=== PATIENT | female | born 1955 | race Caucasian/White ===

== ENCOUNTER → 2022-12-26 14:34 | Outpatient (CLI) | payer MEDICARE, SELFPAY ==
--- NOTE | 2022-12-26 14:36 | ECG_ITS ---
APPROVED REPORT Exam: Resting ECG HR:48 bpm ECG Measurements Heart Rate 48 AXES VT 175 P 61 QRSd 109 QRS 37 QT 435 T 65 QTc 401 Conclusion SINUS BRADYCARDIA BORDERLINE ECG UNCONFIRMED REPORT Electronically signed by : Vasile Solares MD 12/26/2022 20:20:11
== END ==
PROVIDERS: PCP Family Medicine; Visit Provider Specialist
DX: G47.30 Sleep apnea, unspecified (principal)
CPT/HCPCS: 93005; 94762

== ENCOUNTER → 2023-01-06 14:55 | Outpatient (CLI) | payer MEDICARE, SELFPAY ==
--- NOTE | 2023-01-06 15:00 | CA_ITS ---
FINAL REPORT TECHNIQUE: Color Doppler, duplex Doppler and newell scale sonography of the bilateral neck arterial vasculature was performed. Velocities were measured in the carotid arteries. Stenosis evaluation based on the validated velocity criteria. CLINICAL HISTORY: Left arm weakness, dizziness, possible TIA, HTN FINDINGS: The peak systolic velocity of the right common carotid artery is 95 cm/s. The peak systolic velocity of the right internal carotid artery is 124 cm/s and end diastolic velocity 47 cm/s. The ICA/CCA ratio is 1.3. A mild amount of plaque is present. The right external carotid artery is patent. The right vertebral artery is patent with antegrade flow. The peak systolic velocity of the left common carotid artery is 65 cm/s. The peak systolic velocity of the left internal carotid artery is 73 cm/s and end diastolic velocity 22 cm/s. The ICA/CCA ratio is 1.1. A mild amount of plaque is present. The left external carotid artery is patent.The left vertebral artery is patent with antegrade flow. IMPRESSION: Less than 50% bilateral carotid stenoses. Bilateral patent vertebral arteries with antegrade flow. If indicated, CTA or MRA could further evaluate. Reviewed, Interpreted and Dictated by Matt Bernstein III, MD Transcribed by Roxanna Guardado Authenticated and [facility]
--- NOTE | 2023-01-06 15:41 | MR_ITS ---
PROCEDURE INFORMATION: Exam: MR Head Without Contrast Exam date and time: 01/06/2023 4:02 PM Age: 67 years old Clinical indication: Weakness, extremity; Left; Additional info: Lt arm numbness, tingling TECHNIQUE: Imaging protocol: Magnetic resonance imaging of the head without contrast. COMPARISON: US CA CAROTID DUPLEX BI 01/06/2023 3:13 PM FINDINGS: Brain: No acute infarct. No hemorrhage. Involutional changes of the brain, commensurate with age. No mass effect. Cerebral ventricles: Normal. No ventriculomegaly. Bones/joints: Unremarkable. Paranasal sinuses: Normal as visualized. No acute sinusitis. Mastoid air cells: Normal as visualized. No mastoid effusion. Orbital cavities: Unremarkable. Vasculature: Abnormal flow void is present in the left transverse and sigmoid sinus extending inferiorly to involve the visualized left internal jugular vein in the neck. Soft tissues: Unremarkable. IMPRESSION: 1. No evidence of acute ischemia. 2. There is an abnormal flow void in the left transverse and sigmoid sinus as well as in the left internal jugular vein. This may be related to venous thrombosis. Recommend ultrasound of the neck to assess for jugular venous thrombus and CTV or MRV of the head to assess for dural venous sinus thrombosis.
--- NOTE | 2023-01-06 22:12 | PC.NURSE ---
speaking to AD at this time for critical finding on MRI.
--- NOTE | 2023-01-06 22:21 | PC.NURSE ---
Attempted to call pt at this time with no answer.
--- NOTE | 2023-01-06 22:29 | PC.NURSE ---
I spoke with the pt at this time and informed her that the radiologist reported a critical finding to MD Elisabeth. Elisabeth suggested the pt be evaluated immediately at or another facility with neuro available after hours. Pt verbalized understanding.
== END ==
PROVIDERS: PCP Family Medicine; Visit Provider Specialist
DX: R29.898 Other symptoms and signs involving the musculoskeletal system (principal); R29.810 Facial weakness; R20.2 Paresthesia of skin; R09.89 Other specified symptoms and signs involving the circulatory and respiratory systems
CPT/HCPCS: 70551; 93880

== ENCOUNTER → 2023-01-20 08:29 | Outpatient (CLI) | payer MEDICARE, SELFPAY ==
[2023-01-20 09:03] LABS: Blood Urea Nitrogen 18 mg/dl (7-17); Estimated Glomerular Filt Rate 55 ml/min (>60); GFR (African American) 67 ML/MIN (>60)
--- NOTE | 2023-01-20 13:48 | MR_ITS ---
FINAL REPORT CLINICAL HISTORY: Eval for venous thrombosis FINDINGS: Maximum intensity projection MRV images were reviewed. Superior sagittal sinus is widely patent. The transverse sinuses are patent. There is a dominant right sigmoid sinus. The internal cerebral veins are patent. IMPRESSION: No evidence of dural venous thrombosis. Reviewed, Interpreted and Dictated by Matt Bernstein III, MD Transcribed by Ashly Canas Authenticated and [facility]
== END ==
PROVIDERS: PCP Family Medicine; Visit Provider Specialist
DX: R29.898 Other symptoms and signs involving the musculoskeletal system (principal); R90.89 Other abnormal findings on diagnostic imaging of central nervous system
CPT/HCPCS: 36415; 70546; 82565; 84520; A9576

== ENCOUNTER → 2023-03-28 07:35 | Outpatient (CLI) | payer MEDICARE, SELFPAY ==
--- NOTE | 2023-03-28 07:35 | CT_ITS ---
FINAL REPORT CLINICAL HISTORY: Sinus thrombosis COMPARISON: MRV dated January 20, 2023 FINDINGS: Axial images of the head were obtained without and with contrast. Coronal reformatted images were also obtained. This study was performed with techniques to keep radiation doses as low as reasonably achievable (ALARA). Individualized dose reduction techniques using automated exposure control or adjustment of mA and/or kV according to the patient's size were employed. There is no evidence of intracranial hemorrhage or mass. There is no evidence of acute infarct. There is no evidence of shift of the midline structures. No skull abnormality is seen on the bone window images. No abnormal contrast enhancement is seen. There is no evidence of dural venous sinus thrombosis IMPRESSION: No acute intracranial abnormality identified. No evidence of dural venous sinus thrombosis Reviewed, Interpreted and Dictated by Matt Bernstein III, MD Transcribed by Harvey Acosta Authenticated and [facility]
[2023-03-28 07:58] LABS: Alanine Aminotransferase 21 U/L (12-78); Albumin Level 3.8 g/dl (3.5-5.0); Albumin/Globulin Ratio 1.5 (1.1-1.8); Alkaline Phosphatase 110 U/L (38-126); Anion Gap 7.5 mEq/L (5-15); Aspartate Amino Transferase 36 U/L (14-36); Bilirubin,Total 0.3 mg/dl (0.2-1.3); Blood Urea Nitrogen 32 mg/dl (7-17); Calcium 9.6 mg/dl (8.4-10.2); Carbon Dioxide 34 mmol/L (22.0-30.0); Chloride 101 mmol/L (98-107); Estimated Glomerular Filt Rate 37 ml/min (>60); GFR (African American) 45 ML/MIN (>60); Globulin 2.6 g/dL (1.3-3.2); Glucose 95 mg/dl (74-100); Potassium 3.5 mmoL/L (3.5-5.1); Sodium 139 mmol/L (136-145); Total Protein,Serum 6.4 g/dl (6.3-8.2)
== END ==
PROVIDERS: PCP Family Medicine; Visit Provider Specialist
DX: G08 Intracranial and intraspinal phlebitis and thrombophlebitis (principal); I65.21 Occlusion and stenosis of right carotid artery
CPT/HCPCS: 36415; 70470; 80053; Q9967

== ENCOUNTER → 2023-04-10 09:57 | Outpatient (CLI) | payer MEDICARE, SELFPAY ==
--- NOTE | 2023-04-10 09:57 | MR_ITS ---
FINAL REPORT TECHNIQUE: MR venography was performed both before and after the administration of intravenous contrast. 3D reconstructions were performed. CLINICAL HISTORY: HX Venous thrombosis. COMPARISON: None FINDINGS: Intracranial MR venogram: The major intracranial veins are unremarkable in appearance, without evidence of filling defects or areas of significant narrowing. No evidence of intracranial deep venous thrombosis is seen. IMPRESSION: Unremarkable intracranial MR venogram Reviewed, Interpreted and Dictated by Dilan Marie MD Transcribed by Sarah Musa Authenticated and [facility]
== END ==
PROVIDERS: PCP Family Medicine; Visit Provider Specialist
DX: G08 Intracranial and intraspinal phlebitis and thrombophlebitis (principal)
CPT/HCPCS: 70546; A9576

== ENCOUNTER → 2023-04-18 16:26 | Outpatient (CLI) | payer MEDICARE, SELFPAY ==
[2023-04-18 16:42] LABS: Basophils % 0.4 % (0.1-2.0); Eosinophils # 0.1 K/mm3 (0.0-0.4); Eosinophils % 1.3 % (0.1-12.0); Hematocrit 44.5 % (37.0-47.0); Hemoglobin 14.5 g/dL (12.2-16.2); Lymphocytes # 2.4 K/mm3 (0.7-4.5); Lymphocytes % 27.9 % (10-50); Mean Corpuscular HGB Conc 32.5 g/dL (31.8-35.4); Mean Corpuscular Hemoglobin 27.5 pg (27.0-31.2); Mean Corpuscular Volume 84.5 fl (81-99); Mean Platelet Volume 9.5 fl (7.4-10.4); Monocytes # 0.5 K/mm3 (0.1-1.0); Monocytes % 5.7 % (1.7-9.3); Neutrophils # 5.7 K/mm3 (1.8-7.8); Neutrophils % 64.7 % (37.0-80.0); Platelet Count 254 K/mm3 (142-424); Red Blood Count 5.27 M/mm3 (4.20-5.40); Red Cell Distribution Width 14.1 % (11.5-17.5); White Blood Count 8.7 K/mm3 (4.8-10.8)
[2023-04-18 18:29] LABS: Alanine Aminotransferase 27 U/L (12-78); Albumin Level 4.7 g/dl (3.5-5.0); Albumin/Globulin Ratio 1.7 (1.1-1.8); Alkaline Phosphatase 151 U/L (38-126); Anion Gap 14.3 mEq/L (5-15); Aspartate Amino Transferase 37 U/L (14-36); Bilirubin,Total 0.6 mg/dl (0.2-1.3); Blood Urea Nitrogen 21 mg/dl (7-17); Calcium 10.4 mg/dl (8.4-10.2); Carbon Dioxide 29 mmol/L (22.0-30.0); Chloride 99 mmol/L (98-107); Estimated Glomerular Filt Rate 62 ml/min (>60); GFR (African American) 75 ML/MIN (>60); Globulin 2.8 g/dL (1.3-3.2); Glucose 115 mg/dl (74-100); Potassium 3.3 mmoL/L (3.5-5.1); Sodium 139 mmol/L (136-145); Total Protein,Serum 7.5 g/dl (6.3-8.2)
[2023-04-18 18:55] LABS: Erythrocyte Sedimentation Rate 32 mm/hr (0-30); Thyroid Stimulating Hormone 1.14 uIU/mL (0.465-4.68)
[2023-04-18 19:31] LABS: Folate 9.17 ng/mL; Vitamin B12 759 pg/mL (239-931)
[2023-04-20 10:54] LABS: Rapid Plasma Reagin Ab Titer Non Reactive (NonRea<1:1)
[2023-05-05 08:32] LABS: Antinuclear Antibodies (ANA) NEGATIVE
== END ==
LOC: LAB 16:27
PROVIDERS: PCP Family Medicine; Visit Provider Specialist
DX: G08 Intracranial and intraspinal phlebitis and thrombophlebitis (principal); R41.3 Other amnesia; I10 Essential (primary) hypertension
CPT/HCPCS: 36415; 80053; 82607; 82746; 84443; 85025; 85651; 86038; 86225; 86235; 86593

== ENCOUNTER → 2023-04-20 10:45 | Outpatient (CLI) | payer MEDICARE, SELFPAY ==
--- NOTE | 2023-04-20 10:46 | MR_ITS ---
FINAL REPORT CLINICAL HISTORY: CEREBRAL VENOUS SINUS THROMBOSIS, headaches, dizziness COMPARISON: None FINDINGS: Multiple projection images of the neck venous vasculature were obtained without and with contrast. Internal jugular veins and sigmoid sinuses are patent. Multiple other veins are opacified. There is no evidence of major venous thrombosis. IMPRESSION: No evidence of major venous thrombosis. Reviewed, Interpreted and Dictated by Matt Bernstein III, MD Transcribed by Ginny Duenas Authenticated and [facility]
== END ==
PROVIDERS: PCP Family Medicine; Visit Provider Specialist
DX: G08 Intracranial and intraspinal phlebitis and thrombophlebitis (principal); R41.3 Other amnesia; R90.89 Other abnormal findings on diagnostic imaging of central nervous system
CPT/HCPCS: 70549; A9576

== ENCOUNTER → 2023-06-02 13:00 | Outpatient (CLI) | payer MEDICARE, SELFPAY ==
[2023-06-02 14:09] LABS: Alanine Aminotransferase 24 U/L (12-78); Albumin Level 3.8 g/dl (3.5-5.0); Albumin/Globulin Ratio 1.5 (1.1-1.8); Alkaline Phosphatase 114 U/L (38-126); Anion Gap 12.2 mEq/L (5-15); Aspartate Amino Transferase 33 U/L (14-36); Bilirubin,Total 0.5 mg/dl (0.2-1.3); Blood Urea Nitrogen 19 mg/dl (7-17); Calcium 9.8 mg/dl (8.4-10.2); Carbon Dioxide 29 mmol/L (22.0-30.0); Chloride 100 mmol/L (98-107); Chol/HDL Ratio 2.3 (1-3.5); Cholesterol 131 mg/dl (140-200); Estimated Glomerular Filt Rate 62 ml/min (>60); GFR (African American) 75 ML/MIN (>60); Globulin 2.6 g/dL (1.3-3.2); Glucose 110 mg/dl (74-100); HDL Cholesterol 56 mg/dl (40-60); Potassium 3.2 mmoL/L (3.5-5.1); Sodium 138 mmol/L (136-145); Total Protein,Serum 6.4 g/dl (6.3-8.2); Triglycerides 119 mg/dl (30-150); VLDL Cholesterol 24 mg/dL (0-40)
[2023-06-02 14:20] LABS: Direct LDL Cholesterol 59.12 mg/dL (100-129)
== END ==
PROVIDERS: PCP Family Medicine; Visit Provider Specialist
DX: I10 Essential (primary) hypertension; R94.5 Abnormal results of liver function studies; R42 Dizziness and giddiness
CPT/HCPCS: 36415; 80053; 80061; 93225

== ENCOUNTER → 2023-06-16 10:56 | Outpatient (CLI) | payer MEDICARE, SELFPAY ==
--- NOTE | 2023-06-16 10:57 | CA_ITS ---
APPROVED REPORT EXAM: Comprehensive 2D, Doppler, and color-flow Echocardiogram Otr Owner Operator: KYLEE Ibarra, RVS Ht: 5 ft 6 in Wt: 152lbs BSA: 1.78 HR: 89 bpm BP: 102/58 mmHg Rhythm: Irregualr Indications: diszziness, Hx-cerebral venous thrombosis, Pectus carinatum, Ex-smoker Echo Enhancing Agent Comments: TDS due to patient body habitus. 2D Dimensions IVSd 1.27 cm LVEF (Visual) 53.30 % PWd 1.00 cm LA Volume 71.70 mL LVDd 5.11 cm LA Volume Index 39.40 mL/m2 (M/F) 16-34 LVDs 3.70 cm Aortic Root 2.74 cm Left Atrium 3.04 cm LVOT 1.97 cm (M/F) 1.5-2.5 M-Mode Dimensions RVDd 2.00 cm (0.9-2.6) LA Diam 3.20 cm (1.9-4.0) LVDd 4.94 cm (3.5-5.7) Ao Diam 3.39 cm (2.0-3.7) LVDs 3.63 cm (3.5-5.7) IVSd 1.09 cm (0.6-1.1) PWd 1.03 cm (0.6-1.1) EF (Teich) 51.70% EPSs 0.61 cm FS 26.50% EDV (Teich) 115.00 mL ESV (Teich) 55.50 mL LV Diastology E Decel Time 203.00 (160-240 msec) E/A Ratio 0.67 MED E' 5.60 (< 7 cm/sec) MED A' 7.50 cm/s E'/MED E' Ratio 9.61 (>14) LAT E' 10.60 (<10 cm/sec) LAT A' 6.20 cm/s E/LAT E' Ratio 5.08 (>14) Aortic Valve LVOT Max 109.00 (70-110 cm/s) LVOT VTI 20.47 cm AoV Peak Arnoldo. 161.00 (50-130 cm/s) AO Peak GR. 10.40 mmHg AO Mean GR. 5.20 (<5 mmHg) AO VTI 30.89 (18-25 cm) KATHERINE (VTI) 2.02 (2.5-4.5 cm2) Mitral Valve MV A Velocity 80.00 (40-130 cm/s) E/A Ratio 0.67 MV Decel. Time 203.00 (160-240 ms) MV Mean Gr. 0.60 (<2mmHg) Pulmonary Valve PV Peak Velocity 88.00 (50-150 cm/s) Tricuspid Valve TR P. Velocity 212.00 cm/s RAP Estimate 10.00 mmHg RVSP 28.00 mmHg Left Ventricle The left ventricle is normal size. The left ventricular systolic function is normal. The left ventricular ejection fraction is within the normal range. There is normal left ventricular wall thickness. The septum appears asynchronous. Diastolic function is indeterminate. LVEF is 55%. Right Ventricle The right ventricle is normal size. The right ventricular systolic function is normal. Atria The left atrium is mildly dilated. The right atrium size is normal. Aortic Valve The aortic valve is mildly thickened. There is no aortic valvular stenosis. Trace aortic regurgitation. Mitral Valve The mitral valve is mildly thickened. No evidence of mitral valve stenosis. Trace mitral regurgitation. Tricuspid Valve The tricuspid valve leaflets are thin and pliable. Trace mitral regurgitation. RVSP is normal. Pulmonic Valve The pulmonary valve is normal in structure. Trace pulmonic regurgitation. Great Vessels The aortic root is normal in size. The ascending aorta is normal in size. IVC is normal in size and collapses >50% with inspiration. Pericardium There is no pericardial effusion. Other Information Study Quality: Technically Difficult Conclusion This was a technically difficult study in the setting of poor acoustic windows. Normal biventricular systolic function. Mildly dilated LA. No significant valvular stenosis or regurgitation. Electronically signed by : Mary Umana MD 06/18/2023 20:16:14
== END ==
PROVIDERS: PCP Family Medicine; Visit Provider Specialist
DX: G47.30 Sleep apnea, unspecified (principal); R42 Dizziness and giddiness
CPT/HCPCS: 93306

== ENCOUNTER → 2023-07-10 13:05 | Outpatient (POV) | payer MEDICARE, SELFPAY ==
[2023-07-10 14:07] VITALS: BP 114/43; PULSE 84; RESP 18; O2SAT 98; BMI 25.8
--- NOTE | 2023-07-10 14:22 | EXP.PAIN.OV ---
HPI Data of Consult Patient: new to practice Consult date: 07/10/23 Requesting Physician: Richard Willima CRNA Primary Care Provider: Edwardo Sheehan Family Provider: Edwardo Sheehan MD Consult Narrative Reason for consult: Lumbar back pain. Bilateral hip and leg radicular symptoms History of present illness: Ms. Marcial is a 68 year old female who comes our clinic today for initial evaluation regarding chronic low back pain she describes as constant, dull, sharp, stabbing. She rates her pain 9/10. Patient also complaining of bilateral posterior hip pain she describes as constant, dull, sharp, stabbing. Patient reports difficulty transitioning from sitting to standing. Patient has difficulty with ambulating secondary to posterior hip pain as well as lumbar back pain. Upon examination the patient has extreme point tenderness over the bilateral sacroiliac joints. Patient underwent left hip replacement December 2020. Patient doing very well in regards to the hip. However, the pain described above has become debilitating. Patient have difficulty with ADLs. Patient has difficulty transitioning from sitting to standing. Patient having difficulty ambulating. Patient reports she is unable to lie on her side left or right. Patient has positive bilateral Josue's test. Positive bilateral Gaenslen's test. Positive bilateral sacroiliac joint compression test. Patient has tried and failed conservative treatment such as physical therapy, ocular care technician, acetaminophen, NSAIDs, home exercise program. Patient's Johnie #[id number] has been reviewed and appropriate. Patient is taking alprazolam 0.5 mg 1 p.o. twice daily. Also, hydrocodone 5 mg 1 p.o. daily. These medications come from her PCP. Patient states the medication does decrease the pain to some degree. However, symptoms have intensified over the last few weeks CC: Richard William CRNA [facility] Disclaimer: The information contained in this section may have been updated after the patient was seen, as this information can be updated by other users. Medical History Bilateral bunions Surgical History H/O: hysterectomy History of cholecystectomy History of left hip replacement Family History Other Cancer Coronary artery disease Hypertension Social History (Updated 07/10/23 @ 14:08 by Matilde Lujan RN) Smoking Status: Former smoker alcohol intake: never substance use type: denies use current occupational status: retired Travel in the last 8 weeks: None household members: other housing: condominium marital status: Meds Home Medications and Allergies Home Medications Medication Instructions Recorded Confirmed Type lisinopril 10 1 tab PO DAILY 12/26/22 07/10/23 History mg-hydrochlorothiazide 12.5 mg tablet metoprolol succinate 25 mg 25 mg PO DAILY 12/26/22 07/10/23 History tablet,extended release 24 hr paroxetine HCl 20 mg tablet 20 mg PO DAILY 12/26/22 07/10/23 History alprazolam 0.5 mg tablet 0.5 mg PO BID PRN Anxiety 03/29/23 07/10/23 History atorvastatin 80 mg tablet 80 mg PO DAILY 03/29/23 07/10/23 History apixaban 5 mg tablet (Eliquis) 5 mg PO BID Cerebral venous 04/04/23 07/10/23 Rx thrombosis #60 tabs gabapentin 100 mg capsule 100 mg PO DAILY 05/30/23 07/10/23 History hydrocodone 5 mg-acetaminophen 325 1 tab PO DIRECTED PRN Pain 05/30/23 07/10/23 History mg tablet New Prescriptions to Start Prescriptions: Allergies Allergy/AdvReac Type Severity Reaction Status Date / Time No Known Allergies Allergy Verified 05/30/23 11:46 Objective Vital signs: Pulse Resp BP Pulse Ox O2 Del Method 84 18 114/43 L 98 Room Air 07/10/23 14:07 07/10/23 14:07 07/10/23 14:07 07/10/23 14:07 07/10/23 14:07 Assessment and Plan *Asses
== END ==
PROVIDERS: PCP Family Medicine; Visit Provider Nurse Anesthetist, Certified Registered
DX: M53.3 Sacrococcygeal disorders, not elsewhere classified (principal); M54.50 Low back pain, unspecified
CPT/HCPCS: 99202; G0463

== ENCOUNTER 2023-07-25 09:02 | Day surgery (SDC) | payer MEDICARE, SELFPAY ==
[2023-07-25 09:24] VITALS: BP 149/92; PULSE 107; RESP 18; TEMP 36.2; O2SAT 100; BMI 24.2
[2023-07-25 09:33] VITALS: BP 114/63; PULSE 98; RESP 20; O2SAT 97
[2023-07-25 09:38] VITALS: BP 114/63; PULSE 100; RESP 20; O2SAT 98
[2023-07-25 09:40] VITALS: BP 119/65; PULSE 81; RESP 16; O2SAT 100
--- NOTE | 2023-07-25 09:45 | P.PCN_ITS ---
Procedure Date: 07/25/23 Time: 09:45 Anesthesiologist:: Richard William CRNA Complications:: None Pre-procedure Diagnosis:: Bilateral sacroiliitis. Post-procedure Diagnosis:: Same. Indications for Procedure:: Very pleasant 68-year-old female comes our clinic today for bilateral sacroiliac joint injections. Patient has extreme point tenderness over the low lumbar back as well as bilateral posterior hip pain. She rates her pain 7/10. She has difficulty transitioning from sitting to standing. She reports difficulty ambulating secondary to low back pain. Procedure Details:: Procedure: Bilateral sacroiliac joint injections under fluoroscopy Informed consent was obtained and the risks and benefits of the procedure were explained to the patient.~ The patient was taken to the procedure room and noninvasive monitors were placed including a noninvasive blood pressure cuff and pulse oximeter.~ The patient was placed prone on the procedure table. Both hips were cleansed using Betadine as a cleansing solution. C-arm fluoroscopy was used to view the right sacroiliac joint.~ The skin and subcutaneous tissues were anesthetized using lidocaine 1.5% and a 25-gauge needle.~ After this, a 22-gauge spinal needle was inserted under fluoroscopic guidance into the inferior aspect of the right sacroiliac joint.~ Omnipaque dye was injected and good spread was seen throughout the joint.~ After this, approximately 5 mL of bupivacaine, 0.25% and Depo-Medrol, 40 mg was incrementally injected into the right sacroiliac joint. We then moved to the left sacroiliac joint.~ The skin and subcutaneous tissues were anesthetized using lidocaine 1.5% and a 25-gauge needle.~ After this, a 22- gauge spinal needle was inserted under fluoroscopic guidance into the inferior aspect of the left sacroiliac joint.~ Omnipaque dye was injected and good spread was seen throughout the joint. After this, approximately 5 mL of bupivacaine, 0.25% and Depo-Medrol, 40 mg was incrementally injected into the left sacroiliac joint.~ The patient tolerated the procedure well with no complications. The patient was observed in the Pain Clinic and then was discharged home neurologically intact. Plan and Disposition:: Patient was discharged without incident.
== END 2023-07-25 09:40 | disposition home or self-care (01) ==
PROVIDERS: PCP Family Medicine; Visit Provider Nurse Anesthetist, Certified Registered
DX: M46.1 Sacroiliitis, not elsewhere classified (principal)
CPT/HCPCS: 27096; G0260; J1040

== ENCOUNTER → 2023-08-07 11:24 | Outpatient (POV) | payer MEDICARE, SELFPAY ==
[2023-08-07 11:40] VITALS: BP 131/76; PULSE 88; RESP 18; O2SAT 98; BMI 24.2
--- NOTE | 2023-08-07 11:56 | EXP.PAIN.SOA ---
[facility] Pain Management SOAP Note Subjective:: Patient is a pleasant 68-year-old female who presents today for follow-up of bilateral SI injections on 07/25/2023. We are currently treating the patient for low back pain with bilateral hip pain, sacroiliitis. Today she rates her pain a 2 out of 10. Patient denies any new trauma or injury. Patient states she has had at least 60% improvement following these injections and feels like they are still providing additional relief. Patient does state her pain today is in her right knee and describes it as a aching, throbbing sensation that is worse with increased activity. Patient does state that the pain interferes with her ability perform activities of daily living such as cooking and cleaning. Patient states in the past she has had 1 intra-articular injection however it did not provide any additional relief. Patient states that her orthopedic doctor then submitted for the gel injections however insurance denied this. Patient denies any previous surgery in this joint. Patient is interested in any help we may be able to provide. Patient does also state that she has continued pain in her right leg however she believes this is related to her left leg being a little bit longer. Patient did have a left hip replacement back in December 2020 and since then states she will have increased pain with walking and often feels like she is uneven/unbalanced. Patient has been tried on [place] 5 mg and alprazolam 0.5 mg twice a day from outside providers. Her Johnie has been reviewed and is appropriate. Review of Systems: General: No recent weight changes, no fever, no sleep disturbances Respiratory: No cough, no shortness of air, no recurring pulmonary infections Cardiovascular/peripheral vascular: No chest pain, no palpitations, no edema, no shortness of breath Gastrointestinal: No new onset incontinence, normal bowel movements reported Genitourinary: No new onset incontinence Musculoskeletal: Right knee pain Psychiatric: [Normal mood/affect] Neurological: [Denies weakness in extremities], [denies balance issues] Objective:: Physical Exam: General: Alert and oriented x3, no acute distress, pleasant and cooperative Lungs: Respirations even and unlabored, symmetrical chest expansion Eyes: PERRL Musculoskeletal: Flexion and extension of right knee somewhat guarded secondary to pain, [antalgic gait noted] Neurological: Speech clear, no gross sensory deficit Assessment:: Low back pain with lumbar radiculopathy symptoms, bilateral hip pain, sacroiliitis, right knee pain Plan:: Patient is experiencing worsening pain in her right knee with limited range of motion. I have discussed with the patient that she may benefit from trigger point injections around her knee joint. Risk and benefits were discussed with the patient and she would like to proceed forward with this plan of care. Patient has tried and failed conservative therapy such as oral medications, heat and ice, topicals, physical therapy, at home exercise and stretching for longer than 6 weeks. I have also discussed with the patient that she may benefit from a shoe insert on her right foot to help with ambulation and worsening pain related to her length discrepancy. Patient will be scheduled for a right knee trigger point injections. Patient has been instructed to contact the clinic with any concerns before the next appointment. Dr. Forrester has reviewed this note and agrees with this plan of care. This note was dictated using voice recognition software and make contain errors or omissions. [facility] Disclaimer: The information contained in this section may have been updated after the patient was seen, as this information can be updated by other users. Medical History Bilateral bunions Surgical History H/O: hysterectomy History of cholecystectomy History of left hip replacem
== END ==
PROVIDERS: PCP Family Medicine; Visit Provider Nurse Practitioner Family
DX: M54.16 Radiculopathy, lumbar region (principal); M54.50 Low back pain, unspecified; M25.551 Pain in right hip; M25.552 Pain in left hip; M46.1 Sacroiliitis, not elsewhere classified; M25.561 Pain in right knee
CPT/HCPCS: 99212; G0463

== ENCOUNTER 2023-08-29 09:41 | Day surgery (SDC) | payer MEDICARE, SELFPAY ==
[2023-08-29 10:04] VITALS: BP 129/67; PULSE 79; RESP 16; TEMP 36.4; O2SAT 94; BMI 24.7
[2023-08-29 10:17] VITALS: BP 109/48; PULSE 73; O2SAT 94
[2023-08-29 10:19] VITALS: BP 109/48; PULSE 66; O2SAT 100
[2023-08-29 10:24] VITALS: BP 140/59; PULSE 71; RESP 16; O2SAT 94
--- NOTE | 2023-08-29 10:52 | EXP.PAIN.PRO ---
Procedure Date: 08/29/23 Time: 10:00 Anesthesiologist:: Richard William CRNA Complications:: None Pre-procedure Diagnosis:: Chronic right knee pain. DJD right knee. Myofascial pain right leg. Post-procedure Diagnosis:: Same. Indications for Procedure:: Patient is a pleasant 68-year-old female comes our clinic today with complaint of chronic right leg pain associated with right knee pain. Patient has had right intra-articular knee injections with minimal relief. She describes her right knee pain as constant, dull, aching. Patient complains of distal thigh pain as well as proximal tibial pain. She rates pain 8/10. Procedure Details:: Details of the procedure explained to the patient. Patient taken to procedure room placed in sitting position. The area over the right knee was cleansed using chlorhexidine's cleansing solution. Using a 22-gauge inch and half needle the distal quadriceps tendon was accessed medial and lateral. Each area was injected after negative aspiration with 3 cc of 1% lidocaine and 20 mg of Depo-Medrol. The same procedure was carried out over the proximal tibial tendon in 1 location. 3 cc of 1% lidocaine +20 mg epidural was injected. Patient tolerated procedure without difficulty. No complications. Plan and Disposition:: Patient was discharged without incident. Patient was reevaluated 10 minutes post procedure. She reports 100% improvement in terms of her overall right knee pain.
== END 2023-08-29 10:24 | disposition home or self-care (01) ==
PROVIDERS: PCP Family Medicine; Visit Provider Nurse Anesthetist, Certified Registered
DX: M17.11 Unilateral primary osteoarthritis, right knee (principal); M25.561 Pain in right knee; G89.29 Other chronic pain; M79.18 Myalgia, other site
CPT/HCPCS: 20551; J1040

== ENCOUNTER → 2023-09-20 11:00 | Outpatient (POV) | payer MEDICARE, SELFPAY ==
--- NOTE | 2023-09-20 11:12 | EXP.PAIN.SOA ---
[facility] Pain Management SOAP Note Subjective:: Patient is a pleasant 68-year-old female who presents today for follow-up of right knee trigger point injections on 08/29/2023. We are currently treating the patient for low back pain with bilateral hip pain, sacroiliitis, right knee pain. Today she rates her pain a 1 out of 10. Patient denies any new trauma or injury. Patient states she has had at least 75% improvement following these injections and feels like they are still providing additional relief. She states she has been able to increase her activity with decreased pain symptoms and feels overall more functional following this procedure. She does state that she still has trouble walking up stairs and feels like she has weakness along her left side. At her last visit we did discuss possibly getting a shoe insert for her right side due to feeling like she was an even or unbalanced and believed her left leg was longer than the right. Patient states she has gotten an insert and it did help significantly the first day. She states she did have additional tenderness the following day however she has started to get a little bit more used to this. She does also state that she has been experiencing worsening pain into her buttocks bilaterally. Patient does states she has some soreness to touch and that it frequently goes throughout her buttocks and into her upper legs. Patient does state the pain interferes with her ability to perform activities of daily living such as cooking and cleaning. She is interested if we can do anything for this pain. She did previously have an intra-articular injection however only had minimal relief. Patient was tried for gel injection but insurance denied this procedure. Patient does have a previous history of left hip arthroplasty. Patient has been tried on Fraser 5 mg in the past and is currently prescribed alprazolam 0.5 mg twice a day from outside providers. Her Johnie has been reviewed and is appropriate. Review of Systems: General: No recent weight changes, no fever, no sleep disturbances Respiratory: No cough, no shortness of air, no recurring pulmonary infections Cardiovascular/peripheral vascular: No chest pain, no palpitations, no edema, no shortness of breath Gastrointestinal: No new onset incontinence, normal bowel movements reported Genitourinary: No new onset incontinence Musculoskeletal: Bilateral buttocks pain Psychiatric: [Normal mood/affect] Neurological: [Denies weakness in extremities], [denies balance issues] Objective:: Physical Exam: General: Alert and oriented x3, no acute distress, pleasant and cooperative Lungs: Respirations even and unlabored, symmetrical chest expansion Eyes: PERRL Musculoskeletal: Flexion and extension of lumbar spine somewhat guarded secondary to pain, [antalgic gait noted] point tenderness along bilateral piriformis muscle Neurological: Speech clear, no gross sensory deficit Assessment:: Low back pain with bilateral hip pain, sacroiliitis, right knee pain Plan:: Patient has had significant improvement following her trigger point injections of her right knee and does not require any additional injection therapy in this joint at this time. I have discussed with the patient since she was experiencing point tenderness along her bilateral piriformis muscle that we can do trigger point injections at this location. Risk and benefits were discussed with patient and she would like to proceed forward with this plan of care. I will also order the patient a compounded cream.. Patient will be scheduled for bilateral piriformis muscle injections. Patient has been instructed to contact the clinic with any concerns before the next appointment. Dr. Forrester has reviewed this note and agrees with this plan of care. This note was dictated using voice recognition software and make contain errors or omissions. [facility] Disclaimer: The information contained in this section may have been updated after the patient was seen, as this information can be updated by other users. Medical History Bilateral bunions Surgical History H/O: hysterectomy History of cholecystectomy History of left hip replacement Family History Other Cancer Coronary artery disease Hypertension Social History Smoking Status: Former smoker alcohol intake: never substance use type: denies use current occupational status: retired Travel in the last 8 weeks: None household members: other housing: condominium marital status:
[2023-09-20 11:31] VITALS: BP 143/53; PULSE 84; RESP 18; O2SAT 96; BMI 24.2
== END ==
LOC: SC.PAIN 11:01
PROVIDERS: PCP Family Medicine; Visit Provider Nurse Practitioner Family
DX: M54.50 Low back pain, unspecified (principal); M25.551 Pain in right hip; M25.552 Pain in left hip; M46.1 Sacroiliitis, not elsewhere classified; M25.561 Pain in right knee
CPT/HCPCS: 99212; G0463

== ENCOUNTER → 2023-11-06 10:05 | Outpatient (POV) | payer MEDICARE, SELFPAY ==
[2023-11-06 11:13] VITALS: BP 128/76; PULSE 61; RESP 18; O2SAT 96; BMI 24.2
--- NOTE | 2023-11-06 12:13 | EXP.PAIN.SOA ---
[facility] Pain Management SOAP Note Subjective:: Patient is a pleasant 68-year-old female who presents today for follow-up. We are currently treating the patient for low back pain with bilateral hip pain, sacroiliitis, right knee pain. Today she rates her pain a 3 out of 10. Patient states that she is starting to experience more pain in and around her lower right buttocks. Patient states it is painful to touch. She states that the pain does interfere with her ability perform activities of daily living such as cooking and cleaning or prolonged sitting. Patient describes the pain as an aching, throbbing sensation that does radiate into all of her right buttocks area. Patient denies any problems on the left. Patient does continue to use her compounded cream with improvement however only temporarily. Patient is currently prescribed alprazolam 0.5 mg twice a day from an outside provider. Her Johnie has been reviewed and is appropriate. Review of Systems: General: No recent weight changes, no fever, no sleep disturbances Respiratory: No cough, no shortness of air, no recurring pulmonary infections Cardiovascular/peripheral vascular: No chest pain, no palpitations, no edema, no shortness of breath Gastrointestinal: No new onset incontinence, normal bowel movements reported Genitourinary: No new onset incontinence Musculoskeletal: Right buttocks pain Psychiatric: [Normal mood/affect] Neurological: [Denies weakness in extremities], [denies balance issues] Objective:: Physical Exam: General: Alert and oriented x3, no acute distress, pleasant and cooperative Lungs: Respirations even and unlabored, symmetrical chest expansion Eyes: PERRL Musculoskeletal: Flexion and extension of lumbar [spine] somewhat guarded secondary to pain, [antalgic gait noted] point tenderness along right piriformis muscle Neurological: Speech clear, no gross sensory deficit [facility] and open MRI April 30, 2022 MRI lumbar spine without contrast Findings: Grade 1 retrolisthesis of L1 on 2. There is grade 1 anterior listhesis of L3 on 4 and L4 on 5. There are postsurgical changes noted within the lumbar spine. There is ecstatic appearance and aneurysmal dilatation of the abdominal aorta that is incompletely assessed by the study. 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 L1-2: Small disc bulge with moderate articular facet disease and ligamentum flavum hypertrophy. Mild to moderate canal narrowing and moderate foraminal narrowing. L2-3: Concentric disc bulge with moderate articular facet disease and ligamentum flavum hypertrophy. Moderate to severe canal stenosis with moderate foraminal stenosis. L3-4: Disc osteophyte complex formation with advanced articular facet disease and ligamentum flavum hypertrophy. There is severe canal stenosis with fluid signal interposed between the articular facets which suggest a component of motion. L4-5: There is disc osteophyte complex formation with advanced articular facet disease and ligamentum flavum hypertrophy. Moderate canal stenosis moderate right foraminal narrowing. Mild left foraminal narrowing. Mild to moderate canal narrowing. There is suspected laminectomy defect. L5-S1: Disc osteophyte complex formation. Articular facet disease. Moderate right and mild to moderate left foraminal narrowing. Canal is patent. Suspected laminotomy defect. Assessment:: Low back pain with bilateral hip pain, sacroiliitis, right knee pain, right piriformis inflammation Plan:: Patient is experiencing worsening pain in and around her right buttocks with point tenderness at her right piriformis muscle. I have discussed with the patient that she may benefit from a right piriformis injection. Risk and benefits were discussed with the patient and she would like to proceed forward with this plan of care. I have also talked with the patient regarding her previous lumbar imaging and we will reach back out to [facility] and see if we can get a copy of this. Patient will be scheduled for a right piriformis muscle injection. Patient has been instructed to contact the clinic with any concerns before the next appointment. Dr. Forrester has reviewed this note and agrees with this plan of care. This note was dictated using voice recognition software and make contain errors or omissions. [facility] Disclaimer: The information contained in this section may have been updated after the patient was seen, as this information can be updated by other users. Medical History Bilateral bunions Surgical History H/O: hysterectomy History of cholecystectomy History of left hip replacement Family History Other Cancer Coronary artery disease Hypertension Social History Smoking Status: Former smoker alcohol intake: never substance use type: denies use current occupational status: retired Travel in the last 8 weeks: None household members: other housing: condominium marital status:
== END ==
LOC: SC.PAIN 10:06
PROVIDERS: PCP Family Medicine; Visit Provider Nurse Practitioner Family
DX: M54.50 Low back pain, unspecified (principal); M25.551 Pain in right hip; M25.552 Pain in left hip; M46.1 Sacroiliitis, not elsewhere classified; M25.561 Pain in right knee; M79.18 Myalgia, other site
CPT/HCPCS: 99212; G0463

== ENCOUNTER 2023-11-28 11:23 | Day surgery (SDC) | payer MEDICARE, SELFPAY ==
[2023-11-28 11:44] VITALS: BP 156/70; PULSE 69; RESP 20; TEMP 36.4; O2SAT 96; BMI 25.0
--- NOTE | 2023-11-28 11:57 | P.PCN_ITS ---
Procedure Date: 11/28/23 Time: 11:45 Anesthesiologist:: Richard William CRNA Complications:: None Pre-procedure Diagnosis:: Right piriformis syndrome. Post-procedure Diagnosis:: Same. Indications for Procedure:: Patient is a very pleasant 68-year-old female comes our clinic today with right piriformis syndrome pain. She complains of right buttock pain that intensifies with ambulation and/or sitting. Patient also reports difficulty transitioning from sitting to standing. Patient has also had right sacroiliitis in the past with right SI joint injection which has been very helpful. She rates her pain 7/10. Procedure Details:: Details of the procedure explained to the patient. The patient taken procedure and placed in the prone position on fluoroscopy table. The over the right buttock was cleansed using chlorhexidine as a cleansing solution. Using a 22- gauge 3-1/2 inch needle the right piriformis muscle was accessed with ease using fluoroscopy guidance. Needle position was confirmed using 0.25 mL of contrast dye with a lateral spread. After negative aspiration 3 cc of 1% lidocaine +20 mg of Depo-Medrol was injected. At the same time the needle was inserted into the lower one third of the right SI joint. 3 cc of 1% lidocaine +20 mg of Depo- Medrol was injected. Patient tolerated procedure without difficulty. There are no complications. Plan and Disposition:: Patient was discharged out incident.
[2023-11-28 12:00] VITALS: BP 150/67; PULSE 79; RESP 18; O2SAT 98
[2023-11-28] MEDS: methylPREDNISolone ACETATE 80MG/ML VIAL 80 MG (12:12)
[2023-11-28] MEDS: LIDOCAINE 1% 5ML PF VIAL 5 ML (12:12)
[2023-11-28 12:13] VITALS: BP 112/88; PULSE 88; RESP 18; O2SAT 99
[2023-11-28] MEDS: BUPIVACAINE 0.25% 10ML INJ 25 MG IJ (12:13)
[2023-11-28 12:15] VITALS: BP 112/88; PULSE 88; RESP 18; O2SAT 99
== END 2023-11-28 12:00 | disposition home or self-care (01) ==
PROVIDERS: PCP Family Medicine; Visit Provider Nurse Anesthetist, Certified Registered
DX: G57.01 Lesion of sciatic nerve, right lower limb (principal); M79.18 Myalgia, other site; M46.1 Sacroiliitis, not elsewhere classified
CPT/HCPCS: 20552; 27096; 77002; G0260; J1040

== ENCOUNTER 2023-12-13 11:19 | Outpatient (POV) | payer MEDICARE, SELFPAY ==
--- NOTE | 2023-12-13 11:39 | A.OFFVIS_ITS ---
[facility] Pain Management SOAP Note Subjective:: Patient is a pleasant 68-year-old female who presents today for follow-up of his right piriformis muscle injection on 11/28/2023. Today she rates her pain a 2 out of 10. Patient denies any new trauma or injury. She does state that she has had at least 70% relief following this injection and feels like it is still helping. Patient does state that she still will occasionally have right-sided hip pain and feels like she cannot stand up straight due to the pain within her joint. Patient does states she feels like she has more arthritis and that she may benefit from a replacement at a later date however she is not necessarily interested in that option at this time. Patient is still using her compounded cream with some improvement as well as is prescribed alprazolam from an outside provider. Her Johnie has been reviewed and is appropriate. Review of Systems: General: No recent weight changes, no fever, no sleep disturbances Respiratory: No cough, no shortness of air, no recurring pulmonary infections Cardiovascular/peripheral vascular: No chest pain, no palpitations, no edema, no shortness of breath Gastrointestinal: No new onset incontinence, normal bowel movements reported Genitourinary: No new onset incontinence Musculoskeletal: Right hip pain Psychiatric: [Normal mood/affect] Neurological: [Denies weakness in extremities], [denies balance issues] Objective:: Physical Exam: General: Alert and oriented x3, no acute distress, pleasant and cooperative Lungs: Respirations even and unlabored, symmetrical chest expansion Eyes: PERRL Musculoskeletal: Flexion and extension of right hip somewhat guarded secondary to pain, [antalgic gait noted] Neurological: Speech clear, no gross sensory deficit Assessment:: Bilateral hip pain, sacroiliitis, right knee pain, right piriformis syndrome Plan:: Patient has had significant improvement following her piriformis muscle injection and does not require any additional injection therapy at this time. I have counseled the patient that in future she may benefit from a right hip intra-articular injection. Risk and benefits were discussed with the patient we will follow-up with this at future visits. Patient will return to clinic in 1 month for reevaluation of symptoms and plan of care. Patient has been instructed to contact the clinic with any concerns before the next appointment. Dr. Forrester has reviewed this note and agrees with this plan of care. This note was dictated using voice recognition software and make contain errors or omissions. [facility] Disclaimer: The information contained in this section may have been updated after the patient was seen, as this information can be updated by other users. Medical History Bilateral bunions Surgical History H/O: hysterectomy History of cholecystectomy History of left hip replacement Family History Other Cancer Coronary artery disease Hypertension Social History (Updated 11/28/23 @ 11:45 by Kacie Phillips RN) Smoking Status: Former smoker alcohol intake: never substance use type: denies use current occupational status: retired Travel in the last 8 weeks: None household members: other housing: condominium marital status:
[2023-12-13 14:24] VITALS: BP 135/48; PULSE 66; RESP 20; O2SAT 97; BMI 24.0
== END 2023-12-13 23:59 ==
LOC: SC.PAIN 11:20
PROVIDERS: PCP Family Medicine; Visit Provider Nurse Practitioner Family
DX: M25.551 Pain in right hip (principal); M25.552 Pain in left hip; M46.1 Sacroiliitis, not elsewhere classified; M25.561 Pain in right knee; G57.01 Lesion of sciatic nerve, right lower limb
CPT/HCPCS: 99212; G0463

== ENCOUNTER 2024-01-10 13:47 | Outpatient (POV) | payer MEDICARE, SELFPAY ==
[2024-01-10 13:57] VITALS: BP 148/59; PULSE 68; RESP 16; O2SAT 97; BMI 25.8
--- NOTE | 2024-01-10 14:02 | A.OFFVIS_ITS ---
[facility] Pain Management SOAP Note Subjective:: Patient is a pleasant 48-year-old female who presents today for 1 month follow- up. Today she rates her pain a 3 out of 10 however she states the pain will get worse with increased activity. Patient does state that it is her right buttocks area that is bothering her again. Patient did previously have a right piriformis muscle injection back in the middle of November that did provide 70% relief up until the last week or so. Patient does states she is interested in repeating this injection as her pain is starting to interfere with her ability to perform activities of daily living such as cooking and cleaning. Patient denies any new trauma or injury. Patient does state that she is also starting physical therapy on Monday next week to hopefully help with her overall weakness and instability when she is walking. Patient does states she still feels like she has one leg longer than the other and that often times she cannot use her shoe inserts because the shoes do not have enough room for this. Patient is prescribed compounded cream from our office and states this does continue to provide improvement. She is prescribed alprazolam from an outside provider. Her Johnie has been reviewed and is appropriate. Review of Systems: General: No recent weight changes, no fever, no sleep disturbances Respiratory: No cough, no shortness of air, no recurring pulmonary infections Cardiovascular/peripheral vascular: No chest pain, no palpitations, no edema, no shortness of breath Gastrointestinal: No new onset incontinence, normal bowel movements reported Genitourinary: No new onset incontinence Musculoskeletal: Right buttocks pain Psychiatric: [Normal mood/affect] Neurological: [Denies weakness in extremities], [denies balance issues] Objective:: Physical Exam: General: Alert and oriented x3, no acute distress, pleasant and cooperative Lungs: Respirations even and unlabored, symmetrical chest expansion Eyes: PERRL Musculoskeletal: Flexion and extension of lumbar [spine] somewhat guarded secondary to pain, [antalgic gait noted] point tenderness along right piriformis muscle Neurological: Speech clear, no gross sensory deficit Assessment:: Right piriformis syndrome, bilateral hip pain, sacroiliitis, right lower leg pain Plan:: Patient is starting to experience worsening pain in her right buttocks with limited range of motion of her lumbar spine and point tenderness at the right piriformis muscle. Patient did previously get 70% relief with her last piriformis injection lasting approximately a month and a half. I have discussed the risk and benefits regarding repeating this injection and she would like to proceed forward with this plan of care. We will schedule the patient for a right piriformis injection. Patient has been instructed to contact the clinic with any concerns before the next appointment. Dr. Forrester has reviewed this note and agrees with this plan of care. This note was dictated using voice recognition software and make contain errors or omissions. [facility] Disclaimer: The information contained in this section may have been updated after the patient was seen, as this information can be updated by other users. Medical History Bilateral bunions Surgical History H/O: hysterectomy History of cholecystectomy History of left hip replacement Family History Other Cancer Coronary artery disease Hypertension Social History Smoking Status: Former smoker alcohol intake: never substance use type: denies use current occupational status: other Travel in the last 8 weeks: None household members: other housing: condominium marital status:
== END 2024-01-10 23:59 | disposition home or self-care (01) ==
LOC: SC.PAIN 13:48
PROVIDERS: PCP Family Medicine; Visit Provider Nurse Practitioner Family
DX: G57.01 Lesion of sciatic nerve, right lower limb (principal); M25.551 Pain in right hip; M25.552 Pain in left hip; M46.1 Sacroiliitis, not elsewhere classified; M79.661 Pain in right lower leg
CPT/HCPCS: 99212; G0463

== ENCOUNTER 2024-01-30 09:48 | Day surgery (SDC) | payer MEDICARE, SELFPAY ==
[2024-01-30 10:01] VITALS: BP 146/70; PULSE 87; RESP 18; TEMP 36.2; O2SAT 96; BMI 24.8
[2024-01-30 10:05] VITALS: BP 141/70; PULSE 82; RESP 18; O2SAT 95
[2024-01-30] MEDS: BUPIVACAINE 0.25% 10ML INJ 25 MG IJ (10:05)
[2024-01-30] MEDS: methylPREDNISolone ACETATE 80MG/ML VIAL 80 MG (10:05)
[2024-01-30] MEDS: LIDOCAINE 1% 5ML PF VIAL 5 ML (10:05)
[2024-01-30 10:06] VITALS: BP 141/70; PULSE 82; RESP 18; O2SAT 95
[2024-01-30 10:07] VITALS: BP 145/67; PULSE 75; RESP 16; O2SAT 96
--- NOTE | 2024-01-30 10:09 | EXP.PAIN.PRO ---
Procedure Date: 01/30/24 Time: 10:00 Anesthesiologist:: Richard William CRNA Complications:: None Pre-procedure Diagnosis:: Right piriformis syndrome. Post-procedure Diagnosis:: Same. Indications for Procedure:: Patient is a pleasant 68-year-old female comes our clinic today for right piriformis injection. Patient reports significant right buttock pain when sitting. Also reports difficulty transitioning from sitting to standing. Ambulation increases pain on the right. Patient has extreme point tenderness over the right buttock. Procedure Details:: Details of the procedure explained to the patient. The patient taken procedure room placed in the prone position on the fluoroscopy table. They over the right buttock was cleaned using chlorhexidine as a cleansing solution. After identifying with palpation the exact point of pain a 22-gauge 3 and half inch spinal needle was used to access the right piriformis muscle. After negative aspiration 5 cc of a solution containing 0.25% Marcaine/1% lidocaine/40 mg of Depo-Medrol was injected without difficulty. Patient tolerated procedure without difficulty. There are no complications. Plan and Disposition:: Patient was discharged without incident.
== END 2024-01-30 10:07 | disposition home or self-care (01) ==
PROVIDERS: PCP Family Medicine; Visit Provider Nurse Anesthetist, Certified Registered
DX: G57.01 Lesion of sciatic nerve, right lower limb (principal); M79.18 Myalgia, other site
CPT/HCPCS: 20552; 77002; J1010

== ENCOUNTER 2024-02-16 10:08 | Outpatient (POV) | payer MEDICARE, SELFPAY ==
[2024-02-16 10:23] VITALS: BP 155/69; PULSE 70; RESP 16; O2SAT 97; BMI 25.8
--- NOTE | 2024-02-16 11:15 | A.OFFVIS_ITS ---
[facility] Pain Management SOAP Note Subjective:: This patient is a pleasant 68-year-old female comes our clinic today for follow- up visit after receiving a right piriformis injection. She reports 80% improvement terms of her overall right buttock pain. Her main complaint today is right lateral knee pain that she describes as constant, dull, aching, sharp and stabbing. Upon examination she has extreme point tenderness over the lateral border of the right knee. Patient is requesting to see Dr. Mirza here at [facility]. We will set this up for her. I discussed in detail with the patient regarding her knee pain. I prefer she received a consultation from orthopedic surgery prior to us treating her knee. She agrees. She continues taking NSAIDs and Tylenol for the pain. She is currently enrolled in physical therapy at [facility]. This is mainly for stability with ambulation and standing. However, according to the patient they are working with her right knee as well. Objective:: Patient is awake alert [place] x 3. No acute distress. Flexion-extension cervical lumbar spine normal. Deep tendon reflexes upper lower extremities normal. Motor strength upper and lower extremities normal. There is no gross sensory deficit. Gait is normal. Assessment:: Right piriformis syndrome. DJD right knee. Chronic right knee pain. Plan:: We will set up the referral to Dr. Mirza. [facility] Disclaimer: The information contained in this section may have been updated after the patient was seen, as this information can be updated by other users. Medical History Bilateral bunions Surgical History H/O: hysterectomy History of cholecystectomy History of left hip replacement Family History Other Cancer Coronary artery disease Hypertension Social History Smoking Status: Former smoker alcohol intake: never substance use type: denies use current occupational status: other Travel in the last 8 weeks: None household members: other housing: condominium marital status:
== END 2024-02-16 23:59 | disposition home or self-care (01) ==
LOC: SC.PAIN 10:09
PROVIDERS: PCP Family Medicine; Visit Provider Nurse Anesthetist, Certified Registered
DX: G57.01 Lesion of sciatic nerve, right lower limb (principal); M17.11 Unilateral primary osteoarthritis, right knee; M25.561 Pain in right knee; G89.29 Other chronic pain
CPT/HCPCS: 99212; G0463

== ENCOUNTER 2024-05-30 13:41 | Outpatient (POV) | payer MEDICARE, SELFPAY ==
[2024-05-30 14:15] VITALS: BP 157/96; PULSE 79; RESP 16; O2SAT 96; BMI 25.0
--- NOTE | 2024-05-30 14:26 | A.OFFVIS_ITS ---
[facility] Disclaimer: The information contained in this section may have been updated after the patient was seen, as this information can be updated by other users. Medical History Bilateral bunions Surgical History H/O: hysterectomy History of cholecystectomy History of left hip replacement Family History Other Cancer Coronary artery disease Hypertension Social History Smoking Status: Former smoker alcohol intake: never substance use type: denies use current occupational status: other Travel in the last 8 weeks: None household members: other housing: condominium marital status: PM Subjective & Objective Subjective Subjective:: Patient is a pleasant 69-year-old female who presents today for 3-month follow- up. Today she rates her pain a 2 out of 10 however states as the day goes on it will get up to at least a 6 out of 10. Patient states the pain is all in her low back and bilateral hips. Patient describes it as an aching, throbbing sensation that does interfere with her ability perform activities of daily living such as cooking and cleaning. Patient does also state that she still has pain in and around her buttocks area bilaterally. Patient does state that she did end up getting the gel injections from [facility] and that it does seem like it may have helped a little however this was just done in March and they did explain that it may take some time for really to kick in. Patient does states she would like to see if we can do anything to help the overall low back and hip pain she has been experiencing. Patient has tried and failed conservative therapy including continued at home stretching exercise for longer than 12 weeks. She is prescribed alprazolam from an outside provider and compounded cream from our office. Her Johnie has been reviewed and is appropriate. Review of Systems: General: No recent weight changes, no fever, no sleep disturbances Respiratory: No cough, no shortness of air, no recurring pulmonary infections Cardiovascular/peripheral vascular: No chest pain, no palpitations, no edema, no shortness of breath Gastrointestinal: No new onset incontinence, normal bowel movements reported Genitourinary: No new onset incontinence Musculoskeletal: Low back pain, bilateral hip pain, buttocks pain Psychiatric: [Normal mood/affect] Neurological: [Denies weakness in extremities], [denies balance issues] Pain at rest (0-10 scale): 6 Objective Objective:: Physical Exam: General: Alert and oriented x3, no acute distress, pleasant and cooperative Lungs: Respirations even and unlabored, symmetrical chest expansion Eyes: PERRL Musculoskeletal: Flexion and extension of lumbar [spine] somewhat guarded secondary to pain, [antalgic gait noted] point tenderness along bilateral SIs with positive bilateral Josue's, Gin's, Gaenslen's, compression and distraction exam Neurological: Speech clear, no gross sensory deficit Has patient had previous pain injection?: No Conservative treatment options previously tried: Home exercise plan Length of treatment: Longer than 12 weeks Meds Home Medications and Allergies Home Medications ?Medication ?Instructions ?Recorded ?Confirmed ?Type lisinopril 10 1 tab PO DAILY 12/26/22 05/30/24 History mg-hydrochlorothiazide 12.5 mg tablet paroxetine HCl 20 mg tablet 20 mg PO DAILY 12/26/22 05/30/24 History alprazolam 0.5 mg tablet 0.5 mg PO BID PRN Anxiety 03/29/23 05/30/24 History cholecalciferol (vitamin D3) 125 125 mcg PO DAILY 07/11/23 05/30/24 History mcg (5,000 unit) capsule New Prescriptions to Start Prescriptions: Allergies Allergy/AdvReac Type Severity Reaction Status Date / Time No Known Allergies Allergy Verified 01/30/24 10:02 Assessment and Plan *Assessment and plan (1) Bilateral sacroiliitis: Status: Acute Category: Medical Code(s): M46.1 - Sacroiliitis, not elsewhere classified Plan Patient is experiencing significant pain throughout her low back and bilateral hips. Patient did have extreme point tenderness along her left SI and point tenderness along the right with positive bilateral Josue's, Gin's, Gaenslen's, compression and distraction exam. I did discuss with the patient that she may benefit from repeat SI injections. Patient did have these injections in the past and states that they did provide upwards of 80% relief and really has lasted up until the last few weeks. Patient did have these injections back in July 2023. Patient has tried and failed conservative therapy including continued at home stretching exercise for longer than 12 weeks. We will submit for bilateral SI injections under fluoroscopy. Patient has been instructed to contact the clinic with any concerns before the next appointment. Dr. Forrester has reviewed this note and agrees with this plan of care. This note was dictated using voice recognition software and make contain errors or omissions. All injections are used with Lidocaine or Bupivacaine and Depo Medrol.
== END 2024-05-30 23:59 | disposition home or self-care (01) ==
LOC: SC.PAIN 13:42
PROVIDERS: PCP Family Medicine; Visit Provider Nurse Practitioner Family
DX: M46.1 Sacroiliitis, not elsewhere classified (principal); Z87.891 Personal history of nicotine dependence; Z73.89 Other problems related to life management difficulty
CPT/HCPCS: 99212; G0463

== ENCOUNTER 2024-06-18 09:00 | Day surgery (SDC) | payer MEDICARE, SELFPAY ==
[2024-06-18 09:06] VITALS: BP 152/62; PULSE 70; RESP 18; TEMP 36.6; O2SAT 98; BMI 25.4
[2024-06-18] MEDS: LIDOCAINE 1% 5ML PF VIAL 5 ML (09:24)
[2024-06-18] MEDS: methylPREDNISolone ACETATE 80MG/ML VIAL 80 MG (09:24)
[2024-06-18] MEDS: BUPIVACAINE 0.25% 10ML INJ 25 MG IJ (09:24)
[2024-06-18 09:25] VITALS: BP 167/52; PULSE 79; RESP 18; O2SAT 98
[2024-06-18 09:28] VITALS: BP 147/75; BP 167/52; PULSE 69; PULSE 79; RESP 18; O2SAT 98
--- NOTE | 2024-06-18 09:32 | P.PCN_ITS ---
Procedure Date: 06/18/24 Time: 09:15 Anesthesiologist:: Richard William CRNA Complications:: None Pre-procedure Diagnosis:: Degenerative disc lumbar spine multilevels. Lumbar radiculopathy. Bilateral sacroiliitis Post-procedure Diagnosis:: Same. Indications for Procedure:: Patient is a very pleasant 69-year-old female comes our clinic today for repeat bilateral sacroiliac joint injection of cortisone and local anesthetic. Patient reports significant improvement terms of her overall low lumbar back symptoms and posterior hip pain bilaterally after previous injections in the sacroiliac joints. She reports having difficulty transitioning from sitting to standing. Difficulty sitting for any length of time. Ambulation increases the pain to some degree. She rates her pain 7/10. Procedure Details:: Procedure: Bilateral sacroiliac joint injections under fluoroscopy Informed consent was obtained and the risks and benefits of the procedure were explained to the patient.~ The patient was taken to the procedure room and noninvasive monitors were placed including a noninvasive blood pressure cuff and pulse oximeter.~ The patient was placed prone on the procedure table. Both hips were cleansed using Betadine as a cleansing solution. C-arm fluoroscopy was used to view the right sacroiliac joint.~ The skin and subcutaneous tissues were anesthetized using lidocaine 1.5% and a 25-gauge needle.~ After this, a 22-gauge spinal needle was inserted under fluoroscopic guidance into the inferior aspect of the right sacroiliac joint.~ Omnipaque dye was injected and good spread was seen throughout the joint.~ After this, approximately 5 mL of bupivacaine, 0.25% and Depo-Medrol, 40 mg was incrementally injected into the right sacroiliac joint. We then moved to the left sacroiliac joint.~ The skin and subcutaneous tissues were anesthetized using lidocaine 1.5% and a 25-gauge needle.~ After this, a 22- gauge spinal needle was inserted under fluoroscopic guidance into the inferior aspect of the left sacroiliac joint.~ Omnipaque dye was injected and good spread was seen throughout the joint. After this, approximately 5 mL of bupivacaine, 0.25% and Depo-Medrol, 40 mg was incrementally injected into the left sacroiliac joint.~ The patient tolerated the procedure well with no complications. The patient was observed in the Pain Clinic and then was discharged home neurologically intact. Plan and Disposition:: Patient was discharged without incident.
== END 2024-06-18 09:28 | disposition home or self-care (01) ==
PROVIDERS: PCP Family Medicine; Visit Provider Nurse Anesthetist, Certified Registered
DX: M46.1 Sacroiliitis, not elsewhere classified (principal); M51.16 Intervertebral disc disorders with radiculopathy, lumbar region
CPT/HCPCS: 27096; G0260; J1010

== ENCOUNTER 2024-07-10 11:25 | Outpatient (POV) | payer MEDICARE, SELFPAY ==
--- NOTE | 2024-07-10 12:10 | EXP.PAIN.SOA ---
[facility] Disclaimer: The information contained in this section may have been updated after the patient was seen, as this information can be updated by other users. Medical History Bilateral bunions Surgical History H/O: hysterectomy History of cholecystectomy History of left hip replacement Family History Other Cancer Coronary artery disease Hypertension Social History Smoking Status: Former smoker alcohol intake: never substance use type: denies use current occupational status: other Travel in the last 8 weeks: None household members: other housing: condominium marital status: PM Subjective & Objective Subjective Subjective:: Patient is a pleasant 69-year-old female who presents today for follow-up of bilateral SI injections on 06/18/2024. She rates her pain in that area a 2 out of 10. She states she has at least had 80% following those injections and feels like it still helping. She does however states she has been having more aching sensations all along her right hip on the lateral side and is very tender to touch. She rates this pain a 6 out of 10. Patient denies any new injury or trauma. She does state the pain is interfering with her ability to perform activities of daily living such as cooking and cleaning. Patient is prescribed compounded cream from our office. Her Johnie has been reviewed and is appropriate. Review of Systems: General: No recent weight changes, no fever, no sleep disturbances Respiratory: No cough, no shortness of air, no recurring pulmonary infections Cardiovascular/peripheral vascular: No chest pain, no palpitations, no edema, no shortness of breath Gastrointestinal: No new onset incontinence, normal bowel movements reported Genitourinary: No new onset incontinence Musculoskeletal: Right hip pain Psychiatric: [Normal mood/affect] Neurological: [Denies weakness in extremities], [denies balance issues] Pain at rest (0-10 scale): 6 Objective Objective:: Physical Exam: General: Alert and oriented x3, no acute distress, pleasant and cooperative Lungs: Respirations even and unlabored, symmetrical chest expansion Eyes: PERRL Musculoskeletal: Flexion and extension of right hip somewhat guarded secondary to pain, [antalgic gait noted] point tenderness along right greater trochanteric bursa Neurological: Speech clear, no gross sensory deficit Has patient had previous pain injection?: Yes Percent improvement in pain since last injection: 80% Conservative treatment options previously tried: Home exercise plan Length of treatment: Longer than 12 weeks Meds Home Medications and Allergies Home Medications ?Medication ?Instructions ?Recorded ?Confirmed ?Type lisinopril 10 1 tab PO DAILY 12/26/22 06/18/24 History mg-hydrochlorothiazide 12.5 mg tablet paroxetine HCl 20 mg tablet 20 mg PO DAILY 12/26/22 06/18/24 History alprazolam 0.5 mg tablet 0.5 mg PO BID PRN Anxiety 03/29/23 06/18/24 History cholecalciferol (vitamin D3) 125 125 mcg PO DAILY 07/11/23 06/18/24 History mcg (5,000 unit) capsule New Prescriptions to Start Prescriptions: Allergies Allergy/AdvReac Type Severity Reaction Status Date / Time No Known Allergies Allergy Verified 06/18/24 09:08 Assessment and Plan *Assessment and plan (1) Greater trochanteric bursitis of right hip: Status: Acute Category: Medical Code(s): M70.61 - Trochanteric bursitis, right hip Plan Patient is experiencing worsening pain in and around her right hip with point tenderness at her right greater trochanteric bursa. I did discuss with patient that she may benefit from bursa injection. Risk and benefits were discussed with the patient and she would like to proceed forward with this plan of care. Patient has tried and failed conservative therapy including continued at home stretching exercise for longer than 12 weeks. Patient will be scheduled for right greater trochanteric bursa injection under fluoroscopy. Patient has been instructed to contact the clinic with any concerns before the next appointment. Dr. Forrester has reviewed this note and agrees with this plan of care. This note was dictated using voice recognition software and make contain errors or omissions. All injections are used with Lidocaine or Bupivacaine and Depo Medrol.
[2024-07-10 14:02] VITALS: BP 171/77; PULSE 78; RESP 16; O2SAT 98; BMI 25.0
== END 2024-07-10 23:59 | disposition home or self-care (01) ==
LOC: SC.PAIN 11:26
PROVIDERS: PCP Family Medicine; Visit Provider Nurse Practitioner Family
DX: M70.61 Trochanteric bursitis, right hip (principal); Z87.891 Personal history of nicotine dependence; Z73.89 Other problems related to life management difficulty
CPT/HCPCS: 99212; G0463

== ENCOUNTER 2024-07-23 13:48 | Day surgery (SDC) | payer MEDICARE, SELFPAY ==
[2024-07-23 14:00] VITALS: BP 133/64; PULSE 81; RESP 16; TEMP 36.5; O2SAT 94; BMI 25.0
[2024-07-23] MEDS: methylPREDNISolone ACETATE 80MG/ML VIAL 80 MG (14:11)
[2024-07-23] MEDS: LIDOCAINE 1% 5ML PF VIAL 5 ML (14:12)
[2024-07-23] MEDS: BUPIVACAINE 0.25% 10ML INJ 25 MG IJ (14:12)
--- NOTE | 2024-07-23 14:18 | P.PCN_ITS ---
Procedure Date: 07/23/24 Time: 14:15 Anesthesiologist:: Richard William CRNA Complications:: None Pre-procedure Diagnosis:: Right trochanteric bursitis Post-procedure Diagnosis:: Same Indications for Procedure:: Patient is a pleasant 69-year-old female who comes our clinic today for a right trochanteric bursa injection of cortisone and local anesthetic. Patient describes right lateral hip pain as constant, sharp, stabbing. She has difficulty lying on the right side. She reports pain with ambulation. She rates her pain 7/10. Procedure Details:: Procedure: Right trochanteric bursa injection under fluoroscopy We then moved to the right trochanteric bursa.~ C-arm fluoroscopy was used to view the left greater trochanter.~ The skin and subcutaneous tissues overlying the right greater trochanter were anesthetized using lidocaine, 1.5% and a 25- gauge needle.~ After this, a 22-gauge spinal needle was inserted and advanced until it contacted the right greater trochanter.~ Dye was injected and good spread was seen throughout the right trochanteric bursa. After this, approximately 5 mL of bupivacaine, 0.25% and Depo-Medrol, 40 mg was incrementally injected into the right right trochanteric bursa.~ The patient tolerated the procedure well with no complications. Plan and Disposition:: Patient was discharged without incident.
[2024-07-23 14:29] VITALS: BP 128/69; PULSE 65; RESP 16; O2SAT 96
== END 2024-07-23 14:29 | disposition home or self-care (01) ==
PROVIDERS: PCP Family Medicine; Visit Provider Nurse Anesthetist, Certified Registered
DX: M70.61 Trochanteric bursitis, right hip (principal)
CPT/HCPCS: 20610; 77002; J1010

== ENCOUNTER 2024-08-07 14:21 | Outpatient (POV) | payer MEDICARE, SELFPAY ==
[2024-08-07 14:39] VITALS: BP 137/60; PULSE 69; RESP 18; O2SAT 98; BMI 25.0
--- NOTE | 2024-08-07 14:51 | EXP.PAIN.SOA ---
[facility] Disclaimer: The information contained in this section may have been updated after the patient was seen, as this information can be updated by other users. Medical History Bilateral bunions Surgical History H/O: hysterectomy History of cholecystectomy History of left hip replacement Family History Other Cancer Coronary artery disease Hypertension Social History Smoking Status: Former smoker alcohol intake: never substance use type: denies use current occupational status: retired Travel in the last 8 weeks: None household members: [facility] marital status: PM Subjective & Objective Subjective Subjective:: Patient is a pleasant 69-year-old female who presents today for follow-up of right bursa injection on 07/23/2024. Today she rates her pain a 0 out of 10. She denies any other changes. She states that this injection has provided 100% relief and that she is still doing wonderful. Her Johnie has been reviewed and is appropriate. Review of Systems: General: No recent weight changes, no fever, no sleep disturbances Respiratory: No cough, no shortness of air, no recurring pulmonary infections Cardiovascular/peripheral vascular: No chest pain, no palpitations, no edema, no shortness of breath Gastrointestinal: No new onset incontinence, normal bowel movements reported Genitourinary: No new onset incontinence Musculoskeletal: Low back pain Psychiatric: [Normal mood/affect] Neurological: [Denies weakness in extremities], [denies balance issues] Pain at rest (0-10 scale): 0 Objective Objective:: Physical Exam: General: Alert and oriented x3, no acute distress, pleasant and cooperative Lungs: Respirations even and unlabored, symmetrical chest expansion Eyes: PERRL Musculoskeletal: Flexion and extension of lumbar [spine] within normal limits Neurological: Speech clear, no gross sensory deficit Has patient had previous pain injection?: Yes Percent improvement in pain since last injection: 100% Conservative treatment options previously tried: Home exercise plan Length of treatment: Longer than 12 weeks Meds Home Medications and Allergies Home Medications ?Medication ?Instructions ?Recorded ?Confirmed ?Type lisinopril 10 1 tab PO DAILY 12/26/22 08/07/24 History mg-hydrochlorothiazide 12.5 mg tablet paroxetine HCl 20 mg tablet 20 mg PO DAILY 12/26/22 08/07/24 History alprazolam 0.5 mg tablet 0.5 mg PO BID PRN Anxiety 03/29/23 08/07/24 History cholecalciferol (vitamin D3) 125 125 mcg PO DAILY 07/11/23 08/07/24 History mcg (5,000 unit) capsule New Prescriptions to Start Prescriptions: Allergies Allergy/AdvReac Type Severity Reaction Status Date / Time No Known Allergies Allergy Verified 06/18/24 09:08 Assessment and Plan *Assessment and plan (1) Greater trochanteric bursitis of right hip: Status: Acute Category: Medical Code(s): M70.61 - Trochanteric bursitis, right hip Plan Patient has had significant improvement and does not require any additional injection therapy at this time. Patient will return to clinic in 1 month for reevaluation of symptoms and plan of care. Patient has been instructed to contact the clinic with any concerns before the next appointment. Dr. Forrester has reviewed this note and agrees with this plan of care. This note was dictated using voice recognition software and make contain errors or omissions. All injections are used with Lidocaine or Bupivacaine and Depo Medrol.
== END 2024-08-07 23:59 | disposition home or self-care (01) ==
LOC: SC.PAIN 14:22
PROVIDERS: PCP Family Medicine; Visit Provider Nurse Practitioner Family
DX: M70.61 Trochanteric bursitis, right hip (principal); Z96.642 Presence of left artificial hip joint; Z87.891 Personal history of nicotine dependence
CPT/HCPCS: 99212; G0463

== ENCOUNTER 2024-10-07 14:40 | Outpatient (POV) | payer MEDICARE, SELFPAY ==
--- NOTE | 2024-10-07 15:41 | A.OFFVIS_ITS ---
[facility] Disclaimer: The information contained in this section may have been updated after the patient was seen, as this information can be updated by other users. Medical History Bilateral bunions Surgical History H/O: hysterectomy History of cholecystectomy History of left hip replacement Family History Other Cancer Coronary artery disease Hypertension Social History Smoking Status: Former smoker alcohol intake: never substance use type: denies use current occupational status: retired Travel in the last 8 weeks: None household members: other housing: condominium marital status: PM Subjective & Objective Subjective Subjective:: Patient is a pleasant 69-year-old female who presents today for 2-month follow- up. Today she rates her pain a 2 out of 10. She states overall her low back and hips have been doing okay. She does state that she has been having more issues with her left shoulder and is unsure whether or not if she has done anything specific or is more arthritis. Patient denies any new injuries or falls. She states that the pain is not constant but comes and goes based off activity. Patient states she notices it more with lifting an object in her left hand. She states at that time it will just give out at the shoulder joint and denies any altered licensed life and health agent or feeling like what ever she is lifting is going to fall. Patient denies any prior surgery in this joint. Her Johnie has been reviewed and is appropriate. Review of Systems: General: No recent weight changes, no fever, no sleep disturbances Respiratory: No cough, no shortness of air, no recurring pulmonary infections Cardiovascular/peripheral vascular: No chest pain, no palpitations, no edema, no shortness of breath Gastrointestinal: No new onset incontinence, normal bowel movements reported Genitourinary: No new onset incontinence Musculoskeletal: Left shoulder pain Psychiatric: [Normal mood/affect] Neurological: [Denies weakness in extremities], [denies balance issues] Pain at rest (0-10 scale): 2 Objective Objective:: Physical Exam: General: Alert and oriented x3, no acute distress, pleasant and cooperative Lungs: Respirations even and unlabored, symmetrical chest expansion Eyes: PERRL Musculoskeletal: Flexion and extension of left shoulder somewhat guarded secondary to pain Neurological: Speech clear, no gross sensory deficit Has patient had previous pain injection?: No Conservative treatment options previously tried: Home exercise plan Length of treatment: Longer than 12 weeks Meds Home Medications and Allergies Home Medications ?Medication ?Instructions ?Recorded ?Confirmed ?Type lisinopril 10 1 tab PO DAILY 12/26/22 08/07/24 History mg-hydrochlorothiazide 12.5 mg tablet paroxetine HCl 20 mg tablet 20 mg PO DAILY 12/26/22 08/07/24 History alprazolam 0.5 mg tablet 0.5 mg PO BID PRN Anxiety 03/29/23 08/07/24 History cholecalciferol (vitamin D3) 125 125 mcg PO DAILY 07/11/23 08/07/24 History mcg (5,000 unit) capsule New Prescriptions to Start Prescriptions: Allergies Allergy/AdvReac Type Severity Reaction Status Date / Time No Known Allergies Allergy Verified 06/18/24 09:08 Assessment and Plan *Assessment and plan (1) Left shoulder pain: Status: Acute Category: Medical Code(s): M25.512 - Pain in left shoulder Plan I did review over with the patient that I will order an x-ray of her left shoulder with the plan to order advanced imaging in future. Patient was c ounseled that we can see about injections if the pain does not get any better or becomes more consistent. Patient agrees with this plan of care. Patient will return to clinic in 2 weeks following her x-ray imaging. Patient has been instructed to contact the clinic with any concerns before the next appointment. Dr. Forrester has reviewed this note and agrees with this plan of care. This note was dictated using voice recognition software and make contain errors or omissions. All injections are used with Lidocaine, Bupivacaine and Depo Medrol. Occasionally urine drug screen is needed to verify patient's compliance with our office pain contract. This is ordered based off specific treatments related to chronic pain with the potential to abuse certain medications.
--- NOTE | 2024-10-07 15:48 | XR_ITS ---
FINAL REPORT CLINICAL HISTORY: LEFT SHOULDER PAIN COMPARISON: None FINDINGS: LEFT SHOULDER 3 views of the left shoulder were obtained. There is no acute fracture or dislocation. Visualized joint spaces are normally aligned. There is prominent ectasia and unfolding of the thoracic aorta. IMPRESSION: No acute bony abnormality. Prominent ectasia and unfolding of the thoracic aorta. Consider two-view chest for further evaluation. Reviewed, Interpreted and Dictated by Pollo Burkett MD Transcribed by Ginny Duenas Authenticated and [facility]
[2024-10-07 15:56] VITALS: BP 195/78; PULSE 82; RESP 18; O2SAT 97; BMI 24.2
== END 2024-10-07 23:59 | disposition home or self-care (01) ==
PROVIDERS: PCP Family Medicine; Visit Provider Nurse Practitioner Family
DX: M25.512 Pain in left shoulder (principal); Z87.891 Personal history of nicotine dependence; Z96.642 Presence of left artificial hip joint
CPT/HCPCS: 73030; 99212; G0463

== ENCOUNTER 2024-10-10 11:45 | Outpatient (CLI) | payer MEDICARE, SELFPAY ==
--- NOTE | 2024-10-10 11:53 | XR_ITS ---
FINAL REPORT TECHNIQUE: Chest PA & Lateral CLINICAL HISTORY: DILATED THORACICV AORTA COMPARISON: None FINDINGS: 2 views of the chest were performed. The heart size is mildly enlarged. Prominent aortic arch is probably due to a combination of ectasia and tortuosity. There is no acute cardiopulmonary process. There are no pleural effusions. There is no pneumothorax. The bony thorax appears intact. IMPRESSION: No acute cardiopulmonary process. Prominent aortic arch, likely due to combination of ectasia and tortuosity. Reviewed, Interpreted and Dictated by Pollo Burkett MD Transcribed by Ginny Duenas Authenticated and [facility]
== END 2024-10-10 23:59 | disposition home or self-care (01) ==
LOC: RAD 11:50
PROVIDERS: PCP Family Medicine; Visit Provider Nurse Practitioner Family
DX: I77.810 Thoracic aortic ectasia (principal)
CPT/HCPCS: 71046

== ENCOUNTER 2024-11-29 09:29 | Outpatient (CLI) | payer MEDICARE, SELFPAY ==
--- NOTE | 2024-11-29 09:30 | CT_ITS ---
FINAL REPORT TECHNIQUE: The patient was injected with IV contrast. Axial images were obtained through the chest in a PE protocol. 3-D reconstruction images were also performed. Individualized dose reduction techniques using automated exposure control or adjustment of the MA and/or KV according to patient's size were employed. CLINICAL HISTORY: abnl cxr COMPARISON: None FINDINGS: There is diffuse aneurysmal dilatation of the thoracic aorta. The ascending aorta measures up to 4.8 cm in diameter. The proximal descending thoracic aorta immediately distal to the origin of the left subclavian artery measures up to 3.6 cm in diameter. The mid descending thoracic aorta measures up to 5.8 cm in diameter and at the level of the diaphragmatic hiatus 4.9 cm in diameter. Mural thrombus is seen throughout the descending thoracic aorta which is partially calcified. There is no axillary adenopathy. There is no hilar or mediastinal adenopathy. The heart size is normal. There is no pericardial or pleural effusion. Limited images of the upper abdomen are unremarkable. No suspicious infiltrate or nodule is identified. Mild scarring is noted at the left lung base. IMPRESSION: Diffuse aneurysmal dilatation of the thoracic aorta with ascending measuring up to 4.2 cm and proximal descending measuring up to 6.3 cm. Reviewed, Interpreted and Dictated by Pollo Burkett MD Transcribed by Ginny Duenas Authenticated and [facility]
--- NOTE | 2024-11-29 09:30 | CA_ITS ---
APPROVED REPORT EXAM: Comprehensive 2D, Doppler, and color-flow Echocardiogram Parish Worker: Merary King RT(R) Ht: 5 ft 6 in Wt: 154lbs BSA: 1.79 BP: 152/56 mmHg Indications: atypical angina, ex smoker, pectus carinatum 2D Dimensions LVEF ([place]'s) 62.90 % F: 54 - 74 LV Volume 94.80 mL F: 46 - 106 LV Volume Index 53.0 mL/m2 F: 29 - 61 EF AP4 67.30 % EF AP2 56.8 % EF BP 62.9 % GL Strain -15.7 % M-Mode Dimensions RVDd 2.68 cm (0.9-2.6) LA Diam 3.54 cm (1.9-4.0) LVDd 4.71 cm (3.5-5.7) LVDs 3.40 cm (3.5-5.7) IVSd 1.02 cm (0.6-1.1) PWd 0.76 cm (0.6-1.1) EF (Teich) 53.90% FS 27.80% EDV (Teich) 102.90 mL ESV (Teich) 47.40 mL LV Diastology E Decel Time 163 (160-240 msec) E/A Ratio 1.18 Mitral Valve MV A Velocity 66.0 (40-130 cm/s) E/A Ratio 1.18 Tricuspid Valve TR P. Velocity 249.00 cm/s RAP Estimate 10.00 mmHg RVSP 34.80 mmHg Left Ventricle The left ventricle is normal size. The left ventricular systolic function is normal. The left ventricular ejection fraction is within the normal range. There is increased LV wall thickness. There is normal LV segmental wall motion. The left ventricular diastolic function is normal. LVEF is 55%. Right Ventricle The right ventricle is borderline dilated. The right ventricular systolic function is normal. Atria The left atrium is mildly dilated. The right atrium is mildly dilated. There is no Doppler evidence of interatrial shunt. Aortic Valve The aortic valve is mildly thickened. There is no aortic valvular stenosis. Trace aortic regurgitation is present. Mitral Valve The mitral valve is normal in structure. No evidence of mitral valve stenosis. Mild mitral regurgitation. Tricuspid Valve Tricuspid valve is grossly normal in structure and function. Mild tricuspid regurgitation. RVSP is 30-35 mmHg. Pulmonic Valve The pulmonary valve is normal in structure. Trace pulmonic regurgitation. Great Vessels The aortic root is normal in size. IVC is normal in size and collapses >50% with inspiration. Pericardium There is no pericardial effusion. Other Information Study Quality: Fair Conclusion Normal biventricular systolic function. Mild biatrial dilation. Mild MR, mild TR. Electronically signed by : Mary Umana MD 12/01/2024 17:27:11
[2024-11-29 10:07] LABS: Blood Urea Nitrogen 24 mg/dl (7-17); Estimated Glomerular Filt Rate 49 ml/min (>60); GFR (African American) 59 ML/MIN (>60)
[2024-11-29] MEDS: IOPAMIDOL-370 (76%);100ML BOTTLE 100 ML IV (10:35)
[2024-11-29] MEDS: 0.9 % SODIUM CHLORIDE 50 ML VIAL IV (10:35)
[2024-11-29] MEDS: SODIUM CHLORIDE 0.9% 10ML SYR (RAD ONLY) 10 ML IV (10:35)
== END 2024-11-29 23:59 | disposition home or self-care (01) ==
LOC: RAD 09:30
PROVIDERS: PCP Family Medicine; Visit Provider Internal Medicine
DX: I20.89 Other forms of angina pectoris (principal); R93.89 Abnormal findings on diagnostic imaging of other specified body structures
CPT/HCPCS: 36415; 71275; 82565; 84520; 93306; Q9967

== ENCOUNTER 2024-12-09 08:50 | Outpatient (POV) | payer MEDICARE, SELFPAY ==
--- NOTE | 2024-12-09 08:55 | A.OFFVIS_ITS ---
[facility] Disclaimer: The information contained in this section may have been updated after the patient was seen, as this information can be updated by other users. Medical History Aortic mural thrombus Descending aortic aneurysm Thoracic aortic aneurysm Bilateral bunions Surgical History H/O: hysterectomy History of cholecystectomy History of left hip replacement Family History Other Cancer Coronary artery disease Hypertension Social History Smoking Status: Former smoker alcohol intake: never substance use type: denies use current occupational status: other Travel in the last 8 weeks: None household members: other housing: condominium marital status: PM Subjective & Objective Subjective Subjective:: Patient is a pleasant 69-year-old female who presents today for worsening left shoulder pain. Today she rates her pain a 6 out of 10. She states the pain is constant and interfering with her ability to perform activities of daily living such as cooking and cleaning. Patient describes it as an aching sensation that is worse when she goes to tried to lift items or position her shoulder certain ways. Patient does state from our last visit where we did the initial imaging and that there was possible enlargement in her heart that she did end up doing additional imaging and has been put on blood thinner for a blood clot in her aorta. Patient states that she is supposed be following up very shortly with a cardiac surgeon possible. She is seeing Dr. West's office for this issue. Patient has continued to try oral medication, heat and ice and topicals with minimal changes. Her Johnie has been reviewed and is appropriate. Review of Systems: General: No recent weight changes, no fever, no sleep disturbances Respiratory: No cough, no shortness of air, no recurring pulmonary infections Cardiovascular/peripheral vascular: No chest pain, no palpitations, no edema, no shortness of breath Gastrointestinal: No new onset incontinence, normal bowel movements reported Genitourinary: No new onset incontinence Musculoskeletal: Left shoulder pain Psychiatric: [Normal mood/affect] Neurological: [Denies weakness in extremities], [denies balance issues] Pain at rest (0-10 scale): 6 Objective Objective:: Physical Exam: General: Alert and oriented x3, no acute distress, pleasant and cooperative Lungs: Respirations even and unlabored, symmetrical chest expansion Eyes: PERRL Musculoskeletal: Flexion and extension of left shoulder somewhat guarded secondary to pain, [antalgic gait noted] Neurological: Speech clear, no gross sensory deficit Has patient had previous pain injection?: No Conservative treatment options previously tried: Home exercise plan Length of treatment: Longer than 12 weeks Meds Home Medications and Allergies Home Medications ?Medication ?Instructions ?Recorded ?Confirmed ?Type paroxetine HCl 20 mg tablet 20 mg PO DAILY 12/26/22 12/09/24 History alprazolam 0.5 mg tablet 0.5 mg PO BID PRN Anxiety 03/29/23 12/09/24 History cholecalciferol (vitamin D3) 125 125 mcg PO DAILY 07/11/23 12/09/24 History mcg (5,000 unit) capsule apixaban 5 mg tablet (Eliquis) 5 mg PO BID #60 tabs 12/02/24 12/09/24 Rx atorvastatin 20 mg tablet (Lipitor) 20 mg PO DAILY #90 tabs 12/02/24 12/09/24 Rx lisinopril 20 1 tab PO DAILY #90 tabs 12/02/24 12/09/24 Rx mg-hydrochlorothiazide 25 mg tablet New Prescriptions to Start Prescriptions: Allergies Allergy/AdvReac Type Severity Reaction Status Date / Time No Known Allergies Allergy Verified 12/02/24 13:20 Assessment and Plan *Assessment and plan (1) Left shoulder pain: Status: Acute Category: Medical Code(s): M25.512 - Pain in left shoulder Plan I did discuss with patient that I do believe she would benefit from a intra- articular shoulder injection. Patient did have limited range of motion and pain with manipulation. Risk and benefits of this injection were explained to the patient and she would like to proceed forward with this plan of care. Patient has tried and failed conservative therapy including oral medications, heat and ice, topicals, at home stretching exercise for longer than 12 weeks. Patient has had this pain for longer than 3 months. Patient will be scheduled for a left shoulder intra-articular injection. This will be done without fluoroscopic or ultrasound guidance. I did children's counselor the patient due to the blood clot and Eliquis although this is not an injection that we have to stop blood thinners I will reach out to his office and confirm that he has no contraindications to this injection with the blood clot diagnosis. Patient was counseled that if we have any issues we will call her and let her know. Patient has been instructed to contact the clinic with any concerns before the next appointment. Dr. oFrrester has reviewed this note and agrees with this plan of care. This note was dictated using voice recognition software and make contain errors or omissions. All injections are used with Lidocaine, Bupivacaine and Depo Medrol. Occasionally urine drug screen is needed to verify patient's compliance with our office pain contract. This is ordered based off specific treatments related to chronic pain with the potential to abuse certain medications.
[2024-12-09 09:13] VITALS: BP 135/68; PULSE 78; RESP 14; O2SAT 100; BMI 24.8
== END 2024-12-09 23:59 | disposition home or self-care (01) ==
LOC: SC.PAIN 08:51
PROVIDERS: PCP Family Medicine; Visit Provider Nurse Practitioner Family
DX: M25.512 Pain in left shoulder (principal); Z96.642 Presence of left artificial hip joint; Z87.891 Personal history of nicotine dependence; Z73.89 Other problems related to life management difficulty; Z79.01 Long term (current) use of anticoagulants
CPT/HCPCS: 99212; G0463

== ENCOUNTER 2025-02-17 10:04 | Outpatient (POV) | payer MEDICARE, SELFPAY ==
--- OUTSIDE RECORDS SUMMARY | 2025-02-17 10:07 | XMS_ITS | Data Portability ---
Author Organization [place] [facility] [place] Address [address] [place] [address] Assessment Encounter Date Assessment Date Assessment LastModified by Organization Details LastModified Time 10/19/2023 10/19/2023 This patient had bilateral piriformis muscle injections done today. She is doing physical therapy. We will follow-up with her in 2 weeks to assess efficacy of these injections and reassess her symptomology. [facility] Not available 10/19/2023 16:48:59 Plan of Treatment Reminders Order Date Submit Date Provider Last Modified By Organization Details Last Modified Time Details Appointments None record ed. Lab None record ed. Referral None record ed. Procedures None record ed. Surgeries None record ed. Imaging None record ed. Medication Orders None record ed. Patient TargetsNo targets recorded. Patient InstructionsNo instructions recorded. Reason for Referral None Reported. Problems Name Problem SNOMED Code Status Onset Date Resolution Date Notes Provider Name and Address Organization Details Recorded Time Sciatica 79709507 Active 024 Luis Antonio Forrester MD [address] [facility] [place],[address], [address], [place] [facility] 16:49:43 Piriformis syndrome 979740346 Active 024 Luis Antonio Forrester MD [address], [address], [place] [facility] 16:49:44 Problem Notes None recorded. Procedures Surgical History Date Name Laterality Status Provider Name and Address Organization Details Recorded Time 10/19/2023 Piriformis completed Luis Antonio Forrester MD [address] [facility] [place],[address], [address], [place] [facility] 10/19/2023 16:48:23 Imaging Results None recorded. Procedure Notes None recorded. Medical Equipment None Reported. Medications Name Sig Start Date Stop Date Status Note LastModified by Organization Details LastModified Time amoxicillin 500 mg capsule TAKE 4 CAPSULES BY MOUTH 1 HOUR PRIOR TO PROCEDURE active Not Available Not Available No t Available atorvastati n 40 mg tablet TAKE 1 TABLET BY MOUTH EVERY DAY FOR CHOLESTER OL 10/19 completed Not Available Not Available Not Available atorvastati n 80 mg tablet TAKE 1 TABLET BY MOUTH EVERY DAY TO IMPROVE CHOLESTER OL active Not Available Not Available No t Available hydrocodone 5 mg-acetamin ophen 325 mg tablet TAKE 1 TO 2 TABLETS BY MOUTH 4 TIMES A DAY NEEDED FOR PAIN active Not Available Not Available No t Available tramadol 50 mg tablet TAKE 2 TABLETS BY MOUTH THREE TIMES A DAY NEEDED FOR PAIN active Not Available Not Available No t Available alprazolam 0.5 mg tablet TAKE 1 TABLET BY MOUTH TWICE A DAY NEEDED active Not Available Not Available No t Available estradiol 1 mg tablet TAKE 1 TABLET BY MOUTH EVERY DAY FOR HOT FLASHES active Not Available Not Available No t Available paroxetine 20 mg tablet TAKE 1 TABLET BY MOUTH EVERY DAY active Not Available Not Available No t Available gabapentin 100 mg capsule TAKE 2 CAPSULES BY MOUTH 3 TIMES A DAY TO IMPROVE HOT FLASHES active Not Available Not Available No t Available estradiol 0.5 mg tablet TAKE 1 TABLET BY MOUTH EVERY DAY active Not Available Not Available No t Available metoprolol succinate ER 25 mg tablet,exte nded release 24 hr TAKE 1 TABLET BY MOUTH EVERY DAY TO IMPROVE BLOOD PRESSURE active Not Available Not Available No t Available lisinopril 10 mg-hydrochl orothiazide 12.5 mg tablet TAKE 1 TABLET BY MOUTH EVERY MORNING FOR BLOOD PRESSURE active Not Available Not Available No t Available amoxicillin 875 mg-potassiu m clavulanate 125 mg tablet TAKE 1 TABLET BY MOUTH TWICE DAILY WITH FOOD X 10 DAYS TO TREAT INFECTION 10/19 completed Not Available Not Available Not Available Eliquis 5 mg tablet TAKE 1 TABLET BY MOUTH TWICE A DAY active Not Available Not Available No t Available Vitals None Recorded Social History Question Answer Notes LastModified by Organizat ion Details LastModified Time Tobacco Smoking Status Former Smoker Latisha Moseley null, [place] [facility] 10/19/2023 15:11:09 Do You Have An Advance Directive? 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 No [email or web address] Information not available 10/19/2023 How Much Tobacco Do You Smoke? 1 PPD [email or web address] Information not available 10/19/2023 Sex: Unknown Functional Status Question Answer Note LastModified by Organizat ion Details LastModified Time Do you use any illicit or recreational drugs? Yes [email or web address] occasionally [email or web address] Information not available 10/19/2023 What is your level of alcohol consumption? None [email or web address] Information not available 10/19/2023 Are you currently employed? No [email or web address] Information not available 10/19/2023 Mental Status None recorded. Family History Nothing Reported. Medical History Condition Response Coronary Artery Disease N Gout N Hernia N Head Trauma/Injury N Depression N COPD N Anxiety Disorder Y Arthritis Y Acid Reflux (GERD) N Cancer N Stroke N Back Injury Y High Cholesterol N Liver Disease N Headaches N Fibromyalgia N Kidney Disease N Thyroid Problems N Anemia N Ulcers N Heart Attack ([place]) N Diabetes N Bleeding Disorder N Tuberculosis N AIDS/HIV N Asthma N Substance Abuse N Hepatitis N Heart Disease N Hypertension N Osteoporosis N Gynecological HistoryNo gynecological history recorded. Obstetrics History GPAL:G 0 P 0 0 0 0 Past Encounters Encounter ID Performer Location Encounter Start Date Encounter Closed Date Diagnosis/Indication Diagnosis SNOMED-CT Code Diagnosis ICD10 Code Diagnosis Note [id number] Luis Antonio Forrester MD [address] CRAIG [address] [place] [id number] 10/19/2023 14:38:46 10/19/2023 16:01:36 Sciatica 31522035 M54.30 Piriformis syndrome 1291 [address]6746 G57.03 Health Concerns Section Related Observation LastModified by Organization Detai ls LastModified Time None Recorded Concern Status LastModified by Organization Details LastModified Time None Recorded Advance Directives Directive N: Payers Encounter Date Sequence Insurance Name Policy Number Policy Green Covered Member ID Green Member ID Guarantor Name 10/19/2023 1 [employer] (MEDICARE REPLACEMENT/A DVANTAGE - PPO) Joi Marcial [id number] Joi Marcial Notes Date Note Type Note Provider Name and Address Organization Details Recorded Time 10/19/2023 text/html Low back painReported bypatient.Location: radiating down the bilateral lower extremities to the knees Context:started without cause Quality:frequent Severity:current pain level: 2/10; average pain level: 5/10; worst pain level: 7/10 Alleviating Factors:injections Aggravating Factors:standing; walking Timing:constant Associated Symptoms:no weakness; no numbness; no tingling; no pain radiating down lower extremities; no swelling; no popping/clicking; no bowel incontinence; no urinary retention; no urinary incontinence; no perineal paresthesia/anesthe vamsi Prior Imaging:MRI Previous physical therapy:6weeks of PT completed; response to therapy: pain/symptoms significantly improved Patient presents for an injection of INSERT TEXT HERE. Luis Antonio Forrester MD [address], [address], [place] [facility] 10/19/2023 16:50:28 OBGyn Episode No OBEpisode recorded.
--- NOTE | 2025-02-17 10:57 | EXP.PAIN.SOA ---
[facility] Disclaimer: The information contained in this section may have been updated after the patient was seen, as this information can be updated by other users. Medical History Aortic mural thrombus Descending aortic aneurysm Thoracic aortic aneurysm Bilateral bunions Surgical History H/O: hysterectomy History of cholecystectomy History of left hip replacement Family History Other Cancer Coronary artery disease Hypertension Social History Smoking Status: Former smoker alcohol intake: never substance use type: denies use current occupational status: other Travel in the last 8 weeks?: None household members: other housing: condominium marital status: PM Subjective & Objective Subjective Subjective:: Patient is a pleasant 69-year-old female who presents today for follow-up. Today she denies greater pain a 6 out of 10. She states she has been having a lot more pain in her low back with the left side worse than the right side. Patient does state it is worse with prolonged positioning such as sitting and frequently has to change positions. Patient does state the pain is interfering with her ability perform activities of daily living such as cooking cleaning. Patient is wanting to get back in for another injection as her last one in this area had significantly helped up until the last little bit. Patient has continued conservative treatment including at home stretching exercise for longer than 12 weeks. Patient is scheduled for a cardiac procedure coming up however states that she still does not have an official date and that previously she had been told that she could still get injections. Patient is on blood thinners. Her Johnie has been reviewed and is appropriate. Review of Systems: General: No recent weight changes, no fever, no sleep disturbances Respiratory: No cough, no shortness of air, no recurring pulmonary infections Cardiovascular/peripheral vascular: No chest pain, no palpitations, no edema, no shortness of breath Gastrointestinal: No new onset incontinence, normal bowel movements reported Genitourinary: No new onset incontinence Musculoskeletal: Low back pain, bilateral hip pain Psychiatric: [Normal mood/affect] Neurological: [Denies weakness in extremities], [denies balance issues] Pain at rest (0-10 scale): 6 Objective Objective:: Physical Exam: General: Alert and oriented x3, no acute distress, pleasant and cooperative Lungs: Respirations even and unlabored, symmetrical chest expansion Eyes: PERRL Musculoskeletal: Flexion and extension of lumbar [spine] somewhat guarded secondary to pain, [antalgic gait noted] point tenderness along bilateral SIs with positive bilateral Josue's, Gin's, Gaenslen's, compression and distraction exam Neurological: Speech clear, no gross sensory deficit Has patient had previous pain injection?: No Conservative treatment options previously tried: Home exercise plan Length of treatment: Longer than 12 weeks Meds Home Medications and Allergies Home Medications ?Medication ?Instructions ?Recorded ?Confirmed ?Type paroxetine HCl 20 mg tablet 20 mg PO DAILY 12/26/22 12/09/24 History alprazolam 0.5 mg tablet 0.5 mg PO BID PRN Anxiety 03/29/23 12/09/24 History cholecalciferol (vitamin D3) 125 125 mcg PO DAILY 07/11/23 12/09/24 History mcg (5,000 unit) capsule apixaban 5 mg tablet (Eliquis) 5 mg PO BID #60 tabs 12/02/24 12/09/24 Rx atorvastatin 20 mg tablet (Lipitor) 20 mg PO DAILY #90 tabs 12/02/24 12/09/24 Rx lisinopril 20 1 tab PO DAILY #90 tabs 12/02/24 12/09/24 Rx mg-hydrochlorothiazide 25 mg tablet enoxaparin 60 mg/0.6 mL 60 mg (0.6 mL) SQ BID 12/12/24 Rx subcutaneous syringe (Lovenox) perioperative anticoagulation 2 days #2.4 mL bisoprolol fumarate 10 mg tablet 10 mg PO DAILY #90 tabs 01/03/25 Rx lisinopril 20 mg tablet 20 mg PO DAILY #90 tabs 01/03/25 Rx New Prescriptions to Start Prescriptions: Allergies Allergy/AdvReac Type Severity Reaction Status Date / Time No Known Allergies Allergy Verified 12/02/24 13:20 Assessment and Plan *Assessment and plan (1) Sacroiliac joint dysfunction: Problem Comment: Active follow-up with pain management Status: Chronic Category: Medical Code(s): M53.3 - Sacrococcygeal disorders, not elsewhere classified Plan Patient is experiencing worsening pain along the low back and bilateral hips. They did have limited range of motion of the lumbar spine along with point tenderness along bilateral SI joints and a positive bilateral Josue's, Gin's, Gaenslen's, compression and distraction exam. I did discuss with the patient that I do believe they would benefit from bilateral SI injections. Risk and benefits were discussed with the patient and they would like to proceed forward with this option. Patient has tried and failed conservative therapy. Patient has been actively doing conservative treatment including oral medication, heat and ice, topicals, at home exercising and stretching for longer than 12 weeks. Patient is having to adjust their activity based off the increased pain resulting in activity modification. I do believe the patient would benefit from SI injection. Patient's last SI injections were in June and did provide more than 80% relief and have lasted longer than 6 months. Patient did have improved function. This will be a therapeutic injection and there is the possibility that she still may be a future candidate of SI fusion however currently we will have to wait and see how her cardiology appointments go. I did discuss with the patient that we will have to reach out to this provider and confirm that they have no contraindications for this injection prior to her surgery coming up. Patient knowledges understanding agrees with this plan of care. Patient will be scheduled for bilateral SI injections under fluoroscopy. This will be less than 1.5 mL of solution to be injected. Patient has been instructed to contact the clinic with any concerns before the next appointment. Dr. Forrester has reviewed this note and agrees with this plan of care. This note was dictated using voice recognition software and make contain errors or omissions. All injections are used with Lidocaine or Bupivacaine and dexamethasone unless diagnostic in which no steroids were injected.
[2025-02-17 11:30] VITALS: BP 169/85; PULSE 53; RESP 14; O2SAT 100; BMI 25.0
== END 2025-02-17 23:59 | disposition home or self-care (01) ==
LOC: SC.PAIN 10:05
PROVIDERS: PCP Family Medicine; Visit Provider Nurse Practitioner Family
DX: M53.3 Sacrococcygeal disorders, not elsewhere classified (principal); Z79.01 Long term (current) use of anticoagulants
CPT/HCPCS: 99212; G0463

== ENCOUNTER 2025-03-04 14:33 | Day surgery (SDC) | payer MEDICARE, SELFPAY ==
[2025-03-04 14:42] VITALS: BP 122/59; PULSE 47; RESP 16; TEMP 36.6; O2SAT 98; BMI 25.7
--- NOTE | 2025-03-04 14:56 | P.PCN_ITS ---
Procedure Date: 03/04/25 Time: 15:05 Anesthesiologist:: Richard William CRNA Complications:: None Pre-procedure Diagnosis:: Bilateral sacroiliitis Post-procedure Diagnosis:: Same Indications for Procedure:: Patient is a very pleasant 69-year-old female that comes our clinic today for bilateral sacroiliac joint injection of cortisone local anesthetic. Patient describes low lumbar back pain off the midline bilaterally. Bilateral posterior hip pain. Difficulty transitioning from sitting to standing. Difficulty with ambulation due to the bilateral posterior hip pain. She rates her pain 6/10. Procedure Details:: Procedure: Bilateral sacroiliac joint injections under fluoroscopy Informed consent was obtained and the risks and benefits of the procedure were explained to the patient.~ The patient was taken to the procedure room and no ninvasive monitors were placed including a noninvasive blood pressure cuff and pulse oximeter.~ The patient was placed prone on the procedure table. Both hips were cleansed using Betadine as a cleansing solution. C-arm fluoroscopy was used to view the right sacroiliac joint.~ The skin and subcutaneous tissues were anesthetized using lidocaine 1.5% and a 25-gauge needle.~ After this, a 22-gauge spinal needle was inserted under fluoroscopic guidance into the inferior aspect of the right sacroiliac joint.~ Omnipaque dye was injected and good spread was seen throughout the joint.~ After this, approximately 5 mL of bupivacaine, 0.25% and Depo-Medrol, 40 mg was incrementally injected into the right sacroiliac joint. We then moved to the left sacroiliac joint.~ The skin and subcutaneous tissues w ere anesthetized using lidocaine 1.5% and a 25-gauge needle.~ After this, a 22- gauge spinal needle was inserted under fluoroscopic guidance into the inferior aspect of the left sacroiliac joint.~ Omnipaque dye was injected and good spread was seen throughout the joint. After this, approximately 5 mL of bupivacaine, 0.25% and Depo-Medrol, 40 mg was incrementally injected into the left sacroiliac joint.~ The patient tolerated the procedure well with no complications. The patient was observed in the Pain Clinic and then was discharged home neurologically intact. Plan and Disposition:: Patient was discharged without incident.
[2025-03-04 15:10] VITALS: BP 144/72; PULSE 55; RESP 18; O2SAT 98
[2025-03-04 15:23] VITALS: BP 122/59; PULSE 47; RESP 18; O2SAT 98
[2025-03-04 15:24] VITALS: BP 122/59; PULSE 47; RESP 18; O2SAT 98
== END 2025-03-04 15:10 | disposition home or self-care (01) ==
PROVIDERS: PCP Family Medicine; Visit Provider Nurse Anesthetist, Certified Registered
DX: M46.1 Sacroiliitis, not elsewhere classified (principal); I71.9 Aortic aneurysm of unspecified site, without rupture; I71.20 Thoracic aortic aneurysm, without rupture, unspecified; Z87.891 Personal history of nicotine dependence; Z79.02 Long term (current) use of antithrombotics/antiplatelets; Z79.82 Long term (current) use of aspirin; Z79.899 Other long term (current) drug therapy
CPT/HCPCS: 64450; 77002

== ENCOUNTER 2025-03-31 14:00 | Outpatient (POV) | payer MEDICARE, SELFPAY ==
--- OUTSIDE RECORDS SUMMARY | 2025-01-30 08:40 | XMS_ITS | Encounter Summary ---
Author Organization [facility] Address [address] [place] [address] Care Team Providers Care Power Wood Sawyer Name Role Phone Edwardo Sheehan MD Primary Care Provider [phone] Jose R Umana MD Unavailable [phone] Kevin Mancera MD Unavailable [phone] Reason for Visit * Consultation (Urgent) - Closed Specialty Diagnoses / Procedures Referred By Contact Referred To Contact Vascular Surgery / Comprehensive V[facility] Diagnoses 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) Kevin Mancera MD [address] [place] [address] Phone: tel: fax: [facility] [address] [place] [address] Phone: tel: fax: Referral ID Status Reason Start Date Expiration Date V isits Requested Visits Authorized [id number] Closed Specialty Services Required 01/02/2025 07/04/2026 1 1 Encounter Details Date Type Department Care Team (Late st Contact Info) Description 01/30/2025 8:40 AM EDT Consult [facility] Cardiothoracic [address], [address] [place] [address] Cheng Hammond MD [address] [place] [address] 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) (Primary Dx); Hypertension, unspecified type; Cerebral venous sinus thrombosis Social History Tobacco Use Types Packs/Day Years Used Date Smoking Tobacco: Former Cigarettes Tobacco Cessation:Counseling Given: Not Answered Comments:Quit smoking 2017 smoked 1ppd for 40 years Alcohol Use Standard Drinks/Week Comments Not Currently 0 (1 standard drink = 0.6 oz pur e alcohol) Comments No Sex and Gender Information Value Date Recorded Sex Assigned at Not on file Legal Sex Female 7:38 PM EDT Gender Identity Not on file Sexual Orientation Not on file documented as of this encounter Last Filed Vital Signs Vital Sign Reading Time Taken Comments Blood Pressure 144/73 01/30/2025 8:59 AM EDT Pulse 48 01/30/2025 8:42 AM EDT Temperature - - Respiratory Rate - - Oxygen Saturation 98% 01/30/2025 8:42 AM EDT Inhaled Oxygen Concentration - - Weight 71.9 kg (158 lb 8.2 oz) 01/30/2025 8:42 A M EDT Height 167.6 cm (5' 6 ) 01/30/2025 8:42 AM EDT Body Mass Index 25.58 01/30/2025 8:42 AM EDT documented in this encounter Miscellaneous Notes * Progress Notes - Renetta Dobbins, CYLINDER DIE MACHINE OPERATOR - 01/30/2025 8:40 AM EDT Reason for visit / Chief Complaint: 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 female with hypertension, and cerebral venous sinus thrombosis, referred to us in consultation by Dr. Kevin Mancera in regards to findings of ascending and descending aortic aneurisms discovered on CT scans ordered by her refrigeration engineer. She has been seen by cardiothoracic surgery at [facility] for this issue but they do not have the equipment or training to perform a TAMBE graft which is what he felt was indicated. Upon evaluation at [facility] she was given a multi-phase operative plan that would involve a minimum of 21days inpatient which would present a hardship in light of it being a [address] making family support and logistics a challenge. She therefore presents to for CT surgery consultation to obtain our recommendations and plan as we are geographically closer to where she lives. Imaging shows a descending thoracic aorta measuring 6.2 associated with significant intra luminal layered thrombus and extending to the level of the renal arteries. There is diffuse aortic fusiform aneurism measuring up to 6.2 cm at the level of the distal arch. She reports struggling to maintain good BP control with significant fluctuations throughout the day, in clinic her BP was 145/70 and shewas significantly bradycardic. History She suffers from joint pain associated with her osteoarthritis and receives regular steroidinjections which she has been holding pending a surgical plan so her pain is increased. She has no known family history of aneurism or connective tissue disorders however she does have a brother who suddenly about 6 months ago for unknown reasons. Medical History Her chronic comorbid conditions that impact our treatment planning include: Cardiac Surgery: The comorbid conditions that impact and complicate our treatment planning include:HTN, HLD, cerebral venous sinus thrombosis, osteoarthitis NYHA Classification: Class I: No symptoms with ordinary activity. 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 ([facility]/HCC) 12/26/2024 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 Medical History: Past Medical History: Diagnosis Date Aneurysm ([facility]/HCC) Hyperlipidemia Hypertension Surgical History: Surgical History[1] Social History: Tobacco: Tobacco Use: Medium Risk (01/30/2025) Patient History Smoking Tobacco Use: Former Smokeless Tobacco Use: Unknown Passive Exposure: Not on file Alcohol: Alcohol Use: Not on file Illicit drug use: Social History Substance and Sexual Activity Drug Use Yes Types: Marijuana Family History: family history includes Cancer in her brother; Diabetes type II in her brother and sister; Heart disease in her father; Hypertension in her mother; Sudden in her brother. Allergies: Allergies[2] Medications: Prior to Admission medications Medication Sig Start Date End Date Taking? Authorizing Provider ALPRAZolam (Xanax) 0.5 MG tablet Take 0.5 mg by mouth 2 (two) times a day. Yes Provider, MD Kalia apixaban (Eliquis) 5 MG tablet Take 1 tablet (5 mg total) by mouth 2 (two) times a day. 01/09/23 01/30/25 Yes Kathryn Dominguez MD atorvastatin (Lipitor) 40 MG tablet Take 1 tablet (40 mg total) by mouth every night. Patient taking differently: Take 0.5 tablets by mouth nightly. 01/09/23 01/30/25 Yes Lulu Dominguez MD lisinopril-hydroCHLOROthiazide 20-25 MG tablet Take 1 tablet by mouth daily. 12/30/24 Yes Kalia Aburto MD PARoxetine (Paxil) 20 MG tablet Take 20 mg by mouth 1 (one) time each day. Yes Kalia Aburto MD VITAMIN D, ERGOCALCIFEROL, PO Take by mouth. Yes Kalia Aburto MD lisinopril-hydroCHLOROthiazide 10-12.5 MG tablet Take 1 tablet by mouth 1 (one) time each day. 01/30/25 Yes Kalia Aburto MD bisoprolol (Zebeta) 10 MG tablet Take 1 tablet by mouth 1 time each day. Kalia Aburto MD lisinopril 20 MG tablet Take 1 tablet by mouth 1 time each day. Kalia Aburto MD Multiple Vitamins-Minerals (CENTRUM SILVER 50+WOMEN PO) Take by mouth. Kalia Aburto MD metoprolol succinate XL (Toprol-XL) 25 MG 24 hr tablet Take 25 mg by mouth 1 (one) time each day. Do not crush or chew. 01/30/25 Kalia Aburto MD traMADol (Ultram) 50 MG tablet Take 1-2 tablets by mouth every 6 hours as needed 01/30/25 Kalia Aburto MD Physical exam: Visit Vitals BP (!) 144/73 Pulse (!) 48 Ht 1.676 m (5' 6 ) Wt 71.9 kg (158 lb 8.2 oz) SpO2 98% BMI 25.58 kg/m?? Review of Systems Constitutional: Negative. Cardiovascular: Negative. Respiratory: Negative. Endocrine: Negative. Skin: Negative. Musculoskeletal: Positive for arthritis and joint pain. Gastrointestinal: Intermittently experiences burning mid-abdominal pain Neurological: Negative. All other systems reviewed and are negative. Physical Exam Vitals reviewed. Constitutional: Appearance: Normal appearance. HENT: Head: Normocephalic and atraumatic. Right Ear: External ear normal. Left Ear: External ear normal. Nose: Nose normal. Mouth/Throat: Pharynx: Oropharynx is clear. Eyes: Pupils: Pupils are equal, round, and reactive to light. Cardiovascular: Rate and Rhythm: Bradycardia present. Pulses: Normal pulses. Heart sounds: Normal heart sounds. Pulmonary: Effort: Pulmonary effort is normal. Breath sounds: Normal breath sounds. Abdominal: Palpations: Abdomen is soft. Genitourinary: Comments: Deferred Musculoskeletal: General: Normal range of motion. Cervical back: Normal range of motion and neck supple. Skin: General: Skin is warm and dry. Capillary Refill: Capillary refill takes less than 2 seconds. Neurological: General: No focal deficit present. Mental Status: She is alert and oriented to person, place, and time. Mental status is at baseline. Psychiatric: Mood and Affect: Mood normal. Behavior: Behavior normal. Thought Content: Thought content normal. Judgment: Judgment normal. Imaging: CT Angiogram chest from 12/26/2024 ([facility]) 1.Diffuse aortic fusiform aneurysm measuring up to 6.2 cm maximum diameter at the level of the distal arch. Associated mural thrombus without dissection nor evidence of rupture. 2.There is 70-80% stenosis involving the proximal right ICA. 3.High-grade short segment stenosis if not total occlusion involving the left common femoral artery. 4.There is a 5 mm right lower lobe pulmonary nodule. See below recommendations. CT angio Chest from 01/14/2025 ([facility]) - Thoracoabdominal aneurysmal atherosclerotic aortic disease with maximal dimension of 6.2x6.0cm in the proximal DESCENDING THORACIC AORTA associated with significant intra luminal layered thrombus and extending to the level of the renal arteries. - AORTIC ROOT: 4.0 cm measured [id number] mid ASCENDING THORACIC AORTA: 4.4 cm distal ASCENDING THORACIC AORTA: 4.5 cm mid AORTIC ARCH: 4.5 cm - Calcified atherosclerotic changes of the coronary arteries, precluding precise assessment with CT. Impression: Joi Marcial is a 69 y.o. female with hypertension, and cerebral venous sinus thrombosis, referred to us in consultation by Dr. Kevin Mancera in regards to findings of ascending and descending aortic aneurisms discovered on CT scans ordered by her refrigeration engineer. We discussed her prior evaluation and surgical plan at the [facility] and Dr Hammond explained that our surgical plan would likely be similar in that it would involve vascular and CT surgery and would require planning and coordination to achieve a full repair of both aneurisms. However, he also discussed some of the significant risks associated with such a surgery in light of her risk factors including elevated riskof stroke in light of her degree of calcifications in the aorta. Risk of occlusion of lower extremity blood supply with extensive stenting resulting in paraplegia was also explained. He described possible medical management and what that would look like and also that there might be a middle of theroad approach to fix some of the problem while avoiding some of the elevated risks of a full surgical repair of both aneurisms. Ultimately we decided that we will discuss this patient with our vascular surgery colleagues and come up with a recommendation within the next 1-2 weeks. Plan: - Plan to follow back up with patient following evaluation of imaging by vascular surgery and coordination of recommendations - Patient is cleared to continue her steroid shots for arthritis pain control in the meantime -------- Have discussed the nature procedure on this patient opened we with the family. She has a large aorta extending to the renal arteries there is a laminated thrombus which is likely walked retrieval collaterals to the spinal cord (which could be a good thing). However aorta is significantly calcified. I have discussed this case with 1 of our vascular surgery colleagues with whom I shared imaging thepatient's permission. We will share this with the group and come up with a plan of the surgical approach and a transcatheter approach. I have actually shared her with fact that if to high risk, this option may be simple medical manner. I have personally reviewed all imaging available and placed his note. M E S [1] Past Surgical History: Procedure Laterality Date BACK SURGERY CHOLECYSTECTOMY FOOT SURGERY HYSTERECTOMY TOTAL HIP ARTHROPLASTY Left [2] No Known Allergies Cosigned by Cheng Hammond MD at 02/02/2025 11:10 AM EDT Associated attestation - Cheng Hammond MD - 02/02/2025 11:10 AM EDT The patient was seen by Advanced Practice Provider (LAVON) and myself-- care was reviewed with me. documented in this encounter Plan of Treatment Upcoming Encounters Date Type Department Care Team (Late st Contact Info) Description 05/14/2025 12:30 PM EDT Office Visit [facility] Cardiothor[facility] [address], [address] [place] [address] Jose C Nicholson MD [address] [place] [address] 05/21/2025 9:00 AM EDT Appointment [facility] Vascular Lab [address] [place] [address] 05/21/2025 10:20 AM EDT Office Visit [facility] [address] [place] [address] Cedrick Franz MD [address] [facility] [address] [place] [address] documented as of this encounter Visit Diagnoses Diagnosis 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)- Primary Hypertension, unspecified type Cerebral venous sinus thrombosis documented in this encounter Additional Health Concerns Assessment Noted Time A fall risk assessment has been complete d for the patient 01/30/2025 8:43 AM EDT A Body Mass Index follow-up plan has been documented for the patient 01/30/2025 10:39 AM EDT documented as of this encounter Care Teams Power Wood Sawyer Relationship Specialty Start Date End Date Edwardo Sheehan MD [address] [place] [address] PCP - General 12/19/22 Jose R Umana MD [address] [facility] [address] [place] [address] Referring Physician Cardiology 01/23/25 Kevin Mancera MD [address] [facility] [address] [place] [address] Referring Physician 01/31/25 documented as of this encounter
--- OUTSIDE RECORDS SUMMARY | 2025-02-24 13:00 | XMS_ITS | Encounter Summary ---
Author Organization Healthcare Address [address] [place] [address] Care Team Providers Care Anode Crew Supervisor Name Role Phone Edwardo Sheehan MD Primary Care Provider [phone] Jose R Umana MD Unavailable [phone] Kevin Mancera MD Unavailable [phone] Reason for Visit * Reason Comments Aneurysm of descending thoracic aorta wi thout rupture Encounter Details Date Type Department Care Team (Latest Contact Info) Description 02/24/2025 1:00 PM EDT Office Visit [facility] [address] [facility] 5[address] [place] [address] Jeanne Franz MD [address] [facility] [address] [place] [address] 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) (Primary Dx); Hypertension, unspecified type; Asymptomatic stenosis of right carotid artery Social History Tobacco Use Types Packs/Day Years Used Date Smoking Tobacco: Former Cigarettes Passive Smoke Exposure: Past Tobacco Cessation:Counseling Given: Not Answered Comments:Quit smoking 2018 smoked 1ppd for 40 years Alcohol Use Standard Drinks/Week Comments Not Currently 0 (1 standard drink = 0.6 oz pur e alcohol) AUDIT-C Answer Date Recorded Q1: How often do you have a drink containing alcohol? Never 02/24/2025 Q2: How many drinks containi ng alcohol do you have on a typical day when you are drinking? Patient does not drink Q3: How often do you have si x or more drinks on one occasion? Never 02/24/2025 Comments No Sex and Gender Information Value Date Recorded Sex Assigned at Not on file Legal Sex Female 7:38 PM EDT Gender Identity Not on file Sexual Orientation Not on file documented as of this encounter Last Filed Vital Signs Vital Sign Reading Time Taken Comments Blood Pressure 154/84 02/24/2025 1:01 PM EDT nurse notified Pulse 57 02/24/2025 12:51 PM EDT Temperature 36.4 C (97.5 F) 02/24/2025 12:51 PM EDT Respiratory Rate - - Oxygen Saturation 98% 02/24/2025 12: 51 PM EDT Inhaled Oxygen Concentration - - Weight 74.8 kg (164 lb 14.5 oz) 02/24/2025 12:51 PM EDT Height 167.6 cm (5' 6 ) 02/24/2025 12:5 1 PM EDT Body Mass Index 26.62 02/24/2025 12:51 PM EDT documented in this encounter Functional Status * AUDIT-C Score Answer Date of Assessment Author 0 02/24/2025 12:52 PM EDT John Willams * Question Answer Date of Assessment Author Q1: How often do you have a drink containing alcohol? Never 02/24/2025 12:52 PM EDT Rosy Willams Q2: How many drinks containing alcohol do you have on a typical day when you are drinking? Patient does not drink 02/24/2025 12:52 PM EDT Rosy Willams Q3: How often do you have six or more drinks on one occasion? Never 02/24/2025 12:52 PM EDT Rosy Willams documented as of this encounter Miscellaneous Notes * Addendum Note - Jeanne Franz MD - 02/24/2025 1:00 PM EDTAddended by: JEANNE FRANZ on: 02/27/2025 09:26 AM Modules accepted: Orders, Level of Service * H&P - Tim Coleman MD - 02/24/2025 1:00 PM EDT Images from the original note were not included. Chief Complaint: Extent I TAAA Referring Physician: Dr. Mancera HPI 69 year old woman presents in consultation for Extent I TAAA which was incidentally discovered on CT obtained for shoulder pain. Evaluated at [facility] with plans for staged repair including elephant trunk followed by endovascular repair. She presents today for second opinion and as is closer to home with a shorter drive. CTA shows maximal diameter of 6.2 cm in descending thoracic aorta. 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 Denies back/chest/abdominal pain or symptoms of TIA/stroke. She does report BLE neuropathy and hip OA. PMH significant for HTN, HLD, OA requiring steroid injections, cerebral venous sinus thrombosis, former smoker quit in 2018. No known Fhx of aortic aneurysm. She takes Eliquis & statin. Vascular Surgery History: (Date - Procedure - Hospital - Doctor) N/A I personally and independently reviewed and interpreted the CT Images from today's visit which showed: extent I TAAA measuring up to 6.2 cm in descending thoracic aorta I reviewed the following co-morbidities which are stable and controlled: Problem List[1] The following portions of the chart were reviewed this encounter and updated as appropriate: Subjective Additional Required PreOP H&P Elements: Past Medical History[2] Surgical History[3] Family History[4] Social History[5] Employer: No address on file. Travel History Relevant International Travel History: Travel Screening Question Response Have you been in contact with someone who was sick? No / Unsure Do you have any of the following new or worsening symptoms? None of these Have you traveled internationally or domestically in the last month? No Travel History Travel since 01/24/25 No documented travel since 01/24/25 Relevant Domestic Travel History: N/A Immunizations Reviewed VACCINE / DOSE DATE DATE DATE DATE DATE Flu 06/19/2014 06/23/2015 07/20/2016 05/28/2020 07/22/2022 Tetanus Pneumovax 09/19/2019 07/03/2023 Shingles 09/19/2019 Allergies Patient has no known allergies. Medications Current Medications[6] Review of Systems All other systems reviewed and are negative. Objective Physical Exam Constitutional: well developed, well nourished, and in no acute distress Abdomen: Soft, non-tender, normal bowel sounds; no bruits, organomegaly or masses. Skin: Axis, warm, well perfused Assessment/Plan In Summary: Joi Marcial is a 69 y.o. year old female who we saw today in clinic for extent 1 TAAA measuring up to 6.2 cm in descending thoracic aorta. CTA also shows 70-80% right ICA stenosis and left GLYCERIN SUPERVISOR stenosis. I discussed the test interpretations and management with associated orders of the following medicalconditions of: Problem List Items Addressed This Visit 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) - Primary Hypertension Asymptomatic stenosis of right carotid artery Relevant Orders Case Request Operating Room: right TCAR; shockwave (Completed) Case discussed at multi-D complex aortic conference. Plan is for a staged approach. Dr. Nicholson and I discussed the right 80% ICA lesion, and this will need to be addressed prior to ascending aorta, arch, and common carotid debranching procedure. So the plan is: Right TCAR Coronary angiogram Open ascending aortic repair with innominate and LCCA debranching Zone 2 TEVAR TBE Endovascular repair of TAAA with PMEG or TAMBE This plan was discussed at length with Mrs. Marcial. We discussed TCAR on 03/13 and the risks, benefits and alternatives. She is currently on elliquis per Dr. Hernandez in [place]. We will start her on plavix now, and she will continue her elliquis. On 03/12, she will not take the elliquis and not take the lisinopril,, and will start to take ASA 81mg instead. She will continue to take all her other meds. 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) BMI 26.0-26.9,adult Asymptomatic stenosis of right carotid artery [2] Past Medical History: Diagnosis Date Aneurysm (CMS/HCC) 2024 Hyperlipidemia Hypertension 1990 Obesity [3] Past Surgical History: Procedure Laterality Date BACK SURGERY CHOLECYSTECTOMY 1971 FOOT SURGERY HYSTERECTOMY TOTAL HIP ARTHROPLASTY Left [4] Family History Problem Relation Name Age of Onset Hypertension Mother Heart disease Father Diabetes type II Sister Cancer Brother Diabetes type II Brother Sudden Brother [5] Social History Tobacco Use Smoking status: Former Types: Cigarettes Passive exposure: Past Tobacco comments: Quit smoking 2017 smoked 1ppd for 40 years Vaping Use Vaping status: Never Used Substance Use Topics Alcohol use: Not Currently Drug use: Yes Types: Marijuana [6] Current Outpatient Medications Medication Sig Dispense Refill ALPRAZolam (Xanax) 0.5 MG tablet Take 0.5 mg by mouth 2 (two) times a day. apixaban (Eliquis) 5 MG tablet Take 1 tablet (5 mg total) by mouth 2 (two) times a day. 60 tablet 2 atorvastatin (Lipitor) 40 MG tablet Take 1 tablet (40 mg total) by mouth every night. (Patient not taking: Reported on 02/26/2025) 30 tablet 11 bisoprolol (Zebeta) 10 MG tablet Take 1 tablet by mouth 1 time each day. cholecalciferol (D-5000) 5,000 Units tablet Take 1 tablet by mouth 1 time each day. lisinopril 20 MG tablet Take 1 tablet by mouth 1 time each day. lisinopril-hydroCHLOROthiazide 20-25 MG tablet Take 1 tablet by mouth daily. Multiple Vitamins-Minerals (CENTRUM SILVER 50+WOMEN PO) Take by mouth. PARoxetine (Paxil) 20 MG tablet Take 20 mg by mouth 1 (one) time each day. VITAMIN D, ERGOCALCIFEROL, PO Take by mouth. (Patient not taking: Reported on 02/26/2025) atorvastatin (Lipitor) 20 MG tablet Take 1 tablet by mouth daily. No current facility-administered medications for this visit. documented in this encounter Plan of Treatment Upcoming Encounters Date Type Department Care Team (Late st Contact Info) Description 05/14/2025 12:30 PM EDT Office Visit [facility] [address] [facility] [address] [place] [address] Jose C Nicholson MD [facility] [address] [facility] [address] [place] [phone] 05/21/2025 9:00 AM EDT Appointment [facility] Vascular Lab [address] Floor [address] [place] [id number] 05/21/2025 10:20 AM EDT Office Visit [facility] [address] [place] [address] Jeanne Franz MD [address] [facility] [address] [place] [address] documented as of this encounter Visit Diagnoses Diagnosis 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)- Primary Hypertension, unspecified type Asymptomatic stenosis of right carotid artery documented in this encounter Additional Health Concerns Assessment Noted Time A fall risk assessment has been complete d for the patient 02/24/2025 12:59 PM EDT A Body Mass Index follow-up plan has been documented for the patient 02/25/2025 9:56 AM EDT documented as of this encounter Care Teams Anode Crew Supervisor Relationship Specialty Start Date End Date Edwardo Sheehan MD [address] [place] [address] PCP - General 12/19/22 Jose R Umana MD [address] [facility] [address] [place] [address] Referring Physician Cardiology 01/23/25 Kevin Mancera MD [address] [place] [address] [address] [place] [address] Referring Physician 01/31/25 documented as of this encounter
--- OUTSIDE RECORDS SUMMARY | 2025-02-26 08:30 | XMS_ITS | Encounter Summary ---
Author Organization Healthcare Address [address] 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); Asymptomatic stenosis of right carotid artery Social History Tobacco Use Types Packs/Day Years Used Date Smoking Tobacco: Former Cigarettes Passive Smoke Exposure: Past Comments:Quit smoking 2018 s moked 1ppd for 40 years Alcohol Use Standard [...] Sign Reading Time Taken Comments Blood Pressure 157/80 02/26/2025 9:05 AM EDT Pulse 54 02/26/2025 8:53 AM EDT Temperature - - Respiratory Rate - - Oxygen Saturation 97% 02/26/2025 8:53 AM EDT Inhaled Oxygen Concentration - - Weight 73.2 kg (161 lb 7.8 oz) 02/26/2025 8:53 A M EDT Height 167.6 cm (5' 6 ) 02/26/2025 8:53 AM EDT Body Mass Index 26.06 02/26/2025 8:53 AM EDT documented in this encounter Miscellaneous Notes * Progress Notes - Russ Ferro MD - 02/26/2025 8:30 AM EDT Reason for visit / Chief Complaint: 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 female with hypertension, and cerebral venous sinus thrombosis, presents for ascending and descending aortic aneurisms discovered on CT scans ordered by her heat reader. 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 She was evaluated at [facility] with plans for staged repair including elephant trunk followed by endovascular repair however she wanted to be closer to home for a potential procedure. CTA shows maximal diameter of 6.2 cm in descending thoracic aorta. She was seen by vascular surgery yesterday who is planning for a staged procedure with CT surgery. No chest pain or shortness of breath. No syncope. Her blood pressure usually runs high at home especially in the morning before he medications. She has not had a heart cath. Medical History Her chronic comorbid conditions that impact our treatment planning include: Cardiac Surgery: The comorbid conditions that impact and complicate our treatment planning include:HTN, HLD, cerebral venous sinus thrombosis, osteoarthitis NYHA Classification: Class I: No symptoms with ordinary activity. 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) 12/26/2024 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 Medical History: Past Medical History: Diagnosis Date Aneurysm (CMS/HCC) 2024 Hyperlipidemia Hypertension 1989 Obesity Surgical History: Surgical History[1] Social History: Tobacco: Tobacco Use: Medium Risk (02/24/2025) Patient History Smoking Tobacco Use: Former Smokeless Tobacco Use: Unknown Passive Exposure: Past Alcohol: Alcohol Use: Not At Risk (02/24/2025) AUDIT-C Frequency of Alcohol Consumption: Never Average Number of Drinks: Patient does not drink Frequency of Binge Drinking: Never Illicit drug use: Social History Substance and [...] mouth 2 (two) times a day. Yes Kalia Aburto MD apixaban (Eliquis) 5 MG tablet Take 1 [...] needed 01/30/25 Kalia Aburto MD Physical exam: There were no vitals taken for this visit. General: alert and oriented, appropriate HEENT: normocephalic, atraumatic, normal external ears and nose Eyes: no scleral icterus, normal conjunctiva Neck: supple, no trachea deviation Lungs: symmetric chest rise, non-labored breathing Heart: Regular rate, well perfused Abdomen: soft NT/ND, Extremities: no peripheral edema Skin: no rash, no cyanosis and warm to touch Psychiatric: oriented to person/place/time and normal mood/affect Imaging: CT Angiogram chest from 12/26/2024 ([facility]) 1.Diffuse aortic fusiform aneurysm measuring up to [...] below recommendations. CT angio Chest from 01/14/2025 ([facility]) - Thoracoabdominal aneurysmal atherosclerotic aortic disease with maximal dimension of 6.2x6.0cm in the proximal DESCENDING THORACIC AORTA associated with significant intra luminal layered thrombus and extending to the level of the renal arteries. - AORTIC ROOT: 4.0 cm measured [id number] mid ASCENDING THORACIC AORTA: 4.4 cm distal ASCENDING THORACIC AORTA: 4.5 cm mid AORTIC ARCH: 4.5 cm - Calcified atherosclerotic changes of the coronary arteries, precluding precise assessment with CT. ECHO 11/2024: EF 55%, trace AI Impression: Joi Marcial is a 69 y.o. female with hypertension, and cerebral venous sinus thrombosis, presents for ascending and descending aortic aneurisms discovered on CT scans ordered by her heat reader. 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 She was evaluated at [facility] with plans for staged repair including elephant trunk followed by endovascular repair however she wanted to be closer to home for a potential procedure. CTA shows maximal diameter of 6.2 cm in descending thoracic aorta. She was seen by vascular surgery yesterday who is planning for a staged procedure with CT surgery. Imaging reviewed. Patient needs a staged debranching procedure and likely ascending aorta replacement with her 4.5 to 4.6cm ascending size. Plan: Patient needs her right carotid stenosis addresses by vascular surgery and a left heart cath prior to surgery PFTs Return to clinic after imaging [1] Past Surgical History: Procedure Laterality Date BACK SURGERY CHOLECYSTECTOMY 1971 FOOT SURGERY HYSTERECTOMY TOTAL HIP ARTHROPLASTY Left [2] No Known Allergies Cosigned by Jose C Nicholson MD at 02/28/2025 8:49 AM EDT Associated attestation - Jose C Nicholson MD - 02/28/2025 8:49 AM EDT I saw and evaluated the patient with the resident/fellow. I discussed the case with the resident/fellow and agree with the findings and plan as documented. documented in this encounter Plan of Treatment Upcoming Encounters Date Type Department Care Team (Late st Contact Info) Description 05/14/2025 12:30 PM EDT Office Visit [facility] Cardi[facility] [address], [address] [place] [address] Jose C Nicholson MD [address] [place] [address] 05/21/2025 9:00 AM EDT Appointment [facility] [address] [place] [address] 05/21/2025 10:20 AM EDT Office Visit [facility] [address] [place] [address] [address] [place] [address] Cedrick Franz MD [address] [place] [address] documented as of this encounter Results * (ABNORMAL) Pulmonary function testing (03/10/2025 3:29 PM EDT) AKA1BRAI 3.25 2.20 - 3.89 L VYAIRE PFT WJI5KQL 3.11 2.20 - 3.89 L VYAIRE PFT FVC PRED 3.02 VYAIRE PFT FVC LLN 2.20 VYAIRE PFT FVCPREZSCORE 0.17 VYAIRE PFT FVCPRE%PRED 103 % % VYAIRE PFT FVCPOSTZSCORE 0.44 VYAIRE PFT FVCPOST%PRED 108 % % VYAIRE PFT FVCCHNG 143.00 VYAIRE PFT FVC%CHG 5 % % VYAIRE PFT FVC PREDAUT US_Quanjer GLI (2011) VYAIRE PFT FVC Z-SCORE 0.17 0.44 VYAIRE PFT QRH21NOBF 2.79 1.69 - 2.94 L VYAIRE PFT FEV1 PRE 2.59 1.69 - 2.94 L VYAIRE PFT FEV1 PRED 2.33 VYAIRE PFT FEV1 LLN 1.69 VYAIRE PFT TRS7YFBUTOTTL 0.68 VYAIRE PFT FEV1_Pre%Pred 111 % % VYAIRE PFT FQH3VEFOAWFHEQ 1.25 VYAIRE PFT EZA7UKTX%PRED 120 % % VYAIRE PFT LDG3VNPU 208.50 VYAIRE PFT FEV1%CHG 8 % % VYAIRE PFT FEV1 PREDAUTH US_Quanjer GLI (2011) VYAIRE PFT FEV1 Z-SCORE 0.68 1.25 VYAIRE PFT BIK7SNL1OMCZ 85.93 64.40 - 89.25 % VYAIRE PFT FEV1/FVC PRE 83.18 64.40 - 89.25 % VYAIRE PFT WDT7UMDJEOX 78 VYAIRE PFT QIB9HESOBT 64 VYAIRE PFT EZZ8FEUISWWAZLVW 0.75 VYAIRE PFT BWS4RFOYAG%PRED 107 % % VYAIRE PFT ZNH0ZZRLEWLQTBQSH 1.15 VYAIRE PFT BJC4WBJVMRL%PRED 111 % % VYAIRE PFT DXJ5IQUQOVI 2,754 VYAIRE PFT PZC3MJW%CHG 3 % % VYAIRE PFT HYR3EGLNTPCE [facility] (2011) VYAIRE PFT QDD0QLFWEVANT 1 1 VYAIRE PFT BJT81-15%_POST 3.47(A) 0.88 - 3.41 L/s VYAIRE PFT BII43-23% PRE 2.78 0.88 - 3.41 L/s VYAIRE PFT DHC68-72%_Pred 1.92 VYAIRE PFT DOH7775%LLN 0.88 VYAIRE PFT UMR4504%PREZSCORE 1.01 VYAIRE PFT PAL3618%PRE%PRED 145 % % VYAIRE PFT FMZ1816%POSTZSCORE 1.71 VYAIRE PFT TKH8374%POST%PRED 181 % % VYAIRE PFT UFZ0938%CHNG 698.47 VYAIRE PFT HYZ3921%%CHG 25 % % VYAIRE PFT SSY7267%PREDAUTB[facility] (2011) VYAIRE PFT UEB0MSFW 4.89 4.14 - 7.78 L/s VYAIRE PFT PEF PRE 5.94 4.14 - 7.78 L/s VYAIRE PFT PEF PRED 5.96 VYAIRE PFT PEF LLN 4.14 VYAIRE PFT PEFPREZSCORE -0.02 VYAIRE PFT PEFPRE%PRED 100 % % VYAIRE PFT PEFPOSTZSCORE -0.96 VYAIRE PFT PEFPOST%PRED 82 % % VYAIRE PFT PEFCHNG -1,042.00 VYAIRE PFT PEF%CHG -18 % % VYAIRE PFT PEF PREDAUT NHANES III (1998) VYAIRE PFT LDUASRHOTOVSYWVL7AFT 15.76 14.94 - 25.97 ml/(min* mmHg) VYAIRE PFT DLCOSINGLEBREATH PRED 19.88 VYAIRE PFT DLCOSINGLEBREATH LLN 14.94 VYAIRE PFT DLCOSINGLEBREATH Z-SCORE -1.35 VYAIRE PFT DLCOSINGLEBREATH % PRED 79.3 % VYAIRE PFT DLCOSINGLEBREATH PREDAUT Stanojevic TLCO GLI (2019) VYAIRE PFT DLCOSINGLEBREATH Z-SCORE -1.35 03/11/2025 9:01 AM EDT VYAIRE PFT QOOJWDIKSRNKKMVHQ6AP E 15.76 14.94 - 25.97 ml/(min* mmHg) VYAIRE PFT DLCOCSINGLEBREATH PRED 19.88 VYAIRE PFT DLCOCSINGLEBREATH LLN 14.94 VYAIRE PFT DLCOCSINGLEBREATH Z-SCORE -1.35 VYAIRE PFT DLCOCSINGLEBREATH % PRED 79.3 % VYAIRE PFT DLCOCSINGLEBREATH PREDNEW [facility] Stanojevic TLCO GLI (2019) VYAIRE PFT IAMJTW4WRD 3.47 3.09 - 5.15 ml/(min* mmHg*L) VYAIRE PFT DLCOVAPRED 4.05 VYAIRE PFT DLCOVALLN 3.09 VYAIRE PFT DLCOVAZSCORE -0.97 VYAIRE PFT DLCOVA%PRED 85.6 % VYAIRE PFT DLCOVAPREDAUTH Stanojevic TLCO GLI (2019) VYAIRE PFT DLCOVAZSCORE -0.97 03/11/2025 9:01 AM EDT VYAIRE PFT NJBFIHSHR6FKH 3.47 3.09 - 5.15 ml/(min* mmHg*L) VYAIRE PFT DLCOC SB/VA PRED 4.05 VYAIRE PFT DLCOC SB/VA LLN 3.09 VYAIRE PFT DLCOC SB/VA Z-SCORE -0.97 VYAIRE PFT DLCOC SB/VA % PRED 85.6 % VYAIRE PFT DLCOC SB/VA PREDAUT Stanojevic TLCO GLI (2019) VYAIRE PFT DLCOC SB/VA Z-SCORE -0.97 03/11 9:01 AM EDT VYAIRE PFT CKIXGUCLVTACKP7VJE 4.54 3.89 - 5.95 L VYAIRE PFT VASINGLEBREATH PRED 4.87 VYAIRE PFT VASINGLEBREATH LLN 3.89 VYAIRE PFT VASINGLEBREATH Z-SCORE -0.52 VYAIRE PFT VASINGLEBREATH % PRED 93.4 % VYAIRE PFT VASINGLEBREATH PREDNEW [facility]EX[facility] Stanojevic TLCO GLI (2019) VYAIRE PFT VASINGLEBREATH Z-SCORE -0.52 03/11/2025 9:01 AM EDT VYAIRE PFT KJPPAHMHTCTDRQB7EFU 3.19 2.20 - 3.89 L VYAIRE PFT IVCSINGLEBREATH PRED 3.02 VYAIRE PFT IVCSINGLEBREATH LLN 2.20 VYAIRE PFT IVCSINGLEBREATH Z-SCORE 0.33 VYAIRE PFT IVCSINGLEBREATH % PRED 105.7 % VYAIRE PFT IVCSINGLEBREATH PREDNEW [facility] US_Quanjer GLI (2011) VYAIRE PFT MESHA% VCMAX PRE 99.91 % VYAIRE PFT TLC SB PRE 4.71 4.21 - 6.57 L VYAIRE PFT TLCSINGLEBREATH PRED 5.32 VYAIRE PFT TLCSINGLEBREATH LLN 4.21 VYAIRE PFT TLCSINGLEBREATH Z-SCORE -0.88 VYAIRE PFT TLCSINGLEBREATH % PRED 88.5 % VYAIRE PFT TLCSINGLEBREATH PREDAUTSt. Elizabeth Hospital Lung volumes GLI (2019)__ VYAIRE PFT HB PRE 13.40 g(Hb)/dL VYAIRE PFT POO2VGS 4.18(A) 4.21 - 6.57 L VYAIRE PFT TLCPRED 5.32 VYAIRE PFT TLCLLN 4.21 VYAIRE PFT TLCULN 6.57 VYAIRE PFT TLCZSCORE -1.70 VYAIRE PFT TLC%PRED 78.5 % VYAIRE PFT TLCPREDAUTSt. Elizabeth Hospital Lung volumes GLI (2019)__ VYAIRE PFT VC0PRE 3.20 2.20 - 3.89 L VYAIRE PFT VCPRED 3.02 VYAIRE PFT VCLLN 2.20 VYAIRE PFT VCULN 3.89 VYAIRE PFT VCZSCORE 0.34 VYAIRE PFT VC%PRED 105.8 % VYAIRE PFT VCPREDAUT US_Quanjer GLI (2011) VYAIRE PFT IC0PRE 1.74 1.55 - 3.12 L VYAIRE PFT ICPRED 2.33 VYAIRE PFT ICLLN 1.55 VYAIRE PFT ICULN 3.12 VYAIRE PFT IC Z-SCORE -1.25 VYAIRE PFT IC%PRED 74.4 % [facility]AIRE PFT ICPREDC[facility] Lung volumes GLI (2019)__ VYAIRE PFT BDPIUVXL6EKW 2.44 2.15 - 4.11 L VYAIRE PFT FRCPLETH PRED 3.02 VYAIRE PFT FRCPLETH LLN 2.15 VYAIRE PFT FRCPLETH ULN 4.11 VYAIRE PFT FRCPLETH Z-SCORE -1.04 VYAIRE PFT FRCPLETH % PRED 80.9 % VYAIRE PFT FRCPLETH PREDChelsea Marine Hospital Lung volumes GLI (2019)__ VYAIRE PFT TIN9UFQ 1.46 0.21 - 1.68 L VYAIRE PFT ERVPRED 0.78 VYAIRE PFT ERVLLN 0.21 VYAIRE PFT ERVULN 1.68 VYAIRE PFT ERV Z-SCORE 1.29 VYAIRE PFT ERV%PRED 187.2 % VYAIRE PFT ERVPUniversity of [facility] Lung volumes GLI (2019)__ VYAIRE PFT RV0PRE 0.98(A) 1.26 - 3.22 L VYAIRE PFT RVPRED 2.11 VYAIRE PFT RVLLN 1.26 VYAIRE PFT RVULN 3.22 VYAIRE PFT RVZSCORE -2.33 VYAIRE PFT RV%PRED 46.5 % VYAIRE PFT RVPREDChelsea Marine Hospital Lung volumes GLI (2019)__ VYAIRE PFT RV%YJT6EPF 23.49(A) 27.11 - 52.76 % VYAIRE PFT RV%TLCPRED 40 VYAIRE PFT RV%TLCLLN 27 VYAIRE PFT RV%TLCULN 53 VYAIRE PFT RV%TLCZSCORE -2.15 VYAIRE PFT RV%TLC%PRED 59.4 % VYAIRE PFT RV%TLCPREDAUTSt. Elizabeth Hospital Lung volumes GLI (2019)__ VYAIRE PFT Anatomical Region Laterality Modality PFT 03/10/2025 1:56 PM EDT Narrative 03/12/2025 1:28 PM EDT Pulmonary Function Testing Report Joi Marcial underwent pulmonary function testing today at the [facility]. The patient underwent spirometry, lung volumes by body plethysmography, and diffusion capacity testing. All tests were appropriately administered via ATS/ERS criteria. All tests are acceptable and interpretable unless noted otherwise. Spirometry: Not acceptable or repeatable, however best results are normal spirometry. Interpret with caution. Lung Volumes: Not acceptable or repeatable. Diffusion Capacity: Not acceptable or repeatable, however best results are normal. Trend: There are no prior studies for comparison. 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) Asymptomatic stenosis of right carotid artery documented in this encounter Additional Health Concerns Assessment Noted Time A fall risk assessment has been complete d for the patient 02/26/2025 9:04 AM EDT A Body Mass Index follow-up plan has been documented for the patient 02/28/2025 8:49 AM EDT documented as of this encounter Care Teams Steel Rule Inspector Relationship Specialty Start Date End Date Edwardo Sheehan MD [address] [place] [address] PCP - General 12/19/22 Jose R Umana MD [address] [facility] [address], [place] [id number] Referring Physician Cardiology 01/23/25 Kevin Mancera MD [address] [facility] [address] [place] [address] Referring Physician 01/31/25 documented as of this encounter
--- OUTSIDE RECORDS SUMMARY | 2025-03-04 08:00 | XMS_ITS | Encounter Summary ---
Author Organization Healthcare Address [address] [place] [address] Care Team Providers Care Psychology Associate Name Role Phone Edwardo Sheehan MD Primary Care Provider [phone] Jose R Umana MD Unavailable [phone] Kevin Mancera MD Unavailable [phone] Encounter Details Date Type Department Care Team (Late st Contact Info) Description 03/04/2025 8:00 AM EDT Pre-Admission Testing [facility] [address] [place] [address] Social History Tobacco Use Types Packs/Day Years [...] on file documented as of this encounter Miscellaneous Notes * PAT Evaluation Note - Marisela Mae, MOTION PICTURES CARTOONIST - 03/04/2025 8:00 AM EDT Images from the original note were not included. HPI Joi Marcial is a 69 y.o. female who presents with Extent I TAAA which was incidentally discovered on CT obtained for shoulder pain. Now scheduled for Right TCAR with Dr Franz on 03/13/25. CTA shows maximal diameter of 6.2 cm in descending thoracic aorta. 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 Plan is for a staged approach. Drs. Nicholson and Maria M discussed the right 80% ICA lesion, this will need to be addressed prior to ascending aorta, arch, and common carotid debranching procedure. So the plan is: Right TCAR Coronary angiogram Open ascending aortic repair with innominate and LCCA debranching Zone 2 TEVAR TBE Endovascular repair of TAAA with PMEG or TAMBE Past Medical History[1] Family History[2] Social History[3] SURGICAL HISTORY: Surgical History[4] Allergies[5] MEDICATIONS: Current Medications[6] ROS Anesthesia: Date of last anesthetic: Most recent G.A 2020. history of previous anesthesia. Does not have a history of anesthetic complications and obstructivesleep apnea. Cardiovascular: hyperlipidemia. Does not have angina, CAD, CHF, dysrhythmias, pacemaker or past IA. hypertension: Exercise tolerance is 1 flight of stairs. Cardio additional comments: Denies any active current cardiac complaints. CTA shows maximal diameter of 6.2 cm in descending thoracic aorta. Ascending and descending aortic aneurysm discovered on CT scans Dr Jose R SMITH. Respiratory: Does not have home oxygen. no asthma: no COPD: Has not had an upper respiratory infection in last 30 days. Has not had pneumonia in the last 30 days or COVID in the last 30 days. HEENT: HEENT additional comments: Partial lower. . Neurological: no seizures: Did not have a cerebrovascular accident. Neuro additional comments: Cerebral venous sinus thrombosis. Musculoskeletal: arthritis. Does not have cervical spine limited mobility. Gastrointestinal: Does not have GERD.Does not have cirrhosis. Genitourinary: Does not have renal disease. Hematological/Lymphatic: History of no DVT. History of no pulmonary embolism. Not in a hypercoagulable state. no history of chemotherapy no history of radiation Does not have MRSA or tuberculosis. Hem/Lymph ROS additional comments: Eliquis, Plavix & ASA. Endocrine/Metabolic: does not have diabetes mellitus. Does not have thyroid disorder. PFT 03/10/25: ECHO 11/2024: EF 55%, trace AI [facility] 03/12/25: No significant epicardial CAD. Lab Results Component Value Date WBC 6.97 01/09/2023 HGB 14.0 01/09/2023 HCT 42.7 01/09/2023 MCV 87 01/09/2023 PLT 263 01/09/2023 Lab Results Component Value Date GLUCOSE 99 01/09/2023 BUN 20 01/09/2023 CREATININE 0.87 01/09/2023 BCR 23 01/09/2023 NA 139 01/09/2023 K 3.9 01/09/2023 CL 101 01/09/2023 CO2 28 01/09/2023 ALBUMIN 3.8 01/07/2023 ALKPHOS 76 01/07/2023 BILITOT <0.2 (L) 01/07/2023 Lab Results Component Value Date HGBA1C 5.2 01/07/2023 Lab Results Component Value Date INR 1.0 01/07/2023 Visit Vitals OB Status Postmenopausal Smoking Status Former 02/26/2025 9:05 AM Vitals Systolic 157 Diastolic 80 Visit Report Report Physical Exam Anesthesia Plan ASA 3 Anesthesia technique(s) discussed with the patient/family: general Comment: LAVON phone screen. Marisela Mae APRN [1] Past Medical History: Diagnosis Date Aneurysm (CMS/HCC) 2024 Hyperlipidemia Hypertension 1989 Obesity [2] Family History Problem Relation Name Age of Onset Hypertension Mother Heart disease Father Diabetes type II Sister Cancer Brother Diabetes type II Brother Sudden Brother [3] Social History Tobacco Use Smoking status: Former Types: Cigarettes Passive exposure: Past Tobacco comments: Quit smoking 2018 smoked 1ppd for 40 years Vaping Use Vaping status: Never Used Substance Use Topics Alcohol use: Not Currently Drug use: Yes Types: Marijuana [4] Past Surgical History: Procedure Laterality Date BACK SURGERY CHOLECYSTECTOMY 1972 FOOT SURGERY HYSTERECTOMY TOTAL HIP ARTHROPLASTY Left [5] No Known Allergies [6] Current Outpatient Medications: ALPRAZolam, Take 0.5 mg by mouth 2 (two) times a day. apixaban, Take 1 tablet (5 mg total) by mouth 2 (two) times a day. aspirin, Take 1 tablet by mouth daily. atorvastatin, Take 1 tablet by mouth daily. atorvastatin, Take 1 tablet (40 mg total) by mouth every night. (Patient not taking: Reported on 02/26/2025) bisoprolol, Take 1 tablet by mouth 1 time each day. D-5000, Take 1 tablet by mouth 1 time each day. clopidogrel, Take 1 tablet by mouth daily. lisinopril, Take 1 tablet by mouth 1 time each day. lisinopril-hydroCHLOROthiazide, Take 1 tablet by mouth daily. Multiple Vitamins-Minerals (CENTRUM SILVER 50+WOMEN PO), Take by mouth. PARoxetine, Take 20 mg by mouth 1 (one) time each day. VITAMIN D, ERGOCALCIFEROL, PO, Take by mouth. (Patient not taking: Reported on 02/26/2025) * Preprocedure Instructions - Marisela Mae APRN - 03/04/2025 8:00 AM EDT Home Medication Instructions Current Medications Medication Instructions ALPRAZolam (Xanax) 0.5 MG tablet Take morning of surgery apixaban (Eliquis) 5 MG tablet Hold on 03/12/[address] Franz aspirin 81 MG EC tablet Take morning of surgery atorvastatin (Lipitor) 20 MG tablet Take night before surgery bisoprolol (Zebeta) 10 MG tablet Take night before surgery cholecalciferol (D-5000) 5,000 Units tablet Hold day of surgery clopidogrel (Plavix) 75 MG tablet Continue medication per Dr Franz lisinopril 20 MG tablet Hold on 03/12/[address] Franz lisinopril-hydroCHLOROthiazide 20-25 MG tablet Hold on 03/12/[address] Franz Multiple Vitamins-Minerals (CENTRUM SILVER 50+WOMEN PO) Hold day of surgery PARoxetine (Paxil) 20 MG tablet Take morning of surgery General Preoperative Instructions You will be called the business day before surgery with your arrival time No food after midnight the night before surgery. You can drink clear liquids up to 2 hours prior to arrival unless instructed by your surgeon otherwise. Please do not try to get all your hydration in 2 hours prior to arrival. Start the day before surgery drinking more than you usually would. After midnight, you can have clear liquids only (water,apple juice, Gatorade) up to 2 hours prior to arrival. No coffee or tea. No alcohol or smoking prior to surgery Arrive on time to avoid delays Parking/Registration procedure explained You MUST have a responsible adult available for transport to and from hospital Visitation policy for the day of surgery reviewed Bring insurance card, photo ID, along with power of deputy county attorney, guardianship or advanced directives if applicable Do not bring money, jewelry or other valuables Hibiclens bathing instructions reviewed if applicable Notify surgeon of fever, illness, any changes or if you decide not to have surgery Diabetes Instructions (If applicable) Take diabetes medication as instructed You may have up to 4 ounces of apple juice 2 hours prior to arrival for surgery for low glucose documented in this encounter Plan of Treatment Upcoming Encounters Date Type Department Care Team (Late st Contact Info) Description 05/14/2025 12:30 PM EDT Office Visit [facility] Cardiothoracic [address] [place] [address], [address] [place] [address] Jose C Nicholson MD [address] [place] [phone] 05/21/2025 9:00 AM EDT Appointment [facility] Vascular Lab [address] [place] [address] [address] [place] [address] 05/21/2025 10:20 AM EDT Office Visit [facility] Comprehensive Vascular Clinic [address] [place] [address] [address] [place] [address] Cedrick Franz MD [address] [place] [address] [address] [place] [address] documented as of this encounter Visit Diagnoses Not on filedocumented in this encounter Additional Health Concerns Assessment Noted Time A fall risk assessment has been complete d for the patient 02/26/2025 9:04 AM EDT A Body Mass Index follow-up plan has been documented for the patient 02/28/2025 8:49 AM EDT documented as of this encounter Care Teams Psychology Associate Relationship Specialty Start Date End Date Edwardo Sheehan MD [address] [place] [address] PCP - General 12/19/22 Jose R Umana MD [address] [facility] [address] [place] [address] Referring Physician Cardiology 01/23/25 Kevin Mancera MD [address] [facility] [address] [place] [address] Referring Physician 01/31/25 documented as of this encounter
--- OUTSIDE RECORDS SUMMARY | 2025-03-10 13:35 | XMS_ITS | Encounter Summary ---
Author Organization [facility] Address [address] 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] Asymptomatic stenosis of right carotid artery [I65.21] Procedures IN LEFT HEART CATH INJECT VETRICULOGRAPHY, IMAGE SUPERVISE/INTERP Left heart catheterization Dion Moeller MD [address] [place] [address] Phone: tel: fax: Cardiac Narrow Gauge [facility]eman [address] [place] [address] Phone: tel: Referral ID Status Reason Start Date Expiration Date Visits Re quested Visits Authorized [id number] 1 1 Encounter Details Date Type Department Care Team (Latest Contact Info) Description 03/10/2025 1:35 PM EDT - 03/10/2025 11:59 PM EDT Hospital Encounter [facility] Pulmonary Function Testing [address] [place] [address] 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 aspirin 81 MG EC tablet Take 1 tablet by mouth daily. 30 tablet 02/27/2025 6 atorvastatin (Lipitor) 20 MG tablet Take 1 tablet by mouth daily. 02/25/2025 bisoprolol (Zebeta) 10 MG tablet Take 1 tablet by mouth nightly. cholecalciferol (D-5000) 5,000 Units tablet Take 1 tablet by mouth 1 time each day. clopidogrel (Plavix) 75 MG tablet Take 1 tablet by mouth daily. 30 tablet 02/27/2025 6 hydroCHLOROthiaz calista (HYDRODiuril) 25 MG tablet Take 2 tablets by mouth daily. lisinopril 20 MG tablet Take 1 tablet by mouth nightly. Multiple Vitamins-Mineral s (CENTRUM SILVER 50+WOMEN PO) Take by mouth. naloxone (Narcan) 4 mg/0.1 mL nasal spray 1. Give 1 spray in nostril for no/slow breathing or cannot wake after opioid use 2. Call 911 3. Repeat in other nostril if symptoms continue 1 each 03/14/2025 PARoxetine (Paxil) 20 MG tablet Take 1 tablet by mouth daily. oxyCODONE (Roxicodone) 5 MG immediate release tablet Take 1 tablet by mouth every 6 hours as needed for moderate pain or severe pain for up to 3 days. 12 tablet 03/14/2025 5 apixaban (Eliquis) 5 MG tablet Take 1 tablet (5 mg total) by mouth 2 (two) times a day. 60 tablet 2 01/09/2023 5 apixaban (Eliquis) 5 MG tablet Take 1 tablet by mouth 2 times a day. 5 atorvastatin (Lipitor) 40 MG tablet Take 1 tablet (40 mg total) by mouth every night. 30 tablet 11 01/09/2023 5 lisinopril-hydro CHLOROthiazide 20-25 MG tablet Take 1 tablet by mouth daily. 12/30/2024 5 VITAMIN D, ERGOCALCIFEROL, PO Take by mouth. documented as of this encounter Plan of Treatment Upcoming Encounters Date Type Department Care Team (Late st Contact Info) Description 05/14/2025 12:30 PM EDT Office Visit [facility] Cardiothoracic [address] [place] [address], [facility] [address] [place] [address] Jose C Nicholson MD 0 [facility] [address] [place] [address] 05/21/2025 9:00 AM EDT Appointment [facility] Vascular Lab [address] [place] [address] [address] [place] [address] 05/21/2025 10:20 AM EDT Office Visit [facility] [address] [place] [address] [address] [place] [address] Cedrick Franz MD [address] [facility] [address] [place] [address] documented as of this encounter Procedures Procedure Name Priority Date/Time Associated Diagnosis Comments HC DIFFUSING CAPACITY - CARBON MONOXIDE DIFFUSING CAPACITY Routine 03/10/2025 3:29 PM EDT 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) Asymptomatic stenosis of right carotid artery documented in this encounter Results * (ABNORMAL) Pulmonary function testing (03/10/2025 3:29 PM EDT) [facility] Signature IGR8XLTE 3.25 2.20 - 3.89 L VYAIRE PFT JNS9YRI 3.11 2.20 - 3.89 L VYAIRE PFT FVC PRED 3.02 VYAIRE PFT FVC LLN 2.20 VYAIRE PFT FVCPREZSCORE 0.17 VYAIRE PFT FVCPRE%PRED 103 % % VYAIRE PFT FVCPOSTZSCORE 0.44 VYAIRE PFT FVCPOST%PRED 108 % % VYAIRE PFT FVCCHNG 143.00 VYAIRE PFT FVC%CHG 5 % % VYAIRE PFT FVC PREDAUTMiddletown Emergency Department[facility] (2011) VYAIRE PFT FVC Z-SCORE 0.17 0.44 VYAIRE PFT HWP36YUEB 2.79 1.69 - 2.94 L VYAIRE PFT FEV1 PRE 2.59 1.69 - 2.94 L VYAIRE PFT FEV1 PRED 2.33 VYAIRE PFT FEV1 LLN 1.69 VYAIRE PFT XVG1AUBPOALYH 0.68 VYAIRE PFT FEV1_Pre%Pred 111 % % VYAIRE PFT MKJ3COHGLITPNP 1.25 VYAIRE PFT KKO9HPZD%PRED 120 % % VYAIRE PFT GPB6POWB 208.50 VYAIRE PFT FEV1%CHG 8 % % VYAIRE PFT FEV[facility] PREDA[facility]rl[facility] (2011) VYAIRE PFT FEV1 Z-SCORE 0.68 1.25 VYAIRE PFT FIC0OPI3HLHR 85.93 64.40 - 89.25 % VYAIRE PFT FEV1/FVC PRE 83.18 64.40 - 89.25 % VYAIRE PFT BYX0FJPBFNM 78 VYAIRE PFT DSE5BJYXXC 64 VYAIRE PFT IJE4DMOMZZPFYREI 0.75 VYAIRE PFT WHX3PNPYST%PRED 107 % % VYAIRE PFT ATF0IOMWZOEIXEYYX 1.15 VYAIRE PFT TUS6DNEVFLO%PRED 111 % % VYAIRE PFT FMY1RIRPZEE 2,754 VYAIRE PFT IDD9OJS%CHG 3 % % VYAIRE PFT QMO5WNSQNOLS [facility] (2011) VYAIRE PFT NIE2VXWBHYUSK 1 1 VYAIRE PFT KXD97-44%_POST 3.47(A) 0.88 - 3.41 L/s VYAIRE PFT ECP64-00% PRE 2.78 0.88 - 3.41 L/s VYAIRE PFT GIM21-51%_Pred 1.92 VYAIRE PFT NIH9413%LLN 0.88 VYAIRE PFT HWB6566%PREZSCORE 1.01 VYAIRE PFT NCI4831%PRE%PRED 145 % % VYAIRE PFT DLN2169%POSTZSCORE 1.71 VYAIRE PFT TFL3643%POST%PRED 181 % % VYAIRE PFT AIG5874%CHNG 698.47 VYAIRE PFT CVB3105%%CHG 25 % % VYAIRE PFT XWC3673%PREDAUTHonorHealth [facility] GLI (2011) VYAIRE PFT JWA8FGYM 4.89 4.14 - 7.78 L/s VYAIRE PFT PEF PRE 5.94 4.14 - 7.78 L/s VYAIRE PFT PEF PRED 5.96 VYAIRE PFT PEF LLN 4.14 VYAIRE PFT PEFPREZSCORE -0.02 VYAIRE PFT PEFPRE%PRED 100 % % VYAIRE PFT PEFPOSTZSCORE -0.96 VYAIRE PFT PEFPOST%PRED 82 % % VYAIRE PFT PEFCHNG -1,042.00 VYAIRE PFT PEF%CHG -18 % % VYAIRE PFT PEF PREDAUT [facility] (1998) VYAIRE PFT JJAZOGSQFXCGQXLN5UHL 15.76 14.94 - 25.97 ml/(min* mmHg) VYAIRE PFT DLCOSINGLEBREATH PRED 19.88 VYAIRE PFT DLCOSINGLEBREATH LLN 14.94 VYAIRE PFT DLCOSINGLEBREATH Z-SCORE -1.35 VYAIRE PFT DLCOSINGLEBREATH % PRED 79.3 % VYAIRE PFT DLCOSINGLEBREATH PREDAUTH [facility] GLI (2019) VYAIRE PFT DLCOSINGLEBREATH Z-SCORE -1.35 03/11/2025 9:01 AM EDT VYAIRE PFT XMPFEVPABYUGRAUHU0QD E 15.76 14.94 - 25.97 ml/(min* mmHg) VYAIRE PFT DLCOCSINGLEBREATH PRED 19.88 VYAIRE PFT DLCOCSINGLEBREATH LLN 14.94 VYAIRE PFT DLCOCSINGLEBREATH Z-SCORE -1.35 VYAIRE PFT DLCOCSINGLEBREATH % PRED 79.3 % VYAIRE PFT DLCOCSINGLEBREATH PREDAUT [facility] GLI (2019) VYAIRE PFT KGQKZY3KSN 3.47 3.09 - 5.15 ml/(min* mmHg*L) VYAIRE PFT DLCOVAPRED 4.05 VYAIRE PFT DLCOVALLN 3.09 VYAIRE PFT DLCOVAZSCORE -0.97 VYAIRE PFT DLCOVA%PRED 85.6 % VYAIRE PFT DLCOVAPREDAUTH [facility] GLI (2019) VYAIRE PFT DLCOVAZSCORE -0.97 03/11/2025 9:01 AM EDT VYAIRE PFT KLXCSBWUE0TFY 3.47 3.09 - 5.15 ml/(min* mmHg*L) VYAIRE PFT DLCOC SB/VA PRED 4.05 VYAIRE PFT DLCOC SB/VA LLN 3.09 VYAIRE PFT DLCOC SB/VA Z-SCORE -0.97 VYAIRE PFT DLCOC SB/VA % PRED 85.6 % VYAIRE PFT DLCOC SB/VA PREDAUT [facility] GLI (2019) VYAIRE PFT DLCOC SB/VA Z-SCORE -0.97 03/11 9:01 AM EDT VYAIRE PFT ZXBGNCVKLQDWJB5GSR 4.54 3.89 - 5.95 L VYAIRE PFT VASINGLEBREATH PRED 4.87 VYAIRE PFT VASINGLEBREATH LLN 3.89 VYAIRE PFT VASINGLEBREATH Z-SCORE -0.52 VYAIRE PFT VASINGLEBREATH % PRED 93.4 % VYAIRE PFT VASINGLEBREATH PREDAUT [facility] GLI (2019) VYAIRE PFT VASINGLEBREATH Z-SCORE -0.52 03/11/2025 9:01 AM EDT VYAIRE PFT BKZEZOEGXUIJCDB7YCI 3.19 2.20 - 3.89 L VYAIRE PFT IVCSINGLEBREATH PRED 3.02 VYAIRE PFT IVCSINGLEBREATH LLN 2.20 VYAIRE PFT IVCSINGLEBREATH Z-SCORE 0.33 VYAIRE PFT IVCSINGLEBREATH % PRED 105.7 % VYAIRE PFT IVCSINGLEBREATH PREDTOHATCHI HEALTH CARE CENTER US_[facility] GLI (2011) VYAIRE PFT MESHA% VCMAX PRE 99.91 % VYAIRE PFT TLC SB PRE 4.71 4.21 - 6.57 L VYAIRE PFT TLCSINGLEBREATH PRED 5.32 VYAIRE PFT TLCSINGLEBREATH LLN 4.21 VYAIRE PFT TLCSINGLEBREATH Z-SCORE -0.88 VYAIRE PFT TLCSINGLEBREATH % PRED 88.5 % VYAIRE PFT TLCSINGLEBREATH PREDAUTPrem[facility] Lung volumes GLI (2019)__ VYAIRE PFT HB PRE 13.40 g(Hb)/dL VYAIRE PFT ZJC1ZNS 4.18(A) 4.21 - 6.57 L VYAIRE PFT TLCPRED 5.32 VYAIRE PFT TLCLLN 4.21 VYAIRE PFT TLCULN 6.57 VYAIRE PFT TLCZSCORE -1.70 VYAIRE PFT TLC%PRED 78.5 % VYAIRE PFT TLCPREDAUTPremier [facility] Lung volumes GLI (2019)__ VYAIRE PFT [...] VYAIRE PFT IC%PRED 74.4 % VYAIRE PFT ICPREDAUTPremier [facility] Lung volumes GLI (2019)__ VYAIRE PFT NZAYHYDV9XSS 2.44 2.15 - 4.11 L VYAIRE PFT FRCPLETH PRED 3.02 VYAIRE PFT FRCPLETH LLN 2.15 VYAIRE PFT FRCPLETH ULN 4.11 VYAIRE PFT FRCPLETH Z-SCORE -1.04 VYAIRE PFT FRCPLETH % PRED 80.9 % VYAIRE PFT FRCPLET PREDAUTPrem[facility] Lung volumes GLI (2019)__ VYAIRE PFT QDB9GGH 1.46 0.21 - 1.68 L VYAIRE PFT ERVPRED 0.78 VYAIRE PFT ERVLLN 0.21 VYAIRE PFT ERVULN 1.68 VYAIRE PFT ERV Z-SCORE 1.29 VYAIRE PFT ERV%PRED 187.2 % VYAIRE PFT ERVPUSA [facility] Lung volumes GLI (2019)__ VYAIRE PFT RV0PRE 0.98(A) 1.26 - 3.22 L VYAIRE PFT RVPRED 2.11 VYAIRE PFT RVLLN 1.26 VYAIRE PFT RVULN 3.22 VYAIRE PFT RVZSCORE -2.33 VYAIRE PFT RV%PRED 46.5 % VYAIRE PFT RVPREDAUT [facility] Lung volumes GLI (2019)__ VYAIRE PFT RV%NSJ1VOJ 23.49(A) 27.11 - 52.76 % VYAIRE PFT RV%TLCPRED 40 VYAIRE PFT RV%TLCLLN 27 VYAIRE PFT RV%TLCULN 53 VYAIRE PFT RV%TLCZSCORE -2.15 VYAIRE PFT RV%TLC%PRED 59.4 % VYAIRE PFT RV%TLCPREDAUTH [facility] Lung volumes GLI (2019)__ VYAIRE PFT Anatomical Region Laterality Modality PFT 03/10/2025 1:56 PM EDT Narrative 03/12/2025 1:28 PM EDT Pulmonary Function Testing Report Joi Marcila underwent pulmonary function testing today at the [facility]. The patient underwent spirometry, lung volumes [...] are no prior studies for comparison. 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) Asymptomatic stenosis of right carotid artery documented in this encounter Additional Health Concerns Assessment Noted Time A fall risk assessment has been complete d for the patient 02/26/2025 9:04 AM EDT A Body Mass Index follow-up plan has been documented for the patient 02/28/2025 8:49 AM EDT documented as of this encounter Care Teams News Copy Editor Relationship Specialty Start Date End Date Edwardo Sheehan MD [address] [place] [address] PCP - General 12/19/22 Jose R Umana MD [address] [facility] [address] [place] [address] Referring Physician Cardiology 01/23/25 Kevin Mancera MD [address] [place] [address] [address] [place] [address] Referring Physician 01/31/25 documented as of this encounter
--- OUTSIDE RECORDS SUMMARY | 2025-03-12 10:26 | XMS_ITS | Encounter Summary ---
Author Organization [facility] Address [address] 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) Asymptomatic stenosis of right carotid artery 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) Procedures VAS US Carotid Duplex Bilateral Sarah lAas APRN [address] [place] [address] Phone: tel: fax: Referral ID Status Reason Start Date Expiration Date Visits Requested Visits Authorized [id number] Pending Review Perform Procedure 03/14/2025 09/13/2026 1 1 * Consultation (Routine) - Authorized Specialty Diagnoses / Procedures Referred By Contac t Referred To Contact Vascular Surgery / [facility] Diagnoses 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) Asymptomatic stenosis of right carotid artery 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) Sarah Alas APRN [address] [place] [address] Phone: tel: fax: Cedrick Franz MD [address] [address] Phone: tel: fax: Referral ID Status Reason Start Date Expiration Date Visits Requested Visits Authorized [id number] Authorized Specialty Services Required 03/14/2025 09/13/2026 1 1 Reason for Visit * Auth/Cert (Routine) Specialty Diagnoses / Procedures Referred By Selma t Referred To Contact Diagnoses 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) Asymptomatic stenosis of right carotid artery 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] Asymptomatic stenosis of right carotid artery [I65.21] Procedures CT LEFT HEART CATH INJECT VETRICULOGRAPHY, IMAGE SUPERVISE/INTERP Left heart catheterization Dion Moeller MD [address] [place] [id number] Phone: tel: fax: [facility] [address] [place] [phone] Phone: tel: Referral ID Status Reason Start Date Expiration Date Visits Re quested Visits Authorized [id number] 1 1 Encounter Details Date Type Department Care Team (Latest Contact Info) Description 03/12/2025 10:26 AM EDT - 03/14/2025 12:15 PM EDT Hospital Encounter [facility] Inpatient [address] [place] [address] Dion Moeller MD [address] [place] [address] Cedrick Franz MD [address] [address] 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) (Primary Dx); 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 Patient declined 03/14/2025 Within the last year, have y ou been humiliated or emotionally abused in other ways by your partner or ex-partner? Patient declined 03/14/2025 Within the last year, have y ou been kicked, hit, slapped, or otherwise physically hurt by your partner or ex-partner? Patient declined 03/14/2025 Within the last year, have y ou been raped or forced to have any kind of sexual activity by your partner or ex-partner? Patient declined 03/14/2025 Social Connection and Isolation Panel Answer Date Recorded In a typical week, how many times do you talk on the phone with family, friends, or neighbors? Patient declined 03/14/2025 How often do you get togethe r with friends or relatives? Patient declined 03/14/2025 How often do you attend spiritism or buddhist serv ices? Patient declined 03/14/2025 Do you belong to any clubs o r organizations such as spiritism groups, unions, fraternal or athletic groups, or school groups? Patient declined 03/14/2025 How often do you attend meet ings of the clubs or organizations you belong to? Patient declined 03/14/2025 Are you , , di vorced, , never , or living with a partner? Patient declined 03/14/2025 AUDIT-C Answer Date Recorded Q1: How often do you have a drink containing alc ohol? Patient declined 03/14/2025 Q2: How many drinks containi ng alcohol do you have on a typical day when you are drinking? Patient declined 03/14/2025 Q3: How often do you have si x or more drinks on one occasion? Patient declined 03/14/2025 [facility] Occupational Stress Questionnaire Answer Date Recorded Do you feel stress - tense, restless, nervous, or anxious, or unable to sleep at night because your mind is troubled all the time - these days? Patient declined 03/14/2025 Exercise Vital Sign Answer Date Recorde d On average, how many days pe r week do you engage in moderate to strenuous exercise (like a brisk walk)? Patient declined Minutes of Exercise per Session Not on file 03/14/2025 Hunger Vital Sign Answer Date Recorded Within the past 12 months, y ou worried that your food would run out before you got the money to buy more. Patient declined Within the past 12 months, t he food you bought just didn't last and you didn't have money to get more. Patient declined PRAPARE - Transportation Answer Date Re corded In the past 12 months, has l ack of transportation kept you from medical appointments or from getting medications? Patient declined 03/14/2025 In the past 12 months, has l ack of transportation kept you from meetings, work, or from getting things needed for daily living? Patient declined 03/14/2025 Housing Stability Vital Sign Answer Juancho e Recorded In the last 12 months, was t here a time when you were not able to pay the mortgage or rent on time? Patient declined 03/14/20 Number of Times Moved in the Last Year Not on fi le 03/14/2025 Homeless in the Last Year Not on file 2024 Utilities Answer Date Recorded In the past 12 months has th e electric, gas, oil, or water company threatened to shut off services in your home? Patient declined 03/14/2025 Comments No Sex and Gender Information Value Date Recorded Sex Assigned at Not on file Legal Sex Female 7:38 PM EDT Gender Identity Not on file Sexual Orientation Not on file documented as of this encounter Last Filed Vital Signs Vital Sign Reading Time Taken Comments Blood Pressure 103/19 03/14/2025 9:00 AM EDT Pulse 62 03/14/2025 10:00 AM EDT Temperature 36.8 C (98.3 F) 03/14/2025 8:00 AM EDT Respiratory Rate 18 03/14/2025 10:00 AM EDT Oxygen Saturation 86% 03/14/2025 10:00 AM EDT Inhaled Oxygen Concentration - - Weight 71.7 kg (158 lb) 03/13/2025 6:14 AM EDT Height 167.6 cm (5' 6 ) 03/12/2025 10:45 AM EDT Body Mass Index 25.5 03/12/2025 10:45 AM EDT documented in this encounter Functional Status * AUDIT-C Score Answer Date of Assessment Author -1 03/14/2025 11:22 AM EDT Martina Lundberg * Question Answer Date of Assessment Author Q1: How often do you have a drink containing alcohol? Patient declined 03/14/2025 11:22 AM EDT Nadira Lundberg Q2: How many drinks containing alcohol do you have on a typical day when you are drinking? Patient declined 03/14/2025 11:22 AM EDT Martina Lundberg Q3: How often do you have six or more drinks on one occasion? Patient declined 03/14/2025 11:22 AM EDT Martina Lundberg * Over the past 2 weeks, how often have you been bothered by any of the following problems? Question Answer Date of Assessment Author Little interest or pleasure in doing things Not at all 03/19/2025 12:18 PM EDT Carmelita Burr Feeling down, depressed, or hopeless Not at all 03/19/2025 12:18 PM EDT Carmelita Burr Patient Health Questionnaire -2 Score 0 03/19/2025 12:18 PM EDT Carmelita Burr * Calculated C-SSRS Risk Score (Lifetime/Recent) Answer Date of Assessment Author No Risk Indicated 03/13/2025 7:45 PM EDT Jemal Laughlin RN * Question Answer Date of Assessment Author 1. Wish to be (Past 1 Month) No 03/13/2025 7:45 PM EDT Jemal Fields RN 2. Non-Specific Active Suici arnaldo Thoughts (Past 1 Month) No 03/13/2025 7:45 PM EDT Ayden Fields RN 6. Suicidal Behavior (Lifetime) No 7:45 PM EDT Jemal Fields RN documented as of this encounter Medications at Time of Discharge ALPRAZolam (Xanax) 0.5 MG tablet Take 1 tablet by mouth 2 times a day. aspirin 81 MG EC tablet Take 1 tablet by mouth daily. 30 tablet 11 02/27/2025 atorvastatin (Lipitor) 20 MG tablet Take 1 tablet by mouth daily. 02/25/2025 bisoprolol (Zebeta) 10 MG tablet Take 1 tablet by mouth nightly. cholecalciferol (D-5000) 5,000 Units tablet Take 1 tablet by mouth 1 time each day. clopidogrel (Plavix) 75 MG tablet Take 1 tablet by mouth daily. 30 tablet 02/27/2025 hydroCHLOROthiaz calista (HYDRODiuril) 25 MG tablet Take [...] to 3 days. 12 tablet 03/14/2025 5 documented as of this encounter Miscellaneous Notes * Hospital Course - Sarah Alas TARIK Galaviz - 03/14/2025 12:15 PM EDT Joi Marcial is a 69 y.o. female who presented to [facility] on 03/13/2025 for planned staged repair of descending thoracic abdominal aortic aneurysm. 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 Patient previously evaluated at [facility] with plans for staged repair including elephant trunk followed by endovascular repair. She presented to vascular clinic for 2nd opinion as it is closer to home with the shoulder DrKirk. CTA demonstrated maximal diameter of 6.2 cm in descending thoracic aorta. 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 Patient denied back, chest, abdominal pain or symptoms of TIA/stroke. She did report bilateral lower extremity neuropathy and hip OA. Case was discussed by Dr. Franz with multi-D complex aortic conference at which time a plan for a staged approach was agreed upon. Surgical plan included: right TCAR, coronary angiogram, open ascending aortic repair with innominate and LC CAD branching, zone 2 TEVAR TBE, and endovascular repair of TAAA with PMEG or TAMBE. After a comprehensive discussion along with risks and benefits, patient verbalized understanding and wished to proceed. Patient presented as planned and proceeded to the OR for the following: Procedure(s) (TCAR) 03/13/2025 (Dr. Raul Franz): Right transcarotid artery revascularization Ultrasound guided left common femoral venous access Intravascular ultrasound of common carotid and internal carotid artery The procedure was tolerated well with no intraoperative complications. The patient was successfullyextubated post-operatively without re-intubation. Hospital course was uncomplicated. On day of discharge (POD #1.), patient was evaluated by the Vascular Surgery team. Vital signs and laboratory values were stable and appropriate. Patient was voiding independently, ambulating, tolerating regulardiet, and reporting adequate pain control. She denied symptoms of TIA/stroke. Discharge instructions were given to patient regarding medications, activity/ lifting restrictions, wound care, diet, driving restrictions and when to seek emergent care. Follow up appointments for vascular clinic and appropriate imaging was scheduled . Vascular Surgery History 6.2 cm descending aortic aneurysm, without rupture Right carotid stenosis Past Medical History Hypertension Hyperlipidemia Osteoarthritis requiring steroid injections Cerebral venous sinus thrombosis Former tobacco dependence (cessation in 2018) * Progress Notes - Martina Lundberg - 03/14/2025 11:23 AM EDT Case Management Discharge Note Joi Marcial 69 y.o. female [facility]: [id number] Admission: 03/12/2025 10:26 AM Primary Problem: 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) Primary Gas Transfer Operator: Primary Caregiver: Self Assistance Available at Discharge: Availability of Care Givers (#Hours): No assistance needed Housing Circumstances-Z Codes: Housing Circumstances (select all that apply): None Applicable Discharge Facility/Level of Care Needs: Discharge Facility/Level of Care Needs: 1-Home or Self Care Patient/Family Anticipated Services at Transition: Patient/Family Anticipated Services at Transition: none DME/Equipment Needed after Discharge: Equipment Currently Used at Home: none Equipment Needed After Discharge: none Readmission Within the Last 30 Days: Readmission Within the Last 30 Days: no previous admission in last 30 days Medicare Documentation: Less than 24 hr admission Follow-up: Cedrick Franz MD [id number] [facility] [address] Discharge Transportation: Transportation Anticipated: family or friend will provide Transportation Home at Discharge: Family/Friend will Provide Follow Up Transport: Transportation Needed to Follow up Appoinments: Family/Friend will Provide Additional Comments: Patient discharging home aMrtina Lundberg SOFTWARE PROGRAM MANAGER * Discharge Summary - Bishop Sarahdeven Galaviz APRN - 03/14/2025 11:05 AM EDT Images from the original note were not included. Vascular Surgery Discharge Summary Hospitalization Admit Date/Time: 03/12/2025 10:26 AM Admitting Attending: Cedrick Franz Discharge Date: 03/14/2025 Discharge Attending Physician: Elena Vela PCP name and Address: Edwardo Sheehan MD [address] [place], [place] [id number] Referring provider name and address: No referring provider defined for this encounter. Chief Concern, Brief History of Present Illness, and Hospital Course Joi Marcial is a 69 y.o. female who presented to [facility] on 03/13/2025 for planned staged repair of descending thoracic abdominal aortic aneurysm. 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 Patient previously evaluated at [facility] with plans for staged repair including elephant trunk followed by endovascular repair. She presented to vascular clinic for 2nd opinion as it is closer to home with the shoulder . CTA demonstrated maximal diameter of 6.2 cm in descending thoracic aorta. 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 Patient denied back, chest, abdominal pain or symptoms of TIA/stroke. She did report bilateral lower extremity neuropathy and hip OA. Case was discussed by Dr. Franz with multi-D complex aortic conference at which time a plan for a staged approach was agreed upon. Surgical plan included: right TCAR, coronary angiogram, open ascending aortic repair with innominate and LC CAD branching, zone 2 TEVAR TBE, and endovascular repair of TAAA with PMEG or TAMBE. After a comprehensive discussion along with risks and benefits, patient verbalized understanding and wished to proceed. Patient presented as planned and proceeded to the OR for the following: Procedure(s) (TCAR) 03/13/2025 (Dr. Raul Franz): Right transcarotid artery revascularization Ultrasound guided left common femoral venous access Intravascular ultrasound of common carotid and internal carotid artery The procedure was tolerated well with no intraoperative complications. The patient was successfullyextubated post-operatively without re-intubation. Hospital course was uncomplicated. On day of discharge (POD #1.), patient was evaluated by the Vascular Surgery team. Vital signs and laboratory values were stable and appropriate. Patient was voiding independently, ambulating, tolerating regulardiet, and reporting adequate pain control. She denied symptoms of TIA/stroke. Discharge instructions were given to patient regarding medications, activity/ lifting restrictions, wound care, diet, driving restrictions and when to seek emergent care. Follow up appointments for vascular clinic and appropriate imaging was scheduled . Vascular Surgery History 6.2 cm descending aortic aneurysm, without rupture Right carotid stenosis Past Medical History Hypertension Hyperlipidemia Osteoarthritis requiring steroid injections Cerebral venous sinus thrombosis Former tobacco dependence (cessation in 2018) Surgeries and Procedures Procedures performed in this encounter Procedures Cardiac catheterization right TCAR; shockwave (Right) Medication List .. ALPRAZolam 0.5 MG tablet Commonly known as: Xanax Take 1 tablet by mouth 2 times a day. aspirin 81 MG EC tablet Take 1 tablet by mouth daily. atorvastatin 20 MG tablet Commonly known as: Lipitor Take 1 tablet by mouth daily. bisoprolol 10 MG tablet Commonly known as: Zebeta Take 1 tablet by mouth nightly. CENTRUM SILVER 50+WOMEN PO Take by mouth. clopidogrel 75 MG tablet Commonly known as: Plavix Take 1 tablet by mouth daily. D-5000 125 MCG (5000 UT) tablet Generic drug: cholecalciferol Take 1 tablet by mouth 1 time each day. hydroCHLOROthiazide 25 MG tablet Commonly known as: HYDRODiuril Take 2 tablets by mouth daily. lisinopril 20 MG tablet Take 1 tablet by mouth nightly. naloxone 4 mg/0.1 mL nasal spray Commonly known as: Narcan 1. Give 1 spray in nostril for no/slow breathing or cannot wake after opioid use 2. Call 911 3. Repeat in other nostril if symptoms continue oxyCODONE 5 MG immediate release tablet Commonly known as: Roxicodone Take 1 tablet by mouth every 6 hours as needed for moderate pain or severe pain for up to 3 days. PARoxetine 20 MG tablet Commonly known as: Paxil Take 1 tablet by mouth daily. Where to Get Your Medications These medications were sent to [facility] - [place], [place] - 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 Call 911 if you notice a significantly painful headache, loss of vision, or visual disturbances. -Lifting: No heavy lifting, pushing, pulling, or straining. Do not lift anything heavier than a gallon of milk (<10 lbs for at least 2 weeks). -Wound care: Wash with soap and water daily, pat to dry. [place]/sutures will be removed at postoperative follow up in Vascular Clinic. DO NOT allow any other physician or office remove your nicolas/sutures. DO NOT apply any lotions, creams, ointments, or oils to incision site. Notify Vascular Surgery nurse navigator of any cloudy, green, yellow, red, brown, odorous drainage from incisional site. Notify Vascular Surgery nurse navigator of any redness, warmth, pain, or bleeding around incision. If incision begins to bleed uncontrollably, apply pressure and call 911. -Hygiene: PLEASE SHOWER DAILY TO PREVENT SURGICAL INFECTION. No tub baths, hot tubs, saunas, pools, lakes, streams, ponds. Do not submerge incisions/ wounds in water. -No strenuous activity -Driving: Please do not drive while taking muscle relaxants or narcotics. If you experience any of the following signs/symptoms call 911: Balance (trouble walking, stumbling, falling, feel dizzy, or spinning sensation). Eyes (vision loss, blurry vision, double vision). Face (weakness/numbness on one side of the face or facial drooping). Arm (weakness or numbness in arm or leg, especially if only on one side of the body). Speech (slurred speech, trouble getting words out or speaking gibberish). You will receive a letter with your follow up appointment date/time in approximately 2 weeks if youdid not receive it at discharge. Please notify Vascular Surgery with any questions or concerns at [phone]. It is important that you get your scheduled imaging completed prior to your follow up ap pointment with your surgeon. We try our best to have your imaging and follow up appointment on the same day, it may not always be possible. Please bring your list of medications with you. Please bring your parking ticket in for validation. Outpatient Follow-Up Future Appointments Date Time Provider Department Center 03/19/2025 12:00 PM Jose C Nicholson MD [facility] 05/21/2025 9:[address] [facility] [address] [facility] 05/21/2025 10:20 AM Cedrick Franz MD [facility] Pertinent Physical Exam At Time of Discharge Physical Exam Vitals reviewed. Constitutional: General: She is not in acute distress. Appearance: She is well-groomed. She is not ill-appearing. HENT: Head: Normocephalic. Right Ear: Hearing normal. Left Ear: Hearing normal. Nose: Nose normal. Mouth/Throat: Lips: [place]. Mouth: Mucous membranes are moist. Eyes: Pupils: Pupils are equal. Cardiovascular: Rate and Rhythm: Regular rhythm. Bradycardia present. Pulses: Radial pulses are 2+ on the right side. Dorsalis pedis pulses are 2+ on the right side and 2+ on the left side. Pulmonary: Effort: Pulmonary effort is normal. Breath sounds: Normal air entry. Abdominal: Palpations: Abdomen is soft. Skin: Comments: Right supraclavicular transverse incision: open to air, without hematoma, dehiscence, or drainage; dermabond; moderate ecchymosis. Left femoral access: open to air, without hematoma or drainage. Neurological: General: No focal deficit present. Mental Status: She is alert and oriented to person, place, and time. GCS: GCS eye subscore is 4. GCS verbal subscore is 5. GCS motor subscore is 6. Sensory: Sensation is intact. Motor: Motor function is intact. Coordination: Coordination is intact. Gait: Gait is intact. Psychiatric: Behavior: Behavior is cooperative. Discharge Disposition/Condition Disposition: Home Condition: Stable (s/sx potential problems absent or manageable) I spent >30 minutes of patient care and instruction time in preparation for this discharge. Electronically Signed by: Sarah Alas APRN - 03/14/2025 - 11:18 AM Cosigned by Alfonso Vela MD at 03/21/2025 8:30 AM EDT Associated attestation - Alfonso Vela MD - 03/21/2025 8:30 AM EDT I attest to being involved in more than half the total time in patient care. * Significant Event - Silviano Hull MD - 03/14/2025 4:27 AM EDT Images from the original note were not included. [facility] Department of Surgery Division of Vascular Surgery Post Operative Check: Subjective: Procedure: R TCAR Patient currently reports she is feeling well, is hungry and would like to advance diet. SBP 80-100, mentating appropriately and asymptomatic. No current questions or concerns otherwise. Objective: Vitals: Vitals: 03/14/25 0400 Pulse: 67 Resp: 17 Temp: 36.7 ??C (98.1 ??F) SpO2: 95% Physical Exam: GEN: No apparent distress. Resting comfortably in bed. NEURO: Awake, alert and oriented x3. No focal deficits. HENT: NCAT. Trachea appears midline. CV: Appears well-perfused. Normal rate. Palpable PT, DP BL LE. RESP: Symmetric chest rise. Non-labored breathing. ABD: NT, ND MSK: Moves all extremities. No obvious deformities. SKIN: Warm and dry. Without pallor. R neck, L groin incision c/d/I. Incisions: c/d/i Labs: WBC 8.64 Hgb 9.9 (L) PLT 153 (L) HCT 30.0 (L) INR ?? PTT ?? antiXa ?? Na 136 Cl 104 BUN 16 Gluc 129 (H) K 4.1 CO2 22 Creat 0.83 Ca 8.7 (L) iCa ?? Mg 1.8 (L) Phos 2.7 pH ?? pCO2 ?? pO2 ?? SPO2 ?? FIO2 ?? HCO3 ?? BE ?? Lactate ?? AST ?? AlkPhos ?? T Prot ?? ALT ?? Bili ?? Alb ?? D.Bili ?? Assessment and Plan: Joi Marcial is a 69 y.o. female who is recovering from above procedure(s) appropriately in the current post op period. Will continue to monitor. Diet: Regular Anticoagulation/DVT ppx: SubQ heparin Pain management: [facility] Level of care: Continue Current Level of Care I have answered and addressed all issues and concerns from the patient and nursing staff. I have notified senior resident/attending salesperson books with any issues or concerns. Silviano Hull MD General Surgery PGY-1 Pager: [phone] * Care Plan - Jemal Fields RN - 03/13/2025 10:05 PM EDT Problem: Adult Inpatient Plan of Care Goal: Absence of Hospital-Acquired Illness or Injury Outcome: Ongoing, Progressing Goal: Optimal Comfort and Wellbeing Outcome: Ongoing, Progressing Goal: Readiness for Transition of Care Outcome: Ongoing, Progressing Problem: Infection Goal: Absence of Infection Signs and Symptoms Outcome: Ongoing, Progressing Problem: Fall Injury Risk Goal: Absence of Fall and Fall-Related Injury Outcome: Ongoing, Progressing Problem: Pain Acute Goal: Optimal Pain Control and Function Outcome: Ongoing, Progressing * Care Plan - Elena Patrick RN - 03/13/2025 6:45 PM EDT Problem: Adult Inpatient Plan of Care Goal: Plan of Care Review Outcome: Ongoing, Progressing Flowsheets (Taken 03/13/20251838) Progress: improving Plan of Care Reviewed With: patient Goal: Patient-Specific Goal (Individualized) Outcome: Ongoing, Progressing Flowsheets (Taken 03/13/2025 1700) Patient/Family-Specific Goals (Include Timeframe): Pt will remain free from injury during this shift Individualized Care Needs: Safety Anxieties, Fears or Concerns: None stated Goal: Absence of Hospital-Acquired Illness or Injury Outcome: Ongoing, Progressing Intervention: Identify and Manage Fall Risk Flowsheets (Taken 03/13/20251838) Safety Promotion/Fall Prevention: activity supervised assistive device/personal items within reach clutter-free environment maintained fall prevention program maintained lighting adjusted mobility aid in reach nonskid shoes/slippers when out of bed room organization consistent safety round/check completed toileting scheduled Intervention: Prevent Skin Injury Flowsheets Taken 03/13/20251838 Skin Protection: pulse oximeter probe site changed transparent dressing maintained Taken 03/13/2025 1800 Body Position: weight shifting Intervention: Prevent and Manage VTE (Venous Thromboembolism) Risk Flowsheets (Taken 03/13/2025 1700) VTE Prevention/Management: bilateral lower extremity SCDs (sequential compression devices) on Intervention: Prevent Infection Flowsheets (Taken 03/13/20251838) Infection Prevention: environmental surveillance performed equipment surfaces disinfected hand hygiene promoted personal protective equipment utilized rest/sleep promoted single patient room provided Goal: Optimal Comfort and Wellbeing Outcome: Ongoing, Progressing Intervention: Monitor Pain and Promote Comfort Flowsheets (Taken 03/13/2025 1130 by Lynette Green) Pain Management Interventions: position adjusted Intervention: Provide Person-Centered Care Flowsheets (Taken 03/13/20251838) Trust Relationship/Rapport: care explained choices provided emotional support provided empathic listening provided questions answered questions encouraged reassurance provided thoughts/feelings acknowledged Goal: Readiness for Transition of Care Outcome: Ongoing, Progressing Intervention: Mutually Develop Transition Plan Flowsheets (Taken 03/13/20251838) Patient/Family Anticipated Services at Transition: none Patient/Family Anticipates Transition to: home Problem: Infection Goal: Absence of Infection Signs and Symptoms Outcome: Ongoing, Progressing Intervention: Prevent or Manage Infection Flowsheets Taken 03/13/20251838 Infection Management: aseptic technique maintained Taken 03/13/2025 1700 Isolation Precautions: precautions maintained protective Problem: Fall Injury Risk Goal: Absence of Fall and Fall-Related Injury Outcome: Ongoing, Progressing Intervention: Identify and Manage Contributors Flowsheets (Taken 03/13/20251838) Self-Care Promotion: independence encouraged Intervention: Promote Injury-Free Environment Flowsheets (Taken 03/13/20251838) Safety Promotion/Fall Prevention: activity supervised assistive device/personal items within reach clutter-free environment maintained fall prevention program maintained lighting adjusted mobility aid in reach nonskid shoes/slippers when out of bed room organization consistent safety round/check completed toileting scheduled Problem: Pain Acute Goal: Optimal Pain Control and Function Outcome: Ongoing, Progressing Intervention: Optimize Psychosocial Wellbeing Flowsheets (Taken 03/13/20251838) Supportive Measures: active listening utilized decision-making supported goal-setting facilitated mindfulness techniques promoted self-reflection promoted Diversional Activities: movies smartphone television Intervention: Develop Pain Management Plan Flowsheets (Taken 03/13/2025 1130 by Lynette Green) Pain Management Interventions: position adjusted Intervention: Prevent or Manage Pain Flowsheets (Taken 03/13/20251838) Bowel Elimination Promotion: adequate fluid intake promoted ambulation promoted Sleep/Rest Enhancement: awakenings minimized consistent schedule promoted family presence promoted natural light exposure provided noise level reduced regular sleep/rest pattern promoted * Perioperative Nursing Note - Lynette Green - 03/13/2025 4:30 PM EDT Patient transported on monitor by RN to ICU. * Progress Notes - Martina Lundberg - 03/13/2025 1:20 PM EDT Case Management Adult Progress Note Joi Marcial 69 y.o. female CSN: [id number] Admission: 03/12/2025 10:26 AM Primary Problem: 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) SW unable to complete initial assessment due to patient in OR, SW will continue to follow. Martina Lundberg SOFTWARE PROGRAM MANAGER * Anesthesia PACU Signout - Abel Acevedo MD - 03/13/2025 10:38 AM EDT Patient: Joi Marcial Anesthesia Type: general Vitals Value Taken Time BP 121/53 03/13/25 10:30 Temp 36.5 ??C (97.7 ??F) 03/13/25 09:42 Pulse 59 03/13/25 10:37 Resp 17 03/13/25 10:37 SpO2 99 % 03/13/25 10:37 Vitals shown include unfiled device data. Anesthesia PACU Signout Patient location during evaluation: PACU Patient participation: complete - patient participated Level of consciousness: baseline and awake Pain management: adequate (pain score 0-3) Airway patency: natural airway Hydration status: acceptable PONV: none Cardiovascular status: acceptable and hemodynamically stable Respiratory status: acceptable, spontaneous ventilation, unassisted, nonlabored ventilation and room air Discharge Disposition: admit to inpatient unit Cosigned by Pita Ruffin MD at 03/13/2025 2:18 PM EDT Associated attestation - Pita Ruffin MD - 03/13/2025 2:18 PM EDT Agree with above assessment and evaluation from resident/ACCOUNTS PAYABLE OR RECEIVABLE CLERK. * Op Note - Cedrick Franz MD - 03/13/2025 8:28 AM EDT Operative Note Date: 03/13/25 Location: [facility] Name: Joi Marcial, : 1955, Diagnoses: Pre-op Diagnosis Asymptomatic stenosis of right carotid artery Post-op Diagnosis Asymptomatic stenosis of right carotid artery Procedure(s): Right transcarotid artery revascularization Ultrasound guided left common femoral venous access Intravascular ultrasound of common carotid and internal carotid artery Attending Surgeon(s): * Cedrick Franz - Primary Furnace Stock Inspector(s): * Phyllis Jules MD - Resident - Assisting Anesthesia: General ASA: III Blood Administration: Blood Product Administration History None Estimated Blood Loss: Minimal Drains: Urethral Catheter Non-latex;Single lumen;Temperature probe 16 Fr. (Active) Implants Type Name Action Serial No. STENT TRANSCAROTID ENROUTE TAPERED 8-6X40 - [id number] Implanted Specimen: none Findings: successful shockwave balloon angioplasty and stent placement across carotid artery lesionwith excellent final angiogram. Minor oozing at neck incision, hemostatic with surgiflo. Patient moving all extremities prior to leaving OR. High surgical risk criteria: high lesion, retropharyngeal Calcium percentage: 45% Aortic arch type: II Contrast volume (mL): 30ml Fluoroscopy (min): 5.1 min Dose area (Gy/cm2): 43.25 Procedural time (min): 47 min Flow reversal time (min): 9 min Balloon: Shockwave 4x12, Salas 6x20 Stent: ENROUTE 8-6x40, lot# [id number] Indication: Joi Marcial is a 69 y.o. female who presents today for right Transcarotid Artery Revascularization (TCAR) for right carotid stenosis. Patient had CTA imaging that revealed 70-80 percent stenosis. Natural history of carotid stenosis was discussed with patient. Options of medical management, endovascular, and open procedures were discussed, and patient decided to undergo TCAR after weighing the complications rates, durability, and post procedural recovery issues. Specific risks of the procedure discussed with the patient included but were not limited to 1-4% ischemic or hemorrhagic stroke risk,5-10% nerve injury, hematoma, and post operative hemodynamic instability. Risks inherent in undergoi ng a major vascular operation discussed included but were not limited to: myocardial infarction, acute kidney injury, prolonged ventilation, prolonged ICU length of stray, tracheostomy, pneumonia, and the risk of . patient understood these issues and agreed to under the procedure. Procedure: The patient was brought to the operating room placed in supine position. General anesthesia was obtained via endotracheal intubation. After adequate anesthesia, the patient was prepped and draped in the standard sterile fashion. Before incision, a surgical time out confirming patient, location, laterality, and operation was performed. Transverse incision was made with a 15 blade, above the right collarbone between the heads of the sternocleidomastoid muscle. Bovie electric cautery was used to divide subcutaneous tissue and the platysma muscle. Dissection was further carried out between the heads of the sternocleidomastoid muscle. Internal jugular vein was mobilized laterally and the common carotid artery was controlled using a Dee vessel loop. Patient was then systemically heparinized to an ACT greater than 250. 6- 0 Prolene U-stitch was placed in the anterior surface of the common carotid artery. Using ultrasound guidance micropuncture needle was used to access the left common femoral vein and using Seldinger technique this was upsized to the 8- Sudanese venous sheath. Micropuncture needle was used to access the center of the U-stitch followed by advancement of a micro wire. The micro needle was then exchanged for a 4 Sudanese catheter and angiogram was performed to reveal the anatomy of the common carotid internal carotid external carotid artery. The stiff sheath introducer wire was then advanced just proximal to the carotid bifurcation and the 4 Sudanese sheath was exchanged for the 8 Sudanese arterial sheath. The sheath was sutured in place and the dilator and wire were withdrawn. Two-view angiogram was performed to confirm correct placement of the sheath and that there was no dissection present. After confirming ACT greater than 250, systolic blood pressureover 140, and heart rate over 70, flow reversal was established the with the EnRoute [employer] system. The common carotid artery was clamped by cinching down the Dee tied vessel loops. Flow reversal was confirmed. The ICA lesion was crossed with an 014 wire. Balloon shockwave lithotripsy of the ICA wasperformed with a 4x12 monorail Shockwave balloon. Balloon angioplasty of the ICA was repeated with 6 x20 monorail Salas balloon. The balloon was exchanged for the EnRoute stent delivery system and a 8-[address] route stent was placed. After 2 minutes, intravascular ultrasound was performed of common carotid artery and internal carotid artery confirming appropriate stent placement without complication. Intravascular ultrasound catheter was advanced over the 0.14 wire to evaluate the stent which had no residual stenosis seen. Next, a two view completion angiogram revealed widely patent stent with no filling defects. The carotid was unclamped after the wire had been removed under fluoroscopic imaging. The neuro protection system ran for 1 more minute and was disengaged. The arterial sheath was removed and the prior placed U-stitch was tied and secured to good hemostasis. Protamine was administered and the venous sheath was removed. The neck incision was copiously irrigated and soft tissue bleeding was controlled with Bovie electric cautery and closed in layers of 3-0 Vicryl followed by 4-0 Monocryl and Dermabond. Dressing was applied to the neck and manual pressure was held in the groin for 15 minutes. Patient was awakened, alert and oriented, and moving all 4 extremities. Patient was transferred to the recovery room in stable condition. This case as part of the SVS VQI TCAR surveillance project-National clinical trial, NCT: [id number] There were NO signs of surgical site infection (SSI) present at the time of surgery (PATOS). Complications: None; patient tolerated the procedure well. Submitted by: Phyllis Jules MD - 03/13/2025 * H&P - Silviano Hull MD - 03/13/2025 12:05 AM EDT Images from the original note were not included. [facility] Department of Surgery Division of Vascular Surgery History & Physical Note Subjective History of Present Illness: Joi Marcial is a 69 y.o. female with PMHx significant for HLD, HTN, OA, cerebral venous sinous thrombosis, former smoker (quit 2017) R carotid stenosis, and 6.2 cm descending aortic aneurysm who presented to the [facility] on 03/12/2025 for planned coronary angiography (per cardiology) prior to undergoing scheduled elective R TCAR w/ Dr. Franz tomorrow. Subsequently plan for staged repair of her descending TAA. She will subsequently undergo open ascending aortic repair with innominate and LCCA debranching, zone TEVAR TBE, and endovascular repair of her TAAA w/ PMEG or TAMBE pending successful procedure tomorrow. Her eliquis has been held since 03/12. Currently on plavis/asa 81. Reports no changes to health since clinic visit earlier this month. Review of Systems: Relevant review of systems was obtained as able and is negative unless stated above in HPI. History Obtained From: Patient Past Medical History: Past Medical History[1] Allergies And Reactions: Allergies[2] Past Surgical History: Surgical History[3] Family Medical History: Family History[4] Reviewed and Non-contributory Social History: Social History Socioeconomic History Marital status: Spouse name: Not on file Number of children: Not on file Years of education: Not on file Highest education level: Not on file Occupational History Not on file Tobacco Use Smoking status: Former Types: Cigarettes Passive exposure: Past Smokeless tobacco: Not on file Tobacco comments: Quit smoking 2018 smoked 1ppd for 40 years Vaping Use Vaping status: Never Used Substance and Sexual Activity Alcohol use: Not Currently Drug use: Yes Types: Marijuana Sexual activity: Defer Other Topics Concern Not on file Social History Narrative Not on file Social Drivers of Health Financial Resource Strain: Not on file Food Insecurity: Not on file Transportation Needs: Not on file Physical Activity: Not on file Stress: Not on file Social Connections: Not on file Intimate Partner Violence: Not on file Housing Stability: Not on file Immunizations: Immunization History Administered Date(s) Administered Influenza Vaccine, Quadrivalent, Adjuvanted 07/25/2021 Influenza, High-dose, Split Virus, Trivalent, Injectable, preservative free 07/26/2019, 08/07/2024 Influenza, high-dose, quadrivalent 05/28/2020, 07/22/2022 Influenza, seasonal, injectable, preservative free 06/19/2014, 06/23/2015, 07/20/2016 Lemuel COVID-19 Vaccine (Blue Cap) 18+ 12/19/2020 Moderna COVID-19 Vaccine (Marine Firer) 12+ years 10/08/2021 Pneumococcal Conjugate PCV 13 09/19/2019 Pneumococcal Polysaccharide PPV23 07/03/2023 Zoster, Recombinant 09/19/2019 I have updated and confirmed the past medical, surgical, family and social history. Home Medications: Prior to Admission medications Medication Sig Start Date End Date Taking? Authorizing Provider ALPRAZolam (Xanax) 0.5 MG tablet Take 1 tablet by mouth 2 times a day. Yes Provider, Historical, aspirin 81 MG EC tablet Take 1 tablet by mouth daily. 02/27/25 02/27/26 Yes Cedrick Franz MD atorvastatin (Lipitor) 20 MG tablet Take 1 tablet by mouth daily. 02/25/25 Yes Kalia Aburto MD bisoprolol (Zebeta) 10 MG tablet Take 1 tablet by mouth nightly. Yes Kalia Aburto MD cholecalciferol (D-5000) 5,000 Units tablet Take 1 tablet by mouth 1 time each day. Yes Kalia Aburto MD clopidogrel (Plavix) 75 MG tablet Take 1 tablet by mouth daily. 02/27/25 02/27/26 Yes Cedrick Franz MD lisinopril 20 MG tablet Take 1 tablet by mouth nightly. Yes Kalia Aburto MD lisinopril-hydroCHLOROthiazide 20-25 MG tablet Take 1 tablet by mouth daily. 12/30/24 Yes Kalia Aburto MD Multiple Vitamins-Minerals (CENTRUM SILVER 50+WOMEN PO) Take by mouth. Yes Kalia Aburto MD PARoxetine (Paxil) 20 MG tablet Take 1 tablet by mouth daily. Yes Kalia Aburto MD apixaban (Eliquis) 5 MG tablet Take 1 tablet (5 mg total) by mouth 2 (two) times a day. 01/09/23 03/04/25 Kathryn Dominguez MD atorvastatin (Lipitor) 40 MG tablet Take 1 tablet (40 mg total) by mouth every night. Patient not taking: Reported on 02/26/2025 01/09/23 02/26/25 Kathryn Dominguez MD VITAMIN D, ERGOCALCIFEROL, PO Take by mouth. Patient not taking: No sig reported Kalia Aburto MD Anti-Thrombotic Medications: Is this patient taking warfarin, new oral anti-coagulant, or anti-platelet medication? Yes If Yes, What Medication: Clopidogrel (Plavix) Current Hospital Medications: Current Medications[5] Objective Objective: Visit Vitals BP (!) 169/88 Pulse 71 Temp 36.5 ??C (97.7 ??F) Ht 1.676 m (5' 6 ) Wt 71.8 kg (158 lb 4.6 oz) SpO2 96% BMI 25.55 kg/m?? @ Physical Exam: Physical Exam Vitals and nursing note reviewed. Constitutional: Appearance: Normal appearance. HENT: Head: Normocephalic and atraumatic. Right Ear: External ear normal. Left Ear: External ear normal. Eyes: Extraocular Movements: Extraocular movements intact. Conjunctiva/sclera: Conjunctivae normal. Cardiovascular: Rate and Rhythm: Normal rate. Pulmonary: Effort: Pulmonary effort is normal. No respiratory distress. Abdominal: General: Abdomen is flat. Palpations: Abdomen is soft. Tenderness: There is no abdominal tenderness. Musculoskeletal: General: Normal range of motion. Skin: General: Skin is warm and dry. Neurological: General: No focal deficit present. Mental Status: She is alert. Laboratory: CBC WBC 6.87 Hb 11.7 Plt 208 Hct 36.8 ANC ?? INR ??, PTT ??, Anti-Xa ?? MCV 89 BMP Na 138 Cl 101 BUN 22 Glu 80 K 4.0 Co2 25 Cr 0.89 Ca 9.5 iCa ?? Mg ??, Phos ?? Lactate ?? LFT AST ?? AlkPhos ?? T Prot ?? ALK ?? Bili ?? Alb ?? D.Bili ?? Imaging: Radiographic Interpretation: I have reviewed the imaging above and agree with the radiologist interpretation. Assessment/Plan Assessment & Plan: Joi Marcial is a 69 y.o. female with PMHx significant for HLD, HTN, OA, cerebral venous sinous thrombosis, former smoker (quit 2017) R carotid stenosis, and 6.2 cm descending aortic aneurysm present for R TCAR as part of a planned staged repair of her aforementioned thoracic aortic aneurysm. - to OR 03/13 for R TCAR w/ Dr. 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 Franz, Attending Physician Silviano Hull MD General Surgery PGY-1 Pager: [phone] [1] Past Medical History: Diagnosis Date Aneurysm (CMS/HCC) 2024 Hyperlipidemia Hypertension 1989 Obesity [2] No Known Allergies [3] Past Surgical History: Procedure Laterality Date BACK SURGERY CHOLECYSTECTOMY 1971 FOOT SURGERY HYSTERECTOMY TOTAL HIP ARTHROPLASTY Left [4] Family History Problem Relation Name Age of Onset Hypertension Mother Heart disease Father Diabetes type II Sister Cancer Brother Diabetes type II Brother Sudden Brother Anesthesia problems Neg Hx Malig Hyperthermia Neg Hx [5] Current Facility-Administered Medications Medication Dose Route Frequency Provider Last Rate Last Admin acetaminophen (Tylenol) tablet 650 mg 650 mg Oral q6h PRN Cira Quiñones MD 650 mg at 03/12/252118 ALPRAZolam (Xanax) tablet 0.5 mg 0.5 mg Oral Nightly PRN Cira Quiñones MD 0.5 mg at aspirin chewable tablet 81 mg 81 mg Oral Daily Silviano Hull MD bisoprolol (Zebeta) tablet 10 mg 10 mg Oral Daily Cira Quiñones MD 10 mg at 03/12/252235 clopidogrel (Plavix) tablet 75 mg 75 mg Oral Daily Silviano Hull MD lisinopril tablet 20 mg 20 mg Oral Daily Cira Quiñones MD 20 mg at 03/12/252118 PARoxetine (Paxil) tablet 20 mg 20 mg Oral Nightly Cira Quiñones MD 20 mg at 03/12/252118 sodium chloride 0.9 % flush 10 mL 10 mL Intravenous q12h Afshan Lazar MD And sodium chloride 0.9 % flush 10 mL 10 mL Intravenous PRN Afshan Lazar MD Cosigned by Cedrick Franz MD at 03/13/2025 4:55 PM EDT * Care Plan - Cate Valderrama RN - 03/12/2025 7:12 PM EDT Problem: Adult Inpatient Plan of Care Goal: Plan of Care Review Outcome: Ongoing, Progressing Problem: Adult Inpatient Plan of Care Goal: Plan of Care Review 03/12/20251911 by Cate Valderrama RN Outcome: Ongoing, Progressing Flowsheets (Taken 03/12/20251911) Progress: improving Outcome Evaluation: for aneurysm repair in AM Plan of Care Reviewed With: patient 03/12/20251911 by Cate Valderrama RN Outcome: Ongoing, Progressing * Care Plan - Jannette Richardson - 03/12/2025 4:11 PM EDT Problem: Adult Inpatient Plan of Care Goal: Plan of Care Review Outcome: Ongoing, Progressing Flowsheets (Taken 03/12/2025 1611) Progress: no change Plan of Care Reviewed With: patient family Goal: Patient-Specific Goal (Individualized) Outcome: Ongoing, Progressing Goal: Absence of Hospital-Acquired Illness or Injury Outcome: Ongoing, Progressing Goal: Optimal Comfort and Wellbeing Outcome: Ongoing, Progressing Goal: Readiness for Transition of Care Outcome: Ongoing, Progressing * Nursing Note - Paresh Khan RN - 03/12/2025 2:05 PM EDT Report called to Irene HUNG Site and situation reviewed with transport. Vitals WDL for pt at time of transport to 2TU. Pt transported with family and belongings. * Pre-Sedation Procedural Documentation - Cortes Segura DO - 03/12/2025 11:56 AM EDT Images from the original note were not included. 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 Planned Procedure: CORS Relevant past medical history: carotid stenosis, cerebral venous sinus thrombosis and ascending anddescending aortic aneurysm with max diameter 6.2 cm in descending. Previous problems with sedation or surgery: No Previous family history or problems with sedation or surgery: No Relevant review of systems: NA Relevant Labs: Lab Results Component Value Date CREATININE 0.89 03/12/2025 EGFR 54 03/12/2025 INR 1.0 01/07/2023 Planned Sedation/Anesthesia: Moderate Airway assessment: normal Mallampati Score: II (hard and soft palate, upper portion of tonsils anduvula visible) ASA: ASA 2 - Patient with mild systemic disease with no functional limitations Directed physical examination: Vitals: 03/12/25 1045 BP: (!) 143/51 Pulse: 70 Resp: 13 Temp: 36.6 ??C (97.8 ??F) SpO2: 98% GENERAL: Awake, alert, NAD HEENT: NCAT NECK: No appreciable JVD CARDIAC: Regular rate, regular rhythm, normal S1/S2, no m/r/g, 2+ radial pulses bilaterally PULM: CTAB without increased work of breathing ABD: Soft, NT, ND EXT: Warm and well perfused, no LE edema SKIN: No rashes or lesions NEURO: A&Ox4, moving all extremities spontaneously Benefits, risks and alternatives of procedure and planned sedation have been discussed with the patient and/or their account executive sales representative. All questions answered and they agree to proceed. Cortes Segura DO, MS Fellow, Department of Cardiovascular Medicine Cosigned by Dion Moeller MD at 03/13/2025 8:18 AM EDT Associated attestation - Dion Moeller MD - 03/13/2025 8:18 AM EDT Agree with above * H&P - Cortes Segura DO - 03/12/2025 11:54 AM EDT Images from the original note were not included. CARDIOLOGY HISTORY & PHYSICAL SUBJECTIVE History Of Present Illness Joi Marcial is a 69 y.o. female with a past medical history as listed below who presents today for planned coronary angiography for indication: pre-op prior to aorta repair. 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 Patient was last seen in clinic on 02/26/2025. Since that time there have been no significant interval events. They deny any recent chest pain, shortness of breath, orthopnea, leg swelling, progressive fatigue, syncope. No contrast allergy. Home anticoagulation/antiplatelet: ASA 81, plavix 75, eliquis 5 Review of Systems 14 point ROS reviewed and is otherwise negative except that which is mentioned in the HPI. Past Medical History Past Medical History[1] Surgical History Surgical History[2] Family History Family History[3] Social History Social History Socioeconomic History Marital status: Spouse name: Not on file Number of children: Not on file Years of education: Not on file Highest education level: Not on file Occupational History Not on file Tobacco Use Smoking status: Former Types: Cigarettes Passive exposure: Past Smokeless tobacco: Not on file Tobacco comments: Quit smoking 2018 smoked 1ppd for 40 years Vaping Use Vaping status: Never Used Substance and Sexual Activity Alcohol use: Not Currently Drug use: Yes Types: Marijuana Sexual activity: Defer Other Topics Concern Not on file Social History Narrative Not on file Social Drivers of Health Financial Resource Strain: Not on file Food Insecurity: Not on file Transportation Needs: Not on file Physical Activity: Not on file Stress: Not on file Social Connections: Not on file Intimate Partner Violence: Not on file Housing Stability: Not on file Allergies Patient has no known allergies. Home Medications Current Outpatient Medications Medication Instructions ALPRAZolam (XANAX) 0.5 mg, 2 times daily apixaban (ELIQUIS) 5 mg, Oral, 2 times daily aspirin 81 mg, Oral, Daily atorvastatin (LIPITOR) 40 mg, Oral, Nightly atorvastatin (LIPITOR) 20 mg, Daily bisoprolol (ZEBETA) 10 mg, Nightly clopidogrel (PLAVIX) 75 mg, Oral, Daily D-5000 5,000 Units, ZZ Daily RT lisinopril-hydroCHLOROthiazide 20-25 MG tablet 1 tablet, Daily lisinopril 20 mg, Nightly Multiple Vitamins-Minerals (CENTRUM SILVER 50+WOMEN PO) Take by mouth. PARoxetine (PAXIL) 20 mg, Daily VITAMIN D, ERGOCALCIFEROL, PO Take by mouth. OBJECTIVE Physical Exam Blood pressure (!) 143/51, pulse 70, temperature 36.6 ??C (97.8 ??F), temperature source Oral, resp. rate 13, height 1.676 m (5' 6 ), weight 71.8 kg (158 lb 4.6 oz), SpO2 98%. GENERAL: Awake, alert, NAD HEENT: NCAT NECK: No appreciable JVD CARDIAC: Regular rate, regular rhythm, normal S1/S2, no m/r/g, 2+ radial pulses bilaterally PULM: CTAB without increased work of breathing ABD: Soft, NT, ND EXT: Warm and well perfused, no LE edema SKIN: No rashes or lesions NEURO: A&Ox4, moving all extremities spontaneously PSYCH: Normal mood and affect ASSESSMENT/PLAN Joi Marcial is a 69 y.o. female who presents today for planned coronary angiography for indication:pre-op prior to aorta repair. -- Proceed with planned procedure. Consent obtained at bedside. Pre-sedation documentation completed. -- Access plan: right radial with fem backup -- Relevant labs: CBC BMP -- Anticoagulation/antiplatelet plan: ASA 81, plavix 75 (patient took both this AM), holding eliquis since Monday Cortes Segura DO, MS Fellow, Department of Cardiovascular Medicine [1] Past Medical History: Diagnosis Date Aneurysm (CMS/HCC) 2024 Hyperlipidemia Hypertension 1989 Obesity [2] Past Surgical History: Procedure Laterality Date BACK SURGERY CHOLECYSTECTOMY 1971 FOOT SURGERY HYSTERECTOMY TOTAL HIP ARTHROPLASTY Left [3] Family History Problem Relation Name Age of Onset Hypertension Mother Heart disease Father Diabetes type II Sister Cancer Brother Diabetes type II Brother Sudden Brother Anesthesia problems Neg Hx Malig Hyperthermia Neg Hx Cosigned by Dion Moeller MD at 03/13/2025 8:19 AM EDT Associated attestation - Dion Moeller MD - 03/13/2025 8:19 AM EDT I saw and evaluated the patient with the resident/fellow. I discussed the case with the resident/fellow and agree with the findings and plan as documented. documented in this encounter Plan of Treatment Upcoming Encounters Date Type Department Care Team (Late st Contact Info) Description 05/14/2025 12:30 PM EDT Office Visit [facility] Cardiothoracic [address], [address] [place] [id number] Jose C Nicholson MD [address] [place] [address] 05/21/2025 9:00 AM EDT Appointment [facility] Vascular Lab [address] [place] [address] 05/21/2025 10:20 AM EDT Office Visit [facility] [address] [facility] [address] Floor [address] [place] [address] Cedrick Franz MD [address] [place] [address] Scheduled Orders Name Type Priority Associated Diagnoses Orde r Schedule VAS US Carotid Duplex Bilateral Vascular Ultrasound Routine 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) Asymptomatic stenosis of right carotid artery 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) Expected: 04/13/2025 (Approximate), Expires: 09/15/2026 Scheduled Referrals Name Type Priority Associated Diagnoses Order Schedule Discharge Ambulatory referral to Vascular Surgery Outpatient Referral Routine 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) Asymptomatic stenosis of right carotid artery 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) Expected: 04/13/2025 (Approximate), Expires: 09/15/2026 documented as of this encounter Procedures Procedure Name Priority Date/Time Associated Diagnosis Comments CBC W/O DIFFERENTIAL Pending Discharge 03/14/2025 12:24 AM EDT PHOSPHORUS, PLASMA Pending Discharge 03/14/2025 12:24 AM EDT MAGNESIUM, PLASMA Pending Discharge 03/14/2025 12:24 AM EDT BASIC METABOLIC PANEL, PLASMA Pending Discharge 03/14/2025 12:24 AM EDT HEMOGLOBIN AND HEMATOCRIT, BLOOD Routine 03/13/2025 10:41 PM EDT SHAILA AURIS SURVEILLANCE BY PCR Pending Discharge 03/13/2025 6:09 PM EDT MULTI DRUG RESISTANCE TEST Pending Discharge 03/13/2025 6:09 PM EDT FL LESS THAN 1 HOUR (NON-REPORTABLE) Routine 03/13/2025 2:53 PM EDT OXYGEN THERAPY Routine 03/13/2025 9:51 AM EDT OXYGEN THERAPY Routine 03/13/2025 9:51 AM EDT POCT ACT UNSOLICITED RESULTS Routine 03/13/2025 8:39 AM EDT TYPE AND SCREEN Pending Discharge 03/13/2025 8:18 AM EDT BLOOD GAS PANEL, ARTERIAL Pending Discharge 03/13/2025 8:[address] TCAT IV STENT CRV CRTD ART EMBOLIC PROTECJ 03/13/2025 7:15 AM EDT Asymptomatic stenosis of right carotid artery CBC W/O DIFFERENTIAL Routine 03/13/2025 12:19 AM EDT BASIC METABOLIC PANEL, PLASMA Routine 03/13/2025 12:19 AM EDT CORONARY ANGIOGRAPHY Routine 03/12/2025 1:34 PM EDT 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) Asymptomatic stenosis of right carotid artery LEFT HEART CATHETERIZATION Routine 03/12/2025 1:34 PM EDT 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) Asymptomatic stenosis of right carotid artery POCT CREATININE ISTAT UNSOLICITED RESULTS Routine 03/12/2025 11:04 AM EDT CBC W/O DIFFERENTIAL STAT 03/12/2025 10:55 AM EDT BASIC METABOLIC PANEL, PLASMA STAT 03/12/2025 10:55 AM EDT documented in this encounter Results * Phosphorus (03/14/2025 12:24 AM EDT) Phosphorus, Plasma 2.7 2.5 - 4.5 mg/dL 03/14/2025 1:04 AM EDT [facility] Blood Venous blood specimen / Unknown Venipuncture / Unknown 03/14/2025 12:24 AM EDT 03/14/2025 12:38 AM EDT us Cedrick Franz MD LAB BLOOD ORDERABLES Final Res ult Performing Organization Address [facility]/ZIP Co de Phone Number [facility] [address] [place] [address] * (ABNORMAL) Magnesium (03/14/2025 12:24 AM EDT) Magnesium, Plasma 1.8(L) 1.9 - 2.4 mg/dL 03/14/2025 1:04 AM EDT [facility] Blood Venous blood specimen / Unknown Venipuncture / Unknown 03/14/2025 12:24 AM EDT 03/14/2025 12:38 AM EDT Cedrick Franz MD LAB BLOOD ORDERABLES Final Res ult [facility] [address] [place] [address] * (ABNORMAL) Basic metabolic panel (03/14/2025 12:24 AM EDT) Glucose, Plasma 129(H) 74 - 99 mg/dL 03/14/2025 1:04 AM EDT [facility] BUN, Plasma 16 8 - 23 mg/dL 03/14/2025 1:04 AM EDT [facility] Creatinine, Plasma 0.83 0.60 - 1.10 mg/dL 03/14/2025 1:04 AM EDT [facility] BUN/Creatinine Ratio 19 03/14/2025 1:04 AM EDT [facility] Sodium, Plasma 136 136 - 145 mmol/L 03/14/2025 1:04 AM EDT [facility] Potassium, Plasma 4.1 3.6 - 4.9 mmol/L 03/14/2025 1:04 AM EDT [facility] Chloride, Plasma 104 97 - 107 mmol/L 03/14/2025 1:04 AM EDT [facility] CO2, Plasma 22 22 - 29 mmol/L 03/14/2025 1:04 AM EDT [facility] Anion Gap 10 6 - 16 mmol/L 03/14/2025 1:04 AM EDT [facility] Total Calcium, Plasma 8.7(L) 8.9 - 10.2 mg/dL 03/14/2025 1:04 AM EDT [facility] eGFRcr 75.9 mL/min/1.7 3m*2 03/14/2025 1:04 AM EDT [facility] Comment:Reported eGFRcr in m L/min/1.73m2 is based the CKD-EPI 2020 equation that does not use a race coefficient. Blood Venous blood specimen / Unknown Venipuncture / Unknown 03/14/2025 12:24 AM EDT 03/14/2025 12:38 AM EDT us Cedrick Franz MD LAB BLOOD ORDERABLES Final Res ult [facility] [address] [place] [address] * (ABNORMAL) CBC (03/14/2025 12:24 AM EDT) WBC Count 8.64 3.70 - 10.30 10*3/uL LAB HEMATOLOGY METHOD 03/14/2025 1:05 AM EDT [facility] RBC Count 3.43(L) 3.90 - 5.20 10*6/uL LAB HEMATOLOGY METHOD 03/14/2025 1:05 AM EDT [facility] HGB 9.9(L) 11.2 - 15.7 g/dL LAB HEMATOLOGY METHOD 03/14/2025 1:05 AM EDT [facility] HCT 30.0(L) 34.0 - 45.0 % LAB HEMATOLOGY METHOD 03/14/2025 1:05 AM EDT [facility] Platelet Count 153(L) 155 - 369 10*3/uL LAB HEMATOLOGY METHOD 03/14/2025 1:05 AM EDT [facility] MCV 88 79 - 98 fL LAB HEMATOLOGY METHOD 03/14/2025 1:05 AM EDT [facility] MCH 28.9 26.0 - 32.0 pg LAB HEMATOLOGY METHOD 03/14/2025 1:05 AM EDT [facility] MCHC 33.0 30.7 - 35.5 g/dL LAB HEMATOLOGY METHOD 03/14/2025 1:05 AM EDT [facility] RDW 14.5 11.5 - 14.5 % LAB HEMATOLOGY METHOD 03/14/2025 1:05 AM EDT [facility] MPV 12.3 8.8 - 12.5 fL LAB HEMATOLOGY METHOD 03/14/2025 1:05 AM EDT [facility] nRBC 0.0 <=0.0 per 100 WBCs LAB HEMATOLOGY METHOD 03/14/2025 1:05 AM EDT [facility] Blood Venous blood specimen / Unknown Venipuncture / Unknown 03/14/2025 12:24 AM EDT 03/14/2025 12:41 AM EDT us Cedrick Franz MD LAB BLOOD ORDERABLES Final Res ult [facility] [address] [place] [address] * (ABNORMAL) Hemoglobin and hematocrit, blood (03/13/2025 10:41 PM EDT) HGB 9.8(L) 11.2 - 15.7 g/dL LAB HEMATOLOGY METHOD 03/13/2025 10:57 PM EDT [facility] HCT 29.8(L) 34.0 - 45.0 % LAB HEMATOLOGY METHOD 03/13/2025 10:57 PM EDT [facility] Blood Arterial blood specimen / Unknown Venipuncture / Unknown 03/13/2025 10:41 PM EDT 03/13/2025 10:50 PM EDT Result [facility] Cedrick Franz MD LAB BLOOD ORDERABLES Final Res ult Performing Organization Address [facility] [place] [address] * Shaila auris Surveillance by PCR (03/13/2025 6:09 PM EDT) Shaila auris PCR Result Not Detected Not Detected 03/14/2025 1:29 PM EDT [facility] Swab (Axilla and Groin) Non-blood Collection / Unknown 03/13/2025 6:09 PM EDT 03/13/2025 6:17 PM EDT Narrative [facility] - 03/14/2025 1:29 PM EDT This PCR assay was developed and its performance characteristics determined by [facility] as appropriate for clinical purposes. This assay has not been cleared or approved by the FDA, but is performed in a CLIA regulated laboratory that is qualified to perform high-complexity testing. Cedrick Franz MD LAB MICROBIOLOGY - GENERAL ORD ERABLES Final Result Performing Organization Address [facility] [place] [address] * Multi Drug Resistance Test (03/13/2025 6:09 PM EDT) Culture No growth at day 1 03/14/2025 8:22 PM EDT [facility] Swab (Nares and Frances Rectal) Non-blood Collection / Unknown 03/13/2025 6:09 PM EDT 03/13/2025 6:17 PM EDT Narrative [facility] - 03/14/2025 8:22 PM EDT This test was developed and its performance characteristics determined by the [facility]. Although the media is FDA-approved, it is not FDA-approved for all specimen types submitted. The FDA has determined that such clearance or approval is not necessary. This test is used for surveillance purposes. It should not be regarded as investigational or for research. The [facility] is certified under the Clinical Laboratory Improvement Amendments of 1988 (CLIA-88) as qualified to perform high complexity clinical laboratory testing. us Cedrick Franz MD LAB MICROBIOLOGY - GENERAL ORD ERABLES Final Result Performing Organization Address City/[facility]/ZIP Co de Phone Number [facility] [address] [place] [address] * FL Less than 1 Hour Intraoperative (03/13/2025 2:53 PM EDT) Narrative [facility] - 03/13/2025 2:54 PM EDT Images were obtained for surgical purposes. See Cedrick Franz's surgical note in the patient's chart for the findings. us Cedrick Franz MD IMG FLUOROSCOPY PROCEDURES Fin al Result Performing Organization Address [facility] de Phone Number IMAGING * POCT ACT (03/13/2025 8:39 AM EDT) ACT+ (HIGH RANGE) 266 68 - 600 Seconds 03/13/2025 12:23 PM EDT [facility] Interactive Video Technician ID Arturo Chandra 03/13/2025 12:23 PM EDT [facility] ACT Device ID [id number] 03/13/2025 12:23 PM EDT [facility] Comment 03/13/2025 12:23 PM EDT [facility] Comment: ACT performed by staff at point of care. Results are reported immediately to the physician or primary caregiver. The activated clotting time is performed on patients with diverse clinical characteristics and treatment histories. Therefore, expected values are variable and results must be interpreted in the context of each individual patient. Blood Venous blood specimen / Unknown 03/13/2025 8:39 AM EDT 03/13/2025 12:23 PM EDT us Cedrick Franz MD LAB POINT OF CARE TE ST DOCKED DEVICE UNSOLICITED RESULTS Final Result Performing Organization Address [facility] Co de Phone Number [facility] [address] [facility] [address] [place] [address] * (ABNORMAL) Blood gas panel, arterial (03/13/2025 8:18 AM EDT) pH, Arterial 7.45(H) 7.31 - 7.42 LAB HEMATOLOGY METHOD 03/13/2025 8:46 AM EDT [facility] pCO2, Arterial 35 35 - 48 mmHg LAB HEMATOLOGY METHOD 03/13/2025 8:46 AM EDT [facility] pO2, Arterial 272 >70 mmHg LAB HEMATOLOGY METHOD 03/13/2025 8:46 AM EDT [facility] SO2, Measured, Arterial 98 94 - 98 % LAB HEMATOLOGY METHOD 03/13/2025 8:46 AM EDT [facility] Base Excess, Arterial 0.1 -2.0 - 3.0 mmol/L LAB HEMATOLOGY METHOD 03/13/2025 8:46 AM EDT [facility] Bicarbonate, Calculated, Arterial 24 22 - 26 mmol/L LAB HEMATOLOGY METHOD 03/13/2025 8:46 AM EDT [facility] Hematocrit, Whole Blood 33.2(L) 34.0 - 45.0 % LAB HEMATOLOGY METHOD 03/13/2025 8:46 AM EDT [facility] Sodium, Whole Blood 140 136 - 145 mmol/L LAB HEMATOLOGY METHOD 03/13/2025 8:46 AM EDT [facility] Potassium, Whole Blood 3.2(L) 3.6 - 4.9 mmol/L LAB HEMATOLOGY METHOD 03/13/2025 8:46 AM EDT [facility] Chloride, Whole Blood 108(H) 97 - 107 mmol/L LAB HEMATOLOGY METHOD 03/13/2025 8:46 AM EDT [facility] Glucose, Whole Blood 103(H) 74 - 99 mg/dL LAB HEMATOLOGY METHOD 03/13/2025 8:46 AM EDT [facility] Ionized Calcium, Whole Blood 4.4(L) 4.6 - 5.1 mg/dL LAB HEMATOLOGY METHOD 03/13/2025 8:46 AM EDT [facility] Lactate, Arterial, Whole Blood 0.8 0.5 - 1.6 mmol/L LAB HEMATOLOGY METHOD 03/13/2025 8:46 AM EDT [facility] Blood Arterial blood specimen / Unknown Arterial Puncture / Unknown 03/13/2025 8:18 AM EDT 03/13/2025 8:43 AM EDT Lenin Farmer CRNA LAB BLOOD ORDERABLES Barbara l Result Performing Organization Address City/[facility]/ZIP Co de Phone Number [facility] [address] [place] [address] * Type and screen (03/13/2025 8:18 AM EDT) ABO/Rh A Positive 03/13/2025 8:11 AM EDT BLOOD BANK Antibody Screen Negative 03/13/2025 8:11 AM EDT BLOOD BANK Specimen Expiration 03/16/2025 23:59 03/13/2025 8:11 AM EDT BLOOD BANK Blood Venous blood specimen / Unknown Venipuncture / Unknown 03/13/2025 8:18 AM EDT 03/13/2025 8:28 AM EDT Lenin Farmer CRNA LAB BLOOD BANK TEST ORDER AMBROSE Final Result Performing Organization Address [facility] de Phone Number BLOOD BANK [address] * (ABNORMAL) Basic metabolic panel (03/13/2025 12:19 AM EDT) Glucose, Plasma 115(H) 74 - 99 mg/dL 03/13/2025 12:58 AM EDT [facility] BUN, Plasma 20 8 - 23 mg/dL 03/13/2025 12:58 AM EDT [facility] Creatinine, Plasma 0.91 0.60 - 1.10 mg/dL 03/13/2025 12:58 AM EDT [facility] BUN/Creatinine Ratio 22 03/13/2025 12:58 AM EDT [facility] Sodium, Plasma 138 136 - 145 mmol/L 03/13/2025 12:58 AM EDT [facility] Potassium, Plasma 3.7 3.6 - 4.9 mmol/L 03/13/2025 12:58 AM EDT [facility] Chloride, Plasma 102 97 - 107 mmol/L 03/13/2025 12:58 AM EDT [facility] CO2, Plasma 23 22 - 29 mmol/L 03/13/2025 12:58 AM EDT [facility] Anion Gap 13 6 - 16 mmol/L 03/13/2025 12:58 AM EDT [facility] Total Calcium, Plasma 9.3 8.9 - 10.2 mg/dL 03/13/2025 12:58 AM EDT [facility] eGFRcr 68.0 mL/min/1.7 3m*2 03/13/2025 12:58 AM EDT [facility] Comment:Reported eGFRcr in m L/min/1.73m2 is based the CKD-EPI 2020 equation that does not use a race coefficient. Blood Venous blood specimen / Unknown Venipuncture / Unknown 03/13/2025 12:19 AM EDT 03/13/2025 12:26 AM EDT Dion Moeller MD LAB BLOOD ORDERABLES Final Result [facility] [address] [place] [address] * (ABNORMAL) CBC (03/13/2025 12:19 AM EDT) WBC Count 11.75(H) 3.70 - 10.30 10*3/uL LAB HEMATOLOGY METHOD 03/13/2025 12:48 AM EDT [facility] RBC Count 4.48 3.90 - 5.20 10*6/uL LAB HEMATOLOGY METHOD 03/13/2025 12:48 AM EDT [facility] HGB 12.7 11.2 - 15.7 g/dL LAB HEMATOLOGY METHOD 03/13/2025 12:48 AM EDT [facility] HCT 39.2 34.0 - 45.0 % LAB HEMATOLOGY METHOD 03/13/2025 12:48 AM EDT [facility] Platelet Count 223 155 - 369 10*3/uL LAB HEMATOLOGY METHOD 03/13/2025 12:48 AM EDT [facility] MCV 88 79 - 98 fL LAB HEMATOLOGY METHOD 03/13/2025 12:48 AM EDT [facility] MCH 28.3 26.0 - 32.0 pg LAB HEMATOLOGY METHOD 03/13/2025 12:48 AM EDT [facility] MCHC 32.4 30.7 - 35.5 g/dL LAB HEMATOLOGY METHOD 03/13/2025 12:48 AM EDT [facility] RDW 14.1 11.5 - 14.5 % LAB HEMATOLOGY METHOD 03/13/2025 12:48 AM EDT [facility] MPV 11.9 8.8 - 12.5 fL LAB HEMATOLOGY METHOD 03/13/2025 12:48 AM EDT [facility] nRBC 0.0 <=0.0 per 100 WBCs LAB HEMATOLOGY METHOD 03/13/2025 12:48 AM EDT [facility] Blood Venous blood specimen / Unknown Venipuncture / Unknown 03/13/2025 12:19 AM EDT 03/13/2025 12:29 AM EDT Dion Moeller MD LAB BLOOD ORDERABLES Final Result Performing Organization Address City/State/[facility] Co de Phone Number [facility] [address] [place] [address] * LEFT HEART CATHETERIZATION, CORONARY ANGIOGRAPHY (03/12/2025 1:34 PM EDT) Anatomical Region Laterality Modality Other Narrative 03/20/2025 8:12 AM EDT Conclusion: 1. Coronary angiogram performed for pre-thoracic and abdominal aortic aneurysm. 2. No obstructive epicardial CAD noted. Recommendations: 1. Findings communicated to CTS. I was physically present at the bedside for the entire case. I agree with the findings and plan as outlined above. Dion Moeller MD Procedure Details After informed consent was obtained, the patient was brought to the cardiac catheterization laboratory. A time out was done to confirm the correct patient, site and procedure. The patient's right wrist was prepped and draped in sterile fashion. The skin overlying the patient's right radial region was anesthetized with 1% lidocaine. Using modified Seldinger technique, a 21-gauge micropuncture needle was used to puncture the right radial artery and 0.021 guidewire was advanced into the radial artery without difficulty. A 6F short sheath was advanced over a guidewire and flushed. At that time a cocktail of heparin and nitroglycerin was given through the radial sheath. 5F Valentin was advanced into the ascending aorta using a 0.035'' J-tipped and guidewire and 6F JR4 catheter was advanced into the ascending aorta over a Glidewire. Selective right and left coronary arteriography was then carried out in a variety of projections using small amounts of isosmolar contrast material, which was injected by hand. The diagnostic catheter was then withdrawn. A TR band was placed, and the radial artery introducer was removed. The TR band was inflated with 14 mL of air. The patient was transferred back to the warehouse general laborer holding area in good condition. Coronary Findings Diagnostic Dominance: Right Left Main: The LMCA is a large caliber vessel that arises from the L coronary cusp, and bifurcates into the LAD and L circumflex arteries. There is no angiographic evidence of CAD. Left Anterior Descending: The vessel was selectively engaged. The vessel is angiographically normal. The LAD is a large caliber vessel arising from the LMCA, and gives off a large diagonal branch, 2 smaller diagonal branches and septal perforators before coursing to and terminating at the apex of the heart. There is no angiographic evidence of obstructive CAD present. Left Circumflex: The L circumflex artery is a large caliber vessel that arises from the LMCA, and gives off OM branches before coursing to and terminating within the posterior AV groove. There is no angiographic evidence for obstructive CAD. Right Coronary Artery: The vessel was selectively engaged. The vessel is angiographically normal. The RCA is a large caliber vessel arising from the R coronary cusp, giving off marginal branches, and courses to and through the posterior AV groove before giving off a PDA and a PL system (R-dominant system). There is no angiographic evidence of obstructive CAD. Intervention No interventions have been documented. Hemodynamic Data Pressures Phase: Resting Aortic AO: 99/50 (48) mmHg us Jose C Nicholson MD CV CARDIAC CATH PROCEDURES Barbara wynn Result * POCT creatinine (03/12/2025 11:04 AM EDT) Creatinine, Point of Care 1.1 0.6 - 1.1 mg/dL 03/12/2025 11:08 AM [facility] POCT eGFR 54 mL/min/1. 73m*2 03/12/2025 11:08 AM EDT [facility] Interactive Video Technician ID Paresh Khan 03/12/2025 11:08 AM EDT [facility] Device ID [id number] 03/12/2025 11:08 AM EDT [facility] Comment 03/12/2025 11:08 AM EDT [facility] Comment:Testing performed on i-STAT at the point of care. Reported eGFRcr in mL/min/1.73m2 is based the CKD-EPI 2020 equation that does not use a race coefficient. Blood Venous blood specimen / Unknown 03/12/2025 11:04 AM EDT 03/12/2025 11:08 AM EDT us Dion Moeller MD LAB POINT OF CARE T EST DOCKED DEVICE UNSOLICITED RESULTS Final Result [facility] [address] [facility] [address] [place] [address] * Basic metabolic panel (03/12/2025 10:55 AM EDT) Glucose, Plasma 80 74 - 99 mg/dL 03/12/2025 11:40 AM EDT [facility] BUN, Plasma 22 8 - 23 mg/dL 03/12/2025 11:40 AM EDT [facility] Creatinine, Plasma 0.89 0.60 - 1.10 mg/dL 03/12/2025 11:40 AM EDT [facility] BUN/Creatinine Ratio 03/12/2025 11:40 AM EDT [facility] Sodium, Plasma 138 136 - 145 mmol/L 03/12/2025 11:40 AM EDT [facility] Potassium, Plasma 4.0 3.6 - 4.9 mmol/L 03/12/2025 11:40 AM EDT [facility] Chloride, Plasma 101 97 - 107 mmol/L 03/12/2025 11:40 AM EDT [facility] CO2, Plasma 25 22 - 29 mmol/L 03/12/2025 11:40 AM EDT [facility] Anion Gap 12 6 - 16 mmol/L 03/12/2025 11:40 AM EDT [facility] Total Calcium, Plasma 9.5 8.9 - 10.2 mg/dL 03/12/2025 11:40 AM EDT [facility] eGFRcr 69.8 mL/min/1.7 3m*2 03/12/2025 11:40 AM EDT [facility] Comment:Reported eGFRcr in m L/min/1.73m2 is based the CKD-EPI 2020 equation that does not use a race coefficient. Blood Venous blood specimen / Unknown Venipuncture / Unknown 03/12/2025 10:55 AM EDT 03/12/2025 11:09 AM EDT us Dion Moeller MD LAB BLOOD ORDERABLES Final Result [facility] [address] [place] [address] * Hemogram (CBC) (03/12/2025 10:55 AM EDT) WBC Count 6.87 3.70 - 10.30 10*3/uL LAB HEMATOLOGY METHOD 03/12/2025 11:24 AM EDT [facility] RBC Count 4.16 3.90 - 5.20 10*6/uL LAB HEMATOLOGY METHOD 03/12/2025 11:24 AM EDT [facility] HGB 11.7 11.2 - 15.7 g/dL LAB HEMATOLOGY METHOD 03/12/2025 11:24 AM EDT [facility] HCT 36.8 34.0 - 45.0 % LAB HEMATOLOGY METHOD 03/12/2025 11:24 AM EDT [facility] Platelet Count 208 155 - 369 10*3/uL LAB HEMATOLOGY METHOD 03/12/2025 11:24 AM EDT [facility] MCV 89 79 - 98 fL LAB HEMATOLOGY METHOD 03/12/2025 11:24 AM EDT [facility] MCH 28.1 26.0 - 32.0 pg LAB HEMATOLOGY METHOD 03/12/2025 11:24 AM EDT [facility] MCHC 31.8 30.7 - 35.5 g/dL LAB HEMATOLOGY METHOD 03/12/2025 11:24 AM EDT [facility] RDW 14.3 11.5 - 14.5 % LAB HEMATOLOGY METHOD 03/12/2025 11:24 AM EDT [facility] MPV 12.1 8.8 - 12.5 fL LAB HEMATOLOGY METHOD 03/12/2025 11:24 AM EDT [facility] nRBC 0.0 <=0.0 per 100 WBCs LAB HEMATOLOGY METHOD 03/12/2025 11:24 AM EDT [facility] Blood Venous blood specimen / Unknown Venipuncture / Unknown 03/12/2025 10:55 AM EDT 03/12/2025 11:13 AM EDT us Dion Moeller MD LAB BLOOD ORDERABLES Final Result [facility] [address] [place] [address] documented in this encounter Visit Diagnoses Diagnosis 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) Asymptomatic stenosis of right carotid artery 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) Asymptomatic stenosis of right carotid artery documented in this encounter Admitting Diagnoses Diagnosis 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) Asymptomatic stenosis of right carotid artery 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) documented in this encounter Administered Medications Inactive Administered Medications - up to 3 most recent administrations Medication Order MAR Action Action Date Dose Rate Site acetaminophen (Tylenol) tablet 650 mg 650 mg, Oral, Every 6 hours PRN, Starting on Mon03/12/25 at 2101, Until Mon03/14/25 at 1440, Routine, mild pain, moderate pain, headaches, fever Given 03/12/2025 9:19 PM EDT 650 mg acetaminophen (Tylenol) tablet 650 mg 650 mg, Oral, Every 8 hours, First dose on Marian 03/13/25 at 1045, Until Discontinued, Routine, Recovery(Phase II-Outpatient)/On Unit(Inpatient) Given 03/14/2025 11:34 AM EDT 650 mg Given 03/13/2025 6:08 PM EDT 650 mg Given 03/13/2025 10:34 AM EDT 650 mg ALPRAZolam (Xanax) tablet 0.5 mg 0.5 mg, Oral, Nightly PRN, Starting on Mon03/12/25 at 2100, Until Mon03/14/25 at 1440, Routine, anxiety Given 03/13/2025 9:15 PM EDT 0.5 mg Given 03/12/2025 9:19 PM EDT 0.5 mg aspirin chewable tablet 81 mg 81 mg, Oral, Daily, First dose on Mon03/14/25 at 0900, Until Discontinued, Routine, Recovery(Phase II-Outpatient)/On Unit(Inpatient) Given 03/14/2025 9:22 AM EDT 81 mg bisoprolol (Zebeta) tablet 10 mg 10 mg, Oral, Daily, First dose on Mon03/12/25 at 2200, Until Discontinued, Routine Given 03/13/2025 11:57 AM EDT 10 mg Given 03/12/2025 10:36 PM EDT 10 mg clopidogrel (Plavix) tablet 75 mg 75 mg, Oral, Daily, First dose on Mon03/14/25 at 0900, Until Discontinued, Routine, Recovery(Phase II-Outpatient)/On Unit(Inpatient) Given 03/14/2025 9:22 AM EDT 75 mg heparin (porcine) injection 5,000 Units 5,000 Units, Subcutaneous, Every 8 hours scheduled, First dose on Marian 03/13/25 at 1400, Until Discontinued, Routine, Recovery(Phase II-Outpatient)/On Unit(Inpatient) Given 03/14/2025 6:46 AM EDT 5,000 Units Left Lower Abdomen Given 03/13/2025 9:15 PM EDT 5,000 Units R ight Upper Abdomen Given 03/13/2025 1:07 PM EDT 5,000 Units R ight Lower Abdomen lactated Ringer's bolus 500 mL 500 mL, Intravenous, Once, 1 dose, On Marian 03/13/25 at 2300, Administer over 2 Hours, Routine New Bag 03/13/2025 10:14 PM EDT 500 mL 250 mL/h r lisinopril tablet 20 mg 20 mg, Oral, Daily, First dose on Mon03/12/25 at 2200, Until Discontinued, Routine Given 03/13/2025 11:24 AM EDT 20 mg Given 03/12/2025 9:19 PM EDT 20 mg magnesium sulfate IVPB 2 g 2 g, Intravenous, Once, 1 dose, On Mon03/14/25 at 0715, Routine Rate/Dose Verify 03/14/2025 11:00 AM EDT 25 mL/hr Rate/Dose Verify 03/14/2025 8:00 AM EDT 25 mL/h r Rate/Dose Verify 03/14/2025 7:00 AM EDT 25 mL/h r mupirocin (Bactroban) 2 % ointment 1 Application Each Nostril, 2 times daily, 10 doses, First dose on Mon03/13/25 at 2100, Last dose on Mon03/18/25 at 0900, Routine Given 03/14/2025 9:22 AM EDT 1 Application Given 03/13/2025 9:15 PM EDT 1 Application ondansetron (Zofran) 4 MG/5ML solution 4 mg 4 mg, Oral, Every 6 hours PRN, Starting on Mon03/13/25 at 0950, Until Mon03/14/25 at 1440, Routine, Recovery(Phase II-Outpatient)/On Unit(Inpatient), nausea, vomiting ondansetron (Zofran) injection 4 mg 4 mg, Intravenous, Every 6 hours PRN, Starting on Mon03/13/25 at 0950, Until Mon03/14/25 at 1440, Routine, Recovery(Phase II-Outpatient)/On Unit(Inpatient), vomiting, nausea ondansetron ODT (Zofran-ODT) disintegrating tablet 4 mg 4 mg, Oral, Every 6 hours PRN, Starting on Mon03/13/25 at 0950, Until Mon03/14/25 at 1440, Routine, Recovery(Phase II-Outpatient)/On Unit(Inpatient), nausea, vomiting oxyCODONE (Roxicodone) immediate release tablet 5 mg 5 mg, Oral, Once as needed, 2 doses, Starting on Mon03/13/25 at 0947, Until Mon03/13/25 at 1709, Routine, Recovery (Phase I only), pain score of 3-5 out of 10 Given 03/13/2025 10:34 AM EDT 5 mg PARoxetine (Paxil) tablet 20 mg 20 mg, Oral, Nightly, First dose on Mon03/12/25 at 2115, Until Discontinued, Routine Given 03/13/2025 9:15 PM EDT 20 mg Given 03/12/2025 9:19 PM EDT 20 mg potassium chloride CR (Klor-Con) ER tablet 30 mEq 30 mEq, Oral, Once, 1 dose, On Mon03/13/25 at 0700, Routine, Recovery(Phase II-Outpatient)/On Unit(Inpatient) Given 03/13/2025 6:21 AM EDT 30 mEq Povidone-Iodine 5 % swab solution 1 Application Nasal, Once, 1 dose, On Mon03/13/25 at 0700, Routine Given 03/13/2025 7:15 AM EDT 1 Application sodium chloride 0.9 % flush 10 mL 10 mL, Intravenous, Every 12 hours, First dose on Mon03/12/25 at 1130, Until Discontinued, Routine, On Unit - Preprocedure Given 03/13/2025 11:06 PM EDT 10 mL sodium chloride 0.9 % flush 10 mL 10 mL, Intravenous, As needed, Starting on Mon03/12/25 at 1036, Until Mon03/14/25 at 1440, Routine, On Unit - Preprocedure, line care sodium chloride 0.9 % flush 10 mL 10 mL, Intravenous, Every 12 hours, First dose on Mon03/13/25 at 0700, Until Discontinued, Routine, Holding - Preprocedure Given 03/13/2025 7:15 AM EDT 10 mL documented in this encounter Active and Recently Administered Medications Times are shown in EDT. Scheduled Medication Order 03/12/2025 03/13/2025 03/14/2025 acetaminophen (Tylenol) tablet 650 mg 650 mg, Oral, Every 8 hours, First dose on Mon03/13/25 at 1045, Until Discontinued, Routine, Recovery(Phase II-Outpatient)/On Unit(Inpatient) 1034 (Given - Provider: Lynette Green)1808 (Given - Provider: Elena Patrick RN) 0232 (Not Given - Provider: Jemal Fields RN - Reason: Patient/family refused)1134 (Given - Provider: Alicja Garsia) aspirin chewable tablet 81 mg 81 mg, Oral, Daily, First dose on Mon03/14/25 at 0900, Until Discontinued, Routine, Recovery(Phase II-Outpatient)/On Unit(Inpatient) 09 (Given - Provider: Lon Marshall, ABHILASH) bisoprolol (Zebeta) tablet 10 mg (CANCELED) 10 mg, Oral, Daily, First dose on Mon03/12/25 at 2200, Until Discontinued, Routine 2235 (Given - Provider: Cate Valderrama, ABHILASH) 0546 (MAR Hold - Provider: Automatic Transfer Provider - Reason: Patient in procedure)0900 (Dose Auto Held - Provider: Automatic Transfer Provider)1114 (MAR Unhold - Provider: Lynette Green)1157 (Given - Provider: Robina Neal RN) clopidogrel (Plavix) tablet 75 mg 75 mg, Oral, Daily, First dose on Mon03/14/25 at 0900, Until Discontinued, Routine, Recovery(Phase II-Outpatient)/On Unit(Inpatient) 921 (Given - Provider: Lon Marshall RN) heparin (porcine) injection 5,000 Units 5,000 Units, Subcutaneous, Every 8 hours scheduled, First dose on Marian 03/13/25 at 1400, Until Discontinued, Routine, Recovery(Phase II-Outpatient)/On Unit(Inpatient) 1307 (Given - Provider: Lynette Green)2115 (Given - Provider: Jemal Fields, ABHILASH) 0646 (Given - Provider: Jemal Fields, ABHILASH)1400 (Canceled Entry - Provider: Automatic Discharge Provider - Comment: Automatically canceled at discontinue of medication order) lactated Ringer's bolus 500 mL (COMPLETED) 500 mL, Intravenous, Once, 1 dose, On Marian 03/13/25 at 2300, Administer over 2 Hours, Routine 221 (New Bag - Provider: Jemal Fields, ABHILASH) lisinopril tablet 20 mg (CANCELED) 20 mg, Oral, Daily, First dose on Mon03/12/25 at 2200, Until Discontinued, Routine 2118 (Given - Provider: Cate Valderrama, ABHILASH) 0546 (MAR Hold - Provider: Automatic Transfer Provider - Reason: Patient in procedure)0900 (Dose Auto Held - Provider: Automatic Transfer Provider)1114 (NOV Unhold - Provider: Lynette Green)1124 (Given - Provider: Lynette Green) magnesium sulfate IVPB 2 g (COMPLETED) 2 g, Intravenous, Once, 1 dose, On Mon03/14/25 at 0715, Routine 0646 (New Bag - Provider: Jemal Fields, ABHILASH)0700 (Rate/Dose Verify - Provider: Alicja Garsia)0800 (Rate/Dose Verify - Provider: Alicja Garsia)1100 (Rate/Dose Verify - Provider: Alicja Garsia)1151 (Stopped - Provider: Alicja Garsia) mupirocin (Bactroban) 2 % ointment 1 Application Each Nostril, 2 times daily, 10 doses, First dose on Mon03/13/25 at 2100, Last dose on Mon03/18/25 at 0900, Routine 2114 (Given - Provider: Jemal Fields, ABHILASH) 0922 (Given - Provider: Lon Marshall RN) PARoxetine (Paxil) tablet 20 mg 20 mg, Oral, Nightly, First dose on Mon03/12/25 at 211, Until Discontinued, Routine 2118 (Given - Provider: Cate Valderrama, ABHILASH) 0546 (NOV Hold - Provider: Automatic Transfer Provider - Reason: Patient in procedure)170 (NOV Unhold - Provider: Automatic Transfer Provider)2114 (Given - Provider: Jemal Fields, ABHILASH) potassium chloride CR (Klor-Con) ER tablet 30 mEq (COMPLETED) 30 mEq, Oral, Once, 1 dose, On Mon03/13/25 at 0700, Routine, Recovery(Phase II-Outpatient)/On Unit(Inpatient) 0621 (Given - Provider: Krystal Mead, ABHILASH) Povidone-Iodine 5 % swab solution 1 Application (COMPLETED) Nasal, Once, 1 dose, On Mon03/13/25 at 0700, Routine 0715 (Given - Provider: Krystal Mead, ABHILASH) sodium chloride 0.9 % flush 10 mL(Linked Group 1) 10 mL, Intravenous, Every 12 hours, First dose on Mon03/12/25 at 1130, Until Discontinued, Routine, On Unit - Preprocedure 1130 (Canceled Entry - Provider: Automatic Discharge Provider - Comment: Automatically canceled at discontinue of medication order) 0546 (NOV Hold - Provider: Automatic Transfer Provider - Reason: Patient in procedure)0800 (Dose Auto Held - Provider: Automatic Transfer Provider)1130 (Dose Auto Held - Provider: Automatic Transfer Provider)170 (MAR Unhold - Provider: Automatic Transfer Provider)2306 (Given - Provider: Jemal Fields, RN) 1202 (Canceled Entry - Provider: Lon Marshall RN) sodium chloride 0.9 % flush 10 mL (CANCELED)(Linked Group 2) 10 mL, Intravenous, Every 12 hours, First dose on Marian 03/13/25 at 0700, Until Discontinued, Routine, Holding - Preprocedure 0715 (Given - Provider: Krystal Mead, ABHILASH) PRN Medication Order 03/12/2025 03/13/2025 03/14/2025 acetaminophen (Tylenol) tablet 650 mg 650 mg, Oral, Every 6 hours PRN, Starting on Mon03/12/25 at 2101, Until Mon03/14/25 at 1440, Routine, mild pain, moderate pain, headaches, fever 2118 (Given - Provider: Cate Valderrama RN) 0546 (NOV Hold - Provider: Automatic Transfer Provider - Reason: Patient in procedure)1708 ([facility] Unhold - Provider: Automatic Transfer Provider) ALPRAZolam (Xanax) tablet 0.5 mg 0.5 mg, Oral, Nightly PRN, Starting on Mon03/12/25 at 2100, Until Mon03/14/25 at 1440, Routine, anxiety 2118 (Given - Provider: Cate Valderrama, ABHILASH) 0546 (NOV Hold - Provider: Automatic Transfer Provider - Reason: Patient in procedure)1708 (NOV Unhold - Provider: Automatic Transfer Provider)2114 (Given - Provider: Jemal Fields, ABHILASH) ceFAZolin (Ancef) 1 g in sodium chloride 0.9 % 1,000 mL OR irrigation (COMPLETED) Continuous PRN, Starting on Marian 03/13/25 at 0812, Until Marian 03/13/25 at 0939, Routine 0812 (New Bag - Provider: Cedrick Franz MD - Comment: placed on surgical feild) fentaNYL (Sublimaze) injection (CANCELED) As needed, Starting on Mon03/12/25 at 1237, Until Mon03/12/25 at 1338, Routine, Intraprocedure 1237 (Given - Provider: Quyen Ortiz RN)1242 (Given - Provider: Quyen Ortiz RN)1300 (Given - Provider: Quyen Ortiz RN)1320 (Given - Provider: Quyen Ortiz RN) heparin (porcine) 10,000 Units in sodium chloride 0.9 % 1,010 mL OR irrigation (COMPLETED) Continuous PRN, Starting on Marian 03/13/25 at 0810, Until Mon03/13/25 at 0939, Routine 0810 (New Bag - Provider: Cedrick Franz MD - Comment: placed on surgical feild) heparin (porcine) injection (CANCELED) As needed, Starting on Mon03/12/25 at 1241, Until Mon03/12/25 at 1338, Routine, Intraprocedure 1241 (Given - Provider: Cortes Segura DO - Comment: via sheath) hydrALAZINE (Apresoline) injection 10 mg 10 mg, Intravenous, Every 30 min PRN, Starting on Mon03/13/25 at 0950, Until Mon03/14/25 at 1440, Routine, Recovery(Phase II-Outpatient)/On Unit(Inpatient), high blood pressure, for SBP > 140 and HR < 60 iodixanol (VISIPaque) 320 MG/ML injection (CANCELED) As needed, Starting on Mon03/12/25 at 1331, Until Mon03/12/25 at 1338, Routine, Intraprocedure 1331 (Given - Provider: Afshan Lazar MD) iodixanol (VISIPaque) 320 MG/ML injection (CANCELED) As needed, Starting on Marian 03/13/25 at 0811, Until Marian 03/13/25 at 0944, Routine, Intraprocedure 0811 (Given - Provider: Cedrick Franz MD - Comment: placed on surgical feild) labetalol (Normodyne,Trandate) injection 5 mg 5 mg, Intravenous, Every 30 min PRN, Starting on Marian 03/13/25 at 0947, Until Mon03/14/25 at 1440, Routine, Recovery(Phase II-Outpatient)/On Unit(Inpatient), high blood pressure, for SBP > 140 and HR > 60 lidocaine (Xylocaine) 2 % injection (CANCELED) As needed, Starting on Mon03/12/25 at 1240, Until Mon03/12/25 at 1338, Routine, Intraprocedure 1239 (Given - Provider: Cortes Segura, DO - Comment: right radial) midazolam (Versed) injection (CANCELED) As needed, Starting on Mon03/12/25 at 1237, Until Mon03/12/25 at 1338, Routine, Intraprocedure 1237 (Given - Provider: Quyen Ortiz RN)1242 (Given - Provider: Quyen Ortiz RN)1300 (Given - Provider: Quyen Ortiz RN)1320 (Given - Provider: Quyen Ortiz RN) nitroglycerin (Tridil) in D5W IV solution 100 mcg/mL (CANCELED) As needed, Starting on Mon03/12/25 at 1241, Until Mon03/12/25 at 1338, Routine, Intraprocedure 1241 (Given - Provider: Cortes Segura, DO - Comment: via sheath) ondansetron (Zofran) 4 MG/5ML solution 4 mg(Linked Group 3) 4 mg, Oral, Every 6 hours PRN, Starting on Marian 03/13/25 at 0950, Until Mon03/14/25 at 1440, Routine, Recovery(Phase II-Outpatient)/On Unit(Inpatient), nausea, vomiting ondansetron (Zofran) injection 4 mg(Linked Group 3) 4 mg, Intravenous, Every 6 hours PRN, Starting on Marian 03/13/25 at 0950, Until Mon03/14/25 at 1440, Routine, Recovery(Phase II-Outpatient)/On Unit(Inpatient), vomiting, nausea ondansetron ODT (Zofran-ODT) disintegrating tablet 4 mg(Linked Group 3) 4 mg, Oral, Every 6 hours PRN, Starting on Marian 03/13/25 at 0950, Until Mon03/14/25 at 1440, Routine, Recovery(Phase II-Outpatient)/On Unit(Inpatient), nausea, vomiting oxyCODONE (Roxicodone) immediate release tablet 5 mg (CANCELED)(Linked Group 4) 5 mg, Oral, Once as needed, 2 doses, Starting on Marian 03/13/25 at 0947, Until Mon03/13/25 at 1709, Routine, Recovery (Phase I only), pain score of 3-5 out of 10 1034 (Given - Provider: Lynette Green) oxyCODONE (Roxicodone) immediate release tablet 5 mg 5 mg, Oral, Every 6 hours PRN, Starting on Mon03/13/25 at 0950, Until Mon03/14/25 at 1440, Routine, Recovery(Phase II-Outpatient)/On Unit(Inpatient), moderate pain, severe pain sodium chloride 0.9 % flush 10 mL(Linked Group 1) 10 mL, Intravenous, As needed, Starting on Mon03/12/25 at 1036, Until Mon03/14/25 at 1440, Routine, On Unit - Preprocedure, line care 0546 (MAR Hold - Provider: Automatic Transfer Provider - Reason: Patient in procedure)1709 (MAR Unhold - Provider: Automatic Transfer Provider) Linked Groups Order Group 1: Insert peripheral IV (CANCELED) Once, On Mon03/12/25 at 1037, For 1 occurrence, On Unit - Preprocedure And Saline lock IV (CANCELED) Once, On Mon03/12/25 at 1037, For 1 occurrence, On Unit - Preprocedure And sodium chloride 0.9 % flush 10 mLJump to med 10 mL, Intravenous, Every 12 hours, First dose on Mon03/12/25 at 1130, Until Discontinued, Routine, On Unit - Preprocedure And sodium chloride 0.9 % flush 10 mLJump to med 10 mL, Intravenous, As needed, Starting on Mon03/12/25 at 1036, Until Mon03/14/25 at 1440, Routine, On Unit - Preprocedure, line care Group 2: Insert peripheral IV (CANCELED) Once, On Mon03/13/25 at 0610, For 1 occurrence, Holding - Preprocedure And Saline lock IV (CANCELED) Once, On Mon03/13/25 at 0610, For 1 occurrence, Holding - Preprocedure And sodium chloride 0.9 % flush 10 mL (CANCELED)Jump to med 10 mL, Intravenous, Every 12 hours, First dose on Mon03/13/25 at 0700, Until Discontinued, Routine, Holding - Preprocedure And sodium chloride 0.9 % flush 10 mL (CANCELED) 10 mL, Intravenous, As needed, Starting on Mon03/13/25 at 0609, Until Mon03/13/25 at 1709, Routine, Holding - Preprocedure, line care Group 3: ondansetron ODT (Zofran-ODT) disintegrating tablet 4 mgJump to med 4 mg, Oral, Every 6 hours PRN, Starting on Mon03/13/25 at 0950, Until Mon03/14/25 at 1440, Routine, Recovery(Phase II-Outpatient)/On Unit(Inpatient), nausea, vomiting Or ondansetron (Zofran) injection 4 mgJump to med 4 mg, Intravenous, Every 6 hours PRN, Starting on Mon03/13/25 at 0950, Until Mon03/14/25 at 1440, Routine, Recovery(Phase II-Outpatient)/On Unit(Inpatient), vomiting, nausea Or ondansetron (Zofran) 4 MG/5ML solution 4 mgJump to med 4 mg, Oral, Every 6 hours PRN, Starting on Mon03/13/25 at 0950, Until Mon03/14/25 at 1440, Routine, Recovery(Phase II-Outpatient)/On Unit(Inpatient), nausea, vomiting Group 4: oxyCODONE (Roxicodone) immediate release tablet 5 mg (CANCELED)Jump to med 5 mg, Oral, Once as needed, 2 doses, Starting on Mon03/13/25 at 0947, Until Mon03/13/25 at 1709, Routine, Recovery (Phase I only), pain score of 3-5 out of 10 Or oxyCODONE (Roxicodone) immediate release tablet 10 mg (CANCELED) 10 mg, Oral, Once as needed, 2 doses, Starting on Mon03/13/25 at 0947, Until Mon03/13/25 at 1709, Routine, Recovery (Phase I only), pain score of 6-8 out of 10 documented in this encounter Additional Health Concerns Assessment Noted Time A fall risk assessment has been complete d for the patient 02/26/2025 9:04 AM EDT A Body Mass Index follow-up plan has been documented for the patient 03/14/2025 11:50 AM EDT documented as of this encounter Care Teams Steward/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
--- OUTSIDE RECORDS SUMMARY | 2025-03-12 10:35 | XMS_ITS | Encounter Summary ---
Author Organization [facility] Address [address] 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] Asymptomatic stenosis of right carotid artery [I65.21] Procedures [place] LEFT HEART CATH INJECT VETRICULOGRAPHY, IMAGE SUPERVISE/INTERP Left heart catheterization Dion Moeller MD [address] [place] [address] Phone: tel: fax: Cardiac It Support Manager [address] [place] [address] Phone: tel: Referral ID Status Reason Start Date Expiration Date Visits Re quested Visits Authorized [id number] 1 1 Encounter Details Date Type Department Care Team (Late st Contact Info) Description 03/12/2025 10:35 AM EDT - 03/12/2025 11:35 AM EDT Surgery Cardiac It Support Manager [address] [place] [address] Dion Moeller MD [address] [place] [address] Left heart catheterization [47185 (CPT )] Surgery Details Date/Time Status Location OR Service Patient Class Case Class Case Type Trauma Case? 03/12/2025 10:35 AM Posted [facility] 04 Cardiovascular Surgery Admit E-Electi ve Panel 1 Procedure LRB Anes Op Region Wound Class Comments Left heart catheterization N/A Coronary angiography N/A Surgeon Surgeon Role Service Panel Afshan Lazar MD Fellow Cardiovascular 1 Cortes Segura DO Fellow Cardiovascular 1 Nelda Villegas Fellow Cardiovascular 1 Dion Moeller MD Primary Cardiovascular 1 documented in this encounter Social History Tobacco Use Types Packs/Day Years [...] Sign Reading Time Taken Comments Blood Pressure 143/51 03/12/2025 10:45 AM EDT Pulse 70 03/12/2025 10:45 AM EDT Temperature 36.6 C (97.8 F) 03/12/2025 10:45 AM EDT Respiratory Rate 13 03/12/2025 10:45 AM EDT Oxygen Saturation 98% 03/12/2025 10:45 AM EDT Inhaled Oxygen Concentration - - Weight 71.8 kg (158 lb 4.6 oz) 03/12/2025 10:45 AM EDT Height 167.6 cm (5' 6 ) 03/12/2025 10:45 AM EDT Body Mass Index 25.5 03/12/2025 10:45 AM EDT documented in this encounter Medications at Time of Discharge [...] by mouth daily. 30 tablet 11 02/27/2025 6 hydroCHLOROthiaz calista (HYDRODiuril) 25 MG [...] Miscellaneous Notes * Hospital Course - Sarah Alas, LOG POND WORKER - 03/14/2025 12:15 PM EDT Joi Marcial is a 69 y.o. female who presented to [facility] on 03/13/2025 for planned staged repair of descending thoracic abdominal aortic aneurysm. 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 Patient previously evaluated at [facility] with plans for staged repair including elephant trunk followed by endovascular repair. She presented to vascular clinic for 2nd opinion as it is closer to home with the shoulder DrKirk. CTA demonstrated maximal diameter of 6.2 cm in descending thoracic aorta. Additionally she had 70-80% stenosis of proximal right ICA and left CNC MILL PROGRAMMER high-grade stenosis. Patient denied back, chest, abdominal [...] Discharge Note Joi Marcial 69 y.o. female CSN: [id number] Admission: 03/12/2025 10:26 AM Primary Problem: 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) Primary Cyberathlete: Primary Caregiver: Self Assistance Available at Discharge: [...] admission Follow-up: Cedrick Franz MD [address] [address] Discharge Transportation: Transportation Anticipated: family or friend will provide Transportation Home at Discharge: Family/Friend will Provide Follow Up Transport: Transportation Needed to Follow up Appoinments: Family/Friend will Provide Additional Comments: Patient discharging home Martina Lundberg SALES AND MERCHANDISING ASSOCIATE * Discharge Summary - Saarh Alas APRN - 03/14/2025 11:05 AM EDT Images from the original note were not included. Vascular Surgery Discharge Summary Hospitalization Admit Date/Time: 03/12/2025 10:26 AM Admitting Attending: Cedrick Franz Discharge Date: 03/14/2025 Discharge Attending Physician: Elena Vela PCP name and Address: Edwardo Sheehan MD [facility] [address] [id number] Referring provider name and address: No referring provider defined for this encounter. Chief Concern, Brief History of Present Illness, and Hospital Course Joi Marcial is a 69 y.o. female who presented to [facility] on 03/13/2025 for planned staged repair of descending thoracic abdominal aortic aneurysm. 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 Patient previously evaluated at [facility] with plans for staged repair including elephant trunk followed by endovascular repair. She presented to vascular clinic for 2nd opinion as it is closer to home with the shoulder DrKirk. CTA demonstrated maximal diameter of 6.2 cm in descending thoracic aorta. Additionally she had 70-80% stenosis of proximal right ICA and left CNC MILL PROGRAMMER high-grade stenosis. Patient denied back, chest, abdominal [...] Your Medications These medications were sent to [facility] - [place], [place] - [address] [facility] [id number] naloxone 4 mg/0.1 mL nasal spray oxyCODONE [...] soap and water daily, pat to dry. Jose/sutures will be removed at postoperative follow up in Vascular Clinic. DO NOT allow any other physician or office remove your jose/sutures. DO NOT apply any lotions, creams, ointments, [...] Surgery with any questions or concerns at [phone]. It is important that you get your [...] 03/19/2025 12:00 PM Jose C Nicholson MD [facility] 05/21/2025 9:00 AM [facility] VASCULAR [facility] 1 [facility] 05/21/2025 10:20 AM Cedrick Franz MD [facility] Pertinent Physical Exam At Time of Discharge Physical Exam Vitals reviewed. Constitutional: General: She is not in acute distress. Appearance: She is well-groomed. She is not ill-appearing. HENT: Head: Normocephalic. Right Ear: Hearing normal. Left Ear: Hearing normal. Nose: Nose normal. Mouth/Throat: Lips: Orrin. Mouth: Mucous membranes are moist. Eyes: Pupils: [...] from the original note were not included. [facility] Department of Surgery Division of Vascular [...] Regular Anticoagulation/DVT ppx: SubQ heparin Pain management: [facility] Level of care: Continue Current Level of Care I have answered and addressed all issues and concerns from the patient and nursing staff. I have notified senior resident/attending drilling contractor with any issues or concerns. Silviano Hull MD General Surgery PGY-1 Pager: [phone] * Care Plan - Jemal Fields RN [...] Care Review Outcome: Ongoing, Progressing Flowsheets (Taken 03/13/2025 183) Progress: improving Plan of Care Reviewed With: [...] Progress Note Joi Marcial 69 y.o. female [facility]: [id number] Admission: 03/12/2025 10:26 AM Primary Problem: 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) SW unable to complete initial assessment due to patient in OR, SW will continue to follow. Martina Lundberg SALES AND MERCHANDISING ASSOCIATE * Anesthesia PACU Signout - Abel Acevedo [...] Agree with above assessment and evaluation from resident/COCOA POWDER MIXER OPERATOR. * Op Note - Cedrick Franz MD - 03/13/2025 8:28 AM EDT Operative Note Date: 03/13/25 Location: [place] OR Name: Joi Marcial, : 1955, Diagnoses: Pre-op Diagnosis Asymptomatic stenosis of right carotid artery Post-op Diagnosis Asymptomatic stenosis of right carotid artery Procedure(s): Right transcarotid artery revascularization Ultrasound guided left common femoral venous access Intravascular ultrasound of common carotid and internal carotid artery Attending Surgeon(s): * Cedrick Franz - Primary Real Estate Coordinator(s): * Phyllis Jules MD - Resident - Assisting Anesthesia: General ASA: III Blood Administration: Blood Product Administration History None Estimated Blood Loss: Minimal Drains: Urethral Catheter Non-latex;Single lumen;Temperature probe 16 Fr. (Active) Implants Type Name Action Serial No. STENT TRANSCAROTID ENROUTE TAPERED 8-6X40 - [id number] Implanted Specimen: none Findings: successful shockwave balloon [...] 4x12, Salas 6x20 Stent: ENROUTE 8-6x40, lot# [id number] Indication: Joi Marcial is a 69 y.o. [...] made with a 15 blade, above the rightcollarbone between the heads of the sternocleidomastoid muscle. Bovie electric cautery was used to divide subcutaneous tissue and the platysma muscle. Dissection was further carried out between the heads of the sternocleidomastoid muscle. Internal jugular vein was mobilized laterally and the commoncarotid artery was controlled using a Dee vessel loop. Patient was then systemically heparinized to an ACT greater than 250. 6- 0 Prolene U-stitch was placed in the anterior surface of the common carotid artery. Using ultrasound guidance micropuncture needle was used to access the left common femoral vein and using Seldinger technique this was upsized to the 8- Kuwaiti venous sheath. Micropuncture needle was used to access the center of the U-stitch followed by advancement of a micro wire. The micro needle was then exchanged for a 4 Kuwaiti catheter and angiogram was performed to reveal the anatomy of the common carotid internal carotid external carotid artery. The stiff sheath introducer wire was then advanced just proximal to the carotid bifurcation and the 4 Kuwaiti sheath was exchanged for the 8 Kuwaiti arterial sheath. The sheath was sutured in place and the dilator and wire were withdrawn. Two-view angiogram was performed to confirm correct placement of the sheath and that there was no dissection present. After confirming ACT greater than 250, systolic blood pressureover 140, and heart rate over 70, flow reversal was established the with the EnRoute SLEEP LAB TECHNICIAN system. The common carotid artery was clamped [...] VQI TCAR surveillance project-National clinical trial, NCT: [id number] There were NO signs of surgical site infection (SSI) present at the time of surgery (PATOS). Complications: None; patient tolerated the procedure well. Submitted by: Phyllis Jules MD - 03/13/2025 * H&P - Silviano Hull MD - 03/13/2025 12:05 AM EDT Images from the original note were not included. [facility] Department of Surgery Division of Vascular Surgery History & Physical Note Subjective History of Present Illness: Joi Marcial is a 69 y.o. female with PMHx significant for HLD, HTN, OA, cerebral venous sinous thrombosis, former smoker (quit 2017) R carotid stenosis, and 6.2 cm descending aortic aneurysm who presented to the [facility] on 03/12/2025 for planned coronary angiography [...] (Blue Cap) 18+ 12/19/2020 Moderna COVID-19 Vaccine (Economics Professor) 12+ years 10/08/2021 Pneumococcal Conjugate PCV 13 09/19/2019 Pneumococcal Polysaccharide PPV23 07/03/2023 Zoster, Recombinant 09/19/2019 I have updated and confirmed the past medical, surgical, family and social history. Home Medications: Prior to Admission medications Medication Sig Start Date End Date Taking? Authorizing Provider ALPRAZolam (Xanax) 0.5 MG tablet Take 1 tablet by mouth 2 times a day. Yes Kalia Aburto MD aspirin 81 MG EC tablet Take 1 [...] Take 1 tablet by mouth nightly. Yes aKlia Aburto MD lisinopril-hydroCHLOROthiazide 20-25 MG tablet Take [...] Silviano Hull MD General Surgery PGY-1 Pager: [phone] [1] Past Medical History: Diagnosis Date Aneurysm [...] Plan of Care Review 03/12/20251911 by Cate Valderrama, RN Outcome: Ongoing, Progressing Flowsheets (Taken 03/12/20251911) Progress: improving Outcome Evaluation: for aneurysm repair in AM Plan of Care Reviewed With: patient 03/12/20251911 by Cate Valderrama, RN Outcome: Ongoing, Progressing * Care Plan [...] been discussed with the patient and/or their sales representative door to door. All questions answered and they agree to [...] Description 05/14/2025 12:30 PM EDT Office Visit [facility] Cardiothoracic [address], [address] [place] [id number] Jose C Nicholson MD [address] [place] [phone] 05/21/2025 9:00 AM EDT Appointment [facility] Vascular Lab [address] [place] [address] 05/21/2025 10:20 AM EDT Office Visit [facility] Comprehensive Vascular Clinic [address] [facility] 5th Floor [address] [place] [phone] Cedrick Franz MD [address] [place] [address] Scheduled Orders Name Type Priority [...] ARTERIAL Pending Discharge 03/13/2025 8:18 AM EDT CBC W/O DIFFERENTIAL Routine 03/13/2025 12:19 AM [...] - 4.5 mg/dL 03/14/2025 1:04 AM EDT [facility] Blood Venous blood specimen / Unknown Venipuncture / Unknown 03/14/2025 12:24 AM EDT 03/14/2025 12:38 AM EDT us Cedrick Franz MD LAB BLOOD ORDERABLES Final Res ult Performing Organization Address [facility] Co de Phone Number [facility] [address] [place] [address] * (ABNORMAL) Magnesium (03/14/2025 12:24 AM EDT) Magnesium, Plasma 1.8(L) 1.9 - 2.4 mg/dL 03/14/2025 1:04 AM EDT [facility] Blood Venous blood specimen / Unknown Venipuncture / Unknown 03/14/2025 12:24 AM EDT 03/14/2025 12:38 AM EDT Cedrick Franz MD LAB BLOOD ORDERABLES Final Res ult Performing Organization Address [facility]/ZIP Co de Phone Number [facility] [address] [place] [address] * (ABNORMAL) Basic metabolic panel (03/14/2025 12:24 AM EDT) Glucose, Plasma 129(H) 74 - 99 mg/dL 03/14/2025 1:04 AM EDT [facility] BUN, Plasma 16 8 - 23 mg/dL 03/14/2025 1:04 AM EDT [facility] Creatinine, Plasma 0.83 0.60 - 1.10 mg/dL 03/14/2025 1:04 AM EDT [facility] BUN/Creatinine Ratio 19 03/14/2025 1:04 AM EDT [facility] Sodium, Plasma 136 136 - 145 mmol/L 03/14/2025 1:04 AM EDT [facility] Potassium, Plasma 4.1 3.6 - 4.9 mmol/L 03/14/2025 1:04 AM EDT [facility] Chloride, Plasma 104 97 - 107 mmol/L 03/14/2025 1:04 AM EDT [facility] CO2, Plasma 22 22 - 29 mmol/L 03/14/2025 1:04 AM EDT [facility] Anion Gap 10 6 - 16 mmol/L 03/14/2025 1:04 AM EDT [facility] Total Calcium, Plasma 8.7(L) 8.9 - 10.2 mg/dL 03/14/2025 1:04 AM EDT [facility] eGFRcr 75.9 mL/min/1.7 3m*2 03/14/2025 1:04 AM EDT [facility] Comment:Reported eGFRcr in m L/min/1.73m2 is based the CKD-EPI 2020 equation that does not use a race coefficient. Blood Venous blood specimen / Unknown Venipuncture / Unknown 03/14/2025 12:24 AM EDT 03/14/2025 12:38 AM EDT us Cedrick Franz MD LAB BLOOD ORDERABLES Final Res ult [facility] [address] [place] [address] * (ABNORMAL) CBC (03/14/2025 12:24 AM EDT) WBC Count 8.64 3.70 - 10.30 10*3/uL LAB HEMATOLOGY METHOD 03/14/2025 1:05 AM EDT [facility] RBC Count 3.43(L) 3.90 - 5.20 10*6/uL LAB HEMATOLOGY METHOD 03/14/2025 1:05 AM EDT [facility] HGB 9.9(L) 11.2 - 15.7 g/dL LAB HEMATOLOGY METHOD 03/14/2025 1:05 AM EDT [facility] HCT 30.0(L) 34.0 - 45.0 % LAB HEMATOLOGY METHOD 03/14/2025 1:05 AM EDT [facility] Platelet Count 153(L) 155 - 369 10*3/uL LAB HEMATOLOGY METHOD 03/14/2025 1:05 AM EDT [facility] MCV 88 79 - 98 fL LAB HEMATOLOGY METHOD 03/14/2025 1:05 AM EDT [facility] MCH 28.9 26.0 - 32.0 pg LAB HEMATOLOGY METHOD 03/14/2025 1:05 AM EDT [facility] MCHC 33.0 30.7 - 35.5 g/dL LAB HEMATOLOGY METHOD 03/14/2025 1:05 AM EDT [facility] RDW 14.5 11.5 - 14.5 % LAB HEMATOLOGY METHOD 03/14/2025 1:05 AM EDT [facility] MPV 12.3 8.8 - 12.5 fL LAB HEMATOLOGY METHOD 03/14/2025 1:05 AM EDT [facility] nRBC 0.0 <=0.0 per 100 WBCs LAB HEMATOLOGY METHOD 03/14/2025 1:05 AM EDT [facility] Blood Venous blood specimen / Unknown Venipuncture / Unknown 03/14/2025 12:24 AM EDT 03/14/2025 12:41 AM EDT us Cedrick Franz MD LAB BLOOD ORDERABLES Final Res ult [facility] [address] [place] [address] * (ABNORMAL) Hemoglobin and hematocrit, blood (03/13/2025 10:41 PM EDT) HGB 9.8(L) 11.2 - 15.7 g/dL LAB HEMATOLOGY METHOD 03/13/2025 10:57 PM EDT [facility] HCT 29.8(L) 34.0 - 45.0 % LAB HEMATOLOGY METHOD 03/13/2025 10:57 PM EDT [facility] Blood Arterial blood specimen / Unknown Venipuncture / Unknown 03/13/2025 10:41 PM EDT 03/13/2025 10:50 PM EDT Cedrick Franz MD LAB BLOOD ORDERABLES Final Res ult Performing Organization Address [facility] [place] [address] * Shaila auris Surveillance by PCR (03/13/2025 6:09 PM EDT) Shaila auris PCR Result Not Detected Not Detected 03/14/2025 1:29 PM EDT [facility] Swab (Axilla and Groin) Non-blood Collection / Unknown 03/13/2025 6:09 PM EDT 03/13/2025 6:17 PM EDT Narrative [facility] - 03/14/2025 1:29 PM EDT This PCR assay was developed and its performance characteristics determined by [facility] as appropriate for clinical purposes. This assay has not been cleared or approved by the FDA, but is performed in a CLIA regulated laboratory that is qualified to perform high-complexity testing. Cedrick Franz MD LAB MICROBIOLOGY - GENERAL ORD ERABLES Final Result Performing Organization Address [facility] [place] [address] * Multi Drug Resistance Test (03/13/2025 6:09 PM EDT) Culture No growth at day 1 03/14/2025 8:22 PM EDT [facility] Swab (Nares and Frances Rectal) Non-blood Collection / Unknown 03/13/2025 6:09 PM EDT 03/13/2025 6:17 PM EDT Narrative [facility] - 03/14/2025 8:22 PM EDT This test was developed and its performance characteristics determined by the [facility] Clinical Microbiology Laboratory. Although the media is FDA-approved, it is not FDA-approved for all specimen types submitted. The FDA has determined that such clearance or approval is not necessary. This test is used for surveillance purposes. It should not be regarded as investigational or for research. The [facility] Clinical Microbiology Laboratory is certified under the Clinical Laboratory Improvement Amendments of 1988 (CLIA-88) as qualified to perform high complexity clinical laboratory testing. us Cedrick Franz MD LAB MICROBIOLOGY - GENERAL ORD ERABLES Final Result Performing Organization Address City/[facility]/ZIP Co de Phone Number [facility] [address] [place] [address] * FL Less than 1 Hour Intraoperative (03/13/2025 2:53 PM EDT) Narrative IMAG[facility] - 03/13/2025 2:54 PM EDT Images were obtained for surgical purposes. See Cedrick Franz's surgical note in the patient's chart for the findings. Result [facility] Cedrick Franz MD IMG FLUOROSCOPY PROCEDURES Fin al Result Performing Organization Address [facility] Co de Phone Number IMAGING * POCT ACT (03/13/2025 8:39 AM EDT) ACT+ (HIGH RANGE) 266 68 - 600 Seconds 03/13/2025 12:23 PM EDT [facility] Underwriting Support Specialist ID Arturo Chandra 03/13/2025 12:23 PM EDT [facility] ACT Device ID [id number] 03/13/2025 12:23 PM EDT [facility] Comment 03/13/2025 12:23 PM EDT [facility] Comment: ACT performed by staff at point [...] 8:39 AM EDT 03/13/2025 12:23 PM EDT Result [facility] Cedrick Franz MD LAB POINT OF CARE TE ST DOCKED DEVICE UNSOLICITED RESULTS Final Result Performing Organization Address [facility] Co de Phone Number [facility] [address] [place], [place] [id number] [place] [address] LAB [address] [place] [address] * (ABNORMAL) Blood gas panel, arterial (03/13/2025 8:18 AM EDT) pH, Arterial 7.45(H) 7.31 - 7.42 LAB HEMATOLOGY METHOD 03/13/2025 8:46 AM EDT [facility] pCO2, Arterial 35 35 - 48 mmHg LAB HEMATOLOGY METHOD 03/13/2025 8:46 AM EDT [facility] pO2, Arterial 272 >70 mmHg LAB HEMATOLOGY METHOD 03/13/2025 8:46 AM EDT [facility] SO2, Measured, Arterial 98 94 - 98 % LAB HEMATOLOGY METHOD 03/13/2025 8:46 AM EDT [facility] Base Excess, Arterial 0.1 -2.0 - 3.0 mmol/L LAB HEMATOLOGY METHOD 03/13/2025 8:46 AM EDT [facility] Bicarbonate, Calculated, Arterial 24 22 - 26 mmol/L LAB HEMATOLOGY METHOD 03/13/2025 8:46 AM EDT [facility] Hematocrit, Whole Blood 33.2(L) 34.0 - 45.0 % LAB HEMATOLOGY METHOD 03/13/2025 8:46 AM EDT [facility] Sodium, Whole Blood 140 136 - 145 mmol/L LAB HEMATOLOGY METHOD 03/13/2025 8:46 AM EDT [facility] Potassium, Whole Blood 3.2(L) 3.6 - 4.9 mmol/L LAB HEMATOLOGY METHOD 03/13/2025 8:46 AM EDT [facility] Chloride, Whole Blood 108(H) 97 - 107 mmol/L LAB HEMATOLOGY METHOD 03/13/2025 8:46 AM EDT [facility] Glucose, Whole Blood 103(H) 74 - 99 mg/dL LAB HEMATOLOGY METHOD 03/13/2025 8:46 AM EDT [facility] Ionized Calcium, Whole Blood 4.4(L) 4.6 - 5.1 mg/dL LAB HEMATOLOGY METHOD 03/13/2025 8:46 AM EDT [facility] Lactate, Arterial, Whole Blood 0.8 0.5 - 1.6 mmol/L LAB HEMATOLOGY METHOD 03/13/2025 8:46 AM EDT [facility] Blood Arterial blood specimen / Unknown Arterial Puncture / Unknown 03/13/2025 8:18 AM EDT 03/13/2025 8:43 AM EDT Lenin Farmer CRNA LAB BLOOD ORDERABLES Barbara l Result [facility] [address] [place] [address] * Type and screen (03/13/2025 8:18 AM [...] ORDER AMBROSE Final Result Performing Organization Address [facility] Co de Phone Number BLOOD BANK [address] [place] [address], * (ABNORMAL) Basic metabolic panel (03/13/2025 12:19 AM EDT) Glucose, Plasma 115(H) 74 - 99 mg/dL 03/13/2025 12:58 AM EDT [facility] BUN, Plasma 20 8 - 23 mg/dL 03/13/2025 12:58 AM EDT [facility] Creatinine, Plasma 0.91 0.60 - 1.10 mg/dL 03/13/2025 12:58 AM EDT [facility] BUN/Creatinine Ratio 22 03/13/2025 12:58 AM EDT [facility] Sodium, Plasma 138 136 - 145 mmol/L 03/13/2025 12:58 AM EDT [facility] Potassium, Plasma 3.7 3.6 - 4.9 mmol/L 03/13/2025 12:58 AM EDT [facility] Chloride, Plasma 102 97 - 107 mmol/L 03/13/2025 12:58 AM EDT [facility] CO2, Plasma 23 22 - 29 mmol/L 03/13/2025 12:58 AM EDT [facility] Anion Gap 13 6 - 16 mmol/L 03/13/2025 12:58 AM EDT [facility] Total Calcium, Plasma 9.3 8.9 - 10.2 mg/dL 03/13/2025 12:58 AM EDT [facility] LAB eGFRcr 68.0 mL/min/1.7 3m*2 03/13/2025 12:58 AM EDT [facility] Comment:Reported eGFRcr in m L/min/1.73m2 is based the CKD-EPI 2020 equation that does not use a race coefficient. Blood Venous blood specimen / Unknown Venipuncture / Unknown 03/13/2025 12:19 AM EDT 03/13/2025 12:26 AM EDT Dion Moeller MD LAB BLOOD ORDERABLES Final Result [facility] [address] [place] [address] * (ABNORMAL) CBC (03/13/2025 12:19 AM EDT) WBC Count 11.75(H) 3.70 - 10.30 10*3/uL LAB HEMATOLOGY METHOD 03/13/2025 12:48 AM EDT [facility] RBC Count 4.48 3.90 - 5.20 10*6/uL LAB HEMATOLOGY METHOD 03/13/2025 12:48 AM EDT [facility] HGB 12.7 11.2 - 15.7 g/dL LAB HEMATOLOGY METHOD 03/13/2025 12:48 AM EDT [facility] HCT 39.2 34.0 - 45.0 % LAB HEMATOLOGY METHOD 03/13/2025 12:48 AM EDT [facility] Platelet Count 223 155 - 369 10*3/uL LAB HEMATOLOGY METHOD 03/13/2025 12:48 AM EDT [facility] MCV 88 79 - 98 fL LAB HEMATOLOGY METHOD 03/13/2025 12:48 AM EDT [facility] MCH 28.3 26.0 - 32.0 pg LAB HEMATOLOGY METHOD 03/13/2025 12:48 AM EDT [facility] MCHC 32.4 30.7 - 35.5 g/dL LAB HEMATOLOGY METHOD 03/13/2025 12:48 AM EDT [facility] RDW 14.1 11.5 - 14.5 % LAB HEMATOLOGY METHOD 03/13/2025 12:48 AM EDT [facility] MPV 11.9 8.8 - 12.5 fL LAB HEMATOLOGY METHOD 03/13/2025 12:48 AM EDT [facility] nRBC 0.0 <=0.0 per 100 WBCs LAB HEMATOLOGY METHOD 03/13/2025 12:48 AM EDT [facility] Blood Venous blood specimen / Unknown Venipuncture / Unknown 03/13/2025 12:19 AM EDT 03/13/2025 12:29 AM EDT Dion Moeller MD LAB BLOOD ORDERABLES Final Result Performing Organization Address City/State/[facility] Co de Phone Number [facility] [address] [place] [address] * LEFT HEART CATHETERIZATION, CORONARY ANGIOGRAPHY (03/12/2025 [...] The patient was transferred back to the paint laboratory technician holding area in good condition. Coronary Findings [...] AO: 99/50 (48) mmHg us Jose C Nihcolson MD CV CARDIAC CATH PROCEDURES Barbara wynn Result * POCT creatinine (03/12/2025 11:04 AM EDT) [facility] Creatinine, Point of Care 1.1 0.6 - 1.1 mg/dL 03/12/2025 11:08 AM EDT [facility] POCT eGFR 54 mL/min/1. 73m*2 03/12/2025 11:08 AM EDT [facility] Underwriting Support Specialist ID Paresh Khan 03/12/2025 11:08 AM EDT [facility] Device ID [id number] 03/12/2025 11:08 AM EDT [facility] Comment 03/12/2025 11:08 AM EDT [facility] Comment:Testing performed on i-STAT at the point of care. Reported eGFRcr in mL/min/1.73m2 is based the CKD-EPI 2020 equation that does not use a race coefficient. Blood Venous blood specimen / Unknown 03/12/2025 11:04 AM EDT 03/12/2025 11:08 AM EDT us Dion Moeller MD LAB POINT OF CARE T EST DOCKED DEVICE UNSOLICITED RESULTS Final Result [facility] [address] [facility] [address] [place] [address] * Basic metabolic panel (03/12/2025 10:55 AM EDT) Glucose, Plasma 80 74 - 99 mg/dL 03/12/2025 11:40 AM EDT [facility] BUN, Plasma 22 8 - 23 mg/dL 03/12/2025 11:40 AM EDT [facility] Creatinine, Plasma 0.89 0.60 - 1.10 mg/dL 03/12/2025 11:40 AM EDT [facility] BUN/Creatinine Ratio 03/12/2025 11:40 AM EDT [facility] Sodium, Plasma 138 136 - 145 mmol/L 03/12/2025 11:40 AM EDT [facility] Potassium, Plasma 4.0 3.6 - 4.9 mmol/L 03/12/2025 11:40 AM EDT [facility] Chloride, Plasma 101 97 - 107 mmol/L 03/12/2025 11:40 AM EDT [facility] CO2, Plasma 25 22 - 29 mmol/L 03/12/2025 11:40 AM EDT [facility] Anion Gap 12 6 - 16 mmol/L 03/12/2025 11:40 AM EDT [facility] Total Calcium, Plasma 9.5 8.9 - 10.2 mg/dL 03/12/2025 11:40 AM EDT [facility] eGFRcr 69.8 mL/min/1.7 3m*2 03/12/2025 11:40 AM EDT [facility] Comment:Reported eGFRcr in m L/min/1.73m2 is based the CKD-EPI 2020 equation that does not use a race coefficient. Blood Venous blood specimen / Unknown Venipuncture / Unknown 03/12/2025 10:55 AM EDT 03/12/2025 11:09 AM EDT us Dion Moeller MD LAB BLOOD ORDERABLES Final Result [facility] [address] [place] [address] * Hemogram (CBC) (03/12/2025 10:55 AM EDT) WBC Count 6.87 3.70 - 10.30 10*3/uL LAB HEMATOLOGY METHOD 03/12/2025 11:24 AM EDT [facility] RBC Count 4.16 3.90 - 5.20 10*6/uL LAB HEMATOLOGY METHOD 03/12/2025 11:24 AM EDT [facility] HGB 11.7 11.2 - 15.7 g/dL LAB HEMATOLOGY METHOD 03/12/2025 11:24 AM EDT [facility] HCT 36.8 34.0 - 45.0 % LAB HEMATOLOGY METHOD 03/12/2025 11:24 AM EDT [facility] Platelet Count 208 155 - 369 10*3/uL LAB HEMATOLOGY METHOD 03/12/2025 11:24 AM EDT [facility] MCV 89 79 - 98 fL LAB HEMATOLOGY METHOD 03/12/2025 11:24 AM EDT [facility] MCH 28.1 26.0 - 32.0 pg LAB HEMATOLOGY METHOD 03/12/2025 11:24 AM EDT [facility] MCHC 31.8 30.7 - 35.5 g/dL LAB HEMATOLOGY METHOD 03/12/2025 11:24 AM EDT [facility] RDW 14.3 11.5 - 14.5 % LAB HEMATOLOGY METHOD 03/12/2025 11:24 AM EDT [facility] MPV 12.1 8.8 - 12.5 fL LAB HEMATOLOGY METHOD 03/12/2025 11:24 AM EDT [facility] nRBC 0.0 <=0.0 per 100 WBCs LAB HEMATOLOGY METHOD 03/12/2025 11:24 AM EDT [facility] Blood Venous blood specimen / Unknown Venipuncture / Unknown 03/12/2025 10:55 AM EDT 03/12/2025 11:13 AM EDT us Dion Moeller MD LAB BLOOD ORDERABLES Final Result [facility] [address] [place] [address] documented in this encounter Visit Diagnoses Diagnosis [...] Given 03/14/2025 9:22 AM EDT 81 mg clopidogrel (Plavix) tablet 75 mg 75 mg, Oral, Daily, First dose on Mon03/14/25 at 0900, Until Discontinued, Routine, Recovery(Phase II-Outpatient)/On Unit(Inpatient) Given 03/14/2025 9:22 AM EDT 75 mg fentaNYL (Sublimaze) injection As needed, Starting on Mon03/12/25 at 1237, Until Mon03/12/25 at 1338, Routine, Intraprocedure Given 03/12/2025 1:20 PM EDT 25 mcg Given 03/12/2025 1:00 PM EDT 25 mcg Given 03/12/2025 12:42 PM EDT 25 mcg heparin (porcine) injection 5,000 Units 5,000 Units, Subcutaneous, Every 8 hours scheduled, First dose on Mon03/13/25 at 1400, Until Discontinued, Routine, Recovery(Phase II-Outpatient)/On Unit(Inpatient) Given 03/14/2025 6:46 AM EDT 5,000 Units Left Lower Abdomen Given 03/13/2025 9:15 PM EDT 5,000 Units R ight Upper Abdomen Given 03/13/2025 1:07 PM EDT 5,000 Units R ight Lower Abdomen heparin (porcine) injection As needed, Starting on Mon03/12/25 at 1241, Until Mon03/12/25 at 1338, Routine, Intraprocedure Given 03/12/2025 12:41 PM EDT 4,000 Units iodixanol (VISIPaque) 320 MG/ML injection As needed, Starting on Mon03/12/25 at 1331, Until Mon03/12/25 at 1338, Routine, Intraprocedure Given 03/12/2025 1:31 PM EDT 60 mL lidocaine (Xylocaine) 2 % injection As needed, Starting on Mon03/12/25 at 1240, Until Mon03/12/25 at 1338, Routine, Intraprocedure Given 03/12/2025 12:39 PM EDT 3 mL midazolam (Versed) injection As needed, Starting on Mon03/12/25 at 1237, Until Mon03/12/25 at 1338, Routine, Intraprocedure Given 03/12/2025 1:20 PM EDT 1 mg Given 03/12/2025 1:00 PM EDT 1 mg Given 03/12/2025 12:42 PM EDT 1 mg mupirocin (Bactroban) 2 % ointment 1 Application Each Nostril, 2 times daily, 10 doses, First dose on Mon03/13/25 at 2100, Last dose on Mon03/18/25 at 0900, Routine Given 03/14/2025 9:22 AM EDT 1 Application Given 03/13/2025 9:15 PM EDT 1 Application nitroglycerin (Tridil) in D5W IV solution 100 mcg/mL As needed, Starting on Mon03/12/25 at 1241, Until Mon03/12/25 at 1338, Routine, Intraprocedure Given 03/12/2025 12:41 PM EDT 200 mcg ondansetron (Zofran) 4 MG/5ML solution 4 mg [...] 1440, Routine, Recovery(Phase II-Outpatient)/On Unit(Inpatient), nausea, vomiting PARoxetine (Paxil) tablet 20 mg 20 mg, Oral, Nightly, First dose on Mon03/12/25 at 2115, Until Discontinued, Routine Given 03/13/2025 9:15 PM EDT 20 mg Given 03/12/2025 9:19 PM EDT 20 mg sodium chloride 0.9 % flush 10 mL 10 mL, Intravenous, Every 12 hours, First dose on Mon03/12/25 at 1130, Until Discontinued, Routine, On Unit - Preprocedure Given 03/13/2025 11: 06 PM EDT 10 mL sodium chloride 0.9 % flush 10 mL 10 mL, Intravenous, As needed, Starting on Mon03/12/25 at 1036, Until Mon03/14/25 at 1440, Routine, On Unit - Preprocedure, line care documented in this encounter Active and Recently [...] 0900, Until Discontinued, Routine, Recovery(Phase II-Outpatient)/On Unit(Inpatient) 0922 (Given - Provider: Lon Marshall RN) bisoprolol (Zebeta) tablet 10 mg (CANCELED) 10 mg, Oral, Daily, First dose on Mon03/12/25 at 2200, Until Discontinued, Routine 2236 (Given - Provider: Cate Valderrama RN) 0546 (MAR Hold - Provider: Automatic Transfer Provider - Reason: Patient in procedure)0900 (Dose Auto Held - Provider: Automatic Transfer Provider)1114 (MAR Unhold - Provider: Lynette Green)1157 (Given - Provider: Robina Neal, ABHILASH) clopidogrel (Plavix) tablet 75 mg 75 mg, Oral, Daily, First dose on Mon03/14/25 at 0900, Until Discontinued, Routine, Recovery(Phase II-Outpatient)/On Unit(Inpatient) 0922 (Given - Provider: Lon Marshall, ABHILASH) heparin (porcine) injection 5,000 Units 5,000 Units, Subcutaneous, Every 8 hours scheduled, First dose on Mon03/13/25 at 1400, Until Discontinued, Routine, Recovery(Phase II-Outpatient)/On Unit(Inpatient) 1307 (Given - Provider: Lynette Green)2115 (Given - Provider: Jemal Fields, ABHILASH) 0646 (Given - Provider: Jemal Fields, ABHILASH)1400 (Canceled Entry - Provider: Automatic Discharge Provider - Comment: Automatically canceled at discontinue of medication order) lactated Ringer's bolus 500 mL (COMPLETED) 500 mL, Intravenous, Once, 1 dose, On Mon03/13/25 at 2300, Administer over 2 Hours, Routine 221 (New Bag - Provider: Jemal Fields, ABHILASH) lisinopril tablet 20 mg (CANCELED) 20 mg, Oral, Daily, First dose on Mon03/12/25 at 2200, Until Discontinued, Routine 2118 (Given - Provider: Cate Valderrama, ABIHLASH) 0546 (NOV Hold - Provider: Automatic Transfer Provider - Reason: Patient in procedure)0900 (Dose Auto Held - Provider: Automatic Transfer Provider)1114 ([facility] Unhold - Provider: Lynette Green)1124 (Given - Provider: Lynette Green) magnesium sulfate IVPB 2 g (COMPLETED) 2 g, Intravenous, Once, 1 dose, On Mon03/14/25 at 0715, Routine 0646 (New Bag - Provider: Jemal Fields RN)0700 (Rate/Dose Verify - Provider: Alicja Garsia)0800 (Rate/Dose Verify - Provider: Alicja Garsia)1100 (Rate/Dose Verify - Provider: Alicja Garsia)1151 (Stopped - Provider: Alicja Garsia) mupirocin (Bactroban) 2 % ointment 1 Application Each Nostril, 2 times daily, 10 doses, First dose on Mon03/13/25 at 2100, Last dose on Mon03/18/25 at 0900, Routine 2114 (Given - Provider: Jemal Fields, RN) 0922 (Given - Provider: Lon Marshall, ABHILASH) PARoxetine (Paxil) tablet 20 mg 20 mg, Oral, Nightly, First dose on Mon03/12/25 at 211, Until Discontinued, Routine 2118 (Given - Provider: Cate Valderrama, RN) 0546 (NOV Hold - Provider: Automatic [...] Auto Held - Provider: Automatic Transfer Provider)170 (NOV Unhold - Provider: Automatic Transfer Provider)2306 (Given - Provider: Jemal Fields, ABHILASH) 1202 (Canceled Entry - Provider: Lon Marshall [...] Transfer Provider - Reason: Patient in procedure)1708 ([facility] Unhold - Provider: Automatic Transfer Provider) ALPRAZolam (Xanax) tablet 0.5 mg 0.5 mg, Oral, Nightly PRN, Starting on Mon03/12/25 at 2100, Until Mon03/14/25 at 1440, Routine, anxiety 2118 (Given - Provider: Cate Valderrama RN) 0546 (NOV Hold - Provider: Automatic Transfer Provider - Reason: Patient in procedure)1708 ([facility] Unhold - Provider: Automatic Transfer Provider)2114 (Given - Provider: Jemal Fields RN) ceFAZolin (Ancef) 1 g in sodium chloride [...] Provider: Quyen Ortiz RN)1242 (Given - Provider: uQyen Ortiz RN)1300 (Given - Provider: Quyen Ortiz RN)1320 (Given - Provider: Quyen Ortiz RN) heparin (porcine) 10,000 Units in sodium chloride 0.9 % 1,010 mL OR irrigation (COMPLETED) Continuous PRN, Starting on Marian 03/13/25 at 0810, Until Marian 03/13/25 at 0939, Routine 0810 (New Bag - Provider: Cedrick Franz MD - Comment: placed on surgical feild) heparin (porcine) injection (CANCELED) As needed, Starting on Mon03/12/25 at 1241, Until Mon03/12/25 at 1338, Routine, Intraprocedure 1241 (Given - Provider: Cortes Segura, DO - Comment: via sheath) hydrALAZINE (Apresoline) injection 10 mg 10 mg, Intravenous, Every 30 min PRN, Starting on Marian 03/13/25 at 0950, [...] On Unit - Preprocedure, line care 0546 (NOV Hold - Provider: Automatic Transfer Provider - Reason: Patient in procedure)1709 ([facility] Unhold - Provider: Automatic Transfer Provider) Linked [...] 2: Insert peripheral IV (CANCELED) Once, On Marian 03/13/25 at 0610, For 1 occurrence, Holding - [...] Starting on Marian 03/13/25 at 0947, Until Marian 03/13/25 at 1709, Routine, Recovery (Phase I only), pain score of 3-5 out of 10 Or oxyCODONE (Roxicodone) immediate release tablet 10 mg (CANCELED) 10 mg, Oral, Once as needed, 2 doses, Starting on Marian 03/13/25 at 0947, Until Marian 03/13/25 at 1709, Routine, Recovery (Phase I only), pain score of 6-8 out of 10 documented in this encounter Additional Health Concerns Assessment Noted Time A fall risk assessment has been complete d for the patient 02/26/2025 9:04 AM EDT A Body Mass Index follow-up plan has been documented for the patient 03/14/2025 11:50 AM EDT documented as of this encounter Care Teams Wireless Development Manager Relationship Specialty Start Date End Date Edwardo Sheehan MD [address] [place] [address] PCP - General 12/19/22 Jose R Umana MD [address] [facility] [address] [place], [place] [id number] Referring Physician Cardiology 01/23/25 Kevin Mancera MD [address] [facility] [address] [place] [address] Referring Physician 01/31/25 documented as of this encounter
--- OUTSIDE RECORDS SUMMARY | 2025-03-13 07:28 | XMS_ITS | Encounter Summary ---
Author Organization [facility] Address [address] 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] Asymptomatic stenosis of right carotid artery [I65.21] Procedures AK LEFT HEART CATH INJECT VETRICULOGRAPHY, IMAGE SUPERVISE/INTERP Left heart catheterization Dion Moeller MD [address] [place] [address] Phone: tel: fax: Card[facility] [employer] [address] [place] [address] Phone: tel: Referral ID Status Reason Start Date Expiration Date Visits Re quested Visits Authorized [id number] 1 1 Encounter Details Date Type Department Care Team (Late st Contact Info) Description 03/13/2025 7:28 AM EDT Anesthesia Event [facility] OPERATING ROOM [address] [place] [address] Jaime De Paz DO [address] [place] [address] Lenin Farmer CRNA [address] [place] [address] Anesthesia Record Procedure Summary Procedure Name Responsible Anesthesiologist Anesthesia Start Time Anesthesia Stop Time right TCAR; shockwave (Right) Jaime De Paz DO 03/13/25 0728 03/13/25 0946 Events Date Time Event Comment 03/13/2025 0722 0728 An Start The patient was reevaluated immediately before sedation and remains eligible for anesthesia plan. 0730 In Room 0730 An Start Data 0743 An Induction The patient was reevaluated immediately before moderate or deep sedation use and before anesthesia induction. 0745 An Intubation 0815 Anesthesia Ready 0828 Proc Start 0847 Isauro ACT 266 0900 Isauro Carotid clamped 0909 Isauro Clamp off 0927 Proc Fin 0932 An Extubation 0939 an stop data 0939 Out of Room 0946 Handoff to Receiving I compl eted my handoff to the receiving clinician during which we: 1. Identified the patient 2. Identified the responsible provider 3. Reviewed the pertinent medical history 4. Discussed the surgical course 5. Reviewed intra-op anesthesia management and issues during anesthesia 6. Set expectations for post-procedure period 7. Allowed opportunity for questions and acknowledgement of understanding. 0946 An Stop Meds Name Total fentaNYL (Sublimaze) injection 50 mcg/mL 100 mcg midazolam (Versed) injection 1 mg/mL 2 m g propofol (Diprivan) injection 10 mg/mL 2 00 mg ondansetron (Zofran) injection 4 mg dexamethasone (Decadron) injection 4 mg/ mL 8 mg rocuronium (ZeMuron) injection 10 mg/mL 50 mg sugammadex (Bridion) injection 100 mg/mL 200 mg ePHEDrine injection prefilled syringe 5 mg/mL 10 mg norepinephrine in 0.9% NaCl infusion 32 mcg/mL 0.51 mg heparin injection 1,000 units/mL 8,633.3 3 Units protamine injection 40 mg lidocaine PF (Xylocaine-MPF) 2% 100 mg ceFAZolin (Ancef) vial 1 g 2 g vasopressin (Vasostrict) injection 20 Un its/mL 1.5 Units glycopyrrolate (Robinul) injection 0.2 m g/mL 0.5 mg lactated Ringer's infusion 400 mL sodium chloride 0.9 % infusion 1,100 mL * Agents Name O2 * Blood No blood administrations on file. Lines, Drains, and Airways Type Details Placement Removal Wound 03/13/25; 0828; N; Y es; Surgical; Neck; Right 03/13/25 0828 by Jeri Brown RN Wound 03/13/25; 0921; N; Y es; Surgical; Catheter Ent; Groin; Left 03/13/25 0921 by Paresh Lopez RN Peripheral IV Placement Date: 02/17 02/09; Placement Time: 1045; Catheter Size: 20 G; Orientation: Anterior, Left, Proximal; Location: Forearm; Site Prep: Alcohol; Inserted by: Paresh Khan; Insertion Attempts: 1; Patient Tolerance: Tolerated well; Removal Date: 03/14/25; Removal Time: 0918; Removal Reason: Leaking 03/12/25 1045 by Paresh Khan RN 03/14/25 0918 by Lon Marshall RN Peripheral IV Placement Date: 02/17 03/12; Placement Time: (placed in OR); Catheter Size: 16 G; Orientation: Left, Posterior; Location: Hand; Removal Date: 03/14/25; Removal Time: 1200; Removal Reason: Discharge 03/13/25 0000 by Lynette Green T 03/14/25 1200 by Lon Marshall RN ETT Placement Date: 02/17 03/12; Placement Time: 0745 (created via procedure documentation); Mask Ventilation: 1; Technique: Direct laryngoscopy; Type: ETT - single; Single Lumen Tube Size: 7 mm; Cuffed: Yes; Laryngoscope: Charly; Blade Size: 4; Location: Oral; Grade View: Grade I; Insertion Attempts: 1; Placement Verification: Auscultation, Capnometry; Placed by: MARITZA; Removal Date: 03/13/25; Removal Time: 0939 03/13/25 0745 by Lenin Farmer CRNA 03/13/25 0939 by Lenin Farmer CRNA Urethral Catheter Placement Date: 02/17 03/12; Placement Time: 0750; Inserted by: Jeri Brown RN; Type: Non-latex, Single lumen, Temperature probe; Size: 16 Fr.; Balloon Size: 10 mL; Urine Returned: Yes; Removal Date: 03/13/25; Removal Time: 211; Removal Reason: Per order 03/13/25 0750 by Jeri Brown RN 03/13/252109 by Jemal Fields RN Arterial Line Placement Date: 02/17 03/12; Placement Time: 08 (created via procedure documentation); Size: 20 G; Orientation: Right; Location: Radial; Inserted by: Anesthesiologist; Securement: Taped; Patient Tolerance: Tolerated well; Removal Date: 03/14/25; Removal Time: 113; Removal Reason: Discharge 03/13/25 0800 by Lenin Farmer CRNA 03/14/25 1130 by Lon Marshall RN documented in this encounter Social History Tobacco Use Types Packs/Day Years Used Date Smoking Tobacco: Former Cigarettes Passive Smoke Exposure: Past Comments:Quit smoking 2017 s moked 1ppd for 40 years Alcohol Use Standard Drinks/Week Comments Not Currently 0 (1 standard drink = 0.6 oz pur e alcohol) Humiliation, Afraid, Rape, and Kick questionnair e [...] declined 03/14/2025 How often do you attend zoroastrianism or presybeterian serv ices? Patient declined 03/14/2025 Do you belong to any clubs o r organizations such as zoroastrianism groups, unions, fraternal or athletic groups, or [...] drinks on one occasion? Patient declined 03/14/2025 [facility] - Occupational Stress Questionnaire Answer [...] or rent on time? Patient declined 03/14/20 25 Number of Times Moved in the Last [...] as of this encounter Miscellaneous Notes * Anesthesia Postprocedure Evaluation - Lenin Farmer CRNA - 03/13/2025 9:46 AM EDT Patient: Joi Marcial Anesthesia Type: general Vitals Value Taken Time BP 95/40 03/13/25 09:42 Temp 36.5 03/13/25 09:46 Pulse 64 03/13/25 09:45 Resp 17 03/13/25 09:45 SpO2 72 % 03/13/25 09:45 Vitals shown include unfiled device data. Anesthesia Post Evaluation Patient location during evaluation: PACU Patient participation: complete - patient participated Level of consciousness: awake Pain management: adequate (pain score 0-3) Airway patency: natural airway Cardiovascular status: acceptable and hemodynamically stable Respiratory status: acceptable and blow-by oxygen Hydration status: acceptable Nausea/Vomiting: No No notable events documented. * Anesthesia Procedure Notes - Lenin Farmer CRNA - 03/13/2025 8:29 AM EDT Associated Order(s): Airway Airway Date/Time: 03/13/2025 7:45 AM Reason: elective Airway not difficult General Information and Staff Patient location during procedure: OR Anesthesiologist: Jaime De Paz DO PLASTIC SURGERY ASSISTANT: Lenin Farmer CRNA Performed: MARITZA Patient Condition Indications for airway management: anesthesia Final Airway Details Final airway type: endotracheal airway Successful airway: ETT Cuffed: yes Successful intubation technique: direct laryngoscopy Adjuncts used in placement: intubating stylet Endotracheal tube insertion site: oral Blade: Charly Blade size: #4 ETT size (mm): 7.0 Cormack-Lehane Classification: grade I - full view of glottis Placement verified by: chest auscultation and capnometry Cuff volume (mL): 7 Measured from: lips ETT to lips (cm): 21 * Anesthesia Procedure Notes - Lenin Farmer CRNA - 03/13/2025 8:17 AM EDT Associated Order(s): Arterial Line Arterial Line: Date/Time: 03/13/2025 8:00 AM An arterial line was placed. Procedure performed using surface landmarks in the OR for the following indication(s): blood sampling needed. A 20 gauge (size), 1 and 3/4 inch (length), Angiocath (type) catheter was placed into the Right radial artery and secured by tape. Seldinger technique used Staffing Performed: Anesthesiologist Anesthesiologist: Jaime De Paz DO PLASTIC SURGERY ASSISTANT: Lenin Farmer CRNA * Anesthesia Preprocedure Evaluation - Jaime De Paz DO - 03/13/2025 7:19 AM EDT Images from the original note were not included. No anesthesia staff entered. Patient: Joi Marcial is a 69 y.o. female with body mass index is 25.55 kg/m??. 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 MEDICATIONS Outpatient Current Outpatient Medications Medication Instructions ALPRAZolam (XANAX) [...] VITAMIN D, ERGOCALCIFEROL, PO Take by mouth. Scheduled Current Scheduled Medications[3] PRNs Current PRN Medications[4] SURGICAL HX: Surgical History[5] SOCIAL HX: Social History[6] OBJECTIVE DATA LABS Lab Results Component Value Date WBC 11.75 (H) 03/13/2025 HGB 12.7 03/13/2025 HCT 39.2 03/13/2025 MCV 88 03/13/2025 PLT 223 03/13/2025 Lab Results Component Value Date CALCIUM 9.3 03/13/2025 BUN 20 03/13/2025 CREATININE 0.91 03/13/2025 BCR 22 03/13/2025 NA 138 03/13/2025 K 3.7 03/13/2025 CL 102 03/13/2025 CO2 23 03/13/2025 Type and Screen No results found for: ABO No results found for: HGBA1C Lab Results Component Value Date GLUCOSE 115 (H) 03/13/2025 ABG No results found for: PHART , OBU2GNI , PO2ART , SO2ART , BEART , GOZ9LKL , HCTART , SODIUMART , POTASSIUMART , POCTCL , POCGLU , IONCALART , LACTATE No results found for: PH , PCO2 , PO2 , B3HIALAN , BASEEXC , HCTSYR , KSYR , CLSYR , GLUSYR , CAION , LACTATE ECHO No echocardiogram results found for the past 12 months PFTs FEV1 PRE (L) Date/Time Value 03/10/2025 1529 2.59 FEV1 PRED (no units) Date/Time Value 03/10/2025 1529 2.33 ZOY2NFL (L) Date/Time Value 03/10/2025 1529 3.11 FVC PRED (no units) Date/Time Value 03/10/2025 1529 3.02 BP Readings from Last 5 Encounters: 03/13/25 116/66 02/26/25 (!) 157/80 02/24/25 (!) 154/84 01/30/25 (!) 144/73 01/09/23 (!) 170/79 Physical Exam Airway Mallampati: I Mouth opening: normal TM distance: >3 FB Neck ROM: full Cardiovascular Rhythm: regular Rate: bradycardia Dental (+) partials Pulmonary Breath sounds clear to auscultation Neurological unable to assess Skin Musculoskeletal Extremities Anesthesia Plan ASA 3 Plan was reviewed with: PLASTIC SURGERY ASSISTANT Anesthesia technique(s) discussed with the patient/family: general Anesthesia plan agreed upon was: general Anesthetic plan and risks discussed with patient. Use of blood products discussed with patient who consented to blood products. ROS Anesthesia: Date of last anesthetic: Hx of anesthesia w/o complications history of previous anesthesia. Cardiovascular: Patient's ECG reviewed. hypertension: is well controlled. Exercise tolerance is walks less than 50ft. Cardio additional comments: Limited mobility d/t OA. Thoracic aneurysm 6.2cm, right carotid narrowing. Respiratory: Negative respiratory ROS. Respiratory ROS additional comments: Quit smoking 2018 HEENT: chipped teeth and missing teeth. Neurological: a cerebrovascular accident with no residual symptoms. Neuro additional comments: Sinus venous thrombosis 2022 Gastrointestinal: Negative GI ROS. [1] No Known Allergies [2] Past Medical History: Diagnosis Date Aneurysm ([facility]) 2024 Hyperlipidemia Hypertension 1989 Obesity [3] [Transfer Hold] aspirin, 81 mg, Oral, Daily [Transfer Hold] bisoprolol, 10 mg, Oral, Daily ceFAZolin, 2 g, Intravenous, Once [Transfer Hold] clopidogrel, 75 mg, Oral, Daily [Transfer Hold] lisinopril, 20 mg, Oral, Daily [Transfer Hold] PARoxetine, 20 mg, Oral, Nightly Insert peripheral IV, , , Once AND Saline lock IV, , , Once AND sodium chloride, 10 mL, Intravenous, q12h AND sodium chloride, 10 mL, Intravenous, PRN Insert peripheral IV, , , Once AND Saline lock IV, , , Once AND [Transfer Hold] sodium chloride, 10 mL, Intravenous, q12h AND [Transfer Hold] sodium chloride, 10 mL, Intravenous, PRN [4] PRN medications: [Transfer Hold] acetaminophen, [Transfer Hold] ALPRAZolam, Insert peripheral IV AND Saline lock IV AND [Transfer Hold] sodium chloride AND [Transfer Hold] sodium chloride, Insert peripheral IV AND Saline lock IV AND sodium chloride AND sodium chloride [5] Past Surgical History: Procedure Laterality Date BACK SURGERY CHOLECYSTECTOMY 1972 FOOT SURGERY HYSTERECTOMY TOTAL HIP ARTHROPLASTY Left [6] Social History Tobacco Use Smoking status: Former Types: Cigarettes Passive exposure: Past Tobacco comments: Quit smoking 2018 smoked 1ppd for 40 years Vaping Use Vaping status: Never Used Substance Use Topics Alcohol use: Not Currently Drug use: Yes Types: Marijuana documented in this encounter Plan of Treatment Upcoming Encounters Date Type Department Care Team (Late st Contact Info) Description 05/14/2025 12:30 PM EDT Office Visit [facility] Cardiothoracic [address], [address] [place] [address] Jose C Nicholson MD [address] [facility] [address] [place] [address] 05/21/2025 9:00 AM EDT Appointment [facility] Vascular Lab [address] [place] [address] 05/21/2025 10:20 AM EDT Office Visit [facility] Comprehensive V[facility] Clinic [address] [place] [address] Cedrick Franz MD [address] [facility] [address] [place] [address] documented as of this encounter Procedures Procedure Name Priority Date/Time Associated Diagnosis Comments ANESTHESIA ARTERIAL LINE PLACEMENT Routine 03/13/2025 8:00 AM EDT PB ANESTHESIA PLACEHOLDER Routine 03/13/2025 7:45 AM EDT AK AN ELECTIVE ENDOTRACHEAL AIRWAY Routine 03/13/2025 7:45 AM EDT documented in this encounter Results * PB ANESTHESIA NON-TIMED PROCEDURE PLACEHOLDER (03/13/2025 8:00 AM EDT) Lenin Ge CRNA - 03/13/2025 8:00 AM EDT Lenin Farmer CRNA 03/13/2025 8:19 AM Arterial Line: Date/Time: 03/13/2025 8:00 AM An arterial line was placed. Procedure performed using surface landmarks in the OR for the following indication(s): blood sampling needed. A 20 gauge (size), 1 and 3/4 inch (length), Angiocath (type) catheter was placed into the Right radial artery and secured by tape. Seldinger technique used Staffing Performed: Anesthesiologist Anesthesiologist: Jaime De Paz DO PLASTIC SURGERY ASSISTANT: Lenin Farmer CRNA us Jaime De Paz DO ANESTHESIA ORDERABLES Final Re sult * AK AN ELECTIVE ENDOTRACHEAL AIRWAY, PB ANESTHESIA PLACEHOLDER (03/13/2025 7:45 AM EDT) Lenin Ge CRNA - 03/13/2025 7:45 AM EDT Lenin Farmer CRNA 03/13/2025 8:30 AM Airway Date/Time: 03/13/2025 7:45 AM Reason: elective Airway not difficult General Information and Staff Patient location during procedure: OR Anesthesiologist: Jaime De Paz DO PLASTIC SURGERY ASSISTANT: Lenin Farmer CRNA Performed: MARITZA Patient Condition Indications for airway management: anesthesia Final Airway Details Final airway type: endotracheal airway Successful airway: ETT Cuffed: yes Successful intubation technique: direct laryngoscopy Adjuncts used in placement: intubating stylet Endotracheal tube insertion site: oral Blade: Charly Blade size: #4 ETT size (mm): 7.0 Cormack-Lehane Classification: grade I - full view of glottis Placement verified by: chest auscultation and capnometry Cuff volume (mL): 7 Measured from: lips ETT to lips (cm): 21 us Jaime E Baldev DO ANESTHESIA ORDERABLES Final Re sult documented in this encounter Visit Diagnoses Not on filedocumented in this encounter Administered Medications Inactive Administered Medications - up to 3 most recent administrations Medication Order MAR Action Action Date Dose Rate Site ceFAZolin (Ancef) injection Intravenous, As needed, Starting on Marian 03/13/25 at 0800, Until Marian 03/13/25 at 0946, Routine, Anesthesia Intraprocedure Given 03/13/2025 8:00 AM EDT 2 g dexamethasone (Decadron) injection Intravenous, As needed, Starting on Marian 03/13/25 at 0800, Until Marian 03/13/25 at 0946, Routine, Anesthesia Intraprocedure Given 03/13/2025 8:00 AM EDT 8 mg ePHEDrine Sulfate (Akovaz) injection Intravenous, As needed, Starting on Marian 03/13/25 at 0748, Until Marian 03/13/25 at 0946, Routine, Anesthesia Intraprocedure Given 03/13/2025 7:48 AM EDT 10 mg fentaNYL (Sublimaze) injection Intravenous, As needed, Starting on Marian 03/13/25 at 0743, Until Marian 03/13/25 at 0946, Routine, Anesthesia Intraprocedure Given 03/13/2025 8:29 AM EDT 50 mcg Given 03/13/2025 7:43 AM EDT 50 mcg glycopyrrolate (Robinul) injection Intravenous, As needed, Starting on Marian 03/13/25 at 0842, Until Marian 03/13/25 at 0946, Routine, Anesthesia Intraprocedure Given 03/13/2025 8:42 AM EDT 0.3 mg Given 03/13/2025 7:45 AM EDT 0.2 mg heparin (porcine) injection Intravenous, Continuous PRN, Starting on Marian 03/13/25 at 0832, Until Marian 03/13/25 at 0946, Routine, Anesthesia Intraprocedure New Bag 03/13/2025 8:32 AM EDT 7,000 Units/hr 7 mL/hr lactated Ringer's infusion Intravenous, Continuous PRN, Starting on Marian 03/13/25 at 0728, Until Marian 03/13/25 at 0946, Routine New Bag 03/13/2025 7:28 AM EDT lidocaine PF (Xylocaine) 2 % injection Intravenous, As needed, Starting on Marian 03/13/25 at 0743, Until Marian 03/13/25 at 0946, Routine, Anesthesia Intraprocedure Given 03/13/2025 7:43 AM EDT 100 mg midazolam (Versed) injection Intravenous, As needed, Starting on Marian 03/13/25 at 0728, Until Marian 03/13/25 at 0946, Routine, Anesthesia Intraprocedure Given 03/13/2025 7:28 AM EDT 2 mg norepinephrine infusion 8 mg in 250 mL NS (0.032 mg/mL) (compounding pharmacy premix) Intravenous, Continuous PRN, Starting on Marian 03/13/25 at 0835, Until Marian 03/13/25 at 0946, STAT, Anesthesia Intraprocedure New Bag 03/13/2025 8:35 AM EDT 0.1 mcg/kg/min 13.444 mL/hr ondansetron (Zofran) injection Intravenous, As needed, Starting on Marian 03/13/25 at 0800, Until Marian 03/13/25 at 0946, Routine, Anesthesia Intraprocedure Given 03/13/2025 8:00 AM EDT 4 mg propofol (Diprivan) injection Intravenous, As needed, Starting on Marian 03/13/25 at 0743, Until Marian 03/13/25 at 0946, Routine, Anesthesia Intraprocedure Given 03/13/2025 8:31 AM EDT 50 mg Given 03/13/2025 7:43 AM EDT 150 mg protamine injection Intravenous, As needed, Starting on Marian 03/13/25 at 0913, Until Marian 03/13/25 at 0946, Routine, Anesthesia Intraprocedure Given 03/13/2025 9:13 AM EDT 40 mg rocuronium (ZeMuron) injection Intravenous, As needed, Starting on Marian 03/13/25 at 0743, Until Marian 03/13/25 at 0946, Routine, Anesthesia Intraprocedure Given 03/13/2025 7:43 AM EDT 50 mg sodium chloride 0.9 % infusion Intravenous, Continuous PRN, Starting on Marian 03/13/25 at 0750, Until Marian 03/13/25 at 0946, Routine New Bag 03/13/2025 7:50 AM EDT sugammadex (Bridion) 100 MG/ML injection Intravenous, As needed, Starting on Marian 03/13/25 at 0922, Until Marian 03/13/25 at 0946, Routine, Anesthesia Intraprocedure Given 03/13/2025 9:22 AM EDT 200 mg vasopressin (Vasostrict) injection Subcutaneous, As needed, Starting on Marian 03/13/25 at 0750, Until Marian 03/13/25 at 0946, Routine, Anesthesia Intraprocedure Given 03/13/2025 8:40 AM EDT 0.5 Units Given 03/13/2025 7:50 AM EDT 1 Units documented in this encounter Additional Health Concerns Assessment Noted Time A fall risk assessment has been complete d for the patient 02/26/2025 9:04 AM EDT A Body Mass Index follow-up plan has been documented for the patient 03/14/2025 11:50 AM EDT documented as of this encounter Care Teams Environmental Journalist Relationship Specialty Start Date End Date Edwardo Sheehan MD [address] [place] [address] PCP - General 12/19/22 Jose R Umana MD [facility] [address] [place] [address] Referring Physician Cardiology 01/23/25 Kevin Mancera MD [address] [place] [address] [address] [place] [address] Referring Physician 01/31/25 documented as of this encounter
--- OUTSIDE RECORDS SUMMARY | 2025-03-13 07:30 | XMS_ITS | Encounter Summary ---
Author Organization [facility] Address [address] 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] Asymptomatic stenosis of right carotid artery [I65.21] Procedures IA LEFT HEART CATH INJECT VETRICULOGRAPHY, IMAGE SUPERVISE/INTERP Left heart catheterization Dion Moeller MD [address] [place] [address] Phone: tel: fax: Cardiac Associate Sales [address] [place] [address] Phone: tel: Referral ID Status Reason Start Date Expiration Date Visits Re quested Visits Authorized [id number] 1 1 Encounter Details Date Type Department Care Team (Late st Contact Info) Description 03/13/2025 7:30 AM EDT - 03/13/2025 10:45 AM EDT Surgery PAV A OPERATING ROOM [address] [place] [address] Cedrick Franz MD [address] [place] [address] right TCAR; shockwave [91869 (CPT )] Surgery Details Date/Time Status Location OR Service Patient Class Case Class Case Type Trauma Case? 03/13/2025 7:30 AM Posted [facility] Extended Recovery E-Electi ve Panel 1 Procedure LRB Anes Op Region Wound Class Comments right TCAR; shockwave Right General Class I/ Clean Surgeon Surgeon Role Service Panel Cedrick Franz MD Primary Vascular Surgery 1 Phyllis Jules MD Resident - Assisting 1 documented in this encounter Social History [...] declined 03/14/2025 How often do you attend shinto or jainism serv ices? Patient declined 03/14/2025 Do you belong to any clubs o r organizations such as shinto groups, unions, fraternal or athletic groups, or [...] drinks on one occasion? Patient declined [facility]/14[facility] Questionnaire Answer Date Recorded [...] Sign Reading Time Taken Comments Blood Pressure 114/69 03/13/2025 10:45 AM EDT Pulse 62 03/13/2025 10:45 AM EDT Temperature 36.8 C (98.2 F) 03/13/2025 10:30 AM EDT Respiratory Rate 10 03/13/2025 10:45 AM EDT Oxygen Saturation 93% 03/13/2025 10:45 AM EDT Inhaled Oxygen Concentration - - Weight 71.7 kg (158 lb) 03/13/2025 6:14 AM EDT Height 167.6 cm (5' 6 ) 03/12/2025 10:45 AM EDT Body Mass Index 25.5 03/12/2025 10:45 AM EDT documented in this encounter Functional Status * Calculated C-SSRS Risk Score (Lifetime/Recent) Answer Date of Assessment Author No Risk Indicated 03/12/2025 7:11 PM EDT Sebastien Valderrama RN * Question Answer Date of Assessment Author 1. Wish to be (Past 1 Month) No 025 7:11 PM EDT Cate Valderrama, RN 2. Non-Specific Active Suici arnaldo Thoughts (Past 1 Month) No 03/12/2025 7:11 PM EDT Cate Valderrama, RN 6. Suicidal Behavior (Lifetime) No 5 7:11 PM EDT Cate Valderrama, RN documented as of this encounter Medications [...] by mouth daily. 30 tablet 11 02/27/2025 06/12/202 6 hydroCHLOROthiaz calista (HYDRODiuril) 25 MG tablet [...] encounter Miscellaneous Notes * Hospital Course - Rohit Alasdeven Galaviz, SPORTS CLERK - 03/14/2025 12:15 PM EDT Joi Marcial is a 69 y.o. female who presented to [facility] on 03/13/2025 for planned staged repair of descending thoracic abdominal aortic aneurysm. 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 Patient previously evaluated at [facility] with plans for staged repair including elephant trunk followed by endovascular repair. She presented to vascular clinic for 2nd opinion as it is closer to home with the shoulder DrKirk. CTA demonstrated maximal diameter of 6.2 cm in descending thoracic aorta. Additionally she had 70-80% stenosis of proximal right ICA and left FIELD PROJECT MANAGER high-grade stenosis. Patient denied back, chest, abdominal [...] Note Joi Marcial 69 y.o. female CSN: [id number] Admission: 03/12/2025 10:26 AM Primary Problem: 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) Primary Scrap Preparer: Primary Caregiver: Self Assistance Available at Discharge: [...] admission Follow-up: Cedrick Franz MD [address] [id number] Discharge Transportation: Transportation Anticipated: family or friend will provide Transportation Home at Discharge: Family/Friend will Provide Follow Up Transport: Transportation Needed to Follow up Appoinments: Family/Friend will Provide Additional Comments: Patient discharging home Martina Lundberg SENIOR RESERVOIR ENGINEER * Discharge Summary - Sarah Alas APRN - 03/14/2025 11:05 AM EDT Images from the original note were not included. Vascular Surgery Discharge Summary Hospitalization Admit Date/Time: 03/12/2025 10:26 AM Admitting Attending: Cedrick Franz Discharge Date: 03/14/2025 Discharge Attending Physician: Elena Vela PCP name and Address: Edwardo Sheehan MD [address] [place] [address] Referring provider name and address: No referring provider defined for this encounter. Chief Concern, Brief History of Present Illness, and Hospital Course Joi Marcial is a 69 y.o. female who presented to [facility] on 03/13/2025 for planned staged repair of descending thoracic abdominal aortic aneurysm. 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 Patient previously evaluated at [facility] with plans for staged repair including elephant trunk followed by endovascular repair. She presented to vascular clinic for 2nd opinion as it is closer to home with the shoulder DrKirk. CTA demonstrated maximal diameter of 6.2 cm in descending thoracic aorta. Additionally she had 70-80% stenosis of proximal right ICA and left FIELD PROJECT MANAGER high-grade stenosis. Patient denied back, chest, abdominal [...] Your Medications These medications were sent to [facility] - [place], [place] - [address] [facility] [id number] naloxone 4 mg/0.1 mL nasal spray oxyCODONE [...] Surgery with any questions or concerns at [phone]. It is important that you get your [...] 03/19/2025 12:00 PM Jose C Nicholson MD [facility] 05/21/2025 9:00 AM [facility] 05/21/2025 10:20 AM Cedrick [facility] MD [facility] Pertinent Physical Exam At Time of Discharge Physical Exam Vitals reviewed. Constitutional: General: She is not in acute distress. Appearance: She is well-groomed. She is not ill-appearing. HENT: Head: Normocephalic. Right Ear: Hearing normal. Left Ear: Hearing normal. Nose: Nose normal. Mouth/Throat: Lips: [place]. Mouth: Mucous membranes are moist. Eyes: Pupils: [...] from the original note were not included. [facility] Department of Surgery Division of Vascular [...] Regular Anticoagulation/DVT ppx: SubQ heparin Pain management: [facility] Level of care: Continue Current Level of Care I have answered and addressed all issues and concerns from the patient and nursing staff. I have notified senior resident/attending collections associate with any issues or concerns. Silviano Hull MD General Surgery PGY-1 Pager: [phone] * Care Plan - Jemal Fields RN [...] Review Outcome: Ongoing, Progressing Flowsheets (Taken 03/13/2025 1839) Progress: improving Plan of Care Reviewed With: [...] encouraged Intervention: Promote Injury-Free Environment Flowsheets (Taken 03/13/2025 183) Safety Promotion/Fall Prevention: activity supervised assistive device/personal items within reach clutter-free environment maintained fall prevention program maintained lighting adjusted mobility aid in reach nonskid shoes/slippers when out of bed room organization consistent safety round/check completed toileting scheduled Problem: Pain Acute Goal: Optimal Pain Control and Function Outcome: Ongoing, Progressing Intervention: Optimize Psychosocial Wellbeing Flowsheets (Taken 03/13/2025 183) Supportive Measures: active listening utilized decision-making supported [...] Note Joi Marcial 69 y.o. female CSN: [id number] Admission: 03/12/2025 10:26 AM Primary Problem: 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) SW unable to complete initial assessment due to patient in OR, SW will continue to follow. Martina Lundberg SENIOR RESERVOIR ENGINEER * Anesthesia PACU Signout - Abel Acevedo [...] Agree with above assessment and evaluation from resident/VICE PRESIDENT OF COMPLIANCE. * Op Note - Cedrick Franz MD - 03/13/2025 8:28 AM EDT Operative Note Date: 03/13/25 Location: [place] [place] Name: Joi Marcial, : 1955, Diagnoses: Pre-op Diagnosis Asymptomatic stenosis of right carotid artery Post-op Diagnosis Asymptomatic stenosis of right carotid artery Procedure(s): Right transcarotid artery revascularization Ultrasound guided left common femoral venous access Intravascular ultrasound of common carotid and internal carotid artery Attending Surgeon(s): * Cedrick Franz - Primary Medical Concierge(s): * Phyllis Jules MD - Resident - Assisting Anesthesia: General ASA: III Blood Administration: Blood Product Administration History None Estimated Blood Loss: Minimal Drains: Urethral Catheter Non-latex;Single lumen;Temperature probe 16 Fr. (Active) Implants Type Name Action Serial No. STENT TRANSCAROTID ENROUTE TAPERED 8-6X40 - [id number] Implanted Specimen: none Findings: successful shockwave balloon [...] 4x12, Salas 6x20 Stent: ENROUTE 8-6x40, lot# [id number] Indication: Joi Marcial is a 69 y.o. [...] technique this was upsized to the 8- Trinidadian venous sheath. Micropuncture needle was used to access the center of the U-stitch followed by advancement of a micro wire. The micro needle was then exchanged for a 4 Trinidadian catheter and angiogram was performed to reveal the anatomy of the common carotid internal carotid external carotid artery. The stiff sheath introducer wire was then advanced just proximal to the carotid bifurcation and the 4 Trinidadian sheath was exchanged for the 8 Trinidadian arterial sheath. The sheath was sutured in place and the dilator and wire were withdrawn. Two-view angiogram was performed to confirm correct placement of the sheath and that there was no dissection present. After confirming ACT greater than 250, systolic blood pressureover 140, and heart rate over 70, flow reversal was established the with the EnRoute CREDENTIALING MANAGER system. The common carotid artery was clamped [...] VQI TCAR surveillance project-National clinical trial, NCT: [id number] There were NO signs of surgical site infection (SSI) present at the time of surgery (PATOS). Complications: None; patient tolerated the procedure well. Submitted by: Phyllis Jules MD - 03/13/2025 * H&P - Silviano Hull MD - 03/13/2025 12:05 AM EDT Images from the original note were not included. [facility] Department of Surgery Division of Vascular Surgery History & Physical Note Subjective History of Present Illness: Joi Marcial is a 69 y.o. female with PMHx significant for HLD, HTN, OA, cerebral venous sinous thrombosis, former smoker (quit 2017) R carotid stenosis, and 6.2 cm descending aortic aneurysm who presented to the [facility] on 03/12/2025 for planned coronary angiography (per [...] (Blue Cap) 18+ 12/19/2020 Moderna COVID-19 Vaccine (Buckle Frame Shaper) 12+ years 10/08/2021 Pneumococcal Conjugate PCV 13 [...] Silviano Hull MD General Surgery PGY-1 Pager: [phone] [1] Past Medical History: Diagnosis Date Aneurysm [...] been discussed with the patient and/or their quality control representative. All questions answered and they agree [...] Description 05/14/2025 12:30 PM EDT Office Visit [facility] Cardiothoracic [address], [address] [place] [address] Jose C Nicholson MD [address] [place] [address] 05/21/2025 9:00 AM EDT Appointment [facility] Vascular Lab [address] [place] [id number] 05/21/2025 10:20 AM EDT Office Visit [facility] Comprehensive [facility] Clinic [address] [facility] [address]th Floor [address] [place] [address] Cedrick Franz MD [address] [place] [address] Scheduled Orders Name Type Priority [...] ARTERIAL Pending Discharge 03/13/2025 8:18 AM EDT IA TCAT IV STENT CRV CRTD ART EMBOLIC [...] - 4.5 mg/dL 03/14/2025 1:04 AM EDT [facility] Blood Venous blood specimen / Unknown Venipuncture / Unknown 03/14/2025 12:24 AM EDT 03/14/2025 12:38 AM EDT us Cedrick Franz MD LAB BLOOD ORDERABLES Final Res ult Performing Organization Address [facility] Co de Phone Number [facility] [address] [place] [address] * (ABNORMAL) Magnesium (03/14/2025 12:24 AM EDT) Magnesium, Plasma 1.8(L) 1.9 - 2.4 mg/dL 03/14/2025 1:04 AM EDT [facility] Blood Venous blood specimen / Unknown Venipuncture / Unknown 03/14/2025 12:24 AM EDT 03/14/2025 12:38 AM EDT us Cedrick Franz MD LAB BLOOD ORDERABLES Final Res ult Performing Organization Address [facility] Phone Number [facility] [address] [place] [address] * (ABNORMAL) Basic metabolic panel (03/14/2025 12:24 AM EDT) Glucose, Plasma 129(H) 74 - 99 mg/dL 03/14/2025 1:04 AM EDT [facility] BUN, Plasma 16 8 - 23 mg/dL 03/14/2025 1:04 AM EDT [facility] Creatinine, Plasma 0.83 0.60 - 1.10 mg/dL 03/14/2025 1:04 AM EDT [facility] BUN/Creatinine Ratio 19 03/14/2025 1:04 AM EDT [facility] Sodium, Plasma 136 136 - 145 mmol/L 03/14/2025 1:04 AM EDT [facility] Potassium, Plasma 4.1 3.6 - 4.9 mmol/L 03/14/2025 1:04 AM EDT [facility] Chloride, Plasma 104 97 - 107 mmol/L 03/14/2025 1:04 AM EDT [facility] CO2, Plasma 22 22 - 29 mmol/L 03/14/2025 1:04 AM EDT [facility] Anion Gap 10 6 - 16 mmol/L 03/14/2025 1:04 AM EDT [facility] Total Calcium, Plasma 8.7(L) 8.9 - 10.2 mg/dL 03/14/2025 1:04 AM EDT [facility] eGFRcr 75.9 mL/min/1.7 3m*2 03/14/2025 1:04 AM EDT [facility] Comment:Reported eGFRcr in m L/min/1.73m2 is based the CKD-EPI 2020 equation that does not use a race coefficient. Blood Venous blood specimen / Unknown Venipuncture / Unknown 03/14/2025 12:24 AM EDT 03/14/2025 12:38 AM EDT us Cedrick Franz MD LAB BLOOD ORDERABLES Final Res ult [facility] [address] [place] [address] * (ABNORMAL) CBC (03/14/2025 12:24 AM EDT) WBC Count 8.64 3.70 - 10.30 10*3/uL LAB HEMATOLOGY METHOD 03/14/2025 1:05 AM EDT [facility] RBC Count 3.43(L) 3.90 - 5.20 10*6/uL LAB HEMATOLOGY METHOD 03/14/2025 1:05 AM EDT [facility] HGB 9.9(L) 11.2 - 15.7 g/dL LAB HEMATOLOGY METHOD 03/14/2025 1:05 AM EDT [facility] HCT 30.0(L) 34.0 - 45.0 % LAB HEMATOLOGY METHOD 03/14/2025 1:05 AM EDT [facility] Platelet Count 153(L) 155 - 369 10*3/uL LAB HEMATOLOGY METHOD 03/14/2025 1:05 AM EDT [facility] MCV 88 79 - 98 fL LAB HEMATOLOGY METHOD 03/14/2025 1:05 AM EDT [facility] MCH 28.9 26.0 - 32.0 pg LAB HEMATOLOGY METHOD 03/14/2025 1:05 AM EDT [facility] MCHC 33.0 30.7 - 35.5 g/dL LAB HEMATOLOGY METHOD 03/14/2025 1:05 AM EDT [facility] RDW 14.5 11.5 - 14.5 % LAB HEMATOLOGY METHOD 03/14/2025 1:05 AM EDT [facility] MPV 12.3 8.8 - 12.5 fL LAB HEMATOLOGY METHOD 03/14/2025 1:05 AM EDT [facility] nRBC 0.0 <=0.0 per 100 WBCs LAB HEMATOLOGY METHOD 03/14/2025 1:05 AM EDT [facility] Blood Venous blood specimen / Unknown Venipuncture / Unknown 03/14/2025 12:24 AM EDT 03/14/2025 12:41 AM EDT Cedrick Franz MD LAB BLOOD ORDERABLES Final Res ult Performing Organization Address City/[facility]/ZIP Co de Phone Number [facility] [address] [place] [address] * (ABNORMAL) Hemoglobin and hematocrit, blood (03/13/2025 10:41 PM EDT) Pathologist [facility] HGB 9.8(L) 11.2 - 15.7 g/dL LAB HEMATOLOGY METHOD 03/13/2025 10:57 PM EDT [facility] HCT 29.8(L) 34.0 - 45.0 % LAB HEMATOLOGY METHOD 03/13/2025 10:57 PM EDT [facility] Blood Arterial blood specimen / Unknown Venipuncture / Unknown 03/13/2025 10:41 PM EDT 03/13/2025 10:50 PM EDT us Cedrick Franz MD LAB BLOOD ORDERABLES Final Res ult Performing Organization Address City/[facility]/ZIP Co de Phone Number [facility] [address] [place] [address] * Shaila auris Surveillance by PCR (03/13/2025 6:09 PM EDT) Pathologist [facility] Shaila auris PCR Result Not Detected Not Detected 03/14/2025 1:29 PM EDT [facility] Swab (Axilla and Groin) Non-blood Collection / Unknown 03/13/2025 6:09 PM EDT 03/13/2025 6:17 PM EDT Narrative [facility] - 03/14/2025 1:29 PM EDT This PCR assay was developed and its performance characteristics determined by [facility] as appropriate for clinical purposes. This assay has not been cleared or approved by the FDA, but is performed in a CLIA regulated laboratory that is qualified to perform high-complexity testing. Cedrick Franz MD LAB MICROBIOLOGY - GENERAL ORD ERABLES Final Result Performing Organization Address [facility] Co de Phone Number [facility] [address] [place] [address] * Multi Drug Resistance Test (03/13/2025 6:09 PM EDT) Pathologist [facility] Culture No growth at day 1 03/14/2025 8:22 PM EDT [facility] Swab (Nares and Frances Rectal) Non-blood Collection / Unknown 03/13/2025 6:09 PM EDT 03/13/2025 6:17 PM EDT Narrative [facility] - 03/14/2025 8:22 PM EDT This test was developed and its performance characteristics determined by the [facility] Clinical Microbiology Laboratory. Although the media is FDA-approved, it is not FDA-approved for all specimen types submitted. The FDA has determined that such clearance or approval is not necessary. This test is used for surveillance purposes. It should not be regarded as investigational or for research. The [facility] Clinical Microbiology Laboratory is certified under the Clinical Laboratory Improvement Amendments of 1988 (CLIA-88) as qualified to perform high complexity clinical laboratory testing. Cedrick Franz MD LAB MICROBIOLOGY - GENERAL ORD ERABLES Final Result Performing Organization Address [facility] Co de Phone Number [facility] [address] [place] [address] * FL Less than 1 Hour Intraoperative (03/13/2025 2:53 PM EDT) Narrative IMAGING - 03/13/2025 2:54 PM EDT Images were obtained for surgical purposes. See Cedrick Franz's surgical note in the patient's chart for the findings. Cedrick Franz MD IMG FLUOROSCOPY PROCEDURES Fin al Result Performing Organization Address City/[facility]/ZIP Co de Phone Number IMAGING * POCT ACT (03/13/2025 8:39 AM EDT) ACT+ (HIGH RANGE) 266 68 - 600 Seconds 03/13/2025 12:23 PM EDT [facility] Prop Drawer ID Arturo Chandra 03/13/2025 12:23 PM EDT [facility] ACT Device ID [id number] 03/13/2025 12:23 PM EDT [facility] Comment 03/13/2025 12:23 PM EDT [facility] Comment: ACT performed by staff at [...] 8:39 AM EDT 03/13/2025 12:23 PM EDT Cedrick Franz MD LAB POINT OF CARE TE ST DOCKED DEVICE UNSOLICITED RESULTS Final Result Performing Organization Address City/[facility] Co de Phone Number [facility] [address] [facility] [address] [place] [address] * (ABNORMAL) Blood gas panel, arterial (03/13/2025 8:18 AM EDT) pH, Arterial 7.45(H) 7.31 - 7.42 LAB HEMATOLOGY METHOD 03/13/2025 8:46 AM EDT [facility] pCO2, Arterial 35 35 - 48 mmHg LAB HEMATOLOGY METHOD 03/13/2025 8:46 AM EDT [facility] pO2, Arterial 272 >70 mmHg LAB HEMATOLOGY METHOD 03/13/2025 8:46 AM EDT [facility] SO2, Measured, Arterial 98 94 - 98 % LAB HEMATOLOGY METHOD 03/13/2025 8:46 AM EDT [facility] Base Excess, Arterial 0.1 -2.0 - 3.0 mmol/L LAB HEMATOLOGY METHOD 03/13/2025 8:46 AM EDT [facility] Bicarbonate, Calculated, Arterial 24 22 - 26 mmol/L LAB HEMATOLOGY METHOD 03/13/2025 8:46 AM EDT [facility] Hematocrit, Whole Blood 33.2(L) 34.0 - 45.0 % LAB HEMATOLOGY METHOD 03/13/2025 8:46 AM EDT [facility] Sodium, Whole Blood 140 136 - 145 mmol/L LAB HEMATOLOGY METHOD 03/13/2025 8:46 AM EDT [facility] Potassium, Whole Blood 3.2(L) 3.6 - 4.9 mmol/L LAB HEMATOLOGY METHOD 03/13/2025 8:46 AM EDT [facility] Chloride, Whole Blood 108(H) 97 - 107 mmol/L LAB HEMATOLOGY METHOD 03/13/2025 8:46 AM EDT [facility] Glucose, Whole Blood 103(H) 74 - 99 mg/dL LAB HEMATOLOGY METHOD 03/13/2025 8:46 AM EDT [facility] Ionized Calcium, Whole Blood 4.4(L) 4.6 - 5.1 mg/dL LAB HEMATOLOGY METHOD 03/13/2025 8:46 AM EDT [facility] Lactate, Arterial, Whole Blood 0.8 0.5 - 1.6 mmol/L LAB HEMATOLOGY METHOD 03/13/2025 8:46 AM EDT [facility] Blood Arterial blood specimen / Unknown Arterial Puncture / Unknown 03/13/2025 8:18 AM EDT 03/13/2025 8:43 AM EDT us Lenin Farmer VICE PRESIDENT OF COMPLIANCE LAB BLOOD ORDERABLES Barbara l Result [facility] [address] [place] [address] * Type and screen (03/13/2025 8:18 AM EDT) ABO/Rh A Positive 03/13/2025 8:11 AM EDT BLOOD BANK Antibody Screen Negative 03/13/2025 8:11 AM EDT BLOOD BANK Specimen Expiration 03/16/2025 23:59 03/13/2025 8:11 AM EDT BLOOD BANK Blood Venous blood specimen / Unknown Venipuncture / Unknown 03/13/2025 8:18 AM EDT 03/13/2025 8:28 AM EDT us Lenin Farmer VICE PRESIDENT OF COMPLIANCE LAB BLOOD BANK TEST ORDER AMBROSE Final Result BLOOD BANK [address] [place] [address], * (ABNORMAL) Basic metabolic panel (03/13/2025 12:19 AM EDT) Glucose, Plasma 115(H) 74 - 99 mg/dL 03/13/2025 12:58 AM EDT [facility] BUN, Plasma 20 8 - 23 mg/dL 03/13/2025 12:58 AM EDT [facility] Creatinine, Plasma 0.91 0.60 - 1.10 mg/dL 03/13/2025 12:58 AM EDT [facility] BUN/Creatinine Ratio 22 03/13/2025 12:58 AM EDT [facility] Sodium, Plasma 138 136 - 145 mmol/L 03/13/2025 12:58 AM EDT [facility] Potassium, Plasma 3.7 3.6 - 4.9 mmol/L 03/13/2025 12:58 AM EDT [facility] Chloride, Plasma 102 97 - 107 mmol/L 03/13/2025 12:58 AM EDT [facility] CO2, Plasma 23 22 - 29 mmol/L 03/13/2025 12:58 AM EDT [facility] Anion Gap 13 6 - 16 mmol/L 03/13/2025 12:58 AM EDT [facility] Total Calcium, Plasma 9.3 8.9 - 10.2 mg/dL 03/13/2025 12:58 AM EDT [facility] eGFRcr 68.0 mL/min/1.7 3m*2 03/13/2025 12:58 AM EDT [facility] Comment:Reported eGFRcr in m L/min/1.73m2 is based the CKD-EPI 2020 equation that does not use a race coefficient. Blood Venous blood specimen / Unknown Venipuncture / Unknown 03/13/2025 12:19 AM EDT 03/13/2025 12:26 AM EDT us Dion Moeller MD LAB BLOOD ORDERABLES Final Result [facility] [address] [place] [address] * (ABNORMAL) CBC (03/13/2025 12:19 AM EDT) WBC Count 11.75(H) 3.70 - 10.30 10*3/uL LAB HEMATOLOGY METHOD 03/13/2025 12:48 AM EDT [facility] RBC Count 4.48 3.90 - 5.20 10*6/uL LAB HEMATOLOGY METHOD 03/13/2025 12:48 AM EDT [facility] HGB 12.7 11.2 - 15.7 g/dL LAB HEMATOLOGY METHOD 03/13/2025 12:48 AM EDT [facility] HCT 39.2 34.0 - 45.0 % LAB HEMATOLOGY METHOD 03/13/2025 12:48 AM EDT [facility] Platelet Count 223 155 - 369 10*3/uL LAB HEMATOLOGY METHOD 03/13/2025 12:48 AM EDT [facility] MCV 88 79 - 98 fL LAB HEMATOLOGY METHOD 03/13/2025 12:48 AM EDT [facility] MCH 28.3 26.0 - 32.0 pg LAB HEMATOLOGY METHOD 03/13/2025 12:48 AM EDT [facility] MCHC 32.4 30.7 - 35.5 g/dL LAB HEMATOLOGY METHOD 03/13/2025 12:48 AM EDT [facility] RDW 14.1 11.5 - 14.5 % LAB HEMATOLOGY METHOD 03/13/2025 12:48 AM EDT [facility] MPV 11.9 8.8 - 12.5 fL LAB HEMATOLOGY METHOD 03/13/2025 12:48 AM EDT [facility] nRBC 0.0 <=0.0 per 100 WBCs LAB HEMATOLOGY METHOD 03/13/2025 12:48 AM EDT [facility] Blood Venous blood specimen / Unknown Venipuncture / Unknown 03/13/2025 12:19 AM EDT 03/13/2025 12:29 AM EDT us Dion Moeller MD LAB BLOOD ORDERABLES Final Result [facility] [address] [place] [address] * LEFT HEART CATHETERIZATION, CORONARY ANGIOGRAPHY (03/12/2025 [...] The patient was transferred back to the director of cath lab holding area in good condition. Coronary Findings [...] Phase: Resting Aortic AO: 99/50 (48) mmHg Jose C Nicholson MD CV CARDIAC CATH PROCEDURES Barbara wynn Result * POCT creatinine (03/12/2025 11:04 AM EDT) [facility] Creatinine, Point of Care 1.1 0.6 - 1.1 mg/dL 03/12/2025 11:08 AM EDT [facility] POCT eGFR 54 mL/min/1. 73m*2 03/12/2025 11:08 AM EDT [facility] Prop Drawer ID Paresh Khan 03/12/2025 11:08 AM EDT [facility] Device ID [id number] 03/12/2025 11:08 AM EDT [facility]ALTH[facility] Comment 03/12/2025 11:08 AM EDT [facility] Comment:Testing performed on i-STAT at the point of care. Reported eGFRcr in mL/min/1.73m2 is based the CKD-EPI 2020 equation that does not use a race coefficient. Blood Venous blood specimen / Unknown 03/12/2025 11:04 AM EDT 03/12/2025 11:08 AM EDT us Dion Moeller MD LAB POINT OF CARE T EST DOCKED DEVICE UNSOLICITED RESULTS Final Result [facility] [address] LAB [address] [place] [address] * Basic metabolic panel (03/12/2025 10:55 AM EDT) Glucose, Plasma 80 74 - 99 mg/dL 03/12/2025 11:40 AM EDT [facility] BUN, Plasma 22 8 - 23 mg/dL 03/12/2025 11:40 AM EDT [facility] Creatinine, Plasma 0.89 0.60 - 1.10 mg/dL 03/12/2025 11:40 AM EDT [facility] BUN/Creatinine Ratio 03/12/2025 11:40 AM EDT [facility] Sodium, Plasma 138 136 - 145 mmol/L 03/12/2025 11:40 AM EDT [facility] Potassium, Plasma 4.0 3.6 - 4.9 mmol/L 03/12/2025 11:40 AM EDT [facility] Chloride, Plasma 101 97 - 107 mmol/L 03/12/2025 11:40 AM EDT [facility] CO2, Plasma 25 22 - 29 mmol/L 03/12/2025 11:40 AM EDT [facility] Anion Gap 12 6 - 16 mmol/L 03/12/2025 11:40 AM EDT [facility] Total Calcium, Plasma 9.5 8.9 - 10.2 mg/dL 03/12/2025 11:40 AM EDT [facility] eGFRcr 69.8 mL/min/1.7 3m*2 03/12/2025 11:40 AM EDT [facility] Comment:Reported eGFRcr in m L/min/1.73m2 is based the CKD-EPI 2020 equation that does not use a race coefficient. Blood Venous blood specimen / Unknown Venipuncture / Unknown 03/12/2025 10:55 AM EDT 03/12/2025 11:09 AM EDT us Dion Moeller MD LAB BLOOD ORDERABLES Final Result [facility] [address] [place] [address] * Hemogram (CBC) (03/12/2025 10:55 AM EDT) WBC Count 6.87 3.70 - 10.30 10*3/uL LAB HEMATOLOGY METHOD 03/12/2025 11:24 AM EDT [facility] RBC Count 4.16 3.90 - 5.20 10*6/uL LAB HEMATOLOGY METHOD 03/12/2025 11:24 AM EDT [facility] HGB 11.7 11.2 - 15.7 g/dL LAB HEMATOLOGY METHOD 03/12/2025 11:24 AM EDT [facility] HCT 36.8 34.0 - 45.0 % LAB HEMATOLOGY METHOD 03/12/2025 11:24 AM EDT [facility] Platelet Count 208 155 - 369 10*3/uL LAB HEMATOLOGY METHOD 03/12/2025 11:24 AM EDT [facility] MCV 89 79 - 98 fL LAB HEMATOLOGY METHOD 03/12/2025 11:24 AM EDT [facility] MCH 28.1 26.0 - 32.0 pg LAB HEMATOLOGY METHOD 03/12/2025 11:24 AM EDT [facility] MCHC 31.8 30.7 - 35.5 g/dL LAB HEMATOLOGY METHOD 03/12/2025 11:24 AM EDT [facility] RDW 14.3 11.5 - 14.5 % LAB HEMATOLOGY METHOD 03/12/2025 11:24 AM EDT [facility] MPV 12.1 8.8 - 12.5 fL LAB HEMATOLOGY METHOD 03/12/2025 11:24 AM EDT [facility] nRBC 0.0 <=0.0 per 100 WBCs LAB HEMATOLOGY METHOD 03/12/2025 11:24 AM EDT [facility] Blood Venous blood specimen / Unknown Venipuncture / Unknown 03/12/2025 10:55 AM EDT 03/12/2025 11:13 AM EDT us Dion Moeller MD LAB BLOOD ORDERABLES Final Result [facility] [address] [place] [address] documented in this encounter Visit Diagnoses Diagnosis 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) Asymptomatic stenosis of right carotid artery 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) Asymptomatic stenosis of right carotid artery Asymptomatic stenosis of right carotid artery documented [...] Given 03/14/2025 9:22 AM EDT 81 mg ceFAZolin (Ancef) 1 g in sodium chloride 0.9 % 1,000 mL OR irrigation Continuous PRN, Starting on Marian 03/13/25 at 0812, Until Mon03/13/25 at 0939, Routine New Bag 03/13/2025 8:12 AM EDT clopidogrel (Plavix) tablet 75 mg 75 mg, Oral, Daily, First dose on Mon03/14/25 at 0900, Until Discontinued, Routine, Recovery(Phase II-Outpatient)/On Unit(Inpatient) Given 03/14/2025 9:22 AM EDT 75 mg heparin (porcine) 10,000 Units in sodium chloride 0.9 % 1,010 mL OR irrigation Continuous PRN, Starting on Mon03/13/25 at 0810, Until Mon03/13/25 at 0939, Routine New Bag 03/13/2025 8:10 AM EDT heparin (porcine) injection 5,000 Units 5,000 Units, Subcutaneous, Every 8 hours scheduled, First dose on Marian 03/13/25 at 1400, Until Discontinued, Routine, Recovery(Phase II-Outpatient)/On Unit(Inpatient) Given 03/14/2025 6:46 AM EDT 5,000 Units Left Lower Abdomen Given 03/13/2025 9:15 PM EDT 5,000 Units R ight Upper Abdomen Given 03/13/2025 1:07 PM EDT 5,000 Units R ight Lower Abdomen iodixanol (VISIPaque) 320 MG/ML injection As needed, Starting on Mon03/13/25 at 0811, Until Marian 03/13/25 at 0944, Routine, Intraprocedure Given 03/13/2025 8:11 AM EDT 30 mL mupirocin (Bactroban) 2 % ointment 1 Application [...] RN) 0232 (Not Given - Provider: Jemal Fields, ABHILASH - Reason: Patient/family refused)1134 (Given - Provider: Alicja Garsia) aspirin chewable tablet 81 mg 81 mg, Oral, Daily, First dose on Mon03/14/25 at 0900, Until Discontinued, Routine, Recovery(Phase II-Outpatient)/On Unit(Inpatient) 0922 (Given - Provider: Lon Marshall RN) bisoprolol (Zebeta) tablet 10 mg (CANCELED) 10 mg, Oral, Daily, First dose on Mon03/12/25 at 2200, Until Discontinued, Routine 2236 (Given - Provider: Cate Valderrama, ABHILASH) 0546 [...] 0922 (Given - Provider: Lon Marshall RN) heparin [...] at 2300, Administer over 2 Hours, Routine 2214 (New Bag - Provider: Jemal Fields, ABHILASH) [...] Oral, Nightly, First dose on Mon03/12/25 at 2114, Until Discontinued, Routine 2118 (Given - Provider: [...] - Preprocedure 0715 (Given - Provider: Krystal Mead RN) PRN Medication Order 03/12/2025 03/13/2025 03/14/2025 acetaminophen (Tylenol) tablet 650 mg 650 mg, Oral, Every 6 hours PRN, Starting on Mon03/12/25 at 2101, Until Mon03/14/25 at 1440, Routine, mild pain, moderate pain, headaches, fever 2118 (Given - Provider: Cate Valderrama, ABHILASH) 0546 ([facility] Hold - Provider: Automatic Transfer Provider - Reason: Patient in procedure)1708 ([facility] Unhold - Provider: Automatic Transfer Provider) ALPRAZolam (Xanax) tablet 0.5 mg 0.5 mg, Oral, Nightly PRN, Starting on Mon03/12/25 at 2100, Until Mon03/14/25 at 1440, Routine, anxiety 2118 (Given - Provider: Cate Valderrama RN) 0546 ([facility] Hold - Provider: Automatic Transfer Provider - Reason: Patient in procedure)1708 ([facility] Unhold - Provider: Automatic Transfer Provider)2114 (Given [...] And Saline lock IV (CANCELED) Once, On Marian 03/13/25 at 0610, For 1 occurrence, Holding - Preprocedure And sodium chloride 0.9 % flush 10 mL (CANCELED)Jump to med 10 mL, Intravenous, Every 12 hours, First dose on Mon03/13/25 at 0700, Until Discontinued, Routine, Holding - Preprocedure And sodium chloride 0.9 % flush 10 mL (CANCELED) 10 mL, Intravenous, As needed, Starting on Marian 03/13/25 at 0609, Until Mon03/13/25 at 1709, Routine, [...] documented as of this encounter Care Teams Slate Handler Relationship Specialty Start Date End Date Edwardo Sheehan MD [address] [place] [address] PCP - General 12/19/22 Jose R Umana MD [address] [facility] [address] [place] [address] Referring Physician Cardiology 01/23/25 Kevin Mancera MD [address] [facility] [address] [place], [place] [id number] Referring Physician 01/31/25 documented as of this encounter
--- OUTSIDE RECORDS SUMMARY | 2025-03-19 12:00 | XMS_ITS | Encounter Summary ---
Author Organization Healthcare Address [address] 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 Patient declined 03/14/2025 Do you belong to any clubs o r organizations such as faith groups, unions, fraternal or athletic groups, or [...] drinks on one occasion? Patient declined 03/14/2025 [facility] - Occupational Stress Questionnaire Answer Date Recorded [...] Sign Reading Time Taken Comments Blood Pressure 118/67 03/19/2025 12:19 PM EDT Pulse 47 03/19/2025 12:19 PM EDT Temperature - - Respiratory Rate - - Oxygen Saturation 100% 03/19/2025 12: 19 PM EDT Inhaled Oxygen Concentration - - Weight 69.8 kg (153 lb 14.1 oz) 025 12:05 PM EDT Height 167.6 cm (5' 6 ) 03/19/2025 12:0 5 PM EDT Body Mass Index 24.84 03/19/2025 12:05 PM EDT documented in this encounter Functional Status * Over the past 2 weeks, how [...] 0 03/19/2025 12:18 PM EDT Carmelita Burr documented as of this encounter Miscellaneous Notes * Progress Notes - Hesham Guardado PA - 03/19/2025 12:00 PM EDT Reason for visit Joi Marcial is a 69 y.o. female from [facility] who returns to discuss surgery to repair Asc. Ao. aneurysm History of present illness: Ms. Marcial returns today after undergoing PFT's and L Heart catheterization in preporation for a staged repair of her thoracic aneurysm. We have planned for arch replacement, deep hypothermic circulatory arrest, de-branching and repair of Asc. Ao. Aneurysm. Her descending thoracic aneurysm will be addressed by Dr. Franz of vascular surgery. She recently underwent R trans carotid artery revascularization on 03/13/[address] Franz. Her only complaint is that of a macular rash on her entire trunk that she states started today. The only new medications that she has been taking since her procedure is oxycodone. Medical History Past Medical History Pertinent Negatives[1] Surgical History Surgical History[2] Social History: Tobacco: Tobacco Use: Medium Risk (03/19/2025) Patient History Smoking Tobacco Use: Former Smokeless Tobacco Use: Unknown Passive Exposure: Past Alcohol: Alcohol Use: Patient Declined (03/14/2025) AUDIT-C Frequency of Alcohol Consumption: Patient declined Average Number of Drinks: Patient declined Frequency of Binge Drinking: Patient declined Illicit drug use: Social History Substance and Sexual Activity Drug Use Yes Types: Marijuana Family History: family history includes Cancer in her brother; Diabetes type II in her brother and sister; Heart disease in her father; Hypertension in her mother; Sudden in her brother. Allergies: Allergies[3] Medications: Prior to Admission medications Medication Sig [...] daily. 02/27/25 02/27/26 Yes Cedrick Franz MD hydroCHLOROthiazide (HYDRODiuril) 25 MG tablet Take 2 tablets by mouth daily. Yes Kalia Aburto MD lisinopril 20 MG tablet Take 1 tablet by mouth nightly. Patient taking differently: Take 2 tablets by mouth nightly. Yes Kalia Aburto MD Multiple Vitamins-Minerals (CENTRUM SILVER 50+WOMEN PO) Take by mouth. Yes Kalia Aburto MD naloxone (Narcan) 4 mg/0.1 mL nasal spray 1. Give 1 spray in nostril for no/slow breathing or cannot wake after opioid use 2. Call 911 3. Repeat in other nostril if symptoms continue 03/14/25 Yes Sarah Alas APRN oxyCODONE (Roxicodone) 5 MG immediate release tablet Take 1 tablet by mouth every 6 hours as neededfor moderate pain or severe pain for up to 3 days. 03/14/25 03/19/25 Yes Sarah Alas APRN PARoxetine (Paxil) 20 MG tablet Take 1 tablet by mouth daily. Yes Kalia Aburto MD atorvastatin (Lipitor) 40 MG tablet Take 1 tablet (40 mg total) by mouth every night. 01/09/23 03/13/25 Yes Kathryn Dominguez MD atorvastatin (Lipitor) 40 MG tablet Take 1 tablet by mouth nightly. Patient not taking: Reported on 03/19/2025 03/19/25 03/19/25 Jose C Nicholson MD apixaban (Eliquis) 5 MG tablet Take 1 tablet (5 mg total) by mouth 2 (two) times a day. Patient not taking: Reported on 03/13/2025 01/09/23 03/13/25 Kathryn Dominguez MD apixaban (Eliquis) 5 MG tablet Take 1 tablet by mouth 2 times a day. 03/14/25 Kalia Aburto MD lisinopril-hydroCHLOROthiazide 20-25 MG tablet Take 1 tablet by mouth daily. 12/30/24 03/13/25 ProviderKalia MD VITAMIN D, ERGOCALCIFEROL, PO Take by mouth. Patient not taking: No sig reported 03/13/25 ProviderKalia MD Review of systems: ROS 14 point ROS obtained, all negative unless stated in the HPI Imaging: Coronary Findings Diagnostic Dominance: Right Left Main The LMCA is a large caliber vessel that arises from the L coronary cusp, and bifurcates into the LAD and L circumflex arteries. There is no angiographic evidence of CAD. Left Anterior Descending The vessel was selectively engaged. The vessel is angiographically normal. The LAD is a large caliber vessel arising from the LMCA, and gives off a large diagonal branch, 2 smaller diagonal branches and septal perforators before coursing to and terminating at the apex of the heart. There is no angiographic evidence of obstructive CAD present. Left Circumflex The L circumflex artery is a large caliber vessel that arises from the LMCA, and gives off OM branches before coursing to and terminating within the posterior AV groove. There is no angiographic evidence for obstructive CAD. Right Coronary Artery The vessel was selectively engaged. The vessel is angiographically normal. The RCA is a large caliber vessel arising from the R coronary cusp, giving off marginal branches, and courses to and throughthe posterior AV groove before giving off a PDA and a PL system (R-dominant system). There is no angiographic evidence of obstructive CAD. Physical exam: Physical Exam Vitals and nursing note reviewed. Constitutional: Appearance: Normal appearance. HENT: Head: Normocephalic and atraumatic. Nose: Nose normal. Mouth/Throat: Mouth: Mucous membranes are moist. Eyes: Pupils: Pupils are equal, round, and reactive to light. Cardiovascular: Rate and Rhythm: Bradycardia present. Heart sounds: Normal heart sounds. No murmur heard. Pulmonary: Effort: Pulmonary effort is normal. Breath sounds: Normal breath sounds. Abdominal: Palpations: Abdomen is soft. Musculoskeletal: General: Normal range of motion. Cervical back: Normal range of motion. Skin: Capillary Refill: Capillary refill takes less than 2 seconds. Findings: Rash present. Neurological: General: No focal deficit present. Mental Status: She is alert and oriented to person, place, and time. Mental status is at baseline. Psychiatric: Mood and Affect: Mood normal. Behavior: Behavior normal. Thought Content: Thought content normal. Impression/Plan: Ms. Marcial returns today after undergoing PFT's and L Heart catheterization in preporation for a staged repair of her thoracic aneurysm. We have planned for arch replacement, deep hypothermic circulatory arrest, de-branching and repair of Asc. Ao. Aneurysm. Her descending thoracic aneurysm will be addressed by Dr. Franz of vascular surgery. She recently underwent R trans carotid artery revascularization on 03/13/[address] Franz. Her only complaint is that of a macular rash on her entire trunk that she states started today. The only new medications that she has been taking since her procedure is oxycodone. We have instructed her to stop the oxycodone and take benadryl 50 mg PRN for the rash. We will have her return in 7-8 weeks and schedule surgery which will include de- branching, Arch replacement, deep hypothermic circulatory arrest and repair of the Asc. Ao. . [1] Past Medical History: Diagnosis Date Aneurysm (CMS/HCC) 2024 Hyperlipidemia Hypertension 1989 Obesity [2] Past Surgical History: Procedure Laterality Date BACK SURGERY CHOLECYSTECTOMY 1971 FOOT SURGERY HYSTERECTOMY TOTAL HIP ARTHROPLASTY Left [3] No Known Allergies Cosigned by Jose C Nicholson MD at 03/19/2025 4:05 PM EDT Associated attestation - Jose C Nicholson MD - 03/19/2025 4:05 PM EDT Seen and examined and records reviewed and discussed with Guardado, I agree with his note and plan. The patient had carotid stenting by Dr. CARLIN last week. She is recovering well. We will allow around a month with dual antiplatelet therapy and then we will see her in the April to schedule for surgery that will likely include ascending aortic replacement the branching of the innominate artery and the left carotid and possibly hemiarch or arch replacement with circulatory arrest depending on the intraoperative findings. documented in this encounter Plan of Treatment Upcoming Encounters Date Type Department Care Team (Late st Contact Info) Description 05/14/2025 12:30 PM EDT Office Visit [facility] [address], [address] [place] [address] Jose C Nicholson MD [address] [place] [address] 05/21/2025 9:00 AM EDT Appointment [facility] [address] [facility] 5th Floor [address] [place] [address] 05/21/2025 10:20 AM EDT Office Visit [facility] [address] [place] [address] Cedrick Franz MD [address] [facility] [address] [place] [address] documented as of this encounter Visit Diagnoses Diagnosis 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 documented in this encounter Additional Health Concerns Assessment Noted Time A fall risk assessment has been complete d for the patient 03/19/2025 12:18 PM EDT A Body Mass Index follow-up plan has been documented for the patient 03/19/2025 1:22 PM EDT documented as of this encounter Care Teams Ruby On Rails Web Developer Relationship Specialty Start Date End Date Edwardo Sheehan MD [address] [place] [address] PCP - General 12/19/22 Jose R Umana MD [address] [facility] [address] [place] [address] Referring Physician Cardiology 01/23/25 Kevin Mancera MD [address] [facility] [address] [place] [address] Referring Physician 01/31/25 documented as of this encounter
--- OUTSIDE RECORDS SUMMARY | 2025-03-31 14:07 | XMS_ITS | Encounter Summary ---
Author Organization Healthcare Address [address] [place] [address] Care Team Providers Care Tunnel Miner Name Role Phone Edwardo Sheehan MD Primary Care Provider [phone] Jose R Umana MD Unavailable [phone] Kevin Mancera MD Unavailable [phone] Encounter Details Date Type Department Care Team (Latest Contact Info) Description 02/26/2025 Travel Social History Tobacco Use Types Packs/Day Years [...] on file documented as of this encounter Plan of Treatment Upcoming Encounters Date Type Department Care Team (Late st Contact Info) Description 05/14/2025 12:30 PM EDT Office Visit [facility] [address] [facility] [address] [place] [address] Jose C Nicholson MD [address] [place] [address] 05/21/2025 9:[address] [facility] [address] [facility] 5th Floor [address] [place] [address] 05/21/2025 10:20 AM EDT Office Visit [facility] [address] [facility] 5th Floor [address] [place] [address] Cedrick Franz MD [address] [place] [id number] documented as of this encounter Visit Diagnoses Not on filedocumented in this encounter Additional Health Concerns Assessment Noted Time A fall risk assessment has been complete d for the patient 02/26/2025 9:04 AM EDT A Body Mass Index follow-up plan has been documented for the patient 02/28/2025 8:49 AM EDT documented as of this encounter Care Teams Tunnel Miner Relationship Specialty Start Date End Date Edwardo Sheehan MD [address] [place] [address] PCP - General 12/19/22 Jose R Umana MD [address] [facility] [address] [place] [address] Referring Physician Cardiology 01/23/25 Kevin Mancera MD [address] [facility] [address] [place] [address] Referring Physician 01/31/25 documented as of this encounter
--- OUTSIDE RECORDS SUMMARY | 2025-03-31 14:07 | XMS_ITS | Encounter Summary ---
Author Organization Healthcare Address [address] [place] [address] Care Team Providers Care Child Care Center Assistant Director Name Role Phone Edwardo Sheehan MD Primary Care Provider [phone] Jose R Umana MD Unavailable [phone] Kevin Mancera MD Unavailable [phone] Encounter Details Date Type Department Care Team (Late st Contact Info) Description 02/24/2025 Telephone [facility] [address] [facility] 5th Floor Wing [address], [address] [place] [address] Cedrick Franz MD [address] [facility] [address] [place] [address] Social History Tobacco Use Types Packs/Day Years [...] on file documented as of this encounter Functional Status * AUDIT-C Score [...] as of this encounter Miscellaneous Notes * Telephone Encounter - Archana Burciaga - 02/24/2025 2:36 PM EDT Per request from Dr. Franz, scheduled appt with Dr. Nicholson on Monday, 02/26 at 0830. Left msg for pt with appt info. documented in this encounter Plan of Treatment Upcoming Encounters Date Type Department Care Team (Late st Contact Info) Description 05/14/2025 12:30 PM EDT Office Visit [facility] Cardiothoracic [address] [place] [address], [address] [place] [address] Jose C Nicholson MD [address] [facility] [address] [place] [address] 05/21/2025 9:00 AM EDT Appointment [facility] Vascular Lab [address] [facility] 5th Floor Wing [address], [address] [place] [address] 05/21/2025 10:20 AM EDT Office Visit [facility] [address] [place] [address] [address] [place] [address] Cedrick Franz MD [address] [facility] [address] [place] [address] documented as of this encounter Visit Diagnoses Not on filedocumented in this encounter Additional Health Concerns Assessment Noted Time A fall risk assessment has been complete d for the patient 02/24/2025 12:59 PM EDT A Body Mass Index follow-up plan has been documented for the patient 02/25/2025 9:56 AM EDT documented as of this encounter Care Teams Child Care Center Assistant Director Relationship Specialty Start Date End Date Edwardo Sheehan MD [address] [place] [address] PCP - General 12/19/22 Jose R Umana MD [address] [facility] [address] [place], [place] [address] Referring Physician Cardiology 01/23/25 Kevin Mancera MD [address] [place] [address] [place], [place] [address] Referring Physician 01/31/25 documented as of this encounter
--- OUTSIDE RECORDS SUMMARY | 2025-03-31 14:07 | XMS_ITS | Encounter Summary ---
Author Organization Healthcare Address [address] [place] [address] Care Team Providers Care Head Charrer Name Role Phone Edwardo Sheehan MD Primary Care Provider [phone] Jose R Umana MD Unavailable [phone] Encounter Details Date Type Department Care Team (Late st Contact Info) Description 01/30/2025 Telephone [facility] [address] [facility] 5th Floor Wing [address], [address] [place] [address] Cedrick Franz MD [address] [facility] [address] [place] [address] Social History Tobacco Use Types Packs/Day Years Used Date Smoking Tobacco: Former Cigarettes Comments:Quit smoking 2018 s moked 1ppd for [...] Description 05/14/2025 12:30 PM EDT Office Visit [facility] Cardiothoracic [address], [address] [place] [address] Jose C Nicholson MD [address] [facility] [address] [place] [address] 05/21/2025 9:00 AM EDT Appointment [facility] Vascular Lab [address] [facility] 5th Floor Wing [address], [address] [place] [address] 05/21/2025 10:20 AM EDT Office Visit [facility] [address] [facility] 5th Floor Wing [address], [address] [place] [address] Cedrick Franz MD [address] [place] [address] documented as of this encounter Visit Diagnoses Not on filedocumented in this encounter Additional Health Concerns Assessment Noted Time A fall risk assessment has been complete d for the patient 01/30/2025 8:43 AM EDT A Body Mass Index follow-up plan has been documented for the patient 01/30/2025 10:39 AM EDT documented as of this encounter Care Teams Head Charrer Relationship Specialty Start Date End Date Edwardo Sheehan MD [address] [place] [address] PCP - General 12/19/22 Jose R Umana MD 1210 [facility] [address] [place] [address] Referring Physician Cardiology 01/23/25 documented as of this encounter
--- OUTSIDE RECORDS SUMMARY | 2025-03-31 14:07 | XMS_ITS | Encounter Summary ---
Author Organization Healthcare Address [address] [place] [address] Care Team Providers Care Cooker Process Cheese Name Role Phone Edwardo Sheehan MD Primary Care Provider [phone] Jose R Umana MD Unavailable [phone] Kevin Mancera MD Unavailable [phone] Encounter Details Date Type Department Care Team (Latest Contact Info) Description 02/24/2025 Travel Social History Tobacco Use Types Packs/Day [...] Rosy Willams documented as of this encounter Plan of Treatment Upcoming Encounters Date Type Department Care Team (Late st Contact Info) Description 05/14/2025 12:30 PM EDT Office Visit [facility] Cardiothoracic [address], [address] [place] [address] Jose C Nicholson MD [address] [place] [address] 05/21/2025 9:00 AM EDT Appointment [facility] Vascular Lab [address] [facility] 5th Floor Wing [address], [address] [place] [address] 05/21/2025 10:20 AM EDT Office Visit [facility] [address], [address] [place] [address] Cedrick Franz MD [address] [facility] [address] [place] [address] documented as of this encounter Visit Diagnoses Not on filedocumented in this encounter Additional Health Concerns Assessment Noted Time A fall risk assessment has been complete d for the patient 02/24/2025 12:59 PM EDT A Body Mass Index follow-up plan has been documented for the patient 02/25/2025 9:56 AM EDT documented as of this encounter Care Teams Cooker Process Cheese Relationship Specialty Start Date End Date Edwardo Sheehan MD [address] [place] [address] PCP - General 12/19/22 Jose R Umana MD [address] [facility] [address] [place], [place] [address] Referring Physician Cardiology 01/23/25 Kevin Mancera MD [address] [facility] [address] [place] [address] Referring Physician 01/31/25 documented as of this encounter
--- OUTSIDE RECORDS SUMMARY | 2025-03-31 14:08 | XMS_ITS | Encounter Summary ---
Author Organization Healthcare Address [address] [place] [address] Care Team Providers Care Junior Engineer Name Role Phone Edwardo Sheehan MD Primary Care Provider Jose R Umana MD Unavailable [phone] Kevin Mancera MD Unavailable [phone] Encounter Details Date Type Department Care Team (Latest Contact Info) Description 02/28/2025 Travel Social History Tobacco Use Types Packs/Day [...] Description 05/14/2025 12:30 PM EDT Office Visit [facility] Cardi[facility] [address], [facility] [address] [place] [address] Jose C Nicholson MD [address] [place] [address] 05/21/2025 9:00 AM EDT Appointment [facility] Vascular Lab [address] [facility] 5th Floor Wing [address], [address] [place] [address] 05/21/2025 10:20 AM EDT Office Visit [facility] Comprehensive Vascular Clinic [address] [facility] 5th Floor Wing [address], [address] [place] [address] Cedrick Franz MD [address] [place] [address] documented as of this encounter Visit Diagnoses Not on filedocumented in this encounter Additional Health Concerns Assessment Noted Time A fall risk assessment has been complete d for the patient 02/26/2025 9:04 AM EDT A Body Mass Index follow-up plan has been documented for the patient 02/28/2025 8:49 AM EDT documented as of this encounter Care Teams Junior Engineer Relationship Specialty Start Date End Date Edwardo Sheehan MD [address] [place] [address] PCP - General 12/19/22 Jose R Umana MD 1210 [facility] [address] [place] [address] Referring Physician Cardiology 01/23/25 Kevin Mancera MD [address] [facility] [address] [place] [address] Referring Physician 01/31/25 documented as of this encounter
--- OUTSIDE RECORDS SUMMARY | 2025-03-31 14:08 | XMS_ITS | Encounter Summary ---
Author Organization Healthcare Address [address] [place] [id number] Care Team Providers Care Systems Administrator Name Role Phone Edwardo Sheehan MD Primary Care Provider [phone] Jose R Umana MD Unavailable [phone] Kevin Mancera MD Unavailable [phone] Encounter Details Date Type Department Care Team (Latest Contact Info) Description 03/12/2025 Travel Social History Tobacco Use Types Packs/Day [...] as of this encounter Functional Status * Calculated C-SSRS Risk Score (Lifetime/Recent) Answer Date of Assessment Author No Risk Indicated 03/12/2025 7:11 PM EDT Sebastien Valderrama, RN * Question Answer Date of Assessment Author 1. Wish to be (Past 1 Month) No 025 7:11 PM EDT Cate Valderrama, RN 2. Non-Specific Active Suici arnaldo Thoughts (Past 1 Month) No 03/12/2025 7:11 PM EDT Cate Valderrama, RN 6. Suicidal Behavior (Lifetime) No 7:11 PM EDT Cate Valderrama, RN documented as of this encounter Plan of Treatment Upcoming Encounters Date Type Department Care Team (Late st Contact Info) Description 05/14/2025 12:30 PM EDT Office Visit [facility] Cardiothoracic [address], [address] [place] [address] Jose C Nicholson MD [address] [facility] [address] [place] [address] 05/21/2025 9:[address] [facility] Vascular Lab [address] [facility] 5th Floor [address], [address] [place] [address] 05/21/2025 10:20 AM EDT Office Visit [facility] Comprehensive [facility]ascular Clinic [address] [place] [address] Cedrick Franz MD [address] [facility] [address] [place] [address] documented as of this encounter Visit Diagnoses Not on filedocumented in this encounter Additional Health Concerns Assessment Noted Time A fall risk assessment has been complete d for the patient 02/26/2025 9:04 AM EDT A Body Mass Index follow-up plan has been documented for the patient 03/14/2025 11:50 AM EDT documented as of this encounter Care Teams Systems Administrator Relationship Specialty Start Date End Date Edwardo Sheehan MD [address] [place] [address] PCP - General 12/19/22 Jose R Umana MD 1210 [facility] [address] [place] [address] Referring Physician Cardiology 01/23/25 Kevin Mancera MD [address] [facility] [address] [place] [address] Referring Physician 01/31/25 documented as of this encounter
--- OUTSIDE RECORDS SUMMARY | 2025-03-31 14:08 | XMS_ITS | Encounter Summary ---
Author Organization Healthcare Address [address] [place] [address] Care Team Providers Care Ethylbenzene Oxidizer Name Role Phone Edwardo Sheehan MD Primary Care Provider [phone] Jose R Umana MD Unavailable [phone] Kevin Mancera MD Unavailable [phone] Encounter Details Date Type Department Care Team (Latest Contact Info) Description 03/11/2025 Travel Social History Tobacco Use Types Packs/Day [...] Description 05/14/2025 12:30 PM EDT Office Visit [facility] Cardi[facility] [address], [facility] [address] [place] [address] Jose C Nicholson MD [address] [place] [address] 05/21/2025 9:00 AM EDT Appointment [facility] Vascular Lab [address] [facility] 5th Floor [address], [address] [place] [address] 05/21/2025 10:20 AM EDT Office Visit [facility] Comprehensive [facility]ascular Clinic [address] [facility] 5th Floor [address], [address] [place] [address] Cedrick Franz MD [address] [place] [address] documented as of this encounter Visit Diagnoses Not on filedocumented in this encounter Additional Health Concerns Assessment Noted Time A fall risk assessment has been complete d for the patient 02/26/2025 9:04 AM EDT A Body Mass Index follow-up plan has been documented for the patient 02/28/2025 8:49 AM EDT documented as of this encounter Care Teams Ethylbenzene Oxidizer Relationship Specialty Start Date End Date Edwardo Sheehan MD [address] [place] [address] PCP - General 12/19/22 Jose R Umana MD 1210 [facility] [address] [place] [address] Referring Physician Cardiology 01/23/25 Kevin Mancera MD [address] [facility] [address] [place] [address] Referring Physician 01/31/25 documented as of this encounter
--- OUTSIDE RECORDS SUMMARY | 2025-03-31 14:08 | XMS_ITS | Encounter Summary ---
Author Organization Healthcare Address [address] [place] [address] Care Team Providers Care Rail Grinder Name Role Phone Edwardo Sheehan MD Primary Care Provider [phone] Jose R Umana MD Unavailable [phone] Kevin Mancera MD Unavailable [phone] Encounter Details Date Type Department Care Team (Latest Contact Info) Description 03/04/2025 Travel Social History Tobacco Use Types Packs/Day [...] Description 05/14/2025 12:30 PM EDT Office Visit [facility] Cardi[facility] [address], [facility] [address] [place] [address] Jose C Nicholson MD [address] [place] [address] 05/21/2025 9:00 AM EDT Appointment [facility] Vascular Lab [address] [facility] 5th Floor [address], [address] [place] [address] 05/21/2025 10:20 AM EDT Office Visit [facility] Comprehensive [facility]ascular Clinic [address] [facility] 5th Floor [address], [address] [place] [address] Cedrick Franz MD [address] [place] [address] documented as of this encounter Visit Diagnoses Not on filedocumented in this encounter Additional Health Concerns Assessment Noted Time A fall risk assessment has been complete d for the patient 02/26/2025 9:04 AM EDT A Body Mass Index follow-up plan has been documented for the patient 02/28/2025 8:49 AM EDT documented as of this encounter Care Teams Rail Grinder Relationship Specialty Start Date End Date Edwardo Sheehan MD [address] [place] [address] PCP - General 12/19/22 Jose R Umana MD [address] [facility] [address] [place] [address] Referring Physician Cardiology 01/23/25 Kevin Mancera MD [address] [facility] [address] [place] [address] Referring Physician 01/31/25 documented as of this encounter
--- OUTSIDE RECORDS SUMMARY | 2025-03-31 14:08 | XMS_ITS | Encounter Summary ---
Author Organization Healthcare Address [address] [place] [address] Care Team Providers Care Benzene Washer Operator Name Role Phone Edwardo Sheehan MD Primary Care Provider [phone] Jose R Umana MD Unavailable [phone] Kevin Mancera MD Unavailable [phone] Encounter Details Date Type Department Care Team (Latest Contact Info) Description 03/13/2025 Travel Social History Tobacco Use Types Packs/Day [...] declined 03/14/2025 How often do you attend christianity or confucianism serv ices? Patient declined 03/14/2025 Do you belong to any clubs o r organizations such as christianity groups, unions, fraternal or athletic groups, or [...] drinks on one occasion? Patient declined 03/14/2025 [facility] - Occupational Stress Questionnaire Answer Date [...] Recorded In the past 12 months has e electric, gas, oil, or water company [...] Risk Indicated 03/13/2025 7:45 PM EDT Jemal Laughlin, ABHILASH * Question Answer Date of Assessment Author 1. Wish to be (Past 1 Month) No 03/13/2025 7:45 PM EDT Jemal Fields, ABHILASH 2. Non-Specific Active Suici arnaldo Thoughts (Past 1 Month) No 03/13/2025 7:45 PM EDT John Fields RN 6. Suicidal Behavior (Lifetime) No 7:45 PM EDT Jemal Fields RN documented as of this encounter Plan of Treatment Upcoming Encounters Date Type Department Care Team (Late st Contact Info) Description 05/14/2025 12:30 PM EDT Office Visit [facility] Cardiothoracic [address], [address] [place] [address] Jose C Nicholson MD [address] [facility] [address] [place] [address] 05/21/2025 9:00 AM EDT Appointment [facility] Vascular Lab [address] [facility] 5th Floor [address] [place] [address] 05/21/2025 10:20 AM EDT Office Visit [facility] Comprehensive Vascular Clinic [address] [facility] 5th Floor [address] [place] [address] Cedrick Franz MD [address] [facility] [address] [place] [address] documented as of this encounter Visit Diagnoses Not on filedocumented in this encounter Additional Health Concerns Assessment Noted Time A fall risk assessment has been complete d for the patient 02/26/2025 9:04 AM EDT A Body Mass Index follow-up plan has been documented for the patient 03/14/2025 11:50 AM EDT documented as of this encounter Care Teams Benzene Washer Operator Relationship Specialty Start Date End Date Edwardo Sheehan MD [address] [place] [address] PCP - General 12/19/22 Jose R Umana MD 1210 [facility] [address] [place] [address] Referring Physician Cardiology 01/23/25 Kevin Mancera MD [address]20 [facility] [address] [place] [address] Referring Physician 01/31/25 documented as of this encounter
--- OUTSIDE RECORDS SUMMARY | 2025-03-31 14:08 | XMS_ITS | Clinical Summary ---
Author Organization [facility] Address [address] [place] [address] Care Team Providers Care Saw Tailer Name Role Phone Edwardo Sheehan MD Primary Care Provider [phone] Jose R Umana MD Unavailable [phone] Kevin Mancera MD Unavailable [phone] Allergies No known active allergies Medications PARoxetine (Paxil) 20 MG tablet Take 1 tablet by mouth daily. Active ALPRAZolam (Xanax) 0.5 MG tablet Take 1 tablet by mouth 2 times a day. Active Multiple Vitamins-Deuel als (CENTRUM SILVER 50+WOMEN PO) Take by mouth. Active lisinopril 20 MG tablet Take 1 tablet by mouth nightly. Active bisoprolol (Zebeta) 10 MG tablet Take 1 tablet by mouth nightly. Active cholecalcifero l (D-5000) 5,000 Units tablet Take 1 tablet by mouth 1 time each day. Active atorvastatin (Lipitor) 20 MG tablet Take 1 tablet by mouth daily. 5 Active aspirin 81 MG EC tablet Take 1 tablet by mouth daily. 30 tablet 11 5 02/28/20 26 Active clopidogrel (Plavix) 75 MG tablet Take 1 tablet by mouth daily. 30 tablet 11 5 02/28/20 26 Active hydroCHLOROthi azide (HYDRODiuril) 25 MG tablet Take 2 tablets by mouth daily. Active naloxone (Narcan) 4 mg/0.1 mL nasal spray 1. Give 1 spray in nostril for no/slow breathing or cannot wake after opioid use 2. Call 911 3. Repeat in other nostril if symptoms continue 1 each 5 Active atorvastatin (Lipitor) 40 MG tablet Take 1 tablet by mouth nightly. 30 tablet 11 5 Active atorvastatin (Lipitor) 40 MG tablet Take 1 tablet (40 mg total) by mouth every night. 30 tablet 11 3 03/13/20 25 Discontinue d(Entered in Error) apixaban (Eliquis) 5 MG tablet Take 1 tablet (5 mg total) by mouth 2 (two) times a day. 60 tablet 2 3 03/13/20 25 Discontinue d(Entered in Error) lisinopril-hyd roCHLOROthiazi de 20-25 MG tablet Take 1 tablet by mouth daily. 5 03/13/20 Discontinue d(Entered in Error) VITAMIN D, ERGOCALCIFEROL , PO Take by mouth. 03/13/20 Discontinue d(Entered in Error) apixaban (Eliquis) 5 MG tablet Take 1 tablet by mouth 2 times a day. 03/14/20 Discontinue d(Stop Taking at Discharge) oxyCODONE (Roxicodone) 5 MG immediate release tablet Take 1 tablet by mouth every 6 hours as needed for moderate pain or severe pain for up to 3 days. 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) (Primary Dx); 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); Cerebral venous sinus thrombosis 03/19/2025 Travel 03/13/2025 7:30 AM EDT - 03/13/2025 10:45 AM EDT Surgery [facility] RO[facility] [address] [place] [address] Cedrick Franz MD right TCAR; shockwave [71871 (CPT )] 03/13/2025 7:28 AM EDT Anesthesia Event [facility] [address] [place] [address] Jaime De Paz DO Hardiman, Steven J, CRNA 03/13/2025 Travel 03/12/2025 10:35 AM EDT - 03/12/2025 11:35 AM EDT Surgery Cardiac Assistant Buyer [address] [place] [address] Dion Moeller MD Left heart catheterization [79132 (CPT )] 03/12/2025 10:26 AM EDT - 03/14/2025 12:15 PM EDT Hospital Encounter [facility] Inpatient [address] [place] [address] Dion Moeller MD Tyagi, Samuel C, MD 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) (Primary Dx); 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); Asymptomatic stenosis of right carotid artery Discharge Disposition: Home or Self Care 03/12/2025 Travel 03/11/2025 Travel 03/10/2025 1:35 PM EDT - 03/10/2025 11:59 PM EDT Hospital Encounter [facility] Pulmonary Function Testing [address] [place] [address] 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); Asymptomatic stenosis of right carotid artery Discharge Disposition: Home or Self Care 03/10/2025 Travel 03/04/2025 8:00 AM EDT Pre-Admission Testing [facility] Pre-op Clinic [address] [place] [address] 03/04/2025 Travel 03/03/2025 Travel 02/28/2025 Travel 02/27/2025 Telephone [facility] [address] [place] [address] Cedrick Franz MD HCN Clinical Concern/Question 02/27/2025 Telephone [facility] Vascular Clinic [address] [place] [address] Ca Saravia RN 02/27/2025 Orders Only [facility] Vascular [address] [place] [address] Cedrick Franz MD 02/26/2025 8:30 AM EDT Office Visit [facility] Cardiothoracic [address] [place] [address], [address] [place] [address] Jose C Nicholson MD 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) (Primary Dx); Asymptomatic stenosis of right carotid artery 02/26/2025 Travel 02/24/2025 1:00 PM EDT Office Visit [facility] Vascular [address] [place] [address] Cedrick Franz MD 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) (Primary Dx); Hypertension, unspecified type; Asymptomatic stenosis of right carotid artery 02/24/2025 Telephone [facility] Vascular [address], [address] [place] [address] Cedrick Franz MD 02/24/2025 Travel 01/30/2025 8:40 AM EDT Consult [facility] Cardiothoracic [address] [place] [address], [address] [place] [address] Cheng Hammond MD 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) (Primary Dx); Hypertension, unspecified type; Cerebral venous sinus thrombosis 01/30/2025 Telephone [facility] Vascular [address] [place] [address] Cedrick Franz MD 01/30/2025 Travel 01/27/2025 Travel 01/14/2025 Orders Only External Location [address] [place] [phone] Provider, External 01/14/2025 Orders Only External Location [address] [place] [address] Provider, External 01/02/2025 Community Orders Community Practice [address] [place] [address] Kevin Mancera MD 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) (Primary Dx) from Last 3 Months Immunizations Immunization Administration Dates Next Due Influenza Vaccine, Quadrivalent, Adjuvanted 03/2021 Influenza, High-dose, Split Virus, Trivalent, Injectable, preservative free 08/07/2024,07/26/2019 Influenza, high-dose, quadrivalent 07/22/2022, Influenza, seasonal, injecta ble, preservative free 07/20/2016,06/23/2015,06/19/2014 Pneumococcal Conjugate PCV 13 09/19/2019 Pneumococcal Polysaccharide PPV23 07/03/2023 Zoster, Recombinant 09/19/2019 Family History Medical History Relation Name Comments Cancer Brother Diabetes type II Brother Sudden Brother Heart disease Father Hypertension Mother Diabetes type II Sister Anesthesia problems Neg Hx Malig Hyperthermia Neg Hx Relation Name Status Comments Brother Father Mother Sister Social History Tobacco Use Types Packs/Day Years [...] declined 03/14/2025 How often do you attend roman catholic or evangelical serv ices? Patient declined 03/14/2025 Do you belong to any clubs o r organizations such as roman catholic groups, unions, fraternal or athletic groups, or [...] drinks on one occasion? Patient declined 03/14/2025 [facility] - Occupational Stress [...] the past 12 months has th e [employer], gas, oil, or water company threatened to shut off services in your home? Patient declined 03/14/2025 Comments No Sex and Gender Information Value Date Recorded Sex Assigned at Not on file Legal Sex Female 7:38 PM EDT Gender Identity Not on file Sexual Orientation Not on file Last Filed Vital Signs Vital Sign Reading Time Taken Comments Blood Pressure 118/67 03/19/2025 12:19 PM EDT Pulse 47 03/19/2025 12:19 PM EDT Temperature 36.8 C (98.3 F) 03/14/2025 8:00 AM EDT Respiratory Rate 18 03/14/2025 10:0 0 AM EDT Oxygen Saturation 100% 03/19/2025 12: 19 PM EDT Inhaled Oxygen Concentration - - Weight 69.8 kg (153 lb 14.1 oz) 025 12:05 PM EDT Height 167.6 cm (5' 6 ) 03/19/2025 12:0 5 PM EDT Body Mass Index 24.84 03/19/2025 12:05 PM EDT Plan of Treatment Upcoming Encounters Date Type Department Care Team (Late st Contact Info) Description 05/14/2025 12:30 PM EDT Office Visit [facility] Cardiothoracic [address], [address] [place] [address] Jose C Nicholson MD [address] [place] [address] 05/21/2025 9:00 AM EDT Appointment [facility] Vascular Lab [address] 5th Floor [address] [place] [address] 05/21/2025 10:20 AM EDT Office Visit [place] [facility] [address] 5th Floor [address] [place] [address] Cedrick Franz MD [address] [facility] [address] [place] [address] Health Maintenance Due Date Last Done Comments [facility]-Bone Density Scan 1954 [facility]-Hepatitis C Screening 1954 [facility]-Medicare Annual Wellness (AWV) 1955 [facility]-Infant/Child/Adol SDOH Screenings 1954 [facility]-DTaP,Tdap,and Td Vaccines (1 - Tdap) 1973 CT Colonography 1999 Colonoscopy 1999 FIT 1999 FOBT 1999 Sigmoidoscopy 1999 [facility]-Breast Cancer Screening 2004 [facility]-Zoster Vaccines (2 of 2) 11/14/2019 09/19/2019 [id number] Vaccine (3 - season) 2024 10/08/2021, 12/19/2020 [facility]-Influenza Vaccine (#1) 05/19/202508/07, 07/22/2022, 07/25/2021, Additional history exists [facility]- SDOH Screenings 09/13/2025 [facility]-Adult SDOH Screenings 09/13/2025 03/14/2025 [facility]-Depression Screening 03/19/2026 03/19/2025 FIT-DNA 10/17/2026 10/17/2023 [facility]-Colorectal Cancer Screening 10/17/2026 [facility]-RSV Vaccine: 60+ Years or (1 - 1-dose 75+ series) 2029 [facility]-Pneumococcal Vaccine: 50+ Years Completed 07/03/2023, 09/19/2019 HPV Vaccines Aged Out No longer eligi ble based on patient's age to complete this topic [facility]-HIB Vaccines Aged Out No longer e ligible based on patient's age to complete this topic [facility]-Hepatitis A Vaccines Aged Out No longer eligible based on patient's age to complete this topic [facility]-IPV Vaccines Aged Out No longer e ligible based on patient's age to complete this topic [facility]-Rotavirus Vaccines Aged Out No lo nger eligible based on patient's age to complete this topic Medical Devices Implanted Type Area General Production Manager Device Identifier Shelf Expiration Date Model / Serial / Lot Stent Transcarotid Enroute Tapered [id number] - [id number] Implanted:Qty: 1 on 03/13/2025 by Cedrick Franz MD at [facility] Right: [id number] 10/18/2027 [id number] / / [id number] Procedures Procedure Name Priority Date/Time Associated Diagnosis Comments PHOSPHORUS, PLASMA Pending Discharge 03/14/2025 12:24 AM EDT MAGNESIUM, PLASMA Pending Discharge 03/14/2025 12:24 AM EDT BASIC METABOLIC PANEL, PLASMA Pending Discharge 03/14/2025 12:24 AM EDT CBC W/O DIFFERENTIAL Pending Discharge 03/14/2025 12:24 AM EDT HEMOGLOBIN [...] UNSOLICITED RESULTS Routine 03/13/2025 8:39 AM EDT BLOOD GAS PANEL, ARTERIAL Pending Discharge 03/13/2025 8:18 AM EDT TYPE AND SCREEN Pending Discharge 03/13/2025 8:18 AM EDT ANESTHESIA ARTERIAL LINE PLACEMENT Routine 03/13/2025 8:00 AM EDT PB ANESTHESIA PLACEHOLDER Routine 03/13/2025 7:45 AM EDT UT AN ELECTIVE ENDOTRACHEAL AIRWAY Routine 03/13/2025 7:45 AM EDT UT TCAT IV STENT CRV CRTD ART EMBOLIC PROTECJ 03/13/2025 7:15 AM EDT Asymptomatic stenosis of right carotid artery BASIC METABOLIC PANEL, PLASMA Routine 03/13/2025 12:19 AM EDT CBC W/O DIFFERENTIAL Routine 03/13/2025 12:19 AM EDT CORONARY ANGIOGRAPHY Routine 03/12/2025 1:34 PM EDT 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) Asymptomatic stenosis of right carotid artery LEFT HEART CATHETERIZATION Routine 03/12/2025 1:34 PM EDT 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) Asymptomatic stenosis of right carotid artery POCT CREATININE ISTAT UNSOLICITED RESULTS Routine 03/12/2025 11:04 AM EDT BASIC METABOLIC PANEL, PLASMA STAT 03/12/2025 10:55 AM EDT CBC W/O DIFFERENTIAL STAT 03/12/2025 10:55 AM EDT HC DIFFUSING CAPACITY - CARBON MONOXIDE DIFFUSING CAPACITY Routine 03/10/2025 3:29 PM EDT 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 WBC Count 8.64 3.70 - 10.30 10*3/uL LAB HEMATOLOGY METHOD 03/14/2025 1:05 AM EDT [facility] RBC Count 3.43(L) 3.90 - 5.20 10*6/uL LAB HEMATOLOGY METHOD 03/14/2025 1:05 AM EDT [facility] HGB 9.9(L) 11.2 - 15.7 g/dL LAB HEMATOLOGY METHOD 03/14/2025 1:05 AM EDT [facility] HCT 30.0(L) 34.0 - 45.0 % LAB HEMATOLOGY METHOD 03/14/2025 1:05 AM EDT [facility] Platelet Count 153(L) 155 - 369 10*3/uL LAB HEMATOLOGY METHOD 03/14/2025 1:05 AM EDT [facility] MCV 88 79 - 98 fL LAB HEMATOLOGY METHOD 03/14/2025 1:05 AM EDT [facility] MCH 28.9 26.0 - 32.0 pg LAB HEMATOLOGY METHOD 03/14/2025 1:05 AM EDT [facility] MCHC 33.0 30.7 - 35.5 g/dL LAB HEMATOLOGY METHOD 03/14/2025 1:05 AM EDT [facility] RDW 14.5 11.5 - 14.5 % LAB HEMATOLOGY METHOD 03/14/2025 1:05 AM EDT [facility] MPV 12.3 8.8 - 12.5 fL LAB HEMATOLOGY METHOD 03/14/2025 1:05 AM EDT [facility] nRBC 0.0 <=0.0 per 100 WBCs LAB HEMATOLOGY METHOD 03/14/2025 1:05 AM EDT [facility] Blood Venous blood specimen / Unknown Venipuncture / Unknown 03/14/2025 12:24 AM EDT 03/14/2025 12:41 AM EDT us Cedrick Franz MD LAB BLOOD ORDERABLES Final Res ult [facility] [address] [place] [address] * Phosphorus (03/14/2025 12:24 AM EDT) Phosphorus, Plasma 2.7 2.5 - 4.5 mg/dL 03/14/2025 1:04 AM EDT [facility] Blood Venous blood specimen / Unknown Venipuncture / Unknown 03/14/2025 12:24 AM EDT 03/14/2025 12:38 AM EDT us Cedrick Franz MD LAB BLOOD ORDERABLES Final Res ult Performing Organization Address [facility]/ZIP Co de Phone Number [facility] [address] [place] [address] * (ABNORMAL) Magnesium (03/14/2025 12:24 AM EDT) Magnesium, Plasma 1.8(L) 1.9 - 2.4 mg/dL 03/14/2025 1:04 AM EDT [facility] Blood Venous blood specimen / Unknown Venipuncture / Unknown 03/14/2025 12:24 AM EDT 03/14/2025 12:38 AM EDT us Cedrick Franz MD LAB BLOOD ORDERABLES Final Res ult Performing Organization Address City/[facility]/ZIP Co de Phone Number [facility] [address] [place] [address] * (ABNORMAL) Basic metabolic panel (03/14/2025 12:24 AM EDT) Only the most recent of3 resultswithin the time period is included. Glucose, Plasma 129(H) 74 - 99 mg/dL 03/14/2025 1:04 AM EDT [facility] BUN, Plasma 16 8 - 23 mg/dL 03/14/2025 1:04 AM EDT [facility] Creatinine, Plasma 0.83 0.60 - 1.10 mg/dL 03/14/2025 1:04 AM EDT [facility] BUN/Creatinine Ratio 19 03/14/2025 1:04 AM EDT [facility] Sodium, Plasma 136 136 - 145 mmol/L 03/14/2025 1:04 AM EDT [facility] Potassium, Plasma 4.1 3.6 - 4.9 mmol/L 03/14/2025 1:04 AM EDT [facility] Chloride, Plasma 104 97 - 107 mmol/L 03/14/2025 1:04 AM EDT [facility] CO2, Plasma 22 22 - 29 mmol/L 03/14/2025 1:04 AM EDT [facility] Anion Gap 10 6 - 16 mmol/L 03/14/2025 1:04 AM EDT [facility] Total Calcium, Plasma 8.7(L) 8.9 - 10.2 mg/dL 03/14/2025 1:04 AM EDT [facility] eGFRcr 75.9 mL/min/1.7 3m*2 03/14/2025 1:04 AM EDT [facility] Comment:Reported eGFRcr in m L/min/1.73m2 is based the CKD-EPI 2020 equation that does not use a race coefficient. Blood Venous blood specimen / Unknown Venipuncture / Unknown 03/14/2025 12:24 AM EDT 03/14/2025 12:38 AM EDT us Cedrick Franz MD LAB BLOOD ORDERABLES Final Res ult [facility] [address] [place] [address] * (ABNORMAL) Hemoglobin and hematocrit, blood (03/13/2025 10:41 PM EDT) [facility] Signature HGB 9.8(L) 11.2 - 15.7 g/dL LAB HEMATOLOGY METHOD 03/13/2025 10:57 PM EDT [facility] HCT 29.8(L) 34.0 - 45.0 % LAB HEMATOLOGY METHOD 03/13/2025 10:57 PM EDT [facility] Blood Arterial blood specimen / Unknown Venipuncture / Unknown 03/13/2025 10:41 PM EDT 03/13/2025 10:50 PM EDT Cedrick Franz MD LAB BLOOD ORDERABLES Final Res ult Performing Organization Address City/[facility]/ZIP [place] [address] * Shaila auris Surveillance by PCR (03/13/2025 6:09 PM EDT) Shaila auris PCR Result Not Detected Not Detected 03/14/2025 1:[address] [facility] Swab (Axilla and Groin) Non-blood Collection / Unknown 03/13/2025 6:09 PM EDT 03/13/2025 6:[address] [facility] - 03/14/2025 1:29 PM EDT This PCR assay was developed and its performance characteristics determined by [facility] as appropriate for clinical purposes. This assay has not been cleared or approved by the FDA, but is performed in a CLIA regulated laboratory that is qualified to perform high-complexity testing. Cedrick Franz MD LAB MICROBIOLOGY - GENERAL ORD ERABLES Final Result Performing Organization Address [facility] [place] [address] * Multi Drug Resistance Test (03/13/2025 6:09 PM EDT) Culture No growth at day 1 03/14/2025 8:[address] [facility] Swab (Nares and Frances Rectal) Non-blood Collection / Unknown 03/13/2025 6:09 PM EDT 03/13/2025 6:17 PM EDT Narrative [facility] - 03/14/2025 8:22 PM EDT This test was developed and its performance characteristics determined by the [facility]. Although the media is FDA-approved, it is not FDA-approved for all specimen types submitted. The FDA has determined that such clearance or approval is not necessary. This test is used for surveillance purposes. It should not be regarded as investigational or for research. The [facility] is certified under the Clinical Laboratory Improvement Amendments of 1988 (CLIA-88) as qualified to perform high complexity clinical laboratory testing. Cedrick Franz MD LAB MICROBIOLOGY - GENERAL ORD ERABLES Final Result [facility] [address] [place] [address] * FL Less than 1 Hour Intraoperative (03/13/2025 2:53 PM EDT) Narrative IM[facility] - 03/13/2025 2:54 PM EDT Images were obtained for surgical purposes. See Cedrick Franz's surgical note in the patient's chart for the findings. Cedrick Franz MD IMG FLUOROSCOPY PROCEDURES Fin al Result Performing Organization Address [facility] Co de Phone Number IMAGING * POCT ACT (03/13/2025 8:39 AM EDT) ACT+ (HIGH RANGE) 266 68 - 600 Seconds 03/13/2025 12:23 PM EDT [facility] [employer] ID Arturo Chandra 03/13/2025 12:23 PM EDT [facility] ACT Device ID [id number] 03/13/2025 12:23 PM EDT [facility]ALTH[facility]ARE LAB Comment 03/13/2025 12:23 PM EDT [facility] Comment: ACT performed by [...] UNSOLICITED RESULTS Final Result Performing Organization Address [facility] Co de Phone Number HEALTHCARE LAB [address] LAB [address] [place] [address] * Type and screen (03/13/2025 8:18 AM EDT) ABO/Rh A Positive 03/13/2025 8:11 AM EDT BLOOD BANK Antibody Screen Negative 03/13/2025 8:11 AM EDT BLOOD BANK Specimen Expiration 03/16/2025 23:59 03/13/2025 8:11 AM EDT BLOOD BANK Blood Venous blood specimen / Unknown Venipuncture / Unknown 03/13/2025 8:18 AM EDT 03/13/2025 8:28 AM EDT us Lenin Farmer TEA AND SPICE SUPERVISOR LAB BLOOD BANK TEST ORDER AMBROSE Final Result BLOOD BANK [address] [place] [address], * (ABNORMAL) Blood gas panel, arterial (03/13/2025 8:18 AM EDT) pH, Arterial 7.45(H) 7.31 - 7.42 LAB HEMATOLOGY METHOD 03/13/2025 8:46 AM EDT [facility] pCO2, Arterial 35 35 - 48 mmHg LAB HEMATOLOGY METHOD 03/13/2025 8:46 AM EDT [facility] pO2, Arterial 272 >70 mmHg LAB HEMATOLOGY METHOD 03/13/2025 8:46 AM EDT [facility] SO2, Measured, Arterial 98 94 - 98 % LAB HEMATOLOGY METHOD 03/13/2025 8:46 AM EDT [facility] Base Excess, Arterial 0.1 -2.0 - 3.0 mmol/L LAB HEMATOLOGY METHOD 03/13/2025 8:46 AM EDT [facility] Bicarbonate, Calculated, Arterial 24 22 - 26 mmol/L LAB HEMATOLOGY METHOD 03/13/2025 8:46 AM EDT [facility] Hematocrit, Whole Blood 33.2(L) 34.0 - 45.0 % LAB HEMATOLOGY METHOD 03/13/2025 8:46 AM EDT [facility] Sodium, Whole Blood 140 136 - 145 mmol/L LAB HEMATOLOGY METHOD 03/13/2025 8:46 AM EDT [facility] Potassium, Whole Blood 3.2(L) 3.6 - 4.9 mmol/L LAB HEMATOLOGY METHOD 03/13/2025 8:46 AM EDT [facility] Chloride, Whole Blood 108(H) 97 - 107 mmol/L LAB HEMATOLOGY METHOD 03/13/2025 8:46 AM EDT [facility] Glucose, Whole Blood 103(H) 74 - 99 mg/dL LAB HEMATOLOGY METHOD 03/13/2025 8:46 AM EDT [facility] Ionized Calcium, Whole Blood 4.4(L) 4.6 - 5.1 mg/dL LAB HEMATOLOGY METHOD 03/13/2025 8:46 AM EDT [facility] Lactate, Arterial, Whole Blood 0.8 0.5 - 1.6 mmol/L LAB HEMATOLOGY METHOD 03/13/2025 8:46 AM EDT [facility] Blood Arterial blood specimen / Unknown Arterial Puncture / Unknown 03/13/2025 8:18 AM EDT 03/13/2025 8:43 AM EDT us Lenin Farmer CRNA LAB BLOOD ORDERABLES Barbara tianna Result [facility] [address] [place] [address] * PB ANESTHESIA NON-TIMED PROCEDURE PLACEHOLDER (03/13/2025 8:00 AM EDT) Narrative Lenin Farmer CRNA - 03/13/2025 8:00 AM EDT Lenin [...] Performed: Anesthesiologist Anesthesiologist: Jaime De Paz DO TEA AND SPICE SUPERVISOR: Lenin Farmer CRNA us Jaime De Paz DO ANESTHESIA ORDERABLES Final Re sult * UT AN ELECTIVE ENDOTRACHEAL AIRWAY, PB ANESTHESIA PLACEHOLDER (03/13/2025 7:45 AM EDT) Narrative Lenin Farmer CRNA - 03/13/2025 7:45 AM EDT Lenin Farmer CRNA 03/13/2025 8:30 AM Airway Date/Time: 03/13/2025 7:45 AM Reason: elective Airway not difficult General Information and Staff Patient location during procedure: [place] Anesthesiologist: Jaime De Paz DO TEA AND SPICE SUPERVISOR: Lenin Farmer CRNA Performed: TEA AND SPICE SUPERVISOR Patient Condition Indications for airway management: anesthesia [...] ETT to lips (cm): 21 us Jaime De Paz DO ANESTHESIA ORDERABLES Final Re sult * LEFT HEART CATHETERIZATION, CORONARY ANGIOGRAPHY (03/12/2025 [...] The patient was transferred back to the parking lot laborer holding area in good condition. Coronary [...] * POCT creatinine (03/12/2025 11:04 AM EDT) [facility] Creatinine, Point of Care 1.1 0.6 - 1.1 mg/dL 03/12/2025 11:08 AM EDT [facility] POCT eGFR 54 mL/min/1. 73m*2 03/12/2025 11:08 AM EDT [facility] [employer] ID Paresh Khan 03/12/2025 11:08 AM EDT [facility] Device ID [id number] 03/12/2025 11:08 AM EDT [facility] Comment 03/12/2025 11:08 AM EDT [facility] Comment:Testing performed on i-STAT at the point of care. Reported eGFRcr in mL/min/1.73m2 is based the CKD-EPI 2020 equation that does not use a race coefficient. Blood Venous blood specimen / Unknown 03/12/2025 11:04 AM EDT 03/12/2025 11:08 AM EDT us Dion Moeller MD LAB POINT OF CARE T EST DOCKED DEVICE UNSOLICITED RESULTS Final Result [facility] [address] LAB [address] [place] [address] * (ABNORMAL) Pulmonary function testing (03/10/2025 3:29 PM EDT) [id number] 3.25 2.20 - 3.89 L VYAIRE PFT [id number] 3.11 2.20 - 3.89 L VYAIRE PFT FVC PRED 3.02 VYAIRE PFT FVC LLN 2.20 VYAIRE PFT FVCPREZSCORE 0.17 VYAIRE PFT FVCPRE%PRED 103 % % VYAIRE PFT FVCPOSTZSCORE 0.44 VYAIRE PFT FVCPOST%PRED 108 % % VYAIRE PFT FVCCHNG 143.00 VYAIRE PFT FVC%CHG 5 % % VYAIRE PFT FVC PREDAUTH US_Quanjer GLI (2011) VYAIRE PFT FVC Z-SCORE 0.17 0.44 VYAIRE PFT UUY17QHPK 2.79 1.69 - 2.94 L VYAIRE PFT FEV1 PRE 2.59 1.69 - 2.94 L VYAIRE PFT FEV1 PRED 2.33 VYAIRE PFT FEV1 LLN 1.69 VYAIRE PFT [id number] 0.68 VYAIRE PFT FEV1_Pre%Pred 111 % % VYAIRE PFT [id number] 1.25 VYAIRE PFT TGL3FCWM%PRED 120 % % VYAIRE PFT ZIW8QZME 208.50 VYAIRE PFT FEV1%CHG 8 % % VYAIRE PFT FEV1 PREDAUTJell[facility] (2011) VYAIRE PFT FEV1 Z-SCORE 0.68 1.25 VYAIRE PFT IJZ7OVH7HBFH 85.93 64.40 - 89.25 % VYAIRE PFT FEV1/FVC PRE 83.18 64.40 - 89.25 % VYAIRE PFT TMR5KYFKJMU 78 VYAIRE PFT INH6HFNGLE 64 VYAIRE PFT WPW3ZBOYHNPVKMHC 0.75 VYAIRE PFT QIA4ZCKUGJ%PRED 107 % % VYAIRE PFT DMT6KKYOOYFGLIRYX 1.15 VYAIRE PFT IEZ5BIUTCRG%PRED 111 % % VYAIRE PFT ZJN5CVCRPXX 2,754 VYAIRE PFT SAH1FNI%CHG 3 % % VYAIRE PFT WPH6OWWTXTAP [facility] (2011) VYAIRE PFT XJO0KRTQPQVGF 1 1 VYAIRE PFT FRB00-05%_POST 3.47(A) 0.88 - 3.41 L/s VYAIRE PFT MNF84-46% PRE 2.78 0.88 - 3.41 L/s VYAIRE PFT NCW12-30%_Pred 1.92 VYAIRE PFT LSS7558%LLN 0.88 VYAIRE PFT BXY1959%PREZSCORE 1.01 VYAIRE PFT RGZ8465%PRE%PRED 145 % % VYAIRE PFT VXZ2284%POSTZSCORE 1.71 VYAIRE PFT IFH4681%POST%PRED 181 % % VYAIRE PFT JSE1327%CHNG 698.47 VYAIRE PFT EFG6298%%CHG 25 % % VYAIRE PFT TPZ2033%PREDAUTJellico Medical Center (2011) VYAIRE PFT XFA8RPMQ 4.89 4.14 - 7.78 L/s VYAIRE PFT PEF PRE 5.94 4.14 - 7.78 L/s VYAIRE PFT PEF PRED 5.96 VYAIRE PFT PEF LLN 4.14 VYAIRE PFT PEFPREZSCORE -0.02 VYAIRE PFT PEFPRE%PRED 100 % % VYAIRE PFT PEFPOSTZSCORE -0.96 VYAIRE PFT PEFPOST%PRED 82 % % VYAIRE PFT PEFCHNG -1,042.00 VYAIRE PFT PEF%CHG -18 % % VYAIRE PFT PEF [facility]ED[facility] NHAN[facility] III (1998) VYAIRE PFT VZKFKLZFYYFRRUXT4WLS 15.76 14.94 - 25.97 ml/(min* mmHg) VYAIRE PFT DLCOSINGLEBREATH PRED 19.88 VYAIRE PFT DLCOSINGLEBREATH LLN 14.94 VYAIRE PFT DLCOSINGLEBREATH Z-SCORE -1.35 VYAIRE PFT DLCOSINGLEBREATH % PRED 79.3 % VYAIRE PFT DLCOSINGLEBREATH PREDWakeMed North Hospitalojevic TLCO GLI (2019) VYAIRE PFT DLCOSINGLEBREATH Z-SCORE -1.35 03/11/2025 9:01 AM EDT VYAIRE PFT UOPYCBBPJRIRBJAPX6FQ E 15.76 14.94 - 25.97 ml/(min* mmHg) VYAIRE PFT DLCOCSINGLEBREATH PRED 19.88 VYAIRE PFT DLCOCSINGLEBREATH LLN 14.94 VYAIRE PFT DLCOCSINGLEBREATH Z-SCORE -1.35 VYAIRE PFT DLCOCSINGLEBREATH % PRED 79.3 % VYAIRE PFT DLCOCSINGLEBREATH PREDCone Health Women's Hospitalvic TLCO GLI (2019) VYAIRE PFT PRVOWE3USH 3.47 3.09 - 5.15 ml/(min* mmHg*L) VYAIRE PFT DLCOVAPRED 4.05 VYAIRE PFT DLCOVALLN 3.09 VYAIRE PFT DLCOVAZSCORE -0.97 VYAIRE PFT DLCOVA%PRED 85.6 % VYAIRE PFT DLCOVAPREDMOUNTAIN [facility] Stanojevic TLCO GLI (2019) VYAIRE PFT DLCOVAZSCORE -0.97 03/11/2025 9:01 AM EDT VYAIRE PFT XEZAYJVJD6HFA 3.47 3.09 - 5.15 ml/(min* mmHg*L) VYAIRE PFT DLCOC SB/VA PRED 4.05 VYAIRE PFT DLCOC SB/VA LLN 3.09 VYAIRE PFT DLCOC SB/VA Z-SCORE -0.97 VYAIRE PFT DLCOC SB/VA % PRED 85.6 % VYAIRE PFT DLCOC SB/VA PRED[facility] Stanojevic TLCO GLI (2019) VYAIRE PFT DLCOC SB/VA Z-SCORE -0.97 03/11 9:01 AM EDT VYAIRE PFT GFCSBBXPCGIDMC9PCL 4.54 3.89 - 5.95 L VYAIRE PFT VASINGLEBREATH PRED 4.87 VYAIRE PFT VASINGLEBREATH LLN 3.89 VYAIRE PFT VASINGLEBREATH Z-SCORE -0.52 VYAIRE PFT VASINGLEBREATH % PRED 93.4 % VYAIRE PFT VASINGLEBREATH PREDMOUNT[facility] Stanojevic TLCO GLI (2019) VYAIRE PFT VASINGLEBREATH Z-SCORE -0.52 03/11/2025 9:01 AM EDT VYAIRE PFT VVZYITAKQEAWOCO6VGD 3.19 2.20 - 3.89 L VYAIRE PFT IVCSINGLEBREATH PRED 3.02 VYAIRE PFT IVCSINGLEBREATH LLN 2.20 VYAIRE PFT IVCSINGLEBREATH Z-SCORE 0.33 VYAIRE PFT IVCSINGLEBREATH % PRED 105.7 % VYAIRE PFT IVCSINGLEBREATH PREDAUT US_Quanjer GLI (2011) VYAIRE PFT MESHA% VCMAX PRE 99.91 % VYAIRE PFT TLC SB PRE 4.71 4.21 - 6.57 L VYAIRE PFT TLCSINGLEBREATH PRED 5.32 VYAIRE PFT TLCSINGLEBREATH LLN 4.21 VYAIRE PFT TLCSINGLEBREATH Z-SCORE -0.88 VYAIRE PFT TLCSINGLEBREATH % PRED 88.5 % VYAIRE PFT TLCSINGLEBREATH PREDUMass [facility] Lung volumes GLI (2019)__ VYAIRE PFT HB PRE 13.40 g(Hb)/dL VYAIRE PFT CRF0VZK 4.18(A) 4.21 - 6.57 L VYAIRE PFT TLCPRED 5.32 VYAIRE PFT TLCLLN 4.21 VYAIRE PFT TLCULN 6.57 VYAIRE PFT TLCZSCORE -1.70 VYAIRE PFT TLC%PRED 78.5 % VYAIRE PFT TLCPREDAUTOhio[facility] Lung volumes GLI (2019)__ VYAIRE PFT [...] VYAIRE PFT IC%PRED 74.4 % VYAIRE PFT ICPREDAUTOhiohealth [facility]ert [facility] Lung volumes GLI (2019)__ VYAIRE PFT DNBQSNKH8IDR 2.44 2.15 - 4.11 L VYAIRE PFT FRCPLETH PRED 3.02 VYAIRE PFT FRCPLETH LLN 2.15 VYAIRE PFT FRCPLETH ULN 4.11 VYAIRE PFT FRCPLETH Z-SCORE -1.04 VYAIRE PFT FRCPLETH % PRED 80.9 % VYAIRE PFT FRCPLETH PREDUMass Memorial Medical Center Lung volumes GLI (2019)__ VYAIRE PFT NXT8DCH 1.46 0.21 - 1.68 L VYAIRE PFT ERVPRED 0.78 VYAIRE PFT ERVLLN 0.21 VYAIRE PFT ERVULN 1.68 VYAIRE PFT ERV Z-SCORE 1.29 VYAIRE PFT ERV%PRED 187.2 % VYAIRE PFT ERVPREDAUTH [facility] Lung volumes GLI (2019)__ VYAIRE PFT RV0PRE 0.98(A) 1.26 - 3.22 L VYAIRE PFT RVPRED 2.11 VYAIRE PFT RVLLN 1.26 VYAIRE PFT RVULN 3.22 VYAIRE PFT RVZSCORE -2.33 VYAIRE PFT RV%PRED 46.5 % VYAIRE PFT RVPREDAUTH [facility] Lung volumes GLI (2019)__ VYAIRE PFT RV%BQJ9XAG 23.49(A) 27.11 - 52.76 % VYAIRE PFT RV%TLCPRED 40 VYAIRE PFT RV%TLCLLN 27 VYAIRE PFT RV%TLCULN 53 VYAIRE PFT RV%TLCZSCORE -2.15 VYAIRE PFT RV%TLC%PRED 59.4 % VYAIRE PFT RV%TLCPREDAUTH [facility] Lung volumes GLI (2019)__ VYAIRE PFT Anatomical Region Laterality Modality PFT 03/10/2025 1:56 PM EDT Narrative 03/12/2025 1:28 PM EDT Pulmonary Function Testing Report Joi Marcial underwent pulmonary function testing today at the [facility]. The patient underwent spirometry, lung volumes by [...] C Nicholson MD PFT ORDERABLES Final Result * CT THORACIC OUTSIDE IMAGES (01/14/2025 1:51 PM EDT) Anatomical Region Laterality Modality Computed Tomogra phy 01/14/2025 1:51 PM EDT us External Provider IMG CT PROCEDURES Final Result * CT ABDOMEN OUTSIDE IMAGES (01/14/2025 1:51 PM EDT) Anatomical Region Laterality Modality Computed Tomogra phy 01/14/2025 1:51 PM EDT us External Provider IMG CT PROCEDURES Final Result from Last 3 Months Insurance [facility] MEDIC[facility] Advance Directives * Full Code (Latest Code Status on File) Date Activated Date Inactivated Comments 03/13/2025 9:51 AM 03/14/2025 2:45 PM Question Answer Comments I have reviewed the capacity from the link above and, if needed, have updated to appropriate status: Yes * Full Code Date Activated Date Inactivated Comments 03/12/2025 1:46 PM 03/13/2025 9:51 AM Question Answer Comments I have reviewed the capacity from the link above and, if needed, have updated to appropriate status: Yes * DNR/DNI Date Activated Date Inactivated Comments 01/07/2023 6:24 AM 01/09/2023 9:26 PM Question Answer Comments DNR determined on/before admission date? Yes Patient has decision-making capacity? Yes * Full Code Date Activated Date Inactivated Comments 01/07/2023 5:19 AM 01/07/2023 6:24 AM Question Answer Comments Patient has decision-making capacity? Yes Care Teams Saw Tailer Relationship Specialty Start Date End Date Edwardo Sheehan MD [address] [place] [address] PCP - General 12/19/22 Jose R Umana MD [facility] [address] [address] Referring Physician Cardiology 01/23/25 Kevin Mancera MD [address] [place] [address] [place] [address] Referring Physician 01/31/25
--- OUTSIDE RECORDS SUMMARY | 2025-03-31 14:08 | XMS_ITS | Encounter Summary ---
Author Organization Healthcare Address [address] [place] [address] Care Team Providers Care Poacher Wringer Operator Name Role Phone Edwardo Sheehan MD Primary Care Provider [phone] Jose R Umana MD Unavailable [phone] Kevin Mancera MD Unavailable [phone] Reason for Visit * Reason Onset Date Comments HCN Clinical Concern/Question 02/27/2025 Encounter Details Date Type Department Care Team (Late st Contact Info) Description 02/27/2025 Telephone [facility] [address] [facility] 5th Floor [address] [place] [address] Cedrick Franz MD [address] [facility] [address] [place] [address] HCN Clinical Concern/Question Social History Tobacco Use Types Packs/Day Years [...] declined 03/14/2025 How often do you attend druze or orthodoxy serv ices? Patient declined 03/14/2025 Do you belong to any clubs o r organizations such as druze groups, unions, fraternal or athletic groups, or [...] drinks on one occasion? Patient declined 03/14/2025 [facility] - Occupational Stress Questionnaire Answer Date [...] Fields RN documented as of this encounter Miscellaneous Notes * Telephone Encounter - Ca Saravia RN - 02/28/2025 11:13 AM EDT [employer] is the only insurance currently on file. Surgery Authorization team sent reminder. * Telephone Encounter - Svitlana Cm - 02/28/2025 11:02 AM EDT Clinical Concern/Question Reason for Call: Patient is asking for authorization to go through [employer]. Best contact number: [phone] (home) Optimal time of day to reach caller: ANYTIME Additional comments/information from caller: None Note: Please do not reply to this message. Follow-up communication and further actions as a result of this message need to be communicated with the patient directly, if the patient is not active onMyChart. If the patient is active on MyChart, they will receive notification of the communication/outcome via MyChart. documented in this encounter Plan of Treatment Upcoming Encounters Date Type Department Care Team (Late st Contact Info) Description 05/14/2025 12:30 PM EDT Office Visit [facility] Cardiothoracic [address] [place] [id number] Jose C Nicholson MD [address] [place] [address] 05/21/2025 9:00 AM EDT Appointment [facility] Vascular Lab [address] [facility] 5th Floor [address], [address] [place] [address] 05/21/2025 10:20 AM EDT Office Visit [facility] Comprehensive Vascular Clinic [address] [place] [address] Cedrick Franz MD [address] [facility] [address] [place] [address] documented as of this encounter Visit Diagnoses Not on filedocumented in this encounter Additional Health Concerns Assessment Noted Time A fall risk assessment has been complete d for the patient 02/26/2025 9:04 AM EDT A Body Mass Index follow-up plan has been documented for the patient 02/28/2025 8:49 AM EDT documented as of this encounter Care Teams Poacher Wringer Operator Relationship Specialty Start Date End Date Edwardo Sheehan MD [address] [place] [address] PCP - General 12/19/22 Jose R Umana MD [address] [facility] [address] [place], [place] [id number] Referring Physician Cardiology 01/23/25 Kevin Mancera MD [address] [facility] [address] [place] [address] Referring Physician 01/31/25 documented as of this encounter
--- OUTSIDE RECORDS SUMMARY | 2025-03-31 14:08 | XMS_ITS | Encounter Summary ---
Author Organization Healthcare Address [address] [place] [address] Care Team Providers Care Firer Portable Boiler Name Role Phone Edwardo Sheehan MD Primary Care Provider [phone] Jose R Umana MD Unavailable [phone] Kevin Mancera MD Unavailable [phone] Encounter Details Date Type Department Care Team (Latest Contact Info) Description 03/10/2025 Travel Social History Tobacco Use Types Packs/Day [...] Description 05/14/2025 12:30 PM EDT [facility] Cardi[facility]acic [address], [facility] [address] [place] [address] Jose C Nicholson MD [address] [place] [address] 05/21/2025 9:00 AM EDT Appointment [facility] Vascular Lab [address] [facility] 5th Floor [address], [address] [place] [address] 05/21/2025 10:20 AM EDT Office Visit [facility] Comprehensive Vascular Clinic [address] [facility] 5th Floor [address], [address] [place] [address] Cedrick Franz MD [address] [place] [address] documented as of this encounter Visit Diagnoses Not on filedocumented in this encounter Additional Health Concerns Assessment Noted Time A fall risk assessment has been complete d for the patient 02/26/2025 9:04 AM EDT A Body Mass Index follow-up plan has been documented for the patient 02/28/2025 8:49 AM EDT documented as of this encounter Care Teams Firer Portable Boiler Relationship Specialty Start Date End Date Edwardo Sheehan MD [address] [place] [address] PCP - General 12/19/22 Jose R Umana MD [address] [facility] [address] [place] [address] Referring Physician Cardiology 01/23/25 Kevin Mancera MD [address] [facility] [address] [place] [address] Referring Physician 01/31/25 documented as of this encounter
--- OUTSIDE RECORDS SUMMARY | 2025-03-31 14:08 | XMS_ITS | Encounter Summary ---
Author Organization Healthcare Address [address] [place] [address] Care Team Providers Care Apn Name Role Phone Edwardo Sheehan MD Primary Care Provider [phone] Jose R Umana MD Unavailable [phone] Kevin Mancera MD Unavailable [phone] Encounter Details Date Type Department Care Team (Late st Contact Info) Description 02/27/2025 Telephone [facility] [address] [facility] 5th Floor Wing [address], [address] [place] [address] Ca Saravia RN PROGRESSIVE-ACUTE UNIT 9-T1 AND T2 Social History Tobacco Use Types Packs/Day Years [...] Telephone Encounter - Ca Saravia RN - 02/27/2025 9:52 AM EDT Left VM and notified of ASA and plavix sent by Dr. Franz to [facility] in [place]. Clinic number included for call back. documented in this encounter Plan of Treatment Upcoming Encounters Date Type Department Care Team (Late st Contact Info) Description 05/14/2025 12:30 PM EDT Office Visit [facility] Cardiothoracic [address] [place] [address] Jose C Nicholson MD [address] [place] [address] 05/21/2025 9:00 AM EDT Appointment [facility] Vascular Lab [address] [place] [address] 5th Floor [address] [place] [address] 05/21/2025 10:20 AM EDT Office Visit [facility] Comprehensive Vascular Clinic [address] [place] [address] Floor [address] [place] [address] Cedrick Franz MD [facility] [address] [facility] [address] [place] [address] documented as of this encounter Visit Diagnoses Not on filedocumented in this encounter Additional Health Concerns Assessment Noted Time A fall risk assessment has been complete d for the patient 02/26/2025 9:04 AM EDT A Body Mass Index follow-up plan has been documented for the patient 02/28/2025 8:49 AM EDT documented as of this encounter Care Teams Apn Relationship Specialty Start Date End Date Edwardo Sheehan MD [address] [place] [address] PCP - General 12/19/22 Jose R Umana MD [address] [facility] [address] [place] [address] Referring Physician Cardiology 01/23/25 Kevin Mancera MD [address] [facility] [address] [place] [address] Referring Physician 01/31/25 documented as of this encounter
--- OUTSIDE RECORDS SUMMARY | 2025-03-31 14:08 | XMS_ITS | Encounter Summary ---
Author Organization Healthcare Address [address] [place] [address] Care Team Providers Care Counsel Name Role Phone Edwardo Sheehan MD Primary Care Provider [phone] Jose R Umana MD Unavailable [phone] Kevin Mancera MD Unavailable [phone] Encounter Details Date Type Department Care Team (Latest Contact Info) Description 03/03/2025 Travel Social History Tobacco Use Types Packs/Day [...] Description 05/14/2025 12:30 PM EDT [facility] [address], [facility] [address] [place] [address] Jose C Nicholson MD [address] [place] [address] 05/21/2025 9:00 AM EDT Appointment [facility] Vascular Lab [address] [facility] 5th Floor [address] [place] [address] 05/21/2025 10:20 AM EDT Office Visit [facility] Comprehensive Vascular Clinic [address] [facility] 5th Floor [address] [place] [address] Cedrick Franz MD [address] [place] [address] documented as of this encounter Visit Diagnoses Not on filedocumented in this encounter Additional Health Concerns Assessment Noted Time A fall risk assessment has been complete d for the patient 02/26/2025 9:04 AM EDT A Body Mass Index follow-up plan has been documented for the patient 02/28/2025 8:49 AM EDT documented as of this encounter Care Teams Counsel Relationship Specialty Start Date End Date Edwardo Sheehan MD [address] [place] [address] PCP - General 12/19/22 Jose R Umana MD [address] [facility] [address] [place] [address] Referring Physician Cardiology 01/23/25 Kevin Mancera MD [address] [facility] [address] [place] [address] Referring Physician 01/31/25 documented as of this encounter
--- OUTSIDE RECORDS SUMMARY | 2025-03-31 14:08 | XMS_ITS | Encounter Summary ---
Author Organization Healthcare Address [address] [place] [address] Care Team Providers Care Program Coordinator Executive Education Name Role Phone Edwardo Sheehna MD Primary Care Provider [phone] Jose R Umana MD Unavailable Kevin Mancera MD Unavailable [phone] Encounter Details Date Type Department Care Team (Late st Contact Info) Description 02/27/2025 Orders Only [facility] Comprehensive Vascular Clinic [address] [facility] 5th Floor [address] [place] [address] Cedrick Franz MD [address] [facility] [address] [place] [address] Social History Tobacco Use Types [...] Office Visit [facility] Cardiothoracic [address] [place] [address] Jose C Nicholson MD [address] [place] [address] 05/21/2025 9:00 AM EDT Appointment [facility] Vascular Lab [address] [facility] 5th Floor [address] [place] [address] 05/21/2025 10:20 AM EDT Office Visit [facility] Comprehensive Vascular Clinic [address] [facility] 5th Floor [address] [place] [address] Cedrick Franz MD [address] [facility] [address] [place] [address] documented as of this encounter Visit Diagnoses Not on filedocumented in this encounter Additional Health Concerns Assessment Noted Time A fall risk assessment has been complete d for the patient 02/26/2025 9:04 AM EDT A Body Mass Index follow-up plan has been documented for the patient 02/28/2025 8:49 AM EDT documented as of this encounter Care Teams Program Coordinator Executive Education Relationship Specialty Start Date End Date Edwardo Sheehan MD [address] [place] [address] PCP - General 12/19/22 Jose R Umana MD [address] [facility] [address] [place], [place] [address] Referring Physician Cardiology 01/23/25 Kevin Mancera MD [address] [facility] [address] [place] [address] Referring Physician 01/31/25 documented as of this encounter
--- OUTSIDE RECORDS SUMMARY | 2025-03-31 14:09 | XMS_ITS | Patient Health Record ---
Author Organization [facility] Physician Kathy jackson Billing Info Address [address] [place] [address] Support Name Relationship Address Phone Joi Marcial Guarantor Unknown [phone] Reason For Referral No Information Medications Medication SIG (Take, Route, Frequency, Duration) Notes Start Date End Date Status Chantix Continuing Month Duc 1 MG 1 tablet Orally Twice a day for 30 day(s) 09/07/2011 Active Chantix Starting Month Duc 0.5 MG X 11 & 1 MG X 42 as directed Orally As directed for 30 days 09/07/2011 Active Calcium + D 600-200 MG-UNIT 1 tablet with food Orally Once a day for 30 day(s) Active Lisinopril-Hydrochlorothia zide 10-12.5 MG 1 tablet Orally Once a day for 30 day(s) Active Premarin 0.625 MG 1 tablet Orally Once a day for 30 day(s) Active Immunizations Vaccine Route Administration Date Status Comme nts zFLU 3V (AFLURIA), 5 YRS+, NO PRES - ALL PAYORS IM Intramuscular 06/19/2014 Administered zFLU 3V (FLUVIRIN), 4 YRS+, NO PRES - ALL PAYORS IM Intramuscular 06/23/2015 Administered Problems Problem Type SNOMED Code ICD Code Onset Dates Problem Status W/U Status Risk Notes Problem Counseling about tobacco use ([id number]) Tobacco abuse counseling (V65.42) Active confirmed Plan Of Treatment No Information Medical (General) History Medical History History ICD Code Hypertension Surgical History Surgery Date(Month/Year) GRACE Cholecystectomy Back sx (discectomy - lumbar) Hospitalization History Reason Date(Month/Year) Childbirth Back surgery
--- OUTSIDE RECORDS SUMMARY | 2025-03-31 14:09 | XMS_ITS | Encounter Summary ---
Author Organization Healthcare Address [address] [place] [address] Care Team Providers Care Toys And Games Hand Finisher Name Role Phone Edwardo Sheehan MD Primary Care Provider [phone] Jose R Umana MD Unavailable [phone] Kevin Mancera MD Unavailable [phone] Encounter Details Date Type Department Care Team (Late st Contact Info) Description 11/29/2024 Orders Only External Location [address] [place] [address] Provider, External Social History Tobacco Use Types Packs/Day Years Used Date Smoking Tobacco: Unknown Comments No Sex and Gender Information Value Date Recorded Sex Assigned at Not on file Legal Sex Female 7:38 PM EDT Gender Identity Not on file Sexual Orientation Not on file documented as of this encounter Plan of Treatment Upcoming Encounters Date Type Department Care Team (Late st Contact Info) Description 05/14/2025 12:30 PM EDT Office Visit [facility] Cardiothoracic [address] [facility], [facility] [address] [place] [address] Jose C Nicholson MD [address] [facility] [address] [place] [address] 05/21/2025 9:00 AM EDT Appointment [facility] Vascular Lab [address] [place] [address] 05/21/2025 10:20 AM EDT Office Visit [facility] Comprehensive Vascular Clinic [address] 5th Floor [address] [place] [address] Cedrick Franz MD [address] [place] [address] documented as of this encounter Procedures Procedure Name Priority Date/Time Associated Diagnosis Comments CT OUTSIDE IMAGES 11/29/2024 10:19 AM EDT documented in this encounter Results * CT OUTSIDE IMAGES (11/29/2024 10:19 AM EDT) Anatomical Region Laterality Modality Computed Tomogra phy 11/29/2024 10:1 9 AM EDT us External Provider IMG CT PROCEDURES Final Result documented in this encounter Visit Diagnoses Not on filedocumented in this encounter Care Teams Toys And Games Hand Finisher Relationship Specialty Start Date End Date Edwardo Sheehan MD [address] [place] [address] PCP - General 12/19/22 Jose R Umana MD [address] [facility] [address] [place], [place] [address] Referring Physician Cardiology 01/23/25 Kevin Mancera MD [address] [place] [address] Referring Physician 01/31/25 documented as of this encounter
--- OUTSIDE RECORDS SUMMARY | 2025-03-31 14:09 | XMS_ITS | Data Portability ---
Author Organization [place] [facility] Address [address] [place] [address] Assessment Encounter Date Assessment Date Assessment LastModified [...] and Address Organization Details Recorded Time Sciatica 99080997 Active 024 Luis Antonio Forrester MD [address], [address], [place] [facility] 4 16:49:43 Piriformis syndrome [id number] Active 024 Luis Antonio Forrester MD [address], [address], [place] [facility] 4 16:49:44 Problem Notes None recorded. Procedures Surgical History Date Name Laterality Status Provider Name and Address Organization Details Recorded Time 10/19/2023 Piriformis completed Luis Antonio Forrester MD [address], [address], [place] [facility] 10/19/2023 [...] Time Tobacco Smoking Status Former Smoker Latisha frazier, [place] - [facility] 10/19/2023 15:11:09 Do You Have An Advance Directive? No [email or web address] Information not available 10/19/2023 Do You Have A Medical Power Of Audiovisual Equipment Operator? No Information not available 10/19/2023 How Much Tobacco Do You Smoke? 1 PPD [email or web address] Information not available 10/19/2023 Sex: Unknown Functional Status Question Answer Note LastModified by Organizat ion Details LastModified Time Do you use any illicit or recreational drugs? Yes maijuana occasionally [email or web address] Information not available 10/19/2023 What is your level of alcohol consumption? None [email or web address] Information not available 10/19/2023 Are you currently employed? No [email or web address] Information not available 10/19/2023 Mental Status None recorded. Family History Nothing Reported. Medical History Condition Response Coronary Artery Disease N Gout N Hernia N Head Trauma/Injury N Thyroid Problems N Depression N COPD N Anemia N Heart Attack (NM) N Ulcers N Diabetes N Anxiety Disorder Y Bleeding Disorder N Arthritis Y Tuberculosis N AIDS/HIV N Acid Reflux (GERD) N Cancer N Stroke N Asthma N Substance Abuse N Back Injury Y High Cholesterol N Hepatitis N Liver Disease N Heart Disease N Headaches N Fibromyalgia N Hypertension N Osteoporosis N Kidney Disease N Gynecological HistoryNo gynecological history recorded. Obstetrics History GPAL:G 0 P 0 0 0 0 Past Encounters Encounter ID Performer Location Encounter Start Date Encounter Closed Date Diagnosis/Indication Diagnosis SNOMED-CT Code Diagnosis ICD10 Code Diagnosis Note [id number] Luis Antonio Forrester MD [address]RAIG [address] [place] [address] 10/19/2023 14:38:46 10/19/2023 16:01:36 Sciatica 15490689 M54.30 Piriformis syndrome 1291 07489 G57.03 Health Concerns Section Related Observation LastModified by Organization Detai ls LastModified Time None Recorded Concern Status LastModified by Organization Details LastModified Time None Recorded Advance Directives Directive N: Payers Insurance Date Sequence Insurance Name Policy Number Policy Green Covered Member ID Green Member ID Guarantor Name 03/25/2025 1 [employer] (MEDICARE REPLACEMENT/A DVANTAGE - PPO) Joi Marcial [id number] Joi Marcial Notes Date Note Type Note [...] injection of INSERT TEXT HERE. Luis Antonio Forrestre MD [address], [address], [place] - [facility] 10/19/2023 16:50:28 OBGyn Episode No OBEpisode recorded.
--- OUTSIDE RECORDS SUMMARY | 2025-03-31 14:09 | XMS_ITS | Encounter Summary ---
Author Organization Healthcare Address [address] [place] [address] Care Team Providers Care Llama Farmer Name Role Phone Edwardo Sheehan MD Primary Care Provider [phone] Jose R Umana MD Unavailable [phone] Kevin Mancera MD Unavailable [phone] Encounter Details Date Type Department Care Team (Late Contact Info) Description 11/29/2024 Orders Only External Location [address] [place] [address] Jose R Umana MD [address] [place] [address] Social History Tobacco Use Types Packs/Day Years [...] 05/14/2025 12:30 PM EDT Office Visit [facility] Cardiothoracic [address], [address] [place] [address] Jose C Nicholson MD [address] [facility] [address] [place] [address] 05/21/2025 9:[address] [facility] V[facility] Lab [address] [facility] 5th Floor [address] [place] [address] 05/21/2025 10:20 AM EDT Office Visit [facility] [address] 5th Floor [address] [place] [address] Cedrick Franz MD [address] [place] [address] documented as of this encounter Procedures Procedure Name Priority Date/Time Associated Diagnosis Comments US OUTSIDE IMAGES 11/29/2024 10:32 AM EDT documented in this encounter Results * US OUTSIDE IMAGES (11/29/2024 10:32 AM EDT) Anatomical Region Laterality Modality Ultrasound 11/29/2024 10:3 2 AM EDT us Jose R Umana MD IMG US PROCEDURES Final Result documented in this encounter Visit Diagnoses Not on filedocumented in this encounter Care Teams Llama Farmer Relationship Specialty Start Date End Date Edwardo Sheehan MD [address] [place] [address] PCP - General 12/19/22 Jose R Umana MD [address] [facility] [address] [place] [address] Referring Physician Cardiology 01/23/25 Kevin Mancera MD [address] [place] [address] [address] [place] [address] Referring Physician 01/31/25 documented as of this encounter
--- OUTSIDE RECORDS SUMMARY | 2025-03-31 14:09 | XMS_ITS | Encounter Summary ---
Author Organization Healthcare Address [address] [place] [address] Care Team Providers Care Mobile Electronics Installer Name Role Phone Edwardo Sheehan MD Primary Care Provider [phone] Jose R Umana MD Unavailable [phone] Kevin Mancera MD Unavailable [phone] Encounter Details Date Type Department Care Team (Late st Contact Info) Description 12/26/2024 Orders Only External Location [address] [place] [address] Provider, External Social History Tobacco Use Types [...] EDT Office Visit [facility] [address] [facility], [facility] [address] [place] [address] Jose C Nicholson MD [address] [facility] [address] [place] [address] 05/21/2025 9:00 AM EDT Appointment [facility] [address] [place] [address] 05/21/2025 10:20 AM EDT Office Visit [facility] [address] 5th Floor [address] [place] [address] Cedrick Franz MD [address] [place] [address] documented as of this encounter Procedures Procedure Name Priority Date/Time Associated Diagnosis Comments CT NEURO OUTSIDE IMAGES 12/26/2024 1:44 PM EDT documented in this encounter Results * CT NEURO OUTSIDE IMAGES (12/26/2024 1:44 PM EDT) Anatomical Region Laterality Modality Computed Tomogra phy 12/26/2024 1:44 PM EDT us External Provider IMG CT PROCEDURES Final Result documented in this encounter Visit Diagnoses Not on filedocumented in this encounter Care Teams Mobile Electronics Installer Relationship Specialty Start Date End Date Edwardo Sheeahn MD [address] [place] [address] PCP - General 12/19/22 Jose R Umana MD 1210 [facility] [address] [place] [address] Referring Physician Cardiology 01/23/25 Kevin Mancera MD [address] [place], [place] [address] Referring Physician 01/31/25 documented as of this encounter
--- OUTSIDE RECORDS SUMMARY | 2025-03-31 14:09 | XMS_ITS | Encounter Summary ---
Author Organization Healthcare Address [address] [place] [address] Care Team Providers Care Personal Care Home Administrator Name Role Phone Edwardo Sheehan MD Primary Care Provider [phone] Jose R Umana MD Unavailable [phone] Kevin Mancera MD Unavailable [phone] Encounter Details Date Type Department Care Team (Late st Contact Info) Description 12/26/2024 Orders Only External Location [address] [place] [address] Provider, External Social History Tobacco Use Types [...] Description 05/14/2025 12:30 PM EDT Office Visit [facility] Cardioth[facility]acic [address] [facility], [facility] [address] [place] [address] Jose C Nicholson MD [address] [facility] [address] [place] [address] 05/21/2025 9:00 AM EDT Appointment [facility] Lab [address] [place] [address] 05/21/2025 10:20 AM EDT Office Visit [facility] [address] 5th Floor [address] [place] [address] Cedrick Franz MD [address] [place] [address] documented as of this encounter [...] on filedocumented in this encounter Care Teams Personal Care Home Administrator Relationship Specialty Start Date End Date Edwardo Sheehan MD [address] [place] [address] PCP - General 12/19/22 Jose R Umana MD 1210 [facility] [address] [place] [address] Referring Physician Cardiology 01/23/25 Kevin Mancera MD [address] [place], [place] [address] Referring Physician 01/31/25 documented as of this encounter
--- OUTSIDE RECORDS SUMMARY | 2025-03-31 14:09 | XMS_ITS | Encounter Summary ---
Author Organization Healthcare Address [address] [place] [address] Care Team Providers Care Leather Production Worker Name Role Phone Edwardo Sheehan MD Primary Care Provider [phone] Jose R Umana MD Unavailable [phone] Kevin Mancera MD Unavailable [phone] Encounter Details Date Type Department Care Team (Late st Contact Info) Description 12/26/2024 Orders Only External Location [address] [place] [address] Provider, External Social History Tobacco Use Types [...] Description 05/14/2025 12:30 PM EDT Office Visit [facility] Cardiothoracic 740 [facility], [facility] [address] [place] [address] Jose C Nicholson MD [address] [facility] [address] [place] [address] 05/21/2025 9:00 AM EDT Appointment [facility] Vascular Lab [address] [place] [address] 05/21/2025 10:20 AM EDT Office Visit [facility] [address] 5th Floor [address] [place] [address] Cedrick Franz MD [address] [place] [address] documented as of this encounter [...] on filedocumented in this encounter Care Teams Leather Production Worker Relationship Specialty Start Date End Date Edwardo Sheehan MD [address] [place] [address] PCP - General 12/19/22 Jose R Umana MD 1210 [facility] [address] [place] [address] Referring Physician Cardiology 01/23/25 Kevin Mancera MD [address] [place], [place] [address] Referring Physician 01/31/25 documented as of this encounter
--- OUTSIDE RECORDS SUMMARY | 2025-03-31 14:09 | XMS_ITS | Encounter Summary ---
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) Kevin Mancera MD [address] [place] [address] Phone: tel: fax: [facility] [address] [facility] 5th Floor [address] [place] [address] Phone: tel: fax: Referral ID Status Reason Start Date Expiration Date V isits Requested Visits Authorized [id number] Closed Specialty Services Required 01/02/2025 07/04/2026 1 1 Encounter Details Date Type Department Care Team (Late st Contact Info) Description 01/02/2025 Community Orders Community Practice [address] [place] [address] Kevin Mancera MD [address] [place] [address] 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) (Primary Dx) Social History Tobacco Use Types Packs/Day Years [...] Visit [facility] Cardiothoracic [address] [place] [address] Jose C Nicholson MD [address] [facility] [address] [place] [address] 05/21/2025 9:00 AM EDT Appointment [facility] Vascular Lab 0 [facility] 5th Floor [address], [address] [place] [address] 05/21/2025 10:20 AM EDT Office Visit [facility] [address] [place] [address] Cedrick Franz MD [address] [facility] [address] [place] [address] Scheduled Referrals Name Type Priority Associated Diagnoses Order Schedule Ambulatory referral to Vascular Surgery Outpatient Referral Routine 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) Expected: 01/02/2025, Expires: 07/04/2026 documented as of this encounter Visit Diagnoses Diagnosis 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
--- OUTSIDE RECORDS SUMMARY | 2025-03-31 14:09 | XMS_ITS | Encounter Summary ---
Author Organization Healthcare Address [address] [place] [address] Care Team Providers Care Developmental Writing Instructor Name Role Phone Edwardo Sheehan MD Primary Care Provider [phone] Jose R Umana MD Unavailable [phone] Encounter Details Date Type Department Care Team (Latest Contact Info) Description 01/30/2025 Travel Social History Tobacco Use Types Packs/Day [...] Office Visit [facility] Cardiothoracic [address] [facility], [facility] [address] [place] [address] Jose C Nicholson MD [address] [facility] [address] [place] [address] 05/21/2025 9:00 AM EDT Appointment [facility]ascular Lab [address] [place] [address] 05/21/2025 10:20 AM EDT Office Visit [facility] [address] [place] [address] Cedrick Franz MD [address] [place] [address] documented as of this encounter Visit Diagnoses Not on filedocumented in this encounter Additional Health Concerns Assessment Noted Time A fall risk assessment has been complete d for the patient 01/30/2025 8:43 AM EDT A Body Mass Index follow-up plan has been documented for the patient 01/30/2025 10:39 AM EDT documented as of this encounter Care Teams Developmental Writing Instructor Relationship Specialty Start Date End Date Edwardo Sheehan MD [address] [place] [address] PCP - General 12/19/22 Jose R Umana MD 1210 [facility] [address] [place] [address] Referring Physician Cardiology 01/23/25 documented as of this encounter
--- OUTSIDE RECORDS SUMMARY | 2025-03-31 14:09 | XMS_ITS | Encounter Summary ---
Author Organization Healthcare Address [address] [place] [address] Care Team Providers Care Cloth Stock Sorter Name Role Phone Edwardo Sheehan MD Primary Care Provider [phone] Jose R Umana MD Unavailable [phone] Kevin Mancera MD Unavailable [phone] Encounter Details Date Type Department Care Team (Latest Contact Info) Description 03/19/2025 Travel Social History Tobacco Use Types Packs/Day [...] declined 03/14/2025 How often do you attend samaritan or jew serv ices? Patient declined 03/14/2025 Do you belong to any clubs o r organizations such as samaritan groups, unions, fraternal or athletic groups, or [...] drinks on one occasion? Patient declined 03/14/2025 [facility] - Occupational Stress Questionnaire Answer Date Recorded [...] as of this encounter Functional Status * Over the [...] Carmelita Burr documented as of this encounter Plan of Treatment Upcoming Encounters Date Type Department Care Team (Late st Contact Info) Description 05/14/2025 12:30 PM EDT Office Visit [facility] Cardiothoracic [address] [facility], [address] [place] [address] Jose C Nicholson MD [address] [facility] [address] [place] [address] 05/21/2025 9:00 AM EDT Appointment [facility] [address] [facility] 5th Floor [address] [place] [address] 05/21/2025 10:20 AM EDT Office Visit [facility] [address] [place] [address] 5th Floor [address] [place] [address] Cedrick Franz MD [address] [facility] [address] [place] [address] documented as of this encounter Visit Diagnoses Not on filedocumented in this encounter Additional Health Concerns Assessment Noted Time A fall risk assessment has been complete d for the patient 03/19/2025 12:18 PM EDT A Body Mass Index follow-up plan has been documented for the patient 03/19/2025 1:22 PM EDT documented as of this encounter Care Teams Cloth Stock Sorter Relationship Specialty Start Date End Date Edwardo Sheehan MD [address] [place] [address] PCP - General 12/19/22 Jose R Umana MD [address] [place] [address] [address] [place] [address] Referring Physician Cardiology 01/23/25 Kevin Mancera MD [address] [place] [address] [address] [place] [address] Referring Physician 01/31/25 documented as of this encounter
--- NOTE | 2025-03-31 14:23 | EXP.PAIN.SOA ---
[facility] Disclaimer: The information contained in this section may have been updated after the patient was seen, as this information can be updated by other users. Medical History Aortic mural thrombus Descending aortic aneurysm Thoracic aortic aneurysm Bilateral bunions Surgical History H/O: hysterectomy History of cholecystectomy History of left hip replacement Family History Other Cancer Coronary artery disease Hypertension Social History Smoking Status: Former smoker alcohol intake: never substance use type: denies use current occupational status: other Travel in the last 8 weeks?: None household members: other housing: condominium marital status: PM Subjective & Objective Subjective Subjective:: Patient is a pleasant 70-year-old female who presents today for bilateral SI injection follow-up 03/04/2025. Today she rates her pain a 2 out of 10. Patient states that she has had 90% improvement following these injections and feels like the pain is much better and feels more functional overall. Patient has also had a heart cath with stent placement in February and is doing well overall. Patient states that she does have a little right knee pain today however no other changes. Her Johnie has been reviewed and is appropriate. Review of Systems: General: No recent weight changes, no fever, no sleep disturbances Respiratory: No cough, no shortness of air, no recurring pulmonary infections Cardiovascular/peripheral vascular: No chest pain, no palpitations, no edema, no shortness of breath Gastrointestinal: No new onset incontinence, normal bowel movements reported Genitourinary: No new onset incontinence Musculoskeletal: Right knee pain Psychiatric: [Normal mood/affect] Neurological: [Denies weakness in extremities], [denies balance issues] Pain at rest (0-10 scale): 2 Objective Objective:: Physical Exam: General: Alert and oriented x3, no acute distress, pleasant and cooperative Lungs: Respirations even and unlabored, symmetrical chest expansion Eyes: PERRL Musculoskeletal: Flexion and extension of lumbar [spine] within normal limits Neurological: Speech clear, no gross sensory deficit Has patient had previous pain injection?: Yes Percent improvement in pain since last injection: 90% Conservative treatment options previously tried: Home exercise plan Length of treatment: Longer than 12 weeks Meds Home Medications and Allergies Home Medications ?Medication ?Instructions ?Recorded ?Confirmed ?Type paroxetine HCl 20 mg tablet 20 mg PO DAILY 12/26/22 03/04/25 History alprazolam 0.5 mg tablet 0.5 mg PO BID PRN Anxiety 03/29/23 03/04/25 History cholecalciferol (vitamin D3) 125 125 mcg PO DAILY 07/11/23 03/04/25 History mcg (5,000 unit) capsule apixaban 5 mg tablet (Eliquis) 5 mg PO BID #60 tabs 12/02/24 03/04/25 Rx atorvastatin 20 mg tablet (Lipitor) 20 mg PO DAILY #90 tabs 12/02/24 03/04/25 Rx bisoprolol fumarate 10 mg tablet 10 mg PO DAILY #90 tabs 01/03/25 03/04/25 Rx aspirin 81 mg tablet,delayed 81 mg PO DAILY 03/04/25 03/04/25 History release clopidogrel 75 mg tablet 75 mg PO DAILY 03/04/25 03/04/25 History hydrochlorothiazide 50 mg tablet 50 mg PO DAILY #30 tabs 03/04/25 03/04/25 Rx lisinopril 40 mg tablet 40 mg PO DAILY #30 tabs 03/04/25 03/04/25 Rx New Prescriptions to Start Prescriptions: Allergies Allergy/AdvReac Type Severity Reaction Status Date / Time No Known Allergies Allergy Verified 03/04/25 13:43 Assessment and Plan *Assessment and plan (1) Bilateral sacroiliitis: Status: Acute Category: Medical Code(s): M46.1 - Sacroiliitis, not elsewhere classified (2) Lumbar back pain: Status: Acute Category: Medical Code(s): M54.50 - Low back pain, unspecified Plan Patient has had significant improvement following her SI injections and does not require any additional injection therapy at this time. Patient return to clinic in 6 weeks. Patient has been instructed to contact the clinic with any concerns before the next appointment. Dr. Forrester has reviewed this note and agrees with this plan of care. This note was dictated using voice recognition software and make contain errors or omissions. All injections are used with Lidocaine, Bupivacaine and dexamethasone. Occasionally urine drug screen is needed to verify patient's compliance with our office pain contract. This is ordered based off specific treatments related to chronic pain with the potential to abuse certain medications.
[2025-03-31 14:43] VITALS: BP 139/66; PULSE 53; RESP 14; O2SAT 100; BMI 25.0
== END 2025-03-31 23:59 | disposition home or self-care (01) ==
LOC: SC.PAIN 14:00
PROVIDERS: PCP Family Medicine; Visit Provider Nurse Practitioner Family
DX: M46.1 Sacroiliitis, not elsewhere classified (principal)
CPT/HCPCS: 99212; G0463

== ENCOUNTER 2025-06-12 10:52 | Outpatient (CLI) | payer MEDICARE, SELFPAY ==
--- OUTSIDE RECORDS SUMMARY | 2025-05-14 12:30 | XMS_ITS | Encounter Summary ---
Author Organization Healthcare Address [address] 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 Patient declined 03/14/2025 Do you belong to any clubs o r organizations such as episcopalian groups, unions, fraternal or athletic groups, or [...] drinks on one occasion? Patient declined [facility] - Occupational Stress Questionnaire Answer Date Recorded [...] Sign Reading Time Taken Comments Blood Pressure 130/79 05/14/2025 12:46 PM EDT Pulse 49 05/14/2025 1:00 PM EDT Temperature - - Respiratory Rate - - Oxygen Saturation 98% 05/14/2025 12:46 PM EDT Inhaled Oxygen Concentration - - Weight 70.8 kg (156 lb 1.4 oz) 05/14/2025 12:46 PM EDT Height 167.6 cm (5' 6 ) 05/14/2025 12:46 PM EDT Body Mass Index 25.19 05/14/2025 12:46 PM EDT documented in this encounter Miscellaneous Notes * Progress Notes - Russ Buchanan MD - 05/14/2025 12:30 PM EDT CARDIAC SURGERY CLINIC Reason for visit / Chief Complaint: Preop for Thoracoabdominal Aneurysm History of present illness: Joi Marcial is a 70 y.o. female with hypertension, and cerebral venous sinus thrombosis, presents for ascending and descending aortic aneurisms discovered on CT scans ordered by her wine steward. 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 She was evaluated at [facility] with plans for staged repair including elephant trunk followed by endovascular repair however she wanted to be closer to home for a potential procedure. CTA shows maximal diameter of 6.2 cm in descending thoracic aorta. Now status post ALEKSANDR stent with Dr. Franz on 03/13/25. Currently on DAPT. Returns to clinic for surgical scheduling. This was previously explained to herto require ascending aortic replacement, debranching of the innominate and left carotid artery, hemiarch or arch replacement, and circulatory arrest. To be followed by Vascular Surgery intervention for the descending. She is ready to proceed. Her chronic comorbid conditions that impact our treatment planning include: Coagulation Defect Peripheral Vascular Disease (inclusive of atherosclerotic disease of the lower extremities) Reduced Mobility NYHA Classification: Class II: Mild symptoms with ordinary activity. 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 Yes Provider, Historical amLODIPine (Norvasc) 2.5 MG tablet Take 1 tablet by mouth daily. 05/05/25 Yes Provider, Historical aspirin 81 MG EC tablet Take 1 tablet by mouth daily. 02/27/25 02/27/26 Yes Cedrick Franz MD atorvastatin (Lipitor) 20 MG tablet Take 1 tablet by mouth daily. 02/25/25 Yes Provider, Historical bisoprolol (Zebeta) 10 MG tablet Take 1 tablet by mouth nightly. Yes Provider, Historical cholecalciferol (D-5000) 5,000 Units tablet Take 1 tablet by mouth 1 time each day. Yes Provider, Historical clopidogrel (Plavix) 75 MG tablet Take 1 tablet by mouth daily. 02/27/25 02/27/26 Yes Cedrick Franz MD hydroCHLOROthiazide (HYDRODiuril) 25 MG tablet Take 2 tablets by mouth daily. Yes Provider, Historical lisinopril 20 MG tablet Take 1 tablet by mouth nightly. Patient taking differently: Take 2 tablets by mouth nightly. Yes Provider, Historical Multiple Vitamins-Minerals (CENTRUM SILVER 50+WOMEN PO) Take by mouth. Yes Provider, Historical PARoxetine (Paxil) 20 MG tablet Take 1 tablet by mouth daily. Yes Provider, Historical atorvastatin (Lipitor) 40 MG tablet Take 1 tablet by mouth nightly. Patient not taking: Reported on 05/14/2025 03/19/25 03/19/25 Jose C Nicholson MD mupirocin (Bactroban) 2 % ointment Apply 1 Application topically 2 times a day. Apply to each nostril twice daily for 5 days before surgery. 05/14/25 Russ Buchanan MD naloxone (Narcan) 4 mg/0.1 mL nasal spray 1. Give 1 spray in nostril for no/slow breathing or cannot wake after opioid use 2. Call 911 3. Repeat in other nostril if symptoms continue Patient not takin. Give 1 spray in nostril for no/slow breathing or cannot wake after opioid use 2. Call 911 3. Repeat in other nostril if symptoms continue Reported on 05/14/2025 03/14/25 Sarah Alas APRN Physical exam: Visit Vitals BP 130/79 Pulse (!) 49 SpO2 98% Constitutional: well developed, well nourished, and in no acute distress Eye: equal, round, and reactive Ears, Nose, Throat: normal atraumatic, no neck masses Respiratory: Normal expansion. Clear to auscultation. No rales, rhonchi, or wheezing. Cardiac: Heart sounds are normal. Regular rate and rhythm without murmur, gallop or rub. Abdomen: Soft, non-tender, normal bowel sounds; no bruits, organomegaly or masses. Musculoskeletal: normal strength, tone, and muscle mass, no deformities Psychiatric: oriented to time, place and person, mood and affect are within normal limits Neurologic: normal sensation and reflexes and motor intact Skin: [place], warm, well perfused Labs in last 18 hours: CBC WBC 8.48 Hb 12.6 Plt 271 Hct 39.4 ANC 5.26 INR 1.0, PTT 35, Anti-Xa ?? BMP Na 140 Cl 101 BUN 23 Glu 105 (H) K 3.7 Co2 25 Cr 0.98 Ca 10.2 iCa ?? Mg ??, Phos ?? Lactate ?? LFT AST 32 AlkPhos 132 T Prot 7.6 ALK 18 Bili 0.5 Alb ?? D.Bili ?? Results from last 7 days Lab Units 05/14/25 1418 HEMOGLOBIN A1C % 5.4 Imaging: CT Angiogram chest [place] 12/26/2024 ([place] [...] below recommendations. CT angio Chest from 01/14/2025 ([facility]) - Thoracoabdominal aneurysmal atherosclerotic aortic disease with maximal dimension of 6.2x6.0cm in the proximal DESCENDING THORACIC AORTA associated with significant intra luminal layered thrombus and extending to the level of the renal arteries. - AORTIC ROOT: 4.0 cm measured [id number] mid ASCENDING THORACIC AORTA: 4.4 cm distal ASCENDING THORACIC AORTA: 4.5 cm mid AORTIC ARCH: 4.5 cm - Calcified atherosclerotic changes of the coronary arteries, precluding precise assessment with CT. ECHO 11/2024: EF 55%, trace AI LHC 03/12/25: No obstructive epicardial CAD noted Impression: Joi Marcial is a 70 y.o. female with a thoracoabdominal aneurysm returning to clinic for scheduling of the Cardiac Surgery portion of a staged intervention. She is now 2 months out from her carotid stenting and remains on DAPT. Takes a daily beta jenny. NYHA Class II. Plan: - Schedule for Ascending Aortic Replacement with Hemiarch, Arch Debranching, Circulatory Arrest on 05/27/25 - Informed consent obtained and uploaded to Epic - Labs and CXR today - Hold Plavix 1 week prior to surgery [1] Past Medical History: Diagnosis Date Aneurysm (CMS/HCC) 2024 Hyperlipidemia Hypertension 1989 Obesity [2] Past Surgical History: Procedure Laterality Date BACK SURGERY CHOLECYSTECTOMY 1971 FOOT SURGERY HYSTERECTOMY TOTAL HIP ARTHROPLASTY Left [3] No Known Allergies Cosigned by Jose C Nicholson MD at 05/16/2025 5:08 PM EDT Associated attestation - Jose C Nicholson MD - 05/16/2025 5:08 PM EDT I saw and evaluated the patient with the resident/fellow. I discussed the case with the resident/fellow and agree with the findings and plan as documented. The plan that was put in place after long discussion with our vascular surgery colleagues is to proceed with phase 1 which is a sternotomy and ascending aortic and hemiarch replacement with debranching of the innominate and left carotid arteries. The patient understands the high-risk nature of the procedure and wishes to proceed, face to we will be done by our vascular surgery colleagues which will entail endovascular repair of the deep branched arch and descending aorta. The benefits and risks of the procedure including bleeding, infection, poor wound healing, OK, stroke, injury to any organs in the body, heart block requiring pacemaker, arrhythmia, and were explained to the patient and her family. The potential need for blood transfusion with its risks was discussed with the patient. * Progress Notes - Jose C Nicholson MD - 05/14/2025 12:30 PM EDT To do Ms. Leiva on May 27 documented in this encounter Plan of Treatment Upcoming Encounters Date Type Department Care Team (Late st Contact Info) Description 06/25/2025 9:45 AM EDT Office Visit [facility] Cardiothoracic [address], [address] [place] [address] Jose C Nicholson MD [address] [place] [address] 08/07/2025 12:20 PM EST Appointment [facility] [address] [place] [address] 08/07/2025 1:40 PM EST Office Visit [facility] Comprehensive Vascular Clinic [address] [place] [address] Cedrick Franz MD [address] [place] [address] Scheduled Orders Name Type Priority Associated Diagnoses Orde r Schedule Methicillin Resistant Staphylococcus aureus (MRSA) by PCR Microbiology Routine 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 CRITICAL RESULT: No. COMMUNICATION: Per this written report. By electronically signing this report, I, the attending physician, attest that I have personally reviewed the images/data for the above examination(s) and agree with the final edited report. Drafted by Silviano Hull MD on 05/14/2025 2:33 PM Final report signed by Cheng Rod MD on 05/14/2025 2:50 PM Narrative 05/14/2025 2:50 PM EDT CLINICAL INDICATION: Preop cardiac surgery TECHNIQUE: XR CHEST 2 VIEWS COMPARISON: CTA chest OSH 01/14/2025 FINDINGS: Prominent upper mediastinal silhouette, consistent with known aneurysmal dilatation of the aortic arch and descending aorta as seen on comparison CTA chest. Cardiac silhouette is within normal limits. No focal consolidation. No effusion or pneumothorax. Procedure Note Cheng Rod MD - 05/14/2025 CLINICAL INDICATION: Preop cardiac surgery TECHNIQUE: XR CHEST 2 VIEWS COMPARISON: CTA chest OSH 01/14/2025 FINDINGS: Prominent upper mediastinal silhouette, consistent with known aneurysmaldilatation of the aortic arch and descending aorta as seen on comparisonCTA chest. Cardiac silhouette is within normal limits. No focalconsolidation. No effusion or pneumothorax. IMPRESSION: No acute findings. CRITICAL RESULT: No. COMMUNICATION: Per this written report. By electronically signing this report, I, the attending physician, attestthat I have personally reviewed the images/data for the aboveexamination(s) and agree with the final edited report. Drafted by Silviano Hull MD on 05/14/2025 2:33 PM Final report signed by Cheng Rod MD on 05/14/2025 2:50 PM Jose C Nicholson MD IMG XR PROCEDURES Final Result * Type and screen (05/14/2025 2:18 PM EDT) ABO/Rh A Positive 05/14/2025 2:07 PM EDT BLOOD BANK Antibody Screen Negative 05/14/2025 2:07 PM EDT BLOOD BANK Specimen Expiration 05/17/2025 23:59 05/14/2025 2:07 PM EDT BLOOD BANK Blood Venous blood specimen / Unknown Venipuncture / Unknown 05/14/2025 2:18 PM EDT 05/14/2025 2:21 PM EDT Jose C Nicholson MD LAB BLOOD BANK TEST ORDERABLES Final Result Performing Organization Address [facility] Co de Phone Number BLOOD BANK [address] [place] [address], * APTT (05/14/2025 2:18 PM EDT) aPTT 35 25 - 35 sec LAB COAGULATION METHOD 05/14/2025 4:07 PM EDT [facility] Blood Venous blood specimen / Unknown Venipuncture / Unknown 05/14/2025 2:18 PM EDT 05/14/2025 2:21 PM EDT Jose C Nicholson MD LAB BLOOD ORDERABLES Final Resu lt Performing Organization Address [facility] Co de Phone Number [facility] [address] [place] [address] * Protime-INR (05/14/2025 2:18 PM EDT) Prothrombin Time 13.1 12.0 - 14.3 sec LAB COAGULATION METHOD 05/14/2025 4:07 PM EDT [facility] INR 1.0 0.9 - 1.1 LAB COAGULATION METHOD 05/14/2025 4:07 PM EDT [facility] Blood Venous blood specimen / Unknown Venipuncture / Unknown 05/14/2025 2:18 PM EDT 05/14/2025 2:21 PM EDT Narrative [facility] - 05/14/2025 4:07 PM EDT OPTIMAL INR RANGES FOR PATIENT ON ORAL ANTICOAGULANT THERAPY Prevention of venous thromboembolism INR 2.0 to 3.0 In patients with heart disease: Atrial fibrillation INR 2.0 to 3.0 Valvular heart disease INR 2.0 to 3.0 Tissue heart valves INR 2.0 to 3.0 Mechanical prosthetic valves INR 2.5 to 3.5 Prevention of recurrent OK INR 2.5 to 3.5 Jose C Nicholson MD LAB BLOOD ORDERABLES Final Resu lt [facility] [address] [place] [address] * Hemoglobin A1c (05/14/2025 2:18 PM EDT) Hemoglobin A1c 5.4 <5.7 % 05/14/2025 4:46 PM EDT [facility] Blood Venous blood specimen / Unknown Venipuncture / Unknown 05/14/2025 2:18 PM EDT 05/14/2025 2:21 PM EDT Narrative [facility] - 05/14/2025 4:46 PM EDT HA1C Interpretive Data: Diagnosis of Diabetes: Diabetic > or = 6.5% Pre-diabetic 5.7 to 6.4% Non-diabetic < or = 5.6% Glycemic Targets for Type I and Type II Diabetics: Non- Adults <7.0% Adults <6.0% Children and Adolescents <7.5% Source: [place] [employer]. Standards of medical care in diabetes,2017. Diabetes Care.2017:40 (suppl 1):S1-S135. us Jose C Nicholson MD LAB BLOOD ORDERABLES Final Resu lt [facility] [address] [place] [address] * (ABNORMAL) Comprehensive metabolic panel (05/14/2025 2:18 PM EDT) Glucose, Plasma 105(H) 74 - 99 mg/dL 05/14/2025 4:38 PM EDT [facility] BUN, Plasma 23 8 - 23 mg/dL 05/14/2025 4:38 PM EDT [facility] Creatinine, Plasma 0.98 0.60 - 1.10 mg/dL 05/14/2025 4:38 PM EDT [facility] BUN/Creatinine Ratio 23 05/14/2025 4:38 PM EDT [facility] Sodium, Plasma 140 136 - 145 mmol/L 05/14/2025 4:38 PM EDT [facility] Potassium, Plasma 3.7 3.6 - 4.9 mmol/L 05/14/2025 4:38 PM EDT [facility] Chloride, Plasma 101 97 - 107 mmol/L 05/14/2025 4:38 PM EDT [facility] CO2, Plasma 25 22 - 29 mmol/L 05/14/2025 4:38 PM EDT [facility] Anion Gap 14 6 - 16 mmol/L 05/14/2025 4:38 PM EDT [facility] Total Calcium, Plasma 10.2 8.9 - 10.2 mg/dL 05/14/2025 4:38 PM EDT [facility] Total Protein 7.6 6.3 - 7.9 g/dL 05/14/2025 4:38 PM EDT [facility] Albumin, Plasma 4.7 3.5 - 5.2 g/dL 05/14/2025 4:38 PM EDT [facility] AST, Plasma 32 10 - 35 U/L 05/14/2025 4:38 PM EDT [facility] ALT, Plasma 18 10 - 35 U/L 05/14/2025 4:38 PM EDT [facility] Alkaline Phosphatase, Plasma 132 46 - 142 U/L 05/14/2025 4:38 PM EDT [facility] Total Bilirubin, Plasma 0.5 0.2 - 1.1 mg/dL 05/14/2025 4:38 PM EDT [facility] eGFRcr 61.8 mL/min/1.7 3m*2 05/14/2025 4:38 PM EDT [facility] Comment:Reported eGFRcr in m L/min/1.73m2 is based the CKD-EPI 2020 equation that does not use a race coefficient. Blood Venous blood specimen / Unknown Venipuncture / Unknown 05/14/2025 2:18 PM EDT 05/14/2025 2:21 PM EDT us Jose C Nicholson MD LAB BLOOD ORDERABLES Final Resu lt [facility] [address] [place] [address] * CBC and Differential (05/14/2025 2:18 PM EDT) WBC Count 8.48 3.70 - 10.30 10*3/uL LAB HEMATOLOGY METHOD 05/14/2025 3:48 PM EDT [facility] RBC Count 4.42 3.90 - 5.20 10*6/uL LAB HEMATOLOGY METHOD 05/14/2025 3:48 PM EDT [facility] HGB 12.6 11.2 - 15.7 g/dL LAB HEMATOLOGY METHOD 05/14/2025 3:48 PM EDT [facility] HCT 39.4 34.0 - 45.0 % LAB HEMATOLOGY METHOD 05/14/2025 3:48 PM EDT [facility] Platelet Count 271 155 - 369 10*3/uL LAB HEMATOLOGY METHOD 05/14/2025 3:48 PM EDT [facility] MCV 89 79 - 98 fL LAB HEMATOLOGY METHOD 05/14/2025 3:48 PM EDT [facility] MCH 28.5 26.0 - 32.0 pg LAB HEMATOLOGY METHOD 05/14/2025 3:48 PM EDT [facility] MCHC 32.0 30.7 - 35.5 g/dL LAB HEMATOLOGY METHOD 05/14/2025 3:48 PM EDT [facility] RDW 14.3 11.5 - 14.5 % LAB HEMATOLOGY METHOD 05/14/2025 3:48 PM EDT [facility] MPV 11.4 8.8 - 12.5 fL LAB HEMATOLOGY METHOD 05/14/2025 3:48 PM EDT [facility] nRBC 0.0 <=0.0 per 100 WBCs LAB HEMATOLOGY METHOD 05/14/2025 3:48 PM EDT [facility] Differential Type Automated LAB HEMATOLOGY METHOD 05/14/2025 3:48 PM EDT [facility] Neutrophils % 62 % LAB HEMATOLOGY METHOD 05/14/2025 3:48 PM EDT [facility] Lymphocytes % 28 % LAB HEMATOLOGY METHOD 05/14/2025 3:48 PM EDT [facility] Monocytes % 7 % LAB HEMATOLOGY METHOD 05/14/2025 3:48 PM EDT [facility] Eosinophils % 2 % LAB HEMATOLOGY METHOD 05/14/2025 3:48 PM EDT [facility] Basophils % 1 % LAB HEMATOLOGY METHOD 05/14/2025 3:48 PM EDT [facility] Immature Granulocytes % 0 % LAB HEMATOLOGY METHOD 05/14/2025 3:48 PM EDT [facility] Neutrophils Absolute 5.26 1.60 - 6.10 10*3/uL LAB HEMATOLOGY METHOD 05/14/2025 3:48 PM EDT [facility] Lymphocytes Absolute 2.37 1.20 - 3.90 10*3/uL LAB HEMATOLOGY METHOD 05/14/2025 3:48 PM EDT [facility] Monocytes Absolute 0.58 0.30 - 0.90 10*3/uL LAB HEMATOLOGY METHOD 05/14/2025 3:48 PM EDT [facility] Eosinophils Absolute 0.20 0.00 - 0.50 10*3/uL LAB HEMATOLOGY METHOD 05/14/2025 3:48 PM EDT [facility] Basophils Absolute 0.04 0.00 - 0.10 10*3/uL LAB HEMATOLOGY METHOD 05/14/2025 3:48 PM EDT [facility] Immature Granulocytes Absolute 0.03 0.00 - 0.06 10*3/uL LAB HEMATOLOGY METHOD 05/14/2025 3:48 PM EDT [facility] Blood Venous blood specimen / Unknown Venipuncture / Unknown 05/14/2025 2:18 PM EDT 05/14/2025 2:21 PM EDT Narrative [facility] - 05/14/2025 3:48 PM EDT Therapeutic decision making should be based on absolute values, rather than percentages. us Jose C Nicholson MD LAB BLOOD ORDERABLES Final Resu lt [facility] [address] [place] [address] * ECG Adult (05/14/2025 1:47 PM EDT) EKG DIAGNOSIS CLASS Borderline Normal MUSE ECG Ventricular Rate 58 BPM MUSE ECG Atrial Rate 58 BPM MUSE ECG UT Interval 168 ms MUSE ECG QRSD Interval 82 ms MUSE ECG QT Interval 444 ms MUSE ECG QTC Interval 435 ms MUSE ECG P [place] 67 degrees MUSE ECG R [place] 79 degrees MUSE ECG T Wave [place] 91 degrees MUSE ECG Diagnosis Sinus bradycardia with frequent premature ventricular complexes MUSE ECG Diagnosis Otherwise normal ECG MUSE ECG Diagnosis MUSE ECG Diagnosis Confirmed by Gwen Simpson ([id number]) on 05/15/2025 6:37:37 AM MUSE ECG 05/14/2025 1:47 PM EDT 05/15/2025 6:37 AM EDT us Jose C Nicholson MD ECG ORDERABLES Final Result MUSE ECG documented in this encounter Visit Diagnoses Diagnosis 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) documented in this encounter Additional Health Concerns Assessment Noted Time A fall risk assessment has been complete d for the patient 05/14/2025 12:57 PM EDT A Body Mass Index follow-up plan has been documented for the patient 05/16/2025 5:11 PM EDT documented as of this encounter Care Teams Primary Counselor Relationship Specialty Start Date End Date Edwardo Sheehan MD [address] [place] [address] PCP - General 12/19/22 Jose R Umana MD [address] [facility] [address] [place] [address] Referring Physician Cardiology 01/23/25 Kevin Mancera MD [address] [facility] [address] [place] [address] Referring Physician 01/31/25 documented as of this encounter
--- OUTSIDE RECORDS SUMMARY | 2025-05-14 14:22 | XMS_ITS | Encounter Summary ---
Author Organization Healthcare Address [address] 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 Patient declined 03/14/2025 Do you belong to any clubs o r organizations such as sabianism groups, unions, fraternal or athletic groups, or [...] drinks on one occasion? Patient declined 03/14/2025 [facility] - [...] the past 12 months has th e [employer], gas, oil, or water company threatened to [...] tablet by mouth 2 times a day. apixaban (Eliquis) 5 MG tablet Take 1 tablet by mouth 2 times a day. 60 tablet 2 06/07/2025 6 atorvastatin (Lipitor) 20 MG tablet Take 1 tablet by mouth daily. 02/25/2025 cholecalciferol (D-5000) 5,000 Units tablet Take 1 tablet by mouth 1 time each day. clopidogrel (Plavix) 75 MG tablet Take 1 tablet by mouth daily. 30 tablet 11 02/27/2025 6 docusate sodium 100 MG capsule Take 100 mg by mouth 2 times a day. 60 capsule 06/07/2025 5 HYDROcodone-acetam inophen ([place]) 5-325 MG tablet Take 1 tablet by mouth every 4 hours as needed for moderate pain. 30 tablet 06/07/2025 5 metoprolol tartrate (Lopressor) 25 MG tablet Take 1 tablet by mouth 2 times a day. 60 tablet 2 06/07/2025 6 Multiple Vitamins-Minerals (CENTRUM SILVER 50+WOMEN PO) Take by mouth. naloxone (Narcan) 4 mg/0.1 mL nasal spray 1. Give 1 spray in nostril for no/slow breathing or cannot wake after opioid use 2. Call 911 3. Repeat in other nostril if symptoms continue 1 each 03/14/2025 PARoxetine (Paxil) 20 MG tablet Take 1 tablet by mouth daily. senna (Senokot) 8.6 MG tablet Take 1 tablet by mouth nightly. 30 tablet 06/07/2025 5 amLODIPine (Norvasc) 2.5 MG tablet Take 1 tablet by mouth daily. 05/05/2025 5 aspirin 81 MG EC tablet Take 1 tablet by mouth daily. 30 tablet 11 02/27/2025 5 atorvastatin (Lipitor) 40 MG tablet Take 1 tablet by mouth daily. 30 tablet 11 03/19/2025 5 bisoprolol (Zebeta) 10 MG tablet Take 1 tablet by mouth nightly. 5 hydroCHLOROthiazid e (HYDRODiuril) 50 MG tablet Take 1 tablet by mouth daily. 5 lisinopril 40 MG tablet Take 1 tablet by mouth nightly. 5 mupirocin (Bactroban) 2 % ointmentIndication s:Methicillin-Resi stant S. Aureus Nasal Colonization Apply 1 Application topically 2 times a day. Apply to each nostril twice daily for 5 days before surgery. 15 g 05/14/2025 5 documented as of this encounter Plan of Treatment Upcoming Encounters Date Type Department Care Team (Late st Contact Info) Description 06/25/2025 9:45 AM EDT [facility] [address], [address] [place] [address] Jose C Nicholson MD [address] [place] [address] 08/07/2025 12:20 PM EST Appointment [facility] [address] [place] [address] 08/07/2025 1:40 PM EST Office Visit [facility] [address] 5th Floor [address] [place] [address] Cedrick Franz MD [address] [place] [address] documented as of this encounter Procedures Procedure Name Priority Date/Time Associated Diagnosis Comments XR CHEST 2 VIEWS Routine 05/14/2025 2:32 PM EDT Aneurysm of aortic arch without [...] signing this report, I, the attending physician, attatulthat I have personally reviewed the images/data for the aboveexamination(s) and agree with the final edited report. Drafted by Silviano Hull MD on 05/14/2025 2:33 PM Final report signed by Chegn Rod MD on 05/14/2025 2:50 PM us Jose C Nicholson MD IMG XR PROCEDURES Final Result documented in this encounter [...] documented as of this encounter Care Teams Creping Machine Operator Relationship Specialty Start Date End Date Edwardo Sheehan MD [address] [place] [address] PCP - General 12/19/22 Jose R Umana MD [address] [facility] [address] [place] [address] Referring Physician Cardiology 01/23/25 Kevin Mancera MD [address] [place] [address] [address] [place] [id number] Referring Physician 01/31/25 documented as of this encounter
--- OUTSIDE RECORDS SUMMARY | 2025-05-21 08:51 | XMS_ITS | Encounter Summary ---
Author Organization [facility] Address [address] 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) Procedures VAS US Carotid Duplex Bilateral Sarah Alas APRN [address] [address] Phone: tel: fax: Referral ID Status Reason Start Date Expiration Date V isits Requested Visits Authorized [id number] Closed Perform Procedure 03/14/2025 09/13/2026 1 1 Reason for Visit * Imaging (Routine) - Closed Specialty Diagnoses / Procedures Referred By Selma petty Referred To Contact Cardiology Diagnoses 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) Asymptomatic stenosis of right carotid artery 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) Procedures VAS US Carotid Duplex Bilateral Sarah Alas APRN [address] [facility] [address] [place] [address] Phone: tel: fax: Referral ID Status Reason Start Date Expiration Date V isits Requested Visits Authorized [id number] Closed Perform Procedure 03/14/2025 09/13/2026 1 1 Encounter Details Date Type Department Care Team (Latest Contact Info) Description 05/21/2025 8:51 AM EDT - 05/21/2025 11:59 PM EDT Hospital Encounter [facility] [address] [facility] 5th Floor [address], [address] [place] [address] 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 Patient declined 03/14/2025 Do you belong to any clubs o r organizations such as cheondoism groups, unions, fraternal or athletic groups, or [...] drinks on one occasion? Patient declined 03/14/2025 [facility] Occupat ional Health - Occupational Stress [...] 12 months has th e electric, gas, [place], or water [employer] threatened to shut off services in your [...] day. 60 capsule 06/07/2025 5 HYDROcodone-acetam inophen ([place]) 5-325 MG tablet Take 1 tablet by [...] 1 tablet by mouth daily. 30 tablet 03/19/2025 5 bisoprolol (Zebeta) 10 MG tablet [...] 5 days before surgery. 15 g 05/14/2025 documented as of this encounter Plan of Treatment Upcoming Encounters Date Type Department Care Team (Late st Contact Info) Description 06/25/2025 9:45 AM EDT Office Visit [facility] Cardiothoracic [address], [address] [place] [address] Jose C Nicholson MD [address] [facility] [address] [place] [address] 08/07/2025 12:20 PM EST Appointment [facility] [address] [place] [address] 08/07/2025 1:40 PM EST Office Visit [facility] [address] 5th Floor [address] [place] [address] Cedrick Franz MD [address] [facility] [address] [place] [address] documented as of this encounter Procedures Procedure Name Priority Date/Time Associated Diagnosis Comments VAS US CAROTID DUPLEX BILATERAL Routine 05/21/2025 9:10 AM EDT 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 No significant carotid plaque is demonstrated. Flow is present in the CCA, ICA, and ECA. ICA velocities do not demonstrate evidence of a hemodynamically significant stenosis (less than 50%). Left: Mild, irregular, homogenous plaque is demonstrated in the bifurcation and proximal ICA. Flow is present in the CCA, ICA, and ECA. ICA velocities do not demonstrate evidence of a hemodynamically significant stenosis (less than 50%). Vertebral artery flow is antegrade, bilaterally. Subclavian artery flow is multiphasic, bilaterally. COMMUNICATION: Per this written report. Preliminary report signed by Rachel Jennings RVT on 05/21/2025 9:26 AM By electronically signing this report, I, the attending physician, attest that I have personally reviewed the images/data for the above examination(s) and I agree with the final edited report. Drafted by Rachel Jennings RVT on 05/21/2025 9:23 AM Final report signed by Analisa Reilly MD on 05/25/2025 3:11 PM Narrative 05/25/2025 3:11 PM EDT CLINICAL INDICATION: Surveillance for carotid artery stenosis S/P Right TCAR TECHNIQUE: Non-invasive, real time duplex exam of the extracranial carotid circulation with Doppler ultrasonic waveform and spectral analysis was performed. COMPARISON: None. FINDINGS: Right: CCA -proximal to stent: 44 cm/s ECA: 43 cm/s ICA -stented: proximal end stent: 40 cm/s proximal stent: 41 cm/s mid stent: 46 cm/s distal stent: 61 cm/s distal end stent: 42 cm/s Distal ICA -distal to stent: 65 cm/s Vertebral A: 47 cm/s Subclavian A: 69 cm/s Left: CCA: 54 cm/s ECA: 34 cm/s ICA: 59/14 cm/s ICA/CCA ratio: 1.0 Vertebral A: 58 cm/s Subclavian A: 160 cm/s Procedure Note Repella, Analisa L, MD - 05/25/2025 CLINICAL INDICATION: Surveillance for carotid artery stenosis S/P Right TCAR TECHNIQUE: Non-invasive, real time duplex exam of the extracranial carotidcirculation with Doppler ultrasonic waveform and spectral analysis wasperformed. COMPARISON: None. FINDINGS: Right: CCA -proximal to stent: 44 cm/s ECA: 43 cm/s ICA -stented: proximal end stent: 40 cm/s proximal stent: 41 cm/s mid stent: 46 cm/s distal stent: 61 cm/s distal end stent: 42 cm/s Distal ICA -distal to stent: 65 cm/s Vertebral A: 47 cm/s Subclavian A: 69 cm/s Left: CCA: 54 cm/s ECA: 34 cm/s ICA: 59/14 cm/s ICA/CCA ratio: 1.0 Vertebral A: 58 cm/s Subclavian A: 160 cm/s IMPRESSION: Right: S/P TCAR. No significant carotid plaque is demonstrated. Flow ispresent in the CCA, ICA, and ECA. ICA velocities do not demonstrateevidence of a hemodynamically significant stenosis (less than 50%). Left: Mild, irregular, homogenous plaque is demonstrated in thebifurcation and proximal ICA. Flow is present in the CCA, ICA, and ECA.ICA velocities do not demonstrate evidence of a hemodynamicallysignificant stenosis (less than 50%). Vertebral artery flow is antegrade, bilaterally. Subclavian artery flow is multiphasic, bilaterally. COMMUNICATION: Per this written report. Preliminary report signed by Rachel Jennings RVT on 05/21/2025 9:26 AM By electronically signing this report, I, the attending physician, attestthat I have personally reviewed the images/data for the aboveexamination(s) and I agree with the final edited report. 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) documented in this encounter Additional Health Concerns Assessment Noted Time A fall risk assessment has been complete d for the patient 05/21/2025 9:30 AM EDT A Body Mass Index follow-up plan has been documented for the patient 05/21/2025 10:10 AM EDT documented as of this encounter Care Teams Riveter Portable Machine Relationship Specialty Start Date End Date Edwardo Sheehan MD [address] [place] [address] PCP - General 12/19/22 Jose R Umana MD [address] [facility] [address] [place] [address] Referring Physician Cardiology 01/23/25 Kevin Mancera MD [address] [place] [address] [place], [place] [id number] Referring Physician 01/31/25 documented as of this encounter
--- OUTSIDE RECORDS SUMMARY | 2025-05-21 10:20 | XMS_ITS | Encounter Summary ---
Author Organization Healthcare Address [address] 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 Patient declined 03/14/2025 Do you belong to any clubs o r organizations such as orthodox groups, unions, fraternal or athletic groups, or [...] drinks on one occasion? Patient declined 03/14/2025 [facility]at ional Health - [...] Sign Reading Time Taken Comments Blood Pressure 114/68 05/21/2025 9:25 AM EDT Pulse 70 05/21/2025 9:25 AM EDT Temperature 36.6 C (97.9 F) 05/21/2025 9:25 AM EDT Respiratory Rate - - Oxygen Saturation - - Inhaled Oxygen Concentration - - Weight 71.5 kg (157 lb 10.1 oz) 05/21/2025 9:25 AM EDT Height 167.6 cm (5' 6 ) 05/21/2025 9:25 AM EDT Body Mass Index 25.44 05/21/2025 9:25 AM EDT documented in this encounter Miscellaneous Notes * Progress Notes - Cedrick Franz MD - 05/21/2025 10:20 AM EDT Dear Edwardo Sheehan MD, HPI 69 year old woman presents with f/u for Right TCAR for ACAS, asymptomatic and doing well. On ASA, stopping plavix today. 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 Evaluated at [facility] with plans for staged repair including elephant trunk followed by endovascular repair. She presents today for second opinion and as is closer to home with a shorter drive. CTA shows maximal diameter of 6.2 cm in descending thoracic aorta. Additionally she has 70-80% stenosis of proximal right ICA and left POST FORM REMOVER high grade stenosis. Denies back/chest/abdominal pain or symptoms of TIA/stroke. She does report BLE neuropathy and hip OA. PMH significant for HTN, HLD, OA requiring steroid injections, cerebral venous sinus thrombosis, former smoker quit in 2018. No kno wn Fhx of aortic aneurysm. She takes Eliquis & statin. Vascular Surgery History: (Date - Procedure - Hospital - Doctor) 03/13/2025 - RIGHT TCAR, shockwave - Maria M Garcia personally and independently reviewed and interpreted the Vascular Lab Images from today's visit which showed: Right: CCA -proximal to stent: 44 cm/s [...] of a hemodynamicallysignificant stenosis (less than 50%). 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 year old female who we saw today in clinic. 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 Plan is for a staged approach. Dr. Nicholson and I discussed the right 80% ICA lesion, and this will need to be addressed prior to ascending aorta, arch, and common carotid debranching procedure. So the plan is: Right TCAR - done Coronary angiogram - done Open ascending aortic repair with innominate and LCCA debranching - May 27 Zone 2 TEVAR TBE Endovascular repair of TAAA with 4v PMEG tube to zone 9 This plan was discussed at length with Mrs. Marcial. OR planned for May 27 - Open ascending aortic repair with innominate and LCCA debranching. A comprehensive discussion of nonoperative, best medical therapy, endovascular, open surgical and hybrid surgical options was had with the patient. We discussed the risk of periprocedural complications related to major vascular surgery such as stroke, [place], prolonged ventilation, tracheostomy, pulmonary embolism, and even a small risk of . We also discuss specific complications related to the s urgery. Patient understood the risks and agreed to undergo an operation. We will see her in OR on May 27 documented in this encounter Plan of Treatment Upcoming Encounters Date Type Department Care Team (Late st Contact Info) Description 06/25/2025 9:45 AM EDT Office Visit [facility] Cardiothoracic [address], [address] [place] [address] Jose C Nicholson MD [address] [facility] [address] [place] [address] 08/07/2025 12:20 PM EST Appointment [facility] Radiology [address] [place] [address] 08/07/2025 1:40 PM EST Office Visit [facility] [address] 5th Floor [address] [place] [address] Cedrick Franz MD [address] [facility] [address] [place] [address] documented as of this encounter Visit Diagnoses Diagnosis Asymptomatic stenosis of right carotid artery- Primary 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) documented in this encounter Additional Health Concerns Assessment Noted Time A fall risk assessment has been complete d for the patient 05/21/2025 9:30 AM EDT A Body Mass Index follow-up plan has been documented for the patient 05/21/2025 10:10 AM EDT documented as of this encounter Care Teams Real Estate Site Analyst Relationship Specialty Start Date End Date Edwardo Sheehan MD [address] [place] [address] PCP - General 12/19/22 Jose R Umana MD [address] [facility] [address] [place] [address] Referring Physician Cardiology 01/23/25 Kevin Mancera MD [address] [facility] [address] [place] [address] Referring Physician 01/31/25 documented as of this encounter
--- OUTSIDE RECORDS SUMMARY | 2025-05-27 05:34 | XMS_ITS | Encounter Summary ---
Author Organization [facility] Address [address] 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) Procedures CT Angio Chest Meghan Morris APRN, DNP [address] [address] Phone: tel: fax: Referral ID Status Reason Start Date Expiration Date V isits Requested Visits Authorized [id number] Pending Review 06/05/2025 12/05/2026 1 1 * Consultation (Routine) - Authorized Specialty Diagnoses / Procedures Referred By Contac t Referred To Contact Vascular Surgery / [facility] Diagnoses 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) Meghan Morris APRN, DNP [id number] [place] [address] Phone: tel: fax: Cedrick Franz MD [address] [facility] [address] [place] [address] Phone: tel: fax: Referral ID Status Reason Start Date Expiration Date Visits Requested Visits Authorized [id number] Authorized Specialty Services Required 06/05/2025 12/05/2026 1 1 Scheduling Instructions Please schedule with Dr Franz 6 weeks with CTA C/A/P * Imaging (Routine) - Pending Review Specialty Diagnoses / Procedures Referred By Selma petty Referred To Contact Radiology Diagnoses 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) Procedures CT Angio Abdomen Pelvis Cedrick Franz MD [address] [facility] [address] [place] [address] Phone: tel: fax: Referral ID Status Reason Start Date Expiration Date V isits Requested Visits Authorized [id number] Pending Review 06/05/2025 12/05/2026 1 1 Reason for Visit * Auth/Cert (Routine) Specialty Diagnoses / Procedures Referred By Selma petty Referred To Contact Diagnoses 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] Procedures IA -AORT GRF W/CARD BYP F/AORTIC DISSECTION Ascending Aortic Replacement, Hemiarch, Circulatory Arrest, Aortic Arch Debranching Jose C Nicholson MD [address] [facility] [address] [place] [address] Phone: tel: fax: [facility] [address] [place] [address] Phone: tel: Referral ID Status Reason Start Date Expiration Date Visits Re quested Visits Authorized [id number] 1 1 Encounter Details Date Type Department Care Team (Latest Contact Info) Description 05/27/2025 5:34 AM EDT - 06/07/2025 12:10 PM EDT Hospital Encounter [facility] [address] [place] [address] Jose C Nicholson MD [address] [place] [address] 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) (Primary Dx); 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); Chronic obstructive pulmonary disease, unspecified COPD type (CMS/HCC); H/O aortic arch replacement; H/O ascending aortic replacement; Hyperlipidemia, unspecified hyperlipidemia type; Poorly-controlled hypertension; H/O transcarotid artery revascularization (TCAR); Cardiac volume overload; Agitation requiring sedation protocol; Peripheral vascular disease (CMS/HCC); BMI 25.0-25.9,adult; Cerebral venous sinus thrombosis; Delirium due to multiple etiologies; History of right common carotid artery stent placement; Left upper extremity swelling; Atrial fibrillation, unspecified type (CMS/HCC); Hypokalemia; Asymptomatic stenosis of right carotid artery; Pleural effusion; Leukocytosis, unspecified type Discharge Disposition: Home or Self Care Social [...] been afraid of your partner or ex-partner? No 05/30/2025 Within the last year, have y ou been humiliated or emotionally abused in other ways by your partner or ex-partner? No Within the last year, have y ou been kicked, hit, slapped, or otherwise physically hurt by your partner or ex-partner? No 05/30/2025 Within the last year, have y ou been raped or forced to have any kind of sexual activity by your partner or ex-partner? No 05/30/2025 Social Connection and Isolation Panel Answer Date Recorded In a typical week, how many times do you talk on the phone with family, friends, or neighbors? Patient unable to answer 05/30/2025 How often do you get togethe r with friends or relatives? Patient unable to answer 05/30/2025 How often do you attend chur or mandaeism services? Patient unable to answer 05/30/2025 Do you belong to any clubs o r organizations such as christianity groups, unions, fraternal or athletic groups, or school groups? Patient unable to answer 05/30/2025 How often do you attend meet ings of the clubs or organizations you belong to? Patient unable to answer 05/30/2025 Are you , , di vorced, , never , or living with a partner? Patient unable to answer 05/30/2025 AUDIT-C Answer Date Recorded Q1: How often do you have a drink containing alcohol? Patient unable to answer 05/30/2025 Q2: How many drinks containi ng alcohol do you have on a typical day when you are drinking? Patient unable to answer Q3: How often do you have si x or more drinks on one occasion? Patient unable to answer 05/30/2025 Overall Financial Resource Strain (CARDIA) Answe r Date Recorded How hard is it for you to pa y for the very basics like food, housing, medical care, and heating? Patient unable to answer 05/30/2025 [facility]ational Stress Questionnaire Answer Date Recorded Do you feel stress - tense, restless, nervous, or anxious, or unable to sleep at night because your mind is troubled all the time - these days? Patient unable to answer 05/30/2025 Exercise Vital Sign Answer Date Recorde d On average, how many days pe r week do you engage in moderate to strenuous exercise (like a brisk walk)? Patient unable to answer 05/30/2025 On average, how many minutes do you engage in exercise at this level? Patient unable to answer 05/30/2025 Hunger Vital Sign Answer Date Recorded Within the past 12 months, y ou worried that your food would run out before you got the money to buy more. Never true 05/30/20 25 Within the past 12 months, t he food you bought just didn't last and you didn't have money to get more. Never true 05/30/2025 PRAPARE - Transportation Answer Date Re corded In the past 12 months, has l ack of transportation kept you from medical appointments or from getting medications? No 05/19 In the past 12 months, has l ack of transportation kept you from meetings, work, or from getting things needed for daily living? No 05/30/2025 Housing Stability Vital Sign Answer Juancho e Recorded In the last 12 months, was t here a time when you were not able to pay the mortgage or rent on time? No 05/30/2025 Number of Times Moved in the Last Year Not on fi le 05/30/2025 At any time in the past 12 m [facility], were you homeless or living in a prison (including now)? No 05/30/2025 [facility] Utilities Answer Date Recorded In the past 12 months has th e electric, gas, oil, or water company threatened to shut off services in your home? No 05/30/2025 Comments No Sex and Gender Information Value Date Recorded Sex Assigned at Not on file Legal Sex Female 7:38 PM EDT Gender Identity Not on file Sexual Orientation Not on file documented as of this encounter Last Filed Vital Signs Vital Sign Reading Time Taken Comments Blood Pressure 103/79 06/07/2025 9:00 AM EDT Pulse 85 06/07/2025 10:00 AM EDT Temperature 36.7 C (98.1 F) 06/07/2025 8:00 AM EDT Respiratory Rate 20 06/07/2025 10:00 AM EDT Oxygen Saturation 96% 06/07/2025 10:00 AM EDT Inhaled Oxygen Concentration - - Weight 69 kg (152 lb 1.9 oz) 06/07/2025 6:00 AM EDT Height 167.6 cm (5' 5.98 ) 05/29/2025 7:39 AM ED T Body Mass Index 24.56 05/29/2025 7:39 AM EDT documented in this encounter Functional Status * AUDIT-C Score Answer Date of Assessment Author -1 05/30/2025 2:43 PM EDT Beth Abbott * Question Answer Date of Assessment Author Q1: How often do you have a drink containing alcohol? Patient unable to answer 05/30/2025 2:43 PM EDT Merary Abbott Q2: How many drinks containing alcohol do you have on a typical day when you are drinking? Patient unable to answer 05/30/2025 2:43 PM EDT Merary Abbott Q3: How often do you have six or more drinks on one occasion? Patient unable to answer 05/30/2025 2:43 PM EDT Merary Abbott * Calculated C-SSRS Risk Score (Lifetime/Recent) Answer Date of Assessment Author No Risk Indicated 06/07/2025 8:00 AM EDT Ca Coker RN * Question Answer Date of Assessment Author 1. Wish to be (Past 1 Month) No 06/07/2025 8:00 AM EDT Ca Burr RN 2. Non-Specific Active Suici arnaldo Thoughts (Past 1 Month) No 06/07/2025 8:00 AM EDT Anamaria Burr RN 6. Suicidal Behavior (Lifetime) No 8:00 AM EDT Ca Burr RN documented as of this encounter Medications [...] times a day. 60 capsule 06/07/2025 5 HYDROcodone-acet aminophen ([place]) 5-325 MG tablet Take 1 tablet by mouth every 4 hours as needed for moderate pain. 30 tablet 06/07/2025 5 metoprolol tartrate (Lopressor) 25 MG tablet Take 1 tablet by mouth 2 times a day. 60 tablet 2 06/07/2025 6 Multiple Vitamins-Mineral s (CENTRUM SILVER 50+WOMEN PO) [...] tablet by mouth nightly. 30 tablet 06/07/2025 documented as of this encounter Miscellaneous Notes * Care Plan - Ca Burr RN - 06/07/2025 11:45 AM EDT Problem: Adult Inpatient Plan of Care Goal: Plan of Care Review Outcome: Met Flowsheets Taken 06/07/2025 1143 by Ca Burr RN Progress: improving Taken 06/04/2025 1622 by Ricki Giles RN Plan of Care Reviewed With: patient Taken 06/01/2025 0237 by Elena Patrick RN Outcome Evaluation: Pt agreeable with care plan. Goal: Patient-Specific Goal (Individualized) Outcome: Met Flowsheets (Taken 06/07/2025 08) Patient/Family-Specific Goals (Include Timeframe): Patient will use the call light to mobilize withnurses during this shift. Individualized Care Needs: Safety during hospitalization Anxieties, Fears or Concerns: Would like to be discharged home Goal: Absence of Hospital-Acquired Illness or Injury Outcome: Met Intervention: Identify and Manage Fall Risk Flowsheets (Taken 06/07/2025 0800) Safety Promotion/Fall Prevention: clutter-free environment maintained Intervention: Prevent Skin Injury Flowsheets Taken 06/07/2025 1143 Body Position: neutral body alignment neutral head position Taken 06/07/2025 0925 Skin Protection: incontinence pads utilized Intervention: Prevent and Manage VTE (Venous Thromboembolism) Risk Flowsheets (Taken 06/07/2025 08) VTE Prevention/Management: medication SCDs (sequential compression devices) off Intervention: Prevent Infection Flowsheets (Taken 06/07/2025 1143) Infection Prevention: hand hygiene promoted Goal: Optimal Comfort and Wellbeing Outcome: Met Intervention: Monitor Pain and Promote Comfort Flowsheets (Taken 06/07/2025 1143) Pain Management Interventions: medication (see MAR) Intervention: Provide Person-Centered Care Flowsheets (Taken 06/07/2025 1143) Trust Relationship/Rapport: care explained Problem: Infection Goal: Absence of Infection Signs and Symptoms Outcome: Met Intervention: Prevent or Manage Infection Flowsheets Taken 06/07/2025 1143 by Ca Burr RN Infection Management: aseptic technique maintained Isolation Precautions: precautions maintained Taken 06/04/2025 162 by Ricki Giles RN Fever Reduction/Comfort Measures: lightweight clothing Problem: Skin Injury Risk Increased Goal: Skin Health and Integrity Outcome: Met Intervention: Optimize Skin Protection Flowsheets Taken 06/07/2025 0935 by Ca Burr RN Activity Management: up in chair Taken 06/07/2025 0925 by Ca Burr RN Skin Protection: incontinence pads utilized Taken 06/07/2025 0800 by Ca Burr RN Head of Bed (HOB) Positioning: HOB at 90 degrees Taken 06/02/2025 004 by Simón Cash RN Pressure Reduction Devices: positioning supports utilized Taken 06/01/2025 0237 by Elena Patrick RN Pressure Reduction Techniques: frequent weight shift encouraged heels elevated off bed Intervention: Promote and Optimize Oral Intake Flowsheets (Taken 06/07/2025 1143) Oral Nutrition Promotion: rest periods promoted Nutrition Interventions: meal set-up provided Problem: Cardiovascular Surgery Goal: Effective Bowel Elimination Outcome: Met Intervention: Enhance Bowel Motility and Elimination Flowsheets Taken 06/04/2025 162 by Ricki Giles RN Bowel Elimination Management: hygiene measures promoted toileting offered Taken 06/02/2025 004 by Simón Cash RN Bowel Motility Enhancement: ambulation promoted Goal: Effective Cardiac Function Outcome: Met Goal: Optimal Cerebral Tissue Perfusion Outcome: Met Intervention: Protect and Optimize Cerebral Perfusion Flowsheets Taken 06/07/2025 1143 by aC Burr RN Sensory Stimulation Regulation: care clustered Taken 06/07/2025 0800 by Ca Burr RN Head of Bed (HOB) Positioning: HOB at 90 degrees Taken 06/04/2025 162 by Ricki Giles RN Fever Reduction/Comfort Measures: lightweight clothing Cerebral Perfusion Promotion: blood pressure monitored Taken 06/01/2025 0237 by Elena Patrick, RN Glycemic Management: blood glucose monitored Goal: Fluid and Electrolyte Balance Outcome: Met Intervention: Monitor and Manage Fluid and Electrolyte Balance Flowsheets (Taken 06/02/2025 0043 by Simón Cash, RN) Fluid/Electrolyte Management: electrolyte supplement initiated Goal: Acceptable Pain Control Outcome: Met Goal: Effective Urinary Elimination Outcome: Met Problem: Fall Injury Risk Goal: Absence of Fall and Fall-Related Injury Outcome: Met Intervention: Identify and Manage Contributors Flowsheets (Taken 06/04/2025 1622 by Ricki Giles, RN) Medication Review/Management: medications reviewed Self-Care Promotion: independence encouraged Intervention: Promote Injury-Free Environment Flowsheets (Taken 06/07/2025 0800) Safety Promotion/Fall Prevention: clutter-free environment maintained Problem: Wound Goal: Improved Oral Intake Outcome: Met Intervention: Promote and Optimize Oral Intake Flowsheets (Taken 06/07/2025 1143) Oral Nutrition Promotion: rest periods promoted Nutrition Interventions: meal set-up provided Problem: Self-Care Deficit Goal: Improved Ability to Complete Activities of Daily Living Outcome: Met Intervention: Promote Activity and Functional [place] Flowsheets Taken 06/07/2025 0935 by Ca Burr RN Activity Assistance Provided: assistance, stand-by Taken 06/04/2025 1622 by Ricik Giles RN Adaptive Equipment Use: use encouraged Self-Care Promotion: independence encouraged * Assessment & Plan Note - Hesham Strong MD - 06/07/2025 11:40 AM EDT Associated Problem(s): 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) -will need procedure with vascular surgery * Assessment & Plan Note - Hesham Strong MD - 06/07/2025 11:40 AM EDT Associated Problem(s): Poorly-controlled hypertension - PRN IV Labetalol meds as needed * Assessment & Plan Note - Hesham Strong MD - 06/07/2025 11:40 AM EDT Associated Problem(s): Hyperlipidemia - statin * Assessment & Plan Note - Hesham Strong MD - 06/07/2025 11:40 AM EDT Associated Problem(s): COPD (chronic obstructive pulmonary disease) ([facility]) -resume home meds as appropriate -Increased pulm toilet -Duoneb PRN * Assessment & Plan Note - Hesham Strong MD - 06/07/2025 11:40 AM EDT Associated Problem(s): H/O aortic arch replacement -05/27: Ascending aortic and arch aneurysm repair with ascending aortic replacement using a 28 Hemashield graft and aortic arch replacement using a 32 Hemashield tube graft with deep circulatory arrestusing bilateral antegrade cerebral perfusion and de-branching of the innominate artery and the leftcarotid artery with valve sparing * Assessment & Plan Note - Hesham Strong MD - 06/07/2025 11:40 AM EDT Associated Problem(s): H/O ascending aortic replacement -05/27: Ascending aortic and arch aneurysm repair with ascending aortic replacement using a 28 Hemashield graft and aortic arch replacement using a 32 Hemashield tube graft with deep circulatory arrestusing bilateral antegrade cerebral perfusion and de-branching of the innominate artery and the leftcarotid artery with valve sparing * Assessment & Plan Note - Hesham Strong MD - 06/07/2025 11:40 AM EDT Associated Problem(s): H/O transcarotid artery revascularization (TCAR) -02/2025 * Assessment & Plan Note - Hesham Strong MD - 06/07/2025 11:40 AM EDT Associated Problem(s): Hypokalemia -Monitor per protocol and replaced as indicated * Assessment & Plan Note - Hesham Strong MD - 06/07/2025 11:40 AM EDT Associated Problem(s): Leukocytosis Monitor post op likely reactive -infectious work up sent 06/06 * Assessment & Plan Note - Hesham Strong MD - 06/07/2025 11:40 AM EDT Associated Problem(s): Cerebral venous sinus thrombosis -Resume Eliquis -AC per primary * Assessment & Plan Note - Hesham Strong MD - 06/07/2025 11:40 AM EDT Associated Problem(s): S/P ascending aortic aneurysm repair -Monitor per protocol. * Assessment & Plan Note - Hesham Strong MD - 06/07/2025 11:40 AM EDT Associated Problem(s): Acute blood loss anemia -Monitor per protocol. * Assessment & Plan Note - Hesham Strong MD - 06/07/2025 11:40 AM EDT Associated Problem(s): Thrombocytosis -Monitor per protocol. * Assessment & Plan Note - Hesham Strong MD - 06/07/2025 11:40 AM EDT Associated Problem(s): Hypocalcemia -Monitor per protocol. * Assessment & Plan Note - Hesham Strong MD - 06/07/2025 11:40 AM EDT Associated Problem(s): Hypophosphatemia -Monitor per protocol. * Assessment & Plan Note - Hesham Strong MD - 06/07/2025 11:40 AM EDT Associated Problem(s): Acute postoperative pain -Monitor per protocol. * Assessment & Plan Note - Hesham Strong MD - 06/07/2025 11:40 AM EDT Associated Problem(s): Mood disorder (CMS/HCC) -Monitor per protocol. * Assessment & Plan Note - Hesham Strong MD - 06/07/2025 11:40 AM EDT Associated Problem(s): Depression -Monitor per protocol. * Assessment & Plan Note - Hesham Strong MD - 06/07/2025 11:40 AM EDT Associated Problem(s): Anxiety -Monitor per protocol. * Progress Notes - Hesham Strong MD - 06/07/2025 11:39 AM EDT Procedures 06/07/25 Joi Marcial HPI Joi Marcial is a 70 y.o. 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 If applicable, patient is s/p Procedure(s) and Anesthesia Type: * Ascending Aortic Replacement, Hemiarch, Circulatory Arrest, Aortic Arch Debranching - General. Patient is 11 Days Post-Op with Cardiothoracic Surgery. Past 24 hours: PM: NAEO, ?transfer back to [facility] in AM? K+/Phos Replacement. AM: On RA. HDS. Tolerating PO. Ambulating and having BMS. Plan to dc home. Edited by: Hesham Strong MD at 06/07/2025 1139 Lines/Drains/Tubes: Patient Lines/Drains/Airways Status Active Active LDAs None GCS: Kip Coma Scale Score: 15 Review of Systems 14 point ROS reviewed and otherwise negative or unobtainable except as noted above or in HPI. Vital signs: Vitals: 06/07/25 1000 BP: Pulse: 85 Resp: 20 Temp: SpO2: 96% Intake/Output Summary (Last 24 hours) at 06/07/2025 1139 Last data filed at 06/07/2025 0900 Gross per 24 hour Intake 200 ml Output 250 ml Net -50 ml Physical Exam: Sedation was held for the purposes of examination. Physical Exam Constitutional: General: She is not in acute distress. Appearance: She is normal weight. She is not toxic-appearing or diaphoretic. HENT: Head: Normocephalic and atraumatic. Nose: Nose normal. Eyes: General: No scleral icterus. Right eye: No discharge. Left eye: No discharge. Extraocular Movements: Extraocular movements intact. Conjunctiva/sclera: Conjunctivae normal. Cardiovascular: Rate and Rhythm: Normal rate and regular rhythm. Heart sounds: No murmur heard. No friction rub. No gallop. Pulmonary: Effort: Pulmonary effort is normal. Breath sounds: No stridor. No wheezing, rhonchi or rales. Musculoskeletal: Comments: Surgical site appears CDI. No erythema or drainage. Neurological: General: No focal deficit present. Mental Status: She is alert. Mental status is at baseline. Psychiatric: Mood and Affect: Mood normal. Behavior: Behavior normal. Thought Content: Thought content normal. Results Review I have reviewed the latest lab and imaging results. Assessment and Plan: This patient is critically ill. 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) Present on Admission: Yes -will need procedure with vascular surgery Poorly-controlled hypertension Present on Admission: Yes - PRN IV Labetalol meds as needed Hyperlipidemia Present on Admission: Yes - statin COPD (chronic obstructive pulmonary disease) (CMS/HCC) Present on Admission: Yes -resume home meds as appropriate -Increased pulm toilet -Duoneb PRN H/O aortic arch replacement Present on Admission: Not Applicable -05/27: Ascending aortic and arch aneurysm repair with ascending aortic replacement using a 28 Hemashield graft and aortic arch replacement using a 32 Hemashield tube graft with deep circulatory arrestusing bilateral antegrade cerebral perfusion and de-branching of the innominate artery and the leftcarotid artery with valve sparing H/O ascending aortic replacement Present on Admission: Not Applicable -05/27: Ascending aortic and arch aneurysm repair with ascending aortic replacement using a 28 Hemashield graft and aortic arch replacement using a 32 Hemashield tube graft with deep circulatory arrestusing bilateral antegrade cerebral perfusion and de-branching of the innominate artery and the leftcarotid artery with valve sparing H/O transcarotid artery revascularization (TCAR) Present on Admission: Not Applicable -02/2025 Hypokalemia Present on Admission: No -Monitor per protocol and replaced as indicated Leukocytosis Present on Admission: No Monitor post op likely reactive -infectious work up sent 06/06 Cerebral venous sinus thrombosis Present on Admission: Yes -Resume Eliquis -AC per primary S/P ascending aortic aneurysm repair Present on Admission: Not Applicable -Monitor per protocol. Acute blood loss anemia Present on Admission: No -Monitor per protocol. Thrombocytosis Present on Admission: No -Monitor per protocol. Hypocalcemia Present on Admission: No -Monitor per protocol. Hypophosphatemia Present on Admission: No -Monitor per protocol. Acute postoperative pain Present on Admission: No -Monitor per protocol. Mood disorder (CMS/HCC) Present on Admission: Yes -Monitor per protocol. Depression Present on Admission: Yes -Monitor per protocol. Anxiety Present on Admission: Yes -Monitor per protocol. Non-Hospital Problems Peripheral vascular disease (CMS/HCC) (Chronic) Asymptomatic stenosis of right carotid artery Hesham Strong MD Cosigned by Lina Jon MD at 06/07/2025 12:35 PM EDT Associated attestation - Lina Jon MD - 06/07/2025 12:35 PM EDT I saw and evaluated the patient. I discussed the case with the resident/fellow and agree with the findings and plan as documented. * Discharge Summary - Georgie Green APRN - 06/07/2025 10:46 AM EDT Hospitalization Admit Date/Time: 05/27/2025 5:34 AM Admitting Attending: Jose C Nicholson Discharge Date: 06/07/2025 Discharge Attending Physician: Jose C Nicholson MD PCP name and Address: Edwardo Sheehan MD [address] [place] [address] Referring provider name and address: No referring provider defined for this encounter. Chief Concern, Brief History of Present Illness, and Hospital Course Ms. Joi Marcial is a 70 year old female with PMH significant for hypertension, hyperlipidemia, COPD, cerebral venous sinus thrombosis, ascending and descending aortic aneurysms. Additionally she has 70-80% stenosis of proximal right ICA and left GLASS INSERTER high grade stenosis. She was evaluated at [facility] with plans for staged repair including elephant trunk followed by endovascular repair however she wanted to be closer to home for a potential procedure. CTA shows maximal diameter of 6.2 cm in descending thoracic aorta. Now status post ALEKSANDR stent with Dr. Franz on 03/13/25. Ms. Marcial didn't have any significant intraoperative complications. Patient was extubated without difficulty and oxygen was weaned as tolerated. Patient was able to tolerate advancement of diet. She is voiding without difficulty and having regular bowel movements. Pain is adequately controlled withoral pain medications. Surgical incision is clean, dry, and intact without obvious signs of infection. Patient was seen and evalaluted during morning rounds and deemed appropriate for discharge at this time. All discharge instructions and medications were reviewed with the patient and family. Questions answered, follow up as below. Patient discharged in stable condition with the assistance of Family. Surgeries and Procedures Procedures performed in this encounter Procedures Critical Care Critical Care Critical Care Critical Care Critical Care Critical Care Critical Care Critical Care Critical Care Ascending Aortic Replacement, Hemiarch, Circulatory Arrest, Aortic Arch Debranching (N/A) Medication List .. ALPRAZolam 0.5 MG tablet Commonly known as: Xanax Take 1 tablet by mouth 2 times a day. apixaban 5 MG tablet Commonly known as: Eliquis Take 1 tablet by mouth 2 times a day. atorvastatin 20 MG tablet Commonly known as: Lipitor Take 1 tablet by mouth daily. CENTRUM SILVER 50+WOMEN PO Take by mouth. clopidogrel 75 MG tablet Commonly known as: Plavix Take 1 tablet by mouth daily. D-5000 125 MCG (5000 UT) tablet Generic drug: cholecalciferol Take 1 tablet by mouth 1 time each day. DSS 100 MG capsule Take 100 mg by mouth 2 times a day. HYDROcodone-acetaminophen 5-325 MG tablet Commonly known as: [place] Take 1 tablet by mouth every 4 hours as needed for moderate pain. metoprolol tartrate 25 MG tablet Commonly known as: Lopressor Take 1 tablet by mouth 2 times a day. naloxone 4 mg/0.1 mL nasal spray Commonly known as: Narcan 1. Give 1 spray in nostril for no/slow breathing or cannot wake after opioid use 2. Call 911 3. Repeat in other nostril if symptoms continue PARoxetine 20 MG tablet Commonly known as: Paxil Take 1 tablet by mouth daily. senna 8.6 MG tablet Commonly known as: Senokot Take 1 tablet by mouth nightly. Where to Get Your Medications These medications were sent to [facility] - [place], [place] - 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 - Will need procedure with vascular surgery at a later date - statin, BB - Routine post cardiac surgery care: sternal precautions x 6 weeks, PT, bowel regimen to prevent constipation and aggressive pulmonary toilet. - 06/04: resumed home plavix Volume Overload Pleural effusions (resolved) - Admit wt: 71.2 kg - daily weights/I&Os - diuresis prn - CXR prn - current weight 69kg Acute Blood Loss Anemia - Intraoperatively, pt received 2000 mL of crystalloid, 870 mL of cell saver and the following blood products: 5 PRBC, 3 Platelets, 4 FFP, 2 Cryo, DDAVP, and factor 7 x 3. Pt then received one unit pRBCs on 05/28. - Monitor and transfuse for Hgb < 7 Thrombocytosis - platelets 381 - continue to monitor Leukocytosis - WBC 11.61, afebrile - Continue to monitor Hypocalcemia - monitor and replete prn Hypokalemia - monitor and replete prn Hypophosphatemia - monitor and replete prn Postoperative Atrial Fibrillation - Controlled rate, converted to NSR with BB - No AF since 05/30; no plan for AC unless it recurs - Continue metoprolol Acute postoperative Pain - MMPM Hyperlipidemia (POA) - Continue atorvastatin Hypertension (POA) - Holding home meds: amlodipine, bisoprolol, hydrochlorothiazide, and lisinopril - metoprolol 25 mg BID COPD (POA) - Nebs, pulm toiletry Mood Disorder (POA) Depression (POA) Anxiety (POA) - continue paroxetine and xanax - prn vistaril Agitation Requiring Sedation (resolved) Delirium (resolved) Left Upper Extremity Swelling (resolved) Thrombocytopenia (resolved) Hyponatremia (resolved) Hypermagnesemia (resolved) Hyperkalemia (resolved) Hypernatremia (resolved) Postoperative hyperglycemia (resolved) Plan: Discharge to home today. Cardiothoracic Surgery Post Discharge Instructions See AVS Outpatient Follow-Up Future Appointments Date Time Provider Department Center 06/25/2025 9:45 AM [facility] 08/07/2025 12:[address] [facility] 08/07/2025 1:40 PM Cedrick Franz MD [facility] Test Results Pending At Discharge None Pertinent Physical Exam At Time of Discharge GENERAL: Well nourished, well developed. No acute distress. EYES: No scleral icterus or conjunctivitis HENT: Atraumatic, normocephalic, nares patent, mucus membranes moist NECK: Supple, trachea midline RESP/CHEST: Clear to auscultation bilaterally with smmetric expansion; non labored. Sternum stable,sternotomy as noted below. CARD: RRR. S1S2. No murmur, rub, or gallop. No JVD. No lower extremity edema. Pedal pulses palpable+2. Extremities: No cyanosis or clubbing. GI: Soft, nontender, nondistended. BS present and normoactive x 4 quadrants SKIN: No rash. Midsternal incision CDI, edges well approximated. NEURO: AAOx4. Motor intact and no focal deficits PSYCH: Mood and affect congruent and appropriate to situation. Discharge Disposition/Condition Disposition: Home Condition: Stable (s/sx potential problems absent or manageable) I spent >30 minutes of patient care and instruction time in preparation for this discharge. Cosigned by Jose C Nicholson MD at 06/08/2025 9:31 AM EDT Associated attestation - Jose C Nicholson MD - 06/08/2025 9:31 AM EDT Signature only. * Progress Notes - Doyle Maciel PA - 06/07/2025 8:55 AM EDT Images from the original note were not included. CARDIOTHORACIC SURGERY PROGRESS NOTE SUBJECTIVE Acute Events/Last 24 Hrs: pain improved, no dizziness or lightheadedness, she feels improved. OBJECTIVE All laboratory data, images, tracings, and vital sign data for past 24 hours are personally reviewed unless otherwise noted. Physical Exam VITALS (last 24h) 06/07/2025 1:00 AM 06/07/2025 2:00 AM 06/07/2025 3:00 AM 06/07/2025 4:00 AM 06/07/2025 6:00 AM 06/07/2025 7:00 AM 06/07/2025 8:00 AM Vitals Systolic 98 92 93 91 127 128 111 Diastolic 43 52 46 61 62 90 87 Heart Rate 91 89 77 81 86 93 87 Temp 36.9 C Resp 19 17 19 18 12 Weight (kg) 69 kg BMI 24.56 kg/m2 BSA (m2) 1.79 m2 O2 Delivery Method: Nasal cannula GENERAL: No acute distress, resting comfortably EYES: extraoccular eye movement grossly intact, pupils equal and reactive, anicteric NECK: no JVD, no thyromegaly RESP/CHEST: Symmetric expansion; non labored. CTA bilaterally. CARD: regular rate, regular rhythm EXTREMITIES: no significant lower extremity edema GI: Soft, Nontender, nondistended. NEURO: AAOx4. No focal deficits PSYCH: Mood and affect congruent and appropriate to situation. INCISIONS: Sternum - Well approximated Intake/Output Intake/Output Summary (Last 24 hours) at 06/07/2025 0856 Last data filed at 06/06/2025 1400 Gross per 24 hour Intake -- Output 250 ml Net -250 ml Results Labs in last 18 hours CBC WBC 11.61 (H) Hb 9.7 (L) Plt 381 (H) Hct 30.4 (L) ANC ?? INR ??, PTT ??, Anti-Xa ?? BMP Na 137 Cl 108 (H) BUN 23 Glu 85 K 3.5 (L) Co2 18 (L) Cr 0.57 (L) Ca 8.5 (L) iCa ?? Mg 2.0, Phos 2.3 (L) Lactate ?? LFT AST ?? AlkPhos ?? T Prot ?? ALK ?? Bili ?? Alb ?? D.Bili ?? Imaging No echocardiogram results found for the past 14 days No valid procedures specified. No CXR imaging results found for the past day. 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) Active Problems: Cerebral venous sinus thrombosis 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) Poorly-controlled hypertension Hyperlipidemia COPD (chronic obstructive pulmonary disease) (CMS/HCC) 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 H/O transcarotid artery revascularization (TCAR) Hypokalemia Cardiac volume overload Leukocytosis Delirium due to multiple etiologies Left upper extremity swelling A-fib (CMS/HCC) Electrolyte abnormality Pleural effusion 70 yrs female who underwent ascending aortic repair with debranching of the innominate and left carotid artery with reconstruction with Dr. Nicholson. (11 Days Post-Op) Imaging reveals cerebral sinus thrombosis, she is asymptomatic. She has a history of this; could have been due to held anticoagulant in the setting of her hypercoagulable baseline state, however, anticoagulation after her operation in the short interim was contraindicated, as discussed preoperatively with the patient as well. We will have CCM call radiology to comment on if the thrombosis is acute or chronic. -Check UA given leukocytosis -continue eliquis -stop ASA -d/c labetalol -continue metoprolol -ok for diet -dc home Cardiothoracic Surgery 06/07/25 8:56 AM * Progress Notes - Car Tucker MD - 06/06/2025 3:03 PM EDT Images from the original note were not included. CARDIOTHORACIC SURGERY PROGRESS NOTE SUBJECTIVE Acute Events/Last 24 Hrs: pain improved, no dizziness or lightheadedness, she feels improved. OBJECTIVE All laboratory data, images, tracings, and vital sign data for past 24 hours are personally reviewed unless otherwise noted. Physical Exam VITALS (last 24h) 06/06/2025 8:00 AM 06/06/2025 9:00 AM 06/06/2025 10:00 AM 06/06/2025 11:00 AM 06/06/2025 12:00 PM 06/06/2025 1:00 PM 06/06/2025 2:00 PM Vitals Systolic 131 130 127 107 100 111 109 Diastolic 71 57 55 61 68 58 48 Heart Rate 103 104 93 81 88 83 86 Temp 36.7 C 36.8 C Resp 24 20 17 20 27 20 19 O2 Delivery Method: Nasal cannula GENERAL: No acute distress, resting comfortably EYES: extraoccular eye movement grossly intact, pupils equal and reactive, anicteric NECK: no JVD, no thyromegaly RESP/CHEST: Symmetric expansion; non labored. CTA bilaterally. CARD: regular rate, regular rhythm EXTREMITIES: no significant lower extremity edema GI: Soft, Nontender, nondistended. NEURO: AAOx4. No focal deficits PSYCH: Mood and affect congruent and appropriate to situation. INCISIONS: Sternum - Well approximated Intake/Output Intake/Output Summary (Last 24 hours) at 06/06/2025 1505 Last data filed at 06/06/2025 1400 Gross per 24 hour Intake -- Output 250 ml Net -250 ml Results Labs in last 18 hours CBC WBC 18.13 (H) Hb 10.0 (L) Plt 441 (H) Hct 31.3 (L) ANC 15.33 (H) INR ??, PTT ??, Anti-Xa ?? BMP Na 138 Cl 106 BUN 33 (H) Glu 114 (H) K 4.7 Co2 18 (L) Cr 0.75 Ca 8.8 (L) iCa 4.7 Mg 2.7 (H), Phos 3.7 Lactate ?? LFT AST ?? AlkPhos ?? T Prot ?? ALK ?? Bili ?? Alb ?? D.Bili ?? Imaging No echocardiogram results found for the past 14 days No valid procedures specified. CT Angio Chest Result Date: 06/06/2025 * Markedly aneurysmal dilation of the distal aortic arch and descending thoracic aorta. Aneurysmal dilation of the abdominal aorta, incompletely visualized. Postsurgical changes related to repair of the aortic root and descending thoracic aorta. * Small amount of nodular consolidation in the right lower lobe which could reflect aspiration or pneumonia. Small right pleural effusion. * The left brachiocephalic vein is not well characterized. There is enhancement of the distal left internal jugular vein; however, there is nonenhancement of the more proximal segments. Please refer to separately interpreted neck CTA report for detailed findings related to the neck. * Small fluid collection in the anterior soft tissues of the neck extending to the sternotomy site which may reflect postsurgical changes/seroma. A postsurgical abscess could be considered in the appropriate clinical setting. CRITICAL RESULT: No. COMMUNICATION: Per this written report. Drafted by Jemal Lei MD on 06/06/2025 3:15 AM Final report signed by Jemal Lei MD on 06/06/2025 3:[address] Angio Head Result Date: 06/06/2025 * Progressive severe focal narrowing of the V3 segment of the right vertebral artery which may reflect a small chronic dissection or prominent atherosclerotic plaque. * Otherwise, no evidence of hemodynamically significant stenosis or abnormality involving the major intra- and extra-cranial arteries. * Occlusive thrombus in the left transverse sinus through internal jugular vein. Nonopacificationof the left brachiocephalic vein or draining veins. * Please refer to separately interpreted chest CT report for detailed findings related to the thorax. CRITICAL RESULT: Yes. COMMUNICATION: Per thiswritten report. An urgent [employer] secured message was sent to the responding clinician, JAXON DE LA ROSA, by Jemal Lei MD on 06/06/2025 3:02 AM. Receipt of understanding via secured messaging was provided by the responding clinician, JAXON DE LA ROSA, by Jemal Lei MD on 06/06/2025 3:04 AM. Donovan Lei MD on 06/06/2025 2:49 AM Final report signed by Jemal Lei MD on 06/06/2025 3:[address] Angio Neck Result Date: 06/06/2025 * Progressive severe focal narrowing of the V3 segment of the right vertebral artery which may reflect a small chronic dissection or prominent atherosclerotic plaque. * Otherwise, no evidence of hemodynamically significant stenosis or abnormality involving the major intra- and extra-cranial arteries. * Occlusive thrombus in the left transverse sinus through internal jugular vein. Nonopacificationof the left brachiocephalic vein or draining veins. * Please refer to separately interpreted chest CT report for detailed findings related to the thorax. CRITICAL RESULT: Yes. COMMUNICATION: Per thiswritten report. An urgent [employer] secured message was sent to the responding clinician, JAXON DE LA ROSA, by Jemal Lei MD on 06/06/2025 3:02 AM. Receipt of understanding via secured messaging was provided by the responding clinician, JAXON DE LA ROSA, by Jemal Lei MD on 06/06/2025 3:04 AM. 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) Active Problems: Cerebral venous sinus thrombosis 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) Poorly-controlled hypertension Hyperlipidemia COPD (chronic obstructive pulmonary disease) (CMS/HCC) 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 H/O transcarotid artery revascularization (TCAR) Hypokalemia Cardiac volume overload Leukocytosis Delirium due to multiple etiologies Left upper extremity swelling A-fib (CMS/HCC) Electrolyte abnormality Pleural effusion 70 yrs female who underwent ascending aortic repair with debranching of the innominate and left carotid artery with reconstruction with Dr. Nicholson. (10 Days Post-Op) Imaging reveals cerebral sinus thrombosis, she is asymptomatic. She has a history of this; could have been due to held anticoagulant in the setting of her hypercoagulable baseline state, however, anticoagulation after her operation in the short interim was contraindicated, as discussed preoperatively with the patient as well. We will have CCM call radiology to comment on if the thrombosis is acute or chronic. -Check UA given leukocytosis -continue eliquis -stop ASA -d/c labetalol -continue metoprolol -ok for diet Cardiothoracic Surgery 06/06/25 3:05 PM Cosigned by Jose C Nicholson MD at 06/06/2025 3:38 PM EDT Associated attestation - Jose C Nicholson MD - 06/06/2025 3:38 PM EDT I saw and evaluated the patient with the resident/fellow. I discussed the case with the resident/fellow and agree with the findings and plan as documented. * Care Plan - Precious Cruz RN - 06/06/2025 2:25 PM EDT Problem: Adult Inpatient Plan of Care Goal: Plan of Care Review Outcome: Ongoing, Progressing Flowsheets (Taken 06/04/2025 1622 by Ricki Giles RN) Progress: improving Plan of Care Reviewed With: patient Goal: Patient-Specific Goal (Individualized) Outcome: Ongoing, Progressing Goal: Absence of Hospital-Acquired Illness or Injury Outcome: Ongoing, Progressing Goal: Optimal Comfort and Wellbeing Outcome: Ongoing, Progressing Problem: Infection Goal: Absence of Infection Signs and Symptoms Outcome: Ongoing, Progressing Problem: Skin Injury Risk Increased Goal: Skin Health and Integrity Outcome: Ongoing, Progressing Problem: Cardiovascular Surgery Goal: Effective Bowel Elimination Outcome: Ongoing, Progressing Goal: Effective Cardiac Function Outcome: Ongoing, Progressing Goal: Optimal Cerebral Tissue Perfusion Outcome: Ongoing, Progressing Goal: Fluid and Electrolyte Balance Outcome: Ongoing, Progressing Goal: Acceptable Pain Control Outcome: Ongoing, Progressing Goal: Effective Urinary Elimination Outcome: Ongoing, Progressing Problem: Fall Injury Risk Goal: Absence of Fall and Fall-Related Injury Outcome: Ongoing, Progressing Problem: Self-Care Deficit Goal: Improved Ability to Complete Activities of Daily Living Outcome: Ongoing, Progressing Problem: Wound Goal: Improved Oral Intake Outcome: Ongoing, Progressing * Assessment & Plan Note - Roberto Rodriguez MD - 06/06/2025 2:15 PM EDTAssociated Problem(s): 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 Nicholson * Assessment & Plan Note - Roberto Rodriguez MD - 06/06/2025 2:15 PM EDTAssociated Problem(s): 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) -will need procedure with vascular surgery * Assessment & Plan Note - Roberto Rodriguez MD - 06/06/2025 2:15 PM EDTAssociated Problem(s): Poorly-controlled hypertension - PRN IV Labetalol meds as needed * Assessment & Plan Note - Roberto Rodriguez MD - 06/06/2025 2:15 PM EDTAssociated Problem(s): Hyperlipidemia - statin * Assessment & Plan Note - Roberto Rodriguez MD - 06/06/2025 2:15 PM EDTAssociated Problem(s): COPD (chronic obstructive pulmonary disease) ([facility]) -resume home meds as appropriate -Increased pulm toilet -Duoneb PRN * Assessment & Plan Note - Roberto Rodriguez MD - 06/06/2025 2:15 PM EDTAssociated Problem(s): H/O aortic arch replacement -05/27: Ascending aortic and arch aneurysm repair with ascending aortic replacement using a 28 Hemashield graft and aortic arch replacement using a 32 Hemashield tube graft with deep circulatory arrestusing bilateral antegrade cerebral perfusion and de-branching of the innominate artery and the leftcarotid artery with valve sparing * Assessment & Plan Note - Roberto Rodriguez MD - 06/06/2025 2:15 PM EDTAssociated Problem(s): H/O ascending aortic replacement -05/27: Ascending aortic and arch aneurysm repair with ascending aortic replacement using a 28 Hemashield graft and aortic arch replacement using a 32 Hemashield tube graft with deep circulatory arrestusing bilateral antegrade cerebral perfusion and de-branching of the innominate artery and the leftcarotid artery with valve sparing * Assessment & Plan Note - Roberto Rodriguez MD - 06/06/2025 2:15 PM EDTAssociated Problem(s): H/O transcarotid artery revascularization (TCAR) -02/2025 * Assessment & Plan Note - Roberto Rodriguez MD - 06/06/2025 2:15 PM EDTAssociated Problem(s): Hypokalemia -Monitor per protocol and replaced as indicated * Assessment & Plan Note - Roberto Rodriguez MD - 06/06/2025 2:15 PM EDTAssociated Problem(s): Cardiac volume overload (Resolved 06/07/2025) Diurese as indicated * Assessment & Plan Note - Roberto Rodriguez MD - 06/06/2025 2:15 PM EDTAssociated Problem(s): Leukocytosis Monitor post op likely reactive -infectious work up sent 06/06 * Assessment & Plan Note - Roberto Rodriguez MD - 06/06/2025 2:15 PM EDTAssociated Problem(s): Delirium due to multiple etiologies (Resolved 06/07/2025) -Seroquel wean to off, changed to nightly and stop in 3 days Now improved, pt alert and oriented * Assessment & Plan Note - Roberto Rodriguez MD - 06/06/2025 2:15 PM EDTAssociated Problem(s): A-fib (CMS/HCC) (Resolved 06/07/2025) -Monitor per protocol. * Assessment & Plan Note - Roberto Rodriguez MD - 06/06/2025 2:15 PM EDTAssociated Problem(s): Electrolyte abnormality (Deleted) -ICU electrolyte replacement protocol * Assessment & Plan Note - Roberto Rodriguez MD - 06/06/2025 2:15 PM EDTAssociated Problem(s): Cerebral venous sinus thrombosis -Resume Eliquis -AC per primary * Assessment & Plan Note - Roberto Rodriguez MD - 06/06/2025 2:15 PM EDTAssociated Problem(s): Pleural effusion (Resolved 06/07/2025) -Daily CXR -diuresis/drain as necessary * Progress Notes - Roberto Rodriguez MD - 06/06/2025 2:12 PM EDT Procedures 06/06/25 Joi Marcial HPI Joi Marcial is a 70 y.o. 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 If applicable, patient is s/p Procedure(s) and Anesthesia Type: * Ascending Aortic Replacement, Hemiarch, Circulatory Arrest, Aortic Arch Debranching - General. Patient is 10 Days Post-Op with Cardiothoracic Surgery. Past 24 hours: PM:Transferred to ICU from floor for new back pain, nausea/diaphoresis/ felt like I needed to havea bowel movement after walking on unit. Hypotensive in Left arm, Hypertensive in Right, Stat CTA Head/Neck/Chest (Aneurysm, small R Pleural effusion, anterior neck soft tissue seroma vs. Abscess, Occlusive thrombus L transverse sinus > jugular vein AC plan ? Resume Eliquis. PRN Labetalol for HTN/Impulse control. K+/Mg replacement. Infectious Work up sent. AM:Eliquis started, dc lovenox. U/a ordered. CBC w diff. Diet advanced. CVST appears to be chronic given her prior imaging. Edited by: Roberto Rodriguez MD at 06/06/2025 1415 Lines/Drains/Tubes: Patient Lines/Drains/Airways Status Active Active LDAs Name Placement date Placement time Site Days Peripheral IV 06/05/25 Right Antecubital 06/05/25 2100 Antecubital less than 1 Peripheral IV 06/06/25 Anterior;Right Forearm 06/06/25 1200 Forearm less than 1 GCS: Kip Coma Scale Score: 15 Review of Systems 14 point ROS reviewed and otherwise negative or unobtainable except as noted above or in HPI. Vital signs: Vitals: 06/06/25 1300 BP: 111/58 Pulse: 83 Resp: 20 Temp: SpO2: 99% No intake or output data in the 24 hours ending 06/06/25 1415 Physical Exam: Sedation was held for the purposes of examination. Physical Exam Constitutional: General: She is not in acute distress. Appearance: She is normal weight. She is not toxic-appearing or diaphoretic. HENT: Head: Normocephalic and atraumatic. Nose: Nose normal. Eyes: General: No scleral icterus. Right eye: No discharge. Left eye: No discharge. Extraocular Movements: Extraocular movements intact. Conjunctiva/sclera: Conjunctivae normal. Cardiovascular: Rate and Rhythm: Normal rate and regular rhythm. Heart sounds: No murmur heard. No friction rub. No gallop. Pulmonary: Effort: Pulmonary effort is normal. Breath sounds: No stridor. No wheezing, rhonchi or rales. Musculoskeletal: Comments: Surgical site appears CDI. No erythema or drainage. Neurological: General: No focal deficit present. Mental Status: She is alert. Mental status is at baseline. Psychiatric: Mood and Affect: Mood normal. Behavior: Behavior normal. Thought Content: Thought content normal. Results Review I have reviewed the latest lab and imaging results. Assessment and Plan: This patient is critically ill. 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) Present on Admission: Yes -will need procedure with vascular surgery Poorly-controlled hypertension Present on Admission: Yes - PRN IV Labetalol meds as needed Hyperlipidemia Present on Admission: Yes - statin COPD (chronic obstructive pulmonary disease) (CMS/HCC) Present on Admission: Yes -resume home meds as appropriate -Increased pulm toilet -Duoneb PRN H/O aortic arch replacement Present on Admission: Not Applicable -05/27: Ascending aortic and arch aneurysm repair with ascending aortic replacement using a 28 Hemashield graft and aortic arch replacement using a 32 Hemashield tube graft with deep circulatory arrestusing bilateral antegrade cerebral perfusion and de-branching of the innominate artery and the leftcarotid artery with valve sparing H/O ascending aortic replacement Present on Admission: Not Applicable -05/27: Ascending aortic and arch aneurysm repair with ascending aortic replacement using a 28 Hemashield graft and aortic arch replacement using a 32 Hemashield tube graft with deep circulatory arrestusing bilateral antegrade cerebral perfusion and de-branching of the innominate artery and the leftcarotid artery with valve sparing H/O transcarotid artery revascularization (TCAR) Present on Admission: Not Applicable -02/2025 Hypokalemia Present on Admission: No -Monitor per protocol and replaced as indicated Cardiac volume overload Present on Admission: No Diurese as indicated Leukocytosis Present on Admission: No Monitor post op likely reactive -infectious work up sent 06/06 Delirium due to multiple etiologies Present on Admission: No -Seroquel wean to off, changed to nightly and stop in 3 days Now improved, pt alert and oriented A-fib (CMS/HCC) Present on Admission: No -Monitor per protocol. Electrolyte abnormality Present on Admission: Unknown -ICU electrolyte replacement protocol Cerebral venous sinus thrombosis Present on Admission: Yes -Resume Eliquis -AC per primary Pleural effusion Present on Admission: Unknown -Daily CXR -diuresis/drain as necessary Non-Hospital Problems Peripheral vascular disease (CMS/HCC) (Chronic) Asymptomatic stenosis of right carotid artery Roberto Rodriguez MD Cosigned by Lina Jon MD at 06/06/2025 2:22 PM EDT Associated attestation - Lina Jon MD - 06/06/2025 2:22 PM EDT I saw and evaluated the patient. I discussed the case with the resident/fellow and agree with the findings and plan as documented. * Assessment & Plan Note - Jaxon De La RosaTARIK DNP - 06/06/2025 5:14 AM EDT Associated Problem(s): Cerebral venous sinus thrombosis -Resume Eliquis -AC per primary * Assessment & Plan Note - Jaxon De La Rosa APRN, DNP - 06/06/2025 5:14 AM EDT Associated Problem(s): Leukocytosis Monitor post op likely reactive -infectious work up sent 06/06 * Assessment & Plan Note - Jaxon De La Rosa APRN, DNP - 06/06/2025 5:14 AM EDT Associated Problem(s): Pleural effusion (Resolved 06/07/2025) -Daily CXR -diuresis/drain as necessary * Assessment & Plan Note - Jaxon De La Rosa APRN, DNP - 06/05/2025 11:14 PM EDT Associated Problem(s): 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) -will need procedure with vascular surgery * Assessment & Plan Note - Jaxon De La Rosa APRN, DNP - 06/05/2025 11:14 PM EDT Associated Problem(s): Poorly-controlled hypertension - PRN IV Labetalol meds as needed * Assessment & Plan Note - Jaxon De La Rosa APRN, DNP - 06/05/2025 11:14 PM EDT Associated Problem(s): Hyperlipidemia - statin * Assessment & Plan Note - Jaxon De La Rosa APRN, DNP - 06/05/2025 11:14 PM EDT Associated Problem(s): COPD (chronic obstructive pulmonary disease) ([facility]) -resume home meds as appropriate -Increased pulm toilet -Duoneb PRN * Assessment & Plan Note - Jaxon De La Rosa APRN, DNP - 06/05/2025 11:14 PM EDT Associated Problem(s): H/O aortic arch replacement -05/27: Ascending aortic and arch aneurysm repair with ascending aortic replacement using a 28 Hemashield graft and aortic arch replacement using a 32 Hemashield tube graft with deep circulatory arrestusing bilateral antegrade cerebral perfusion and de-branching of the innominate artery and the leftcarotid artery with valve sparing * Assessment & Plan Note - Jaxon De La Rosa APRN, DNP - 06/05/2025 11:14 PM EDT Associated Problem(s): H/O ascending aortic replacement -05/27: Ascending aortic and arch aneurysm repair with ascending aortic replacement using a 28 Hemashield graft and aortic arch replacement using a 32 Hemashield tube graft with deep circulatory arrestusing bilateral antegrade cerebral perfusion and de-branching of the innominate artery and the leftcarotid artery with valve sparing * Assessment & Plan Note - Jaxon De La Rosa APRN, DNP - 06/05/2025 11:14 PM EDT Associated Problem(s): H/O transcarotid artery revascularization (TCAR) -02/2025 * Assessment & Plan Note - Jaxon De La Rosa APRN, DNP - 06/05/2025 11:14 PM EDT Associated Problem(s): Hypokalemia -Monitor per protocol and replaced as indicated * Assessment & Plan Note - Jaxon De La Rosa APRN, DNP - 06/05/2025 11:14 PM EDT Associated Problem(s): Cardiac volume overload (Resolved 06/07/2025) Diurese as indicated * Assessment & Plan Note - Jaxon De La Rosa APRN, DNP - 06/05/2025 11:14 PM EDT Associated Problem(s): Delirium due to multiple etiologies (Resolved 06/07/2025) -Seroquel wean to off, changed to nightly and stop in 3 days Now improved, pt alert and oriented * Assessment & Plan Note - Jaxon De La Rosa APRN, DNP - 06/05/2025 11:14 PM EDT Associated Problem(s): A-fib (CMS/HCC) (Resolved 06/07/2025) -Monitor per protocol. * Assessment & Plan Note - Jaxon De La Rosa APRN, DNP - 06/05/2025 11:14 PM EDT Associated Problem(s): Electrolyte abnormality (Deleted) -ICU electrolyte replacement protocol * Progress Notes - Jaxon De La Rosa APRN, DNP - 06/05/2025 11:06 PM EDT Associated Order(s): Critical Care Post-Procedure Diagnose(s): Pleural effusion; BMI 25.0-25.9,adult; Cerebral venous sinus thrombosis; H/O aortic arch replacement; H/O ascending aortic replacement; Asymptomatic stenosis of right carotid artery; Leukocytosis, unspecified type; Atrial fibrillation, unspecified type (CMS/HCC); Chronic obstructive pulmonary disease, unspecified COPD type (CMS/HCC); Cardiac volume overload; 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); 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) Critical Care Performed by: Jaxon De La Rosa APRN, DNP Authorized by: Jaxon De La Rosa APRN, DNP Critical care provider statement: Critical care time (minutes): 75 Critical care was time spent personally by me on the following activities: Discussions with consultants, discussions with primary provider, evaluation of patient's response to treatment, examination of patient, obtaining history from patient or surrogate, ordering and performing treatments and interventions, ordering and review of laboratory studies, ordering and review of radiographic studies, review of old charts and development of treatment plan with patient or surrogate I assumed subsequent critical care for this patient from a provider in my division, on the same day: no Comments: The patient is critically ill with: Post op aneurysm repair, Hermiarch, leukocytosis, electrolyte abnormality, thrombus, infectious work up . They require complex decision making. The patient was seen on rounds with critical care physician, Dr. Rios and they are in agreement with the plan of care. Pharmacy, respiratory and nursing services were present on rounds. 06/06/25 Joi Marcial HPI Joi Marcial is a 70 y.o. 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 If applicable, patient is s/p Procedure(s) and Anesthesia Type: * Ascending Aortic Replacement, Hemiarch, Circulatory Arrest, Aortic Arch Debranching - General. Patient is 10 Days Post-Op with Cardiothoracic Surgery. Past 24 hours: PM:Transferred to ICU from floor for new back pain, nausea/diaphoresis/ felt like I needed to havea bowel movement after walking on unit. Hypotensive in Left arm, Hypertensive in Right, Stat CTA Head/Neck/Chest (Aneurysm, small R Pleural effusion, anterior neck soft tissue seroma vs. Abscess, Occlusive thrombus L transverse sinus > jugular vein AC plan ? Resume Eliquis. PRN Labetalol for HTN/Impulse control. K+/Mg replacement. Infectious Work up sent. AM: Edited by: Jaxon De La Rosa, [employer] PP CONSULTANT, DNP at 06/06/2025 0506 Lines/Drains/Tubes: Patient Lines/Drains/Airways Status Active Active LDAs Name Placement date Placement time Site Days Peripheral IV 06/03/25 Left Antecubital 06/03/25 1700 Antecubital 2 Peripheral IV 06/05/25 Right Antecubital 06/05/25 2100 Antecubital less than 1 GCS: Kip Coma Scale Score: 15 Review of Systems 14 point ROS reviewed and otherwise negative or unobtainable except as noted above or in HPI. Vital signs: Vitals: 06/06/25 0400 BP: 88/61 Pulse: 95 Resp: 25 Temp: 36.6 ??C (97.9 ??F) SpO2: 93% Intake/Output Summary (Last 24 hours) at 06/06/2025 0507 Last data filed at 06/05/2025 1400 Gross per 24 hour Intake 720 ml Output 70 ml Net 650 ml Physical Exam: Sedation was held for the purposes of examination. Physical Exam Results Review I have reviewed the latest lab and imaging results. Assessment and Plan: This patient is critically ill. 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 Nicholson Aneurysm of descending thoracic aorta without rupture ([facility]/HCC) Present on Admission: Yes -will need procedure with vascular surgery Poorly-controlled hypertension Present on Admission: Yes - PRN IV Labetalol meds as needed Hyperlipidemia Present on Admission: Yes - statin COPD (chronic obstructive pulmonary disease) ([facility]) Present on Admission: Yes -resume home meds as appropriate -Increased pulm toilet -Duoneb PRN H/O aortic arch replacement Present on Admission: Not Applicable -05/27: Ascending aortic and arch aneurysm repair with ascending aortic replacement using a 28 Hemashield graft and aortic arch replacement using a 32 Hemashield tube graft with deep circulatory arrestusing bilateral antegrade cerebral perfusion and de-branching of the innominate artery and the leftcarotid artery with valve sparing H/O ascending aortic replacement Present on Admission: Not Applicable -05/27: Ascending aortic and arch aneurysm repair with ascending aortic replacement using a 28 Hemashield graft and aortic arch replacement using a 32 Hemashield tube graft with deep circulatory arrestusing bilateral antegrade cerebral perfusion and de-branching of the innominate artery and the leftcarotid artery with valve sparing H/O transcarotid artery revascularization (TCAR) Present on Admission: Not Applicable -02/2025 Hypokalemia Present on Admission: No -Monitor per protocol and replaced as indicated Cardiac volume overload Present on Admission: No Diurese as indicated Leukocytosis Present on Admission: No Monitor post op likely reactive -infectious work up sent 06/06 Delirium due to multiple etiologies Present on Admission: No -Seroquel wean to off, changed to nightly and stop in 3 days Now improved, pt alert and oriented A-fib ([facility]) Present on Admission: No -Monitor per protocol. Electrolyte abnormality Present on Admission: Unknown -ICU electrolyte replacement protocol Cerebral venous sinus thrombosis Present on Admission: Yes -Resume Eliquis -AC per primary Pleural effusion Present on Admission: Unknown -Daily CXR -diuresis/drain as necessary Non-Hospital Problems Peripheral vascular disease ([facility]) (Chronic) Asymptomatic stenosis of right carotid artery Jaxon De La Rosa APRN, ANAYA * Progress Notes - Marisela Haq RN - 06/05/2025 11:28 AM EDT Case Management Adult Progress Note Joi Marcial 70 y.o. 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 Patient is not medically ready for discharge at this time PT and OT to meet with patient and plan on possible discharge tomorrow. ABHILASH DANIEL will continue to follow. Marisela Haq RN * Progress Notes - Lon Lainez - 06/05/2025 10:26 AM EDT Physical Therapy Treatment Patient Name: Joi Marcial Today's Date: 06/05/2025 PT Discharge Recommendations: Home with assistance Equipment Recommended: Patient owns appropriate equipment Subjective Patient agreeable to session this date, states that she has felt a little more warm/dizzy over the last day or so. Participants in Care Family/Caregiver Present: No Cushion Spring Assembler: Not Applicable Presentation Oxygen Therapy: None (Room air) Lines and Tubes: Telemetry Peripheral IV 06/03/25 Left Antecubital (Active) Pre-Session: Lines intact, Sitting in chair Pre-Session Comments: RN agreeable to session. Post-Session: Sitting in chair, Lines intact, RN notified, Call light in reach Post-Session Comments: Patient positioned for comfort following session with all needs met/within reach. RN present in room at close of session. Precautions Medical Precautions: Sternal Objective Pain Patient reported 5/10 headache this date. RN notified, had already requested medication for patientfrom MD. Patient positioned for comfort following session. Delirium Screening RASS: Alert and calm Confusion Assessment Method-ICU (CAM-ICU/PCAM-ICU) Feature 3: Altered Level of Consciousness: Negative Therapeutic Activity (42 minutes) Patient participated in the following PT interventions targeting functional strength and endurance in order to promote increased independence with functional mobility. Additional time required for line management, room set-up for safe mobility and positioning at end of session to achieve optimal comfort. Patient's vital signs monitored for signs of intolerance to activity throughout session. Significant amount of time spent monitoring vitals with positional changes with RN additionally present due to patient subjective report of dizziness and feeling flushed. Please see measures below. Bed Mobility Bed Mobility Interventions: Bed mobility tasks not completed this date as patient was received and left OOBTC. Transfers Transfer Exam: Sit to stand Level of [place]: Contact guard (With increased time.) Physical/Nonphysical Assist: Verbal Cues, Maximal cues, Set-up required Assistive Device: Rollator Transfer Exam: Stand to Sit Level of [place]: Contact guard Physical/Nonphysical Assist: Verbal Cues, Minimal cues, Set-up required Assistive Device: Rollator PT provided cues for hand placement with transitions to/from standing with use of assistive device for safety and efficiency with transfers as well as to ensure maintenance of sternal precautions. Patient required increased time and use of momentum in order to facilitate transition to standing. Ambulation Device: Rollator Apparatus: None Assistance: Contact guard assist, Minimal verbal cues Distance : 15 feet + 10 feet Ambulation Comments: Patient demonstrated decreased neil this date and was limited in progression of mobility further secondary to increased fatigue, subjective report of dizziness, and feeling flush. BP assessed at several points during mobility, please see below for additional data. Patient reporting subjective dizziness with mobility. Patient's BP was monitored for orthostatic hypotension. The following BP readings were obtained throughout treatment: Patient Position BP Reading MAP Last reading prior to session 105/80 89 Standing in bathroom 116/63 75 Sitting in chair 106/48 63 Standing 90/51 61 Sitting in chair 71/50 59 Sitting in chair with LEs elevated 92/68 76 Balance Postural Appearance Posture: Stooped posture, Rounded shoulders Static Sitting Balance Static Sitting-Balance Support: Feet supported, No upper extremity support Static Sitting-Level of Assistance: Supervision Dynamic Sitting Balance Dynamic Sitting-Balance Support: Feet supported, No upper extremity support Dynamic Sitting-Balance: Lateral weight shifts, Anterior/Posterior weight shifts, Reaching for objects, Reaching across midline Level of Assistance: Standby assisst Static Standing Balance Static Standing-Balance Support: Right upper extremity support, Left upper extremity support (Rollator) Static Standing-Level of Assistance: Standby assist Dynamic Standing Balance Dynamic Standing-Balance Support: Right upper extremity support, Left upper extremity support (Rollator) Dynamic Standing Level of Assistance: Standby assist Assessment While patient is continuing to require less assistance with transfers, she was unable to progress ambulation distance this date secondary to BP changes as detailed above. Patient with subjective report of dizziness and feeling flushed and BP was monitored with several different positions. RN notified and present in room at close of session to continue administering care. Patient would continue tobenefit from skilled physical therapy services while admitted inpatient to optimize mobility. Anticipate patient will continue to make good progress toward mobility goals during remainder of inpatient admission. Anticipate that patient will be able to return home with assist once medically appropriate. PT Recommendations Discharge Destination: Home with assistance Discharge Equipment: Patient owns appropriate equipment Plan Continue with PT plan of care. Will plan to practice stairs at next session. PT Goals PT GOAL DETAILS Goal Established Date Time Frame Goal Status PT Goal 1: Pt will perform supine <> sit SBA x1 and maintain precautions 06/01/25 2 weeks PT Goal 2: Pt will perform sit to stand and bed to chair transfers SBA x1 with LRAD 06/01/25 2 weeks PT Goal 3: Pt will ambulate 600' SBA x1 with LRAD, no losses of balance, or rest breaks 06/01/25 2 weeks PT Goal 4: Pt will navigate 5 stairs with SBA x1 and no losses of balance 06/01/25 2 weeks Written by Lon Lainez on 06/05/25 at 11:34 AM. * Progress Notes - Ronit Gonzalez - 06/05/2025 10:23 AM EDT OCCUPATIONAL THERAPY TREATMENT PATIENT DATA Patient Name Joi Marcial Session Date 06/05/2025 OT Discharge Recommendations Home with assistance Equipment Recommendations Patient owns appropriate equipment Discharge Transportation Recommendations Car MOBILITY GUIDELINES Mobility Protocol: Bed Rest With Exceptions Exceptions: Bathroom Privileges (With Assistance) Up in Chair Ambulate With Assistance How Often to Sit up in Chair: Three Times Daily How Often to Ambulate: Three Times Daily Extremity Precautions: No Extremity Precautions Other mobility precautions: Other precautions Other mobility precautions: Sternal precautions PRECAUTIONS Medical Precautions Yes Medical Precautions: Sternal HOME LIVING/SET-UP Lives With Alone Home Type House Home Equipment Rolling walker, Rollator, Cane Home Layout Stairs to enter with rails, One level 5 Bathroom Layout (Walk-in bath tub) Additional Comments Pt reports owning equipment due to hip replacement in 2022. Pt's daughter can assist as needed upon discharge. PRIOR LEVEL OF FUNCTION Receives help from No assist required prior to admission Level of Mobility Ambulatory- community Mobility [place] Independent gait without device History of Falls No ADL Performance Independent PRESENTATION Oxygen None (Room air) Lines and Tubes Peripheral IV 06/03/25 Left Antecubital (Active) Pre-Session Lines intact, Sitting in chair RN agreeable to session. Post-Session Sitting in chair, Lines intact, RN notified, Call light in reach Patient positioned for comfort following session with all needs met/within reach. RN present in room at close of session. Bracing (if applicable) SUBJECTIVE PARTICIPANTS IN CARE Patient/Caregiver Comments Pt agreeable to therapy. Visitors Present No Cushion Spring Assembler (if applicable) OBJECTIVE PAIN Pain Score (0-10): 5 Location: headache Intervention: ambulation/increased activity, position adjusted, and pillow support provided Response: comfortable at end of session, RN notified, and RN aware excedrin ordered by doctor. DELIRIUM SCREENING RASS: Alert and calm Confusion Assessment Method-ICU (CAM-ICU/PCAM-ICU) Feature 3: Altered Level of Consciousness: Negative COGNITION SCREENING Overall Cognitive Status Within Functional Limits Arousal/Alertness Appropriate responses to stimuli Mood/Behavior Alert Orientation Oriented X4 Command Following Single Step Commands: Consistently Multi-Step Commands: Consistently Method of Communication Verbal Additional Observations INTERVENTIONS SELF-CARE Treatment Minutes (if applicable) 41 Interventions OT provided adl retraining with OT providing information for sternal precautions withpt demonstrating an understanding. Pt has arthritis and requires use of hands by side to push from chair while using legs to push up to stand. She demonstrated ability to veronika socks with sba and ubd with min assist for hospital gown. Pt able to perform sit to stand with cga and cues and ambulated to bathroom with cga using rollator walker. Pt toileted with sba and sba for grooming while standing at sink side. Pt reported feeling dizzy after toileting and bp taken while standing 116/63 (75) withpt reporting symptoms worsening. She went back to chair and sat down with bp dropping to 100/48 (63) with RN notified. Her bp taken several over times with lowest at 71/50 (59) while sitting. Pt did not get to practice stairs as anticipated due to symptoms and drops in BP. Level of [place] Adaptive Equipment Utilized Comments Feeding Grooming SBA Standing sinkside Bathing Upper Body Dressing Minimum assistance Chair level Lower Body Dressing Pants Level of Assistance: SBA Toileting SBA Toilet IADLs Health Management Community Re-Entry BALANCE Postural Appearance Posture: Stooped posture, Rounded shoulders INTERVENTIONS Level of [place] Balance Support Comments Static Sit Supervision Feet supported, No upper extremity support Dynamic Sit Standby assisst Feet supported, No upper extremity support Dynamic Sitting-Balance: Lateral weight shifts, Anterior/Posterior weight shifts, Reaching for objects, Reaching across midline Static Stand Standby assist Right upper extremity support, Left upper extremity support (Rollator) Dynamic Stand Standby assist Right upper extremity support, Left upper extremity support (Rollator) FUNCTIONAL MOBILITY Comments Functional mobility and transfers performed to facilitate participation in ADL routines within home environment and community as part of patient's prior baseline level of participation. Therapist provided verbal/tactile/environmental cues for postural control, hand placement, device management, pacing and weight shifting to promote safety. Level of [place] Physical/Non-physical Assist Adaptive Equipment Utilized Rolling/ Turning Scooting/ Bridging Supine to Sit Sit to Supine Sit to Stand Contact guard (With increased time.) Verbal Cues, Maximal cues Rollator Stand to sit Contact guard Verbal Cues, Minimal cues Rollator Bed to Chair Toilet Transfer Contact guard Ambulation Verbal Cues, Minimal cues Rollator Shower Transfer Additional Transfers ASSESSMENT OT provided adl retraining with focus on improving self care performance in order to return to prior level of function. Pt response to treatment with increased independence in lower body dressing andtoileting tasks with sba to setup assist. Pt limited in session today due to drops in bp and symptoms of flushing/dizziness/nausea. RN aware. Continue to recommend home with assist at discharge. OT RECOMMENDATIONS Discharge Destination Home with assistance Discharge Equipment Patient owns appropriate equipment PLAN OT to continue to address adl performance, functional mobility, activity tolerance, balance, and safety. OT GOALS OT GOAL DETAILS Goal Established Date Time Frame Goal Status OT Goal 1: Pt will complete total body dressing skills with modified independence and appropriate adaptive device. 06/01/25 2 weeks OT Goal 2: Pt will complete toileting skills with modified independence and appropriate adaptive device. 06/01/25 2 weeks OT Goal 3: Pt will complete functional transfers with modified independence and appropriate adaptive device to increase independence with toilet transfers. 06/01/25 2 weeks OT Goal 4: Pt will independently adhere to sternal precautions during all ADL tasks and functional transfers. 06/01/25 2 weeks Written by Ronit Gonzalez on 06/05/25 at 12:27 PM. * Progress Notes - Doyle Fabian PA - 06/05/2025 7:50 AM EDT CVT Progress Note Chief Complaint: ascending aortic replacement 24 Hour Events/HPI: No acute events or issues overnight. Patient remained hemodynamically stable, afebrile, and rested comfortably overnight. Denies Chest pain or dyspnea Eating and ambulating +BM C/o mild headache over left eye Objective: All laboratory data, images, tracings, and vital sign data for past 24 hours are personally reviewed unless otherwise noted. @PATIENTWT@ , Weight: 71.2 kg (157 lb) , Ht Readings from Last 1 Encounters: 05/29/25 1.676 m ( ) , Body mass index is 24.56 kg/m??. VITALS (last 24h) Temp: [36.7 ??C (98 ??F)-36.8 ??C (98.2 ??F)] 36.8 ??C (98.2 ??F) Heart Rate: [77-107] 101 Resp: [10-33] 28 BP: (84-136)/(48-87) 105/80 Visit Vitals BP 105/80 Pulse 101 Temp 36.8 ??C (98.2 ??F) (Oral) Resp (!) 28 Ht 1.676 m (5' ) Wt 69 kg (152 lb 1.9 oz) SpO2 96% BMI 24.56 kg/m?? OB Status Postmenopausal Smoking Status Former BSA 1.79 m?? I & O Summary Intake/Output Summary (Last 24 hours) at 06/05/2025 0957 Last data filed at 06/05/2025 0900 Gross per 24 hour Intake 580 ml Output 232 ml Net 348 ml Labs in last 18 hours BMP Na 139 Cl 105 BUN 32 (H) Glu 97 K 4.2 Co2 22 Cr 0.61 Ca 9.7 iCa ?? Mg 2.1 MEDICATIONS Current Scheduled Medications[1] Current Continuous Medications[2] Current PRN Medications[3] No echocardiogram results found for the past 14 days Physical Exam: GENERAL: WD, WN, NAD. RESP/CHEST: Symmetric expansion; non labored. CTA bilaterally CARD: Regular rate and rhythm, normal S1 and S2, no murmur, rub, or gallop, Pedal pulses palpable, no JVD. No edema. Sternum stable. Extremities: No cyanosis or clubbing GI: Soft, Nontender, nondistended. BS present and normoactive x 4 quadrants SKIN: No rash. Sternal incision with edges approx with nicolas, CDI. DSG over CT sites CDI. NEURO: AAO. Motor intact and no focal deficits PSYCH: Mood and affect congruent and appropriate to situation Assessment and Plan: 70 y.o. 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 PMH includes HTN, HLD, COPD, cerebral venous sinus thrombosis, ascending and descending aortic aneurysms discovered on CT scans ordered by her stove installer. Additionally she has 70-80% stenosis of proximal right ICA and left GLASS INSERTER high grade stenosis. She was evaluated at [facility] with plans for staged repair including elephant trunk followed by endovascular repair however she wanted to be closer to home for a potential procedure. CTA shows maximal diameter of 6.2 cm in descending thoracic aorta. Now status post ALEKSANDR stent with Dr. Franz on 03/13/25. 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 05/27/25 Dr Nicholson - Routine post cardiac surgery care: Sternal precautions x 6 weeks, PT, bowel regimen to prevent constipation and aggressive pulmonary toilet. - ASA, BB, Statin Aneurysm of Descending Thoracic Aorta Without Rupture - Will need procedure with vascular surgery at a later date Post Operative Atrial Fibrillation - Controlled rate, converted to NSR with BB - No AF since 05/30; no plan for AC unless it recurs - Continue metoprolol tartrate 37.5mg po BID Post Operative Volume Overload - Expected after surgery - Admit wt: 71.2 kg - Has been receiving Lasix 20mg po daily (home med hydrochlorothiazide 50mg po daily---holding) - Current wt 69 kg - I&O, daily weights, 2g Na diet, prn cxr & diuresis Acute Blood Loss Anemia - Expected after surgery - H&H on admit 11.8/33.3 - Intraoperatively, pt received 2000 mL of crystalloid, 870 mL of cell saver and the following blood products: 5 PRBC, 3 Platelets, 4 FFP, 2 Cryo, DDAVP, and factor 7 x 3. Pt then received one unit pRBCs on 05/28. - Monitor and transfuse as indicated Post Operative Electrolyte Disturbance - Fluid restrction - Monitor and replace as indicated Dyslipidemia - Continue atorvastatin 20mg po daily Post Operative Pain - MMPM HTN - Home meds include amlodipine 2.5mg po daily (holding); bisoprolol 10mg po nightly (changed to metoprolol tartrate 37.5mg po BID); hydrochlorothiazide 50mg po daily (holding) and currently receivingLasix 20mg po daily; & lisinopril 40mg po daily (holding) COPD - Nebs, pulm toiletry Leukocytosis - Reactive post surgery - Afebrile - Continue to monitor Mood Disorder - Home meds include paroxetine 20mg po daily, continue - Home meds include Xanax Agitation Requiring Sedation - Seroquel 75 BID- change to HS 06/01 - Pt on Xanax at home 0.5mg po BID, currently receiving 3.25mg po BID - Resolved Delirium - Seroquel changed to nightly & DC in 3 days (06/06) - Resolved Left Upper Extremity Swelling - Duplex neg Plan: - PT/OT, mobilize - MT's Dc'd earlier this morning - Probable DC home in am - Excedrin for caffeine withdraw [facility] Cardiothoracic Surgery [phone] Addendum: [id number] her nurse reported recurrent afib. She's already fully beta blocked. Ordered amiodarone per protocol [1] ALPRAZolam, 0.25 mg, Oral, BID aspirin, 81 mg, Oral, Daily atorvastatin, 20 mg, Oral, Nightly clopidogrel, 75 mg, Oral, Daily docusate sodium, 100 mg, Oral, BID enoxaparin, 40 mg, Subcutaneous, Daily furosemide, 20 mg, Oral, Daily ipratropium-albuterol, 3 mL, Nebulization, q4h while awake Nick, 1 packet, Oral, BID metoprolol tartrate, 37.5 mg, Oral, BID PARoxetine, 20 mg, Oral, Daily polyethylene glycol, 17 g, Oral, Daily QUEtiapine, 12.5 mg, Oral, Nightly senna, 17.2 mg, Oral, Nightly [2] [3] PRN medications: [id number], bisacodyl, HYDROcodone- acetaminophen OR HYDROcodone-acetaminophen, HYDROmorphone OR [DISCONTINUED] HYDROmorphone, hydrOXYzine pamoate, ipratropium-albuterol, ondansetron, sodium phosphate * Care Plan - Ricki Giles RN - 06/04/2025 4:27 PM EDT Problem: Adult Inpatient Plan of Care Goal: Plan of Care Review Outcome: Ongoing, Progressing Flowsheets Taken 06/04/20251621 by Ricki Giles RN Progress: improving Plan of Care Reviewed With: patient Taken 06/01/2025 023 by Elena Patrick RN Outcome Evaluation: Pt agreeable with care plan. Goal: Patient-Specific Goal (Individualized) Outcome: Ongoing, Progressing Flowsheets (Taken 06/02/20251999 by Ansley Hernandez RN) Patient/Family-Specific Goals (Include Timeframe): Patient will ambulate/perform ROM to their ability throughout shift Individualized Care Needs: Maximizing mobility Anxieties, Fears or Concerns: Mobility Goal: Absence of Hospital-Acquired Illness or Injury Outcome: Ongoing, Progressing Intervention: Identify and Manage Fall Risk Flowsheets (Taken 06/04/20251621) Safety Promotion/Fall Prevention: activity supervised clutter-free environment maintained nonskid shoes/slippers when out of bed safety round/check completed Intervention: Prevent Skin Injury Flowsheets Taken 06/04/2025 1622 Skin Protection: pulse oximeter probe site changed Taken 06/04/2025 1600 Body Position: weight shifting Intervention: Prevent and Manage VTE (Venous Thromboembolism) Risk Flowsheets (Taken 06/04/2025 1600) VTE Prevention/Management: medication Intervention: Prevent Infection Flowsheets (Taken 06/01/2025 0237 by Elena Patrick RN) Infection Prevention: cohorting utilized environmental surveillance performed equipment surfaces disinfected hand hygiene promoted personal protective equipment utilized rest/sleep promoted single patient room provided Goal: Optimal Comfort and Wellbeing Outcome: Ongoing, Progressing Intervention: Monitor Pain and Promote Comfort Flowsheets (Taken 06/04/2025 1622) Pain Management Interventions: medication (see MAR) Intervention: Provide Person-Centered Care Flowsheets (Taken 06/04/2025 1622) Trust Relationship/Rapport: care explained choices provided emotional support provided empathic listening provided questions answered questions encouraged reassurance provided thoughts/feelings acknowledged Problem: Infection Goal: Absence of Infection Signs and Symptoms Outcome: Ongoing, Progressing Problem: Skin Injury Risk Increased Goal: Skin Health and Integrity Outcome: Ongoing, Progressing Intervention: Optimize Skin Protection Flowsheets Taken 06/04/2025 162 Skin Protection: pulse oximeter probe site changed Head of Bed (HOB) Positioning: HOB elevated Taken 06/04/2025 1600 Activity Management: activity encouraged education provided Intervention: Promote and Optimize Oral Intake Flowsheets (Taken 06/04/2025 162) Oral Nutrition Promotion: physical activity promoted Nutrition Interventions: diet adjusted diet advanced food preferences provided supplemental drinks provided Problem: Cardiovascular Surgery Goal: Effective Bowel Elimination Outcome: Ongoing, Progressing Intervention: Enhance Bowel Motility and Elimination Flowsheets (Taken 06/04/2025 1622) Bowel Elimination Management: hygiene measures promoted toileting offered Goal: Effective Cardiac Function Outcome: Ongoing, Progressing Goal: Optimal Cerebral Tissue Perfusion Outcome: Ongoing, Progressing Intervention: Protect and Optimize Cerebral Perfusion Flowsheets (Taken 06/04/2025 1622) Fever Reduction/Comfort Measures: lightweight clothing Sensory Stimulation Regulation: care clustered lighting decreased Cerebral Perfusion Promotion: blood pressure monitored Head of Bed (HOB) Positioning: HOB elevated Goal: Fluid and Electrolyte Balance Outcome: Ongoing, Progressing Goal: Acceptable Pain Control Outcome: Ongoing, Progressing Intervention: Prevent or Manage Pain Flowsheets (Taken 06/04/2025 1622) Pain Management Interventions: medication (see MAR) Diversional Activities: smartphone Goal: Effective Urinary Elimination Outcome: Ongoing, Progressing Problem: Fall Injury Risk Goal: Absence of Fall and Fall-Related Injury Outcome: Ongoing, Progressing Intervention: Identify and Manage Contributors Flowsheets (Taken 06/04/2025 1622) Medication Review/Management: medications reviewed Self-Care Promotion: independence encouraged Intervention: Promote Injury-Free Environment Flowsheets (Taken 06/04/2025 162) Safety Promotion/Fall Prevention: activity supervised clutter-free environment maintained nonskid shoes/slippers when out of bed safety round/check completed Problem: Self-Care Deficit Goal: Improved Ability to Complete Activities of Daily Living Outcome: Ongoing, Progressing Intervention: Promote Activity and Functional [place] Flowsheets (Taken 06/04/2025 1622) Activity Assistance Provided: assistance, stand-by Adaptive Equipment Use: use encouraged Self-Care Promotion: independence encouraged * Consults - Shira Titus RD - 06/04/2025 4:20 PM EDT Adult Nutrition Evaluation Note Joi Marcial 70 y.o. female CSN: [id number] Room/Bed 237/237A Nutrition evaluation type: follow up Reason for evaluation: Hospital course: 70 yo female S/P Ascending Aortic Replacement, Hemiarch, Circulatory Arrest, Aortic Arch Debranching on 05/27. She is currently intubated, on Propofol and NE. 05/30: Off Propofol and NE. 06/04: Extubated. Cleared for regular diet with thin liquids, no straws per MBS on 06/03. TF and DHT discontinued. Past medical/ surgical history: has a past medical history of Aneurysm (CMS/HCC) (2024), Hyperlipidemia, Hypertension (1989), and Obesity. Social history: Additional comments: 05/28: Discussed on CCM team rounds. Team is hoping to extubate today. 05/30: TF at 35 mL/hr. Vitals and Basic Assessment: BP: 110/82 Temp: 36.8 ??C (98.2 ??F) Invasive Ventilator Initiated (ETT/Trach Only): Yes Oxygen Therapy: None (Room air) O2 Delivery Method: Nasal cannula [employer] Coma Scale Score: 15 John Scale Score: 21 Wilfredo/Cubbin Pressure Risk Score: 45 Most Recent BM Date: 06/02/25 GI Symptoms: None Edema: Generalized Allergies: NKA Medications: Current Scheduled Medications[1] Current Continuous Medications[2] Current PRN Medications[3] Meds were reviewed: Yes Labs: Labs in last 18 hours CBC WBC 13.42 (H) Hb 10.6 (L) Plt 353 Hct 33.2 (L) ANC ?? INR ??, PTT ??, Anti-Xa ?? BMP Na 142 Cl 106 BUN 33 (H) Glu 113 (H) K 4.2 Co2 26 Cr 0.59 (L) Ca 9.7 iCa ?? Mg 2.2, Phos 3.0 Lactate ?? LFT AST ?? AlkPhos ?? T Prot ?? ALK ?? Bili ?? Alb ?? D.Bili ?? HgA1C 5.4 (05/14) Anthropometrics: Height: 167.6 cm (5' 5.98 ) Weight: 68.7 kg (151 lb 7.3 oz) BMI (Calculated): 24.46 Weight Evaluation: Overweight (BMI 25-29.9) [place] Body Weight (kg): 59.1 Percent [place] Body Weight: 120 Estimated Needs: Kcal/ Kg: (-) Kcal Provided: (-) Kcal Needs Based On: (-) Gm Protein/ Kg : (-) Protein Provided: (-) Protein Needs Based On: (-) Metabolic Cart Study Results: Current Nutrition Intake: Diet Supplements: None Diet Order: Adult Diet Diet Texture: Regular Adult Sodium Restriction: 2,000 mg Na Adult Fluid Restriction / 24 hr: 2000 ml fluid Percent Meals Eaten (%): establishing Enteral Nutrition Formula/Solution: (-) Tube Feeding Route: (-) Current Tube Feed Rate (Continuous or Intermittent): (-) Goal Tube Feed Rate (Continuous or Intermittent): (-) Average Infusion: (-) Diet Experience and Nutrition History: Diet Education Provided: Will monitor Pertinent home medications: [facility] needs: Nutrition Focused Physical Exam: Physical exam performed on (date): 05/28 [place] (muscles): None Clavicle (muscle): None Shoulder (muscle): None Orbital (fat): None Triceps (fat): None Assessment of Malnutrition: Malnutrition Identified: No Nutrition Problem: Inadequate oral intake related to mech vent as evidenced by NPO. Status of Nutrition Diagnosis: Resolved Nutrition Interventions and Recommendations: - 2 gm Na diet. - Fluid restriction per team, currently 2000 mL daily. - Adding Nick BID for ONS to assist with surgical wound healing. - Document meal intake and monitor. Nutrition Monitoring and Goals: - TF to provide >80% goal volume (discontinue) - intake >60% meals - wound healing - monitor elytes (ongoing) Acuity Level: [address] [1] ALPRAZolam, 0.25 mg, Oral, BID aspirin, 81 mg, Oral, Daily atorvastatin, 20 mg, Oral, Nightly clopidogrel, 75 mg, Oral, Daily docusate sodium, 100 mg, Oral, BID enoxaparin, 40 mg, Subcutaneous, Daily furosemide, 20 mg, Oral, Daily ipratropium-albuterol, 3 mL, Nebulization, q4h while awake metoprolol tartrate, 37.5 mg, Oral, BID PARoxetine, 20 mg, Oral, Daily polyethylene glycol, 17 g, Oral, Daily QUEtiapine, 12.5 mg, Oral, Nightly senna, 17.2 mg, Oral, Nightly [2] [3] PRN medications: bisacodyl, HYDROcodone-acetaminophen OR HYDROcodone- acetaminophen, HYDROmorphone OR [DISCONTINUED] HYDROmorphone, hydrOXYzine pamoate, ipratropium-albuterol, ondansetron,sodium phosphate * Progress Notes - Delfina Vallejo - 06/04/2025 2:44 PM EDT Speech Language Pathology TREATMENT NOTE Patient Name: Joi Marcial Age: 70 y.o. Today's Date: 06/04/2025 HISTOLOGY TECHNICIAN Treatment Area(s): Swallow Treatment Time Dysphagia: 10 minutes Treatment Time Speech/Language/Cognition: 0 minutes Subjective Ms. Marcial was awake/alert and sitting upright in recliner. RN ok'd session. Family/caregiver present: n/a Objective Current diet: Dietary Orders (From admission, onward) Start Ordered 06/04/25 1129 Adult diet Diet texture: Easy to Chew 7; Sodium restriction: 2,000 mg Na; Dietary fluid restriction / 24h: 2000 ml Fluid Diet effective now Comments: PO Diet recs: IDDSI level 7 regular food consistencies and IDDSI level 0 thin liquids viasingle cup sips. No straws. Alternate bites and sips. Oral meds as pt prefers. Oral care after meals. References: IDDSI Diet Texture Guide Question Answer Comment Diet texture Easy to Chew 7 Sodium restriction: 2,000 mg Na Dietary fluid restriction / 24h: 2000 ml Fluid 06/04/25 1129 Alternate means of nutrition present: n/a Respiratory Status: room air Vitals: 06/04/25 1300 BP: 112/61 Pulse: 85 Resp: 23 Temp: SpO2: 90% Lab Results Component Value Date WBC 13.42 (H) 06/04/2025 Lab Results Component Value Date PLT 353 06/04/2025 PLT 260 06/03/2025 PLT 183 06/02/2025 PO trials of IDDSI level 7 regular food consistencies and IDDSI level 0 thin liquids via cup sip Education re: alternating bite/sips strategy and avoidance of straws during liquid intake Assessment Pt reported that she has not been using strategy to alternate bites/sips during PO intake as recommended following MBS study on 06/03/25. HISTOLOGY TECHNICIAN grad clinician re- educated pt re: rationale for use prior to PO intake during session. Pt self fed soda and margret crackers using alternating bites and sips strategy. She required no further cues to use strategy during the session. No overt s/s of aspirationnoted during PO intake. Pt reported no swallowing concerns since the MBS study yesterday. Pt demonstrated timely mastication this date without wearing partial denture. Pt reported partial plate causing difficulty with mastication and wearing it only at night vs during mealtimes. Recommend upgrade to IDDSI level 7 regular food consistencies rather than IDDSI level 7 easy to chew food consistencies. Patient Education was provided via verbal instruction to patient re: swallow safety. Will continue to provide education in subsequent sessions as warranted. Plan / Recommendations Recommend upgrade to IDDSI level 7 regular food consistencies. Continue IDDSI level 0 thin liquids via cup sip. No straws. Alternate bites and sips. Oral care after meals. Diet Recommendations: regular and thin liquids, no straws, alternate bites and sips Cosigned by Deniz Rocha at 06/04/2025 3:58 PM EDT Associated attestation - Deniz Rocha - 06/04/2025 3:58 PM EDT I attest to the accuracy of this document with edits made. Deniz Rocha MA, CCC-HISTOLOGY TECHNICIAN, B[employer]-S Speech Language Pathologist * Progress Notes - Jenna Brown APRN - 06/04/2025 1:14 PM EDT CVT Progress Note 24 Hour Events/HPI: Patient up in chair visiting with friend. No complaints. Keep Cts again today per Dr. Nicholson. Reports BM two days in a row now. Review of Systems: A complete ROS was obtained. All were negative except as noted in HPI. Objective: All laboratory data, images, tracings, and vital sign data for past 24 hours are personally reviewed unless otherwise noted. @PATIENTWT@ , Weight: 71.2 kg (157 lb) , Ht Readings from Last 1 Encounters: 05/29/25 1.676 m (5' 5.98 ) , Body mass index is 24.46 kg/m??. VITALS (last 24h) Temp: [36.7 ??C (98 ??F)-37.2 ??C (99 ??F)] 36.8 ??C (98.2 ??F) Heart Rate: [77-106] 85 Resp: [17-33] 33 BP: (84-151)/(53-114) 120/64 Visit Vitals BP 120/64 Pulse 85 Temp 36.8 ??C (98.2 ??F) (Oral) Resp (!) 33 Ht 1.676 m (5' 5.98 ) Wt 68.7 kg (151 lb 7.3 oz) SpO2 95% BMI 24.46 kg/m?? OB Status Postmenopausal Smoking Status Former BSA 1.79 m?? I & O Summary Intake/Output Summary (Last 24 hours) at 06/04/2025 1314 Last data filed at 06/04/2025 1200 Gross per 24 hour Intake 1320 ml Output 943 ml Net 377 ml Labs in last 18 hours BMP Na 142 Cl 106 BUN 33 (H) Glu 113 (H) K 4.2 Co2 26 Cr 0.59 (L) Ca 9.7 iCa ?? Mg 2.2 MEDICATIONS Current Scheduled Medications[1] Current Continuous Medications[2] Current PRN Medications[3] No echocardiogram results found for the past 14 days Physical Exam: GENERAL: WD, WN, NAD. EYES: No scleral icterus or conjunctivitis HENT: Atraumatic, normocephalic, nares patent, mucus membranes moist. NG intact right nares. NECK: Supple, trachea midline RESP/CHEST: Symmetric expansion; non labored. CTA bilaterally CARD: Regular rate and rhythm, normal S1 and S2, no murmur, rub, or gallop, Pedal pulses palpable, no JVD. No edema. Sternum stable. Extremities: No cyanosis or clubbing GI: Soft, Nontender, nondistended. BS present and normoactive x 4 quadrants SKIN: No rash. Sternal incision with edges approx with nicolas, CDI. DSG over CT sites CDI. NEURO: AAO. Motor intact and no focal deficits PSYCH: Mood and affect congruent and appropriate to situation Assessment and Plan: 70 y.o. 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 PMH includes HTN, HLD, COPD, cerebral venous sinus thrombosis, ascending and descending aortic aneurysms discovered on CT scans ordered by her stove installer. Additionally she has 70-80% stenosis of proximal right ICA and left GLASS INSERTER high grade stenosis. She was evaluated at [facility] with plans for staged repair including elephant trunk followed by endovascular repair however she wanted to be closer to home for a potential procedure. CTA shows maximal diameter of 6.2 cm in descending thoracic aorta. Now status post ALEKSANDR stent with Dr. Franz on 03/13/25. 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 05/27/25 Dr Nicholson - Routine post cardiac surgery care: Sternal precautions x 6 weeks, PT, bowel regimen to prevent constipation and aggressive pulmonary toilet. - ASA, BB, Statin Aneurysm of Descending Thoracic Aorta Without Rupture - Will need procedure with vascular surgery at a later date Post Operative Atrial Fibrillation - Controlled rate, converted to NSR with BB - No AF since 05/30; no plan for AC unless it recurs - Continue metoprolol tartrate 37.5mg po BID Post Operative Volume Overload - Expected after surgery - Admit wt: 71.2 kg - Has been receiving Lasix 20mg po daily (home med hydrochlorothiazide 50mg po daily---holding) - Current wt 68.7 kg - I&O, daily weights, 2g Na diet, prn cxr & diuresis Acute Blood Loss Anemia - Expected after surgery - H&H on admit 11.833.3 - Intraoperatively, pt received 2000 mL of crystalloid, 870 mL of cell saver and the following blood products: 5 PRBC, 3 Platelets, 4 FFP, 2 Cryo, DDAVP, and factor 7 x 3. Pt then received one unit pRBCs on 05/28. - Current H&H 10.33.2 - Monitor and transfuse as indicated Post Operative Electrolyte Disturbance - Fluid restrction - Monitor and replace as indicated Dyslipidemia - Lipid panel pending - Continue atorvastatin 20mg po daily Post Operative Pain - MMPM HTN - Home meds include amlodipine 2.5mg po daily (holding); bisoprolol 10mg po nightly (changed to metoprolol tartrate 37.5mg po BID); hydrochlorothiazide 50mg po daily (holding) and currently receivingLasix 20mg po daily; & lisinopril 40mg po daily (holding) COPD - Nebs, pulm toiletry Leukocytosis - Reactive post surgery - Afebrile - Continue to monitor Mood Disorder - Home meds include paroxetine 20mg po daily, continue - Home meds include Xanax Agitation Requiring Sedation - Seroquel 75 BID- change to HS 06/01 - Pt on Xanax at home 0.5mg po BID, currently receiving 3.25mg po BID - Resolved Delirium - Seroquel changed to nightly & DC in 3 days (06/06) - Resolved Left Upper Extremity Swelling - Duplex neg Plan: - PT/OT, mobilize - Keep CTs Cardiothoracic Surgery [phone] [1] ALPRAZolam, 0.25 mg, Oral, BID aspirin, 81 mg, Oral, Daily atorvastatin, 20 mg, Oral, Nightly clopidogrel, 75 mg, Oral, Daily docusate sodium, 100 mg, Oral, BID enoxaparin, 40 mg, Subcutaneous, Daily furosemide, 20 mg, Oral, Daily metoprolol tartrate, 37.5 mg, Oral, BID PARoxetine, 20 mg, Oral, Daily polyethylene glycol, 17 g, Oral, Daily QUEtiapine, 12.5 mg, Oral, Nightly senna, 17.2 mg, Oral, Nightly [2] [3] PRN medications: bisacodyl, HYDROcodone-acetaminophen OR HYDROcodone- acetaminophen, HYDROmorphone OR [DISCONTINUED] HYDROmorphone, hydrOXYzine pamoate, ipratropium-albuterol, ondansetron,sodium phosphate * Care Plan - Hari Chapin RN - 06/04/2025 5:00 AM EDT Problem: Skin Injury Risk Increased Goal: Skin Health and Integrity Outcome: Ongoing, Progressing Problem: Cardiovascular Surgery Goal: Effective Bowel Elimination Outcome: Ongoing, Progressing Goal: Effective Cardiac Function Outcome: Ongoing, Progressing Goal: Acceptable Pain Control Outcome: Ongoing, Progressing Goal: Effective Urinary Elimination Outcome: Ongoing, Progressing * Progress Notes - Jenna Brown APRN - 06/03/2025 6:35 PM EDT CVT Progress Note 24 Hour Events/HPI: Patient is excited that she passed her MBS study today. No complaints except that she is ready to get the Cts outp; however, she understands they will be removed when output decreases. Patient reports BM today. Review of Systems: A complete ROS was obtained. All were negative except as noted in HPI. Objective: All laboratory data, images, tracings, and vital sign data for past 24 hours are personally reviewed unless otherwise noted. @PATIENTWT@ , Weight: 71.2 kg (157 lb) , Ht Readings from Last 1 Encounters: 05/29/25 1.676 m (5' 5.98 ) , Body mass index is 24.64 kg/m??. VITALS (last 24h) Temp: [36.7 ??C (98 ??F)-36.8 ??C (98.2 ??F)] 36.7 ??C (98 ??F) Heart Rate: [77-98] 92 Resp: [16-35] 30 BP: (84-137)/(45-97) 137/79 FiO2 (%): [28 %] 28 % Visit Vitals BP 137/79 (BP Location: Left arm, Patient Position: Lying) Pulse 92 Temp 36.7 ??C (98 ??F) (Oral) Resp (!) 30 Ht 1.676 m (5' 5.98 ) Wt 69.2 kg (152 lb 8.9 oz) SpO2 97% BMI 24.64 kg/m?? OB Status Postmenopausal Smoking Status Former BSA 1.79 m?? I & O Summary Intake/Output Summary (Last 24 hours) at 06/03/2025 1836 Last data filed at 06/03/2025 1800 Gross per 24 hour Intake 1365 ml Output 1302 ml Net 63 ml Labs in last 18 hours BMP Na 143 Cl 106 BUN 33 (H) Glu 119 (H) K 4.0 Co2 25 Cr 0.60 Ca 9.4 iCa ?? Mg 2.5 (H) MEDICATIONS Current Scheduled Medications[1] Current Continuous Medications[2] Current PRN Medications[3] No echocardiogram results found for the past 14 days Physical Exam: GENERAL: WD, WN, NAD. EYES: No scleral icterus or conjunctivitis HENT: Atraumatic, normocephalic, nares patent, mucus membranes moist. NG intact right nares. NECK: Supple, trachea midline RESP/CHEST: Symmetric expansion; non labored. CTA bilaterally CARD: Regular rate and rhythm, normal S1 and S2, no murmur, rub, or gallop, Pedal pulses palpable, no JVD. No edema. Sternum stable. Extremities: No cyanosis or clubbing GI: Soft, Nontender, nondistended. BS present and normoactive x 4 quadrants SKIN: No rash. Sternal incision with edges approx with nicolas, CDI. DSG over CT sites CDI. NEURO: AAO. 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 05/27/25 Dr Nicholson - Routine post cardiac surgery care: sternal precautions x 6 weeks, PT, bowel regimen to prevent constipation and aggressive pulmonary toilet. - ASA, BB, Statin Aneurysm of descending thoracic aorta without rupture - will need procedure with vascular surgery at a later date Post operative A-fib Controlled rate, converted to NSR with BB Post operative volume overload - expected after surgery - admit wt: 71.2 kg - current wt 69.2 Acute blood loss anemia - expected after surgery - monitor and transfuse as indicated Post operative electrolyte disturbance - Fluid restrction - monitor and replace as indicated Post operative pain - MMPM HTN - restart home meds as tolerated HLP - Atorvastatin 80 mg COPD - resume home meds as tolerated Leukocytosis - reactive post surgery - afebrile - continue to monitor Delirium - Seroquel wean to off, changed to nightly and stop in 3 days Now improved, pt alert and oriented Agitation requiring sedation - Seroquel 75 BID- change to HS 06/01 - Pt on Xanax at home - Resolved Left upper extremity swelling - duplex neg Plan: - PT/OT, mobilize - Keep Cts - Change meds to oral Cardiothoracic Surgery [id number] [1] acetaminophen, 500 mg, Oral, q6h DANIEL ALPRAZolam, 0.25 mg, Oral, BID [START ON 06/04/2025] aspirin, 81 mg, Oral, Daily atorvastatin, 20 mg, Oral, Nightly [START ON 06/04/2025] clopidogrel, 75 mg, Oral, Daily docusate sodium, 100 mg, Oral, BID enoxaparin, 40 mg, Subcutaneous, Daily [START ON 06/04/2025] furosemide, 20 mg, Oral, Daily guanFACINE, 1 mg, Nasogastric, Nightly metoprolol tartrate, 37.5 mg, Oral, BID [START ON 06/04/2025] PARoxetine, 20 mg, Oral, Daily [START ON 06/04/2025] polyethylene glycol, 17 g, Oral, Daily QUEtiapine, 25 mg, Oral, Nightly Followed by [START ON 06/04/2025] QUEtiapine, 12.5 mg, Oral, Nightly senna, 17.2 mg, Oral, Nightly [2] [3] PRN medications: bisacodyl, HYDROcodone-acetaminophen OR HYDROcodone- acetaminophen, HYDROmorphone OR [DISCONTINUED] HYDROmorphone, hydrOXYzine pamoate, ipratropium-albuterol, ondansetron,sodium phosphate * Progress Notes - Delfina Vallejo - 06/03/2025 12:15 PM EDT INITIAL MODIFIED BARIUM SWALLOW STUDY Patient Name: Joi Marcial Age: 70 y.o. Today's Date: 06/03/2025 Recommendations: IDDSI level 7 regular food consistencies and IDDSI level 0 thin liquids via singlecup sips. No straws. Alternate bites and sips. Oral meds as pt prefers. Oral care after meals. HISTOLOGY TECHNICIAN to follow. History Medical History: Joi Marcial is a 70 year old woman with a PMH of HTN, HLD, hx TUD, right carotid stenosis s/p TCAR, cerebral venous thrombosis, and OA who underwent AAA repair with Dr. Nicholson 05/27. Current diet: NPO diet NPO except: Sips with meds Tube Feeding Tube feeding formula: Impact Peptide 1.5; Route of feeding: Nasoduodenal; Tube feedingschedule: Continuous; Tube feeding continous initial Rate (ml/hr): 35; Advance by (ml): 10; Advanceevery (hr): 6; Tube feeding continuous goal rat... Subjective Ms. Marcial was received awake/alert and upright in wheelchair for study. She was agreeable to the study and cooperative t/o the study. Objective Respiratory Status: 2L via nasal cannula Vitals: 06/03/25 0820 BP: 124/84 Pulse: 95 Resp: 21 Temp: SpO2: 98% Location of procedure: [facility] Projections: lateral view only Oral phase -Lip closure: no labial escape -Tongue Control During Bolus Hold: Cohesive bolus between tongue to palatal seal -Bolus Preparation/Mastication: Disorganized chewing/mashing with solid pieces of bolus unchewed -Bolus Transport/Lingual Motion: Brisk tongue motion -Oral Residue/Amount: Less than half the bolus remaining -Oral Residue Location: Tongue and Palate -Swallow initiation: Bolus head in pyriform sinuses Pharyngeal phase: -Soft palate elevation: No bolus between soft palate/pharyngeal wall -Laryngeal elevation: Partial -Anterior hyoid excursion: Complete -Epiglottic inversion: Partial with smaller volumes; complete with larger or more viscous volumes -Vestibule closure: Incomplete -Stripping wave: Present -Pharyngeal contraction: Not assessed in lateral view -BOT retraction: Incomplete - Pharyngeal residue amount: Collection - Pharyngeal residue location: BOT and Valleculae -UES: reduced extent of distension; slowed transit of contrast via UES PENETRATION/ASPIRATION: Consistency & Method of Administration 1 2 3 4 5 6 7 8 Comments IDDSI level 0 thin liquids via spoon [x] [] [] [] [] [] [] [] IDDSI level 0 thin liquids straw [x] [] [x] [] [] [] [] [] 3 - during IDDSI level 0 thin liquids via cup [x] [x] [] [] [] [] [] [] IDDSI level 4 pureed food consistencies [x] [] [] [] [] [] [] [] IDDSI level 7 regular food consistencies [x] [] [] [] [] [] [] [] Description of Penetration/Aspiration Scale: 1. Material does not enter airway. 2. Material enters airway, remains above the vocal folds, and is ejected from the airway. 3. Material enters airway, remains above the vocal folds, and is not ejected from the airway. 4. Material enters airway, contacts the vocal folds, and is ejected from the airway. 5. Material enters airway, contacts the vocal folds, and is not ejected from the airway. 6. Material enters airway, passes below the vocal folds, and is ejected from trachea. 7. Material enters airway, passes below the vocal folds, and is not ejected from the trachea despite effort. 8. Material enters airway, passes below the vocal folds, and no effort is made to eject. (Fatou Mcnulty et al. A penetration-aspiration scale. Dysphagia. 1996;11(2):93-8.) *The Dysphagia Outcome Severity Scale (LETY; [place], et al, 1999). The LETY is a 7-point scale developed to systematically rate the functional severity of dysphagia based on objective assessment. Assessment Patient presents with oropharyngeal dysphagia, per the LETY*. Oral phase is c/b disorganized mastication and post swallow residual 2/2 reduced lingual strength. Pharyngeal phase is c/b impaired airway protection and pharyngeal inefficiency. No aspiration was observed during this study. Penetration of thin liquids via straw observed during the swallow 2/2 mistiming of bolus flow through the pharynx, reduced laryngeal elevation and LVC. Transient penetration of thin liquids via cup sip noted which is a normal variant. Reduced base of tongue contact with the pharyngeal wall and reduced bolus propulsion (2/2 reduced lingual strength) resulting in post swallow residual on BOT and in valleculae. B ased on pt performance, pt presents with low risk for dysphagia related pulmonary compromise with strategies recommended. Pt presents with low risk for nutritional compromise. HISTOLOGY TECHNICIAN to follow. Dysphagia Outcome and Severity Scale (LETY) O'Betito ALEMAN, Charles Hernandez. et al. (1999) Level 5 - Mild dysphagia: Distance supervision, may need one diet consistency restricted Prognosis: Good for improved function with skilled speech language pathology services focusing on stated goals Patient Education: Pt education was provided verbally re: JESUS study results and recommendations. Results and recommendations of this evaluation were communicated to: RN/Team Plan / Recommendations Diet recommendations: IDDSI level 7 regular food consistencies and IDDSI level 0 thin liquids via single cup sips. No straws. Alternate bites and sips. Oral meds as pt prefers. Oral care after meals.HISTOLOGY TECHNICIAN to follow. Functional Oral Intake Scale (FOIS): 5 -Total oral diet with multiple consistencies, but required special preparation or compensation The Functional Oral Intake Scale (FOIS; Elvi et al., 2005) is a 7-point ordinal scale developed to clinically document change in the functional oral intake of food and liquid in patients with oropharyngeal dysphagia. Therapy Frequency: 1x week for 1 week F/u Imagin-5 days Goals -Participate in repeat instrumental study. -Participate in exercise based dysphagia therapy to improve swallowing physiology. -Demonstrate no clinical signs of aspiration or respiratory distress with intake of recommended PO diet. -Participate in an oral infection care program. Electronically Signed by: Delfina Vallejo - 06/03/2025 - 12:15 PM Cosigned by Deniz Rocha at 06/03/2025 4:36 PM EDT Associated attestation - Deniz Rocha - 06/03/2025 4:36 PM EDT I attest to the accuracy of this document with edits made. Deniz Rocha MA, CCC-HISTOLOGY TECHNICIAN, [employer]-S Speech Language Pathologist * Progress Notes - Sarah Schroeder - 06/03/2025 10:21 AM EDT Physical Therapy Treatment Patient Name: Joi Marcial Today's Date: 06/03/2025 PT Discharge Recommendations: Home with assistance Equipment Recommended: Patient owns appropriate equipment Total Treatment Time: 24 minutes Subjective Pt agreeable to PT session Participants in Care Family/Caregiver Present: No Presentation Oxygen Therapy: Supplemental oxygen O2 Delivery Method: Nasal cannula O2 Flow Rate (L/min): 2 L/min Lines and Tubes: Telemetry Chest Tube 3 Right Pleural 32 Fr (Active) Y Chest Tube 1 and 2 Anterior Mediastinal 32 Fr. Anterior Mediastinal 32 Fr. (Active) Feeding Tube Gastric 10 Fr. Right nare (Active) Peripheral IV 05/27/25 Right Antecubital (Active) Peripheral IV 06/01/25 Anterior;Right Forearm (Active) Pre-Session: Lines intact, Sitting in chair Post-Session: Sitting in chair, RN notified, Lines intact, Call light in reach Post-Session Comments: RN ok without chair alarm Precautions Medical Precautions: Sternal Objective Pain Pt reported pain at incisional site but did not rate. Pt positioned for comfort at end of session. Delirium Screening RASS: Alert and calm Confusion Assessment Method-ICU (CAM-ICU/PCAM-ICU) Feature 3: Altered Level of Consciousness: Negative Transfers Transfer Exam: Sit to stand Level of [place]: Minimum assist (75% patient's effort) Physical/Nonphysical Assist: Verbal Cues, Moderate cues Assistive Device: Rollator Transfer Exam: Stand to Sit Level of [place]: Contact guard Physical/Nonphysical Assist: Verbal Cues, Minimal cues Assistive Device: Rollator Transfer Exam: Bed to Chair/Chair to Bed Level of [place]: Minimum assist (75% patient's effort) Physical/Nonphysical Assist: Verbal Cues, Moderate cues Assistive Device: Rollator Ambulation Device: Rollator Assistance: Contact guard assist, Minimal verbal cues Distance : 320' Ambulation Comments: Pt demonstrated decreased neil, step length, and increased distance from AD. Verbal cues provided for upright posture, to stay closer to AD for improve stability, and pacing. Pt required no rest breaks. Therapeutic Activity (24 minutes) Pt participated in therapeutic activities including functional transfers and ambulation to improve strength, balance, endurance and independence with functional mobility. Verbal and tactile cues provided by therapist for hand placement and improved body mechanics to improve safety and efficiency with sit to stand transfers. Pt completed ambulation with cues for upright posture, to maintain proximity to AD, and for pacing. Pt required no rest breaks and maintained vital signs WNL during activity. Pt educated on walking HEP consisting of ambulating to bathroom as needed, eating meals in bedsidechair, and ambulating in hallways 3x/day while inpatient to maintain strength and endurance. Pt verbalized understanding. Assessment Pt demonstrated improved functional mobility and activity tolerance noted by decreased assist with ambulation and increased ambulation distance. Pt maintained vital signs WNL during session. Pt continues to be limited by impaired strength, balance, and endurance. Pt would benefit from continued skil led PT intervention to progress functional mobility. PT Recommendations Discharge Destination: Home with assistance Discharge Equipment: Patient owns appropriate equipment Plan Progress PT POC PT Goals PT GOAL DETAILS Goal Established Date Time Frame Goal Status PT Goal 1: Pt will perform supine <> sit SBA x1 and maintain precautions 06/01/25 2 weeks PT Goal 2: Pt will perform sit to stand and bed to chair transfers SBA x1 with LRAD 06/01/25 2 weeks PT Goal 3: Pt will ambulate 600' SBA x1 with LRAD, no losses of balance, or rest breaks 06/01/25 2 weeks PT Goal 4: Pt will navigate 5 stairs with SBA x1 and no losses of balance 06/01/25 2 weeks Written by Sarah Schroeder on 06/03/25 at 1:07 PM. * Progress Notes - Rachel Alston - 06/03/2025 10:20 AM EDT Occupational Therapy Treatment Patient Name: Joi Marcial Today's Date: 06/03/2025 Total Treatment Time: 23 minutes OT Discharge Recommendations: Home with assistance Equipment Recommended: Patient owns appropriate equipment Subjective I feel pretty good. Participants in Care Family/Caregiver Present: No Presentation Oxygen Therapy: Supplemental oxygen O2 Delivery Method: Nasal cannula O2 Flow Rate (L/min): 2 L/min Lines and Tubes: Telemetry Chest Tube 3 Right Pleural 32 Fr (Active) Y Chest Tube 1 and 2 Anterior Mediastinal 32 Fr. Anterior Mediastinal 32 Fr. (Active) Feeding Tube Gastric 10 Fr. Right nare (Active) Peripheral IV 05/27/25 Right Antecubital (Active) Peripheral IV 06/01/25 Anterior;Right Forearm (Active) Pre-Session: Lines intact, Sitting in chair Post-Session: Sitting in chair, RN notified, Lines intact, Call light in reach Post-Session Comments: RN ok without chair alarm Precautions Medical Precautions: Sternal Objective Pain Pt reporting sternal pain: unrated Pillow support provided at end of session and RN aware. Delirium Screening RASS: Alert and calm Confusion Assessment Method-ICU (CAM-ICU/PCAM-ICU) Feature 1: Acute Onset or Fluctuating Course: Positive Feature 2: Inattention: Negative Feature 3: Altered Level of Consciousness: Negative Feature 4: Disorganized Thinking: Positive Overall CAM-ICU/PCAM-ICU: Negative Cognition Cognition Overall Cognitive Status: Within Functional Limits Arousal/Alertness: Appropriate responses to stimuli Mood/Behavior: Alert Orientation Level: Oriented X4 Single Step Commands: Consistently Multi-Step Commands: Consistently Method of Communication: Verbal Safety Judgment: Decreased awareness of need for assistance Awareness of Errors: Assistance required to identify errors made Deficit Awareness: Fully aware of deficits Attention Span: Appears intact Self-Care Interventions Self Care/Home Management (ADLs) Time Entry: 23 Community Re-entry: Pt educated on sternal precautions prior to mobility and importance of carryover. Pt verbalized understanding but demonstrated fair carryover. Pt. participated in functional endurance tasks in preparation for high level ADL routines. Pt. completed sit to stand from recliner withCGA. Pt. completed 320ft navigation task at hallway level to simulate ADL's in home environment with CGA and rollator. Pt. tolerated task well with no safety concerns noted and no rest break required. Cues also provided throughout session to promote upright posture, activity pacing, and pursed lip breathing with improved carryover noted with session progression. OT monitored vital signs closely throughout session to assess for patient???s tolerance to treatment, which were stable throughout. Additional time spent educating patient/family on ADLs with sternal precautions and potential needs for AE/DME at discharge. Pt educated on role of OT, discharge recommendations, and expectations for mobility while inpatient. Pt verbalized understanding but would benefit from continued education to improve carryover. Assessment Pt participated in OT session with a focus on ADL retraining and functional endurance. Pt toleratedsession with fair energy for task. Pt is most limited by endurance and pain but is making good progress towards goals. Pt would benefit from continued skilled OT services to address AE/DME training, activity tolerance, and overall muscle power needed for increased independence with ADLs and functional mobility. OT Recommendations Discharge Destination: Home with assistance Discharge Equipment: Patient owns appropriate equipment Plan Continue OT POC. Goals OT GOAL DETAILS Goal Established Date Time Frame Goal Status OT Goal 1: Pt will complete total body dressing skills with modified independence and appropriate adaptive device. 06/01/25 2 weeks OT Goal 2: Pt will complete toileting skills with modified independence and appropriate adaptive device. 06/01/25 2 weeks OT Goal 3: Pt will complete functional transfers with modified independence and appropriate adaptive device to increase independence with toilet transfers. 06/01/25 2 weeks OT Goal 4: Pt will independently adhere to sternal precautions during all ADL tasks and functional transfers. 06/01/25 2 weeks Written by Rachel Alston on 06/03/25 at 12:33 PM. * Care Plan - Ansley Hernandez RN - 06/03/2025 3:12 AM EDT Problem: Adult Inpatient Plan of Care Goal: Plan of Care Review Outcome: Ongoing, Progressing Flowsheets (Taken 06/03/2025 0311) Progress: improving Plan of Care Reviewed With: patient Goal: Patient-Specific Goal (Individualized) Outcome: Ongoing, Progressing Flowsheets (Taken 06/02/20251999) Patient/Family-Specific Goals (Include Timeframe): Patient will ambulate/perform ROM to their ability throughout shift Individualized Care Needs: Maximizing mobility Anxieties, Fears or Concerns: Mobility Goal: Absence of Hospital-Acquired Illness or Injury Outcome: Ongoing, Progressing Intervention: Identify and Manage Fall Risk Flowsheets (Taken 06/02/20251999) Safety Promotion/Fall Prevention: activity supervised lighting adjusted room organization consistent safety round/check completed Intervention: Prevent Skin Injury Flowsheets Taken 06/03/2025 0200 Body Position: turned left Taken 06/02/20251999 Skin Protection: incontinence pads utilized Intervention: Prevent and Manage VTE (Venous Thromboembolism) Risk Flowsheets (Taken 06/03/2025 0200) VTE Prevention/Management: medication Intervention: Prevent Infection Flowsheets (Taken 06/01/2025 0237 by Elena Patrick, RN) Infection Prevention: cohorting utilized environmental surveillance performed equipment surfaces disinfected hand hygiene promoted personal protective equipment utilized rest/sleep promoted single patient room provided Goal: Optimal Comfort and Wellbeing Outcome: Ongoing, Progressing Intervention: Monitor Pain and Promote Comfort Flowsheets (Taken 06/03/2025 0253) Pain Management Interventions: medication (see MAR) Intervention: Provide Person-Centered Care Flowsheets (Taken 06/01/2025 0237 by Elena Patrick, RN) Trust Relationship/Rapport: care explained choices provided * Care Plan - Heavenly Magana RN - 06/02/2025 2:39 PM EDT Problem: Adult Inpatient Plan of Care Goal: Plan of Care Review Outcome: Ongoing, Progressing Flowsheets Taken 06/02/2025 0043 by Simón Cash, RN Progress: improving Plan of Care Reviewed With: patient Taken 06/01/2025236 by Elena Patrick RN Outcome Evaluation: Pt agreeable with care plan. Goal: Patient-Specific Goal (Individualized) Outcome: Ongoing, Progressing Goal: Absence of Hospital-Acquired Illness or Injury Outcome: Ongoing, Progressing Intervention: Identify and Manage Fall Risk Flowsheets (Taken 06/02/2025 08) Safety Promotion/Fall Prevention: activity supervised fall prevention program maintained Intervention: Prevent Skin Injury Flowsheets Taken 06/02/2025 1000 by Heavenly Magana RN Body Position: turned right Taken 06/02/202542 by Simón Cash, RN Skin Protection: incontinence pads utilized Intervention: Prevent and Manage VTE (Venous Thromboembolism) Risk Flowsheets (Taken 06/02/2025799) VTE Prevention/Management: medication Intervention: Prevent Infection Flowsheets (Taken 06/01/2025236 by Elena Patrick, RN) Infection Prevention: cohorting utilized environmental surveillance performed equipment surfaces disinfected hand hygiene promoted personal protective equipment utilized rest/sleep promoted single patient room provided Goal: Optimal Comfort and Wellbeing Outcome: Ongoing, Progressing Intervention: Monitor Pain and Promote Comfort Flowsheets (Taken 06/02/2025 0825) Pain Management Interventions: medication (see MAR) Intervention: Provide Person-Centered Care Flowsheets (Taken 06/01/2025236 by Elena Patrick, RN) Trust Relationship/Rapport: care explained choices provided Problem: Infection Goal: Absence of Infection Signs and Symptoms Outcome: Ongoing, Progressing Intervention: Prevent or Manage Infection Flowsheets Taken 06/02/2025799 by Heavenly Magana RN Isolation Precautions: precautions maintained Taken 06/02/202542 by Simón Cash, RN Infection Management: aseptic technique maintained Fever Reduction/Comfort Measures: lightweight bedding Problem: Skin Injury Risk Increased Goal: Skin Health and Integrity Outcome: Ongoing, Progressing Intervention: Optimize Skin Protection Flowsheets Taken 06/02/2025799 by Heavenly Magana RN Activity Management: back to bed Head of Bed (HOB) Positioning: HOB at 20-30 degrees Taken 06/02/202542 by Simón Cash RN Pressure Reduction Devices: positioning supports utilized Skin Protection: incontinence pads utilized Taken 06/01/2025236 by Elena Patrick RN Pressure Reduction Techniques: frequent weight shift encouraged heels elevated off bed Intervention: Promote and Optimize Oral Intake Flowsheets Taken 06/01/2025236 by Elena Patrick RN Nutrition Interventions: diet adjusted Taken 05/30/2025 1200 by Kayla Ramirez RN Oral Nutrition Promotion: nutrition counseling provided Problem: Cardiovascular Surgery Goal: Effective Bowel Elimination Outcome: Ongoing, Progressing Intervention: Enhance Bowel Motility and Elimination Flowsheets (Taken 06/02/202542 by Simón Cash, RN) Bowel Elimination Management: toileting offered sitting position facilitated Bowel Motility Enhancement: ambulation promoted Goal: Effective Cardiac Function Outcome: Ongoing, Progressing Intervention: Optimize Cardiac Output and Blood Flow Flowsheets Taken 06/02/202542 by Simón Cash, RN Dysrhythmia Management: pacing wires maintained Taken 06/01/2025236 by Elena Patrick RN Stabilization Measures: airway opened Goal: Optimal Cerebral Tissue Perfusion Outcome: Ongoing, Progressing Intervention: Protect and Optimize Cerebral Perfusion Flowsheets Taken 06/02/2025 0800 by Heavenly Magana RN Head of Bed (HOB) Positioning: HOB at 20-30 degrees Taken 06/02/202542 by Simón Cash RN Fever Reduction/Comfort Measures: lightweight bedding Sensory Stimulation Regulation: care clustered Cerebral Perfusion Promotion: blood pressure monitored Taken 06/01/2025236 by Elena Patrick RN Glycemic Management: blood glucose monitored Goal: Fluid and Electrolyte Balance Outcome: Ongoing, Progressing Intervention: Monitor and Manage Fluid and Electrolyte Balance Flowsheets (Taken 06/02/202542 by Simón Cash RN) Fluid/Electrolyte Management: electrolyte supplement initiated Goal: Acceptable Pain Control Outcome: Ongoing, Progressing Intervention: Prevent or Manage Pain Flowsheets Taken 06/02/2025 1437 by Heavenly Magana RN Complementary Therapy: aromatherapy utilized Taken 06/02/2025 0825 by Heavenly Magana, bariatric nurse Interventions: medication (see MAR) Taken 06/02/202542 by Simón Cash RN Diversional Activities: television Goal: Effective Urinary Elimination Outcome: Ongoing, Progressing Intervention: Monitor and Manage Urinary Retention Flowsheets (Taken 06/02/2025 1437) Urinary Elimination Promotion: other (see comments) Problem: Fall Injury Risk Goal: Absence of Fall and Fall-Related Injury Outcome: Ongoing, Progressing Intervention: Identify and Manage Contributors Flowsheets Taken 06/02/2025 0043 by Simón Cash, RN Self-Care Promotion: independence encouraged Taken 06/01/2025 0237 by Elena Patrick RN Medication Review/Management: medications reviewed Intervention: Promote Injury-Free Environment Flowsheets (Taken 06/02/2025 0800) Safety Promotion/Fall Prevention: activity supervised fall prevention program maintained Problem: Self-Care Deficit Goal: Improved Ability to Complete Activities of Daily Living Outcome: Ongoing, Progressing Intervention: Promote Activity and Functional [place] Flowsheets Taken 06/02/2025 1437 by Heavenly Magana RN Adaptive Equipment Use: use encouraged Taken 06/02/2025 0600 by Simón Cash RN Activity Assistance Provided: assistance, 1 person Taken 06/02/2025 0043 by Simón Cash RN Self-Care Promotion: independence encouraged * Clinician Note - Doyle Fabian PA - 06/02/2025 11:21 AM EDT 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 05/27/25 Dr Nicholson - Routine post cardiac surgery care: sternal precautions x 6 weeks, PT, bowel regimen to prevent constipation and aggressive pulmonary toilet. - ASA, BB, Statin Aneurysm of descending thoracic aorta without rupture - will need procedure with vascular surgery at a later date Post operative A-fib Controlled rate, converted to NSR with BB Post operative volume overload - expected after surgery - admit wt: 71.2 kg - Acute blood loss anemia - expected after surgery - monitor and transfuse as indicated Post operative electrolyte disturbance - Fluid restrction - monitor and replace as indicated Post operative pain - MMPM HTN - restart home meds as tolerated HLP - Atorvastatin 80 mg COPD - resume home meds as tolerated Leukocytosis - reactive post surgery - afebrile - continue to monitor Delirium -Seroquel wean to off, changed to nightly and stop in 3 days Now improved, pt alert and oriented Agitation requiring sedation - Seroquel 75 BID- change to HS 06/01 Pt on Xanax at home Left upper extremity swelling -duplex neg * Progress Notes - Jannette Painting - 06/02/2025 9:02 AM EDT Case Management Adult Progress Note Joi Marcial 70 y.o. 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 No Housing Circumstances: Not Applicable Housing Circumstances Action Taken: Other N/A Additional Comments SW reviewed chart for case updates. Pt is s/p valve-sparing ascending aortic and arch aneurysm repair with debranching of innominate and left carotid on 05/27/25. Plan to downgrade to tele, dc pacing wires, and continue chest tubes this date. Pt to also have MBS this date. Per MD, pt is not medicallyready for DC this date. See medical notes for more detail. No further SW concerns identified at this time. SW will monitor pt's progress and will follow up with DC planning and needs as appropriate. [place] Steve * Assessment & Plan Note - Nidia Vance APRN - 06/02/2025 8:07 AM EDT Associated Problem(s): Cardiac volume overload (Resolved 06/07/2025) Diurese as indicated * Assessment & Plan Note - Nidia Vance APRN - 06/02/2025 8:07 AM EDT Associated Problem(s): Leukocytosis Monitor post op likely reactive * Assessment & Plan Note - Nidia Vance APRN - 06/02/2025 8:07 AM EDT Associated Problem(s): Agitation requiring sedation protocol (Resolved 06/02/2025) Precedex re-started 05/31, tolerating well. - Seroquel 75 BID- change to HS 06/01 Pt on Xanax at home * Assessment & Plan Note - Nidia Vance APRN - 06/02/2025 8:07 AM EDT Associated Problem(s): Delirium due to multiple etiologies (Resolved 06/07/2025) -Seroquel wean to off, changed to nightly and stop in 3 days Now improved, pt alert and oriented * Assessment & Plan Note - Nidia Vance APRN - 06/02/2025 8:07 AM EDT Associated Problem(s): Left upper extremity swelling (Resolved 06/07/2025) -duplex neg * Assessment & Plan Note - Nidia Vance APRN - 06/02/2025 8:07 AM EDT Associated Problem(s): A-fib (CMS/HCC) (Resolved 06/07/2025) -Monitor per protocol. 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 Nicholson * Assessment & Plan Note - Nidia Vance APRN - 06/02/2025 8:07 AM EDT Associated Problem(s): 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) -will need procedure with vascular surgery * Assessment & Plan Note - Nidia Vance APRN - 06/02/2025 8:07 AM EDT Associated Problem(s): Poorly-controlled hypertension -on cleviprex and nitroglycerin post op since weaned - PRN IV meds as needed * Assessment & Plan Note - Nidia Vance APRN - 06/02/2025 8:07 AM EDT Associated Problem(s): BMI 25.0-25.9,adult (Deleted) Body mass index is 25.1 kg/m??. -complicates aspects of care * Assessment & Plan Note - Nidia Vance APRN - 06/02/2025 8:07 AM EDT Associated Problem(s): Hyperlipidemia - statin * Assessment & Plan Note - Nidia Vance APRN - 06/02/2025 8:07 AM EDT Associated Problem(s): COPD (chronic obstructive pulmonary disease) ([facility]) -on mechanically assisted ventilation, expected s/p AAA repair, and root replace - evaluate for extubation- now extubated * Assessment & Plan Note - Nidia Vance APRN - 06/02/2025 8:07 AM EDT Associated Problem(s): H/O aortic arch replacement -05/27: Ascending aortic and arch aneurysm repair with ascending aortic replacement using a 28 Hemashield graft and aortic arch replacement using a 32 Hemashield tube graft with deep circulatory arrestusing bilateral antegrade cerebral perfusion and de-branching of the innominate artery and the leftcarotid artery with valve sparing * Assessment & Plan Note - Nidia Vance APRN - 06/02/2025 8:07 AM EDT Associated Problem(s): H/O ascending aortic replacement -05/27: Ascending aortic and arch aneurysm repair with ascending aortic replacement using a 28 Hemashield graft and aortic arch replacement using a 32 Hemashield tube graft with deep circulatory arrestusing bilateral antegrade cerebral perfusion and de-branching of the innominate artery and the leftcarotid artery with valve sparing * Assessment & Plan Note - Nidia Vance APRN - 06/02/2025 8:07 AM EDT Associated Problem(s): H/O transcarotid artery revascularization (TCAR) -02/2025 * Assessment & Plan Note - Nidia Vance APRN - 06/02/2025 8:07 AM EDT Associated Problem(s): Hypokalemia -Monitor per protocol and replaced as indicated * Progress Notes - Marques Pal MD - 06/02/2025 8:07 AM EDT Images from the original note were not included. CARDIOTHORACIC SURGERY PROGRESS NOTE SUBJECTIVE Acute Events/Last 24 Hrs: Ambulated x3. Remains sinus in 80s. Normotensive. Had 1.7L UOP and 210 from tubes. OBJECTIVE All laboratory data, images, tracings, and vital sign data for past 24 hours are personally reviewed unless otherwise noted. Physical Exam VITALS (last 24h) 06/01/2025 8:23 PM 06/01/2025 10:00 PM 06/02/2025 12:00 AM 06/02/2025 3:00 AM 06/02/2025 4:00 AM 06/02/2025 5:00 AM 06/02/2025 6:00 AM Vitals Systolic 106 131 141 133 120 Diastolic 49 102 63 68 69 Heart Rate 95 85 83 79 83 Temp 36.8 C 36.8 C Resp 22 18 26 28 25 Weight (kg) 70.5 kg BMI 25.1 kg/m2 BSA (m2) 1.81 m2 06/01/2025 8:23 PM 06/01/2025 10:00 PM 06/02/2025 12:00 AM 06/02/2025 3:00 AM 06/02/2025 4:00 AM 06/02/2025 5:00 AM 06/02/2025 6:00 AM Vitals Systolic 106 131 141 133 120 Diastolic 49 102 63 68 69 Heart Rate 95 85 83 79 83 Temp 36.8 C 36.8 C Resp 22 18 26 28 25 Weight (kg) 70.5 kg BMI 25.1 kg/m2 BSA (m2) 1.81 m2 06/01/2025 8:23 PM 06/01/2025 10:00 PM 06/02/2025 12:00 AM 06/02/2025 3:00 AM 06/02/2025 4:00 AM 06/02/2025 5:00 AM 06/02/2025 6:00 AM Vitals Systolic 106 131 141 133 120 Diastolic 49 102 63 68 69 Heart Rate 95 85 83 79 83 Temp 36.8 C 36.8 C Resp 22 18 26 28 25 Weight (kg) 70.5 kg BMI 25.1 kg/m2 BSA (m2) 1.81 m2 O2 Delivery Method: Nasal cannula GENERAL: No acute distress, resting comfortably EYES: extraoccular eye movement grossly intact, pupils equal and reactive, anicteric NECK: no JVD, no thyromegaly RESP/CHEST: Symmetric expansion; non labored. CTA bilaterally. CARD: RRR, warm, 2+PP EXTREMITIES: No lower extremity edema present. GI: Soft, Nontender, nondistended. NEURO: AAOx4. No focal deficits PSYCH: Mood and affect congruent and appropriate to situation. INCISIONS: Sternum - Wound Vac in place Intake/Output Intake/Output Summary (Last 24 hours) at 06/02/2025 0807 Last data filed at 06/02/2025 0600 Gross per 24 hour Intake 565 ml Output 1960 ml Net -1395 ml Results Labs in last 18 hours CBC WBC 8.82 Hb 10.7 (L) Plt 183 Hct 33.0 (L) ANC ?? INR ??, PTT ??, Anti-Xa ?? BMP Na 144 Cl 110 (H) BUN 25 (H) Glu 116 (H) K 4.8 Co2 25 Cr 0.57 (L) Ca 9.1 iCa ?? Mg 2.4, Phos 2.2 (L) Lactate ?? LFT AST ?? AlkPhos ?? T Prot ?? ALK ?? Bili ?? Alb ?? D.Bili ?? Imaging No echocardiogram results found for the past 14 days No valid procedures specified. XR Chest 1 View Result Date: 06/02/2025 Stable mediastinal silhouette with improved aeration within the lung bases bilaterally. No pneumothorax CRITICAL RESULT: No. COMMUNICATION: Per this written report. Drafted by Les Steele MD on 06/02/2025 4:40 AM Final report signed by Les Steele MD on 06/02/2025 4:40 AM VAS US Venous Duplex Upper Extremity Unilateral Left Result Date: 06/01/2025 Left: Normal study; no evidence of acute DVT is identified. COMMUNICATION: Per this written report.Preliminary report signed by Sapphire Sahni on 06/01/2025 4:29 PM XR Abdomen 1 View Result Date: 06/01/2025 Nonobstructive bowel gas pattern. No pneumoperitoneum. CRITICAL RESULT: No. COMMUNICATION: Per thiswritten report. 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 ([facility]/HCC) Active Problems: Cerebral venous sinus thrombosis Aneurysm of descending thoracic aorta without rupture ([facility]/HCC) Poorly-controlled hypertension BMI 25.0-25.9,adult Hyperlipidemia COPD (chronic obstructive pulmonary disease) ([facility]) 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 H/O transcarotid artery revascularization (TCAR) Hypokalemia Cardiac volume overload Leukocytosis Agitation requiring sedation protocol Delirium due to multiple etiologies Left upper extremity swelling A-fib ([facility]) 70 yrs female who underwent valve-sparing ascending aortic and arch aneurysm repair with debranching of innominate and left carotid on 05/27/[address] Nicholson. (6 Days Post-Op) - wean guanfacine to at bedtime only - Aspirin, statin, cont metop 37.5mg bid - 20mg PO Lasix - Continue chest tubes - remove pacing wires - HISTOLOGY TECHNICIAN on consult: cont TF, MBS today - restart home plavix for carotid TCAR in 02/2025 - cont DVT ppx - remove prevena, cerda, and CVC - Mobilize, PT/OT - ok for tele Cardiothoracic Surgery 06/02/25 8:07 AM Cosigned by Jose C Nicholson MD at 06/02/2025 5:04 PM EDT Associated attestation - Jose C Nicholson MD - 06/02/2025 5:04 PM EDT I saw and evaluated the patient with the resident/fellow. I discussed the case with the resident/fellow and agree with the findings and plan as documented. * Progress Notes - Nidia Vance APRN - 06/02/2025 8:05 AM EDT 06/02/25 Joi Marcial HPI Joi Marcial is a 70 y.o. 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 If applicable, patient is s/p Procedure(s) and Anesthesia Type: * Ascending Aortic Replacement, Hemiarch, Circulatory Arrest, Aortic Arch Debranching - General. Patient is 6 Days Post-Op with Cardiothoracic Surgery. Past 24 hours: PM: NAEON. AM: Wires out, Plavix start. Needs MBS Edited by: Nidia Vance APRN at 06/02/2025 0806 Lines/Drains/Tubes: Patient Lines/Drains/Airways Status Active Active LDAs Name Placement date Placement time Site Days Peripheral IV 05/27/25 Right Antecubital 05/27/25 0655 Antecubital 6 Peripheral IV 06/01/25 Anterior;Right Forearm 06/01/25 0504 Forearm 1 Chest Tube 3 Right Pleural 32 Fr 05/27/25 1702 Pleural 5 Urethral Catheter Non-latex;Temperature probe 16 Fr. 05/27/25 0725 -- 6 Y Chest Tube 1 and 2 Anterior Mediastinal 32 Fr. Anterior Mediastinal 32 Fr. 05/27/25 1700 -- 5 Feeding Tube Gastric 10 Fr. Right nare 05/29/25 1215 Right nare 3 Negative Pressure Wound Therapy Sternum 05/27/25 1749 Sternum 5 GCS: [employer] Coma Scale Score: 15 Review of Systems 14 point ROS reviewed and otherwise negative or unobtainable except as noted above or in HPI. Vital signs: Vitals: 06/02/25 0600 BP: 120/69 Pulse: 83 Resp: 25 Temp: SpO2: 98% Intake/Output Summary (Last 24 hours) at 06/02/2025 0806 Last data filed at 06/02/2025 0600 Gross per 24 hour Intake 565 ml Output 1960 ml Net -1395 ml Physical Exam Constitutional: Comments: Oob in chair HENT: Head: Normocephalic. Nose: Nose normal. Mouth/Throat: Mouth: Mucous membranes are dry. Eyes: Pupils: Pupils are equal, round, and reactive to light. Cardiovascular: Rate and Rhythm: Normal rate and regular rhythm. Pulmonary: Effort: Pulmonary effort is normal. Breath sounds: Normal breath sounds. Abdominal: General: Bowel sounds are normal. Palpations: Abdomen is soft. Musculoskeletal: Cervical back: Neck supple. Right lower leg: No edema. Left lower leg: No edema. Skin: General: Skin is dry. Capillary Refill: Capillary refill takes less than 2 seconds. Neurological: Mental Status: She is oriented to person, place, and time. Comments: Oriented/ appropriate however some slowness in back and forth conversation Psychiatric: Behavior: Behavior normal. Results Review I have reviewed the latest lab and imaging results. Assessment and Plan: This patient is critically ill. 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) Present on Admission: Yes -will need procedure with vascular surgery Poorly-controlled hypertension Present on Admission: Yes -on cleviprex and nitroglycerin post op since weaned - PRN IV meds as needed BMI 25.0-25.9,adult Present on Admission: Not Applicable Body mass index is 25.1 kg/m??. -complicates aspects of care Hyperlipidemia Present on Admission: Yes - statin COPD (chronic obstructive pulmonary disease) (CMS/HCC) Present on Admission: Yes -on mechanically assisted ventilation, expected s/p AAA repair, and root replace - evaluate for extubation- now extubated H/O aortic arch replacement Present on Admission: Not Applicable -05/27: Ascending aortic and arch aneurysm repair with ascending aortic replacement using a 28 Hemashield graft and aortic arch replacement using a 32 Hemashield tube graft with deep circulatory arrestusing bilateral antegrade cerebral perfusion and de-branching of the innominate artery and the leftcarotid artery with valve sparing H/O ascending aortic replacement Present on Admission: Not Applicable -05/27: Ascending aortic and arch aneurysm repair with ascending aortic replacement using a 28 Hemashield graft and aortic arch replacement using a 32 Hemashield tube graft with deep circulatory arrestusing bilateral antegrade cerebral perfusion and de-branching of the innominate artery and the leftcarotid artery with valve sparing H/O transcarotid artery revascularization (TCAR) Present on Admission: Not Applicable -02/2025 Hypokalemia Present on Admission: No -Monitor per protocol and replaced as indicated Cardiac volume overload Present on Admission: No Diurese as indicated Leukocytosis Present on Admission: No Monitor post op likely reactive Agitation requiring sedation protocol Present on Admission: No Precedex re-started 05/31, tolerating well. - Seroquel 75 BID- change to HS 06/01 Pt on Xanax at home Delirium due to multiple etiologies Present on Admission: No -Seroquel wean to off, changed to nightly and stop in 3 days Now improved, pt alert and oriented Left upper extremity swelling Present on Admission: Yes -duplex neg A-fib (CMS/HCC) Present on Admission: Unknown -Monitor per protocol. Non-Hospital Problems Peripheral vascular disease (CMS/HCC) (Chronic) Asymptomatic stenosis of right carotid artery Nidia Vance APRN * Care Plan - Simón Cash RN - 06/02/2025 12:49 AM EDT Problem: Adult Inpatient Plan of Care Goal: Plan of Care Review Outcome: Ongoing, Progressing Flowsheets (Taken 06/02/202542) Progress: improving Plan of Care Reviewed With: patient Goal: Patient-Specific Goal (Individualized) Outcome: Ongoing, Progressing Flowsheets (Taken 06/02/202542) Patient/Family-Specific Goals (Include Timeframe): patient will have a formed BM during shift Individualized Care Needs: asssist to bedside toilet Anxieties, Fears or Concerns: needs to have BM Goal: Absence of Hospital-Acquired Illness or Injury Outcome: Ongoing, Progressing Intervention: Identify and Manage Fall Risk Flowsheets (Taken 06/02/202542) Safety Promotion/Fall Prevention: activity supervised nonskid shoes/slippers when out of bed clutter-free environment maintained Goal: Optimal Comfort and Wellbeing Outcome: Ongoing, Progressing Intervention: Monitor Pain and Promote Comfort Flowsheets (Taken 06/02/202542) Pain Management Interventions: care clustered pain management plan reviewed with patient/caregiver Problem: Infection Goal: Absence of Infection Signs and Symptoms Outcome: Ongoing, Progressing Intervention: Prevent or Manage Infection Flowsheets (Taken 06/02/202542) Infection Management: aseptic technique maintained Fever Reduction/Comfort Measures: lightweight bedding Isolation Precautions: precautions maintained Problem: Skin Injury Risk Increased Goal: Skin Health and Integrity Outcome: Ongoing, Progressing Intervention: Optimize Skin Protection Flowsheets (Taken 06/02/202542) Activity Management: activity adjusted per tolerance standing at bedside up in chair Pressure Reduction Devices: positioning supports utilized Skin Protection: incontinence pads utilized Head of Bed (HOB) Positioning: HOB at 20-30 degrees Problem: Cardiovascular Surgery Goal: Effective Bowel Elimination Outcome: Ongoing, Progressing Intervention: Enhance Bowel Motility and Elimination Flowsheets (Taken 06/02/202542) Bowel Elimination Management: toileting offered sitting position facilitated Bowel Motility Enhancement: ambulation promoted Goal: Effective Cardiac Function Outcome: Ongoing, Progressing Intervention: Optimize Cardiac Output and Blood Flow Flowsheets (Taken 06/02/202542) Dysrhythmia Management: pacing wires maintained Goal: Optimal Cerebral Tissue Perfusion Outcome: Ongoing, Progressing Intervention: Protect and Optimize Cerebral Perfusion Flowsheets (Taken 06/02/202542) Fever Reduction/Comfort Measures: lightweight bedding Sensory Stimulation Regulation: care clustered Cerebral Perfusion Promotion: blood pressure monitored Head of Bed (HOB) Positioning: HOB at 20-30 degrees Goal: Fluid and Electrolyte Balance Outcome: Ongoing, Progressing Intervention: Monitor and Manage Fluid and Electrolyte Balance Flowsheets (Taken 06/02/202542) Fluid/Electrolyte Management: electrolyte supplement initiated Goal: Acceptable Pain Control Outcome: Ongoing, Progressing Intervention: Prevent or Manage Pain Flowsheets (Taken 06/02/202542) Pain Management Interventions: care clustered pain management plan reviewed with patient/caregiver Diversional Activities: television Goal: Effective Urinary Elimination Outcome: Ongoing, Progressing Intervention: Monitor and Manage Urinary Retention Flowsheets (Taken 06/02/202542) Urinary Elimination Promotion: catheter patency maintained Problem: Fall Injury Risk Goal: Absence of Fall and Fall-Related Injury Outcome: Ongoing, Progressing Intervention: Promote Injury-Free Environment Flowsheets (Taken 06/02/202542) Safety Promotion/Fall Prevention: activity supervised nonskid shoes/slippers when out of bed clutter-free environment maintained Problem: Self-Care Deficit Goal: Improved Ability to Complete Activities of Daily Living Outcome: Ongoing, Progressing Intervention: Promote Activity and Functional [place] Flowsheets (Taken 06/02/202542) Activity Assistance Provided: assistance, stand-by Self-Care Promotion: independence encouraged * Care Plan - Loly Barnes RN - 06/01/2025 5:40 PM EDT Problem: Adult Inpatient Plan of Care Goal: Plan of Care Review Outcome: Ongoing, Progressing Flowsheets (Taken 06/01/2025 0237 by Elena Patrick RN) Progress: improving Outcome Evaluation: Pt agreeable with care plan. 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 Nicholson * Assessment & Plan Note - Yvrose Campbell APRN - 06/01/2025 4:44 PM EDT Associated Problem(s): 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) -will need procedure with vascular surgery * Assessment & Plan Note - Yvrose Campbell APRN - 06/01/2025 4:44 PM EDT Associated Problem(s): Poorly-controlled hypertension -on cleviprex and nitroglycerin post op since weaned - PRN IV meds as needed * Assessment & Plan Note - Yvrose Campbell APRN - 06/01/2025 4:44 PM EDT Associated Problem(s): BMI 25.0-25.9,adult (Deleted) Body mass index is 25.74 kg/m??. -complicates aspects of care * Assessment & Plan Note - Yvrose Campbell APRN - 06/01/2025 4:44 PM EDT Associated Problem(s): Hyperlipidemia - statin * Assessment & Plan Note - Yvrose Campbell APRN - 06/01/2025 4:44 PM EDT Associated Problem(s): COPD (chronic obstructive pulmonary disease) ([facility]) -on mechanically assisted ventilation, expected s/p AAA repair, and root replace - evaluate for extubation- now extubated * Assessment & Plan Note - Yvrose Campbell APRN - 06/01/2025 4:44 PM EDT Associated Problem(s): H/O aortic arch replacement -05/27: Ascending aortic and arch aneurysm repair with ascending aortic replacement using a 28 Hemashield graft and aortic arch replacement using a 32 Hemashield tube graft with deep circulatory arrestusing bilateral antegrade cerebral perfusion and de-branching of the innominate artery and the leftcarotid artery with valve sparing * Assessment & Plan Note - Yvrose Campbell APRN - 06/01/2025 4:44 PM EDT Associated Problem(s): H/O ascending aortic replacement -05/27: Ascending aortic and arch aneurysm repair with ascending aortic replacement using a 28 Hemashield graft and aortic arch replacement using a 32 Hemashield tube graft with deep circulatory arrestusing bilateral antegrade cerebral perfusion and de-branching of the innominate artery and the leftcarotid artery with valve sparing * Assessment & Plan Note - Yvrose Campbell APRN - 06/01/2025 4:44 PM EDT Associated Problem(s): H/O transcarotid artery revascularization (TCAR) -02/2025 * Assessment & Plan Note - Yvrose Campbell APRN - 06/01/2025 4:44 PM EDT Associated Problem(s): Hypokalemia -Monitor per protocol and replaced as indicated * Assessment & Plan Note - Yvrose Campbell APRN - 06/01/2025 4:44 PM EDT Associated Problem(s): Cardiac volume overload (Resolved 06/07/2025) Diurese as indicated * Assessment & Plan Note - Yvrose Campbell APRN - 06/01/2025 4:44 PM EDT Associated Problem(s): Leukocytosis Monitor post op likely reactive * Assessment & Plan Note - Yvrose Campbell APRN - 06/01/2025 4:44 PM EDT Associated Problem(s): Agitation requiring sedation protocol (Resolved 06/02/2025) Precedex re-started 05/31, tolerating well. - Seroquel 75 BID- change to HS 06/01 Pt on Xanax at home * Assessment & Plan Note - Yvrose Campbell APRN - 06/01/2025 4:44 PM EDT Associated Problem(s): Delirium due to multiple etiologies (Resolved 06/07/2025) -Seroquel 75 BID -IV Haldol for PRN agitation. Now improved, pt alert and oriented * Assessment & Plan Note - Yvrose Campbell APRN - 06/01/2025 4:44 PM EDT Associated Problem(s): Left upper extremity swelling (Resolved 06/07/2025) -duplex neg * Assessment & Plan Note - Yvrose Campbell APRN - 06/01/2025 4:44 PM EDT Associated Problem(s): A-fib (CMS/HCC) (Resolved 06/07/2025) -Monitor per protocol. * Progress Notes - Yvrose Campbell APRN - 06/01/2025 4:35 PM EDTAssociated Order(s): Critical Care Post-Procedure Diagnose(s): Hypokalemia; H/O aortic arch replacement; H/O ascending aortic replacement; Cardiac volume overload; 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) Critical Care Performed by: Yvrose Campbell APRN Authorized by: Yvrose Campbell APRN Critical care provider statement: Critical care time (minutes): 40 Critical care was time spent personally by me on the following activities: Ordering and review of radiographic studies, ordering and review of laboratory studies, examination of patient, evaluation of patient's response to treatment and discussions with primary provider Comments: The patient is critically ill with: pt is s/p ascending and arch replacement , feeding difficulty ,constipation requiring close monitoring and evaluation of overall volume status . They require complex decision making. The patient was seen on rounds with critical care physician, Dr. Roberts and they are in agreement with the plan of care. Pharmacy, respiratory and nursing services were present on rounds. 06/01/25 Joi Marcial HPI Joi Marcial is a 70 y.o. 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 If applicable, patient is s/p Procedure(s) and Anesthesia Type: * Ascending Aortic Replacement, Hemiarch, Circulatory Arrest, Aortic Arch Debranching - General. Patient is 5 Days Post-Op with Cardiothoracic Surgery. Past 24 hours: PM: LR bolus for low UOP, improvement. Obtain second PIV, d/c MAC. AM: Continue diureses with 20 PO lasix.No BM since 05/27, declined suppository overnight. Milk of Magtoday. Continue ambulating. D/c morning Seroquel and dec HS dose to 50. Start DVT prophylaxis. Increased metoprolol. RFP 1600. Edited by: Yvrose Campbell, [employer] PP CONSULTANT at 06/01/2025 1642 Lines/Drains/Tubes: Patient Lines/Drains/Airways Status Active Active LDAs Name Placement date Placement time Site Days Peripheral IV 05/27/25 Right Antecubital 05/27/25 0655 Antecubital 5 Peripheral IV 06/01/25 Anterior;Right Forearm 06/01/25 0504 Forearm less than 1 Chest Tube 3 Right Pleural 32 Fr 05/27/25 1702 Pleural 4 Urethral Catheter Non-latex;Temperature probe 16 Fr. 05/27/25 0725 -- 5 Y Chest Tube 1 and 2 Anterior Mediastinal 32 Fr. Anterior Mediastinal 32 Fr. 05/27/25 1700 -- 4 Feeding Tube Gastric 10 Fr. Right nare 05/29/25 1215 Right nare 3 Negative Pressure Wound Therapy Sternum 05/27/25 1749 Sternum 4 GCS: Kip Coma Scale Score: 15 Review of Systems Constitutional: Negative. HENT: Negative. Eyes: Negative. Respiratory: Negative for shortness of breath. Cardiovascular: Negative. Gastrointestinal: Negative for nausea. Endocrine: Negative. Genitourinary: Negative. Musculoskeletal: Negative. Skin: Negative. Neurological: Negative. Psychiatric/Behavioral: Negative. Vital signs: Vitals: 06/01/25 1633 BP: Pulse: 87 Resp: 18 Temp: SpO2: 99% Intake/Output Summary (Last 24 hours) at 06/01/2025 1643 Last data filed at 06/01/2025 1000 Gross per 24 hour Intake 1289.58 ml Output 1035 ml Net 254.58 ml Physical Exam Constitutional: Comments: Oob in chair HENT: Head: Normocephalic. Nose: Nose normal. Mouth/Throat: Mouth: Mucous membranes are dry. Eyes: Pupils: Pupils are equal, round, and reactive to light. Cardiovascular: Rate and Rhythm: Normal rate and regular rhythm. Pulmonary: Effort: Pulmonary effort is normal. Breath sounds: Normal breath sounds. Abdominal: General: Bowel sounds are normal. Palpations: Abdomen is soft. Musculoskeletal: Cervical back: Neck supple. Right lower leg: No edema. Left lower leg: No edema. Skin: General: Skin is dry. Capillary Refill: Capillary refill takes less than 2 seconds. Neurological: Mental Status: She is oriented to person, place, and time. Comments: Oriented/ appropriate however some slowness in back and forth conversation Psychiatric: Behavior: Behavior normal. Results Review I have reviewed the latest lab and imaging results. Assessment and Plan: This patient is critically ill. 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) Present on Admission: Yes -will need procedure with vascular surgery Poorly-controlled hypertension Present on Admission: Yes -on cleviprex and nitroglycerin post op since weaned - PRN IV meds as needed BMI 25.0-25.9,adult Present on Admission: Not Applicable Body mass index is 25.74 kg/m??. -complicates aspects of care Hyperlipidemia Present on Admission: Yes - statin COPD (chronic obstructive pulmonary disease) (CMS/HCC) Present on Admission: Yes -on mechanically assisted ventilation, expected s/p AAA repair, and root replace - evaluate for extubation- now extubated H/O aortic arch replacement Present on Admission: Not Applicable -05/27: Ascending aortic and arch aneurysm repair with ascending aortic replacement using a 28 Hemashield graft and aortic arch replacement using a 32 Hemashield tube graft with deep circulatory arrestusing bilateral antegrade cerebral perfusion and de-branching of the innominate artery and the leftcarotid artery with valve sparing H/O ascending aortic replacement Present on Admission: Not Applicable -05/27: Ascending aortic and arch aneurysm repair with ascending aortic replacement using a 28 Hemashield graft and aortic arch replacement using a 32 Hemashield tube graft with deep circulatory arrestusing bilateral antegrade cerebral perfusion and de-branching of the innominate artery and the leftcarotid artery with valve sparing H/O transcarotid artery revascularization (TCAR) Present on Admission: Not Applicable -02/2025 Hypokalemia Present on Admission: No -Monitor per protocol and replaced as indicated Cardiac volume overload Present on Admission: No Diurese as indicated Leukocytosis Present on Admission: No Monitor post op likely reactive Agitation requiring sedation protocol Present on Admission: No Precedex re-started 05/31, tolerating well. - Seroquel 75 BID- change to HS 06/01 Pt on Xanax at home Delirium due to multiple etiologies Present on Admission: No -Seroquel 75 BID -IV Haldol for PRN agitation. Now improved, pt alert and oriented Left upper extremity swelling Present on Admission: Yes -duplex neg A-fib (CMS/HCC) Present on Admission: Unknown -Monitor per protocol. Non-Hospital Problems Peripheral vascular disease (CMS/HCC) (Chronic) Asymptomatic stenosis of right carotid artery Yvrose Campbell APRN * Progress Notes - Sarah Schroeder - 06/01/2025 10:37 AM EDT Physical Therapy Evaluation Patient Name: Joi Marcial Today's Date: 06/01/2025 PT Discharge Recommendations: Home with assistance, Pending progress Equipment Recommended: Patient owns appropriate equipment Total Treatment Time: 38 minutes History Joi Marcial is 70 y.o. 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 Problem List Active Hospital Problems Diagnosis Date Noted A-fib ([facility]) 05/31/2025 Left upper extremity swelling 05/30/2025 Delirium due to multiple etiologies 05/29/2025 H/O aortic arch replacement 05/28/2025 H/O ascending aortic replacement 05/28/2025 H/O transcarotid artery revascularization (TCAR) 05/28/2025 Hypokalemia 05/28/2025 Cardiac volume overload 05/28/2025 Leukocytosis 05/28/2025 Agitation requiring sedation protocol 05/28/2025 Hyperlipidemia 05/27/2025 COPD (chronic obstructive pulmonary disease) ([facility]) 05/27/2025 BMI 25.0-25.9,adult 02/26/2025 Poorly-controlled hypertension 01/30/2025 Aneurysm of descending thoracic aorta without rupture ([facility]) 01/30/2025 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 [place] 12/26/2024 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 Past Surgical History Patient has a past surgical history that includes Cholecystectomy (1971); Hysterectomy; Back surgery; Foot surgery; Total hip arthroplasty (Left); and Ascending aortic aneurysm repair (05/27/2025). Precautions Medical Precautions: Sternal Subjective Pt agreeable to PT session. Participants in Care Family/Caregiver Present: No Presentation Oxygen Therapy: Supplemental oxygen O2 Delivery Method: Nasal cannula O2 Flow Rate (L/min): 2 L/min Lines and Tubes: Telemetry Pacer Wires (Active) Chest Tube 3 Right Pleural 32 Fr (Active) Urethral Catheter Non-latex;Temperature probe 16 Fr. (Active) Y Chest Tube 1 and 2 Anterior Mediastinal 32 Fr. Anterior Mediastinal 32 Fr. (Active) Feeding Tube Gastric 10 Fr. Right nare (Active) Negative Pressure Wound Therapy Sternum (Active) Peripheral IV 05/27/25 Right Antecubital (Active) Peripheral IV 06/01/25 Anterior;Right Forearm (Active) Pre-Session: Supine, Head of bed elevated, Lines intact Post-Session: Sitting in chair, RN notified, Lines intact, Call light in reach Post-Session Comments: RN ok without chair alarm Home Living/Set-up Lives With: Alone Home Type: House Home Adaptive Equipment: Rolling walker, Rollator, Cane Home Layout: Stairs to enter with rails, One level Number of Stairs: 5 Bathroom: Tub/Shower: (Walk-in bath tub) Home Living Comments: Pt reports owning equipment due to hip replacement in 2022. Pt's daughter canassist as needed upon discharge. Prior Level of Function Receives Help From: No assist required prior to admission Level of Mobility: Ambulatory- community Mobility [place]: Independent gait without device History of Falls: No ADL Performance: Independent Patient/Family Goals To feel better and go home Objective Pain Pt reported pain at incisional site but did not rate. Pt positioned for comfort at end of session. Delirium Screening RASS: Alert and calm Confusion Assessment Method-ICU (CAM-ICU/PCAM-ICU) Feature 1: Acute Onset or Fluctuating Course: Positive Feature 2: Inattention: Negative Feature 3: Altered Level of Consciousness: Negative Feature 4: Disorganized Thinking: Positive Overall CAM-ICU/PCAM-ICU: Negative Cognition Overall Cognitive Status: Impaired Arousal/Alertness: Delayed responses to stimuli Mood/Behavior: Alert, Distractible Orientation Level: Oriented X4 Single Step Commands: Consistently Multi-Step Commands: Consistently Method of Communication: Verbal Right Upper Extremity Examination RUE Assessment: Within Functional Limits Manual Muscle Testing - RUE: (N/T secondary to sternal precautions) Sensation Light Touch: Right Upper Extremity: Intact Left Upper Extremity Examination LUE ROM Assessment LUE Assessment: Within Functional Limits Manual Muscle Testing - LUE Manual Muscle Testing - LUE: (not formally assessed 2/2 sternal precautions) Sensation Light Touch: Left Upper Extremity: Intact Right Lower Extremity Examination RLE ROM Assessment RLE Assessment: Within Functional Limits Manual Muscle Testing - RLE Manual Muscle Testing - RLE: Within functional limits Sensation Light Touch: Right Lower Extremity: Intact Left Lower Extremity Examination LLE Assessment: Within Functional Limits Manual Muscle Testing: Within functional limits Sensation Light Touch: Left Lower Extremity: Intact Bed Mobility Bed Mobility Exam: Supine to Sit Level of [place]: Moderate assist (50% patient's effort) Physical/Nonphysical Assist: Verbal Cues, Maximal cues, Additional assist utilized for safety, HOB elevated Transfers Transfer Exam: Sit to stand Level of [place]: Contact guard Physical/Nonphysical Assist: Verbal Cues, Moderate cues Assistive Device: Rollator Transfer Exam: Stand to Sit Level of [place]: Minimum assist (75% patient's effort) Physical/Nonphysical Assist: Moderate cues, Verbal Cues Assistive Device: Rollator Transfer Exam: Bed to Chair/Chair to Bed Level of [place]: Minimum assist (75% patient's effort) Physical/Nonphysical Assist: Verbal Cues, Moderate cues Assistive Device: Rollator Balance Postural Appearance Posture: Stooped posture, Rounded shoulders Static Sitting Balance Static Sitting-Balance Support: Feet supported Static Sitting-Level of Assistance: Contact guard Dynamic Sitting Balance Dynamic Sitting-Balance Support: Feet supported Level of Assistance: Contact guard Static Standing Balance Static Standing-Balance Support: Right upper extremity support, Left upper extremity support Static Standing-Level of Assistance: Contact guard Dynamic Standing Balance Dynamic Standing-Balance Support: Right upper extremity support, Left upper extremity support Dynamic Standing Level of Assistance: Minimum assistance Therapeutic Activity (10 minutes) Pt participated in therapeutic activities including bed mobility, edge of bed sitting, and functional transfers, to improve strength, balance, endurance and independence with functional mobility. Verbal and tactile cues provided by therapist for log roll technique to maintain sternal precautions and improve safety and efficiency with bed mobility. Increased time required at edge of bed to allow pt to acclimate to upright. Pt completed sit to stand transfers with cues for hand placement and AD management. Pt maintained vital signs WNL during mobility tasks. Gait Training (13 minutes) Device: Rollator Assistance: Minimum assistance, Moderate verbal cues, Moderate tactile cues, Additional assist for line management, Additional assist utilized for safety Distance: 250' Gait Analysis: Mild forward flexed posture, variable foot placement, increased distance from rollator, difficulty staying in middle of walker Gait Training Interventions: Verbal/tactile cues provided to maintain proximity to rollator, to stay in middle of walker especially during turns, for upright posture, and pacing. Standardized Assessments Standardized Assessments Standardized Assessments: [facility] 6-Clicks Mobility Assessment [facility] 6-Clicks Mobility Assessment Difficulty patient has turning over in bed (including adjusting bedclothes, sheets, and blankets)?:None Difficulty patient has sitting down on and standing up from a chair with arms (wheelchair, bedside commode, etc.)?: A little Difficulty patient has moving from lying on back to sitting on the side of the bed?: A lot How much help does the patient need moving to and from a bed to a chair (including a wheelchair)?: A little How much help does the patient need to walk in hospital room?: A little How much help does the patient need climbing 3-5 steps with a railing?: A lot [facility] 6-Clicks Mobility Assessment Total : 17 No data recorded Assessment In addition to PT initial assessment, pt participated in gait training and therapeutic activities. Pt tolerated PT interventions with no adverse effects and maintained vital signs WNL. Pt presents with impairments listed below and would benefit from continued skilled PT intervention to progress functional mobility and return to prior level of function. Pt discharge recs are home with assist pending further functional progress. Impairments: Decreased endurance, ventilation, and/or gas exchange, Impaired gait dynamics/performance, Impaired functional mobility/transfers, Impaired balance, Impaired motor cordination/control, Pain, Decreased strength Activity Limitations: Inability to ambulate independently, Inability to transfer independently, Inability to ambulate community distances, Inability to complete ADLs independently Participation Restrictions: Self-care, Home management, Community leisure Activity Tolerance: Tolerates 30 min activity with multiple rests Evaluation/Treatment Tolerance: Patient limited by fatigue, Patient limited by pain Diagnosis: impaired functional mobility and activity tolerance Rehab Potential: Good, to achieve stated therapy goals Eval Complexity History Profile: 1 - 2 personal factors and/or comorbidities Clinical Presentation: Evolving clinical presentation with changing characteristics Clinical Decision Making: Moderate complexity PT Recommendations Discharge Destination: Home with assistance, Pending progress Discharge Equipment: Patient owns appropriate equipment Plan Planned PT Interventions Balance training, Bed mobility training, Gait training, Transfer training, Strengthening, Functional Mobility, Caregiver training PT Frequency 2 - 5 times per week PT Duration 2 weeks Goals PT GOAL DETAILS Time Frame PT Goal 1: Pt will perform supine <> sit SBA x1 and maintain precautions 2 weeks PT Goal 2: Pt will perform sit to stand and bed to chair transfers SBA x1 with LRAD 2 weeks PT Goal 3: Pt will ambulate 600' SBA x1 with LRAD, no losses of balance, or rest breaks 2 weeks PT Goal 4: Pt will navigate 5 stairs with SBA x1 and no losses of balance 2 weeks Written by Sarah Schroeder on 06/01/25 at 1:45 PM. * Progress Notes - Rachel Alston - 06/01/2025 10:36 AM EDT Occupational Therapy Evaluation Patient Name: Joi Marcial Today's Date: 06/01/2025 Total Treatment Time: 38 minutes OT Discharge Recommendations: Home with assistance, Pending progress Equipment Recommended: Patient owns appropriate equipment History Joi Marcial is 70 y.o. 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 Problem List Active Hospital Problems Diagnosis Date Noted A-fib ([facility]) 05/31/2025 Left upper extremity swelling 05/30/2025 Delirium due to multiple etiologies 05/29/2025 H/O aortic arch replacement 05/28/2025 H/O ascending aortic replacement 05/28/2025 H/O transcarotid artery revascularization (TCAR) 05/28/2025 Hypokalemia 05/28/2025 Cardiac volume overload 05/28/2025 Leukocytosis 05/28/2025 Agitation requiring sedation protocol 05/28/2025 Hyperlipidemia 05/27/2025 COPD (chronic obstructive pulmonary disease) ([facility]) 05/27/2025 BMI 25.0-25.9,adult 02/26/2025 Poorly-controlled hypertension 01/30/2025 Aneurysm of descending thoracic aorta without rupture ([facility]) 01/30/2025 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 Past Surgical History Patient has a past surgical history that includes Cholecystectomy (1971); Hysterectomy; Back surgery; Foot surgery; Total hip arthroplasty (Left); and Ascending aortic aneurysm repair (05/27/2025). Precautions Medical Precautions: Sternal Subjective I feel okay. Participants in Care Family/Caregiver Present: No Presentation Oxygen Therapy: Supplemental oxygen O2 Delivery Method: Nasal cannula O2 Flow Rate (L/min): 2 L/min Lines and Tubes: Telemetry Pacer Wires (Active) Chest Tube 3 Right Pleural 32 Fr (Active) Urethral Catheter Non-latex;Temperature probe 16 Fr. (Active) Y Chest Tube 1 and 2 Anterior Mediastinal 32 Fr. Anterior Mediastinal 32 Fr. (Active) Feeding Tube Gastric 10 Fr. Right nare (Active) Negative Pressure Wound Therapy Sternum (Active) Peripheral IV 05/27/25 Right Antecubital (Active) Peripheral IV 06/01/25 Anterior;Right Forearm (Active) Pre-Session: Supine, Head of bed elevated, Lines intact Post-Session: Sitting in chair, RN notified, Lines intact, Call light in reach Post-Session Comments: RN ok without chair alarm Home Living/Set-up Lives With: Alone Home Type: House Home Adaptive Equipment: Rolling walker, Rollator, Cane Home Layout: Stairs to enter with rails, One level Number of Stairs: 5 Bathroom: Tub/Shower: (Walk-in bath tub) Home Living Comments: Pt reports owning equipment due to hip replacement in 2022. Pt's daughter canassist as needed upon discharge. Prior Level of Function Receives Help From: No assist required prior to admission Level of Mobility: Ambulatory- community Mobility [place]: Independent gait without device History of Falls: No ADL Performance: Independent Patient/Family Goals Statement To get better and go home. Objective Pain Pt reporting sternal pain: unrated Pillow support provided at end of session and RN aware. Delirium Screening RASS: Alert and calm Confusion Assessment Method-ICU (CAM-ICU/PCAM-ICU) Feature 1: Acute Onset or Fluctuating Course: Positive Feature 2: Inattention: Negative Feature 3: Altered Level of Consciousness: Negative Feature 4: Disorganized Thinking: Positive Overall CAM-ICU/PCAM-ICU: Negative Cognition Overall Cognitive Status: Impaired Arousal/Alertness: Delayed responses to stimuli Mood/Behavior: Alert, Distractible Orientation Level: Oriented X4 Single Step Commands: Consistently Multi-Step Commands: Consistently Method of Communication: Verbal Cognition Interventions: Mildly delayed processing, difficulty correcting errors with DME. Right Upper Extremity Examination RUE ROM Assessment RUE Assessment: Within Functional Limits Manual Muscle Testing - RUE: (N/T secondary to sternal precautions) Sensation Light Touch: Right Upper Extremity: Intact Left Upper Extremity Examination LUE ROM Assessment LUE Assessment: Within Functional Limits Manual Muscle Testing - LUE: (not formally assessed 2/2 sternal precautions) Sensation Light Touch: Left Upper Extremity: Intact Right Lower Extremity Examination RLE ROM Assessment RLE Assessment: Within Functional Limits Manual Muscle Testing - RLE: Within functional limits Sensation Light Touch: Right Lower Extremity: Intact Left Lower Extremity Examination LLE ROM Assessment LLE Assessment: Within Functional Limits Manual Muscle Testing: Within functional limits Sensation Light Touch: Left Lower Extremity: Intact Bed Mobility Bed Mobility Exam: Supine to Sit Level of [place]: Moderate assist (50% patient's effort) Physical/Nonphysical Assist: Verbal Cues, Maximal cues, Additional assist utilized for safety, HOB elevated Transfers Transfer Exam: Sit to stand Level of [place]: Contact guard Physical/Nonphysical Assist: Verbal Cues, Moderate cues Assistive Device: Rollator Transfer Exam: Stand to Sit Level of [place]: Minimum assist (75% patient's effort) Physical/Nonphysical Assist: Moderate cues, Verbal Cues Assistive Device: Rollator Transfer Exam: Bed to Chair/Chair to Bed Level of [place]: Minimum assist (75% patient's effort) Physical/Nonphysical Assist: Verbal Cues, Moderate cues Assistive Device: Rollator Balance Postural Appearance Posture: Stooped posture, Rounded shoulders Static Sitting Balance Static Sitting-Balance Support: Feet supported Static Sitting-Level of Assistance: Contact guard Dynamic Sitting Balance Dynamic Sitting-Balance Support: Feet supported Level of Assistance: Contact guard Static Standing Balance Static Standing-Balance Support: Right upper extremity support, Left upper extremity support Static Standing-Level of Assistance: Contact guard Dynamic Standing Balance Dynamic Standing-Balance Support: Right upper extremity support, Left upper extremity support Dynamic Standing Level of Assistance: Minimum assistance Self-Care Interventions Self Care/Home Management (ADLs) Time Entry: 23 Self-Care Interventions: Pt educated on sternal precautions prior to mobility and importance of carryover. Pt verbalized understanding but demonstrated fair(- ) carryover. Pt. participated in functional endurance tasks in preparation for high level ADL routines. Pt required max cues and mod A to sequence log roll and transition to edge of bed. Pt. completed 250ft navigation task at hallway level to simulate ADL's in home environment with CGA-min A and rollator. Pt. with poor insight into balancedeficits noted, requiring consistent cues to utilize rollator correctly. Pt with a tendency to walkoutside base of support of walker and push too far forward when mobilizing. Pt also required several short standing rest breaks to walk this date, due to fatigue. Cues also provided throughout session to promote upright posture, activity pacing, and pursed lip breathing with improved carryover noted with session progression. OT monitored vital signs closely throughout session to assess for patient???s tolerance to treatment, which were stable throughout. Additional time spent educating patient/family on ADLs with sternal precautions and potential needs for AE/DME at discharge. Pt educated on role of OT, discharge recommendations, and expectations for mobility while inpatient. Pt verbalized understanding but would benefit from continued education to improve carryover. Standardized Assessments [facility] 6-Click Daily Activities Help from Other: Don/Doff Regular Lower Body Clothings: A lot Help From Other: Bathing: A lot Help From Other: Toileting: A lot Help From Other: Don/Doff Upper Body Clothings: Little Help From Other: Grooming: Little Help From Other: Eating Meals: None [facility] 6 Click - Daily Activities Score: 16 Assessment In addition to OT evaluation, pt participated in OT session with a focus on ADL retraining and functional endurance. Pt tolerated session with fair energy for task. Pt is most limited by endurance and pain. Pt would benefit from continued skilled OT services to address AE/DME training, activity tolerance, and overall muscle power needed for increased independence with ADLs and functional mobility. OT Findings: Impaired ADL performance, Impaired IADL performance, Decreased endurance/ventilation/gas exchange, Impaired functional mobility, Impaired balance Evaluation/Treatment Tolerance: Patient limited by fatigue (Mild confusion) Rehab Potential: Good, to achieve stated therapy goals Eval Complexity Occupational Profile: Expanded review of medical/therapy records and additional review of physical,cognitive, or psychosocial history Performance Deficits: Activities of daily living (ADLs), Instrumental activities of daily living (IADLs), Body functions, Body structures, Process skills, Physical Clinical Decision Making: Moderate Overall Eval complexity: Moderate OT Recommendations Discharge Destination: Home with assistance, Pending progress Discharge Equipment: Patient owns appropriate equipment Plan Planned OT Interventions IADL retraining, ADL retraining, Balance training, Bed mobility Training, Transfer training, Functional mobility, Caregiver education OT Frequency 2 - 5 times per week OT Duration 2 weeks Goals OT GOAL DETAILS Time Frame OT Goal 1: Pt will complete total body dressing skills with modified independence and appropriate adaptive device. 2 weeks OT Goal 2: Pt will complete toileting skills with modified independence and appropriate adaptive device. 2 weeks OT Goal 3: Pt will complete functional transfers with modified independence and appropriate adaptive device to increase independence with toilet transfers. 2 weeks OT Goal 4: Pt will independently adhere to sternal precautions during all ADL tasks and functional transfers. 2 weeks Written by Rachel Alston on 06/01/25 at 1:48 PM. * Progress Notes - Marques Pal MD - 06/01/2025 10:04 AM EDT Images from the original note were not included. CARDIOTHORACIC SURGERY PROGRESS NOTE SUBJECTIVE Acute Events/Last 24 Hrs: OOBTC, sinus in 80s, maps 70s, failed bedside swallow, had 2.2L UOP and 570 from tubes. Plt up to 122. OBJECTIVE All laboratory data, images, tracings, and vital sign data for past 24 hours are personally reviewed unless otherwise noted. Physical Exam VITALS (last 24h) 06/01/2025 3:52 AM 06/01/2025 4:00 AM 06/01/2025 5:00 AM 06/01/2025 6:00 AM 06/01/2025 7:00 AM 06/01/2025 8:39 AM 06/01/2025 8:42 AM Vitals Systolic 116 114 102 108 113 Diastolic 58 55 54 54 55 Heart Rate 77 75 81 92 89 91 96 Temp 37.4 C 37.4 C 37.6 C 37.6 C Resp 19 23 27 27 23 Weight (kg) 72.3 kg BMI 25.74 kg/m2 BSA (m2) 1.83 m2 O2 Delivery Method: Nasal cannula GENERAL: No acute distress, resting comfortably EYES: extraoccular eye movement grossly intact, pupils equal and reactive, anicteric NECK: no JVD, no thyromegaly RESP/CHEST: Symmetric expansion; non labored. CTA bilaterally. CARD: RRR, warm, 2+PP EXTREMITIES: No lower extremity edema present. GI: Soft, Nontender, nondistended. NEURO: AAOx4. No focal deficits PSYCH: Mood and affect congruent and appropriate to situation. INCISIONS: Sternum - Wound Vac in place Intake/Output Intake/Output Summary (Last 24 hours) at 06/01/2025 1004 Last data filed at 06/01/2025 0600 Gross per 24 hour Intake 1491.66 ml Output 1775 ml Net -283.34 ml Results Labs in last 18 hours CBC WBC 9.07 Hb 9.7 (L) Plt 122 (L) Hct 29.6 (L) ANC ?? INR ??, PTT ??, Anti-Xa ?? BMP Na 145 Cl 110 (H) BUN 23 Glu 122 (H) K 3.7 Co2 25 Cr 0.53 (L) Ca 8.5 (L) iCa ?? Mg 3.9 (H), Phos 2.1 (L) Lactate ?? LFT AST ?? AlkPhos ?? T Prot ?? ALK ?? Bili ?? Alb ?? D.Bili ?? Imaging No echocardiogram results found for the past 14 days No valid procedures specified. XR Abdomen 1 View Result Date: 06/01/2025 Nonobstructive bowel gas pattern. No pneumoperitoneum. CRITICAL RESULT: No. COMMUNICATION: Per thiswritten report. 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 Nicholson. (5 Days Post-Op) - Aspirin, statin, increase metop to 37.5 bid - 40mg PO Lasix - Continue chest tubes and pacing wires - HISTOLOGY TECHNICIAN on consult: cont TF, MBS tomorrow, ok for swabs - start DVT ppx - hold home plavix for carotid TCAR in 02/2025 - Incisional wound vac until POD 5 - Mobilize, PT/OT - Continue ICU care Cardiothoracic Surgery 09/14/25 10:04 AM Cosigned by Jose C Nicholson MD at 06/02/2025 5:04 PM EDT Associated attestation - Jose C Nicholson MD - 06/02/2025 5:04 PM EDT I saw and evaluated the patient with the resident/fellow. I discussed the case with the resident/fellow and agree with the findings and plan as documented. * Care Plan - Elena Patrick RN - 06/01/2025 2:40 AM EDT Problem: Adult Inpatient Plan of Care Goal: Plan of Care Review 06/01/2025236 by Elena Patrick RN Outcome: Ongoing, Progressing Flowsheets (Taken 06/01/2025236) Progress: improving Outcome Evaluation: Pt agreeable with care plan. Plan of Care Reviewed With: patient 06/01/2025236 by Elena Patrick RN Reactivated Goal: Patient-Specific Goal (Individualized) 06/01/2025236 by Elena Patrick RN Outcome: Ongoing, Progressing Flowsheets (Taken 05/31/20251999) Patient/Family-Specific Goals (Include Timeframe): Pt will maintain a MAP >65 throughout this shift. Individualized Care Needs: Hemodynamic stability Anxieties, Fears or Concerns: None stated 06/01/2025236 by Elena Patrick RN Reactivated Goal: Absence of Hospital-Acquired Illness or Injury Outcome: Ongoing, Progressing Intervention: Identify and Manage Fall Risk Flowsheets (Taken 05/31/20251999) Safety Promotion/Fall Prevention: activity supervised assistive device/personal items within reach clutter-free environment maintained fall prevention program maintained lighting adjusted mobility aid in reach nonskid shoes/slippers when out of bed room organization consistent safety round/check completed toileting scheduled Intervention: Prevent Skin Injury Flowsheets Taken 06/01/2025 0237 Skin Protection: incontinence pads utilized transparent dressing maintained Taken 06/01/2025 0200 Body Position: right turned Intervention: Prevent and Manage VTE (Venous Thromboembolism) Risk Flowsheets (Taken 06/01/2025 0000) VTE Prevention/Management: bilateral lower extremity SCDs (sequential compression devices) on Intervention: Prevent Infection Flowsheets (Taken 06/01/2025 0237) Infection Prevention: cohorting utilized environmental surveillance performed equipment surfaces disinfected hand hygiene promoted personal protective equipment utilized rest/sleep promoted single patient room provided Goal: Optimal Comfort and Wellbeing Outcome: Ongoing, Progressing Intervention: Monitor Pain and Promote Comfort Flowsheets (Taken 06/01/2025 0203) Pain Management Interventions: medication (see MAR) Intervention: Provide Person-Centered Care Flowsheets (Taken 06/01/2025236) Trust Relationship/Rapport: care explained choices provided Problem: Infection Goal: Absence of Infection Signs and Symptoms Outcome: Ongoing, Progressing Intervention: Prevent or Manage Infection Flowsheets Taken 06/01/2025236 Infection Management: aseptic technique maintained Fever Reduction/Comfort Measures: lightweight bedding lightweight clothing Taken 05/31/20251999 Isolation Precautions: precautions maintained protective Problem: Skin Injury Risk Increased Goal: Skin Health and Integrity Outcome: Ongoing, Progressing Intervention: Optimize Skin Protection Flowsheets Taken 06/01/2025236 Pressure Reduction Techniques: frequent weight shift encouraged heels elevated off bed Pressure Reduction Devices: positioning supports utilized specialty bed utilized Skin Protection: incontinence pads utilized transparent dressing maintained Taken 06/01/2025 0200 Activity Management: dorsiflexion/plantar flexion performed Head of Bed (HOB) Positioning: HOB elevated Intervention: Promote and Optimize Oral Intake Flowsheets (Taken 06/01/2025236) Nutrition Interventions: diet adjusted Problem: Cardiovascular Surgery Goal: Effective Bowel Elimination Outcome: Ongoing, Progressing Intervention: Enhance Bowel Motility and Elimination Flowsheets (Taken 06/01/2025236) Bowel Elimination Management: hygiene measures promoted toileting offered Bowel Motility Enhancement: other (see comments) Note: Bowel regimen administered Goal: Effective Cardiac Function Outcome: Ongoing, Progressing Intervention: Optimize Cardiac Output and Blood Flow Flowsheets (Taken 06/01/2025236) Stabilization Measures: airway opened Dysrhythmia Management: pacing wires maintained Goal: Optimal Cerebral Tissue Perfusion Outcome: Ongoing, Progressing Intervention: Protect and Optimize Cerebral Perfusion Flowsheets Taken 06/01/2025236 Glycemic Management: blood glucose monitored Fever Reduction/Comfort Measures: lightweight bedding lightweight clothing Sensory Stimulation Regulation: care clustered lighting decreased Cerebral Perfusion Promotion: blood pressure monitored Taken 06/01/2025199 Head of Bed (HOB) Positioning: HOB elevated Goal: Fluid and Electrolyte Balance Outcome: Ongoing, Progressing Intervention: Monitor and Manage Fluid and Electrolyte Balance Flowsheets (Taken 06/01/2025236) Fluid/Electrolyte Management: electrolyte supplement initiated Goal: Acceptable Pain Control Outcome: Ongoing, Progressing Intervention: Prevent or Manage Pain Flowsheets Taken 06/01/2025236 Diversional Activities: television Taken 06/01/2025202 Pain Management Interventions: medication (see MAR) Goal: Effective Urinary Elimination Outcome: Ongoing, Progressing Intervention: Monitor and Manage Urinary Retention Flowsheets (Taken 06/01/2025236) Urinary Elimination Promotion: catheter patency maintained Problem: Fall Injury Risk Goal: Absence of Fall and Fall-Related Injury Outcome: Ongoing, Progressing Intervention: Identify and Manage Contributors Flowsheets (Taken 06/01/2025236) Medication Review/Management: medications reviewed Self-Care Promotion: independence encouraged Intervention: Promote Injury-Free Environment Flowsheets (Taken 05/31/20251999) Safety Promotion/Fall Prevention: activity supervised assistive device/personal items within reach clutter-free environment maintained fall prevention program maintained lighting adjusted mobility aid in reach nonskid shoes/slippers when out of bed room organization consistent safety round/check completed toileting scheduled * Assessment & Plan Note - Yvrose Campbell APRN - 05/31/2025 4:35 PM EDT Associated Problem(s): 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 -complicates aspects of care * Assessment & Plan Note - Yvrose Campbell APRN - 05/31/2025 4:35 PM EDT Associated Problem(s): Hyperlipidemia - statin * Assessment & Plan Note - Yvrose Campbell APRN - 05/31/2025 4:35 PM EDT Associated Problem(s): COPD (chronic obstructive pulmonary disease) ([facility]) -on mechanically assisted ventilation, expected s/p AAA repair, and root replace - evaluate for extubation- now extubated * Assessment & Plan Note - Yvrose Campbell APRN - 05/31/2025 4:35 PM EDT Associated Problem(s): H/O aortic arch replacement -05/27: Ascending aortic and arch aneurysm repair with ascending aortic replacement using a 28 Hemashield graft and aortic arch replacement using a 32 Hemashield tube graft with deep circulatory arrestusing bilateral antegrade cerebral perfusion and de-branching of the innominate artery and the leftcarotid artery with valve sparing * Assessment & Plan Note - Yvrose Campbell APRN - 05/31/2025 4:35 PM EDT Associated Problem(s): H/O ascending aortic replacement -05/27: Ascending aortic and arch aneurysm repair with ascending aortic replacement using a 28 Hemashield graft and aortic arch replacement using a 32 Hemashield tube graft with deep circulatory arrestusing bilateral antegrade cerebral perfusion and de-branching of the innominate artery and the leftcarotid artery with valve sparing * Assessment & Plan Note - Yvrose Campbell APRN - 05/31/2025 4:35 PM EDT Associated Problem(s): H/O transcarotid artery revascularization (TCAR) -02/2025 * Assessment & Plan Note - Yvrose Campbell APRN - 05/31/2025 4:35 PM EDT Associated Problem(s): Hypokalemia -Monitor per protocol and replaced as indicated * Assessment & Plan Note - Yvrose Campbell APRN - 05/31/2025 4:35 PM EDT Associated Problem(s): Cardiac volume overload (Resolved 06/07/2025) Diurese as indicated * Assessment & Plan Note - Yvrose Campbell APRN - 05/31/2025 4:35 PM EDT Associated Problem(s): Leukocytosis Monitor post op likely reactive * Assessment & Plan Note - Yvrose Campbell APRN - 05/31/2025 4:35 PM EDT Associated Problem(s): Agitation requiring sedation protocol (Resolved 06/02/2025) Precedex re-started 05/31, tolerating well. - Seroquel 75 BID Pt on Xanax at home * Assessment & Plan Note - Yvrose Campbell APRN - 05/31/2025 4:35 PM EDT Associated Problem(s): Delirium due to multiple etiologies (Resolved 06/07/2025) -Seroquel 75 BID -IV Haldol for PRN agitation. Now improved, pt alert and oriented * Assessment & Plan Note - Yvrose Campbell APRN - 05/31/2025 4:35 PM EDT Associated Problem(s): Left upper extremity swelling (Resolved 06/07/2025) -duplex pending * Assessment & Plan Note - Yvrose Campbell APRN - 05/31/2025 4:35 PM EDT Associated Problem(s): A-fib (CMS/HCC) (Resolved 06/07/2025) -Monitor per protocol. 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) Critical Care Performed by: Yvrose Campbell APRN Authorized by: Yvrose Campbell APRN Critical care provider statement: Critical care time (minutes): 45 Critical care was time spent personally by me on the following activities: Ordering and review of laboratory studies, ordering and review of radiographic studies, ordering and performing treatments and interventions, examination of patient and evaluation of patient's response to treatment Comments: The patient is critically ill with: s/p ascending aorta/arch replacement, issues with tachycardia/afib and need for evaluation, close observation of volume status, feeding difficulties. They require complex decision making. The patient was seen on rounds with critical care physician, Dr. Roberts and they are in agreement with the plan of care. Pharmacy, respiratory and nursing services were present on rounds. 05/31/25 Joi Marcial is a 70 y.o. 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 If applicable, patient is s/p Procedure(s) and Anesthesia Type: * Ascending Aortic Replacement, Hemiarch, Circulatory Arrest, Aortic Arch Debranching - General. Patient is 4 Days Post-Op with Cardiothoracic Surgery. Past 24 hours: PM: NAEO. D/c precedex gtt in AM. Start metoprolol 12.5. AM: Increase metop to 25 BID. If stays in afib, will start amio. Continue 20 of Lasix. Add Miralax for no BM. Give suppository. Speech plans MBS Edited by: Yvrose Campbell APRN at 05/31/2025 5450 Lines/Drains/Tubes: Patient Lines/Drains/Airways Status Active Active LDAs Name Placement date Placement time Site Days CVC Single Lumen 05/27/25 Right Internal jugular 05/27/25 0740 Internal jugular 4 CVC Double Lumen 05/27/25 Right Internal jugular 05/27/25 0740 Internal jugular 4 Peripheral IV 05/27/25 Right Antecubital 05/27/25 0655 Antecubital 4 Chest Tube 3 Right Pleural 32 Fr 05/27/25 1702 Pleural 3 Urethral Catheter Non-latex;Temperature probe 16 Fr. 05/27/25 0725 -- 4 Y Chest Tube 1 and 2 Anterior Mediastinal 32 Fr. Anterior Mediastinal 32 Fr. 05/27/25 1700 -- 3 Feeding Tube Gastric 10 Fr. Right nare 05/29/25 1215 Right nare 2 Negative Pressure Wound Therapy Sternum 05/27/25 1749 Sternum 3 GCS: Kip Coma Scale Score: 15 Review of Systems Constitutional: Positive for fatigue. HENT: Negative. Eyes: Negative. Respiratory: Negative for shortness of breath. Cardiovascular: Negative for chest pain. Gastrointestinal: Negative. Negative for nausea. Endocrine: Negative. Genitourinary: Negative. Musculoskeletal: Negative. Allergic/Immunologic: Negative. Neurological: Negative. Hematological: Negative. Psychiatric/Behavioral: Negative. Vital signs: Vitals: 05/31/25 1622 BP: Pulse: 70 Resp: 21 Temp: 38 ??C (100.4 ??F) SpO2: 97% Intake/Output Summary (Last 24 hours) at 05/31/2025 1634 Last data filed at 05/31/2025 1600 Gross per 24 hour Intake 1602.04 ml Output 3290 ml Net -1687.96 ml Physical Exam Constitutional: Appearance: Normal appearance. HENT: Head: Normocephalic. Nose: Nose normal. Mouth/Throat: Mouth: Mucous membranes are dry. Eyes: Pupils: Pupils are equal, round, and reactive to light. Cardiovascular: Rate and Rhythm: Normal rate. Pulmonary: Effort: Pulmonary effort is normal. Breath sounds: Normal breath sounds. Abdominal: General: Bowel sounds are normal. Palpations: Abdomen is soft. Musculoskeletal: Cervical back: Neck supple. Right lower leg: No edema. Left lower leg: No edema. Skin: General: Skin is dry. Capillary Refill: Capillary refill takes less than 2 seconds. Neurological: Mental Status: She is oriented to person, place, and time. Psychiatric: Behavior: Behavior normal. Results Review I have reviewed the latest lab and imaging results. Assessment and Plan: This patient is critically ill. 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) Present on Admission: Yes -will need procedure with vascular surgery Poorly-controlled hypertension Present on Admission: Yes -on cleviprex and nitroglycerin post op since weaned - PRN IV meds as needed BMI 25.0-25.9,adult Present on Admission: Not Applicable Body mass index is 25.77 kg/m??. -complicates aspects of care Hyperlipidemia Present on Admission: Yes - statin COPD (chronic obstructive pulmonary disease) ([facility]) Present on Admission: Yes -on mechanically assisted ventilation, expected s/p AAA repair, and root replace - evaluate for extubation- now extubated H/O aortic arch replacement Present on Admission: Not Applicable -05/27: Ascending aortic and arch aneurysm repair with ascending aortic replacement using a 28 Hemashield graft and aortic arch replacement using a 32 Hemashield tube graft with deep circulatory arrestusing bilateral antegrade cerebral perfusion and de-branching of the innominate artery and the leftcarotid artery with valve sparing H/O ascending aortic replacement Present on Admission: Not Applicable -05/27: Ascending aortic and arch aneurysm repair with ascending aortic replacement using a 28 Hemashield graft and aortic arch replacement using a 32 Hemashield tube graft with deep circulatory arrestusing bilateral antegrade cerebral perfusion and de-branching of the innominate artery and the leftcarotid artery with valve sparing H/O transcarotid artery revascularization (TCAR) Present on Admission: Not Applicable -02/2025 Hypokalemia Present on Admission: No -Monitor per protocol and replaced as indicated Cardiac volume overload Present on Admission: No Diurese as indicated Leukocytosis Present on Admission: No Monitor post op likely reactive Agitation requiring sedation protocol Present on Admission: No Precedex re-started 05/31, tolerating well. - Seroquel 75 BID Pt on Xanax at home Delirium due to multiple etiologies Present on Admission: No -Seroquel 75 BID -IV Haldol for PRN agitation. Now improved, pt alert and oriented Left upper extremity swelling Present on Admission: Yes -duplex pending A-fib ([facility]) Present on Admission: Unknown -Monitor per protocol. Non-Hospital Problems Peripheral vascular disease ([facility]) (Chronic) Asymptomatic stenosis of right carotid artery Yvrose Campbell APRN * Care Plan - Pauline Cm RN - 05/31/2025 4:03 PM EDT Problem: Adult Inpatient Plan of Care Goal: Absence of Hospital-Acquired Illness or Injury Outcome: Ongoing, Progressing Goal: Optimal Comfort and Wellbeing Outcome: Ongoing, Progressing Problem: Infection Goal: Absence of Infection Signs and Symptoms Outcome: Ongoing, Progressing Problem: Skin Injury Risk Increased Goal: Skin Health and Integrity Outcome: Ongoing, Progressing Problem: Cardiovascular Surgery Goal: Effective Bowel Elimination Outcome: Ongoing, Progressing Goal: Effective Cardiac Function Outcome: Ongoing, Progressing Goal: Optimal Cerebral Tissue Perfusion Outcome: Ongoing, Progressing Goal: Fluid and Electrolyte Balance Outcome: Ongoing, Progressing Goal: Acceptable Pain Control Outcome: Ongoing, Progressing Goal: Effective Urinary Elimination Outcome: Ongoing, Progressing * Progress Notes - Jacqueline Thomason - 05/31/2025 11:07 AM EDT Speech Language Pathology Clinical Swallow Initial Evaluation Patient Name: Joi Marcial Age: 70 y.o. Today's Date: 05/31/2025 Recommendations: NPO w/ DHT for nutrition/hydration/medications, ok for ice chips after oral care Q4 to facilitate oral health. Meds via alternate route. Recommend MBS to further assess swallow function. History/Background Information Joi Marcial is a 70 year old woman with a PMH of HTN, HLD, hx TUD, right carotid stenosis s/p TCAR,cerebral venous thrombosis, and OA who underwent AAA repair with Dr. Nicholson 05/27. Problem List[1] Past Medical History[2] Surgical History[3] Current diet: NPO diet NPO except: Sips with meds Tube Feeding Tube feeding formula: Impact Peptide 1.5; Route of feeding: Nasoduodenal; Tube feedingschedule: Continuous; Tube feeding continous initial Rate (ml/hr): 35; Advance by (ml): 10; Advanceevery (hr): 6; Tube feeding continuous goal rat... Subjective Joi Marcial was alert and cooperative. Identified by name and date of . RN provided verbal consent for evaluation. Objective Predisposing risk factors: COPD Clinical signs of possible chronic dysphagia: None identified Precipitating risk factors: Recent extubation Current diet: NPO diet NPO except: Sips with meds Tube Feeding Tube feeding formula: Impact Peptide 1.5; Route of feeding: Nasoduodenal; Tube feedingschedule: Continuous; Tube feeding continous initial Rate (ml/hr): 35; Advance by (ml): 10; Advanceevery (hr): 6; Tube feeding continuous goal rat... Respiratory Status: Nasal canula WBC: 9.01 Vitals: 05/31/25 1000 BP: 118/62 Pulse: 108 Resp: (!) 29 Temp: (!) 38.1 ??C (100.6 ??F) SpO2: 95% Relevant Imaging: XR Chest findings/impressions: Interval removal of the [place] catheter. The rest of the support hardware are unchanged in position. The cardiomediastinal contours unchanged. No pneumothorax. Smallbilateral pleural effusions similar to prior. Similar bilateral perihilar and bibasal lung opacities. Direction Following: Follows 1 step directions and Independently Oral Mechanism Report: Dentition: intact Oral hygiene: WFL Focused Cranial Nerve Exam: Trigeminal Nerve (V): mandible strength/ROM impaired Facial Nerve (VII): buccinator strength seemingly impaired Vagus (X): volitional cough impaired Spinal Accessory (XI): Not assessed Hypoglossal Nerve (XII): seemingly reduced strength Laryngeal Function Exam: Secretion Management: adequate Vocal Quality: reduced intensity Cough: - Volitional weak - Reflexive unable to elicit Oral Care Completed: yes Oral Feeding Trials: Positionin-90 degrees Feeding assistance: HISTOLOGY TECHNICIAN presented PO trials to patient Consistencies Administered: ice chips, thin liquid via teaspoon, thin liquid via cup, thin liquid via straw, and puree via teaspoon Oral Stage: Adequate anterior oral containment. Labial seal around cup/tsp/straw appears functional. Mastication appears functional, though prolonged. Mild- moderate diffuse oral stasis with puree. Pharyngeal Stage: Overt s/sxs of dysphagia related airway compromise. Pt was noted to cough with thin liquids and had increasingly wet vocal and respiratory quality with PO trials. 90 mL water test (Gage & Ely, 2014): not tested this date Assessment Summary: Patient presents with significant risk factors of oropharyngeal dysphagia. She would benefit from further evaluation via MBS to determine current swallow function and determine safest, leastrestrictive diet. HISTOLOGY TECHNICIAN recommending pt continue NPO diet with meds via alternate route until MBS canbe completed. Prognosis: Good for improved function with skilled speech pathology services focusing on stated goals. Patient Education: HISTOLOGY TECHNICIAN discussed evaluation results and recommendations with patient who expressed understanding. Results and recommendations of this evaluation were communicated to: RN/Team Plan / Recommendations Therapy Frequency: Pending instrumental evaluation results Follow-up date: 2-3 days F/u Imaging: MBS Short Term Goals: Patient will participate in MBSS. Correction Goals: Patient will return to least restrictive diet without any overt s/sxs of aspiration. 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) BMI 25.0-25.9,adult Asymptomatic stenosis of right carotid artery Hyperlipidemia COPD (chronic obstructive pulmonary disease) (CMS/HCC) Peripheral vascular disease ([facility]) 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 H/O transcarotid artery revascularization (TCAR) Hypokalemia Cardiac volume overload Leukocytosis Agitation requiring sedation protocol Delirium due to multiple etiologies Left upper extremity swelling [2] Past Medical History: Diagnosis Date Aneurysm (CMS/HCC) 2024 Hyperlipidemia Hypertension 1989 Obesity [3] Past Surgical History: Procedure Laterality Date ASCENDING AORTIC ANEURYSM REPAIR 05/27/2025 Ascending aortic and arch aneurysm repair with ascending aortic replacement using a 28 Hemashield graft and aortic arch replacement using a 32 Hemashield tube graft with deep circulatory arrest usingbilateral antegrade cerebral perfusion and de-branching of the innominate artery and the left carotid artery. (Dr. Jose C Nicholson) BACK SURGERY CHOLECYSTECTOMY 1971 FOOT SURGERY HYSTERECTOMY TOTAL HIP ARTHROPLASTY Left * Clinician Note - Archana Hester - 05/31/2025 11:00 AM EDT Occupational Therapy Attempt Patient Name: Joi Marcial Today's Date: 05/31/2025 Patient was attempted to be seen by occupational therapy 05/31/2025 for OT Evaluation however patient not appropriate due to medical status (05/31 pending VAS US LUE r/o DVT; SPB<140, resting in 150s.). Occupational therapy team will follow-up as schedule permits. Written by Archana Hester on 05/31/25 at 11:00 AM. * Clinician Note - Celina Jung - 05/31/2025 10:45 AM EDT Physical Therapy Attempt Patient Name: Joi Marcial Today's Date: 05/31/2025 Patient was attempted to be seen by physical therapy 05/31/2025 for PT Evaluation however patient not appropriate due to medical status (05/31 pending VAS US LUE r/o DVT; SPB<140, resting in 150s). Physical therapy team will follow-up when medically appropriate. Written by Celina Jung on 05/31/25 at 1:05 PM. * Progress Notes - Marques Pal MD - 05/31/2025 10:31 AM EDT Images from the original note were not included. CARDIOTHORACIC SURGERY PROGRESS NOTE SUBJECTIVE Acute Events/Last 24 Hrs: more alert and interactive, following commands. In/out of atrial fibrillation. Stable hemodynamics. CT with 560 out. OBJECTIVE All laboratory data, images, tracings, and vital sign data for past 24 hours are personally reviewed unless otherwise noted. Physical Exam VITALS (last 24h) 05/31/2025 5:00 AM 05/31/2025 6:00 AM 05/31/2025 6:32 AM 05/31/2025 7:00 AM 05/31/2025 8:00 AM 05/31/2025 9:00 AM 05/31/2025 9:13 AM Vitals Systolic 144 138 157 139 156 155 Diastolic 80 80 87 83 73 73 Heart Rate 105 106 111 93 113 116 116 Temp 37.9 C 38.0 C 38.1 C 38.2 C 38.2 C 38.2 C Resp 31 35 21 27 27 26 Weight (kg) 72.4 kg BMI 25.77 kg/m2 BSA (m2) 1.84 m2 PAP: (32)/(16) 32/16 CO: [5 L/min] 5 L/min CI: [2.8 L/min/m2] 2.8 L/min/m2 O2 Delivery Method: Nasal cannula Vent Mode: PS/CPAP Invasive Vent Status (ETT, Trach Only): Discontinued S VT: 400 mL Insp Time (sec): 1.1 sec Vent Mode: PS/CPAP FiO2 (%): 28 % S RR: 14 S VT: 400 mL MAP (cm H2O): 7.2 GENERAL: No acute distress, resting comfortably EYES: extraoccular eye movement grossly intact, pupils equal and reactive, anicteric NECK: no JVD, no thyromegaly RESP/CHEST: Symmetric expansion; non labored. CTA bilaterally. CARD: rhythm irregular atrial fibrillation EXTREMITIES: No lower extremity edema present. GI: Soft, Nontender, nondistended. NEURO: AAOx4. No focal deficits PSYCH: Mood and affect congruent and appropriate to situation. INCISIONS: Sternum - Wound Vac in place Intake/Output Intake/Output Summary (Last 24 hours) at 05/31/2025 1031 Last data filed at 05/31/2025 0900 Gross per 24 hour Intake 1503.35 ml Output 2960 ml Net -1456.65 ml Results Labs in last 18 hours CBC WBC 9.01 Hb 8.9 (L) Plt 76 (L) Hct 27.1 (L) ANC ?? INR ??, PTT ??, Anti-Xa ?? BMP Na 147 (H) Cl 112 (H) BUN 22 Glu 129 (H) K 3.6 Co2 27 Cr 0.59 (L) Ca 8.6 (L) iCa ?? Mg 2.0, Phos 2.4 (L) Lactate ?? LFT AST ?? AlkPhos ?? T Prot ?? ALK ?? Bili ?? Alb ?? D.Bili ?? Imaging No echocardiogram results found for the past 14 days No valid procedures specified. No CXR imaging results found for the past day. 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) Active Problems: Cerebral venous sinus thrombosis 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) Poorly-controlled hypertension BMI 25.0-25.9,adult Hyperlipidemia COPD (chronic obstructive pulmonary disease) ([facility]) 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 H/O transcarotid artery revascularization (TCAR) Hypokalemia Cardiac volume overload Leukocytosis Agitation requiring sedation protocol Delirium due to multiple etiologies Left upper extremity swelling 70 yrs female who underwent valve-sparing ascending aortic and arch aneurysm repair with debranching of innominate and left carotid on 05/27/[address] Nicholson. (4 Days Post-Op) - Aspirin, statin - start metop 25mg bid today - consider adding amio IV this afternoon if still in afib - 40mg PO Lasix - Continue chest tubes and pacing wires - Incisional wound vac until POD 5 - HISTOLOGY TECHNICIAN for swallow - hold home plavix - Mobilize, PT/OT - Continue ICU care Cardiothoracic Surgery 05/31/25 10:31 AM Cosigned by Jose C Nicholosn MD at 05/31/2025 11:52 AM EDT Associated attestation - Jose C Nicholson MD - 05/31/2025 11:52 AM EDT I saw and evaluated the patient with the resident/fellow. I discussed the case with the resident/fellow and agree with the findings and plan as documented. * Teleconsult - Salbador Casillas MD - 05/31/2025 12:49 AM EDT 05/31/25 Joi Marcial Asked by RN to review and reorder restraints. Chart reviewed and patient visualized. Patient has continued need for restraints. Order renewed. Changed to Mitts Salbador Casillas MD * Consults - Shira Titus RD - 05/30/2025 3:39 PM EDT Adult Nutrition Evaluation Note Joi Marcial 70 y.o. female CSN: [id number] Room/Bed 237/237A Nutrition evaluation type: follow up Reason for evaluation: Hospital course: 70 yo female S/P Ascending Aortic Replacement, Hemiarch, Circulatory Arrest, Aortic Arch Debranching on 05/27. She is currently intubated, on Propofol and NE. 05/30: Off Propofol and NE. Past medical/ surgical history: has a past medical history of Aneurysm (CMS/HCC) (2024), Hyperlipidemia, Hypertension (1989), and Obesity. Social history: Additional comments: 05/28: Discussed on [facility] team rounds. Team is hoping to extubate today. 05/30: TF at 35 mL/hr. Vitals and Basic Assessment: BP: 108/52 Temp: 37.7 ??C (99.9 ??F) Invasive Ventilator Initiated (ETT/Trach Only): Yes Oxygen Therapy: Supplemental oxygen O2 Delivery Method: Nasal cannula Kip Coma Scale Score: 10 John Scale Score: 21 Wilfredo/Cubbin Pressure Risk Score: 32 Edema: Left upper extremity, Right lower extremity, Left lower extremity No BM documented; abd documented soft ND with active bowel sounds Allergies: NKA Medications: Current Scheduled Medications[1] Current Continuous Medications[2] Current PRN Medications[3] Meds were reviewed: Yes Labs: Labs in last 18 hours CBC WBC 9.27 Hb 9.3 (L) Plt 73 (L) Hct 27.8 (L) ANC ?? INR ??, PTT ??, Anti-Xa ?? BMP Na 147 (H) Cl 113 (H) BUN 26 (H) Glu 122 (H) K 4.2 Co2 26 Cr 0.69 Ca 9.3 iCa 4.9 Mg 2.1, Phos 2.4 (L) Lactate 0.9 LFT AST ?? AlkPhos ?? T Prot ?? ALK ?? Bili ?? Alb ?? D.Bili ?? HgA1C 5.4 (05/14) Anthropometrics: Height: 167.6 cm (5' 5.98 ) Weight: 76.1 kg (167 lb 12.3 oz) BMI (Calculated): 27.09 Weight Evaluation: Overweight (BMI 25-29.9) [place] Body Weight (kg): 59.1 Percent [place] Body Weight: 120 Estimated Needs: Kcal/ K-20 Kcal Provided: 7131-9341 Kcal Needs Based On: Admit weight (71.2 kg) Gm Protein/ Kg : 1.2-1.5 Protein Provided: 85-107 Protein Needs Based On: Admit weight (71.2 kg) Metabolic Cart Study Results: Current Nutrition Intake: Diet Order: NPO Enteral Nutrition Formula/Solution: Peptamen 1.5 Tube Feeding Route: [place] Current Tube Feed Rate (Continuous or Intermittent): 35 Goal Tube Feed Rate (Continuous or Intermittent): 35 Average Infusion: 330 mL x 24 hrs Diet Experience and Nutrition History: Diet Education Provided: Will monitor Pertinent home medications: [facility] needs: Nutrition Focused Physical Exam: Physical exam performed on (date): 05/28 Temples (muscles): None Clavicle (muscle): None Shoulder (muscle): None Orbital (fat): None Triceps (fat): None Assessment of Malnutrition: Malnutrition Identified: No Nutrition Problem: Inadequate oral intake related to mech vent as evidenced by NPO. Status of Nutrition Diagnosis: Ongoing Nutrition Interventions and Recommendations: - Changed TF formula to Impact Peptide 1.5 with goal of 45 mL/hr (Provides x 22 hrs (990 mL): 1485 kcal, 93 gm prot, 762 mL H2O). - FW per MD team. - Closely monitor electrolytes and replace prn. - Bowel regimen per team. Nutrition Monitoring and Goals: - establish source of nutrition (met) - TF to provide >80% goal volume - monitor elytes (ongoing) Acuity Level: 4 Shira Titus, SARA [1] ALPRAZolam, 0.25 mg, Oral, BID aspirin, 81 mg, Oral, Daily atorvastatin, 20 mg, Oral, Nightly docusate sodium, 100 mg, Oral, BID furosemide, 20 mg, Oral, Daily ipratropium-albuterol, 3 mL, Nebulization, q4h multivitamin , 1 tablet, Oral, Daily mupirocin, 1 Application, Each Nostril, BID pantoprazole, 40 mg, Intravenous, Daily PARoxetine, 20 mg, Oral, Daily potassium & sodium phosphates, 1 packet, Oral, q8h QUEtiapine, 75 mg, Nasogastric, BID senna, 17.2 mg, Oral, Nightly [2] dexmedetomidine, 0.4-1.4 mcg/kg/hr (Dosing Weight), Last Rate: Stopped (05/30/25 1507) [3] PRN medications: acetaminophen, hydrALAZINE OR hydrALAZINE, HYDROmorphone OR HYDROmorphone, hydrOXYzine pamoate, labetalol OR labetalol, ondansetron, oxyCODONE OR oxyCODONE, polyethylene glycol * Progress Notes - Merary Abbott - 05/30/2025 2:29 PM EDT Case Management Adult Initial Progress Note Joi Marcial 70 y.o. 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 No Insurance: Primary Visit Coverage Payer Plan Sponsor Code Group Number Group Name [employer] MEDICARE HU[employer] MEDICARE [id number] Primary Visit Coverage Subscriber Subscriber ID Subscriber Name Subscriber SSN Subscriber Address [id number] JOI MARCIAL [id number] [address] [place] [address] Patient information: Primary Caregiver: Self Support System: Immediate family Daily Living Activities: Functional Status: Independent Living Arrangements: Alone [address] [place] [address] Current DME: Equipment Currently Used at Home: none Income Information: Income Source: Unknown Housing Circumstances-Z Codes: Patient Referred to: n/a. Anticipated Discharge Date: TBD. Patient's Discharge Goal: TBD. Assistance Available at Discharge: Daughter. Discharge Transport: Daughter. Follow Up Transport: Daughter. Home Health / Home Infusion / Outpatient Dialysis Services: None. Living Will/Advance Directive/Power of Floor Representative /Guardian: Have you reviewed your Advance Directive and is it valid for this stay?: Not applicable Advance Directive: Not applicable Information Provided on Healthcare Directives: No Pre-existing DNR/DNI Order: No Patient Requests Assistance: No Additional Comments: SW met with care team. Patient hospitalized for aneurysm of aortic arch without rupture. RN confirmed daughter will be visiting in the evening. SW conducted initial assessment with daughter Germania Jimenez by phone. PCP listed as Dr. Edwardo Sheehan. Daughter confirmed that she is the primary contact. Confirmed insurance is [employer]. Address is [address] [place] [address] [place], [address]. Prior to health event, patient had no DME/02/HH/HD and lives alone. Assessed SDOH and no concerns were reported by daughter pertaining to housing, food/utilities, transportation, or IPV. [place] * Query Clarification Note - Nidia Vance APRN - 05/30/2025 2:29 PM EDT Please review the following and provide your response below. Current documentation includes a diagnosis of hypotension on 05/28 in the Intensive Care PN. Please clarify which of the following best represents the etiology of the above symptoms and treatment rendered: []Hemorrhagic shock []Shock, other type-please specify [x]Hypotension without shock -Indicate type/etiology, if known _post op vasoplegia []Other (please specify) Indicate POA status: []Yes []No This documentation will become part of the patient's medical record. 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 Nicholson * Assessment & Plan Note - Nidia Vance APRN - 05/30/2025 12:20 PM EDT Associated Problem(s): 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) -will need procedure with vascular surgery * Assessment & Plan Note - Nidia Vance APRN - 05/30/2025 12:20 PM EDT Associated Problem(s): Poorly-controlled hypertension -on cleviprex and nitroglycerin - Hydral stopped - PRN IV meds as needed * Assessment & Plan Note - Nidia Vance APRN - 05/30/2025 12:20 PM EDT Associated Problem(s): BMI 25.0-25.9,adult (Deleted) Body mass index is 27.09 kg/m??. -complicates aspects of care * Assessment & Plan Note - Nidia Vance APRN - 05/30/2025 12:20 PM EDT Associated Problem(s): Hyperlipidemia - statin * Assessment & Plan Note - Nidia Vance APRN - 05/30/2025 12:20 PM EDT Associated Problem(s): COPD (chronic obstructive pulmonary disease) (CMS/HCC) -on mechanically assisted ventilation, expected s/p AAA repair, and root replace - evaluate for extubation - PS when mental status allows * Assessment & Plan Note - Nidia Vance APRN - 05/30/2025 12:20 PM EDT Associated Problem(s): H/O aortic arch replacement -05/27: Ascending aortic and arch aneurysm repair with ascending aortic replacement using a 28 Hemashield graft and aortic arch replacement using a 32 Hemashield tube graft with deep circulatory arrestusing bilateral antegrade cerebral perfusion and de-branching of the innominate artery and the leftcarotid artery with valve sparing * Assessment & Plan Note - Nidia Vance APRN - 05/30/2025 12:20 PM EDT Associated Problem(s): H/O ascending aortic replacement -05/27: Ascending aortic and arch aneurysm repair with ascending aortic replacement using a 28 Hemashield graft and aortic arch replacement using a 32 Hemashield tube graft with deep circulatory arrestusing bilateral antegrade cerebral perfusion and de-branching of the innominate artery and the leftcarotid artery with valve sparing * Assessment & Plan Note - Nidia Vance APRN - 05/30/2025 12:20 PM EDT Associated Problem(s): H/O transcarotid artery revascularization (TCAR) -02/2025 * Assessment & Plan Note - Nidia Vance APRN - 05/30/2025 12:20 PM EDT Associated Problem(s): Hypokalemia -Monitor per protocol and replaced as indicated * Assessment & Plan Note - Nidia Vance APRN - 05/30/2025 12:20 PM EDT Associated Problem(s): Cardiac volume overload (Resolved 06/07/2025) Diurese as indicated * Assessment & Plan Note - Nidia Vance APRN - 05/30/2025 12:20 PM EDT Associated Problem(s): Leukocytosis Monitor post op likely reactive * Assessment & Plan Note - Nidia Vance APRN - 05/30/2025 12:20 PM EDT Associated Problem(s): Agitation requiring sedation protocol (Resolved 06/02/2025) Precedex re-started 05/31, tolerating well. - Seroquel 75 BID Pt on Xanax at home * Assessment & Plan Note - Nidia Vance APRN - 05/30/2025 12:20 PM EDT Associated Problem(s): Delirium due to multiple etiologies (Resolved 06/07/2025) -Seroquel 75 BID -IV Haldol for PRN agitation. * Care Plan - Kayla Ramirez RN - 05/30/2025 12:10 PM EDT Problem: Adult Inpatient Plan of Care Goal: Plan of Care Review Outcome: Ongoing, Progressing Flowsheets (Taken 05/30/2025 1210) Progress: improving Outcome Evaluation: working toward extubation Plan of Care Reviewed With: patient Goal: Patient-Specific Goal (Individualized) Outcome: Ongoing, Progressing Goal: Absence of Hospital-Acquired Illness or Injury Outcome: Ongoing, Progressing Goal: Optimal Comfort and Wellbeing Outcome: Ongoing, Progressing Problem: Infection Goal: Absence of Infection Signs and Symptoms Outcome: Ongoing, Progressing Problem: Mechanical Ventilation Invasive Goal: Effective Communication Outcome: Ongoing, Progressing Goal: Optimal Device Function Outcome: Ongoing, Progressing Goal: Mechanical Ventilation Liberation Outcome: Ongoing, Progressing Goal: Optimal Nutrition Delivery Outcome: Ongoing, Progressing Goal: Absence of Device-Related Skin and Tissue Injury Outcome: Ongoing, Progressing Goal: Absence of Ventilator-Induced Lung Injury Outcome: Ongoing, Progressing Problem: Skin Injury Risk Increased Goal: Skin Health and Integrity Outcome: Ongoing, Progressing Problem: Restraint, Nonviolent Goal: Absence of Harm or Injury Outcome: Ongoing, Progressing Problem: Cardiovascular Surgery Goal: Effective Bowel Elimination Outcome: Ongoing, Progressing Goal: Effective Cardiac Function Outcome: Ongoing, Progressing Goal: Optimal Cerebral Tissue Perfusion Outcome: Ongoing, Progressing Goal: Fluid and Electrolyte Balance Outcome: Ongoing, Progressing Goal: Acceptable Pain Control Outcome: Ongoing, Progressing Goal: Effective Urinary Elimination Outcome: Ongoing, Progressing * Progress Notes - Nidia Vance APRN - 05/30/2025 12:09 PM EDTAssociated Order(s): Critical Care Post-Procedure Diagnose(s): BMI 25.0-25.9,adult; Delirium due to multiple etiologies; Cardiac volume overload; Aneurysm of descending thoracic aorta without rupture ([facility]) Critical Care Performed by: Nidia Vance APRN Authorized by: Nidia Vance APRN Critical care provider statement: Critical care time (minutes): 45 Critical care time was exclusive of: Separately billable procedures and treating other patients Critical care was time spent personally by me on the following activities: Development of treatmentplan with patient or surrogate, ordering and performing treatments and interventions, ordering and review of laboratory studies, ordering and review of radiographic studies, ventilator management, obtaining history from patient or surrogate, examination of patient, evaluation of patient's response to treatment, discussions with consultants, discussions with primary provider and review of old charts I assumed subsequent critical care for this patient from a provider in my division, on the same day: yes Comments: The patient is critically ill with: acute resp failure on mechanical vent, encephalopathy, labile BP, hyperactive delirium. They require complex decision making. The patient was seen on rounds with critical care physician, Dr. Roberts and they are in agreement with the plan of care. Pharmacy, respiratory and nursing services were present on rounds. 05/30/25 Joi Marcial is a 70 y.o. 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 If applicable, patient is s/p Procedure(s) and Anesthesia Type: * Ascending Aortic Replacement, Hemiarch, Circulatory Arrest, Aortic Arch Debranching - General. Patient is 3 Days Post-Op with Cardiothoracic Surgery. Past 24 hours: PM: NAEO. Wean sedation & PS trial in AM. Escalated bowel regimen. AM: Inconsistently follows commands. Precedex started for agitation. Increased seroquel to 75. Guanfacine could be used to transition to oral meds. BP continues to be labile. A-line removed this morning. DHT placed yesterday, getting tube feeds. 20 of PO lasix this PM if tolerates. Remove PAC. Edited by: Nidia Vance APRN at 05/30/2025 1016 Lines/Drains/Tubes: Patient Lines/Drains/Airways Status Active Active LDAs Name Placement date Placement time Site Days CVC Single Lumen 05/27/25 Right Internal jugular 05/27/25 0740 Internal jugular 3 CVC Double Lumen 05/27/25 Right Internal jugular 05/27/25 0740 Internal jugular 3 Peripheral IV 05/27/25 Right Antecubital 05/27/25 0655 Antecubital 3 Chest Tube 3 Right Pleural 32 Fr 05/27/25 1702 Pleural 2 Urethral Catheter Non-latex;Temperature probe 16 Fr. 05/27/25 0725 -- 3 Y Chest Tube 1 and 2 Anterior Mediastinal 32 Fr. Anterior Mediastinal 32 Fr. 05/27/25 1700 -- 2 ETT ETT - single 8 mm 05/27/25 0725 Oral 3 Feeding Tube Gastric 10 Fr. Right nare 05/29/25 1215 Right nare less than 1 Negative Pressure Wound Therapy Sternum 05/27/25 1749 Sternum 2 GCS: [employer] Coma Scale Score: 10 Review of Systems 14 point ROS reviewed and otherwise negative or unobtainable except as noted above or in HPI. Vital signs: Vitals: 05/30/25 1100 BP: 125/60 Pulse: 88 Resp: 20 Temp: 37.9 ??C (100.2 ??F) SpO2: 98% Intake/Output Summary (Last 24 hours) at 05/30/2025 1209 Last data filed at 05/30/2025 1100 Gross per 24 hour Intake 1168.8 ml Output 1640 ml Net -471.2 ml Physical Exam Vitals and nursing note reviewed. HENT: Head: Normocephalic. Nose: Nose normal. Mouth/Throat: Mouth: Mucous membranes are dry. Eyes: Pupils: Pupils are equal, round, and reactive to light. Comments: R pupil SR Cardiovascular: Rate and Rhythm: Normal rate and regular rhythm. Pulmonary: Effort: Pulmonary effort is normal. Breath sounds: Normal breath sounds. Comments: OETT Abdominal: General: Bowel sounds are normal. Palpations: Abdomen is soft. Comments: Hypo X4 Musculoskeletal: General: Swelling (left UE) present. Cervical back: Neck supple. Right lower leg: Edema (trace) present. Left lower leg: Edema (trace) present. Skin: General: Skin is warm and dry. Capillary Refill: Capillary refill takes less than 2 seconds. Findings: Bruising present. Comments: Midline sternotomy/prevena Chest tubes CDI Wires CDI Neurological: General: No focal deficit present. GCS: GCS eye subscore is 4. GCS verbal subscore is 1. GCS motor subscore is 5. Motor: Weakness present. Comments: Sedated Precedex Psychiatric: Attention and Perception: Attention normal. Mood and Affect: Mood is anxious. Behavior: Behavior is agitated and hyperactive. Judgment: Judgment is impulsive and inappropriate. Results Review I have reviewed the latest lab and imaging results. Assessment and Plan: This patient is critically ill. 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) Present on Admission: Yes -will need procedure with vascular surgery Poorly-controlled hypertension Present on Admission: Yes -on cleviprex and nitroglycerin - Hydral stopped - PRN IV meds as needed BMI 25.0-25.9,adult Present on Admission: Not Applicable Body mass index is 27.09 kg/m??. -complicates aspects of care Hyperlipidemia Present on Admission: Yes - statin COPD (chronic obstructive pulmonary disease) (CMS/HCC) Present on Admission: Yes -on mechanically assisted ventilation, expected s/p AAA repair, and root replace - evaluate for extubation - PS when mental status allows H/O aortic arch replacement Present on Admission: Not Applicable -05/27: Ascending aortic and arch aneurysm repair with ascending aortic replacement using a 28 Hemashield graft and aortic arch replacement using a 32 Hemashield tube graft with deep circulatory arrestusing bilateral antegrade cerebral perfusion and de-branching of the innominate artery and the leftcarotid artery with valve sparing H/O ascending aortic replacement Present on Admission: Not Applicable -05/27: Ascending aortic and arch aneurysm repair with ascending aortic replacement using a 28 Hemashield graft and aortic arch replacement using a 32 Hemashield tube graft with deep circulatory arrestusing bilateral antegrade cerebral perfusion and de-branching of the innominate artery and the leftcarotid artery with valve sparing H/O transcarotid artery revascularization (TCAR) Present on Admission: Not Applicable -02/2025 Hypokalemia Present on Admission: No -Monitor per protocol and replaced as indicated Cardiac volume overload Present on Admission: No Diurese as indicated Leukocytosis Present on Admission: No Monitor post op likely reactive Agitation requiring sedation protocol Present on Admission: No Precedex re-started 05/31, tolerating well. - Seroquel 75 BID Pt on Xanax at home Delirium due to multiple etiologies Present on Admission: No -Seroquel 75 BID -IV Haldol for PRN agitation. Non-Hospital Problems Peripheral vascular disease (CMS/HCC) (Chronic) Asymptomatic stenosis of right carotid artery Nidia Vance APRN Cosigned by Jose C Nicholson MD at 05/31/2025 12:03 PM EDT Associated attestation - Jose C Nicholson MD - 05/31/2025 12:03 PM EDT Seen and examined and records reviewed and discussed with the ICU team on multidisciplinary rounds and discussion I agree with Miss Vance note and plan. * Delfina Rowell RN - 05/30/2025 9:43 AM EDT Images from the original note were not included. [address]39 Recovery From Heart Surgery: The First Few Weeks During the first few weeks after heart surgery, you?ll be regaining your energy and strength. Your health care provider will let you know what you can and can?t do as you get better. Take things slowly. And rest when you get tired. Walking Walking is one of the easiest and best ways to help yourself get better. When you walk, your legs pump blood to your heart. This improves blood flow throughout your body. Choose a safe place with a level surface. A local park or a mall are good choices. Start by walking for 5 minutes. Walk a littlelonger each day. And walk with a friend if you can. Driving Your body needs to heal before you drive. Your reflexes will be slow for a while. And some of your medicines can make you drowsy. Let others drive until your surgeon says you can drive again. Wear your seat belt when you are in a car. Lifting For the first 6 weeks, don?t lift, push, or pull more than 10 pounds ( 4.5 kg). Your health care provider may give you specific limits on how much you can lift. Follow their instructions. Showering You may feel weak the first few times you shower at home. Ask someone to stand nearby in case you need help. Don't use very hot water. It can affect your blood flow and make you dizzy. Working Your health care provider can advise you about the best plan for returning to work. You may be ableto return part-time to a desk job 6 weeks after your surgery. If you have a more active job, check with your surgeon. Sexual activity Sex is generally safe for most people within 2 to 4 weeks after uncomplicated CABG (coronary arterybypass graft) surgery. Talk with your surgeon about when it's safe for you to resume sexual activity. Your feelings It is common to feel a little depressed or frustrated while healing after major surgery. You might feel cheerful and energetic one day. And you may feel cranky and tired the next. You may find it hard to think clearly or to sleep. Or you may not be hungry. These things will get better soon. Try notto withdraw from your family and friends. Keep talking to, listening to, and supporting each other. What to watch for Watch for any signs of infection at your incision site. These include: ? Fever ? Chills ? Redness ? Drainage ? Foul-smelling odor ? Pain that gets worse Call your health care provider if any of these occur. Your provider will show you how to take your pulse. Call your provider right away if you develop a fast, slow, or irregular heartbeat. You may have low blood pressure if you become dizzy but feel better when you sit down. Have someone take your blood pressure or call your provider. If you don't feel better with sitting down, call 911 as noted below. Call 911 Call 911 if any of these occur: ? New or unusual chest pain or a return of the heart symptoms you had before surgery ? New or unusual shortness of breath ? Feeling dizzy or lightheaded, or passing out ? Pulse (heartbeat) is fast (more than 120 beats per minute) or slow (fewer than 50 beats per minute). Or your pulse is irregular, has extra beats, or skips beats. ? Heavy bleeding from the incision site, or bleeding that doesn't stop Last Reviewed Date: 2024 00:00:00 ?? 5431-9614 [employer]. All rights reserved. This information is not intended as a substitute for professional medical care. Always follow your healthcare professional's instructions. * [facility] - Delfina He RN - 05/30/2025 9:43 AM EDT Images from the original note were not included. [id number] After Heart Valve Surgery For the first 6 to 8 weeks after surgery, you?ll gain a little more energy and strength each day. Your healthcare provider will discuss what you can and can?t do as you recover. Some days will be easier than others. Remember to take things slowly and rest when you get tired. Walking ? Walking pumps blood to your heart. This improves blood flow all over your whole body. ? Start with a short walk (maybe 5 minutes). Walk for a little longer each day. ? Choose a safe place with a level surface. This might be a local park or mall. ? Wear shoes with good support. This will help prevent injury to knees and ankles. ? Walk with someone. It?s more fun and helps you stay with it. Showering ? Don't use very hot water, especially on the cuts (incisions). It can affect your circulation and make you dizzy. ? Ask someone to stand nearby in case you need help. Driving ? Let others drive you around for the first 4 to 6 weeks after your surgery, or as directed by yourhealthcare provider. ? Motion can make pain worse and injure your breastbone. ? Some of your medicines may make you drowsy. Easing into activity ? After a few weeks, you can start doing light work around your home, such as making simple meals and washing dishes. ? Most healthcare providers advise against lifting anything that weighs more than 5 pounds Your provider may give you a different weight limit. Don't do activities that require raising your arms above the height of your shoulders. For instance, don't reach up to get items from higher shelves. ? Don't do mowing or vacuuming. These motions can strain your breastbone. ? Your provider can advise you about the best plan for returning to work. It will depend on the type of work you do, such as a desk job, or a more active job. ? Discuss with your provider when you can resume having sex. This will depend on the type of surgery you had. For instance, if your breastbone was cut, your provider may advise waiting 2 to 4 weeks. Or waiting until you can easily climb 2 flights of stairs or walk a 1/2 mile. Medicines your healthcare provider may prescribe ? Blood-thinner (anticoagulant). This medicine prevents bleeding or blood clots that could lead to a stroke. ? Antibiotic. This helps prevent infection that could scar and destroy your new heart valve. You'llbe told when to take this medicine. That might be before dental work, surgery, or other medical procedures. When to call your healthcare provider Call your healthcare provider right away if you have any of these: ? Fever of 100.4??F (38??C) or higher, or as advised by your provider ? Chills Call 911 Call 911 if any of these occur: ? New or abnormal chest pain or belly (abdominal) pain ? Feeling dizzy or faintness ? New or abnormal shortness of breath ? Cough up red blood or have red blood in your stool ? Irregular, slow, or fast heart rate ? Sudden numbness in arms, legs, or face ? Sudden severe headache Last Reviewed Date: 2023 00:00:00 ?? [id number] [employer]. All rights reserved. This information is not intended as a substitute for professional medical care. Always follow your healthcare professional's instructions. * Bren Han - Delfina He RN - 05/30/2025 9:43 AM EDT Images from the original note were not included. 1548 After Sternotomy: General Safety You need to protect your chest until it heals. Follow these rules 6-8 weeks after surgery, unless your doctor tells you otherwise. Basic safety steps: 1. When you move, keep your arms as close to your body as you can. 2. Do not push or pull with your arms. 3. Do not lift over 5-10 pounds. For example, a gallon of milk weighs about 10 pounds. 4. You can move your arms through your full range of motion. How to get out of bed Step 1: Lay flat with your arms crossed. Step 2: Roll to either side. Step 3: Kick your legs off the bed. Dig your elbow into the bed and use your stomach to start to sit. Step 4: Keep your arms across your chest as you move to sit. Step 5: Rest your arms on the bed next to your hips. OR rest your arms on your thighs. Step 6: Stand up. Do not use your hands! Do not do these moves when you get out of bed. Do not pull on a bed rail to sit up or lay down. Do not push up on the bed to stand with arms away from body. Do not pull on the bed rails to scoot. Do not do these when someone helps you get out of bed. Do not pull up with your arms to get out of bed. Do not pull up with the arms to get up or stand. How to open a door Correct Your arm should stay close to your body. Incorrect Do not move your arm away from your body to pull. How to walk with a cane Correct Keep your elbow close to your body. Incorrect Do not move your elbow away from your body. How to carry a bag Correct Keep your elbow close to your body. Incorrect Do not move your elbow away from your body. Correct Keep your elbow close to your body. Incorrect Do not move your elbow away from your body. How to use a wheelchair Correct Keep your elbows close to your body to propel the wheelchair. Incorrect Do not propel the wheelchair with your elbows away from your body. How to get in and out of a chair Correct Keep your elbows close to your body. Place your hands next to your thighs to push to stand. Incorrect Do not push up with your elbows away from your body. How to move from a chair to a walker Correct Option 1: Keep walker close. Place your hands on the seat next to your thighs. Keep your arms closeto your body as you push up. Option 2: Place your hands on your thighs. Keep your arms close to your body as you push up. Incorrect Do not pull up with one hand on the walker and push up with the other hand on the chair. Do not pull up or push up with your arms away from your body. How to get up from the toilet Correct Step 1: Place your hands on the seat close to your thighs. Step 2: Keep your arms close to your body as you push up. Step 3: Keep arms close to your body as you stand. Correct - with bedside commode Step 1: Place your hands on the seat close to your thighs. Step 2: Keep your arms close to your body as you push up. Step 3: Keep arms close to your body as you stand. Incorrect Do not push up with your arms away from your body. Do not push or pull with your arms away from your body. * Discharge Instr - Other Orders - Delfina He RN - 05/30/2025 9:31 AM EDT Please arrive 30 minutes early for your appointment with Dr. Nicholson Prior to your appointment, go to the radiology department on the 1st floor of the [facility] near [facility] [place] for a chest x-ray. Then go to the lab on the 2nd floor for blood work. Then come to our office on the 3rd floor. Please bring an UPDATED list of medications you are currently taking and parking ticket in for validation. * Discharge Instr - Diet - Delfina He RN - 05/30/2025 9:31 AM EDT Your food may taste funny, or you may not have much of an appetite. This is normal after surgery and should go away. Follow a heart healthy diet. (Information included) * Discharge Instr - Activity - Delfina He RN - 05/30/2025 9:31 AM EDT Take a shower every day. Use a clean washcloth on your incisions every day. Wash your incisions before you wash anywhere else on your body. Do NOT use Neosporin, Peroxide, Betadine, or other ointments on your incisions. Do NOT lift, push, or pick pulling machine tender 5 pounds for six weeks. Do NOT drive until your physician gives you approval. Move around as you are able. No activity that tires you out. You can ride in the front seat of the car. You can raise both arms at the same time. * Discharge Instr - AVS First Page - Delfina He RN - 05/30/2025 9:30 AM EDT Temperature 101.5 or greater. Incisions coming open or draining pus. Pain not relieved by medications. Increased shortness of breath. Increased swelling. For questions or concerns, please contact??? Delfina He CT Surgery Nurse Navigator at [phone] Monday through Monday 7am- 3:30pm [facility] [phone] after 3:30 pm, weekends and holidays - ask for the CT surgeon art conservator. * Care Plan - Sharyn Ragland - 05/30/2025 9:27 AM EDT Problem: Mechanical Ventilation Invasive Goal: Effective Communication Outcome: Ongoing, Progressing Problem: Mechanical Ventilation Invasive Goal: Optimal Device Function Outcome: Ongoing, Progressing * Clinician Note - Ronit Gonzalez - 05/30/2025 8:34 AM EDT Occupational Therapy Attempt Patient Name: Joi Marcial Today's Date: 05/30/2025 Patient was attempted to be seen by occupational therapy 05/30/2025 for OT Evaluation however patient not appropriate due to medical status. Occupational therapy team will follow-up when medically appropriate. Written by Ronit Gonzalez on 05/30/25 at 8:34 AM. * Clinician Note - Sarah Schroeder - 05/30/2025 7:18 AM EDT Physical Therapy Attempt Patient Name: Joi Marcial Today's Date: 05/30/2025 Patient was attempted to be seen by physical therapy 05/30/2025 for PT Evaluation however Patient intubated and sedated.. Physical therapy team will follow-up when medically appropriate. Written by Sarah Schroeder on 05/30/25 at 11:56 AM. 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 Nicholson * Assessment & Plan Note - Gabby Duenas APRN, CNS, ANAYA - 05/29/2025 11:26 PM EDTAssociated Problem(s): 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) -will need procedure with vascular surgery * Assessment & Plan Note - Gabby Duenas APRN, CNS, DNP - 05/29/2025 11:26 PM EDTAssociated Problem(s): Poorly-controlled hypertension -on cleviprex and nitroglycerin - Hydral stopped - PRN IV meds as needed - On and off Levophed * Assessment & Plan Note - Gabby Duenas APRN, CNS, DNP - 05/29/2025 11:26 PM EDTAssociated Problem(s): BMI 25.0-25.9,adult (Deleted) Body mass index is 27.09 kg/m??. -complicates aspects of care * Assessment & Plan Note - Gabby Duenas APRN, CNS, DNP - 05/29/2025 11:26 PM EDTAssociated Problem(s): Hyperlipidemia - statin * Assessment & Plan Note - Gabby Duenas APRN, CNS, DNP - 05/29/2025 11:26 PM EDTAssociated Problem(s): COPD (chronic obstructive pulmonary disease) ([facility]) -on mechanically assisted ventilation, expected s/p AAA repair, and root replace - evaluate for extubation - PS when mental status allows * Assessment & Plan Note - Gabby Duenas APRN, CNS, DNP - 05/29/2025 11:26 PM EDTAssociated Problem(s): H/O aortic arch replacement -05/27: Ascending aortic and arch aneurysm repair with ascending aortic replacement using a 28 Hemashield graft and aortic arch replacement using a 32 Hemashield tube graft with deep circulatory arrestusing bilateral antegrade cerebral perfusion and de-branching of the innominate artery and the leftcarotid artery with valve sparing * Assessment & Plan Note - Gabby Duenas APRN, CNS, DNP - 05/29/2025 11:26 PM EDTAssociated Problem(s): H/O ascending aortic replacement -05/27: Ascending aortic and arch aneurysm repair with ascending aortic replacement using a 28 Hemashield graft and aortic arch replacement using a 32 Hemashield tube graft with deep circulatory arrestusing bilateral antegrade cerebral perfusion and de-branching of the innominate artery and the leftcarotid artery with valve sparing * Assessment & Plan Note - Gabby Duenas APRN, CNS, DNP - 05/29/2025 11:26 PM EDTAssociated Problem(s): H/O transcarotid artery revascularization (TCAR) -02/2025 * Assessment & Plan Note - Gabby Duenas APRN, CNS, DNP - 05/29/2025 11:26 PM EDTAssociated Problem(s): Hypokalemia -Monitor per protocol and replaced as indicated * Assessment & Plan Note - Gabby Duenas APRN, CNS, DNP - 05/29/2025 11:26 PM EDTAssociated Problem(s): Cardiac volume overload (Resolved 06/07/2025) Diurese as indicated * Assessment & Plan Note - Gabby Duenas APRN, CNS, DNP - 05/29/2025 11:26 PM EDTAssociated Problem(s): Leukocytosis Monitor post op likely reactive * Assessment & Plan Note - Gabby Duenas APRN, CNS, DNP - 05/29/2025 11:26 PM EDTAssociated Problem(s): Agitation requiring sedation protocol (Resolved 06/02/2025) On propofol post op while on mechanical vent, attempted transition to precedex 05/28 pt increasinglyagitated trying to sit up in bed Will onboard enteral agents as able Pt on Xanax at home * Assessment & Plan Note - Gabby Duenas APRN, CNS, DNP - 05/29/2025 11:26 PM EDTAssociated Problem(s): Delirium due to multiple etiologies (Resolved 06/07/2025) -Seroquel 25 BID * Progress Notes - Gabby Duenas APRN, CNS, DNP - 05/29/2025 11:24 PM EDT Associated Order(s): Critical Care Post-Procedure Diagnose(s): H/O aortic arch replacement; H/O ascending aortic replacement; Agitation requiring sedation protocol; Delirium due to multiple etiologies; Poorly-controlled hypertension; 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 ([facility]) Critical Care Performed by: Gabby Duenas APRN, CNS, DNP Authorized by: Gabby Duenas APRN, ANA MARIA, ANAYA Critical care provider statement: Critical care time (minutes): 66 Critical care was time spent personally by me on the following activities: Development of treatmentplan with patient or surrogate, discussions with consultants, discussions with primary provider, evaluation of patient's response to treatment, examination of patient, ordering and performing treatments and interventions, ordering and review of laboratory studies, ordering and review of radiographic studies, review of old charts and ventilator management Comments: The patient is critically ill with: s/p aortic arch replacement, ascending aortic replacement, COPD, HTN. They require complex decision making. The patient was seen on rounds with critical care physician, Dr. Jaime De Paz DO and they are in agreement with the plan of care. Pharmacy, respiratory and nursing services were present on rounds. 05/29/25 Joi Marcial is a 70 y.o. 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 If applicable, patient is s/p Procedure(s) and Anesthesia Type: * Ascending Aortic Replacement, Hemiarch, Circulatory Arrest, Aortic Arch Debranching - General. Patient is 2 Days Post-Op with Cardiothoracic Surgery. Past 24 hours: PM: Wean sedation & PS trial in AM. Escalated bowel regimen. AM: Holding Plov this AM with plts, 20 IV Lasix and 1400 Lytes, wean vent and PS trial when appropriate, DHT place and TF started, Seroquel 25 BID, labile BP--given 250 mg 5% albumin. On and Off Levophed, dilaudid gtt stopped, PRN Dilaudid IV Edited by: Ludwig Chavis MD at 05/29/2025 2140 Lines/Drains/Tubes: Patient Lines/Drains/Airways Status Active Active LDAs Name Placement date Placement time Site Days CVC Single Lumen 05/27/25 Right Internal jugular 05/27/25 0740 Internal jugular 2 CVC Double Lumen 05/27/25 Right Internal jugular 05/27/25 0740 Internal jugular 2 Peripheral IV 05/27/25 Right Antecubital 05/27/25 0655 Antecubital 2 Chest Tube 3 Right Pleural 32 Fr 05/27/25 1702 Pleural 2 Urethral Catheter Non-latex;Temperature probe 16 Fr. 05/27/25 0725 -- 2 Y Chest Tube 1 and 2 Anterior Mediastinal 32 Fr. Anterior Mediastinal 32 Fr. 05/27/25 1700 -- 2 ETT ETT - single 8 mm 05/27/25 0725 Oral 2 Arterial Line 05/27/25 Right Radial 05/27/25 0729 Radial 2 Pulmonary Artery Catheter 05/27/25 Internal jugular Right 05/27/25 0740 Internal jugular 2 Feeding Tube Gastric 10 Fr. Right nare 05/29/25 1215 Right nare less than 1 Negative Pressure Wound Therapy Sternum 05/27/25 1749 Sternum 2 GCS: [employer] Coma Scale Score: 9 Review of Systems All other systems reviewed and are negative. 14 point ROS reviewed and otherwise negative or unobtainable except as noted above or in HPI. Vital signs: Vitals: 05/29/25 2200 BP: Pulse: 81 Resp: 12 Temp: 37.9 ??C (100.2 ??F) SpO2: 96% Intake/Output Summary (Last 24 hours) at 05/29/2025 2324 Last data filed at 05/29/2025 2200 Gross per 24 hour Intake 1401.41 ml Output 2860 ml Net -1458.59 ml Physical Exam: Sedation was held for the purposes of examination. Physical Exam Vitals and nursing note reviewed. HENT: Head: Normocephalic. Nose: Nose normal. Mouth/Throat: Mouth: Mucous membranes are dry. Eyes: Pupils: Pupils are equal, round, and reactive to light. Comments: R pupil SR Cardiovascular: Rate and Rhythm: Normal rate and regular rhythm. Pulmonary: Effort: Pulmonary effort is normal. Breath sounds: Normal breath sounds. Comments: OETT Abdominal: General: Bowel sounds are normal. Palpations: Abdomen is soft. Musculoskeletal: Cervical back: Neck supple. Right lower leg: Edema (trace) present. Left lower leg: Edema (trace) present. Skin: General: Skin is warm and dry. Capillary Refill: Capillary refill takes less than 2 seconds. Findings: Bruising present. Comments: Midline sternotomy/prevena Chest tubes CDI Wires CDI Neurological: General: No focal deficit present. GCS: GCS eye subscore is 3. GCS verbal subscore is 1. GCS motor subscore is 5. Motor: Weakness present. Comments: Sedated propofol Psychiatric: Behavior: Behavior is uncooperative. Judgment: Judgment is impulsive and inappropriate. Labs in last 18 hours: CBC WBC ?? Hb ?? Plt ?? Hct ?? ANC ?? INR ??, PTT ??, Anti-Xa ?? BMP Na 146 (H) Cl 109 (H) BUN 26 (H) Glu 105 (H) K 3.5 (L) Co2 27 Cr 0.73 Ca 8.7 (L) iCa ?? Mg 2.2, Phos 2.3 (L) Lactate ?? LFT AST ?? AlkPhos ?? T Prot ?? ALK ?? Bili ?? Alb ?? D.Bili ?? Imaging as available: === 05/27/25 === XR ABDOMEN 1 VIEW - Narrative - CLINICAL INDICATION: Post DHT placement TECHNIQUE: Supine radiograph of the abdomen. COMPARISON: Abdominal radiograph dated 05/27/2025. Chest x-ray 05/29/2025. CT 01/14/2025 FINDINGS: Limited [id number] abdominal radiograph for the purpose of locating tube position. The tip of the feeding tube is within the proximal duodenum. - Impression - The tip of the feeding tube is within the proximal duodenum CRITICAL RESULT: No. COMMUNICATION: Per this written report. By electronically signing this report, I, the attending physician, attest that I have personally reviewed the images/data for the above examination(s) and agree with the final edited report. Drafted by Doyle Sawant III, MD on 05/29/2025 1:45 PM Final report signed by Jerry Bearden MD on 05/29/2025 4:09 PM Reviewed and agree with above. Assessment and Plan: This patient is critically ill. 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 -complicates aspects of care Hyperlipidemia Present on Admission: Yes - statin COPD (chronic obstructive pulmonary disease) (CMS/HCC) Present on Admission: Yes -on mechanically assisted ventilation, expected s/p AAA repair, and root replace - evaluate for extubation - PS when mental status allows H/O aortic arch replacement Present on Admission: Not Applicable -05/27: Ascending aortic and arch aneurysm repair with ascending aortic replacement using a 28 Hemashield graft and aortic arch replacement using a 32 Hemashield tube graft with deep circulatory arrestusing bilateral antegrade cerebral perfusion and de-branching of the innominate artery and the leftcarotid artery with valve sparing H/O ascending aortic replacement Present on Admission: Not Applicable -05/27: Ascending aortic and arch aneurysm repair with ascending aortic replacement using a 28 Hemashield graft and aortic arch replacement using a 32 Hemashield tube graft with deep circulatory arrestusing bilateral antegrade cerebral perfusion and de-branching of the innominate artery and the leftcarotid artery with valve sparing H/O transcarotid artery revascularization (TCAR) Present on Admission: Not Applicable -02/2025 Hypokalemia Present on Admission: No -Monitor per protocol and replaced as indicated Cardiac volume overload Present on Admission: No Diurese as indicated Leukocytosis Present on Admission: No Monitor post op likely reactive Agitation requiring sedation protocol Present on Admission: No On propofol post op while on mechanical vent, attempted transition to precedex 05/28 pt increasinglyagitated trying to sit up in bed Will onboard enteral agents as able Pt on Xanax at home Delirium due to multiple etiologies Present on Admission: No -Seroquel 25 BID Non-Hospital Problems Peripheral vascular disease (CMS/HCC) (Chronic) Asymptomatic stenosis of right carotid artery Gabby Duenas APRN, ANA MARIA, DNP * Care Plan - Nicole Vargas - 05/29/2025 8:49 PM EDT Problem: Mechanical Ventilation Invasive Goal: Optimal Device Function Outcome: Ongoing, Progressing Intervention: Optimize Device Care and Function Flowsheets (Taken 05/29/20252048) Airway/Ventilation Management: airway patency maintained oxygen therapy provided pulmonary hygiene promoted humidification applied positive pressure ventilation provided Airway Safety Measures: mask valve resuscitator at bedside manual resuscitator/mask at bedside oxygen flowmeter at bedside suction at bedside high-efficiency antimicrobial filters maintained * Care Plan - Roxie Chacon I RN - 05/29/2025 6:29 PM EDT Problem: Adult Inpatient Plan of Care Goal: Plan of Care Review Outcome: Ongoing, Progressing Goal: Patient-Specific Goal (Individualized) Outcome: Ongoing, Progressing Goal: Absence of Hospital-Acquired Illness or Injury Outcome: Ongoing, Progressing Intervention: Prevent Infection Flowsheets (Taken 05/29/20251825) Infection Prevention: environmental surveillance performed Goal: Optimal Comfort and Wellbeing Outcome: Ongoing, Progressing Intervention: Provide Person-Centered Care Flowsheets (Taken 05/29/20251825) Trust Relationship/Rapport: care explained choices provided Problem: Infection Goal: Absence of Infection Signs and Symptoms Outcome: Ongoing, Progressing Intervention: Prevent or Manage Infection Flowsheets (Taken 05/29/20251825) Infection Management: aseptic technique maintained Fever Reduction/Comfort Measures: lightweight bedding lightweight clothing Problem: Mechanical Ventilation Invasive Goal: Effective Communication Outcome: Ongoing, Progressing Intervention: Ensure Effective Communication Flowsheets (Taken 05/29/20251825) Trust Relationship/Rapport: care explained choices provided Diversional Activities: television Communication Enhancement Strategies: family involved in communication plan Goal: Optimal Device Function Outcome: Ongoing, Progressing Intervention: Optimize Device Care and Function Flowsheets (Taken 05/29/20251825) Airway/Ventilation Management: airway patency maintained Airway Safety Measures: mask valve resuscitator at bedside oxygen flowmeter at bedside Goal: Mechanical Ventilation Liberation Outcome: Ongoing, Progressing Intervention: Promote Extubation and Mechanical Ventilation Liberation Flowsheets (Taken 05/29/20251825) Environmental Support: calm environment promoted Sleep/Rest Enhancement: awakenings minimized Medication Review/Management: medications reviewed Goal: Optimal Nutrition Delivery Outcome: Ongoing, Progressing Intervention: Optimize Nutrition Delivery Flowsheets (Taken 05/29/20251825) Nutrition Support Management: tube feeding initiated Goal: Absence of Device-Related Skin and Tissue Injury Outcome: Ongoing, Progressing Intervention: Maintain Skin and Tissue Health Flowsheets (Taken 05/29/20251825) Device Skin Pressure Protection: absorbent pad utilized/changed Goal: Absence of Ventilator-Induced Lung Injury Outcome: Ongoing, Progressing Intervention: Facilitate Lung-Protection Measures Flowsheets (Taken 05/29/20251825) Lung Protection Measures: fluid excess minimized Problem: Skin Injury Risk Increased Goal: Skin Health and Integrity Outcome: Ongoing, Progressing Intervention: Promote and Optimize Oral Intake Flowsheets (Taken 05/29/20251825) Nutrition Interventions: diet advanced Problem: Restraint, Nonviolent Goal: Absence of Harm or Injury Outcome: Ongoing, Progressing Intervention: Implement Least Restrictive Safety Strategies Flowsheets (Taken 05/29/20251825) Rotational Moulding Operator Protection: tubing secured Diversional Activities: television Intervention: Protect Dignity, Rights and Personal Wellbeing Flowsheets (Taken 05/29/20251825) Trust Relationship/Rapport: care explained choices provided Problem: Cardiovascular Surgery Goal: Effective Bowel Elimination Outcome: Ongoing, Progressing Intervention: Enhance Bowel Motility and Elimination Flowsheets (Taken 05/28/20251824) Bowel Elimination Management: hygiene measures promoted Goal: Effective Cardiac Function Outcome: Ongoing, Progressing Intervention: Optimize Cardiac Output and Blood Flow Flowsheets Taken 05/29/20251825 Stabilization Measures: fluid resuscitation initiated Taken 05/28/20251824 Dysrhythmia Management: pacing wires maintained Goal: Optimal Cerebral Tissue Perfusion Outcome: Ongoing, Progressing Intervention: Protect and Optimize Cerebral Perfusion Flowsheets Taken 05/29/20251825 Fever Reduction/Comfort Measures: lightweight bedding lightweight clothing Taken 05/28/20251824 Cerebral Perfusion Promotion: blood pressure monitored Goal: Fluid and Electrolyte Balance Outcome: Ongoing, Progressing Intervention: Monitor and Manage Fluid and Electrolyte Balance Flowsheets (Taken 05/28/20251824) Fluid/Electrolyte Management: fluids provided Goal: Acceptable Pain Control Outcome: Ongoing, Progressing Intervention: Prevent or Manage Pain Flowsheets (Taken 05/29/20251825) Diversional Activities: television Goal: Effective Urinary Elimination Outcome: Ongoing, Progressing Intervention: Monitor and Manage Urinary Retention Flowsheets (Taken 05/29/20251825) Urinary Elimination Promotion: catheter patency maintained * Progress Notes - Merary Abbott - 05/29/2025 3:21 PM EDT Case Management Adult Progress Note Joi Marcial 70 y.o. 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 Will continue to follow and try again. 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 -complicates aspects of care * Assessment & Plan Note - Nidia Vance APRN - 05/29/2025 2:53 PM EDT Associated Problem(s): Hyperlipidemia - statin * Assessment & Plan Note - Nidia Vance APRN - 05/29/2025 2:53 PM EDT Associated Problem(s): COPD (chronic obstructive pulmonary disease) ([facility]) -on mechanically assisted ventilation, expected s/p AAA repair, and root replace - evaluate for extubation - PS when mental status allows * Assessment & Plan Note - Nidia Vance APRN - 05/29/2025 2:53 PM EDT Associated Problem(s): H/O aortic arch replacement -05/27: Ascending aortic and arch aneurysm repair with ascending aortic replacement using a 28 Hemashield graft and aortic arch replacement using a 32 Hemashield tube graft with deep circulatory arrestusing bilateral antegrade cerebral perfusion and de-branching of the innominate artery and the leftcarotid artery with valve sparing * Assessment & Plan Note - Nidia Vance APRN - 05/29/2025 2:53 PM EDT Associated Problem(s): H/O ascending aortic replacement -05/27: Ascending aortic and arch aneurysm repair with ascending aortic replacement using a 28 Hemashield graft and aortic arch replacement using a 32 Hemashield tube graft with deep circulatory arrestusing bilateral antegrade cerebral perfusion and de-branching of the innominate artery and the leftcarotid artery with valve sparing * Assessment & Plan Note - Nidia Vance APRN - 05/29/2025 2:53 PM EDT Associated Problem(s): H/O transcarotid artery revascularization (TCAR) -02/2025 * Assessment & Plan Note - Nidia Vance APRN - 05/29/2025 2:53 PM EDT Associated Problem(s): Hypokalemia -Monitor per protocol and replaced as indicated * Assessment & Plan Note - Nidia Vance APRN - 05/29/2025 2:53 PM EDT Associated Problem(s): Cardiac volume overload (Resolved 06/07/2025) Diurese as indicated * Assessment & Plan Note - Nidia Vance APRN - 05/29/2025 2:53 PM EDT Associated Problem(s): Leukocytosis Monitor post op likely reactive * Assessment & Plan Note - Nidia Vance APRN - 05/29/2025 2:53 PM EDT Associated Problem(s): Agitation requiring sedation protocol (Resolved 06/02/2025) On propofol post op while on mechanical vent, attempted transition to precedex 05/28 pt increasinglyagitated trying to sit up in bed Will onboard enteral agents as able Pt on Xanax at home * Assessment & Plan Note - Nidia Vance APRN - 05/29/2025 2:53 PM EDT Associated Problem(s): Delirium due to multiple etiologies (Resolved 06/07/2025) -Seroquel 25 BID * Progress Notes - Nidia Vance APRN - 05/29/2025 2:33 PM EDTAssociated Order(s): Critical Care Post-Procedure Diagnose(s): BMI 25.0-25.9,adult; Cerebral venous sinus thrombosis; H/O ascending aortic replacement; Agitation requiring sedation protocol; Delirium due to multiple etiologies; Chronic obstructive pulmonary disease, unspecified COPD type ([facility]/HCC); History of right common carotid artery stent placement; Cardiac volume overload; Aneurysm of descending thoracic aorta without rupture([facility]/HCC) Critical Care Performed by: Nidia Vance APRN Authorized by: Nidia Vance APRN Critical care provider statement: Critical care time (minutes): 65 Critical care time was exclusive of: Separately billable procedures and treating other patients Critical care was time spent personally by me on the following activities: Development of treatmentplan with patient or surrogate, ordering and performing treatments and interventions, ordering and review of laboratory studies, ordering and review of radiographic studies, ventilator management, obtaining history from patient or surrogate, examination of patient, evaluation of patient's response to treatment, discussions with consultants, discussions with primary provider and review of old charts I assumed subsequent critical care for this patient from a provider in my division, on the same day: yes Comments: The patient is critically ill with: acute resp failure on mechanical vent, on levophed, encephalopathy. They require complex decision making. The patient was seen on rounds with critical care physician, Dr. Roberts and they are in agreement with the plan of care. Pharmacy, respiratory and nursing services were present on rounds. 05/29/25 Joi Marcial is a 70 y.o. 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 If applicable, patient is s/p Procedure(s) and Anesthesia Type: * Ascending Aortic Replacement, Hemiarch, Circulatory Arrest, Aortic Arch Debranching - General. Patient is 2 Days Post-Op with Cardiothoracic Surgery. Past 24 hours: PM: Remains on propofol and dilaudid. Remains intubated, wean vent as tolerated. Low dose levophed. AM: Holding Plov this AM with plts, 20 IV Lasix and 1400 Lytes, wean vent and PS trial when appropriate, DHT place and TF started, Seroquel 25 BID, labile BP--given 250 mg 5% albumin. Edited by: Nidia Vance APRN at 05/29/2025 1433 Lines/Drains/Tubes: Patient Lines/Drains/Airways Status Active Active LDAs Name Placement date Placement time Site Days CVC Single Lumen 05/27/25 Right Internal jugular 05/27/25 0740 Internal jugular 2 CVC Double Lumen 05/27/25 Right Internal jugular 05/27/25 0740 Internal jugular 2 Peripheral IV 05/27/25 Right Antecubital 05/27/25 0655 Antecubital 2 Chest Tube 3 Right Pleural 32 Fr 05/27/25 1702 Pleural 1 Urethral Catheter Non-latex;Temperature probe 16 Fr. 05/27/25 0725 -- 2 Y Chest Tube 1 and 2 Anterior Mediastinal 32 Fr. Anterior Mediastinal 32 Fr. 05/27/25 1700 -- 1 ETT ETT - single 8 mm 05/27/25 0725 Oral 2 Arterial Line 05/27/25 Right Radial 05/27/25 0729 Radial 2 Pulmonary Artery Catheter 05/27/25 Internal jugular Right 05/27/25 0740 Internal jugular 2 Feeding Tube Gastric 10 Fr. Right nare 05/29/25 1215 Right nare less than 1 Negative Pressure Wound Therapy Sternum 05/27/25 1749 Sternum 1 GCS: [employer] Coma Scale Score: 9 Review of Systems 14 point ROS reviewed and otherwise negative or unobtainable except as noted above or in HPI. Vital signs: Vitals: 05/29/25 1420 BP: Pulse: 78 Resp: 15 Temp: 37.9 ??C (100.2 ??F) SpO2: 98% Intake/Output Summary (Last 24 hours) at 05/29/2025 1433 Last data filed at 05/29/2025 1200 Gross per 24 hour Intake 1441.54 ml Output 3331 ml Net -1889.46 ml Physical Exam Vitals and nursing note reviewed. HENT: Head: Normocephalic. Nose: Nose normal. Mouth/Throat: Mouth: Mucous membranes are dry. Eyes: Pupils: Pupils are equal, round, and reactive to light. Comments: R pupil SR Cardiovascular: Rate and Rhythm: Normal rate and regular rhythm. Pulmonary: Effort: Pulmonary effort is normal. Breath sounds: Normal breath sounds. Comments: OETT Abdominal: General: Bowel sounds are normal. Palpations: Abdomen is soft. Musculoskeletal: Cervical back: Neck supple. Right lower leg: Edema (trace) present. Left lower leg: Edema (trace) present. Skin: General: Skin is warm and dry. Capillary Refill: Capillary refill takes less than 2 seconds. Findings: Bruising present. Comments: Midline sternotomy/prevena Chest tubes CDI Wires CDI Neurological: General: No focal deficit present. GCS: GCS eye subscore is 3. GCS verbal subscore is 1. GCS motor subscore is 5. Motor: Weakness present. Comments: Sedated propofol Psychiatric: Behavior: Behavior is uncooperative. Judgment: Judgment is impulsive and inappropriate. Results Review I have reviewed the latest lab and imaging results. Assessment and Plan: This patient is critically ill. 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 -complicates aspects of care Hyperlipidemia Present on Admission: Yes - statin COPD (chronic obstructive pulmonary disease) (CMS/HCC) Present on Admission: Yes -on mechanically assisted ventilation, expected s/p AAA repair, and root replace - evaluate for extubation - PS when mental status allows H/O aortic arch replacement Present on Admission: Not Applicable -05/27: Ascending aortic and arch aneurysm repair with ascending aortic replacement using a 28 Hemashield graft and aortic arch replacement using a 32 Hemashield tube graft with deep circulatory arrestusing bilateral antegrade cerebral perfusion and de-branching of the innominate artery and the leftcarotid artery with valve sparing H/O ascending aortic replacement Present on Admission: Not Applicable -05/27: Ascending aortic and arch aneurysm repair with ascending aortic replacement using a 28 Hemashield graft and aortic arch replacement using a 32 Hemashield tube graft with deep circulatory arrestusing bilateral antegrade cerebral perfusion and de-branching of the innominate artery and the leftcarotid artery with valve sparing H/O transcarotid artery revascularization (TCAR) Present on Admission: Not Applicable -02/2025 Hypokalemia Present on Admission: No -Monitor per protocol and replaced as indicated Cardiac volume overload Present on Admission: No Diurese as indicated Leukocytosis Present on Admission: No Monitor post op likely reactive Agitation requiring sedation protocol Present on Admission: No On propofol post op while on mechanical vent, attempted transition to precedex 05/28 pt increasinglyagitated trying to sit up in bed Will onboard enteral agents as able Pt on Xanax at home Delirium due to multiple etiologies Present on Admission: No -Seroquel 25 BID Non-Hospital Problems Peripheral vascular disease (CMS/HCC) (Chronic) Asymptomatic stenosis of right carotid artery Nidia Vance APRN Cosigned by Jose C Nicholson MD at 05/31/2025 12:03 PM EDT Associated attestation - Jose C Nicholson MD - 05/31/2025 12:03 PM EDT Seen and examined and records reviewed and discussed with the ICU team on multidisciplinary rounds and discussion I agree with Miss Vance note and plan. * Clinician Note - Ronit Gonzalez - 05/29/2025 11:20 AM EDT Occupational Therapy Attempt Patient Name: Joi Marcial Today's Date: 05/29/2025 Patient was attempted to be seen by occupational therapy 05/29/2025 for OT Evaluation however patient not appropriate due to medical status. Occupational therapy team will follow-up when medically appropriate. Written by Ronit Gonzalez on 05/29/25 at 11:20 AM. * Care Plan - Arturo Boswell - 05/29/2025 7:42 AM EDT Problem: Mechanical Ventilation Invasive Goal: Optimal Device Function Outcome: Ongoing, Progressing * Clinician Note - Sarah Schroeder - 05/29/2025 7:19 AM EDT Physical Therapy Attempt Patient Name: Joi Marcial Today's Date: 05/29/2025 Patient was attempted to be seen by physical therapy 05/29/2025 for PT Evaluation however patient not appropriate due to medical status. Physical therapy team will follow-up when medically appropriate. Written by Sarah Schroeder on 05/29/25 at 7:19 AM. 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); H/O transcarotid artery revascularization (TCAR) Critical Care Performed by: Gabby Duenas APRN, CNS, DNP Authorized by: Gabby Duenas APRN, CNS, DNP Critical care provider statement: Critical care time (minutes): 66 Critical care was time spent personally by me on the following activities: Development of treatmentplan with patient or surrogate, discussions with consultants, discussions with primary provider, evaluation of patient's response to treatment, examination of patient, ordering and performing treatments and interventions, ordering and review of laboratory studies, ordering and review of radiographic studies, ventilator management and review of old charts Comments: The patient is critically ill with: s/p aortic arch replacement, ascending aortic replacement, COPD, HTN. They require complex decision making. The patient was seen on rounds with critical care physician, Dr. Jaime De Paz DO and they are in agreement with the plan of care. Pharmacy, respiratory and nursing services were present on rounds. 05/29/25 Joi Marcial HPI Joi Marcial is a 70 y.o. 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 If applicable, patient is s/p Procedure(s) and Anesthesia Type: * Ascending Aortic Replacement, Hemiarch, Circulatory Arrest, Aortic Arch Debranching - General. Patient is 2 Days Post-Op with Cardiothoracic Surgery. Past 24 hours: PM: Remains on propofol and dilaudid. Remains intubated, wean vent as tolerated. AM: Fem line removed this AM. Wean vent to extubate, vistaril given and later 0.25 of xanax Q 8 in efforts to wean. Off NTG/Cleviprex. 1 Dose of 40 IV lasix. Start Statin, DVT prophylaxis and ASA. Later post diuretic and approx 700 out pt and transition to precedex increasingly hypotensive, x2 given, paced at rate of 90, Levo started. Fio2 increased to 100% during this time. Since weaned to 70%. 1 unit RBC followup H and H 1800. Stop hydral. Edited by: Gabby Duenas, SAP PP CONSULTANT, WEED COOKING OPERATOR, DNP at 05/29/2025 0045 Lines/Drains/Tubes: Patient Lines/Drains/Airways Status Active Active LDAs Name Placement date Placement time Site Days CVC Single Lumen 05/27/25 Right Internal jugular 05/27/25 0740 Internal jugular 1 CVC Double Lumen 05/27/25 Right Internal jugular 05/27/25 0740 Internal jugular 1 Peripheral IV 05/27/25 Right Antecubital 05/27/25 0655 Antecubital 1 Chest Tube 3 Right Pleural 32 Fr 05/27/25 1702 Pleural 1 Urethral Catheter Non-latex;Temperature probe 16 Fr. 05/27/25 0725 -- 1 Y Chest Tube 1 and 2 Anterior Mediastinal 32 Fr. Anterior Mediastinal 32 Fr. 05/27/25 1700 -- 1 NG/OG [place] [facility] mouth 05/27/25 0900 Center mouth 1 ETT ETT - single 8 mm 05/27/25 0725 Oral 1 Arterial Line 05/27/25 Right Radial 05/27/25 0729 Radial 1 Pulmonary Artery Catheter 05/27/25 Internal jugular Right 05/27/25 0740 Internal jugular 1 Negative Pressure Wound Therapy Sternum 05/27/25 1749 Sternum 1 GCS: [employer] Coma Scale Score: 8 Review of Systems All other systems reviewed and are negative. 14 point ROS reviewed and otherwise negative or unobtainable except as noted above or in HPI. Vital signs: Vitals: 05/29/25 0000 BP: Pulse: 70 Resp: 9 Temp: 37.6 ??C (99.7 ??F) SpO2: 100% Intake/Output Summary (Last 24 hours) at 05/29/2025 0045 Last data filed at 05/28/2025 2200 Gross per 24 hour Intake 2240.7 ml Output 3506 ml Net -1265.3 ml Physical Exam: Sedation was held for the purposes of examination. Physical Exam Vitals and nursing note reviewed. HENT: Head: Normocephalic. Nose: Nose normal. Mouth/Throat: Mouth: Mucous membranes are dry. Eyes: Pupils: Pupils are equal, round, and reactive to light. Comments: R pupil SR Cardiovascular: Rate and Rhythm: Normal rate and regular rhythm. Pulmonary: Effort: Pulmonary effort is normal. Breath sounds: Normal breath sounds. Abdominal: General: Bowel sounds are normal. Palpations: Abdomen is soft. Musculoskeletal: Cervical back: Neck supple. Right lower leg: No edema. Left lower leg: No edema. Skin: General: Skin is warm and dry. Capillary Refill: Capillary refill takes less than 2 seconds. Neurological: Comments: On sedation initially 3T, later in shift awoke, agitated NICHOLAS not purposeful however afterseveral attempt did nod head approp to nursing questioning Psychiatric: Behavior: Behavior is uncooperative. Judgment: Judgment is impulsive and inappropriate. Labs in last 18 hours: CBC WBC 9.98 Hb 10.0 (L) Plt 108 (L) Hct 29.1 (L) ANC ?? INR ??, PTT ??, Anti-Xa ?? BMP Na 147 (H) Cl 107 BUN 26 (H) Glu 132 (H) K 3.7 Co2 24 Cr 0.88 Ca 10.2 iCa 4.7 Mg 2.8 (H), Phos 4.7 (H) Lactate 1.3 LFT AST ?? AlkPhos ?? T Prot ?? ALK ?? Bili ?? Alb ?? D.Bili ?? Imaging as available: === 05/27/25 === XR CHEST 1 VIEW - Narrative - CLINICAL INDICATION: Post-Op Cardiac Surgery TECHNIQUE: XR CHEST 1 VIEW COMPARISON: 05/27/2025. FINDINGS: Hardware stable. Aeration is not significantly changed. No overt pneumothorax. Trace pleural effusions. - Impression - No significant interval change. CRITICAL RESULT: No. COMMUNICATION: Per this written report. Drafted by Les Steele MD on 05/28/2025 6:28 AM Final report signed by Les Steele MD on 05/28/2025 6:29 AM Reviewed and agree with above. Assessment and Plan: This patient is critically ill. 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) Present on Admission: Yes -will need procedure with vascular surgery Poorly-controlled hypertension Present on Admission: Yes -on cleveprex and nitroglycerin - started hydral 10 TID BMI 25.0-25.9,adult Present on Admission: Not Applicable -complicates aspects of care Hyperlipidemia Present on Admission: Yes - start statin COPD (chronic obstructive pulmonary disease) (CMS/HCC) Present on Admission: Yes -on mechanically assisted ventilation, expected s/p AAA repair, and root replace - evaluate for extubation H/O aortic arch replacement Present on Admission: Not Applicable -05/27: Ascending aortic and arch aneurysm repair with ascending aortic replacement using a 28 Hemashield graft and aortic arch replacement using a 32 Hemashield tube graft with deep circulatory arrestusing bilateral antegrade cerebral perfusion and de-branching of the innominate artery and the leftcarotid artery with valve sparing H/O ascending aortic replacement Present on Admission: Not Applicable -05/27: Ascending aortic and arch aneurysm repair with ascending aortic replacement using a 28 Hemashield graft and aortic arch replacement using a 32 Hemashield tube graft with deep circulatory arrestusing bilateral antegrade cerebral perfusion and de-branching of the innominate artery and the leftcarotid artery with valve sparing H/O transcarotid artery revascularization (TCAR) Present on Admission: Not Applicable -02/2025 Hypokalemia Present on Admission: Unknown -Monitor per protocol and replaced as indicated Cardiac volume overload Present on Admission: Unknown Diurese as indicated Leukocytosis Present on Admission: Unknown Monitor post op likely reactive Agitation requiring sedation protocol Present on Admission: Unknown On propofol post op while on mechanical vent, attempted transition to precedex 05/28 pt increasinglyagitated trying to sit up in bed Will onboard enteral agents as able Pt on Xanax at home Non-Hospital Problems Peripheral vascular disease (CMS/HCC) (Chronic) Asymptomatic stenosis of right carotid artery Gabby Duenas APRN, CNS, DNP * Care Plan - Nikolas Ramachandran - 05/28/2025 10:37 PM EDT Problem: Mechanical Ventilation Invasive Goal: Effective Communication Outcome: Ongoing, Progressing Goal: Optimal Device Function Outcome: Ongoing, Progressing Goal: Mechanical Ventilation Liberation Outcome: Ongoing, Progressing Goal: Absence of Device-Related Skin and Tissue Injury Outcome: Ongoing, Progressing Goal: Absence of Ventilator-Induced Lung Injury Outcome: Ongoing, Progressing * Assessment & Plan Note - Gabby Duenas APRN, CNS, DNP - 05/28/2025 9:27 PM EDTAssociated Problem(s): 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) -will need procedure with vascular surgery * Assessment & Plan Note - Gabby Duenas APRN, CNS, DNP - 05/28/2025 9:27 PM EDTAssociated Problem(s): Poorly-controlled hypertension -on cleveprex and nitroglycerin - started hydral 10 TID * Assessment & Plan Note - Gabby Duenas APRN, CNS, DNP - 05/28/2025 9:27 PM EDTAssociated Problem(s): BMI 25.0-25.9,adult (Deleted) -complicates aspects of care * Assessment & Plan Note - Gabby Duenas APRN, CNS, DNP - 05/28/2025 9:27 PM EDTAssociated Problem(s): Hyperlipidemia - start statin * Assessment & Plan Note - Gabby Duenas APRN, CNS, DNP - 05/28/2025 9:27 PM EDTAssociated Problem(s): COPD (chronic obstructive pulmonary disease) ([facility]) -on mechanically assisted ventilation, expected s/p AAA repair, and root replace - evaluate for extubation * Assessment & Plan Note - Gabby Duenas APRN, CNS, DNP - 05/28/2025 9:27 PM EDTAssociated Problem(s): H/O aortic arch replacement -05/27: Ascending aortic and arch aneurysm repair with ascending aortic replacement using a 28 Hemashield graft and aortic arch replacement using a 32 Hemashield tube graft with deep circulatory arrestusing bilateral antegrade cerebral perfusion and de-branching of the innominate artery and the leftcarotid artery with valve sparing * Assessment & Plan Note - Gabby Duenas APRN, CNS, DNP - 05/28/2025 9:27 PM EDTAssociated Problem(s): H/O ascending aortic replacement -05/27: Ascending aortic and arch aneurysm repair with ascending aortic replacement using a 28 Hemashield graft and aortic arch replacement using a 32 Hemashield tube graft with deep circulatory arrestusing bilateral antegrade cerebral perfusion and de-branching of the innominate artery and the leftcarotid artery with valve sparing * Assessment & Plan Note - Gbaby Duenas APRN, CNS, DNP - 05/28/2025 9:27 PM EDTAssociated Problem(s): H/O transcarotid artery revascularization (TCAR) -02/2025 * Assessment & Plan Note - Gabby Duenas APRN, CNS, DNP - 05/28/2025 9:27 PM EDTAssociated Problem(s): Hypokalemia -Monitor per protocol and replaced as indicated * Assessment & Plan Note - Gabby Duenas APRN, CNS, DNP - 05/28/2025 9:27 PM EDTAssociated Problem(s): Cardiac volume overload (Resolved 06/07/2025) Diurese as indicated * Assessment & Plan Note - Gabby Duenas APRN, CNS, DNP - 05/28/2025 9:27 PM EDTAssociated Problem(s): Leukocytosis Monitor post op likely reactive * Assessment & Plan Note - Gabby Duenas APRN, CNS, DNP - 05/28/2025 9:27 PM EDTAssociated Problem(s): Agitation requiring sedation protocol (Resolved 06/02/2025) On propofol post op while on mechanical vent, attempted transition to precedex 05/28 pt increasinglyagitated trying to sit up in bed Will onboard enteral agents as able Pt on Xanax at home * Teleconsult - Arturo Waite MD - 05/28/2025 8:14 PM EDT 05/28/25 Joi Aggie Asked by RN to review and reorder restraints. Chart reviewed and patient visualized. Patient has continued need for restraints. Order renewed. Arturo Waite MD * Care Plan - Roxie Chacon RN - 05/28/2025 6:29 PM EDT Problem: Adult Inpatient Plan of Care Goal: Plan of Care Review Outcome: Ongoing, Progressing Goal: Patient-Specific Goal (Individualized) Outcome: Ongoing, Progressing Goal: Absence of Hospital-Acquired Illness or Injury Outcome: Ongoing, Progressing Intervention: Identify and Manage Fall Risk Flowsheets (Taken 05/28/20251824) Safety Promotion/Fall Prevention: activity supervised Intervention: Prevent Infection Flowsheets (Taken 05/28/20251824) Infection Prevention: environmental surveillance performed hand hygiene promoted Goal: Optimal Comfort and Wellbeing Outcome: Ongoing, Progressing Intervention: Provide Person-Centered Care Flowsheets (Taken 05/28/20251824) Trust Relationship/Rapport: care explained choices provided Problem: Infection Goal: Absence of Infection Signs and Symptoms Outcome: Ongoing, Progressing Intervention: Prevent or Manage Infection Flowsheets (Taken 05/28/20251824) Infection Management: aseptic technique maintained Fever Reduction/Comfort Measures: lightweight bedding lightweight clothing Problem: Mechanical Ventilation Invasive Goal: Effective Communication Outcome: Ongoing, Progressing Intervention: Ensure Effective Communication Flowsheets (Taken 05/28/20251824) Trust Relationship/Rapport: care explained choices provided Diversional Activities: television Family/Support System Care: caregiver stress acknowledged involvement promoted Communication Enhancement Strategies: family involved in communication plan Goal: Optimal Device Function Outcome: Ongoing, Progressing Intervention: Optimize Device Care and Function Flowsheets (Taken 05/28/20251824) Airway/Ventilation Management: airway patency maintained Airway Safety Measures: mask valve resuscitator at bedside oxygen flowmeter at bedside suction at bedside Goal: Mechanical Ventilation Liberation Outcome: Ongoing, Progressing Intervention: Promote Extubation and Mechanical Ventilation Liberation Flowsheets (Taken 05/28/20251824) Environmental Support: calm environment promoted Sleep/Rest Enhancement: natural light exposure provided Medication Review/Management: medications reviewed Goal: Optimal Nutrition Delivery Outcome: Ongoing, Progressing Intervention: Optimize Nutrition Delivery Flowsheets (Taken 05/28/20251824) Nutrition Support Management: other (see comments) Note: Discussed during rounds. At this time, will not initiate diet. Goal: Absence of Device-Related Skin and Tissue Injury Outcome: Ongoing, Progressing Intervention: Maintain Skin and Tissue Health Flowsheets (Taken 05/28/20251824) Device Skin Pressure Protection: absorbent pad utilized/changed pressure points protected Goal: Absence of Ventilator-Induced Lung Injury Outcome: Ongoing, Progressing Intervention: Facilitate Lung-Protection Measures Flowsheets (Taken 05/28/20251824) Lung Protection Measures: fluid excess minimized Problem: Skin Injury Risk Increased Goal: Skin Health and Integrity Outcome: Ongoing, Progressing Intervention: Optimize Skin Protection Flowsheets (Taken 05/28/20251824) Pressure Reduction Techniques: pressure points protected weight shift assistance provided Pressure Reduction Devices: foam padding utilized Intervention: Promote and Optimize Oral Intake Flowsheets (Taken 05/28/20251824) Oral Nutrition Promotion: other (see comments) Nutrition Interventions: other (see comments) Note: Pt NPO at this moment, only 24 hours post op. Problem: Restraint, Nonviolent Goal: Absence of Harm or Injury Outcome: Ongoing, Progressing Intervention: Implement Least Restrictive Safety Strategies Flowsheets (Taken 05/28/20251824) Diversional Activities: television Intervention: Protect Dignity, Rights and Personal Wellbeing Flowsheets (Taken 05/28/20251824) Trust Relationship/Rapport: care explained choices provided Problem: Cardiovascular Surgery Goal: Effective Bowel Elimination Outcome: Ongoing, Progressing Intervention: Enhance Bowel Motility and Elimination Flowsheets (Taken 05/28/20251824) Bowel Elimination Management: hygiene measures promoted Bowel Motility Enhancement: other (see comments) Note: Docusate sodium given. Goal: Effective Cardiac Function Outcome: Ongoing, Progressing Intervention: Optimize Cardiac Output and Blood Flow Flowsheets (Taken 05/28/20251824) Stabilization Measures: blood products administered Dysrhythmia Management: pacing wires maintained Goal: Optimal Cerebral Tissue Perfusion Outcome: Ongoing, Progressing Intervention: Protect and Optimize Cerebral Perfusion Flowsheets (Taken 05/28/20251824) Glycemic Management: blood glucose monitored Fever Reduction/Comfort Measures: lightweight bedding lightweight clothing Cerebral Perfusion Promotion: blood pressure monitored Goal: Fluid and Electrolyte Balance Outcome: Ongoing, Progressing Intervention: Monitor and Manage Fluid and Electrolyte Balance Flowsheets (Taken 05/28/20251824) Fluid/Electrolyte Management: fluids provided Note: 500 ml albumin total this shift. Goal: Acceptable Pain Control Outcome: Ongoing, Progressing Intervention: Prevent or Manage Pain Flowsheets (Taken 05/28/20251824) Diversional Activities: television Goal: Effective Urinary Elimination Outcome: Ongoing, Progressing Intervention: Monitor and Manage Urinary Retention Flowsheets (Taken 05/28/20251824) Urinary Elimination Promotion: catheter patency maintained * Consults - Shira Titus RD - 05/28/2025 3:13 PM EDTAssociated Order(s): IP CONSULT TO NUTRITION SERVICES Adult Nutrition Evaluation Note Joi Marcial 70 y.o. female CSN: [id number] Room/Bed 237/237A Nutrition evaluation type: assessment Reason for evaluation: provider consult Hospital course: 70 yo female S/P Ascending Aortic Replacement, Hemiarch, Circulatory Arrest, Aortic Arch Debranching on 05/27. She is currently intubated, on Propofol and NE. Past medical/ surgical history: has a past medical history of Aneurysm (CMS/HCC) (2024), Hyperlipidemia, Hypertension (1989), and Obesity. Social history: Additional comments: 05/28: Discussed on [facility] team rounds. Team is hoping to extubate today. Vitals and Basic Assessment: BP: (!) 113/47 Temp: 37.5 ??C (99.5 ??F) Invasive Ventilator Initiated (ETT/Trach Only): Yes Oxygen Therapy: Supplemental oxygen O2 Delivery Method: Mechanical ventilator Kip Coma Scale Score: 10 John Scale Score: 21 Wilfredo/Cubbin Pressure Risk Score: 25 Allergies: NKA Medications: Current Scheduled Medications[1] Current Continuous Medications[2] Current PRN Medications[3] Propofol 12.8 mL/hr (338 kcal) Meds were reviewed: Yes Labs: Labs in last 18 hours CBC WBC 9.98 Hb 8.7 (L) Plt 108 (L) Hct 25.6 (L) ANC ?? INR ??, PTT ??, Anti-Xa ?? BMP Na 147 (H) Cl 107 BUN 26 (H) Glu 132 (H) K 3.7 Co2 24 Cr 0.88 Ca 10.2 iCa 4.5 (L) Mg 2.8 (H), Phos 4.7 (H) Lactate 3.3 (H) - currently trending up, monitor LFT AST ?? AlkPhos ?? T Prot ?? ALK ?? Bili ?? Alb ?? D.Bili ?? HgA1C 5.4 (05/14) Anthropometrics: Weight: 77 kg (169 lb 12.1 oz) BMI (Calculated): 27.41 Weight Evaluation: Overweight (BMI 25-29.9) [place] Body Weight (kg): 59.1 Percent [place] Body Weight: 120 Estimated Needs: Kcal/ K-20 Kcal Provided: 0061-0863 Kcal Needs Based On: Admit weight (71.2 kg) Gm Protein/ Kg : 1-1.2 Protein Provided: 71-85 Protein Needs Based On: Admit weight (71.2 kg) Metabolic Cart Study Results: Current Nutrition Intake: Diet Order: NPO Diet Experience and Nutrition History: Diet Education Provided: Will monitor Pertinent home medications: [facility] needs: Nutrition Focused Physical Exam: Physical exam performed on (date): 05/28 Temples (muscles): None Clavicle (muscle): None Shoulder (muscle): None Orbital (fat): None Triceps (fat): None Assessment of Malnutrition: Malnutrition Identified: No Nutrition Problem: Inadequate oral intake related to mech vent as evidenced by NPO. Status of Nutrition Diagnosis: New Nutrition Interventions and Recommendations: - TF recommendation if remains intubated: Impact Peptide 1.5 with goal of 35 mL/hr as appropriate (Provides x 22 hrs (770 mL): 1155 kcal (1493 kcal with Propofol), 72 gm prot, 593 mL H2O). - FW per MD team. - MVI daily. Nutrition Monitoring and Goals: - establish source of nutrition - monitor elytes, lactate; TF while on Propofol Acuity Level: [address] [1] aspirin, 81 mg, Oral, Daily atorvastatin, 20 mg, Oral, Nightly calcium gluconate, , , docusate sodium, 100 mg, Oral, BID enoxaparin, 40 mg, Subcutaneous, Daily mupirocin, 1 Application, Each Nostril, BID pantoprazole, 40 mg, Intravenous, Daily PARoxetine, 20 mg, Oral, Daily potassium chloride, 20 mEq, Oral, Once propofol, , , senna, 17.2 mg, Oral, Nightly [2] dexmedetomidine, 0.4-1.4 mcg/kg/hr (Dosing Weight), Last Rate: Stopped (05/28/25 1138) HYDROmorphone, 0.25-2 mg/hr, Last Rate: 0.25 mg/hr (05/28/25 1400) nitroglycerin, 0-2 mcg/kg/min (Dosing Weight), Last Rate: Stopped (05/28/25 1244) norepinephrine, 0-0.4 mcg/kg/min (Dosing Weight), Last Rate: Stopped (05/28/25 1515) propofol, 10-50 mcg/kg/min (Dosing Weight), Last Rate: 30 mcg/kg/min (05/28/25 1400) [3] PRN medications: acetaminophen, albumin human, calcium gluconate, HYDROmorphone OR HYDROmorphone, hydrOXYzine pamoate, ondansetron, oxyCODONE OR oxyCODONE, polyethylene glycol, propofol * Assessment & Plan Note - Yvrose Campbell APRN - 05/28/2025 1:02 PM EDT Associated Problem(s): COPD (chronic obstructive pulmonary disease) ([facility]) -on mechanically assisted ventilation, expected s/p AAA repair, and root replace - evaluate for extubation * Assessment & Plan Note - Yvrose Campbell APRN - 05/28/2025 1:02 PM EDT Associated Problem(s): Cardiac volume overload (Resolved 06/07/2025) Diurese as indicated * Assessment & Plan Note - Yvrose Campbell APRN - 05/28/2025 1:02 PM EDT Associated Problem(s): Hypokalemia -Monitor per protocol and replaced as indicated * Assessment & Plan Note - Yvrose Campbell APRN - 05/28/2025 1:02 PM EDT Associated Problem(s): Leukocytosis Monitor post op likely reactive * Assessment & Plan Note - Yvrose Campbell APRN - 05/28/2025 1:02 PM EDT Associated Problem(s): Agitation requiring sedation protocol (Resolved 06/02/2025) On propofol post op while on mechanical vent, attempted transition to precedex 05/28 pt increasinglyagitated trying to sit up in bed Will onboard enteral agents as able Pt on Xanax at home * Assessment & Plan Note - Yvrose Campbell APRN - 05/28/2025 1:02 PM EDT Associated Problem(s): 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 Nicholson * Assessment & Plan Note - Yvrose Campbell APRN - 05/28/2025 1:02 PM EDT Associated Problem(s): 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) -will need procedure with vascular surgery * Assessment & Plan Note - Yvrose Campbell APRN - 05/28/2025 1:02 PM EDT Associated Problem(s): Poorly-controlled hypertension -on cleveprex and nitroglycerin - started hydral 10 TID * Assessment & Plan Note - Yvrose Campbell APRN - 05/28/2025 1:02 PM EDT Associated Problem(s): BMI 25.0-25.9,adult (Deleted) -complicates aspects of care * Assessment & Plan Note - Yvrose Campbell APRN - 05/28/2025 1:02 PM EDT Associated Problem(s): Hyperlipidemia - start statin * Assessment & Plan Note - Yvrose Campbell APRN - 05/28/2025 1:02 PM EDT Associated Problem(s): H/O aortic arch replacement -05/27: Ascending aortic and arch aneurysm repair with ascending aortic replacement using a 28 Hemashield graft and aortic arch replacement using a 32 Hemashield tube graft with deep circulatory arrestusing bilateral antegrade cerebral perfusion and de-branching of the innominate artery and the leftcarotid artery with valve sparing * Assessment & Plan Note - Yvrose Campbell APRN - 05/28/2025 1:02 PM EDT Associated Problem(s): H/O ascending aortic replacement -05/27: Ascending aortic and arch aneurysm repair with ascending aortic replacement using a 28 Hemashield graft and aortic arch replacement using a 32 Hemashield tube graft with deep circulatory arrestusing bilateral antegrade cerebral perfusion and de-branching of the innominate artery and the leftcarotid artery with valve sparing * Assessment & Plan Note - Yvrose Campbell APRN - 05/28/2025 1:02 PM EDT Associated Problem(s): H/O transcarotid artery revascularization (TCAR) -02/2025 * Progress Notes - Yvrose Campbell APRN - 05/28/2025 12:40 PM EDTAssociated Order(s): Critical Care Post-Procedure Diagnose(s): H/O aortic arch replacement; H/O ascending aortic replacement; Agitation requiring sedation protocol; Poorly-controlled hypertension; Cardiac volume overload; 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); H/O transcarotid artery revascularization (TCAR) Critical Care Performed by: Yvrose Campbell APRN Authorized by: Yvrose Campbell APRN Critical care provider statement: Critical care time (minutes): 110 Critical care was time spent personally by me on the following activities: Ventilator management, ordering and review of radiographic studies, ordering and review of laboratory studies, evaluation ofpatient's response to treatment, obtaining history from patient or surrogate and ordering and performing treatments and interventions Comments: The patient is critically ill with: Ascending aortic and arch aneurysm repair with ascending aorticreplacement per Dr Nicholson 05/27, ongoing mechanical ventilatory support, close monitoring of hemodynamics and volume status. They require complex decision making. The patient was seen on rounds with critical care physician, Dr. Roberts and they are in agreement with the plan of care. Pharmacy, respiratory and nursing services were present on rounds. 05/28/25 Joi Marcial is a 70 y.o. 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 If applicable, patient is s/p Procedure(s) and Anesthesia Type: * Ascending Aortic Replacement, Hemiarch, Circulatory Arrest, Aortic Arch Debranching - General. Patient is 1 Day Post-Op with Cardiothoracic Surgery. Past 24 hours: PM: 250 albumin, started 10 hydral PO TID, leaving intubated overnight for difficulty oxygenating, currently on 80%. On cleveprex @ 16, nitroglycerin @ 0.28 AM: Fem line removed this A. Wean vent to extubate, vistaril given and later 0.25 of xanax in efforts to wean. Off NTG/Cleviprex. 1 Dose of 40 IV lasix. Start Statin, DVT prophylaxis and ASA. Later post diuretic and approx 700 out pt and transition to precedex increasingly hypotensive, albumin 250 x2 given, paced at rate of 90, Levo started. Fio2 increased to 100% during this time. Since weaned to 70% and off Levo. Followup RFP. Edited by: Yvrose Campbell APRN at 05/28/2025 1257 Lines/Drains/Tubes: Patient Lines/Drains/Airways Status Active Active LDAs Name Placement date Placement time Site Days CVC Single Lumen 05/27/25 Right Internal jugular 05/27/25 0740 Internal jugular 1 CVC Double Lumen 05/27/25 Right Internal jugular 05/27/25 0740 Internal jugular 1 Peripheral IV 05/27/25 Right Antecubital 05/27/25 0655 Antecubital 1 Chest Tube 3 Right Pleural 32 Fr 05/27/25 1702 Pleural less than 1 Urethral Catheter Non-latex;Temperature probe 16 Fr. 05/27/25 0725 -- 1 Y Chest Tube 1 and 2 Anterior Mediastinal 32 Fr. Anterior Mediastinal 32 Fr. 05/27/25 1700 -- less than 1 NG/OG [place] [facility] mouth 05/27/25 0900 Center mouth 1 ETT ETT - single 8 mm 05/27/25 0725 Oral 1 Arterial Line 05/27/25 Right Radial 05/27/25 0729 Radial 1 Pulmonary Artery Catheter 05/27/25 Internal jugular Right 05/27/25 0740 Internal jugular 1 Negative Pressure Wound Therapy Sternum 05/27/25 1749 Sternum less than 1 GCS: [employer] Coma Scale Score: 10 Review of Systems Unobtainable secondary pt condition, intubated and on sedation Vital signs: Vitals: 05/28/25 1100 BP: Pulse: 79 Resp: 13 Temp: 37.5 ??C (99.5 ??F) SpO2: 100% Intake/Output Summary (Last 24 hours) at 05/28/2025 1300 Last data filed at 05/28/2025 1231 Gross per 24 hour Intake 7615.82 ml Output 5923 ml Net 1692.82 ml Physical Exam Constitutional: Comments: Ill appearing on vent, initially on NTG and propofol HENT: Head: Normocephalic. Nose: Nose normal. Mouth/Throat: Mouth: Mucous membranes are dry. Eyes: Pupils: Pupils are equal, round, and reactive to light. Comments: R pupil SR Cardiovascular: Rate and Rhythm: Normal rate and regular rhythm. Pulmonary: Effort: Pulmonary effort is normal. Breath sounds: Normal breath sounds. Abdominal: General: Bowel sounds are normal. Palpations: Abdomen is soft. Musculoskeletal: Cervical back: Neck supple. Right lower leg: No edema. Left lower leg: No edema. Skin: General: Skin is warm and dry. Capillary Refill: Capillary refill takes less than 2 seconds. Neurological: Comments: On sedation initially 3T, later in shift awoke, agitated NICHOLAS not purposeful however afterseveral attempt did nod head approp to nursing questioning Psychiatric: Comments: Behavior is not normal Results Review I have reviewed the latest lab and imaging results. Assessment and Plan: This patient is critically ill. 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) Present on Admission: Yes -will need procedure with vascular surgery Poorly-controlled hypertension Present on Admission: Yes -on cleveprex and nitroglycerin - started hydral 10 TID BMI 25.0-25.9,adult Present on Admission: Not Applicable -complicates aspects of care Hyperlipidemia Present on Admission: Yes - start statin COPD (chronic obstructive pulmonary disease) (CMS/HCC) Present on Admission: Yes -on mechanically assisted ventilation, expected s/p AAA repair, and root replace - evaluate for extubation H/O aortic arch replacement Present on Admission: Not Applicable -05/27: Ascending aortic and arch aneurysm repair with ascending aortic replacement using a 28 Hemashield graft and aortic arch replacement using a 32 Hemashield tube graft with deep circulatory arrestusing bilateral antegrade cerebral perfusion and de-branching of the innominate artery and the leftcarotid artery with valve sparing H/O ascending aortic replacement Present on Admission: Not Applicable -05/27: Ascending aortic and arch aneurysm repair with ascending aortic replacement using a 28 Hemashield graft and aortic arch replacement using a 32 Hemashield tube graft with deep circulatory arrestusing bilateral antegrade cerebral perfusion and de-branching of the innominate artery and the leftcarotid artery with valve sparing H/O transcarotid artery revascularization (TCAR) Present on Admission: Not Applicable -02/2025 Hypokalemia Present on Admission: Unknown -Monitor per protocol and replaced as indicated Cardiac volume overload Present on Admission: Unknown Diurese as indicated Leukocytosis Present on Admission: Unknown Monitor post op likely reactive Agitation requiring sedation protocol Present on Admission: Unknown On propofol post op while on mechanical vent, attempted transition to precedex 05/28 pt increasinglyagitated trying to sit up in bed Will onboard enteral agents as able Pt on Xanax at home Non-Hospital Problems Peripheral vascular disease (CMS/HCC) (Chronic) Asymptomatic stenosis of right carotid artery Yvrose Campbell APRN * Progress Notes - Jannette Painting - 05/28/2025 11:07 AM EDT Case Management Adult Progress Note Joi Marcial 70 y.o. 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 No Housing Circumstances: Not Applicable Housing Circumstances Action Taken: Other N/A Additional Comments SW attempted to speak with the pt at bedside for initial assessment but was unable to do so due to pt receiving direct medical care. SW/CM will return as schedule permits. Addendum 12:22pm: SW again attempted to speak with the pt at bedside for initial assessment but wasunable to do so due to pt receiving direct medical care (pt intubated). Per note from JASMIN Maciel this date, plan to wean sedation to extubate. No family present at bedside. SW/CM will return as schedule permits. [place] Steve * Care Plan - eLnin Fitch - 05/28/2025 8:25 AM EDT Problem: Mechanical Ventilation Invasive Goal: Optimal Device Function Outcome: Ongoing, Progressing * Progress Notes - Doyle Maciel PA - 05/28/2025 7:18 AM EDT Images from the original note were not included. CVT Progress Note 24 Hour Events/HPI: no interval events since the OR Review of Systems: ROS Objective: All laboratory data, images, tracings, and vital sign data for past 24 hours are personally reviewed unless otherwise noted. @PATIENTWT@ , Weight: 71.2 kg (157 lb) , Ht Readings from Last 1 Encounters: 05/21/25 1.676 m (5' 6 ) , Body mass index is 27.4 kg/m??. VITALS (last 24h) 05/28/2025 3:11 AM 05/28/2025 3:15 AM 05/28/2025 4:00 AM 05/28/2025 4:10 AM 05/28/2025 5:00 AM 05/28/2025 6:00 AM 05/28/2025 6:39 AM Vitals Systolic 111 97 Diastolic 49 47 Heart Rate 67 67 69 68 Temp 36.6 C 36.5 C 36.6 C 36.8 C Resp 14 14 Weight (kg) 77 kg BMI 27.4 kg/m2 BSA (m2) 1.89 m2 PAP: (26-35)/(14-19) CO: [3 L/min-4.5 L/min] 3.9 L/min CI: [1.7 L/min/m2-2.5 L/min/m2] 2.2 L/min/m2 Invasive Ventilator Initiated (ETT/Trach Only): Yes O2 Delivery Method: Mechanical ventilator Vent Mode: PRVC Invasive Vent Status (ETT, Trach Only): In use S VT: 400 mL Insp Time (sec): 1.1 sec Vent Mode: PRVC FiO2 (%): 80 % S RR: 14 S VT: 400 mL MAP (cm H2O): 7 I & O Summary Intake/Output Summary (Last 24 hours) at 05/28/2025 0719 Last data filed at 05/28/2025 0639 Gross per 24 hour Intake 7579.41 ml Output 5103 ml Net 2476.41 ml LABS LABS (PAST 18Labs in last 18 hours CBC WBC 13.88 (H) Hb 10.1 (L) Plt 172 Hct 29.0 (L) ANC ?? INR 0.7 (L), PTT 28, Anti-Xa ?? BMP Na 144 Cl 105 BUN 21 Glu 168 (H) K 3.8 Co2 24 Cr 0.72 Ca 8.5 (L) iCa 4.6 Mg 3.1 (H), Phos 4.1 Lactate 1.5 LFT AST ?? AlkPhos ?? T Prot ?? ALK ?? Bili ?? Alb ?? D.Bili ?? HOURS) === 05/27/25 === XR CHEST 1 VIEW - Narrative - CLINICAL INDICATION: Post-Op Cardiac Surgery TECHNIQUE: XR CHEST 1 VIEW COMPARISON: 05/27/2025. FINDINGS: Hardware stable. Aeration is not significantly changed. No overt pneumothorax. Trace pleural effusions. - Impression - No significant interval change. CRITICAL RESULT: No. COMMUNICATION: Per this written report. Drafted by Les Steele MD on 05/28/2025 6:28 AM Final report signed by Les Steele MD on 05/28/2025 6:29 AM MEDICATIONS Current Scheduled Medications[1] Current Continuous Medications[2] Current PRN Medications[3] Physical Exam: GENERAL: WD, WN, NAD. EYES: No scleral icterus or conjunctivitis HENT: Atraumatic, normocephalic, nares patent, mucus membranes moist NECK: Supple, no JVD, no evidence of bruit bilaterally RESP/CHEST: Symmetric expansion; non labored. Bronchial left. Sternum Stable CARD: RRR, S1/S2 distinct. No murmur, rubs, or gallop. cap refill < 2 secs Extremities: No edema. No cyanosis or clubbing. Pedal pulses palpable +2. GI: No organomegaly or masses. Soft, Nontender, nondistended. BS present and normoactive x 4 quadrants SKIN: No rash, sores, lesions or subcutaneous nodules. 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) Active Problems: Cerebral venous sinus thrombosis 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) Poorly-controlled hypertension BMI 25.0-25.9,adult Hyperlipidemia COPD (chronic obstructive pulmonary disease) (CMS/HCC) 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 H/O transcarotid artery revascularization (TCAR) Plan: Wean sedation to extubate Off gtts Remains in NSR Leave MCT in place Diurese today [1] ceFAZolin, 2 g, Intravenous, q8h docusate sodium, 100 mg, Oral, BID hydrALAZINE, 10 mg, Oral, TID mupirocin, 1 Application, Each Nostril, BID pantoprazole, 40 mg, Intravenous, Daily senna, 17.2 mg, Oral, Nightly sugammadex, 1 mg/kg, Intravenous, Once [2] clevidipine, 1-32 mg/hr, Last Rate: Stopped (05/28/25 0500) HYDROmorphone, 0.25-2 mg/hr, Last Rate: Stopped (05/28/25 0624) nitroglycerin, 0-2 mcg/kg/min, Last Rate: Stopped (05/28/25 0634) propofol, 10-50 mcg/kg/min, Last Rate: 25 mcg/kg/min (05/28/25 0639) sodium chloride 0.45 % with potassium chloride 20 mEq, magnesium sulfate 3 g 1,000 mL infusion, 50 mL/hr, Last Rate: 50 mL/hr (05/28/25 0100) [3] PRN medications: acetaminophen, albumin human, HYDROmorphone OR HYDROmorphone, ondansetron,oxyCODONE OR oxyCODONE, polyethylene glycol * Clinician Note - Sarah Schroeder - 05/28/2025 7:12 AM EDT Physical Therapy Attempt Patient Name: Joi Marcial Today's Date: 05/28/2025 Patient was attempted to be seen by physical therapy 05/28/2025 for PT Evaluation however patient not appropriate due to medical status. Physical therapy team will follow-up when medically appropriate. Written by Sarah Schroeder on 05/28/25 at 7:12 AM. * Clinician Note - Rachel Alston - 05/28/2025 7:08 AM EDT Occupational Therapy Attempt Patient Name: Joi Marcial Today's Date: 05/28/2025 Patient was attempted to be seen by occupational therapy 05/28/2025 for OT Evaluation however patient not appropriate due to medical status. Occupational therapy team will follow-up when medically appropriate. Written by Rachel Alston on 05/28/25 at 7:08 AM. * Care Plan - Juhi Copeland RN - 05/28/2025 6:41 AM EDT Problem: Adult Inpatient Plan of Care Goal: Plan of Care Review Outcome: Ongoing, Progressing Flowsheets (Taken 05/28/2025635) Progress: improving Plan of Care Reviewed With: (pt intubated/sedation; no family at bedside) other (see comments) Goal: Patient-Specific Goal (Individualized) Outcome: Ongoing, Progressing Flowsheets (Taken 05/27/20251999) Patient/Family-Specific Goals (Include Timeframe): Pt will maintain MAP between 70-80 per goal throughout the shift. Individualized Care Needs: hemodynamic stability Anxieties, Fears or Concerns: none Goal: Absence of Hospital-Acquired Illness or Injury Outcome: Ongoing, Progressing Intervention: Prevent Skin Injury Flowsheets (Taken 05/28/2025635) Body Position: turned Skin Protection: transparent dressing maintained Intervention: Prevent and Manage VTE (Venous Thromboembolism) Risk Flowsheets (Taken 05/28/2025 0400) VTE Prevention/Management: bilateral SCDs (sequential compression devices) on Problem: Infection Goal: Absence of Infection Signs and Symptoms Outcome: Ongoing, Progressing Intervention: Prevent or Manage Infection Flowsheets (Taken 05/28/2025635) Infection Management: aseptic technique maintained Problem: Mechanical Ventilation Invasive Goal: Effective Communication Outcome: Ongoing, Progressing Intervention: Ensure Effective Communication Flowsheets (Taken 05/28/2025635) Trust Relationship/Rapport: care explained Communication Enhancement Strategies: verbal and visual cues paired Goal: Optimal Device Function Outcome: Ongoing, Progressing Intervention: Optimize Device Care and Function Flowsheets Taken 05/28/2025635 Airway/Ventilation Management: airway patency maintained Taken 05/28/2025599 Oral Care: suction toothette Goal: Mechanical Ventilation Liberation Outcome: Ongoing, Progressing Intervention: Promote Extubation and Mechanical Ventilation Liberation Flowsheets (Taken 05/28/2025635) Environmental Support: distractions minimized Medication Review/Management: medications reviewed Goal: Optimal Nutrition Delivery Outcome: Ongoing, Progressing Intervention: Optimize Nutrition Delivery Flowsheets (Taken 05/28/2025635) Nutrition Support Management: weight trending reviewed Goal: Absence of Device-Related Skin and Tissue Injury Outcome: Ongoing, Progressing Intervention: Maintain Skin and Tissue Health Flowsheets (Taken 05/28/2025 0636) Device Skin Pressure Protection: absorbent pad utilized/changed [id number] areas padded Goal: Absence of Ventilator-Induced Lung Injury Outcome: Ongoing, Progressing Intervention: Prevent Ventilator-Associated Pneumonia Flowsheets Taken 05/28/2025 06 Head of Bed (HOB) Positioning: HOB elevated Taken 05/28/2025 0600 Oral Care: suction toothette Problem: Skin Injury Risk Increased Goal: Skin Health and Integrity Outcome: Ongoing, Progressing Intervention: Optimize Skin Protection Flowsheets (Taken 05/28/2025 0636) Skin Protection: transparent dressing maintained Head of Bed (HOB) Positioning: HOB elevated Problem: Restraint, Nonviolent Goal: Absence of Harm or Injury Outcome: Ongoing, Progressing Intervention: Implement Least Restrictive Safety Strategies Flowsheets (Taken 05/28/2025 06) Rotational Moulding Operator Protection: tubing secured Intervention: Protect Dignity, Rights and Personal Wellbeing Flowsheets (Taken 05/28/2025 06) Trust Relationship/Rapport: care explained Intervention: Protect Skin and Joint Integrity Flowsheets Taken 05/28/2025 0636 Body Position: turned Skin Protection: transparent dressing maintained Taken 05/28/2025 0400 Range of Motion: ROM (range of motion) performed * Assessment & Plan Note - Rosalba Andre APRN - 05/28/2025 1:42 AM EDT Associated Problem(s): 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 Nicholson * Assessment & Plan Note - Rosalba Andre APRN - 05/28/2025 1:42 AM EDT Associated Problem(s): 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) -will need procedure with vascular surgery * Assessment & Plan Note - Rosalba Andre APRN - 05/28/2025 1:42 AM EDT Associated Problem(s): Poorly-controlled hypertension -on cleveprex and nitroglycerin - started hydral 10 TID * Assessment & Plan Note - Rosalba Andre APRN - 05/28/2025 1:42 AM EDT Associated Problem(s): BMI 25.0-25.9,adult (Deleted) -complicates aspects of care * Assessment & Plan Note - Rosalba Andre APRN - 05/28/2025 1:42 AM EDT Associated Problem(s): Hyperlipidemia - start statin when appropriate * Assessment & Plan Note - Rosalba Andre APRN - 05/28/2025 1:42 AM EDT Associated Problem(s): COPD (chronic obstructive pulmonary disease) ([facility]) -on mechanically assisted ventilation, expected s/p AAA repair, and root replace * Assessment & Plan Note - Rosalba Andre APRN - 05/28/2025 1:42 AM EDT Associated Problem(s): H/O aortic arch replacement -05/27: Ascending aortic and arch aneurysm repair with ascending aortic replacement using a 28 Hemashield graft and aortic arch replacement using a 32 Hemashield tube graft with deep circulatory arrestusing bilateral antegrade cerebral perfusion and de-branching of the innominate artery and the leftcarotid artery with valve sparing * Assessment & Plan Note - Rosalba Andre APRN - 05/28/2025 1:42 AM EDT Associated Problem(s): H/O ascending aortic replacement -05/27: Ascending aortic and arch aneurysm repair with ascending aortic replacement using a 28 Hemashield graft and aortic arch replacement using a 32 Hemashield tube graft with deep circulatory arrestusing bilateral antegrade cerebral perfusion and de-branching of the innominate artery and the leftcarotid artery with valve sparing * Assessment & Plan Note - Rosalba Andre APRN - 05/28/2025 1:42 AM EDT Associated Problem(s): H/O transcarotid artery revascularization (TCAR) -02/2025 * H&P - Rosalba Andre APRN - 05/27/2025 11:43 PM EDTAssociated Order(s): Critical Care Post-Procedure Diagnose(s): H/O aortic arch replacement; H/O ascending aortic replacement; Poorly-controlled hypertension; Chronic obstructive pulmonary disease, unspecified COPD type (CMS/HCC); Hyperlipidemia, unspecified hyperlipidemia type; Aneurysm of descending thoracic aorta without rupture ([facility]/HCC) Critical Care Performed by: Rosalba Andre APRN Authorized by: Rosalba Andre APRN Critical care provider statement: Critical care time (minutes): 73 Critical care time was exclusive of: Separately billable procedures and treating other patients Critical care was time spent personally by me on the following activities: Development of treatmentplan with patient or surrogate, discussions with consultants, evaluation of patient's response to treatment, examination of patient, discussions with primary provider, review of old charts and ventilator management Comments: The patient is critically ill with: s/p aortic arch replacement, ascending aortic replacement, COPD, HTN. They require complex decision making. The patient was seen on rounds with critical care physician, Dr. Jaime De Paz DO and they are in agreement with the plan of care. Pharmacy, respiratory and nursing services were present on rounds. 05/28/25 Joi Marcial Consulted for critical care management by Cardiothoracic Surgery. HPI Joi Marcial is a 70 y.o. 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 Joi Marcial is a 70 year old woman with a PMH of HTN, HLD, hx TUD, right carotid stenosis s/p TCAR,cerebral venous thrombosis, and OA who underwent AAA repair with Dr. Nicholson 05/27. The patient arrived to the CVICU after Ascending aortic and arch aneurysm repair with ascending aortic replacement using a 28 Hemashield graft and aortic arch replacement using a 32 Hemashield tube graft with deep circulatory arrest using bilateral antegrade cerebral perfusion and de-branching of the innominate artery and the left carotid artery with valve sparing intubated and sedated on propofol. Airway was easy, grade I view. The pt received 1000 mcg Fentanyl and 10 mg Versed. Intraoperatively, they received 2000 mL of crystalloid, 870 mL of cell saver and the following blood products: 5 PRBC, 3 Platelets, 4 FFP, 2 Cryo, DDAVP, and factor 7 x3. Patient required cleveprex in the OR for HTN, very labile. Significant intra-op included: difficulty achieving adequate hemostasis, for which the patient received DDAVP and factor 7 and labile blood pressure, requiring yon and nitroglycerin pushes through out the case. Total time on pump was 279 minutes and circulatory arrest for 53 mintues.They have V wires and currently have the pacer set to a backup rhythm of 40. Intrinsic rate in the OR was NSR. Postoperative AJ showed normal BiV with mild AI, EF 45-50%. Last dose of paralytic was given at 1648. Upon arrival, the patient was on propofol, nitroglycerin, and clevidipine. [facility] services were consulted for management of this patient in the acute postoperative period. Patient arrived to ICU sedated on propofol. PM: 250 albumin, started 10 hydral PO TID, leaving intubated overnight for difficulty oxygenating, currently on 80%. On cleveprex @ 16, nitroglycerin @ 0.28 Airway view (if available) was: grade I - full view of glottis Lines/Drains/Tubes: . Active . Name Placement date Placement time Site Days CVC Single Lumen 05/27/25 Right Internal jugular 05/27/25 0740 Internal jugular less than 1 CVC Double Lumen 05/27/25 Right Internal jugular 05/27/25 0740 Internal jugular less than 1 Peripheral IV 05/27/25 Right Antecubital 05/27/25 0655 Antecubital less than 1 Chest Tube 3 Right Pleural 32 Fr 05/27/25 1702 Pleural less than 1 Urethral Catheter Non-latex;Temperature probe 16 Fr. 05/27/25 0725 -- less than 1 Y Chest Tube 1 and 2 Anterior Mediastinal 32 Fr. Anterior Mediastinal 32 Fr. 05/27/25 1700 -- less than 1 Arterial Line 05/27/25 Right Radial 05/27/25 0729 Radial less than 1 Pulmonary Artery Catheter 05/27/25 Internal jugular Right 05/27/25 0740 Internal jugular less than 1 Last antibiotic: Patient recently received an antibiotic (last 12 hours) Date/Time Action Medication Dose 05/27/252033 Given ceFAZolin (Ancef) injection 2 g 2 g 05/27/25 161 Given ceFAZolin (Ancef) injection 2 g 2 g Per the patient questionnaire: Patient answers are not available for this visit. Medical/Surgical/Social/Family History I have reviewed and updated the patient history. Home Medications: Home Medications[1] Allergies Patient has no known allergies. GCS: Kip Coma Scale Score: 3 Review of Systems 14 point ROS reviewed and otherwise negative or unobtainable except as noted above or in HPI. Vital signs: Vitals: 05/28/25 0120 BP: 105/62 Pulse: Resp: Temp: SpO2: Intake/Output Summary (Last 24 hours) at 05/28/2025 0132 Last data filed at 05/28/2025 0000 Gross per 24 hour Intake 6118.5 ml Output 3353 ml Net 2765.5 ml Physical Exam: Sedation was held for the purposes of examination. Physical Exam Constitutional: Interventions: She is sedated, intubated and restrained. HENT: Head: Normocephalic. Eyes: Extraocular Movements: Extraocular movements intact. Conjunctiva/sclera: Conjunctivae normal. Pupils: Pupils are equal, round, and reactive to light. Cardiovascular: Rate and Rhythm: Normal rate and regular rhythm. Pulses: Normal pulses. Heart sounds: Normal heart sounds. Pulmonary: Effort: Pulmonary effort is normal. She is intubated. Breath sounds: Normal breath sounds. Chest: Comments: Midsternal incision with wound vac, chest tubes in place Abdominal: General: Bowel sounds are normal. Palpations: Abdomen is soft. Genitourinary: Comments: Cerda catheter Musculoskeletal: General: Normal range of motion. Cervical back: Normal range of motion. Skin: General: Skin is warm and dry. Capillary Refill: Capillary refill takes less than 2 seconds. Neurological: Comments: Unable to assess, intubated and sedated Psychiatric: Comments: Unable to assess, intubated and sedated Results Review I have reviewed the latest lab and imaging results. Assessment and Plan: This patient is critically ill. 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) Present on Admission: Yes -will need procedure with vascular surgery Poorly-controlled hypertension Present on Admission: Yes -on cleveprex and nitroglycerin - started hydral 10 TID BMI 25.0-25.9,adult Present on Admission: Not Applicable -complicates aspects of care Hyperlipidemia Present on Admission: Yes - start statin when appropriate COPD (chronic obstructive pulmonary disease) (CMS/HCC) Present on Admission: Yes -on mechanically assisted ventilation, expected s/p AAA repair, and root replace H/O aortic arch replacement Present on Admission: Not Applicable -05/27: Ascending aortic and arch aneurysm repair with ascending aortic replacement using a 28 Hemashield graft and aortic arch replacement using a 32 Hemashield tube graft with deep circulatory arrestusing bilateral antegrade cerebral perfusion and de-branching of the innominate artery and the leftcarotid artery with valve sparing H/O ascending aortic replacement Present on Admission: Not Applicable -05/27: Ascending aortic and arch aneurysm repair with ascending aortic replacement using a 28 Hemashield graft and aortic arch replacement using a 32 Hemashield tube graft with deep circulatory arrestusing bilateral antegrade cerebral perfusion and de-branching of the innominate artery and the leftcarotid artery with valve sparing H/O transcarotid artery revascularization (TCAR) Present on Admission: Not Applicable -02/2025 Non-Hospital Problems Peripheral vascular disease (CMS/HCC) (Chronic) Asymptomatic stenosis of right carotid artery Rosalba Andre APRN [1] Medications Prior to Admission Medication Sig Dispense Refill ALPRAZolam (Xanax) 0.5 MG tablet Take 1 tablet by mouth 2 times a day. amLODIPine (Norvasc) 2.5 MG tablet Take 1 tablet by mouth daily. aspirin 81 MG EC tablet Take 1 tablet by mouth daily. 30 tablet 11 atorvastatin (Lipitor) 20 MG tablet Take 2 tablets by mouth daily. atorvastatin (Lipitor) 40 MG tablet Take 1 tablet by mouth daily. 30 tablet 11 bisoprolol (Zebeta) 10 MG tablet Take 1 tablet by mouth nightly. cholecalciferol (D-5000) 5,000 Units tablet Take 1 tablet by mouth 1 time each day. clopidogrel (Plavix) 75 MG tablet Take 1 tablet by mouth daily. 30 tablet 11 hydroCHLOROthiazide (HYDRODiuril) 50 MG tablet Take 1 tablet by mouth daily. lisinopril 20 MG tablet Take 1 tablet by mouth nightly. (Patient taking differently: Take 2 tabletsby mouth nightly.) Multiple Vitamins-Minerals (CENTRUM SILVER 50+WOMEN PO) Take by mouth. PARoxetine (Paxil) 20 MG tablet Take 1 tablet by mouth daily. mupirocin (Bactroban) 2 % ointment Apply 1 Application topically 2 times a day. Apply to each nostril twice daily for 5 days before surgery. 15 g 0 naloxone (Narcan) 4 mg/0.1 mL nasal spray 1. Give 1 spray in nostril for no/slow breathing or cannot wake after opioid use 2. Call 911 3. Repeat in other nostril if symptoms continue 1 each 0 * Care Plan - Rosaline Martinez - 05/27/2025 10:41 PM EDT Problem: Mechanical Ventilation Invasive Goal: Optimal Device Function Outcome: Ongoing, Progressing * Progress Notes - Lauren Méndez, PharmD - 05/27/2025 5:26 PM EDT [facility]acy was consulted for administration of Factor Seven. Joi Marcial is a 70 y.o. female Past Medical History: 2024: Aneurysm (CMS/HCC) No date: Hyperlipidemia 1989: Hypertension No date: Obesity Wt: Wt Readings from Last 1 Encounters: 05/27/25 71.2 kg (157 lb) pH: 7.41 Temp: 35.5 Products given: pRBC Based on patient weight, max dose is 90mcg/kg => (90mcg/kg)( kg) = mcg (or mg) Doses Given: 2 mg (30 mcg/kg) @ 1626 2 mg (30 mcg/kg) @1641 2 mg (30 mcg/kg) @1656 Lot No: [id number] Exp: 01/15/2027 Lauren Méndez, PharmD PGY2 Critical Care Volunteer Coordinator Available by secure chat * Op Note - Jose C Nicholson MD - 05/27/2025 8:26 AM EDT OPERATIVE NOTE: Date: 05/27/2025 Location: [facility] Name: Joi Marcial, : 1955, Pre-operative Diagnosis: Problem List[1] Post-operative Diagnosis: Problem List[2] Operation: Ascending aortic and arch aneurysm repair with ascending aortic replacement using a 28 Hemashield graft and aortic arch replacement using a 32 Hemashield tube graft with deep circulatory arrest usingbilateral antegrade cerebral perfusion and de-branching of the innominate artery and the left carotid artery. Surgeon: * Jose C Nicholson - Primary resident is Dr. Feliciano Tucker Anesthesia: General ASA Class: IV Indication: Ascending aortic aneurysm, aortic arch aneurysm, descending aortic aneurysm. Brief History: 70 y.o. 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 PMH hypertension, and cerebral venous sinus thrombosis, presents for ascending and descending aortic aneurysms discovered on CT scans ordered by her stove installer. Additionally she has 70-80% stenosis of proximal right ICA and left GLASS INSERTER high grade stenosis. She was discussed in the aortic multidisciplinary conference and decision was made to stage her treatment we started by the vascular surgeon performing a stenting of her right carotid artery, and shepresenting today for her 2nd stage that we discussed with her and her family in the clinic that we will include ascending aortic replacement aortic arch replacement with deep branching of the left carotid and the innominate artery. The benefits and risks of the procedure including bleeding, infection, poor wound healing, MD, stroke, injury to any organs in the body, heart block requiring pacemaker, arrhythmia, and were explained to the patient and her family. The potential need for blood transfusion with its risks was discussed with the patient. Findings: Significant coagulopathy from the beginning of the surgery. The aortic root was not aneurysmal with the ST junction measuring around 28 mm in diameter. The aortic valve was competent. The ascending aorta was aneurysmal the aortic arch was aneurysmal and a tapered down to around 35 mm at the takeoff of the left subclavian artery and there was extensive patchy calcification of the entire aortic arch. We used a 28 mm graft to replace the ascending aorta that was resected all the way down to the ST junction, we resected the aortic arch keeping a small patch anteriorly of it that included AJ ostiumof the left subclavian so that it can be used at the time of the endovascular repair of the thoracoabdominal portion of the aneurysm as per the plan placed in the multidisciplinary aortic conference. We created AY graft made from a 12 mm Hemashield graft and we anastomosed a side branch to it made from 7 mm Hemashield graft and that Y-graft was used to deep branch the innominate artery and left carotid and then placed the proximal end of the Y-graft to the ascending aortic graft. Procedure Details: The patient was taken to the operating room placed on operative table supine position, General anesthesia with endotracheal intubation and the appropriate monitoring lines were done by the anesthesiologist. The patient was prepped and draped in the usual surgical fashion. A median sternotomy was performed and a pericardial well was developed. We control the innominate artery and left carotid artery and the patient received heparin. An 8 mm Hemashield graft was anastomosed to the side of the innominate artery and was used as 1 of our arterial cannulation site. The ascending aorta was cannulated in the right atrium was cannulated and the patient was placed oncardiopulmonary bypass using a why arterial line going to the ascending aorta into the 8 mm graft sewn to the side of the innominate artery, then the ascending aorta was crossclamped and the heart was arrested with cold [place] cardioplegia given both antegrade and retrograde fashion. The ascending aorta was transected and resected all the way down to the level of the ST junction that was measured at 28 mm and a 28 mm Hemashield graft was brought to the field and anastomosed to the ST junction using running 4-0 Prolene reinforced with a felt on the side of the aorta. At that time the patient has reached around 20 ?? C nasopharyngeal only. The innominate artery was clamped proximal to the anastomosis with the 8 mm graft and then a TA staple was applied at the takeoff of the innominate artery and the innominate artery was transected distally to the staple line then the distal limb of the Y-graft that is 12 mm in diameter was anastomosed to the cut end of the innominate artery using running 5 0 Prolene. Then the left carotid artery was stapled at its takeoff and then it was transected distal to the staple line and the 7 mm limb of the Y-graft was anastomosed to the cut end of the left carotid artery using running 5 0 Prolene then flow was allowed through the Y- graft back into the left carotid artery and at that point we started our deep hypothermic circulatory arrest using bilateral antegrade cerebral perfusion. The aortic crossclamp was removed after clamping the branch of the arterial line going to the aortic cannula. Then the remainder of the ascending aorta was resected and the aortic arch was resected including the part of it that has the ostium of the innominate artery in the left carotid. Then further resection of the aortic arch lesser curvature was extended to go beyond the takeoff of the left subclavian keeping the superior portion of the very distal part of the left arch that has the ostium of the left subclavian. Then we decided to use a size 32 mm Hemashield graft in order to reconstruct the arch, a Hemashieldgraft to the side branch was brought to the field and then fashioned accordingly and the graft was anastomosed to the proximal descending aorta and distal part of the aortic arch using running 3-0 Prolene reinforced with a felt on the side of the aorta making sure not to impinge on the ostium of the left subclavian artery. Then the side branch of the Hemashield graft was connected to 1 of the arterial line and full cardiopulmonary bypass was resumed after clamping the 32 mm arch graft proximally. Then the appropriate length of the 32 mm arch graft to the 28 mm ascending aortic graft was determined and the both graft were fashioned accordingly and then the tube graft were anastomosed using running 4-0 Prolene. Then the appropriate length of the proximal part of the Y-graft going to the innominate artery in the left carotid artery was measured to the ascending aortic 28 mm graft and a hole was made in the 28 mm graft at the selected location using an eye cautery in the proximal part of the Y graft was fashioned accordingly and then the Y-graft was anastomosed to the top of the ascendingaortic graft using running 4-0 Prolene. Heparin was reversed with protamine and the cannulas were removed. Two atrial wires, 2 ventricular wires, 2 mediastinal drains, and 1 right pleural drain were placed. Hemostasis was obtained which required significant amount of time with transfusion with platelets, FFP, cryoprecipitate and eventually the use of activated factor 7, once hemostasis was satisfactory the closure was as per routine total bypass time was 279 minutes and total cross-clamp time was 215 minutes at included 53 minutes ofdeep hypothermic circulatory arrest with bilateral antegrade cerebral perfusion. Drains: mediastinal x 2, right pleural drain. Specimens: Ascending aorta and aortic arch Implants: Hemashield graft sizes 28 mm for the ascending aorta, 32 mm for the aortic arch, 12th mm and 7 mm to create a Y graft to the branch the innominate artery in the left carotid artery. Complications: None; patient tolerated the procedure well. Disposition: ICU - intubated and hemodynamically stable. 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) BMI 25.0-25.9,adult Asymptomatic stenosis of right carotid artery Hyperlipidemia COPD (chronic obstructive pulmonary disease) (CMS/HCC) Peripheral vascular disease (CMS/HCC) [2] Patient Active Problem List Diagnosis Cerebral venous sinus thrombosis 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) Poorly-controlled hypertension 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 year old female with below findings. Problem List Items Addressed This Visit Aneurysm [...] to major vascular surgery such as stroke, MD, prolonged ventilation, tracheostomy, pulmonary embolism, and even a small risk of . We also discuss specific complications related to the surgery. Patient understood the risks and agreed to undergo an operation. Kiah Nava DO Vascular Surgery Fellow * H&P - Marques Pal MD - 05/27/2025 6:32 AM EDT History of present illness: Joi Marcial is a 70 y.o. 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 PMH hypertension, and cerebral venous sinus thrombosis, presents for ascending and descending aortic aneurysms discovered on CT scans ordered by hercardiologist. Additionally she has 70-80% stenosis of proximal right ICA and left GLASS INSERTER high grade stenosis. She was evaluated at [facility] with plans for staged repair including elephant trunk followed by endovascular repair however she wanted to be closer to home for a potential procedure. CTA shows maximal diameter of 6.2 cm in descending thoracic aorta. Now status post ALEKSANDR stent with Dr. Franz on 03/13/25. Currently on DAPT. Her chronic comorbid conditions that impact our [...] (CMS/HCC) 12/26/2024 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 Asymptomatic stenosis of right carotid artery 02/24/2025 Medical History: Past Medical History Pertinent Negatives[1] Surgical History: Surgical History[2] Social History: Tobacco: Tobacco Use: Medium Risk (05/21/2025) Patient History Smoking Tobacco Use: Former Smokeless [...] MD atorvastatin (Lipitor) 20 MG tablet Take 2 tablets by mouth daily. 02/25/25 Yes Provider, Historical atorvastatin (Lipitor) 40 MG tablet Take 1 tablet by mouth daily. 03/19/25 05/21/25 Yes Jose C Nicholson MD bisoprolol (Zebeta) 10 MG tablet Take 1 tablet by mouth nightly. Yes Provider, Historical cholecalciferol (D-5000) 5,000 Units tablet Take 1 tablet by mouth 1 time each day. Yes Provider, Historical clopidogrel (Plavix) 75 MG tablet Take 1 tablet by mouth daily. 02/27/25 02/27/26 Yes Cedrick Franz MD hydroCHLOROthiazide (HYDRODiuril) 50 MG tablet Take 1 tablet by mouth daily. Yes Provider, Historical lisinopril 20 MG tablet Take 1 tablet by mouth nightly. Patient taking differently: Take 2 tablets by mouth nightly. Yes Provider, Historical Multiple Vitamins-Minerals (CENTRUM SILVER 50+WOMEN PO) Take by mouth. Yes Provider, Historical PARoxetine (Paxil) 20 MG tablet Take 1 tablet by mouth daily. Yes Provider, Historical mupirocin (Bactroban) 2 % ointment Apply 1 Application topically 2 times a day. Apply to each nostril twice daily for 5 days before surgery. 05/14/25 Russ uBchanan MD naloxone (Narcan) 4 mg/0.1 mL nasal spray 1. Give 1 spray in nostril for no/slow breathing or cannot wake after opioid use 2. Call 911 3. Repeat in other nostril if symptoms continue 03/14/25 Sarah Alas, SAP PP CONSULTANT Physical exam: Visit Vitals BP (!) 88/44 (BP Location: Left arm) Pulse (!) 44 Temp 36.4 ??C (97.5 ??F) (Oral) SpO2 98% Constitutional: well developed, well nourished, and in no acute distress Respiratory: Normal expansion. Clear to auscultation. No [...] sensation and reflexes and motor intact Skin: [place], warm, well perfused Labs in last 18 hours: CBC WBC ?? Hb ?? Plt ?? Hct ?? ANC ?? INR ??, PTT ??, Anti-Xa ?? BMP Na ?? Cl ?? BUN ?? Glu ?? K ?? Co2 ?? Cr ?? Ca ?? iCa ?? Mg ??, Phos ?? Lactate ?? LFT AST ?? AlkPhos ?? T Prot ?? ALK ?? Bili ?? Alb ?? D.Bili ?? Impression: Joi Marcial is a 70 y.o. 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 Plan: -consent in media tab -prefers bioprosthetic valve in event needs replaced -last dose of plavix on 05/20 -last dose bisoprolol 05/27 -ok to proceed [1] Past Medical History: Diagnosis Date Aneurysm (CMS/HCC) 2024 Hyperlipidemia Hypertension 1989 Obesity [2] Past Surgical History: Procedure Laterality Date BACK SURGERY CHOLECYSTECTOMY 1971 FOOT SURGERY HYSTERECTOMY TOTAL HIP ARTHROPLASTY Left [3] No Known Allergies Cosigned by Jose C Nicholson MD at 05/27/2025 5:48 PM EDT Associated attestation - Jose C Nicholson MD - 05/27/2025 5:48 PM EDT I saw and evaluated the patient with the resident/fellow. I discussed the case with the resident/fellow and agree with the findings and plan as documented. * Preprocedure Instructions - Marisela Mae APRN - 05/21/2025 10:51 AM EDT Home Medication Instructions Current Medications Medication Instructions ALPRAZolam (Xanax) 0.5 MG tablet Take morning of surgery amLODIPine (Norvasc) 2.5 MG tablet Take night before surgery aspirin 81 MG EC tablet Take morning of surgery atorvastatin (Lipitor) 40 MG tablet Take morning of surgery bisoprolol (Zebeta) 10 MG tablet Take night before surgery cholecalciferol (D-5000) 5,000 Units tablet Hold day of surgery clopidogrel (Plavix) 75 MG tablet Hold 7 days before surgery per surgeon hydroCHLOROthiazide (HYDRODiuril) 50 MG tablet Hold day of surgery lisinopril 20 MG tablet Hold day of surgery Multiple Vitamins-Minerals (CENTRUM SILVER 50+WOMEN PO) Hold [...] card, photo ID, along with power of managing attorney, guardianship or advanced directives if applicable [...] to arrival for surgery for low glucose * PAT Phone Note - Marisela Mae APRN - 05/21/2025 7:52 AM EDT HPI Joi Marcial is a 70 y.o. 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 PAT F/U APT. Please see comprehensive PAT evaluation from: 03/04/25. The patient denies any changes to their health history since their previous surgery. Denies any recent URIs or changes to cardiac Hx. Medications reviewed. Questions addressed. Most recent G.A: 03/13/25 Successful airway: ETT Cuffed: yes Successful intubation technique: direct laryngoscopy Adjuncts used in placement: intubating stylet Endotracheal tube insertion site: oral Blade: Charly Blade size: #4 ETT size (mm): 7.0 Cormack-Lehane Classification: grade I - full view of glottis Placement verified by: chest auscultation and capnometry Cuff volume (mL): 7 Measured from: lips ETT to lips (cm): 21 CTA shows maximal diameter of 6.2 cm in descending thoracic aorta. Additionally she has 70-80% stenosis of proximal right ICA and left GLASS INSERTER high grade stenosis. Plan is for a staged approach. Drs. Nicholson and Maria M discussed the right 80% ICA lesion, this will need to be addressed prior to ascending aorta, arch, and common carotid debranching procedure. So the plan is: Right TCAR done on 03/13/25 Coronary angiogram Open ascending aortic repair with innominate and LCCA debranching Zone 2 TEVAR TBE Endovascular repair of TAAA with PMEG or TAMBE Past Medical History[1] Family History[2] Social History[3] SURGICAL HISTORY: Surgical History[4] Allergies[5] MEDICATIONS: Current Medications[6] Marisela Mae APRN [1] Past Medical History: Diagnosis Date Aneurysm ([facility]/HCC) 2024 Hyperlipidemia Hypertension 1989 Obesity [2] Family History Problem Relation Name Age of Onset Hypertension Mother Heart disease Father Diabetes type II Sister Cancer Brother Diabetes type II Brother Sudden Brother Anesthesia problems Neg Hx Malig Hyperthermia Neg Hx [3] Social History Tobacco Use Smoking status: Former Types: Cigarettes Passive exposure: Past Tobacco comments: Quit smoking 2018 smoked 1ppd for 40 years Vaping Use Vaping status: Never Used Substance Use Topics Alcohol use: Defer Drug use: Yes Types: Marijuana [4] Past Surgical History: Procedure Laterality Date BACK SURGERY CHOLECYSTECTOMY 1972 FOOT SURGERY HYSTERECTOMY TOTAL HIP ARTHROPLASTY Left [5] No Known Allergies [6] No current facility-administered medications for this encounter. Current Outpatient Medications: ALPRAZolam, Take 1 tablet by mouth 2 times a day. amLODIPine, Take 1 tablet by mouth daily. aspirin, Take 1 tablet by mouth daily. atorvastatin, Take 1 tablet by mouth daily. atorvastatin, Take 1 tablet by mouth nightly. (Patient not taking: Reported on 05/14/2025) bisoprolol, Take 1 tablet by mouth nightly. D-5000, Take 1 tablet by mouth 1 time each day. clopidogrel, Take 1 tablet by mouth daily. hydroCHLOROthiazide, Take 2 tablets by mouth daily. lisinopril, Take 1 tablet by mouth nightly. (Patient taking differently: Take 2 tablets by mouth nightly.) Multiple Vitamins-Minerals (CENTRUM SILVER 50+WOMEN PO), Take by mouth. mupirocin, Apply 1 Application topically 2 times a day. Apply to each nostril twice daily for 5 days before surgery. naloxone, 1. Give 1 spray in nostril for no/slow breathing or cannot wake after opioid use 2. Call 911 3. Repeat in other nostril if symptoms continue (Patient not takin. Give 1 spray in nostril for no/slow breathing or cannot wake after opioid use 2. Call 911 3. Repeat in other nostril if symptoms continue Reported on 05/14/2025) PARoxetine, Take 1 tablet by mouth daily. documented in this encounter Plan of Treatment Upcoming Encounters Date Type Department Care Team (Late st Contact Info) Description 06/25/2025 9:45 AM EDT Office Visit [facility] Cardi[facility] [address], [address] [place] [address] Jose C Nicholson MD [address] [place] [address] 08/07/2025 12:20 PM EST Appointment [facility] [address] [place] [address] 08/07/2025 1:40 PM EST Office Visit [facility] [address] [facility] 5th Floor [address] [place] [address] Cedrick Franz MD [address] [place] [address] Scheduled Orders Name Type Priority Associated Diagnoses Orde r Schedule CT Angio Abdomen Pelvis Imaging Routine 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) Expected: 07/05/2025 (Approximate), Expires: 12/07/2026 CT Angio Chest Imaging Routine 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 Author Consistently take Medications as Prescribed General On track( 025 11:40 AM EDT) Yes Ca Burr RN documented as of this encounter Procedures Procedure Name Priority Date/Time Associated Diagnosis Comments CBC W/O DIFFERENTIAL Routine 06/07/2025 4:10 AM EDT MAGNESIUM, PLASMA Routine 06/07/2025 4:10 AM EDT RENAL FUNCTION PANEL, PLASMA Routine 06/07/2025 4:10 AM EDT CBC WITH AUTO DIFFERENTIAL Routine 06/06/2025 10:45 AM EDT OXYGEN THERAPY Routine 06/06/2025 9:00 AM EDT PEP THERAPY Routine 06/06/2025 7:47 AM EDT CBC W/O DIFFERENTIAL Pending Discharge 06/06/2025 6:31 AM EDT LACTATE, VENOUS Pending Discharge 06/06/2025 5:45 AM EDT PROCALCITONIN, PLASMA Pending Discharge 06/06/2025 5:45 AM EDT BLOOD CULTURE (AEROBIC/ANAEROBIC SET) Pending Discharge 06/06/2025 5:45 AM EDT MAGNESIUM, PLASMA Pending Discharge 06/06/2025 5:01 AM EDT RENAL FUNCTION PANEL, PLASMA Pending Discharge 06/06/2025 5:01 AM EDT PEP THERAPY Routine 06/06/2025 1:[address] ANGIO CHEST STAT 06/06/2025 12:[address] ANGIO NECK STAT 06/06/2025 12:[address] ANGIO HEAD STAT 06/06/2025 12:59 AM EDT [place] CRITICAL CARE, E/M 30-74 MINUTES Routine 06/05/2025 11:06 PM EDT 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) Chronic obstructive pulmonary disease, unspecified COPD type (CMS/HCC) 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 Cardiac volume overload BMI 25.0-25.9,adult Cerebral venous sinus thrombosis Atrial fibrillation, unspecified type (CMS/HCC) Asymptomatic stenosis of right carotid artery Pleural effusion Leukocytosis, unspecified type BLOOD GAS PANEL WITH OXIMETRY, MIXED VENOUS Routine 06/05/2025 10:05 PM EDT CBC W/O DIFFERENTIAL Routine 06/05/2025 10:05 PM EDT MAGNESIUM, PLASMA Routine 06/05/2025 10:05 PM EDT RENAL FUNCTION PANEL, PLASMA Routine 06/05/2025 10:05 PM EDT ECG ADULT STAT 06/05/2025 9:14 PM EDT OXYGEN THERAPY Routine 06/05/2025 9:00 PM EDT PEP THERAPY Routine 06/05/2025 7:47 PM EDT PEP THERAPY Routine 06/05/2025 1:47 PM EDT OXYGEN THERAPY Routine 06/05/2025 9:00 AM EDT PEP THERAPY Routine 06/05/2025 7:47 AM EDT CBC W/O DIFFERENTIAL Routine 06/05/2025 4:18 AM EDT MAGNESIUM, PLASMA Routine 06/05/2025 4:18 AM EDT RENAL FUNCTION PANEL, PLASMA Routine 06/05/2025 4:18 AM EDT XR CHEST 1 VIEW Routine 06/05/2025 2:47 AM EDT PEP THERAPY Routine 06/05/2025 1:47 AM EDT OXYGEN THERAPY Routine 06/04/2025 9:00 PM EDT PEP THERAPY Routine 06/04/2025 7:47 PM EDT PEP THERAPY Routine 06/04/2025 1:47 PM EDT PEP THERAPY Routine 06/04/2025 1:47 PM EDT PEP THERAPY Routine 06/04/2025 1:47 PM EDT PEP THERAPY Routine 06/04/2025 1:47 PM EDT PEP THERAPY Routine 06/04/2025 1:47 PM EDT OXYGEN THERAPY Routine 06/04/2025 9:00 AM EDT POCT GLUCOSE METER UNSOLICITED RESULTS Routine 06/04/2025 5:53 AM EDT XR CHEST 1 VIEW Routine 06/04/2025 3:22 AM EDT CBC W/O DIFFERENTIAL Routine 06/04/2025 1:39 AM EDT MAGNESIUM, PLASMA Routine 06/04/2025 1:39 AM EDT RENAL FUNCTION PANEL, PLASMA Routine 06/04/2025 1:39 AM EDT LIPID PROFILE, PLASMA Add-On 06/04/2025 1:39 AM EDT POCT GLUCOSE METER UNSOLICITED RESULTS Routine 06/04/2025 1:36 AM EDT OXYGEN THERAPY Routine 06/03/2025 9:00 PM EDT MAGNESIUM, PLASMA Routine 06/03/2025 5:44 PM EDT BASIC METABOLIC PANEL, PLASMA Routine 06/03/2025 5:44 PM EDT POCT GLUCOSE METER UNSOLICITED RESULTS Routine 06/03/2025 12:24 PM EDT FL MODIFIED BARIUM SWALLOW Routine 06/03/2025 11:25 AM EDT OXYGEN THERAPY Routine 06/03/2025 9:00 AM EDT POCT GLUCOSE METER UNSOLICITED RESULTS Routine 06/03/2025 5:25 AM EDT XR CHEST 1 VIEW Routine 06/03/2025 3:01 AM EDT CBC W/O DIFFERENTIAL Routine 06/03/2025 12:13 AM EDT MAGNESIUM, PLASMA Routine 06/03/2025 12:13 AM EDT RENAL FUNCTION PANEL, PLASMA Routine 06/03/2025 12:13 AM EDT PEP THERAPY Routine 06/03/2025 12:00 AM EDT OXYGEN THERAPY Routine 06/02/2025 9:00 PM EDT PEP THERAPY Routine 06/02/2025 8:00 PM EDT PEP THERAPY Routine 06/02/2025 4:00 PM EDT OXYGEN THERAPY Routine 06/02/2025 1:57 PM EDT OXYGEN THERAPY Routine 06/02/2025 1:57 PM EDT PEP THERAPY Routine 06/02/2025 12:00 PM EDT PEP THERAPY Routine 06/02/2025 9:00 AM EDT PEP THERAPY Routine 06/02/2025 7:17 AM EDT PEP THERAPY Routine 06/02/2025 7:17 AM EDT PEP THERAPY Routine 06/02/2025 7:17 AM EDT PEP THERAPY Routine 06/02/2025 7:17 AM EDT PEP THERAPY Routine 06/02/2025 7:17 AM EDT XR CHEST 1 VIEW Routine 06/02/2025 2:57 AM EDT CBC W/O DIFFERENTIAL Routine 06/02/2025 2:57 AM EDT MAGNESIUM, PLASMA Routine 06/02/2025 2:57 AM EDT RENAL FUNCTION PANEL, PLASMA Routine 06/02/2025 2:57 AM EDT EXTRA TUBE LAVENDER TOP Routine 06/01/2025 5:22 PM EDT EXTRA TUBES Routine 06/01/2025 5:22 PM EDT MAGNESIUM, PLASMA Add-On 06/01/2025 5:18 PM EDT RENAL FUNCTION PANEL, PLASMA Routine 06/01/2025 5:18 PM EDT POCT GLUCOSE METER UNSOLICITED RESULTS Routine 06/01/2025 5:13 PM EDT IA CRITICAL CARE, E/M 30-74 MINUTES Routine 06/01/2025 4:35 PM EDT 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 Cardiac volume overload Hypokalemia VAS US VENOUS DUPLEX UPPER EXTREMITY UNILATERAL Routine 06/01/2025 4:11 PM EDT POCT GLUCOSE METER UNSOLICITED RESULTS Routine 06/01/2025 11:47 AM EDT XR ABDOMEN 1 VIEW Routine 06/01/2025 8:45 AM EDT OXYGEN THERAPY Routine 06/01/2025 8:00 AM EDT POCT GLUCOSE METER UNSOLICITED RESULTS Routine 06/01/2025 6:26 AM EDT XR CHEST 1 VIEW Routine 06/01/2025 6:01 AM EDT PEP THERAPY Routine 06/01/2025 6:00 AM EDT CBC W/O DIFFERENTIAL Routine 06/01/2025 12:25 AM EDT MAGNESIUM, PLASMA Routine 06/01/2025 12:25 AM EDT RENAL FUNCTION PANEL, PLASMA Routine 06/01/2025 12:25 AM EDT PEP THERAPY Routine 05/31/2025 10:00 PM EDT OXYGEN THERAPY Routine 05/31/2025 6:00 PM EDT PEP THERAPY Routine 05/31/2025 6:00 PM EDT IA CRITICAL CARE, E/M 30-74 MINUTES Routine 05/31/2025 4:29 PM EDT 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 Left upper extremity swelling Atrial fibrillation, unspecified type (CMS/HCC) PEP THERAPY Routine 05/31/2025 2:00 PM EDT POCT GLUCOSE METER UNSOLICITED RESULTS Routine 05/31/2025 12:03 PM EDT PEP THERAPY Routine 05/31/2025 10:00 AM EDT OXYGEN THERAPY Routine 05/31/2025 8:00 AM EDT POCT GLUCOSE METER UNSOLICITED RESULTS Routine 05/31/2025 6:07 AM EDT PEP THERAPY Routine 05/31/2025 6:00 AM EDT XR CHEST 1 VIEW Routine 05/31/2025 2:35 AM EDT CBC W/O DIFFERENTIAL Routine 05/31/2025 12:14 AM EDT MAGNESIUM, PLASMA Routine 05/31/2025 12:14 AM EDT RENAL FUNCTION PANEL, PLASMA Routine 05/31/2025 12:14 AM EDT POCT GLUCOSE METER UNSOLICITED RESULTS Routine 05/31/2025 12:13 AM EDT PEP THERAPY Routine 05/30/2025 10:00 PM EDT OXYGEN THERAPY Routine 05/30/2025 6:00 PM EDT PEP THERAPY Routine 05/30/2025 6:00 PM EDT POCT GLUCOSE METER UNSOLICITED RESULTS Routine 05/30/2025 5:56 PM EDT MAGNESIUM, PLASMA Routine 05/30/2025 4:12 PM EDT BLOOD GAS PANEL, VENOUS Routine 05/30/2025 4:12 PM EDT RENAL FUNCTION PANEL, PLASMA Routine 05/30/2025 4:12 PM EDT OXYGEN THERAPY Routine 05/30/2025 2:48 PM EDT OXYGEN THERAPY Routine 05/30/2025 2:48 PM EDT EXTUBATION Routine 05/30/2025 2:48 PM EDT BLOOD GAS PANEL, VENOUS Routine 05/30/2025 2:35 PM EDT PEP THERAPY Routine 05/30/2025 2:00 PM EDT POCT GLUCOSE METER UNSOLICITED RESULTS Routine 05/30/2025 12:20 PM EDT IA CRITICAL CARE, ADDL 30 MIN Routine 05/30/2025 12:09 PM EDT 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) Cardiac volume overload BMI 25.0-25.9,adult Delirium due to multiple etiologies PEP THERAPY Routine 05/30/2025 10:00 AM EDT POCT GLUCOSE METER UNSOLICITED RESULTS Routine 05/30/2025 6:44 AM EDT PEP THERAPY Routine 05/30/2025 6:00 AM EDT BLOOD GAS PANEL, ARTERIAL Routine 05/30/2025 4:23 AM EDT BLOOD GAS PANEL, MIXED VENOUS Routine 05/30/2025 4:22 AM EDT XR CHEST 1 VIEW Routine 05/30/2025 2:18 AM EDT CBC W/O DIFFERENTIAL Routine 05/30/2025 12:58 AM EDT MAGNESIUM, PLASMA Routine 05/30/2025 12:58 AM EDT BLOOD GAS PANEL, ARTERIAL Routine 05/30/2025 12:58 AM EDT RENAL FUNCTION PANEL, PLASMA Routine 05/30/2025 12:58 AM EDT IA CRITICAL CARE, E/M 30-74 MINUTES Routine 05/29/2025 11:24 PM EDT 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 Poorly-controlled hypertension Agitation requiring sedation protocol Delirium due to multiple etiologies PEP THERAPY Routine 05/29/2025 10:00 PM EDT PEP THERAPY Routine 05/29/2025 6:00 PM EDT POCT GLUCOSE METER UNSOLICITED RESULTS Routine 05/29/2025 5:16 PM EDT IA CRITICAL CARE, ADDL 30 MIN Routine 05/29/2025 2:33 PM EDT 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) Chronic obstructive pulmonary disease, unspecified COPD type (CMS/HCC) H/O ascending aortic replacement Cardiac volume overload Agitation requiring sedation protocol BMI 25.0-25.9,adult Cerebral venous sinus thrombosis Delirium due to multiple etiologies History of right common carotid artery stent placement IA CRITICAL CARE, ADDL 30 MIN Routine 05/29/2025 2:33 PM EDT 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) Chronic obstructive pulmonary disease, unspecified COPD type (CMS/HCC) H/O ascending aortic replacement Cardiac volume overload Agitation requiring sedation protocol BMI 25.0-25.9,adult Cerebral venous sinus thrombosis Delirium due to multiple etiologies History of right common carotid artery stent placement PEP THERAPY Routine 05/29/2025 2:00 PM EDT MAGNESIUM, PLASMA Routine 05/29/2025 1:16 PM EDT RENAL FUNCTION PANEL, PLASMA Routine 05/29/2025 1:16 PM EDT XR ABDOMEN 1 VIEW STAT 05/29/2025 1:14 PM EDT POCT GLUCOSE METER UNSOLICITED RESULTS Routine 05/29/2025 11:29 AM EDT PEP THERAPY Routine 05/29/2025 10:00 AM EDT END TIDAL CO2 MONITORING Routine 05/29/2025 8:00 AM EDT VENTILATOR - ADULT Routine 05/29/2025 8:00 AM EDT SBT - SPONTANEOUS BREATHING TRIAL Routine 05/29/2025 6:00 AM EDT XR CHEST 1 VIEW Routine 05/29/2025 2:05 AM EDT BLOOD GAS PANEL WITH OXIMETRY, MIXED VENOUS Routine 05/29/2025 1:23 AM EDT CBC W/O DIFFERENTIAL Routine 05/29/2025 1:23 AM EDT TRIGLYCERIDES, PLASMA Timed 05/29/2025 1:23 AM EDT MAGNESIUM, PLASMA Routine 05/29/2025 1:23 AM EDT BLOOD GAS PANEL, ARTERIAL Routine 05/29/2025 1:23 AM EDT BASIC METABOLIC PANEL, PLASMA Routine 05/29/2025 1:23 AM EDT IA CRITICAL CARE, E/M 30-74 MINUTES Routine 05/29/2025 12:40 AM EDT 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 Poorly-controlled hypertension H/O transcarotid artery revascularization (TCAR) Agitation requiring sedation protocol Peripheral vascular disease (CMS/HCC) PEP THERAPY Routine 05/28/2025 10:00 PM EDT END TIDAL CO2 MONITORING Routine 05/28/2025 8:00 PM EDT VENTILATOR - ADULT Routine 05/28/2025 8:00 PM EDT PEP THERAPY Routine 05/28/2025 6:00 PM EDT HEMOGLOBIN AND HEMATOCRIT, BLOOD Routine 05/28/2025 5:07 PM EDT BLOOD GAS PANEL, ARTERIAL Routine 05/28/2025 5:06 PM EDT TRANSFUSE RED BLOOD CELLS Routine 05/28/2025 2:06 PM EDT PEP THERAPY Routine 05/28/2025 2:00 PM EDT PREPARE RBC Routine 05/28/2025 1:38 PM EDT IA CRITICAL CARE, ADDL 30 MIN Routine 05/28/2025 12:40 PM EDT 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 Poorly-controlled hypertension H/O transcarotid artery revascularization (TCAR) Cardiac volume overload Agitation requiring sedation protocol IA CRITICAL CARE, E/M 30-74 MINUTES Routine 05/28/2025 12:40 PM EDT 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 Poorly-controlled hypertension H/O transcarotid artery revascularization (TCAR) Cardiac volume overload Agitation requiring sedation protocol CBC W/O DIFFERENTIAL Routine 05/28/2025 12:22 PM EDT MAGNESIUM, PLASMA Add-On 05/28/2025 12:22 PM EDT RENAL FUNCTION PANEL, PLASMA Routine 05/28/2025 12:22 PM EDT POCT ARTERIAL BLOOD GAS GEM UNSOLICITED RESULTS Routine 05/28/2025 12:07 PM EDT PEP THERAPY Routine 05/28/2025 10:00 AM EDT END TIDAL CO2 MONITORING Routine 05/28/2025 8:00 AM EDT VENTILATOR - ADULT Routine 05/28/2025 8:00 AM EDT BLOOD GAS PANEL, ARTERIAL Routine 05/28/2025 7:54 AM EDT HEMOGLOBIN Timed 05/28/2025 6:01 AM EDT HEMATOCRIT, BLOOD Timed 05/28/2025 6:01 AM EDT POTASSIUM, PLASMA Timed 05/28/2025 6:01 AM EDT SBT - SPONTANEOUS BREATHING TRIAL Routine 05/28/2025 6:00 AM EDT PEP THERAPY Routine 05/28/2025 6:00 AM EDT BLOOD GAS PANEL, ARTERIAL Timed 05/28/2025 5:58 AM EDT PHOSPHORUS, PLASMA Routine 05/28/2025 5:13 AM EDT MAGNESIUM, PLASMA Routine 05/28/2025 5:13 AM EDT ECG ADULT Routine 05/28/2025 4:24 AM EDT BLOOD GAS PANEL, ARTERIAL Routine 05/28/2025 4:08 AM EDT BLOOD GAS PANEL WITH OXIMETRY, MIXED VENOUS Routine 05/28/2025 4:06 AM EDT XR CHEST 1 VIEW Routine 05/28/2025 3:27 AM EDT POCT GLUCOSE METER UNSOLICITED RESULTS Routine 05/28/2025 2:16 AM EDT CBC W/O DIFFERENTIAL Timed 05/28/2025 2:09 AM EDT BLOOD GAS PANEL, ARTERIAL Timed 05/28/2025 2:09 AM EDT BASIC METABOLIC PANEL, PLASMA Timed 05/28/2025 2:09 AM EDT BLOOD GAS PANEL, ARTERIAL Timed 05/28/2025 12:14 AM EDT IA CRITICAL CARE, E/M 30-74 MINUTES Routine 05/27/2025 11:43 PM EDT 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) Chronic obstructive pulmonary disease, unspecified COPD type (CMS/HCC) 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 Hyperlipidemia, unspecified hyperlipidemia type Poorly-controlled hypertension POCT GLUCOSE METER UNSOLICITED RESULTS Routine 05/27/2025 10:21 PM EDT BLOOD GAS PANEL, ARTERIAL Timed 05/27/2025 10:17 PM EDT HEMOGLOBIN Timed 05/27/2025 10:16 PM EDT HEMATOCRIT, BLOOD Timed 05/27/2025 10:16 PM EDT POTASSIUM, PLASMA Timed 05/27/2025 10:16 PM EDT PEP THERAPY Routine 05/27/2025 10:00 PM EDT XR ABDOMEN 1 VIEW STAT 05/27/2025 9:34 PM EDT POCT GLUCOSE METER UNSOLICITED RESULTS Routine 05/27/2025 9:23 PM EDT END TIDAL CO2 MONITORING Routine 05/27/2025 8:00 PM EDT VENTILATOR - ADULT Routine 05/27/2025 8:00 PM EDT BLOOD GAS PANEL WITH OXIMETRY, MIXED VENOUS Routine 05/27/2025 7:55 PM EDT XR CHEST 1 VIEW STAT 05/27/2025 7:06 PM EDT XR ABDOMEN 1 VIEW Routine 05/27/2025 7:06 PM EDT END TIDAL CO2 MONITORING Routine 05/27/2025 6:50 PM EDT END TIDAL CO2 MONITORING Routine 05/27/2025 6:50 PM EDT END TIDAL CO2 MONITORING Routine 05/27/2025 6:50 PM EDT SBT - SPONTANEOUS BREATHING TRIAL Routine 05/27/2025 6:50 PM EDT VENTILATOR - ADULT Routine 05/27/2025 6:50 PM EDT VENTILATOR - ADULT Routine 05/27/2025 6:50 PM EDT VENTILATOR - ADULT Routine 05/27/2025 6:50 PM EDT BLOOD GAS PANEL, ARTERIAL STAT 05/27/2025 6:49 PM EDT PEP THERAPY Routine 05/27/2025 6:48 PM EDT PEP THERAPY Routine 05/27/2025 6:48 PM EDT PEP THERAPY Routine 05/27/2025 6:48 PM EDT PEP THERAPY Routine 05/27/2025 6:48 PM EDT PEP THERAPY Routine 05/27/2025 6:48 PM EDT ZARIA AURIS SURVEILLANCE BY PCR Routine 05/27/2025 6:48 PM EDT MULTI DRUG RESISTANCE TEST Routine 05/27/2025 6:48 PM EDT APTT STAT 05/27/2025 6:48 PM EDT PROTHROMBIN TIME(PT) / INR STAT 05/27/2025 6:48 PM EDT CBC W/O DIFFERENTIAL STAT 05/27/2025 6:48 PM EDT PHOSPHORUS, PLASMA STAT 05/27/2025 6:48 PM EDT MAGNESIUM, PLASMA STAT 05/27/2025 6:48 PM EDT BASIC METABOLIC PANEL, PLASMA STAT 05/27/2025 6:48 PM EDT ECG ADULT STAT 05/27/2025 6:38 PM EDT XR CHEST 1 VIEW Routine 05/27/2025 6:07 PM EDT POCT ARTERIAL BLOOD GAS GEM UNSOLICITED RESULTS Routine 05/27/2025 5:42 PM EDT TRANSFUSE FRESH FROZEN PLASMA Routine 05/27/2025 5:13 PM EDT TRANSFUSE RED BLOOD CELLS Routine 05/27/2025 4:50 PM EDT POCT ARTERIAL BLOOD GAS GEM UNSOLICITED RESULTS Routine 05/27/2025 4:48 PM EDT POCT ARTERIAL BLOOD GAS GEM UNSOLICITED RESULTS Routine 05/27/2025 4:29 PM EDT QPLUS Routine 05/27/2025 4:27 PM EDT TRANSFUSE FRESH FROZEN PLASMA Routine 05/27/2025 4:07 PM EDT TRANSFUSE PLATELETS Routine 05/27/2025 4:07 PM EDT PREPARE PLATELETS STAT 05/27/2025 3:58 PM EDT POCT ARTERIAL BLOOD GAS GEM UNSOLICITED RESULTS Routine 05/27/2025 3:43 PM EDT POCT ACT UNSOLICITED RESULTS Routine 05/27/2025 3:40 PM EDT TRANSFUSE FRESH FROZEN PLASMA Routine 05/27/2025 3:36 PM EDT TRANSFUSE FRESH FROZEN PLASMA Routine 05/27/2025 3:36 PM EDT TRANSFUSE CRYOPRECIPITATE Routine 05/27/2025 3:34 PM EDT TRANSFUSE CRYOPRECIPITATE Routine 05/27/2025 3:34 PM EDT TRANSFUSE PLATELETS Routine 05/27/2025 3:34 PM EDT TRANSFUSE PLATELETS Routine 05/27/2025 3:34 PM EDT TRANSFUSE RED BLOOD CELLS Routine 05/27/2025 3:22 PM EDT POCT ARTERIAL BLOOD GAS GEM UNSOLICITED RESULTS Routine 05/27/2025 3:02 PM EDT TEG GLOBAL HEMOSTASIS WITH HEPARINASE STAT 05/27/2025 2:52 PM EDT 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) CBC W/O DIFFERENTIAL STAT 05/27/2025 2:52 PM EDT 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) QPLUS Routine 05/27/2025 2:46 PM EDT PREPARE PLATELETS STAT 05/27/2025 2:46 PM EDT PREPARE CRYOPRECIPITATE STAT 05/27/2025 2:46 PM EDT POCT ARTERIAL BLOOD GAS GEM UNSOLICITED RESULTS Routine 05/27/2025 2:36 PM EDT PREPARE FRESH FROZEN PLASMA STAT 05/27/2025 2:15 PM EDT PREPARE RBC STAT 05/27/2025 2:15 PM EDT TRANSFUSE RED BLOOD CELLS Routine 05/27/2025 2:12 PM EDT POCT ARTERIAL BLOOD GAS GEM UNSOLICITED RESULTS Routine 05/27/2025 2:09 PM EDT SURGICAL PATHOLOGY EXAM Routine 05/27/2025 1:16 PM EDT 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) POCT ARTERIAL BLOOD GAS GEM UNSOLICITED RESULTS Routine 05/27/2025 12:38 PM EDT POCT ARTERIAL BLOOD GAS GEM UNSOLICITED RESULTS Routine 05/27/2025 12:17 PM EDT POCT ARTERIAL BLOOD GAS GEM UNSOLICITED RESULTS Routine 05/27/2025 11:42 AM EDT TRANSFUSE RED BLOOD CELLS Routine 05/27/2025 11:18 AM EDT POCT ARTERIAL BLOOD GAS GEM UNSOLICITED RESULTS Routine 05/27/2025 11:15 AM EDT POCT ACT UNSOLICITED RESULTS Routine 05/27/2025 10:00 AM EDT TRANSFUSE RED BLOOD CELLS Routine 05/27/2025 9:25 AM EDT POCT ARTERIAL BLOOD GAS GEM UNSOLICITED RESULTS Routine 05/27/2025 9:24 AM EDT POCT ACT UNSOLICITED RESULTS Routine 05/27/2025 9:21 AM EDT POCT ARTERIAL BLOOD GAS GEM UNSOLICITED RESULTS Routine 05/27/2025 7:18 AM EDT QPLUS Routine 05/27/2025 7:17 AM EDT TEG GLOBAL HEMOSTASIS WITH LYSIS STAT 05/27/2025 7:16 AM EDT 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) FIBRINOGEN,QUANTITAT SIRIA (CLOTTABLE) STAT 05/27/2025 7:16 AM EDT 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) CBC WITH AUTO DIFFERENTIAL STAT 05/27/2025 7:16 AM EDT 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) POCT ACT UNSOLICITED RESULTS Routine 05/27/2025 7:14 AM EDT PREPARE FRESH FROZEN PLASMA STAT 05/27/2025 7:08 AM EDT PREPARE RBC STAT 05/27/2025 7:08 AM EDT IA -AORT GRF W/CARD BYP F/AORTIC DISSECTION 05/27/2025 6:44 AM EDT 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) TYPE AND SCREEN Routine 05/27/2025 6:28 AM EDT documented in this encounter Results * (ABNORMAL) Renal Function Panel, Plasma (06/07/2025 4:10 AM EDT) Glucose, Plasma 85 74 - 99 mg/dL 06/07/2025 5:03 AM EDT [facility] BUN, Plasma 23 8 - 23 mg/dL 06/07/2025 5:03 AM EDT [facility] Creatinine, Plasma 0.57(L) 0.60 - 1.10 mg/dL 06/07/2025 5:03 AM EDT [facility] BUN/Creatinine Ratio 40 06/07/2025 5:03 AM EDT [facility] Sodium, Plasma 137 136 - 145 mmol/L 06/07/2025 5:03 AM EDT [facility] Potassium, Plasma 3.5(L) 3.6 - 4.9 mmol/L 06/07/2025 5:03 AM EDT [facility] Chloride, Plasma 108(H) 97 - 107 mmol/L 06/07/2025 5:03 AM EDT [facility] CO2, Plasma 18(L) 22 - 29 mmol/L 06/07/2025 5:03 AM EDT [facility] Anion Gap 11 6 - 16 mmol/L 06/07/2025 5:03 AM EDT [facility] Total Calcium, Plasma 8.5(L) 8.9 - 10.2 mg/dL 06/07/2025 5:03 AM EDT [facility] Phosphorus, Plasma 2.3(L) 2.5 - 4.5 mg/dL 06/07/2025 5:03 AM EDT [facility] Albumin, Plasma 3.0(L) 3.5 - 5.2 g/dL 06/07/2025 5:03 AM EDT [facility] eGFRcr 97.3 mL/min/1.7 3m*2 06/07/2025 5:03 AM EDT [facility] Comment:Reported eGFRcr in m L/min/1.73m2 is based the CKD-EPI 2020 equation that does not use a race coefficient. Blood Venous blood specimen / Unknown Venipuncture / Unknown 06/07/2025 4:10 AM EDT 06/07/2025 4:22 AM EDT us Jaxon De La Rosa SAP PP CONSULTANT, DNP LAB BLOOD ORDERABLES Fi nal Result [facility] [address] [place] [address] * Magnesium, Plasma (06/07/2025 4:10 AM EDT) Pathologist [facility] Magnesium, Plasma 2.0 1.9 - 2.4 mg/dL 06/07/2025 5:03 AM EDT [facility] Blood Venous blood specimen / Unknown Venipuncture / Unknown 06/07/2025 4:10 AM EDT 06/07/2025 4:22 AM EDT us Jaxon De La Rosa SAP PP CONSULTANT, DNP LAB BLOOD ORDERABLES Fi nal Result [facility] [address] [place] [address] * (ABNORMAL) CBC W/O Differential (06/07/2025 4:10 AM EDT) [facility] WBC Count 11.61(H) 3.70 - 10.30 10*3/uL LAB HEMATOLOGY METHOD 06/07/2025 4:29 AM EDT [facility] RBC Count 3.38(L) 3.90 - 5.20 10*6/uL LAB HEMATOLOGY METHOD 06/07/2025 4:29 AM EDT [facility] HGB 9.7(L) 11.2 - 15.7 g/dL LAB HEMATOLOGY METHOD 06/07/2025 4:29 AM EDT [facility] HCT 30.4(L) 34.0 - 45.0 % LAB HEMATOLOGY METHOD 06/07/2025 4:29 AM EDT [facility] Platelet Count 381(H) 155 - 369 10*3/uL LAB HEMATOLOGY METHOD 06/07/2025 4:29 AM EDT [facility] MCV 90 79 - 98 fL LAB HEMATOLOGY METHOD 06/07/2025 4:29 AM EDT [facility] MCH 28.7 26.0 - 32.0 pg LAB HEMATOLOGY METHOD 06/07/2025 4:29 AM EDT [facility] MCHC 31.9 30.7 - 35.5 g/dL LAB HEMATOLOGY METHOD 06/07/2025 4:29 AM EDT [facility] RDW 14.9(H) 11.5 - 14.5 % LAB HEMATOLOGY METHOD 06/07/2025 4:29 AM EDT [facility] MPV 10.3 8.8 - 12.5 fL LAB HEMATOLOGY METHOD 06/07/2025 4:29 AM EDT [facility] nRBC 0.0 <=0.0 per 100 WBCs LAB HEMATOLOGY METHOD 06/07/2025 4:29 AM EDT [facility] Blood Venous blood specimen / Unknown Venipuncture / Unknown 06/07/2025 4:10 AM EDT 06/07/2025 4:23 AM EDT us Jaxon De La Rosa SAP PP CONSULTANT, DNP LAB BLOOD ORDERABLES Fi nal Result [facility] [address] [place] [address] * (ABNORMAL) CBC and differential (06/06/2025 10:45 AM EDT) WBC Count 18.13(H) 3.70 - 10.30 10*3/uL LAB HEMATOLOGY METHOD 06/06/2025 11:28 AM EDT [facility] RBC Count 3.50(L) 3.90 - 5.20 10*6/uL LAB HEMATOLOGY METHOD 06/06/2025 11:28 AM EDT [facility] HGB 10.0(L) 11.2 - 15.7 g/dL LAB HEMATOLOGY METHOD 06/06/2025 11:28 AM EDT [facility] HCT 31.3(L) 34.0 - 45.0 % LAB HEMATOLOGY METHOD 06/06/2025 11:28 AM EDT [facility] Platelet Count 441(H) 155 - 369 10*3/uL LAB HEMATOLOGY METHOD 06/06/2025 11:28 AM EDT [facility] MCV 89 79 - 98 fL LAB HEMATOLOGY METHOD 06/06/2025 11:28 AM EDT [facility] MCH 28.6 26.0 - 32.0 pg LAB HEMATOLOGY METHOD 06/06/2025 11:28 AM EDT [facility] MCHC 31.9 30.7 - 35.5 g/dL LAB HEMATOLOGY METHOD 06/06/2025 11:28 AM EDT [facility] RDW 15.6(H) 11.5 - 14.5 % LAB HEMATOLOGY METHOD 06/06/2025 11:28 AM EDT [facility] MPV 11.0 8.8 - 12.5 fL LAB HEMATOLOGY METHOD 06/06/2025 11:28 AM EDT [facility] nRBC 0.0 <=0.0 per 100 WBCs LAB HEMATOLOGY METHOD 06/06/2025 11:28 AM EDT [facility] Differential Type Automated LAB HEMATOLOGY METHOD 06/06/2025 11:28 AM EDT [facility] Neutrophils % 84 % LAB HEMATOLOGY METHOD 06/06/2025 11:28 AM EDT [facility] Lymphocytes % 9 % LAB HEMATOLOGY METHOD 06/06/2025 11:28 AM EDT [facility] Monocytes % 4 % LAB HEMATOLOGY METHOD 06/06/2025 11:28 AM EDT [facility] Eosinophils % 2 % LAB HEMATOLOGY METHOD 06/06/2025 11:28 AM EDT [facility] Basophils % 0 % LAB HEMATOLOGY METHOD 06/06/2025 11:28 AM EDT [facility] Immature Granulocytes % 1 % LAB HEMATOLOGY METHOD 06/06/2025 11:28 AM EDT [facility] Neutrophils Absolute 15.33(H) 1.60 - 6.10 10*3/uL LAB HEMATOLOGY METHOD 06/06/2025 11:28 AM EDT [facility] Lymphocytes Absolute 1.65 1.20 - 3.90 10*3/uL LAB HEMATOLOGY METHOD 06/06/2025 11:28 AM EDT [facility] Monocytes Absolute 0.67 0.30 - 0.90 10*3/uL LAB HEMATOLOGY METHOD 06/06/2025 11:28 AM EDT [facility] Eosinophils Absolute 0.27 0.00 - 0.50 10*3/uL LAB HEMATOLOGY METHOD 06/06/2025 11:28 AM EDT [facility] Basophils Absolute 0.05 0.00 - 0.10 10*3/uL LAB HEMATOLOGY METHOD 06/06/2025 11:28 AM EDT [facility] Immature Granulocytes Absolute 0.16(H) 0.00 - 0.06 10*3/uL LAB HEMATOLOGY METHOD 06/06/2025 11:28 AM EDT [facility] Blood Venous blood specimen / Unknown Venipuncture / Unknown 06/06/2025 10:45 AM EDT 06/06/2025 11:09 AM EDT Narrative [facility] - 06/06/2025 11:28 AM EDT Therapeutic decision making should be based on absolute values, rather than percentages. us Jose C Nicholson MD LAB BLOOD ORDERABLES Final Resu lt [facility] [address] [place] [address] * (ABNORMAL) CBC W/O Differential (06/06/2025 6:31 AM EDT) [facility] Signature WBC Count 23.77(H) 3.70 - 10.30 10*3/uL LAB HEMATOLOGY METHOD 06/06/2025 6:59 AM EDT [facility] RBC Count 3.64(L) 3.90 - 5.20 10*6/uL LAB HEMATOLOGY METHOD 06/06/2025 6:59 AM EDT [facility] HGB 10.5(L) 11.2 - 15.7 g/dL LAB HEMATOLOGY METHOD 06/06/2025 6:59 AM EDT [facility] HCT 32.9(L) 34.0 - 45.0 % LAB HEMATOLOGY METHOD 06/06/2025 6:59 AM EDT [facility] Platelet Count 371(H) 155 - 369 10*3/uL LAB HEMATOLOGY METHOD 06/06/2025 6:59 AM EDT [facility] MCV 90 79 - 98 fL LAB HEMATOLOGY METHOD 06/06/2025 6:59 AM EDT [facility] MCH 28.8 26.0 - 32.0 pg LAB HEMATOLOGY METHOD 06/06/2025 6:59 AM EDT [facility] MCHC 31.9 30.7 - 35.5 g/dL LAB HEMATOLOGY METHOD 06/06/2025 6:59 AM EDT [facility] RDW 15.1(H) 11.5 - 14.5 % LAB HEMATOLOGY METHOD 06/06/2025 6:59 AM EDT [facility] MPV 10.6 8.8 - 12.5 fL LAB HEMATOLOGY METHOD 06/06/2025 6:59 AM EDT [facility] nRBC 0.0 <=0.0 per 100 WBCs LAB HEMATOLOGY METHOD 06/06/2025 6:59 AM EDT [facility] Blood Venous blood specimen / Unknown Venipuncture / Unknown 06/06/2025 6:31 AM EDT 06/06/2025 6:49 AM EDT Jaxon De La Rosa APRN, DNP LAB BLOOD ORDERABLES Fi nal Result Performing Organization Address [facility] Co de Phone Number [facility] [address] [place] [address] * (ABNORMAL) Procalcitonin (06/06/2025 5:45 AM EDT) [facility] Signature Procalcitonin, Plasma 0.12(H) <0.09 ng/mL 06/06/2025 6:50 AM EDT [facility] Blood Venous blood specimen / Unknown Venipuncture / Unknown 06/06/2025 5:45 AM EDT 06/06/2025 6:16 AM EDT Narrative [facility] - 06/06/2025 6:50 AM EDT Procalcitonin concentrations in healthy individuals are <0.09 ng/mL. Published data support the following interpretive risk assessment: An elevated procalcitonin result does not always indicate sepsis. Various non-infectious conditions are known to increase procalcitonin. Results should be considered in the context of clinical symptoms and other laboratory tests. Procalcitonin >2.0 ng/mL: Concentrations >2.0 ng/mL on the first day of ICU admission are associated with a higher risk of progression to severe sepsis and/or septic shock. The change in PCT over time may help predict 28 day mortality risk. Please consult [email or web address] for more information. Test performed at [facility]. us Jaxon De La Rosa APRN, DNP LAB BLOOD ORDERABLES Fi nal Result Performing Organization Address City/[facility]/ZIP Co de Phone Number [facility] [address] [place] [address] * LACTIC ACID, VENOUS (06/06/2025 5:45 AM EDT) [facility] Lactate, Venous, Whole Blood 1.4 0.5 - 2.2 mmol/L LAB HEMATOLOGY METHOD 06/06/2025 6:02 AM EDT [facility] Blood Venous blood specimen / Unknown Venipuncture / Unknown 06/06/2025 5:45 AM EDT 06/06/2025 6:00 AM EDT Jaxon De La Rosa APRN, DNP LAB BLOOD ORDERABLES Fi nal Result Performing Organization Address City/[facility]/ZIP Co de Phone Number [facility] [address] [place] [address] * Blood Culture (Aerobic/Anaerobet Set) (06/06/2025 5:45 AM EDT) [facility] Culture No growth at day 5 SRINIVAS 06/11/2025 8:02 AM EDT [facility] Blood Structure of antecubital vein / Unknown Venipuncture / Unknown 06/06/2025 5:45 AM EDT 06/06/2025 7:46 AM EDT Jaxon De La Rosa APRN, DNP LAB MICROBIOLOGY - GENE RAL ORDERABLES Final Result Performing Organization Address [facility] [place] [address] * (ABNORMAL) Renal Function Panel, Plasma (06/06/2025 5:01 AM EDT) [facility] Glucose, Plasma 114(H) 74 - 99 mg/dL 06/06/2025 5:53 AM EDT [facility] BUN, Plasma 33(H) 8 - 23 mg/dL 06/06/2025 5:53 AM EDT [facility] Creatinine, Plasma 0.75 0.60 - 1.10 mg/dL 06/06/2025 5:53 AM EDT [facility] BUN/Creatinine Ratio 44 06/06/2025 5:53 AM EDT [facility] Sodium, Plasma 138 136 - 145 mmol/L 06/06/2025 5:53 AM EDT [facility] Potassium, Plasma 4.7 3.6 - 4.9 mmol/L 06/06/2025 5:53 AM EDT [facility] Chloride, Plasma 106 97 - 107 mmol/L 06/06/2025 5:53 AM EDT [facility] CO2, Plasma 18(L) 22 - 29 mmol/L 06/06/2025 5:53 AM EDT [facility] Anion Gap 14 6 - 16 mmol/L 06/06/2025 5:53 AM EDT [facility] Total Calcium, Plasma 8.8(L) 8.9 - 10.2 mg/dL 06/06/2025 5:53 AM EDT [facility] Phosphorus, Plasma 3.7 2.5 - 4.5 mg/dL 06/06/2025 5:53 AM EDT [facility] Albumin, Plasma 3.1(L) 3.5 - 5.2 g/dL 06/06/2025 5:53 AM EDT [facility] eGFRcr 85.2 mL/min/1.7 3m*2 06/06/2025 5:53 AM EDT [facility] Comment:Reported eGFRcr in m L/min/1.73m2 is based the CKD-EPI 2020 equation that does not use a race coefficient. Blood Venous blood specimen / Unknown Venipuncture / Unknown 06/06/2025 5:01 AM EDT 06/06/2025 5:23 AM EDT Jaxon De La Rosa APRN, DNP LAB BLOOD ORDERABLES Fi nal Result [facility] [address] [place] [address] * (ABNORMAL) Magnesium, Plasma (06/06/2025 5:01 AM EDT) Magnesium, Plasma 2.7(H) 1.9 - 2.4 mg/dL 06/06/2025 5:53 AM EDT [facility] Blood Venous blood specimen / Unknown Venipuncture / Unknown 06/06/2025 5:01 AM EDT 06/06/2025 5:23 AM EDT us Jaxon De La Rosa SAP PP CONSULTANT, DNP LAB BLOOD ORDERABLES Fi nal Result [facility] [place] [place] [address] [place] [address] * CT Angio Neck (06/06/2025 12:59 AM EDT) Anatomical Region Laterality Modality Carotid Artery Computed Tomogra phy Impressions 06/06/2025 3:07 AM EDT * Progressive severe focal narrowing of the V3 segment of the right vertebral artery which may reflect a small chronic dissection or prominent atherosclerotic plaque. * Otherwise, no evidence of hemodynamically significant stenosis or abnormality involving the major intra- and extra-cranial arteries. * Occlusive thrombus in the left transverse sinus through internal jugular vein. Nonopacification of the left brachiocephalic vein or draining veins. * Please refer to separately interpreted chest CT report for detailed findings related to the thorax. CRITICAL RESULT: Yes. COMMUNICATION: Per this written report. An urgent [employer] secured message was sent to the responding clinician, JAXON DE LA ROSA, by Jemal Lei MD on 06/06/2025 3:02 AM. Receipt of understanding via secured messaging was provided by the responding clinician, JAXON DE LA ROSA, by Jemal Lei MD on 06/06/2025 3:04 AM. Drafted by Jemal Lei MD on 06/06/2025 2:49 AM Final report signed by Jemal Lei MD on 06/06/2025 3:07 AM Narrative 06/06/2025 3:07 AM EDT CLINICAL INDICATION: Headache, sudden, severe TECHNIQUE: Head CTA: Axial images were obtained through the head during contrast bolus injection and multiplanar MIP images were created. Neck CTA: Axial images were obtained through the neck during bolus contrast injection and multiplanar reformatted and MIP images were created. 100 mL of Omnipaque 350 were administered intravenously. Total DLP (Dose-Length Product): 792.33 mGy.cm (accession [id number]), 792.33 mGy.cm (accession [id number]). Please note: The reported value represents the total of one or more individual components during the CT acquisition on this date and at this time, and as such, the same value may appear in more than one CT report depending on the interpreting/reporting physicians. COMPARISON: MRA head 01/09/2023; CTV head 01/07/2023 FINDINGS: Neck CTA: Diagnostic Quality: Adequate Aorta and Great Vessel Origins: There is a common origin of the brachiocephalic and left common carotid arteries. The origin of the brachiocephalic and left common carotid arteries is outside the field of view. Otherwise, there is no significant stenosis of the origins of the great arteries of the neck. Right Cervical Carotid System: The right common carotid artery and its origin are patent. There is no significant atherosclerotic plaque at the carotid bifurcation. Stents spanning the common and internal carotid arteries. There is a less than 25% stenosis at the bifurcation by NASCET criteria. The right internal carotid artery demonstrates a tortuous course in the cervical region. There is no evidence of dissection or pseudoaneurysm of the right common and internal carotid arteries. Left Cervical Carotid System: The left common carotid artery and its origin are patent. There is no significant atherosclerotic plaque at the carotid bifurcation. There is a a less than 25% stenosis at the bifurcation by NASCET criteria. The left internal carotid artery demonstrates a retropharyngeal course. There is no evidence of dissection or pseudoaneurysm of the left common and internal carotid arteries. Vertebral arteries: The origins appear patent. Severe focal narrowing of the V3 segment of the right vertebral artery. Other Findings: There is reversal of the typical cervical lordosis which may be secondary to position or muscle spasm. Mild multilevel degenerative changes of the cervical spine without evidence of high-grade osseous spinal canal or neuroforaminal narrowing. Please refer to separately interpreted chest CT report for detailed findings related to the thorax. Nonopacification of the left brachiocephalic vein or draining veins. Head CTA: Diagnostic Quality: Adequate Vertebrobasilar System: The intradural vertebral arteries are normal in appearance without significant stenosis. The basilar artery and its major branches are within normal limits. There is no aneurysm. Carotid Arteries: Right ICA: No significant atherosclerotic plaque or stenosis. Left ICA: No significant atherosclerotic plaque or stenosis. Other Findings: There is no aneurysm of either internal carotid artery. [place] and Major Peripheral Branches: There is an anterior communicating artery. There is a right posterior communicating artery. A left posterior communicating arteries are not definitively visualized. There is no significant stenosis or occlusion. There is no aneurysm. Other Findings: Nonopacification of the mid and distal left transverse sinus through visualized internal jugular vein. Right septal deviation. The paranasal sinuses, mastoid air cells, and middle ear canals are well-aerated. The orbits and globes are unremarkable. Procedure Note Jemal Lei MD - 06/06/2025 CLINICAL INDICATION: Headache, sudden, severe TECHNIQUE: Head CTA: Axial images were obtained through the head during contrastbolus injection and multiplanar MIP images were created. Neck CTA: Axial images were obtained through the neck during boluscontrast injection and multiplanar reformatted and MIP images werecreated. 100 mL of Omnipaque 350 were administered intravenously. Total DLP (Dose-Length Product): 792.33 mGy.cm (accession [id number]),792.33 mGy.cm (accession [id number]). Please note: The reported valuerepresents the total of one or more individual components during the CTacquisition on this date and at this time, and as such, the same value mayappear in more than one CT report depending on the interpreting/reportingphysicians. COMPARISON: MRA head 01/09/2023; CTV head 01/07/2023 FINDINGS: Neck CTA: Diagnostic Quality: Adequate Aorta and Great Vessel Origins: There is a common origin of thebrachiocephalic and left common carotid arteries. The origin of thebrachiocephalic and left common carotid arteries is outside the field ofview. Otherwise, there is no significant stenosis of the origins of thegreat arteries of the neck. Right Cervical Carotid System: The right common carotid artery and itsorigin are patent. There is no significant atherosclerotic plaque at thecarotid bifurcation. Stents spanning the common and internal carotidarteries. There is a less than 25% stenosis at the bifurcation by NASCETcriteria. The right internal carotid artery demonstrates a tortuous coursein the cervical region. There is no evidence of dissection orpseudoaneurysm of the right common and internal carotid arteries. Left Cervical Carotid System: The left common carotid artery and itsorigin are patent. There is no significant atherosclerotic plaque at thecarotid bifurcation. There is a a less than 25% stenosis at thebifurcation by NASCET criteria. The left internal carotid arterydemonstrates a retropharyngeal course. There is no evidence of dissectionor pseudoaneurysm of the left common and internal carotid arteries. Vertebral arteries: The origins appear patent. Severe focal narrowing ofthe V3 segment of the right vertebral artery. Other Findings: There is reversal of the typical cervical lordosis whichmay be secondary to position or muscle spasm. Mild multilevel degenerativechanges of the cervical spine without evidence of high-grade osseousspinal canal or neuroforaminal narrowing. Please refer to separately interpreted chest CT report for detailedfindings related to the thorax. Nonopacification of the left brachiocephalic vein or draining veins. Head CTA: Diagnostic Quality: Adequate Vertebrobasilar System: The intradural vertebral arteries are normal inappearance without significant stenosis. The basilar artery and its majorbranches are within normal limits. There is no aneurysm. Carotid Arteries: Right ICA: No significant atherosclerotic plaque or stenosis. Left ICA: No significant atherosclerotic plaque or stenosis. Other Findings: There is no aneurysm of either internal carotid artery. [place] and Major Peripheral Branches: There is an anteriorcommunicating artery. There is a right posterior communicating artery. Aleft posterior communicating arteries are not definitively visualized. There is no significant stenosis or occlusion. There is no aneurysm. Other Findings: Nonopacification of the mid and distal left transversesinus through visualized internal jugular vein. Right septal deviation. The paranasal sinuses, mastoid air cells, andmiddle ear canals are well-aerated. The orbits and globes areunremarkable. IMPRESSION: *Progressive severe focal narrowing of the V3 segment of the rightvertebral artery which may reflect a small chronic dissection or prominentatherosclerotic plaque. *Otherwise, no evidence of hemodynamically significant stenosis orabnormality involving the major intra- and extra-cranial arteries. *Occlusive thrombus in the left transverse sinus through internal jugularvein. Nonopacification of the left brachiocephalic vein or drainingveins. *Please refer to separately interpreted chest CT report for detailedfindings related to the thorax. CRITICAL RESULT: Yes. COMMUNICATION: Per this written report. An urgent [employer] secured message was sent to the responding clinician,JAXON DE LA ROSA, by Jemal Lei MD on 06/06/2025 3:02 AM. Receipt of understanding via secured messaging was provided by theresponding clinician, JAXON DE LA ROSA, by Jemal Lei MD on 53:04 AM. Drafted by Jemal Lei MD on 06/06/2025 2:49 AM Final report signed by Jemal Lei MD on 06/06/2025 3:07 AM Jaxon De La Rosa SAP PP CONSULTANT, DNP IMG CT PROCEDURES Final Result * CT Angio Head (06/06/2025 12:59 AM EDT) Anatomical Region Laterality Modality [place] Computed Tomogr aphy Impressions 06/06/2025 3:07 AM EDT * Progressive severe focal narrowing of the V3 segment of the right vertebral artery which may reflect a small chronic dissection or prominent atherosclerotic plaque. * Otherwise, no evidence of hemodynamically significant stenosis or abnormality involving the major intra- and extra-cranial arteries. * Occlusive thrombus in the left transverse sinus through internal jugular vein. Nonopacification of the left brachiocephalic vein or draining veins. * Please refer to separately interpreted chest CT report for detailed findings related to the thorax. CRITICAL RESULT: Yes. COMMUNICATION: Per this written report. An urgent [employer] secured message was sent to the responding clinician, JAXON DE LA ROSA, by Jemal Lei MD on 06/06/2025 3:02 AM. Receipt of understanding via secured messaging was provided by the responding clinician, JAXON DE LA ROSA, by Jemal Lei MD on 06/06/2025 3:04 AM. Drafted by Jemal Lei MD on 06/06/2025 2:49 AM Final report signed by Jemal Lei MD on 06/06/2025 3:07 AM Narrative 06/06/2025 3:07 AM EDT CLINICAL INDICATION: Headache, sudden, severe TECHNIQUE: Head CTA: Axial images were obtained through the head during contrast bolus injection and multiplanar MIP images were created. Neck CTA: Axial images were obtained through the neck during bolus contrast injection and multiplanar reformatted and MIP images were created. 100 mL of Omnipaque 350 were administered intravenously. Total DLP (Dose-Length Product): 792.33 mGy.cm (accession [id number]), 792.33 mGy.cm (accession [id number]). Please note: The reported value represents the total of one or more individual components during the CT acquisition on this date and at this time, and as such, the same value may appear in more than one CT report depending on the interpreting/reporting physicians. COMPARISON: MRA head 01/09/2023; CTV head 01/07/2023 FINDINGS: Neck CTA: Diagnostic Quality: Adequate Aorta and Great Vessel Origins: There is a common origin of the brachiocephalic and left common carotid arteries. The origin of the brachiocephalic and left common carotid arteries is outside the field of view. Otherwise, there is no significant stenosis of the origins of the great arteries of the neck. Right Cervical Carotid System: The right common carotid artery and its origin are patent. There is no significant atherosclerotic plaque at the carotid bifurcation. Stents spanning the common and internal carotid arteries. There is a less than 25% stenosis at the bifurcation by NASCET criteria. The right internal carotid artery demonstrates a tortuous course in the cervical region. There is no evidence of dissection or pseudoaneurysm of the right common and internal carotid arteries. Left Cervical Carotid System: The left common carotid artery and its origin are patent. There is no significant atherosclerotic plaque at the carotid bifurcation. There is a a less than 25% stenosis at the bifurcation by NASCET criteria. The left internal carotid artery demonstrates a retropharyngeal course. There is no evidence of dissection or pseudoaneurysm of the left common and internal carotid arteries. Vertebral arteries: The origins appear patent. Severe focal narrowing of the V3 segment of the right vertebral artery. Other Findings: There is reversal of the typical cervical lordosis which may be secondary to position or muscle spasm. Mild multilevel degenerative changes of the cervical spine without evidence of high-grade osseous spinal canal or neuroforaminal narrowing. Please refer to separately interpreted chest CT report for detailed findings related to the thorax. Nonopacification of the left brachiocephalic vein or draining veins. Head CTA: Diagnostic Quality: Adequate Vertebrobasilar System: The intradural vertebral arteries are normal in appearance without significant stenosis. The basilar artery and its major branches are within normal limits. There is no aneurysm. Carotid Arteries: Right ICA: No significant atherosclerotic plaque or stenosis. Left ICA: No significant atherosclerotic plaque or stenosis. Other Findings: There is no aneurysm of either internal carotid artery. [place] and Major Peripheral Branches: There is an anterior communicating artery. There is a right posterior communicating artery. A left posterior communicating arteries are not definitively visualized. There is no significant stenosis or occlusion. There is no aneurysm. Other Findings: Nonopacification of the mid and distal left transverse sinus through visualized internal jugular vein. Right septal deviation. The paranasal sinuses, mastoid air cells, and middle ear canals are well-aerated. The orbits and globes are unremarkable. Procedure Note Jemal Lei MD - 06/06/2025 CLINICAL INDICATION: Headache, sudden, severe TECHNIQUE: Head CTA: Axial images were obtained through the head during contrastbolus injection and multiplanar MIP images were created. Neck CTA: Axial images were obtained through the neck during boluscontrast injection and multiplanar reformatted and MIP images werecreated. 100 mL of Omnipaque 350 were administered intravenously. Total DLP (Dose-Length Product): 792.33 mGy.cm (accession [id number]),792.33 mGy.cm (accession [id number]). Please note: The reported valuerepresents the total of one or more individual components during the CTacquisition on this date and at this time, and as such, the same value mayappear in more than one CT report depending on the interpreting/reportingphysicians. COMPARISON: MRA head 01/09/2023; CTV head 01/07/2023 FINDINGS: Neck CTA: Diagnostic Quality: Adequate Aorta and Great Vessel Origins: There is a common origin of thebrachiocephalic and left common carotid arteries. The origin of thebrachiocephalic and left common carotid arteries is outside the field ofview. Otherwise, there is no significant stenosis of the origins of thegreat arteries of the neck. Right Cervical Carotid System: The right common carotid artery and itsorigin are patent. There is no significant atherosclerotic plaque at thecarotid bifurcation. Stents spanning the common and internal carotidarteries. There is a less than 25% stenosis at the bifurcation by NASCETcriteria. The right internal carotid artery demonstrates a tortuous coursein the cervical region. There is no evidence of dissection orpseudoaneurysm of the right common and internal carotid arteries. Left Cervical Carotid System: The left common carotid artery and itsorigin are patent. There is no significant atherosclerotic plaque at thecarotid bifurcation. There is a a less than 25% stenosis at thebifurcation by NASCET criteria. The left internal carotid arterydemonstrates a retropharyngeal course. There is no evidence of dissectionor pseudoaneurysm of the left common and internal carotid arteries. Vertebral arteries: The origins appear patent. Severe focal narrowing ofthe V3 segment of the right vertebral artery. Other Findings: There is reversal of the typical cervical lordosis whichmay be secondary to position or muscle spasm. Mild multilevel degenerativechanges of the cervical spine without evidence of high-grade osseousspinal canal or neuroforaminal narrowing. Please refer to separately interpreted chest CT report for detailedfindings related to the thorax. Nonopacification of the left brachiocephalic vein or draining veins. Head CTA: Diagnostic Quality: Adequate Vertebrobasilar System: The intradural vertebral arteries are normal inappearance without significant stenosis. The basilar artery and its majorbranches are within normal limits. There is no aneurysm. Carotid Arteries: Right ICA: No significant atherosclerotic plaque or stenosis. Left ICA: No significant atherosclerotic plaque or stenosis. Other Findings: There is no aneurysm of either internal carotid artery. [place] and Major Peripheral Branches: There is an anteriorcommunicating artery. There is a right posterior communicating artery. Aleft posterior communicating arteries are not definitively visualized. There is no significant stenosis or occlusion. There is no aneurysm. Other Findings: Nonopacification of the mid and distal left transversesinus through visualized internal jugular vein. Right septal deviation. The paranasal sinuses, mastoid air cells, andmiddle ear canals are well-aerated. The orbits and globes areunremarkable. IMPRESSION: *Progressive severe focal narrowing of the V3 segment of the rightvertebral artery which may reflect a small chronic dissection or prominentatherosclerotic plaque. *Otherwise, no evidence of hemodynamically significant stenosis orabnormality involving the major intra- and extra-cranial arteries. *Occlusive thrombus in the left transverse sinus through internal jugularvein. Nonopacification of the left brachiocephalic vein or drainingveins. *Please refer to separately interpreted chest CT report for detailedfindings related to the thorax. CRITICAL RESULT: Yes. COMMUNICATION: Per this written report. An urgent Epic secured message was sent to the responding clinician,JAXNO DE LA ROSA, by Jemal Lei MD on 06/06/2025 3:02 AM. Receipt of understanding via secured messaging was provided by theresponding clinician, JAXON DE LA ROSA, by Jemal Lei MD on 53:04 AM. 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 Aneurysmal dilation of the abdominal aorta, incompletely visualized. Postsurgical changes related to repair of the aortic root and descending thoracic aorta. * Small amount of nodular consolidation in the right lower lobe which could reflect aspiration or pneumonia. Small right pleural effusion. * The left brachiocephalic vein is not well characterized. There is enhancement of the distal left internal jugular vein; however, there is nonenhancement of the more proximal segments. Please refer to separately interpreted neck CTA report for detailed findings related to the neck. * Small fluid collection in the anterior soft tissues of the neck extending to the sternotomy site which may reflect postsurgical changes/seroma. A postsurgical abscess could be considered in the appropriate clinical setting. CRITICAL RESULT: No. COMMUNICATION: Per this written report. Drafted by Jemal Lei MD on 06/06/2025 3:15 AM Final report signed by Jemal Lei MD on 06/06/2025 3:29 AM Narrative 06/06/2025 3:29 AM EDT CLINICAL INDICATION: Aortic aneurysm suspected TECHNIQUE: Imaging of the chest was performed, from thoracic inlet through upper abdomen, using spiral technique, following administration of IV contrast, Omnipaque 350, 100 mL according to the CTA thoracic aorta protocol. Reformatted images in the coronal, sagittal, and oblique planes were generated from the axial data set to facilitate diagnostic accuracy. In addition, 3D images were created and reviewed. Total DLP (Dose-Length Product): 792.33 mGy.cm. Please note: The reported value represents the total of one or more individual components during the CT acquisition on this date and at this time, and as such, the same value may appear in more than one CT report depending on the interpreting/reporting physicians. COMPARISON: None. FINDINGS: Chest: Aorta/Vessels: No acute traumatic aortic injury. 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 Circumferential hypodensity in the thoracic aorta with region of displaced calcifications along the lateral margin of the descending thoracic aorta which could reflect chronic dissection with overlying mural thrombus. Enhancement within the distal internal jugular vein. The left brachiocephalic vein is not well visualized. Aneurysmal dilation of the superior abdominal aorta measuring at least up to 4.4 cm. Pleural/Pericardial Space: No pneumothorax. Trace right pleural effusion. No pericardial effusion. Lymph Nodes: No lymphadenopathy within the chest. Lungs: The central airways are patent. Mild apical subpleural emphysema. Small amount of nodular consolidation in the right lower lobe. Mediastinum: The visualized thyroid is unremarkable. The heart is within normal limits for size. While this study is not optimized for the assessment of coronary artery atherosclerotic plaque and may underestimated the plaque burden, there are moderate atherosclerotic calcifications of the coronary arteries. Small volume pneumomediastinum. Chest Wall: 1.6 x 2.1 x 2.1 cm fluid collection in the supraclavicular space, anterior to the inferior aspect of the thyroid, and extending to the sternotomy margin. Multiple surgical clips in the superior mediastinum. Bones: No acute fracture within the chest. There are degenerative changes of the visualized spine. No evidence for suspicious lytic or blastic lesions. Status post median sternotomy, the visualized wires are unchanged. Upper Abdomen: Unremarkable. Procedure Note Jemal Lei MD - 06/06/2025 CLINICAL INDICATION: Aortic aneurysm suspected TECHNIQUE: Imaging of the chest was performed, from thoracic inlet through upperabdomen, using spiral technique, following administration of IV contrast,Omnipaque 350, 100 mL according to the CTA thoracic aorta protocol.Reformatted images in the coronal, sagittal, and oblique planes weregenerated from the axial data set to facilitate diagnostic accuracy. Inaddition, 3D images were created and reviewed. Total DLP (Dose-Length Product): 792.33 mGy.cm. Please note: The reportedvalue represents the total of one or more individual components during theCT acquisition on this date and at this time, and as such, the same valuemay appear in more than one CT report depending on theinterpreting/reporting physicians. COMPARISON: None. FINDINGS: Chest: Aorta/Vessels: No acute traumatic aortic injury. Status post aortic rootreplacement extending to the anterior arch. Marked aneurysmal dilation ofthe distal arch and descending thoracic aorta measuring up to 6.4 x 6.1cm. Circumferential hypodensity in the thoracic aorta with region ofdisplaced calcifications along the lateral margin of the descendingthoracic aorta which could reflect chronic dissection with overlying muralthrombus. Enhancement within the distal internal jugular vein. The leftbrachiocephalic vein is not well visualized. Aneurysmal dilation of the superior abdominal aorta measuring at least upto 4.4 cm. Pleural/Pericardial Space: No pneumothorax. Trace right pleural effusion.No pericardial effusion. Lymph Nodes: No lymphadenopathy within the chest. Lungs: The central airways are patent. Mild apical subpleural emphysema.Small amount of nodular consolidation in the right lower lobe. Mediastinum: The visualized thyroid is unremarkable. The heart is withinnormal limits for size. While this study is not optimized for theassessment of coronary artery atherosclerotic plaque and mayunderestimated the plaque burden, there are moderate atheroscleroticcalcifications of the coronary arteries. Small volume pneumomediastinum. Chest Wall: 1.6 x 2.1 x 2.1 cm fluid collection in the supraclavicularspace, anterior to the inferior aspect of the thyroid, and extending tothe sternotomy margin. Multiple surgical clips in the superiormediastinum. Bones: No acute fracture within the chest. There are degenerative changesof the visualized spine. No evidence for suspicious lytic or blasticlesions. Status post median sternotomy, the visualized wires areunchanged. Upper Abdomen: Unremarkable. IMPRESSION: *Markedly aneurysmal dilation of the distal aortic arch and descendingthoracic aorta. Aneurysmal dilation of the abdominal aorta, incompletelyvisualized. Postsurgical changes related to repair of the aortic root anddescending thoracic aorta. *Small amount of nodular consolidation in the right lower lobe whichcould reflect aspiration or pneumonia. Small right pleural effusion. *The left brachiocephalic vein is not well characterized. There isenhancement of the distal left internal jugular vein; however, there isnonenhancement of the more proximal segments. Please refer to separatelyinterpreted neck CTA report for detailed findings related to the neck. *Small fluid collection in the anterior soft tissues of the neckextending to the sternotomy site which may reflect postsurgicalchanges/seroma. A postsurgical abscess could be considered in theappropriate clinical setting. CRITICAL RESULT: No. COMMUNICATION: Per this written report. Drafted by Jemal Lei MD on 06/06/2025 3:15 AM Final report signed by Jemal Lei MD on 06/06/2025 3:29 AM Jaxon De La Rosa APRN, DNP IMG CT PROCEDURES Final Result * IA CRITICAL CARE, E/M 30-74 MINUTES (06/05/2025 11:06 PM EDT) Narrative Jaxon De La Rosa APRN, DNP - 06/05/2025 11:06 PM EDT Jaxon De La Rosa APRN, DNP 06/06/2025 5:14 AM Critical Care Performed by: Jaxon De La Rosa APRN, DNP Authorized by: Jaxon De La Rosa APRN, DNP Critical care provider statement: Critical care time (minutes): 75 Critical care was time spent personally by me on the following activities: Discussions with consultants, discussions with primary provider, evaluation of patient's response to treatment, examination of patient, obtaining history from patient or surrogate, ordering and performing treatments and interventions, ordering and review of laboratory studies, ordering and review of radiographic studies, review of old charts and development of treatment plan with patient or surrogate I assumed subsequent critical care for this patient from a provider in my division, on the same day: no Comments: The patient is critically ill with: Post op aneurysm repair, Hermiarch, leukocytosis, electrolyte abnormality, thrombus, infectious work up . They require complex decision making. The patient was seen on rounds with critical care physician, Dr. Rios and they are in agreement with the plan of care. Pharmacy, respiratory and nursing services were present on rounds. us Jaxon De La Rosa APRN, DNP IN CLINIC/BEDSIDE ORDER AMBROSE Final Result * (ABNORMAL) Blood gas panel with oximetry, mixed venous (06/05/2025 10:05 PM EDT) pH, Mixed Venous 7.37 7.32 - 7.43 LAB HEMATOLOGY METHOD 06/05/2025 10:29 PM EDT [facility] pCO2, Mixed Venous 36(L) 37 - 52 mmHg LAB HEMATOLOGY METHOD 06/05/2025 10:29 PM EDT [facility] pO2, Mixed Venous 67(H) 25 - 40 mmHg LAB HEMATOLOGY METHOD 06/05/2025 10:29 PM EDT [facility] SO2, Measured, Mixed Venous 91(H) 65 - 80 % LAB HEMATOLOGY METHOD 06/05/2025 10:29 PM EDT [facility] Bicarbonate, Calculated, Mixed Venous 21(L) 22 - 26 mmol/L LAB HEMATOLOGY METHOD 06/05/2025 10:29 PM EDT [facility] Base Excess, Mixed Venous -3.7(L) -2.0 - 3.0 mmol/L LAB HEMATOLOGY METHOD 06/05/2025 10:29 PM EDT [facility] Hematocrit, Whole Blood 34.9 34.0 - 45.0 % LAB HEMATOLOGY METHOD 06/05/2025 10:29 PM EDT [facility] Sodium, Whole Blood 138 136 - 145 mmol/L LAB HEMATOLOGY METHOD 06/05/2025 10:29 PM EDT [facility] Potassium, Whole Blood 3.8 3.6 - 4.9 mmol/L LAB HEMATOLOGY METHOD 06/05/2025 10:29 PM EDT [facility] Chloride, Whole Blood 107 97 - 107 mmol/L LAB HEMATOLOGY METHOD 06/05/2025 10:29 PM EDT [facility] Ionized Calcium, Whole Blood 4.7 4.6 - 5.1 mg/dL LAB HEMATOLOGY METHOD 06/05/2025 10:29 PM EDT [facility] Glucose, Whole Blood 130(H) 74 - 99 mg/dL LAB HEMATOLOGY METHOD 06/05/2025 10:29 PM EDT [facility] Oxyhemoglobin, Mixed Venous, Whole Blood 89.9(H) 40.0 - 70.0 % LAB HEMATOLOGY METHOD 06/05/2025 10:29 PM EDT [facility] Hemoglobin Reduced, Mixed Venous, Whole Blood 8.7 % LAB HEMATOLOGY METHOD 06/05/2025 10:29 PM EDT [facility] Total Hemoglobin, Mixed Venous, Whole Blood 11.4 11.2 - 15.7 g/dL LAB HEMATOLOGY METHOD 06/05/2025 10:29 PM EDT [facility] Blood Mixed venous blood specimen / Unknown Venipuncture / Unknown 06/05/2025 10:05 PM EDT 06/05/2025 10:26 PM EDT us Georgie Green APRN LAB BLOOD ORDERABLES Final Res ult [facility] [address] [place] [address] * (ABNORMAL) Renal Function Panel, Plasma (06/05/2025 10:05 PM EDT) Glucose, Plasma 132(H) 74 - 99 mg/dL 06/05/2025 10:42 PM EDT [facility] BUN, Plasma 37(H) 8 - 23 mg/dL 06/05/2025 10:42 PM EDT [facility] Creatinine, Plasma 0.86 0.60 - 1.10 mg/dL 06/05/2025 10:42 PM EDT [facility] BUN/Creatinine Ratio 43 06/05/2025 10:42 PM EDT [facility] Sodium, Plasma 139 136 - 145 mmol/L 06/05/2025 10:42 PM EDT [facility] Potassium, Plasma 3.7 3.6 - 4.9 mmol/L 06/05/2025 10:42 PM EDT [facility] Chloride, Plasma 106 97 - 107 mmol/L 06/05/2025 10:42 PM EDT [facility] CO2, Plasma 18(L) 22 - 29 mmol/L 06/05/2025 10:42 PM EDT [facility] Anion Gap 15 6 - 16 mmol/L 06/05/2025 10:42 PM EDT [facility] Total Calcium, Plasma 8.8(L) 8.9 - 10.2 mg/dL 06/05/2025 10:42 PM EDT [facility] Phosphorus, Plasma 3.9 2.5 - 4.5 mg/dL 06/05/2025 10:42 PM EDT [facility] Albumin, Plasma 3.2(L) 3.5 - 5.2 g/dL 06/05/2025 10:42 PM EDT [facility] eGFRcr 72.3 mL/min/1.7 3m*2 06/05/2025 10:42 PM EDT [facility] Comment:Reported eGFRcr in m L/min/1.73m2 is based the CKD-EPI 2020 equation that does not use a race coefficient. Blood Venous blood specimen / Unknown Venipuncture / Unknown 06/05/2025 10:05 PM EDT 06/05/2025 10:11 PM EDT Doyle CASTELLANOS LAB BLOOD ORDERABLES Final Result Performing Organization Address [facility] Co de Phone Number [facility] [address] [place] [address] * Magnesium, Plasma (06/05/2025 10:05 PM EDT) Magnesium, Plasma 1.9 1.9 - 2.4 mg/dL 06/05/2025 10:42 PM EDT [facility] Blood Venous blood specimen / Unknown Venipuncture / Unknown 06/05/2025 10:05 PM EDT 06/05/2025 10:11 PM EDT Doyle CASTELLANOS LAB BLOOD ORDERABLES Final Result Performing Organization Address City/[facility]/ZIP Co de Phone Number [facility] [address] [place] [address] * (ABNORMAL) CBC W/O Differential (06/05/2025 10:05 PM EDT) WBC Count 22.84(H) 3.70 - 10.30 10*3/uL LAB HEMATOLOGY METHOD 06/05/2025 10:18 PM EDT [facility] RBC Count 4.00 3.90 - 5.20 10*6/uL LAB HEMATOLOGY METHOD 06/05/2025 10:18 PM EDT [facility] HGB 11.6 11.2 - 15.7 g/dL LAB HEMATOLOGY METHOD 06/05/2025 10:18 PM EDT [facility] HCT 35.6 34.0 - 45.0 % LAB HEMATOLOGY METHOD 06/05/2025 10:18 PM EDT [facility] Platelet Count 511(H) 155 - 369 10*3/uL LAB HEMATOLOGY METHOD 06/05/2025 10:18 PM EDT [facility] MCV 89 79 - 98 fL LAB HEMATOLOGY METHOD 06/05/2025 10:18 PM EDT [facility] MCH 29.0 26.0 - 32.0 pg LAB HEMATOLOGY METHOD 06/05/2025 10:18 PM EDT [facility] MCHC 32.6 30.7 - 35.5 g/dL LAB HEMATOLOGY METHOD 06/05/2025 10:18 PM EDT [facility] RDW 14.9(H) 11.5 - 14.5 % LAB HEMATOLOGY METHOD 06/05/2025 10:18 PM EDT [facility] MPV 10.4 8.8 - 12.5 fL LAB HEMATOLOGY METHOD 06/05/2025 10:18 PM EDT [facility] nRBC 0.0 <=0.0 per 100 WBCs LAB HEMATOLOGY METHOD 06/05/2025 10:18 PM EDT [facility] Blood Venous blood specimen / Unknown Venipuncture / Unknown 06/05/2025 10:05 PM EDT 06/05/2025 10:11 PM EDT Doyle CASTELLANOS LAB BLOOD ORDERABLES Final Result [facility] [address] [place] [address] * ECG Adult (06/05/2025 9:14 PM EDT) EKG DIAGNOSIS CLASS Borderline Abnormal MUSE ECG Ventricular Rate 107 BPM MUSE ECG Atrial Rate 107 BPM MUSE ECG IA Interval 142 ms MUSE ECG QRSD Interval 74 ms MUSE ECG QT Interval 352 ms MUSE ECG QTC Interval 469 ms MUSE ECG P Arrey 66 degrees MUSE ECG R Arrey 20 degrees MUSE ECG T Wave Arrey 50 degrees MUSE ECG Diagnosis Poor data quality, interpretation may be adversely affected MUSE ECG Diagnosis Sinus tachycardia with occasional premature ventricular complexes MUSE ECG Diagnosis Possible Left atrial enlargement MUSE ECG Diagnosis Borderline ECG MUSE ECG Diagnosis MUSE ECG Diagnosis Confirmed by Roberto Espinal ([id number]) on 06/06/2025 1:02:31 PM MUSE ECG 06/05/2025 9:14 PM EDT 06/06/2025 1:02 PM EDT Georgie Green APRN ECG ORDERABLES Final Result MUSE ECG * (ABNORMAL) Renal Function Panel, Plasma (06/05/2025 4:18 AM EDT) Glucose, Plasma 97 74 - 99 mg/dL 06/05/2025 4:54 AM EDT [facility] BUN, Plasma 32(H) 8 - 23 mg/dL 06/05/2025 4:54 AM EDT [facility] Creatinine, Plasma 0.61 0.60 - 1.10 mg/dL 06/05/2025 4:54 AM EDT [facility] BUN/Creatinine Ratio 52 06/05/2025 4:54 AM EDT [facility] Sodium, Plasma 139 136 - 145 mmol/L 06/05/2025 4:54 AM EDT [facility] Potassium, Plasma 4.2 3.6 - 4.9 mmol/L 06/05/2025 4:54 AM EDT [facility] Chloride, Plasma 105 97 - 107 mmol/L 06/05/2025 4:54 AM EDT [facility] CO2, Plasma 22 22 - 29 mmol/L 06/05/2025 4:54 AM EDT [facility] Anion Gap 12 6 - 16 mmol/L 06/05/2025 4:54 AM EDT [facility] Total Calcium, Plasma 9.7 8.9 - 10.2 mg/dL 06/05/2025 4:54 AM EDT [facility] Phosphorus, Plasma 3.3 2.5 - 4.5 mg/dL 06/05/2025 4:54 AM EDT [facility] Albumin, Plasma 3.5 3.5 - 5.2 g/dL 06/05/2025 4:54 AM EDT [facility] eGFRcr 95.7 mL/min/1.7 3m*2 06/05/2025 4:54 AM EDT [facility] Comment:Reported eGFRcr in m L/min/1.73m2 is based the CKD-EPI 2020 equation that does not use a race coefficient. Blood Venous blood specimen / Unknown Venipuncture / Unknown 06/05/2025 4:18 AM EDT 06/05/2025 4:25 AM EDT Doyle CASTELLANOS LAB BLOOD ORDERABLES Final Result Performing Organization Address City/[facility]/ZIP Co de Phone Number [facility] [address] [place] [address] * Magnesium, Plasma (06/05/2025 4:18 AM EDT) Pathologist [facility] Magnesium, Plasma 2.1 1.9 - 2.4 mg/dL 06/05/2025 4:54 AM EDT [facility] Blood Venous blood specimen / Unknown Venipuncture / Unknown 06/05/2025 4:18 AM EDT 06/05/2025 4:25 AM EDT Doyle CASTELLANOS LAB BLOOD ORDERABLES Final Result Performing Organization Address City/[facility]/ZIP Co de Phone Number [facility] [address] [place] [address] * (ABNORMAL) CBC W/O Differential (06/05/2025 4:18 AM EDT) WBC Count 13.37(H) 3.70 - 10.30 10*3/uL LAB HEMATOLOGY METHOD 06/05/2025 4:46 AM EDT [facility] RBC Count 3.98 3.90 - 5.20 10*6/uL LAB HEMATOLOGY METHOD 06/05/2025 4:46 AM EDT [facility] HGB 11.4 11.2 - 15.7 g/dL LAB HEMATOLOGY METHOD 06/05/2025 4:46 AM EDT [facility] HCT 35.6 34.0 - 45.0 % LAB HEMATOLOGY METHOD 06/05/2025 4:46 AM EDT [facility] Platelet Count 385(H) 155 - 369 10*3/uL LAB HEMATOLOGY METHOD 06/05/2025 4:46 AM EDT [facility] MCV 89 79 - 98 fL LAB HEMATOLOGY METHOD 06/05/2025 4:46 AM EDT [facility] MCH 28.6 26.0 - 32.0 pg LAB HEMATOLOGY METHOD 06/05/2025 4:46 AM EDT [facility] MCHC 32.0 30.7 - 35.5 g/dL LAB HEMATOLOGY METHOD 06/05/2025 4:46 AM EDT [facility] RDW 15.3(H) 11.5 - 14.5 % LAB HEMATOLOGY METHOD 06/05/2025 4:46 AM EDT [facility] MPV 10.3 8.8 - 12.5 fL LAB HEMATOLOGY METHOD 06/05/2025 4:46 AM EDT [facility] nRBC 0.0 <=0.0 per 100 WBCs LAB HEMATOLOGY METHOD 06/05/2025 4:46 AM EDT [facility] Blood Venous blood specimen / Unknown Venipuncture / Unknown 06/05/2025 4:18 AM EDT 06/05/2025 4:36 AM EDT Doyle CASTELLANOS LAB BLOOD ORDERABLES Final Result Performing Organization Address City/State/[facility] Co de Phone Number [facility] [address] [place] [address] * XR Chest 1 View (06/05/2025 2:47 AM EDT) Anatomical Region Laterality Modality Chest Digital Radiogra phy Impressions 06/05/2025 12:22 PM EDT Stable exam. CRITICAL RESULT: No. COMMUNICATION: Per this written report. By electronically signing this report, I, the attending physician, attest that I have personally reviewed the images/data for the above examination(s) and agree with the final edited report. Drafted by Silviano Hull MD on 06/05/2025 10:17 AM Final report signed by Rene Poole MD on 06/05/2025 12:22 PM Narrative 06/05/2025 12:22 PM EDT CLINICAL INDICATION: post op TECHNIQUE: XR CHEST 1 VIEW COMPARISON: Chest x-ray 06/04/2025, 06/03/2025 FINDINGS: Stable support hardware. Stable cardiomediastinal silhouette with intact sternotomy wires. Persistent trace right apical pneumothorax. Similar appearance of left perihilar and basilar opacities, likely representing atelectasis. No pleural effusion. No left-sided pneumothorax. Procedure Note Rene Poole MD - 06/05/2025 CLINICAL INDICATION: post op TECHNIQUE: XR CHEST 1 VIEW COMPARISON: Chest x-ray 06/04/2025, 06/03/2025 FINDINGS: Stable support hardware. Stable cardiomediastinal silhouette with intactsternotomy wires. Persistent trace right apical pneumothorax. Similarappearance of left perihilar and basilar opacities, likely representingatelectasis. No pleural effusion. No left-sided pneumothorax. IMPRESSION: Stable exam. CRITICAL RESULT: No. COMMUNICATION: Per this written report. By electronically signing this report, I, the attending physician, attestthat I have personally reviewed the images/data for the aboveexamination(s) and agree with the final edited report. Drafted by Silviano Hull MD on 06/05/2025 10:17 AM Final report signed by Rene Poole MD on 06/05/2025 12:22 PM us Doyle CASTELLANOS IMG XR PROCEDURES Final Res ult * (ABNORMAL) POCT glucose meter (06/04/2025 5:53 AM EDT) Pathologist [facility] POCT Glucose 108(H) 74 - 99 mg/dL 06/04/2025 5:55 AM EDT [facility] Comment:Accuracy of a glucos e result obtained from a capillary whole blood specimen relies upon adequate, non-compromised capillary blood flow. If the capillary glucose result is not consistent with the patient's clinical signs and symptoms, glucose testing should be repeated with either an arterial or venous sample on the glucometer or sent to the main labortory for testing. Comment 06/04/2025 5:55 AM EDT [facility] Review Specialist ID Hari Chapin 06/04/2025 5:55 AM EDT [facility] Device ID [id number] 06/04/2025 5:55 AM EDT [facility] Specimen Type POC Capillary 06/04/2025 5:55 AM EDT [facility] Blood Capillary blood specimen / Unknown 06/04/2025 5:53 AM EDT 06/04/2025 5:55 AM EDT us Jose C Nicholson MD LAB POINT OF CARE TE ST DOCKED DEVICE UNSOLICITED RESULTS Final Result [facility] [address] [place] [address] * XR Chest 1 View (06/04/2025 3:22 AM EDT) Anatomical Region Laterality Modality Chest Digital Radiogra phy Impressions 06/04/2025 5:42 AM EDT Trace right apical pneumothorax. Stable aeration of the left lung. CRITICAL RESULT: No. COMMUNICATION: Per this written report. Drafted by Les Steele MD on 06/04/2025 5:41 AM Final report signed by Les Steele MD on 06/04/2025 5:42 AM Narrative 06/04/2025 5:42 AM EDT CLINICAL INDICATION: post op TECHNIQUE: XR CHEST 1 VIEW COMPARISON: 06/03/2025. FINDINGS: Hardware stable. Mediastinal drains. Trace right apical pneumothorax. Stable aeration involving the left lung. Procedure Note Les Steele MD - 06/04/2025 CLINICAL INDICATION: post op TECHNIQUE: XR CHEST 1 VIEW COMPARISON: 06/03/2025. FINDINGS: Hardware stable. Mediastinal drains. Trace right apical pneumothorax.Stable aeration involving the left lung. IMPRESSION: Trace right apical pneumothorax. Stable aeration of the left lung. CRITICAL RESULT: No. COMMUNICATION: Per this written report. Drafted by Les Steele MD on 06/04/2025 5:41 AM Final report signed by Les Steele MD on 06/04/2025 5:42 AM us Doyle CASTELLANOS IMG XR PROCEDURES Final Res ult * (ABNORMAL) Lipid panel (06/04/2025 1:39 AM EDT) Cholesterol, Plasma 131 <200 mg/dL 06/04/2025 2:18 PM EDT [facility] Comment: Cholesterol Reference Range (age >17 years): Desirable <200 mg/dL Borderline 200 to 239 mg/dL Undesirable >239 mg/dL HDL 36(L) >=50 mg/dL 06/04/2025 2:18 PM EDT [facility] Comment: HDL Cholesterol Reference Ranges (age >17 years): Female, acceptable > or = 50 mg/dL Male, acceptable > or = 40 mg/dL Triglycerides, Plasma 126 <150 mg/dL 06/04/2025 2:18 PM EDT [facility] Comment: Triglyceride Reference Range (age >17 years): Desirable: <150 mg/dL Borderline high: 150 to 199 mg/dL High: 200 to 499 mg/dL Very high: >499 mg/dL Increased risk of pancreatitis: >1000 mg/dL Cholesterol/HDL Ratio 4 06/04/2025 2:18 PM EDT [facility] LDL, Calculated 72 <100 mg/dL 2:18 PM EDT [facility] Comment: LDL Cholesterol Reference Range (age >17 years): Optimal: <100 mg/dL Near or above optimal: 100 - 129 mg/dL Borderline high: 130 - 159 mg/dL High: 160 - 189 mg/dL Very high: >189 mg/dL LDL Cholesterol Reference Range (age <18 years): Desirable: <110 mg/dL Borderline: 110 - 129 mg/dL Undesirable: >130 mg/dL LDL Cholesterol is calculated using the Julian/NIH equation. Fasting greater than or equal to 12 hours? Unknown 06/04/2025 2:18 PM EDT [facility] Blood Venous blood specimen / Unknown Venipuncture / Unknown 06/04/2025 1:39 AM EDT 06/04/2025 1:52 AM EDT us Jenna Brown APRN LAB BLOOD ORDERABLES Final R esult [facility] [address] [place] [address] * (ABNORMAL) Renal Function Panel, Plasma (06/04/2025 1:39 AM EDT) Glucose, Plasma 113(H) 74 - 99 mg/dL 06/04/2025 2:23 AM EDT [facility] BUN, Plasma 33(H) 8 - 23 mg/dL 06/04/2025 2:23 AM EDT [facility] Creatinine, Plasma 0.59(L) 0.60 - 1.10 mg/dL 06/04/2025 2:23 AM EDT [facility] BUN/Creatinine Ratio 56 06/04/2025 2:23 AM EDT [facility] Sodium, Plasma 142 136 - 145 mmol/L 06/04/2025 2:23 AM EDT [facility] Potassium, Plasma 4.2 3.6 - 4.9 mmol/L 06/04/2025 2:23 AM EDT [facility] Chloride, Plasma 106 97 - 107 mmol/L 06/04/2025 2:23 AM EDT [facility] CO2, Plasma 26 22 - 29 mmol/L 06/04/2025 2:23 AM EDT [facility] Anion Gap 10 6 - 16 mmol/L 06/04/2025 2:23 AM EDT [facility] Total Calcium, Plasma 9.7 8.9 - 10.2 mg/dL 06/04/2025 2:23 AM EDT [facility] Phosphorus, Plasma 3.0 2.5 - 4.5 mg/dL 06/04/2025 2:23 AM EDT [facility] Albumin, Plasma 3.4(L) 3.5 - 5.2 g/dL 06/04/2025 2:23 AM EDT [facility] eGFRcr 96.5 mL/min/1.7 3m*2 06/04/2025 2:23 AM EDT [facility] Comment:Reported eGFRcr in m L/min/1.73m2 is based the CKD-EPI 2020 equation that does not use a race coefficient. Blood Venous blood specimen / Unknown Venipuncture / Unknown 06/04/2025 1:39 AM EDT 06/04/2025 1:52 AM EDT Doyle CASTELLANOS LAB BLOOD ORDERABLES Final Result Performing Organization Address City/[facility]/ZIP Co de Phone Number [facility] [address] [place] [address] * Magnesium, Plasma (06/04/2025 1:39 AM EDT) Magnesium, Plasma 2.2 1.9 - 2.4 mg/dL 06/04/2025 2:23 AM EDT [facility] Blood Venous blood specimen / Unknown Venipuncture / Unknown 06/04/2025 1:39 AM EDT 06/04/2025 1:52 AM EDT Doyle CASTELLANOS LAB BLOOD ORDERABLES Final Result Performing Organization Address [facility] Co de Phone Number [facility] [address] [place] [address] * (ABNORMAL) CBC W/O Differential (06/04/2025 1:39 AM EDT) WBC Count 13.42(H) 3.70 - 10.30 10*3/uL LAB HEMATOLOGY METHOD 06/04/2025 2:01 AM EDT [facility] RBC Count 3.78(L) 3.90 - 5.20 10*6/uL LAB HEMATOLOGY METHOD 06/04/2025 2:01 AM EDT [facility] HGB 10.6(L) 11.2 - 15.7 g/dL LAB HEMATOLOGY METHOD 06/04/2025 2:01 AM EDT [facility] HCT 33.2(L) 34.0 - 45.0 % LAB HEMATOLOGY METHOD 06/04/2025 2:01 AM EDT [facility] Platelet Count 353 155 - 369 10*3/uL LAB HEMATOLOGY METHOD 06/04/2025 2:01 AM EDT [facility] MCV 88 79 - 98 fL LAB HEMATOLOGY METHOD 06/04/2025 2:01 AM EDT [facility] MCH 28.0 26.0 - 32.0 pg LAB HEMATOLOGY METHOD 06/04/2025 2:01 AM EDT [facility] MCHC 31.9 30.7 - 35.5 g/dL LAB HEMATOLOGY METHOD 06/04/2025 2:01 AM EDT [facility] RDW 15.3(H) 11.5 - 14.5 % LAB HEMATOLOGY METHOD 06/04/2025 2:01 AM EDT [facility] MPV 10.4 8.8 - 12.5 fL LAB HEMATOLOGY METHOD 06/04/2025 2:01 AM EDT [facility] nRBC 0.0 <=0.0 per 100 WBCs LAB HEMATOLOGY METHOD 06/04/2025 2:01 AM EDT [facility] Blood Venous blood specimen / Unknown Venipuncture / Unknown 06/04/2025 1:39 AM EDT 06/04/2025 1:52 AM EDT us Doyle CASTELLANOS LAB BLOOD ORDERABLES Final Result [facility] [address] [place] [address] * (ABNORMAL) POCT glucose meter (06/04/2025 1:36 AM EDT) POCT Glucose 104(H) 74 - 99 mg/dL 06/04/2025 1:38 AM EDT [facility] Comment:Accuracy of a glucos e result obtained from a capillary whole blood specimen relies upon adequate, non-compromised capillary blood flow. If the capillary glucose result is not consistent with the patient's clinical signs and symptoms, glucose testing should be repeated with either an arterial or venous sample on the glucometer or sent to the main labortory for testing. Comment 06/04/2025 1:38 AM EDT [facility] Review Specialist ID Hari Chapin 06/04/2025 1:38 AM EDT [facility] Device ID [id number] 06/04/2025 1:38 AM EDT [facility] Specimen Type POC Capillary 06/04/2025 1:38 AM EDT [facility] Blood Capillary blood specimen / Unknown 06/04/2025 1:36 AM EDT 06/04/2025 1:38 AM EDT us Jose C Nicholson MD LAB POINT OF CARE TE ST DOCKED DEVICE UNSOLICITED RESULTS Final Result [facility] [address] [place] [address] * (ABNORMAL) Magnesium (06/03/2025 5:44 PM EDT) Magnesium, Plasma 2.5(H) 1.9 - 2.4 mg/dL 06/03/2025 6:44 PM EDT [facility] Blood Venous blood specimen / Unknown Venipuncture / Unknown 06/03/2025 5:44 PM EDT 06/03/2025 6:10 PM EDT us Jose C Nicholson MD LAB BLOOD ORDERABLES Final Resu lt [facility] [address] [place] [address] * (ABNORMAL) Basic metabolic panel (06/03/2025 5:44 PM EDT) Glucose, Plasma 119(H) 74 - 99 mg/dL 06/03/2025 6:44 PM EDT [facility] BUN, Plasma 33(H) 8 - 23 mg/dL 06/03/2025 6:44 PM EDT [facility] Creatinine, Plasma 0.60 0.60 - 1.10 mg/dL 06/03/2025 6:44 PM EDT [facility] BUN/Creatinine Ratio 55 06/03/2025 6:44 PM EDT [facility] Sodium, Plasma 143 136 - 145 mmol/L 06/03/2025 6:44 PM EDT [facility] Potassium, Plasma 4.0 3.6 - 4.9 mmol/L 06/03/2025 6:44 PM EDT [facility] Chloride, Plasma 106 97 - 107 mmol/L 06/03/2025 6:44 PM EDT [facility] CO2, Plasma 25 22 - 29 mmol/L 06/03/2025 6:44 PM EDT [facility] Anion Gap 12 6 - 16 mmol/L 06/03/2025 6:44 PM EDT [facility] Total Calcium, Plasma 9.4 8.9 - 10.2 mg/dL 06/03/2025 6:44 PM EDT [facility] eGFRcr 96.1 mL/min/1.7 3m*2 06/03/2025 6:44 PM EDT [facility] Comment:Reported eGFRcr in m L/min/1.73m2 is based the CKD-EPI 2020 equation that does not use a race coefficient. Blood Venous blood specimen / Unknown Venipuncture / Unknown 06/03/2025 5:44 PM EDT 06/03/2025 6:10 PM EDT us Jose C Nicholson MD LAB BLOOD ORDERABLES Final Resu lt Performing Organization Address [facility] Co de Phone Number [facility] [address] [place] [address] * (ABNORMAL) POCT glucose meter (06/03/2025 12:24 PM EDT) POCT Glucose 125(H) 74 - 99 mg/dL 06/03/2025 12:26 PM EDT [facility] Comment:Accuracy of a glucos e result obtained from a capillary whole blood specimen relies upon adequate, non-compromised capillary blood flow. If the capillary glucose result is not consistent with the patient's clinical signs and symptoms, glucose testing should be repeated with either an arterial or venous sample on the glucometer or sent to the main labortory for testing. Comment 06/03/2025 12:26 PM EDT [facility] Review Specialist ID Russ Hernandez 06/03/20 25 12:26 PM EDT [facility] Device ID [id number] 06/03/2025 12:26 PM EDT [facility] Specimen Type POC Capillary 06/03/2025 12:26 PM EDT [facility] Blood Capillary blood specimen / Unknown 06/03/2025 12:24 PM EDT 06/03/2025 12:26 PM EDT us Jose C Nicholson MD LAB POINT OF CARE TE ST DOCKED DEVICE UNSOLICITED RESULTS Final Result Performing Organization Address City/[facility] Co de Phone Number [facility] [address] [place] [id number] * [place] Modified Barium Swallow (06/03/2025 11:25 AM EDT) Anatomical Region Laterality Modality Esophagus, stomach and duodenum Digital Radiography Impressions 06/03/2025 4:31 PM EDT No aspiration of any tested consistency. Laryngeal penetration of thin barium consistency. Please see separate note by Speech therapy team for dietary recommendations. CRITICAL RESULT: No. COMMUNICATION: Per this written report. By electronically signing this report, I, the attending physician, attest that I have personally reviewed the images/data for the above examination(s) and agree with the final edited report. Drafted by ROSANNA Gonzalez RT (R) on 06/03/2025 2:05 PM Final report signed by Jerry Bearden MD on 06/03/2025 4:31 PM Narrative 06/03/2025 4:31 PM EDT CLINICAL INDICATION: Dysphagia TECHNIQUE: Modified barium swallow was performed utilizing video fluoroscopy in conjunction with the Speech Pathology team. The patient ingested barium media of varying consistencies. Fluoroscopy Time: 2.9 minutes. COMPARISON: None. FINDINGS: Swallowing: Thin consistency (IDDSI 0): There is no aspiration. There is high transient laryngeal penetration by the cup. There is laryngeal penetration by the straw. There is no laryngeal penetration by the teaspoon. Pudding consistency (IDDSI 4): There is no aspiration or laryngeal penetration. There is minimal vallecular residue. Regular cracker consistency (IDDSI 7): There is no aspiration or laryngeal penetration. There is significant vallecular residue. Other: Enteric tube is present. Anterior cervical osteophytes. Procedure Note Jerry Bearden MD - 06/03/2025 CLINICAL INDICATION: Dysphagia TECHNIQUE: Modified barium swallow was performed utilizing video fluoroscopy inconjunction with the Speech Pathology team. The patient ingested bariummedia of varying consistencies. Fluoroscopy Time: 2.9 minutes. COMPARISON: None. FINDINGS: Swallowing: Thin consistency (IDDSI 0): There is no aspiration. There is hightransient laryngeal penetration by the cup. There is laryngeal penetrationby the straw. There is no laryngeal penetration by the teaspoon. Pudding consistency (IDDSI 4): There is no aspiration or laryngealpenetration. There is minimal vallecular residue. Regular cracker consistency (IDDSI 7): There is no aspiration or laryngealpenetration. There is significant vallecular residue. Other: Enteric tube is present. Anterior cervical osteophytes. IMPRESSION: No aspiration of any tested consistency. Laryngeal penetration of thin barium consistency. Please see separate note by Speech therapy team for dietaryrecommendations. CRITICAL RESULT: No. COMMUNICATION: Per this written report. By electronically signing this report, I, the attending physician, bay I have personally reviewed the images/data for the aboveexamination(s) and agree with the final edited report. Drafted by ROSANNA Gonzalez RT (R) on 06/03/2025 2:05 PM Final report signed by Jerry Bearden MD on 06/03/2025 4:31 PM Yvrose Campbell APRN IMG FLUOROSCOPY PROCEDURES Final Result * (ABNORMAL) POCT glucose meter (06/03/2025 5:25 AM EDT) POCT Glucose 119(H) 74 - 99 mg/dL 06/03/2025 5:27 AM EDT [facility] Comment:Accuracy of a glucos e result obtained from a capillary whole blood specimen relies upon adequate, non-compromised capillary blood flow. If the capillary glucose result is not consistent with the patient's clinical signs and symptoms, glucose testing should be repeated with either an arterial or venous sample on the glucometer or sent to the main labortory for testing. Comment 06/03/2025 5:27 AM EDT [facility] Review Specialist ID Ansley Hernandez 025 5:27 AM EDT [facility] Device ID [id number] 06/03/2025 5:27 AM EDT [facility] Specimen Type POC Capillary 06/03/2025 5:27 AM EDT [facility] Blood Capillary blood specimen / Unknown 06/03/2025 5:25 AM EDT 06/03/2025 5:27 AM EDT us Jose C Nicholson MD LAB POINT OF CARE TE ST DOCKED DEVICE UNSOLICITED RESULTS Final Result [facility] [address] [place] [address] * XR Chest 1 View (06/03/2025 3:01 AM EDT) Anatomical Region Laterality Modality Chest Digital Radiogra phy Impressions 06/03/2025 9:58 AM EDT Stable exam. CRITICAL RESULT: No. COMMUNICATION: Per this written report. By electronically signing this report, I, the attending physician, attest that I have personally reviewed the images/data for the above examination(s) and agree with the final edited report. Drafted by Silviano Hull MD on 06/03/2025 8:42 AM Final report signed by Rene Poole MD on 06/03/2025 9:58 AM Narrative 06/03/2025 9:58 AM EDT CLINICAL INDICATION: post op TECHNIQUE: XR CHEST 1 VIEW COMPARISON: Chest x-ray 06/02/2025, 06/01/2025 FINDINGS: Stable support hardware. Stable cardiomediastinal silhouette with intact sternotomy wires. Grossly unchanged appearance of bilateral perihilar opacities. Persistent small bilateral pleural effusions. No new focal consolidation. No pneumothorax. Procedure Note Rene Poole MD - 06/03/2025 CLINICAL INDICATION: post op TECHNIQUE: XR CHEST 1 VIEW COMPARISON: Chest x-ray 06/02/2025, 06/01/2025 FINDINGS: Stable support hardware. Stable cardiomediastinal silhouette with intactsternotomy wires. Grossly unchanged appearance of bilateral perihilaropacities. Persistent small bilateral pleural effusions. No new focalconsolidation. No pneumothorax. IMPRESSION: Stable exam. CRITICAL RESULT: No. COMMUNICATION: Per this written report. By electronically signing this report, I, the attending physician, attestthat I have personally reviewed the images/data for the aboveexamination(s) and agree with the final edited report. Drafted by Silviano Hull MD on 06/03/2025 8:42 AM Final report signed by Rene Poole MD on 06/03/2025 9:58 AM us Doyle CASTELLANOS IMG XR PROCEDURES Final Res ult * (ABNORMAL) Renal Function Panel, Plasma (06/03/2025 12:13 AM EDT) Glucose, Plasma 106(H) 74 - 99 mg/dL 06/03/2025 1:04 AM EDT [facility] BUN, Plasma 31(H) 8 - 23 mg/dL 06/03/2025 1:04 AM EDT [facility] Creatinine, Plasma 0.57(L) 0.60 - 1.10 mg/dL 06/03/2025 1:04 AM EDT [facility] BUN/Creatinine Ratio 54 06/03/2025 1:04 AM EDT [facility] Sodium, Plasma 143 136 - 145 mmol/L 06/03/2025 1:04 AM EDT [facility] Potassium, Plasma 4.3 3.6 - 4.9 mmol/L 06/03/2025 1:04 AM EDT [facility] Chloride, Plasma 107 97 - 107 mmol/L 06/03/2025 1:04 AM EDT [facility] CO2, Plasma 26 22 - 29 mmol/L 06/03/2025 1:04 AM EDT [facility] Anion Gap 10 6 - 16 mmol/L 06/03/2025 1:04 AM EDT [facility] Total Calcium, Plasma 9.8 8.9 - 10.2 mg/dL 06/03/2025 1:04 AM EDT [facility] Phosphorus, Plasma 3.4 2.5 - 4.5 mg/dL 06/03/2025 1:04 AM EDT [facility] Albumin, Plasma 3.4(L) 3.5 - 5.2 g/dL 06/03/2025 1:04 AM EDT [facility] eGFRcr 97.3 mL/min/1.7 3m*2 06/03/2025 1:04 AM EDT [facility] Comment:Reported eGFRcr in m L/min/1.73m2 is based the CKD-EPI 2020 equation that does not use a race coefficient. Blood Venous blood specimen / Unknown Venipuncture / Unknown 06/03/2025 12:13 AM EDT 06/03/2025 12:30 AM EDT Doyle CASTELLANOS LAB BLOOD ORDERABLES Final Result [facility] [address] [place] [address] * Magnesium, Plasma (06/03/2025 12:13 AM EDT) Magnesium, Plasma 2.2 1.9 - 2.4 mg/dL 06/03/2025 1:04 AM EDT [facility] Blood Venous blood specimen / Unknown Venipuncture / Unknown 06/03/2025 12:13 AM EDT 06/03/2025 12:30 AM EDT Doyle CASTELLANOS LAB BLOOD ORDERABLES Final Result Performing Organization Address [facility] Co de Phone Number [facility] [address] [place] [address] * (ABNORMAL) CBC W/O Differential (06/03/2025 12:13 AM EDT) WBC Count 10.86(H) 3.70 - 10.30 10*3/uL LAB HEMATOLOGY METHOD 06/03/2025 12:44 AM EDT [facility] RBC Count 3.87(L) 3.90 - 5.20 10*6/uL LAB HEMATOLOGY METHOD 06/03/2025 12:44 AM EDT [facility] HGB 11.0(L) 11.2 - 15.7 g/dL LAB HEMATOLOGY METHOD 06/03/2025 12:44 AM EDT [facility] HCT 34.5 34.0 - 45.0 % LAB HEMATOLOGY METHOD 06/03/2025 12:44 AM EDT [facility] Platelet Count 260 155 - 369 10*3/uL LAB HEMATOLOGY METHOD 06/03/2025 12:44 AM EDT [facility] MCV 89 79 - 98 fL LAB HEMATOLOGY METHOD 06/03/2025 12:44 AM EDT [facility] MCH 28.4 26.0 - 32.0 pg LAB HEMATOLOGY METHOD 06/03/2025 12:44 AM EDT [facility] MCHC 31.9 30.7 - 35.5 g/dL LAB HEMATOLOGY METHOD 06/03/2025 12:44 AM EDT [facility] RDW 15.5(H) 11.5 - 14.5 % LAB HEMATOLOGY METHOD 06/03/2025 12:44 AM EDT [facility] MPV 10.9 8.8 - 12.5 fL LAB HEMATOLOGY METHOD 06/03/2025 12:44 AM EDT [facility] nRBC 0.0 <=0.0 per 100 WBCs LAB HEMATOLOGY METHOD 06/03/2025 12:44 AM EDT [facility] Blood Venous blood specimen / Unknown Venipuncture / Unknown 06/03/2025 12:13 AM EDT 06/03/2025 12:34 AM EDT Doyle CASTELLANOS LAB BLOOD ORDERABLES Final Result [facility] [address] [place] [address] * (ABNORMAL) CBC W/O Differential (06/02/2025 2:57 AM EDT) WBC Count 8.82 3.70 - 10.30 10*3/uL LAB HEMATOLOGY METHOD 06/02/2025 3:29 AM EDT [facility] RBC Count 3.68(L) 3.90 - 5.20 10*6/uL LAB HEMATOLOGY METHOD 06/02/2025 3:29 AM EDT [facility] HGB 10.7(L) 11.2 - 15.7 g/dL LAB HEMATOLOGY METHOD 06/02/2025 3:29 AM EDT [facility] HCT 33.0(L) 34.0 - 45.0 % LAB HEMATOLOGY METHOD 06/02/2025 3:29 AM EDT [facility] Platelet Count 183 155 - 369 10*3/uL LAB HEMATOLOGY METHOD 06/02/2025 3:29 AM EDT [facility] MCV 90 79 - 98 fL LAB HEMATOLOGY METHOD 06/02/2025 3:29 AM EDT [facility] MCH 29.1 26.0 - 32.0 pg LAB HEMATOLOGY METHOD 06/02/2025 3:29 AM EDT [facility] MCHC 32.4 30.7 - 35.5 g/dL LAB HEMATOLOGY METHOD 06/02/2025 3:29 AM EDT [facility] RDW 15.6(H) 11.5 - 14.5 % LAB HEMATOLOGY METHOD 06/02/2025 3:29 AM EDT [facility] MPV 11.1 8.8 - 12.5 fL LAB HEMATOLOGY METHOD 06/02/2025 3:29 AM EDT [facility] nRBC 0.0 <=0.0 per 100 WBCs LAB HEMATOLOGY METHOD 06/02/2025 3:29 AM EDT [facility] Blood Venous blood specimen / Unknown Venipuncture / Unknown 06/02/2025 2:57 AM EDT 06/02/2025 3:18 AM EDT us Nidia Vance APRN LAB BLOOD ORDERABLES Final Result Performing Organization Address [facility] Co de Phone Number [facility] [address] [place] [address] * Magnesium, Plasma (06/02/2025 2:57 AM EDT) Magnesium, Plasma 2.4 1.9 - 2.4 mg/dL 06/02/2025 3:56 AM EDT [facility] Blood Venous blood specimen / Unknown Venipuncture / Unknown 06/02/2025 2:57 AM EDT 06/02/2025 3:17 AM EDT us Nidia Vance APRN LAB BLOOD ORDERABLES Final Result [facility] [address] [place] [address] * (ABNORMAL) Renal Function Panel, Plasma (06/02/2025 2:57 AM EDT) Glucose, Plasma 116(H) 74 - 99 mg/dL 06/02/2025 3:56 AM EDT [facility] BUN, Plasma 25(H) 8 - 23 mg/dL 06/02/2025 3:56 AM EDT [facility] Creatinine, Plasma 0.57(L) 0.60 - 1.10 mg/dL 06/02/2025 3:56 AM EDT [facility] BUN/Creatinine Ratio 44 06/02/2025 3:56 AM EDT [facility] Sodium, Plasma 144 136 - 145 mmol/L 06/02/2025 3:56 AM EDT [facility] Potassium, Plasma 4.8 3.6 - 4.9 mmol/L 06/02/2025 3:56 AM EDT [facility] Chloride, Plasma 110(H) 97 - 107 mmol/L 06/02/2025 3:56 AM EDT [facility] CO2, Plasma 25 22 - 29 mmol/L 06/02/2025 3:56 AM EDT [facility] Anion Gap 9 6 - 16 mmol/L 06/02/2025 3:56 AM EDT [facility] Total Calcium, Plasma 9.1 8.9 - 10.2 mg/dL 06/02/2025 3:56 AM EDT [facility] Phosphorus, Plasma 2.2(L) 2.5 - 4.5 mg/dL 06/02/2025 3:56 AM EDT [facility] Albumin, Plasma 3.2(L) 3.5 - 5.2 g/dL 06/02/2025 3:56 AM EDT [facility] eGFRcr 97.3 mL/min/1.7 3m*2 06/02/2025 3:56 AM EDT [facility] Comment:Reported eGFRcr in m L/min/1.73m2 is based the CKD-EPI 2020 equation that does not use a race coefficient. Blood Venous blood specimen / Unknown Venipuncture / Unknown 06/02/2025 2:57 AM EDT 06/02/2025 3:17 AM EDT us Nidia Vance APRN LAB BLOOD ORDERABLES Final Result [facility] [address] [place] [address] * XR Chest 1 View (06/02/2025 2:57 AM EDT) Anatomical Region Laterality Modality Chest Digital Radiogra phy Impressions 06/02/2025 4:40 AM EDT Stable mediastinal silhouette with improved aeration within the lung bases bilaterally. No pneumothorax CRITICAL RESULT: No. COMMUNICATION: Per this written report. Drafted by Les Steele MD on 06/02/2025 4:40 AM Final report signed by Les Steele MD on 06/02/2025 4:40 AM Narrative 06/02/2025 4:40 AM EDT CLINICAL INDICATION: post op TECHNIQUE: XR CHEST 1 VIEW COMPARISON: 06/01/2025. FINDINGS: Hardware stable. Improved vascular congestion and perihilar opacities. Improved pleural effusions. No pneumothorax Procedure Note Les Steele MD - 06/02/2025 CLINICAL INDICATION: post op TECHNIQUE: XR CHEST 1 VIEW COMPARISON: 06/01/2025. FINDINGS: Hardware stable. Improved vascular congestion and perihilar opacities.Improved pleural effusions. No pneumothorax IMPRESSION: Stable mediastinal silhouette with improved aeration within the lung basesbilaterally. No pneumothorax CRITICAL RESULT: No. COMMUNICATION: Per this written report. Drafted by Les Steele MD on 06/02/2025 4:40 AM Final report signed by Les Steele MD on 06/02/2025 4:40 AM Yvrose Campbell APRN IMG XR PROCEDURES Final Re sult * Lavender Top (06/01/2025 5:22 PM EDT) Pathologist [facility] Extra Hold for add-ons 06/01/2025 8:01 PM EDT [facility] Comment:Auto resulted. Blood Venous blood specimen / Unknown 06/01/2025 5:22 PM EDT 06/01/2025 5:22 PM EDT Jose C Nicholson MD LAB BLOOD ORDERABLES Final Resu lt [facility] [address] [place] [address] * Magnesium (06/01/2025 5:18 PM EDT) Magnesium, Plasma 2.1 1.9 - 2.4 mg/dL 06/01/2025 6:50 PM EDT [facility] Blood Venous blood specimen / Unknown Venipuncture / Unknown 06/01/2025 5:18 PM EDT 06/01/2025 5:21 PM EDT us Jose C Nicholson MD LAB BLOOD ORDERABLES Final Resu lt [facility] [address] [place] [address] * (ABNORMAL) Renal Function Panel, Plasma (06/01/2025 5:18 PM EDT) Pathologist [facility] Glucose, Plasma 110(H) 74 - 99 mg/dL 06/01/2025 5:50 PM EDT [facility] BUN, Plasma 23 8 - 23 mg/dL 06/01/2025 5:50 PM EDT [facility] Creatinine, Plasma 0.44(L) 0.60 - 1.10 mg/dL 06/01/2025 5:50 PM EDT [facility] BUN/Creatinine Ratio 52 06/01/2025 5:50 PM EDT [facility] Sodium, Plasma 147(H) 136 - 145 mmol/L 06/01/2025 5:50 PM EDT [facility] Potassium, Plasma 3.5(L) 3.6 - 4.9 mmol/L 06/01/2025 5:50 PM EDT [facility] Chloride, Plasma 115(H) 97 - 107 mmol/L 06/01/2025 5:50 PM EDT [facility] CO2, Plasma 22 22 - 29 mmol/L 06/01/2025 5:50 PM EDT [facility] Anion Gap 10 6 - 16 mmol/L 06/01/2025 5:50 PM EDT [facility] Total Calcium, Plasma 7.3(L) 8.9 - 10.2 mg/dL 06/01/2025 5:50 PM EDT [facility] Phosphorus, Plasma 1.9(L) 2.5 - 4.5 mg/dL 06/01/2025 5:50 PM EDT [facility] Albumin, Plasma 2.7(L) 3.5 - 5.2 g/dL 06/01/2025 5:50 PM EDT [facility] eGFRcr 103.6 mL/min/1.7 3m*2 06/01/2025 5:50 PM EDT [facility] Comment:Reported eGFRcr in m L/min/1.73m2 is based the CKD-EPI 2020 equation that does not use a race coefficient. Blood Venous blood specimen / Unknown Venipuncture / Unknown 06/01/2025 5:18 PM EDT 06/01/2025 5:21 PM EDT us Yvrose Campbell APRN LAB BLOOD ORDERABLES Final Result [facility] [address] [place] [address] * (ABNORMAL) POCT glucose meter (06/01/2025 5:13 PM EDT) POCT Glucose 111(H) 74 - 99 mg/dL 06/01/2025 5:51 PM EDT [facility] Comment:Accuracy of a glucos e result obtained from a capillary whole blood specimen relies upon adequate, non-compromised capillary blood flow. If the capillary glucose result is not consistent with the patient's clinical signs and symptoms, glucose testing should be repeated with either an arterial or venous sample on the glucometer or sent to the main labortory for testing. Comment 06/01/2025 5:51 PM EDT [facility] Review Specialist ID Loly Barnes 06/01/2025 5:51 PM EDT [facility] Device ID [id number] 06/01/2025 5:51 PM EDT [facility] Specimen Type POC Capillary 06/01/2025 5:51 PM EDT [facility] Blood Capillary blood specimen / Unknown 06/01/2025 5:13 PM EDT 06/01/2025 5:51 PM EDT us Jose C Nicholson MD LAB POINT OF CARE TE ST DOCKED DEVICE UNSOLICITED RESULTS Final Result [facility] [address] [place] [id number] * [place] CRITICAL CARE, E/M 30-74 MINUTES (06/01/2025 4:35 PM EDT) Narrative Yvrose Campbell APRN - 06/01/2025 4:35 PM EDT Yvrose Campbell APRN 06/01/2025 4:44 PM Critical Care Performed by: Yvrose Campbell APRN Authorized by: Yvrose Campbell APRN Critical care provider statement: Critical care time (minutes): 40 Critical care was time spent personally by me on the following activities: Ordering and review of radiographic studies, ordering and review of laboratory studies, examination of patient, evaluation of patient's response to treatment and discussions with primary provider Comments: The patient is critically ill with: pt is s/p ascending and arch replacement , feeding difficulty , constipation requiring close monitoring and evaluation of overall volume status . They require complex decision making. The patient was seen on rounds with critical care physician, Dr. Roberts and they are in agreement with the plan of care. Pharmacy, respiratory and nursing services were present on rounds. us Yvrose Campbell APRN IN CLINIC/BEDSIDE ORDERABL ES Final Result * VAS US Venous Duplex Upper Extremity Unilateral Left (06/01/2025 4:11 PM EDT) Anatomical Region Laterality Modality Upper Extremities, Vascular Left Ultr asound Impressions 06/02/2025 5:48 PM EDT Left: Normal study; no evidence of acute DVT is identified. COMMUNICATION: Per this written report. Preliminary report signed by Sapphire Sahni on 06/01/2025 4:29 PM By electronically signing this report, I, the attending physician, attest that I have personally reviewed the images/data for the above examination(s) and I agree with the final edited report. Drafted by Sapphire Sahni on 06/01/2025 4:21 PM Final report signed by Renzo Smith MD, FACS, FSVS, RPVI on 06/02/2025 5:48 PM Narrative 06/02/2025 5:48 PM EDT CLINICAL INDICATION: acute limb swelling TECHNIQUE: Non-invasive, real time duplex exam of the upper extremity venous circulation with Doppler ultrasonic waveform and spectral analysis was performed. COMPARISON: None. FINDINGS: Right: Venous duplex demonstrates compressible and augmentable subclavian vein; imaged for comparison purposes. Left: Venous duplex demonstrates compressible IJV, subclavian, axillary, brachial, basilic and cephalic veins. The venous spectral analysis demonstrates a spontaneous, phasic and augmentable flow signal. Procedure Note Renzo Smith MD - 06/02/2025 CLINICAL INDICATION: acute limb swelling TECHNIQUE: Non-invasive, real time duplex exam of the upper extremity venouscirculation with Doppler ultrasonic waveform and spectral analysis wasperformed. COMPARISON: None. FINDINGS: Right: Venous duplex demonstrates compressible and augmentable subclavianvein; imaged for comparison purposes. Left: Venous duplex demonstrates compressible IJV, subclavian, axillary,brachial, basilic and cephalic veins. The venous spectral analysisdemonstrates a spontaneous, phasic and augmentable flow signal. IMPRESSION: Left: Normal study; no evidence of acute DVT is identified. COMMUNICATION: Per this written report. Preliminary report signed by Sapphire Sahni on 06/01/2025 4:29 PM By electronically signing this report, I, the attending physician, attestthat I have personally reviewed the images/data for the aboveexamination(s) and I agree with the final edited report. Drafted by Sapphire Sahni on 06/01/2025 4:21 PM Final report signed by Renzo Smith MD, FACS, FSVS, RPVI on06/02/2025 5:48 PM Nidia Vance SAP PP CONSULTANT CV VASCULAR PROCEDURES Barbara wynn Result * (ABNORMAL) POCT glucose meter (06/01/2025 11:47 AM EDT) POCT Glucose 106(H) 74 - 99 mg/dL 06/01/2025 12:44 PM EDT [facility] Comment:Accuracy of a glucos e result obtained from a capillary whole blood specimen relies upon adequate, non-compromised capillary blood flow. If the capillary glucose result is not consistent with the patient's clinical signs and symptoms, glucose testing should be repeated with either an arterial or venous sample on the glucometer or sent to the main labortory for testing. Comment 06/01/2025 12:44 PM EDT [facility] Review Specialist ID Loly Barnes 06/01/2025 12:44 PM EDT [facility] Device ID [id number] 06/01/2025 12:44 PM EDT [facility] Specimen Type POC Capillary 06/01/2025 12:44 PM EDT [facility] Blood Capillary blood specimen / Unknown 06/01/2025 11:47 AM EDT 06/01/2025 12:44 PM EDT us Jose C Nicholson MD LAB POINT OF CARE TE ST DOCKED DEVICE UNSOLICITED RESULTS Final Result Performing Organization Address City/State/[facility] Co de Phone Number [facility] [address] [phone] * XR Abdomen 1 View (06/01/2025 8:45 AM EDT) Anatomical Region Laterality Modality Body Digital Radiogra phy Impressions 06/01/2025 8:59 AM EDT Nonobstructive bowel gas pattern. No pneumoperitoneum. CRITICAL RESULT: No. COMMUNICATION: Per this written report. Drafted by Maryann Reyez MD on 06/01/2025 8:58 AM Final report signed by Maryann Reyez MD on 06/01/2025 8:59 AM Narrative 06/01/2025 8:59 AM EDT CLINICAL INDICATION: constipation TECHNIQUE: Supine radiograph of the abdomen. COMPARISON: 05/29/2025 FINDINGS: Stable postsurgical changes in support hardware. The tip of the feeding tube projects over the descending duodenum. Moderate colonic stool burden. Nonobstructive bowel gas pattern. No pneumoperitoneum. Procedure Note Marynan Reyez MD - 06/01/2025 CLINICAL INDICATION: constipation TECHNIQUE: Supine radiograph of the abdomen. COMPARISON: 05/29/2025 FINDINGS: Stable postsurgical changes in support hardware. The tip of the feedingtube projects over the descending duodenum. Moderate colonic stool burden.Nonobstructive bowel gas pattern. No pneumoperitoneum. IMPRESSION: Nonobstructive bowel gas pattern. No pneumoperitoneum. CRITICAL RESULT: No. COMMUNICATION: Per this written report. Drafted by Maryann Reyez MD on 06/01/2025 8:58 AM Final report signed by Maryann Reyez MD on 06/01/2025 8:59 AM Yvrose Jason Campbell APRN IMG XR PROCEDURES Final Re sult * POCT glucose meter (06/01/2025 6:26 AM EDT) POCT Glucose 92 74 - 99 mg/dL 06/01/2025 8:12 AM EDT [facility] Comment:Accuracy of a glucos e result obtained from a capillary whole blood specimen relies upon adequate, non-compromised capillary blood flow. If the capillary glucose result is not consistent with the patient's clinical signs and symptoms, glucose testing should be repeated with either an arterial or venous sample on the glucometer or sent to the main labortory for testing. Comment 06/01/2025 8:12 AM EDT [facility] Review Specialist ID Birgit Patrick 06/01/2025 8:12 AM EDT [facility] Device ID [id number] 06/01/2025 8:12 AM EDT [facility] Specimen Type POC Capillary 06/01/2025 8:12 AM EDT [facility] Blood Capillary blood specimen / Unknown 06/01/2025 6:26 AM EDT 06/01/2025 8:12 AM EDT us Jose C Nicholson MD LAB POINT OF CARE TE ST DOCKED DEVICE UNSOLICITED RESULTS Final Result [facility] [address] [place] [address] * XR Chest 1 View (06/01/2025 6:01 AM EDT) Anatomical Region Laterality Modality Chest Digital Radiogra phy Impressions 06/01/2025 10:24 AM EDT No significant interval change. CRITICAL RESULT: No. COMMUNICATION: Per this written report. Drafted by Merle Hall MD on 06/01/2025 10:23 AM Final report signed by Merle Hall MD on 06/01/2025 10:24 AM Narrative 06/01/2025 10:24 AM EDT CLINICAL INDICATION: respiratory failure TECHNIQUE: Single AP view of chest. COMPARISON: One day prior FINDINGS: Interval removal of the right central venous catheters. Stable position of the mediastinal drains and feeding tube. The cardiomediastinal contours unchanged. No pneumothorax. Small bilateral pleural effusions similar to prior. Similar bilateral perihilar and bibasal lung opacities. Procedure Note Merle Hall MD - 06/01/2025 CLINICAL INDICATION: respiratory failure TECHNIQUE: Single AP view of chest. COMPARISON: One day prior FINDINGS: Interval removal of the right central venous catheters. Stable position ofthe mediastinal drains and feeding tube. The cardiomediastinal contoursunchanged. No pneumothorax. Small bilateral pleural effusions similar toprior. Similar bilateral perihilar and bibasal lung opacities. IMPRESSION: No significant interval change. CRITICAL RESULT: No. COMMUNICATION: Per this written report. Drafted by Merle Hall MD on 06/01/2025 10:23 AM Final report signed by Merle Hall MD on 06/01/2025 10:24 AM Nidia Vance SAP PP CONSULTANT IMG XR PROCEDURES Final Res ult * (ABNORMAL) CBC W/O Differential (06/01/2025 12:25 AM EDT) WBC Count 9.07 3.70 - 10.30 10*3/uL LAB HEMATOLOGY METHOD 06/01/2025 12:45 AM EDT [facility] RBC Count 3.34(L) 3.90 - 5.20 10*6/uL LAB HEMATOLOGY METHOD 06/01/2025 12:45 AM EDT [facility] HGB 9.7(L) 11.2 - 15.7 g/dL LAB HEMATOLOGY METHOD 06/01/2025 12:45 AM EDT [facility] HCT 29.6(L) 34.0 - 45.0 % LAB HEMATOLOGY METHOD 06/01/2025 12:45 AM EDT [facility] Platelet Count 122(L) 155 - 369 10*3/uL LAB HEMATOLOGY METHOD 06/01/2025 12:45 AM EDT [facility] MCV 89 79 - 98 fL LAB HEMATOLOGY METHOD 06/01/2025 12:45 AM EDT [facility] MCH 29.0 26.0 - 32.0 pg LAB HEMATOLOGY METHOD 06/01/2025 12:45 AM EDT [facility] MCHC 32.8 30.7 - 35.5 g/dL LAB HEMATOLOGY METHOD 06/01/2025 12:45 AM EDT [facility] RDW 15.8(H) 11.5 - 14.5 % LAB HEMATOLOGY METHOD 06/01/2025 12:45 AM EDT [facility] MPV 11.5 8.8 - 12.5 fL LAB HEMATOLOGY METHOD 06/01/2025 12:45 AM EDT [facility] nRBC 0.0 <=0.0 per 100 WBCs LAB HEMATOLOGY METHOD 06/01/2025 12:45 AM EDT [facility] Blood Blood sample taken from central line / Unknown Venipuncture / Unknown 06/01/2025 12:25 AM EDT 06/01/2025 12:32 AM EDT us Nidia Vance APRN LAB BLOOD ORDERABLES Final Result [facility] [address] [place] [address] * (ABNORMAL) Magnesium, Plasma (06/01/2025 12:25 AM EDT) Magnesium, Plasma 3.9(H) 1.9 - 2.4 mg/dL 06/01/2025 1:00 AM EDT [facility] Blood Blood sample taken from central line / Unknown Venipuncture / Unknown 06/01/2025 12:25 AM EDT 06/01/2025 12:33 AM EDT us Nidia Vance APRN LAB BLOOD ORDERABLES Final Result [facility] [address] [place] [address] * (ABNORMAL) Renal Function Panel, Plasma (06/01/2025 12:25 AM EDT) Glucose, Plasma 122(H) 74 - 99 mg/dL 06/01/2025 1:00 AM EDT [facility] BUN, Plasma 23 8 - 23 mg/dL 06/01/2025 1:00 AM EDT [facility] Creatinine, Plasma 0.53(L) 0.60 - 1.10 mg/dL 06/01/2025 1:00 AM EDT [facility] BUN/Creatinine Ratio 43 06/01/2025 1:00 AM EDT [facility] Sodium, Plasma 145 136 - 145 mmol/L 06/01/2025 1:00 AM EDT [facility] Potassium, Plasma 3.7 3.6 - 4.9 mmol/L 06/01/2025 1:00 AM EDT [facility] Chloride, Plasma 110(H) 97 - 107 mmol/L 06/01/2025 1:00 AM EDT [facility] CO2, Plasma 25 22 - 29 mmol/L 06/01/2025 1:00 AM EDT [facility] Anion Gap 10 6 - 16 mmol/L 06/01/2025 1:00 AM EDT [facility] Total Calcium, Plasma 8.5(L) 8.9 - 10.2 mg/dL 06/01/2025 1:00 AM EDT [facility] Phosphorus, Plasma 2.1(L) 2.5 - 4.5 mg/dL 06/01/2025 1:00 AM EDT [facility] Albumin, Plasma 2.9(L) 3.5 - 5.2 g/dL 06/01/2025 1:00 AM EDT [facility] eGFRcr 99.0 mL/min/1.7 3m*2 06/01/2025 1:00 AM EDT [facility] Comment:Reported eGFRcr in m L/min/1.73m2 is based the CKD-EPI 2020 equation that does not use a race coefficient. Blood Blood sample taken from central line / Unknown Venipuncture / Unknown 06/01/2025 12:25 AM EDT 06/01/2025 12:33 AM EDT Nidia Vance APRN LAB BLOOD ORDERABLES Final Result [facility] [address] [place] [address] * [place] CRITICAL CARE, E/M 30-74 MINUTES (05/31/2025 4:29 PM EDT) Narrative Yvrose Campbell APRN - 05/31/2025 4:29 PM EDT Yvrose Campbell APRN 05/31/2025 4:35 PM Critical Care Performed by: Yvrose Campbell APRN Authorized by: Yvrose Campbell APRN Critical care provider statement: Critical care time (minutes): 45 Critical care was time spent personally by me on the following activities: Ordering and review of laboratory studies, ordering and review of radiographic studies, ordering and performing treatments and interventions, examination of patient and evaluation of patient's response to treatment Comments: The patient is critically ill with: s/p ascending aorta/arch replacement, issues with tachycardia/afib and need for evaluation, close observation of volume status, feeding difficulties. They require complex decision making. The patient was seen on rounds with critical care physician, Dr. Roberts and they are in agreement with the plan of care. Pharmacy, respiratory and nursing services were present on rounds. Yvrose Campbell APRN IN CLINIC/BEDSIDE ORDERABL ES Final Result * (ABNORMAL) POCT glucose meter (05/31/2025 12:03 PM EDT) POCT Glucose 149(H) 74 - 99 mg/dL 05/31/2025 12:05 PM EDT [facility] Comment:Accuracy of a glucos e result obtained from a capillary whole blood specimen relies upon adequate, non-compromised capillary blood flow. If the capillary glucose result is not consistent with the patient's clinical signs and symptoms, glucose testing should be repeated with either an arterial or venous sample on the glucometer or sent to the main labortory for testing. Comment 05/31/2025 12:05 PM EDT [facility] Review Specialist ID Pauline Cm [id number] 12:05 PM EDT [facility] Device ID [id number] 05/31/2025 12:05 PM EDT [facility] Specimen Type POC Capillary 05/31/2025 12:05 PM EDT [facility] Blood Capillary blood specimen / Unknown 05/31/2025 12:03 PM EDT 05/31/2025 12:05 PM EDT Jose C Nicholson MD LAB POINT OF CARE TE ST DOCKED DEVICE UNSOLICITED RESULTS Final Result [facility] [address] [place] [address] * (ABNORMAL) POCT glucose meter (05/31/2025 6:07 AM EDT) [facility] POCT Glucose 119(H) 74 - 99 mg/dL 05/31/2025 6:08 AM EDT [facility] Comment:Accuracy of a glucos e result obtained from a capillary whole blood specimen relies upon adequate, non-compromised capillary blood flow. If the capillary glucose result is not consistent with the patient's clinical signs and symptoms, glucose testing should be repeated with either an arterial or venous sample on the glucometer or sent to the main labortory for testing. Comment 05/31/2025 6:08 AM EDT [facility] Review Specialist ID Hari Chapin 05/31/2025 6:08 AM EDT [facility] Device ID [id number] 05/31/2025 6:08 AM EDT [facility] Specimen Type POC Venous 05/31/2025 6:08 AM EDT [facility] Blood Venous blood specimen / Unknown 05/31/2025 6:07 AM EDT 05/31/2025 6:08 AM EDT Jose C Nicholson MD LAB POINT OF CARE TE ST DOCKED DEVICE UNSOLICITED RESULTS Final Result [facility] [address] [place] [address] * XR Chest 1 View (05/31/2025 2:35 AM EDT) Anatomical Region Laterality Modality Chest Digital Radiogra phy Impressions 05/31/2025 10:48 AM EDT No significant interval change. CRITICAL RESULT: No. COMMUNICATION: Per this written report. Drafted by Merle Hall MD on 05/31/2025 10:47 AM Final report signed by Merle Hall MD on 05/31/2025 10:48 AM Narrative 05/31/2025 10:48 AM EDT CLINICAL INDICATION: respiratory failure TECHNIQUE: Single AP view of chest. COMPARISON: One day prior FINDINGS: Interval removal of the [place] catheter. The rest of the support hardware are unchanged in position. The cardiomediastinal contours unchanged. No pneumothorax. Small bilateral pleural effusions similar to prior. Similar bilateral perihilar and bibasal lung opacities. Procedure Note Merle Hall MD - 05/31/2025 CLINICAL INDICATION: respiratory failure TECHNIQUE: Single AP view of chest. COMPARISON: One day prior FINDINGS: Interval removal of the [place] catheter. The rest of the supporthardware are unchanged in position. The cardiomediastinal contoursunchanged. No pneumothorax. Small bilateral pleural effusions similar toprior. Similar bilateral perihilar and bibasal lung opacities. IMPRESSION: No significant interval change. CRITICAL RESULT: No. COMMUNICATION: Per this written report. Drafted by Merle Hall MD on 05/31/2025 10:47 AM Final report signed by Merle Hall MD on 05/31/2025 10:48 AM Nidia Vance SAP PP CONSULTANT IMG XR PROCEDURES Final Res ult * (ABNORMAL) CBC W/O Differential (05/31/2025 12:14 AM EDT) WBC Count 9.01 3.70 - 10.30 10*3/uL LAB HEMATOLOGY METHOD 05/31/2025 12:35 AM EDT [facility] RBC Count 3.06(L) 3.90 - 5.20 10*6/uL LAB HEMATOLOGY METHOD 05/31/2025 12:35 AM EDT [facility] HGB 8.9(L) 11.2 - 15.7 g/dL LAB HEMATOLOGY METHOD 05/31/2025 12:35 AM EDT [facility] HCT 27.1(L) 34.0 - 45.0 % LAB HEMATOLOGY METHOD 05/31/2025 12:35 AM EDT [facility] Platelet Count 76(L) 155 - 369 10*3/uL LAB HEMATOLOGY METHOD 05/31/2025 12:35 AM EDT [facility] MCV 89 79 - 98 fL LAB HEMATOLOGY METHOD 05/31/2025 12:35 AM EDT [facility] MCH 29.1 26.0 - 32.0 pg LAB HEMATOLOGY METHOD 05/31/2025 12:35 AM EDT [facility] MCHC 32.8 30.7 - 35.5 g/dL LAB HEMATOLOGY METHOD 05/31/2025 12:35 AM EDT [facility] RDW 15.9(H) 11.5 - 14.5 % LAB HEMATOLOGY METHOD 05/31/2025 12:35 AM EDT [facility] MPV 11.9 8.8 - 12.5 fL LAB HEMATOLOGY METHOD 05/31/2025 12:35 AM EDT [facility] nRBC 0.0 <=0.0 per 100 WBCs LAB HEMATOLOGY METHOD 05/31/2025 12:35 AM EDT [facility] Blood Venous blood specimen / Unknown Venipuncture / Unknown 05/31/2025 12:14 AM EDT 05/31/2025 12:27 AM EDT us Nidia Vance APRN LAB BLOOD ORDERABLES Final Result Performing Organization Address City/[facility]/ZIP Co de Phone Number [facility] [address] [place] [address] * Magnesium, Plasma (05/31/2025 12:14 AM EDT) Magnesium, Plasma 2.0 1.9 - 2.4 mg/dL 05/31/2025 12:55 AM EDT [facility] Blood Venous blood specimen / Unknown Venipuncture / Unknown 05/31/2025 12:14 AM EDT 05/31/2025 12:25 AM EDT us Nidia Vance APRN LAB BLOOD ORDERABLES Final Result Performing Organization Address City/[facility]/ZIP Co de Phone Number [facility] [address] [place] [address] * (ABNORMAL) Renal Function Panel, Plasma (05/31/2025 12:14 AM EDT) Glucose, Plasma 129(H) 74 - 99 mg/dL 05/31/2025 12:55 AM EDT [facility] BUN, Plasma 22 8 - 23 mg/dL 05/31/2025 12:55 AM EDT [facility] Creatinine, Plasma 0.59(L) 0.60 - 1.10 mg/dL 05/31/2025 12:55 AM EDT [facility] BUN/Creatinine Ratio 37 05/31/2025 12:55 AM EDT [facility] Sodium, Plasma 147(H) 136 - 145 mmol/L 05/31/2025 12:55 AM EDT [facility] Potassium, Plasma 3.6 3.6 - 4.9 mmol/L 05/31/2025 12:55 AM EDT [facility] Chloride, Plasma 112(H) 97 - 107 mmol/L 05/31/2025 12:55 AM EDT [facility] CO2, Plasma 27 22 - 29 mmol/L 05/31/2025 12:55 AM EDT [facility] Anion Gap 8 6 - 16 mmol/L 05/31/2025 12:55 AM EDT [facility] Total Calcium, Plasma 8.6(L) 8.9 - 10.2 mg/dL 05/31/2025 12:55 AM EDT [facility] Phosphorus, Plasma 2.4(L) 2.5 - 4.5 mg/dL 05/31/2025 12:55 AM EDT [facility] Albumin, Plasma 3.2(L) 3.5 - 5.2 g/dL 05/31/2025 12:55 AM EDT [facility] eGFRcr 96.5 mL/min/1.7 3m*2 05/31/2025 12:55 AM EDT [facility] Comment:Reported eGFRcr in m L/min/1.73m2 is based the CKD-EPI 2020 equation that does not use a race coefficient. Blood Venous blood specimen / Unknown Venipuncture / Unknown 05/31/2025 12:14 AM EDT 05/31/2025 12:25 AM EDT us Nidia Vance APRN LAB BLOOD ORDERABLES Final Result [facility] [address] [place] [address] * (ABNORMAL) POCT glucose meter (05/31/2025 12:13 AM EDT) POCT Glucose 118(H) 74 - 99 mg/dL 05/31/2025 12:14 AM EDT [facility] Comment:Accuracy of a glucos e result obtained from a capillary whole blood specimen relies upon adequate, non-compromised capillary blood flow. If the capillary glucose result is not consistent with the patient's clinical signs and symptoms, glucose testing should be repeated with either an arterial or venous sample on the glucometer or sent to the main labortory for testing. Comment 05/31/2025 12:14 AM EDT [facility] Review Specialist ID Hari Chapin 05/31/2025 12:14 AM EDT [facility] Device ID [id number] 05/31/2025 12:14 AM EDT [facility] Specimen Type POC Venous 05/31/2025 12:14 AM EDT [facility] Blood Venous blood specimen / Unknown 05/31/2025 12:13 AM EDT 05/31/2025 12:14 AM EDT us Jose C Nicholson MD LAB POINT OF CARE TE ST DOCKED DEVICE UNSOLICITED RESULTS Final Result [facility] [address] [place] [address] * (ABNORMAL) POCT glucose meter (05/30/2025 5:56 PM EDT) POCT Glucose 134(H) 74 - 99 mg/dL 05/30/2025 5:58 PM EDT [facility] Comment:Accuracy of a glucos e result obtained from a capillary whole blood specimen relies upon adequate, non-compromised capillary blood flow. If the capillary glucose result is not consistent with the patient's clinical signs and symptoms, glucose testing should be repeated with either an arterial or venous sample on the glucometer or sent to the main labortory for testing. Comment 05/30/2025 5:58 PM EDT [facility] Review Specialist ID Kayla Ramirez 025 5:58 PM EDT [facility] Device ID [id number] 05/30/2025 5:58 PM EDT [facility] Specimen Type POC Capillary 05/30/2025 5:58 PM EDT [facility] Blood Capillary blood specimen / Unknown 05/30/2025 5:56 PM EDT 05/30/2025 5:58 PM EDT us Jose C Nicholson MD LAB POINT OF CARE TE ST DOCKED DEVICE UNSOLICITED RESULTS Final Result [facility] [address] [place] [id number] * (ABNORMAL) Blood gas panel, venous (05/30/2025 4:12 PM EDT) pH, Venous 7.42 7.32 - 7.43 LAB HEMATOLOGY METHOD 05/30/2025 4:24 PM EDT [facility] pCO2, Venous 46 37 - 52 mmHg LAB HEMATOLOGY METHOD 05/30/2025 4:24 PM EDT [facility] pO2, Venous 34 25 - 40 mmHg LAB HEMATOLOGY METHOD 05/30/2025 4:24 PM EDT [facility] SO2, Measured, Venous 67 65 - 80 % LAB HEMATOLOGY METHOD 05/30/2025 4:24 PM EDT [facility] Base Excess, Venous 4.8(H) -2.0 - 3.0 mmol/L LAB HEMATOLOGY METHOD 05/30/2025 4:24 PM EDT [facility] Bicarbonate, Calculated, Venous 30(H) 22 - 26 mmol/L LAB HEMATOLOGY METHOD 05/30/2025 4:24 PM EDT [facility] Hematocrit, Whole Blood 29.2(L) 34.0 - 45.0 % LAB HEMATOLOGY METHOD 05/30/2025 4:24 PM EDT [facility] Sodium, Whole Blood 147(H) 136 - 145 mmol/L LAB HEMATOLOGY METHOD 05/30/2025 4:24 PM EDT [facility] Potassium, Whole Blood 3.4(L) 3.6 - 4.9 mmol/L LAB HEMATOLOGY METHOD 05/30/2025 4:24 PM EDT [facility] Chloride, Whole Blood 108(H) 97 - 107 mmol/L LAB HEMATOLOGY METHOD 05/30/2025 4:24 PM EDT [facility] Glucose, Whole Blood 135(H) 74 - 99 mg/dL LAB HEMATOLOGY METHOD 05/30/2025 4:24 PM EDT [facility] Lactate, Venous, Whole Blood 1.4 0.5 - 2.2 mmol/L LAB HEMATOLOGY METHOD 05/30/2025 4:24 PM EDT [facility] Ionized Calcium, Whole Blood 5.0 4.6 - 5.1 mg/dL LAB HEMATOLOGY METHOD 05/30/2025 4:24 PM EDT [facility] Blood Venous blood specimen / Unknown Venipuncture / Unknown 05/30/2025 4:12 PM EDT 05/30/2025 4:22 PM EDT us Jose C Nicholson MD LAB BLOOD ORDERABLES Final Resu lt [facility] [address] [place] [address] * Magnesium, Plasma (05/30/2025 4:12 PM EDT) Magnesium, Plasma 2.0 1.9 - 2.4 mg/dL 05/30/2025 5:11 PM EDT [facility] Blood Venous blood specimen / Unknown Venipuncture / Unknown 05/30/2025 4:12 PM EDT 05/30/2025 4:39 PM EDT us Nidia Vance APRN LAB BLOOD ORDERABLES Final Result [facility] [address] [place] [address] * (ABNORMAL) Renal Function Panel, Plasma (05/30/2025 4:12 PM EDT) Glucose, Plasma 131(H) 74 - 99 mg/dL 05/30/2025 5:11 PM EDT [facility] BUN, Plasma 20 8 - 23 mg/dL 05/30/2025 5:11 PM EDT [facility] Creatinine, Plasma 0.60 0.60 - 1.10 mg/dL 05/30/2025 5:11 PM EDT [facility] BUN/Creatinine Ratio 33 05/30/2025 5:11 PM EDT [facility] Sodium, Plasma 146(H) 136 - 145 mmol/L 05/30/2025 5:11 PM EDT [facility] Potassium, Plasma 3.5(L) 3.6 - 4.9 mmol/L 05/30/2025 5:11 PM EDT [facility] Chloride, Plasma 108(H) 97 - 107 mmol/L 05/30/2025 5:11 PM EDT [facility] CO2, Plasma 25 22 - 29 mmol/L 05/30/2025 5:11 PM EDT [facility] Anion Gap 13 6 - 16 mmol/L 05/30/2025 5:11 PM EDT [facility] Total Calcium, Plasma 8.8(L) 8.9 - 10.2 mg/dL 05/30/2025 5:11 PM EDT [facility] Phosphorus, Plasma 2.1(L) 2.5 - 4.5 mg/dL 05/30/2025 5:11 PM EDT [facility] Albumin, Plasma 3.4(L) 3.5 - 5.2 g/dL 05/30/2025 5:11 PM EDT [facility] eGFRcr 96.1 mL/min/1.7 3m*2 05/30/2025 5:11 PM EDT [facility] Comment:Reported eGFRcr in m L/min/1.73m2 is based the CKD-EPI 2020 equation that does not use a race coefficient. Blood Venous blood specimen / Unknown Venipuncture / Unknown 05/30/2025 4:12 PM EDT 05/30/2025 4:39 PM EDT us Nidia Vance APRN LAB BLOOD ORDERABLES Final Result [facility] [address] [place] [address] * (ABNORMAL) Blood gas panel, venous (05/30/2025 2:35 PM EDT) pH, Venous 7.42 7.32 - 7.43 LAB HEMATOLOGY METHOD 05/30/2025 2:42 PM EDT [facility] pCO2, Venous 46 37 - 52 mmHg LAB HEMATOLOGY METHOD 05/30/2025 2:42 PM EDT [facility] pO2, Venous 38 25 - 40 mmHg LAB HEMATOLOGY METHOD 05/30/2025 2:42 PM EDT [facility] SO2, Measured, Venous 73 65 - 80 % LAB HEMATOLOGY METHOD 05/30/2025 2:42 PM EDT [facility] Base Excess, Venous 4.3(H) -2.0 - 3.0 mmol/L LAB HEMATOLOGY METHOD 05/30/2025 2:42 PM EDT [facility] Bicarbonate, Calculated, Venous 29(H) 22 - 26 mmol/L LAB HEMATOLOGY METHOD 05/30/2025 2:42 PM EDT [facility] Hematocrit, Whole Blood 27.6(L) 34.0 - 45.0 % LAB HEMATOLOGY METHOD 05/30/2025 2:42 PM EDT [facility] Sodium, Whole Blood 147(H) 136 - 145 mmol/L LAB HEMATOLOGY METHOD 05/30/2025 2:42 PM EDT [facility] Potassium, Whole Blood 3.7 3.6 - 4.9 mmol/L LAB HEMATOLOGY METHOD 05/30/2025 2:42 PM EDT [facility] Chloride, Whole Blood 109(H) 97 - 107 mmol/L LAB HEMATOLOGY METHOD 05/30/2025 2:42 PM EDT [facility] Glucose, Whole Blood 162(H) 74 - 99 mg/dL LAB HEMATOLOGY METHOD 05/30/2025 2:42 PM EDT [facility] Lactate, Venous, Whole Blood 1.0 0.5 - 2.2 mmol/L LAB HEMATOLOGY METHOD 05/30/2025 2:42 PM EDT [facility] Ionized Calcium, Whole Blood 4.9 4.6 - 5.1 mg/dL LAB HEMATOLOGY METHOD 05/30/2025 2:42 PM EDT [facility] Blood Venous blood specimen / Unknown Venipuncture / Unknown 05/30/2025 2:35 PM EDT 05/30/2025 2:40 PM EDT us Jose C Nicholson MD LAB BLOOD ORDERABLES Final Resu lt [facility] [address] [place] [address] * (ABNORMAL) POCT glucose meter (05/30/2025 12:20 PM EDT) [facility] POCT Glucose 166(H) 74 - 99 mg/dL 05/30/2025 12:22 PM EDT [facility] Comment:Accuracy of a glucos e result obtained from a capillary whole blood specimen relies upon adequate, non-compromised capillary blood flow. If the capillary glucose result is not consistent with the patient's clinical signs and symptoms, glucose testing should be repeated with either an arterial or venous sample on the glucometer or sent to the main labortory for testing. Comment 05/30/2025 12:22 PM EDT [facility] Review Specialist ID Kayla Ramirez 025 12:22 PM EDT [facility] Device ID [id number] 05/30/2025 12:22 PM EDT [facility] Specimen Type POC Capillary 05/30/2025 12:22 PM EDT [facility] Blood Capillary blood specimen / Unknown 05/30/2025 12:20 PM EDT 05/30/2025 12:22 PM EDT us Jose C Nicholson MD LAB POINT OF CARE TE ST DOCKED DEVICE UNSOLICITED RESULTS Final Result [facility] [address] [place] [address] * [place] CRITICAL CARE, ADDL 30 MIN (05/30/2025 12:09 PM EDT) Narrative Nidia Vance APRN - 05/30/2025 12:09 PM EDT Jose C Nicholson MD 05/31/2025 12:03 PM Critical Care Performed by: Nidia Vance APRN Authorized by: Nidia Vance APRN Critical care provider statement: Critical care time (minutes): 45 Critical care time was exclusive of: Separately billable procedures and treating other patients Critical care was time spent personally by me on the following activities: Development of treatment plan with patient or surrogate, ordering and performing treatments and interventions, ordering and review of laboratory studies, ordering and review of radiographic studies, ventilator management, obtaining history from patient or surrogate, examination of patient, evaluation of patient's response to treatment, discussions with consultants, discussions with primary provider and review of old charts I assumed subsequent critical care for this patient from a provider in my division, on the same day: yes Comments: The patient is critically ill with: acute resp failure on mechanical vent, encephalopathy, labile BP, hyperactive delirium. They require complex decision making. The patient was seen on rounds with critical care physician, Dr. Roberts and they are in agreement with the plan of care. Pharmacy, respiratory and nursing services were present on rounds. us Nidia Vance APRN IN CLINIC/BEDSIDE ORDERABLE S Final Result * (ABNORMAL) POCT glucose meter (05/30/2025 6:44 AM EDT) [facility] POCT Glucose 121(H) 74 - 99 mg/dL 05/30/2025 6:46 AM EDT [facility] Comment:Accuracy of a glucos e result obtained from a capillary whole blood specimen relies upon adequate, non-compromised capillary blood flow. If the capillary glucose result is not consistent with the patient's clinical signs and symptoms, glucose testing should be repeated with either an arterial or venous sample on the glucometer or sent to the main labortory for testing. Comment 05/30/2025 6:46 AM EDT [facility] Review Specialist ID Angelita Tyson 6:46 AM EDT [facility] Device ID [id number] 05/30/2025 6:46 AM EDT [facility] Specimen Type POC Capillary 05/30/2025 6:46 AM EDT [facility] Blood Capillary blood specimen / Unknown 05/30/2025 6:44 AM EDT 05/30/2025 6:46 AM EDT us Jose C Nicholson MD LAB POINT OF CARE TE ST DOCKED DEVICE UNSOLICITED RESULTS Final Result [facility] [address] [place] [address] * (ABNORMAL) Blood gas, arterial (05/30/2025 4:23 AM EDT) pH, Arterial 7.43(H) 7.31 - 7.42 LAB HEMATOLOGY METHOD 05/30/2025 4:36 AM EDT [facility] pCO2, Arterial 43 35 - 48 mmHg LAB HEMATOLOGY METHOD 05/30/2025 4:36 AM EDT [facility] pO2, Arterial 78 >70 mmHg LAB HEMATOLOGY METHOD 05/30/2025 4:36 AM EDT [facility] SO2, Measured, Arterial 96 94 - 98 % LAB HEMATOLOGY METHOD 05/30/2025 4:36 AM EDT [facility] Base Excess, Arterial 3.7(H) -2.0 - 3.0 mmol/L LAB HEMATOLOGY METHOD 05/30/2025 4:36 AM EDT [facility] Bicarbonate, Calculated, Arterial 28(H) 22 - 26 mmol/L LAB HEMATOLOGY METHOD 05/30/2025 4:36 AM EDT [facility] Hematocrit, Whole Blood 29.0(L) 34.0 - 45.0 % LAB HEMATOLOGY METHOD 05/30/2025 4:36 AM EDT [facility] Sodium, Whole Blood 147(H) 136 - 145 mmol/L LAB HEMATOLOGY METHOD 05/30/2025 4:36 AM EDT [facility] Potassium, Whole Blood 3.8 3.6 - 4.9 mmol/L LAB HEMATOLOGY METHOD 05/30/2025 4:36 AM EDT [facility] Chloride, Whole Blood 110(H) 97 - 107 mmol/L LAB HEMATOLOGY METHOD 05/30/2025 4:36 AM EDT [facility] Glucose, Whole Blood 127(H) 74 - 99 mg/dL LAB HEMATOLOGY METHOD 05/30/2025 4:36 AM EDT [facility] Ionized Calcium, Whole Blood 5.1 4.6 - 5.1 mg/dL LAB HEMATOLOGY METHOD 05/30/2025 4:36 AM EDT [facility] Lactate, Arterial, Whole Blood 0.9 0.5 - 1.6 mmol/L LAB HEMATOLOGY METHOD 05/30/2025 4:36 AM EDT [facility] Blood Arterial blood specimen / Unknown Arterial Puncture / Unknown 05/30/2025 4:23 AM EDT 05/30/2025 4:34 AM EDT us Jose C Nicholson MD LAB BLOOD ORDERABLES Final Resu lt [facility] [address] [place] [address] * (ABNORMAL) Blood gas panel, mixed venous (05/30/2025 4:22 AM EDT) pH, Mixed Venous 7.41 7.32 - 7.43 LAB HEMATOLOGY METHOD 05/30/2025 4:36 AM EDT [facility] pCO2, Mixed Venous 46 37 - 52 mmHg LAB HEMATOLOGY METHOD 05/30/2025 4:36 AM EDT [facility] pO2, Mixed Venous 37 25 - 40 mmHg LAB HEMATOLOGY METHOD 05/30/2025 4:36 AM EDT [facility] SO2, Measured, Mixed Venous 73 65 - 80 % LAB HEMATOLOGY METHOD 05/30/2025 4:36 AM EDT [facility] Base Excess, Mixed Venous 3.7(H) -2.0 - 3.0 mmol/L LAB HEMATOLOGY METHOD 05/30/2025 4:36 AM EDT [facility] Bicarbonate, Calculated, Mixed Venous 29(H) 22 - 26 mmol/L LAB HEMATOLOGY METHOD 05/30/2025 4:36 AM EDT [facility] Hematocrit, Whole Blood 28.6(L) 34.0 - 45.0 % LAB HEMATOLOGY METHOD 05/30/2025 4:36 AM EDT [facility] Sodium, Whole Blood 147(H) 136 - 145 mmol/L LAB HEMATOLOGY METHOD 05/30/2025 4:36 AM EDT [facility] Potassium, Whole Blood 3.7 3.6 - 4.9 mmol/L LAB HEMATOLOGY METHOD 05/30/2025 4:36 AM EDT [facility] Chloride, Whole Blood 111(H) 97 - 107 mmol/L LAB HEMATOLOGY METHOD 05/30/2025 4:36 AM EDT [facility] Ionized Calcium, Whole Blood 5.0 4.6 - 5.1 mg/dL LAB HEMATOLOGY METHOD 05/30/2025 4:36 AM EDT [facility] Glucose, Whole Blood 125(H) 74 - 99 mg/dL LAB HEMATOLOGY METHOD 05/30/2025 4:36 AM EDT [facility] Blood Mixed venous blood specimen / Unknown Venipuncture / Unknown 05/30/2025 4:22 AM EDT 05/30/2025 4:34 AM EDT us Nidia Vance APRN LAB BLOOD ORDERABLES Final Result [facility] [address] [place] [address] * XR Chest 1 View (05/30/2025 2:18 AM EDT) Anatomical Region Laterality Modality Chest Digital Radiogra phy Impressions 05/30/2025 4:17 AM EDT No significant interval change. CRITICAL RESULT: No. COMMUNICATION: Per this written report. Drafted by Les Steele MD on 05/30/2025 4:17 AM Final report signed by Les Steele MD on 05/30/2025 4:17 AM Narrative 05/30/2025 4:17 AM EDT CLINICAL INDICATION: respiratory failure TECHNIQUE: XR CHEST 1 VIEW COMPARISON: 05/29/2025. FINDINGS: Hardware stable. Mild improved vascular congestion and pulmonary edema. Trace pleural effusions. No pneumothorax. Procedure Note Les Steele MD - 05/30/2025 CLINICAL INDICATION: respiratory failure TECHNIQUE: XR CHEST 1 VIEW COMPARISON: 05/29/2025. FINDINGS: Hardware stable. Mild improved vascular congestion and pulmonary edema.Trace pleural effusions. No pneumothorax. IMPRESSION: No significant interval change. CRITICAL RESULT: No. COMMUNICATION: Per this written report. Drafted by Les Steele MD on 05/30/2025 4:17 AM Final report signed by Les Steele MD on 05/30/2025 4:17 AM us Nidia Vance APRN IMG XR PROCEDURES Final Res ult * (ABNORMAL) Blood gas panel, arterial (05/30/2025 12:58 AM EDT) pH, Arterial 7.41 7.31 - 7.42 LAB HEMATOLOGY METHOD 05/30/2025 1:19 AM EDT [facility] pCO2, Arterial 45 35 - 48 mmHg LAB HEMATOLOGY METHOD 05/30/2025 1:19 AM EDT [facility] pO2, Arterial 111 >70 mmHg LAB HEMATOLOGY METHOD 05/30/2025 1:19 AM EDT [facility] SO2, Measured, Arterial 98 94 - 98 % LAB HEMATOLOGY METHOD 05/30/2025 1:19 AM EDT [facility] Base Excess, Arterial 3.4(H) -2.0 - 3.0 mmol/L LAB HEMATOLOGY METHOD 05/30/2025 1:19 AM EDT [facility] Bicarbonate, Calculated, Arterial 29(H) 22 - 26 mmol/L LAB HEMATOLOGY METHOD 05/30/2025 1:19 AM EDT [facility] Hematocrit, Whole Blood 28.8(L) 34.0 - 45.0 % LAB HEMATOLOGY METHOD 05/30/2025 1:19 AM EDT [facility] Sodium, Whole Blood 147(H) 136 - 145 mmol/L LAB HEMATOLOGY METHOD 05/30/2025 1:19 AM EDT [facility] Potassium, Whole Blood 4.0 3.6 - 4.9 mmol/L LAB HEMATOLOGY METHOD 05/30/2025 1:19 AM EDT [facility] Chloride, Whole Blood 112(H) 97 - 107 mmol/L LAB HEMATOLOGY METHOD 05/30/2025 1:19 AM EDT [facility] Glucose, Whole Blood 118(H) 74 - 99 mg/dL LAB HEMATOLOGY METHOD 05/30/2025 1:19 AM EDT [facility] Ionized Calcium, Whole Blood 5.1 4.6 - 5.1 mg/dL LAB HEMATOLOGY METHOD 05/30/2025 1:19 AM EDT [facility] Lactate, Arterial, Whole Blood 0.7 0.5 - 1.6 mmol/L LAB HEMATOLOGY METHOD 05/30/2025 1:19 AM EDT [facility] Blood Arterial blood specimen / Unknown Arterial Puncture / Unknown 05/30/2025 12:58 AM EDT 05/30/2025 1:10 AM EDT us Nidia Vickers [place] [employer] PP CONSULTANT LAB BLOOD ORDERABLES Final Result [facility] [address] [place] [address] * (ABNORMAL) CBC W/O Differential (05/30/2025 12:58 AM EDT) WBC Count 9.27 3.70 - 10.30 10*3/uL LAB HEMATOLOGY METHOD 05/30/2025 1:23 AM EDT [facility] RBC Count 3.19(L) 3.90 - 5.20 10*6/uL LAB HEMATOLOGY METHOD 05/30/2025 1:23 AM EDT [facility] HGB 9.3(L) 11.2 - 15.7 g/dL LAB HEMATOLOGY METHOD 05/30/2025 1:23 AM EDT [facility] HCT 27.8(L) 34.0 - 45.0 % LAB HEMATOLOGY METHOD 05/30/2025 1:23 AM EDT [facility] Platelet Count 73(L) 155 - 369 10*3/uL LAB HEMATOLOGY METHOD 05/30/2025 1:23 AM EDT [facility] MCV 87 79 - 98 fL LAB HEMATOLOGY METHOD 05/30/2025 1:23 AM EDT [facility] MCH 29.2 26.0 - 32.0 pg LAB HEMATOLOGY METHOD 05/30/2025 1:23 AM EDT [facility] MCHC 33.5 30.7 - 35.5 g/dL LAB HEMATOLOGY METHOD 05/30/2025 1:23 AM EDT [facility] RDW 16.4(H) 11.5 - 14.5 % LAB HEMATOLOGY METHOD 05/30/2025 1:23 AM EDT [facility] MPV 11.8 8.8 - 12.5 fL LAB HEMATOLOGY METHOD 05/30/2025 1:23 AM EDT [facility] nRBC 0.0 <=0.0 per 100 WBCs LAB HEMATOLOGY METHOD 05/30/2025 1:23 AM EDT [facility] Blood Arterial blood specimen / Unknown Arterial Puncture / Unknown 05/30/2025 12:58 AM EDT 05/30/2025 1:12 AM EDT us Nidia Vickers Rajiv [employer] PP CONSULTANT LAB BLOOD ORDERABLES Final Result Performing Organization Address City/[facility]/ZIP Co de Phone Number [facility] [address] [place] [address] * Magnesium, Plasma (05/30/2025 12:58 AM EDT) Magnesium, Plasma 2.1 1.9 - 2.4 mg/dL 05/30/2025 1:40 AM EDT [facility] Blood Arterial blood specimen / Unknown Arterial Puncture / Unknown 05/30/2025 12:58 AM EDT 05/30/2025 1:11 AM EDT us Nidia Rancho Vance SAP PP CONSULTANT LAB BLOOD ORDERABLES Final Result Performing Organization Address [facility] Co de Phone Number [facility] [address] [place] [address] * (ABNORMAL) Renal Function Panel, Plasma (05/30/2025 12:58 AM EDT) Glucose, Plasma 122(H) 74 - 99 mg/dL 05/30/2025 1:40 AM EDT [facility] BUN, Plasma 26(H) 8 - 23 mg/dL 05/30/2025 1:40 AM EDT [facility] Creatinine, Plasma 0.69 0.60 - 1.10 mg/dL 05/30/2025 1:40 AM EDT [facility] BUN/Creatinine Ratio 38 05/30/2025 1:40 AM EDT [facility] Sodium, Plasma 147(H) 136 - 145 mmol/L 05/30/2025 1:40 AM EDT [facility] Potassium, Plasma 4.2 3.6 - 4.9 mmol/L 05/30/2025 1:40 AM EDT [facility] Chloride, Plasma 113(H) 97 - 107 mmol/L 05/30/2025 1:40 AM EDT [facility] CO2, Plasma 26 22 - 29 mmol/L 05/30/2025 1:40 AM EDT [facility] Anion Gap 8 6 - 16 mmol/L 05/30/2025 1:40 AM EDT [facility] Total Calcium, Plasma 9.3 8.9 - 10.2 mg/dL 05/30/2025 1:40 AM EDT [facility] Phosphorus, Plasma 2.4(L) 2.5 - 4.5 mg/dL 05/30/2025 1:40 AM EDT [facility] Albumin, Plasma 3.4(L) 3.5 - 5.2 g/dL 05/30/2025 1:40 AM EDT [facility] eGFRcr 92.9 mL/min/1.7 3m*2 05/30/2025 1:40 AM EDT [facility] Comment:Reported eGFRcr in m L/min/1.73m2 is based the CKD-EPI 2020 equation that does not use a race coefficient. Blood Arterial blood specimen / Unknown Arterial Puncture / Unknown 05/30/2025 12:58 AM EDT 05/30/2025 1:11 AM EDT us Nidia Vance SAP PP CONSULTANT LAB BLOOD ORDERABLES Final Result Performing Organization Address City/State/[facility] Co de Phone Number [facility] [address] [place] [address] * [place] CRITICAL CARE, E/M 30-74 MINUTES (05/29/2025 11:24 PM EDT) Narrative Gabby Duenas APRN, CNS, DNP - 05/29/2025 11:24 PM EDT Gabby Duenas APRN, CNS, DNP 05/29/2025 11:26 PM Critical Care Performed by: Gabby Duenas APRN, CNS, DNP Authorized by: Gabby Duenas APRN, CNS, DNP Critical care provider statement: Critical care time (minutes): 66 Critical care was time spent personally by me on the following activities: Development of treatment plan with patient or surrogate, discussions with consultants, discussions with primary provider, evaluation of patient's response to treatment, examination of patient, ordering and performing treatments and interventions, ordering and review of laboratory studies, ordering and review of radiographic studies, review of old charts and ventilator management Comments: The patient is critically ill with: s/p aortic arch replacement, ascending aortic replacement, COPD, HTN. They require complex decision making. The patient was seen on rounds with critical care physician, Dr. Jaime De Paz DO and they are in agreement with the plan of care. Pharmacy, respiratory and nursing services were present on rounds. Gabby Duenas APRN, WEED COOKING OPERATOR, DNP IN CLINIC/BEDSIDE ORDERABLES Final Result * (ABNORMAL) POCT glucose meter (05/29/2025 5:16 PM EDT) [facility] POCT Glucose 107(H) 74 - 99 mg/dL 05/29/2025 5:17 PM EDT [facility] Comment:Accuracy of a glucos e result obtained from a capillary whole blood specimen relies upon adequate, non-compromised capillary blood flow. If the capillary glucose result is not consistent with the patient's clinical signs and symptoms, glucose testing should be repeated with either an arterial or venous sample on the glucometer or sent to the main labortory for testing. Comment 05/29/2025 5:17 PM EDT [facility] Review Specialist ID Roxie Chacon 05/29/2025 5:17 PM EDT [facility] Device ID [id number] 05/29/2025 5:17 PM EDT [facility] Specimen Type POC Arterial 05/29/2025 5:17 PM EDT [facility] Blood Arterial blood specimen / Unknown 05/29/2025 5:16 PM EDT 05/29/2025 5:17 PM EDT us Jose C Nichloson MD LAB POINT OF CARE TE ST DOCKED DEVICE UNSOLICITED RESULTS Final Result [facility] [address] [place] [id number] * IA CRITICAL CARE, ADDL 30 MIN, [place] CRITICAL CARE, ADDL 30 MIN (05/29/2025 2:33 PM EDT) Narrative Nidia Vance APRN - 05/29/2025 2:33 PM EDT Jose C Nicholson MD 05/31/2025 12:03 PM Critical Care Performed by: Nidia Vance APRN Authorized by: Nidia Vance APRN Critical care provider statement: Critical care time (minutes): 65 Critical care time was exclusive of: Separately billable procedures and treating other patients Critical care was time spent personally by me on the following activities: Development of treatment plan with patient or surrogate, ordering and performing treatments and interventions, ordering and review of laboratory studies, ordering and review of radiographic studies, ventilator management, obtaining history from patient or surrogate, examination of patient, evaluation of patient's response to treatment, discussions with consultants, discussions with primary provider and review of old charts I assumed subsequent critical care for this patient from a provider in my division, on the same day: yes Comments: The patient is critically ill with: acute resp failure on mechanical vent, on levophed, encephalopathy. They require complex decision making. The patient was seen on rounds with critical care physician, Dr. Roberts and they are in agreement with the plan of care. Pharmacy, respiratory and nursing services were present on rounds. Nidia Vance APRN IN CLINIC/BEDSIDE ORDERABLE S Final Result * Magnesium, Plasma (05/29/2025 1:16 PM EDT) Magnesium, Plasma 2.2 1.9 - 2.4 mg/dL 05/29/2025 2:09 PM EDT [facility] Blood Arterial blood specimen / Unknown Arterial Puncture / Unknown 05/29/2025 1:16 PM EDT 05/29/2025 1:35 PM EDT us Nidia Vance APRN LAB BLOOD ORDERABLES Final Result [facility] [address] [place] [address] * (ABNORMAL) Renal Function Panel, Plasma (05/29/2025 1:16 PM EDT) Glucose, Plasma 105(H) 74 - 99 mg/dL 05/29/2025 2:09 PM EDT [facility] BUN, Plasma 26(H) 8 - 23 mg/dL 05/29/2025 2:09 PM EDT [facility] Creatinine, Plasma 0.73 0.60 - 1.10 mg/dL 05/29/2025 2:09 PM EDT [facility] BUN/Creatinine Ratio 36 05/29/2025 2:09 PM EDT [facility] Sodium, Plasma 146(H) 136 - 145 mmol/L 05/29/2025 2:09 PM EDT [facility] Potassium, Plasma 3.5(L) 3.6 - 4.9 mmol/L 05/29/2025 2:09 PM EDT [facility] Chloride, Plasma 109(H) 97 - 107 mmol/L 05/29/2025 2:09 PM EDT [facility] CO2, Plasma 27 22 - 29 mmol/L 05/29/2025 2:09 PM EDT [facility] Anion Gap 10 6 - 16 mmol/L 05/29/2025 2:09 PM EDT [facility] Total Calcium, Plasma 8.7(L) 8.9 - 10.2 mg/dL 05/29/2025 2:09 PM EDT [facility] Phosphorus, Plasma 2.3(L) 2.5 - 4.5 mg/dL 05/29/2025 2:09 PM EDT [facility] Albumin, Plasma 3.2(L) 3.5 - 5.2 g/dL 05/29/2025 2:09 PM EDT [facility] eGFRcr 88.0 mL/min/1.7 3m*2 05/29/2025 2:09 PM EDT [facility] Comment:Reported eGFRcr in m L/min/1.73m2 is based the CKD-EPI 2020 equation that does not use a race coefficient. Blood Arterial blood specimen / Unknown Arterial Puncture / Unknown 05/29/2025 1:16 PM EDT 05/29/2025 1:35 PM EDT us Nidia Vance SAP PP CONSULTANT LAB BLOOD ORDERABLES Final Result [facility] [address] [place] [address] * XR Abdomen 1 View (05/29/2025 1:14 PM EDT) Anatomical Region Laterality Modality Body Digital Radiogra phy Impressions 05/29/2025 4:09 PM EDT The tip of the feeding tube is within the proximal duodenum CRITICAL RESULT: No. COMMUNICATION: Per this written report. By electronically signing this report, I, the attending physician, attest that I have personally reviewed the images/data for the above examination(s) and agree with the final edited report. Drafted by Doyle Sawant III, MD on 05/29/2025 1:45 PM Final report signed by Jerry Bearden MD on 05/29/2025 4:09 PM Narrative 05/29/2025 4:09 PM EDT CLINICAL INDICATION: Post DHT placement TECHNIQUE: Supine radiograph of the abdomen. COMPARISON: Abdominal radiograph dated 05/27/2025. Chest x-ray 05/29/2025. CT 01/14/2025 FINDINGS: Limited [id number]-vf-rhlo abdominal radiograph for the purpose of locating tube position. The tip of the feeding tube is within the proximal duodenum. Procedure Note Jerry Bearden MD - 05/29/2025 CLINICAL INDICATION: Post DHT placement TECHNIQUE: Supine radiograph of the abdomen. COMPARISON: Abdominal radiograph dated 05/27/2025. Chest x-ray 05/29/2025. CT 01/14/2025 FINDINGS: Limited [id number]-[id number] abdominal radiograph for the purpose of locatingtube position. The tip of the feeding tube is within the proximal duodenum. IMPRESSION: The tip of the feeding tube is within the proximal duodenum CRITICAL RESULT: No. COMMUNICATION: Per this written report. By electronically signing this report, I, the attending physician, attestthat I have personally reviewed the images/data for the aboveexamination(s) and agree with the final edited report. Drafted by Doyle Sawant III, MD on 05/29/2025 1:45 PM Final report signed by Jerry Bearden MD on 05/29/2025 4:09 PM us Jose C Nicholson MD IMG XR PROCEDURES Final Result * (ABNORMAL) POCT glucose meter (05/29/2025 11:29 AM EDT) POCT Glucose 113(H) 74 - 99 mg/dL 05/29/2025 11:30 AM EDT [facility] Comment:Accuracy of a glucos e result obtained from a capillary whole blood specimen relies upon adequate, non-compromised capillary blood flow. If the capillary glucose result is not consistent with the patient's clinical signs and symptoms, glucose testing should be repeated with either an arterial or venous sample on the glucometer or sent to the main labortory for testing. Comment 05/29/2025 11:30 AM EDT [facility] Review Specialist ID Roxie Chacon 05/29/2025 11:30 AM EDT [facility] Device ID [id number] 05/29/2025 11:30 AM EDT [facility] Specimen Type POC Arterial 05/29/2025 11:30 AM EDT [facility] Blood Arterial blood specimen / Unknown 05/29/2025 11:29 AM EDT 05/29/2025 11:30 AM EDT us Jose C Nicholson MD LAB POINT OF CARE TE ST DOCKED DEVICE UNSOLICITED RESULTS Final Result Performing Organization Address City/State/[facility] Co de Phone Number [facility] [address] [place] [address] * XR Chest 1 View (05/29/2025 2:05 AM EDT) Anatomical Region Laterality Modality Chest Digital Radiogra phy Impressions 05/29/2025 5:20 AM EDT No significant interval change. CRITICAL RESULT: No. COMMUNICATION: Per this written report. Drafted by Les Steele MD on 05/29/2025 5:18 AM Final report signed by Les Steele MD on 05/29/2025 5:20 AM Narrative 05/29/2025 5:20 AM EDT CLINICAL INDICATION: Post-Op Cardiac Surgery TECHNIQUE: XR CHEST 1 VIEW COMPARISON: 05/28/2025. FINDINGS: Hardware stable. Improved aeration with persistent left-sided pleural effusion and enlarged mediastinal silhouette . Procedure Note Les Steele MD - 05/29/2025 CLINICAL INDICATION: Post-Op Cardiac Surgery TECHNIQUE: XR CHEST 1 VIEW COMPARISON: 05/28/2025. FINDINGS: Hardware stable. Improved aeration with persistent left-sided pleuraleffusion and enlarged mediastinal silhouette . IMPRESSION: No significant interval change. CRITICAL RESULT: No. COMMUNICATION: Per this written report. Drafted by Les Steele MD on 05/29/2025 5:18 AM Final report signed by Les Steele MD on 05/29/2025 5:20 AM Jose C Nicholson MD IMG XR PROCEDURES Final Result * (ABNORMAL) Blood gas panel with oximetry, mixed venous (05/29/2025 1:23 AM EDT) pH, Mixed Venous 7.42 7.32 - 7.43 LAB HEMATOLOGY METHOD 05/29/2025 1:33 AM EDT [facility] pCO2, Mixed Venous 45 37 - 52 mmHg LAB HEMATOLOGY METHOD 05/29/2025 1:33 AM EDT [facility] pO2, Mixed Venous 51(H) 25 - 40 mmHg LAB HEMATOLOGY METHOD 05/29/2025 1:33 AM EDT [facility] SO2, Measured, Mixed Venous 87(H) 65 - 80 % LAB HEMATOLOGY METHOD 05/29/2025 1:33 AM EDT [facility] Bicarbonate, Calculated, Mixed Venous 29(H) 22 - 26 mmol/L LAB HEMATOLOGY METHOD 05/29/2025 1:33 AM EDT [facility] Base Excess, Mixed Venous 4.2(H) -2.0 - 3.0 mmol/L LAB HEMATOLOGY METHOD 05/29/2025 1:33 AM EDT [facility] Hematocrit, Whole Blood 29.0(L) 34.0 - 45.0 % LAB HEMATOLOGY METHOD 05/29/2025 1:33 AM EDT [facility] Sodium, Whole Blood 147(H) 136 - 145 mmol/L LAB HEMATOLOGY METHOD 05/29/2025 1:33 AM EDT [facility] Potassium, Whole Blood 3.2(L) 3.6 - 4.9 mmol/L LAB HEMATOLOGY METHOD 05/29/2025 1:33 AM EDT [facility] Chloride, Whole Blood 109(H) 97 - 107 mmol/L LAB HEMATOLOGY METHOD 05/29/2025 1:33 AM EDT [facility] Ionized Calcium, Whole Blood 4.6 4.6 - 5.1 mg/dL LAB HEMATOLOGY METHOD 05/29/2025 1:33 AM EDT [facility] Glucose, Whole Blood 110(H) 74 - 99 mg/dL LAB HEMATOLOGY METHOD 05/29/2025 1:33 AM EDT [facility] Oxyhemoglobin, Mixed Venous, Whole Blood 85.4(H) 40.0 - 70.0 % LAB HEMATOLOGY METHOD 05/29/2025 1:33 AM EDT [facility] Hemoglobin Reduced, Mixed Venous, Whole Blood 12.8 % LAB HEMATOLOGY METHOD 05/29/2025 1:33 AM EDT [facility] Total Hemoglobin, Mixed Venous, Whole Blood 9.5(L) 11.2 - 15.7 g/dL LAB HEMATOLOGY METHOD 05/29/2025 1:33 AM EDT [facility] Blood Mixed venous blood specimen / Unknown Venipuncture / Unknown 05/29/2025 1:23 AM EDT 05/29/2025 1:31 AM EDT us Jose C Nicholson MD LAB BLOOD ORDERABLES Final Resu lt [facility] [address] [place] [address] * (ABNORMAL) Blood gas, arterial (05/29/2025 1:23 AM EDT) pH, Arterial 7.47(H) 7.31 - 7.42 LAB HEMATOLOGY METHOD 05/29/2025 1:33 AM EDT [facility] pCO2, Arterial 40 35 - 48 mmHg LAB HEMATOLOGY METHOD 05/29/2025 1:33 AM EDT [facility] pO2, Arterial 176 >70 mmHg LAB HEMATOLOGY METHOD 05/29/2025 1:33 AM EDT [facility] SO2, Measured, Arterial 100(H) 94 - 98 % LAB HEMATOLOGY METHOD 05/29/2025 1:33 AM EDT [facility] Base Excess, Arterial 5.1(H) -2.0 - 3.0 mmol/L LAB HEMATOLOGY METHOD 05/29/2025 1:33 AM EDT [facility] Bicarbonate, Calculated, Arterial 29(H) 22 - 26 mmol/L LAB HEMATOLOGY METHOD 05/29/2025 1:33 AM EDT [facility] Hematocrit, Whole Blood 30.1(L) 34.0 - 45.0 % LAB HEMATOLOGY METHOD 05/29/2025 1:33 AM EDT [facility] Sodium, Whole Blood 146(H) 136 - 145 mmol/L LAB HEMATOLOGY METHOD 05/29/2025 1:33 AM EDT [facility] Potassium, Whole Blood 3.4(L) 3.6 - 4.9 mmol/L LAB HEMATOLOGY METHOD 05/29/2025 1:33 AM EDT [facility] Chloride, Whole Blood 108(H) 97 - 107 mmol/L LAB HEMATOLOGY METHOD 05/29/2025 1:33 AM EDT [facility] Glucose, Whole Blood 115(H) 74 - 99 mg/dL LAB HEMATOLOGY METHOD 05/29/2025 1:33 AM EDT [facility] Ionized Calcium, Whole Blood 4.7 4.6 - 5.1 mg/dL LAB HEMATOLOGY METHOD 05/29/2025 1:33 AM EDT [facility] Lactate, Arterial, Whole Blood 0.8 0.5 - 1.6 mmol/L LAB HEMATOLOGY METHOD 05/29/2025 1:33 AM EDT [facility] Blood Arterial blood specimen / Unknown Arterial Puncture / Unknown 05/29/2025 1:23 AM EDT 05/29/2025 1:32 AM EDT Yvrose Campbell [facility] BLOOD ORDERABLES Final Result Performing Organization Address City/State/[facility] Co de Phone Number [facility] [address] [place] [address] * Triglycerides (05/29/2025 1:23 AM EDT) Triglycerides, Plasma 109 <150 mg/dL 05/29/2025 2:22 AM EDT [facility] Comment: Triglyceride Reference Range (age >17 years): Desirable: <150 mg/dL Borderline high: 150 to 199 mg/dL High: 200 to 499 mg/dL Very high: >499 mg/dL Increased risk of pancreatitis: >1000 mg/dL Fasting greater than or equal to 12 hours? Yes 05/29/2025 2:22 AM EDT [facility] Blood Venous blood specimen / Unknown Venipuncture / Unknown 05/29/2025 1:23 AM EDT 05/29/2025 1:29 AM EDT Yvroes Campbell APRN LAB BLOOD ORDERABLES Final Result [facility] [address] [place] [address] * (ABNORMAL) CBC (05/29/2025 1:23 AM EDT) WBC Count 11.40(H) 3.70 - 10.30 10*3/uL LAB HEMATOLOGY METHOD 05/29/2025 1:53 AM EDT [facility] RBC Count 3.54(L) 3.90 - 5.20 10*6/uL LAB HEMATOLOGY METHOD 05/29/2025 1:53 AM EDT [facility] HGB 10.1(L) 11.2 - 15.7 g/dL LAB HEMATOLOGY METHOD 05/29/2025 1:53 AM EDT [facility] HCT 29.6(L) 34.0 - 45.0 % LAB HEMATOLOGY METHOD 05/29/2025 1:53 AM EDT [facility] Platelet Count 87(L) 155 - 369 10*3/uL LAB HEMATOLOGY METHOD 05/29/2025 1:53 AM EDT [facility] MCV 84 79 - 98 fL LAB HEMATOLOGY METHOD 05/29/2025 1:53 AM EDT [facility] MCH 28.5 26.0 - 32.0 pg LAB HEMATOLOGY METHOD 05/29/2025 1:53 AM EDT [facility] MCHC 34.1 30.7 - 35.5 g/dL LAB HEMATOLOGY METHOD 05/29/2025 1:53 AM EDT [facility] RDW 15.9(H) 11.5 - 14.5 % LAB HEMATOLOGY METHOD 05/29/2025 1:53 AM EDT [facility] MPV 12.1 8.8 - 12.5 fL LAB HEMATOLOGY METHOD 05/29/2025 1:53 AM EDT [facility] nRBC 0.2(H) <=0.0 per 100 WBCs LAB HEMATOLOGY METHOD 05/29/2025 1:53 AM EDT [facility] Blood Venous blood specimen / Unknown Venipuncture / Unknown 05/29/2025 1:23 AM EDT 05/29/2025 1:29 AM EDT us Rosalba Sebastien Andre SAP PP CONSULTANT LAB BLOOD ORDERABLES Barbara tianna Result [facility] [address] [place] [address] * (ABNORMAL) Basic metabolic panel (05/29/2025 1:23 AM EDT) Glucose, Plasma 116(H) 74 - 99 mg/dL 05/29/2025 2:22 AM EDT [facility] BUN, Plasma 27(H) 8 - 23 mg/dL 05/29/2025 2:22 AM EDT [facility] Creatinine, Plasma 0.80 0.60 - 1.10 mg/dL 05/29/2025 2:22 AM EDT [facility] BUN/Creatinine Ratio 34 05/29/2025 2:22 AM EDT [facility] Sodium, Plasma 147(H) 136 - 145 mmol/L 05/29/2025 2:22 AM EDT [facility] Potassium, Plasma 3.7 3.6 - 4.9 mmol/L 05/29/2025 2:22 AM EDT [facility] Chloride, Plasma 110(H) 97 - 107 mmol/L 05/29/2025 2:22 AM EDT [facility] CO2, Plasma 26 22 - 29 mmol/L 05/29/2025 2:22 AM EDT [facility] Anion Gap 11 6 - 16 mmol/L 05/29/2025 2:22 AM EDT [facility] Total Calcium, Plasma 8.8(L) 8.9 - 10.2 mg/dL 05/29/2025 2:22 AM EDT [facility] eGFRcr 78.9 mL/min/1.7 3m*2 05/29/2025 2:22 AM EDT [facility] Comment:Reported eGFRcr in m L/min/1.73m2 is based the CKD-EPI 2020 equation that does not use a race coefficient. Blood Venous blood specimen / Unknown Venipuncture / Unknown 05/29/2025 1:23 AM EDT 05/29/2025 1:29 AM EDT Rosalba Sebastien Andre SAP PP CONSULTANT LAB BLOOD ORDERABLES Barbara l Result Performing Organization Address [facility] Co de Phone Number [facility] [address] [place] [address] * (ABNORMAL) Magnesium (05/29/2025 1:23 AM EDT) Magnesium, Plasma 2.6(H) 1.9 - 2.4 mg/dL 05/29/2025 2:[address] [facility] Blood Venous blood specimen / Unknown Venipuncture / Unknown 05/29/2025 1:23 AM EDT 05/29/2025 1:29 AM EDT Yvrose Campbell SAP PP CONSULTANT LAB BLOOD ORDERABLES Final Result Performing Organization Address [facility] Co de Phone Number [facility] [address] [place] [address] * [place] CRITICAL CARE, E/M 30-74 MINUTES (05/29/2025 12:40 AM EDT) Narrative Gabby Duenas APRN, CNS, DNP - 05/29/2025 12:40 AM EDT Gabby Duenas APRN, CNS, DNP 05/29/2025 12:46 AM Critical Care Performed by: Gabby Duenas APRN, CNS, DNP Authorized by: Gabby Duenas APRN, CNS, DNP Critical care provider statement: Critical care time (minutes): 66 Critical care was time spent personally by me on the following activities: Development of treatment plan with patient or surrogate, discussions with consultants, discussions with primary provider, evaluation of patient's response to treatment, examination of patient, ordering and performing treatments and interventions, ordering and review of laboratory studies, ordering and review of radiographic studies, ventilator management and review of old charts Comments: The patient is critically ill with: s/p aortic arch replacement, ascending aortic replacement, COPD, HTN. They require complex decision making. The patient was seen on rounds with critical care physician, Dr. Jaime De Paz DO and they are in agreement with the plan of care. Pharmacy, respiratory and nursing services were present on rounds. Gabby Duenas SAP PP CONSULTANT, WEED COOKING OPERATOR, DNP IN CLINIC/BEDSIDE ORDERABLES Final Result * (ABNORMAL) Hemoglobin and Hematocrit, Blood (05/28/2025 5:07 PM EDT) HGB 10.0(L) 11.2 - 15.7 g/dL LAB HEMATOLOGY METHOD 05/28/2025 5:33 PM EDT [facility] HCT 29.1(L) 34.0 - 45.0 % LAB HEMATOLOGY METHOD 05/28/2025 5:33 PM EDT [facility] Blood Arterial blood specimen / Unknown Arterial Puncture / Unknown 05/28/2025 5:07 PM EDT 05/28/2025 5:23 PM EDT Yvrose Campbell APRN LAB BLOOD ORDERABLES Final Result [facility] [address] [place] [address] * (ABNORMAL) Blood gas panel, arterial (05/28/2025 5:06 PM EDT) pH, Arterial 7.41 7.31 - 7.42 LAB HEMATOLOGY METHOD 05/28/2025 5:21 PM EDT [facility] pCO2, Arterial 47 35 - 48 mmHg LAB HEMATOLOGY METHOD 05/28/2025 5:21 PM EDT [facility] pO2, Arterial 119 >70 mmHg LAB HEMATOLOGY METHOD 05/28/2025 5:21 PM EDT [facility] SO2, Measured, Arterial 98 94 - 98 % LAB HEMATOLOGY METHOD 05/28/2025 5:21 PM EDT [facility] Base Excess, Arterial 4.6(H) -2.0 - 3.0 mmol/L LAB HEMATOLOGY METHOD 05/28/2025 5:21 PM EDT [facility] Bicarbonate, Calculated, Arterial 30(H) 22 - 26 mmol/L LAB HEMATOLOGY METHOD 05/28/2025 5:21 PM EDT [facility] Hematocrit, Whole Blood 31.5(L) 34.0 - 45.0 % LAB HEMATOLOGY METHOD 05/28/2025 5:21 PM EDT [facility] Sodium, Whole Blood 148(H) 136 - 145 mmol/L LAB HEMATOLOGY METHOD 05/28/2025 5:21 PM EDT [facility] Potassium, Whole Blood 4.0 3.6 - 4.9 mmol/L LAB HEMATOLOGY METHOD 05/28/2025 5:21 PM EDT [facility] Chloride, Whole Blood 107 97 - 107 mmol/L LAB HEMATOLOGY METHOD 05/28/2025 5:21 PM EDT [facility] Glucose, Whole Blood 124(H) 74 - 99 mg/dL LAB HEMATOLOGY METHOD 05/28/2025 5:21 PM EDT [facility] Ionized Calcium, Whole Blood 4.7 4.6 - 5.1 mg/dL LAB HEMATOLOGY METHOD 05/28/2025 5:21 PM EDT [facility] Lactate, Arterial, Whole Blood 1.3 0.5 - 1.6 mmol/L LAB HEMATOLOGY METHOD 05/28/2025 5:21 PM EDT [facility] Blood Arterial blood specimen / Unknown Arterial Puncture / Unknown 05/28/2025 5:06 PM EDT 05/28/2025 5:18 PM EDT us Jose C Nicholson MD LAB BLOOD ORDERABLES Final Resu lt [facility] [address] [place] [address] * Transfuse RBC (05/28/2025 4:32 PM EDT) us Yvrose Campbell APRN BLOOD TRANSFUSION ORDERABL ES Final Result * Transfuse RBC: 1 Units (05/28/2025 4:32 PM EDT) us Yvrose Campbell SAP PP CONSULTANT BLOOD TRANSFUSION ORDERABL ES Final Result * Prepare Leukocyte Reduced RBC: 1 Units (05/28/2025 1:38 PM EDT) [facility] Signature Product Code [id number] BLOO D BANK Dispense Status Transfused BLOOD BANK Blood Expiration Date [id number] BLOOD BANK Unit Number [id number] CH B LOOD BANK Product Blood Type 6200 BLOOD BANK Blood Type A+ BLOOD BANK Crossmatch Compatible BLOOD BANK Other Yvrose Campbell APRN BLOOD BANK PRODUCT ORDERAB LES Final Result BLOOD BANK [address] [place] [address], * [place] CRITICAL CARE, E/M 30-74 MINUTES, [place] CRITICAL CARE, ADDL 30 MIN (05/28/2025 12:40 PM EDT) Narrative Yvrose Campbell APRN - 05/28/2025 12:40 PM EDT Yvrose Campbell APRN 05/28/2025 1:02 PM Critical Care Performed by: Yvrose Campbell APRN Authorized by: Yvrose Campbell APRN Critical care provider statement: Critical care time (minutes): 110 Critical care was time spent personally by me on the following activities: Ventilator management, ordering and review of radiographic studies, ordering and review of laboratory studies, evaluation of patient's response to treatment, obtaining history from patient or surrogate and ordering and performing treatments and interventions Comments: The patient is critically ill with: 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 They require complex decision making. The patient was seen on rounds with critical care physician, Dr. Roberts and they are in agreement with the plan of care. Pharmacy, respiratory and nursing services were present on rounds. Yvrose Campbell APRN IN CLINIC/BEDSIDE ORDERABL ES Final Result * (ABNORMAL) Magnesium (05/28/2025 12:22 PM EDT) Magnesium, Plasma 2.8(H) 1.9 - 2.4 mg/dL 05/28/2025 1:53 PM EDT [facility] Blood Arterial blood specimen / Unknown Arterial Puncture / Unknown 05/28/2025 12:22 PM EDT 05/28/2025 12:39 PM EDT us Jose C Nicholson MD LAB BLOOD ORDERABLES Final Resu lt [facility] [address] [place] [address] * (ABNORMAL) CBC W/O Differential (05/28/2025 12:22 PM EDT) WBC Count 9.98 3.70 - 10.30 10*3/uL LAB HEMATOLOGY METHOD 05/28/2025 1:10 PM EDT [facility] RBC Count 3.01(L) 3.90 - 5.20 10*6/uL LAB HEMATOLOGY METHOD 05/28/2025 1:10 PM EDT [facility] HGB 8.7(L) 11.2 - 15.7 g/dL LAB HEMATOLOGY METHOD 05/28/2025 1:10 PM EDT [facility] HCT 25.6(L) 34.0 - 45.0 % LAB HEMATOLOGY METHOD 05/28/2025 1:10 PM EDT [facility] Platelet Count 108(L) 155 - 369 10*3/uL LAB HEMATOLOGY METHOD 05/28/2025 1:10 PM EDT [facility] MCV 85 79 - 98 fL LAB HEMATOLOGY METHOD 05/28/2025 1:10 PM EDT [facility] MCH 28.9 26.0 - 32.0 pg LAB HEMATOLOGY METHOD 05/28/2025 1:10 PM EDT [facility] MCHC 34.0 30.7 - 35.5 g/dL LAB HEMATOLOGY METHOD 05/28/2025 1:10 PM EDT [facility] RDW 16.1(H) 11.5 - 14.5 % LAB HEMATOLOGY METHOD 05/28/2025 1:10 PM EDT [facility] MPV 12.1 8.8 - 12.5 fL LAB HEMATOLOGY METHOD 05/28/2025 1:10 PM EDT [facility] nRBC 0.0 <=0.0 per 100 WBCs LAB HEMATOLOGY METHOD 05/28/2025 1:10 PM EDT [facility] Blood Arterial blood specimen / Unknown Arterial Puncture / Unknown 05/28/2025 12:22 PM EDT 05/28/2025 12:50 PM EDT us Jose C Nicholson MD LAB BLOOD ORDERABLES Final Resu lt [facility] [address] [place] [address] * (ABNORMAL) Renal Function Panel, Plasma (05/28/2025 12:22 PM EDT) Glucose, Plasma 132(H) 74 - 99 mg/dL 05/28/2025 1:17 PM EDT [facility] BUN, Plasma 26(H) 8 - 23 mg/dL 05/28/2025 1:17 PM EDT [facility] Creatinine, Plasma 0.88 0.60 - 1.10 mg/dL 05/28/2025 1:17 PM EDT [facility] BUN/Creatinine Ratio 30 05/28/2025 1:17 PM EDT [facility] Sodium, Plasma 147(H) 136 - 145 mmol/L 05/28/2025 1:17 PM EDT [facility] Potassium, Plasma 3.7 3.6 - 4.9 mmol/L 05/28/2025 1:17 PM EDT [facility] Chloride, Plasma 107 97 - 107 mmol/L 05/28/2025 1:17 PM EDT [facility] CO2, Plasma 24 22 - 29 mmol/L 05/28/2025 1:17 PM EDT [facility] Anion Gap 16 6 - 16 mmol/L 05/28/2025 1:17 PM EDT [facility] Total Calcium, Plasma 10.2 8.9 - 10.2 mg/dL 05/28/2025 1:17 PM EDT [facility] Phosphorus, Plasma 4.7(H) 2.5 - 4.5 mg/dL 05/28/2025 1:17 PM EDT [facility] Albumin, Plasma 3.5 3.5 - 5.2 g/dL 05/28/2025 1:17 PM EDT [facility] eGFRcr 70.4 mL/min/1.7 3m*2 05/28/2025 1:17 PM EDT [facility] Comment:Reported eGFRcr in m L/min/1.73m2 is based the CKD-EPI 2020 equation that does not use a race coefficient. Blood Arterial blood specimen / Unknown Arterial Puncture / Unknown 05/28/2025 12:22 PM EDT 05/28/2025 12:39 PM EDT Yvrose Campbell [facility] BLOOD ORDERABLES Final Result [facility] [address] [place] [address] * (ABNORMAL) POCT arterial blood gas gem (05/28/2025 12:07 PM EDT) pH, Arterial 7.38 7.31 - 7.42 05/28/2025 12:09 PM EDT [facility] pCO2, Arterial 43 35 - 48 mm Hg 05/28/2025 12:09 PM EDT [facility] pO2, Arterial 89 >70 mm Hg 05/28/2025 12:09 PM EDT [facility] SO2, Arterial 98 94 - 98 % 05/28/2025 12:09 PM EDT [facility] FIO2 50.0 % 05/28/2025 12:09 PM EDT [facility] Base Excess, Arterial 0.2 -2 - 3 mmol/L 05/28/2025 12:09 PM EDT [facility] HCO3, Arterial 25.4 22 - 26 mmol/L 05/28/2025 12:09 PM EDT [facility] Total Hemoglobin, Arterial, Whole Blood 8.3(L) 11.2 - 15.7 g/dL 05/28/2025 12:09 PM EDT [facility] Hematocrit, Arterial 25.0(L) 34.0 - 45.0 % 05/28/2025 12:09 PM EDT [facility] Sodium, Arterial 145 136 - 145 mmol/L 05/28/2025 12:09 PM EDT [facility] Potassium, Arterial 3.9 3.6 - 4.9 mmol/L 05/28/2025 12:09 PM EDT [facility] Chloride, Whole Blood 107 97 - 107 mmol/L 05/28/2025 12:09 PM EDT [facility] Glucose, Arterial 136(H) 74 - 99 mg/dL 05/28/2025 12:09 PM EDT [facility] Ionized Calcium, Arterial 4.6 4.6 - 5.1 mg/dL 05/28/2025 12:09 PM EDT [facility] Lactate, Arterial 3.3(H) 0.5 - 1.6 mmol/L 05/28/2025 12:09 PM EDT [facility] Body Temperature 37.0 Celsius 05/28/2025 12:09 PM EDT [facility] pH, Temp Corrected, Arterial 7.38 7.31 - 7.42 05/28/2025 12:09 PM EDT [facility] pCO2, Temp Corrected, Arterial 43 35 - 48 mm Hg 05/28/2025 12:09 PM EDT [facility] pO2, Temp Corrected, Arterial 89 >70 mm Hg 05/28/2025 12:09 PM EDT [facility] Review Specialist ID Kelly Zamora 05/28/2025 12:09 PM EDT [facility] Blood, Arterial Whole blood specimen / Unknown 05/28/2025 12:07 PM EDT 05/28/2025 12:09 PM EDT us Jose C Nicholson MD LAB POINT OF CARE TE ST DOCKED DEVICE UNSOLICITED RESULTS Final Result [facility] [address] [place] [address] * (ABNORMAL) Blood gas panel, arterial (05/28/2025 7:54 AM EDT) pH, Arterial 7.38 7.31 - 7.42 LAB HEMATOLOGY METHOD 05/28/2025 8:13 AM EDT [facility] pCO2, Arterial 48 35 - 48 mmHg LAB HEMATOLOGY METHOD 05/28/2025 8:13 AM EDT [facility] pO2, Arterial 126 >70 mmHg LAB HEMATOLOGY METHOD 05/28/2025 8:13 AM EDT [facility] SO2, Measured, Arterial 98 94 - 98 % LAB HEMATOLOGY METHOD 05/28/2025 8:13 AM EDT [facility] Base Excess, Arterial 2.6 -2.0 - 3.0 mmol/L LAB HEMATOLOGY METHOD 05/28/2025 8:13 AM EDT [facility] Bicarbonate, Calculated, Arterial 28(H) 22 - 26 mmol/L LAB HEMATOLOGY METHOD 05/28/2025 8:13 AM EDT [facility] Hematocrit, Whole Blood 30.4(L) 34.0 - 45.0 % LAB HEMATOLOGY METHOD 05/28/2025 8:13 AM EDT [facility] Sodium, Whole Blood 145 136 - 145 mmol/L LAB HEMATOLOGY METHOD 05/28/2025 8:13 AM EDT [facility] Potassium, Whole Blood 3.7 3.6 - 4.9 mmol/L LAB HEMATOLOGY METHOD 05/28/2025 8:13 AM EDT [facility] Chloride, Whole Blood 107 97 - 107 mmol/L LAB HEMATOLOGY METHOD 05/28/2025 8:13 AM EDT [facility] Glucose, Whole Blood 136(H) 74 - 99 mg/dL LAB HEMATOLOGY METHOD 05/28/2025 8:13 AM EDT [facility] Ionized Calcium, Whole Blood 4.5(L) 4.6 - 5.1 mg/dL LAB HEMATOLOGY METHOD 05/28/2025 8:13 AM EDT [facility] Lactate, Arterial, Whole Blood 1.7(H) 0.5 - 1.6 mmol/L LAB HEMATOLOGY METHOD 05/28/2025 8:13 AM EDT [facility] Blood Arterial blood specimen / Unknown Arterial Puncture / Unknown 05/28/2025 7:54 AM EDT 05/28/2025 8:12 AM EDT Yvrose Campbell [facility] LAB BLOOD ORDERABLES Final Result [facility] [address] [place] [address] * Potassium, Plasma (05/28/2025 6:01 AM EDT) Potassium, Plasma 3.8 3.6 - 4.9 mmol/L 05/28/2025 6:34 AM EDT [facility] Comment:Hemolyzed, result ma y be falsely increased. Blood Arterial blood specimen / Unknown Arterial Puncture / Unknown 05/28/2025 6:01 AM EDT 05/28/2025 6:10 AM EDT us Jose C Nicholson MD LAB BLOOD ORDERABLES Final Resu lt Performing Organization Address [facility] Co de Phone Number [facility] [address] [place] [address] * (ABNORMAL) Hematocrit (05/28/2025 6:01 AM EDT) HCT 29.0(L) 34.0 - 45.0 % LAB HEMATOLOGY METHOD 05/28/2025 6:20 AM EDT [facility] Blood Arterial blood specimen / Unknown Arterial Puncture / Unknown 05/28/2025 6:01 AM EDT 05/28/2025 6:11 AM EDT us Jose C Nicholson MD LAB BLOOD ORDERABLES Final Resu lt Performing Organization Address [facility] Co de Phone Number [facility] [address] [place] [address] * (ABNORMAL) Hemoglobin (05/28/2025 6:01 AM EDT) HGB 10.1(L) 11.2 - 15.7 g/dL LAB HEMATOLOGY METHOD 05/28/2025 6:20 AM EDT [facility] Blood Arterial blood specimen / Unknown Arterial Puncture / Unknown 05/28/2025 6:01 AM EDT 05/28/2025 6:11 AM EDT us Jose C Nicholson MD LAB BLOOD ORDERABLES Final Resu lt Performing Organization Address [facility] Co de Phone Number [facility] [address] [place] [address] * (ABNORMAL) Blood gas, arterial (05/28/2025 5:58 AM EDT) pH, Arterial 7.38 7.31 - 7.42 LAB HEMATOLOGY METHOD 05/28/2025 6:08 AM EDT [facility] pCO2, Arterial 49(H) 35 - 48 mmHg LAB HEMATOLOGY METHOD 05/28/2025 6:08 AM EDT [facility] pO2, Arterial 160 >70 mmHg LAB HEMATOLOGY METHOD 05/28/2025 6:08 AM EDT [facility] SO2, Measured, Arterial 98 94 - 98 % LAB HEMATOLOGY METHOD 05/28/2025 6:08 AM EDT [facility] Base Excess, Arterial 2.7 -2.0 - 3.0 mmol/L LAB HEMATOLOGY METHOD 05/28/2025 6:08 AM EDT [facility] Bicarbonate, Calculated, Arterial 29(H) 22 - 26 mmol/L LAB HEMATOLOGY METHOD 05/28/2025 6:08 AM EDT [facility] Hematocrit, Whole Blood 30.8(L) 34.0 - 45.0 % LAB HEMATOLOGY METHOD 05/28/2025 6:08 AM EDT [facility] Sodium, Whole Blood 146(H) 136 - 145 mmol/L LAB HEMATOLOGY METHOD 05/28/2025 6:08 AM EDT [facility] Potassium, Whole Blood 3.6 3.6 - 4.9 mmol/L LAB HEMATOLOGY METHOD 05/28/2025 6:08 AM EDT [facility] Chloride, Whole Blood 106 97 - 107 mmol/L LAB HEMATOLOGY METHOD 05/28/2025 6:08 AM EDT [facility] Glucose, Whole Blood 141(H) 74 - 99 mg/dL LAB HEMATOLOGY METHOD 05/28/2025 6:08 AM EDT [facility] Ionized Calcium, Whole Blood 4.6 4.6 - 5.1 mg/dL LAB HEMATOLOGY METHOD 05/28/2025 6:08 AM EDT [facility] Lactate, Arterial, Whole Blood 1.5 0.5 - 1.6 mmol/L LAB HEMATOLOGY METHOD 05/28/2025 6:08 AM EDT [facility] Blood Arterial blood specimen / Unknown Arterial Puncture / Unknown 05/28/2025 5:58 AM EDT 05/28/2025 6:06 AM EDT us Rosalba Andre SAP PP CONSULTANT LAB BLOOD ORDERABLES Barbara l Result [facility] [address] [place] [address] * Phosphorus (05/28/2025 5:13 AM EDT) Phosphorus, Plasma 4.1 2.5 - 4.5 mg/dL 05/28/2025 5:54 AM EDT [facility] Blood Arterial blood specimen / Unknown Arterial Puncture / Unknown 05/28/2025 5:13 AM EDT 05/28/2025 5:25 AM EDT Rosalba A Thai SAP PP CONSULTANT LAB BLOOD ORDERABLES Barbara l Result Performing Organization Address City/[facility]/ZIP Co de Phone Number [facility] [place] [address] [place] [address] * (ABNORMAL) Magnesium, Plasma (05/28/2025 5:13 AM EDT) Pathologist [facility] Magnesium, Plasma 3.1(H) 1.9 - 2.4 mg/dL 05/28/2025 5:54 AM EDT [facility] Blood Arterial blood specimen / Unknown Arterial Puncture / Unknown 05/28/2025 5:13 AM EDT 05/28/2025 5:25 AM EDT Rosalba Sebastien Thai SAP PP CONSULTANT LAB BLOOD ORDERABLES Barbara l Result Performing Organization Address [facility] [place] [address] * ECG Adult - POD 1 (05/28/2025 4:24 AM EDT) EKG DIAGNOSIS CLASS Normal MUSE ECG Ventricular Rate 67 BPM MUSE ECG Atrial Rate 67 BPM MUSE ECG IA Interval 180 ms MUSE ECG QRSD Interval 82 ms MUSE ECG QT Interval 458 ms MUSE ECG QTC Interval 483 ms MUSE ECG P Arrey 61 degrees MUSE ECG R Arrey 37 degrees MUSE ECG T Wave Arrey 10 degrees MUSE ECG Diagnosis Normal sinus rhythm MUSE ECG Diagnosis MUSE ECG Diagnosis MUSE ECG Diagnosis Confirmed by Tracy Vanegsa ([id number]) on 05/28/2025 11:13:46 PM MUSE ECG 05/28/2025 4:24 AM EDT 05/28/2025 11:13 PM EDT us Jose C Nicholson MD ECG ORDERABLES Final Result [facility] * (ABNORMAL) Blood gas, arterial (05/28/2025 4:08 AM EDT) pH, Arterial 7.38 7.31 - 7.42 LAB HEMATOLOGY METHOD 05/28/2025 4:25 AM EDT [facility] pCO2, Arterial 49(H) 35 - 48 mmHg LAB HEMATOLOGY METHOD 05/28/2025 4:25 AM EDT [facility] pO2, Arterial 185 >70 mmHg LAB HEMATOLOGY METHOD 05/28/2025 4:25 AM EDT [facility] SO2, Measured, Arterial 100(H) 94 - 98 % LAB HEMATOLOGY METHOD 05/28/2025 4:25 AM EDT [facility] Base Excess, Arterial 3.1(H) -2.0 - 3.0 mmol/L LAB HEMATOLOGY METHOD 05/28/2025 4:25 AM EDT [facility] Bicarbonate, Calculated, Arterial 29(H) 22 - 26 mmol/L LAB HEMATOLOGY METHOD 05/28/2025 4:25 AM EDT [facility] Hematocrit, Whole Blood 30.7(L) 34.0 - 45.0 % LAB HEMATOLOGY METHOD 05/28/2025 4:25 AM EDT [facility] Sodium, Whole Blood 146(H) 136 - 145 mmol/L LAB HEMATOLOGY METHOD 05/28/2025 4:25 AM EDT [facility] Potassium, Whole Blood 3.2(L) 3.6 - 4.9 mmol/L LAB HEMATOLOGY METHOD 05/28/2025 4:25 AM EDT [facility] Chloride, Whole Blood 106 97 - 107 mmol/L LAB HEMATOLOGY METHOD 05/28/2025 4:25 AM EDT [facility] Glucose, Whole Blood 147(H) 74 - 99 mg/dL LAB HEMATOLOGY METHOD 05/28/2025 4:25 AM EDT [facility] Ionized Calcium, Whole Blood 4.6 4.6 - 5.1 mg/dL LAB HEMATOLOGY METHOD 05/28/2025 4:25 AM EDT [facility] Lactate, Arterial, Whole Blood 1.1 0.5 - 1.6 mmol/L LAB HEMATOLOGY METHOD 05/28/2025 4:25 AM EDT [facility] Blood Arterial blood specimen / Unknown Arterial Puncture / Unknown 05/28/2025 4:08 AM EDT 05/28/2025 4:24 AM EDT us Rosalba Sebastien Andre SAP PP CONSULTANT LAB BLOOD ORDERABLES Barbara l Result [facility] [address] [place] [address] * (ABNORMAL) Blood gas panel with oximetry, mixed venous (05/28/2025 4:06 AM EDT) pH, Mixed Venous 7.36 7.32 - 7.43 LAB HEMATOLOGY METHOD 05/28/2025 4:25 AM EDT [facility] pCO2, Mixed Venous 49 37 - 52 mmHg LAB HEMATOLOGY METHOD 05/28/2025 4:25 AM EDT [facility] pO2, Mixed Venous 41(H) 25 - 40 mmHg LAB HEMATOLOGY METHOD 05/28/2025 4:25 AM EDT [facility] SO2, Measured, Mixed Venous 75 65 - 80 % LAB HEMATOLOGY METHOD 05/28/2025 4:25 AM EDT [facility] Bicarbonate, Calculated, Mixed Venous 27(H) 22 - 26 mmol/L LAB HEMATOLOGY METHOD 05/28/2025 4:25 AM EDT [facility] Base Excess, Mixed Venous 1.3 -2.0 - 3.0 mmol/L LAB HEMATOLOGY METHOD 05/28/2025 4:25 AM EDT [facility] Hematocrit, Whole Blood 28.1(L) 34.0 - 45.0 % LAB HEMATOLOGY METHOD 05/28/2025 4:25 AM EDT [facility] Sodium, Whole Blood 146(H) 136 - 145 mmol/L LAB HEMATOLOGY METHOD 05/28/2025 4:25 AM EDT [facility] Potassium, Whole Blood 2.9(L) 3.6 - 4.9 mmol/L LAB HEMATOLOGY METHOD 05/28/2025 4:25 AM EDT [facility] Chloride, Whole Blood 109(H) 97 - 107 mmol/L LAB HEMATOLOGY METHOD 05/28/2025 4:25 AM EDT [facility] Ionized Calcium, Whole Blood 4.3(L) 4.6 - 5.1 mg/dL LAB HEMATOLOGY METHOD 05/28/2025 4:25 AM EDT [facility] Glucose, Whole Blood 135(H) 74 - 99 mg/dL LAB HEMATOLOGY METHOD 05/28/2025 4:25 AM EDT [facility] Oxyhemoglobin, Mixed Venous, Whole Blood 73.0(H) 40.0 - 70.0 % LAB HEMATOLOGY METHOD 05/28/2025 4:25 AM EDT [facility] Hemoglobin Reduced, Mixed Venous, Whole Blood 24.4 % LAB HEMATOLOGY METHOD 05/28/2025 4:25 AM EDT [facility] Total Hemoglobin, Mixed Venous, Whole Blood 9.2(L) 11.2 - 15.7 g/dL LAB HEMATOLOGY METHOD 05/28/2025 4:25 AM EDT [facility] Blood Mixed venous blood specimen / Unknown Venipuncture / Unknown 05/28/2025 4:06 AM EDT 05/28/2025 4:23 AM EDT us Jose C Nicholson MD LAB BLOOD ORDERABLES Final Resu lt [facility] [address] [place] [address] * XR Chest 1 View (05/28/2025 3:27 AM EDT) Anatomical Region Laterality Modality Chest Digital Radiogra phy Impressions 05/28/2025 6:29 AM EDT No significant interval change. CRITICAL RESULT: No. COMMUNICATION: Per this written report. Drafted by Les Steele MD on 05/28/2025 6:28 AM Final report signed by Les Steele MD on 05/28/2025 6:29 AM Narrative 05/28/2025 6:29 AM EDT CLINICAL INDICATION: Post-Op Cardiac Surgery TECHNIQUE: XR CHEST 1 VIEW COMPARISON: 05/27/2025. FINDINGS: Hardware stable. Aeration is not significantly changed. No overt pneumothorax. Trace pleural effusions. Procedure Note Les Steele MD - 05/28/2025 CLINICAL INDICATION: Post-Op Cardiac Surgery TECHNIQUE: XR CHEST 1 VIEW COMPARISON: 05/27/2025. FINDINGS: Hardware stable. Aeration is not significantly changed. No overtpneumothorax. Trace pleural effusions. IMPRESSION: No significant interval change. CRITICAL RESULT: No. COMMUNICATION: Per this written report. Drafted by Les Steele MD on 05/28/2025 6:28 AM Final report signed by Les Steele MD on 05/28/2025 6:29 AM Jose C Nicholson MD IMG XR PROCEDURES Final Result * (ABNORMAL) POCT glucose meter (05/28/2025 2:16 AM EDT) Pathologist [facility] POCT Glucose 171(H) 74 - 99 mg/dL 05/28/2025 2:17 AM EDT [facility] Comment:Accuracy of a glucos e result obtained from a capillary whole blood specimen relies upon adequate, non-compromised capillary blood flow. If the capillary glucose result is not consistent with the patient's clinical signs and symptoms, glucose testing should be repeated with either an arterial or venous sample on the glucometer or sent to the main labortory for testing. Comment 05/28/2025 2:17 AM EDT [facility] Review Specialist ID Juhi Copeland 05/28/2025 2:17 AM EDT [facility] Device ID [id number] 05/28/2025 2:17 AM EDT [facility] Specimen Type POC Arterial 05/28/2025 2:17 AM EDT [facility] Blood Arterial blood specimen / Unknown 05/28/2025 2:16 AM EDT 05/28/2025 2:17 AM EDT Jose C Nicholson MD LAB POINT OF CARE TE ST DOCKED DEVICE UNSOLICITED RESULTS Final Result [facility] [address] [place] [address] * (ABNORMAL) Blood gas, arterial (05/28/2025 2:09 AM EDT) pH, Arterial 7.38 7.31 - 7.42 LAB HEMATOLOGY METHOD 05/28/2025 2:24 AM EDT [facility] pCO2, Arterial 48 35 - 48 mmHg LAB HEMATOLOGY METHOD 05/28/2025 2:24 AM EDT [facility] pO2, Arterial 120 >70 mmHg LAB HEMATOLOGY METHOD 05/28/2025 2:24 AM EDT [facility] SO2, Measured, Arterial 99(H) 94 - 98 % LAB HEMATOLOGY METHOD 05/28/2025 2:24 AM EDT [facility] Base Excess, Arterial 2.2 -2.0 - 3.0 mmol/L LAB HEMATOLOGY METHOD 05/28/2025 2:24 AM EDT [facility] Bicarbonate, Calculated, Arterial 28(H) 22 - 26 mmol/L LAB HEMATOLOGY METHOD 05/28/2025 2:24 AM EDT [facility] Hematocrit, Whole Blood 32.5(L) 34.0 - 45.0 % LAB HEMATOLOGY METHOD 05/28/2025 2:24 AM EDT [facility] Sodium, Whole Blood 145 136 - 145 mmol/L LAB HEMATOLOGY METHOD 05/28/2025 2:24 AM EDT [facility] Potassium, Whole Blood 3.4(L) 3.6 - 4.9 mmol/L LAB HEMATOLOGY METHOD 05/28/2025 2:24 AM EDT [facility] Chloride, Whole Blood 106 97 - 107 mmol/L LAB HEMATOLOGY METHOD 05/28/2025 2:24 AM EDT [facility] Glucose, Whole Blood 167(H) 74 - 99 mg/dL LAB HEMATOLOGY METHOD 05/28/2025 2:24 AM EDT [facility] Ionized Calcium, Whole Blood 4.6 4.6 - 5.1 mg/dL LAB HEMATOLOGY METHOD 05/28/2025 2:24 AM EDT [facility] Lactate, Arterial, Whole Blood 1.8(H) 0.5 - 1.6 mmol/L LAB HEMATOLOGY METHOD 05/28/2025 2:24 AM EDT [facility] Blood Arterial blood specimen / Unknown Arterial Puncture / Unknown 05/28/2025 2:09 AM EDT 05/28/2025 2:22 AM EDT us Rosalba Andre APRN LAB BLOOD ORDERABLES Barbara tianna Result [facility] [address] [place] [address] * (ABNORMAL) Basic metabolic panel (05/28/2025 2:09 AM EDT) Glucose, Plasma 168(H) 74 - 99 mg/dL 05/28/2025 2:53 AM EDT [facility] BUN, Plasma 21 8 - 23 mg/dL 05/28/2025 2:53 AM EDT [facility] Creatinine, Plasma 0.72 0.60 - 1.10 mg/dL 05/28/2025 2:53 AM EDT [facility] BUN/Creatinine Ratio 29 05/28/2025 2:53 AM EDT [facility] Sodium, Plasma 144 136 - 145 mmol/L 05/28/2025 2:53 AM EDT [facility] Potassium, Plasma 3.6 3.6 - 4.9 mmol/L 05/28/2025 2:53 AM EDT [facility] Comment:Hemolyzed, result ma y be falsely increased. Chloride, Plasma 105 97 - 107 mmol/L 05/28/2025 2:53 AM EDT [facility] CO2, Plasma 24 22 - 29 mmol/L 05/28/2025 2:53 AM EDT [facility] Anion Gap 15 6 - 16 mmol/L 05/28/2025 2:53 AM EDT [facility] Total Calcium, Plasma 8.5(L) 8.9 - 10.2 mg/dL 05/28/2025 2:53 AM EDT [facility] eGFRcr 89.5 mL/min/1.7 3m*2 05/28/2025 2:53 AM EDT [facility] Comment:Reported eGFRcr in m L/min/1.73m2 is based the CKD-EPI 2020 equation that does not use a race coefficient. Blood Arterial blood specimen / Unknown Arterial Puncture / Unknown 05/28/2025 2:09 AM EDT 05/28/2025 2:22 AM EDT us Jose C Nicholson MD LAB BLOOD ORDERABLES Final Resu lt [facility] [address] [place] [address] * (ABNORMAL) CBC (05/28/2025 2:09 AM EDT) WBC Count 13.88(H) 3.70 - 10.30 10*3/uL LAB HEMATOLOGY METHOD 05/28/2025 2:34 AM EDT [facility] RBC Count 3.57(L) 3.90 - 5.20 10*6/uL LAB HEMATOLOGY METHOD 05/28/2025 2:34 AM EDT [facility] HGB 10.6(L) 11.2 - 15.7 g/dL LAB HEMATOLOGY METHOD 05/28/2025 2:34 AM EDT [facility] HCT 29.7(L) 34.0 - 45.0 % LAB HEMATOLOGY METHOD 05/28/2025 2:34 AM EDT [facility] Platelet Count 172 155 - 369 10*3/uL LAB HEMATOLOGY METHOD 05/28/2025 2:34 AM EDT [facility] MCV 83 79 - 98 fL LAB HEMATOLOGY METHOD 05/28/2025 2:34 AM EDT [facility] MCH 29.7 26.0 - 32.0 pg LAB HEMATOLOGY METHOD 05/28/2025 2:34 AM EDT [facility] MCHC 35.7(H) 30.7 - 35.5 g/dL LAB HEMATOLOGY METHOD 05/28/2025 2:34 AM EDT [facility] RDW 15.6(H) 11.5 - 14.5 % LAB HEMATOLOGY METHOD 05/28/2025 2:34 AM EDT [facility] MPV 10.8 8.8 - 12.5 fL LAB HEMATOLOGY METHOD 05/28/2025 2:34 AM EDT [facility] nRBC 0.0 <=0.0 per 100 WBCs LAB HEMATOLOGY METHOD 05/28/2025 2:34 AM EDT [facility] Blood Arterial blood specimen / Unknown Arterial Puncture / Unknown 05/28/2025 2:09 AM EDT 05/28/2025 2:23 AM EDT us Jose C Nicholson MD LAB BLOOD ORDERABLES Final Resu lt [facility] [address] [place] [address] * (ABNORMAL) Blood gas, arterial (05/28/2025 12:14 AM EDT) pH, Arterial 7.39 7.31 - 7.42 LAB HEMATOLOGY METHOD 05/28/2025 12:38 AM EDT [facility] pCO2, Arterial 45 35 - 48 mmHg LAB HEMATOLOGY METHOD 05/28/2025 12:38 AM EDT [facility] pO2, Arterial 72 >70 mmHg LAB HEMATOLOGY METHOD 05/28/2025 12:38 AM EDT [facility] SO2, Measured, Arterial 95 94 - 98 % LAB HEMATOLOGY METHOD 05/28/2025 12:38 AM EDT [facility] Base Excess, Arterial 1.8 -2.0 - 3.0 mmol/L LAB HEMATOLOGY METHOD 05/28/2025 12:38 AM EDT [facility] Bicarbonate, Calculated, Arterial 27(H) 22 - 26 mmol/L LAB HEMATOLOGY METHOD 05/28/2025 12:38 AM EDT [facility] Hematocrit, Whole Blood 32.7(L) 34.0 - 45.0 % LAB HEMATOLOGY METHOD 05/28/2025 12:38 AM EDT [facility] Sodium, Whole Blood 144 136 - 145 mmol/L LAB HEMATOLOGY METHOD 05/28/2025 12:38 AM EDT [facility] Potassium, Whole Blood 3.8 3.6 - 4.9 mmol/L LAB HEMATOLOGY METHOD 05/28/2025 12:38 AM EDT [facility] Chloride, Whole Blood 105 97 - 107 mmol/L LAB HEMATOLOGY METHOD 05/28/2025 12:38 AM EDT [facility] Glucose, Whole Blood 192(H) 74 - 99 mg/dL LAB HEMATOLOGY METHOD 05/28/2025 12:38 AM EDT [facility] Ionized Calcium, Whole Blood 4.7 4.6 - 5.1 mg/dL LAB HEMATOLOGY METHOD 05/28/2025 12:38 AM EDT [facility] Lactate, Arterial, Whole Blood 2.3(H) 0.5 - 1.6 mmol/L LAB HEMATOLOGY METHOD 05/28/2025 12:38 AM EDT [facility] Blood Arterial blood specimen / Unknown Arterial Puncture / Unknown 05/28/2025 12:14 AM EDT 05/28/2025 12:35 AM EDT us Rosalba Andre APRN LAB BLOOD ORDERABLES Barbara l Result [facility] [address] [place] [address] * [place] CRITICAL CARE, E/M 30-74 MINUTES (05/27/2025 11:43 PM EDT) Narrative Rosalba Andre APRN - 05/27/2025 11:43 PM EDT Rosalba Andre APRN 05/28/2025 1:42 AM Critical Care Performed by: Rosalba Andre APRN Authorized by: Rosalba Andre APRN Critical care provider statement: Critical care time (minutes): 73 Critical care time was exclusive of: Separately billable procedures and treating other patients Critical care was time spent personally by me on the following activities: Development of treatment plan with patient or surrogate, discussions with consultants, evaluation of patient's response to treatment, examination of patient, discussions with primary provider, review of old charts and ventilator management Comments: The patient is critically ill with: s/p aortic arch replacement, ascending aortic replacement, COPD, HTN. They require complex decision making. The patient was seen on rounds with critical care physician, Dr. Jaime De Paz DO and they are in agreement with the plan of care. Pharmacy, respiratory and nursing services were present on rounds. us Rosalba Andre APRN IN CLINIC/BEDSIDE ORDERAB LES Final Result * (ABNORMAL) POCT glucose meter (05/27/2025 10:21 PM EDT) POCT Glucose 184(H) 74 - 99 mg/dL 05/27/2025 10:22 PM EDT [facility] Comment:Accuracy of a glucos e result obtained from a capillary whole blood specimen relies upon adequate, non-compromised capillary blood flow. If the capillary glucose result is not consistent with the patient's clinical signs and symptoms, glucose testing should be repeated with either an arterial or venous sample on the glucometer or sent to the main labortory for testing. Comment 05/27/2025 10:22 PM EDT [facility] Review Specialist ID Juhi Copeland 05/27/2025 10:22 PM EDT [facility] Device ID [id number] 05/27/2025 10:22 PM EDT [facility] Specimen Type POC Arterial 05/27/2025 10:22 PM EDT [facility] Blood Arterial blood specimen / Unknown 05/27/2025 10:21 PM EDT 05/27/2025 10:22 PM EDT us Jose C Nicholson MD LAB POINT OF CARE TE ST DOCKED DEVICE UNSOLICITED RESULTS Final Result [facility] [address] [place] [address] * (ABNORMAL) Blood gas, arterial (05/27/2025 10:17 PM EDT) pH, Arterial 7.40 7.31 - 7.42 LAB HEMATOLOGY METHOD 05/27/2025 10:27 PM EDT [facility] pCO2, Arterial 46 35 - 48 mmHg LAB HEMATOLOGY METHOD 05/27/2025 10:27 PM EDT [facility] pO2, Arterial 88 >70 mmHg LAB HEMATOLOGY METHOD 05/27/2025 10:27 PM EDT [facility] SO2, Measured, Arterial 98 94 - 98 % LAB HEMATOLOGY METHOD 05/27/2025 10:27 PM EDT [facility] Base Excess, Arterial 3.1(H) -2.0 - 3.0 mmol/L LAB HEMATOLOGY METHOD 05/27/2025 10:27 PM EDT [facility] Bicarbonate, Calculated, Arterial 29(H) 22 - 26 mmol/L LAB HEMATOLOGY METHOD 05/27/2025 10:27 PM EDT [facility] Hematocrit, Whole Blood 35.1 34.0 - 45.0 % LAB HEMATOLOGY METHOD 05/27/2025 10:27 PM EDT [facility] Sodium, Whole Blood 145 136 - 145 mmol/L LAB HEMATOLOGY METHOD 05/27/2025 10:27 PM EDT [facility] Potassium, Whole Blood 3.0(L) 3.6 - 4.9 mmol/L LAB HEMATOLOGY METHOD 05/27/2025 10:27 PM EDT [facility] Chloride, Whole Blood 103 97 - 107 mmol/L LAB HEMATOLOGY METHOD 05/27/2025 10:27 PM EDT [facility] Glucose, Whole Blood 188(H) 74 - 99 mg/dL LAB HEMATOLOGY METHOD 05/27/2025 10:27 PM EDT [facility] Ionized Calcium, Whole Blood 4.6 4.6 - 5.1 mg/dL LAB HEMATOLOGY METHOD 05/27/2025 10:27 PM EDT [facility] Lactate, Arterial, Whole Blood 2.5(H) 0.5 - 1.6 mmol/L LAB HEMATOLOGY METHOD 05/27/2025 10:27 PM EDT [facility] Blood Arterial blood specimen / Unknown Arterial Puncture / Unknown 05/27/2025 10:17 PM EDT 05/27/2025 10:25 PM EDT us Rosalba Andre APRN LAB BLOOD ORDERABLES Barbara l Result [facility] [address] [place] [address] * (ABNORMAL) Potassium, Plasma (05/27/2025 10:16 PM EDT) Potassium, Plasma 3.3(L) 3.6 - 4.9 mmol/L 05/27/2025 10:47 PM EDT [facility] Comment:Hemolyzed, result ma y be falsely increased. Blood Arterial blood specimen / Unknown Arterial Puncture / Unknown 05/27/2025 10:16 PM EDT 05/27/2025 10:25 PM EDT us Jose C Nicholson MD LAB BLOOD ORDERABLES Final Resu lt [facility] [address] [place] [address] * (ABNORMAL) Hematocrit (05/27/2025 10:16 PM EDT) HCT 33.3(L) 34.0 - 45.0 % LAB HEMATOLOGY METHOD 05/27/2025 10:32 PM EDT [facility] Blood Arterial blood specimen / Unknown Arterial Puncture / Unknown 05/27/2025 10:16 PM EDT 05/27/2025 10:25 PM EDT us Jose C Nicholson MD LAB BLOOD ORDERABLES Final Resu lt Performing Organization Address [facility] Co de Phone Number [facility] [address] [place] [address] * Hemoglobin (05/27/2025 10:16 PM EDT) HGB 11.8 11.2 - 15.7 g/dL LAB HEMATOLOGY METHOD 05/27/2025 10:32 PM EDT [facility] Blood Arterial blood specimen / Unknown Arterial Puncture / Unknown 05/27/2025 10:16 PM EDT 05/27/2025 10:25 PM EDT us Jose C Nicholson MD LAB BLOOD ORDERABLES Final Resu lt Performing Organization Address [facility] [place] [address] * XR Abdomen 1 View (05/27/2025 9:34 PM EDT) Anatomical Region Laterality Modality Body Digital Radiogra phy Impressions 05/27/2025 9:36 PM EDT The tip of the gastric tube is within the proximal stomach CRITICAL RESULT: No. COMMUNICATION: Per this written report. Drafted by Pa Du MD on 05/27/2025 9:36 PM Final report signed by Pa Du MD on 05/27/2025 9:36 PM Narrative 05/27/2025 9:36 PM EDT CLINICAL INDICATION: OG TECHNIQUE: Supine radiograph of the abdomen. COMPARISON: None. FINDINGS: Limited [id number] abdominal radiograph for the purpose of locating tube position. The tip of the nasogastric tube is within the proximal stomach. Procedure Note Pa Du MD - 05/27/2025 CLINICAL INDICATION: OG TECHNIQUE: Supine radiograph of the abdomen. COMPARISON: None. FINDINGS: Limited [id number] abdominal radiograph for the purpose of locatingtube position. The tip of the nasogastric tube is within the proximal stomach. IMPRESSION: The tip of the gastric tube is within the proximal stomach CRITICAL RESULT: No. COMMUNICATION: Per this written report. Drafted by Pa Du MD on 05/27/2025 9:36 PM Final report signed by Pa Du MD on 05/27/2025 9:36 PM us Rosalba Andre SAP PP CONSULTANT IMG XR PROCEDURES Final R esult * (ABNORMAL) POCT glucose meter (05/27/2025 9:23 PM EDT) Pathologist [facility] POCT Glucose 165(H) 74 - 99 mg/dL 05/27/2025 9:26 PM EDT [facility] Comment:Accuracy of a glucos e result obtained from a capillary whole blood specimen relies upon adequate, non-compromised capillary blood flow. If the capillary glucose result is not consistent with the patient's clinical signs and symptoms, glucose testing should be repeated with either an arterial or venous sample on the glucometer or sent to the main labortory for testing. Comment 05/27/2025 9:26 PM EDT [facility] Review Specialist ID Juhi Copeland 05/27/2025 9:26 PM EDT [facility] Device ID [id number] 05/27/2025 9:26 PM EDT [facility] Specimen Type POC Arterial 05/27/2025 9:26 PM EDT [facility] Blood Arterial blood specimen / Unknown 05/27/2025 9:23 PM EDT 05/27/2025 9:26 PM EDT Jose C Nicholson MD LAB POINT OF CARE TE ST DOCKED DEVICE UNSOLICITED RESULTS Final Result [facility] [address] [place] [id number] * (ABNORMAL) Blood gas panel with oximetry, mixed venous (05/27/2025 7:55 PM EDT) Pathologist [facility] pH, Mixed Venous 7.37 7.32 - 7.43 LAB HEMATOLOGY METHOD 05/27/2025 8:05 PM EDT [facility] pCO2, Mixed Venous 51 37 - 52 mmHg LAB HEMATOLOGY METHOD 05/27/2025 8:05 PM EDT [facility] pO2, Mixed Venous 39 25 - 40 mmHg LAB HEMATOLOGY METHOD 05/27/2025 8:05 PM EDT [facility] SO2, Measured, Mixed Venous 73 65 - 80 % LAB HEMATOLOGY METHOD 05/27/2025 8:05 PM EDT [facility] Bicarbonate, Calculated, Mixed Venous 30(H) 22 - 26 mmol/L LAB HEMATOLOGY METHOD 05/27/2025 8:05 PM EDT [facility] Base Excess, Mixed Venous 3.8(H) -2.0 - 3.0 mmol/L LAB HEMATOLOGY METHOD 05/27/2025 8:05 PM EDT [facility] Hematocrit, Whole Blood 31.4(L) 34.0 - 45.0 % LAB HEMATOLOGY METHOD 05/27/2025 8:05 PM EDT [facility] Sodium, Whole Blood 146(H) 136 - 145 mmol/L LAB HEMATOLOGY METHOD 05/27/2025 8:05 PM EDT [facility] Potassium, Whole Blood 3.0(L) 3.6 - 4.9 mmol/L LAB HEMATOLOGY METHOD 05/27/2025 8:05 PM EDT [facility] Chloride, Whole Blood 104 97 - 107 mmol/L LAB HEMATOLOGY METHOD 05/27/2025 8:05 PM EDT [facility] Ionized Calcium, Whole Blood 4.7 4.6 - 5.1 mg/dL LAB HEMATOLOGY METHOD 05/27/2025 8:05 PM EDT [facility] Glucose, Whole Blood 135(H) 74 - 99 mg/dL LAB HEMATOLOGY METHOD 05/27/2025 8:05 PM EDT [facility] Oxyhemoglobin, Mixed Venous, Whole Blood 69.5 40.0 - 70.0 % LAB HEMATOLOGY METHOD 05/27/2025 8:05 PM EDT [facility] Hemoglobin Reduced, Mixed Venous, Whole Blood 25.3 % LAB HEMATOLOGY METHOD 05/27/2025 8:05 PM EDT [facility] Total Hemoglobin, Mixed Venous, Whole Blood 10.2(L) 11.2 - 15.7 g/dL LAB HEMATOLOGY METHOD 05/27/2025 8:05 PM EDT [facility] Blood Mixed venous blood specimen / Unknown Venipuncture / Unknown 05/27/2025 7:55 PM EDT 05/27/2025 8:04 PM EDT us Jose C Nicholson MD LAB BLOOD ORDERABLES Final Resu lt [facility] [address] [place] [address] * XR Abdomen 1 View (Adult Inpatients per policy) (05/27/2025 7:06 PM EDT) Anatomical Region Laterality Modality Body Digital Radiogra phy Impressions 05/27/2025 7:24 PM EDT The gastric tube tip overlies distal esophagus. Other lines and catheters as above. Persistent left greater than right effusions opacities and left effusion CRITICAL RESULT: No COMMUNICATION: Per this written report. Drafted by Pa Du MD on 05/27/2025 7:22 PM Final report signed by Pa Du MD on 05/27/2025 7:24 PM Narrative 05/27/2025 7:24 PM EDT CLINICAL INDICATION: Post-Op Cardiac Surgery TECHNIQUE: XR CHEST 1 VIEW, XR ABDOMEN 1 VIEW COMPARISON: Same day radiograph at 5:50 PM FINDINGS: The cardiomediastinal silhouette remains enlarged. Stable lines and catheters. Unchanged left effusion and left greater than right opacities. The gastric tube tip overlies distal esophagus with the sidehole overlying the mid mediastinum. Procedure Note Pa Du MD - 05/27/2025 CLINICAL INDICATION: Post-Op Cardiac Surgery TECHNIQUE: XR CHEST 1 VIEW, XR ABDOMEN 1 VIEW COMPARISON: Same day radiograph at 5:50 PM FINDINGS: The cardiomediastinal silhouette remains enlarged. Stable lines andcatheters. Unchanged left effusion and left greater than right opacities.The gastric tube tip overlies distal esophagus with the sidehole overlyingthe mid mediastinum. IMPRESSION: The gastric tube tip overlies distal esophagus. Other lines and cathetersas above. Persistent left greater than right effusions opacities and left effusion CRITICAL RESULT: No COMMUNICATION: Per this written report. Drafted by Pa Du MD on 05/27/2025 7:22 PM Final report signed by Pa Du MD on 05/27/2025 7:24 PM Jose C Nicholson MD IMG XR PROCEDURES Final Result * XR Chest 1 View (05/27/2025 7:06 PM EDT) Anatomical Region Laterality Modality Chest Digital Radiogra phy Impressions 05/27/2025 7:24 PM EDT The gastric tube tip overlies distal esophagus. Other lines and catheters as above. Persistent left greater than right effusions opacities and left effusion CRITICAL RESULT: No COMMUNICATION: Per this written report. Drafted by Pa Du MD on 05/27/2025 7:22 PM Final report signed by Pa Du MD on 05/27/2025 7:24 PM Narrative 05/27/2025 7:24 PM EDT CLINICAL INDICATION: Post-Op Cardiac Surgery TECHNIQUE: XR CHEST 1 VIEW, XR ABDOMEN 1 VIEW COMPARISON: Same day radiograph at 5:50 PM FINDINGS: The cardiomediastinal silhouette remains enlarged. Stable lines and catheters. Unchanged left effusion and left greater than right opacities. The gastric tube tip overlies distal esophagus with the sidehole overlying the mid mediastinum. Procedure Note Pa Du MD - 05/27/2025 CLINICAL INDICATION: Post-Op Cardiac Surgery TECHNIQUE: XR CHEST 1 VIEW, XR ABDOMEN 1 VIEW COMPARISON: Same day radiograph at 5:50 PM FINDINGS: The cardiomediastinal silhouette remains enlarged. Stable lines andcatheters. Unchanged left effusion and left greater than right opacities.The gastric tube tip overlies distal esophagus with the sidehole overlyingthe mid mediastinum. IMPRESSION: The gastric tube tip overlies distal esophagus. Other lines and cathetersas above. Persistent left greater than right effusions opacities and left effusion CRITICAL RESULT: No COMMUNICATION: Per this written report. Drafted by Pa Du MD on 05/27/2025 7:22 PM Final report signed by Pa Du MD on 05/27/2025 7:24 PM Jose C Nicholson MD IMG XR PROCEDURES Final Result * (ABNORMAL) Blood gas, arterial (05/27/2025 6:49 PM EDT) pH, Arterial 7.38 7.31 - 7.42 LAB HEMATOLOGY METHOD 05/27/2025 6:54 PM EDT [facility] pCO2, Arterial 47 35 - 48 mmHg LAB HEMATOLOGY METHOD 05/27/2025 6:54 PM EDT [facility] pO2, Arterial 163 >70 mmHg LAB HEMATOLOGY METHOD 05/27/2025 6:54 PM EDT [facility] SO2, Measured, Arterial 99(H) 94 - 98 % LAB HEMATOLOGY METHOD 05/27/2025 6:54 PM EDT [facility] Base Excess, Arterial 1.8 -2.0 - 3.0 mmol/L LAB HEMATOLOGY METHOD 05/27/2025 6:54 PM EDT [facility] Bicarbonate, Calculated, Arterial 28(H) 22 - 26 mmol/L LAB HEMATOLOGY METHOD 05/27/2025 6:54 PM EDT [facility] Hematocrit, Whole Blood 34.3 34.0 - 45.0 % LAB HEMATOLOGY METHOD 05/27/2025 6:54 PM EDT [facility] Sodium, Whole Blood 145 136 - 145 mmol/L LAB HEMATOLOGY METHOD 05/27/2025 6:54 PM EDT [facility] Potassium, Whole Blood 3.3(L) 3.6 - 4.9 mmol/L LAB HEMATOLOGY METHOD 05/27/2025 6:54 PM EDT [facility] Chloride, Whole Blood 103 97 - 107 mmol/L LAB HEMATOLOGY METHOD 05/27/2025 6:54 PM EDT [facility] Glucose, Whole Blood 126(H) 74 - 99 mg/dL LAB HEMATOLOGY METHOD 05/27/2025 6:54 PM EDT [facility] Ionized Calcium, Whole Blood 4.8 4.6 - 5.1 mg/dL LAB HEMATOLOGY METHOD 05/27/2025 6:54 PM EDT [facility] Lactate, Arterial, Whole Blood 3.5(H) 0.5 - 1.6 mmol/L LAB HEMATOLOGY METHOD 05/27/2025 6:54 PM EDT [facility] Blood Arterial blood specimen / Unknown Arterial Puncture / Unknown 05/27/2025 6:49 PM EDT 05/27/2025 6:53 PM EDT Jose C Nicholson MD LAB BLOOD ORDERABLES Final Resu lt Performing Organization Address [facility] [place] [address] * Zaria auris Surveillance by PCR (05/27/2025 6:48 PM EDT) Zaria auris PCR Result Not Detected Not Detected 05/28/2025 3:[address] [facility] Swab (Axilla and Groin) Non-blood Collection / Unknown 05/27/2025 6:48 PM EDT 05/27/2025 7:07 PM EDT Narrative [facility] - 05/28/2025 3:04 PM EDT This PCR assay was developed and its performance characteristics determined by [facility] as appropriate for clinical purposes. This assay has not been cleared or approved by the FDA, but is performed in a CLIA regulated laboratory that is qualified to perform high-complexity testing. Jose C Nicholson MD LAB MICROBIOLOGY - GENERAL ORDE RABLES Final Result Performing Organization Address [facility] [place] [address] * Multi Drug Resistance Test (05/27/2025 6:48 PM EDT) Pathologist [facility] Culture No growth at day 1 05/28/2025 9:[address] [facility] Swab (Nares and Frances Rectal) Non-blood Collection / Unknown 05/27/2025 6:48 PM EDT 05/27/2025 7:07 PM EDT Narrative [facility] - 05/28/2025 9:07 PM EDT This test was developed and its performance characteristics determined by the [facility]. Although the media is FDA-approved, it is not FDA-approved for all specimen types submitted. The FDA has determined that such clearance or approval is not necessary. This test is used for surveillance purposes. It should not be regarded as investigational or for research. The [facility] is certified under the Clinical Laboratory Improvement Amendments of 1988 (CLIA-88) as qualified to perform high complexity clinical laboratory testing. Jose C Nicholson MD LAB MICROBIOLOGY - GENERAL ORDE RABLES Final Result Performing Organization Address [facility]/ZIP Co de Phone Number [facility] [place] [address] [place] [address] * APTT (05/27/2025 6:48 PM EDT) aPTT 28 25 - 35 sec LAB COAGULATION METHOD 05/27/2025 7:42 PM EDT [facility] Blood Venous blood specimen / Unknown Venipuncture / Unknown 05/27/2025 6:48 PM EDT 05/27/2025 6:54 PM EDT Jose C Nicholson MD LAB BLOOD ORDERABLES Final Resu lt Performing Organization Address [facility] Co de Phone Number [facility] [address] [place] [address] * (ABNORMAL) Protime-INR (05/27/2025 6:48 PM EDT) Prothrombin Time 10.6(L) 12.0 - 14.3 sec LAB COAGULATION METHOD 05/27/2025 7:47 PM EDT [facility] INR 0.7(L) 0.9 - 1.1 LAB COAGULATION METHOD 05/27/2025 7:47 PM EDT [facility] Blood Venous blood specimen / Unknown Venipuncture / Unknown 05/27/2025 6:48 PM EDT 05/27/2025 6:54 PM EDT Narrative [facility] - 05/27/2025 7:47 PM EDT OPTIMAL INR RANGES FOR PATIENT ON ORAL ANTICOAGULANT THERAPY Prevention of venous thromboembolism INR 2.0 to 3.0 In patients with heart disease: Atrial fibrillation INR 2.0 to 3.0 Valvular heart disease INR 2.0 to 3.0 Tissue heart valves INR 2.0 to 3.0 Mechanical prosthetic valves INR 2.5 to 3.5 Prevention of recurrent MD INR 2.5 to 3.5 Jose C Nicholson MD LAB BLOOD ORDERABLES Final Resu lt Performing Organization Address [facility]/ZIP Co de Phone Number [facility] [address] [place] [address] * (ABNORMAL) Phosphorus (05/27/2025 6:48 PM EDT) Phosphorus, Plasma 2.1(L) 2.5 - 4.5 mg/dL 05/27/2025 7:26 PM EDT [facility] Blood Venous blood specimen / Unknown Venipuncture / Unknown 05/27/2025 6:48 PM EDT 05/27/2025 6:54 PM EDT Jose C Nicholson MD LAB BLOOD ORDERABLES Final Resu lt Performing Organization Address [facility]/ZIP Co de Phone Number [facility] [address] [place] [address] * (ABNORMAL) Magnesium (05/27/2025 6:48 PM EDT) Magnesium, Plasma 3.7(H) 1.9 - 2.4 mg/dL 05/27/2025 7:26 PM EDT [facility] Blood Venous blood specimen / Unknown Venipuncture / Unknown 05/27/2025 6:48 PM EDT 05/27/2025 6:54 PM EDT Jose C Nicholson MD LAB BLOOD ORDERABLES Final Resu lt [facility] [address] [place] [address] * (ABNORMAL) Basic metabolic panel (05/27/2025 6:48 PM EDT) Glucose, Plasma 127(H) 74 - 99 mg/dL 05/27/2025 7:26 PM EDT [facility] BUN, Plasma 19 8 - 23 mg/dL 05/27/2025 7:26 PM EDT [facility] Creatinine, Plasma 0.75 0.60 - 1.10 mg/dL 05/27/2025 7:26 PM EDT [facility] BUN/Creatinine Ratio 25 05/27/2025 7:26 PM EDT [facility] Sodium, Plasma 144 136 - 145 mmol/L 05/27/2025 7:26 PM EDT [facility] Potassium, Plasma 3.5(L) 3.6 - 4.9 mmol/L 05/27/2025 7:26 PM EDT [facility] Comment:Hemolyzed, result ma y be falsely increased. Chloride, Plasma 104 97 - 107 mmol/L 05/27/2025 7:26 PM EDT [facility] CO2, Plasma 24 22 - 29 mmol/L 05/27/2025 7:26 PM EDT [facility] Anion Gap 16 6 - 16 mmol/L 05/27/2025 7:26 PM EDT [facility] Total Calcium, Plasma 9.5 8.9 - 10.2 mg/dL 05/27/2025 7:26 PM EDT [facility] eGFRcr 85.2 mL/min/1.7 3m*2 05/27/2025 7:26 PM EDT [facility] Comment:Reported eGFRcr in m L/min/1.73m2 is based the CKD-EPI 2020 equation that does not use a race coefficient. Blood Venous blood specimen / Unknown Venipuncture / Unknown 05/27/2025 6:48 PM EDT 05/27/2025 6:54 PM EDT us Jose C Nicholson MD LAB BLOOD ORDERABLES Final Resu lt [facility] [address] [place] [address] * (ABNORMAL) CBC (05/27/2025 6:48 PM EDT) WBC Count 12.29(H) 3.70 - 10.30 10*3/uL LAB HEMATOLOGY METHOD 05/27/2025 7:01 PM EDT [facility] RBC Count 3.91 3.90 - 5.20 10*6/uL LAB HEMATOLOGY METHOD 05/27/2025 7:01 PM EDT [facility] HGB 11.5 11.2 - 15.7 g/dL LAB HEMATOLOGY METHOD 05/27/2025 7:01 PM EDT [facility] HCT 32.9(L) 34.0 - 45.0 % LAB HEMATOLOGY METHOD 05/27/2025 7:01 PM EDT [facility] Platelet Count 186 155 - 369 10*3/uL LAB HEMATOLOGY METHOD 05/27/2025 7:01 PM EDT [facility] MCV 84 79 - 98 fL LAB HEMATOLOGY METHOD 05/27/2025 7:01 PM EDT [facility] MCH 29.4 26.0 - 32.0 pg LAB HEMATOLOGY METHOD 05/27/2025 7:01 PM EDT [facility] MCHC 35.0 30.7 - 35.5 g/dL LAB HEMATOLOGY METHOD 05/27/2025 7:01 PM EDT [facility] RDW 14.7(H) 11.5 - 14.5 % LAB HEMATOLOGY METHOD 05/27/2025 7:01 PM EDT [facility] MPV 10.5 8.8 - 12.5 fL LAB HEMATOLOGY METHOD 05/27/2025 7:01 PM EDT [facility] nRBC 0.0 <=0.0 per 100 WBCs LAB HEMATOLOGY METHOD 05/27/2025 7:01 PM EDT [facility] Blood Venous blood specimen / Unknown Venipuncture / Unknown 05/27/2025 6:48 PM EDT 05/27/2025 6:54 PM EDT us Jose C Nicholson MD LAB BLOOD ORDERABLES Final Resu lt [facility] [address] [place] [address] * ECG Adult - Upon Admissoin to CVICU (05/27/2025 6:38 PM EDT) EKG DIAGNOSIS CLASS Normal MUSE ECG Ventricular Rate 71 BPM MUSE ECG Atrial Rate 71 BPM MUSE ECG IA Interval 178 ms MUSE ECG QRSD Interval 86 ms MUSE ECG QT Interval 426 ms MUSE ECG QTC Interval 462 ms MUSE ECG P Arrey 41 degrees MUSE ECG R Arrey 29 degrees MUSE ECG T Wave Arrey 21 degrees MUSE ECG Diagnosis Normal sinus rhythm MUSE ECG Diagnosis MUSE ECG Diagnosis MUSE ECG Diagnosis Confirmed by Tracy Vanegas ([id number]) on 05/28/2025 1:36:38 PM MUSE ECG 05/27/2025 6:38 PM EDT 05/28/2025 1:36 PM EDT us Jose C Nicholson MD ECG ORDERABLES Final Result [facility]USE ECG * XR Chest 1 View (05/27/2025 6:07 PM EDT) Anatomical Region Laterality Modality Chest Digital Radiogra phy Impressions 05/27/2025 6:09 PM EDT No suspicious retained metallic instrument CRITICAL RESULT: No. COMMUNICATION: These findings were discussed via phone with operating room nurse on 05/27/2025 6:09 PM by Pa Du MD with acknowledgment of the results. Drafted by Pa Du MD on 05/27/2025 6:07 PM Final report signed by Pa Du MD on 05/27/2025 6:09 PM Narrative 05/27/2025 6:09 PM EDT CLINICAL INDICATION: missing instrument in surgery TECHNIQUE: XR CHEST 1 VIEW COMPARISON: 05/14/2025 FINDINGS: Right IJ [place] catheter tip overlies right pulmonary artery, bilateral chest tubes, mediastinal drain, median sternotomy wires and multiple clips. The mediastinal silhouette is markedly enlarged. Left pleural effusion. Increased vascular congestion. Left basilar opacity. No other suspicious retained metallic foreign body in particular the metallic instrument is identified. Procedure Note Pa Du MD - 05/27/2025 CLINICAL INDICATION: missing instrument in surgery TECHNIQUE: XR CHEST 1 VIEW COMPARISON: 05/14/2025 FINDINGS: Right IJ [place] catheter tip overlies right pulmonary artery, bilateralchest tubes, mediastinal drain, median sternotomy wires and multipleclips. The mediastinal silhouette is markedly enlarged. Left pleuraleffusion. Increased vascular congestion. Left basilar opacity. No othersuspicious retained metallic foreign body in particular the metallicinstrument is identified. IMPRESSION: No suspicious retained metallic instrument CRITICAL RESULT: No. COMMUNICATION: These findings were discussed via phone with operating room nurse on05/27/2025 6:09 PM by Pa Du MD with acknowledgment of the results. Drafted by Pa Du MD on 05/27/2025 6:07 PM Final report signed by Pa uD MD on 05/27/2025 6:09 PM Jose C Nicholson MD IMG XR PROCEDURES Final Result * (ABNORMAL) POCT arterial blood gas gem (05/27/2025 5:42 PM EDT) pH, Arterial 7.38 7.31 - 7.42 05/30/2025 10:56 AM EDT [facility] pCO2, Arterial 41 35 - 48 mm Hg 05/30/2025 10:56 AM EDT [facility] pO2, Arterial 113 >70 mm Hg 05/30/2025 10:56 AM EDT [facility] SO2, Arterial 98 94 - 98 % 05/30/2025 10:56 AM EDT [facility] Base Excess, Arterial -0.8 -2 - 3 mmol/L 05/30/2025 10:56 AM EDT [facility] HCO3, Arterial 24.3 22 - 26 mmol/L 05/30/2025 10:56 AM EDT [facility] Total Hemoglobin, Arterial, Whole Blood 9.0(L) 11.2 - 15.7 g/dL 05/30/2025 10:56 AM EDT [facility] Hematocrit, Arterial 27.0(L) 34.0 - 45.0 % 05/30/2025 10:56 AM EDT [facility] Sodium, Arterial 142 136 - 145 mmol/L 05/30/2025 10:56 AM EDT [facility] Potassium, Arterial 3.7 3.6 - 4.9 mmol/L 05/30/2025 10:56 AM EDT [facility] Chloride, Whole Blood 107 97 - 107 mmol/L 05/30/2025 10:56 AM EDT [facility] Glucose, Arterial 144(H) 74 - 99 mg/dL 05/30/2025 10:56 AM EDT [facility] Ionized Calcium, Arterial 4.3(L) 4.6 - 5.1 mg/dL 05/30/2025 10:56 AM [facility]T [facility] Lactate, Arterial 4.0(H) 0.5 - 1.6 mmol/L 05/30/2025 10:56 AM [facility]T [facility] Body Temperature 37.0 Celsius 05/30/2025 10:56 AM EDT [facility] pH, Temp Corrected, Arterial 7.38 7.31 - 7.42 05/30/2025 10:56 AM [facility]T [facility] pCO2, Temp Corrected, Arterial 41 35 - 48 mm Hg 05/30/2025 10:56 AM EDT [facility] pO2, Temp Corrected, Arterial 113 >70 mm Hg 05/30/2025 10:56 AM EDT [facility] Review Specialist ID [place] Chris 05/30/2025 10:56 AM [facility]T [facility] Blood, Arterial Whole blood specimen / Unknown 05/27/2025 5:42 PM EDT 05/30/2025 10:56 AM EDT us Jose C Nicholson MD LAB POINT OF CARE TE ST DOCKED DEVICE UNSOLICITED RESULTS Final Result Performing Organization Address City/State/[facility] Co de Phone Number [facility] [address] [place] [address] * Transfuse fresh frozen plasma (05/27/2025 5:18 PM EDT) Miguel Ángel Malave MD BLOOD TRANSFUSION ORDERABLE S Final Result * Transfuse RBC (05/27/2025 4:51 PM EDT) Miguel Ángel Malave MD BLOOD TRANSFUSION ORDERABLE S Final Result * (ABNORMAL) POCT arterial blood gas gem (05/27/2025 4:48 PM EDT) pH, Arterial 7.37 7.31 - 7.42 05/30/2025 11:46 AM [facility]T [facility] pCO2, Arterial 39 35 - 48 mm Hg 05/30/2025 11:46 AM EDT [facility] pO2, Arterial 246 >70 mm Hg 05/30/2025 11:46 AM [facility]T [facility] SO2, Arterial 99(H) 94 - 98 % 05/30/2025 11:46 AM T [facility] Base Excess, Arterial -2.5(L) -2 - 3 mmol/L 05/30/2025 11:46 AM T [facility] HCO3, Arterial 22.5 22 - 26 mmol/L 05/30/2025 11:46 AM T [facility] Total Hemoglobin, Arterial, Whole Blood <6.0(LL) 11.2 - 15.7 g/dL 05/30/2025 11:46 AM [facility] Sodium, Arterial 141 136 - 145 mmol/L 05/30/2025 11:46 AM [facility] Potassium, Arterial 4.3 3.6 - 4.9 mmol/L 05/30/2025 11:46 AM T [facility] Chloride, Whole Blood 103 97 - 107 mmol/L 05/30/2025 11:46 AM [facility] Glucose, Arterial 193(H) 74 - 99 mg/dL 05/30/2025 11:46 AM [facility] Ionized Calcium, Arterial 4.5(L) 4.6 - 5.1 mg/dL 05/30/2025 11:46 AM [facility] Lactate, Arterial 5.0(H) 0.5 - 1.6 mmol/L 05/30/2025 11:46 AM [facility] Body Temperature 37.0 Celsius 05/30/2025 11:46 AM [facility] pH, Temp Corrected, Arterial 7.37 7.31 - 7.42 05/30/2025 11:46 AM [facility] pCO2, Temp Corrected, Arterial 39 35 - 48 mm Hg 05/30/2025 11:46 AM [facility] pO2, Temp Corrected, Arterial 246 >70 mm Hg 05/30/2025 11:46 AM [facility] Review Specialist ID Belg[place] Chris 05/30/2025 11:46 AM [facility] Blood, Arterial Whole blood specimen / Unknown 05/27/2025 4:48 PM EDT 05/30/2025 11:46 AM EDT Jose C Nicholson MD LAB POINT OF CARE TE ST DOCKED DEVICE UNSOLICITED RESULTS Final Result [facility] [address] [id number] * (ABNORMAL) POCT arterial blood gas gem (05/27/2025 4:29 PM EDT) pH, Arterial 7.40 7.31 - 7.42 06/09/2025 10:06 AM EDT [facility] pCO2, Arterial 35 35 - 48 mm Hg 06/09/2025 10:06 AM EDT [facility] pO2, Arterial 285 >70 mm Hg 06/09/2025 10:06 AM EDT [facility] SO2, Arterial 99(H) 94 - 98 % 06/09/2025 10:06 AM EDT [facility] Base Excess, Arterial -2.5(L) -2 - 3 mmol/L 06/09/2025 10:06 AM EDT [facility] HCO3, Arterial 21.7(L) 22 - 26 mmol/L 06/09/2025 10:06 AM EDT [facility] Total Hemoglobin, Arterial, Whole Blood <6.0(LL) 11.2 - 15.7 g/dL 06/09/2025 10:06 AM EDT [facility] Sodium, Arterial 140 136 - 145 mmol/L 06/09/2025 10:06 AM EDT [facility] Potassium, Arterial 4.1 3.6 - 4.9 mmol/L 06/09/2025 10:06 AM EDT [facility] Chloride, Whole Blood 104 97 - 107 mmol/L 06/09/2025 10:06 AM EDT [facility] Glucose, Arterial 190(H) 74 - 99 mg/dL 06/09/2025 10:06 AM EDT [facility] Ionized Calcium, Arterial 4.1(L) 4.6 - 5.1 mg/dL 06/09/2025 10:06 AM EDT [facility] Lactate, Arterial 4.0(H) 0.5 - 1.6 mmol/L 06/09/2025 10:06 AM EDT [facility] Body Temperature 37.0 Celsius 06/09/2025 10:06 AM EDT [facility] pH, Temp Corrected, Arterial 7.40 7.31 - 7.42 06/09/2025 10:06 AM EDT [facility] pCO2, Temp Corrected, Arterial 35 35 - 48 mm Hg 06/09/2025 10:06 AM EDT [facility] pO2, Temp Corrected, Arterial 285 >70 mm Hg 06/09/2025 10:06 AM EDT [facility] Review Specialist ID Miguel Ángel Rowe 06/09/2025 10:06 AM EDT [facility] Blood, Arterial Whole blood specimen / Unknown 05/27/2025 4:29 PM EDT 06/09/2025 10:06 AM EDT us Jose C Nicholson MD LAB POINT OF CARE TE ST DOCKED DEVICE UNSOLICITED RESULTS Final Result [facility] [address] [place] [address] * QPLUS (05/27/2025 4:27 PM EDT) Clot Time 150 104 - 166 Seconds 05/27/2025 4:41 PM EDT [facility] Clot Time Ratio 1.0 0.8 - 1.2 4:41 PM EDT [facility] Comment:The Clot Time Ratio (CTR) is a calculated parameter. CTR values of 0.8 1.2 are demonstrated to be typical of n ormal patient samples. Samples with CTR values > 1.4 are indicative of prolongation of the intrinsic pathway clotting time, likely due to the influence of unfractionated heparin. POCT Clot Stiffness 20.5 13.0 - 33.2 hectoPascals 05/27/2025 4:41 PM EDT [facility] Platelet Contribution to Clot Stiffnes 18.0 11.9 - 29.8 hectoPascals 05/27/2025 4:41 PM EDT [facility] Fibrinogen Contribution to Clot Stiffness 2.5 1.0 - 3.7 hectoPascals 05/27/2025 4:41 PM EDT [facility] Heparinase Clot Time 147 103 - 153 Seconds 05/27/2025 4:41 PM EDT [facility] Review Specialist ID [place] Chris 05/27/2025 4:41 PM EDT [facility] Device ID [id number] 05/27/2025 4:41 PM EDT [facility] Whole Blood 05/27/2025 4:27 PM EDT 05/27/2025 4:41 PM EDT Jose C Nicholson MD LAB POINT OF CARE TE ST DOCKED DEVICE UNSOLICITED RESULTS Final Result Performing Organization Address [facility] Co de Phone Number [facility] [address] [place] [address] * Transfuse fresh frozen plasma (05/27/2025 4:08 PM EDT) Miguel Ángel Malave MD BLOOD TRANSFUSION ORDERABLE S Final Result * Transfuse platelets (05/27/2025 4:07 PM EDT) Miguel Ángel Malave MD BLOOD TRANSFUSION ORDERABLE S Final Result * Prepare Leukocyte Reduced Platelets: 1 Units (05/27/2025 3:58 PM EDT) Product Code [id number] CH BLOO D BANK Dispense Status Transfused BLOOD BANK Blood Expiration Date [id number] BLOOD BANK Unit Number [id number] CH B LOOD BANK Product Blood Type 6200 BLOOD BANK Blood Type A+ BLOOD BANK Blood Venous blood specimen / Unknown Jose C Nicholson MD BLOOD BANK PRODUCT ORDERABLES F inal Result Performing Organization Address [facility] de Phone Number BLOOD BANK [address] * (ABNORMAL) POCT arterial blood gas gem (05/27/2025 3:43 PM EDT) pH, Arterial 7.38 7.31 - 7.42 05/30/2025 10:55 AM EDT [facility] pCO2, Arterial 33(L) 35 - 48 mm Hg 05/30/2025 10:55 AM EDT [facility] pO2, Arterial 138 >70 mm Hg 05/30/2025 10:55 AM EDT [facility] SO2, Arterial 98 94 - 98 % 05/30/2025 10:55 AM EDT [facility] Base Excess, Arterial -5.0(L) -2 - 3 mmol/L 05/30/2025 10:55 AM [facility] HCO3, Arterial 19.5(L) 22 - 26 mmol/L 05/30/2025 10:55 AM [facility] Total Hemoglobin, Arterial, Whole Blood 8.5(L) 11.2 - 15.7 g/dL 05/30/2025 10:55 AM [facility] Hematocrit, Arterial 26.0(L) 34.0 - 45.0 % 05/30/2025 10:55 AM [facility] Sodium, Arterial 136 136 - 145 mmol/L 05/30/2025 10:55 AM [facility] Potassium, Arterial 5.0(H) 3.6 - 4.9 mmol/L 05/30/2025 10:55 AM [facility] Chloride, Whole Blood 106 97 - 107 mmol/L 05/30/2025 10:55 AM [facility] Glucose, Arterial 213(H) 74 - 99 mg/dL 05/30/2025 10:55 AM [facility] Ionized Calcium, Arterial 5.7(H) 4.6 - 5.1 mg/dL 05/30/2025 10:55 AM [facility] Lactate, Arterial 4.7(H) 0.5 - 1.6 mmol/L 05/30/2025 10:55 AM [facility] Body Temperature 37.0 Celsius 05/30/2025 10:55 AM [facility] pH, Temp Corrected, Arterial 7.38 7.31 - 7.42 05/30/2025 10:55 AM [facility] pCO2, Temp Corrected, Arterial 33(L) 35 - 48 mm Hg 05/30/2025 10:55 AM [facility] pO2, Temp Corrected, Arterial 138 >70 mm Hg 05/30/2025 10:55 AM [facility] Review Specialist KERWIN Belg[place] Chris 05/30/2025 10:55 AM [facility] Blood, Arterial Whole blood specimen / Unknown 05/27/2025 3:43 PM EDT 05/30/2025 10:55 AM T us Jose C Nicholson MD LAB POINT OF CARE TE ST DOCKED DEVICE UNSOLICITED RESULTS Final Result Performing Organization Address [facility] Co de Phone Number [facility] [address] [place] [address] * POCT ACT (05/27/2025 3:40 PM EDT) ACT+ (HIGH RANGE) 140 68 - 600 Seconds 06/14/2025 3:51 AM EDT [facility] Review Specialist ID Giacomo, Gene 06/14/2025 3:51 AM EDT [facility] ACT Device ID [id number] 06/14/2025 3:51 AM EDT [facility] Comment 06/14/2025 3:51 AM EDT [facility] Comment: ACT performed by staff at point of care. Results are reported immediately to the physician or primary caregiver. The activated clotting time is performed on patients with diverse clinical characteristics and treatment histories. Therefore, expected values are variable and results must be interpreted in the context of each individual patient. Blood Venous blood specimen / Unknown 05/27/2025 3:40 PM EDT 06/14/2025 3:51 AM EDT us Jose C Nicholson MD LAB POINT OF CARE TE ST DOCKED DEVICE UNSOLICITED RESULTS Final Result Performing Organization Address [facility] de Phone Number [facility] [address] LAB [address] [place] [address] * Transfuse fresh frozen plasma (05/27/2025 3:36 PM EDT) us Miguel Ángel Malave MD BLOOD TRANSFUSION ORDERABLE S Final Result * Transfuse fresh frozen plasma (05/27/2025 3:36 PM EDT) Result Moises Malave MD BLOOD TRANSFUSION ORDERABLE S Final Result * Transfuse cryoprecipitate (05/27/2025 3:36 PM EDT) Result Moises Malave MD BLOOD TRANSFUSION ORDERABLE S Final Result * Transfuse cryoprecipitate (05/27/2025 3:36 PM EDT) Result Moises Malave MD BLOOD TRANSFUSION ORDERABLE S Final Result * Transfuse platelets (05/27/2025 3:34 PM EDT) us Miguel Ángel Malave MD BLOOD TRANSFUSION ORDERABLE S Final Result * Transfuse platelets (05/27/2025 3:34 PM EDT) us Miguel Ángel Malave MD BLOOD TRANSFUSION ORDERABLE S Final Result * Transfuse RBC (05/27/2025 3:23 PM EDT) Miguel Ángel Malave MD BLOOD TRANSFUSION ORDERABLE S Final Result * (ABNORMAL) POCT arterial blood gas gem (05/27/2025 3:02 PM EDT) [facility] pH, Arterial 7.40 7.31 - 7.42 05/30/2025 10:55 AM EDT [facility] pCO2, Arterial 37 35 - 48 mm Hg 05/30/2025 10:55 AM EDT [facility] pO2, Arterial 296 >70 mm Hg 05/30/2025 10:55 AM EDT [facility] SO2, Arterial 98 94 - 98 % 05/30/2025 10:55 AM EDT [facility] Base Excess, Arterial -1.7 -2 - 3 mmol/L 05/30/2025 10:55 AM EDT [facility] HCO3, Arterial 22.9 22 - 26 mmol/L 05/30/2025 10:55 AM EDT [facility] Total Hemoglobin, Arterial, Whole Blood 8.4(L) 11.2 - 15.7 g/dL 05/30/2025 10:55 AM EDT [facility] Hematocrit, Arterial 25.0(L) 34.0 - 45.0 % 05/30/2025 10:55 AM EDT [facility] Sodium, Arterial 136 136 - 145 mmol/L 05/30/2025 10:55 AM EDT [facility] Potassium, Arterial 5.1(H) 3.6 - 4.9 mmol/L 05/30/2025 10:55 AM EDT [facility] Chloride, Whole Blood 102 97 - 107 mmol/L 05/30/2025 10:55 AM EDT [facility] Glucose, Arterial 210(H) 74 - 99 mg/dL 05/30/2025 10:55 AM EDT [facility] Ionized Calcium, Arterial 5.3(H) 4.6 - 5.1 mg/dL 05/30/2025 10:55 AM EDT [facility] Lactate, Arterial 3.8(H) 0.5 - 1.6 mmol/L 05/30/2025 10:55 AM EDT [facility] Body Temperature 37.0 Celsius 05/30/2025 10:55 AM EDT [facility] pH, Temp Corrected, Arterial 7.40 7.31 - 7.42 05/30/2025 10:55 AM EDT [facility] pCO2, Temp Corrected, Arterial 37 35 - 48 mm Hg 05/30/2025 10:55 AM EDT [facility] pO2, Temp Corrected, Arterial 296 >70 mm Hg 05/30/2025 10:55 AM EDT [facility] Review Specialist ID Krzysztof Gooden 05/30/2025 10:55 AM EDT [facility] Blood, Arterial Whole blood specimen / Unknown 05/27/2025 3:02 PM EDT 05/30/2025 10:55 AM EDT us Jose C Nicholson MD LAB POINT OF CARE TE ST DOCKED DEVICE UNSOLICITED RESULTS Final Result [facility] [address] [place] [address] * (ABNORMAL) TEG Global Hemostasis with Heparinase (05/27/2025 2:52 PM EDT) R >17.0(H) 4.6 - 9.1 min 05/27/2025 4:38 PM EDT [facility] R, Heparinase 11.1(H) 4.3 - 8.3 min 05/27/2025 4:38 PM EDT [facility] K 05/27/2025 4:38 PM EDT [facility] Comment:Interfering substanc es present. Parameter cannot be measured. Angle <39.0(L) 63.0 - 78.0 degrees 05/27/2025 4:38 PM EDT [facility] MA <40.0(L) 52.0 - 69.0 mm 05/27/2025 4:38 PM EDT [facility] MA, Rapid 05/27/2025 4:38 PM EDT [facility] Comment:Interfering substanc es present. Parameter cannot be measured. MA, Fibrinogen 05/27/2025 4:38 PM EDT [facility] Comment:Interfering substanc es present. Parameter cannot be measured. FLEV 05/27/2025 4:38 PM EDT [facility] Comment:Interfering substanc es present. Parameter cannot be measured. 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] us Jose C Nicholson MD LAB BLOOD ORDERABLES Final Resu lt [facility] [address] [place] [address] * (ABNORMAL) CBC W/O Differential (05/27/2025 2:52 PM EDT) WBC Count 9.22 3.70 - 10.30 10*3/uL LAB HEMATOLOGY METHOD 05/27/2025 4:40 PM EDT [facility] RBC Count 2.67(L) 3.90 - 5.20 10*6/uL LAB HEMATOLOGY METHOD 05/27/2025 4:40 PM EDT [facility] HGB 8.0(L) 11.2 - 15.7 g/dL LAB HEMATOLOGY METHOD 05/27/2025 4:40 PM EDT [facility] HCT 23.5(L) 34.0 - 45.0 % LAB HEMATOLOGY METHOD 05/27/2025 4:40 PM EDT [facility] Platelet Count 85(L) 155 - 369 10*3/uL LAB HEMATOLOGY METHOD 05/27/2025 4:40 PM EDT [facility] MCV 88 79 - 98 fL LAB HEMATOLOGY METHOD 05/27/2025 4:40 PM EDT [facility] MCH 30.0 26.0 - 32.0 pg LAB HEMATOLOGY METHOD 05/27/2025 4:40 PM EDT [facility] MCHC 34.0 30.7 - 35.5 g/dL LAB HEMATOLOGY METHOD 05/27/2025 4:40 PM EDT [facility] RDW 14.4 11.5 - 14.5 % LAB HEMATOLOGY METHOD 05/27/2025 4:40 PM EDT [facility] MPV 11.8 8.8 - 12.5 fL LAB HEMATOLOGY METHOD 05/27/2025 4:40 PM EDT [facility] nRBC 0.3(H) <=0.0 per 100 WBCs LAB HEMATOLOGY METHOD 05/27/2025 4:40 PM EDT [facility] 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] us Jose C Nicholson MD LAB BLOOD ORDERABLES Final Resu lt [facility] [address] [place] [address] * (ABNORMAL) QPLUS (05/27/2025 2:46 PM EDT) Clot Time 05/27/2025 3:03 PM EDT [facility] Clot Time Ratio 3:03 PM EDT [facility] POCT Clot Stiffness 10.5(L) 13.0 - 33.2 hectoPascals 05/27/2025 3:03 PM EDT [facility] Platelet Contribution to Clot Stiffnes 9.1(L) 11.9 - 29.8 hectoPascals 05/27/2025 3:03 PM EDT [facility] Fibrinogen Contribution to Clot Stiffness 1.4 1.0 - 3.7 hectoPascals 05/27/2025 3:03 PM EDT [facility] Heparinase Clot Time 162(H) 103 - 153 Seconds 05/27/2025 3:03 PM EDT [facility] Review Specialist ID Gurpreet Arzola 05/27/2025 3:03 PM EDT [facility] Device ID [id number] 05/27/2025 3:03 PM EDT [facility] Whole Blood 05/27/2025 2:46 PM EDT 05/27/2025 3:03 PM EDT Narrative [facility] - 05/27/2025 3:[address]: No Clot Detected Jose C Nicholson MD LAB POINT OF CARE TE ST DOCKED DEVICE UNSOLICITED RESULTS Final Result Performing Organization Address [facility] Co de Phone Number [facility] [address] [place] [address] * Prepare Cryoprecipitate: 2 Pools (05/27/2025 2:46 PM EDT) Product Code [id number] CH BLOO D BANK Dispense Status Transfused CH BLOOD BANK Blood Expiration Date [id number] BLOOD BANK Unit Number [id number] CH B LOOD BANK Product Blood Type 6200 BLOOD BANK Blood Type A+ CH BLOOD BANK Product Code [id number] CH BLOO D BANK Dispense Status Transfused CH BLOOD BANK Blood Expiration Date [id number] BLOOD BANK Unit Number [id number] CH B LOOD BANK Product Blood Type 6200 BLOOD BANK Blood Type A+ CH BLOOD BANK Blood Venous blood specimen / Unknown Jose C Nicholson MD BLOOD BANK PRODUCT ORDERABLES E dited Result - Final Performing Organization Address City/[facility]/ZIP Co de Phone Number BLOOD BANK [address] [place] [address] * Prepare Leukocyte Reduced Platelets: 2 Units (05/27/2025 2:46 PM EDT) Product Code [id number] CH BLOO D BANK Dispense Status Transfused CH BLOOD BANK Blood Expiration Date [id number] BLOOD BANK Unit Number [id number] CH B LOOD BANK Product Blood Type 6200 BLOOD BANK Blood Type A+ CH BLOOD BANK Product Code [id number] CH BLOO D BANK Dispense Status Transfused CH BLOOD BANK Blood Expiration Date [id number] BLOOD BANK Unit Number [id number] CH B LOOD BANK Product Blood Type 6200 CH BLOOD BANK Blood Type A+ BLOOD BANK Blood Venous blood specimen / Unknown us Jose C Nicholson MD BLOOD BANK PRODUCT ORDERABLES E dited Result - Final BLOOD BANK [address] [place] [address], * (ABNORMAL) POCT arterial blood gas gem (05/27/2025 2:36 PM EDT) pH, Arterial 7.41 7.31 - 7.42 05/30/2025 10:54 AM EDT [facility] pCO2, Arterial 31(L) 35 - 48 mm Hg 05/30/2025 10:54 AM EDT [facility] pO2, Arterial 233 >70 mm Hg 05/30/2025 10:54 AM EDT [facility] SO2, Arterial 98 94 - 98 % 05/30/2025 10:54 AM EDT [facility] Base Excess, Arterial -4.4(L) -2 - 3 mmol/L 05/30/2025 10:54 AM EDT [facility] HCO3, Arterial 19.6(L) 22 - 26 mmol/L 05/30/2025 10:54 AM EDT [facility] Total Hemoglobin, Arterial, Whole Blood 8.2(L) 11.2 - 15.7 g/dL 05/30/2025 10:54 AM EDT [facility] Hematocrit, Arterial 25.0(L) 34.0 - 45.0 % 05/30/2025 10:54 AM EDT [facility] Sodium, Arterial 133(L) 136 - 145 mmol/L 05/30/2025 10:54 AM EDT [facility] Potassium, Arterial 5.0(H) 3.6 - 4.9 mmol/L 05/30/2025 10:54 AM EDT [facility] Chloride, Whole Blood 100 97 - 107 mmol/L 05/30/2025 10:54 AM EDT [facility] Glucose, Arterial 229(H) 74 - 99 mg/dL 05/30/2025 10:54 AM EDT [facility] Ionized Calcium, Arterial 3.9(L) 4.6 - 5.1 mg/dL 05/30/2025 10:54 AM EDT [facility] Lactate, Arterial 3.8(H) 0.5 - 1.6 mmol/L 05/30/2025 10:54 AM EDT [facility] Body Temperature 37.0 Celsius 05/30/2025 10:54 AM EDT [facility] pH, Temp Corrected, Arterial 7.41 7.31 - 7.42 05/30/2025 10:54 AM EDT [facility] pCO2, Temp Corrected, Arterial 31(L) 35 - 48 mm Hg 05/30/2025 10:54 AM EDT [facility] pO2, Temp Corrected, Arterial 233 >70 mm Hg 05/30/2025 10:54 AM EDT [facility] Review Specialist ID Krzysztof Gooden 05/30/2025 10:54 AM EDT [facility] Blood, Arterial Whole blood specimen / Unknown 05/27/2025 2:36 PM EDT 05/30/2025 10:54 AM EDT Jose C Nicholson MD LAB POINT OF CARE TE ST DOCKED DEVICE UNSOLICITED RESULTS Final Result Performing Organization Address City/[facility] de Phone Number [facility] [address] [place] [address] * Prepare Fresh Frozen Plasma: 2 Units (05/27/2025 2:15 PM EDT) Product Code [id number] CH BLOO D BANK Dispense Status Transfused BLOOD BANK Blood Expiration Date [id number] BLOOD BANK Unit Number [id number] CH B LOOD BANK Product Blood Type 6200 BLOOD BANK Blood Type A+ CH BLOOD BANK Product Code [id number] CH BLOO D BANK Dispense Status Transfused CH BLOOD BANK Blood Expiration Date [id number] BLOOD BANK Unit Number [id number] CH B LOOD BANK Product Blood Type 6200 BLOOD BANK Blood Type A+ CH BLOOD BANK Blood Venous blood specimen / Unknown Jose C Nicholson MD BLOOD BANK PRODUCT ORDERABLES F inal Result Performing Organization Address City/[facility] Co de Phone Number BLOOD BANK [address] [place] [address], * Prepare Leukocyte Reduced RBC: 4 Units (05/27/2025 2:15 PM EDT) Product Code [id number] BLOO D BANK Dispense Status Returned BLOOD BANK Blood Expiration Date [id number] BLOOD BANK Unit Number [id number] CH B LOOD BANK Product Blood Type 6200 BLOOD BANK Blood Type A+ CH BLOOD BANK Crossmatch Compatible BLOOD BANK Product Code [id number] BLOO D BANK Dispense Status Returned BLOOD BANK Blood Expiration Date [id number] BLOOD BANK Unit Number [id number] CH B LOOD BANK Product Blood Type 6200 BLOOD BANK Blood Type A+ CH BLOOD BANK Crossmatch Compatible BLOOD BANK Product Code [id number] BLOO D BANK Dispense Status Transfused BLOOD BANK Blood Expiration Date [id number] BLOOD BANK Unit Number [id number] CH B LOOD BANK Product Blood Type 6200 BLOOD BANK Blood Type A+ CH BLOOD BANK Crossmatch Compatible BLOOD BANK Product Code [id number] BLOO D BANK Dispense Status Returned BLOOD BANK Blood Expiration Date [id number] BLOOD BANK Unit Number [id number] CH B LOOD BANK Product Blood Type 6200 BLOOD BANK Blood Type A+ CH BLOOD BANK Crossmatch Compatible BLOOD BANK Other Jose C Nicholson MD BLOOD BANK PRODUCT ORDERABLES E dited Result - Final BLOOD BANK [address] * Transfuse RBC (05/27/2025 2:13 PM EDT) Miguel Ángel Malave MD BLOOD TRANSFUSION ORDERABLE S Final Result * (ABNORMAL) POCT arterial blood gas gem (05/27/2025 2:09 PM EDT) pH, Arterial 7.49(H) 7.31 - 7.42 05/30/2025 10:54 AM EDT [facility] pCO2, Arterial 29(L) 35 - 48 mm Hg 05/30/2025 10:54 AM [facility] pO2, Arterial 336 >70 mm Hg 05/30/2025 10:54 AM [facility] SO2, Arterial 98 94 - 98 % 05/30/2025 10:54 AM [facility] Base Excess, Arterial -1.0 -2 - 3 mmol/L 05/30/2025 10:54 AM [facility] HCO3, Arterial 22.1 22 - 26 mmol/L 05/30/2025 10:54 AM [facility] Total Hemoglobin, Arterial, Whole Blood 7.1(L) 11.2 - 15.7 g/dL 05/30/2025 10:54 AM [facility] Hematocrit, Arterial 21.0(L) 34.0 - 45.0 % 05/30/2025 10:54 AM [facility] Sodium, Arterial 134(L) 136 - 145 mmol/L 05/30/2025 10:54 AM [facility] Potassium, Arterial 5.0(H) 3.6 - 4.9 mmol/L 05/30/2025 10:54 AM [facility] Chloride, Whole Blood 101 97 - 107 mmol/L 05/30/2025 10:54 AM [facility] Glucose, Arterial 185(H) 74 - 99 mg/dL 05/30/2025 10:54 AM [facility] Ionized Calcium, Arterial 3.7(L) 4.6 - 5.1 mg/dL 05/30/2025 10:54 AM [facility] Lactate, Arterial 3.7(H) 0.5 - 1.6 mmol/L 05/30/2025 10:54 AM [facility] Body Temperature 37.0 Celsius 05/30/2025 10:54 AM [facility] pH, Temp Corrected, Arterial 7.49(H) 7.31 - 7.42 05/30/2025 10:54 AM [facility] pCO2, Temp Corrected, Arterial 29(L) 35 - 48 mm Hg 05/30/2025 10:54 AM [facility] pO2, Temp Corrected, Arterial 336 >70 mm Hg 05/30/2025 10:54 AM [facility] Review Specialist Liliana Woodard 05/30/2025 10:54 AM EDT [facility] Blood, Arterial Whole blood specimen / Unknown 05/27/2025 2:09 PM EDT 05/30/2025 10:54 AM EDT us Jose C Nicholson MD LAB POINT OF CARE TE ST DOCKED DEVICE UNSOLICITED RESULTS Final Result [facility] [address] [place] [address] * Surgical Pathology Exam (05/27/2025 1:16 PM EDT) Case Report Surgical Pathology Case: [id number] Authorizing Provider: Jose C Nicholson MD Collected: 05/27/2025 1316 Ordering Location: [facility] A OPERATING ROOM Received: 05/28/2025 0741 Pathologist: Christin Armijo MD Specimen: Other (specify site), ascending aortic aneurysm 05/29/2025 4:47 PM EDT [facility] Final Diagnosis A. ASCENDING AORTIC ANEURYSM, REPLACEMENT: - MEDIAL DEGENERATION AND DYSTROPHIC CALCIFICATIONS. 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 ASCENDING AORTIC ANEURYSM Received in formalin labeled ascending aortic aneurysm , is an aggregate of pink-sotomayor vascular tissue, grossly consistent with aorta, measuring 6.7 x 5.5 x 3.4 cm. Software Lead sections are submitted in cassette A1. 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] us Jose C Nicholson MD LAB PATHOLOGY ORDERABLES Final Result [facility] [address] [id number] * (ABNORMAL) POCT arterial blood gas gem (05/27/2025 12:38 PM EDT) pH, Arterial 7.41 7.31 - 7.42 05/27/2025 12:39 PM EDT [facility] pCO2, Arterial 32(L) 35 - 48 mm Hg 05/27/2025 12:39 PM EDT [facility] pO2, Arterial 302 >70 mm Hg 05/27/2025 12:39 PM EDT [facility] SO2, Arterial 98 94 - 98 % 05/27/2025 12:39 PM EDT [facility] Base Excess, Arterial -3.8(L) -2 - 3 mmol/L 05/27/2025 12:39 PM EDT [facility] HCO3, Arterial 20.3(L) 22 - 26 mmol/L 05/27/2025 12:39 PM EDT [facility] Total Hemoglobin, Arterial, Whole Blood 8.9(L) 11.2 - 15.7 g/dL 05/27/2025 12:39 PM EDT [facility] Hematocrit, Arterial 27.0(L) 34.0 - 45.0 % 05/27/2025 12:39 PM EDT [facility] Sodium, Arterial 134(L) 136 - 145 mmol/L 05/27/2025 12:39 PM EDT [facility] Potassium, Arterial 4.4 3.6 - 4.9 mmol/L 05/27/2025 12:39 PM EDT [facility] Chloride, Whole Blood 100 97 - 107 mmol/L 05/27/2025 12:39 PM EDT [facility] Glucose, Arterial 136(H) 74 - 99 mg/dL 05/27/2025 12:39 PM EDT [facility] Ionized Calcium, Arterial 4.2(L) 4.6 - 5.1 mg/dL 05/27/2025 12:39 PM EDT [facility] Lactate, Arterial 1.7(H) 0.5 - 1.6 mmol/L 05/27/2025 12:39 PM EDT [facility] Body Temperature 37.0 Celsius 05/27/2025 12:39 PM EDT [facility] pH, Temp Corrected, Arterial 7.41 7.31 - 7.42 05/27/2025 12:39 PM EDT [facility] pCO2, Temp Corrected, Arterial 32(L) 35 - 48 mm Hg 05/27/2025 12:39 PM EDT [facility] pO2, Temp Corrected, Arterial 302 >70 mm Hg 05/27/2025 12:39 PM EDT [facility] Review Specialist ID Charly Bowens 05/27/2025 12:39 PM EDT [facility] Blood, Arterial Whole blood specimen / Unknown 05/27/2025 12:38 PM EDT 05/27/2025 12:39 PM EDT us Jose C Nicholson MD LAB POINT OF CARE TE ST DOCKED DEVICE UNSOLICITED RESULTS Final Result [facility] [address] [place] [address] * (ABNORMAL) POCT arterial blood gas gem (05/27/2025 12:17 PM EDT) pH, Arterial 7.44(H) 7.31 - 7.42 05/27/2025 12:18 PM EDT [facility] pCO2, Arterial 31(L) 35 - 48 mm Hg 05/27/2025 12:18 PM EDT [facility] pO2, Arterial 329 >70 mm Hg 05/27/2025 12:18 PM EDT [facility] SO2, Arterial 99(H) 94 - 98 % 05/27/2025 12:18 PM EDT [facility] Base Excess, Arterial -2.5(L) -2 - 3 mmol/L 05/27/2025 12:18 PM EDT [facility] HCO3, Arterial 21.1(L) 22 - 26 mmol/L 05/27/2025 12:18 PM EDT [facility] Total Hemoglobin, Arterial, Whole Blood 9.1(L) 11.2 - 15.7 g/dL 05/27/2025 12:18 PM EDT [facility] Hematocrit, Arterial 27.0(L) 34.0 - 45.0 % 05/27/2025 12:18 PM EDT [facility] Sodium, Arterial 133(L) 136 - 145 mmol/L 05/27/2025 12:18 PM EDT [facility] Potassium, Arterial 4.4 3.6 - 4.9 mmol/L 05/27/2025 12:18 PM EDT [facility] Chloride, Whole Blood 101 97 - 107 mmol/L 05/27/2025 12:18 PM EDT [facility] Glucose, Arterial 137(H) 74 - 99 mg/dL 05/27/2025 12:18 PM EDT [facility] Ionized Calcium, Arterial 4.2(L) 4.6 - 5.1 mg/dL 05/27/2025 12:18 PM EDT [facility] Lactate, Arterial 1.8(H) 0.5 - 1.6 mmol/L 05/27/2025 12:18 PM EDT [facility] Body Temperature 37.0 Celsius 05/27/2025 12:18 PM EDT [facility] pH, Temp Corrected, Arterial 7.44(H) 7.31 - 7.42 05/27/2025 12:18 PM EDT [facility] pCO2, Temp Corrected, Arterial 31(L) 35 - 48 mm Hg 05/27/2025 12:18 PM EDT [facility] pO2, Temp Corrected, Arterial 329 >70 mm Hg 05/27/2025 12:18 PM EDT [facility] Review Specialist ID Liliana Felix 05/27/2025 12:18 PM EDT [facility] Blood, Arterial Whole blood specimen / Unknown 05/27/2025 12:17 PM EDT 05/27/2025 12:18 PM EDT us Jose C Nicholson MD LAB POINT OF CARE TE ST DOCKED DEVICE UNSOLICITED RESULTS Final Result [facility] [address] [place] [address] * (ABNORMAL) POCT arterial blood gas gem (05/27/2025 11:42 AM EDT) pH, Arterial 7.42 7.31 - 7.42 05/27/2025 11:44 AM EDT [facility] pCO2, Arterial 34(L) 35 - 48 mm Hg 05/27/2025 11:44 AM [facility] pO2, Arterial 346 >70 mm Hg 05/27/2025 11:44 AM [facility] SO2, Arterial 98 94 - 98 % 05/27/2025 11:44 AM [facility] Base Excess, Arterial -2.0 -2 - 3 mmol/L 05/27/2025 11:44 AM [facility] HCO3, Arterial 22.1 22 - 26 mmol/L 05/27/2025 11:44 AM [facility] Total Hemoglobin, Arterial, Whole Blood 8.7(L) 11.2 - 15.7 g/dL 05/27/2025 11:44 AM [facility] Hematocrit, Arterial 26.0(L) 34.0 - 45.0 % 05/27/2025 11:44 AM [facility] Sodium, Arterial 133(L) 136 - 145 mmol/L 05/27/2025 11:44 AM [facility] Potassium, Arterial 4.3 3.6 - 4.9 mmol/L 05/27/2025 11:44 AM [facility] Chloride, Whole Blood 100 97 - 107 mmol/L 05/27/2025 11:44 AM [facility] Glucose, Arterial 143(H) 74 - 99 mg/dL 05/27/2025 11:44 AM [facility] Ionized Calcium, Arterial 4.3(L) 4.6 - 5.1 mg/dL 05/27/2025 11:44 AM [facility] Lactate, Arterial 1.7(H) 0.5 - 1.6 mmol/L 05/27/2025 11:44 AM [facility] Body Temperature 37.0 Celsius 05/27/2025 11:44 AM [facility] pH, Temp Corrected, Arterial 7.42 7.31 - 7.42 05/27/2025 11:44 AM [facility] pCO2, Temp Corrected, Arterial 34(L) 35 - 48 mm Hg 05/27/2025 11:44 AM [facility] pO2, Temp Corrected, Arterial 346 >70 mm Hg 05/27/2025 11:44 AM [facility] Review Specialist ID Liliana Felix 05/27/2025 11:44 AM [facility] Blood, Arterial Whole blood specimen / Unknown 05/27/2025 11:42 AM EDT 05/27/2025 11:44 AM EDT Jose C Nicholson MD LAB POINT OF CARE TE ST DOCKED DEVICE UNSOLICITED RESULTS Final Result [facility] [address] [place] [address] * Transfuse RBC (05/27/2025 11:18 AM EDT) Miguel Ángel Malave MD BLOOD TRANSFUSION ORDERABLE S Final Result * (ABNORMAL) POCT arterial blood gas gem (05/27/2025 11:15 AM EDT) pH, Arterial 7.54(H) 7.31 - 7.42 05/27/2025 11:27 AM EDT [facility] pCO2, Arterial 26(L) 35 - 48 mm Hg 05/27/2025 11:27 AM EDT [facility] pO2, Arterial 379 >70 mm Hg 05/27/2025 11:27 AM EDT [facility] SO2, Arterial 97 94 - 98 % 05/27/2025 11:27 AM EDT [facility] Base Excess, Arterial -0.2 -2 - 3 mmol/L 05/27/2025 11:27 AM EDT [facility] HCO3, Arterial 22.2 22 - 26 mmol/L 05/27/2025 11:27 AM EDT [facility] Total Hemoglobin, Arterial, Whole Blood 6.7(L) 11.2 - 15.7 g/dL 05/27/2025 11:27 AM EDT [facility] Hematocrit, Arterial 20.0(L) 34.0 - 45.0 % 05/27/2025 11:27 AM EDT [facility] Sodium, Arterial 132(L) 136 - 145 mmol/L 05/27/2025 11:27 AM EDT [facility] Potassium, Arterial 5.0(H) 3.6 - 4.9 mmol/L 05/27/2025 11:27 AM EDT [facility] Chloride, Whole Blood 101 97 - 107 mmol/L 05/27/2025 11:27 AM EDT [facility] Glucose, Arterial 126(H) 74 - 99 mg/dL 05/27/2025 11:27 AM EDT [facility] Ionized Calcium, Arterial 4.0(L) 4.6 - 5.1 mg/dL 05/27/2025 11:27 AM EDT [facility] Lactate, Arterial 1.1 0.5 - 1.6 mmol/L 05/27/2025 11:27 AM EDT [facility] Body Temperature 37.0 Celsius 05/27/2025 11:27 AM EDT [facility] pH, Temp Corrected, Arterial 7.54(H) 7.31 - 7.42 05/27/2025 11:27 AM EDT [facility] pCO2, Temp Corrected, Arterial 26(L) 35 - 48 mm Hg 05/27/2025 11:27 AM EDT [facility] pO2, Temp Corrected, Arterial 379 >70 mm Hg 05/27/2025 11:27 AM EDT [facility] Review Specialist ID IsidroLiliana coel 05/27/2025 11:27 AM EDT [facility] Blood, Arterial Whole blood specimen / Unknown 05/27/2025 11:15 AM EDT 05/27/2025 11:27 AM EDT Jose C Nicholson MD LAB POINT OF CARE TE ST DOCKED DEVICE UNSOLICITED RESULTS Final Result [facility] [address] [place] [address] * POCT ACT (05/27/2025 10:00 AM EDT) ACT+ (HIGH RANGE) 523 68 - 600 Seconds 06/14/2025 3:51 AM EDT [facility] Review Specialist ID IsidroLiliana cole 06/14/2025 3:51 AM EDT [facility] ACT Device ID [id number] 06/14/2025 3:51 AM EDT [facility] Comment 06/14/2025 3:51 AM EDT [facility] Comment: ACT performed by staff at point of care. Results are reported immediately to the physician or primary caregiver. The activated clotting time is performed on patients with diverse clinical characteristics and treatment histories. Therefore, expected values are variable and results must be interpreted in the context of each individual patient. Blood Venous blood specimen / Unknown 05/27/2025 10:00 AM EDT 06/14/2025 3:51 AM EDT us Jose C Nicholson MD LAB POINT OF CARE TE ST DOCKED DEVICE UNSOLICITED RESULTS Final Result [facility] [address] LAB [address] [place] [address] * Transfuse RBC (05/27/2025 9:25 AM EDT) us Miguel Ángel Malave MD BLOOD TRANSFUSION ORDERABLE S Final Result * (ABNORMAL) POCT arterial blood gas gem (05/27/2025 9:24 AM EDT) pH, Arterial 7.44(H) 7.31 - 7.42 05/27/2025 9:25 AM EDT [facility] pCO2, Arterial 36 35 - 48 mm Hg 05/27/2025 9:25 AM EDT [facility] pO2, Arterial 229 >70 mm Hg 05/27/2025 9:25 AM EDT [facility] SO2, Arterial 98 94 - 98 % 05/27/2025 9:25 AM EDT [facility] Base Excess, Arterial 0.5 -2 - 3 mmol/L 05/27/2025 9:25 AM EDT [facility] HCO3, Arterial 24.5 22 - 26 mmol/L 05/27/2025 9:25 AM EDT [facility] Total Hemoglobin, Arterial, Whole Blood 10.2(L) 11.2 - 15.7 g/dL 05/27/2025 9:25 AM EDT [facility] Hematocrit, Arterial 31.0(L) 34.0 - 45.0 % 05/27/2025 9:25 AM EDT [facility] Sodium, Arterial 136 136 - 145 mmol/L 05/27/2025 9:25 AM EDT [facility] Potassium, Arterial 3.2(L) 3.6 - 4.9 mmol/L 05/27/2025 9:25 AM EDT [facility] Chloride, Whole Blood 104 97 - 107 mmol/L 05/27/2025 9:25 AM EDT [facility] Glucose, Arterial 114(H) 74 - 99 mg/dL 05/27/2025 9:25 AM EDT [facility] Ionized Calcium, Arterial 5.1 4.6 - 5.1 mg/dL 05/27/2025 9:25 AM EDT [facility] Lactate, Arterial 0.5 0.5 - 1.6 mmol/L 05/27/2025 9:25 AM EDT [facility] Body Temperature 37.0 Celsius 05/27/2025 9:25 AM EDT [facility] pH, Temp Corrected, Arterial 7.44(H) 7.31 - 7.42 05/27/2025 9:25 AM EDT [facility] pCO2, Temp Corrected, Arterial 36 35 - 48 mm Hg 05/27/2025 9:25 AM EDT [facility] pO2, Temp Corrected, Arterial 229 >70 mm Hg 05/27/2025 9:25 AM EDT [facility] Review Specialist ID Isidro Liliana 05/27/2025 9:25 AM EDT [facility] Blood, Arterial Whole blood specimen / Unknown 05/27/2025 9:24 AM EDT 05/27/2025 9:25 AM EDT us Jose C Nicholson MD LAB POINT OF CARE TE ST DOCKED DEVICE UNSOLICITED RESULTS Final Result [facility] [address] [place] [address] * (ABNORMAL) POCT ACT (05/27/2025 9:21 AM EDT) ACT+ (HIGH RANGE) >600(H) 68 - 600 Seconds 06/14/2025 3:51 AM EDT [facility] Review Specialist ID Liliana Felix 06/14/2025 3:51 AM EDT [facility] ACT Device ID [id number] 06/14/2025 3:51 AM EDT [facility] Comment 06/14/2025 3:51 AM EDT [facility] Comment: ACT performed by staff at point of care. Results are reported immediately to the physician or primary caregiver. The activated clotting time is performed on patients with diverse clinical characteristics and treatment histories. Therefore, expected values are variable and results must be interpreted in the context of each individual patient. Blood Venous blood specimen / Unknown 05/27/2025 9:21 AM EDT 06/14/2025 3:51 AM EDT us Jose C Nicholson MD LAB POINT OF CARE TE ST DOCKED DEVICE UNSOLICITED RESULTS Final Result [facility] [address] LAB [address] [place] [address] * (ABNORMAL) POCT arterial blood gas gem (05/27/2025 7:18 AM EDT) pH, Arterial 7.41 7.31 - 7.42 05/27/2025 7:19 AM EDT [facility] pCO2, Arterial 43 35 - 48 mm Hg 05/27/2025 7:19 AM EDT [facility] pO2, Arterial 62(L) >70 mm Hg 05/27/2025 7:19 AM EDT [facility] SO2, Arterial 91(L) 94 - 98 % 05/27/2025 7:19 AM EDT [facility] Base Excess, Arterial 2.3 -2 - 3 mmol/L 05/27/2025 7:19 AM EDT [facility] HCO3, Arterial 27.3(H) 22 - 26 mmol/L 05/27/2025 7:19 AM EDT [facility] Total Hemoglobin, Arterial, Whole Blood 11.1(L) 11.2 - 15.7 g/dL 05/27/2025 7:19 AM EDT [facility] Hematocrit, Arterial 33.0(L) 34.0 - 45.0 % 05/27/2025 7:19 AM EDT [facility] Sodium, Arterial 136 136 - 145 mmol/L 05/27/2025 7:19 AM EDT [facility] Potassium, Arterial 3.7 3.6 - 4.9 mmol/L 05/27/2025 7:19 AM EDT [facility] Chloride, Whole Blood 101 97 - 107 mmol/L 05/27/2025 7:19 AM EDT [facility] Glucose, Arterial 96 74 - 99 mg/dL 05/27/2025 7:19 AM EDT [facility] Ionized Calcium, Arterial 5.3(H) 4.6 - 5.1 mg/dL 05/27/2025 7:19 AM EDT [facility] Lactate, Arterial 0.9 0.5 - 1.6 mmol/L 05/27/2025 7:19 AM EDT [facility] Body Temperature 37.0 Celsius 05/27/2025 7:19 AM EDT [facility] pH, Temp Corrected, Arterial 7.41 7.31 - 7.42 05/27/2025 7:19 AM EDT [facility] pCO2, Temp Corrected, Arterial 43 35 - 48 mm Hg 05/27/2025 7:19 AM EDT [facility] pO2, Temp Corrected, Arterial 62(L) >70 mm Hg 05/27/2025 7:19 AM EDT [facility] Review Specialist ID Jessica aden, Miguel Ángel 05/27/2025 7:19 AM EDT [facility] Blood, Arterial Whole blood specimen / Unknown 05/27/2025 7:18 AM EDT 05/27/2025 7:19 AM EDT us Jose C Nicholson MD LAB POINT OF CARE TE ST DOCKED DEVICE UNSOLICITED RESULTS Final Result [facility] [address] [place] [address] * QPLUS (05/27/2025 7:17 AM EDT) Clot Time 129 104 - 166 Seconds 05/27/2025 7:31 AM EDT [facility] Clot Time Ratio 1.0 0.8 - 1.2 7:31 AM EDT [facility] Comment:The Clot Time Ratio (CTR) is a calculated parameter. CTR values of 0.8 1.2 are demonstrated to be typical of n ormal patient samples. Samples with CTR values > 1.4 are indicative of prolongation of the intrinsic pathway clotting time, likely due to the influence of unfractionated heparin. POCT Clot Stiffness 25.2 13.0 - 33.2 hectoPascals 05/27/2025 7:31 AM EDT [facility] Platelet Contribution to Clot Stiffnes 22.6 11.9 - 29.8 hectoPascals 05/27/2025 7:31 AM EDT [facility] Fibrinogen Contribution to Clot Stiffness 2.6 1.0 - 3.7 hectoPascals 05/27/2025 7:31 AM EDT [facility] Heparinase Clot Time 130 103 - 153 Seconds 05/27/2025 7:31 AM EDT [facility] Review Specialist ID Gurpreet Arzola 05/27/2025 7:31 AM EDT [facility] Device ID [id number] 05/27/2025 7:31 AM EDT [facility] Whole Blood 05/27/2025 7:17 AM EDT 05/27/2025 7:31 AM EDT us Jose C Nicholson MD LAB POINT OF CARE TE ST DOCKED DEVICE UNSOLICITED RESULTS Final Result Performing Organization Address [facility] Co de Phone Number [facility] [address] [place] [address] * TEG Global Hemostasis with Lysis (05/27/2025 7:16 AM EDT) R, Lysis 5.0 4.6 - 9.1 min 05/27/2025 8:20 AM EDT [facility] MA, Rapid, Lysis 64.6 52.0 - 70.0 mm 05/27/2025 8:20 AM EDT [facility] MA, Fibrinogen, Lysis 19.6 15.0 - 32.0 mm 05/27/2025 8:20 AM EDT [facility] LY30 0.3 0.0 - 2.6 % 05/27/2025 8:20 AM EDT [facility] Blood Arterial blood specimen / Unknown 05/27/2025 7:16 AM EDT 05/27/2025 7:23 AM EDT Comment: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] us Jose C Nicholson MD LAB BLOOD ORDERABLES Final Resu lt Performing Organization Address City/[facility]/ZIP Co de Phone Number [facility] [address] [place] [address] * Fibrinogen, Quantitative (Clottable) (05/27/2025 7:16 AM EDT) Pathologist [facility] Fibrinogen, Quantitative (Clottable) 352 208 - 459 mg/dL LAB COAGULATION METHOD 05/27/2025 7:51 AM EDT [facility] Blood Arterial blood specimen / Unknown 05/27/2025 7:16 AM EDT 05/27/2025 7:24 AM EDT Comment: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] us Jose C Nicholson MD LAB BLOOD ORDERABLES Final Resu lt [facility] [address] [place] [address] * (ABNORMAL) CBC and Differential (05/27/2025 7:16 AM EDT) Pathologist [facility] WBC Count 7.47 3.70 - 10.30 10*3/uL LAB HEMATOLOGY METHOD 05/27/2025 7:37 AM EDT [facility] RBC Count 3.90 3.90 - 5.20 10*6/uL LAB HEMATOLOGY METHOD 05/27/2025 7:37 AM EDT [facility] HGB 11.3 11.2 - 15.7 g/dL LAB HEMATOLOGY METHOD 05/27/2025 7:37 AM EDT [facility] HCT 34.2 34.0 - 45.0 % LAB HEMATOLOGY METHOD 05/27/2025 7:37 AM EDT [facility] Platelet Count 209 155 - 369 10*3/uL LAB HEMATOLOGY METHOD 05/27/2025 7:37 AM EDT [facility] MCV 88 79 - 98 fL LAB HEMATOLOGY METHOD 05/27/2025 7:37 AM EDT [facility] MCH 29.0 26.0 - 32.0 pg LAB HEMATOLOGY METHOD 05/27/2025 7:37 AM EDT [facility] MCHC 33.0 30.7 - 35.5 g/dL LAB HEMATOLOGY METHOD 05/27/2025 7:37 AM EDT [facility] RDW 14.6(H) 11.5 - 14.5 % LAB HEMATOLOGY METHOD 05/27/2025 7:37 AM EDT [facility] MPV 11.2 8.8 - 12.5 fL LAB HEMATOLOGY METHOD 05/27/2025 7:37 AM EDT [facility] nRBC 0.0 <=0.0 per 100 WBCs LAB HEMATOLOGY METHOD 05/27/2025 7:37 AM EDT [facility] Differential Type Automated LAB HEMATOLOGY METHOD 05/27/2025 7:37 AM EDT [facility] Neutrophils % 65 % LAB HEMATOLOGY METHOD 05/27/2025 7:37 AM EDT [facility] Lymphocytes % 23 % LAB HEMATOLOGY METHOD 05/27/2025 7:37 AM EDT [facility] Monocytes % 8 % LAB HEMATOLOGY METHOD 05/27/2025 7:37 AM EDT [facility] Eosinophils % 3 % LAB HEMATOLOGY METHOD 05/27/2025 7:37 AM EDT [facility] Basophils % 1 % LAB HEMATOLOGY METHOD 05/27/2025 7:37 AM EDT [facility] Immature Granulocytes % 0 % LAB HEMATOLOGY METHOD 05/27/2025 7:37 AM EDT [facility] Neutrophils Absolute 4.82 1.60 - 6.10 10*3/uL LAB HEMATOLOGY METHOD 05/27/2025 7:37 AM EDT [facility] Lymphocytes Absolute 1.74 1.20 - 3.90 10*3/uL LAB HEMATOLOGY METHOD 05/27/2025 7:37 AM EDT [facility] Monocytes Absolute 0.61 0.30 - 0.90 10*3/uL LAB HEMATOLOGY METHOD 05/27/2025 7:37 AM EDT [facility] Eosinophils Absolute 0.23 0.00 - 0.50 10*3/uL LAB HEMATOLOGY METHOD 05/27/2025 7:37 AM EDT [facility] Basophils Absolute 0.04 0.00 - 0.10 10*3/uL LAB HEMATOLOGY METHOD 05/27/2025 7:37 AM EDT [facility] Immature Granulocytes Absolute 0.03 0.00 - 0.06 10*3/uL LAB HEMATOLOGY METHOD 05/27/2025 7:37 AM EDT [facility] Blood Arterial blood specimen / Unknown 05/27/2025 7:16 AM EDT 05/27/2025 7:26 AM EDT Comment: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 us Jose C Nicholson MD LAB BLOOD ORDERABLES Final Resu lt Performing Organization Address City/[facility]/ZIP Co de Phone Number [facility] [address] [place] [address] * POCT ACT (05/27/2025 7:14 AM EDT) ACT+ (HIGH RANGE) 120 68 - 600 Seconds 06/14/2025 3:51 AM EDT [facility] Review Specialist ID Joaquin Guardado 06/14/2025 3:51 AM EDT [facility] ACT Device ID [id number] 06/14/2025 3:51 AM EDT [facility] Comment 06/14/2025 3:[address] [facility] [place] Comment: ACT performed by staff at point of care. Results are reported immediately to the physician or primary caregiver. The activated clotting time is performed on patients with diverse clinical characteristics and treatment histories. Therefore, expected values are variable and results must be interpreted in the context of each individual patient. Blood Venous blood specimen / Unknown 05/27/2025 7:14 AM EDT 06/14/2025 3:51 AM EDT us Jose C Nicholson MD LAB POINT OF CARE TE ST DOCKED DEVICE UNSOLICITED RESULTS Final Result Performing Organization Address City/[facility]/ZIP Co de Phone Number [facility] [address] LAB [address] [place] [address] * Prepare Fresh Frozen Plasma: 2 Units (05/27/2025 7:08 AM EDT) Product Code [id number] CH BLOO D BANK Dispense Status Transfused BLOOD BANK Blood Expiration Date [id number] BLOOD BANK Unit Number [id number] CH B LOOD BANK Product Blood Type 6200 CH BLOOD BANK Blood Type A+ CH BLOOD BANK Product Code [id number] CH BLOO D BANK Dispense Status Transfused CH BLOOD BANK Blood Expiration Date [id number] BLOOD BANK Unit Number [id number] [facility] B LOOD BANK Product Blood Type 6200 CH BLOOD BANK Blood Type A+ CH BLOOD BANK Blood Venous blood specimen / Unknown us Jose C Nicholson MD BLOOD BANK PRODUCT ORDERABLES E dited Result - Final BLOOD BANK [address] [place] [address], * Prepare Leukocyte Reduced RBC: 4 Units (05/27/2025 7:08 AM EDT) Product Code [id number] [facility] BLOO D BANK Dispense Status Transfused CH BLOOD BANK Blood Expiration Date [id number] BLOOD BANK Unit Number [id number] [facility] B LOOD BANK Product Blood Type 6200 CH BLOOD BANK Blood Type A+ CH BLOOD BANK Crossmatch Compatible CH BLOOD BANK Product Code [id number] [facility] BLOO D BANK Dispense Status Transfused CH BLOOD BANK Blood Expiration Date [id number] BLOOD BANK Unit Number [id number] [facility] B LOOD BANK Product Blood Type 6200 CH BLOOD BANK Blood Type A+ CH BLOOD BANK Crossmatch Compatible CH BLOOD BANK Product Code [id number] BLOO D BANK Dispense Status Transfused CH BLOOD BANK Blood Expiration Date [id number] BLOOD BANK Unit Number [id number] [facility] B LOOD BANK Product Blood Type 6200 CH BLOOD BANK Blood Type A+ CH BLOOD BANK Crossmatch Compatible CH BLOOD BANK Product Code [id number] BLOO D BANK Dispense Status Transfused CH BLOOD BANK Blood Expiration Date [id number] BLOOD BANK Unit Number [id number] CH B LOOD BANK Product Blood Type 6200 CH BLOOD BANK Blood Type A+ CH BLOOD BANK Crossmatch Compatible CH BLOOD BANK Other us Jose C Nicholson MD BLOOD BANK PRODUCT ORDERABLES F inal Result Performing Organization Address [facility] Co de Phone Number BLOOD BANK [address] * Type and Screen (05/27/2025 6:28 AM EDT) ABO/Rh A Positive 05/27/2025 6:07 AM EDT BLOOD BANK Antibody Screen Negative 05/27/2025 6:07 AM EDT BLOOD BANK Specimen Expiration 05/30/2025 23:59 05/27/2025 6:07 AM EDT BLOOD BANK Blood Venous blood specimen / Unknown Venipuncture / Unknown 05/27/2025 6:28 AM EDT 05/27/2025 6:46 AM EDT us Jose C Nicholson MD LAB BLOOD BANK TEST ORDERABLES Final Result Performing Organization Address [facility] de Phone Number BLOOD BANK [address] documented in this encounter Visit Diagnoses Diagnosis 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) Chronic obstructive pulmonary disease, unspecified COPD type (CMS/HCC) 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 Hyperlipidemia, unspecified hyperlipidemia type Poorly-controlled hypertension H/O transcarotid artery revascularization (TCAR) Cardiac volume overload Agitation requiring sedation protocol Peripheral vascular disease (CMS/HCC) Unspecified peripheral vascular disease BMI 25.0-25.9,adult Cerebral venous sinus thrombosis Delirium due to multiple etiologies History of right common carotid artery stent placement Left upper extremity swelling Atrial fibrillation, unspecified type (CMS/HCC) Hypokalemia Hypopotassemia Asymptomatic stenosis of right carotid artery Pleural effusion Unspecified pleural effusion Leukocytosis, unspecified type Poorly-controlled hypertension Hyperlipidemia Other and unspecified hyperlipidemia 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) COPD (chronic obstructive pulmonary disease) Chronic airway obstruction, not elsewhere classified Cerebral venous sinus thrombosis 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 History of right common carotid artery stent placement H/O transcarotid artery revascularization (TCAR) Hypokalemia Hypopotassemia Cardiac volume overload Leukocytosis Leukocytosis, unspecified Agitation requiring sedation protocol Delirium due to multiple etiologies Left upper extremity swelling A-fib Atrial fibrillation Pleural effusion Unspecified pleural effusion Ascending aortic aneurysm (CMS/HCC) Thoracic aneurysm without mention of rupture S/P ascending aortic aneurysm repair Acute blood loss anemia Acute posthemorrhagic anemia Thrombocytosis Essential thrombocythemia Hypocalcemia Hypophosphatemia Disorders of phosphorus metabolism Acute postoperative pain Other acute postoperative pain Mood disorder (CMS/HCC) Unspecified episodic mood disorder Depression Depressive disorder, not elsewhere classified Anxiety Anxiety state, unspecified Thrombocytopenia (CMS/HCC) Unspecified thrombocytopenia Hyponatremia Hyposmolality and/or hyponatremia Hypermagnesemia Disorders of magnesium metabolism Hyperkalemia Hyperpotassemia Hypernatremia Hyperosmolality and/or hypernatremia Transient hyperglycemia post procedure Other abnormal glucose documented in this encounter Admitting Diagnoses Diagnosis 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) documented in this encounter Administered Medications Inactive Administered Medications - up to 3 most recent administrations Medication Order MAR Action Action Date Dose Rate Site acetaminophen (Tylenol) tablet 500 mg 500 mg, Nasogastric, Every 6 hours scheduled, First dose (after last modification) on Mon06/03/25 at 1200, Until Discontinued, Routine, Recovery(Phase II-Outpatient)/On Unit(Inpatient) Given 06/03/2025 12:14 PM EDT 500 mg acetaminophen (Tylenol) tablet 500 mg 500 mg, Oral, Every 6 hours scheduled, First dose (after last modification) on Mon06/03/25 at 1800, Until Discontinued, Routine, Recovery(Phase II-Outpatient)/On Unit(Inpatient) Given 06/04/2025 6:39 AM EDT 500 mg Given 06/03/2025 5:50 PM EDT 500 mg acetaminophen (Tylenol) tablet 650 mg 650 mg, Nasogastric, Every 6 hours scheduled, First dose (after last modification) on Mon06/02/25 at 1245, Until Discontinued, Routine, Recovery(Phase II-Outpatient)/On Unit(Inpatient) Given 06/03/2025 5:18 AM EDT 650 mg Given 06/03/2025 12:05 AM EDT 650 mg Given 06/02/2025 5:49 PM EDT 650 mg albumin human 5 % infusion 12.5 g 12.5 g, Intravenous, Once, 1 dose, On [place] 05/29/25 at 1515, Routine New Bag 05/29/2025 2:31 PM EDT 12.5 g albumin human 5 % infusion 250 mL 250 mL, Intravenous, Every 30 min PRN, Starting on Mon05/27/25 at 1847, Until Mon05/28/25 at 1846, Routine, Recovery(Phase II-Outpatient)/On Unit(Inpatient), fluid resuscitation New Bag 05/28/2025 11:57 AM EDT 250 mL New Bag 05/28/2025 11:33 AM EDT 250 mL New Bag 05/27/2025 9:59 PM EDT 250 mL ALPRAZolam (Xanax) tablet 0.25 mg 0.25 mg, Oral, Once, 1 dose, On Mon05/28/25 at 1115, Routine Given 05/28/2025 10:41 AM EDT 0.25 mg ALPRAZolam (Xanax) tablet 0.25 mg 0.25 mg, Oral, Every 8 hours, First dose (after last reorder) on Mon05/28/25 at 1815, Until Discontinued, Routine Given 05/29/2025 9:58 AM EDT 0.25 mg Given 05/29/2025 1:17 AM EDT 0.25 mg Given 05/28/2025 5:40 PM EDT 0.25 mg ALPRAZolam (Xanax) tablet 0.25 mg 0.25 mg, Oral, 2 times daily, First dose (after last modification) on Mon05/29/25 at 2100, Until Discontinued, Routine Given 06/01/2025 8:39 AM EDT 0.25 mg Given 05/31/2025 8:27 PM EDT 0.25 mg Given 05/31/2025 9:20 AM EDT 0.25 mg ALPRAZolam (Xanax) tablet 0.25 mg 0.25 mg, Nasogastric, 2 times daily, First dose (after last modification) on Mon06/01/25 at 2100, Until Discontinued, Routine Given 06/02/2025 8:23 PM EDT 0.25 mg Given 06/02/2025 8:25 AM EDT 0.25 mg Given 06/01/2025 8:07 PM EDT 0.25 mg ALPRAZolam (Xanax) tablet 0.25 mg 0.25 mg, Oral, 2 times daily, First dose (after last modification) on Mon06/03/25 at 2100, Until Discontinued, Routine Given 06/07/2025 8:12 AM EDT 0.25 mg Given 06/06/2025 8:22 PM EDT 0.25 mg Given 06/04/2025 8:09 PM EDT 0.25 mg apixaban (Eliquis) tablet 5 mg 5 mg, Oral, 2 times daily, First dose on Mon06/06/25 at 1100, Until Discontinued, Routine Given 06/07/2025 8:12 AM EDT 5 mg Given 06/06/2025 8:22 PM EDT 5 mg Given 06/06/2025 11:53 AM EDT 5 mg aspirin chewable tablet 81 mg 81 mg, Oral, Daily, First dose on Mon05/28/25 at 1115, Until Discontinued, Routine Given 06/01/2025 8:23 AM EDT 81 mg Given 05/31/2025 9:20 AM EDT 81 mg Given 05/30/2025 8:16 AM EDT 81 mg aspirin chewable tablet 81 mg 81 mg, Nasogastric, Daily, First dose (after last modification) on Mon06/02/25 at 0900, Until Discontinued, Routine Given 06/03/2025 8:20 AM EDT 81 mg Given 06/02/2025 8:22 AM EDT 81 mg aspirin chewable tablet 81 mg 81 mg, Oral, Daily, First dose (after last modification) on Mon06/04/25 at 0900, Until Discontinued, Routine Given 06/05/2025 8:38 AM EDT 81 mg Given 06/04/2025 9:20 AM EDT 81 mg [id number] (Excedrin Migraine) 250-250-65 MG per tablet 1 tablet 1 tablet, Oral, Every 6 hours PRN, Starting on Mon06/05/25 at 0946, Until Mon06/06/25 at 1012, Routine, headaches Given 06/05/2025 11:46 AM EDT 1 table t atorvastatin (Lipitor) tablet 20 mg 20 mg, Oral, Nightly, First dose on Mon05/28/25 at 2100, Until Discontinued, Routine Given 05/31/2025 8:27 PM EDT 20 mg Given 05/30/2025 8:22 PM EDT 20 mg Given 05/29/2025 9:23 PM EDT 20 mg atorvastatin (Lipitor) tablet 20 mg 20 mg, Nasogastric, Nightly, First dose (after last modification) on Mon06/01/25 at 2100, Until Discontinued, Routine Given 06/02/2025 8:23 PM EDT 20 mg Given 06/01/2025 8:07 PM EDT 20 mg atorvastatin (Lipitor) tablet 20 mg 20 mg, Oral, Nightly, First dose (after last modification) on Mon06/03/25 at 2100, Until Discontinued, Routine Given 06/06/2025 8:24 PM EDT 20 mg Given 06/04/2025 8:09 PM EDT 20 mg Given 06/03/2025 8:24 PM EDT 20 mg barium sulfate (Varibar Pudding) 40 % oral paste 10 mL 10 mL, Oral, Once in imaging, 1 dose, Starting on Mon06/03/25 at 1054, Until Mon06/03/25 at 1126, Routine, Imaging Protocol Orders Given 06/03/2025 11:26 AM EDT 10 mL barium sulfate (Varibar THIN Liquid) 40 % suspension 140 mL 140 mL, Oral, Once in imaging, 1 dose, Starting on Mon06/03/25 at 1054, Until Mon06/03/25 at 1126, Routine, Imaging Protocol Orders Given 06/03/2025 11:26 AM EDT 140 mL bisacodyl (Dulcolax) suppository 10 mg 10 mg, Rectal, Daily PRN, Starting on Mon06/01/25 at 1115, Until Mon06/03/25 at 0920, Routine, constipation Given 06/01/2025 1:48 PM EDT 10 mg bisacodyl (Dulcolax) suppository 10 mg 10 mg, Rectal, Daily PRN, Starting on Mon06/03/25 at 0918, Until 06/07/25 at 1412, Routine, constipation, first line agent if no bowel movement for 48h calcium chloride 10 % injection - Pyxis Override Pull 1 dose, Starting on Mon05/28/25 at 1204, Until Mon05/28/25 at 1204 calcium chloride 10 % injection 1 g 1 g, Intravenous, Once, 1 dose, On Mon05/28/25 at 1345, Routine Given 05/28/2025 12:04 PM EDT 1 g calcium chloride 10 % injection 1 g 1 g, Intravenous, Once, 1 dose, On Marian 05/29/25 at 1515, Routine Given 05/29/2025 2:46 PM EDT 1 g calcium gluconate 1 g in sodium chloride 0.9% 100 mL IVPB (vial adapter required) 1 g, Intravenous, Once, 1 dose, On Mon05/28/25 at 1000, at 240 mL/hr, Administer over 30 Minutes, Routine New Bag 05/28/2025 9:11 AM EDT 1 g 240 mL/hr ceFAZolin (Ancef) injection 2 g 2 g, Intravenous, Every 8 hours, 3 doses, First dose on Mon05/27/25 at 1945, Last dose on Mon05/28/25 at 1145, Routine, Recovery(Phase II-Outpatient)/On Unit(Inpatient) Given 05/28/2025 11:15 AM EDT 2 g Given 05/28/2025 4:26 AM EDT 2 g Given 05/27/2025 8:34 PM EDT 2 g clevidipine (Cleviprex) 0.5 MG/ML infusion 1-32 mg/hr (2-64 mL/hr), Intravenous, Titrated, Starting on Mon05/27/25 at 2000, Until Mon05/28/25 at 1019, STATIndications:Hypertension Restarted 05/28/2025 4:42 AM EDT 2 mg/hr 4 mL/hr Rate/Dose Change 05/28/2025 3:11 AM EDT 2 mg/hr 4 mL/hr Rate/Dose Change 05/28/2025 3:04 AM EDT 4 mg/hr 8 mL/hr clopidogrel (Plavix) tablet 75 mg 75 mg, Oral, Daily, First dose on Mon06/02/25 at 0900, Until Discontinued, Routine Given 06/03/2025 8:20 AM EDT 75 mg Given 06/02/2025 8:22 AM EDT 75 mg clopidogrel (Plavix) tablet 75 mg 75 mg, Oral, Daily, First dose (after last modification) on Mon06/04/25 at 0900, Until Discontinued, Routine Given 06/07/2025 8:12 AM EDT 75 mg Given 06/06/2025 8:06 AM EDT 75 mg Given 06/05/2025 8:38 AM EDT 75 mg coagulation factor VIIa (recomb) (NovoSeven RT) injection 2,000 mcg 2,000 mcg (rounded from 2,136 mcg = 30 mcg/kg 71.2 kg), Intravenous, Once, 1 dose, On Mon05/27/25 at 1815, Routine Given 05/27/2025 4:56 PM EDT 2,000 mcg 60 mL/hr coagulation factor VIIa (recomb) (NovoSeven RT) injection 2,000 mcg 2,000 mcg (rounded from 2,136 mcg = 30 mcg/kg 71.2 kg), Intravenous, Once, 1 dose, On Mon05/27/25 at 1815, Routine Given 05/27/2025 4:41 PM EDT 2,000 mcg 60 mL/hr coagulation factor VIIa (recomb) (NovoSeven RT) injection 2,000 mcg 2,000 mcg (rounded from 2,136 mcg = 30 mcg/kg 71.2 kg), Intravenous, Once, 1 dose, On Mon05/27/25 at 1815, Routine Given 05/27/2025 4:26 PM EDT 2,000 mcg 60 mL/hr dexmedetomidine in NS (Precedex) 4 mcg/mL infusion 0.4-1.4 mcg/kg/hr 71 kg Dosing weight (7.1-24.85 mL/hr), 4 mcg/mL, Intravenous, Titrated, Starting on Mon05/28/25 at 1115, Until Marian 05/29/25 at 0737, Routine Rate Change - Dual Sign 05/28/2025 11:11 AM EDT 1 mcg/kg/hr 17.75 mL/hr New Bag 05/28/2025 11:01 AM EDT 0.8 mcg/kg/hr 14.2 mL/h r Rate/Dose Verify 05/28/2025 11:00 AM EDT 0.6 mcg/kg/hr 10. 65 mL/hr dexmedetomidine in NS (Precedex) 4 mcg/mL infusion 0.4-1.4 mcg/kg/hr 71 kg Dosing weight (7.1-24.85 mL/hr), 4 mcg/mL, Intravenous, Titrated, Starting on Mon05/30/25 at 0800, Until 05/31/25 at 0600, Routine Rate/Dose Verify 05/31/2025 5:00 AM EDT 0.4 mcg/kg/hr 7.1 mL/hr Rate/Dose Verify 05/31/2025 4:00 AM EDT 0.4 mcg/kg/hr 7.1 mL/hr Rate/Dose Verify 05/31/2025 3:00 AM EDT 0.4 mcg/kg/hr 7.1 mL/hr docusate sodium (Colace) 50 MG/5ML oral liquid 100 mg 100 mg, Oral, 2 times daily, First dose on Mon05/27/25 at 2315, Until Discontinued, Routine Given 06/01/2025 8:22 AM EDT 100 mg Given 05/31/2025 8:27 PM EDT 100 mg Given 05/31/2025 9:20 AM EDT 100 mg docusate sodium (Colace) 50 MG/5ML oral liquid 100 mg 100 mg, Nasogastric, 2 times daily, First dose (after last modification) on Mon06/01/25 at 2100, Until Discontinued, Routine Given 06/03/2025 8:20 AM EDT 100 mg Given 06/02/2025 8:23 PM EDT 100 mg Given 06/02/2025 8:22 AM EDT 100 mg docusate sodium (Colace) capsule 100 mg 100 mg, Oral, 2 times daily, First dose on Mon06/03/25 at 2100, Until Discontinued, Routine Given 06/07/2025 8:12 AM EDT 100 mg Given 06/06/2025 8:22 PM EDT 100 mg Given 06/06/2025 8:06 AM EDT 100 mg electrolyte (Isolyte-S or Plasmalyte-A) IV solution 250 mL 250 mL, Intravenous, Once, 1 dose, On Mon05/29/25 at 0100, Routine Given 05/29/2025 12:28 AM EDT 250 mL enoxaparin (Lovenox) syringe 40 mg 40 mg, Subcutaneous, Daily, First dose on Mon05/28/25 at 1115, Until Discontinued, Routine Given 05/28/2025 10:41 AM EDT 40 mg Left Upper Abdomen enoxaparin (Lovenox) syringe 40 mg 40 mg, Subcutaneous, Daily, First dose on Mon06/01/25 at 1145, Until Discontinued, Routine Given 06/06/2025 8:06 AM EDT 40 mg Left Lower Abdomen Given 06/05/2025 8:38 AM EDT 40 mg Le ft Lower Abdomen Given 06/04/2025 9:19 AM EDT 40 mg Le ft Lower Abdomen furosemide (Lasix) injection 20 mg 20 mg, Intravenous, Once, 1 dose, On Marian 05/29/25 at 0830, Routine Given 05/29/2025 8:13 AM EDT 20 mg furosemide (Lasix) injection 40 mg 40 mg, Intravenous, Once, 1 dose, On Mon05/28/25 at 0900, Routine Given 05/28/2025 8:46 AM EDT 40 mg furosemide (Lasix) tablet 20 mg 20 mg, Oral, Daily, 2 doses, First dose (after last modification) on Mon05/30/25 at 1445, Last dose on Mon05/31/25 at 0900, Routine Given 05/31/2025 9:24 AM EDT 20 mg Given 05/30/2025 2:06 PM EDT 20 mg furosemide (Lasix) tablet 20 mg 20 mg, Nasogastric, Daily, First dose on 06/01/25 at 0900, Until Discontinued, Routine Given 06/03/2025 8:20 AM EDT 20 mg Given 06/02/2025 8:25 AM EDT 20 mg Given 06/01/2025 9:53 AM EDT 20 mg furosemide (Lasix) tablet 20 mg 20 mg, Oral, Daily, First dose (after last modification) on Mon06/04/25 at 0900, Until Discontinued, Routine Given 06/07/2025 8:24 AM EDT 20 mg Given 06/06/2025 8:06 AM EDT 20 mg Given 06/05/2025 8:38 AM EDT 20 mg guanFACINE (Tenex) tablet 1 mg 1 mg, Oral, 2 times daily, First dose on Mon05/30/25 at 1745, Until Discontinued, Routine Given 06/01/2025 8:22 AM EDT 1 mg Given 05/31/2025 8:27 PM EDT 1 mg Given 05/31/2025 9:20 AM EDT 1 mg guanFACINE (Tenex) tablet 1 mg 1 mg, Nasogastric, 2 times daily, First dose (after last modification) on 06/01/25 at 2100, Until Discontinued, Routine Given 06/01/2025 8:07 PM EDT 1 mg guanFACINE (Tenex) tablet 1 mg 1 mg, Nasogastric, Nightly, 2 doses, First dose (after last modification) on Mon06/02/25 at 2100, Last dose on Mon06/03/25 at 2100, Routine Given 06/03/2025 8 :24 PM EDT 1 mg Given 06/02/2025 8:23 PM EDT 1 mg haloperidol lactate (Haldol) injection 2 mg 2 mg, Intravenous, Every 10 min PRN, 3 doses, Starting on Mon05/30/25 at 0618, Until Mon05/30/25 at 0715, Routine, agitation Given by Other 05/30/2025 7:15 AM EDT 2 mg Given 05/30/2025 6:36 AM EDT 2 mg Given 05/30/2025 6:25 AM EDT 2 mg hydrALAZINE (Apresoline) injection 10 mg 10 mg, Intravenous, Every 6 hours PRN, Starting on Mon05/30/25 at 0554, Until Mon06/01/25 at 1115, Routine, SBP >140 Given 05/30/2025 6:47 AM EDT 10 mg hydrALAZINE (Apresoline) tablet 10 mg 10 mg, Oral, 3 times daily, First dose on Mon05/27/25 at 2245, Until Discontinued, Routine Given 05/28/2025 8:57 AM EDT 10 mg Given 05/27/2025 10:55 PM EDT 10 mg HYDROcodone-acetaminophen ([place]) 5-325 MG per tablet 10 mg of hydrocodone 10 mg of hydrocodone, Oral, Every 6 hours PRN, Starting on Mon06/02/25 at 1144, Until 06/07/25 at 1412, Routine, severe pain Given 06/05/2025 1:24 PM EDT 10 mg of hydrocodone Given 06/05/2025 5:37 AM EDT 10 mg of hydrocodone Given 06/04/2025 2:22 PM EDT 10 mg of hydrocodone HYDROcodone-acetaminophen ([place]) 5-325 MG per tablet 5 mg of hydrocodone 5 mg of hydrocodone, Oral, Every 6 hours PRN, Starting on Mon06/02/25 at 1144, Until Mon06/07/25 at 1412, Routine, moderate pain Given 06/07/2025 10:36 AM EDT 5 mg of hydrocodone Given 06/06/2025 8:28 PM EDT 5 mg of hydrocodone Given 06/06/2025 12:39 PM EDT 5 mg of hydrocodone HYDROmorphone (Dilaudid) bolus from bag 0.25 mg, Intravenous, Every 10 min PRN, Starting on Mon05/27/25 at 2251, Until Marian 05/29/25 at 1438, Administer over 2 Minutes, Routine, moderate pain, CPOT (3-4) Bolus from Bag 05/29/2025 1:40 PM EDT 0.25 mg Bolus from Bag 05/28/2025 6:18 PM EDT 0.25 mg Bolus from Bag 05/28/2025 11:43 AM EDT 0.25 mg HYDROmorphone (Dilaudid) bolus from bag 0.5 mg, Intravenous, Every 10 min PRN, Starting on Mon05/27/25 at 2251, Until [facility] 05/29/25 at 1438, Administer over 2 Minutes, Routine, CPOT (5-8) Bolus from Bag 05/29/2025 12:02 PM EDT 0.5 mg Bolus from Bag 05/29/2025 11:52 AM EDT 0.5 mg Bolus from Bag 05/29/2025 8:44 AM EDT 0.5 mg HYDROmorphone (Dilaudid) injection 0.25 mg 0.25 mg, Intravenous, Every 2 hour PRN, Starting on Mon05/27/25 at 1906, Until Mon05/27/25 at 2251, Routine, mild - moderate pain Given 05/27/2025 9:56 PM EDT 0.25 mg Given 05/27/2025 8:40 PM EDT 0.25 mg HYDROmorphone (Dilaudid) injection 0.5 mg 0.5 mg, Intravenous, Every 2 hour PRN, Starting on [facility] 05/29/25 at 1438, Until [place] 06/01/25 at 1116, Routine, severe pain Given 06/01/2025 5:42 AM EDT 0.5 mg Given 06/01/2025 2:03 AM EDT 0.5 mg Given 05/30/2025 11:07 PM EDT 0.5 mg HYDROmorphone (Dilaudid) injection 0.5 mg 0.5 mg, Intravenous, Every 4 hours PRN, Starting on Mon06/01/25 at 1115, Until Mon06/02/25 at 1145, Routine, severe pain Given 06/02/2025 8:25 AM EDT 0.5 mg Given 06/02/2025 4:28 AM EDT 0.5 mg Given 06/01/2025 8:07 PM EDT 0.5 mg hydromorphone 20 mg in NS 100 mL infusion (200 mcg/mL) 0.25-2 mg/hr (1.25-10 mL/hr), 0.2 mg/mL, Intravenous, Titrated, Starting on Mon05/27/25 at 2345, Until Mon05/29/25 at 1438, Routine Rate/Dose Verify 05/29/2025 2:00 PM EDT 0.25 mg/hr 1.25 mL/hr Rate/Dose Verify 05/29/2025 1:00 PM EDT 0.25 mg/hr 1.25 mL /hr Rate/Dose Verify 05/29/2025 12:00 PM EDT 0.25 mg/hr 1.25 m L/hr hydrOXYzine pamoate (Vistaril) capsule 25 mg 25 mg, Oral, Every 6 hours PRN, Starting on Mon05/28/25 at 0833, Until 06/07/25 at 1412, Routine, anxiety Given 05/30/2025 11:09 PM EDT 25 mg Given 05/29/2025 3:14 PM EDT 25 mg Given 05/29/2025 8:15 AM EDT 25 mg iohexol (OMNIPaque) 350 MG/ML injection 100 mL 100 mL, Intravenous, Once in imaging, 1 dose, Starting on Mon06/05/25 at 2342, Until Mon06/06/25 at 0042, Routine, Imaging Protocol Orders Given 06/06/2025 12:42 AM EDT 100 mL ipratropium-albuterol (Duo-Neb) 0.5-2.5 mg/3 mL nebulizer solution 3 mL 3 mL, Nebulization, Every 4 hours, First dose (after last modification) on Mon05/29/25 at 2000, Until Discontinued, Routine Given 06/03/2025 8:26 AM EDT 3 mL Given 06/03/2025 4:46 AM EDT 3 mL Given 06/03/2025 12:26 AM EDT 3 mL ipratropium-albuterol (Duo-Neb) 0.5-2.5 mg/3 mL nebulizer solution 3 mL 3 mL, Nebulization, Every 4 hours PRN, Starting on Mon06/03/25 at 0930, Until 06/07/25 at 1412, Routine, wheezing, shortness of breath ipratropium-albuterol (Duo-Neb) 0.5-2.5 mg/3 mL nebulizer solution 3 mL 3 mL, Nebulization, Every 4 hours while awake, 22 doses, First dose (after last modification) on Mon06/04/25 at 2000, Last dose on Mon06/09/25 at 0000, Routine Given 06/07/2025 9:00 AM EDT 3 mL Given 06/06/2025 8:20 PM EDT 3 mL Given 06/05/2025 3:56 PM EDT 3 mL Nick powder 1 packet 1 packet, Oral, 2 times daily, First dose on Mon06/04/25 at 2100, Until Discontinued, Routine Given 06/07/2025 8:12 AM EDT 1 packet Given 06/06/2025 8:07 AM EDT 1 packet Given 06/05/2025 9:40 AM EDT 1 packet labetalol (Normodyne,Trandate) injection 10 mg 10 mg, Intravenous, Every 4 hours PRN, Starting on Mon05/30/25 at 0555, Until Mon06/02/25 at 1145, Routine, SBP >140 Given 05/31/2025 6:32 AM EDT 10 mg Given 05/30/2025 6:09 AM EDT 10 mg labetalol (Normodyne,Trandate) injection 10 mg 10 mg, Intravenous, Every 4 hours PRN, Starting on Mon06/05/25 at 2228, Until 06/07/25 at 1412, Routine, high blood pressure, SBP>140 Given 06/05/2025 11:58 PM EDT 10 mg labetalol (Normodyne,Trandate) injection 20 mg 20 mg, Intravenous, Every 4 hours PRN, Starting on Marian 06/05/25 at 2229, Until 06/07/25 at 1412, Routine, high blood pressure, sbp >160 lactated Ringer's bolus 250 mL 250 mL, Intravenous, Once, 1 dose, On 06/01/25 at 0030, Administer over 2 Hours, Routine Rate/Dose Verify 06/01/2025 2:00 AM EDT 125 mL/hr Rate/Dose Verify 06/01/2025 1:00 AM EDT 125 mL/ hr New Bag 06/01/2025 12:27 AM EDT 250 mL 125 mL/hr magnesium hydroxide (Milk of Magnesia) 400 MG/5ML suspension 10 mL 10 mL, Oral, Once, 1 dose, On Mon06/01/25 at 1030, Routine Given 06/01/2025 9:53 AM EDT 10 mL magnesium hydroxide (Milk of Magnesia) 400 MG/5ML suspension 30 mL 30 mL, Oral, Once, 1 dose, On Mon05/30/25 at 0015, Routine Given 05/29/2025 11:48 PM EDT 30 mL magnesium sulfate IVPB 2 g 2 g, Intravenous, Once, 1 dose, On Mon05/31/25 at 0900, Routine New Bag 05/31/2025 9:19 AM EDT 2 g 25 mL/hr magnesium sulfate IVPB 2 g 2 g, Intravenous, Once, 1 dose, On Mon06/03/25 at 1045, Routine New Bag 06/03/2025 12:14 PM EDT 2 g 25 mL/hr magnesium sulfate IVPB 2 g 2 g, Intravenous, Once, 1 dose, On Mon06/06/25 at 0000, Routine New Bag 06/05/2025 11:14 PM EDT 2 g 25 mL/hr magnesium sulfate IVPB 4 g 4 g, Intravenous, Once, 1 dose, On Mon05/31/25 at 2030, Routine Rate/Dose Verify 06/01/2025 12:00 AM EDT 25 mL/hr Rate/Dose Verify 05/31/2025 11:00 PM EDT 25 mL/ hr Rate/Dose Verify 05/31/2025 10:00 PM EDT 25 mL/ hr metoprolol tartrate (Lopressor) split tablet 12.5 mg 12.5 mg, Nasogastric, 2 times daily, First dose on 05/31/25 at 0900, Until Discontinued, Routine Given 05/31/2025 9:20 AM EDT 12.5 mg metoprolol tartrate (Lopressor) split tablet 12.5 mg 12.5 mg, Oral, Once, 1 dose, On 05/31/25 at 1115, Routine Given 05/31/2025 12:04 PM EDT 12.5 mg metoprolol tartrate (Lopressor) split tablet 37.5 mg 37.5 mg, Nasogastric, 2 times daily, First dose (after last modification) on [place] 06/01/25 at 2100, Until Discontinued, Routine Given 06/03/2025 8:20 AM EDT 37.5 mg Given 06/02/2025 8:23 PM EDT 37.5 mg Given 06/02/2025 8:22 AM EDT 37.5 mg metoprolol tartrate (Lopressor) split tablet 37.5 mg 37.5 mg, Oral, 2 times daily, First dose (after last modification) on 06/03/25 at 2100, Until Discontinued, Routine Given 06/05/2025 8:38 AM EDT 37.5 mg Given 06/04/2025 8:09 PM EDT 37.5 mg Given 06/04/2025 9:20 AM EDT 37.5 mg metoprolol tartrate (Lopressor) tablet 25 mg 25 mg, Nasogastric, 2 times daily, First dose (after last modification) on 05/31/25 at 2100, Until Discontinued, Routine Given 06/01/2025 8:39 AM EDT 25 mg Given 05/31/2025 8:27 PM EDT 25 mg metoprolol tartrate (Lopressor) tablet 25 mg 25 mg, Oral, 2 times daily, First dose (after last modification) on Marian 06/05/25 at 2100, Until Discontinued, Routine Given 06/07/2025 8:12 AM EDT 25 mg Given 06/06/2025 8:24 PM EDT 25 mg Given 06/06/2025 8:06 AM EDT 25 mg midazolam (Versed) 1 MG/ML injection - Pyxis Override Pull 1 dose, Starting on Mon05/28/25 at 1149, Until Mon05/28/25 at 1150 Given 05/28/2025 11:50 AM EDT 1 mg multivitamin tablet 1 tablet 1 tablet, Oral, Daily, First dose on Mon05/29/25 at 1530, Until Discontinued, Routine Given 06/01/2025 8:22 AM EDT 1 tablet Given 05/31/2025 9:20 AM EDT 1 tablet Given 05/30/2025 8:16 AM EDT 1 tablet multivitamin tablet 1 tablet 1 tablet, Nasogastric, Daily, First dose (after last modification) on Mon06/02/25 at 0900, Until Discontinued, Routine Given 06/03/2025 8:19 AM EDT 1 tablet Given 06/02/2025 8:22 AM EDT 1 tablet mupirocin (Bactroban) 2 % ointment 1 Application Each Nostril, 2 times daily, 8 doses, First dose on Mon05/27/25 at 2100, Last dose on Mon05/31/25 at 0900, Routine Given 05/31/2025 9:20 AM EDT 1 Ap plication Given 05/30/2025 8:22 PM EDT 1 Application Given 05/30/2025 8:17 AM EDT 1 Application nitroglycerin (Tridil) 50 mg in 250 mL D5W (200 mcg/mL) infusion 0-2 mcg/kg/min 71.2 kg (0-42.72 mL/hr), 200 mcg/mL, Intravenous, Titrated, Starting on Mon05/27/25 at 2000, Until Mon05/28/25 at 1020, STAT Rate/Dose Verify 05/28/2025 10:00 AM EDT 0.2 mcg/kg/min 4.27 mL/hr New Bag 05/28/2025 9:55 AM EDT 0.2 mcg/kg/min 4.27 mL/h r Rate/Dose Verify 05/28/2025 8:00 AM EDT 0.2 mcg/kg/min 4.2 7 mL/hr nitroglycerin (Tridil) 50 mg in 250 mL D5W (200 mcg/mL) infusion 0-2 mcg/kg/min 71 kg Dosing weight (0-42.6 mL/hr), 200 mcg/mL, Intravenous, Titrated, Starting on Mon05/28/25 at 1115, Until Mon05/29/25 at 0737, STAT Rate/Dose Verify 05/29/2025 6:00 AM EDT 0.2 mcg/min 0.06 mL/hr Restarted 05/29/2025 5:00 AM EDT 0.2 mcg/min 0.06 mL/hr Rate/Dose Change 05/28/2025 12:40 PM EDT 0.5 mcg/kg/min 10 .65 mL/hr norepinephrine 8 mg/250 mL (0.032 mg/mL) infusion 0-0.4 mcg/kg/min 71 kg Dosing weight (0-53.25 mL/hr), 0.032 mg/mL, Intravenous, Titrated, Starting on Mon05/28/25 at 1345, Until Mon05/29/25 at 1320, STAT Rate/Dose Change 05/29/2025 1:05 PM EDT 0.04 mcg/kg/min 5.33 mL/hr Rate/Dose Verify 05/29/2025 1:00 PM EDT 0.05 mcg/kg/min 6. 66 mL/hr Rate/Dose Change 05/29/2025 12:58 PM EDT 0.05 mcg/kg/min 6 .66 mL/hr norepinephrine 8 mg/250 mL (0.032 mg/mL) infusion 0-0.4 mcg/kg/min 71 kg Dosing weight (0-53.25 mL/hr), 0.032 mg/mL, Intravenous, Titrated, Starting on Mon05/29/25 at 1515, Until Mon05/30/25 at 0556, STAT Rate/Dose Change 05/30/2025 3:28 AM EDT 0.01 mcg/kg/min 1.33 mL/hr Rate/Dose Change 05/30/2025 3:10 AM EDT 0.02 mcg/kg/min 2. 66 mL/hr Rate/Dose Verify 05/30/2025 3:00 AM EDT 0.01 mcg/kg/min 1. 33 mL/hr ondansetron (Zofran) injection 4 mg 4 mg, Intravenous, Once, 1 dose, On Mon06/05/25 at 2200, Routine Given 06/05/2025 10:36 PM EDT 4 mg oxyCODONE (Roxicodone) immediate release tablet 10 mg 10 mg, Oral, Every 6 hours PRN, Starting on Mon05/27/25 at 1906, Until Mon06/02/25 at 1145, Routine, severe pain Given 05/30/2025 11:11 AM EDT 10 mg Given 05/29/2025 3:48 PM EDT 10 mg Given 05/29/2025 8:14 AM EDT 10 mg oxyCODONE (Roxicodone) immediate release tablet 5 mg 5 mg, Oral, Every 6 hours PRN, Starting on Mon05/27/25 at 1906, Until Mon06/02/25 at 1145, Routine, moderate pain Given 05/31/2025 5:43 PM EDT 5 mg Given 05/28/2025 9:54 AM EDT 5 mg pantoprazole (Protonix) injection 40 mg 40 mg, Intravenous, Daily, First dose on Mon05/27/25 at 1945, Until Discontinued, Routine, Recovery(Phase II-Outpatient)/On Unit(Inpatient) Given 05/31/2025 9:20 AM EDT 40 mg Given 05/30/2025 8:16 AM EDT 40 mg Given 05/29/2025 8:13 AM EDT 40 mg PARoxetine (Paxil) tablet 20 mg 20 mg, Oral, Daily, First dose on Mon05/28/25 at 1100, Until Discontinued, Routine Given 06/01/2025 8:23 AM EDT 20 mg Given 05/31/2025 9:20 AM EDT 20 mg Given 05/30/2025 8:16 AM EDT 20 mg PARoxetine (Paxil) tablet 20 mg 20 mg, Nasogastric, Daily, First dose (after last modification) on Mon06/02/25 at 0900, Until Discontinued, Routine Given 06/03/2025 8:20 AM EDT 20 mg Given 06/02/2025 8:22 AM EDT 20 mg PARoxetine (Paxil) tablet 20 mg 20 mg, Oral, Daily, First dose (after last modification) on Mon06/04/25 at 0900, Until Discontinued, Routine Given 06/07/2025 8:12 AM EDT 20 mg Given 06/06/2025 8:06 AM EDT 20 mg Given 06/05/2025 8:38 AM EDT 20 mg phosphorus (K Phos Neutral) tablet 1 tablet 1 tablet, Oral, Every 8 hours, 3 doses, First dose on Mon06/07/25 at 0615, Last dose on Mon06/07/25 at 2215, Routine Given 06/07/2025 5:37 AM EDT 1 table t polyethylene glycol (Miralax) packet 17 g 17 g, Oral, Daily, First dose (after last modification) on Mon05/31/25 at 1115, Until Discontinued, Routine, Recovery(Phase II-Outpatient)/On Unit(Inpatient) Given 06/01/2025 8:22 AM EDT 17 g Given 05/31/2025 12:04 PM EDT 17 g polyethylene glycol (Miralax) packet 17 g 17 g, Nasogastric, Daily, First dose (after last modification) on Mon06/02/25 at 0900, Until Discontinued, Routine, Recovery(Phase II-Outpatient)/On Unit(Inpatient) Given 06/03/2025 8:19 AM EDT 17 g Given 06/02/2025 8:25 AM EDT 17 g polyethylene glycol (Miralax) packet 17 g 17 g, Oral, Daily, First dose (after last modification) on Mon06/04/25 at 0900, Until Discontinued, Routine, Recovery(Phase II-Outpatient)/On Unit(Inpatient) Given 06/07/2025 8:12 AM EDT 17 g Given 06/04/2025 9:19 AM EDT 17 g potassium & sodium phosphates (Phos-NaK) 280-160-250 MG packet 1 packet 1 packet, Oral, Every 8 hours, 3 doses, First dose on Mon05/30/25 at 1145, Last dose on Mon05/31/25 at 0345, Routine Given 05/31/2025 2:57 AM EDT 1 packe t Given 05/30/2025 8:22 PM EDT 1 packet Given 05/30/2025 11:11 AM EDT 1 packet potassium & sodium phosphates (Phos-NaK) 280-160-250 MG packet 2 packet 2 packet, Oral, Every 8 hours, 3 doses, First dose on Mon06/01/25 at 1930, Last dose on Mon06/02/25 at 1130, Routine Given 06/02/2025 11:49 AM EDT 2 pack ets Given 06/02/2025 2:57 AM EDT 2 packets Given 06/01/2025 6:43 PM EDT 2 packets potassium chloride (Klor-Con) packet 20 mEq 20 mEq, Oral, Once, 1 dose, On Mon05/28/25 at 0615, Routine Given 05/28/2025 5:26 AM EDT 20 mEq potassium chloride (Klor-Con) packet 20 mEq 20 mEq, Oral, Once, 1 dose, On Mon05/28/25 at 0930, Routine Given 05/28/2025 8:46 AM EDT 20 mEq potassium chloride (Klor-Con) packet 20 mEq 20 mEq, Oral, Once, 1 dose, On Mon05/28/25 at 1545, Routine Given 05/28/2025 3:24 PM EDT 20 mEq potassium chloride (Klor-Con) packet 20 mEq 20 mEq, Oral, Once, 1 dose, On Marian 05/29/25 at 1700, Routine Given 05/29/2025 4:12 PM EDT 20 mEq potassium chloride (Klor-Con) packet 20 mEq 20 mEq, Oral, Once, 1 dose, On 05/30/25 at 1945, Routine Given 05/30/2025 8:22 PM EDT 20 mEq potassium chloride (Klor-Con) packet 20 mEq 20 mEq, Oral, Once, 1 dose, On 05/31/25 at 0430, Routine Given 05/31/2025 4:41 AM EDT 20 mEq potassium chloride (Klor-Con) packet 20 mEq 20 mEq, Oral, Once, 1 dose, On 06/01/25 at 2045, Routine Given 06/01/2025 8:07 PM EDT 20 mEq potassium chloride (Klor-Con) packet 20 mEq 20 mEq, Oral, Once, 1 dose, On 06/02/25 at 0730, Routine Given 06/02/2025 8:22 AM EDT 20 mEq potassium chloride (Klor-Con) packet 40 mEq 40 mEq, Oral, Once, 1 dose, On Mon05/28/25 at 0500, Routine Given 05/28/2025 4:26 AM EDT 40 mEq potassium chloride (Klor-Con) packet 40 mEq 40 mEq, Oral, Once, 1 dose, On Mon05/28/25 at 1430, Routine Given 05/28/2025 1:56 PM EDT 40 mEq potassium chloride (Klor-Con) packet 40 mEq 40 mEq, Oral, Once, 1 dose, On Marian 05/29/25 at 0430, Routine Given 05/29/2025 4:08 AM EDT 40 mEq potassium chloride (Klor-Con) packet 40 mEq 40 mEq, Oral, Once, 1 dose, On Marian 05/29/25 at 1545, Routine Given 05/29/2025 3:14 PM EDT 40 mEq potassium chloride (Klor-Con) packet 40 mEq 40 mEq, Oral, Once, 1 dose, On Marian 05/29/25 at 1545, Routine Given 05/29/2025 3:14 PM EDT 40 mEq potassium chloride (Klor-Con) packet 40 mEq 40 mEq, Oral, Once, 1 dose, On Mon05/30/25 at 1830, Routine Given 05/30/2025 5:51 PM EDT 40 mEq potassium chloride (Klor-Con) packet 40 mEq 40 mEq, Oral, Once, 1 dose, On 05/31/25 at 0315, Routine Given 05/31/2025 2:57 AM EDT 40 mEq potassium chloride (Klor-Con) packet 40 mEq 40 mEq, Oral, Once, 1 dose, On [place] 06/01/25 at 0745, Routine Given 06/01/2025 8:22 AM EDT 40 mEq potassium chloride (Klor-Con) packet 40 mEq 40 mEq, Oral, Once, 1 dose, On [place] 06/01/25 at 1930, Routine Given 06/01/2025 6:43 PM EDT 40 mEq potassium chloride (Klor-Con) packet 40 mEq 40 mEq, Oral, Once, 1 dose, On 06/02/25 at 0615, Routine Given 06/02/2025 5:34 AM EDT 40 mEq potassium chloride CR (Klor-Con) ER tablet 20 mEq 20 mEq, Oral, Once, 1 dose, On 06/07/25 at 0730, Routine Given 06/07/2025 8:12 AM EDT 20 mEq potassium chloride CR (Klor-Con) ER tablet 40 mEq 40 mEq, Oral, Once, 1 dose, On 06/07/25 at 0615, Routine Given 06/07/2025 5:37 AM EDT 40 mEq potassium chloride IVPB 10 mEq 10 mEq, Intravenous, Every 1 hour, 4 doses, First dose on Mon06/06/25 at 0000, Last dose on Mon06/06/25 at 0300, RoutineIndications:Hypokalemia New Bag 06/06/2025 3:50 AM EDT 10 mEq 100 mL/hr Bag 06/06/2025 2:33 AM EDT 10 mEq 100 mL/hr 06/06/2025 1:14 AM EDT 10 mEq 100 mL/hr potassium chloride IVPB 20 mEq 20 mEq, Intravenous, Every 1 hour, 2 doses, First dose on Mon05/27/25 at 2145, Last dose on Mon05/27/25 at 2245, RoutineIndications:Hypokalemia New Bag 05/27/2025 11:11 PM EDT 20 mEq 50 mL/hr 05/27/2025 10:04 PM EDT 20 mEq 50 mL/hr Povidone-Iodine 5 % swab solution 1 Application Nasal, Once, 1 dose, On Mon05/27/25 at 0700, Routine Given 05/27/2025 6:27 AM EDT 1 Application propofol (Diprivan) infusion 10 mg/mL - Pyxis Override Pull 1 dose, Starting on Mon05/28/25 at 1135, Until Mon05/28/25 at 2344 Rate/Dose Verify 05/28/2025 12:07 PM EDT 10 mcg/kg/min Rate/Dose Verify 05/28/2025 11:38 AM EDT 20 mcg/kg/min propofol (Diprivan) infusion 10 mg/mL 10-50 mcg/kg/min 71.2 kg (4.272-21.36 mL/hr, rounded to 4.27-21.36 mL/hr), Intravenous, Titrated, Starting on Mon05/27/25 at 2000, Until Mon05/28/25 at 1017, Routine Rate/Dose Verify 05/28/2025 10:00 AM EDT 30 mcg/kg/min 12.82 mL/hr Rate/Dose Verify 05/28/2025 9:00 AM EDT 30 mcg/kg/min 12.8 2 mL/hr Rate Change - Dual Sign 05/28/2025 8:38 AM EDT 30 mcg/kg/m in 12.82 mL/hr propofol (Diprivan) infusion 10 mg/mL 10-50 mcg/kg/min 71 kg Dosing weight (4.26-21.3 mL/hr), Intravenous, Titrated, Starting on Mon05/28/25 at 1345, Until Mon05/30/25 at 1017, Routine Rate Change - Dual Sign 05/30/2025 6:00 AM EDT 10 mcg/kg/min 4.26 mL/hr Rate Change - Dual Sign 05/30/2025 5:48 AM EDT 20 mcg/kg/m in 8.52 mL/hr Rate Change - Dual Sign 05/30/2025 5:38 AM EDT 25 mcg/kg/m in 10.65 mL/hr QUEtiapine (SEROquel) tablet 12.5 mg 12.5 mg, Oral, Nightly, 2 doses, First dose (after last modification) on Mon06/04/25 at 2100, Last dose on Mon06/05/25 at 2100, Routine Given 06/04/2025 8:09 PM EDT 12.5 mg QUEtiapine (SEROquel) tablet 25 mg 25 mg, Oral, 2 times daily, First dose on Mon05/29/25 at 1030, Until Discontinued, Routine Given 05/29/2025 9:58 AM EDT 25 mg QUEtiapine (SEROquel) tablet 25 mg 25 mg, Nasogastric, Nightly, First dose (after last modification) on Mon06/02/25 at 2100, Until Discontinued, Routine Given 06/02/2025 8:23 PM EDT 25 mg QUEtiapine (SEROquel) tablet 25 mg 25 mg, Oral, Nightly, 1 dose, First dose (after last modification) on Mon06/03/25 at 2100, Routine Given 06/03/2025 8:26 PM EDT 25 mg QUEtiapine (SEROquel) tablet 50 mg 50 mg, Nasogastric, 2 times daily, First dose (after last modification) on Mon05/29/25 at 2100, Until Discontinued, Routine Given 05/29/2025 9:23 PM EDT 50 mg QUEtiapine (SEROquel) tablet 50 mg 50 mg, Nasogastric, Nightly, First dose (after last modification) on Mon06/01/25 at 2100, Until Discontinued, Routine Given 06/01/2025 8:07 PM EDT 50 mg QUEtiapine (SEROquel) tablet 75 mg 75 mg, Nasogastric, 2 times daily, First dose (after last modification) on Mon05/30/25 at 0900, Until Discontinued, Routine Given 06/01/2025 8:23 AM EDT 75 mg Given 05/31/2025 8:27 PM EDT 75 mg Given 05/31/2025 9:20 AM EDT 75 mg senna (Senokot) tablet 17.2 mg 17.2 mg, Oral, Nightly, First dose on Mon05/27/25 at 2100, Until Discontinued, Routine, Recovery(Phase II-Outpatient)/On Unit(Inpatient) Given 05/31/2025 8:27 PM EDT 17.2 mg Given 05/30/2025 8:22 PM EDT 17.2 mg Given 05/29/2025 9:23 PM EDT 17.2 mg senna (Senokot) tablet 17.2 mg 17.2 mg, Nasogastric, Nightly, First dose (after last modification) on Mon06/01/25 at 2100, Until Discontinued, Routine, Recovery(Phase II-Outpatient)/On Unit(Inpatient) Given 06/02/2025 8:23 PM EDT 17.2 mg Given 06/01/2025 8:07 PM EDT 17.2 mg senna (Senokot) tablet 17.2 mg 17.2 mg, Oral, Nightly, First dose (after last modification) on Mon06/03/25 at 2100, Until Discontinued, Routine, Recovery(Phase II-Outpatient)/On Unit(Inpatient) Given 06/06/2025 8:22 PM EDT 17.2 mg Given 06/03/2025 8:26 PM EDT 17.2 mg sodium chloride 0.45 % with potassium chloride 20 mEq, magnesium sulfate 3 g 1,000 mL infusion 50 mL/hr, Intravenous, Continuous, Starting on Mon05/27/25 at 1945, Until Mon05/28/25 at 0820, Routine Rate/Dose Verify 05/28/2025 8:00 AM EDT 50 mL/hr 50 mL/hr Rate/Dose Verify 05/28/2025 7:00 AM EDT 50 mL/hr 50 mL/h r Rate/Dose Verify 05/28/2025 6:00 AM EDT 50 mL/hr 50 mL/h r sodium chloride 0.9 % bolus 500 mL 500 mL, Intravenous, Once, 1 dose, On [place] 06/05/25 at 2200, Administer over 2 Hours, Routine New Bag 06/05/2025 9:30 PM EDT 500 mL 250 mL/hr sodium chloride 0.9 % flush 10 mL 10 mL, Intravenous, Every 12 hours, First dose on [facility] 05/27/25 at 0700, Until Discontinued, Routine, Holding - Preprocedure Given 05/27/2025 6:27 AM EDT 10 mL sodium phosphate (Fleet) enema 133 mL 133 mL (1 enema), Rectal, Once as needed, 1 dose, Starting on [facility] 06/03/25 at 0919, Until 06/07/25 at 1412, Routine, second line agent for constipation if no bowel movement in 72h Sodium Phosphate-NaCl IVPB 15 mmol 15 mmol, Intravenous, Once, 1 dose, On [facility] 05/27/25 at 2315, Routine Given 05/28/2025 12:12 AM EDT 15 mmol 25 mL/hr Sodium Phosphate-NaCl IVPB 15 mmol 15 mmol, Intravenous, Once, 1 dose, On [facility] 05/29/25 at 1545, Routine Rate/Dose Verify 05/29/2025 7:00 PM EDT 25 mL/hr Rate/Dose Verify 05/29/2025 6:00 PM EDT 25 mL/h r Rate/Dose Verify 05/29/2025 5:00 PM EDT 25 mL/h r Sodium Phosphate-NaCl IVPB 15 mmol 15 mmol, Intravenous, Once, 1 dose, On Mon05/30/25 at 1830, Routine Given 05/30/2025 6:24 PM EDT 15 mmol 25 mL/hr Sodium Phosphate-NaCl IVPB 15 mmol 15 mmol, Intravenous, Once, 1 dose, On Mon06/01/25 at 0200, Routine Rate/Dose Verify 06/01/2025 5:00 AM EDT 25 mL/hr Rate/Dose Verify 06/01/2025 4:00 AM EDT 25 mL/h r Rate/Dose Verify 06/01/2025 3:00 AM EDT 25 mL/h r documented in this encounter Active and Recently Administered Medications Times are shown in EDT. Scheduled Medication Order 06/05/2025 06/06/2025 06/07/2025 ALPRAZolam (Xanax) tablet 0.25 mg 0.25 mg, Oral, 2 times daily, First dose (after last modification) on Mon06/03/25 at 2100, Until Discontinued, Routine 0940 (Return to [facility] - Provider: Selin Daily RN)2250 (Not Given - Provider: Lenin Portillo - Reason: Hold for condition: must add comment - Comment: patient transferred to CVICU held per TRISTAN Bhatt) 08 (Not Given - Provider: Ginny Damon RN - Reason: Patient/family refused)2021 (Given - Provider: Lenin Portillo) 08 (Given - Provider: Ca Burr, ABHILAHS) apixaban (Eliquis) tablet 5 mg 5 mg, Oral, 2 times daily, First dose on Mon06/06/25 at 1100, Until Discontinued, Routine 1153 (Given - Provider: Ginny Damon RN)2021 (Given - Provider: Lenin Portillo) 08 (Given - Provider: Ca Burr RN) aspirin chewable tablet 81 mg (CANCELED) 81 mg, Oral, Daily, First dose (after last modification) on Mon06/04/25 at 0900, Until Discontinued, Routine 0838 (Given - Provider: Selin Daily RN) atorvastatin (Lipitor) tablet 20 mg 20 mg, Oral, Nightly, First dose (after last modification) on Mon06/03/25 at 2100, Until Discontinued, Routine 2250 (Not Given - Provider: Lenin Portillo - Reason: Hold for condition: must add comment - Comment: patient transferred to CVICU held per TRISTAN Bhatt) 2023 (Given - Provider: Lenin Portillo) clopidogrel (Plavix) tablet 75 mg 75 mg, Oral, Daily, First dose (after last modification) on Mon06/04/25 at 0900, Until Discontinued, Routine 0838 (Given - Provider: Selin Daily RN) 0806 (Given - Provider: Ginny Damon RN) 0812 (Given - Provider: Ca Burr RN) docusate sodium (Colace) capsule 100 mg 100 mg, Oral, 2 times daily, First dose on Mon06/03/25 at 2100, Until Discontinued, Routine 0940 (Not Given - Provider: eSlin Daily RN - Reason: Patient/family refused)225 (Not Given - Provider: Lenin Portillo - Reason: Hold for condition: must add comment - Comment: patient transferred to CVICU held per TRISTAN Bhatt) 08 (Given - Provider: Ginny Damon, RN)2021 (Given - Provider: Lenin Portillo) 08 (Given - Provider: Ca Burr, ABHILASH) enoxaparin (Lovenox) syringe 40 mg (CANCELED) 40 mg, Subcutaneous, Daily, First dose on Mon06/01/25 at 1145, Until Discontinued, Routine 0838 (Given - Provider: Selin Daily, RN) 08 (Given - Provider: Ginny Damon, RN) furosemide (Lasix) tablet 20 mg 20 mg, Oral, Daily, First dose (after last modification) on Mon06/04/25 at 0900, Until Discontinued, Routine 0838 (Given - Provider: Selin Daily, RN) 08 (Given - Provider: Ginny Damon, ABHILASH) 0824 (Given - Provider: Ca Burr, ABHILASH - Comment: barcode broken) iohexol (OMNIPaque) 350 MG/ML injection 100 mL (COMPLETED) 100 mL, Intravenous, Once in imaging, 1 dose, Starting on [place] 06/05/25 at 2342, Until Mon06/06/25 at 0042, Routine, Imaging Protocol Orders 0042 (Given - Provider: Marilia Atkinson) ipratropium-albuterol (Duo-Neb) 0.5-2.5 mg/3 mL nebulizer solution 3 mL 3 mL, Nebulization, Every 4 hours while awake, 22 doses, First dose (after last modification) on Mon06/04/25 at 2000, Last dose on Mon06/09/25 at 0000, Routine 0037 (Not Given - Provider: Sharonda Griffin - Reason: Hold for condition: must add comment - Comment: pt sleeping)0838 (Given - Provider: Precious Downs)1136 (Given - Provider: Precious Downs)1556 (Given - Provider: Precious Downs)2058 (Not Given - Provider: Sharonda Griffin - Reason: Patient/family refused) 0041 (Not Given - Provider: Sharonda Griffin - Reason: Patient/family refused)0917 (Not Given - Provider: Lazarus Oleary - Reason: Patient/family refused)1136 (Canceled Entry - Provider: Lazarus Oleary)1627 (Canceled Entry - Provider: Lazarus Oleary)2019 (Given - Provider: Sharonda Griffin) 004 (Not Given - Provider: Sharonda Griffin - Reason: Hold for condition: must add comment - Comment: sleeping)0900 (Given - Provider: Bee Jennings)1200 (Canceled Entry - Provider: Automatic Discharge Provider - Comment: Automatically canceled at discontinue of medication order) Nick powder 1 packet 1 packet, Oral, 2 times daily, First dose on Mon06/04/25 at 2100, Until Discontinued, Routine 0940 (Given - Provider: Selin Daily, ABHILASH)225 (Not Given - Provider: Lenin Portillo - Reason: Hold for condition: must add comment - Comment: patient transferred to CVICU held per TRISTAN Bhatt) 08 (Given - Provider: Ginny Damon, ABHILASH)2035 (Not Given - Provider: Lenin Portillo - Reason: Patient/family refused) 08 (Given - Provider: Ca Burr, ABHILASH) magnesium sulfate IVPB 2 g (COMPLETED) 2 g, Intravenous, Once, 1 dose, On Mon06/06/25 at 0000, Routine 2314 (New Bag - Provider: Lenin Portillo) metoprolol tartrate (Lopressor) split tablet 37.5 mg (CANCELED) 37.5 mg, Oral, 2 times daily, First dose (after last modification) on Mon06/03/25 at 2100, Until Discontinued, Routine 0838 (Given - Provider: Selin Daily RN) metoprolol tartrate (Lopressor) tablet 25 mg 25 mg, Oral, 2 times daily, First dose (after last modification) on Mon06/05/25 at 2100, Until Discontinued, Routine 2251 (Not Given - Provider: Lenin Portillo - Reason: Hold for condition: must add comment - Comment: patient transferred to CVICU held per SACK SEWER MACHINE Miller) 08 (Given - Provider: Ginny Damon, ABHILASH)2023 (Given - Provider: Lenin Portillo) 08 (Given - Provider: Ca Burr, ABHILASH) ondansetron (Zofran) injection 4 mg (COMPLETED)(Linked Group 1) 4 mg, Intravenous, Once, 1 dose, On [place] 06/05/25 at 2200, Routine 2236 (Given - Provider: Lenin Portillo) PARoxetine (Paxil) tablet 20 mg 20 mg, Oral, Daily, First dose (after last modification) on Mon06/04/25 at 0900, Until Discontinued, Routine 0838 (Given - Provider: Selin Daily RN) 0806 (Given - Provider: Ginny Damon, ABHILASH) 0812 (Given - Provider: Ca Burr, ABHILASH) phosphorus (K Phos Neutral) tablet 1 tablet 1 tablet, Oral, Every 8 hours, 3 doses, First dose on 06/07/25 at 0615, Last dose on 06/07/25 at 2215, Routine 0537 (Given - Provid er: Ruby Pan) polyethylene glycol (Miralax) packet 17 g 17 g, Oral, Daily, First dose (after last modification) on Mon06/04/25 at 0900, Until Discontinued, Routine, Recovery(Phase II-Outpatient)/On Unit(Inpatient) 0940 (Not Given - Provider: Selin Daily RN - Reason: Patient/family refused) 0807 (Not Given - Provider: Ginny Damon RN - Reason: Patient/family refused) 0812 (Given - Provider: Ca Burr RN) potassium chloride CR (Klor-Con) ER tablet 20 mEq (COMPLETED)(Linked Group 2) 20 mEq, Oral, Once, 1 dose, On 06/07/25 at 0730, Routine 0812 (Given - Provid er: Ca Burr RN) potassium chloride CR (Klor-Con) ER tablet 40 mEq (COMPLETED)(Linked Group 2) 40 mEq, Oral, Once, 1 dose, On 06/07/25 at 0615, Routine 0537 (Given - Provid er: Ruby Pan) potassium chloride IVPB 10 mEq (COMPLETED) 10 mEq, Intravenous, Every 1 hour, 4 doses, First dose on Mon06/06/25 at 0000, Last dose on Mon06/06/25 at 0300, Routine 2314 (New Bag - Provider: Lenin Portillo) 0114 (New Bag - Provider: Lenin Portillo)0233 (New Bag - Provider: Lenin Portillo)0350 (New Bag - Provider: Lenin Portillo) senna (Senokot) tablet 17.2 mg 17.2 mg, Oral, Nightly, First dose (after last modification) on Mon06/03/25 at 2100, Until Discontinued, Routine, Recovery(Phase II-Outpatient)/On Unit(Inpatient) 2251 (Not Given - Provider: Lenin Portillo - Reason: Hold for condition: must add comment - Comment: patient transferred to CVICU held per TRISTAN Bhatt) 2021 (Given - Provider: Lenin Portillo) sodium chloride 0.9 % bolus 500 mL (COMPLETED) 500 mL, Intravenous, Once, 1 dose, On [place] 06/05/25 at 2200, Administer over 2 Hours, Routine 2130 (New Bag - Provider: Yanet Hilliard, ABHILASH) PRN Medication Order 06/05/2025 06/06/2025 06/07/2025 aspirin-acetaminophen- caffeine (Excedrin Migraine) 250-250-65 MG per tablet 1 tablet (CANCELED) 1 tablet, Oral, Every 6 hours PRN, Starting on Mon06/05/25 at 0946, Until Mon06/06/25 at 1012, Routine, headaches 1146 (Given - Provider: Selin Daily, ABHILASH) bisacodyl (Dulcolax) suppository 10 mg 10 mg, Rectal, Daily PRN, Starting on Mon06/03/25 at 0918, Until 06/07/25 at 1412, Routine, constipation, first line agent if no bowel movement for 48h HYDROcodone-acetaminop hen ([place]) 5-325 MG per tablet 10 mg of hydrocodone(Linked Group 3) 10 mg of hydrocodone, Oral, Every 6 hours PRN, Starting on 06/02/25 at 1144, Until 06/07/25 at 1412, Routine, severe pain 0537 (Given - Provider: Rosaline Gibbons RN)1324 (Given - Provider: Selin Daily, ABHILASH)223 (Return to [facility] - Provider: Yanet Hilliard, ABHILASH) 1239 (See Alternative - Provider: Ginny Damon, ABHILASH)2027 (See Alternative - Provider: Lenin Portillo) 1036 (See Alternative - Provider: Ca Burr, ABHILASH) HYDROcodone-acetaminop hen ([place]) 5-325 MG per tablet 5 mg of hydrocodone(Linked Group 3) 5 mg of hydrocodone, Oral, Every 6 hours PRN, Starting on 06/02/25 at 1144, Until 06/07/25 at 1412, Routine, moderate pain 0537 (See Alternative - Provider: Rosaline Gibbons, RN)1324 (See Alternative - Provider: Selin Daily, RN)2231 (See Alternative - Provider: Yanet Hilliard, ABHILASH) 1239 (Given - Provider: Ginny Damon, ABHILASH)202 (Given - Provider: Lenin Portillo) 1036 (Given - Provider: Ca Burr RN) hydrOXYzine pamoate (Vistaril) capsule 25 mg 25 mg, Oral, Every 6 hours PRN, Starting on Mon05/28/25 at 0833, Until 06/07/25 at 1412, Routine, anxiety ipratropium-albuterol (Duo-Neb) 0.5-2.5 mg/3 mL nebulizer solution 3 mL 3 mL, Nebulization, Every 4 hours PRN, Starting on Mon06/03/25 at 0930, Until 06/07/25 at 1412, Routine, wheezing, shortness of breath labetalol (Normodyne,Trandate) injection 10 mg 10 mg, Intravenous, Every 4 hours PRN, Starting on [place] 06/05/25 at 2228, Until 06/07/25 at 1412, Routine, high blood pressure, SBP>140 2358 (Given - Provider: Lenin Portillo) labetalol (Normodyne,Trandate) injection 20 mg 20 mg, Intravenous, Every 4 hours PRN, Starting on [place] 06/05/25 at 2229, Until 06/07/25 at 1412, Routine, high blood pressure, sbp >160 ondansetron (Zofran) injection 4 mg 4 mg, Intravenous, Every 6 hours PRN, Starting on Mon05/27/25 at 1847, Until 06/07/25 at 1412, Routine, Recovery(Phase II-Outpatient)/On Unit(Inpatient), nausea, vomiting sodium phosphate (Fleet) enema 133 mL 133 mL (1 enema), Rectal, Once as needed, 1 dose, Starting on 06/03/25 at 0919, Until 06/07/25 at 1412, Routine, second line agent for constipation if no bowel movement in 72h Linked Groups Order Group 1: ondansetron ODT (Zofran-ODT) disintegrating tablet 4 mg (COMPLETED) 4 mg, Oral, Once, 1 dose, On Marian 06/05/25 at 2200, Routine Or ondansetron (Zofran) injection 4 mg (COMPLETED)Jump to med 4 mg, Intravenous, Once, 1 dose, On [place] 06/05/25 at 2200, Routine Group 2: potassium chloride CR (Klor-Con) ER tablet 40 mEq (COMPLETED)Jump to med 40 mEq, Oral, Once, 1 dose, On 06/07/25 at 0615, Routine Followed by potassium chloride CR (Klor-Con) ER tablet 20 mEq (COMPLETED)Jump to med 20 mEq, Oral, Once, 1 dose, On 06/07/25 at 0730, Routine Group 3: HYDROcodone-acetaminophen ([place]) 5-325 MG per tablet 5 mg of hydrocodoneJump to med 5 mg of hydrocodone, Oral, Every 6 hours PRN, Starting on 06/02/25 at 1144, Until 06/07/25 at 1412, Routine, moderate pain Or HYDROcodone-acetaminophen ([place]) 5-325 MG per tablet 10 mg of hydrocodoneJump to med 10 mg of hydrocodone, Oral, Every 6 hours PRN, Starting on 06/02/25 at 1144, Until 06/07/25 at 1412, Routine, severe pain documented in this encounter Additional Health Concerns Assessment Noted Time A fall risk assessment has been complete d for the patient 05/21/2025 9:30 AM EDT A Body Mass Index follow-up plan has been documented for the patient 06/07/2025 11:45 AM EDT documented as of this encounter Care Teams Facilities Planner Relationship Specialty Start Date End Date Edwardo Sheehan MD [address] [place] [address] PCP - General 12/19/22 Jose R Umana MD [address] [facility] [address] [place] [address] Referring Physician Cardiology 01/23/25 Kevin Mancera MD [address] [facility] [address] [place] [id number] Referring Physician 01/31/25 documented as of this encounter
--- OUTSIDE RECORDS SUMMARY | 2025-05-27 06:59 | XMS_ITS | Encounter Summary ---
Author Organization Healthcare Address [address] 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] Procedures AL -AORT GRF W/CARD BYP F/AORTIC DISSECTION Ascending Aortic Replacement, Hemiarch, Circulatory Arrest, Aortic Arch Debranching Jose C Nicholson MD [address] [facility] [address] [place] [address] Phone: tel: fax: [facility] [address] [place] [address] Phone: tel: Referral ID Status Reason Start Date Expiration Date Visits Re quested Visits Authorized [id number] 1 1 Encounter Details Date Type Department Care Team (Late st Contact Info) Description 05/27/2025 6:59 AM EDT Anesthesia Event [facility] [address] [place] [address] Miguel Ángel Malave MD [address] [place] [address] Anesthesia Record Procedure Summary Procedure Name Responsible Anesthesiologist Anesthesia Start Time Anesthesia Stop Time Ascending Aortic Replacement, Hemiarch, Circulatory Arrest, Aortic Arch Debranching (Chest) Miguel Ángel Malave MD 05/27/25 0659 05/27/25 1850 Events Date Time Event Comment 05/27/2025 0654 0659 An Start The patient was reevaluated immediately before sedation and remains eligible for anesthesia plan. 0659 An Start Data 0659 In Room 0702 Perfusion Start 0712 Line Placement 0717 ACT Performed 120 0719 An Induction The patient was reevaluated immediately before moderate or deep sedation use and before anesthesia induction. 0725 An Intubation 0745 Line Placement 0751 Anesthesia Ready 0826 Proc Start 0842 Autotransfusion Start 0843 Sternotomy 0922 ACT Performed 667s 0925 Isauro MAP goal >70-80 0927 Isauro 300ml PRBCs in CPB prime 1001 Art Line Pulse/Test 1003 ACT Performed 523s 1050 An CV Bypass init 1059 AN Active Cool 1100 Clamp On 1113 Labs 1113 ACT Performed >700s 1123 HC (UF) Start 1123 Isauro 300ml PRBCs in cpb pump 1140 Labs 1140 ACT Performed >700s 1142 HC (UF) Stop 1210 ACT Performed >700s 1215 Labs 1236 Labs 1237 ACT Performed >700s 1259 Cerebral Antegrade Start 1259 Circ Arrest Start 1300 Isauro CO2 at 10 L/min 1352 Circ Arrest Stop 1352 AN Active Warm 1352 Cerebral Antegrade Stop 1407 Labs 1407 ACT Performed >1000 1435 Clamp Off 1435 ACT Performed >1000 1435 Labs 1502 ACT Performed >1000 1502 Labs 1529 An CV Bypass Ended 1541 ACT Performed 140 1543 ACT Performed 140 1642 Isauro Factor VII seco nd dose 1750 Autotransfusion Stop 1750 Perfusion Stop 1818 Proc Fin 1824 an stop data 1827 Out of Room 1850 Handoff to Receiving I compl eted my handoff to the receiving clinician during which we: 1. Identified the patient 2. Identified the responsible provider 3. Reviewed the pertinent medical history 4. Discussed the surgical course 5. Reviewed intra-op anesthesia management and issues during anesthesia 6. Set expectations for post-procedure period 7. Allowed opportunity for questions and acknowledgement of understanding. 1849 An Stop Meds Name Total midazolam (Versed) injection 1 mg/mL 10 mg fentaNYL (Sublimaze) injection 50 mcg/mL 1,000 mcg lidocaine PF (Xylocaine-MPF) 2% 70 mg propofol (Diprivan) injection 10 mg/mL 2 00 mg rocuronium (ZeMuron) injection 10 mg/mL 220 mg phenylephrine (Lázaro-Synephrine) prefilled syringe 1 mg/10 mL 670 mcg dexmedetomidine (Precedex) injection 100 mcg/mL 200 mcg ceFAZolin (Ancef) injection 2 g 6 g Vancomycin HCl in NaCl (Vancocin) IVPB 1 ,000 mg 1 g cardioplegia (Del Nido) solution 2,500 m L magnesium sulfate 4 g in sodium chloride 0.9 % 100 mL IVPB 4 g phenylephrine (Vazculep) injection 10 mg /mL 950 mcg tranexamic acid (Cyklokapron ) 1,000 mg in sodium chloride 0.9 % 100 mL (10 mg/mL) IVPB 522.13 mg tranexamic acid (Cyklokapron) injection 100 mg/mL 700 mg heparin (porcine) injection 1,000 units/ mL 38,000 Units heparin (porcine) injection 1,000 units/ mL 10,000 Units norepinephrine in 0.9% NaCl infusion 32 mcg/mL 0.18 mg nitroglycerin (Tridil) bolus 200 mcg nitroglycerin (Tridil) infusion 200 mcg/ mL 0.7 mg mannitol 20% IV infusion 12.5 g sodium bicarbonate injection 1 mEq/mL 10 0 mEq calcium chloride injection 10% 2.2 g insulin regular (HumuLIN R,N ovoLIN R) 100 Units in sodium chloride 0.9 % 100 mL infusion 6.3 Units glycopyrrolate (Robinul) injection 0.2 m g/mL 0.2 mg desmopressin (DDAVP) 21 mcg in sodium ch loride 0.9 % 50 mL IVPB 21 mcg protamine injection 350 mg clevidipine (Cleviprex) infusion 0.5 mg/ mL 19.47 mg propofol (Diprivan) infusion 10 mg/mL 47 7.4 mg albumin human 5% 500 mL HYDROmorphone (Dilaudid) injection 1 mg/ mL 1 mg lactated Ringer's infusion 700 mL sodium chloride 0.9 % infusion 800 mL sodium chloride 0.9 % infusion 532.5 mL * Agents Name O2 N2O Air Sevoflurane Isoflurane Desflurane Inspired Desflurane Inspired Isoflurane Inspired Sevoflurane N2O Inspired N2O * Blood Name Total PRBC 1,750 mL PLATELETS 750 mL CRYOPRECIPITATE 136 mL FFP 1,200 mL Lines, Drains, and Airways Type Details Placement Removal Wound 03/13/25; 0828; N; Y es; Surgical; Neck; Right 03/13/25 0828 by Jeri Brown RN Wound 03/13/25; 09; N; Y es; Surgical; Catheter Ent; Groin; Left 03/13/25 09 by Paresh Lopez RN Wound 05/27/25; 08; N; Y es; Surgical; Open Surg; Sternum; Mid 05/27/25 08 by Jenni Tse RN Pacer Wires 05/27/25; Dr. Nicholson; Atrial and Ventricular; 06/02/25; 18005/27/25 0000 by Kayla Ramirez RN 06/02/25 180 by Heavenly Magana RN Peripheral IV Placement Date: 05/27/25; Placement Time: 06; Catheter Size: 18 G; Orientation: Right; Location: Antecubital; Site Prep: Chlorhexidine ; Local Anesth: None; Technique: Anatomical landmarks; Insertion Attempts: 1; Patient Tolerance: Tolerated well; Removal Date: 06/03/25; Removal Time: 1700; Removal Reason: Leaking 05/27/25 0655 by Argentina Pena RN 06/03/25 1700 by Russ Hernandez RN ETT Placement Date: 05/27/25; Placement Time: 07 (created via procedure documentation); Mask Ventilation: 1; Technique: Direct laryngoscopy; Type: ETT - single; Single Lumen Tube Size: 8 mm; Cuffed: Yes; Laryngoscope: Charly; Blade Size: 3; Location: Oral; Grade View: Grade I; Insertion Attempts: 1; Placement Verification: Auscultation, Capnometry; Airway Comments: Atraumatic. No change to dentition. ATTENDING ATTESTATION: I was present and supervised the entire procedure ; Placed by: Other (Comment); Removal Date: 05/30/25 05/27/25 0725 by Gurpreet Arzola 05/30/25 0000 by Sharyn Ragland Urethral Catheter Placement Date: 05/27/25; Placement Time: 07; Inserted by: paola; Type: Non-latex, Temperature probe; Size: 16 Fr.; Balloon Size: 10 mL; Urine Returned: Yes; Removal Date: 06/02/25; Removal Time: 1128; Removal Reason: Per order 05/27/25 0725 by Jenni Tse RN 06/02/25 1128 by Heavenly Magana RN Arterial Line Placement Date: 05/27/25; Placement Time: 07 (created via procedure documentation); Size: 20 G; Orientation: Right; Location: Radial; Inserted by: Other Anesthesia Staff; Securement: Sutured; Patient Tolerance: Tolerated well; Removal Date: 05/30/25; Removal Time: 075; Removal Reason: Other (Comment) (removed by Nidia Vance APRN, unable to rewire) 05/27/25 0729 by Gurpreet Arzola DO 05/30/25 0759 by Kayla Ramirez RN CVC Double Lumen Placement Date: 05/27/25; Placement Time: 07 (created via procedure documentation); Hand Hygiene: Yes; Site Prep: Chlorhexidine ; Site Prep Agent Dried: Yes; Sterile Barrier Used: Yes; Size: 9 Fr; Description: ATTENDING ATTESTATION: I was present and supervised the entire procedure ; Line Length(cm): 20; Orientation: Right; Location: Internal jugular; Placement Verification: Blood return, Ultrasound; Removal Date: 06/01/25; Removal Time: 0642; Removal Reason: Per order 05/27/25 0740 by Belgica Chris MD 06/01/25 0642 by Elena Patrick RN Introducer Placement Date: 05/27/25; Placement Time: 07 (created via procedure documentation); Hand Hygiene: Yes; Location: Internal jugular; Orientation: Right; Placement Verified by: Pressure tracing changes, AJ; Removal Date: 05/30/25; Removal Time: 1120 05/27/25 0740 by Belgica Chris MD 05/30/25 1120 by Kayla Ramirez RN CVC Single Lumen Placement Date: 05/27/25; Placement Time: 0740 (created via procedure documentation); Hand Hygiene: Yes; Site Prep: Chlorhexidine ; Site Prep Agent Dried: Yes; Sterile Barrier Used: Yes; Size: 9 Fr; Description: ATTENDING ATTESTATION: I was present and supervised the entire procedure ; Line Length(cm): 10; Orientation: Right; Location: Internal jugular; Placement Verification: Blood return, Ultrasound; Removal Date: 06/01/25; Removal Time: 0641; Removal Reason: Per order 05/27/25 0740 by Belgica Chris MD 06/01/25 0641 by Elena Patrick RN NG/OG [place] Placement Date: 05/27/25; Placement Time: 0900; Location: Center mouth; Removal Date: 05/29/25; Removal Time: 1155; Removal Reason: Per order (prior to DHT placement) 05/27/25 0900 by Juhi Copeland RN 05/29/25 1155 by Roxie Chacon RN Arterial Line Placement Date: 05/27/25; Placement Time: 1000; Orientation: Right; Location: Femoral; Site Prep: Chlorhexidine , Alcohol; Technique: Ultrasound guidance; Removal Date: 05/28/25; Removal Time: 0730; Removal Reason: Per protocol (Removed by Adrian MONTANEZ) 05/27/25 1000 by Juhi Copeland RN 05/28/25 0730 by Roxie Chacon RN Y Chest Tube 1 and 2 05/27/25; 1700; No; Anterior; Mediastinal; 32 Fr.; Anterior; Mediastinal; 32 Fr. 05/27/25 1700 by Arturo Melendez RN 06/05/25 0930 by Selin Daily RN Chest Tube Placement Date: 05/27/25; Placement Time: 1702; Inserted by: Bharat; Tube Number: 3; Orientation: Right; Location: Pleural; Size: 32 Fr; Drainage System: Cornish/nonsuction water seal drainage; Removal Date: 06/05/25 05/27/25 1702 by Arturo Melendez RN 06/05/25 0000 by Selin Daily RN Negative Pressure Wound Therapy 05/27/25; 1749; N; Feliciano Tucker MD; Yes; Sternum; 06/02/25; 1802 05/27/25 1749 by Arturo Melendez RN 06/02/25 180 by Heavenly Magana RN documented in this encounter Social History [...] declined 03/14/2025 How often do you attend sikhism or voodoo serv ices? Patient declined 03/14/2025 Do you belong to any clubs o r organizations such as sikhism groups, unions, fraternal or athletic groups, or [...] drinks on one occasion? Patient declined 03/14/2025 [facility] - [...] Miscellaneous Notes * Anesthesia Postprocedure Evaluation - Miguel Ángel Malave MD - 05/27/2025 6:55 PM EDT Patient: Joi Marcial Anesthesia Type: general Vitals Value Taken Time BP 119/74 05/27/25 18:55 Temp 36.7 ??C (98.06 ??F) 05/27/25 18:53 Pulse 71 05/27/25 18:53 Resp 14 05/27/25 18:53 SpO2 91 % 05/27/25 18:53 Vitals shown include unfiled device data. Anesthesia Post Evaluation Patient location during evaluation: ICU Level of consciousness: sedated Pain management: adequate (pain score 0-3) Airway patency: endotracheal device Cardiovascular status: hemodynamically unstable Respiratory status: ETT Hydration status: acceptable Comments: Patient was transported to the ICU while being monitored. Handoff was given to ICU team at bedside No notable events documented. * Anesthesia Procedure Notes - Miguel Ángel Malave MD - 05/27/2025 5:40 PM EDT Associated Order(s): AJ Procedure Performed: AJ General Procedure Information Diagnostic Indications for AJ: assessment of ascending aorta, assessment of surgical repair Physician Requesting Echo: Jose C Nicholson MD Location performed: OR Modalities: 2D only, 3D only, continuous wave Dopper, pulse wave doppler and color flow mapping Intubated Bite block placed Heart visualized Probe Insertion: Easy Probe Type: Multiplane Preanesthesia Checklist: Patient identified, IV checked, site marked, risks and benefits discussed, surgical consent, monitors and equipment checked, pre-op evaluation and timeout performed. Echocardiographic and Doppler Measurements Ventricles Right Ventricle: Cavity size mildly dilated. Thrombus not present. Global function normal. Left Ventricle: Cavity size normal. Thrombus not present. Global Function normal. Ventricular Regional Function: Wall Motion Comments: No wall motion abnormalities Valves Aortic Valve: Annulus normal. Stenosis not present. Regurgitation absent. Leaflets normal. Leaflet motions normal. Mitral Valve: Annulus normal. Stenosis not present. Regurgitation absent. Leaflets normal. Leaflet motions normal. Tricuspid Valve: Annulus normal. Stenosis not present. Regurgitation absent. Leaflets normal. Leaflet motions normal. Pulmonic Valve: Annulus normal. Stenosis not present. Regurgitation absent. Leaflets normal. Aorta Ascending Aorta: Size aneurysmal. Dissection not present. Plaque thickness less than 3 mm. Mobile plaque not present. Aortic Arch: Size aneurysmal. Dissection not present. Plaque thickness less than 3 mm. Mobile plaque not present. Descending Aorta: Size aneurysmal. Dissection not present. Plaque thickness less than 3 mm. Mobile plaque not present. 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 Spontaneous echo contrast not present. Thrombus not present. Tumor not present. Devicepresent. Left Atrium: Size normal. Spontaneous echo contrast not present. Thrombus not present. Tumor not present. Devicenot present. Left atrial appendage normal. Septa Atrial Septum: Intra-atrial septal morphology normal. Diastolic Function Measurements: Diastolic Dysfunction Grade= indeterminate E= ms A= ms E/A Ratio= DT= ms S/D= IVRT= ms Other Findings Pericardium: normal Pleural Effusion: none Pulmonary Arteries: normal Postprocedure Post Cardiac Surgery/Repair: Right ventricular post CPB function is preserved. Left ventricular post CPB function is preserved. All valve function preserved. Status: Aorta intact after decannulation. Information obtained during AJ exam relayed to the referring surgeon/physician. Anesthesia Information Performed Other Anesthesia Staff Anesthesiologist: Miguel Ángel Malave MD Additional Anesthesia Staff: Belgica Chris MD Echocardiogram Comments: ATTENDING ATTESTATION: I was present and supervised the entire procedure * Anesthesia Procedure Notes - Miguel Ángel Malave MD - 05/27/2025 9:09 AM EDT Associated Order(s): Central Venous Line Central Venous Line: Date/Time: 05/27/2025 7:40 AM A central venous line was placed in the OR for the following indication(s): central venous access and CVP monitoring. Sterility preparation included the following: provider hand hygiene performed prior to central venous catheter insertion, all 5 sterile barriers used (gloves, gown, cap, mask, large sterile drape) during central venous catheter insertion, antiseptic used during central venous catheter insertion andskin prep agent completely dried prior to procedure. The patient was placed in Trendelenburg position. Right internal jugular vein was prepped. The site was prepped with Chlorhexidine. A 9 Fr (size), 10 (length), introducer single lumen was placed. During the procedure, the following specific steps were taken: target vein identified, needle advanced into vein and blood aspirated and guidewire advanced into vein. Seldinger technique used Procedure performed using ultrasound guidance Sterile gel and probe cover used in ultrasound-guided central venous catheter insertion. Intravenous verification was obtained by ultrasound and venous blood return. Post insertion care included: all ports aspirated, all ports flushed easily, guidewire removed intact, Biopatch applied, line sutured in place and dressing applied. During the procedure the patient experienced: patient tolerated procedure well with no complications. Additional notes: ATTENDING ATTESTATION: I was present and supervised the entire procedure Staffing Performed: Other Anesthesia Staff Anesthesiologist: Mgiuel Ángel Malave MD Other anesthesia staff: Belgica Chris MD * Anesthesia Procedure Notes - Miguel Ángel Malave MD - 05/27/2025 9:08 AM EDT Associated Order(s): Central Venous Line Central Venous Line: Date/Time: 05/27/2025 7:40 AM A central venous line was placed in the OR for the following indication(s): central venous access and CVP monitoring. Sterility preparation included the following: provider hand hygiene performed prior to central venous catheter insertion, all 5 sterile barriers used (gloves, gown, cap, mask, large sterile drape) during central venous catheter insertion, antiseptic used during central venous catheter insertion andskin prep agent completely dried prior to procedure. The patient was placed in Trendelenburg position. Right internal jugular vein was prepped. The site was prepped with Chlorhexidine. A 9 Fr (size), 20 (length), introducer double lumen was placed. During the procedure, the following specific steps were taken: target vein identified, needle advanced into vein and blood aspirated and guidewire advanced into vein. Seldinger technique used Procedure performed using ultrasound guidance Sterile gel and probe cover used in ultrasound-guided central venous catheter insertion. Intravenous verification was obtained by ultrasound, venous blood return and manometry. Post insertion care included: all ports aspirated, all ports flushed easily, guidewire removed intact, Biopatch applied, line sutured in place and dressing applied. During the procedure the patient experienced: patient tolerated procedure well with no complications. PA Catheter Placed A oximetric, 7.5 (size) Pulmonary Artery Catheter (PAC) was placed through the Introducer CVL in the right internal jugular vein. The PAC placement was confirmed by pressure tracing changes and AJ. The patient experienced the following events during the procedure: patient tolerated procedure wellwith no complications. Additional notes: ATTENDING ATTESTATION: I was present and supervised the entire procedure Staffing Performed: Other Anesthesia Staff Anesthesiologist: Miguel Ángel Malave MD Other anesthesia staff: Belgica Chris MD * Anesthesia Procedure Notes - Miguel Ángel Malave MD - 05/27/2025 7:29 AM EDT Associated Order(s): Arterial Line Arterial Line: An arterial line was placed. Procedure performed using ultrasound guidance in the pre-op for the following indication(s): continuous blood pressure monitoring and blood sampling needed. A 20 gauge (size), 1 and 3/4 inch (length), Arrow (type) catheter was placed into the Right radial artery and secured by suture. Seldinger technique used Events: patient tolerated procedure well with no complications. Additional notes: ATTENDING ATTESTATION: I was present and supervised the entire procedure Staffing Performed: Other Anesthesia Staff Anesthesiologist: Miguel Ángel Malave MD Other anesthesia staff: Belgica Chris MD * Anesthesia Procedure Notes - Miguel Ángel Malave MD - 05/27/2025 7:28 AM EDT Associated Order(s): Airway Airway Date/Time: 05/27/2025 7:25 AM Reason: elective Airway not difficult General Information and Staff Patient location during procedure: OR Anesthesiologist: Miguel Ángel Malave MD Other anesthesia staff: Belgica Chris MD Performed: Other Anesthesia Staff Patient Condition Indications for airway management: anesthesia Patient position: sniffing Final Airway Details Final airway type: endotracheal airway Successful airway: ETT Cuffed: yes Successful intubation technique: direct laryngoscopy Adjuncts used in placement: intubating stylet Endotracheal tube insertion site: oral Blade: Charly Blade size: #3 ETT size (mm): 8.0 Cormack-Lehane Classification: grade I - full view of glottis Placement verified by: chest auscultation and capnometry Measured from: lips ETT to lips (cm): 20 Additional Comments Atraumatic. No change to dentition. ATTENDING ATTESTATION: I was present and supervised the entire procedure * Anesthesia Preprocedure Evaluation - Miguel Ángel Malave MD - 05/26/2025 6:49 PM EDT Anesthesiologist: (Unknown) Channel Opener Outsoles: (Unknown) Patient: Joi Marcial is a 70 y.o. female with body mass index is unknown because there is no height or weight on file. 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) (+) Asymptomatic stenosis of right carotid artery (+) Cerebral venous sinus thrombosis (+) Hypertension ALLERGIES Allergies[1] NPO STATUS Past Medical History[2] AIRWAY HISTORY Airway Detailed Review Displaying the 20 most recent records Date Difficult Airway Blade Size ETT Size C-L Class Final Type Intubation Method 03/13/25 No 4 7.0 grade I - full view of glottis endotracheal airway direct laryngoscopy MEDICATIONS Outpatient Current Outpatient Medications Medication Instructions ALPRAZolam (XANAX) 0.5 mg, 2 times daily amLODIPine (NORVASC) 2.5 mg, Daily aspirin 81 mg, Oral, Daily atorvastatin (LIPITOR) 40 mg, Oral, Daily atorvastatin (LIPITOR) 40 mg, Oral, Daily bisoprolol (ZEBETA) 10 mg, Nightly clopidogrel (PLAVIX) 75 mg, Oral, Daily D-5000 5,000 Units, ZZ Daily RT hydroCHLOROthiazide (HYDRODIURIL) 50 mg, Daily lisinopril 20 mg, Nightly Multiple Vitamins-Minerals (CENTRUM SILVER 50+WOMEN PO) Take by mouth. mupirocin (Bactroban) 2 % ointment 1 Application, Topical, 2 times daily, Apply to each nostril twice daily for 5 days before surgery. naloxone (NARCAN) 4 mg, Nasal, As needed PARoxetine (PAXIL) 20 mg, Daily Scheduled Current Scheduled Medications[3] PRNs Current PRN Medications[4] SURGICAL HX: Surgical History[5] SOCIAL HX: Social History[6] OBJECTIVE DATA LABS Lab Results Component Value Date WBC 8.48 05/14/2025 HGB 12.6 05/14/2025 HCT 39.4 05/14/2025 MCV 89 05/14/2025 PLT 271 05/14/2025 Lab Results Component Value Date CALCIUM 10.2 05/14/2025 BUN 23 05/14/2025 CREATININE 0.98 05/14/2025 BCR 23 05/14/2025 NA 140 05/14/2025 K 3.7 05/14/2025 CL 101 05/14/2025 CO2 25 05/14/2025 Type and Screen No results found for: ABO Lab Results Component Value Date HGBA1C 5.4 05/14/2025 Lab Results Component Value Date GLUCOSE 105 (H) 05/14/2025 ABG Lab Results Component Value Date NCG1SOS 24 03/13/2025 LACTATE 0.8 03/13/2025 Lab Results Component Value Date PH 7.45 (H) 03/13/2025 PCO2 35 03/13/2025 PO2 272 03/13/2025 [id number] 98 03/13/2025 BASEEXC 0.1 03/13/2025 HCTSYR 33.2 (L) 03/13/2025 KSYR 3.2 (L) 03/13/2025 CLSYR 108 (H) 03/13/2025 GLUSYR 103 (H) 03/13/2025 CAION 4.4 (L) 03/13/2025 LACTATE 0.8 03/13/2025 ECHO No echocardiogram results found for the past 12 months PFTs FEV1 PRE (L) Date/Time Value 03/10/2025 1529 2.59 FEV1 PRED (no units) Date/Time Value 03/10/2025 1529 2.33 [id number] (L) Date/Time Value 03/10/2025 1529 3.11 FVC PRED (no units) Date/Time Value 03/10/2025 1529 3.02 BP Readings from Last 5 Encounters: 05/21/25 114/68 05/14/25 130/79 03/19/25 118/67 03/14/25 (!) 103/19 02/26/25 (!) 157/80 Physical Exam Airway Mallampati: II Mouth opening: normal Cardiovascular Rhythm: regular Rate: normal Dental - normal exam Pulmonary Breath sounds clear to auscultation Neurological Oriented: normal to time, normal to place and normal to person Skin Musculoskeletal Extremities Anesthesia Plan ASA 4 Anesthesia technique(s) discussed with the patient/family: general Anesthesia plan agreed upon was: general Anesthetic plan and risks discussed with patient. Use of blood products discussed with patient who. ROS Cardiovascular: hyperlipidemia. hypertension: Cardio additional comments: Aortic root, ascending and descending aortic aneurysm with intramural thrombus in the descending Trace AI . Respiratory: Respiratory ROS additional comments: Former smoker (quit 2017) Neurological: Neuro additional comments: R carotid artery stenosis s/p TCAR 02/2025 Cerebral venous sinus thrombus Gastrointestinal: GI/ additional comments: OA on steroid injections Hematological/Lymphatic: Hem/Lymph ROS additional comments: On Eliquis LAST DOSE: [1] No Known Allergies [2] Past Medical History: Diagnosis Date Aneurysm (CMS/HCC) 2024 Hyperlipidemia Hypertension 1989 Obesity [3] [4] [5] Past Surgical History: Procedure Laterality Date BACK SURGERY CHOLECYSTECTOMY 1972 FOOT SURGERY HYSTERECTOMY TOTAL HIP ARTHROPLASTY Left [6] Social History Tobacco Use Smoking status: Former Types: Cigarettes Passive exposure: Past Tobacco comments: Quit smoking 2018 smoked 1ppd for 40 years Vaping Use Vaping status: Never Used Substance Use Topics Alcohol use: Defer Drug use: Yes Types: Marijuana documented in this encounter Plan of Treatment Upcoming Encounters Date Type Department Care Team (Late st Contact Info) Description 06/25/2025 9:45 AM EDT Office Visit [facility] [address], [address] [place] [address] Jose C Nicholson MD [address] [facility] [address] [place] [address] 08/07/2025 12:20 PM EST Appointment [facility] [address] [place] [address] 08/07/2025 1:40 PM EST Office Visit [facility] [address] [facility] 5th Floor [address] [place] [address] Cedrick Franz MD [address] [facility] [address] [place] [address] documented as of this encounter Procedures Procedure Name Priority Date/Time Associated Diagnosis Comments PB ANESTHESIA NON-TIMED PROCEDURE PLACEHOLDER Routine 05/27/2025 5:40 PM EDT ANESTHESIA ULTRASOUND GUIDED Routine 05/27/2025 7:40 AM EDT PB ANESTHESIA NON-TIMED PROCEDURE PLACEHOLDER Routine 05/27/2025 7:40 AM EDT AL AN CENTRAL LINE SINGLE LUMEN Routine 05/27/2025 7:40 AM EDT AL INSERT/PLACE FLOW DIRECT CATH Routine 05/27/2025 7:40 AM EDT ANESTHESIA ULTRASOUND GUIDED Routine 05/27/2025 7:40 AM EDT PB ANESTHESIA NON-TIMED PROCEDURE PLACEHOLDER Routine 05/27/2025 7:40 AM EDT AL AN CENTRAL LINE DOUBLE LUMEN Routine 05/27/2025 7:40 AM EDT PB ANESTHESIA NON-TIMED PROCEDURE PLACEHOLDER Routine 05/27/2025 7:29 AM EDT PB ANESTHESIA PLACEHOLDER Routine 05/27/2025 7:25 AM EDT AL AN ELECTIVE ENDOTRACHEAL AIRWAY Routine 05/27/2025 7:25 AM EDT documented in this encounter Results * PB ANESTHESIA NON-TIMED PROCEDURE PLACEHOLDER (05/27/2025 5:40 PM EDT) BSA 1.82 m2 CAR DO NOT SEND Anatomical Region Laterality Modality Other Narrative 05/27/2025 5:40 PM EDT Miguel Ángel Malave MD 05/27/2025 7:20 PM Procedure Performed: AJ General Procedure Information Diagnostic Indications for AJ: assessment of ascending aorta, assessment of surgical repair Physician Requesting Echo: Jose C Nicholson MD Location performed: OR Modalities: 2D only, 3D only, continuous wave Dopper, pulse wave doppler and color flow mapping Intubated Bite block placed Heart visualized Probe Insertion: Easy Probe Type: Multiplane Preanesthesia Checklist: Patient identified, IV checked, site marked, risks and benefits discussed, surgical consent, monitors and equipment checked, pre-op evaluation and timeout performed. Echocardiographic and Doppler Measurements Ventricles Right Ventricle: Cavity size mildly dilated. Thrombus not present. Global function normal. Left Ventricle: Cavity size normal. Thrombus not present. Global Function normal. Ventricular Regional Function: Wall Motion Comments: No wall motion abnormalities Valves Aortic Valve: Annulus normal. Stenosis not present. Regurgitation absent. Leaflets normal. Leaflet motions normal. Mitral Valve: Annulus normal. Stenosis not present. Regurgitation absent. Leaflets normal. Leaflet motions normal. Tricuspid Valve: Annulus normal. Stenosis not present. Regurgitation absent. Leaflets normal. Leaflet motions normal. Pulmonic Valve: Annulus normal. Stenosis not present. Regurgitation absent. Leaflets normal. Aorta Ascending Aorta: Size aneurysmal. Dissection not present. Plaque thickness less than 3 mm. Mobile plaque not present. Aortic Arch: Size aneurysmal. Dissection not present. Plaque thickness less than 3 mm. Mobile plaque not present. Descending Aorta: Size aneurysmal. Dissection not present. Plaque thickness less than 3 mm. Mobile plaque not present. 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 Spontaneous echo contrast not present. Thrombus not present. Tumor not present. Device present. Left Atrium: Size normal. Spontaneous echo contrast not present. Thrombus not present. Tumor not present. Device not present. Left atrial appendage normal. Septa Atrial Septum: Intra-atrial septal morphology normal. Diastolic Function Measurements: Diastolic Dysfunction Grade= indeterminate E= ms A= ms E/A Ratio= DT= ms S/D= IVRT= ms Other Findings Pericardium: normal Pleural Effusion: none Pulmonary Arteries: normal Postprocedure Post Cardiac Surgery/Repair: Right ventricular post CPB function is preserved. Left ventricular post CPB function is preserved. All valve function preserved. Status: Aorta intact after decannulation. Information obtained during AJ exam relayed to the referring surgeon/physician. Anesthesia Information Performed Other Anesthesia Staff Anesthesiologist: Miguel Ángel Malave MD Additional Anesthesia Staff: Belgica Chris MD Echocardiogram Comments: ATTENDING ATTESTATION: I was present and supervised the entire procedure us Miguel Ángel Malave MD ANESTHESIA ORDERABLES Edite d Result - Final * AL AN CENTRAL LINE SINGLE LUMEN, PB ANESTHESIA NON-TIMED PROCEDURE PLACEHOLDER, ANESTHESIA ULTRASOUND GUIDED (05/27/2025 7:40 AM EDT) Narrative Miguel Ángel Malave MD - 05/27/2025 7:40 AM EDT Miguel Ángel Malave MD 05/27/2025 10:27 AM Central Venous Line: Date/Time: 05/27/2025 7:40 AM A central venous line was placed in the OR for the following indication(s): central venous access and CVP monitoring. Sterility preparation included the following: provider hand hygiene performed prior to central venous catheter insertion, all 5 sterile barriers used (gloves, gown, cap, mask, large sterile drape) during central venous catheter insertion, antiseptic used during central venous catheter insertion and skin prep agent completely dried prior to procedure. The patient was placed in Trendelenburg position. Right internal jugular vein was prepped. The site was prepped with Chlorhexidine. A 9 Fr (size), 10 (length), introducer single lumen was placed. During the procedure, the following specific steps were taken: target vein identified, needle advanced into vein and blood aspirated and guidewire advanced into vein. Seldinger technique used Procedure performed using ultrasound guidance Sterile gel and probe cover used in ultrasound-guided central venous catheter insertion. Intravenous verification was obtained by ultrasound and venous blood return. Post insertion care included: all ports aspirated, all ports flushed easily, guidewire removed intact, Biopatch applied, line sutured in place and dressing applied. During the procedure the patient experienced: patient tolerated procedure well with no complications. Additional notes: ATTENDING ATTESTATION: I was present and supervised the entire procedure Staffing Performed: Other Anesthesia Staff Anesthesiologist: Miguel Ángel Malave MD Other anesthesia staff: Belgica Chris MD Miguel Ángel Malave MD ANESTHESIA ORDERABLES Final Result * AL AN CENTRAL LINE DOUBLE LUMEN, PB ANESTHESIA NON-TIMED PROCEDURE PLACEHOLDER, ANESTHESIA ULTRASOUND GUIDED, AL INSERT/PLACE FLOW DIRECT CATH (05/27/2025 7:40 AM EDT) Narrative Miguel Ángel Malave MD - 05/27/2025 7:40 AM EDT Miguel Ángel Malave MD 05/27/2025 10:27 AM Central Venous Line: Date/Time: 05/27/2025 7:40 AM A central venous line was placed in the OR for the following indication(s): central venous access and CVP monitoring. Sterility preparation included the following: provider hand hygiene performed prior to central venous catheter insertion, all 5 sterile barriers used (gloves, gown, cap, mask, large sterile drape) during central venous catheter insertion, antiseptic used during central venous catheter insertion and skin prep agent completely dried prior to procedure. The patient was placed in Trendelenburg position. Right internal jugular vein was prepped. The site was prepped with Chlorhexidine. A 9 Fr (size), 20 (length), introducer double lumen was placed. During the procedure, the following specific steps were taken: target vein identified, needle advanced into vein and blood aspirated and guidewire advanced into vein. Seldinger technique used Procedure performed using ultrasound guidance Sterile gel and probe cover used in ultrasound-guided central venous catheter insertion. Intravenous verification was obtained by ultrasound, venous blood return and manometry. Post insertion care included: all ports aspirated, all ports flushed easily, guidewire removed intact, Biopatch applied, line sutured in place and dressing applied. During the procedure the patient experienced: patient tolerated procedure well with no complications. PA Catheter Placed A oximetric, 7.5 (size) Pulmonary Artery Catheter (PAC) was placed through the Introducer CVL in the right internal jugular vein. The PAC placement was confirmed by pressure tracing changes and AJ. The patient experienced the following events during the procedure: patient tolerated procedure well with no complications. Additional notes: ATTENDING ATTESTATION: I was present and supervised the entire procedure Staffing Performed: Other Anesthesia Staff Anesthesiologist: Miguel Ángel Malave MD Other anesthesia staff: Belgica Chris MD Miguel Ángel Malave MD ANESTHESIA ORDERABLES Final Result * PB ANESTHESIA NON-TIMED PROCEDURE PLACEHOLDER (05/27/2025 7:29 AM EDT) Narrative Miguel Ángel Malave MD - 05/27/2025 7:29 AM EDT Miguel Ángel Malave MD 05/27/2025 8:50 AM Arterial Line: An arterial line was placed. Procedure performed using ultrasound guidance in the pre-op for the following indication(s): continuous blood pressure monitoring and blood sampling needed. A 20 gauge (size), 1 and 3/4 inch (length), Arrow (type) catheter was placed into the Right radial artery and secured by suture. Seldinger technique used Events: patient tolerated procedure well with no complications. Additional notes: ATTENDING ATTESTATION: I was present and supervised the entire procedure Staffing Performed: Other Anesthesia Staff Anesthesiologist: Miguel Ángel Malave MD Other anesthesia staff: Belgica Chris MD Miguel Ángel Malave MD ANESTHESIA ORDERABLES Final Result * AL AN ELECTIVE ENDOTRACHEAL AIRWAY, PB ANESTHESIA PLACEHOLDER (05/27/2025 7:25 AM EDT) Narrative Miguel Ángel Malave MD - 05/27/2025 7:25 AM EDT Miguel Ángel Malave MD 05/27/2025 8:50 AM Airway Date/Time: 05/27/2025 7:25 AM Reason: elective Airway not difficult General Information and Staff Patient location during procedure: OR Anesthesiologist: Miguel Ángel Malave MD Other anesthesia staff: Belgica Chris MD Performed: Other Anesthesia Staff Patient Condition Indications for airway management: anesthesia Patient position: sniffing Final Airway Details Final airway type: endotracheal airway Successful airway: ETT Cuffed: yes Successful intubation technique: direct laryngoscopy Adjuncts used in placement: intubating stylet Endotracheal tube insertion site: oral Blade: Charly Blade size: #3 ETT size (mm): 8.0 Cormack-Lehane Classification: grade I - full view of glottis Placement verified by: chest auscultation and capnometry Measured from: lips ETT to lips (cm): 20 Additional Comments Atraumatic. No change to dentition. ATTENDING ATTESTATION: I was present and supervised the entire procedure Miguel Ángel Malave MD ANESTHESIA ORDERABLES Final Result documented in this encounter Visit Diagnoses Not on filedocumented in this encounter Administered Medications Inactive Administered Medications - up to 3 most recent administrations Medication Order MAR Action Action Date Dose Rate Site albumin human 5 % infusion Intravenous, As needed, Starting on Mon05/27/25 at 1618, Until Mon05/27/25 at 1855, Routine, Anesthesia Intraprocedure Given 05/27/2025 4:18 PM EDT 500 mL calcium chloride 10 % injection Intravenous, As needed, Starting on Mon05/27/25 at 1455, Until Mon05/27/25 at 1855, Routine, Anesthesia Intraprocedure Given 05/27/2025 4:58 PM EDT 0.2 g Given 05/27/2025 4:19 PM EDT 0.4 g Given 05/27/2025 3:55 PM EDT 0.3 g Cardioplegia del Nido Formula OR infusion Perfusion, As needed, Starting on Mon05/27/25 at 1104, Until Mon05/27/25 at 185, Routine Given 05/27/2025 1:46 PM EDT 5 00 mL Given 05/27/2025 12:40 PM EDT 500 mL Given 05/27/2025 11:04 AM EDT 500 mL ceFAZolin (Ancef) injection 2 g 2 g, Intravenous, Once, 1 dose, On Mon05/27/25 at 0800, Routine, Anesthesia Intraprocedure Given 05/27/2025 4:15 PM EDT 2 g Given 05/27/2025 12:16 PM EDT 2 g Given 05/27/2025 8:05 AM EDT 2 g clevidipine (Cleviprex) 0.5 MG/ML infusion Intravenous, Continuous PRN, Starting on Mon05/27/25 at 1552, Until Mon05/27/25 at 185, Routine, Anesthesia Intraprocedure Rate/Dose Change 05/27/2025 6:47 PM EDT 5 mg/hr 10 mL/hr Rate/Dose Change 05/27/2025 6:38 PM EDT 8 mg/hr 16 mL/h r Rate/Dose Change 05/27/2025 6:23 PM EDT 10 mg/hr 20 mL/h r desmopressin (DDAVP) 21 mcg in sodium chloride 0.9 % 50 mL IVPB Intravenous, Continuous PRN, Starting on Mon05/27/25 at 1537, Until Mon05/27/25 at 185, Administer over 15 Minutes, Routine New Bag 05/27/2025 3:37 PM EDT 21 mcg dexmedetomidine (Precedex) 100 MCG/ML concentrated solution Intravenous, As needed, Starting on Mon05/27/25 at 0709, Until Mon05/27/25 at 185, Routine, Anesthesia Intraprocedure Given 05/27/2025 8:01 AM EDT 40 mcg Given 05/27/2025 7:39 AM EDT 40 mcg Given 05/27/2025 7:31 AM EDT 40 mcg fentaNYL (Sublimaze) injection Intravenous, As needed, Starting on Mon05/27/25 at 0719, Until Mon05/27/25 at 185, Routine, Anesthesia Intraprocedure Given 05/27/2025 3:52 PM EDT 150 mcg Given 05/27/2025 10:31 AM EDT 100 mcg Given 05/27/2025 8:59 AM EDT 150 mcg glycopyrrolate (Robinul) injection Intravenous, As needed, Starting on Mon05/27/25 at 1458, Until Mon05/27/25 at 185, Routine, Anesthesia Intraprocedure Given 05/27/2025 2:58 PM EDT 0.2 mg heparin (porcine) injection Intravenous, As needed, Starting on Mon05/27/25 at 0917, Until Mon05/27/25 at 185, Routine, Anesthesia Intraprocedure Given 05/27/2025 10:03 AM EDT 10,000 Units Given 05/27/2025 9:17 AM EDT 28,000 Units heparin (porcine) injection Intravenous, As needed, Starting on Mon05/27/25 at 1051, Until Mon05/27/25 at 185, Routine, Anesthesia Intraprocedure Given 05/27/2025 10:51 AM EDT 10,000 Units HYDROmorphone (Dilaudid) injection Intravenous, As needed, Starting on Mon05/27/25 at 1708, Until Mon05/27/25 at 185, Routine, Anesthesia Intraprocedure Given 05/27/2025 5:08 PM EDT 1 mg insulin regular (HumuLIN R,NovoLIN R) 100 Units in sodium chloride 0.9 % 100 mL infusion Intravenous, Continuous PRN, Starting on Mon05/27/25 at 1449, Until Mon05/27/25 at 185, Routine New Bag 05/27/2025 2:49 PM EDT 2 Units/hr 2 mL/hr lactated Ringer's infusion Intravenous, Continuous PRN, Starting on Mon05/27/25 at 0659, Until Mon05/27/25 at 1855, Routine New Bag 05/27/2025 6:59 AM EDT lidocaine PF (Xylocaine) 2 % injection Intravenous, As needed, Starting on Mon05/27/25 at 0719, Until Mon05/27/25 at 185, Routine, Anesthesia Intraprocedure Given 05/27/2025 7:19 AM EDT 70 mg magnesium sulfate 4 g in sodium chloride 0.9 % 100 mL IVPB Intravenous, Continuous PRN, Starting on Mon05/27/25 at 1418, Until Mon05/27/25 at 185, Routine New Bag 05/27/2025 2:18 PM EDT 4 g mannitol 20 % infusion Intravenous, As needed, Starting on Mon05/27/25 at 1254, Until Mon05/27/25 at 185, Administer over 15 Minutes, Routine Given 05/27/2025 12:54 PM EDT 12.5 g midazolam (Versed) injection Intravenous, As needed, Starting on Mon05/27/25 at 0705, Until Mon05/27/25 at 185, Routine, Anesthesia Intraprocedure Given 05/27/2025 2:17 PM EDT 3 mg Given 05/27/2025 11:53 AM EDT 2 mg Given 05/27/2025 7:19 AM EDT 3 mg nitroglycerin (Tridil) 50 mg in 250 mL D5W (200 mcg/mL) infusion Intravenous, Continuous PRN, Starting on Mon05/27/25 at 1054, Until Mon05/27/25 at 185, STAT, Anesthesia Intraprocedure Rate/Dose Change 05/27/2025 3:26 PM EDT 0.1 mcg/kg/min 2.136 mL/hr Restarted 05/27/2025 3:24 PM EDT 0.2 mcg/kg/min 4.272 mL/ hr Rate/Dose Change 05/27/2025 2:15 PM EDT 0.2 mcg/kg/min 4.2 72 mL/hr nitroglycerin (Tridil) in D5W IV solution 100 mcg/mL Intravenous, As needed, Starting on Mon05/27/25 at 1029, Until Mon05/27/25 at 185, Routine, Anesthesia Intraprocedure Given 05/27/2025 4:39 PM EDT 100 mcg Given 05/27/2025 10:30 AM EDT 50 mcg Given 05/27/2025 10:29 AM EDT 50 mcg norepinephrine infusion 8 mg in 250 mL NS (0.032 mg/mL) (compounding pharmacy premix) Intravenous, Continuous PRN, Starting on Mon05/27/25 at 0927, Until Mon05/27/25 at 1855, STAT, Anesthesia Intraprocedure Rate/Dose Change 05/27/2025 9:54 AM EDT 0.04 mcg/kg/min 5.34 mL/hr Rate/Dose Change 05/27/2025 9:44 AM EDT 0.02 mcg/kg/min 2. 67 mL/hr Rate/Dose Change 05/27/2025 9:32 AM EDT 0.04 mcg/kg/min 5. 34 mL/hr phenylephrine (Vazculep) injection Intravenous, As needed, Starting on Mon05/27/25 at 1106, Until Mon05/27/25 at 185, Routine, Anesthesia Intraprocedure Given 05/27/2025 11:51 AM EDT 100 mcg Given 05/27/2025 11:42 AM EDT 100 mcg Given 05/27/2025 11:26 AM EDT 200 mcg phenylephrine in NS (Lázaro-Synephrine) 100 mcg/mL prefilled syringe Intravenous, As needed, Starting on Mon05/27/25 at 0748, Until Mon05/27/25 at 1855, Routine, Anesthesia Intraprocedure Given 05/27/2025 5:36 PM EDT 100 mcg Given 05/27/2025 10:18 AM EDT 100 mcg Given 05/27/2025 9:55 AM EDT 50 mcg propofol (Diprivan) infusion 10 mg/mL Intravenous, Continuous PRN, Starting on Mon05/27/25 at 1604, Until Mon05/27/25 at 1855, Routine Rate/Dose Change 05/27/2025 5:37 PM EDT 30 mcg/kg/min 12.816 mL/hr Rate/Dose Change 05/27/2025 4:13 PM EDT 50 mcg/kg/min 21.3 6 mL/hr New Bag 05/27/2025 4:04 PM EDT 25 mcg/kg/min 10.68 mL/h r propofol (Diprivan) injection Intravenous, As needed, Starting on Mon05/27/25 at 0722, Until Mon05/27/25 at 1855, Routine, Anesthesia Intraprocedure Given 05/27/2025 7:24 AM EDT 80 mg Given 05/27/2025 7:22 AM EDT 20 mg Given 05/27/2025 7:19 AM EDT 100 mg protamine injection Intravenous, As needed, Starting on Mon05/27/25 at 1537, Until Mon05/27/25 at 1855, Routine, Anesthesia Intraprocedure Given 05/27/2025 3:45 PM EDT 100 mg Given 05/27/2025 3:37 PM EDT 250 mg rocuronium (ZeMuron) injection Intravenous, As needed, Starting on Mon05/27/25 at 0721, Until Mon05/27/25 at 185, Routine, Anesthesia Intraprocedure Given 05/27/2025 4:48 PM EDT 20 mg Given 05/27/2025 2:15 PM EDT 20 mg Given 05/27/2025 12:13 PM EDT 30 mg sodium bicarbonate 8.4 % injection Intravenous, As needed, Starting on Mon05/27/25 at 1354, Until Mon05/27/25 at 1855, Routine, Anesthesia Intraprocedure Given 05/27/2025 2:38 PM EDT 50 mEq Given 05/27/2025 1:54 PM EDT 50 mEq sodium chloride 0.9 % infusion Intravenous, Continuous PRN, Starting on Mon05/27/25 at 0800, Until Mon05/27/25 at 1855, Routine Restarted 05/27/2025 1:52 PM EDT 50 mL/hr New Bag 05/27/2025 8:00 AM EDT 50 mL/hr sodium chloride 0.9 % infusion Intravenous, Continuous PRN, Starting on Mon05/27/25 at 0820, Until Mon05/27/25 at 185, Routine New Bag 05/27/2025 8:20 AM EDT tranexamic acid (Cyklokapron) 1,000 mg in sodium chloride 0.9 % 100 mL (10 mg/mL) IVPB Intravenous, Continuous PRN, Starting on Mon05/27/25 at 0826, Until Mon05/27/25 at 1855, Routine Restarted 05/27/2025 1:52 PM EDT 1 mg/kg/hr 7.12 mL/hr New Bag 05/27/2025 8:26 AM EDT 1 mg/kg/hr 7.12 mL/hr tranexamic acid (Cyklokapron) injection Intravenous, As needed, Starting on Mon05/27/25 at 0826, Until Mon05/27/25 at 1855, Routine, Anesthesia Intraprocedure Given 05/27/2025 8:26 AM EDT 700 mg Transfuse cryoprecipitate Routine New Bag 05/27/2025 3:34 PM EDT Transfuse cryoprecipitate Routine 05/27/2025 3:34 PM EDT Transfuse fresh frozen plasma Routine New Bag 05/27/2025 3:36 PM EDT Transfuse fresh frozen plasma Routine New Bag 05/27/2025 3:36 PM EDT Transfuse fresh frozen plasma Routine New Bag 05/27/2025 4:07 PM EDT Transfuse fresh frozen plasma Routine New Bag 05/27/2025 5:13 PM EDT Transfuse platelets Routine New Bag 05/27/2025 3:34 PM EDT Transfuse platelets Routine New Bag 05/27/2025 3:34 PM EDT Transfuse platelets Routine New Bag 05/27/2025 4:07 PM EDT Transfuse RBC Routine New Bag 05/27/2025 9:25 AM EDT Transfuse RBC Routine New Bag 05/27/2025 11:18 AM EDT Transfuse RBC Routine New Bag 05/27/2025 2:12 PM EDT Transfuse RBC Routine New Bag 05/27/2025 3:22 PM EDT Transfuse RBC Routine New Bag 05/27/2025 4:50 PM EDT Vancomycin HCl in NaCl (Vancocin) IVPB 1,000 mg 1,000 mg (rounded from 1,062 mg = 15 mg/kg 70.8 kg), Intravenous, Once, 1 dose, On Mon05/27/25 at 0800, at 250 mL/hr, STAT Given 05/27/2025 8:00 AM EDT 1 g documented in this encounter Additional Health Concerns Assessment Noted Time A fall risk assessment has been complete d for the patient 05/21/2025 9:30 AM EDT A Body Mass Index follow-up plan has been documented for the patient 06/07/2025 11:45 AM EDT documented as of this encounter Care Teams Communications Tower Climber Relationship Specialty Start Date End Date Edwardo Sheehan MD [address] [place] [address] PCP - General 12/19/22 Jose R Umana MD [address] [facility] [address] [place] [address] Referring Physician Cardiology 01/23/25 Kevin Mancera MD [address] [facility] [address] [place] [address] Referring Physician 01/31/25 documented as of this encounter
--- OUTSIDE RECORDS SUMMARY | 2025-05-27 07:00 | XMS_ITS | Encounter Summary ---
Author Organization Healthcare Address [address] 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] Procedures NC -AORT GRF W/CARD BYP F/AORTIC DISSECTION Ascending Aortic Replacement, Hemiarch, Circulatory Arrest, Aortic Arch Debranching Jose C Nicholson MD [address] [address] Phone: tel: fax: [facility] [address] [place] [address] Phone: tel: Referral ID Status Reason Start Date Expiration Date Visits Re quested Visits Authorized [id number] 1 1 Encounter Details Date Type Department Care Team (Late st Contact Info) Description 05/27/2025 7:00 AM EDT - 05/27/2025 6:20 PM EDT Surgery [facility] [address] [place] [address] Jose C Nicholson MD [address] [address] Ascending Aortic Replacement, Hemiarch, Circulatory Arrest, Aortic Arch Debranching [96037 (CPT )] Surgery Details Date/Time Status Location OR Service Patient Class Case Class Case Type Trauma Case? 05/27/2025 7:00 AM Posted [facility] OR [facility] OR 10 Cardiothoracic Surgery Surgery Admit E-Elect siria Panel 1 Procedure LRB Anes Op Region Wound Class Comments Ascending Aortic Replacement , Hemiarch, Circulatory Arrest, Aortic Arch Debranching N/A General Chest Class I/ Clean Surgeon Surgeon Role Service Panel Jose C Nicholson MD Primary Cardiothoracic Surgery 1 documented in this encounter Social History [...] declined 03/14/2025 How often do you attend baptist or confucianist serv ices? Patient declined 03/14/2025 Do you belong to any clubs o r organizations such as baptist groups, unions, fraternal or athletic groups, or [...] drinks on one occasion? Patient declined 03/14/2025 [facility] - Occupational [...] the past 12 months has th e [employer], gas, oil, or water icix threatened to shut off services in your home? Patient declined 03/14/2025 Comments No Sex and Gender Information Value Date Recorded Sex Assigned at Not on file Legal Sex Female 7:38 PM EDT Gender Identity Not on file Sexual Orientation Not on file documented as of this encounter Last Filed Vital Signs Vital Sign Reading Time Taken Comments Blood Pressure 88/44 05/27/2025 6:08 AM EDT Pulse 44 05/27/2025 6:04 AM EDT Temperature 36.4 C (97.5 F) 05/27/2025 6:04 AM EDT Respiratory Rate 16 05/27/2025 6:04 AM EDT Oxygen Saturation 98% 05/27/2025 6:08 AM EDT Inhaled Oxygen Concentration - - Weight 71.2 kg (157 lb) 05/27/2025 6:23 AM EDT Height - - Body Mass Index 24.56 05/29/2025 7:39 AM EDT documented in this encounter Medications [...] day. 60 capsule 06/07/2025 5 HYDROcodone-acet aminophen ([place]) 5-325 MG tablet Take 1 tablet by [...] Goal (Individualized) Outcome: Met Flowsheets (Taken 06/07/2025 0800) Patient/Family-Specific Goals (Include Timeframe): Patient will use [...] VTE (Venous Thromboembolism) Risk Flowsheets (Taken 06/07/2025 0800) VTE Prevention/Management: medication SCDs (sequential compression devices) [...] (HOB) Positioning: HOB at 90 degrees Taken 06/02/202542 by Simón Cash RN Pressure Reduction Devices: positioning supports utilized Taken 06/01/2025236 by Elena Patrick RN [...] Management: hygiene measures promoted toileting offered Taken 06/02/202542 by Simón Cash RN Bowel Motility Enhancement: ambulation promoted Goal: Effective Cardiac Function Outcome: Met Goal: Optimal Cerebral Tissue Perfusion Outcome: Met Intervention: Protect and Optimize Cerebral Perfusion Flowsheets Taken 06/07/2025 1143 by Ca Burr RN Sensory Stimulation Regulation: care clustered Taken 06/07/2025 08 by Ca Burr RN Head of Bed [...] Contributors Flowsheets (Taken 06/04/2025 1622 by Ricki Giles RN) Medication Review/Management: medications reviewed Self-Care Promotion: [...] Outcome: Met Intervention: Promote Activity and Functional Keith Flowsheets Taken 06/07/2025 0935 by Ca Burr RN Activity Assistance Provided: assistance, stand-by Taken 06/04/2025 1622 by Ricki Giles RN Adaptive Equipment Use: use encouraged [...] Associated Problem(s): COPD (chronic obstructive pulmonary disease) ([facility]) -resume home meds as appropriate -Increased [...] indicated * Assessment & Plan Note - eHsham Strong MD - 06/07/2025 11:40 AM EDT [...] with 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 If applicable, patient is s/p Procedure(s) and Anesthesia Type: * Ascending Aortic Replacement, Hemiarch, Circulatory Arrest, Aortic Arch Debranching - General. Patient is 11 Days Post-Op with Cardiothoracic Surgery. Past 24 hours: PM: NAEO, ?transfer back to [facility] in AM? K+/Phos Replacement. AM: On RA. HDS. Tolerating PO. Ambulating and having BMS. Plan to dc home. Edited by: Hesham Strong MD at 06/07/2025 1139 Lines/Drains/Tubes: Patient Lines/Drains/Airways Status Active Active LDAs None GCS: [place] Coma Scale Score: 15 Review of Systems [...] as documented. * Discharge Summary - Georgie GreenSHAIN - 06/07/2025 10:46 AM EDT Hospitalization Admit Date/Time: 05/27/2025 5:34 AM Admitting Attending: Jose C Nicholson Discharge Date: 06/07/2025 Discharge Attending Physician: Jose C Nicholson MD PCP name and Address: Edwardo Sheehan MD [address] [place] [address] Referring provider name and address: No referring provider defined for this encounter. Chief Concern, Brief History of Present Illness, and Hospital Course Ms. Joi Marcial is a 70 year old female with PMH significant for hypertension, hyperlipidemia, COPD, cerebral venous sinus thrombosis, ascending and descending aortic aneurysms. Additionally she has 70-80% stenosis of proximal right ICA and left PLANISHER high grade stenosis. She was evaluated at [facility] with plans for staged repair including elephant trunk followed by endovascular repair howev er she wanted to be closer to home [...] HYDROcodone-acetaminophen 5-325 MG tablet Commonly known as: [place] Take 1 tablet by mouth every 4 [...] Your Medications These medications were sent to [facility] - [place], [place] - [address] [facility] [id number] apixaban 5 MG tablet DSS 100 MG [...] 06/25/2025 9:45 AM Jose C Nicholson MD [facility] 08/07/2025 12:[address] [facility] 08/07/2025 1:40 PM Cedrick Franz MD [facility] Test Results Pending At Discharge None Pertinent [...] Yes. COMMUNICATION: Per thiswritten report. An urgent Live [employer] secured message was sent to the responding [...] Yes. COMMUNICATION: Per thiswritten report. 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 If applicable, patient is s/p Procedure(s) [...] & Plan Note - Jaxon De La Rosa, TARIK, DNP - 06/06/2025 5:14 AM EDT Associated [...] Associated Problem(s): COPD (chronic obstructive pulmonary disease) ([facility]) -resume home meds as appropriate -Increased [...] AM: Edited by: Jaxon De La Rosa, SILVER RECOVERY OPERATOR, DNP at 06/06/2025 0506 Lines/Drains/Tubes: Patient Lines/Drains/Airways Status Active Active LDAs Name Placement date Placement time Site Days Peripheral IV 06/03/25 Left Antecubital 06/03/25 1700 Antecubital 2 Peripheral IV 06/05/25 Right Antecubital 06/05/25 2100 Antecubital less than 1 GCS: [place] Coma Scale Score: 15 Review of Systems [...] - statin COPD (chronic obstructive pulmonary disease) ([facility]/HCC) Present on Admission: Yes -resume home meds [...] Now improved, pt alert and oriented A-fib ([facility]) Present on Admission: No -Monitor per protocol. Electrolyte abnormality Present on Admission: Unknown -ICU electrolyte replacement protocol Cerebral venous sinus thrombosis Present on Admission: Yes -Resume Eliquis -AC per primary Pleural effusion Present on Admission: Unknown -Daily CXR -diuresis/drain as necessary Non-Hospital Problems Peripheral vascular disease ([facility]) (Chronic) Asymptomatic stenosis of right carotid artery Jaxon De La Rosa APRN, DNP * Progress Notes - Marisela Haq RN - 06/05/2025 11:28 AM EDT Case Management Adult Progress Note Joi Marcial 70 y.o. female CSN: [id number] Admission: 05/27/2025 5:34 AM Primary Problem: Aneurysm [...] so. Participants in Care Family/Caregiver Present: No Real Estate Teacher: Not Applicable Presentation Oxygen Therapy: None (Room [...] Transfer Exam: Sit to stand Level of Keith: Contact guard (With increased time.) Physical/Nonphysical Assist: Verbal Cues, Maximal cues, Set-up required Assistive Device: Rollator Transfer Exam: Stand to Sit Level of Keith: Contact guard Physical/Nonphysical Assist: Verbal Cues, Minimal [...] admission Level of Mobility Ambulatory- community Mobility Keith Independent gait without device History of Falls [...] Pt agreeable to therapy. Visitors Present No Real Estate Teacher (if applicable) OBJECTIVE PAIN Pain Score (0-10): [...] symptoms and drops in BP. Level of Keith Adaptive Equipment Utilized Comments Feeding Grooming SBA Standing sinkside Bathing Upper Body Dressing Minimum assistance Chair level Lower Body Dressing Pants Level of Assistance: SBA Toileting SBA Toilet IADLs Health Management Community Re-Entry BALANCE Postural Appearance Posture: Stooped posture, Rounded shoulders INTERVENTIONS Level of Keith Balance Support Comments Static Sit Supervision Feet [...] weight shifting to promote safety. Level of Keith Physical/Non-physical Assist Adaptive Equipment Utilized Rolling/ Turning [...] 5.98 ) , Body mass index is 24.56 kg/m??. VITALS (last 24h) Temp: [36.7 ??C (98 ??F)-36.8 ??C (98.2 ??F)] 36.8 ??C (98.2 ??F) Heart Rate: [77-107] 101 Resp: [10-33] 28 BP: (84-136)/(48-87) 105/80 Visit Vitals BP 105/80 Pulse 101 Temp 36.8 ??C (98.2 ??F) (Oral) Resp (!) 28 Ht 1.676 m (5' 5.98 ) Wt 69 kg (152 lb 1.9 [...] discovered on CT scans ordered by her motion picture critic. Additionally she has 70-80% stenosis of proximal right ICA and left PLANISHER high grade stenosis. She was evaluated at [facility] with plans for staged repair [...] Excedrin for caffeine withdraw JASON Cardiothoracic Surgery [phone] Addendum: 8014 her nurse reported recurrent afib. She's already [...] mg, Oral, Nightly [2] [3] PRN medications: dhjbtge-ndxoukzxlclve-ujoxnrkm, bisacodyl, HYDROcodone- acetaminophen OR HYDROcodone-acetaminophen, HYDROmorphone OR [...] Identify and Manage Fall Risk Flowsheets (Taken 06/04/2025 162) Safety Promotion/Fall Prevention: [...] Pain and Promote Comfort Flowsheets (Taken 06/04/2025 162) Pain Management Interventions: medication (see MAR) Intervention: [...] Progressing Intervention: Optimize Skin Protection Flowsheets Taken 06/04/20251621 Skin Protection: pulse oximeter probe site changed [...] Bowel Motility and Elimination Flowsheets (Taken 06/04/2025 162) Bowel Elimination Management: hygiene measures promoted toileting offered Goal: Effective Cardiac Function Outcome: Ongoing, Progressing Goal: Optimal Cerebral Tissue Perfusion Outcome: Ongoing, Progressing Intervention: Protect and Optimize Cerebral Perfusion Flowsheets (Taken 06/04/2025 162) Fever Reduction/Comfort Measures: lightweight clothing Sensory Stimulation Regulation: care clustered lighting decreased Cerebral Perfusion Promotion: blood pressure monitored Head of Bed (HOB) Positioning: HOB elevated Goal: Fluid and Electrolyte Balance Outcome: Ongoing, Progressing Goal: Acceptable Pain Control Outcome: Ongoing, Progressing Intervention: Prevent or Manage Pain Flowsheets (Taken 06/04/2025 162) Pain Management Interventions: medication (see MAR) Diversional Activities: smartphone Goal: Effective Urinary Elimination Outcome: Ongoing, Progressing Problem: Fall Injury Risk Goal: Absence of Fall and Fall-Related Injury Outcome: Ongoing, Progressing Intervention: Identify and Manage Contributors Flowsheets (Taken 06/04/20251621) Medication Review/Management: medications reviewed Self-Care Promotion: independence encouraged Intervention: Promote Injury-Free Environment Flowsheets (Taken 06/04/2025 162) Safety Promotion/Fall Prevention: activity supervised clutter-free environment maintained nonskid shoes/slippers when out of bed safety round/check completed Problem: Self-Care Deficit Goal: Improved Ability to Complete Activities of Daily Living Outcome: Ongoing, Progressing Intervention: Promote Activity and Functional Keith Flowsheets (Taken 06/04/20251621) Activity Assistance Provided: assistance, stand-by Adaptive Equipment Use: use encouraged Self-Care Promotion: independence encouraged * Consults - Shira Titus RD - 06/04/2025 4:20 PM EDT Adult Nutrition Evaluation Note Joi Marcial 70 y.o. female CSN: [id number] Room/Bed 237/237A Nutrition evaluation type: follow up [...] (Room air) O2 Delivery Method: Nasal cannula Kip Coma Scale Score: 15 John Scale Score: [...] (Calculated): 24.46 Weight Evaluation: Overweight (BMI 25-29.9) [place] Body Weight (kg): 59.1 Percent [place] Body Weight: 120 Estimated Needs: Kcal/ Kg: [...] Education Provided: Will monitor Pertinent home medications: Pentecostalism needs: Nutrition Focused Physical Exam: Physical exam [...] Marcial Age: 70 y.o. Today's Date: 06/04/2025 DEHAIRER Treatment Area(s): Swallow Treatment Time Dysphagia: 10 [...] as recommended following MBS study on 06/03/25. DEHAIRER grad clinician re- educated pt re: rationale [...] document with edits made. Deniz Rocha MA, CCC-DEHAIRER, BCS-S Speech Language Pathologist * Progress Notes [...] discovered on CT scans ordered by her motion picture critic. Additionally she has 70-80% stenosis of proximal right ICA and left PLANISHER high grade stenosis. She was evaluated at [facility] with plans for staged repair [...] unit pRBCs on 05/28. - Current H&H 10.6/33.2 - Monitor and transfuse as indicated Post [...] PT/OT, mobilize - Keep CTs Cardiothoracic Surgery [phone] [1] ALPRAZolam, 0.25 mg, Oral, BID aspirin, [...] , Ht Readings from Last 1 Encounters: 09/11/25 1.676 m (5' 5.98 ) , Body [...] - Change meds to oral Cardiothoracic Surgery [phone] [1] acetaminophen, 500 mg, Oral, q6h DANIEL [...] as pt prefers. Oral care after meals. DEHAIRER to follow. History Medical History: Joi Marcial [...] no effort is made to eject. (Fatou Mcnulty, et al. A penetration-aspiration scale. Dysphagia. 1996;11(2):93-8.) *The Dysphagia Outcome Severity Scale (LETY; [place], et al, 1999). The LETY is a [...] presents with low risk for nutritional compromise. DEHAIRER to follow. Dysphagia Outcome and Severity Scale (LETY) O'Betito ALEMAN, Jose Francisco Galaviz, Charles Lainez. et al. (1999) Level 5 - Mild [...] meds as pt prefers. Oral care after meals.DEHAIRER to follow. Functional Oral Intake Scale (FOIS): [...] document with edits made. Deniz Rocha MA, CCC-DEHAIRER, BCS-S Speech Language Pathologist * Progress Notes [...] Transfer Exam: Sit to stand Level of Keith: Minimum assist (75% patient's effort) Physical/Nonphysical Assist: Verbal Cues, Moderate cues Assistive Device: Rollator Transfer Exam: Stand to Sit Level of Keith: Contact guard Physical/Nonphysical Assist: Verbal Cues, Minimal cues Assistive Device: Rollator Transfer Exam: Bed to Chair/Chair to Bed Level of Keith: Minimum assist (75% patient's effort) Physical/Nonphysical Assist: [...] Intervention: Prevent Skin Injury Flowsheets Taken 06/03/2025 020 Body Position: turned left Taken 06/02/20251999 Skin Protection: incontinence pads utilized Intervention: Prevent and Manage VTE (Venous Thromboembolism) Risk Flowsheets (Taken 06/03/2025 0200) VTE Prevention/Management: medication Intervention: Prevent Infection Flowsheets (Taken 06/01/2025 023 by Elena Patrick, RN) Infection Prevention: cohorting utilized environmental surveillance performed equipment surfaces disinfected hand hygiene promoted personal protective equipment utilized rest/sleep promoted single patient room provided Goal: Optimal Comfort and Wellbeing Outcome: Ongoing, Progressing Intervention: Monitor Pain and Promote Comfort Flowsheets (Taken 06/03/2025 0253) Pain Management Interventions: medication (see MAR) Intervention: Provide Person-Centered Care Flowsheets (Taken 06/01/2025 023 by Elena Patrick, RN) Trust Relationship/Rapport: care explained choices provided * Care Plan - Heavenly Magana RN - 06/02/2025 2:39 PM EDT Problem: Adult Inpatient Plan of Care Goal: Plan of Care Review Outcome: Ongoing, Progressing Flowsheets Taken 06/02/2025 0043 by Simón Cash RN Progress: improving Plan of Care Reviewed With: patient Taken 06/01/2025236 by Elena Patrick RN Outcome Evaluation: Pt agreeable with care plan. Goal: Patient-Specific Goal (Individualized) Outcome: Ongoing, Progressing Goal: Absence of Hospital-Acquired Illness or Injury Outcome: Ongoing, Progressing Intervention: Identify and Manage Fall Risk Flowsheets (Taken 06/02/2025799) Safety Promotion/Fall Prevention: activity supervised fall prevention program maintained Intervention: Prevent Skin Injury Flowsheets Taken 06/02/2025 1000 by Heavenly Magana RN Body Position: turned right Taken 06/02/202542 by Simón Cash RN Skin Protection: incontinence pads utilized Intervention: Prevent and Manage VTE (Venous Thromboembolism) Risk Flowsheets (Taken 06/02/2025799) VTE Prevention/Management: medication Intervention: Prevent Infection Flowsheets (Taken 06/01/2025236 by Elena Patrick RN) Infection Prevention: cohorting utilized environmental surveillance performed equipment surfaces disinfected hand hygiene promoted personal protective equipment utilized rest/sleep promoted single patient room provided Goal: Optimal Comfort and Wellbeing Outcome: Ongoing, Progressing Intervention: Monitor Pain and Promote Comfort Flowsheets (Taken 06/02/2025 0825) Pain Management Interventions: medication (see MAR) Intervention: Provide Person-Centered Care Flowsheets (Taken 06/01/2025236 by Elena Patrick RN) Trust Relationship/Rapport: care explained choices provided Problem: Infection Goal: Absence of Infection Signs and Symptoms Outcome: Ongoing, Progressing Intervention: Prevent or Manage Infection Flowsheets Taken 06/02/2025799 by Heavenly Magana RN Isolation Precautions: precautions maintained Taken 06/02/202542 by Simón Cash RN Infection Management: aseptic technique maintained Fever Reduction/Comfort Measures: lightweight bedding Problem: Skin Injury Risk Increased Goal: Skin Health and Integrity Outcome: Ongoing, Progressing Intervention: Optimize Skin Protection Flowsheets Taken 06/02/2025799 by Heavenly Magana RN Activity Management: back to bed Head of Bed (HOB) Positioning: HOB at 20-30 degrees Taken 06/02/202542 by Simón Cash, RN Pressure Reduction Devices: positioning supports utilized [...] Blood Flow Flowsheets Taken 06/02/202542 by Simón Cash RN Dysrhythmia Management: pacing wires maintained Taken [...] Electrolyte Balance Flowsheets (Taken 06/02/202542 by Simón Cash, ABHILASH) Fluid/Electrolyte Management: electrolyte supplement initiated Goal: Acceptable Pain Control Outcome: Ongoing, Progressing Intervention: Prevent or Manage Pain Flowsheets Taken 06/02/2025 1437 by Heavenly Magana RN Complementary Therapy: aromatherapy utilized Taken 06/02/2025 0825 by Heavenly Magana, track man Interventions: medication (see MAR) Taken 06/02/202542 by Simón Cash, RN Diversional Activities: television Goal: Effective Urinary [...] Ongoing, Progressing Intervention: Promote Activity and Functional Keith Flowsheets Taken 06/02/2025 1437 by Heavenly Magana [...] Note Joi Marcial 70 y.o. female CSN: [id number] Admission: 05/27/2025 5:34 AM Primary Problem: Aneurysm [...] Associated Problem(s): COPD (chronic obstructive pulmonary disease) ([facility]/HCC) -on mechanically assisted ventilation, expected s/p AAA [...] 06/02/2025 4:40 AM Final report signed by Lse Steele MD on 06/02/2025 4:40 AM VAS [...] 25.0-25.9,adult Hyperlipidemia COPD (chronic obstructive pulmonary disease) (CMS/[facility]) 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 H/O transcarotid artery revascularization (TCAR) Hypokalemia Cardiac volume overload Leukocytosis Agitation requiring sedation protocol Delirium due to multiple etiologies Left upper extremity swelling A-fib (CMS/[facility]) 70 yrs female who underwent valve-sparing ascending aortic and arch aneurysm repair with debranching of innominate and left carotid on 05/27/[address] Nicholson. 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 If applicable, patient is s/p Procedure(s) [...] metoprolol. RFP 1600. Edited by: Yvrose Campbell, SILVER RECOVERY OPERATOR at 06/01/2025 1642 Lines/Drains/Tubes: Patient Lines/Drains/Airways Status [...] Therapy Sternum 05/27/25 1749 Sternum 4 GCS: [place] Coma Scale Score: 15 Review of Systems [...] Active Hospital Problems Diagnosis Date Noted A-fib (CMS/HCC) 05/31/2025 Left upper extremity swelling 05/30/2025 Delirium due to multiple etiologies 05/29/2025 H/O aortic arch replacement 05/28/2025 H/O ascending aortic replacement 05/28/2025 H/O transcarotid artery revascularization (TCAR) 05/28/2025 Hypokalemia 05/28/2025 Cardiac volume overload 05/28/2025 Leukocytosis 05/28/2025 Agitation requiring sedation protocol 05/28/2025 Hyperlipidemia 05/27/2025 COPD (chronic obstructive pulmonary disease) ([facility]) 05/27/2025 BMI 25.0-25.9,adult 02/26/2025 Poorly-controlled hypertension 01/30/2025 Aneurysm of descending thoracic aorta without rupture ([facility]) 01/30/2025 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 [...] admission Level of Mobility: Ambulatory- community Mobility Keith: Independent gait without device History of Falls: [...] Mobility Exam: Supine to Sit Level of Keith: Moderate assist (50% patient's effort) Physical/Nonphysical Assist: Verbal Cues, Maximal cues, Additional assist utilized for safety, HOB elevated Transfers Transfer Exam: Sit to stand Level of Keith: Contact guard Physical/Nonphysical Assist: Verbal Cues, Moderate cues Assistive Device: Rollator Transfer Exam: Stand to Sit Level of Keith: Minimum assist (75% patient's effort) Physical/Nonphysical Assist: Moderate cues, Verbal Cues Assistive Device: Rollator Transfer Exam: Bed to Chair/Chair to Bed Level of Keith: Minimum assist (75% patient's effort) Physical/Nonphysical Assist: [...] pacing. 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 Problem List Active Hospital Problems Diagnosis Date Noted A-fib ([facility]) 05/31/2025 Left upper extremity swelling 05/30/2025 Delirium due to multiple etiologies 05/29/2025 H/O aortic arch replacement 05/28/2025 H/O ascending aortic replacement 05/28/2025 H/O transcarotid artery revascularization (TCAR) 05/28/2025 Hypokalemia 05/28/2025 Cardiac volume overload 05/28/2025 Leukocytosis 05/28/2025 Agitation requiring sedation protocol 05/28/2025 Hyperlipidemia 05/27/2025 COPD (chronic obstructive pulmonary disease) ([facility]) 05/27/2025 BMI 25.0-25.9,adult 02/26/2025 Poorly-controlled hypertension 01/30/2025 Aneurysm of descending thoracic aorta without rupture ([facility]) 01/30/2025 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 [...] admission Level of Mobility: Ambulatory- community Mobility Keith: Independent gait without device History of Falls: [...] Mobility Exam: Supine to Sit Level of Keith: Moderate assist (50% patient's effort) Physical/Nonphysical Assist: Verbal Cues, Maximal cues, Additional assist utilized for safety, HOB elevated Transfers Transfer Exam: Sit to stand Level of Keith: Contact guard Physical/Nonphysical Assist: Verbal Cues, Moderate cues Assistive Device: Rollator Transfer Exam: Stand to Sit Level of Keith: Minimum assist (75% patient's effort) Physical/Nonphysical Assist: Moderate cues, Verbal Cues Assistive Device: Rollator Transfer Exam: Bed to Chair/Chair to Bed Level of Keith: Minimum assist (75% patient's effort) Physical/Nonphysical Assist: [...] continued education to improve carryover. Standardized Assessments [facility] 6-Click Daily Activities Help from Other: Don/Doff Regular Lower Body Clothings: A lot Help From Other: Bathing: A lot Help From Other: Toileting: A lot Help From Other: Don/Doff Upper Body Clothings: Little Help From Other: Grooming: Little Help From Other: Eating Meals: None [facility] 6 Click - Daily Activities Score: 16 [...] Continue chest tubes and pacing wires - DEHAIRER on consult: cont TF, MBS tomorrow, ok for swabs - start DVT ppx - hold home plavix for carotid TCAR in 02/2025 - Incisional wound vac until POD 5 - Mobilize, PT/OT - Continue ICU care Cardiothoracic Surgery 06/01/25 10:04 AM Cosigned by Jose C Nicholson [...] scheduled Intervention: Prevent Skin Injury Flowsheets Taken 06/01/2025236 Skin Protection: incontinence pads utilized transparent dressing [...] incontinence pads utilized transparent dressing maintained Taken 06/01/2025199 Activity Management: dorsiflexion/plantar flexion performed Head of [...] Perfusion Promotion: blood pressure monitored Taken 06/01/2025 0200 Head of Bed (HOB) Positioning: HOB elevated [...] care * Assessment & Plan Note - Yvroes Campbell APRN - 05/31/2025 4:35 PM EDT Associated Problem(s): Hyperlipidemia - statin * Assessment & Plan Note - Yvrose Campbell APRN - 05/31/2025 4:35 PM EDT Associated Problem(s): COPD (chronic obstructive pulmonary disease) ([facility]) -on mechanically assisted ventilation, expected s/p [...] * Assessment & Plan Note - Yvrose Campebll APRN - 05/31/2025 4:35 PM EDT Associated [...] Edited by: Yvrose Campbell APRN at 05/31/2025 1621 Lines/Drains/Tubes: Patient Lines/Drains/Airways Status Active Active LDAs [...] Therapy Sternum 05/27/25 1749 Sternum 3 GCS: [place] Coma Scale Score: 15 Review of Systems [...] - statin COPD (chronic obstructive pulmonary disease) ([facility]) Present on Admission: Yes -on mechanically [...] Present on Admission: Yes -duplex pending A-fib ([facility]/HCC) Present on Admission: Unknown -Monitor per protocol. Non-Hospital Problems Peripheral vascular disease ([facility]) (Chronic) Asymptomatic stenosis of right carotid [...] XR Chest findings/impressions: Interval removal of the [place]-Chrissy catheter. The rest of the support hardware [...] Oral Feeding Trials: Positionin-90 degrees Feeding assistance: DEHAIRER presented PO trials to patient Consistencies Administered: [...] swallow function and determine safest, leastrestrictive diet. DEHAIRER recommending pt continue NPO diet with meds via alternate route until MBS canbe completed. Prognosis: Good for improved function with skilled speech pathology services focusing on stated goals. Patient Education: DEHAIRER discussed evaluation results and recommendations with patient who expressed understanding. Results and recommendations of this evaluation were communicated to: RN/Team Plan / Recommendations Therapy Frequency: Pending instrumental evaluation results Follow-up date: 2-3 days F/u Imaging: MBS Short Term Goals: Patient will participate in MBSS. Senior Care Goals: Patient will return to least restrictive diet without any overt s/sxs of aspiration. 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 ([facility]/HCC) BMI 25.0-25.9,adult Asymptomatic stenosis of right carotid artery Hyperlipidemia COPD (chronic obstructive pulmonary disease) ([facility]/HCC) Peripheral vascular disease ([facility]) 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 H/O transcarotid artery revascularization (TCAR) Hypokalemia Cardiac volume overload Leukocytosis Agitation requiring sedation protocol Delirium due to multiple etiologies Left upper extremity swelling [2] Past Medical History: Diagnosis Date Aneurysm ([facility]/HCC) 2024 Hyperlipidemia Hypertension 1989 Obesity [3] Past [...] Incisional wound vac until POD 5 - DEHAIRER for swallow - hold home plavix - Mobilize, PT/OT - Continue ICU care Cardiothoracic Surgery 05/31/25 10:31 AM Cosigned by Jose C Nicholson MD at 05/31/2025 11:52 AM EDT Associated [...] for restraints. Order renewed. Changed to Mitts BL Salbador Casillas MD * Consults - Shira Titus RD - 05/30/2025 3:39 PM EDT Adult Nutrition Evaluation Note Joi Marcial 70 y.o. female CSN: [id number] Room/Bed 237/237A Nutrition evaluation type: follow up [...] Social history: Additional comments: 05/28: Discussed on [facility] team rounds. Team is hoping [...] (Calculated): 27.09 Weight Evaluation: Overweight (BMI 25-29.9) [place] Body Weight (kg): 59.1 Percent [place] Body Weight: 120 Estimated Needs: Kcal/ K-20 Kcal Provided: 2683-1814 Kcal Needs Based On: Admit weight (71.2 [...] Education Provided: Will monitor Pertinent home medications: Pentecostalism needs: Nutrition Focused Physical Exam: Physical exam [...] monitor elytes (ongoing) Acuity Level: 4 Shira Ttius, SARA [1] ALPRAZolam, 0.25 mg, Oral, BID [...] Note Joi Marcial 70 y.o. 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 PCP: Edwardo Sheehan MD Emergency Contact: Extended Emergency Contact Information Primary Emergency Contact: Germania Jimenez Address: [address] [place] [address] Mobile Relation: Daughter Preferred language: Syriac Real Estate Teacher needed? No Insurance: Primary Visit Coverage Payer Plan Sponsor Code Group Number Group Name HU[employer]NA MEDICARE HU[employer]NA MEDICARE [id number] Primary Visit Coverage Subscriber Subscriber ID Subscriber Name Subscriber SSN Subscriber Address [id number] JOI MARCIAL [id number] [address] [place] [address] Patient information: Primary Caregiver: Self Support System: Immediate family Daily Living Activities: Functional Status: Independent Living Arrangements: Alone [address] [place] [address] Current DME: Equipment Currently Used at Home: none Income Information: Income Source: Unknown Housing Circumstances-Z Codes: Patient Referred to: n/a. Anticipated Discharge Date: TBD. Patient's Discharge Goal: TBD. Assistance Available at Discharge: Daughter. Discharge Transport: Daughter. Follow Up Transport: Daughter. Home Health / Home Infusion / Outpatient Dialysis Services: None. Living Will/Advance Directive/Power of Radiology Therapist /Guardian: Have you reviewed your Advance Directive [...] Confirmed insurance is [employer]. Address is [address] [place] [address] [place], [id number]. 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 If applicable, patient is s/p Procedure(s) and [...] Therapy Sternum 05/27/25 1749 Sternum 2 GCS: Kip Coma Scale Score: 10 Review of Systems [...] with Miss Vance note and plan. * Bren Han - Delfina He RN - 05/30/2025 9:43 AM EDT Images from the original note were not included. [id number] Recovery From Heart Surgery: The First Few [...] stop Last Reviewed Date: 2024 00:00:00 ?? [id number] [employer]. All rights reserved. This information is not intended as a substitute for professional medical care. Always follow your healthcare professional's instructions. * [facility] Delfina He RN - 05/30/2025 9:43 AM EDT Images from the original note were not included. [id number] After Heart Valve Surgery For the first [...] headache Last Reviewed Date: 2023 00:00:00 ?? [phone] [employer]. All rights reserved. This information is not [...] department on the 1st floor of the [facility] near [facility] for a chest x-ray. Then go to [...] your incisions. Do NOT lift, push, or hand assembler for puller over 5 pounds for six weeks. Do NOT [...] Delfina He CT Surgery Nurse Navigator at [phone] Monday through Monday 7am- 3:30pm [facility] [phone] after 3:30 pm, weekends and holidays - ask for the CT surgeon national account director. 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 If applicable, patient is s/p Procedure(s) [...] Therapy Sternum 05/27/25 1749 Sternum 2 GCS: Kip Coma Scale Score: 9 Review of Systems [...] Chest x-ray 05/29/2025. CT 01/14/2025 FINDINGS: Limited [id number] abdominal radiograph for the purpose of locating [...] maintained * Care Plan - Roxie Chacon RN - 05/29/2025 6:29 PM EDT Problem: [...] Promote and Optimize Oral Intake Flowsheets (Taken 05/29/2025 182) Nutrition Interventions: diet advanced Problem: Restraint, Nonviolent Goal: Absence of Harm or Injury Outcome: Ongoing, Progressing Intervention: Implement Least Restrictive Safety Strategies Flowsheets (Taken 05/29/2025 182) Block Piler Protection: tubing secured Diversional Activities: television Intervention: [...] Note Joi Marcial 70 y.o. 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 If applicable, patient is s/p Procedure(s) and [...] Therapy Sternum 05/27/25 1749 Sternum 1 GCS: Kip Coma Scale Score: 9 Review of Systems [...] pt and transition to precedex increasingly hypotensive, [id number] x2 given, paced at rate of 90, Levo started. Fio2 increased to 100% during this time. Since weaned to 70%. 1 unit RBC followup H and H 1800. Stop hydral. Edited by: Gabby Duenas, SILVER RECOVERY OPERATOR, BUSINESS DEVELOPMENT COORDINATOR, DNP at 05/29/2025 0045 Lines/Drains/Tubes: Patient Lines/Drains/Airways [...] 32 Fr. 05/27/25 1700 -- 1 NG/OG [place] [facility] mouth 05/27/25 0900 Center mouth 1 ETT ETT - single 8 mm 05/27/25 0725 Oral 1 Arterial Line 05/27/25 Right Radial 05/27/25 0729 Radial 1 Pulmonary Artery Catheter 05/27/25 Internal jugular Right 05/27/25 0740 Internal jugular 1 Negative Pressure Wound Therapy Sternum 05/27/25 1749 Sternum 1 GCS: [place] Coma Scale Score: 8 Review of Systems [...] EDTAssociated Problem(s): COPD (chronic obstructive pulmonary disease) ([facility]) -on mechanically assisted ventilation, expected s/p [...] - 05/28/2025 8:14 PM EDT 05/28/25 Joi Marcial Asked by RN to review [...] Note Joi Marcial 70 y.o. female CSN: [id number] Room/Bed 237/237A Nutrition evaluation type: assessment Reason for evaluation: provider consult Hospital course: 70 yo female S/P Ascending Aortic Replacement, Hemiarch, Circulatory Arrest, Aortic Arch Debranching on 05/27. She is currently intubated, on Propofol and NE. Past medical/ surgical history: has a past medical history of Aneurysm (CMS/HCC) (2024), Hyperlipidemia, Hypertension (1989), and Obesity. Social history: Additional comments: 05/28: Discussed on [facility] team rounds. Team is hoping to extubate today. Vitals and Basic Assessment: BP: (!) 113/47 Temp: 37.5 ??C (99.5 ??F) Invasive Ventilator Initiated (ETT/Trach Only): Yes Oxygen Therapy: Supplemental oxygen O2 Delivery Method: Mechanical ventilator [place] Coma Scale Score: 10 John Scale Score: [...] (Calculated): 27.41 Weight Evaluation: Overweight (BMI 25-29.9) [place] Body Weight (kg): 59.1 Percent [place] Body Weight: 120 Estimated Needs: Kcal/ K-20 Kcal Provided: 8094-7431 Kcal Needs Based On: Admit weight (71.2 kg) Gm Protein/ Kg : 1-1.2 Protein Provided: 71-85 Protein Needs Based On: Admit weight (71.2 kg) Metabolic Cart Study Results: Current Nutrition Intake: Diet Order: NPO Diet Experience and Nutrition History: Diet Education Provided: Will monitor Pertinent home medications: Pentecostalism needs: Nutrition Focused Physical Exam: Physical exam [...] Associated Problem(s): COPD (chronic obstructive pulmonary disease) ([facility]) -on mechanically assisted ventilation, expected s/p [...] with 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 If applicable, patient is s/p Procedure(s) [...] off Levo. Followup RFP. 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 female CSN: [id number] Admission: 05/27/2025 5:34 AM Primary Problem: Aneurysm [...] bedside. SW/CM will return as schedule permits. Jannette Painting SHELLFISH WEIGHER * Care Plan - Lenin Fitch - 05/28/2025 8:25 AM EDT Problem: [...] 36.6 C 36.8 C Resp 14 14 14 14 Weight (kg) 77 kg BMI 27.4 kg/m2 BSA (m2) 1.89 m2 PAP: (26-35)/(14-19) 26/14 CO: [3 L/min-4.5 L/min] 3.9 L/min CI: [...] Device Skin Pressure Protection: absorbent pad utilized/changed [id number] areas padded Goal: Absence of Ventilator-Induced Lung Injury Outcome: Ongoing, Progressing Intervention: Prevent Ventilator-Associated Pneumonia Flowsheets Taken 05/28/2025 06 Head of Bed (HOB) Positioning: HOB elevated Taken 05/28/2025 0600 Oral Care: suction toothette Problem: Skin Injury Risk Increased Goal: Skin Health and Integrity Outcome: Ongoing, Progressing Intervention: Optimize Skin Protection Flowsheets (Taken 05/28/2025 06) Skin Protection: transparent dressing maintained Head of Bed (HOB) Positioning: HOB elevated Problem: Restraint, Nonviolent Goal: Absence of Harm or Injury Outcome: Ongoing, Progressing Intervention: Implement Least Restrictive Safety Strategies Flowsheets (Taken 05/28/2025635) Block Piler Protection: tubing secured Intervention: Protect Dignity, Rights and Personal Wellbeing Flowsheets (Taken 05/28/2025 06) Trust Relationship/Rapport: care explained Intervention: Protect Skin and Joint Integrity Flowsheets Taken 05/28/2025 06 Body Position: turned Skin Protection: transparent dressing [...] Associated Problem(s): COPD (chronic obstructive pulmonary disease) ([facility]) -on mechanically assisted ventilation, expected s/p [...] care management by Cardiothoracic Surgery. HPI Joi Macrial is a 70 y.o. female who presents [...] patient was on propofol, nitroglycerin, and clevidipine. [facility] services were consulted for management [...] (Ancef) injection 2 g 2 g 05/27/25 1615 Given ceFAZolin (Ancef) injection 2 g 2 [...] 2 mg (30 mcg/kg) @1656 Lot No: [id number] Exp: 01/15/2027 Lauren Méndez, PharmD PGY2 Critical Care Meatcutter Available by secure chat * Op Note - Jose C Nicholson MD - 05/27/2025 8:26 AM EDT OPERATIVE NOTE: Date: 05/27/2025 Location: [facility] Name: Joi Marcial, : 1955, Pre-operative [...] discovered on CT scans ordered by her motion picture critic. Additionally she has 70-80% stenosis of proximal right ICA and left PLANISHER high grade stenosis. She was discussed in [...] procedure including bleeding, infection, poor wound healing, WA, stroke, injury to any organs in the [...] 7 mm limb of the Y-graft was anastomosedto the cut end of the left carotid [...] to major vascular surgery such as stroke, WA, prolonged ventilation, tracheostomy, pulmonary embolism, and even [...] stenosis of proximal right ICA and left PLANISHER high grade stenosis. 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 ([facility]/HCC) 12/26/2024 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 [...] nostril if symptoms continue 03/14/25 Sarah Alas, SILVER RECOVERY OPERATOR Physical exam: Visit Vitals BP (!) 88/44 [...] sensation and reflexes and motor intact Skin: [place], warm, well perfused Labs in last 18 [...] card, photo ID, along with power of general service technician, guardianship or advanced directives if applicable Do [...] * 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 PAT F/U APT. Please see comprehensive PAT [...] stenosis of proximal right ICA and left PLANISHER high grade stenosis. Plan is for a [...] [1] Past Medical History: Diagnosis Date Aneurysm ([facility]) 2024 Hyperlipidemia Hypertension 1989 Obesity [2] Family [...] Description 06/25/2025 9:45 AM EDT Office Visit [facility] Cardiothoracic [address], [facility] [address] [place] [address] Jose C Nicholson MD [address] [facility] [address] [place] [address] 08/07/2025 12:20 PM EST Appointment [facility] [address] [place] [address] 08/07/2025 1:40 PM EST Office Visit [facility] Comprehensive Vascular [facility] [address] [facility] [address] [place] [address] Cedrick Franz MD [address] [place] [address] Scheduled Orders Name Type Priority Associated Diagnoses [...] Expires: 12/03/2026 documented as of this encounter Procedures Procedure [...] ANGIO HEAD STAT 06/06/2025 12:59 AM EDT [facility], E/M 30-74 MINUTES Routine 06/05/2025 [...] UNSOLICITED RESULTS Routine 06/01/2025 5:13 PM EDT [facility] CRIT[facility]ARE, E/M 30-74 MINUTES Routine 06/01/2025 [...] PEP THERAPY Routine 05/31/2025 6:00 PM EDT [facility], E/M 30-74 MINUTES Routine 05/31/2025 [...] UNSOLICITED RESULTS Routine 05/30/2025 12:20 PM EDT [facility], ADDL 30 MIN Routine 05/30/2025 [...] PANEL, PLASMA Routine 05/30/2025 12:58 AM EDT [facility], E/M 30-74 MINUTES Routine 05/29/2025 11:24 PM EDT 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 Poorly-controlled hypertension Agitation requiring sedation protocol Delirium due to multiple etiologies PEP THERAPY Routine 05/29/2025 10:00 PM EDT PEP THERAPY Routine 05/29/2025 6:00 PM EDT POCT GLUCOSE METER UNSOLICITED RESULTS Routine 05/29/2025 5:16 PM EDT [facility], ADDL 30 MIN Routine 05/29/2025 2:33 PM EDT 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) Chronic obstructive pulmonary disease, unspecified COPD type (CMS/HCC) H/O ascending aortic replacement Cardiac volume overload Agitation requiring sedation protocol BMI 25.0-25.9,adult Cerebral venous sinus thrombosis Delirium due to multiple etiologies History of right common carotid artery stent placement [facility]IT[facility]ARE, ADDL 30 MIN Routine 05/29/2025 [...] PANEL, PLASMA Routine 05/29/2025 1:23 AM EDT [facility], E/M 30-74 MINUTES Routine 05/29/2025 [...] PREPARE RBC Routine 05/28/2025 1:38 PM EDT [facility], ADDL 30 MIN Routine 05/28/2025 12:40 PM EDT 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 Poorly-controlled hypertension H/O transcarotid artery revascularization (TCAR) Cardiac volume overload Agitation requiring sedation protocol [facility] CRITICAL CARE, E/M 30-74 MINUTES Routine 05/28/2025 [...] PANEL, ARTERIAL Timed 05/28/2025 12:14 AM EDT [facility] CRIT[facility] CARE, E/M 30-74 MINUTES Routine 05/27/2025 11:43 PM EDT 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) Chronic obstructive pulmonary disease, unspecified COPD type (CMS/[facility]) H/O aortic arch replacement H/O ascending [...] EDT 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 ([facility]) POCT ARTERIAL BLOOD GAS GEM UNSOLICITED RESULTS [...] PREPARE RBC STAT 05/27/2025 7:08 AM EDT NC -AORT GRF W/CARD BYP F/AORTIC DISSECTION 05/27/2025 6:44 AM EDT 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) TYPE AND SCREEN Routine 05/27/2025 6:28 AM EDT documented in this encounter Results * (ABNORMAL) Renal Function Panel, Plasma (06/07/2025 4:10 AM EDT) Glucose, Plasma 85 74 - 99 mg/dL 06/07/2025 5:03 AM EDT [facility] BUN, Plasma 23 8 - 23 mg/dL 06/07/2025 5:03 AM EDT [facility] Creatinine, Plasma 0.57(L) 0.60 - 1.10 mg/dL 06/07/2025 5:03 AM EDT [facility] BUN/Creatinine Ratio 40 06/07/2025 5:03 AM EDT [facility] Sodium, Plasma 137 136 - 145 mmol/L 06/07/2025 5:03 AM EDT [facility] Potassium, Plasma 3.5(L) 3.6 - 4.9 mmol/L 06/07/2025 5:03 AM EDT [facility] Chloride, Plasma 108(H) 97 - 107 mmol/L 06/07/2025 5:03 AM EDT [facility] CO2, Plasma 18(L) 22 - 29 mmol/L 06/07/2025 5:03 AM EDT [facility] Anion Gap 11 6 - 16 mmol/L 06/07/2025 5:03 AM EDT [facility] Total Calcium, Plasma 8.5(L) 8.9 - 10.2 mg/dL 06/07/2025 5:03 AM EDT [facility] Phosphorus, Plasma 2.3(L) 2.5 - 4.5 mg/dL 06/07/2025 5:03 AM EDT [facility] Albumin, Plasma 3.0(L) 3.5 - 5.2 g/dL 06/07/2025 5:03 AM EDT [facility] eGFRcr 97.3 mL/min/1.7 3m*2 06/07/2025 5:03 AM EDT [facility] Comment:Reported eGFRcr in m L/min/1.73m2 is based the CKD-EPI 2020 equation that does not use a race coefficient. Blood Venous blood specimen / Unknown Venipuncture / Unknown 06/07/2025 4:10 AM EDT 06/07/2025 4:22 AM EDT us Jaxon De La Rosa SILVER RECOVERY OPERATOR, DNP LAB BLOOD ORDERABLES Fi nal Result [facility] [address] [place] [address] * Magnesium, Plasma (06/07/2025 4:10 AM EDT) Magnesium, Plasma 2.0 1.9 - 2.4 mg/dL 06/07/2025 5:03 AM EDT [facility] Blood Venous blood specimen / Unknown Venipuncture / Unknown 06/07/2025 4:10 AM EDT 06/07/2025 4:22 AM EDT us Jaxon De La Rosa SILVER RECOVERY OPERATOR, DNP LAB BLOOD ORDERABLES Fi nal Result [facility] [address] [place] [address] * (ABNORMAL) CBC W/O Differential (06/07/2025 4:10 AM EDT) WBC Count 11.61(H) 3.70 - 10.30 10*3/uL LAB HEMATOLOGY METHOD 06/07/2025 4:29 AM EDT [facility] RBC Count 3.38(L) 3.90 - 5.20 10*6/uL LAB HEMATOLOGY METHOD 06/07/2025 4:29 AM EDT [facility] HGB 9.7(L) 11.2 - 15.7 g/dL LAB HEMATOLOGY METHOD 06/07/2025 4:29 AM EDT [facility] HCT 30.4(L) 34.0 - 45.0 % LAB HEMATOLOGY METHOD 06/07/2025 4:29 AM EDT [facility] Platelet Count 381(H) 155 - 369 10*3/uL LAB HEMATOLOGY METHOD 06/07/2025 4:29 AM EDT [facility] MCV 90 79 - 98 fL LAB HEMATOLOGY METHOD 06/07/2025 4:29 AM EDT [facility] MCH 28.7 26.0 - 32.0 pg LAB HEMATOLOGY METHOD 06/07/2025 4:29 AM EDT [facility] MCHC 31.9 30.7 - 35.5 g/dL LAB HEMATOLOGY METHOD 06/07/2025 4:29 AM EDT [facility] RDW 14.9(H) 11.5 - 14.5 % LAB HEMATOLOGY METHOD 06/07/2025 4:29 AM EDT [facility] MPV 10.3 8.8 - 12.5 fL LAB HEMATOLOGY METHOD 06/07/2025 4:29 AM EDT [facility] nRBC 0.0 <=0.0 per 100 WBCs LAB HEMATOLOGY METHOD 06/07/2025 4:29 AM EDT [facility] Blood Venous blood specimen / Unknown Venipuncture / Unknown 06/07/2025 4:10 AM EDT 06/07/2025 4:23 AM EDT us Jaxon De La Rosa SILVER RECOVERY OPERATOR, DNP LAB BLOOD ORDERABLES Fi nal Result [facility] [address] [place] [address] * (ABNORMAL) CBC and differential (06/06/2025 10:45 AM EDT) WBC Count 18.13(H) 3.70 - 10.30 10*3/uL LAB HEMATOLOGY METHOD 06/06/2025 11:28 AM EDT [facility] RBC Count 3.50(L) 3.90 - 5.20 10*6/uL LAB HEMATOLOGY METHOD 06/06/2025 11:28 AM EDT [facility] HGB 10.0(L) 11.2 - 15.7 g/dL LAB HEMATOLOGY METHOD 06/06/2025 11:28 AM EDT [facility] HCT 31.3(L) 34.0 - 45.0 % LAB HEMATOLOGY METHOD 06/06/2025 11:28 AM EDT [facility] Platelet Count 441(H) 155 - 369 10*3/uL LAB HEMATOLOGY METHOD 06/06/2025 11:28 AM EDT [facility] MCV 89 79 - 98 fL LAB HEMATOLOGY METHOD 06/06/2025 11:28 AM EDT [facility] MCH 28.6 26.0 - 32.0 pg LAB HEMATOLOGY METHOD 06/06/2025 11:28 AM EDT [facility] MCHC 31.9 30.7 - 35.5 g/dL LAB HEMATOLOGY METHOD 06/06/2025 11:28 AM EDT [facility] RDW 15.6(H) 11.5 - 14.5 % LAB HEMATOLOGY METHOD 06/06/2025 11:28 AM EDT [facility] MPV 11.0 8.8 - 12.5 fL LAB HEMATOLOGY METHOD 06/06/2025 11:28 AM EDT [facility] nRBC 0.0 <=0.0 per 100 WBCs LAB HEMATOLOGY METHOD 06/06/2025 11:28 AM EDT [facility] Differential Type Automated LAB HEMATOLOGY METHOD 06/06/2025 11:28 AM EDT [facility] Neutrophils % 84 % LAB HEMATOLOGY METHOD 06/06/2025 11:28 AM EDT [facility] Lymphocytes % 9 % LAB HEMATOLOGY METHOD 06/06/2025 11:28 AM EDT [facility] Monocytes % 4 % LAB HEMATOLOGY METHOD 06/06/2025 11:28 AM EDT [facility] Eosinophils % 2 % LAB HEMATOLOGY METHOD 06/06/2025 11:28 AM EDT [facility] Basophils % 0 % LAB HEMATOLOGY METHOD 06/06/2025 11:28 AM EDT [facility] Immature Granulocytes % 1 % LAB HEMATOLOGY METHOD 06/06/2025 11:28 AM EDT [facility] Neutrophils Absolute 15.33(H) 1.60 - 6.10 10*3/uL LAB HEMATOLOGY METHOD 06/06/2025 11:28 AM EDT [facility] Lymphocytes Absolute 1.65 1.20 - 3.90 10*3/uL LAB HEMATOLOGY METHOD 06/06/2025 11:28 AM EDT [facility] Monocytes Absolute 0.67 0.30 - 0.90 10*3/uL LAB HEMATOLOGY METHOD 06/06/2025 11:28 AM EDT [facility] Eosinophils Absolute 0.27 0.00 - 0.50 10*3/uL LAB HEMATOLOGY METHOD 06/06/2025 11:28 AM EDT [facility] Basophils Absolute 0.05 0.00 - 0.10 10*3/uL LAB HEMATOLOGY METHOD 06/06/2025 11:28 AM EDT [facility] Immature Granulocytes Absolute 0.16(H) 0.00 - 0.06 10*3/uL LAB HEMATOLOGY METHOD 06/06/2025 11:28 AM EDT [facility] Blood Venous blood specimen / Unknown Venipuncture / Unknown 06/06/2025 10:45 AM EDT 06/06/2025 11:09 AM EDT [facility] - 06/06/2025 11:28 AM EDT Therapeutic decision making should be based on absolute values, rather than percentages. us Jose C Nicholson MD LAB BLOOD ORDERABLES Final Resu lt [facility] [address] [place] [address] * (ABNORMAL) CBC W/O Differential (06/06/2025 6:31 AM EDT) WBC Count 23.77(H) 3.70 - 10.30 10*3/uL LAB HEMATOLOGY METHOD 06/06/2025 6:59 AM EDT [facility] RBC Count 3.64(L) 3.90 - 5.20 10*6/uL LAB HEMATOLOGY METHOD 06/06/2025 6:59 AM EDT [facility] HGB 10.5(L) 11.2 - 15.7 g/dL LAB HEMATOLOGY METHOD 06/06/2025 6:59 AM EDT [facility] HCT 32.9(L) 34.0 - 45.0 % LAB HEMATOLOGY METHOD 06/06/2025 6:59 AM EDT [facility] Platelet Count 371(H) 155 - 369 10*3/uL LAB HEMATOLOGY METHOD 06/06/2025 6:59 AM EDT [facility] MCV 90 79 - 98 fL LAB HEMATOLOGY METHOD 06/06/2025 6:59 AM EDT [facility] MCH 28.8 26.0 - 32.0 pg LAB HEMATOLOGY METHOD 06/06/2025 6:59 AM EDT [facility] MCHC 31.9 30.7 - 35.5 g/dL LAB HEMATOLOGY METHOD 06/06/2025 6:59 AM EDT [facility] RDW 15.1(H) 11.5 - 14.5 % LAB HEMATOLOGY METHOD 06/06/2025 6:59 AM EDT [facility] MPV 10.6 8.8 - 12.5 fL LAB HEMATOLOGY METHOD 06/06/2025 6:59 AM EDT [facility] nRBC 0.0 <=0.0 per 100 WBCs LAB HEMATOLOGY METHOD 06/06/2025 6:59 AM EDT [facility] Blood Venous blood specimen / Unknown Venipuncture / Unknown 06/06/2025 6:31 AM EDT 06/06/2025 6:49 AM EDT Jaxon De La Rosa SILVER RECOVERY OPERATOR, DNP LAB BLOOD ORDERABLES Fi nal Result Performing Organization Address [facility] de Phone Number [facility] [address] [place] [address] * (ABNORMAL) Procalcitonin (06/06/2025 5:45 AM EDT) Procalcitonin, Plasma 0.12(H) <0.09 ng/mL 06/06/2025 6:50 AM EDT [facility] Blood Venous blood specimen / Unknown Venipuncture / Unknown 06/06/2025 5:45 AM EDT 06/06/2025 6:16 AM EDT Narrative [facility] - 06/06/2025 6:50 AM EDT Procalcitonin [...] predict 28 day mortality risk. Please consult [email or web address] for more information. Test performed at [facility]. Jaxon De La Rosa APRN, DNP LAB BLOOD ORDERABLES Fi nal Result Performing Organization Address City/[facility]/ZIP Co de Phone Number [facility] [address] [place] [address] * LACTIC ACID, VENOUS (06/06/2025 5:45 AM EDT) Lactate, Venous, Whole Blood 1.4 0.5 - 2.2 mmol/L LAB HEMATOLOGY METHOD 06/06/2025 6:02 AM EDT [facility] Blood Venous blood specimen / Unknown Venipuncture / Unknown 06/06/2025 5:45 AM EDT 06/06/2025 6:00 AM EDT Jaxon De La Rosa APRN, DNP LAB BLOOD ORDERABLES Fi nal Result Performing Organization Address [facility] Co de Phone Number [facility] [address] [place] [address] * Blood Culture (Aerobic/Anaerobet Set) (06/06/2025 5:45 AM EDT) Culture No growth at day 5 SRINIVAS 06/11/2025 8:02 AM EDT [facility] Blood Structure of antecubital vein / Unknown Venipuncture / Unknown 06/06/2025 5:45 AM EDT 06/06/2025 7:46 AM EDT Jaxon De La Rosa APRN, DNP LAB MICROBIOLOGY - GENE RAL ORDERABLES Final Result Performing Organization Address [facility] Phone Number [facility] [address] [place] [address] * (ABNORMAL) Renal Function Panel, Plasma (06/06/2025 5:01 AM EDT) Glucose, Plasma 114(H) 74 - 99 mg/dL 06/06/2025 5:53 AM EDT [facility] BUN, Plasma 33(H) 8 - 23 mg/dL 06/06/2025 5:53 AM EDT [facility] Creatinine, Plasma 0.75 0.60 - 1.10 mg/dL 06/06/2025 5:53 AM EDT [facility] BUN/Creatinine Ratio 44 06/06/2025 5:53 AM EDT [facility] Sodium, Plasma 138 136 - 145 mmol/L 06/06/2025 5:53 AM EDT [facility] Potassium, Plasma 4.7 3.6 - 4.9 mmol/L 06/06/2025 5:53 AM EDT [facility] Chloride, Plasma 106 97 - 107 mmol/L 06/06/2025 5:53 AM EDT [facility] CO2, Plasma 18(L) 22 - 29 mmol/L 06/06/2025 5:53 AM EDT [facility] Anion Gap 14 6 - 16 mmol/L 06/06/2025 5:53 AM EDT [facility] Total Calcium, Plasma 8.8(L) 8.9 - 10.2 mg/dL 06/06/2025 5:53 AM EDT [facility] Phosphorus, Plasma 3.7 2.5 - 4.5 mg/dL 06/06/2025 5:53 AM EDT [facility] Albumin, Plasma 3.1(L) 3.5 - 5.2 g/dL 06/06/2025 5:53 AM EDT [facility] eGFRcr 85.2 mL/min/1.7 3m*2 06/06/2025 5:53 AM EDT [facility] Comment:Reported eGFRcr in m L/min/1.73m2 is based the CKD-EPI 2020 equation that does not use a race coefficient. Blood Venous blood specimen / Unknown Venipuncture / Unknown 06/06/2025 5:01 AM EDT 06/06/2025 5:23 AM EDT Jaxon De La Rosa APRN, ANAYA LAB BLOOD ORDERABLES Fi nal Result Performing Organization Address City/[facility]/ZIP Co de Phone Number [facility] [address] [place] [address] * (ABNORMAL) Magnesium, Plasma (06/06/2025 5:01 AM EDT) Magnesium, Plasma 2.7(H) 1.9 - 2.4 mg/dL 06/06/2025 5:53 AM EDT [facility] Blood Venous blood specimen / Unknown Venipuncture / Unknown 06/06/2025 5:01 AM EDT 06/06/2025 5:23 AM EDT Jaxon De La Rosa APRN, DNP LAB BLOOD ORDERABLES Fi nal Result Performing Organization Address City/[facility]/ZIP Co de Phone Number [facility] [address] [place] [address] * CT Angio Neck (06/06/2025 12:59 AM [...] Yes. COMMUNICATION: Per this written report. An [employer] secured message was sent to the responding [...] Total DLP (Dose-Length Product): 792.33 mGy.cm (accession [id number]), 792.33 mGy.cm (accession [id number]). Please note: The reported value represents the [...] no aneurysm of either internal carotid artery. [place] and Major Peripheral Branches: There [...] Total DLP (Dose-Length Product): 792.33 mGy.cm (accession [id number]),792.33 mGy.cm (accession [id number]). Please note: The reported valuerepresents the total [...] no aneurysm of either internal carotid artery. [place] and Major Peripheral Branches: There [...] COMMUNICATION: Per this written report. An urgent [employer] secured message was sent to the responding clinician,JAXON DE LA ROSA, by Jemal Lei MD on 06/06/2025 3:02 AM. Receipt of understanding via secured messaging was provided by theresponding clinician, JAXON DE LA ROSA, by Jemal Lei MD on 53:04 AM. Drafted by Jemal Lei MD on 06/06/2025 2:49 AM Final report signed by Jemal Lei MD on 06/06/2025 3:07 AM us Jaxon DeL a Rosa SILVER RECOVERY OPERATOR, DNP IMG CT PROCEDURES Final Result * CT Angio Head (06/06/2025 12:59 AM EDT) Anatomical Region Laterality Modality [place] Computed Tomogr aphy Impressions 06/06/2025 [...] Yes. COMMUNICATION: Per this written report. An [employer] secured message was sent to the responding [...] Total DLP (Dose-Length Product): 792.33 mGy.cm (accession [id number]), 792.33 mGy.cm (accession [id number]). Please note: The reported value represents the [...] no aneurysm of either internal carotid artery. [place] and Major Peripheral Branches: There [...] Total DLP (Dose-Length Product): 792.33 mGy.cm (accession [id number]),792.33 mGy.cm (accession [id number]). Please note: The reported valuerepresents the total [...] no aneurysm of either internal carotid artery. [place] and Major Peripheral Branches: There [...] COMMUNICATION: Per this written report. An urgent [employer] secured message was sent to the responding [...] 06/06/2025 3:07 AM Jaxon De La Rosa APRN, DNP [...] DNP IMG CT PROCEDURES Final Result * [facility] CRITICAL CARE, E/M 30-74 MINUTES (06/05/2025 11:06 [...] and nursing services were present on rounds. Jaxon De La Rosa APRN, DNP IN CLINIC/BEDSIDE ORDER AMBROSE Final Result * (ABNORMAL) Blood gas panel with oximetry, mixed venous (06/05/2025 10:05 PM EDT) pH, Mixed Venous 7.37 7.32 - 7.43 LAB HEMATOLOGY METHOD 06/05/2025 10:29 PM EDT [facility] pCO2, Mixed Venous 36(L) 37 - 52 mmHg LAB HEMATOLOGY METHOD 06/05/2025 10:29 PM EDT [facility] pO2, Mixed Venous 67(H) 25 - 40 mmHg LAB HEMATOLOGY METHOD 06/05/2025 10:29 PM EDT [facility] SO2, Measured, Mixed Venous 91(H) 65 - 80 % LAB HEMATOLOGY METHOD 06/05/2025 10:29 PM EDT [facility] Bicarbonate, Calculated, Mixed Venous 21(L) 22 - 26 mmol/L LAB HEMATOLOGY METHOD 06/05/2025 10:29 PM EDT [facility] Base Excess, Mixed Venous -3.7(L) -2.0 - 3.0 mmol/L LAB HEMATOLOGY METHOD 06/05/2025 10:29 PM EDT [facility] Hematocrit, Whole Blood 34.9 34.0 - 45.0 % LAB HEMATOLOGY METHOD 06/05/2025 10:29 PM EDT [facility] Sodium, Whole Blood 138 136 - 145 mmol/L LAB HEMATOLOGY METHOD 06/05/2025 10:29 PM EDT [facility] Potassium, Whole Blood 3.8 3.6 - 4.9 mmol/L LAB HEMATOLOGY METHOD 06/05/2025 10:29 PM EDT [facility] Chloride, Whole Blood 107 97 - 107 mmol/L LAB HEMATOLOGY METHOD 06/05/2025 10:29 PM EDT [facility] Ionized Calcium, Whole Blood 4.7 4.6 - 5.1 mg/dL LAB HEMATOLOGY METHOD 06/05/2025 10:29 PM EDT [facility] Glucose, Whole Blood 130(H) 74 - 99 mg/dL LAB HEMATOLOGY METHOD 06/05/2025 10:29 PM EDT [facility] Oxyhemoglobin, Mixed Venous, Whole Blood 89.9(H) 40.0 - 70.0 % LAB HEMATOLOGY METHOD 06/05/2025 10:29 PM EDT [facility] Hemoglobin Reduced, Mixed Venous, Whole Blood 8.7 % LAB HEMATOLOGY METHOD 06/05/2025 10:29 PM EDT [facility] Total Hemoglobin, Mixed Venous, Whole Blood 11.4 11.2 - 15.7 g/dL LAB HEMATOLOGY METHOD 06/05/2025 10:29 PM EDT [facility] Blood Mixed venous blood specimen / Unknown Venipuncture / Unknown 06/05/2025 10:05 PM EDT 06/05/2025 10:26 PM EDT us Georgie Green APRN LAB BLOOD ORDERABLES Final Res ult [facility] [address] [place] [address] * (ABNORMAL) Renal Function Panel, Plasma (06/05/2025 10:05 PM EDT) Glucose, Plasma 132(H) 74 - 99 mg/dL 06/05/2025 10:42 PM EDT [facility] BUN, Plasma 37(H) 8 - 23 mg/dL 06/05/2025 10:42 PM EDT [facility] Creatinine, Plasma 0.86 0.60 - 1.10 mg/dL 06/05/2025 10:42 PM EDT [facility] BUN/Creatinine Ratio 43 06/05/2025 10:42 PM EDT [facility] Sodium, Plasma 139 136 - 145 mmol/L 06/05/2025 10:42 PM EDT [facility] Potassium, Plasma 3.7 3.6 - 4.9 mmol/L 06/05/2025 10:42 PM EDT [facility] Chloride, Plasma 106 97 - 107 mmol/L 06/05/2025 10:42 PM EDT [facility] CO2, Plasma 18(L) 22 - 29 mmol/L 06/05/2025 10:42 PM EDT [facility] Anion Gap 15 6 - 16 mmol/L 06/05/2025 10:42 PM EDT [facility] Total Calcium, Plasma 8.8(L) 8.9 - 10.2 mg/dL 06/05/2025 10:42 PM EDT [facility] Phosphorus, Plasma 3.9 2.5 - 4.5 mg/dL 06/05/2025 10:42 PM EDT [facility] Albumin, Plasma 3.2(L) 3.5 - 5.2 g/dL 06/05/2025 10:42 PM EDT [facility] eGFRcr 72.3 mL/min/1.7 3m*2 06/05/2025 10:42 PM EDT [facility] Comment:Reported eGFRcr in m L/min/1.73m2 is based the CKD-EPI 2020 equation that does not use a race coefficient. Blood Venous blood specimen / Unknown Venipuncture / Unknown 06/05/2025 10:05 PM EDT 06/05/2025 10:11 PM EDT Doyle CASTELLANOS LAB BLOOD ORDERABLES Final Result Performing Organization Address City/[facility]/ZIP Co de Phone Number [facility] [address] [place] [address] * Magnesium, Plasma (06/05/2025 10:05 PM EDT) Pathologist [facility] Magnesium, Plasma 1.9 1.9 - 2.4 mg/dL 06/05/2025 10:42 PM EDT [facility] Blood Venous blood specimen / Unknown Venipuncture / Unknown 06/05/2025 10:05 PM EDT 06/05/2025 10:11 PM EDT Doyle CASTELLANOS [facility] BLOOD ORDERABLES Final Result Performing Organization Address [facility] Co de Phone Number [facility] [address] [place] [address] * (ABNORMAL) CBC W/O Differential (06/05/2025 10:05 PM EDT) WBC Count 22.84(H) 3.70 - 10.30 10*3/uL LAB HEMATOLOGY METHOD 06/05/2025 10:18 PM EDT [facility] RBC Count 4.00 3.90 - 5.20 10*6/uL LAB HEMATOLOGY METHOD 06/05/2025 10:18 PM EDT [facility] HGB 11.6 11.2 - 15.7 g/dL LAB HEMATOLOGY METHOD 06/05/2025 10:18 PM EDT [facility] HCT 35.6 34.0 - 45.0 % LAB HEMATOLOGY METHOD 06/05/2025 10:18 PM EDT [facility] Platelet Count 511(H) 155 - 369 10*3/uL LAB HEMATOLOGY METHOD 06/05/2025 10:18 PM EDT [facility] MCV 89 79 - 98 fL LAB HEMATOLOGY METHOD 06/05/2025 10:18 PM EDT [facility] MCH 29.0 26.0 - 32.0 pg LAB HEMATOLOGY METHOD 06/05/2025 10:18 PM EDT [facility] MCHC 32.6 30.7 - 35.5 g/dL LAB HEMATOLOGY METHOD 06/05/2025 10:18 PM EDT [facility] [facility] RDW 14.9(H) 11.5 - 14.5 % LAB HEMATOLOGY METHOD 06/05/2025 10:18 PM EDT [facility] MPV 10.4 8.8 - 12.5 fL LAB HEMATOLOGY METHOD 06/05/2025 10:18 PM EDT [facility] nRBC 0.0 <=0.0 per 100 WBCs LAB HEMATOLOGY METHOD 06/05/2025 10:18 PM EDT [facility] Blood Venous blood specimen / Unknown Venipuncture / Unknown 06/05/2025 10:05 PM EDT 06/05/2025 10:11 PM EDT Doyle CASTELLANOS LAB BLOOD ORDERABLES Final Result [facility] [address] [place] [address] * ECG Adult (06/05/2025 9:14 PM EDT) EKG DIAGNOSIS CLASS Borderline Abnormal MUSE ECG Ventricular Rate 107 BPM MUSE ECG Atrial Rate 107 BPM MUSE ECG NC Interval 142 ms MUSE ECG QRSD Interval 74 ms MUSE ECG QT Interval 352 ms MUSE ECG QTC Interval 469 ms MUSE ECG P [place] 66 degrees MUSE ECG R [place] 20 degrees MUSE ECG T Wave [place] 50 degrees MUSE ECG Diagnosis Poor data quality, interpretation may be adversely affected MUSE ECG Diagnosis Sinus tachycardia with occasional premature ventricular complexes MUSE ECG Diagnosis Possible Left atrial enlargement MUSE ECG Diagnosis Borderline ECG MUSE ECG Diagnosis MUSE ECG Diagnosis Confirmed by Roberto Espinal ([id number]) on 06/06/2025 1:02:31 PM MUSE ECG 06/05/2025 9:14 PM EDT 06/06/2025 1:02 PM EDT us Georgie Green APRN ECG ORDERABLES Final Result MUSE ECG * (ABNORMAL) Renal Function Panel, Plasma (06/05/2025 4:18 AM EDT) Glucose, Plasma 97 74 - 99 mg/dL 06/05/2025 4:54 AM EDT [facility] BUN, Plasma 32(H) 8 - 23 mg/dL 06/05/2025 4:54 AM EDT [facility] Creatinine, Plasma 0.61 0.60 - 1.10 mg/dL 06/05/2025 4:54 AM EDT [facility] BUN/Creatinine Ratio 52 06/05/2025 4:54 AM EDT [facility] Sodium, Plasma 139 136 - 145 mmol/L 06/05/2025 4:54 AM EDT [facility] Potassium, Plasma 4.2 3.6 - 4.9 mmol/L 06/05/2025 4:54 AM EDT [facility] Chloride, Plasma 105 97 - 107 mmol/L 06/05/2025 4:54 AM EDT [facility] CO2, Plasma 22 22 - 29 mmol/L 06/05/2025 4:54 AM EDT [facility] Anion Gap 12 6 - 16 mmol/L 06/05/2025 4:54 AM EDT [facility] Total Calcium, Plasma 9.7 8.9 - 10.2 mg/dL 06/05/2025 4:54 AM EDT [facility] Phosphorus, Plasma 3.3 2.5 - 4.5 mg/dL 06/05/2025 4:54 AM EDT [facility] Albumin, Plasma 3.5 3.5 - 5.2 g/dL 06/05/2025 4:54 AM EDT [facility] eGFRcr 95.7 mL/min/1.7 3m*2 06/05/2025 4:54 AM EDT [facility] Comment:Reported eGFRcr in m L/min/1.73m2 is based the CKD-EPI 2020 equation that does not use a race coefficient. Blood Venous blood specimen / Unknown Venipuncture / Unknown 06/05/2025 4:18 AM EDT 06/05/2025 4:25 AM EDT Doyle CASTELLANOS LAB BLOOD ORDERABLES Final Result Performing Organization Address City/[facility]/ZIP Co de Phone Number [facility] [address] [place] [address] * Magnesium, Plasma (06/05/2025 4:18 AM EDT) Magnesium, Plasma 2.1 1.9 - 2.4 mg/dL 06/05/2025 4:54 AM EDT [facility] Blood Venous blood specimen / Unknown Venipuncture / Unknown 06/05/2025 4:18 AM EDT 06/05/2025 4:25 AM EDT Doyle CASTELLANOS LAB BLOOD ORDERABLES Final Result Performing Organization Address City/[facility] Co de Phone Number [facility] [address] [place] [address] * (ABNORMAL) CBC W/O Differential (06/05/2025 4:18 AM EDT) WBC Count 13.37(H) 3.70 - 10.30 10*3/uL LAB HEMATOLOGY METHOD 06/05/2025 4:46 AM EDT [facility] RBC Count 3.98 3.90 - 5.20 10*6/uL LAB HEMATOLOGY METHOD 06/05/2025 4:46 AM EDT [facility] HGB 11.4 11.2 - 15.7 g/dL LAB HEMATOLOGY METHOD 06/05/2025 4:46 AM EDT [facility] HCT 35.6 34.0 - 45.0 % LAB HEMATOLOGY METHOD 06/05/2025 4:46 AM EDT [facility] Platelet Count 385(H) 155 - 369 10*3/uL LAB HEMATOLOGY METHOD 06/05/2025 4:46 AM EDT [facility] MCV 89 79 - 98 fL LAB HEMATOLOGY METHOD 06/05/2025 4:46 AM EDT [facility] MCH 28.6 26.0 - 32.0 pg LAB HEMATOLOGY METHOD 06/05/2025 4:46 AM EDT [facility] MCHC 32.0 30.7 - 35.5 g/dL LAB HEMATOLOGY METHOD 06/05/2025 4:46 AM EDT [facility] RDW 15.3(H) 11.5 - 14.5 % LAB HEMATOLOGY METHOD 06/05/2025 4:46 AM EDT [facility] MPV 10.3 8.8 - 12.5 fL LAB HEMATOLOGY METHOD 06/05/2025 4:46 AM EDT [facility] nRBC 0.0 <=0.0 per 100 WBCs LAB HEMATOLOGY METHOD 06/05/2025 4:46 AM EDT [facility] Blood Venous blood specimen / Unknown Venipuncture / Unknown 06/05/2025 4:18 AM EDT 06/05/2025 4:36 AM EDT Doyle CASTELLANOS LAB BLOOD ORDERABLES Final Result [facility] [address] [place] [address] * XR Chest 1 View (06/05/2025 2:47 [...] signing this report, I, the attending physician, solangeat I have personally reviewed the images/data for the aboveexamination(s) and agree with the final edited report. Drafted by Silviano Hull MD on 06/05/2025 10:17 AM Final report signed by Rene Poole MD on 06/05/2025 12:22 PM Doyle CASTELLANOS IMG XR PROCEDURES Final Res ult * (ABNORMAL) POCT glucose meter (06/04/2025 5:53 AM EDT) POCT Glucose 108(H) 74 - 99 mg/dL 06/04/2025 5:55 AM EDT [facility] Comment:Accuracy of [...] for testing. Comment 06/04/2025 5:55 AM EDT [employer] [facility] [facility] Security Assistant ID Hari Chapin 06/04/2025 5:55 AM EDT [facility] Device ID [id number] 06/04/2025 5:55 AM EDT [facility] Specimen Type POC Capillary 06/04/2025 5:55 AM EDT [facility]ALTH[facility]ARE [facility] Blood Capillary blood specimen / Unknown 06/04/2025 5:53 AM EDT 06/04/2025 5:55 AM EDT us Jose C Nicholson MD LAB POINT OF CARE TE ST DOCKED DEVICE UNSOLICITED RESULTS Final Result [facility] [address] [place] [address] * XR Chest 1 View (06/04/2025 3:22 [...] 131 <200 mg/dL 06/04/2025 2:18 PM EDT [facility] Comment: Cholesterol Reference Range (age >17 years): Desirable <200 mg/dL Borderline 200 to 239 mg/dL Undesirable >239 mg/dL HDL 36(L) >=50 mg/dL 06/04/2025 2:18 PM EDT [facility] Comment: HDL Cholesterol Reference Ranges (age >17 years): Female, acceptable > or = 50 mg/dL Male, acceptable > or = 40 mg/dL Triglycerides, Plasma 126 <150 mg/dL 06/04/2025 2:18 PM EDT [facility] Comment: Triglyceride Reference Range (age >17 years): Desirable: <150 mg/dL Borderline high: 150 to 199 mg/dL High: 200 to 499 mg/dL Very high: >499 mg/dL Increased risk of pancreatitis: >1000 mg/dL Cholesterol/HDL Ratio 4 06/04/2025 2:18 PM EDT [facility] LDL, Calculated 72 <100 mg/dL 2:18 PM EDT [facility] Comment: LDL Cholesterol Reference Range (age [...] 12 hours? Unknown 06/04/2025 2:18 PM EDT [facility] Blood Venous blood specimen / Unknown Venipuncture / Unknown 06/04/2025 1:39 AM EDT 06/04/2025 1:52 AM EDT us Jenna Brown SILVER RECOVERY OPERATOR LAB BLOOD ORDERABLES Final R esult [facility] [address] [place] [address] * (ABNORMAL) Renal Function Panel, Plasma (06/04/2025 1:39 AM EDT) Glucose, Plasma 113(H) 74 - 99 mg/dL 06/04/2025 2:23 AM EDT [facility] BUN, Plasma 33(H) 8 - 23 mg/dL 06/04/2025 2:23 AM EDT [facility] Creatinine, Plasma 0.59(L) 0.60 - 1.10 mg/dL 06/04/2025 2:23 AM EDT [facility] BUN/Creatinine Ratio 56 06/04/2025 2:23 AM EDT [facility] Sodium, Plasma 142 136 - 145 mmol/L 06/04/2025 2:23 AM EDT [facility] Potassium, Plasma 4.2 3.6 - 4.9 mmol/L 06/04/2025 2:23 AM EDT [facility] Chloride, Plasma 106 97 - 107 mmol/L 06/04/2025 2:23 AM EDT [facility] CO2, Plasma 26 22 - 29 mmol/L 06/04/2025 2:23 AM EDT [facility] Anion Gap 10 6 - 16 mmol/L 06/04/2025 2:23 AM EDT [facility] Total Calcium, Plasma 9.7 8.9 - 10.2 mg/dL 06/04/2025 2:23 AM EDT [facility] Phosphorus, Plasma 3.0 2.5 - 4.5 mg/dL 06/04/2025 2:23 AM EDT [facility] Albumin, Plasma 3.4(L) 3.5 - 5.2 g/dL 06/04/2025 2:23 AM EDT [facility] eGFRcr 96.5 mL/min/1.7 3m*2 06/04/2025 2:23 AM EDT [facility] Comment:Reported eGFRcr in m L/min/1.73m2 is based the CKD-EPI 2020 equation that does not use a race coefficient. Blood Venous blood specimen / Unknown Venipuncture / Unknown 06/04/2025 1:39 AM EDT 06/04/2025 1:52 AM EDT us Doyle CASTELLANOS LAB BLOOD ORDERABLES Final Result [facility] [address] [place] [address] * Magnesium, Plasma (06/04/2025 1:39 AM EDT) Magnesium, Plasma 2.2 1.9 - 2.4 mg/dL 06/04/2025 2:23 AM EDT [facility] Blood Venous blood specimen / Unknown Venipuncture / Unknown 06/04/2025 1:39 AM EDT 06/04/2025 1:52 AM EDT Doyle CASTELLANOS LAB BLOOD ORDERABLES Final Result [facility] [address] [place] [address] * (ABNORMAL) CBC W/O Differential (06/04/2025 1:39 AM EDT) Pathologist [facility] WBC Count 13.42(H) 3.70 - 10.30 10*3/uL LAB HEMATOLOGY METHOD 06/04/2025 2:01 AM EDT [facility] RBC Count 3.78(L) 3.90 - 5.20 10*6/uL LAB HEMATOLOGY METHOD 06/04/2025 2:01 AM EDT [facility] HGB 10.6(L) 11.2 - 15.7 g/dL LAB HEMATOLOGY METHOD 06/04/2025 2:01 AM EDT [facility] HCT 33.2(L) 34.0 - 45.0 % LAB HEMATOLOGY METHOD 06/04/2025 2:01 AM EDT [facility] Platelet Count 353 155 - 369 10*3/uL LAB HEMATOLOGY METHOD 06/04/2025 2:01 AM EDT [facility] MCV 88 79 - 98 fL LAB HEMATOLOGY METHOD 06/04/2025 2:01 AM EDT [facility] MCH 28.0 26.0 - 32.0 pg LAB HEMATOLOGY METHOD 06/04/2025 2:01 AM EDT [facility] MCHC 31.9 30.7 - 35.5 g/dL LAB HEMATOLOGY METHOD 06/04/2025 2:01 AM EDT [facility] RDW 15.3(H) 11.5 - 14.5 % LAB HEMATOLOGY METHOD 06/04/2025 2:01 AM EDT [facility] MPV 10.4 8.8 - 12.5 fL LAB HEMATOLOGY METHOD 06/04/2025 2:01 AM EDT [facility] nRBC 0.0 <=0.0 per 100 WBCs LAB HEMATOLOGY METHOD 06/04/2025 2:01 AM EDT [facility] Blood Venous blood specimen / Unknown Venipuncture / Unknown 06/04/2025 1:39 AM EDT 06/04/2025 1:52 AM EDT us Doyle CASTELLANOS LAB BLOOD ORDERABLES Final Result Performing Organization Address City/[facility]/ZIP Co de Phone Number [facility] [address] [place] [address] * (ABNORMAL) POCT glucose meter (06/04/2025 1:36 AM EDT) [facility] POCT Glucose 104(H) 74 - 99 mg/dL [...] Comment 06/04/2025 1:38 AM EDT HEALTHCARE LAB Security Assistant ID Hari Chapin 06/04/2025 1:38 AM EDT HEALTHCARE LAB Device ID [id number] 06/04/2025 1:38 AM EDT [facility] Specimen Type POC Capillary 06/04/2025 1:38 AM EDT [facility] Blood Capillary blood specimen / Unknown 06/04/2025 1:36 AM EDT 06/04/2025 1:38 AM EDT us Jose C Nicholson MD LAB POINT OF CARE TE ST DOCKED DEVICE UNSOLICITED RESULTS Final Result Performing Organization Address City/[facility]/ZIP Co de Phone Number HEALTHCARE LAB [address] [place] [address] * (ABNORMAL) Magnesium (06/03/2025 5:44 PM EDT) Magnesium, Plasma 2.5(H) 1.9 - 2.4 mg/dL 06/03/2025 6:44 PM EDT [facility] Blood Venous blood specimen / Unknown Venipuncture / Unknown 06/03/2025 5:44 PM EDT 06/03/2025 6:10 PM EDT us Jose C Nicholson MD LAB BLOOD ORDERABLES Final Resu lt [facility] [address] [place] [address] * (ABNORMAL) Basic metabolic panel (06/03/2025 5:44 PM EDT) Glucose, Plasma 119(H) 74 - 99 mg/dL 06/03/2025 6:44 PM EDT [facility] BUN, Plasma 33(H) 8 - 23 mg/dL 06/03/2025 6:44 PM EDT [facility] Creatinine, Plasma 0.60 0.60 - 1.10 mg/dL 06/03/2025 6:44 PM EDT [facility] BUN/Creatinine Ratio 55 06/03/2025 6:44 PM EDT [facility] Sodium, Plasma 143 136 - 145 mmol/L 06/03/2025 6:44 PM EDT [facility] Potassium, Plasma 4.0 3.6 - 4.9 mmol/L 06/03/2025 6:44 PM EDT [facility] Chloride, Plasma 106 97 - 107 mmol/L 06/03/2025 6:44 PM EDT [facility] CO2, Plasma 25 22 - 29 mmol/L 06/03/2025 6:44 PM EDT [facility] Anion Gap 12 6 - 16 mmol/L 06/03/2025 6:44 PM EDT [facility] Total Calcium, Plasma 9.4 8.9 - 10.2 mg/dL 06/03/2025 6:44 PM EDT [facility] eGFRcr 96.1 mL/min/1.7 3m*2 06/03/2025 6:44 PM EDT [facility] Comment:Reported eGFRcr in m L/min/1.73m2 is based the CKD-EPI 2020 equation that does not use a race coefficient. Blood Venous blood specimen / Unknown Venipuncture / Unknown 06/03/2025 5:44 PM EDT 06/03/2025 6:10 PM EDT us Jose C Nicholson MD LAB BLOOD ORDERABLES Final Resu lt Performing Organization Address City/[facility] Co de Phone Number [facility] [address] [place] [address] * (ABNORMAL) POCT glucose meter (06/03/2025 12:24 PM EDT) POCT Glucose 125(H) 74 - 99 mg/dL 06/03/2025 12:26 PM EDT [facility] Comment:Accuracy of [...] Comment 06/03/2025 12:26 PM EDT HEALTHCARE LAB Security Assistant ID Russ Hernandez 06/03/20 12:26 PM EDT HEALTHCARE LAB Device ID [id number] 06/03/2025 12:26 PM EDT [facility] LAB Specimen Type POC Capillary 06/03/2025 12:26 PM EDT [facility] Blood Capillary blood specimen / Unknown 06/03/2025 12:24 PM EDT 06/03/2025 12:26 PM EDT us Jose C Nicholson MD LAB POINT OF CARE TE ST DOCKED DEVICE UNSOLICITED RESULTS Final Result Performing Organization Address City/[facility] Co de Phone Number [facility] [address] [place] [address] * [place] Modified Barium Swallow (06/03/2025 11:25 AM EDT) [...] MD on 06/03/2025 4:31 PM Yvrose Campbell SILVER RECOVERY OPERATOR IMG FLUOROSCOPY PROCEDURES Final Result * (ABNORMAL) [...] for testing. Comment 06/03/2025 5:27 AM EDT [facility]ALTH[facility]ARE LAB Security Assistant ID Ansley Hernandez [id number] 5:27 AM EDT HEALTHCARE LAB Device ID [id number] 06/03/2025 5:27 AM EDT [facility]ALTH[facility] LAB Specimen Type POC Capillary 06/03/2025 5:27 AM EDT [facility] Blood Capillary blood specimen / Unknown 06/03/2025 5:25 AM EDT 06/03/2025 5:27 AM EDT us Jose C Nicholson MD LAB POINT OF CARE TE ST DOCKED DEVICE UNSOLICITED RESULTS Final Result [facility] [address] [place] [address] * XR Chest 1 View (06/03/2025 3:01 [...] - 99 mg/dL 06/03/2025 1:04 AM EDT [facility] BUN, Plasma 31(H) 8 - 23 mg/dL 06/03/2025 1:04 AM EDT [facility] Creatinine, Plasma 0.57(L) 0.60 - 1.10 mg/dL 06/03/2025 1:04 AM EDT [facility] BUN/Creatinine Ratio 54 06/03/2025 1:04 AM EDT [facility] Sodium, Plasma 143 136 - 145 mmol/L 06/03/2025 1:04 AM EDT [facility] Potassium, Plasma 4.3 3.6 - 4.9 mmol/L 06/03/2025 1:04 AM EDT [facility] Chloride, Plasma 107 97 - 107 mmol/L 06/03/2025 1:04 AM EDT [facility] CO2, Plasma 26 22 - 29 mmol/L 06/03/2025 1:04 AM EDT [facility] Anion Gap 10 6 - 16 mmol/L 06/03/2025 1:04 AM EDT [facility] Total Calcium, Plasma 9.8 8.9 - 10.2 mg/dL 06/03/2025 1:04 AM EDT [facility] Phosphorus, Plasma 3.4 2.5 - 4.5 mg/dL 06/03/2025 1:04 AM EDT [facility] Albumin, Plasma 3.4(L) 3.5 - 5.2 g/dL 06/03/2025 1:04 AM EDT [facility] eGFRcr 97.3 mL/min/1.7 3m*2 06/03/2025 1:04 AM EDT [facility] Comment:Reported eGFRcr in m L/min/1.73m2 is based the CKD-EPI 2020 equation that does not use a race coefficient. Blood Venous blood specimen / Unknown Venipuncture / Unknown 06/03/2025 12:13 AM EDT 06/03/2025 12:30 AM EDT us Doyle CASTELLANOS LAB BLOOD ORDERABLES Final Result [facility] [address] [place] [address] * Magnesium, Plasma (06/03/2025 12:13 AM EDT) Magnesium, Plasma 2.2 1.9 - 2.4 mg/dL 06/03/2025 1:04 AM EDT [facility] Blood Venous blood specimen / Unknown Venipuncture / Unknown 06/03/2025 12:13 AM EDT 06/03/2025 12:30 AM EDT Doyle CASTELLANOS LAB BLOOD ORDERABLES Final Result [facility] [address] [place] [address] * (ABNORMAL) CBC W/O Differential (06/03/2025 12:13 AM EDT) WBC Count 10.86(H) 3.70 - 10.30 10*3/uL LAB HEMATOLOGY METHOD 06/03/2025 12:44 AM EDT [facility] RBC Count 3.87(L) 3.90 - 5.20 10*6/uL LAB HEMATOLOGY METHOD 06/03/2025 12:44 AM EDT [facility] HGB 11.0(L) 11.2 - 15.7 g/dL LAB HEMATOLOGY METHOD 06/03/2025 12:44 AM EDT [facility] HCT 34.5 34.0 - 45.0 % LAB HEMATOLOGY METHOD 06/03/2025 12:44 AM EDT [facility] Platelet Count 260 155 - 369 10*3/uL LAB HEMATOLOGY METHOD 06/03/2025 12:44 AM EDT [facility] MCV 89 79 - 98 fL LAB HEMATOLOGY METHOD 06/03/2025 12:44 AM EDT [facility] MCH 28.4 26.0 - 32.0 pg LAB HEMATOLOGY METHOD 06/03/2025 12:44 AM EDT [facility] MCHC 31.9 30.7 - 35.5 g/dL LAB HEMATOLOGY METHOD 06/03/2025 12:44 AM EDT [facility] RDW 15.5(H) 11.5 - 14.5 % LAB HEMATOLOGY METHOD 06/03/2025 12:44 AM EDT [facility] MPV 10.9 8.8 - 12.5 fL LAB HEMATOLOGY METHOD 06/03/2025 12:44 AM EDT [facility] nRBC 0.0 <=0.0 per 100 WBCs LAB HEMATOLOGY METHOD 06/03/2025 12:44 AM EDT [facility] Blood Venous blood specimen / Unknown Venipuncture / Unknown 06/03/2025 12:13 AM EDT 06/03/2025 12:34 AM EDT Doyle CASTELLANOS LAB BLOOD ORDERABLES Final Result [facility] [address] [place] [address] * (ABNORMAL) CBC W/O Differential (06/02/2025 2:57 AM EDT) WBC Count 8.82 3.70 - 10.30 10*3/uL LAB HEMATOLOGY METHOD 06/02/2025 3:29 AM EDT [facility] RBC Count 3.68(L) 3.90 - 5.20 10*6/uL LAB HEMATOLOGY METHOD 06/02/2025 3:29 AM EDT [facility] HGB 10.7(L) 11.2 - 15.7 g/dL LAB HEMATOLOGY METHOD 06/02/2025 3:29 AM EDT [facility] HCT 33.0(L) 34.0 - 45.0 % LAB HEMATOLOGY METHOD 06/02/2025 3:29 AM EDT [facility] Platelet Count 183 155 - 369 10*3/uL LAB HEMATOLOGY METHOD 06/02/2025 3:29 AM EDT [facility] MCV 90 79 - 98 fL LAB HEMATOLOGY METHOD 06/02/2025 3:29 AM EDT [facility] MCH 29.1 26.0 - 32.0 pg LAB HEMATOLOGY METHOD 06/02/2025 3:29 AM EDT [facility] MCHC 32.4 30.7 - 35.5 g/dL LAB HEMATOLOGY METHOD 06/02/2025 3:29 AM EDT [facility] RDW 15.6(H) 11.5 - 14.5 % LAB HEMATOLOGY METHOD 06/02/2025 3:29 AM EDT [facility] MPV 11.1 8.8 - 12.5 fL LAB HEMATOLOGY METHOD 06/02/2025 3:29 AM EDT [facility] nRBC 0.0 <=0.0 per 100 WBCs LAB HEMATOLOGY METHOD 06/02/2025 3:29 AM EDT [facility] Blood Venous blood specimen / Unknown Venipuncture / Unknown 06/02/2025 2:57 AM EDT 06/02/2025 3:18 AM EDT us Nidia Vance APRN LAB BLOOD ORDERABLES Final Result [facility] [address] [place] [address] * Magnesium, Plasma (06/02/2025 2:57 AM EDT) Magnesium, Plasma 2.4 1.9 - 2.4 mg/dL 06/02/2025 3:56 AM EDT [facility] Blood Venous blood specimen / Unknown Venipuncture / Unknown 06/02/2025 2:57 AM EDT 06/02/2025 3:17 AM EDT us Nidia Vance APRN LAB BLOOD ORDERABLES Final Result Performing Organization Address City/[facility]/ZIP Co de Phone Number [facility] [address] [place] [address] * (ABNORMAL) Renal Function Panel, Plasma (06/02/2025 2:57 AM EDT) Glucose, Plasma 116(H) 74 - 99 mg/dL 06/02/2025 3:56 AM EDT [facility] BUN, Plasma 25(H) 8 - 23 mg/dL 06/02/2025 3:56 AM EDT [facility] Creatinine, Plasma 0.57(L) 0.60 - 1.10 mg/dL 06/02/2025 3:56 AM EDT [facility] BUN/Creatinine Ratio 44 06/02/2025 3:56 AM EDT [facility] Sodium, Plasma 144 136 - 145 mmol/L 06/02/2025 3:56 AM EDT [facility] Potassium, Plasma 4.8 3.6 - 4.9 mmol/L 06/02/2025 3:56 AM EDT [facility] Chloride, Plasma 110(H) 97 - 107 mmol/L 06/02/2025 3:56 AM EDT [facility] CO2, Plasma 25 22 - 29 mmol/L 06/02/2025 3:56 AM EDT [facility] Anion Gap 9 6 - 16 mmol/L 06/02/2025 3:56 AM EDT [facility] Total Calcium, Plasma 9.1 8.9 - 10.2 mg/dL 06/02/2025 3:56 AM EDT [facility] Phosphorus, Plasma 2.2(L) 2.5 - 4.5 mg/dL 06/02/2025 3:56 AM EDT [facility] Albumin, Plasma 3.2(L) 3.5 - 5.2 g/dL 06/02/2025 3:56 AM EDT [facility] eGFRcr 97.3 mL/min/1.7 3m*2 06/02/2025 3:56 AM EDT [facility] Comment:Reported eGFRcr in m L/min/1.73m2 is based the CKD-EPI 2020 equation that does not use a race coefficient. Blood Venous blood specimen / Unknown Venipuncture / Unknown 06/02/2025 2:57 AM EDT 06/02/2025 3:17 AM EDT Nidia Vance APRN LAB BLOOD ORDERABLES Final Result [facility] [address] [place] [address] * XR Chest 1 View (06/02/2025 2:57 [...] MD on 06/02/2025 4:40 AM Yvrose Campbell [employer] IMG XR PROCEDURES Final Re sult * Lavender Top (06/01/2025 5:22 PM EDT) Extra Hold for add-ons 06/01/2025 8:01 PM EDT [facility] Comment:Auto resulted. Blood Venous blood specimen / Unknown 06/01/2025 5:22 PM EDT 06/01/2025 5:22 PM EDT us Jose C Nicholson MD LAB BLOOD ORDERABLES Final Resu lt [facility] [address] [place] [address] * Magnesium (06/01/2025 5:18 PM EDT) Magnesium, Plasma 2.1 1.9 - 2.4 mg/dL 06/01/2025 6:50 PM EDT [facility] Blood Venous blood specimen / Unknown Venipuncture / Unknown 06/01/2025 5:18 PM EDT 06/01/2025 5:21 PM EDT us Jose C Nicholson MD LAB BLOOD ORDERABLES Final Resu lt [facility] [address] [place] [address] * (ABNORMAL) Renal Function Panel, Plasma (06/01/2025 5:18 PM EDT) Glucose, Plasma 110(H) 74 - 99 mg/dL 06/01/2025 5:50 PM EDT [facility] BUN, Plasma 23 8 - 23 mg/dL 06/01/2025 5:50 PM EDT [facility] Creatinine, Plasma 0.44(L) 0.60 - 1.10 mg/dL 06/01/2025 5:50 PM EDT [facility] BUN/Creatinine Ratio 52 06/01/2025 5:50 PM EDT [facility] Sodium, Plasma 147(H) 136 - 145 mmol/L 06/01/2025 5:50 PM EDT [facility] Potassium, Plasma 3.5(L) 3.6 - 4.9 mmol/L 06/01/2025 5:50 PM EDT [facility] Chloride, Plasma 115(H) 97 - 107 mmol/L 06/01/2025 5:50 PM EDT [facility] CO2, Plasma 22 22 - 29 mmol/L 06/01/2025 5:50 PM EDT [facility] Anion Gap 10 6 - 16 mmol/L 06/01/2025 5:50 PM EDT [facility] Total Calcium, Plasma 7.3(L) 8.9 - 10.2 mg/dL 06/01/2025 5:50 PM EDT [facility] Phosphorus, Plasma 1.9(L) 2.5 - 4.5 mg/dL 06/01/2025 5:50 PM EDT [facility] Albumin, Plasma 2.7(L) 3.5 - 5.2 g/dL 06/01/2025 5:50 PM EDT [facility] eGFRcr 103.6 mL/min/1.7 3m*2 06/01/2025 5:50 PM EDT [facility] Comment:Reported eGFRcr in m L/min/1.73m2 is based the CKD-EPI 2020 equation that does not use a race coefficient. Blood Venous blood specimen / Unknown Venipuncture / Unknown 06/01/2025 5:18 PM EDT 06/01/2025 5:21 PM EDT us Yvrose Campbell SILVER RECOVERY OPERATOR LAB BLOOD ORDERABLES Final Result Performing Organization Address City/[facility]/ZIP Co de Phone Number [facility] [address] [place] [address] * (ABNORMAL) POCT glucose meter (06/01/2025 5:13 PM EDT) [facility] POCT Glucose 111(H) 74 - 99 mg/dL [...] Comment 06/01/2025 5:51 PM EDT [facility] Security Assistant ID Loly Barnes 06/01/2025 5:51 PM EDT [facility] LAB Device ID [id number] 06/01/2025 5:51 PM EDT [facility] Specimen Type POC Capillary 06/01/2025 5:51 PM EDT [facility] Blood Capillary blood specimen / Unknown 06/01/2025 5:13 PM EDT 06/01/2025 5:51 PM EDT us Jose C Nicholson MD LAB POINT OF CARE TE ST DOCKED DEVICE UNSOLICITED RESULTS Final Result Performing Organization Address City/[facility]/ZIP Co de Phone Number [facility] [address] [place] [address] * [place] [facility], E/M 30-74 MINUTES (06/01/2025 4:35 [...] written report. Preliminary report signed by Sapphire Sanhi on 06/01/2025 4:29 PM By electronically signing [...] FSVS, RPVI on06/02/2025 5:48 PM Nidia Vance APRN CV VASCULAR PROCEDURES Barbara wynn Result * (ABNORMAL) POCT glucose meter (06/01/2025 11:47 AM EDT) POCT Glucose 106(H) 74 - 99 mg/dL 06/01/2025 12:44 PM EDT [facility] Comment:Accuracy of a glucos e result [...] for testing. Comment 06/01/2025 12:44 PM EDT [employer] [facility] Security Assistant ID Loly Barnes 06/01/2025 12:44 PM EDT [facility] Device ID [id number] 06/01/2025 12:44 PM EDT [facility] Specimen Type POC Capillary 06/01/2025 12:44 PM EDT [facility] Blood Capillary blood specimen / Unknown 06/01/2025 11:47 AM EDT 06/01/2025 12:44 PM EDT us Jose C Nicholson MD LAB POINT OF CARE TE ST DOCKED DEVICE UNSOLICITED RESULTS Final Result Performing Organization Address City/State/[facility] Co de Phone Number [facility] [address] [place] [id number] * XR Abdomen 1 View (06/01/2025 8:45 [...] bowel gas pattern. No pneumoperitoneum. Procedure Note Maryann Reyez MD - 06/01/2025 CLINICAL INDICATION: constipation [...] Maryann Reyez MD on 06/01/2025 8:59 AM us Yvrose Campbell SILVER RECOVERY OPERATOR IMG XR PROCEDURES Final Re sult * [...] Comment 06/01/2025 8:12 AM EDT [facility] Security Assistant ID Birgit Patrick 06/01/2025 8:12 AM EDT [facility] LAB Device ID [id number] 06/01/2025 8:12 AM EDT [facility] Specimen Type POC Capillary 06/01/2025 8:12 AM EDT [facility] Blood Capillary blood specimen / Unknown 06/01/2025 6:26 AM EDT 06/01/2025 8:12 AM EDT us Jose C Nicholson MD LAB POINT OF CARE TE ST DOCKED DEVICE UNSOLICITED RESULTS Final Result Performing Organization Address City/State/[facility] Co de Phone Number [facility] [address] [place] [address] * XR Chest 1 View (06/01/2025 6:01 [...] MD on 06/01/2025 10:24 AM Nidia Vance SILVER RECOVERY OPERATOR IMG XR PROCEDURES Final Res ult * (ABNORMAL) CBC W/O Differential (06/01/2025 12:25 AM EDT) WBC Count 9.07 3.70 - 10.30 10*3/uL LAB HEMATOLOGY METHOD 06/01/2025 12:45 AM EDT [facility] RBC Count 3.34(L) 3.90 - 5.20 10*6/uL LAB HEMATOLOGY METHOD 06/01/2025 12:45 AM EDT [facility] HGB 9.7(L) 11.2 - 15.7 g/dL LAB HEMATOLOGY METHOD 06/01/2025 12:45 AM EDT [facility] HCT 29.6(L) 34.0 - 45.0 % LAB HEMATOLOGY METHOD 06/01/2025 12:45 AM EDT [facility] Platelet Count 122(L) 155 - 369 10*3/uL LAB HEMATOLOGY METHOD 06/01/2025 12:45 AM EDT [facility] MCV 89 79 - 98 fL LAB HEMATOLOGY METHOD 06/01/2025 12:45 AM EDT [facility] MCH 29.0 26.0 - 32.0 pg LAB HEMATOLOGY METHOD 06/01/2025 12:45 AM EDT [facility] MCHC 32.8 30.7 - 35.5 g/dL LAB HEMATOLOGY METHOD 06/01/2025 12:45 AM EDT [facility] RDW 15.8(H) 11.5 - 14.5 % LAB HEMATOLOGY METHOD 06/01/2025 12:45 AM EDT [facility] MPV 11.5 8.8 - 12.5 fL LAB HEMATOLOGY METHOD 06/01/2025 12:45 AM EDT [facility] nRBC 0.0 <=0.0 per 100 WBCs LAB HEMATOLOGY METHOD 06/01/2025 12:45 AM EDT [facility] Blood Blood sample taken from central line / Unknown Venipuncture / Unknown 06/01/2025 12:25 AM EDT 06/01/2025 12:32 AM EDT Nidia Vance APRN LAB BLOOD ORDERABLES Final Result Performing Organization Address [facility] Co de Phone Number [facility] [address] [place] [address] * (ABNORMAL) Magnesium, Plasma (06/01/2025 12:25 AM EDT) Magnesium, Plasma 3.9(H) 1.9 - 2.4 mg/dL 06/01/2025 1:00 AM EDT [facility] Blood Blood sample taken from central line / Unknown Venipuncture / Unknown 06/01/2025 12:25 AM EDT 06/01/2025 12:33 AM EDT us Nidia Vance APRN LAB BLOOD ORDERABLES Final Result [facility] [address] [place] [address] * (ABNORMAL) Renal Function Panel, Plasma (06/01/2025 12:25 AM EDT) Glucose, Plasma 122(H) 74 - 99 mg/dL 06/01/2025 1:00 AM EDT [facility] BUN, Plasma 23 8 - 23 mg/dL 06/01/2025 1:00 AM EDT [facility] Creatinine, Plasma 0.53(L) 0.60 - 1.10 mg/dL 06/01/2025 1:00 AM EDT [facility] BUN/Creatinine Ratio 43 06/01/2025 1:00 AM EDT [facility] Sodium, Plasma 145 136 - 145 mmol/L 06/01/2025 1:00 AM EDT [facility] Potassium, Plasma 3.7 3.6 - 4.9 mmol/L 06/01/2025 1:00 AM EDT [facility] Chloride, Plasma 110(H) 97 - 107 mmol/L 06/01/2025 1:00 AM EDT [facility] CO2, Plasma 25 22 - 29 mmol/L 06/01/2025 1:00 AM EDT [facility] Anion Gap 10 6 - 16 mmol/L 06/01/2025 1:00 AM EDT [facility] Total Calcium, Plasma 8.5(L) 8.9 - 10.2 mg/dL 06/01/2025 1:00 AM EDT [facility] Phosphorus, Plasma 2.1(L) 2.5 - 4.5 mg/dL 06/01/2025 1:00 AM EDT [facility] Albumin, Plasma 2.9(L) 3.5 - 5.2 g/dL 06/01/2025 1:00 AM EDT [facility] eGFRcr 99.0 mL/min/1.7 3m*2 06/01/2025 1:00 AM EDT [facility] Comment:Reported eGFRcr in m L/min/1.73m2 is based the CKD-EPI 2020 equation that does not use a race coefficient. Blood Blood sample taken from central line / Unknown Venipuncture / Unknown 06/01/2025 12:25 AM EDT 06/01/2025 12:33 AM EDT us Nidia Vance APRN LAB BLOOD ORDERABLES Final Result [facility] [address] [place] [address] * [place] CR[facility], E/M 30-74 MINUTES (05/31/2025 4:29 [...] POCT glucose meter (05/31/2025 12:03 PM EDT) [facility] POCT Glucose 149(H) 74 - 99 mg/dL 05/31/2025 12:05 PM EDT [facility] Comment:Accuracy of [...] for testing. Comment 05/31/2025 12:05 PM EDT [facility] LAB Security Assistant ID Pauline Cm [id number] 12:05 PM EDT [facility] LAB Device ID [id number] 05/31/2025 12:05 PM EDT [facility] Specimen Type POC Capillary 05/31/2025 12:05 PM EDT [facility] Blood Capillary blood specimen / Unknown 05/31/2025 12:03 PM EDT 05/31/2025 12:05 PM EDT us Jose C Nicholson MD LAB POINT OF CARE TE ST DOCKED DEVICE UNSOLICITED RESULTS Final Result [facility] [address] [place] [address] * (ABNORMAL) POCT glucose meter (05/31/2025 6:07 AM EDT) POCT Glucose 119(H) 74 - [...] Comment 05/31/2025 6:08 AM EDT [facility] Security Assistant ID Hari Chapin 05/31/2025 6:08 AM EDT [facility] LAB Device ID [id number] 05/31/2025 6:08 AM EDT [facility] Specimen Type POC Venous 05/31/2025 6:08 AM EDT [facility] Blood Venous blood specimen / Unknown 05/31/2025 6:07 AM EDT 05/31/2025 6:08 AM EDT Jose C Nicholson MD LAB POINT OF CARE TE ST DOCKED DEVICE UNSOLICITED RESULTS Final Result Performing Organization Address City/[facility]/ZIP Co de Phone Number [facility] [address] [place] [address] * XR Chest 1 View (05/31/2025 2:35 [...] day prior FINDINGS: Interval removal of the Alb[place]-Chrissy catheter. The rest of the support hardware are unchanged in position. The cardiomediastinal contours unchanged. No pneumothorax. Small bilateral pleural effusions similar to prior. Similar bilateral perihilar and bibasal lung opacities. Procedure Note Merle Hall MD - 05/31/2025 CLINICAL INDICATION: respiratory failure TECHNIQUE: Single AP view of chest. COMPARISON: One day prior FINDINGS: Interval removal of the Albion-Chrissy catheter. The rest of the supporthardware are unchanged in position. The cardiomediastinal contoursunchanged. No pneumothorax. Small bilateral pleural effusions similar toprior. Similar bilateral perihilar and bibasal lung opacities. IMPRESSION: No significant interval change. CRITICAL RESULT: No. COMMUNICATION: Per this written report. Drafted by Merle Hall MD on 05/31/2025 10:47 AM Final report signed by Merle Hall MD on 05/31/2025 10:48 AM us Nidia Vance SILVER RECOVERY OPERATOR IMG XR PROCEDURES Final Res ult * (ABNORMAL) CBC W/O Differential (05/31/2025 12:14 AM EDT) WBC Count 9.01 3.70 - 10.30 10*3/uL LAB HEMATOLOGY METHOD 05/31/2025 12:35 AM EDT [facility] RBC Count 3.06(L) 3.90 - 5.20 10*6/uL LAB HEMATOLOGY METHOD 05/31/2025 12:35 AM EDT [facility] HGB 8.9(L) 11.2 - 15.7 g/dL LAB HEMATOLOGY METHOD 05/31/2025 12:35 AM EDT [facility] HCT 27.1(L) 34.0 - 45.0 % LAB HEMATOLOGY METHOD 05/31/2025 12:35 AM EDT [facility] Platelet Count 76(L) 155 - 369 10*3/uL LAB HEMATOLOGY METHOD 05/31/2025 12:35 AM EDT [facility] MCV 89 79 - 98 fL LAB HEMATOLOGY METHOD 05/31/2025 12:35 AM EDT [facility] MCH 29.1 26.0 - 32.0 pg LAB HEMATOLOGY METHOD 05/31/2025 12:35 AM EDT [facility] MCHC 32.8 30.7 - 35.5 g/dL LAB HEMATOLOGY METHOD 05/31/2025 12:35 AM EDT [facility] RDW 15.9(H) 11.5 - 14.5 % LAB HEMATOLOGY METHOD 05/31/2025 12:35 AM EDT [facility] MPV 11.9 8.8 - 12.5 fL LAB HEMATOLOGY METHOD 05/31/2025 12:35 AM EDT [facility] nRBC 0.0 <=0.0 per 100 WBCs LAB HEMATOLOGY METHOD 05/31/2025 12:35 AM EDT [facility] Blood Venous blood specimen / Unknown Venipuncture / Unknown 05/31/2025 12:14 AM EDT 05/31/2025 12:27 AM EDT us Nidia Vance APRN LAB BLOOD ORDERABLES Final Result [facility] [address] [place] [address] * Magnesium, Plasma (05/31/2025 12:14 AM EDT) Magnesium, Plasma 2.0 1.9 - 2.4 mg/dL 05/31/2025 12:55 AM EDT [facility] Blood Venous blood specimen / Unknown Venipuncture / Unknown 05/31/2025 12:14 AM EDT 05/31/2025 12:25 AM EDT us Nidia Vance APRN LAB BLOOD ORDERABLES Final Result [facility] [address] [place] [address] * (ABNORMAL) Renal Function Panel, Plasma (05/31/2025 12:14 AM EDT) Glucose, Plasma 129(H) 74 - 99 mg/dL 05/31/2025 12:55 AM EDT [facility] BUN, Plasma 22 8 - 23 mg/dL 05/31/2025 12:55 AM EDT [facility] Creatinine, Plasma 0.59(L) 0.60 - 1.10 mg/dL 05/31/2025 12:55 AM EDT [facility] BUN/Creatinine Ratio 37 05/31/2025 12:55 AM EDT [facility] Sodium, Plasma 147(H) 136 - 145 mmol/L 05/31/2025 12:55 AM EDT [facility] Potassium, Plasma 3.6 3.6 - 4.9 mmol/L 05/31/2025 12:55 AM EDT [facility] Chloride, Plasma 112(H) 97 - 107 mmol/L 05/31/2025 12:55 AM EDT [facility] CO2, Plasma 27 22 - 29 mmol/L 05/31/2025 12:55 AM EDT [facility] Anion Gap 8 6 - 16 mmol/L 05/31/2025 12:55 AM EDT [facility] Total Calcium, Plasma 8.6(L) 8.9 - 10.2 mg/dL 05/31/2025 12:55 AM EDT [facility] Phosphorus, Plasma 2.4(L) 2.5 - 4.5 mg/dL 05/31/2025 12:55 AM EDT [facility] Albumin, Plasma 3.2(L) 3.5 - 5.2 g/dL 05/31/2025 12:55 AM EDT [facility] eGFRcr 96.5 mL/min/1.7 3m*2 05/31/2025 12:55 AM EDT [facility] Comment:Reported eGFRcr in m L/min/1.73m2 is based the CKD-EPI 2020 equation that does not use a race coefficient. Blood Venous blood specimen / Unknown Venipuncture / Unknown 05/31/2025 12:14 AM EDT 05/31/2025 12:25 AM EDT us Nidia Vance SILVER RECOVERY OPERATOR LAB BLOOD ORDERABLES Final Result [facility] [address] [place] [address] * (ABNORMAL) POCT glucose meter (05/31/2025 12:13 AM EDT) Pathologist [facility] POCT Glucose 118(H) 74 - 99 mg/dL 05/31/2025 12:14 AM EDT [facility] Comment:Accuracy of [...] for testing. Comment 05/31/2025 12:14 AM EDT [facility]ALTH[facility]ARE LAB Security Assistant ID Hari Chapin 05/31/2025 12:14 AM EDT [facility] Device ID [id number] 05/31/2025 12:14 AM EDT [facility] Specimen Type POC Venous 05/31/2025 12:14 AM EDT [facility] Blood Venous blood specimen / Unknown 05/31/2025 12:13 AM EDT 05/31/2025 12:14 AM EDT us Jose C Nicholson MD LAB POINT OF CARE TE ST DOCKED DEVICE UNSOLICITED RESULTS Final Result Performing Organization Address City/State/[facility] Co de Phone Number [facility] [address] [place] [address] * (ABNORMAL) POCT glucose meter (05/30/2025 5:56 PM EDT) Pathologist [facility] POCT Glucose 134(H) 74 - 99 mg/dL [...] for testing. Comment 05/30/2025 5:58 PM EDT [facility] Security Assistant ID Kayla aRmirez [id number] 5:58 PM EDT [facility] Device ID [id number] 05/30/2025 5:58 PM EDT [facility] Specimen Type POC Capillary 05/30/2025 5:58 PM EDT [facility] Blood Capillary blood specimen / Unknown 05/30/2025 5:56 PM EDT 05/30/2025 5:58 PM EDT us Jose C Nicholson MD LAB POINT OF CARE TE ST DOCKED DEVICE UNSOLICITED RESULTS Final Result [facility] [address] [place] [address] * (ABNORMAL) Blood gas panel, venous (05/30/2025 4:12 PM EDT) pH, Venous 7.42 7.32 - 7.43 LAB HEMATOLOGY METHOD 05/30/2025 4:24 PM EDT [facility] pCO2, Venous 46 37 - 52 mmHg LAB HEMATOLOGY METHOD 05/30/2025 4:24 PM EDT [facility] pO2, Venous 34 25 - 40 mmHg LAB HEMATOLOGY METHOD 05/30/2025 4:24 PM EDT [facility] SO2, Measured, Venous 67 65 - 80 % LAB HEMATOLOGY METHOD 05/30/2025 4:24 PM EDT [facility] Base Excess, Venous 4.8(H) -2.0 - 3.0 mmol/L LAB HEMATOLOGY METHOD 05/30/2025 4:24 PM EDT [facility] Bicarbonate, Calculated, Venous 30(H) 22 - 26 mmol/L LAB HEMATOLOGY METHOD 05/30/2025 4:24 PM EDT [facility] Hematocrit, Whole Blood 29.2(L) 34.0 - 45.0 % LAB HEMATOLOGY METHOD 05/30/2025 4:24 PM EDT [facility] Sodium, Whole Blood 147(H) 136 - 145 mmol/L LAB HEMATOLOGY METHOD 05/30/2025 4:24 PM EDT [facility] Potassium, Whole Blood 3.4(L) 3.6 - 4.9 mmol/L LAB HEMATOLOGY METHOD 05/30/2025 4:24 PM EDT [facility] Chloride, Whole Blood 108(H) 97 - 107 mmol/L LAB HEMATOLOGY METHOD 05/30/2025 4:24 PM EDT [facility] Glucose, Whole Blood 135(H) 74 - 99 mg/dL LAB HEMATOLOGY METHOD 05/30/2025 4:24 PM EDT [facility] Lactate, Venous, Whole Blood 1.4 0.5 - 2.2 mmol/L LAB HEMATOLOGY METHOD 05/30/2025 4:24 PM EDT [facility] Ionized Calcium, Whole Blood 5.0 4.6 - 5.1 mg/dL LAB HEMATOLOGY METHOD 05/30/2025 4:24 PM EDT [facility] Blood Venous blood specimen / Unknown Venipuncture / Unknown 05/30/2025 4:12 PM EDT 05/30/2025 4:22 PM EDT us Jose C Nicholson MD LAB BLOOD ORDERABLES Final Resu lt [facility] [address] [place] [address] * Magnesium, Plasma (05/30/2025 4:12 PM EDT) Magnesium, Plasma 2.0 1.9 - 2.4 mg/dL 05/30/2025 5:11 PM EDT [facility] Blood Venous blood specimen / Unknown Venipuncture / Unknown 05/30/2025 4:12 PM EDT 05/30/2025 4:39 PM EDT us Nidia Vance APRN LAB BLOOD ORDERABLES Final Result Performing Organization Address City/[facility]/ZIP Co de Phone Number [facility] [address] [place] [address] * (ABNORMAL) Renal Function Panel, Plasma (05/30/2025 4:12 PM EDT) Glucose, Plasma 131(H) 74 - 99 mg/dL 05/30/2025 5:11 PM EDT [facility] BUN, Plasma 20 8 - 23 mg/dL 05/30/2025 5:11 PM EDT [facility] Creatinine, Plasma 0.60 0.60 - 1.10 mg/dL 05/30/2025 5:11 PM EDT [facility] BUN/Creatinine Ratio 33 05/30/2025 5:11 PM EDT [facility] Sodium, Plasma 146(H) 136 - 145 mmol/L 05/30/2025 5:11 PM EDT [facility] Potassium, Plasma 3.5(L) 3.6 - 4.9 mmol/L 05/30/2025 5:11 PM EDT [facility] Chloride, Plasma 108(H) 97 - 107 mmol/L 05/30/2025 5:11 PM EDT [facility] CO2, Plasma 25 22 - 29 mmol/L 05/30/2025 5:11 PM EDT [facility] Anion Gap 13 6 - 16 mmol/L 05/30/2025 5:11 PM EDT [facility] Total Calcium, Plasma 8.8(L) 8.9 - 10.2 mg/dL 05/30/2025 5:11 PM EDT [facility] Phosphorus, Plasma 2.1(L) 2.5 - 4.5 mg/dL 05/30/2025 5:11 PM EDT [facility] Albumin, Plasma 3.4(L) 3.5 - 5.2 g/dL 05/30/2025 5:11 PM EDT [facility] eGFRcr 96.1 mL/min/1.7 3m*2 05/30/2025 5:11 PM EDT [facility] Comment:Reported eGFRcr in m L/min/1.73m2 is based the CKD-EPI 2020 equation that does not use a race coefficient. Blood Venous blood specimen / Unknown Venipuncture / Unknown 05/30/2025 4:12 PM EDT 05/30/2025 4:39 PM EDT us Nidia Vance APRN LAB BLOOD ORDERABLES Final Result [facility] [address] [place] [address] * (ABNORMAL) Blood gas panel, venous (05/30/2025 2:35 PM EDT) pH, Venous 7.42 7.32 - 7.43 LAB HEMATOLOGY METHOD 05/30/2025 2:42 PM EDT [facility] pCO2, Venous 46 37 - 52 mmHg LAB HEMATOLOGY METHOD 05/30/2025 2:42 PM EDT [facility] pO2, Venous 38 25 - 40 mmHg LAB HEMATOLOGY METHOD 05/30/2025 2:42 PM EDT [facility] SO2, Measured, Venous 73 65 - 80 % LAB HEMATOLOGY METHOD 05/30/2025 2:42 PM EDT [facility] Base Excess, Venous 4.3(H) -2.0 - 3.0 mmol/L LAB HEMATOLOGY METHOD 05/30/2025 2:42 PM EDT [facility] Bicarbonate, Calculated, Venous 29(H) 22 - 26 mmol/L LAB HEMATOLOGY METHOD 05/30/2025 2:42 PM EDT [facility] Hematocrit, Whole Blood 27.6(L) 34.0 - 45.0 % LAB HEMATOLOGY METHOD 05/30/2025 2:42 PM EDT [facility] Sodium, Whole Blood 147(H) 136 - 145 mmol/L LAB HEMATOLOGY METHOD 05/30/2025 2:42 PM EDT [facility] Potassium, Whole Blood 3.7 3.6 - 4.9 mmol/L LAB HEMATOLOGY METHOD 05/30/2025 2:42 PM EDT [facility] Chloride, Whole Blood 109(H) 97 - 107 mmol/L LAB HEMATOLOGY METHOD 05/30/2025 2:42 PM EDT [facility] Glucose, Whole Blood 162(H) 74 - 99 mg/dL LAB HEMATOLOGY METHOD 05/30/2025 2:42 PM EDT [facility] Lactate, Venous, Whole Blood 1.0 0.5 - 2.2 mmol/L LAB HEMATOLOGY METHOD 05/30/2025 2:42 PM EDT [facility] Ionized Calcium, Whole Blood 4.9 4.6 - 5.1 mg/dL LAB HEMATOLOGY METHOD 05/30/2025 2:42 PM EDT [facility] Blood Venous blood specimen / Unknown Venipuncture / Unknown 05/30/2025 2:35 PM EDT 05/30/2025 2:40 PM EDT us Jose C Nicholson MD LAB BLOOD ORDERABLES Final Resu lt [facility] [address] [place] [address] * (ABNORMAL) POCT glucose meter (05/30/2025 12:20 PM EDT) POCT Glucose 166(H) 74 - 99 mg/dL [...] for testing. Comment 05/30/2025 12:22 PM EDT [facility] Security Assistant ID Kayla Ramirez [id number] 12:22 PM EDT [facility] Device ID [id number] 05/30/2025 12:22 PM EDT [facility] Specimen Type POC Capillary 05/30/2025 12:22 PM EDT [facility] Blood Capillary blood specimen / Unknown 05/30/2025 12:20 PM EDT 05/30/2025 12:22 PM EDT Jose C Nicholson MD LAB POINT OF CARE TE ST DOCKED DEVICE UNSOLICITED RESULTS Final Result [facility] [address] [place] [address] * [facility], ADDL 30 MIN (05/30/2025 12:09 [...] POCT glucose meter (05/30/2025 6:44 AM EDT) POCT Glucose 121(H) 74 - 99 mg/dL 05/30/2025 6:46 AM EDT [facility] Comment:Accuracy of a [...] for testing. Comment 05/30/2025 6:46 AM EDT [facility] Security Assistant ID Angelita Tyson 6:46 AM EDT [facility] Device ID [id number] 05/30/2025 6:46 AM EDT [facility] Specimen Type POC Capillary 05/30/2025 6:46 AM EDT [facility] Blood Capillary blood specimen / Unknown 05/30/2025 6:44 AM EDT 05/30/2025 6:46 AM EDT us Jose C Nicholson MD LAB POINT OF CARE TE ST DOCKED DEVICE UNSOLICITED RESULTS Final Result [facility] [address] [place] [address] * (ABNORMAL) Blood gas, arterial (05/30/2025 4:23 AM EDT) pH, Arterial 7.43(H) 7.31 - 7.42 LAB HEMATOLOGY METHOD 05/30/2025 4:36 AM EDT [facility] pCO2, Arterial 43 35 - 48 mmHg LAB HEMATOLOGY METHOD 05/30/2025 4:36 AM EDT [facility] pO2, Arterial 78 >70 mmHg LAB HEMATOLOGY METHOD 05/30/2025 4:36 AM EDT [facility] SO2, Measured, Arterial 96 94 - 98 % LAB HEMATOLOGY METHOD 05/30/2025 4:36 AM EDT [facility] Base Excess, Arterial 3.7(H) -2.0 - 3.0 mmol/L LAB HEMATOLOGY METHOD 05/30/2025 4:36 AM EDT [facility] Bicarbonate, Calculated, Arterial 28(H) 22 - 26 mmol/L LAB HEMATOLOGY METHOD 05/30/2025 4:36 AM EDT [facility] Hematocrit, Whole Blood 29.0(L) 34.0 - 45.0 % LAB HEMATOLOGY METHOD 05/30/2025 4:36 AM EDT [facility] Sodium, Whole Blood 147(H) 136 - 145 mmol/L LAB HEMATOLOGY METHOD 05/30/2025 4:36 AM EDT [facility] Potassium, Whole Blood 3.8 3.6 - 4.9 mmol/L LAB HEMATOLOGY METHOD 05/30/2025 4:36 AM EDT [facility] Chloride, Whole Blood 110(H) 97 - 107 mmol/L LAB HEMATOLOGY METHOD 05/30/2025 4:36 AM EDT [facility] Glucose, Whole Blood 127(H) 74 - 99 mg/dL LAB HEMATOLOGY METHOD 05/30/2025 4:36 AM EDT [facility] Ionized Calcium, Whole Blood 5.1 4.6 - 5.1 mg/dL LAB HEMATOLOGY METHOD 05/30/2025 4:36 AM EDT [facility] Lactate, Arterial, Whole Blood 0.9 0.5 - 1.6 mmol/L LAB HEMATOLOGY METHOD 05/30/2025 4:36 AM EDT [facility] Blood Arterial blood specimen / Unknown Arterial Puncture / Unknown 05/30/2025 4:23 AM EDT 05/30/2025 4:34 AM EDT us Jose C Nicholson MD LAB BLOOD ORDERABLES Final Resu lt [facility] [address] [place] [address] * (ABNORMAL) Blood gas panel, mixed venous (05/30/2025 4:22 AM EDT) pH, Mixed Venous 7.41 7.32 - 7.43 LAB HEMATOLOGY METHOD 05/30/2025 4:36 AM EDT [facility] pCO2, Mixed Venous 46 37 - 52 mmHg LAB HEMATOLOGY METHOD 05/30/2025 4:36 AM EDT [facility] pO2, Mixed Venous 37 25 - 40 mmHg LAB HEMATOLOGY METHOD 05/30/2025 4:36 AM EDT [facility] SO2, Measured, Mixed Venous 73 65 - 80 % LAB HEMATOLOGY METHOD 05/30/2025 4:36 AM EDT [facility] Base Excess, Mixed Venous 3.7(H) -2.0 - 3.0 mmol/L LAB HEMATOLOGY METHOD 05/30/2025 4:36 AM EDT [facility] Bicarbonate, Calculated, Mixed Venous 29(H) 22 - 26 mmol/L LAB HEMATOLOGY METHOD 05/30/2025 4:36 AM EDT [facility] Hematocrit, Whole Blood 28.6(L) 34.0 - 45.0 % LAB HEMATOLOGY METHOD 05/30/2025 4:36 AM EDT [facility] Sodium, Whole Blood 147(H) 136 - 145 mmol/L LAB HEMATOLOGY METHOD 05/30/2025 4:36 AM EDT [facility] Potassium, Whole Blood 3.7 3.6 - 4.9 mmol/L LAB HEMATOLOGY METHOD 05/30/2025 4:36 AM EDT [facility] Chloride, Whole Blood 111(H) 97 - 107 mmol/L LAB HEMATOLOGY METHOD 05/30/2025 4:36 AM EDT [facility] Ionized Calcium, Whole Blood 5.0 4.6 - 5.1 mg/dL LAB HEMATOLOGY METHOD 05/30/2025 4:36 AM EDT [facility] Glucose, Whole Blood 125(H) 74 - 99 mg/dL LAB HEMATOLOGY METHOD 05/30/2025 4:36 AM EDT [facility] Blood Mixed venous blood specimen / Unknown Venipuncture / Unknown 05/30/2025 4:22 AM EDT 05/30/2025 4:34 AM EDT Nidia Vance APRN LAB BLOOD ORDERABLES Final Result [facility] [address] [place] [address] * XR Chest 1 View (05/30/2025 2:18 [...] Les Steele MD on 05/30/2025 4:17 AM Nidia Vance APRN IMG XR PROCEDURES Final Res ult * (ABNORMAL) Blood gas panel, arterial (05/30/2025 12:58 AM EDT) pH, Arterial 7.41 7.31 - 7.42 LAB HEMATOLOGY METHOD 05/30/2025 1:19 AM EDT [facility] pCO2, Arterial 45 35 - 48 mmHg LAB HEMATOLOGY METHOD 05/30/2025 1:19 AM EDT [facility] pO2, Arterial 111 >70 mmHg LAB HEMATOLOGY METHOD 05/30/2025 1:19 AM EDT [facility] SO2, Measured, Arterial 98 94 - 98 % LAB HEMATOLOGY METHOD 05/30/2025 1:19 AM EDT [facility] Base Excess, Arterial 3.4(H) -2.0 - 3.0 mmol/L LAB HEMATOLOGY METHOD 05/30/2025 1:19 AM EDT [facility] Bicarbonate, Calculated, Arterial 29(H) 22 - 26 mmol/L LAB HEMATOLOGY METHOD 05/30/2025 1:19 AM EDT [facility] Hematocrit, Whole Blood 28.8(L) 34.0 - 45.0 % LAB HEMATOLOGY METHOD 05/30/2025 1:19 AM EDT [facility] Sodium, Whole Blood 147(H) 136 - 145 mmol/L LAB HEMATOLOGY METHOD 05/30/2025 1:19 AM EDT [facility] Potassium, Whole Blood 4.0 3.6 - 4.9 mmol/L LAB HEMATOLOGY METHOD 05/30/2025 1:19 AM EDT [facility] Chloride, Whole Blood 112(H) 97 - 107 mmol/L LAB HEMATOLOGY METHOD 05/30/2025 1:19 AM EDT [facility] Glucose, Whole Blood 118(H) 74 - 99 mg/dL LAB HEMATOLOGY METHOD 05/30/2025 1:19 AM EDT [facility] Ionized Calcium, Whole Blood 5.1 4.6 - 5.1 mg/dL LAB HEMATOLOGY METHOD 05/30/2025 1:19 AM EDT [facility] Lactate, Arterial, Whole Blood 0.7 0.5 - 1.6 mmol/L LAB HEMATOLOGY METHOD 05/30/2025 1:19 AM EDT [facility] Blood Arterial blood specimen / Unknown Arterial Puncture / Unknown 05/30/2025 12:58 AM EDT 05/30/2025 1:10 AM EDT us Nidia Vance APRN LAB BLOOD ORDERABLES Final Result [facility] [address] [place] [address] * (ABNORMAL) CBC W/O Differential (05/30/2025 12:58 AM EDT) WBC Count 9.27 3.70 - 10.30 10*3/uL LAB HEMATOLOGY METHOD 05/30/2025 1:23 AM EDT [facility] RBC Count 3.19(L) 3.90 - 5.20 10*6/uL LAB HEMATOLOGY METHOD 05/30/2025 1:23 AM EDT [facility] HGB 9.3(L) 11.2 - 15.7 g/dL LAB HEMATOLOGY METHOD 05/30/2025 1:23 AM EDT [facility] HCT 27.8(L) 34.0 - 45.0 % LAB HEMATOLOGY METHOD 05/30/2025 1:23 AM EDT [facility] Platelet Count 73(L) 155 - 369 10*3/uL LAB HEMATOLOGY METHOD 05/30/2025 1:23 AM EDT [facility] MCV 87 79 - 98 fL LAB HEMATOLOGY METHOD 05/30/2025 1:23 AM EDT [facility] MCH 29.2 26.0 - 32.0 pg LAB HEMATOLOGY METHOD 05/30/2025 1:23 AM EDT [facility] MCHC 33.5 30.7 - 35.5 g/dL LAB HEMATOLOGY METHOD 05/30/2025 1:23 AM EDT [facility] RDW 16.4(H) 11.5 - 14.5 % LAB HEMATOLOGY METHOD 05/30/2025 1:23 AM EDT [facility] MPV 11.8 8.8 - 12.5 fL LAB HEMATOLOGY METHOD 05/30/2025 1:23 AM EDT [facility] nRBC 0.0 <=0.0 per 100 WBCs LAB HEMATOLOGY METHOD 05/30/2025 1:23 AM EDT [facility] Blood Arterial blood specimen / Unknown Arterial Puncture / Unknown 05/30/2025 12:58 AM EDT 05/30/2025 1:12 AM EDT us Nidia Vance APRN LAB BLOOD ORDERABLES Final Result [facility] [address] [place] [address] * Magnesium, Plasma (05/30/2025 12:58 AM EDT) Magnesium, Plasma 2.1 1.9 - 2.4 mg/dL 05/30/2025 1:40 AM EDT [facility] Blood Arterial blood specimen / Unknown Arterial Puncture / Unknown 05/30/2025 12:58 AM EDT 05/30/2025 1:11 AM EDT Nidia Vance SILVER RECOVERY OPERATOR LAB BLOOD ORDERABLES Final Result [facility] [address] [place] [address] * (ABNORMAL) Renal Function Panel, Plasma (05/30/2025 12:58 AM EDT) Glucose, Plasma 122(H) 74 - 99 mg/dL 05/30/2025 1:40 AM EDT [facility] BUN, Plasma 26(H) 8 - 23 mg/dL 05/30/2025 1:40 AM EDT [facility] Creatinine, Plasma 0.69 0.60 - 1.10 mg/dL 05/30/2025 1:40 AM EDT [facility] BUN/Creatinine Ratio 38 05/30/2025 1:40 AM EDT [facility] Sodium, Plasma 147(H) 136 - 145 mmol/L 05/30/2025 1:40 AM EDT [facility] Potassium, Plasma 4.2 3.6 - 4.9 mmol/L 05/30/2025 1:40 AM EDT [facility] Chloride, Plasma 113(H) 97 - 107 mmol/L 05/30/2025 1:40 AM EDT [facility] CO2, Plasma 26 22 - 29 mmol/L 05/30/2025 1:40 AM EDT [facility] Anion Gap 8 6 - 16 mmol/L 05/30/2025 1:40 AM EDT [facility] Total Calcium, Plasma 9.3 8.9 - 10.2 mg/dL 05/30/2025 1:40 AM EDT [facility] Phosphorus, Plasma 2.4(L) 2.5 - 4.5 mg/dL 05/30/2025 1:40 AM EDT [facility] Albumin, Plasma 3.4(L) 3.5 - 5.2 g/dL 05/30/2025 1:40 AM EDT [facility] eGFRcr 92.9 mL/min/1.7 3m*2 05/30/2025 1:40 AM EDT [facility] Comment:Reported eGFRcr in m L/min/1.73m2 is based the CKD-EPI 2020 equation that does not use a race coefficient. Blood Arterial blood specimen / Unknown Arterial Puncture / Unknown 05/30/2025 12:58 AM EDT 05/30/2025 1:11 AM EDT us Nidia Vance APRN LAB BLOOD ORDERABLES Final Result [facility] [address] [place] [address] * [place] [facility], E/M 30-74 MINUTES (05/29/2025 11:24 [...] nursing services were present on rounds. us Gabby Duenas APRN, BUSINESS DEVELOPMENT COORDINATOR, DNP IN CLINIC/BEDSIDE ORDERABLES Final Result * (ABNORMAL) POCT glucose meter (05/29/2025 5:16 PM EDT) POCT Glucose 107(H) 74 - 99 mg/dL [...] for testing. Comment 05/29/2025 5:17 PM EDT [facility] Security Assistant ID Roxie Chacon 05/29/2025 5:17 PM EDT [facility] Device ID [id number] 05/29/2025 5:17 PM EDT [facility] Specimen Type POC Arterial 05/29/2025 5:17 PM EDT [facility] Blood Arterial blood specimen / Unknown 05/29/2025 5:16 PM EDT 05/29/2025 5:17 PM EDT Jose C Nicholson MD LAB POINT OF CARE TE ST DOCKED DEVICE UNSOLICITED RESULTS Final Result Performing Organization Address City/State/[facility] Co de Phone Number [facility] [address] [place] [address] * [place] [facility], ADDL 30 MIN, [place] CR[facility], ADDL 30 MIN (05/29/2025 2:33 [...] - 2.4 mg/dL 05/29/2025 2:09 PM EDT [facility] Blood Arterial blood specimen / Unknown Arterial Puncture / Unknown 05/29/2025 1:16 PM EDT 05/29/2025 1:35 PM EDT us Nidia Vance APRN LAB BLOOD ORDERABLES Final Result [facility] [address] [place] [address] * (ABNORMAL) Renal Function Panel, Plasma (05/29/2025 1:16 PM EDT) Glucose, Plasma 105(H) 74 - 99 mg/dL 05/29/2025 2:09 PM EDT [facility] BUN, Plasma 26(H) 8 - 23 mg/dL 05/29/2025 2:09 PM EDT [facility] Creatinine, Plasma 0.73 0.60 - 1.10 mg/dL 05/29/2025 2:09 PM EDT [facility] BUN/Creatinine Ratio 36 05/29/2025 2:09 PM EDT [facility] Sodium, Plasma 146(H) 136 - 145 mmol/L 05/29/2025 2:09 PM EDT [facility] Potassium, Plasma 3.5(L) 3.6 - 4.9 mmol/L 05/29/2025 2:09 PM EDT [facility] Chloride, Plasma 109(H) 97 - 107 mmol/L 05/29/2025 2:09 PM EDT [facility] CO2, Plasma 27 22 - 29 mmol/L 05/29/2025 2:09 PM EDT [facility] Anion Gap 10 6 - 16 mmol/L 05/29/2025 2:09 PM EDT [facility] Total Calcium, Plasma 8.7(L) 8.9 - 10.2 mg/dL 05/29/2025 2:09 PM EDT [facility] Phosphorus, Plasma 2.3(L) 2.5 - 4.5 mg/dL 05/29/2025 2:09 PM EDT [facility] Albumin, Plasma 3.2(L) 3.5 - 5.2 g/dL 05/29/2025 2:09 PM EDT [facility] eGFRcr 88.0 mL/min/1.7 3m*2 05/29/2025 2:09 PM EDT [facility] Comment:Reported eGFRcr in m L/min/1.73m2 is based the CKD-EPI 2020 equation that does not use a race coefficient. Blood Arterial blood specimen / Unknown Arterial Puncture / Unknown 05/29/2025 1:16 PM EDT 05/29/2025 1:35 PM EDT us Nidia Vance SILVER RECOVERY OPERATOR LAB BLOOD ORDERABLES Final Result [facility] [address] [place] [address] * XR Abdomen 1 View (05/29/2025 1:14 [...] Chest x-ray 05/29/2025. CT 01/14/2025 FINDINGS: Limited [id number] abdominal radiograph for the purpose of locating tube position. The tip of the feeding tube is within the proximal duodenum. Procedure Note Jerry Bearden MD - 05/29/2025 CLINICAL INDICATION: Post DHT placement TECHNIQUE: Supine radiograph of the abdomen. COMPARISON: Abdominal radiograph dated 05/27/2025. Chest x-ray 05/29/2025. CT 01/14/2025 FINDINGS: Limited [id number] abdominal radiograph for the purpose of locatingtube [...] with the final edited report. Drafted by Doyel Sawant III, MD on 05/29/2025 1:45 PM Final report signed by Jerry Bearden MD on 05/29/2025 4:09 PM Jose C Nicholson MD IMG XR PROCEDURES Final Result * (ABNORMAL) POCT glucose meter (05/29/2025 11:29 AM EDT) POCT Glucose 113(H) 74 - 99 mg/dL 05/29/2025 11:30 AM EDT [facility] Comment:Accuracy of a glucos e result [...] for testing. Comment 05/29/2025 11:30 AM EDT [facility] Security Assistant ID Roxie Chacon 05/29/2025 11:30 AM EDT [facility] Device ID [id number] 05/29/2025 11:30 AM EDT [facility] Specimen Type POC Arterial 05/29/2025 11:30 AM EDT [facility] Blood Arterial blood specimen / Unknown 05/29/2025 11:29 AM EDT 05/29/2025 11:30 AM EDT Jose C Nicholson MD LAB POINT OF CARE TE ST DOCKED DEVICE UNSOLICITED RESULTS Final Result Performing Organization Address City/State/[facility] Co de Phone Number [facility] [address] [place] [address] * XR Chest 1 View (05/29/2025 2:05 [...] Les Steele MD on 05/29/2025 5:20 AM us Jose C Nicholson MD IMG XR PROCEDURES Final Result * (ABNORMAL) Blood gas panel with oximetry, mixed venous (05/29/2025 1:23 AM EDT) pH, Mixed Venous 7.42 7.32 - 7.43 LAB HEMATOLOGY METHOD 05/29/2025 1:33 AM EDT [facility] pCO2, Mixed Venous 45 37 - 52 mmHg LAB HEMATOLOGY METHOD 05/29/2025 1:33 AM EDT [facility] pO2, Mixed Venous 51(H) 25 - 40 mmHg LAB HEMATOLOGY METHOD 05/29/2025 1:33 AM EDT [facility] SO2, Measured, Mixed Venous 87(H) 65 - 80 % LAB HEMATOLOGY METHOD 05/29/2025 1:33 AM EDT [facility] Bicarbonate, Calculated, Mixed Venous 29(H) 22 - 26 mmol/L LAB HEMATOLOGY METHOD 05/29/2025 1:33 AM EDT [facility] Base Excess, Mixed Venous 4.2(H) -2.0 - 3.0 mmol/L LAB HEMATOLOGY METHOD 05/29/2025 1:33 AM EDT [facility] Hematocrit, Whole Blood 29.0(L) 34.0 - 45.0 % LAB HEMATOLOGY METHOD 05/29/2025 1:33 AM EDT [facility] Sodium, Whole Blood 147(H) 136 - 145 mmol/L LAB HEMATOLOGY METHOD 05/29/2025 1:33 AM EDT [facility] Potassium, Whole Blood 3.2(L) 3.6 - 4.9 mmol/L LAB HEMATOLOGY METHOD 05/29/2025 1:33 AM EDT [facility] Chloride, Whole Blood 109(H) 97 - 107 mmol/L LAB HEMATOLOGY METHOD 05/29/2025 1:33 AM EDT [facility] Ionized Calcium, Whole Blood 4.6 4.6 - 5.1 mg/dL LAB HEMATOLOGY METHOD 05/29/2025 1:33 AM EDT [facility] Glucose, Whole Blood 110(H) 74 - 99 mg/dL LAB HEMATOLOGY METHOD 05/29/2025 1:33 AM EDT [facility] Oxyhemoglobin, Mixed Venous, Whole Blood 85.4(H) 40.0 - 70.0 % LAB HEMATOLOGY METHOD 05/29/2025 1:33 AM EDT [facility] Hemoglobin Reduced, Mixed Venous, Whole Blood 12.8 % LAB HEMATOLOGY METHOD 05/29/2025 1:33 AM EDT [facility] Total Hemoglobin, Mixed Venous, Whole Blood 9.5(L) 11.2 - 15.7 g/dL LAB HEMATOLOGY METHOD 05/29/2025 1:33 AM EDT [facility] Blood Mixed venous blood specimen / Unknown Venipuncture / Unknown 05/29/2025 1:23 AM EDT 05/29/2025 1:31 AM EDT us Jose C Nicholson MD LAB BLOOD ORDERABLES Final Resu lt [facility] [address] [place] [address] * (ABNORMAL) Blood gas, arterial (05/29/2025 1:23 AM EDT) pH, Arterial 7.47(H) 7.31 - 7.42 LAB HEMATOLOGY METHOD 05/29/2025 1:33 AM EDT [facility] pCO2, Arterial 40 35 - 48 mmHg LAB HEMATOLOGY METHOD 05/29/2025 1:33 AM EDT [facility] pO2, Arterial 176 >70 mmHg LAB HEMATOLOGY METHOD 05/29/2025 1:33 AM EDT [facility] SO2, Measured, Arterial 100(H) 94 - 98 % LAB HEMATOLOGY METHOD 05/29/2025 1:33 AM EDT [facility] Base Excess, Arterial 5.1(H) -2.0 - 3.0 mmol/L LAB HEMATOLOGY METHOD 05/29/2025 1:33 AM EDT [facility] Bicarbonate, Calculated, Arterial 29(H) 22 - 26 mmol/L LAB HEMATOLOGY METHOD 05/29/2025 1:33 AM EDT [facility] Hematocrit, Whole Blood 30.1(L) 34.0 - 45.0 % LAB HEMATOLOGY METHOD 05/29/2025 1:33 AM EDT [facility] Sodium, Whole Blood 146(H) 136 - 145 mmol/L LAB HEMATOLOGY METHOD 05/29/2025 1:33 AM EDT [facility] Potassium, Whole Blood 3.4(L) 3.6 - 4.9 mmol/L LAB HEMATOLOGY METHOD 05/29/2025 1:33 AM EDT [facility] Chloride, Whole Blood 108(H) 97 - 107 mmol/L LAB HEMATOLOGY METHOD 05/29/2025 1:33 AM EDT [facility] Glucose, Whole Blood 115(H) 74 - 99 mg/dL LAB HEMATOLOGY METHOD 05/29/2025 1:33 AM EDT [facility] Ionized Calcium, Whole Blood 4.7 4.6 - 5.1 mg/dL LAB HEMATOLOGY METHOD 05/29/2025 1:33 AM EDT [facility] Lactate, Arterial, Whole Blood 0.8 0.5 - 1.6 mmol/L LAB HEMATOLOGY METHOD 05/29/2025 1:33 AM EDT [facility] Blood Arterial blood specimen / Unknown Arterial Puncture / Unknown 05/29/2025 1:23 AM EDT 05/29/2025 1:32 AM EDT [facility] BLOOD ORDERABLES Final Result [facility] [address] [place] [address] * Triglycerides (05/29/2025 1:23 AM EDT) Triglycerides, Plasma 109 <150 mg/dL 05/29/2025 2:22 AM EDT [facility] Comment: Triglyceride Reference Range (age >17 years): Desirable: <150 mg/dL Borderline high: 150 to 199 mg/dL High: 200 to 499 mg/dL Very high: >499 mg/dL Increased risk of pancreatitis: >1000 mg/dL Fasting greater than or equal to 12 hours? Yes 05/29/2025 2:22 AM EDT [facility] Blood Venous blood specimen / Unknown Venipuncture / Unknown 05/29/2025 1:23 AM EDT 05/29/2025 1:29 AM EDT [facility] Final Result [facility] [address] [place] [address] * (ABNORMAL) CBC (05/29/2025 1:23 AM EDT) WBC Count 11.40(H) 3.70 - 10.30 10*3/uL LAB HEMATOLOGY METHOD 05/29/2025 1:53 AM EDT [facility] RBC Count 3.54(L) 3.90 - 5.20 10*6/uL LAB HEMATOLOGY METHOD 05/29/2025 1:53 AM EDT [facility] HGB 10.1(L) 11.2 - 15.7 g/dL LAB HEMATOLOGY METHOD 05/29/2025 1:53 AM EDT [facility] HCT 29.6(L) 34.0 - 45.0 % LAB HEMATOLOGY METHOD 05/29/2025 1:53 AM EDT [facility] Platelet Count 87(L) 155 - 369 10*3/uL LAB HEMATOLOGY METHOD 05/29/2025 1:53 AM EDT [facility] MCV 84 79 - 98 fL LAB HEMATOLOGY METHOD 05/29/2025 1:53 AM EDT [facility] MCH 28.5 26.0 - 32.0 pg LAB HEMATOLOGY METHOD 05/29/2025 1:53 AM EDT [facility] MCHC 34.1 30.7 - 35.5 g/dL LAB HEMATOLOGY METHOD 05/29/2025 1:53 AM EDT [facility] RDW 15.9(H) 11.5 - 14.5 % LAB HEMATOLOGY METHOD 05/29/2025 1:53 AM EDT [facility] MPV 12.1 8.8 - 12.5 fL LAB HEMATOLOGY METHOD 05/29/2025 1:53 AM EDT [facility] nRBC 0.2(H) <=0.0 per 100 WBCs LAB HEMATOLOGY METHOD 05/29/2025 1:53 AM EDT [facility] Blood Venous blood specimen / Unknown Venipuncture / Unknown 05/29/2025 1:23 AM EDT 05/29/2025 1:29 AM EDT us Rosalba Andre SILVER RECOVERY OPERATOR LAB BLOOD ORDERABLES Barbara l Result [facility] [address] [place] [address] * (ABNORMAL) Basic metabolic panel (05/29/2025 1:23 AM EDT) Glucose, Plasma 116(H) 74 - 99 mg/dL 05/29/2025 2:22 AM EDT [facility] BUN, Plasma 27(H) 8 - 23 mg/dL 05/29/2025 2:22 AM EDT [facility] Creatinine, Plasma 0.80 0.60 - 1.10 mg/dL 05/29/2025 2:22 AM EDT [facility] BUN/Creatinine Ratio 34 05/29/2025 2:22 AM EDT [facility] Sodium, Plasma 147(H) 136 - 145 mmol/L 05/29/2025 2:22 AM EDT [facility] Potassium, Plasma 3.7 3.6 - 4.9 mmol/L 05/29/2025 2:22 AM EDT [facility] Chloride, Plasma 110(H) 97 - 107 mmol/L 05/29/2025 2:22 AM EDT [facility] CO2, Plasma 26 22 - 29 mmol/L 05/29/2025 2:22 AM EDT [facility] Anion Gap 11 6 - 16 mmol/L 05/29/2025 2:22 AM EDT [facility] Total Calcium, Plasma 8.8(L) 8.9 - 10.2 mg/dL 05/29/2025 2:22 AM EDT [facility] eGFRcr 78.9 mL/min/1.7 3m*2 05/29/2025 2:22 AM EDT [facility] Comment:Reported eGFRcr in m L/min/1.73m2 is based the CKD-EPI 2020 equation that does not use a race coefficient. Blood Venous blood specimen / Unknown Venipuncture / Unknown 05/29/2025 1:23 AM EDT 05/29/2025 1:29 AM EDT Rosalba Andre SILVER RECOVERY OPERATOR LAB BLOOD ORDERABLES Barbara l Result Performing Organization Address City/[facility]/ZIP Co de Phone Number [facility] [address] [place] [address] * (ABNORMAL) Magnesium (05/29/2025 1:23 AM EDT) Magnesium, Plasma 2.6(H) 1.9 - 2.4 mg/dL 05/29/2025 2:22 AM EDT [facility] Blood Venous blood specimen / Unknown Venipuncture / Unknown 05/29/2025 1:23 AM EDT 05/29/2025 1:29 AM EDT us Yvrose Campbell APRN LAB BLOOD ORDERABLES Final Result Performing Organization Address [facility] Co de Phone Number [facility] [address] [place] [address] * [facility], E/M 30-74 MINUTES (05/29/2025 12:40 [...] nursing services were present on rounds. us ANA MARIA Young APRN, DNP IN CLINIC/BEDSIDE ORDERABLES Final Result * (ABNORMAL) Hemoglobin and Hematocrit, Blood (05/28/2025 5:07 PM EDT) Pathologist [facility] HGB 10.0(L) 11.2 - 15.7 g/dL LAB HEMATOLOGY METHOD 05/28/2025 5:33 PM EDT [facility] HCT 29.1(L) 34.0 - 45.0 % LAB HEMATOLOGY METHOD 05/28/2025 5:33 PM EDT [facility] Blood Arterial blood specimen / Unknown Arterial Puncture / Unknown 05/28/2025 5:07 PM EDT 05/28/2025 5:23 PM EDT Yvrose Campbell APRN LAB BLOOD ORDERABLES Final Result [facility] [address] [place] [address] * (ABNORMAL) Blood gas panel, arterial (05/28/2025 5:06 PM EDT) Pathologist [facility] pH, Arterial 7.41 7.31 - 7.42 LAB HEMATOLOGY METHOD 05/28/2025 5:21 PM EDT [facility] pCO2, Arterial 47 35 - 48 mmHg LAB HEMATOLOGY METHOD 05/28/2025 5:21 PM EDT [facility] pO2, Arterial 119 >70 mmHg LAB HEMATOLOGY METHOD 05/28/2025 5:21 PM EDT [facility] SO2, Measured, Arterial 98 94 - 98 % LAB HEMATOLOGY METHOD 05/28/2025 5:21 PM EDT [facility] Base Excess, Arterial 4.6(H) -2.0 - 3.0 mmol/L LAB HEMATOLOGY METHOD 05/28/2025 5:21 PM EDT [facility] [facility] Bicarbonate, Calculated, Arterial 30(H) 22 - 26 mmol/L LAB HEMATOLOGY METHOD 05/28/2025 5:21 PM EDT [facility] Hematocrit, Whole Blood 31.5(L) 34.0 - 45.0 % LAB HEMATOLOGY METHOD 05/28/2025 5:21 PM EDT [facility] Sodium, Whole Blood 148(H) 136 - 145 mmol/L LAB HEMATOLOGY METHOD 05/28/2025 5:21 PM EDT [facility] Potassium, Whole Blood 4.0 3.6 - 4.9 mmol/L LAB HEMATOLOGY METHOD 05/28/2025 5:21 PM EDT [facility] Chloride, Whole Blood 107 97 - 107 mmol/L LAB HEMATOLOGY METHOD 05/28/2025 5:21 PM EDT [facility] Glucose, Whole Blood 124(H) 74 - 99 mg/dL LAB HEMATOLOGY METHOD 05/28/2025 5:21 PM EDT [facility] Ionized Calcium, Whole Blood 4.7 4.6 - 5.1 mg/dL LAB HEMATOLOGY METHOD 05/28/2025 5:21 PM EDT [facility] Lactate, Arterial, Whole Blood 1.3 0.5 - 1.6 mmol/L LAB HEMATOLOGY METHOD 05/28/2025 5:21 PM EDT [facility] Blood Arterial blood specimen / Unknown Arterial Puncture / Unknown 05/28/2025 5:06 PM EDT 05/28/2025 5:18 PM EDT Jose C Nicholson MD LAB BLOOD ORDERABLES Final Resu lt [facility] [address] [place] [address] * Transfuse RBC (05/28/2025 4:32 PM EDT) Result [facility] Yvrose Campbell APRN BLOOD TRANSFUSION ORDERABL ES Final Result * Transfuse RBC: 1 Units (05/28/2025 4:32 PM EDT) Yvrose Campbell APRN BLOOD TRANSFUSION ORDERABL ES Final Result * Prepare Leukocyte Reduced RBC: 1 Units (05/28/2025 1:38 PM EDT) Product Code [id number] CH BLOO D BANK Dispense Status Transfused BLOOD BANK Blood Expiration Date [id number] BLOOD BANK Unit Number [id number] B LOOD BANK Product Blood Type 6200 BLOOD BANK Blood Type A+ BLOOD BANK Crossmatch Compatible BLOOD BANK Other Yvrose Campbell APRN BLOOD BANK PRODUCT ORDERAB LES Final Result Performing Organization Address City/[facility]/ZIP Co de Phone Number BLOOD BANK [address] [place] [address], * [facility], E/M 30-74 MINUTES, [facility], ADDL 30 MIN (05/28/2025 12:40 [...] - 2.4 mg/dL 05/28/2025 1:53 PM EDT [facility] Blood Arterial blood specimen / Unknown Arterial Puncture / Unknown 05/28/2025 12:22 PM EDT 05/28/2025 12:39 PM EDT Jose C Nicholson MD LAB BLOOD ORDERABLES Final Resu lt [facility] [address] [place] [address] * (ABNORMAL) CBC W/O Differential (05/28/2025 12:22 PM EDT) WBC Count 9.98 3.70 - 10.30 10*3/uL LAB HEMATOLOGY METHOD 05/28/2025 1:10 PM EDT [facility] RBC Count 3.01(L) 3.90 - 5.20 10*6/uL LAB HEMATOLOGY METHOD 05/28/2025 1:10 PM EDT [facility] HGB 8.7(L) 11.2 - 15.7 g/dL LAB HEMATOLOGY METHOD 05/28/2025 1:10 PM EDT [facility] HCT 25.6(L) 34.0 - 45.0 % LAB HEMATOLOGY METHOD 05/28/2025 1:10 PM EDT [facility] Platelet Count 108(L) 155 - 369 10*3/uL LAB HEMATOLOGY METHOD 05/28/2025 1:10 PM EDT [facility] MCV 85 79 - 98 fL LAB HEMATOLOGY METHOD 05/28/2025 1:10 PM EDT [facility] MCH 28.9 26.0 - 32.0 pg LAB HEMATOLOGY METHOD 05/28/2025 1:10 PM EDT [facility] MCHC 34.0 30.7 - 35.5 g/dL LAB HEMATOLOGY METHOD 05/28/2025 1:10 PM EDT [facility] RDW 16.1(H) 11.5 - 14.5 % LAB HEMATOLOGY METHOD 05/28/2025 1:10 PM EDT [facility] MPV 12.1 8.8 - 12.5 fL LAB HEMATOLOGY METHOD 05/28/2025 1:10 PM EDT [facility] nRBC 0.0 <=0.0 per 100 WBCs LAB HEMATOLOGY METHOD 05/28/2025 1:10 PM EDT [facility] Blood Arterial blood specimen / Unknown Arterial Puncture / Unknown 05/28/2025 12:22 PM EDT 05/28/2025 12:50 PM EDT us Jose C Nicholson MD LAB BLOOD ORDERABLES Final Resu lt [facility] [address] [place] [address] * (ABNORMAL) Renal Function Panel, Plasma (05/28/2025 12:22 PM EDT) Glucose, Plasma 132(H) 74 - 99 mg/dL 05/28/2025 1:17 PM EDT [facility] BUN, Plasma 26(H) 8 - 23 mg/dL 05/28/2025 1:17 PM EDT [facility] Creatinine, Plasma 0.88 0.60 - 1.10 mg/dL 05/28/2025 1:17 PM EDT [facility] BUN/Creatinine Ratio 30 05/28/2025 1:17 PM EDT [facility] Sodium, Plasma 147(H) 136 - 145 mmol/L 05/28/2025 1:17 PM EDT [facility] Potassium, Plasma 3.7 3.6 - 4.9 mmol/L 05/28/2025 1:17 PM EDT [facility] Chloride, Plasma 107 97 - 107 mmol/L 05/28/2025 1:17 PM EDT [facility] CO2, Plasma 24 22 - 29 mmol/L 05/28/2025 1:17 PM EDT [facility] Anion Gap 16 6 - 16 mmol/L 05/28/2025 1:17 PM EDT [facility] Total Calcium, Plasma 10.2 8.9 - 10.2 mg/dL 05/28/2025 1:17 PM EDT [facility] Phosphorus, Plasma 4.7(H) 2.5 - 4.5 mg/dL 05/28/2025 1:17 PM EDT [facility] Albumin, Plasma 3.5 3.5 - 5.2 g/dL 05/28/2025 1:17 PM EDT [facility] eGFRcr 70.4 mL/min/1.7 3m*2 05/28/2025 1:17 PM EDT [facility] Comment:Reported eGFRcr in m L/min/1.73m2 is based the CKD-EPI 2020 equation that does not use a race coefficient. Blood Arterial blood specimen / Unknown Arterial Puncture / Unknown 05/28/2025 12:22 PM EDT 05/28/2025 12:39 PM EDT us Yvrose Campbell [facility] BLOOD ORDERABLES Final Result [facility] [address] [place] [address] * (ABNORMAL) POCT arterial blood gas gem (05/28/2025 12:07 PM EDT) pH, Arterial 7.38 7.31 - 7.42 05/28/2025 12:09 PM EDT [facility] pCO2, Arterial 43 35 - 48 mm Hg 05/28/2025 12:09 PM EDT [facility] pO2, Arterial 89 >70 mm Hg 05/28/2025 12:09 PM EDT [facility] SO2, Arterial 98 94 - 98 % 05/28/2025 12:09 PM EDT [facility] FIO2 50.0 % 05/28/2025 12:09 PM EDT [facility] Base Excess, Arterial 0.2 -2 - 3 mmol/L 05/28/2025 12:09 PM EDT [facility] HCO3, Arterial 25.4 22 - 26 mmol/L 05/28/2025 12:09 PM EDT [facility] Total Hemoglobin, Arterial, Whole Blood 8.3(L) 11.2 - 15.7 g/dL 05/28/2025 12:09 PM EDT [facility] Hematocrit, Arterial 25.0(L) 34.0 - 45.0 % 05/28/2025 12:09 PM EDT [facility] Sodium, Arterial 145 136 - 145 mmol/L 05/28/2025 12:09 PM EDT [facility] Potassium, Arterial 3.9 3.6 - 4.9 mmol/L 05/28/2025 12:09 PM EDT [facility] Chloride, Whole Blood 107 97 - 107 mmol/L 05/28/2025 12:09 PM EDT [facility] Glucose, Arterial 136(H) 74 - 99 mg/dL 05/28/2025 12:09 PM EDT [facility] Ionized Calcium, Arterial 4.6 4.6 - 5.1 mg/dL 05/28/2025 12:09 PM EDT [facility] Lactate, Arterial 3.3(H) 0.5 - 1.6 mmol/L 05/28/2025 12:09 PM EDT [facility] Body Temperature 37.0 Celsius 05/28/2025 12:09 PM EDT [facility] pH, Temp Corrected, Arterial 7.38 7.31 - 7.42 05/28/2025 12:09 PM EDT [facility] pCO2, Temp Corrected, Arterial 43 35 - 48 mm Hg 05/28/2025 12:09 PM EDT [facility] pO2, Temp Corrected, Arterial 89 >70 mm Hg 05/28/2025 12:09 PM EDT [facility] Security Assistant ID Kelly Zamora 05/28/2025 12:09 PM EDT [facility] Blood, Arterial Whole blood specimen / Unknown 05/28/2025 12:07 PM EDT 05/28/2025 12:09 PM EDT us Jose C Nicholson MD LAB POINT OF CARE TE ST DOCKED DEVICE UNSOLICITED RESULTS Final Result [facility] [address] [place] [address] * (ABNORMAL) Blood gas panel, arterial (05/28/2025 7:54 AM EDT) pH, Arterial 7.38 7.31 - 7.42 LAB HEMATOLOGY METHOD 05/28/2025 8:13 AM EDT [facility] pCO2, Arterial 48 35 - 48 mmHg LAB HEMATOLOGY METHOD 05/28/2025 8:13 AM EDT [facility] pO2, Arterial 126 >70 mmHg LAB HEMATOLOGY METHOD 05/28/2025 8:13 AM EDT [facility] SO2, Measured, Arterial 98 94 - 98 % LAB HEMATOLOGY METHOD 05/28/2025 8:13 AM EDT [facility] Base Excess, Arterial 2.6 -2.0 - 3.0 mmol/L LAB HEMATOLOGY METHOD 05/28/2025 8:13 AM EDT [facility] Bicarbonate, Calculated, Arterial 28(H) 22 - 26 mmol/L LAB HEMATOLOGY METHOD 05/28/2025 8:13 AM EDT [facility] Hematocrit, Whole Blood 30.4(L) 34.0 - 45.0 % LAB HEMATOLOGY METHOD 05/28/2025 8:13 AM EDT [facility] Sodium, Whole Blood 145 136 - 145 mmol/L LAB HEMATOLOGY METHOD 05/28/2025 8:13 AM EDT [facility] Potassium, Whole Blood 3.7 3.6 - 4.9 mmol/L LAB HEMATOLOGY METHOD 05/28/2025 8:13 AM EDT [facility] Chloride, Whole Blood 107 97 - 107 mmol/L LAB HEMATOLOGY METHOD 05/28/2025 8:13 AM EDT [facility] Glucose, Whole Blood 136(H) 74 - 99 mg/dL LAB HEMATOLOGY METHOD 05/28/2025 8:13 AM EDT [facility] Ionized Calcium, Whole Blood 4.5(L) 4.6 - 5.1 mg/dL LAB HEMATOLOGY METHOD 05/28/2025 8:13 AM EDT [facility] Lactate, Arterial, Whole Blood 1.7(H) 0.5 - 1.6 mmol/L LAB HEMATOLOGY METHOD 05/28/2025 8:13 AM EDT [facility] Blood Arterial blood specimen / Unknown Arterial Puncture / Unknown 05/28/2025 7:54 AM EDT 05/28/2025 8:12 AM EDT us Yvrose Campbell APRN LAB BLOOD ORDERABLES Final Result Performing Organization Address City/[facility]/ZIP Co de Phone Number [facility] [address] [place] [address] * Potassium, Plasma (05/28/2025 6:01 AM EDT) Potassium, Plasma 3.8 3.6 - 4.9 mmol/L 05/28/2025 6:34 AM EDT [facility] Comment:Hemolyzed, result ma y be falsely increased. Blood Arterial blood specimen / Unknown Arterial Puncture / Unknown 05/28/2025 6:01 AM EDT 05/28/2025 6:10 AM EDT us Jose C Nicholson MD LAB BLOOD ORDERABLES Final Resu lt [facility] [address] [place] [address] * (ABNORMAL) Hematocrit (05/28/2025 6:01 AM EDT) HCT 29.0(L) 34.0 - 45.0 % LAB HEMATOLOGY METHOD 05/28/2025 6:20 AM EDT [facility] Blood Arterial blood specimen / Unknown Arterial Puncture / Unknown 05/28/2025 6:01 AM EDT 05/28/2025 6:11 AM EDT us Jose C Nicholson MD LAB BLOOD ORDERABLES Final Resu lt [facility] [address] [place] [address] * (ABNORMAL) Hemoglobin (05/28/2025 6:01 AM EDT) HGB 10.1(L) 11.2 - 15.7 g/dL LAB HEMATOLOGY METHOD 05/28/2025 6:20 AM EDT [facility] Blood Arterial blood specimen / Unknown Arterial Puncture / Unknown 05/28/2025 6:01 AM EDT 05/28/2025 6:11 AM EDT us Jose C Nicholson MD LAB BLOOD ORDERABLES Final Resu lt [facility] [address] [place] [address] * (ABNORMAL) Blood gas, arterial (05/28/2025 5:58 AM EDT) pH, Arterial 7.38 7.31 - 7.42 LAB HEMATOLOGY METHOD 05/28/2025 6:08 AM EDT [facility] pCO2, Arterial 49(H) 35 - 48 mmHg LAB HEMATOLOGY METHOD 05/28/2025 6:08 AM EDT [facility] pO2, Arterial 160 >70 mmHg LAB HEMATOLOGY METHOD 05/28/2025 6:08 AM EDT [facility] SO2, Measured, Arterial 98 94 - 98 % LAB HEMATOLOGY METHOD 05/28/2025 6:08 AM EDT [facility] Base Excess, Arterial 2.7 -2.0 - 3.0 mmol/L LAB HEMATOLOGY METHOD 05/28/2025 6:08 AM EDT [facility] Bicarbonate, Calculated, Arterial 29(H) 22 - 26 mmol/L LAB HEMATOLOGY METHOD 05/28/2025 6:08 AM EDT [facility] Hematocrit, Whole Blood 30.8(L) 34.0 - 45.0 % LAB HEMATOLOGY METHOD 05/28/2025 6:08 AM EDT [facility] Sodium, Whole Blood 146(H) 136 - 145 mmol/L LAB HEMATOLOGY METHOD 05/28/2025 6:08 AM EDT [facility] Potassium, Whole Blood 3.6 3.6 - 4.9 mmol/L LAB HEMATOLOGY METHOD 05/28/2025 6:08 AM EDT [facility] Chloride, Whole Blood 106 97 - 107 mmol/L LAB HEMATOLOGY METHOD 05/28/2025 6:08 AM EDT [facility] Glucose, Whole Blood 141(H) 74 - 99 mg/dL LAB HEMATOLOGY METHOD 05/28/2025 6:08 AM EDT [facility] Ionized Calcium, Whole Blood 4.6 4.6 - 5.1 mg/dL LAB HEMATOLOGY METHOD 05/28/2025 6:08 AM EDT [facility] Lactate, Arterial, Whole Blood 1.5 0.5 - 1.6 mmol/L LAB HEMATOLOGY METHOD 05/28/2025 6:08 AM EDT [facility] Blood Arterial blood specimen / Unknown Arterial Puncture / Unknown 05/28/2025 5:58 AM EDT 05/28/2025 6:06 AM EDT us Rosalba Andre APRN LAB BLOOD ORDERABLES Barbara l Result [facility] [address] [place] [address] * Phosphorus (05/28/2025 5:13 AM EDT) Phosphorus, Plasma 4.1 2.5 - 4.5 mg/dL 05/28/2025 5:54 AM EDT [facility] Blood Arterial blood specimen / Unknown Arterial Puncture / Unknown 05/28/2025 5:13 AM EDT 05/28/2025 5:25 AM EDT Rosalba Andre [employer]ILVER RECOVERY OPERATOR LAB BLOOD ORDERABLES Barbara l Result Performing Organization Address City/[facility] Co de Phone Number [facility] [address] [place] [address] * (ABNORMAL) Magnesium, Plasma (05/28/2025 5:13 AM EDT) Magnesium, Plasma 3.1(H) 1.9 - 2.4 mg/dL 05/28/2025 5:54 AM EDT [facility] Blood Arterial blood specimen / Unknown Arterial Puncture / Unknown 05/28/2025 5:13 AM EDT 05/28/2025 5:25 AM EDT [facility] SILVER RECOVERY OPERATOR LAB BLOOD ORDERABLES Barbara l Result Performing Organization Address [facility] de Phone Number [facility] [address] [place] [address] * ECG Adult - POD 1 (05/28/2025 4:24 AM EDT) EKG DIAGNOSIS CLASS Normal MUSE ECG Ventricular Rate 67 BPM MUSE ECG Atrial Rate 67 BPM MUSE ECG NC Interval 180 ms MUSE ECG QRSD Interval 82 ms MUSE ECG QT Interval 458 ms MUSE ECG QTC Interval 483 ms MUSE ECG P [place] 61 degrees MUSE ECG R [place] 37 degrees MUSE ECG T Wave [place] 10 degrees MUSE ECG Diagnosis Normal sinus rhythm MUSE ECG Diagnosis MUSE ECG Diagnosis MUSE ECG Diagnosis Confirmed by Tracy Vanegas ([id number]) on 05/28/2025 11:13:46 PM MUSE ECG 05/28/2025 4:24 AM EDT 05/28/2025 11:13 PM EDT Jose C Nicholson MD ECG ORDERABLES Final Result Performing Organization Address City/[facility] Co de Phone Number MUSE ECG * (ABNORMAL) Blood gas, arterial (05/28/2025 4:08 AM EDT) pH, Arterial 7.38 7.31 - 7.42 LAB HEMATOLOGY METHOD 05/28/2025 4:25 AM EDT [facility] pCO2, Arterial 49(H) 35 - 48 mmHg LAB HEMATOLOGY METHOD 05/28/2025 4:25 AM EDT [facility] pO2, Arterial 185 >70 mmHg LAB HEMATOLOGY METHOD 05/28/2025 4:25 AM EDT [facility] SO2, Measured, Arterial 100(H) 94 - 98 % LAB HEMATOLOGY METHOD 05/28/2025 4:25 AM EDT [facility] Base Excess, Arterial 3.1(H) -2.0 - 3.0 mmol/L LAB HEMATOLOGY METHOD 05/28/2025 4:25 AM EDT [facility] Bicarbonate, Calculated, Arterial 29(H) 22 - 26 mmol/L LAB HEMATOLOGY METHOD 05/28/2025 4:25 AM EDT [facility] Hematocrit, Whole Blood 30.7(L) 34.0 - 45.0 % LAB HEMATOLOGY METHOD 05/28/2025 4:25 AM EDT [facility] Sodium, Whole Blood 146(H) 136 - 145 mmol/L LAB HEMATOLOGY METHOD 05/28/2025 4:25 AM EDT [facility] Potassium, Whole Blood 3.2(L) 3.6 - 4.9 mmol/L LAB HEMATOLOGY METHOD 05/28/2025 4:25 AM EDT [facility] Chloride, Whole Blood 106 97 - 107 mmol/L LAB HEMATOLOGY METHOD 05/28/2025 4:25 AM EDT [facility] Glucose, Whole Blood 147(H) 74 - 99 mg/dL LAB HEMATOLOGY METHOD 05/28/2025 4:25 AM EDT [facility] Ionized Calcium, Whole Blood 4.6 4.6 - 5.1 mg/dL LAB HEMATOLOGY METHOD 05/28/2025 4:25 AM EDT [facility] Lactate, Arterial, Whole Blood 1.1 0.5 - 1.6 mmol/L LAB HEMATOLOGY METHOD 05/28/2025 4:25 AM EDT [facility] Blood Arterial blood specimen / Unknown Arterial Puncture / Unknown 05/28/2025 4:08 AM EDT 05/28/2025 4:24 AM EDT us Rosalba Guillermoari SILVER RECOVERY OPERATOR LAB BLOOD ORDERABLES Barbara l Result [facility] [address] [place] [address] * (ABNORMAL) Blood gas panel with oximetry, mixed venous (05/28/2025 4:06 AM EDT) pH, Mixed Venous 7.36 7.32 - 7.43 LAB HEMATOLOGY METHOD 05/28/2025 4:25 AM EDT [facility] pCO2, Mixed Venous 49 37 - 52 mmHg LAB HEMATOLOGY METHOD 05/28/2025 4:25 AM EDT [facility] pO2, Mixed Venous 41(H) 25 - 40 mmHg LAB HEMATOLOGY METHOD 05/28/2025 4:25 AM EDT [facility] SO2, Measured, Mixed Venous 75 65 - 80 % LAB HEMATOLOGY METHOD 05/28/2025 4:25 AM EDT [facility] Bicarbonate, Calculated, Mixed Venous 27(H) 22 - 26 mmol/L LAB HEMATOLOGY METHOD 05/28/2025 4:25 AM EDT [facility] Base Excess, Mixed Venous 1.3 -2.0 - 3.0 mmol/L LAB HEMATOLOGY METHOD 05/28/2025 4:25 AM EDT [facility] Hematocrit, Whole Blood 28.1(L) 34.0 - 45.0 % LAB HEMATOLOGY METHOD 05/28/2025 4:25 AM EDT [facility] Sodium, Whole Blood 146(H) 136 - 145 mmol/L LAB HEMATOLOGY METHOD 05/28/2025 4:25 AM EDT [facility] Potassium, Whole Blood 2.9(L) 3.6 - 4.9 mmol/L LAB HEMATOLOGY METHOD 05/28/2025 4:25 AM EDT [facility] Chloride, Whole Blood 109(H) 97 - 107 mmol/L LAB HEMATOLOGY METHOD 05/28/2025 4:25 AM EDT [facility] Ionized Calcium, Whole Blood 4.3(L) 4.6 - 5.1 mg/dL LAB HEMATOLOGY METHOD 05/28/2025 4:25 AM EDT [facility] Glucose, Whole Blood 135(H) 74 - 99 mg/dL LAB HEMATOLOGY METHOD 05/28/2025 4:25 AM EDT [facility] Oxyhemoglobin, Mixed Venous, Whole Blood 73.0(H) 40.0 - 70.0 % LAB HEMATOLOGY METHOD 05/28/2025 4:25 AM EDT [facility] Hemoglobin Reduced, Mixed Venous, Whole Blood 24.4 % LAB HEMATOLOGY METHOD 05/28/2025 4:25 AM EDT [facility] Total Hemoglobin, Mixed Venous, Whole Blood 9.2(L) 11.2 - 15.7 g/dL LAB HEMATOLOGY METHOD 05/28/2025 4:25 AM EDT [facility] Blood Mixed venous blood specimen / Unknown Venipuncture / Unknown 05/28/2025 4:06 AM EDT 05/28/2025 4:23 AM EDT us Jose C Nicholson MD LAB BLOOD ORDERABLES Final Resu lt [facility] [address] [place] [address] * XR Chest 1 View (05/28/2025 3:27 [...] POCT glucose meter (05/28/2025 2:16 AM EDT) POCT Glucose 171(H) 74 - 99 mg/dL [...] Comment 05/28/2025 2:17 AM EDT [facility] Security Assistant ID Vanessa Copelandswi 05/28/2025 2:17 AM EDT [facility] Device ID [id number] 05/28/2025 2:17 AM EDT [facility] Specimen Type POC Arterial 05/28/2025 2:17 AM EDT [facility] Blood Arterial blood specimen / Unknown 05/28/2025 2:16 AM EDT 05/28/2025 2:17 AM EDT us Jose C Nicholson MD LAB POINT OF CARE TE ST DOCKED DEVICE UNSOLICITED RESULTS Final Result [facility] [address] [place] [address] * (ABNORMAL) Blood gas, arterial (05/28/2025 2:09 AM EDT) pH, Arterial 7.38 7.31 - 7.42 LAB HEMATOLOGY METHOD 05/28/2025 2:24 AM EDT [facility] pCO2, Arterial 48 35 - 48 mmHg LAB HEMATOLOGY METHOD 05/28/2025 2:24 AM EDT [facility] pO2, Arterial 120 >70 mmHg LAB HEMATOLOGY METHOD 05/28/2025 2:24 AM EDT [facility] SO2, Measured, Arterial 99(H) 94 - 98 % LAB HEMATOLOGY METHOD 05/28/2025 2:24 AM EDT [facility] Base Excess, Arterial 2.2 -2.0 - 3.0 mmol/L LAB HEMATOLOGY METHOD 05/28/2025 2:24 AM EDT [facility] Bicarbonate, Calculated, Arterial 28(H) 22 - 26 mmol/L LAB HEMATOLOGY METHOD 05/28/2025 2:24 AM EDT [facility] Hematocrit, Whole Blood 32.5(L) 34.0 - 45.0 % LAB HEMATOLOGY METHOD 05/28/2025 2:24 AM EDT [facility] Sodium, Whole Blood 145 136 - 145 mmol/L LAB HEMATOLOGY METHOD 05/28/2025 2:24 AM EDT [facility] Potassium, Whole Blood 3.4(L) 3.6 - 4.9 mmol/L LAB HEMATOLOGY METHOD 05/28/2025 2:24 AM EDT [facility] Chloride, Whole Blood 106 97 - 107 mmol/L LAB HEMATOLOGY METHOD 05/28/2025 2:24 AM EDT [facility] Glucose, Whole Blood 167(H) 74 - 99 mg/dL LAB HEMATOLOGY METHOD 05/28/2025 2:24 AM EDT [facility] Ionized Calcium, Whole Blood 4.6 4.6 - 5.1 mg/dL LAB HEMATOLOGY METHOD 05/28/2025 2:24 AM EDT [facility] Lactate, Arterial, Whole Blood 1.8(H) 0.5 - 1.6 mmol/L LAB HEMATOLOGY METHOD 05/28/2025 2:24 AM EDT [facility] Blood Arterial blood specimen / Unknown Arterial Puncture / Unknown 05/28/2025 2:09 AM EDT 05/28/2025 2:22 AM EDT us Rosalba Andre APRN LAB BLOOD ORDERABLES Barbaar wynn Result [facility] [address] [place] [address] * (ABNORMAL) Basic metabolic panel (05/28/2025 2:09 AM EDT) Pathologist [facility] Glucose, Plasma 168(H) 74 - 99 mg/dL 05/28/2025 2:53 AM EDT [facility] BUN, Plasma 21 8 - 23 mg/dL 05/28/2025 2:53 AM EDT [facility] Creatinine, Plasma 0.72 0.60 - 1.10 mg/dL 05/28/2025 2:53 AM EDT [facility] BUN/Creatinine Ratio 29 05/28/2025 2:53 AM EDT [facility] Sodium, Plasma 144 136 - 145 mmol/L 05/28/2025 2:53 AM EDT [facility] Potassium, Plasma 3.6 3.6 - 4.9 mmol/L 05/28/2025 2:53 AM EDT [facility] Comment:Hemolyzed, result ma y be falsely increased. Chloride, Plasma 105 97 - 107 mmol/L 05/28/2025 2:53 AM EDT [facility] CO2, Plasma 24 22 - 29 mmol/L 05/28/2025 2:53 AM EDT [facility] Anion Gap 15 6 - 16 mmol/L 05/28/2025 2:53 AM EDT [facility] Total Calcium, Plasma 8.5(L) 8.9 - 10.2 mg/dL 05/28/2025 2:53 AM EDT [facility] eGFRcr 89.5 mL/min/1.7 3m*2 05/28/2025 2:53 AM EDT [facility] Comment:Reported eGFRcr in m L/min/1.73m2 is based the CKD-EPI 2020 equation that does not use a race coefficient. Blood Arterial blood specimen / Unknown Arterial Puncture / Unknown 05/28/2025 2:09 AM EDT 05/28/2025 2:22 AM EDT us Jose C Nicholson MD LAB BLOOD ORDERABLES Final Resu lt [facility] [address] [place] [address] * (ABNORMAL) CBC (05/28/2025 2:09 AM EDT) WBC Count 13.88(H) 3.70 - 10.30 10*3/uL LAB HEMATOLOGY METHOD 05/28/2025 2:34 AM EDT [facility] RBC Count 3.57(L) 3.90 - 5.20 10*6/uL LAB HEMATOLOGY METHOD 05/28/2025 2:34 AM EDT [facility] HGB 10.6(L) 11.2 - 15.7 g/dL LAB HEMATOLOGY METHOD 05/28/2025 2:34 AM EDT [facility] HCT 29.7(L) 34.0 - 45.0 % LAB HEMATOLOGY METHOD 05/28/2025 2:34 AM EDT [facility] Platelet Count 172 155 - 369 10*3/uL LAB HEMATOLOGY METHOD 05/28/2025 2:34 AM EDT [facility] MCV 83 79 - 98 fL LAB HEMATOLOGY METHOD 05/28/2025 2:34 AM EDT [facility] MCH 29.7 26.0 - 32.0 pg LAB HEMATOLOGY METHOD 05/28/2025 2:34 AM EDT [facility] MCHC 35.7(H) 30.7 - 35.5 g/dL LAB HEMATOLOGY METHOD 05/28/2025 2:34 AM EDT [facility] RDW 15.6(H) 11.5 - 14.5 % LAB HEMATOLOGY METHOD 05/28/2025 2:34 AM EDT [facility] MPV 10.8 8.8 - 12.5 fL LAB HEMATOLOGY METHOD 05/28/2025 2:34 AM EDT [facility] nRBC 0.0 <=0.0 per 100 WBCs LAB HEMATOLOGY METHOD 05/28/2025 2:34 AM EDT [facility] Blood Arterial blood specimen / Unknown Arterial Puncture / Unknown 05/28/2025 2:09 AM EDT 05/28/2025 2:23 AM EDT us Jose C Nicholson MD LAB BLOOD ORDERABLES Final Resu lt [facility] [address] [place] [address] * (ABNORMAL) Blood gas, arterial (05/28/2025 12:14 AM EDT) [facility] pH, Arterial 7.39 7.31 - 7.42 LAB HEMATOLOGY METHOD 05/28/2025 12:38 AM EDT [facility] pCO2, Arterial 45 35 - 48 mmHg LAB HEMATOLOGY METHOD 05/28/2025 12:38 AM EDT [facility] pO2, Arterial 72 >70 mmHg LAB HEMATOLOGY METHOD 05/28/2025 12:38 AM EDT [facility] SO2, Measured, Arterial 95 94 - 98 % LAB HEMATOLOGY METHOD 05/28/2025 12:38 AM EDT [facility] Base Excess, Arterial 1.8 -2.0 - 3.0 mmol/L LAB HEMATOLOGY METHOD 05/28/2025 12:38 AM EDT [facility] Bicarbonate, Calculated, Arterial 27(H) 22 - 26 mmol/L LAB HEMATOLOGY METHOD 05/28/2025 12:38 AM EDT [facility] Hematocrit, Whole Blood 32.7(L) 34.0 - 45.0 % LAB HEMATOLOGY METHOD 05/28/2025 12:38 AM EDT [facility] Sodium, Whole Blood 144 136 - 145 mmol/L LAB HEMATOLOGY METHOD 05/28/2025 12:38 AM EDT [facility] Potassium, Whole Blood 3.8 3.6 - 4.9 mmol/L LAB HEMATOLOGY METHOD 05/28/2025 12:38 AM EDT [facility] Chloride, Whole Blood 105 97 - 107 mmol/L LAB HEMATOLOGY METHOD 05/28/2025 12:38 AM EDT [facility] Glucose, Whole Blood 192(H) 74 - 99 mg/dL LAB HEMATOLOGY METHOD 05/28/2025 12:38 AM EDT [facility] Ionized Calcium, Whole Blood 4.7 4.6 - 5.1 mg/dL LAB HEMATOLOGY METHOD 05/28/2025 12:38 AM EDT [facility] Lactate, Arterial, Whole Blood 2.3(H) 0.5 - 1.6 mmol/L LAB HEMATOLOGY METHOD 05/28/2025 12:38 AM EDT [facility] Blood Arterial blood specimen / Unknown Arterial Puncture / Unknown 05/28/2025 12:14 AM EDT 05/28/2025 12:35 AM EDT us Rosalba Andre APRN LAB BLOOD ORDERABLES Barbara wynn Result [facility] [address] [place] [address] * [facility], E/M 30-74 MINUTES (05/27/2025 11:43 [...] and nursing services were present on rounds. Rosalba Andre APRN IN CLINIC/BEDSIDE ORDERAB LES Final Result * (ABNORMAL) POCT glucose meter (05/27/2025 10:21 PM EDT) [facility] POCT Glucose 184(H) 74 - 99 mg/dL 05/27/2025 10:22 PM EDT [facility] Comment:Accuracy of a glucos e result [...] for testing. Comment 05/27/2025 10:22 PM EDT [facility] Security Assistant ID Piya, Ojaswi 05/27/2025 10:22 PM EDT [facility] Device ID [id number] 05/27/2025 10:22 PM EDT [facility] Specimen Type POC Arterial 05/27/2025 10:22 PM EDT [facility] Blood Arterial blood specimen / Unknown 05/27/2025 10:21 PM EDT 05/27/2025 10:22 PM EDT us Jose C Nicholson MD LAB POINT OF CARE TE ST DOCKED DEVICE UNSOLICITED RESULTS Final Result [facility] [address] [place] [address] * (ABNORMAL) Blood gas, arterial (05/27/2025 10:17 PM EDT) pH, Arterial 7.40 7.31 - 7.42 LAB HEMATOLOGY METHOD 05/27/2025 10:27 PM EDT [facility] pCO2, Arterial 46 35 - 48 mmHg LAB HEMATOLOGY METHOD 05/27/2025 10:27 PM EDT [facility] pO2, Arterial 88 >70 mmHg LAB HEMATOLOGY METHOD 05/27/2025 10:27 PM EDT [facility] SO2, Measured, Arterial 98 94 - 98 % LAB HEMATOLOGY METHOD 05/27/2025 10:27 PM EDT [facility] Base Excess, Arterial 3.1(H) -2.0 - 3.0 mmol/L LAB HEMATOLOGY METHOD 05/27/2025 10:27 PM EDT [facility] Bicarbonate, Calculated, Arterial 29(H) 22 - 26 mmol/L LAB HEMATOLOGY METHOD 05/27/2025 10:27 PM EDT [facility] Hematocrit, Whole Blood 35.1 34.0 - 45.0 % LAB HEMATOLOGY METHOD 05/27/2025 10:27 PM EDT [facility] Sodium, Whole Blood 145 136 - 145 mmol/L LAB HEMATOLOGY METHOD 05/27/2025 10:27 PM EDT [facility] Potassium, Whole Blood 3.0(L) 3.6 - 4.9 mmol/L LAB HEMATOLOGY METHOD 05/27/2025 10:27 PM EDT [facility] Chloride, Whole Blood 103 97 - 107 mmol/L LAB HEMATOLOGY METHOD 05/27/2025 10:27 PM EDT [facility] Glucose, Whole Blood 188(H) 74 - 99 mg/dL LAB HEMATOLOGY METHOD 05/27/2025 10:27 PM EDT [facility] Ionized Calcium, Whole Blood 4.6 4.6 - 5.1 mg/dL LAB HEMATOLOGY METHOD 05/27/2025 10:27 PM EDT [facility] Lactate, Arterial, Whole Blood 2.5(H) 0.5 - 1.6 mmol/L LAB HEMATOLOGY METHOD 05/27/2025 10:27 PM EDT [facility] Blood Arterial blood specimen / Unknown Arterial Puncture / Unknown 05/27/2025 10:17 PM EDT 05/27/2025 10:25 PM EDT us Rosalba Andre APRN LAB BLOOD ORDERABLES Barbara l Result Performing Organization Address City/[facility]/ZIP Co de Phone Number [facility] [address] [place] [address] * (ABNORMAL) Potassium, Plasma (05/27/2025 10:16 PM EDT) Potassium, Plasma 3.3(L) 3.6 - 4.9 mmol/L 05/27/2025 10:47 PM EDT [facility] Comment:Hemolyzed, result ma y be falsely increased. Blood Arterial blood specimen / Unknown Arterial Puncture / Unknown 05/27/2025 10:16 PM EDT 05/27/2025 10:25 PM EDT us Jose C Nicholson MD LAB BLOOD ORDERABLES Final Resu lt [facility] [address] [place] [address] * (ABNORMAL) Hematocrit (05/27/2025 10:16 PM EDT) HCT 33.3(L) 34.0 - 45.0 % LAB HEMATOLOGY METHOD 05/27/2025 10:32 PM EDT [facility] Blood Arterial blood specimen / Unknown Arterial Puncture / Unknown 05/27/2025 10:16 PM EDT 05/27/2025 10:25 PM EDT us Jose C Nicholson MD LAB BLOOD ORDERABLES Final Resu lt Performing Organization Address City/[facility]/ZIP Co de Phone Number [facility] [address] [place] [address] * Hemoglobin (05/27/2025 10:16 PM EDT) HGB 11.8 11.2 - 15.7 g/dL LAB HEMATOLOGY METHOD 05/27/2025 10:32 PM EDT [facility] Blood Arterial blood specimen / Unknown Arterial Puncture / Unknown 05/27/2025 10:16 PM EDT 05/27/2025 10:25 PM EDT Jose C Nicholson MD LAB BLOOD ORDERABLES Final Resu lt Performing Organization Address [facility] Co de Phone Number [facility] [address] [place] [address] * XR Abdomen 1 View (05/27/2025 9:34 [...] of the abdomen. COMPARISON: None. FINDINGS: Limited [id number] abdominal radiograph for the purpose of locating tube position. The tip of the nasogastric tube is within the proximal stomach. Procedure Note Pa Du MD - 05/27/2025 CLINICAL INDICATION: OG TECHNIQUE: Supine radiograph of the abdomen. COMPARISON: None. FINDINGS: Limited [id number] abdominal radiograph for the purpose of locatingtube position. The tip of the nasogastric tube is within the proximal stomach. IMPRESSION: The tip of the gastric tube is within the proximal stomach CRITICAL RESULT: No. COMMUNICATION: Per this written report. Drafted by Pa Du MD on 05/27/2025 9:36 PM Final report signed by Pa Du MD on 05/27/2025 9:36 PM us Rosalba Andre SILVER RECOVERY OPERATOR IMG XR PROCEDURES Final R esult * (ABNORMAL) POCT glucose meter (05/27/2025 9:23 PM EDT) POCT Glucose 165(H) 74 - 99 mg/dL [...] Comment 05/27/2025 9:26 PM EDT [facility] Security Assistant ID Juhi Copeland 05/27/2025 9:26 PM EDT [facility] Device ID [id number] 05/27/2025 9:26 PM EDT [facility] LAB Specimen Type POC Arterial 05/27/2025 9:26 PM EDT [facility] Blood Arterial blood specimen / Unknown 05/27/2025 9:23 PM EDT 05/27/2025 9:26 PM EDT us Jose C Nicholson MD LAB POINT OF CARE TE ST DOCKED DEVICE UNSOLICITED RESULTS Final Result [facility] [address] [place] [id number] * (ABNORMAL) Blood gas panel with oximetry, mixed venous (05/27/2025 7:55 PM EDT) pH, Mixed Venous 7.37 7.32 - 7.43 LAB HEMATOLOGY METHOD 05/27/2025 8:05 PM EDT [facility] pCO2, Mixed Venous 51 37 - 52 mmHg LAB HEMATOLOGY METHOD 05/27/2025 8:05 PM EDT [facility] pO2, Mixed Venous 39 25 - 40 mmHg LAB HEMATOLOGY METHOD 05/27/2025 8:05 PM EDT [facility] SO2, Measured, Mixed Venous 73 65 - 80 % LAB HEMATOLOGY METHOD 05/27/2025 8:05 PM EDT [facility] Bicarbonate, Calculated, Mixed Venous 30(H) 22 - 26 mmol/L LAB HEMATOLOGY METHOD 05/27/2025 8:05 PM EDT [facility] Base Excess, Mixed Venous 3.8(H) -2.0 - 3.0 mmol/L LAB HEMATOLOGY METHOD 05/27/2025 8:05 PM EDT [facility] Hematocrit, Whole Blood 31.4(L) 34.0 - 45.0 % LAB HEMATOLOGY METHOD 05/27/2025 8:05 PM EDT [facility] Sodium, Whole Blood 146(H) 136 - 145 mmol/L LAB HEMATOLOGY METHOD 05/27/2025 8:05 PM EDT [facility] Potassium, Whole Blood 3.0(L) 3.6 - 4.9 mmol/L LAB HEMATOLOGY METHOD 05/27/2025 8:05 PM EDT [facility] Chloride, Whole Blood 104 97 - 107 mmol/L LAB HEMATOLOGY METHOD 05/27/2025 8:05 PM EDT [facility] Ionized Calcium, Whole Blood 4.7 4.6 - 5.1 mg/dL LAB HEMATOLOGY METHOD 05/27/2025 8:05 PM EDT [facility] Glucose, Whole Blood 135(H) 74 - 99 mg/dL LAB HEMATOLOGY METHOD 05/27/2025 8:05 PM EDT [facility] Oxyhemoglobin, Mixed Venous, Whole Blood 69.5 40.0 - 70.0 % LAB HEMATOLOGY METHOD 05/27/2025 8:05 PM EDT [facility] Hemoglobin Reduced, Mixed Venous, Whole Blood 25.3 % LAB HEMATOLOGY METHOD 05/27/2025 8:05 PM EDT [facility] Total Hemoglobin, Mixed Venous, Whole Blood 10.2(L) 11.2 - 15.7 g/dL LAB HEMATOLOGY METHOD 05/27/2025 8:05 PM EDT [facility] Blood Mixed venous blood specimen / Unknown Venipuncture / Unknown 05/27/2025 7:55 PM EDT 05/27/2025 8:04 PM EDT us Jose C Nicholson MD LAB BLOOD ORDERABLES Final Resu lt [facility] [address] [place] [address] * XR Abdomen 1 View (Adult Inpatients [...] Pa Du MD on 05/27/2025 7:24 PM us Jose C Nicholson MD IM XR PROCEDURES Final Result * (ABNORMAL) Blood gas, arterial (05/27/2025 6:49 PM EDT) pH, Arterial 7.38 7.31 - 7.42 LAB HEMATOLOGY METHOD 05/27/2025 6:54 PM EDT [facility] pCO2, Arterial 47 35 - 48 mmHg LAB HEMATOLOGY METHOD 05/27/2025 6:54 PM EDT [facility] pO2, Arterial 163 >70 mmHg LAB HEMATOLOGY METHOD 05/27/2025 6:54 PM EDT [facility] SO2, Measured, Arterial 99(H) 94 - 98 % LAB HEMATOLOGY METHOD 05/27/2025 6:54 PM EDT [facility] Base Excess, Arterial 1.8 -2.0 - 3.0 mmol/L LAB HEMATOLOGY METHOD 05/27/2025 6:54 PM EDT [facility] Bicarbonate, Calculated, Arterial 28(H) 22 - 26 mmol/L LAB HEMATOLOGY METHOD 05/27/2025 6:54 PM EDT [facility] Hematocrit, Whole Blood 34.3 34.0 - 45.0 % LAB HEMATOLOGY METHOD 05/27/2025 6:54 PM EDT [facility] Sodium, Whole Blood 145 136 - 145 mmol/L LAB HEMATOLOGY METHOD 05/27/2025 6:54 PM EDT [facility] Potassium, Whole Blood 3.3(L) 3.6 - 4.9 mmol/L LAB HEMATOLOGY METHOD 05/27/2025 6:54 PM EDT [facility] Chloride, Whole Blood 103 97 - 107 mmol/L LAB HEMATOLOGY METHOD 05/27/2025 6:54 PM EDT [facility] Glucose, Whole Blood 126(H) 74 - 99 mg/dL LAB HEMATOLOGY METHOD 05/27/2025 6:54 PM EDT [facility] Ionized Calcium, Whole Blood 4.8 4.6 - 5.1 mg/dL LAB HEMATOLOGY METHOD 05/27/2025 6:54 PM EDT [facility] Lactate, Arterial, Whole Blood 3.5(H) 0.5 - 1.6 mmol/L LAB HEMATOLOGY METHOD 05/27/2025 6:54 PM EDT [facility] Blood Arterial blood specimen / Unknown Arterial Puncture / Unknown 05/27/2025 6:49 PM EDT 05/27/2025 6:53 PM EDT us Jose C Nicholson MD LAB BLOOD ORDERABLES Final Resu lt [facility] [address] [place] [address] * Zaria auris Surveillance by PCR (05/27/2025 6:48 PM EDT) Zaria auris PCR Result Not Detected Not Detected 05/28/2025 3:04 PM EDT [facility] Swab (Axilla and Groin) Non-blood Collection / Unknown 05/27/2025 6:48 PM EDT 05/27/2025 7:07 PM EDT Narrative [facility] - 05/28/2025 3:04 PM EDT This PCR assay was developed and its performance characteristics determined by [facility] as appropriate for clinical purposes. This assay has not been cleared or approved by the FDA, but is performed in a CLIA regulated laboratory that is qualified to perform high-complexity testing. Jose C Nicholson MD LAB MICROBIOLOGY - [facility] [place] [address] * Multi Drug Resistance Test (05/27/2025 6:48 PM EDT) Pathologist [facility] Culture No growth at day 1 05/28/2025 9:07 PM EDT [facility] Swab (Nares and Frances Rectal) Non-blood Collection / Unknown 05/27/2025 6:48 PM EDT 05/27/2025 7:07 PM EDT Narrative [facility] - 05/28/2025 9:07 PM EDT This test was developed and its performance characteristics determined by the [facility]. Although the media is FDA-approved, it is not FDA-approved for all specimen types submitted. The FDA has determined that such clearance or approval is not necessary. This test is used for surveillance purposes. It should not be regarded as investigational or for research. The [facility] is certified under the Clinical Laboratory Improvement Amendments of 1988 (CLIA-88) as qualified to perform high complexity clinical laboratory testing. Jose C Nicholson MD LAB MICROBIOLOGY - GENERAL ORDE RABLES Final Result Performing Organization Address City/[facility]/ZIP Co de Phone Number [facility] [address] [place] [address] * APTT (05/27/2025 6:48 PM EDT) aPTT 28 25 - 35 sec LAB COAGULATION METHOD 05/27/2025 7:42 PM EDT [facility] Blood Venous blood specimen / Unknown Venipuncture / Unknown 05/27/2025 6:48 PM EDT 05/27/2025 6:54 PM EDT us Jose C Nicholson MD LAB BLOOD ORDERABLES Final Resu lt Performing Organization Address [facility]/ZIP Co de Phone Number [facility] [address] [place] [address] * (ABNORMAL) Protime-INR (05/27/2025 6:48 PM EDT) Prothrombin Time 10.6(L) 12.0 - 14.3 sec LAB COAGULATION METHOD 05/27/2025 7:47 PM EDT [facility] INR 0.7(L) 0.9 - 1.1 LAB COAGULATION METHOD 05/27/2025 7:47 PM EDT [facility] Blood Venous blood specimen / Unknown Venipuncture / Unknown 05/27/2025 6:48 PM EDT 05/27/2025 6:54 PM EDT Narrative [facility] - 05/27/2025 7:47 PM EDT OPTIMAL INR RANGES FOR PATIENT ON ORAL ANTICOAGULANT THERAPY Prevention of venous thromboembolism INR 2.0 to 3.0 In patients with heart disease: Atrial fibrillation INR 2.0 to 3.0 Valvular heart disease INR 2.0 to 3.0 Tissue heart valves INR 2.0 to 3.0 Mechanical prosthetic valves INR 2.5 to 3.5 Prevention of recurrent WA INR 2.5 to 3.5 us Jose C Nicholson MD LAB BLOOD ORDERABLES Final Resu lt Performing Organization Address City/[facility]/ZIP Co de Phone Number [facility] [address] [place] [address] * (ABNORMAL) Phosphorus (05/27/2025 6:48 PM EDT) Phosphorus, Plasma 2.1(L) 2.5 - 4.5 mg/dL 05/27/2025 7:26 PM EDT [facility] Blood Venous blood specimen / Unknown Venipuncture / Unknown 05/27/2025 6:48 PM EDT 05/27/2025 6:54 PM EDT Jose C Nicholson MD LAB BLOOD ORDERABLES Final Resu lt Performing Organization Address [facility]/ZIP Co de Phone Number [facility] [address] [place] [address] * (ABNORMAL) Magnesium (05/27/2025 6:48 PM EDT) Magnesium, Plasma 3.7(H) 1.9 - 2.4 mg/dL 05/27/2025 7:26 PM EDT [facility] Blood Venous blood specimen / Unknown Venipuncture / Unknown 05/27/2025 6:48 PM EDT 05/27/2025 6:54 PM EDT Jose C Nicholson MD LAB BLOOD ORDERABLES Final Resu lt Performing Organization Address City/[facility]/ZIP Co de Phone Number [facility] [address] [place] [address] * (ABNORMAL) Basic metabolic panel (05/27/2025 6:48 PM EDT) Glucose, Plasma 127(H) 74 - 99 mg/dL 05/27/2025 7:26 PM EDT [facility] BUN, Plasma 19 8 - 23 mg/dL 05/27/2025 7:26 PM EDT [facility] Creatinine, Plasma 0.75 0.60 - 1.10 mg/dL 05/27/2025 7:26 PM EDT [facility] BUN/Creatinine Ratio 25 05/27/2025 7:26 PM EDT [facility] Sodium, Plasma 144 136 - 145 mmol/L 05/27/2025 7:26 PM EDT [facility] Potassium, Plasma 3.5(L) 3.6 - 4.9 mmol/L 05/27/2025 7:26 PM EDT [facility] Comment:Hemolyzed, result ma y be falsely increased. Chloride, Plasma 104 97 - 107 mmol/L 05/27/2025 7:26 PM EDT [facility] CO2, Plasma 24 22 - 29 mmol/L 05/27/2025 7:26 PM EDT [facility] Anion Gap 16 6 - 16 mmol/L 05/27/2025 7:26 PM EDT [facility] Total Calcium, Plasma 9.5 8.9 - 10.2 mg/dL 05/27/2025 7:26 PM EDT [facility] eGFRcr 85.2 mL/min/1.7 3m*2 05/27/2025 7:26 PM EDT [facility] Comment:Reported eGFRcr in m L/min/1.73m2 is based the CKD-EPI 2020 equation that does not use a race coefficient. Blood Venous blood specimen / Unknown Venipuncture / Unknown 05/27/2025 6:48 PM EDT 05/27/2025 6:54 PM EDT us Jose C Nicholson MD LAB BLOOD ORDERABLES Final Resu lt [facility] [address] [place] [address] * (ABNORMAL) CBC (05/27/2025 6:48 PM EDT) WBC Count 12.29(H) 3.70 - 10.30 10*3/uL LAB HEMATOLOGY METHOD 05/27/2025 7:01 PM EDT [facility] RBC Count 3.91 3.90 - 5.20 10*6/uL LAB HEMATOLOGY METHOD 05/27/2025 7:01 PM EDT [facility] HGB 11.5 11.2 - 15.7 g/dL LAB HEMATOLOGY METHOD 05/27/2025 7:01 PM EDT [facility] HCT 32.9(L) 34.0 - 45.0 % LAB HEMATOLOGY METHOD 05/27/2025 7:01 PM EDT [facility] Platelet Count 186 155 - 369 10*3/uL LAB HEMATOLOGY METHOD 05/27/2025 7:01 PM EDT [facility] MCV 84 79 - 98 fL LAB HEMATOLOGY METHOD 05/27/2025 7:01 PM EDT [facility] MCH 29.4 26.0 - 32.0 pg LAB HEMATOLOGY METHOD 05/27/2025 7:01 PM EDT [facility] MCHC 35.0 30.7 - 35.5 g/dL LAB HEMATOLOGY METHOD 05/27/2025 7:01 PM EDT [facility] RDW 14.7(H) 11.5 - 14.5 % LAB HEMATOLOGY METHOD 05/27/2025 7:01 PM EDT [facility] MPV 10.5 8.8 - 12.5 fL LAB HEMATOLOGY METHOD 05/27/2025 7:01 PM EDT [facility] nRBC 0.0 <=0.0 per 100 WBCs LAB HEMATOLOGY METHOD 05/27/2025 7:01 PM EDT [facility] Blood Venous blood specimen / Unknown Venipuncture / Unknown 05/27/2025 6:48 PM EDT 05/27/2025 6:54 PM EDT us Jose C Nicholson MD LAB BLOOD ORDERABLES Final Resu lt [facility] [address] [place] [address] * ECG Adult - Upon Admissoin to CVICU (05/27/2025 6:38 PM EDT) EKG DIAGNOSIS CLASS Normal MUSE ECG Ventricular Rate 71 BPM MUSE ECG Atrial Rate 71 BPM MUSE ECG NC Interval 178 ms MUSE ECG QRSD Interval 86 ms MUSE ECG QT Interval 426 ms MUSE ECG QTC Interval 462 ms MUSE ECG P [place] 41 degrees MUSE ECG R [place] 29 degrees MUSE ECG T Wave [place] 21 degrees MUSE ECG Diagnosis Normal sinus rhythm MUSE ECG Diagnosis MUSE ECG Diagnosis MUSE ECG Diagnosis Confirmed by Tracy Vanegas ([id number]) on 05/28/2025 1:36:38 PM MUSE ECG 05/27/2025 [...] 1 VIEW COMPARISON: 05/14/2025 FINDINGS: Right IJ [place]-Chrissy catheter tip overlies right pulmonary artery, bilateral [...] 1 VIEW COMPARISON: 05/14/2025 FINDINGS: Right IJ [place]-Chrissy catheter tip overlies right pulmonary artery, bilateralchest [...] Pa Du MD on 05/27/2025 6:09 PM Jose C Nicholson MD IMG XR PROCEDURES Final Result * (ABNORMAL) POCT arterial blood gas gem (05/27/2025 5:42 PM EDT) pH, Arterial 7.38 7.31 - 7.42 05/30/2025 10:56 AM EDT [facility] pCO2, Arterial 41 35 - 48 mm Hg 05/30/2025 10:56 AM EDT [facility] pO2, Arterial 113 >70 mm Hg 05/30/2025 10:56 AM EDT [facility] SO2, Arterial 98 94 - 98 % [facility] Excess, Arterial -0.8 -2 - 3 mmol/L 05/30/2025 10:[facility] HCO3, Arterial 24.3 22 - 26 mmol/L 05/30/2025 10:56 AM EDT [facility] Total Hemoglobin, Arterial, Whole Blood 9.0(L) 11.2 - 15.7 g/dL 05/30/2025 10[facility] Hematocrit, Arterial 27.0(L) 34.0 - 45.0 % 05/30/2025 10[facility] Sodium, Arterial 142 136 - 145 mmol/L 05/30/2025 10[facility] Potassium, Arterial 3.7 3.6 - 4.9 mmol/L 05/30/2025 10:[facility] Chloride, Whole Blood 107 97 - 107 mmol/L 05/30/2025 10[facility] Glucose, Arterial 144(H) 74 - 99 mg/dL 05/30/2025 10[facility] Ionized Calcium, Arterial 4.3(L) 4.6 - 5.1 mg/dL 05/30/2025 10[facility] Lactate, Arterial 4.0(H) 0.5 - 1.6 mmol/L 05/30/2025 10:56 AM EDT [facility] Body Temperature 37.0 Celsius 05/30/2025 10:56 [facility] pH, Temp Corrected, Arterial 7.38 7.31 - 7.42 05/30/2025 10:56 AM [facility] pCO2, Temp Corrected, Arterial 41 35 - 48 mm Hg 05/30/2025 10:56 AM EDT [facility] pO2, Temp Corrected, Arterial 113 >70 mm Hg 05/30/2025 10:56 AM [facility] Security Assistant Belgica López 05/30/2025 10:56 AM EDT [facility] Blood, Arterial Whole blood specimen / Unknown 05/27/2025 5:42 PM EDT 05/30/2025 10:56 AM EDT us Jose C Nicholson MD LAB POINT OF CARE TE ST DOCKED DEVICE UNSOLICITED RESULTS Final Result Performing Organization Address City/State/[facility] Co de Phone Number [facility] [address] [place] [address] * Transfuse fresh frozen plasma (05/27/2025 5:18 PM EDT) Miguel Ángel Malave MD BLOOD TRANSFUSION ORDERABLE S Final Result * Transfuse RBC (05/27/2025 4:51 PM EDT) Miguel Ángel Malave MD BLOOD TRANSFUSION ORDERABLE S Final Result * (ABNORMAL) POCT arterial blood gas gem (05/27/2025 4:48 PM EDT) pH, Arterial 7.37 7.31 - 7.42 05/30/2025 11:46 AM EDT [facility] pCO2, Arterial 39 35 - 48 mm Hg 05/30/2025 11:46 AM EDT [facility] pO2, Arterial 246 >70 mm Hg 05/30/2025 11:46 AM EDT [facility] SO2, Arterial 99(H) 94 - 98 % 05/30/2025 11:46 AM EDT [facility] Base Excess, Arterial -2.5(L) -2 - 3 mmol/L 05/30/2025 11:46 AM EDT [facility] HCO3, Arterial 22.5 22 - 26 mmol/L 05/30/2025 11:46 AM EDT [facility] Total Hemoglobin, Arterial, Whole Blood <6.0(LL) 11.2 - 15.7 g/dL 05/30/2025 11:46 AM EDT [facility] Sodium, Arterial 141 136 - 145 mmol/L 05/30/2025 11:46 AM EDT [facility] Potassium, Arterial 4.3 3.6 - 4.9 mmol/L 05/30/2025 11:46 AM EDT [facility] Chloride, Whole Blood 103 97 - 107 mmol/L 05/30/2025 11:46 AM EDT [facility] Glucose, Arterial 193(H) 74 - 99 mg/dL 05/30/2025 11:46 AM EDT [facility] Ionized Calcium, Arterial 4.5(L) 4.6 - 5.1 mg/dL 05/30/2025 11:46 AM EDT [facility] Lactate, Arterial 5.0(H) 0.5 - 1.6 mmol/L 05/30/2025 11:46 AM EDT [facility] Body Temperature 37.0 Celsius 05/30/2025 11:46 AM EDT [facility] pH, Temp Corrected, Arterial 7.37 7.31 - 7.42 05/30/2025 11:46 AM EDT [facility] pCO2, Temp Corrected, Arterial 39 35 - 48 mm Hg 05/30/2025 11:46 AM EDT [facility] pO2, Temp Corrected, Arterial 246 >70 mm Hg 05/30/2025 11:46 AM EDT [facility] Security Assistant ID Belgica Chris 05/30/2025 11:46 AM EDT [facility] Blood, Arterial Whole blood specimen / Unknown 05/27/2025 4:48 PM EDT 05/30/2025 11:46 AM EDT us Jose C Nicholson MD LAB POINT OF CARE TE ST DOCKED DEVICE UNSOLICITED RESULTS Final Result [facility] [address] [place] [address] * (ABNORMAL) POCT arterial blood gas gem (05/27/2025 4:29 PM EDT) pH, Arterial 7.40 7.31 - 7.42 06/09/2025 10:06 AM [facility] pCO2, Arterial 35 35 - 48 mm Hg 06/09/2025 10:06 AM [facility] pO2, Arterial 285 >70 mm Hg 06/09/2025 10:06 AM [facility] SO2, Arterial 99(H) 94 - 98 % 06/09/2025 10:06 AM [facility] Base Excess, Arterial -2.5(L) -2 - 3 mmol/L 06/09/2025 10:06 AM [facility] HCO3, Arterial 21.7(L) 22 - 26 mmol/L 06/09/2025 10:06 AM [facility] Total Hemoglobin, Arterial, Whole Blood <6.0(LL) 11.2 - 15.7 g/dL 06/09/2025 10:06 AM [facility] Sodium, Arterial 140 136 - 145 mmol/L 06/09/2025 10:06 AM [facility] Potassium, Arterial 4.1 3.6 - 4.9 mmol/L 06/09/2025 10:06 AM [facility] Chloride, Whole Blood 104 97 - 107 mmol/L 06/09/2025 10:06 AM [facility] Glucose, Arterial 190(H) 74 - 99 mg/dL 06/09/2025 10:06 AM [facility] Ionized Calcium, Arterial 4.1(L) 4.6 - 5.1 mg/dL 06/09/2025 10:06 AM [facility] Lactate, Arterial 4.0(H) 0.5 - 1.6 mmol/L 06/09/2025 10:06 AM [facility] Body Temperature 37.0 Celsius 06/09/2025 10:06 AM [facility] pH, Temp Corrected, Arterial 7.40 7.31 - 7.42 06/09/2025 10:06 AM [facility] pCO2, Temp Corrected, Arterial 35 35 - 48 mm Hg 06/09/2025 10:06 AM [facility] pO2, Temp Corrected, Arterial 285 >70 mm Hg 06/09/2025 10:06 AM [facility] Security Assistant ID Feleciadottie Miguel Ángel aden 06/09/2025 10:06 AM EDT [facility] Blood, Arterial Whole blood specimen / Unknown 05/27/2025 4:29 PM EDT 06/09/2025 10:06 AM EDT us Jose C Nicholson MD LAB POINT OF CARE TE ST DOCKED DEVICE UNSOLICITED RESULTS Final Result Performing Organization Address City/[facility]/ZIP [facility] Phone Number [facility] [address] [place] [address] * QPLUS (05/27/2025 4:27 PM EDT) Clot Time 150 104 - 166 Seconds 05/27/2025 4:41 PM EDT [facility] Clot Time Ratio 1.0 0.8 - 1.2 4:41 PM EDT [facility] Comment:The Clot Time Ratio (CTR) [...] Seconds 05/27/2025 4:41 PM EDT [facility] Security Assistant ID Dot Belgica 05/27/2025 4:41 PM EDT [facility] Device ID [id number] 05/27/2025 4:41 PM EDT [facility] Whole Blood 05/27/2025 4:27 PM EDT 05/27/2025 4:41 PM EDT us Jose C Nicholson MD LAB POINT OF CARE TE ST DOCKED DEVICE UNSOLICITED RESULTS Final Result [facility] [address] [place] [address] * Transfuse fresh frozen plasma (05/27/2025 4:08 PM EDT) Miguel Ángel Malave MD BLOOD TRANSFUSION ORDERABLE S Final Result * Transfuse platelets (05/27/2025 4:07 PM EDT) Miguel Ángel Malave MD BLOOD TRANSFUSION ORDERABLE S Final Result * Prepare Leukocyte Reduced Platelets: 1 Units (05/27/2025 3:58 PM EDT) Product Code [id number] CH BLOO D BANK Dispense Status Transfused BLOOD BANK Blood Expiration Date [id number] BLOOD BANK Unit Number [id number] CH B LOOD BANK Product Blood Type 6200 BLOOD BANK Blood Type A+ BLOOD BANK Blood Venous blood specimen / Unknown Jose C Nicholson MD BLOOD BANK PRODUCT ORDERABLES F inal Result Performing Organization Address [facility] Co de Phone Number BLOOD BANK [address] * (ABNORMAL) POCT arterial blood gas gem (05/27/2025 3:43 PM EDT) pH, Arterial 7.38 7.31 - 7.42 05/30/2025 10:55 AM EDT [facility] pCO2, Arterial 33(L) 35 - 48 mm Hg 05/30/2025 10:55 AM EDT [facility] pO2, Arterial 138 >70 mm Hg 05/30/2025 10:55 AM EDT [facility] SO2, Arterial 98 94 - 98 % 05/30/2025 10:55 AM EDT [facility] Base Excess, Arterial -5.0(L) -2 - 3 mmol/L 05/30/2025 10:55 AM EDT [facility] HCO3, Arterial 19.5(L) 22 - 26 mmol/L 05/30/2025 10:55 AM EDT [facility] Total Hemoglobin, Arterial, Whole Blood 8.5(L) 11.2 - 15.7 g/dL 05/30/2025 10:55 AM EDT [facility] Hematocrit, Arterial 26.0(L) 34.0 - 45.0 % 05/30/2025 10:55 AM EDT [facility] Sodium, Arterial 136 136 - 145 mmol/L 05/30/2025 10:55 AM EDT [facility] Potassium, Arterial 5.0(H) 3.6 - 4.9 mmol/L 05/30/2025 10:55 AM EDT [facility] Chloride, Whole Blood 106 97 - 107 mmol/L 05/30/2025 10:55 AM EDT [facility] Glucose, Arterial 213(H) 74 - 99 mg/dL 05/30/2025 10:55 AM EDT [facility] Ionized Calcium, Arterial 5.7(H) 4.6 - 5.1 mg/dL 05/30/2025 10:55 AM EDT [facility] Lactate, Arterial 4.7(H) 0.5 - 1.6 mmol/L 05/30/2025 10:55 AM EDT [facility] Body Temperature 37.0 Celsius 05/30/2025 10:55 AM EDT [facility] pH, Temp Corrected, Arterial 7.38 7.31 - 7.42 05/30/2025 10:55 AM EDT [facility] pCO2, Temp Corrected, Arterial 33(L) 35 - 48 mm Hg 05/30/2025 10:55 AM EDT [facility] pO2, Temp Corrected, Arterial 138 >70 mm Hg 05/30/2025 10:55 AM EDT [facility] Security Assistant KERWIN Belgica Chris 05/30/2025 10:55 AM EDT [facility] Blood, Arterial Whole blood specimen / Unknown 05/27/2025 3:43 PM EDT 05/30/2025 10:55 AM EDT us Jose C Nicholson MD LAB POINT OF CARE TE ST DOCKED DEVICE UNSOLICITED RESULTS Final Result [facility] [address] [place] [address] * POCT ACT (05/27/2025 3:40 PM EDT) [facility] Signature ACT+ (HIGH RANGE) 140 68 - 600 Seconds 06/14/2025 3:51 AM EDT [facility] Security Assistant ID Krzysztof Gooden 06/14/2025 3:51 AM EDT [facility] ACT Device ID [id number] 06/14/2025 3:51 AM EDT [facility] Comment 06/14/2025 3:51 AM EDT [facility] Comment: ACT performed by staff at [...] UNSOLICITED RESULTS Final Result Performing Organization Address City/State/[facility] de Phone Number [facility] [address] LAB [address] [place] [address] * Transfuse fresh frozen plasma (05/27/2025 3:36 [...] * Transfuse platelets (05/27/2025 3:34 PM EDT) Result Moises Malave MD BLOOD TRANSFUSION ORDERABLE S Final Result * Transfuse platelets (05/27/2025 3:34 PM EDT) Miguel Ángel Malave MD BLOOD TRANSFUSION ORDERABLE S Final Result * Transfuse RBC (05/27/2025 3:23 PM EDT) Miguel Ángel Malave MD BLOOD TRANSFUSION ORDERABLE S Final Result * (ABNORMAL) POCT arterial blood gas gem (05/27/2025 3:02 PM EDT) pH, Arterial 7.40 7.31 - 7.42 05/30/2025 10:55 AM EDT [facility] pCO2, Arterial 37 35 - 48 mm Hg 05/30/2025 10:55 AM EDT [facility] pO2, Arterial 296 >70 mm Hg 05/30/2025 10:55 AM T [facility] SO2, Arterial 98 94 - 98 % 05/30/2025 10:55 AM T [facility] Base Excess, Arterial -1.7 -2 - 3 mmol/L 05/30/2025 10:55 AM [facility] HCO3, Arterial 22.9 22 - 26 mmol/L 05/30/2025 10:55 AM EDT [facility] Total Hemoglobin, Arterial, Whole Blood 8.4(L) 11.2 - 15.7 g/dL 05/30/2025 10:55 AM T [facility] Hematocrit, Arterial 25.0(L) 34.0 - 45.0 % 05/30/2025 10:55 AM [facility] Sodium, Arterial 136 136 - 145 mmol/L 05/30/2025 10:55 AM T [facility] Potassium, Arterial 5.1(H) 3.6 - 4.9 mmol/L 05/[facility] Chloride, Whole Blood 102 97 - 107 mmol/L 05/30/2025 10:55 AM EDT [facility] Glucose, Arterial 210(H) 74 - 99 mg/dL 05/30/2025 10:55 AM [facility] Ionized Calcium, Arterial 5.3(H) 4.6 - 5.1 mg/dL 05/30/2025 10:55 AM T [facility] Lactate, Arterial 3.8(H) 0.5 - 1.6 mmol/L 05/30/2025 10:55 AM EDT [facility] Body Temperature 37.0 Celsius 05/30/2025 10:55 AM EDT [facility] pH, Temp Corrected, Arterial 7.40 7.31 - 7.42 05/30/2025 10:55 AM EDT [facility] pCO2, Temp Corrected, Arterial 37 35 - 48 mm Hg 05/30/2025 10:55 AM EDT [facility] pO2, Temp Corrected, Arterial 296 >70 mm Hg 05/30/2025 10:55 AM EDT [facility] Security Assistant ID Krzysztof Gooden 05/30/2025 10:55 AM EDT [facility] Blood, Arterial Whole blood specimen / Unknown 05/27/2025 3:02 PM EDT 05/30/2025 10:55 AM EDT us Jose C Nicholson MD LAB POINT OF CARE TE ST DOCKED DEVICE UNSOLICITED RESULTS Final Result Performing Organization Address City/State/[facility] Co de Phone Number [facility] [address] [place] [address] * (ABNORMAL) TEG Global Hemostasis with Heparinase (05/27/2025 2:52 PM EDT) R >17.0(H) 4.6 - 9.1 min 05/27/2025 4:38 PM EDT [facility] R, Heparinase 11.1(H) 4.3 - 8.3 min 05/27/2025 4:38 PM EDT [facility] K 05/27/2025 4:38 PM EDT [facility] Comment:Interfering substanc es present. Parameter cannot be measured. Angle <39.0(L) 63.0 - 78.0 degrees 05/27/2025 4:38 PM EDT [facility] MA <40.0(L) 52.0 - 69.0 mm 05/27/2025 4:38 PM EDT [facility] MA, Rapid 05/27/2025 4:38 PM EDT [facility] Comment:Interfering substanc es present. Parameter cannot be measured. MA, Fibrinogen 05/27/2025 4:38 PM EDT [facility] Comment:Interfering substanc es present. Parameter cannot be measured. FLEV 05/27/2025 4:38 PM EDT [facility] Comment:Interfering substanc es present. Parameter cannot be measured. 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] us Jose C Nicholson MD LAB BLOOD ORDERABLES Final Resu lt [facility] [address] [place] [address] * (ABNORMAL) CBC W/O Differential (05/27/2025 2:52 PM EDT) WBC Count 9.22 3.70 - 10.30 10*3/uL LAB HEMATOLOGY METHOD 05/27/2025 4:40 PM EDT [facility] RBC Count 2.67(L) 3.90 - 5.20 10*6/uL LAB HEMATOLOGY METHOD 05/27/2025 4:40 PM EDT [facility] HGB 8.0(L) 11.2 - 15.7 g/dL LAB HEMATOLOGY METHOD 05/27/2025 4:40 PM EDT [facility] HCT 23.5(L) 34.0 - 45.0 % LAB HEMATOLOGY METHOD 05/27/2025 4:40 PM EDT [facility] Platelet Count 85(L) 155 - 369 10*3/uL LAB HEMATOLOGY METHOD 05/27/2025 4:40 PM EDT [facility] MCV 88 79 - 98 fL LAB HEMATOLOGY METHOD 05/27/2025 4:40 PM EDT [facility] MCH 30.0 26.0 - 32.0 pg LAB HEMATOLOGY METHOD 05/27/2025 4:40 PM EDT [facility] MCHC 34.0 30.7 - 35.5 g/dL LAB HEMATOLOGY METHOD 05/27/2025 4:40 PM EDT [facility] RDW 14.4 11.5 - 14.5 % LAB HEMATOLOGY METHOD 05/27/2025 4:40 PM EDT [facility] MPV 11.8 8.8 - 12.5 fL LAB HEMATOLOGY METHOD 05/27/2025 4:40 PM EDT [facility] nRBC 0.3(H) <=0.0 per 100 WBCs LAB HEMATOLOGY METHOD 05/27/2025 4:40 PM EDT [facility] 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] us Jose C Nicholson MD LAB BLOOD ORDERABLES Final Resu lt [facility] [address] [place] [address] * (ABNORMAL) QPLUS (05/27/2025 2:46 PM EDT) Clot Time 05/27/2025 3:03 PM EDT [facility] Clot Time Ratio 3:03 PM EDT [facility] POCT Clot Stiffness 10.5(L) 13.0 - 33.2 hectoPascals 05/27/2025 3:03 PM EDT [facility] Platelet Contribution to Clot Stiffnes 9.1(L) 11.9 - 29.8 hectoPascals 05/27/2025 3:03 PM EDT [facility] Fibrinogen Contribution to Clot Stiffness 1.4 1.0 - 3.7 hectoPascals 05/27/2025 3:03 PM EDT [facility] Heparinase Clot Time 162(H) 103 - 153 Seconds 05/27/2025 3:03 PM EDT [facility]ALTH[facility] Security Assistant ID Gurpreet Arzola 05/27/2025 3:03 PM EDT [facility] Device ID [id number] 05/27/2025 3:03 PM EDT [facility] Whole Blood 05/27/2025 2:46 PM EDT 05/27/2025 3:03 PM EDT Narrative [facility] - 05/27/2025 3:[address]: No Clot Detected us Jose C Nicholson MD LAB POINT OF CARE TE ST DOCKED DEVICE UNSOLICITED RESULTS Final Result [facility] [address] [place] [address] * Prepare Cryoprecipitate: 2 Pools (05/27/2025 2:46 PM EDT) Product Code [id number] CH BLOO D BANK Dispense Status Transfused CH BLOOD BANK Blood Expiration Date [id number] BLOOD BANK Unit Number [id number] CH B LOOD BANK Product Blood Type 6200 CH BLOOD BANK Blood Type A+ CH BLOOD BANK Product Code [id number] CH BLOO D BANK Dispense Status Transfused CH BLOOD BANK Blood Expiration Date [id number] BLOOD BANK Unit Number [id number] CH B LOOD BANK Product Blood Type 6200 CH BLOOD BANK Blood Type A+ CH BLOOD BANK Blood Venous blood specimen / Unknown us Jose C Nicholson MD BLOOD BANK PRODUCT ORDERABLES E dited Result - Final Performing Organization Address City/[facility] Co de Phone Number BLOOD BANK [address] * Prepare Leukocyte Reduced Platelets: 2 Units (05/27/2025 2:46 PM EDT) Product Code [id number] CH BLOO D BANK Dispense Status Transfused CH BLOOD BANK Blood Expiration Date [id number] BLOOD BANK Unit Number [id number] CH B LOOD BANK Product Blood Type 6200 CH BLOOD BANK Blood Type A+ CH BLOOD BANK Product Code [id number] CH BLOO D BANK Dispense Status Transfused CH BLOOD BANK Blood Expiration Date [id number] BLOOD BANK Unit Number [id number] CH B LOOD BANK Product Blood Type 6200 CH BLOOD BANK Blood Type A+ CH BLOOD BANK Blood Venous blood specimen / Unknown Jose C Nicholson MD BLOOD BANK PRODUCT ORDERABLES E dited Result - Final BLOOD BANK [address] [place] [id number], * (ABNORMAL) POCT arterial blood gas gem (05/27/2025 2:36 PM EDT) pH, Arterial 7.41 7.31 - 7.42 05/30/2025 10:54 AM EDT [facility] pCO2, Arterial 31(L) 35 - 48 mm Hg 05/30/2025 10:54 AM EDT [facility] pO2, Arterial 233 >70 mm Hg 05/30/2025 10:54 AM EDT [facility] SO2, Arterial 98 94 - 98 % 05/30/2025 10:54 AM EDT [facility] Base Excess, Arterial -4.4(L) -2 - 3 mmol/L 05/30/2025 10:54 AM EDT [facility] HCO3, Arterial 19.6(L) 22 - 26 mmol/L 05/30/2025 10:54 AM EDT [facility] Total Hemoglobin, Arterial, Whole Blood 8.2(L) 11.2 - 15.7 g/dL 05/30/2025 10:54 AM EDT [facility] Hematocrit, Arterial 25.0(L) 34.0 - 45.0 % 05/30/2025 10:54 AM EDT [facility] Sodium, Arterial 133(L) 136 - 145 mmol/L 05/30/2025 10:54 AM EDT [facility] Potassium, Arterial 5.0(H) 3.6 - 4.9 mmol/L 05/30/2025 10:54 AM EDT [facility] Chloride, Whole Blood 100 97 - 107 mmol/L 05/30/2025 10:54 AM EDT [facility] Glucose, Arterial 229(H) 74 - 99 mg/dL 05/30/2025 10:54 AM EDT [facility] Ionized Calcium, Arterial 3.9(L) 4.6 - 5.1 mg/dL 05/30/2025 10:54 AM EDT [facility] Lactate, Arterial 3.8(H) 0.5 - 1.6 mmol/L 05/30/2025 10:54 AM EDT [facility] Body Temperature 37.0 Celsius 05/30/2025 10:54 AM EDT [facility] pH, Temp Corrected, Arterial 7.41 7.31 - 7.42 05/30/2025 10:54 AM EDT [facility]ALTH[facility] LAB pCO2, Temp Corrected, Arterial 31(L) 35 - 48 mm Hg 05/30/2025 10:54 AM EDT [facility] pO2, Temp Corrected, Arterial 233 >70 mm Hg 05/30/2025 10:54 AM EDT [facility]ALTH[facility] LAB Security Assistant ID Krzysztof Gooden 05/30/2025 10:54 AM EDT [facility] Blood, Arterial Whole blood specimen / Unknown 05/27/2025 2:36 PM EDT 05/30/2025 10:54 AM EDT Jose C Nicholson MD LAB POINT OF CARE TE ST DOCKED DEVICE UNSOLICITED RESULTS Final Result Performing Organization Address City/[facility] Co de Phone Number [facility] [address] [place] [address] * Prepare Fresh Frozen Plasma: 2 Units (05/27/2025 2:15 PM EDT) Product Code [id number] BLOO D BANK Dispense Status Transfused BLOOD BANK Blood Expiration Date [id number] BLOOD BANK Unit Number [id number] CH B LOOD BANK Product Blood Type 6200 BLOOD BANK Blood Type A+ BLOOD BANK Product Code [id number] BLOO D BANK Dispense Status Transfused BLOOD BANK Blood Expiration Date [id number] BLOOD BANK Unit Number [id number] CH B LOOD BANK Product Blood Type 6200 BLOOD BANK Blood Type A+ BLOOD BANK Blood Venous blood specimen / Unknown us Jose C Nicholson MD BLOOD BANK PRODUCT ORDERABLES F inal Result Performing Organization Address City/[facility] Co de Phone Number BLOOD BANK [address] [place] [address], * Prepare Leukocyte Reduced RBC: 4 Units (05/27/2025 2:15 PM EDT) Product Code [id number] BLOO D BANK Dispense Status Returned BLOOD BANK Blood Expiration Date [id number] BLOOD BANK Unit Number [id number] CH B LOOD BANK Product Blood Type 6200 BLOOD BANK Blood Type A+ CH BLOOD BANK Crossmatch Compatible BLOOD BANK Product Code [id number] BLOO D BANK Dispense Status Returned CH BLOOD BANK Blood Expiration Date [id number] BLOOD BANK Unit Number [id number] CH B LOOD BANK Product Blood Type 6200 CH BLOOD BANK Blood Type A+ CH BLOOD BANK Crossmatch Compatible CH BLOOD BANK Product Code [id number] BLOO D BANK Dispense Status Transfused CH BLOOD BANK Blood Expiration Date [id number] BLOOD BANK Unit Number [id number] CH B LOOD BANK Product Blood Type 6200 CH BLOOD BANK Blood Type A+ CH BLOOD BANK Crossmatch Compatible CH BLOOD BANK Product Code [id number] BLOO D BANK Dispense Status Returned BLOOD BANK Blood Expiration Date [id number] BLOOD BANK Unit Number [id number] CH B LOOD BANK Product Blood Type 6200 BLOOD BANK Blood Type A+ CH BLOOD BANK Crossmatch Compatible BLOOD BANK Other Jose C Nicholson MD BLOOD BANK PRODUCT ORDERABLES E dited Result - Final Performing Organization Address City/State/[facility] Co de Phone Number BLOOD BANK [address] * Transfuse RBC (05/27/2025 2:13 PM EDT) Miguel Ángel Malave MD BLOOD TRANSFUSION ORDERABLE S Final Result * (ABNORMAL) POCT arterial blood gas gem (05/27/2025 2:09 PM EDT) pH, Arterial 7.49(H) 7.31 - 7.42 05/30/2025 10:54 AM EDT [facility]ALTH[facility] pCO2, Arterial 29(L) 35 - 48 mm Hg 05/30/2025 10:54 AM EDT [facility] pO2, Arterial 336 >70 mm Hg 05/30/2025 10:54 AM EDT [facility] SO2, Arterial 98 94 - 98 % 05/30/2025 10:54 AM EDT [facility]ALTH[facility]ARE LAB Base Excess, Arterial -1.0 -2 - 3 mmol/L 05/30/2025 10:54 AM [facility] HCO3, Arterial 22.1 22 - 26 mmol/L 05/30/2025 10:54 AM [facility] Total Hemoglobin, Arterial, Whole Blood 7.1(L) 11.2 - 15.7 g/dL 05/30/2025 10:54 AM [facility] Hematocrit, Arterial 21.0(L) 34.0 - 45.0 % 05/30/2025 10:54 AM [facility] Sodium, Arterial 134(L) 136 - 145 mmol/L 05/30/2025 10:54 AM [facility] Potassium, Arterial 5.0(H) 3.6 - 4.9 mmol/L 05/30/2025 10:54 AM [facility] Chloride, Whole Blood 101 97 - 107 mmol/L 05/30/2025 10:54 AM [facility] Glucose, Arterial 185(H) 74 - 99 mg/dL 05/30/2025 10:54 AM [facility] Ionized Calcium, Arterial 3.7(L) 4.6 - 5.1 mg/dL 05/30/2025 10:54 AM [facility] Lactate, Arterial 3.7(H) 0.5 - 1.6 mmol/L 05/30/2025 10:54 AM [facility] Body Temperature 37.0 Celsius 05/30/2025 10:54 AM [facility] pH, Temp Corrected, Arterial 7.49(H) 7.31 - 7.42 05/30/2025 10:54 AM [facility] pCO2, Temp Corrected, Arterial 29(L) 35 - 48 mm Hg 05/30/2025 10:54 AM [facility] pO2, Temp Corrected, Arterial 336 >70 mm Hg 05/30/2025 10:54 AM [facility] Security Assistant ID Liliana Felix 05/30/2025 10:54 AM [facility] Blood, Arterial Whole blood specimen / Unknown 05/27/2025 2:09 PM EDT 05/30/2025 10:54 AM [facility] us Jose C Nicholson MD LAB POINT OF CARE TE ST DOCKED DEVICE UNSOLICITED RESULTS Final Result Performing Organization Address City/[facility]/ZIP Co de Phone Number [facility] [address] [place] [address] * Surgical Pathology Exam (05/27/2025 1:16 PM EDT) Case Report Surgical Pathology Case: [id number] Authorizing Provider: Jose C Nicholson MD Collected: 05/27/2025 1316 Ordering Location: [facility] A OPERATING ROOM Received: 05/28/2025 0741 Pathologist: Christin Armijo MD Specimen: Other (specify site), ascending aortic aneurysm 05/29/2025 4:47 PM EDT [facility] Final Diagnosis A. ASCENDING AORTIC ANEURYSM, REPLACEMENT: - MEDIAL DEGENERATION AND DYSTROPHIC CALCIFICATIONS. 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 ASCENDING AORTIC ANEURYSM Received in formalin labeled ascending aortic aneurysm , is an aggregate of pink-sotomayor vascular tissue, grossly consistent with aorta, measuring 6.7 x 5.5 x 3.4 cm. [employer] sections are submitted in cassette A1. 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] us Jose C Nicholson MD LAB PATHOLOGY ORDERABLES Final Result [facility] [address] [place] [address] * (ABNORMAL) POCT arterial blood gas gem (05/27/2025 12:38 PM EDT) pH, Arterial 7.41 7.31 - 7.42 05/27/2025 12:39 PM T [facility] pCO2, Arterial 32(L) 35 - 48 mm Hg 05/27/2025 12:39 PM T [facility] pO2, Arterial 302 >70 mm Hg 05/27/2025 12:39 PM [facility] SO2, Arterial 98 94 - 98 % 05/27/2025 12:39 PM T [facility] Base Excess, Arterial -3.8(L) -2 - 3 mmol/L 05/27/2025 12:39 PM [facility] HCO3, Arterial 20.3(L) 22 - 26 mmol/L 05/27/2025 12:39 PM [facility] Total Hemoglobin, Arterial, Whole Blood 8.9(L) 11.2 - 15.7 g/dL 05/27/2025 12:39 PM [facility] Hematocrit, Arterial 27.0(L) 34.0 - 45.0 % 05/27/2025 12:39 PM [facility] Sodium, Arterial 134(L) 136 - 145 mmol/L 05/27/2025 12:39 PM [facility] Potassium, Arterial 4.4 3.6 - 4.9 mmol/L 05/27/2025 12:39 PM [facility] Chloride, Whole Blood 100 97 - 107 mmol/L 05/27/2025 12:39 PM [facility] Glucose, Arterial 136(H) 74 - 99 mg/dL 05/27/2025 12:39 PM [facility] Ionized Calcium, Arterial 4.2(L) 4.6 - 5.1 mg/dL 05/27/2025 12:39 PM [facility] Lactate, Arterial 1.7(H) 0.5 - 1.6 mmol/L 05/27/2025 12:39 PM [facility] Body Temperature 37.0 Celsius 05/27/2025 12:39 PM [facility] pH, Temp Corrected, Arterial 7.41 7.31 - 7.42 05/27/2025 12:39 PM T [facility] pCO2, Temp Corrected, Arterial 32(L) 35 - 48 mm Hg 05/27/2025 12:39 PM T [facility] pO2, Temp Corrected, Arterial 302 >70 mm Hg 05/27/2025 12:39 PM EDT [facility] Security Assistant ID Charly Bowens 05/27/2025 12:39 PM EDT [facility] Blood, Arterial Whole blood specimen / Unknown 05/27/2025 12:38 PM EDT 05/27/2025 12:39 PM EDT us Jose C Nicholson MD LAB POINT OF CARE TE ST DOCKED DEVICE UNSOLICITED RESULTS Final Result [facility] [address] [place] [address] * (ABNORMAL) POCT arterial blood gas gem (05/27/2025 12:17 PM EDT) pH, Arterial 7.44(H) 7.31 - 7.42 05/27/2025 12:18 PM EDT [facility] pCO2, Arterial 31(L) 35 - 48 mm Hg 05/27/2025 12:18 PM EDT [facility] pO2, Arterial 329 >70 mm Hg 05/27/2025 12:18 PM EDT [facility] SO2, Arterial 99(H) 94 - 98 % 05/27/2025 12:18 PM EDT [facility] Base Excess, Arterial -2.5(L) -2 - 3 mmol/L 05/27/2025 12:18 PM EDT [facility] HCO3, Arterial 21.1(L) 22 - 26 mmol/L 05/27/2025 12:18 PM EDT [facility] Total Hemoglobin, Arterial, Whole Blood 9.1(L) 11.2 - 15.7 g/dL 05/27/2025 12:18 PM EDT [facility] Hematocrit, Arterial 27.0(L) 34.0 - 45.0 % 05/27/2025 12:18 PM EDT [facility] Sodium, Arterial 133(L) 136 - 145 mmol/L 05/27/2025 12:18 PM EDT [facility] Potassium, Arterial 4.4 3.6 - 4.9 mmol/L 05/27/2025 12:18 PM EDT [facility] Chloride, Whole Blood 101 97 - 107 mmol/L 05/27/2025 12:18 PM EDT [facility] Glucose, Arterial 137(H) 74 - 99 mg/dL 05/27/2025 12:18 PM EDT [facility] Ionized Calcium, Arterial 4.2(L) 4.6 - 5.1 mg/dL 05/27/2025 12:18 PM EDT [facility] Lactate, Arterial 1.8(H) 0.5 - 1.6 mmol/L 05/27/2025 12:18 PM EDT [facility] Body Temperature 37.0 Celsius 05/27/2025 12:18 PM EDT [facility] pH, Temp Corrected, Arterial 7.44(H) 7.31 - 7.42 05/27/2025 12:18 PM EDT [facility] pCO2, Temp Corrected, Arterial 31(L) 35 - 48 mm Hg 05/27/2025 12:18 PM EDT [facility] pO2, Temp Corrected, Arterial 329 >70 mm Hg 05/27/2025 12:18 PM EDT [facility] Security Assistant ID Liliana Felix 05/27/2025 12:18 PM EDT [facility] Blood, Arterial Whole blood specimen / Unknown 05/27/2025 12:17 PM EDT 05/27/2025 12:18 PM EDT us Jose C Nicholson MD LAB POINT OF CARE TE ST DOCKED DEVICE UNSOLICITED RESULTS Final Result [facility] [address] [place] [id number] * (ABNORMAL) POCT arterial blood gas gem (05/27/2025 11:42 AM EDT) pH, Arterial 7.42 7.31 - 7.42 05/27/2025 11:44 AM EDT [facility] pCO2, Arterial 34(L) 35 - 48 mm Hg 05/27/2025 11:44 AM EDT [facility] pO2, Arterial 346 >70 mm Hg 05/27/2025 11:44 AM EDT [facility] SO2, Arterial 98 94 - 98 % 05/27/2025 11:44 AM EDT [facility] Base Excess, Arterial -2.0 -2 - 3 mmol/L 05/27/2025 11:44 AM [facility] HCO3, Arterial 22.1 22 - 26 mmol/L 05/27/2025 11:44 AM [facility] Total Hemoglobin, Arterial, Whole Blood 8.7(L) 11.2 - 15.7 g/dL 05/27/2025 11:44 AM [facility] Hematocrit, Arterial 26.0(L) 34.0 - 45.0 % 05/27/2025 11:44 AM [facility] Sodium, Arterial 133(L) 136 - 145 mmol/L 05/27/2025 11:44 AM [facility] Potassium, Arterial 4.3 3.6 - 4.9 mmol/L 05/27/2025 11:44 AM [facility] Chloride, Whole Blood 100 97 - 107 mmol/L 05/27/2025 11:44 AM [facility] Glucose, Arterial 143(H) 74 - 99 mg/dL 05/27/2025 11:44 AM [facility] Ionized Calcium, Arterial 4.3(L) 4.6 - 5.1 mg/dL 05/27/2025 11:44 AM [facility] Lactate, Arterial 1.7(H) 0.5 - 1.6 mmol/L 05/27/2025 11:44 AM [facility] Body Temperature 37.0 Celsius 05/27/2025 11:44 AM [facility] pH, Temp Corrected, Arterial 7.42 7.31 - 7.42 05/27/2025 11:44 AM [facility] pCO2, Temp Corrected, Arterial 34(L) 35 - 48 mm Hg 05/27/2025 11:44 AM [facility] pO2, Temp Corrected, Arterial 346 >70 mm Hg 05/27/2025 11:44 AM [facility] Security Assistant ID Liliana Felix 05/27/2025 11:44 AM [facility] Blood, Arterial Whole blood specimen / Unknown 05/27/2025 11:42 AM EDT 05/27/2025 11:44 AM EDT Jose C Nicholson MD LAB POINT OF CARE TE ST DOCKED DEVICE UNSOLICITED RESULTS Final Result [facility] [address] [place] [id number] * Transfuse RBC (05/27/2025 11:18 AM EDT) us Miguel Ángel Malave MD BLOOD TRANSFUSION ORDERABLE S Final Result * (ABNORMAL) POCT arterial blood gas gem (05/27/2025 11:15 AM EDT) pH, Arterial 7.54(H) 7.31 - 7.42 05/27/2025 11:27 AM EDT [facility] pCO2, Arterial 26(L) 35 - 48 mm Hg 05/27/2025 11:27 AM EDT [facility] pO2, Arterial 379 >70 mm Hg 05/27/2025 11:27 AM EDT [facility] SO2, Arterial 97 94 - 98 % 05/27/2025 11:27 AM EDT [facility] Base Excess, Arterial -0.2 -2 - 3 mmol/L 05/27/2025 11:27 AM EDT [facility] HCO3, Arterial 22.2 22 - 26 mmol/L 05/27/2025 11:27 AM EDT [facility] Total Hemoglobin, Arterial, Whole Blood 6.7(L) 11.2 - 15.7 g/dL 05/27/2025 11:27 AM EDT [facility] Hematocrit, Arterial 20.0(L) 34.0 - 45.0 % 05/27/2025 11:27 AM EDT [facility] Sodium, Arterial 132(L) 136 - 145 mmol/L 05/27/2025 11:27 AM EDT [facility] Potassium, Arterial 5.0(H) 3.6 - 4.9 mmol/L 05/27/2025 11:27 AM EDT [facility] Chloride, Whole Blood 101 97 - 107 mmol/L 05/27/2025 11:27 AM EDT [facility] Glucose, Arterial 126(H) 74 - 99 mg/dL 05/27/2025 11:27 AM EDT [facility] Ionized Calcium, Arterial 4.0(L) 4.6 - 5.1 mg/dL 05/27/2025 11:27 AM EDT [facility] Lactate, Arterial 1.1 0.5 - 1.6 mmol/L 05/27/2025 11:27 AM EDT [facility] Body Temperature 37.0 Celsius 05/27/2025 11:27 AM EDT [facility] pH, Temp Corrected, Arterial 7.54(H) 7.31 - 7.42 05/27/2025 11:27 AM EDT [facility] pCO2, Temp Corrected, Arterial 26(L) 35 - 48 mm Hg 05/27/2025 11:27 AM EDT [facility] pO2, Temp Corrected, Arterial 379 >70 mm Hg 05/27/2025 11:27 AM EDT [facility] Security Assistant ID Liliana Felix 05/27/2025 11:27 AM EDT [facility] Blood, Arterial Whole blood specimen / Unknown 05/27/2025 11:15 AM EDT 05/27/2025 11:27 AM EDT Jose C Nicholson MD LAB POINT OF CARE TE ST DOCKED DEVICE UNSOLICITED RESULTS Final Result [facility] [address] [place] [address] * POCT ACT (05/27/2025 10:00 AM EDT) ACT+ (HIGH RANGE) 523 68 - 600 Seconds 06/14/2025 3:51 AM EDT [facility] Security Assistant ID Liliana Felix 06/14/2025 3:51 AM EDT [facility] ACT Device ID [id number] 06/14/2025 3:51 AM EDT [facility] Comment 06/14/2025 3:51 AM EDT [facility] Comment: ACT performed by staff at [...] 10:00 AM EDT 06/14/2025 3:51 AM EDT Jose C Nicholson MD LAB POINT OF CARE TE ST DOCKED DEVICE UNSOLICITED RESULTS Final Result [facility] [address] [place], [place] [id number] [place] [address] LAB [address] [place] [address] * Transfuse RBC (05/27/2025 9:25 AM EDT) us Miguel Ángel Malave MD BLOOD TRANSFUSION ORDERABLE S Final Result * (ABNORMAL) POCT arterial blood gas gem (05/27/2025 9:24 AM EDT) pH, Arterial 7.44(H) 7.31 - 7.42 05/27/2025 9:25 AM EDT [facility] pCO2, Arterial 36 35 - 48 mm Hg 05/27/2025 9:25 AM EDT [facility] pO2, Arterial 229 >70 mm Hg 05/27/2025 9:25 AM EDT [facility] SO2, Arterial 98 94 - 98 % 05/27/2025 9:25 AM EDT [facility] Base Excess, Arterial 0.5 -2 - 3 mmol/L 05/27/2025 9:25 AM EDT [facility] HCO3, Arterial 24.5 22 - 26 mmol/L 05/27/2025 9:25 AM EDT [facility] Total Hemoglobin, Arterial, Whole Blood 10.2(L) 11.2 - 15.7 g/dL 05/27/2025 9:25 AM EDT [facility] Hematocrit, Arterial 31.0(L) 34.0 - 45.0 % 05/27/2025 9:25 AM EDT [facility] Sodium, Arterial 136 136 - 145 mmol/L 05/27/2025 9:25 AM EDT [facility] Potassium, Arterial 3.2(L) 3.6 - 4.9 mmol/L 05/27/2025 9:25 AM EDT [facility] Chloride, Whole Blood 104 97 - 107 mmol/L 05/27/2025 9:25 AM EDT [facility] Glucose, Arterial 114(H) 74 - 99 mg/dL 05/27/2025 9:25 AM EDT [facility] Ionized Calcium, Arterial 5.1 4.6 - 5.1 mg/dL 05/27/2025 9:25 AM EDT [facility] Lactate, Arterial 0.5 0.5 - 1.6 mmol/L 05/27/2025 9:25 AM EDT [facility] Body Temperature 37.0 Celsius 05/27/2025 9:25 AM EDT [facility] pH, Temp Corrected, Arterial 7.44(H) 7.31 - 7.42 05/27/2025 9:25 AM EDT [facility] pCO2, Temp Corrected, Arterial 36 35 - 48 mm Hg 05/27/2025 9:25 AM EDT [facility] pO2, Temp Corrected, Arterial 229 >70 mm Hg 05/27/2025 9:25 AM EDT [facility] Security Assistant ID Liliana Felix 05/27/2025 9:25 AM EDT [facility] Blood, Arterial Whole blood specimen / Unknown 05/27/2025 9:24 AM EDT 05/27/2025 9:25 AM EDT Jose C Nicholson MD LAB POINT OF CARE TE ST DOCKED DEVICE UNSOLICITED RESULTS Final Result [facility] [address] [place] [address] * (ABNORMAL) POCT ACT (05/27/2025 9:21 AM EDT) ACT+ (HIGH RANGE) >600(H) 68 - 600 Seconds 06/14/2025 3:51 AM EDT [facility] Security Assistant ID Liliana Felix 06/14/2025 3:51 AM EDT [facility] ACT Device ID [id number] 06/14/2025 3:51 AM EDT [facility]ALTH[facility] Comment 06/14/2025 3:51 AM EDT [facility] Comment: ACT performed by staff at [...] ST DOCKED DEVICE UNSOLICITED RESULTS Final Result [facility] [address] LAB [address] [place] [address] * (ABNORMAL) POCT arterial blood gas gem (05/27/2025 7:18 AM EDT) pH, Arterial 7.41 7.31 - 7.42 05/27/2025 7:19 AM EDT [facility] pCO2, Arterial 43 35 - 48 mm Hg 05/27/2025 7:19 AM EDT [facility] pO2, Arterial 62(L) >70 mm Hg 05/27/2025 7:19 AM EDT [facility] SO2, Arterial 91(L) 94 - 98 % 05/27/2025 7:19 AM EDT [facility] Base Excess, Arterial 2.3 -2 - 3 mmol/L 05/27/2025 7:19 AM EDT [facility] HCO3, Arterial 27.3(H) 22 - 26 mmol/L 05/27/2025 7:19 AM EDT [facility] Total Hemoglobin, Arterial, Whole Blood 11.1(L) 11.2 - 15.7 g/dL 05/27/2025 7:19 AM EDT [facility] Hematocrit, Arterial 33.0(L) 34.0 - 45.0 % 05/27/2025 7:19 AM EDT [facility] Sodium, Arterial 136 136 - 145 mmol/L 05/27/2025 7:19 AM EDT [facility] Potassium, Arterial 3.7 3.6 - 4.9 mmol/L 05/27/2025 7:19 AM EDT [facility] Chloride, Whole Blood 101 97 - 107 mmol/L 05/27/2025 7:19 AM EDT [facility] Glucose, Arterial 96 74 - 99 mg/dL 05/27/2025 7:19 AM EDT [facility] Ionized Calcium, Arterial 5.3(H) 4.6 - 5.1 mg/dL 05/27/2025 7:19 AM EDT [facility] Lactate, Arterial 0.9 0.5 - 1.6 mmol/L 05/27/2025 7:19 AM EDT [facility] Body Temperature 37.0 Celsius 05/27/2025 7:19 AM EDT [facility] pH, Temp Corrected, Arterial 7.41 7.31 - 7.42 05/27/2025 7:19 AM EDT [facility] pCO2, Temp Corrected, Arterial 43 35 - 48 mm Hg 05/27/2025 7:19 AM EDT [facility] pO2, Temp Corrected, Arterial 62(L) >70 mm Hg 05/27/2025 7:19 AM EDT [facility] Security Assistant ID Miguel Ángel Rowe 05/27/2025 7:19 AM EDT [facility] Blood, Arterial Whole blood specimen / Unknown 05/27/2025 7:18 AM EDT 05/27/2025 7:19 AM EDT us Jose C Nicholson MD LAB POINT OF CARE TE ST DOCKED DEVICE UNSOLICITED RESULTS Final Result Performing Organization Address City/State/[facility] Co de Phone Number [facility] [address] [place] [address] * QPLUS (05/27/2025 7:17 AM EDT) Clot Time 129 104 - 166 Seconds 05/27/2025 7:31 AM EDT [facility] Clot Time Ratio 1.0 0.8 [...] - 29.8 hectoPascals 05/27/2025 7:31 AM EDT [facility] Fibrinogen Contribution to Clot Stiffness 2.6 1.0 - 3.7 hectoPascals 05/27/2025 7:31 AM EDT [facility] Heparinase Clot Time 130 103 - 153 Seconds 05/27/2025 7:31 AM EDT [facility] Security Assistant ID Gurpreet Arzola 05/27/2025 7:31 AM EDT [facility] Device ID [id number] 05/27/2025 7:31 AM EDT [facility] Whole Blood 05/27/2025 7:17 AM EDT 05/27/2025 7:31 AM EDT us Jose C Nicholson MD LAB POINT OF CARE TE ST DOCKED DEVICE UNSOLICITED RESULTS Final Result Performing Organization Address City/[facility]/ZIP Co de Phone Number [facility]ALTHCARE LAB [address] [place] [address] * TEG Global Hemostasis with Lysis (05/27/2025 7:16 AM EDT) R, Lysis 5.0 4.6 - 9.1 min 05/27/2025 8:20 AM EDT [facility] MA, Rapid, Lysis 64.6 52.0 - 70.0 mm 05/27/2025 8:20 AM EDT [facility] MA, Fibrinogen, Lysis 19.6 15.0 - 32.0 mm 05/27/2025 8:20 AM EDT [facility] LY30 0.3 0.0 - 2.6 % 05/27/2025 8:20 AM EDT [facility] Blood Arterial blood specimen / Unknown 05/27/2025 7:16 AM EDT 05/27/2025 7:23 AM EDT Comment: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] us Jose C Nicholson MD LAB BLOOD ORDERABLES Final Resu lt [facility] [address] [place] [address] * Fibrinogen, Quantitative (Clottable) (05/27/2025 7:16 AM EDT) Fibrinogen, Quantitative (Clottable) 352 208 - 459 mg/dL LAB COAGULATION METHOD 05/27/2025 7:51 AM EDT [facility] Blood Arterial blood specimen / Unknown 05/27/2025 7:16 AM EDT 05/27/2025 7:24 AM EDT Comment: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] us Jose C Nicholson MD LAB BLOOD ORDERABLES Final Resu lt [facility] [address] [place] [address] * (ABNORMAL) CBC and Differential (05/27/2025 7:16 AM EDT) WBC Count 7.47 3.70 - 10.30 10*3/uL LAB HEMATOLOGY METHOD 05/27/2025 7:37 AM EDT [facility] RBC Count 3.90 3.90 - 5.20 10*6/uL LAB HEMATOLOGY METHOD 05/27/2025 7:37 AM EDT [facility] HGB 11.3 11.2 - 15.7 g/dL LAB HEMATOLOGY METHOD 05/27/2025 7:37 AM EDT [facility] HCT 34.2 34.0 - 45.0 % LAB HEMATOLOGY METHOD 05/27/2025 7:37 AM EDT [facility] Platelet Count 209 155 - 369 10*3/uL LAB HEMATOLOGY METHOD 05/27/2025 7:37 AM EDT [facility] MCV 88 79 - 98 fL LAB HEMATOLOGY METHOD 05/27/2025 7:37 AM EDT [facility] MCH 29.0 26.0 - 32.0 pg LAB HEMATOLOGY METHOD 05/27/2025 7:37 AM EDT [facility] MCHC 33.0 30.7 - 35.5 g/dL LAB HEMATOLOGY METHOD 05/27/2025 7:37 AM EDT [facility] RDW 14.6(H) 11.5 - 14.5 % LAB HEMATOLOGY METHOD 05/27/2025 7:37 AM EDT [facility] MPV 11.2 8.8 - 12.5 fL LAB HEMATOLOGY METHOD 05/27/2025 7:37 AM EDT [facility] nRBC 0.0 <=0.0 per 100 WBCs LAB HEMATOLOGY METHOD 05/27/2025 7:37 AM EDT [facility] Differential Type Automated LAB HEMATOLOGY METHOD 05/27/2025 7:37 AM EDT [facility] Neutrophils % 65 % LAB HEMATOLOGY METHOD 05/27/2025 7:37 AM EDT [facility] Lymphocytes % 23 % LAB HEMATOLOGY METHOD 05/27/2025 7:37 AM EDT [facility] Monocytes % 8 % LAB HEMATOLOGY METHOD 05/27/2025 7:37 AM EDT [facility] Eosinophils % 3 % LAB HEMATOLOGY METHOD 05/27/2025 7:37 AM EDT [facility] Basophils % 1 % LAB HEMATOLOGY METHOD 05/27/2025 7:37 AM EDT [facility] Immature Granulocytes % 0 % LAB HEMATOLOGY METHOD 05/27/2025 7:37 AM EDT [facility] Neutrophils Absolute 4.82 1.60 - 6.10 10*3/uL LAB HEMATOLOGY METHOD 05/27/2025 7:37 AM EDT [facility] Lymphocytes Absolute 1.74 1.20 - 3.90 10*3/uL LAB HEMATOLOGY METHOD 05/27/2025 7:37 AM EDT [facility] Monocytes Absolute 0.61 0.30 - 0.90 10*3/uL LAB HEMATOLOGY METHOD 05/27/2025 7:37 AM EDT [facility] Eosinophils Absolute 0.23 0.00 - 0.50 10*3/uL LAB HEMATOLOGY METHOD 05/27/2025 7:37 AM EDT [facility] Basophils Absolute 0.04 0.00 - 0.10 10*3/uL LAB HEMATOLOGY METHOD 05/27/2025 7:37 AM EDT [facility] Immature Granulocytes Absolute 0.03 0.00 - 0.06 10*3/uL LAB HEMATOLOGY METHOD 05/27/2025 7:37 AM EDT [facility] Blood Arterial blood specimen / Unknown 05/27/2025 7:16 AM EDT 05/27/2025 7:26 AM EDT Comment: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 05/27/2025 7:37 AM EDT Therapeutic decision making should be based on absolute values, rather than percentages. us Jose C Nicholson MD LAB BLOOD ORDERABLES Final Resu lt Performing Organization Address City/[facility]/ZIP Co de Phone Number [facility] [address] [place] [address] * POCT ACT (05/27/2025 7:14 AM EDT) ACT+ (HIGH RANGE) 120 68 - 600 Seconds 06/14/2025 3:51 AM EDT [facility]ALTH[facility] Security Assistant ID Joaquin Guardado 06/14/2025 3:51 AM EDT [facility]ALTH[facility] ACT Device ID [id number] 06/14/2025 3:51 AM EDT [facility] Comment 06/14/2025 3:51 AM EDT [facility] Comment: ACT performed by staff at [...] RESULTS Final Result Performing Organization Address [facility] Co de Phone Number [facility] [address] LAB [address] [place] [address] * Prepare Fresh Frozen Plasma: 2 Units (05/27/2025 7:08 AM EDT) Product Code W2823Y04 [facility] D [facility] Dispense Status Transfused [facility] BLOOD BANK Blood Expiration Date [id number] BLOOD BANK Unit Number [id number] [facility] B LOOD BANK Product Blood Type 6200 BLOOD BANK Blood Type A+ CH BLOOD B[facility] Product Code [id number] [facility] Dispense Status Transfused CH BLOOD BANK Blood Expiration Date [id number] BLOOD BANK Unit Number [id number] [facility] B LOOD BANK Product Blood Type 6200 [facility] BLOOD BANK Blood Type A+ [facility] BLOOD BANK Blood Venous blood specimen / Unknown us Jose C Nicholson MD BLOOD BANK PRODUCT ORDERABLES E dited Result - Final BLOOD BANK [address] [place] [address], [place] * Prepare Leukocyte Reduced RBC: 4 Units (05/27/2025 7:08 AM EDT) Product Code [id number] [facility] Dispense Status Transfused CH BLOOD BANK Blood Expiration Date [id number] BLOOD BANK Unit Number [id number] [facility] B LOOD BANK Product Blood Type 6200 [facility] BLOOD BANK Blood Type A+ CH BLOOD BANK Crossmatch Compatible CH BLOOD BANK Product Code [id number] [facility] D [facility]ANK Dispense Status Transfused CH BLOOD BANK Blood Expiration Date [id number] BLOOD BANK Unit Number [id number] [facility] B LOOD BANK Product Blood Type 6200 [facility] BLOOD BANK Blood Type A+ CH BLOOD BANK Crossmatch Compatible CH BLOOD BANK Product Code [id number] [facility] BLOO D BANK Dispense Status Transfused CH BLOOD BANK Blood Expiration Date [id number] BLOOD BANK Unit Number [id number] [facility] B LOOD BANK Product Blood Type 6200 CH BLOOD BANK Blood Type A+ CH BLOOD BANK Crossmatch Compatible CH BLOOD BANK Product Code [id number] BLOO D BANK Dispense Status Transfused CH BLOOD BANK Blood Expiration Date [id number] BLOOD BANK Unit Number [id number] [facility] B LOOD BANK Product Blood Type 6200 BLOOD BANK Blood Type A+ CH BLOOD BANK Crossmatch Compatible BLOOD BANK Other us Jose C Nicholson MD BLOOD BANK PRODUCT ORDERABLES F inal Result BLOOD BANK [address] [place] [address], [place] * Type and Screen (05/27/2025 6:28 AM [...] LAB BLOOD BANK TEST ORDERABLES Final Result BLOOD BANK [address] [place] [address], documented in this encounter Visit Diagnoses Diagnosis [...] 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) BMI 25.0-25.9,adult COPD (chronic obstructive pulmonary disease) Chronic airway obstruction, not elsewhere classified 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) documented in this encounter Admitting Diagnoses Diagnosis 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) documented in this encounter Administered Medications Inactive Administered Medications - up to 3 most recent administrations Medication Order MAR Action Action Date Dose Rate Site ALPRAZolam (Xanax) tablet 0.25 mg 0.25 mg, [...] Given 06/06/2025 11:53 AM EDT 5 mg atorvastatin (Lipitor) tablet 20 mg 20 mg, Oral, Nightly, First dose (after last modification) on Mon06/03/25 at 2100, Until Discontinued, Routine Given 06/06/2025 8:24 PM EDT 20 mg Given 06/04/2025 8:09 PM EDT 20 mg Given 06/03/2025 8:24 PM EDT 20 mg bisacodyl (Dulcolax) suppository 10 mg 10 mg, Rectal, Daily PRN, Starting on Mon06/03/25 at 0918, Until Mon06/07/25 at 1412, Routine, constipation, first line agent if no bowel movement for 48h ceFAZolin (Ancef) injection As needed, Starting on Mon05/27/25 at 0834, Until Mon05/27/25 at 1827, Routine, Intraprocedure Given 05/27/2025 8:34 AM EDT 1 g clopidogrel (Plavix) tablet 75 mg 75 mg, Oral, Daily, First dose (after last modification) on Mon06/04/25 at 0900, Until Discontinued, Routine Given 06/07/2025 8:12 AM EDT 75 mg Given 06/06/2025 8:06 AM EDT 75 mg Given 06/05/2025 8:38 AM EDT 75 mg docusate sodium (Colace) capsule 100 mg 100 mg, Oral, 2 times daily, First dose on Mon06/03/25 at 2100, Until Discontinued, Routine Given 06/07/2025 8:12 AM EDT 100 mg Given 06/06/2025 8:22 PM EDT 100 mg Given 06/06/2025 8:06 AM EDT 100 mg furosemide (Lasix) tablet 20 mg 20 mg, Oral, Daily, First dose (after last modification) on Mon06/04/25 at 0900, Until Discontinued, Routine Given 06/07/2025 8:24 AM EDT 20 mg Given 06/06/2025 8:06 AM EDT 20 mg Given 06/05/2025 8:38 AM EDT 20 mg HYDROcodone-acetaminophen ([place]) 5-325 MG per tablet 10 mg of hydrocodone 10 mg of hydrocodone, Oral, Every 6 hours PRN, Starting on Mon06/02/25 at 1144, Until 06/07/25 at 1412, Routine, severe pain Given 06/05/2025 1:24 PM EDT 10 mg of hydrocodone Given 06/05/2025 5:37 AM EDT 10 mg of hydrocodone Given 06/04/2025 2:22 PM EDT 10 mg of hydrocodone HYDROcodone-acetaminophen ([place]) 5-325 MG per tablet 5 mg of hydrocodone 5 mg of hydrocodone, Oral, Every 6 hours PRN, Starting on Mon06/02/25 at 1144, Until 06/07/25 at 1412, Routine, moderate pain Given 06/07/2025 10:36 AM EDT 5 mg of hydrocodone Given 06/06/2025 8:28 PM EDT 5 mg of hydrocodone Given 06/06/2025 12:39 PM EDT 5 mg of hydrocodone hydrOXYzine pamoate (Vistaril) capsule 25 mg 25 mg, Oral, Every 6 hours PRN, Starting on Mon05/28/25 at 0833, Until 06/07/25 at 1412, Routine, anxiety Given 05/30/2025 11:09 PM EDT 25 mg Given 05/29/2025 3:14 PM EDT 25 mg Given 05/29/2025 8:15 AM EDT 25 mg ipratropium-albuterol (Duo-Neb) 0.5-2.5 mg/3 mL nebulizer solution [...] Intravenous, Every 4 hours PRN, Starting on [facility] 06/05/25 at 2228, Until 06/07/25 at 1412, Routine, high blood pressure, SBP>140 Given 06/05/2025 11:58 PM EDT 10 mg labetalol (Normodyne,Trandate) injection 20 mg 20 mg, Intravenous, Every 4 hours PRN, Starting on [facility] 06/05/25 at 2229, Until 06/07/25 at 1412, Routine, high blood pressure, sbp >160 metoprolol tartrate (Lopressor) tablet 25 mg 25 mg, Oral, 2 times daily, First dose (after last modification) on [facility] 06/05/25 at 2100, Until Discontinued, Routine Given 06/07/2025 8:12 AM EDT 25 mg Given 06/06/2025 8:24 PM EDT 25 mg Given 06/06/2025 8:06 AM EDT 25 mg PARoxetine (Paxil) tablet 20 mg 20 mg, Oral, Daily, First dose (after last modification) on Mon06/04/25 at 0900, Until Discontinued, Routine Given 06/07/2025 8:12 AM EDT 20 mg Given 06/06/2025 8:06 AM EDT 20 mg Given 06/05/2025 8:38 AM EDT 20 mg phosphorus (K Phos Neutral) tablet 1 tablet 1 tablet, Oral, Every 8 hours, 3 doses, First dose on [facility] 06/07/25 at 0615, Last dose on Mon06/07/25 at 2215, Routine Given 06/07/2025 5:37 AM EDT 1 table t polyethylene glycol (Miralax) packet 17 g 17 g, Oral, Daily, First dose (after last modification) on Mon06/04/25 at 0900, Until Discontinued, Routine, Recovery(Phase II-Outpatient)/On Unit(Inpatient) Given 06/07/2025 8:12 AM EDT 17 g Given 06/04/2025 9:19 AM EDT 17 g senna (Senokot) tablet 17.2 mg 17.2 mg, Oral, Nightly, First dose (after last modification) on Mon06/03/25 at 2100, Until Discontinued, Routine, Recovery(Phase II-Outpatient)/On Unit(Inpatient) Given 06/06/2025 8:22 PM EDT 17.2 mg Given 06/03/2025 8:26 PM EDT 17.2 mg sodium phosphate (Fleet) enema 133 mL 133 mL (1 enema), Rectal, Once as needed, 1 dose, Starting on Mon06/03/25 at 0919, Until Mon06/07/25 at 1412, Routine, second line agent for constipation if no bowel movement in 72h thrombin (recombinant) (Recothrom) topical solution As needed, Starting on Mon05/27/25 at 0834, Until Mon05/27/25 at 1827, Routine Given 05/27/2025 4:14 PM E DT 10,000 Units Given 05/27/2025 4:00 PM EDT 20,000 Units Given 05/27/2025 8:34 AM EDT 10,000 Units documented in this encounter Active and Recently Administered Medications Times are shown in EDT. Scheduled Medication Order 06/05/2025 06/06/2025 06/07/2025 ALPRAZolam (Xanax) tablet 0.25 mg 0.25 mg, Oral, 2 times daily, First dose (after last modification) on Mon06/03/25 at 2100, Until Discontinued, Routine 0940 (Return to Cabinet - Provider: Selin Daily RN)2250 (Not Given - Provider: Lenin Portillo - Reason: Hold for condition: must add comment - Comment: patient transferred to CVICU held per TRISTAN Bhatt) 0807 (Not Given - Provider: Ginny Damon RN - Reason: Patient/family refused)2021 (Given - Provider: Lenin Portillo) 08 (Given - Provider: Ca Burr, ABHILASH) apixaban (Eliquis) tablet 5 mg 5 mg, [...] Routine 0838 (Given - Provider: Selin Daily, ABHILASH) 08 (Given - Provider: Ginny Damon RN) 0812 (Given - Provider: Ca Burr RN) docusate sodium (Colace) capsule 100 mg 100 mg, Oral, 2 times daily, First dose on Mon06/03/25 at 2100, Until Discontinued, Routine 0940 (Not Given - Provider: Selin Daily, ABHILASH - Reason: Patient/family refused)225 (Not Given - Provider: Lenin Portillo - Reason: Hold for condition: must add comment - Comment: patient transferred to CVICU held per TRISTAN Bhatt) 08 (Given - Provider: Ginny Damon RN)2021 (Given - Provider: Lenin Portillo) 08 (Given - Provider: Ca Burr RN) enoxaparin (Lovenox) syringe 40 mg (CANCELED) 40 mg, Subcutaneous, Daily, First dose on Mon06/01/25 at 1145, Until Discontinued, Routine 0838 (Given - Provider: Selin Daily, RN) 0806 (Given - Provider: Ginny Damon, ABHILASH) furosemide (Lasix) tablet 20 mg 20 mg, Oral, Daily, First dose (after last modification) on Mon06/04/25 at 0900, Until Discontinued, Routine 0838 (Given - Provider: Selin Daily RN) 0806 (Given - Provider: Ginny Damon, ABHILASH) 0824 (Given - Provider: Ca Burr RN - Comment: barcode broken) iohexol (OMNIPaque) 350 [...] Provider: Precious Downs)1556 (Given - Provider: Precious Downs)205 (Not Given - Provider: Sharonda Griffin - Reason: Patient/family refused) 004 (Not Given - Provider: Sharonda Griffin - Reason: Patient/family refused)0917 (Not Given - Provider: Lazarus Oleary - Reason: Patient/family refused)1136 (Canceled Entry - Provider: Lazarus Oleary)1627 (Canceled Entry - Provider: Lazarus Oleary)2020 (Given - Provider: Sharonda Griffin) 0044 (Not Given - Provider: Sharonda Griffin - Reason: Hold for condition: must add comment - Comment: sleeping)0900 (Given - Provider: Bee Jennings)1200 (Canceled Entry - Provider: Automatic Discharge Provider - Comment: Automatically canceled at discontinue of medication order) Nick powder 1 packet 1 packet, Oral, 2 times daily, First dose on Mon06/04/25 at 2100, Until Discontinued, Routine 0940 (Given - Provider: Selin Daily, RN)2251 (Not Given - Provider: Lenin Portillo - Reason: Hold for condition: must add comment - Comment: patient transferred to CVICU held per DOLLY PUSHER Miller) 08 (Given - Provider: Ginny Damon, RN)2035 (Not Given - Provider: Lenin Portillo - Reason: Patient/family refused) 08 (Given - Provider: Ca Burr, RN) magnesium sulfate IVPB 2 g (COMPLETED) 2 g, Intravenous, Once, 1 dose, On Mon06/06/25 at 0000, Routine 2314 (New Bag - Provider: Lenin Portillo) metoprolol tartrate (Lopressor) split tablet 37.5 mg (CANCELED) 37.5 mg, Oral, 2 times daily, First dose (after last modification) on Mon06/03/25 at 2100, Until Discontinued, Routine 0838 (Given - Provider: Selin Daily, ABHILASH) metoprolol tartrate (Lopressor) tablet 25 mg 25 mg, Oral, 2 times daily, First dose (after last modification) on Mon06/05/25 at 2100, Until Discontinued, Routine 2251 (Not Given - Provider: Lenin Portillo - Reason: Hold for condition: must add comment - Comment: patient transferred to CVICU held per DOLLY PUSHER Miller) 08 (Given - Provider: Ginny Damon RN)2023 (Given - Provider: Lenin Portillo) 0812 (Given - Provider: Ca Burr, ABHILASH) ondansetron (Zofran) injection 4 mg (COMPLETED)(Linked Group 1) 4 mg, Intravenous, Once, 1 dose, On Mon06/05/25 at 2200, Routine 2236 (Given - Provider: Lenin Portillo) PARoxetine (Paxil) tablet 20 mg 20 mg, Oral, Daily, First dose (after last modification) on Mon06/04/25 at 0900, Until Discontinued, Routine 0838 (Given - Provider: Selin Daily RN) 0806 (Given - Provider: Ginny Damon, RN) 0812 (Given - Provider: Ca Burr, ABHILASH) phosphorus (K Phos Neutral) tablet 1 tablet 1 tablet, Oral, Every 8 hours, 3 doses, First dose on Mon06/07/25 at 0615, Last dose on Mon06/07/25 at 2215, Routine 0537 (Given - Provid er: Ruby aPn) polyethylene glycol (Miralax) packet 17 g 17 g, Oral, Daily, First dose (after last modification) on Mon06/04/25 at 0900, Until Discontinued, Routine, Recovery(Phase II-Outpatient)/On Unit(Inpatient) 0940 (Not Given - Provider: Selin Daily RN - Reason: Patient/family refused) 0807 (Not Given - Provider: Ginny Damon RN - Reason: Patient/family refused) 0812 (Given - Provider: Ca Burr, AHBILASH) potassium chloride CR (Klor-Con) ER tablet 20 [...] 0300, Routine 2314 (New Bag - Provider: Lnein Portillo) 0114 (New Bag - Provider: Lenin [...] Every 6 hours PRN, Starting on Marian 06/05/25 at 0946, Until 06/06/25 at 1012, Routine, headaches 1146 (Given - Provider: Selin Daily, ABHILASH) bisacodyl (Dulcolax) suppository 10 mg 10 mg, Rectal, Daily PRN, Starting on Tu06/03/25 at 0918, Until 06/07/25 at 1412, Routine, constipation, first line agent if no bowel movement for 48h HYDROcodone-acetaminop hen ([place]) 5-325 MG per tablet 10 mg of hydrocodone(Linked Group 3) 10 mg of hydrocodone, Oral, Every 6 hours PRN, Starting on 06/02/25 at 1144, Until 06/07/25 at 1412, Routine, severe pain 0537 (Given - Provider: Rosaline Gibbons RN)1324 (Given - Provider: Selin Daily, ABHILASH)223 (Return to [facility] - Provider: Yanet Hilliard, ABHILASH) 1239 (See Alternative - Provider: Ginny Damon, ABHILASH)2027 (See Alternative - Provider: Lenin Portillo) 1036 (See Alternative - Provider: Ca Burr RN) HYDROcodone-acetaminop hen ([place]) 5-325 MG per tablet 5 mg of hydrocodone(Linked Group 3) 5 mg of hydrocodone, Oral, Every 6 hours PRN, Starting on 06/02/25 at 1144, Until 06/07/25 at 1412, Routine, moderate pain 0537 (See Alternative - Provider: Rosaline M Gibbons, RN)1324 (See Alternative - Provider: Selin Daily, RN)223 (See Alternative - Provider: Yanet Hilliard, RN) 1239 (Given - Provider: Ginny Damon, ABHILASH)2027 (Given - Provider: Lenin Portillo) 1036 (Given - Provider: Ca Burr, ABHILASH) hydrOXYzine pamoate (Vistaril) capsule 25 mg 25 [...] blood pressure, SBP>140 2358 (Given - Provider: Lenni Portillo) labetalol (Normodyne,Trandate) injection 20 mg 20 [...] Once as needed, 1 dose, Starting on Mon06/03/25 at 0919, Until 06/07/25 at 1412, Routine, [...] 06/07/25 at 0730, Routine Group 3: HYDROcodone-acetaminophen ([place]) 5-325 MG per tablet 5 mg of hydrocodoneJump to med 5 mg of hydrocodone, Oral, Every 6 hours PRN, Starting on 06/02/25 at 1144, Until 06/07/25 at 1412, Routine, moderate pain Or HYDROcodone-acetaminophen ([place]) 5-325 MG per tablet 10 mg of [...] documented as of this encounter Care Teams Terminal Gauger Relationship Specialty Start Date End Date Edwardo Sheehan MD [address] [place] [address] PCP - General 12/19/22 Jose R Umana MD [address] [facility] [address] [place] [address] Referring Physician Cardiology 01/23/25 [place] [address] [place] [address] [address] [place] [address] Referring Physician 01/31/25 documented as of this encounter
--- OUTSIDE RECORDS SUMMARY | 2025-06-16 09:03 | XMS_ITS | Encounter Summary ---
Author Organization Healthcare Address [address] 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 Patient declined 03/14/2025 Do you belong to any clubs o r organizations such as scientology groups, unions, fraternal or athletic groups, or [...] drinks on one occasion? Patient declined 03/14/2025 [facility] Occupat ional Health - Occupational Stress Questionnaire [...] Description 06/25/2025 9:45 AM EDT Office Visit [facility] Cardiothoracic [address] [facility] [address] [place] [address] Jose C Nicholson MD [address] [facility] [address] [place] [address] 08/07/2025 12:20 PM EST Appointment [facility] Radiology [address] [place] [address] 08/07/2025 1:40 PM EST Office Visit [facility] Comprehensive Vascular Clinic [address] [facility] [address]th Floor [address] [place] [address] Cedrick Franz MD [address] [facility] [address] [place] [address] documented as of this encounter Visit Diagnoses Not on filedocumented in this encounter Additional Health Concerns Assessment Noted Time A fall risk assessment has been complete d for the patient 03/19/2025 12:18 PM EDT A Body Mass Index follow-up plan has been documented for the patient 03/19/2025 1:22 PM EDT documented as of this encounter Care Teams 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
--- OUTSIDE RECORDS SUMMARY | 2025-06-16 09:03 | XMS_ITS | Encounter Summary ---
Author Organization Healthcare Address [address] 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 Patient declined 03/14/2025 Do you belong to any clubs o r organizations such as adventism groups, unions, fraternal or athletic groups, or [...] drinks on one occasion? Patient declined 03/14/2025 [facility] - Occupational Stress Questionnaire Answer Date [...] Description 06/25/2025 9:45 AM EDT Office Visit [facility] Cardiothoracic [address], [address] [place] [address] Jose C Nicholson MD [address] [facility] [address] [place] [address] 08/07/2025 12:20 PM EST Appointment [facility] Radiology [address] [place] [address] 08/07/2025 1:40 PM EST Office Visit [facility] Comprehensive Vascular Clinic [address] [place] [address] Cedrick Franz MD [address] [facility] [address] [place] [address] documented as of this encounter Results * ECG Adult (05/14/2025 1:47 PM EDT) EKG DIAGNOSIS CLASS Borderline Normal MUSE ECG Ventricular Rate 58 BPM MUSE ECG Atrial Rate 58 BPM MUSE ECG TX Interval 168 ms MUSE ECG QRSD Interval 82 ms MUSE ECG QT Interval 444 ms MUSE ECG QTC Interval 435 ms MUSE ECG P [place] 67 degrees MUSE ECG R [place] 79 degrees MUSE ECG T Wave [place] 91 degrees MUSE ECG Diagnosis Sinus bradycardia with frequent premature ventricular complexes MUSE ECG Diagnosis Otherwise normal ECG MUSE ECG Diagnosis MUSE ECG Diagnosis Confirmed by Gwen Simpson ([id number]) on 05/15/2025 6:37:37 AM MUSE ECG 05/14/2025 1:47 PM EDT 05/15/2025 6:37 AM EDT us Jose C Nicholson MD ECG ORDERABLES Final Result MUSE ECG documented in this encounter Visit Diagnoses Diagnosis 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)- Primary documented in this encounter Additional Health Concerns Assessment Noted Time A fall risk assessment has been complete d for the patient 05/14/2025 12:57 PM EDT A Body Mass Index follow-up plan has been documented for the patient 05/16/2025 5:11 PM EDT documented as of this encounter Care Teams Equal Employment Opportunity Officer Relationship Specialty Start Date End Date Edwardo Sheehan MD [address] [place] [address] PCP - General 12/19/22 Jose R Umana MD [address] [facility] [address] [place] [address] Referring Physician Cardiology 01/23/25 Kevin Mancera MD [address] [facility] [address] [place] [address] Referring Physician 01/31/25 documented as of this encounter
--- OUTSIDE RECORDS SUMMARY | 2025-06-16 09:03 | XMS_ITS | Encounter Summary ---
Author Organization Healthcare Address [address] [place] [address] Care Team Providers Care Magnetic Prospecting Supervisor Name Role Phone Edwardo Sheehan MD Primary Care Provider [phone] Jose R Umana MD Unavailable [phone] Kevin Mancera MD Unavailable [phone] Encounter Details Date Type Department Care Team (Latest Contact Info) Description 05/20/2025 Travel Social History Tobacco Use Types Packs/Day [...] declined 03/14/2025 How often do you attend methodist or congregational serv ices? Patient declined 03/14/2025 Do you belong to any clubs o r organizations such as methodist groups, unions, fraternal or athletic groups, or [...] drinks on one occasion? Patient declined 03/14/2025 [facility] Occupat ional Health - Occupational Stress Questionnaire [...] Description 06/25/2025 9:45 AM EDT Office Visit [facility] Cardiothoracic [address] [facility] [address] [place] [address] Jose C Nicholson MD [address] [facility] [address] [place] [address] 08/07/2025 12:20 PM EST Appointment [facility] Radiology [address] [place] [address] 08/07/2025 1:40 PM EST Office Visit [facility] Comprehensive Vascular Clinic [address] [facility] 5th [address] [place] [address] Cedrick Franz MD [address] [facility] [address] [place] [address] documented as of this encounter Visit Diagnoses Not on filedocumented in this encounter Additional Health Concerns Assessment Noted Time A fall risk assessment has been complete d for the patient 05/14/2025 12:57 PM EDT A Body Mass Index follow-up plan has been documented for the patient 05/16/2025 5:11 PM EDT documented as of this encounter Care Teams Magnetic Prospecting Supervisor Relationship Specialty Start Date End Date Edwardo Sheehan MD [address] [place] [address] PCP - General 12/19/22 Jose R Umana MD [address] [facility] [address] [place] [address] Referring Physician Cardiology 01/23/25 Kevin Mancera MD [facility] [address] [place] [address] Referring Physician 01/31/25 documented as of this encounter
--- OUTSIDE RECORDS SUMMARY | 2025-06-16 09:03 | XMS_ITS | Encounter Summary ---
Author Organization Healthcare Address [address] [place] [address] Care Team Providers Care Multimedia Specialist Name Role Phone Edwardo Sheehan MD Primary Care Provider Jose R Umana MD Unavailable [phone] Kevin Mancera MD Unavailable [phone] Encounter Details Date Type Department Care Team (Latest Contact Info) Description 05/14/2025 Travel Social History Tobacco Use Types Packs/Day [...] declined 03/14/2025 How often do you attend restoration or islam serv ices? Patient declined 03/14/2025 Do you belong to any clubs o r organizations such as restoration groups, unions, fraternal or athletic groups, or [...] drinks on one occasion? Patient declined 03/14/2025 [facility] Occupat ional Health - Occupational Stress [...] Description 06/25/2025 9:45 AM EDT Office Visit [facility] Cardiothoracic [address] [facility] [address] [place] [address] Jose C Nicholson MD [address] [facility] [address] [place] [address] 08/07/2025 12:20 PM EST Appointment [facility] Radiology [address] [place] [address] 08/07/2025 1:40 PM EST Office Visit [facility] Comprehensive Vascular Clinic [address] [facility] 5th Floor [address] [place] [address] Cedrick Franz MD [address] [facility] [address] [place] [address] documented as of this encounter Visit Diagnoses Not on filedocumented in this encounter Additional Health Concerns Assessment Noted Time A fall risk assessment has been complete d for the patient 05/14/2025 12:57 PM EDT A Body Mass Index follow-up plan has been documented for the patient 05/16/2025 5:11 PM EDT documented as of this encounter Care Teams Multimedia Specialist Relationship Specialty Start Date End Date Edwardo Sheehan MD [address] [place] [address] PCP - General 12/19/22 Jose R Umana MD [address] [facility] [address] [place] [address] Referring Physician Cardiology 01/23/25 Kevin Mancera MD [facility] [address] [place] [address] Referring Physician 01/31/25 documented as of this encounter
--- OUTSIDE RECORDS SUMMARY | 2025-06-16 09:03 | XMS_ITS | Encounter Summary ---
Author Organization Healthcare Address [address] [place] [address] Care Team Providers Care Radiology Rn Name Role Phone Edwardo Sheehan MD Primary Care Provider [phone] Jose R Umnaa MD Unavailable [phone] Kevin Mancera MD Unavailable Encounter Details Date Type Department Care Team (Latest Contact Info) Description 05/17/2025 Travel Social History Tobacco Use Types Packs/Day [...] declined 03/14/2025 How often do you attend advent or religion serv ices? Patient declined 03/14/2025 Do you belong to any clubs o r organizations such as advent groups, unions, fraternal or athletic groups, or [...] drinks on one occasion? Patient declined 03/14/2025 [facility] Occupat ional Health - Occupational Stress [...] Description 06/25/2025 9:45 AM EDT Office Visit [facility] Cardiothoracic [address] [facility] [address] [place] [address] Jose C Nicholson MD [address] [facility] [address] [place] [address] 08/07/2025 12:20 PM EST Appointment [facility] Radiology [address] [place] [address] 08/07/2025 1:40 PM EST Office Visit [facility] Comprehensive Vascular Clinic [address] [facility] 5th [address] [place] [address] Cedrick Franz MD [address] [facility] [address] [place] [address] documented as of this encounter Visit Diagnoses Not on filedocumented in this encounter Additional Health Concerns Assessment Noted Time A fall risk assessment has been complete d for the patient 05/14/2025 12:57 PM EDT A Body Mass Index follow-up plan has been documented for the patient 05/16/2025 5:11 PM EDT documented as of this encounter Care Teams Radiology Rn Relationship Specialty Start Date End Date Edwardo Sheehan MD [address] [place] [address] PCP - General 12/19/22 Jose R Umana MD [address] [facility] [address] [place] [address] Referring Physician Cardiology 01/23/25 Kevin Mancera MD [facility] [address] [place] [address] Referring Physician 01/31/25 documented as of this encounter
--- OUTSIDE RECORDS SUMMARY | 2025-06-16 09:04 | XMS_ITS | Clinical Summary ---
Author Organization [facility] Address [address] [place] [address] Care Team Providers Care Skills Instructor Name Role Phone Edwardo Sheehan MD Primary Care Provider [phone] Allergies No known active allergies Medications atorvastatin (LIPITOR) 80 MG tablet Take 1 tablet by mouth Every Night. Active apixaban (Eliquis) 5 MG tablet tablet Take 1 tablet by mouth 2 (Two) Times a Day. 12/02/2024 Active Cholecalciferol 1.25 MG (10039 UT) tablet 12/17/2022 Active lisinopril-hydro chlorothiazide (PRINZIDE,ZESTOR ETIC) 20-25 MG per tablet Take 1 tablet by mouth Daily. 12/02/2024 Active PARoxetine (PAXIL) 20 MG tablet Take 1 tablet by mouth Daily. 04/18/1991 Active ALPRAZolam (XANAX) 0.5 MG tablet Take 1 tablet by mouth 2 (Two) Times a Day As Needed for Anxiety. Active multivitamin with minerals (CENTRUM SILVER PO) Take 1 tablet by mouth Daily. 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 12/26/2024 Family History Medical History Relation Name Comments Heart attack Brother Colon cancer Father Heart disease Father Leukemia Father Lung cancer Father No Known Problems Mother Parkinsonism Sister Relation Name Status Comments Brother Father Mother Sister Alive Social History Tobacco Use Types Packs/Day Years Used Date Smoking Tobacco: Former Cigarettes 1 46 1 972 - 2018 Smokeless Tobacco: Never Tobacco Cessation:Counseling Given: Not Answered Comments:Patient did smoke on and off during the time she used cigarettes Alcohol Use Standard Drinks/Week Comments Not Currently 0 (1 standard drink = 0.6 oz pur e alcohol) Comments Unknown Sex and Gender Information Value Date Recorded Sex Assigned at Female 12/24/2024 3:02 PM EDT Legal Sex Female 10:19 AM EDT Gender Identity Not on file Sexual Orientation Straight 12/24/2024 3: 02 PM EDT Occupation Industry Job Start Date Job End Date retired - [place] [employer] - [employer] Not on f ile Not on file Not on file Last Filed Vital Signs Vital Sign Reading Time Taken Comments Blood Pressure 146/90 12/30/2024 9:25 AM EDT Pulse 73 12/30/2024 9:25 AM EDT Temperature 36.2 C (97.1 F) 12/30/2024 9:25 AM EDT Respiratory Rate - - Oxygen Saturation 98% 12/30/2024 9:25 AM EDT Inhaled Oxygen Concentration - - Weight 70.6 kg (155 lb 9.6 oz) 12/30/2024 9:25 A M EDT Height 167.6 cm (5' 6 ) 12/30/2024 9:25 AM EDT Body Mass Index 25.11 12/30/2024 9:25 AM EDT Plan of Treatment Health Maintenance Due Date Last Done Comments DXA SCAN 1954 TDAP/TD VACCINES (1 - Tdap) 1973 MAMMOGRAM 1994 COLOGUARD 1999 COLON CANCER SCREENING 5 YEA R SIGMOIDOSCOPY 1999 COLONOSCOPY 1999 [address] CANCER SCREENING 1999 CT COLONOGRAPHY 1999 FECAL OCCULT BLOOD TEST 1999 FIT Testing (1 year) 1999 ZOSTER VACCINE (2 of 2) 11/14/2019 09/19/2019 ANNUAL WELLNESS VISIT 12/26/2024 HEPATITIS C SCREENING 12/26/2024 INFLUENZA VACCINE 04/18/2025 08/07/2024, , 07/25/2021, Additional history exists COVID-19 Vaccine (3 - 2024-2 6 season) 2025 10/08/2021, 12/19/2020 LUNG CANCER SCREENING 06/06/2026 06/06/2025, 025 Pneumococcal Vaccine 50+ Completed 07/03/2023, 10/2019 Procedures Procedure Name Priority Date/Time Associated Diagnosis Comments CT ANGIOGRAM CHEST W WO CONTRAST STAT 12/26/2024 1:58 PM EDT Aneurysm of ascending aorta without rupture from Last 3 Months or Most Recently Relevant to Health Maintenance Results * CT Angiogram Chest (12/26/2024 1:58 PM EDT) Anatomical Region Laterality Modality Chest, Vascular N/A Computed Tomogra phy 12/26/2024 2:14 PM EDT Impressions 12/26/2024 2:39 PM EDT Impression: 1.Diffuse aortic fusiform aneurysm measuring up to 6.2 cm maximum diameter at the level of the distal arch. Associated mural thrombus without dissection nor evidence of rupture. 2.There is 70-80% stenosis involving the proximal right ICA. 3.High-grade short segment stenosis if not total occlusion involving the left common femoral artery. 4.There is a 5 mm right lower lobe pulmonary nodule. See below recommendations. 5.Other incidental nonemergent findings as detailed above. The Fleischner society pulmonary nodule recommendations are for the follow-up and management of pulmonary nodules smaller than 8 mm detected incidentally in patients >35 years on non-screening CT. The initial guidelines for the management of solid nodules were released in 2004 1, and guidelines for the management of subsolid nodules were released in 2012 2. New revised 2017 recommendations for both solid and subsolid have since been released 4. 2017 guidelines Solid nodules Solitary nodule size: <6 mm *low risk patients: no follow-up needed *high risk patients: optional CT at 12 months Solitary nodule size: 6-8 mm *low risk patients: follow-up at 6-12 months, then consider further follow-up at 18-24 months *high risk patients: initial follow-up CT at 6-12 months and then at 18-24 months if no change Solitary nodule size: >8 mm *either low or high risk patients *consider follow-up CT at 3 months, and/or CT-PET, and/or biopsy Multiple nodules size: <6 mm *low risk patients: no routine follow-up *high risk patients: optional CT at 12 months Multiple nodules size: 6-8 mm *low risk patients: follow-up at 3-6 months, then consider further follow-up at 18-24 months *high risk patients: follow-up at 3-6 months, then at 18-24 months if no change Multiple nodules size: >8 mm *low risk patients: follow-up at 3-6 months, then consider further follow-up at 18-24 months *high risk patients: follow-up at 3-6 months, then at 18-24 months if no change * Note: newly detected indeterminate nodule in persons 35 years of age or older. *low risk patients: minimal or absent history of smoking and or other known risk factors *high risk patients: history of smoking or of other known risk factors (e.g. first degree relative with lung cancer, or exposure to asbestos, radon, uranium) *if a nodule up to 8 mm is partly solid or is ground glass further follow-up is required after 24 months to exclude possible slow growing adenocarcinoma (JOSE) Subsolid nodules Solitary pure ground-glass nodule *nodule size <6mm *no CT follow-up required *nodule size > or equal to 6mm *follow up CT at 6-12 months, then every 2 years until 5 years Solitary part-solid nodule *nodule size <6mm *no CT follow-up required *nodule size > or equal to 6mm *follow-up CT at 3-6 months *if unchanged, and solid component remains <6mm, then annual follow-up for 5 years Multiple subsolid nodules *nodule size <6mm *follow-up CT at 3-6 months *consider further follow-up at 2 and 4 years if stable *nodule size > or equal to 6mm *follow-up CT at 3-6 months *subsequent management based on the most suspicious nodule(s) Electronically Signed: Felipe Menon MD 12/26/2024 2:39 PM EDT Workstation ID: [id number] Narrative 12/26/2024 2:[address] ANGIOGRAM CHEST, CT ANGIOGRAM ABDOMEN PELVIS, CT ANGIOGRAM CAROTIDS Date of Exam: 12/26/2024 1:43 PM EDT Indication: AAA. Comparison: Outside chest CT 11/29/2024 Technique: CTA of the neck, chest, abdomen, and pelvis was performed before and after the uneventful intravenous administration of 100 cc Isovue-370. Reconstructed coronal and sagittal images were also obtained. In addition, a 3-D volume rendered image was created for interpretation. Automated exposure control and iterative reconstruction methods were used. Findings: CTA CAROTIDS: *Left carotid system: Medialization of the mid to distal common carotid artery and proximal internal carotid artery. There is minimal atherosclerotic disease at the level of the bulb. No aneurysm, significant stenosis or occlusion. *Right carotid system: There is moderate to advanced atherosclerotic disease involving the bulb and proximal ICA with both calcified and noncalcified atherosclerotic plaque. There is either plaque ulceration versus short segment dissection. These findings result in 70-80% stenosis involving the proximal right ICA. No aneurysm, additional significant stenosis or occlusion. *Vertebrobasilar system: The vertebral arteries arise from their respective subclavian arteries. No aneurysm, significant stenosis or occlusion. CTA CHEST ABDOMEN PELVIS: AORTA: Diffuse fusiform aneurysm involving the ascending thoracic aorta, descending thoracic aorta, and proximal to mid abdominal aorta. Aortic measurements: *2.9 cm at the sinotubular junction *4.4 cm in the midascending aorta *4.5 cm proximal aortic arch *6.2 cm distal aortic arch *5.8 cm mid descending thoracic aorta *4.8 cm distal descending thoracic aorta *5.3 cm proximal abdominal aorta *3.7 cm mid abdominal aorta *2.1 cm in distal abdominal aorta There is atherosclerotic disease throughout with both calcified and noncalcified mural plaque/thrombus. No dissection. No significant abnormality arch vessels. MESENTERIC/RENAL VESSELS: Normal in caliber. No dissection or significant stenosis identified. There are 2 accessory right renal arteries. PELVIC VESSELS: Moderate advanced atherosclerotic disease. There is focal short segment high-grade stenosis if not total occlusion of the left common femoral artery. There is at least 50% stenosis involving portions of the left external iliac artery. IVC: Normal caliber. PULMONARY VASCULATURE: Adequately visualized portions of the arteries are widely patent.Main pulmonary artery is normal in size. No evidence of right heart strain. CHEST MEDIASTINUM:Unremarkable. Heart size is normal. No mass nor pericardial effusion. CORONARY ARTERIES: Nocalcified atherosclerotic disease. LUNGS: Lungs are clear. No consolidation. There is a 5 mm right lower lobe pulmonary nodule (image 59, series 3). There is mild emphysema. Recommend evaluation of patient history and risk factors to see if patient qualifies for low dose lung cancer screening based upon evidence of emphysema. PLEURAL SPACE: No effusion, mass, nor pneumothorax. ABDOMEN AND PELVIS LIVER: Unremarkable parenchyma without focal lesion. BILIARY/GALLBLADDER: Unremarkable SPLEEN: Unremarkable PANCREAS: Unremarkable ADRENAL: Unremarkable KIDNEYS: Unremarkable parenchyma with no solid mass identified. No obstruction. No calculus identified. GASTROINTESTINAL/MESENTERY: No evidence of obstruction nor inflammation. RETROPERITONEUM/LYMPH NODES: Unremarkable REPRODUCTIVE: Hysterectomy BLADDER: Unremarkable OSSEUS STRUCTURES: Left hip arthroplasty with associated streak and beam hardening artifact. Procedure Note Felipe Menon MD - 12/26/2024 CT ANGIOGRAM CHEST, CT ANGIOGRAM ABDOMEN PELVIS, CT ANGIOGRAM CAROTIDS Date of Exam: 12/26/2024 1:43 PM EDT Indication: AAA. Comparison: Outside chest CT 11/29/2024 Technique: CTA of the neck, chest, abdomen, and pelvis was performedbefore and after the uneventful intravenous administration of 100 ccIsovue-370. Reconstructed coronal and sagittal images were also obtained.In addition, a 3-D volume rendered image was created for interpretation. Automated exposure control and iterativereconstruction methods were used. Findings: CTA CAROTIDS: *Left carotid system: Medialization of the mid to distal common carotidartery and proximal internal carotid artery. There is minimalatherosclerotic disease at the level of the bulb. No aneurysm, significantstenosis or occlusion. *Right carotid system: There is moderate to advanced atheroscleroticdisease involving the bulb and proximal ICA with both calcified andnoncalcified atherosclerotic plaque. There is either plaque ulcerationversus short segment dissection. These findings result in 70-80% stenosis involving the proximal right ICA. Noaneurysm, additional significant stenosis or occlusion. *Vertebrobasilar system: The vertebral arteries arise from theirrespective subclavian arteries. No aneurysm, significant stenosis orocclusion. CTA CHEST ABDOMEN PELVIS: AORTA: Diffuse fusiform aneurysm involving the ascending thoracic aorta,descending thoracic aorta, and proximal to mid abdominal aorta. Aorticmeasurements: *2.9 cm at the sinotubular junction *4.4 cm in the midascending aorta *4.5 cm proximal aortic arch *6.2 cm distal aortic arch *5.8 cm mid descending thoracic aorta *4.8 cm distal descending thoracic aorta *5.3 cm proximal abdominal aorta *3.7 cm mid abdominal aorta *2.1 cm in distal abdominal aorta There is atherosclerotic disease throughout with both calcified andnoncalcified mural plaque/thrombus. No dissection. No significant abnormality arch vessels. MESENTERIC/RENAL VESSELS: Normal in caliber. No dissection or significantstenosis identified. There are 2 accessory right renal arteries. PELVIC VESSELS: Moderate advanced atherosclerotic disease. There is focalshort segment high-grade stenosis if not total occlusion of the leftcommon femoral artery. There is at least 50% stenosis involving portionsof the left external iliac artery. IVC: Normal caliber. PULMONARY VASCULATURE: Adequately visualized portions of the arteries arewidely patent.Main pulmonary artery is normal in size. No evidence ofright heart strain. CHEST MEDIASTINUM:Unremarkable. Heart size is normal. No mass nor pericardialeffusion. CORONARY ARTERIES: Nocalcified atherosclerotic disease. LUNGS: Lungs are clear. No consolidation. There is a 5 mm right lower lobepulmonary nodule (image 59, series 3). There is mild emphysema. Recommendevaluation of patient history and risk factors to see if patient qualifiesfor low dose lung cancer screening based upon evidence of emphysema. PLEURAL SPACE: No effusion, mass, nor pneumothorax. ABDOMEN AND PELVIS LIVER: Unremarkable parenchyma without focal lesion. BILIARY/GALLBLADDER: Unremarkable SPLEEN: Unremarkable PANCREAS: Unremarkable ADRENAL: Unremarkable KIDNEYS: Unremarkable parenchyma with no solid mass identified. Noobstruction. No calculus identified. GASTROINTESTINAL/MESENTERY: No evidence of obstruction nor inflammation. RETROPERITONEUM/LYMPH NODES: Unremarkable REPRODUCTIVE: Hysterectomy BLADDER: Unremarkable OSSEUS STRUCTURES: Left hip arthroplasty with associated streak and beamhardening artifact. IMPRESSION: Impression: 1.Diffuse aortic fusiform aneurysm measuring up to 6.2 cm maximum diameterat the level of the distal arch. Associated mural thrombus withoutdissection nor evidence of rupture. 2.There is 70-80% stenosis involving the proximal right ICA. 3.High-grade short segment stenosis if not total occlusion involving theleft common femoral artery. 4.There is a 5 mm right lower lobe pulmonary nodule. See belowrecommendations. 5.Other incidental nonemergent findings as detailed above. The Fleischner society pulmonary nodule recommendations are for thefollow-up and management of pulmonary nodules smaller than 8 mm detectedincidentally in patients >35 years on non-screening CT. The initialguidelines for the management of solid nodules were released in 2004 1, and guidelines for the management ofsubsolid nodules were released in 2012 2. New revised 2017 recommendationsfor both solid and subsolid have since been released 4. 2017 guidelines Solid nodules Solitary nodule size: <6 mm *low risk patients: no follow-up needed *high risk patients: optional CT at 12 months Solitary nodule size: 6-8 mm *low risk patients: follow-up at 6-12 months, then consider furtherfollow-up at 18-24 months *high risk patients: initial follow-up CT at 6-12 months and then at 18-24months if no change Solitary nodule size: >8 mm *either low or high risk patients *consider follow-up CT at 3 months, and/or CT-PET, and/or biopsy Multiple nodules size: <6 mm *low risk patients: no routine follow-up *high risk patients: optional CT at 12 months Multiple nodules size: 6-8 mm *low risk patients: follow-up at 3-6 months, then consider furtherfollow-up at 18-24 months *high risk patients: follow-up at 3-6 months, then at 18-24 months if nochange Multiple nodules size: >8 mm *low risk patients: follow-up at 3-6 months, then consider furtherfollow-up at 18-24 months *high risk patients: follow-up at 3-6 months, then at 18-24 months if nochange * Note: newly detected indeterminate nodule in persons 35 years of age orolder. *low risk patients: minimal or absent history of smoking and or otherknown risk factors *high risk patients: history of smoking or of other known risk factors(e.g. first degree relative with lung cancer, or exposure to asbestos,radon, uranium) *if a nodule up to 8 mm is partly solid or is ground glass furtherfollow-up is required after 24 months to exclude possible slow growingadenocarcinoma (JOSE) Subsolid nodules Solitary pure ground-glass nodule *nodule size <6mm *no CT follow-up required *nodule size > or equal to 6mm *follow up CT at 6-12 months, then every 2 years until 5 years Solitary part-solid nodule *nodule size <6mm *no CT follow-up required *nodule size > or equal to 6mm *follow-up CT at 3-6 months *if unchanged, and solid component remains <6mm, then annual follow-up for5 years Multiple subsolid nodules *nodule size <6mm *follow-up CT at 3-6 months *consider further follow-up at 2 and 4 years if stable *nodule size > or equal to 6mm *follow-up CT at 3-6 months *subsequent management based on the most suspicious nodule(s) Electronically Signed: Felipe Menon MD 12/26/2024 2:39 PM EDT Workstation ID: [id number] us Nicanor Aguilar REFRIGERATOR ROOM CLERK IMG CT ORDERABLES Final Res ult from Last 3 Months or Most Recently Relevant to Health Maintenance [place] [address] [employer] PPO Care Teams Skills Instructor Relationship Specialty Start Date End Date Edwardo Sheehan MD [address] [place] [id number] PCP - General Family Medicine 12/05/24
--- OUTSIDE RECORDS SUMMARY | 2025-06-16 09:04 | XMS_ITS | Clinical Summary ---
Author Organization Healthcare Address [address] [place] [address] Care Team Providers Care Diagnostic Technologist Name Role Phone Edwardo Sheehan MD Primary Care Provider [phone] Jose R Umana MD Unavailable [phone] Kevin Mancera MD Unavailable [phone] Allergies Active Allergy Reactions Criticality Noted Date Comments Oxycodone Rash Low 06/02/2025 Medications PARoxetine (Paxil) 20 MG tablet Take 1 tablet by mouth daily. Active ALPRAZolam (Xanax) 0.5 MG tablet Take 1 tablet by mouth 2 times a day. Active Multiple Vitamins-Mineral s (CENTRUM SILVER 50+WOMEN PO) Take by mouth. Activ e cholecalciferol (D-5000) 5,000 Units tablet Take 1 tablet by mouth 1 time each day. Active atorvastatin (Lipitor) 20 MG tablet Take 1 tablet by mouth daily. 02/26/20 25 Active clopidogrel (Plavix) 75 MG tablet Take 1 tablet by mouth daily. 30 tablet 11 02/28/20 25 026 Active naloxone (Narcan) 4 mg/0.1 mL nasal spray 1. Give 1 spray in nostril for no/slow breathing or cannot wake after opioid use 2. Call 911 3. Repeat in other nostril if symptoms continue 1 each 03/14/20 25 Active apixaban (Eliquis) 5 MG tablet Take 1 tablet by mouth 2 times a day. 60 tablet 2 06/07/20 25 026 Active docusate sodium 100 MG capsule Take 100 mg by mouth 2 times a day. 60 capsule 06/07/20 25 Active HYDROcodone-acet aminophen (Disputanta) 5-325 MG tablet Take 1 tablet by mouth every 4 hours as needed for moderate pain. 30 tablet 06/07/20 25 Active metoprolol tartrate (Lopressor) 25 MG tablet Take 1 tablet by mouth 2 times a day. 60 tablet 2 06/07/20 25 Active senna (Senokot) 8.6 MG tablet Take 1 tablet by mouth nightly. 30 tablet 06/07/20 25 Active lisinopril 40 MG tablet Take 1 tablet by mouth nightly. Discontin ued(Stop Taking at Discharge ) bisoprolol (Zebeta) 10 MG tablet Take 1 tablet by mouth nightly. Discontin ued(Stop Taking at Discharge ) aspirin 81 MG EC tablet Take 1 tablet by mouth daily. 30 tablet 11 02/28/20 25 Discontin ued(Stop Taking at Discharge ) hydroCHLOROthiaz calista (HYDRODiuril) 50 MG tablet Take 1 tablet by mouth daily. Discontin ued(Stop Taking at Discharge ) atorvastatin (Lipitor) 40 MG tablet Take 1 tablet by mouth daily. 30 tablet 11 03/19/20 25 Discontin ued(Dose adjustmen t) amLODIPine (Norvasc) 2.5 MG tablet Take 1 tablet by mouth daily. 05/05/20 Discontin ued(Stop Taking at Discharge ) mupirocin (Bactroban) 2 % ointmentIndicati ons:Methicillin- Resistant S. Aureus Nasal Colonization Apply 1 Application topically 2 times a day. Apply to each nostril twice daily for 5 days before surgery. 15 g 05/14/20 Discontin ued(Enter ed in Error) Active Problems Problem Noted Date Diagnosed Date S/P ascending aortic aneurysm repair 06/07/2025 Assessment & Plan (06/07/2025 11:40 AM EDT): -Monitor per protocol. Acute blood loss anemia 06/07/2025 Assessment & Plan (06/07/2025 11:40 AM EDT): -Monitor per protocol. Thrombocytosis 06/07/2025 Assessment & Plan (06/07/2025 11:40 AM EDT): -Monitor per protocol. Hypocalcemia 06/07/2025 Assessment & Plan (06/07/2025 11:40 AM EDT): -Monitor per protocol. Hypophosphatemia 06/07/2025 Assessment & Plan (06/07/2025 11:40 AM EDT): -Monitor per protocol. Acute postoperative pain 06/07/2025 Assessment & Plan (06/07/2025 11:40 AM EDT): -Monitor per protocol. Mood disorder 06/07/2025 Assessment & Plan (06/07/2025 11:40 AM EDT): -Monitor per protocol. Depression 06/07/2025 Assessment & Plan (06/07/2025 11:40 AM EDT): -Monitor per protocol. Anxiety 06/07/2025 Assessment & Plan (06/07/2025 11:40 AM EDT): -Monitor per protocol. H/O aortic arch replacement 05/28/2025 Assessment & Plan (06/07/2025 11:40 AM EDT): -05/27: Ascending aortic and arch aneurysm repair with ascending aortic replacement using a 28 Hemashield graft and aortic arch replacement using a 32 Hemashield tube graft with deep circulatory arrest using bilateral antegrade cerebral perfusion and de-branching of the innominate artery and the left carotid artery with valve sparing Assessment & Plan (06/06/2025 2:15 PM EDT): -05/27: Ascending aortic and arch aneurysm repair with ascending aortic replacement using a 28 Hemashield graft and aortic arch replacement using a 32 Hemashield tube graft with deep circulatory arrest using bilateral antegrade cerebral perfusion and de-branching of the innominate artery and the left carotid artery with valve sparing Assessment & Plan (06/05/2025 11:14 PM EDT): -05/27: Ascending aortic and arch aneurysm repair with ascending aortic replacement using a 28 Hemashield graft and aortic arch replacement using a 32 Hemashield tube graft with deep circulatory arrest using bilateral antegrade cerebral perfusion and de-branching of the innominate artery and the left carotid artery with valve sparing Assessment & Plan (06/02/2025 8:07 AM EDT): -05/27: Ascending aortic and arch aneurysm repair with ascending aortic replacement using a 28 Hemashield graft and aortic arch replacement using a 32 Hemashield tube graft with deep circulatory arrest using bilateral antegrade cerebral perfusion and de-branching of the innominate artery and the left carotid artery with valve sparing Assessment & Plan (06/01/2025 4:44 PM EDT): -05/27: Ascending aortic and arch aneurysm repair with ascending aortic replacement using a 28 Hemashield graft and aortic arch replacement using a 32 Hemashield tube graft with deep circulatory arrest using bilateral antegrade cerebral perfusion and de-branching of the innominate artery and the left carotid artery with valve sparing Assessment & Plan (05/31/2025 4:35 PM EDT): -05/27: Ascending aortic and arch aneurysm repair with ascending aortic replacement using a 28 Hemashield graft and aortic arch replacement using a 32 Hemashield tube graft with deep circulatory arrest using bilateral antegrade cerebral perfusion and de-branching of the innominate artery and the left carotid artery with valve sparing Assessment & Plan (05/30/2025 12:20 PM EDT): -05/27: Ascending aortic and arch aneurysm repair with ascending aortic replacement using a 28 Hemashield graft and aortic arch replacement using a 32 Hemashield tube graft with deep circulatory arrest using bilateral antegrade cerebral perfusion and de-branching of the innominate artery and the left carotid artery with valve sparing Assessment & Plan (05/29/2025 11:26 PM EDT): -05/27: Ascending aortic and arch aneurysm repair with ascending aortic replacement using a 28 Hemashield graft and aortic arch replacement using a 32 Hemashield tube graft with deep circulatory arrest using bilateral antegrade cerebral perfusion and de-branching of the innominate artery and the left carotid artery with valve sparing Assessment & Plan (05/29/2025 2:53 PM EDT): -05/27: Ascending aortic and arch aneurysm repair with ascending aortic replacement using a 28 Hemashield graft and aortic arch replacement using a 32 Hemashield tube graft with deep circulatory arrest using bilateral antegrade cerebral perfusion and de-branching of the innominate artery and the left carotid artery with valve sparing Assessment & Plan (05/28/2025 9:27 PM EDT): -05/27: Ascending aortic and arch aneurysm repair with ascending aortic replacement using a 28 Hemashield graft and aortic arch replacement using a 32 Hemashield tube graft with deep circulatory arrest using bilateral antegrade cerebral perfusion and de-branching of the innominate artery and the left carotid artery with valve sparing Assessment & Plan (05/28/2025 1:02 PM EDT): -05/27: Ascending aortic and arch aneurysm repair with ascending aortic replacement using a 28 Hemashield graft and aortic arch replacement using a 32 Hemashield tube graft with deep circulatory arrest using bilateral antegrade cerebral perfusion and de-branching of the innominate artery and the left carotid artery with valve sparing Assessment & Plan (05/28/2025 1:42 AM EDT): -05/27: Ascending aortic and arch aneurysm repair with ascending aortic replacement using a 28 Hemashield graft and aortic arch replacement using a 32 Hemashield tube graft with deep circulatory arrest using bilateral antegrade cerebral perfusion and de-branching of the innominate artery and the left carotid artery with valve sparing H/O ascending aortic replacement 05/28/2025 Assessment & Plan (06/07/2025 11:40 AM EDT): -05/27: Ascending aortic and arch aneurysm repair with ascending aortic replacement using a 28 Hemashield graft and aortic arch replacement using a 32 Hemashield tube graft with deep circulatory arrest using bilateral antegrade cerebral perfusion and de-branching of the innominate artery and the left carotid artery with valve sparing Assessment & Plan (06/06/2025 2:15 PM EDT): -05/27: Ascending aortic and arch aneurysm repair with ascending aortic replacement using a 28 Hemashield graft and aortic arch replacement using a 32 Hemashield tube graft with deep circulatory arrest using bilateral antegrade cerebral perfusion and de-branching of the innominate artery and the left carotid artery with valve sparing Assessment & Plan (06/05/2025 11:14 PM EDT): -05/27: Ascending aortic and arch aneurysm repair with ascending aortic replacement using a 28 Hemashield graft and aortic arch replacement using a 32 Hemashield tube graft with deep circulatory arrest using bilateral antegrade cerebral perfusion and de-branching of the innominate artery and the left carotid artery with valve sparing Assessment & Plan (06/02/2025 8:07 AM EDT): -05/27: Ascending aortic and arch aneurysm repair with ascending aortic replacement using a 28 Hemashield graft and aortic arch replacement using a 32 Hemashield tube graft with deep circulatory arrest using bilateral antegrade cerebral perfusion and de-branching of the innominate artery and the left carotid artery with valve sparing Assessment & Plan (06/01/2025 4:44 PM EDT): -05/27: Ascending aortic and arch aneurysm repair with ascending aortic replacement using a 28 Hemashield graft and aortic arch replacement using a 32 Hemashield tube graft with deep circulatory arrest using bilateral antegrade cerebral perfusion and de-branching of the innominate artery and the left carotid artery with valve sparing Assessment & Plan (05/31/2025 4:35 PM EDT): -05/27: Ascending aortic and arch aneurysm repair with ascending aortic replacement using a 28 Hemashield graft and aortic arch replacement using a 32 Hemashield tube graft with deep circulatory arrest using bilateral antegrade cerebral perfusion and de-branching of the innominate artery and the left carotid artery with valve sparing Assessment & Plan (05/30/2025 12:20 PM EDT): -05/27: Ascending aortic and arch aneurysm repair with ascending aortic replacement using a 28 Hemashield graft and aortic arch replacement using a 32 Hemashield tube graft with deep circulatory arrest using bilateral antegrade cerebral perfusion and de-branching of the innominate artery and the left carotid artery with valve sparing Assessment & Plan (05/29/2025 11:26 PM EDT): -05/27: Ascending aortic and arch aneurysm repair with ascending aortic replacement using a 28 Hemashield graft and aortic arch replacement using a 32 Hemashield tube graft with deep circulatory arrest using bilateral antegrade cerebral perfusion and de-branching of the innominate artery and the left carotid artery with valve sparing Assessment & Plan (05/29/2025 2:53 PM EDT): -05/27: Ascending aortic and arch aneurysm repair with ascending aortic replacement using a 28 Hemashield graft and aortic arch replacement using a 32 Hemashield tube graft with deep circulatory arrest using bilateral antegrade cerebral perfusion and de-branching of the innominate artery and the left carotid artery with valve sparing Assessment & Plan (05/28/2025 9:27 PM EDT): -05/27: Ascending aortic and arch aneurysm repair with ascending aortic replacement using a 28 Hemashield graft and aortic arch replacement using a 32 Hemashield tube graft with deep circulatory arrest using bilateral antegrade cerebral perfusion and de-branching of the innominate artery and the left carotid artery with valve sparing Assessment & Plan (05/28/2025 1:02 PM EDT): -05/27: Ascending aortic and arch aneurysm repair with ascending aortic replacement using a 28 Hemashield graft and aortic arch replacement using a 32 Hemashield tube graft with deep circulatory arrest using bilateral antegrade cerebral perfusion and de-branching of the innominate artery and the left carotid artery with valve sparing Assessment & Plan (05/28/2025 1:42 AM EDT): -05/27: Ascending aortic and arch aneurysm repair with ascending aortic replacement using a 28 Hemashield graft and aortic arch replacement using a 32 Hemashield tube graft with deep circulatory arrest using bilateral antegrade cerebral perfusion and de-branching of the innominate artery and the left carotid artery with valve sparing H/O transcarotid artery revascularization (TCAR) 05/28/2025 Assessment & Plan (06/07/2025 11:40 AM EDT): -02/2025 Assessment & Plan (06/06/2025 2:15 PM EDT): -02/2025 Assessment & Plan (06/05/2025 11:14 PM EDT): -02/2025 Assessment & Plan (06/02/2025 8:07 AM EDT): -02/2025 Assessment & Plan (06/01/2025 4:44 PM EDT): -02/2025 Assessment & Plan (05/31/2025 4:35 PM EDT): -02/2025 Assessment & Plan (05/30/2025 12:20 PM EDT): -02/2025 Assessment & Plan (05/29/2025 11:26 PM EDT): -02/2025 Assessment & Plan (05/29/2025 2:53 PM EDT): -02/2025 Assessment & Plan (05/28/2025 9:27 PM EDT): -02/2025 Assessment & Plan (05/28/2025 1:02 PM EDT): -02/2025 Assessment & Plan (05/28/2025 1:42 AM EDT): -02/2025 Hypokalemia 05/28/2025 Assessment & Plan (06/07/2025 11:40 AM EDT): -Monitor per protocol and replaced as indicated Assessment & Plan (06/06/2025 2:15 PM EDT): -Monitor per protocol and replaced as indicated Assessment & Plan (06/05/2025 11:14 PM EDT): -Monitor per protocol and replaced as indicated Assessment & Plan (06/02/2025 8:07 AM EDT): -Monitor per protocol and replaced as indicated Assessment & Plan (06/01/2025 4:44 PM EDT): -Monitor per protocol and replaced as indicated Assessment & Plan (05/31/2025 4:35 PM EDT): -Monitor per protocol and replaced as indicated Assessment & Plan (05/30/2025 12:20 PM EDT): -Monitor per protocol and replaced as indicated Assessment & Plan (05/29/2025 11:26 PM EDT): -Monitor per protocol and replaced as indicated Assessment & Plan (05/29/2025 2:53 PM EDT): -Monitor per protocol and replaced as indicated Assessment & Plan (05/28/2025 9:27 PM EDT): -Monitor per protocol and replaced as indicated Assessment & Plan (05/28/2025 1:02 PM EDT): -Monitor per protocol and replaced as indicated Leukocytosis 05/28/2025 Assessment & Plan (06/07/2025 11:40 AM EDT): Monitor post op likely reactive -infectious work up sent 06/06 Assessment & Plan (06/06/2025 2:15 PM EDT): Monitor post op likely reactive -infectious work up sent 06/06 Assessment & Plan (06/06/2025 5:14 AM EDT): Monitor post op likely reactive -infectious work up sent 06/06 Assessment & Plan (06/02/2025 8:07 AM EDT): Monitor post op likely reactive Assessment & Plan (06/01/2025 4:44 PM EDT): Monitor post op likely reactive Assessment & Plan (05/31/2025 4:35 PM EDT): Monitor post op likely reactive Assessment & Plan (05/30/2025 12:20 PM EDT): Monitor post op likely reactive Assessment & Plan (05/29/2025 11:26 PM EDT): Monitor post op likely reactive Assessment & Plan (05/29/2025 2:53 PM EDT): Monitor post op likely reactive Assessment & Plan (05/28/2025 9:27 PM EDT): Monitor post op likely reactive Assessment & Plan (05/28/2025 1:02 PM EDT): Monitor post op likely reactive Hyperlipidemia 05/27/2025 Assessment & Plan (06/07/2025 11:40 AM EDT): - statin Assessment & Plan (06/06/2025 2:15 PM EDT): - statin Assessment & Plan (06/05/2025 11:14 PM EDT): - statin Assessment & Plan (06/02/2025 8:07 AM EDT): - statin Assessment & Plan (06/01/2025 4:44 PM EDT): - statin Assessment & Plan (05/31/2025 4:35 PM EDT): - statin Assessment & Plan (05/30/2025 12:20 PM EDT): - statin Assessment & Plan (05/29/2025 11:26 PM EDT): - statin Assessment & Plan (05/29/2025 2:53 PM EDT): - statin Assessment & Plan (05/28/2025 9:27 PM EDT): - start statin Assessment & Plan (05/28/2025 1:02 PM EDT): - start statin Assessment & Plan (05/28/2025 1:42 AM EDT): - start statin when appropriate COPD (chronic obstructive pulmonary disease) 05/2025 Assessment & Plan (06/07/2025 11:40 AM EDT): -resume home meds as appropriate -Increased pulm toilet -Duoneb PRN Assessment & Plan (06/06/2025 2:15 PM EDT): -resume home meds as appropriate -Increased pulm toilet -Duoneb PRN Assessment & Plan (06/05/2025 11:14 PM EDT): -resume home meds as appropriate -Increased pulm toilet -Duoneb PRN Assessment & Plan (06/02/2025 8:07 AM EDT): -on mechanically assisted ventilation, expected s/p AAA repair, and root replace - evaluate for extubation- now extubated Assessment & Plan (06/01/2025 4:44 PM EDT): -on mechanically assisted ventilation, expected s/p AAA repair, and root replace - evaluate for extubation- now extubated Assessment & Plan (05/31/2025 4:35 PM EDT): -on mechanically assisted ventilation, expected s/p AAA repair, and root replace - evaluate for extubation- now extubated Assessment & Plan (05/30/2025 12:20 PM EDT): -on mechanically assisted ventilation, expected s/p AAA repair, and root replace - evaluate for extubation - PS when mental status allows Assessment & Plan (05/29/2025 11:26 PM EDT): -on mechanically assisted ventilation, expected s/p AAA repair, and root replace - evaluate for extubation - PS when mental status allows Assessment & Plan (05/29/2025 2:53 PM EDT): -on mechanically assisted ventilation, expected s/p AAA repair, and root replace - evaluate for extubation - PS when mental status allows Assessment & Plan (05/28/2025 9:27 PM EDT): -on mechanically assisted ventilation, expected s/p AAA repair, and root replace - evaluate for extubation Assessment & Plan (05/28/2025 1:02 PM EDT): -on mechanically assisted ventilation, expected s/p AAA repair, and root replace - evaluate for extubation Assessment & Plan (05/28/2025 1:42 AM EDT): -on mechanically assisted ventilation, expected s/p AAA repair, and root replace Peripheral vascular disease 05/27/2025 Asymptomatic stenosis of right carotid artery Aneurysm of descending thoracic aorta without ru pture 01/30/2025 Assessment & Plan (06/07/2025 11:40 AM EDT): -will need procedure with vascular surgery Assessment & Plan (06/06/2025 2:15 PM EDT): -will need procedure with vascular surgery Assessment & Plan (06/05/2025 11:14 PM EDT): -will need procedure with vascular surgery Assessment & Plan (06/02/2025 8:07 AM EDT): -will need procedure with vascular surgery Assessment & Plan (06/01/2025 4:44 PM EDT): -will need procedure with vascular surgery Assessment & Plan (05/31/2025 4:35 PM EDT): -will need procedure with vascular surgery Assessment & Plan (05/30/2025 12:20 PM EDT): -will need procedure with vascular surgery Assessment & Plan (05/29/2025 11:26 PM EDT): -will need procedure with vascular surgery Assessment & Plan (05/29/2025 2:53 PM EDT): -will need procedure with vascular surgery Assessment & Plan (05/28/2025 9:27 PM EDT): -will need procedure with vascular surgery Assessment & Plan (05/28/2025 1:02 PM EDT): -will need procedure with vascular surgery Assessment & Plan (05/28/2025 1:42 AM EDT): -will need procedure with vascular surgery Poorly-controlled hypertension 01/30/2025 Assessment & Plan (06/07/2025 11:40 AM EDT): - PRN IV Labetalol meds as needed Assessment & Plan (06/06/2025 2:15 PM EDT): - PRN IV Labetalol meds as needed Assessment & Plan (06/05/2025 11:14 PM EDT): - PRN IV Labetalol meds as needed Assessment & Plan (06/02/2025 8:07 AM EDT): -on cleviprex and nitroglycerin post op since weaned - PRN IV meds as needed Assessment & Plan (06/01/2025 4:44 PM EDT): -on cleviprex and nitroglycerin post op since weaned - PRN IV meds as needed Assessment & Plan (05/31/2025 4:35 PM EDT): -on cleviprex and nitroglycerin post op since weaned - PRN IV meds as needed Assessment & Plan (05/30/2025 12:20 PM EDT): -on cleviprex and nitroglycerin - Hydral stopped - PRN IV meds as needed Assessment & Plan (05/29/2025 11:26 PM EDT): -on cleviprex and nitroglycerin - Hydral stopped - PRN IV meds as needed - On and off Levophed Assessment & Plan (05/29/2025 2:53 PM EDT): -on cleviprex and nitroglycerin - Hydral stopped - PRN IV meds as needed - On and off Levophed Assessment & Plan (05/28/2025 9:27 PM EDT): -on cleveprex and nitroglycerin - started hydral 10 TID Assessment & Plan (05/28/2025 1:02 PM EDT): -on cleveprex and nitroglycerin - started hydral 10 TID Assessment & Plan (05/28/2025 1:42 AM EDT): -on cleveprex and nitroglycerin - started hydral 10 TID 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 Assessment & Plan (06/07/2025 11:40 AM EDT): -Resume Eliquis -AC per primary Assessment & Plan (06/06/2025 2:15 PM EDT): -Resume Eliquis -AC per primary Assessment & Plan (06/06/2025 5:14 AM EDT): -Resume Eliquis -AC per primary Resolved Problems Problem Noted Date Diagnosed Date Resolved Date Ascending aortic aneurysm 06/07/2025 Thrombocytopenia 06/07/2025 06/07/2025 Hyponatremia 06/07/2025 06/07/2025 Hypermagnesemia 06/07/2025 06/07/2025 Hyperkalemia 06/07/2025 06/07/2025 Hypernatremia 06/07/2025 06/07/2025 Transient hyperglycemia post procedure 06/07/2025 06/07/2025 Pleural effusion 06/06/2025 06/07/2025 Assessment & Plan (06/06/2025 2:15 PM EDT): -Daily CXR -diuresis/drain as necessary Assessment & Plan (06/06/2025 5:14 AM EDT): -Daily CXR -diuresis/drain as necessary A-fib 05/31/2025 06/07/2025 Overview (05/31/2025): Controlled rate, converted to NSR with BB Assessment & Plan (06/06/2025 2:15 PM EDT): -Monitor per protocol. Assessment & Plan (06/05/2025 11:14 PM EDT): -Monitor per protocol. Assessment & Plan (06/02/2025 8:07 AM EDT): -Monitor per protocol. Assessment & Plan (06/01/2025 4:44 PM EDT): -Monitor per protocol. Assessment & Plan (05/31/2025 4:35 PM EDT): -Monitor per protocol. Left upper extremity swelling 05/30/2025 06/07/2025 Assessment & Plan (06/02/2025 8:07 AM EDT): -duplex neg Assessment & Plan (06/01/2025 4:44 PM EDT): -duplex neg Assessment & Plan (05/31/2025 4:35 PM EDT): -duplex pending Delirium due to multiple etiologies 05/29/2025 06/07/2025 Assessment & Plan (06/06/2025 2:15 PM EDT): -Seroquel wean to off, changed to nightly and stop in 3 days Now improved, pt alert and oriented Assessment & Plan (06/05/2025 11:14 PM EDT): -Seroquel wean to off, changed to nightly and stop in 3 days Now improved, pt alert and oriented Assessment & Plan (06/02/2025 8:07 AM EDT): -Seroquel wean to off, changed to nightly and stop in 3 days Now improved, pt alert and oriented Assessment & Plan (06/01/2025 4:44 PM EDT): -Seroquel 75 BID -IV Haldol for PRN agitation. Now improved, pt alert and oriented Assessment & Plan (05/31/2025 4:35 PM EDT): -Seroquel 75 BID -IV Haldol for PRN agitation. Now improved, pt alert and oriented Assessment & Plan (05/30/2025 12:20 PM EDT): -Seroquel 75 BID -IV Haldol for PRN agitation. Assessment & Plan (05/29/2025 11:26 PM EDT): -Seroquel 25 BID Assessment & Plan (05/29/2025 2:53 PM EDT): -Seroquel 25 BID History of right common ziegler tid artery stent placement 05/28/2025 05/28/2025 Cardiac volume overload 05/28/202505/20 Assessment & Plan (06/06/2025 2:15 PM EDT): Diurese as indicated Assessment & Plan (06/05/2025 11:14 PM EDT): Diurese as indicated Assessment & Plan (06/02/2025 8:07 AM EDT): Diurese as indicated Assessment & Plan (06/01/2025 4:44 PM EDT): Diurese as indicated Assessment & Plan (05/31/2025 4:35 PM EDT): Diurese as indicated Assessment & Plan (05/30/2025 12:20 PM EDT): Diurese as indicated Assessment & Plan (05/29/2025 11:26 PM EDT): Diurese as indicated Assessment & Plan (05/29/2025 2:53 PM EDT): Diurese as indicated Assessment & Plan (05/28/2025 9:27 PM EDT): Diurese as indicated Assessment & Plan (05/28/2025 1:02 PM EDT): Diurese as indicated Agitation requiring sedation protocol 05/28/2025 06/02/2025 Assessment & Plan (06/02/2025 8:07 AM EDT): Precedex re-started 05/31, tolerating well. - Seroquel 75 BID- change to HS 14 Pt on Xanax at home Assessment & Plan (06/01/2025 4:44 PM EDT): Precedex re-started 05/31, tolerating well. - Seroquel 75 BID- change to HS 14 Pt on Xanax at home Assessment & Plan (05/31/2025 4:35 PM EDT): Precedex re-started 05/31, tolerating well. - Seroquel 75 BID Pt on Xanax at home Assessment & Plan (05/30/2025 12:20 PM EDT): Precedex re-started 05/31, tolerating well. - Seroquel 75 BID Pt on Xanax at home Assessment & Plan (05/29/2025 11:26 PM EDT): On propofol post op while on mechanical vent, attempted transition to precedex 9/10 pt increasingly agitated trying to sit up in bed Will onboard enteral agents as able Pt on Xanax at home Assessment & Plan (05/29/2025 2:53 PM EDT): On propofol post op while on mechanical vent, attempted transition to precedex 9/10 pt increasingly agitated trying to sit up in bed Will onboard enteral agents as able Pt on Xanax at home Assessment & Plan (05/28/2025 9:27 PM EDT): On propofol post op while on mechanical vent, attempted transition to precedex 9/10 pt increasingly agitated trying to sit up in bed Will onboard enteral agents as able Pt on Xanax at home Assessment & Plan (05/28/2025 1:02 PM EDT): On propofol post op while on mechanical vent, attempted transition to precedex 9/10 pt increasingly agitated trying to sit up in bed Will onboard enteral agents as able Pt on Xanax at home 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 Bharat Cary & Dona (06/05/2025 11:14 PM EDT): -repair 9/[address] Nicholson Assessment & Dona (06/02/2025 8:07 AM EDT): -repair 9/[address] Nicholson Assessment & Dona (06/01/2025 4:44 PM EDT): -repair 9/[address] Nicholson Assessment & Dona (05/31/2025 4:35 PM EDT): -repair 9/[address] Nicholson Assessment & Dona (05/30/2025 12:20 PM EDT): -repair 9/[address] Bharat Cervantes (05/29/2025 11:26 PM EDT): -repair 9/[address] Nicholson Assessment Chace Carcamo (05/29/2025 2:53 PM EDT): -repair 9/[address] Nicholson Assessment & Dona (05/28/2025 9:27 PM EDT): -repair 9/[address] Bharat Cervantes (05/28/2025 1:02 PM EDT): -repair 9/[address] Nicholson Assessment & Dona (05/28/2025 1:42 AM EDT): -repair [address] Nicholson Encounters Date Type Department Care Team Description 06/06/2025 Travel 06/05/2025 Travel 06/04/2025 Travel 06/03/2025 Travel 06/02/2025 Travel 06/01/2025 Travel 05/31/2025 Travel 05/30/2025 Travel 05/29/2025 Travel 05/28/2025 Travel 05/27/2025 7:00 AM EDT - 05/27/2025 6:20 PM EDT Surgery [facility] [address] [place] [address] Jose C Nicholson MD Ascending Aortic Replacement, Hemiarch, Circulatory Arrest, Aortic Arch Debranching [10121 (CPT )] 05/27/2025 6:59 AM EDT Anesthesia Event [facility] [address] [place] [address] Miguel Ángel Malave MD McConathy, Kelly E, CHILD CARE DEVELOPMENT SPECIALIST 05/27/2025 5:34 AM EDT - 06/07/2025 12:10 PM EDT Hospital Encounter [facility] [address] [place] [address] Jose C Nicholson MD Aneurysm of descending thoracic aorta without [...] type Discharge Disposition: Home or Self Care 05/27/2025 Travel 05/26/2025 Travel 05/21/2025 10:20 AM EDT Office Visit [place] [facility] [address] [place] [address] Cedrick Franz MD Asymptomatic stenosis of right carotid artery (Primary Dx); 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) 05/21/2025 8:51 AM EDT - 05/21/2025 11:59 PM EDT Hospital Encounter [facility] Vascular Lab [address] 5th Floor [address] [place] [address] 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); Asymptomatic stenosis of right carotid artery; 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) Discharge Disposition: Home or Self Care 05/21/2025 Travel 05/20/2025 Travel 05/17/2025 Travel 05/14/2025 2:22 PM EDT - 05/14/2025 11:59 PM EDT Hospital Encounter [facility] Radiology [address] [place] [address] 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) Discharge Disposition: Home or Self Care 05/14/2025 12:30 PM EDT Office Visit [facility] Cardiothoracic [address], [address] [place] [id number] Jose C Nicholson MD 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) 05/14/2025 Orders Only [facility] Cardiothoracic [address], [address] [place] [address] Jose C Nicholson MD 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 Patient unable to answer 05/30/2025 Do you belong to any clubs o r organizations such as judaism groups, unions, fraternal or athletic groups, or [...] and heating? Patient unable to answer 05/30/2025 [facility] - [...] any time in the past 12 m onths, were you homeless or living in a senior care (including now)? No 05/30/2025 [facility] Utilities Answer Date Recorded In the [...] Mass Index 24.56 05/29/2025 7:39 AM EDT Plan of Treatment Upcoming Encounters Date Type Department Care Team (Late st Contact Info) Description 06/25/2025 9:45 AM EDT Office Visit [facility] Cardiothoracic [address], [address] [place] [address] Jose C Nicholson MD [address] [place] [id number] 08/07/2025 12:20 PM EST Appointment [facility] Radiology [address] [place] [address] 08/07/2025 1:40 PM EST Office Visit [facility] [address] 5th [address] [place] [address] Cedrick Franz MD [address] [place] [address] Health Maintenance Due Date Last Done Comments [facility]-Bone Density Scan 1954 [facility]-Hepatitis C Screening 1954 [facility]-Medicare Annual Wellness (AWV) 1955 [facility]-Infant/Child/Adol SDOH Screenings 1954 [facility]-DTaP,Tdap,and Td Vaccines (1 - Tdap) 1973 CT Colonography 1999 Colonoscopy 1999 FIT 1999 FOBT 1999 Sigmoidoscopy 1999 [facility]-Breast Cancer Screening 2004 [facility]-RSV Vaccine: 60+ Years or (1 - Risk 60-74 years 1-dose series) 2014 [facility]-Zoster Vaccines (2 of 2) 11/14/2019 09/19/2019 [id number] Vaccine (3 - season) 2025 10/08/2021, 12/19/2020 [facility]-Influenza Vaccine (#1) 05/19/202508/07, 07/22/2022, 07/25/2021, Additional history exists [facility]- SDOH Screenings 11/27/2025 [facility]-Adult SDOH Screenings 11/27/2025 05/30/2025 [facility]-Depression Screening 03/19/2026 03/19/2025 FIT-DNA 10/17/2026 10/17/2023 [facility]-Colorectal Cancer Screening 10/17/2026 [facility]-Pneumococcal Vaccine: 50+ Years Completed 07/03/2023, 09/19/2019 [...] on patient's age to complete this topic Goals Goal Patient Goal Type Associated Problems Recent Progress Patient-Stated? Author Consistently take Medications as Prescribed General On track(09/20/2 025 11:40 AM EDT) Ca Moscoso RN Medical Devices Implanted Type Area Metal Template Maker Device Identifier Shelf Expiration Date Model / Serial / Lot Stent Transcarotid Enroute Tapered 8-6x40 - [id number] Implanted:Qty: 1 on 03/13/2025 by Cedrick Franz MD at [facility] Right: Carotid [facility] [employer]-[id number] 10/18/2027 [id number] -[id number] / / [id number] Graft Hemashield 12 - [id number] 16 - [id number] Implanted:Qty: 1 on 05/27/2025 by Jose C Nicholson MD at [facility] N/A: Heart [employer]-[id number] 12/16/2029 [id number] / [id number] / [id number] Graft Hemashield 7 - [id number] 21 - [id number] Implanted:Qty: 1 on 05/27/2025 by Jose C Nicholson MD at [facility] N/A: Heart [employer]-[id number] 08/17/2027 [id number] / [id number] / [id number] Graft Hemashield [place] [employer] 8x30 - [id number] 20 - [id number] Implanted:Qty: 1 on 05/27/2025 by Jose C Nicholson MD at [facility] N/A: Heart [employer]-[id number] 07/18/2029 [id number] / [id number] / [id number] Graft Hemashield Plat 28x30 - [id number] 12 - [id number] Implanted:Qty: 1 on 05/27/2025 by Jose C Nicholson MD at [facility] N/A: Heart [employer]-[id number] 10/18/2029 [id number] / [id number] / [id number] Graft Hemashield 32x10 - [id number] 22 - [id number] Implanted:Qty: 1 on 05/27/2025 by Jose C Nciholson MD at [facility] N/A: Heart [employer]-[id number] 01/15/2029 [id number] / [id number] / [id number] Procedures Procedure Name Priority Date/Time Associated Diagnosis Comments RENAL FUNCTION PANEL, PLASMA Routine 06/07/2025 4:10 AM EDT MAGNESIUM, PLASMA Routine 06/07/2025 4:10 AM EDT CBC W/O DIFFERENTIAL Routine 06/07/2025 4:10 AM EDT CBC WITH AUTO DIFFERENTIAL Routine 06/06/2025 10:45 AM EDT OXYGEN THERAPY Routine 06/06/2025 9:00 AM EDT PEP THERAPY Routine 06/06/2025 7:47 AM EDT CBC W/O DIFFERENTIAL Pending Discharge 06/06/2025 6:31 AM EDT PROCALCITONIN, PLASMA Pending Discharge 06/06/2025 5:45 AM EDT LACTATE, VENOUS Pending Discharge 06/06/2025 5:45 AM EDT BLOOD CULTURE (AEROBIC/ANAEROBIC SET) Pending Discharge 06/06/2025 5:45 AM EDT RENAL FUNCTION PANEL, PLASMA Pending Discharge 06/06/2025 5:01 AM EDT MAGNESIUM, PLASMA Pending Discharge 06/06/2025 5:01 AM EDT PEP THERAPY Routine 06/06/2025 1:[address] ANGIO NECK STAT 06/06/2025 12:[address] ANGIO HEAD STAT 06/06/2025 12:[address] ANGIO CHEST STAT 06/06/2025 12:59 AM EDT [facility], E/M 30-74 MINUTES Routine 06/05/2025 [...] MIXED VENOUS Routine 06/05/2025 10:05 PM EDT RENAL FUNCTION PANEL, PLASMA Routine 06/05/2025 10:05 PM EDT MAGNESIUM, PLASMA Routine 06/05/2025 10:05 PM EDT CBC W/O DIFFERENTIAL Routine 06/05/2025 10:05 PM EDT ECG ADULT STAT 06/05/2025 9:14 PM EDT OXYGEN THERAPY Routine 06/05/2025 9:00 PM EDT PEP THERAPY Routine 06/05/2025 7:47 PM EDT PEP THERAPY Routine 06/05/2025 1:47 PM EDT OXYGEN THERAPY Routine 06/05/2025 9:00 AM EDT PEP THERAPY Routine 06/05/2025 7:47 AM EDT RENAL FUNCTION PANEL, PLASMA Routine 06/05/2025 4:18 AM EDT MAGNESIUM, PLASMA Routine 06/05/2025 4:18 AM EDT CBC W/O DIFFERENTIAL Routine 06/05/2025 4:18 AM EDT XR CHEST [...] 1 VIEW Routine 06/04/2025 3:22 AM EDT LIPID PROFILE, PLASMA Add-On 06/04/2025 1:39 AM EDT RENAL FUNCTION PANEL, PLASMA Routine 06/04/2025 1:39 AM EDT MAGNESIUM, PLASMA Routine 06/04/2025 1:39 AM EDT CBC W/O DIFFERENTIAL Routine 06/04/2025 1:39 AM EDT POCT GLUCOSE METER [...] 1 VIEW Routine 06/03/2025 3:01 AM EDT RENAL FUNCTION PANEL, PLASMA Routine 06/03/2025 12:13 AM EDT MAGNESIUM, PLASMA Routine 06/03/2025 12:13 AM EDT CBC W/O DIFFERENTIAL Routine 06/03/2025 12:13 AM EDT PEP THERAPY [...] PEP THERAPY Routine 06/02/2025 7:17 AM EDT CBC W/O DIFFERENTIAL Routine 06/02/2025 2:57 AM EDT MAGNESIUM, PLASMA Routine 06/02/2025 2:57 AM EDT RENAL FUNCTION PANEL, PLASMA Routine 06/02/2025 2:57 AM EDT XR CHEST 1 VIEW Routine 06/02/2025 2:57 AM EDT EXTRA TUBE LAVENDER TOP Routine 06/01/2025 5:22 PM EDT EXTRA TUBES Routine 06/01/2025 5:22 PM EDT MAGNESIUM, PLASMA Add-On 06/01/2025 5:18 PM EDT RENAL FUNCTION PANEL, PLASMA Routine 06/01/2025 5:18 PM EDT POCT GLUCOSE METER UNSOLICITED RESULTS Routine 06/01/2025 5:13 PM EDT GA CRITICAL CARE, E/M 30-74 MINUTES Routine 06/01/2025 [...] PEP THERAPY Routine 05/31/2025 6:00 PM EDT GA CRITICAL CARE, E/M 30-74 MINUTES Routine 05/31/2025 [...] UNSOLICITED RESULTS Routine 05/30/2025 5:56 PM EDT BLOOD GAS PANEL, VENOUS Routine 05/30/2025 4:12 PM EDT MAGNESIUM, PLASMA Routine 05/30/2025 4:12 PM EDT RENAL FUNCTION PANEL, PLASMA Routine 05/30/2025 4:12 PM EDT OXYGEN THERAPY Routine 05/30/2025 2:48 PM EDT OXYGEN THERAPY Routine 05/30/2025 2:48 PM EDT EXTUBATION Routine 05/30/2025 2:48 PM EDT BLOOD GAS PANEL, VENOUS Routine 05/30/2025 2:35 PM EDT PEP THERAPY Routine 05/30/2025 2:00 PM EDT POCT GLUCOSE METER UNSOLICITED RESULTS Routine 05/30/2025 12:20 PM EDT GA CRITICAL CARE, ADDL 30 MIN Routine 05/30/2025 [...] 1 VIEW Routine 05/30/2025 2:18 AM EDT BLOOD GAS PANEL, ARTERIAL Routine 05/30/2025 12:58 AM EDT CBC W/O DIFFERENTIAL Routine 05/30/2025 12:58 AM EDT MAGNESIUM, PLASMA Routine 05/30/2025 12:58 AM EDT RENAL FUNCTION PANEL, PLASMA Routine 05/30/2025 12:58 AM EDT GA CRITICAL CARE, E/M 30-74 MINUTES Routine 05/29/2025 11:24 PM EDT 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 Poorly-controlled hypertension Agitation requiring sedation protocol Delirium due to multiple etiologies PEP THERAPY Routine 05/29/2025 10:00 PM EDT PEP THERAPY Routine 05/29/2025 6:00 PM EDT POCT GLUCOSE METER UNSOLICITED RESULTS Routine 05/29/2025 5:16 PM EDT GA CRITICAL CARE, ADDL 30 MIN Routine 05/29/2025 2:33 PM EDT 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) Chronic obstructive pulmonary disease, unspecified COPD type (CMS/HCC) H/O ascending aortic replacement Cardiac volume overload Agitation requiring sedation protocol BMI 25.0-25.9,adult Cerebral venous sinus thrombosis Delirium due to multiple etiologies History of right common carotid artery stent placement [facility], ADDL 30 MIN Routine 05/29/2025 [...] MIXED VENOUS Routine 05/29/2025 1:23 AM EDT MAGNESIUM, PLASMA Routine 05/29/2025 1:23 AM EDT BLOOD GAS PANEL, ARTERIAL Routine 05/29/2025 1:23 AM EDT TRIGLYCERIDES, PLASMA Timed 05/29/2025 1:23 AM EDT CBC W/O DIFFERENTIAL Routine 05/29/2025 1:23 AM EDT BASIC METABOLIC PANEL, PLASMA Routine 05/29/2025 1:23 AM EDT GA CRITICAL CARE, E/M 30-74 MINUTES Routine 05/29/2025 [...] PREPARE RBC Routine 05/28/2025 1:38 PM EDT GA CRITICAL CARE, ADDL 30 MIN Routine 05/28/2025 12:40 PM EDT 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 Poorly-controlled hypertension H/O transcarotid artery revascularization (TCAR) Cardiac volume overload Agitation requiring sedation protocol [facility] CRITICAL CARE, E/M 30-74 MINUTES Routine 05/28/2025 12:40 PM EDT 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 Poorly-controlled hypertension H/O transcarotid artery revascularization (TCAR) Cardiac volume overload Agitation requiring sedation protocol MAGNESIUM, PLASMA Add-On 05/28/2025 12:22 PM EDT CBC W/O DIFFERENTIAL Routine 05/28/2025 12:22 PM EDT RENAL FUNCTION PANEL, PLASMA Routine 05/28/2025 12:22 PM EDT POCT ARTERIAL BLOOD GAS GEM UNSOLICITED RESULTS Routine 05/28/2025 12:07 PM EDT PEP THERAPY Routine 05/28/2025 10:00 AM EDT END TIDAL CO2 MONITORING Routine 05/28/2025 8:00 AM EDT VENTILATOR - ADULT Routine 05/28/2025 8:00 AM EDT BLOOD GAS PANEL, ARTERIAL Routine 05/28/2025 7:54 AM EDT POTASSIUM, PLASMA Timed 05/28/2025 6:01 AM EDT HEMATOCRIT, BLOOD Timed 05/28/2025 6:01 AM EDT HEMOGLOBIN Timed 05/28/2025 6:01 AM EDT SBT - [...] UNSOLICITED RESULTS Routine 05/28/2025 2:16 AM EDT BLOOD GAS PANEL, ARTERIAL Timed 05/28/2025 2:09 AM EDT BASIC METABOLIC PANEL, PLASMA Timed 05/28/2025 2:09 AM EDT CBC W/O DIFFERENTIAL Timed 05/28/2025 2:09 AM EDT BLOOD GAS PANEL, ARTERIAL Timed 05/28/2025 12:14 AM EDT GA CRITICAL CARE, E/M 30-74 MINUTES Routine 05/27/2025 11:43 PM EDT 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) Chronic obstructive pulmonary disease, unspecified COPD type (CMS/HCC) 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 Hyperlipidemia, unspecified hyperlipidemia type Poorly-controlled hypertension POCT GLUCOSE METER UNSOLICITED RESULTS Routine 05/27/2025 10:21 PM EDT BLOOD GAS PANEL, ARTERIAL Timed 05/27/2025 10:17 PM EDT POTASSIUM, PLASMA Timed 05/27/2025 10:16 PM EDT HEMATOCRIT, BLOOD Timed 05/27/2025 10:16 PM EDT HEMOGLOBIN Timed 05/27/2025 10:16 PM EDT PEP THERAPY Routine 05/27/2025 10:00 PM EDT XR ABDOMEN 1 VIEW STAT 05/27/2025 9:34 PM EDT POCT GLUCOSE METER UNSOLICITED RESULTS Routine 05/27/2025 9:23 PM EDT END TIDAL CO2 MONITORING Routine 05/27/2025 8:00 PM EDT VENTILATOR - ADULT Routine 05/27/2025 8:00 PM EDT BLOOD GAS PANEL WITH OXIMETRY, MIXED VENOUS Routine 05/27/2025 7:55 PM EDT XR ABDOMEN 1 VIEW Routine 05/27/2025 7:06 PM EDT XR CHEST 1 VIEW STAT 05/27/2025 7:06 PM EDT SBT - SPONTANEOUS BREATHING TRIAL Routine 05/27/2025 6:50 PM EDT END TIDAL CO2 MONITORING Routine 05/27/2025 6:50 PM EDT END TIDAL CO2 MONITORING Routine 05/27/2025 6:50 PM EDT END TIDAL CO2 MONITORING Routine 05/27/2025 6:50 PM EDT VENTILATOR - [...] PEP THERAPY Routine 05/27/2025 6:48 PM EDT APTT STAT 05/27/2025 6:48 PM EDT PROTHROMBIN TIME(PT) / INR STAT 05/27/2025 6:48 PM EDT PHOSPHORUS, PLASMA STAT 05/27/2025 6:48 PM EDT MAGNESIUM, PLASMA STAT 05/27/2025 6:48 PM EDT BASIC METABOLIC PANEL, PLASMA STAT 05/27/2025 6:48 PM EDT CBC W/O DIFFERENTIAL STAT 05/27/2025 6:48 PM EDT SHAILA AURIS SURVEILLANCE BY PCR Routine 05/27/2025 6:48 PM EDT MULTI DRUG RESISTANCE TEST Routine 05/27/2025 6:48 PM EDT ECG ADULT STAT 05/27/2025 6:38 PM EDT XR CHEST 1 VIEW Routine 05/27/2025 6:07 PM EDT POCT ARTERIAL BLOOD GAS GEM UNSOLICITED RESULTS Routine 05/27/2025 5:42 PM EDT PB ANESTHESIA NON-TIMED PROCEDURE PLACEHOLDER Routine 05/27/2025 5:40 PM EDT TRANSFUSE FRESH FROZEN PLASMA Routine [...] QPLUS Routine 05/27/2025 2:46 PM EDT PREPARE CRYOPRECIPITATE STAT 05/27/2025 2:46 PM EDT PREPARE PLATELETS STAT 05/27/2025 2:46 PM EDT POCT ARTERIAL [...] EDT 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/HCC) POCT ARTERIAL BLOOD GAS GEM UNSOLICITED RESULTS [...] UNSOLICITED RESULTS Routine 05/27/2025 9:21 AM EDT ANESTHESIA ULTRASOUND GUIDED Routine 05/27/2025 7:40 AM EDT PB ANESTHESIA NON-TIMED PROCEDURE PLACEHOLDER Routine 05/27/2025 7:40 AM EDT GA AN CENTRAL LINE SINGLE LUMEN Routine 05/27/2025 7:40 AM EDT GA INSERT/PLACE FLOW DIRECT CATH Routine 05/27/2025 7:40 AM EDT ANESTHESIA ULTRASOUND GUIDED Routine 05/27/2025 7:40 AM EDT PB ANESTHESIA NON-TIMED PROCEDURE PLACEHOLDER Routine 05/27/2025 7:40 AM EDT GA AN CENTRAL LINE DOUBLE LUMEN Routine 05/27/2025 7:40 AM EDT PB ANESTHESIA NON-TIMED PROCEDURE PLACEHOLDER Routine 05/27/2025 7:29 AM EDT PB ANESTHESIA PLACEHOLDER Routine 05/27/2025 7:25 AM EDT GA AN ELECTIVE ENDOTRACHEAL AIRWAY Routine 05/27/2025 7:25 AM EDT POCT ARTERIAL BLOOD GAS GEM [...] PREPARE RBC STAT 05/27/2025 7:08 AM EDT GA -AORT GRF W/CARD BYP F/AORTIC DISSECTION 05/27/2025 6:44 AM EDT 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) TYPE AND SCREEN Routine 05/27/2025 6:28 AM EDT VAS US CAROTID DUPLEX BILATERAL Routine 05/21/2025 9:10 AM EDT 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) Asymptomatic stenosis of right carotid artery 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) XR CHEST 2 VIEWS Routine 05/14/2025 2:32 PM EDT 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) CBC WITH AUTO DIFFERENTIAL Routine 05/14/2025 2:18 PM EDT 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) COMPREHENSIVE METABOLIC PANEL, PLASMA Routine 05/14/2025 2:18 PM EDT 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) HEMOGLOBIN A1C Routine 05/14/2025 2:18 PM EDT 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 WBC Count 11.61(H) 3.70 - 10.30 10*3/uL LAB HEMATOLOGY METHOD 06/07/2025 4:29 AM EDT [facility] RBC Count 3.38(L) 3.90 - 5.20 10*6/uL LAB HEMATOLOGY METHOD 06/07/2025 4:29 AM EDT [facility] HGB 9.7(L) 11.2 - 15.7 g/dL LAB HEMATOLOGY METHOD 06/07/2025 4:29 AM EDT [facility] HCT 30.4(L) 34.0 - 45.0 % LAB HEMATOLOGY METHOD 06/07/2025 4:29 AM EDT [facility] Platelet Count 381(H) 155 - 369 10*3/uL LAB HEMATOLOGY METHOD 06/07/2025 4:29 AM EDT [facility] MCV 90 79 - 98 fL LAB HEMATOLOGY METHOD 06/07/2025 4:29 AM EDT [facility] MCH 28.7 26.0 - 32.0 pg LAB HEMATOLOGY METHOD 06/07/2025 4:29 AM EDT [facility] MCHC 31.9 30.7 - 35.5 g/dL LAB HEMATOLOGY METHOD 06/07/2025 4:29 AM EDT [facility] RDW 14.9(H) 11.5 - 14.5 % LAB HEMATOLOGY METHOD 06/07/2025 4:29 AM EDT [facility] MPV 10.3 8.8 - 12.5 fL LAB HEMATOLOGY METHOD 06/07/2025 4:29 AM EDT [facility] nRBC 0.0 <=0.0 per 100 WBCs LAB HEMATOLOGY METHOD 06/07/2025 4:29 AM EDT [facility] Blood Venous blood specimen / Unknown Venipuncture / Unknown 06/07/2025 4:10 AM EDT 06/07/2025 4:23 AM EDT us Jaxon De La Rosa CHILD CARE DEVELOPMENT SPECIALIST, DNP LAB BLOOD ORDERABLES Fi nal Result [facility] [address] [place] [address] * Magnesium, Plasma (06/07/2025 4:10 AM EDT) Only the most recent of18 resultswithin the time period is included. Magnesium, Plasma 2.0 1.9 - 2.4 mg/dL 06/07/2025 5:03 AM EDT [facility] Blood Venous blood specimen / Unknown Venipuncture / Unknown 06/07/2025 4:10 AM EDT 06/07/2025 4:22 AM EDT us Jaxon De La Rosa CHILD CARE DEVELOPMENT SPECIALIST, DNP LAB BLOOD ORDERABLES Fi nal Result [facility] [address] [place] [address] * (ABNORMAL) Renal Function Panel, Plasma (06/07/2025 4:10 AM EDT) Only the most recent of14 resultswithin the time period is included. Glucose, Plasma 85 74 - 99 mg/dL 06/07/2025 5:03 AM EDT [facility] BUN, Plasma 23 8 - 23 mg/dL 06/07/2025 5:03 AM EDT [facility] Creatinine, Plasma 0.57(L) 0.60 - 1.10 mg/dL 06/07/2025 5:03 AM EDT [facility] BUN/Creatinine Ratio 40 06/07/2025 5:03 AM EDT [facility] Sodium, Plasma 137 136 - 145 mmol/L 06/07/2025 5:03 AM EDT [facility] Potassium, Plasma 3.5(L) 3.6 - 4.9 mmol/L 06/07/2025 5:03 AM EDT [facility] Chloride, Plasma 108(H) 97 - 107 mmol/L 06/07/2025 5:03 AM EDT [facility] CO2, Plasma 18(L) 22 - 29 mmol/L 06/07/2025 5:03 AM EDT [facility] Anion Gap 11 6 - 16 mmol/L 06/07/2025 5:03 AM EDT [facility] Total Calcium, Plasma 8.5(L) 8.9 - 10.2 mg/dL 06/07/2025 5:03 AM EDT [facility] Phosphorus, Plasma 2.3(L) 2.5 - 4.5 mg/dL 06/07/2025 5:03 AM EDT [facility] Albumin, Plasma 3.0(L) 3.5 - 5.2 g/dL 06/07/2025 5:03 AM EDT [facility] eGFRcr 97.3 mL/min/1.7 3m*2 06/07/2025 5:03 AM EDT [facility] Comment:Reported eGFRcr in m L/min/1.73m2 is based the CKD-EPI 2020 equation that does not use a race coefficient. Blood Venous blood specimen / Unknown Venipuncture / Unknown 06/07/2025 4:10 AM EDT 06/07/2025 4:22 AM EDT us Jaxon De La Rosa CHILD CARE DEVELOPMENT SPECIALIST, DNP LAB BLOOD ORDERABLES Fi nal Result [facility] [address] [place] [address] * (ABNORMAL) CBC and differential (06/06/2025 10:45 AM EDT) Only the most recent of3 resultswithin the time period is included. WBC Count 18.13(H) 3.70 - 10.30 10*3/uL LAB HEMATOLOGY METHOD 06/06/2025 11:28 AM EDT [facility] RBC Count 3.50(L) 3.90 - 5.20 10*6/uL LAB HEMATOLOGY METHOD 06/06/2025 11:28 AM EDT [facility] HGB 10.0(L) 11.2 - 15.7 g/dL LAB HEMATOLOGY METHOD 06/06/2025 11:28 AM EDT [facility] HCT 31.3(L) 34.0 - 45.0 % LAB HEMATOLOGY METHOD 06/06/2025 11:28 AM EDT [facility] Platelet Count 441(H) 155 - 369 10*3/uL LAB HEMATOLOGY METHOD 06/06/2025 11:28 AM EDT [facility] MCV 89 79 - 98 fL LAB HEMATOLOGY METHOD 06/06/2025 11:28 AM EDT [facility] MCH 28.6 26.0 - 32.0 pg LAB HEMATOLOGY METHOD 06/06/2025 11:28 AM EDT [facility] MCHC 31.9 30.7 - 35.5 g/dL LAB HEMATOLOGY METHOD 06/06/2025 11:28 AM EDT [facility] RDW 15.6(H) 11.5 - 14.5 % LAB HEMATOLOGY METHOD 06/06/2025 11:28 AM EDT [facility] MPV 11.0 8.8 - 12.5 fL LAB HEMATOLOGY METHOD 06/06/2025 11:28 AM EDT [facility] nRBC 0.0 <=0.0 per 100 WBCs LAB HEMATOLOGY METHOD 06/06/2025 11:28 AM EDT [facility] Differential Type Automated LAB HEMATOLOGY METHOD 06/06/2025 11:28 AM EDT [facility] Neutrophils % 84 % LAB HEMATOLOGY METHOD 06/06/2025 11:28 AM EDT [facility] Lymphocytes % 9 % LAB HEMATOLOGY METHOD 06/06/2025 11:28 AM EDT [facility] Monocytes % 4 % LAB HEMATOLOGY METHOD 06/06/2025 11:28 AM EDT [facility] Eosinophils % 2 % LAB HEMATOLOGY METHOD 06/06/2025 11:28 AM EDT [facility] Basophils % 0 % LAB HEMATOLOGY METHOD 06/06/2025 11:28 AM EDT [facility] Immature Granulocytes % 1 % LAB HEMATOLOGY METHOD 06/06/2025 11:28 AM EDT [facility] Neutrophils Absolute 15.33(H) 1.60 - 6.10 10*3/uL LAB HEMATOLOGY METHOD 06/06/2025 11:28 AM EDT [facility] Lymphocytes Absolute 1.65 1.20 - 3.90 10*3/uL LAB HEMATOLOGY METHOD 06/06/2025 11:28 AM EDT [facility] Monocytes Absolute 0.67 0.30 - 0.90 10*3/uL LAB HEMATOLOGY METHOD 06/06/2025 11:28 AM EDT [facility] Eosinophils Absolute 0.27 0.00 - 0.50 10*3/uL LAB HEMATOLOGY METHOD 06/06/2025 11:28 AM EDT [facility] Basophils Absolute 0.05 0.00 - 0.10 10*3/uL LAB HEMATOLOGY METHOD 06/06/2025 11:28 AM EDT [facility] Immature Granulocytes Absolute 0.16(H) 0.00 - 0.06 10*3/uL LAB HEMATOLOGY METHOD 06/06/2025 11:28 AM EDT [facility] Blood Venous blood specimen / Unknown Venipuncture / Unknown 06/06/2025 10:45 AM EDT 06/06/2025 11:09 AM EDT Narrative [facility] - 06/06/2025 11:28 AM EDT Therapeutic decision making should be based on absolute values, rather than percentages. us Jose C Nicholson MD LAB BLOOD ORDERABLES Final Resu lt Performing Organization Address City/[facility]/ZIP Co de Phone Number [facility] [address] [place] [address] * LACTIC ACID, VENOUS (06/06/2025 5:45 AM EDT) Lactate, Venous, Whole Blood 1.4 0.5 - 2.2 mmol/L LAB HEMATOLOGY METHOD 06/06/2025 6:02 AM EDT [facility] Blood Venous blood specimen / Unknown Venipuncture / Unknown 06/06/2025 5:45 AM EDT 06/06/2025 6:00 AM EDT us Jaxon De La Rosa APRN, DNP LAB BLOOD ORDERABLES Fi nal Result Performing Organization Address City/[facility]/ZIP Co de Phone Number [facility] [address] [place] [address] * (ABNORMAL) Procalcitonin (06/06/2025 5:45 AM EDT) Procalcitonin, Plasma 0.12(H) <0.09 ng/mL 06/06/2025 6:50 AM EDT [facility] Blood Venous blood specimen / Unknown Venipuncture / Unknown 06/06/2025 5:45 AM EDT 06/06/2025 6:16 AM EDT Narrative [facility] - 06/06/2025 6:50 AM EDT Procalcitonin [...] predict 28 day mortality risk. Please consult [email or web address]-pwk-[email or web address] for more information. Test performed at [facility], [facility]. Jaxon De La Rosa APRN, DNP LAB BLOOD ORDERABLES Fi nal Result Performing Organization Address [facility]/[place] [address] * Blood Culture (Aerobic/Anaerobet Set) (06/06/2025 5:45 AM EDT) Culture No growth at day 5 SRINIVAS 06/11/2025 8:02 AM EDT [facility] Blood Structure of antecubital vein / Unknown Venipuncture / Unknown 06/06/2025 5:45 AM EDT 06/06/2025 7:46 AM EDT Jaxon De La Rosa APRN, DNP LAB MICROBIOLOGY - GENE RAL ORDERABLES Final Result Performing Organization Address [facility]/[place] [address] * CT Angio Chest (06/06/2025 12:59 AM [...] CT PROCEDURES Final Result * CT Angio Neck (06/06/2025 12:59 AM [...] COMMUNICATION: Per this written report. An urgent Ujogo secured message was sent to the responding [...] Total DLP (Dose-Length Product): 792.33 mGy.cm (accession [id number]), 792.33 mGy.cm (accession [id number]). Please note: The reported value represents the [...] no aneurysm of either internal carotid artery. [place] and Major Peripheral Branches: There [...] Total DLP (Dose-Length Product): 792.33 mGy.cm (accession [id number]),792.33 mGy.cm (accession [id number]). Please note: The reported valuerepresents the total [...] no aneurysm of either internal carotid artery. [place] and Major Peripheral Branches: There [...] COMMUNICATION: Per this written report. An urgent Ujogo secured message was sent to the responding clinician,JAXON DE LA ROSA, by Jemal Lei MD on 06/06/2025 3:02 AM. Receipt of understanding via secured messaging was provided by theresponding clinician, JAXON DE LA ROSA, by Jemal Lei MD on 53:04 AM. Drafted by Jemal Lei MD on 06/06/2025 2:49 AM Final report signed by Jemal Lei MD on 06/06/2025 3:07 AM us Jaxon De La Rosa CHILD CARE DEVELOPMENT SPECIALIST, DNP IMG CT PROCEDURES Final Result * CT Angio Head (06/06/2025 12:59 AM EDT) Anatomical Region Laterality Modality [place] Computed Tomogr aphy Impressions 06/06/2025 [...] COMMUNICATION: Per this written report. An urgent Ujogo secured message was sent to the responding [...] Total DLP (Dose-Length Product): 792.33 mGy.cm (accession [id number]), 792.33 mGy.cm (accession [id number]). Please note: The reported value represents the [...] no aneurysm of either internal carotid artery. [place] and Major Peripheral Branches: There [...] Total DLP (Dose-Length Product): 792.33 mGy.cm (accession [id number]),792.33 mGy.cm (accession [id number]). Please note: The reported valuerepresents the total [...] no aneurysm of either internal carotid artery. [place] and Major Peripheral Branches: There [...] COMMUNICATION: Per this written report. An urgent Ujogo secured message was sent to the responding clinician,JAXON DE LA ROSA, by Jemal Lei MD on 06/06/2025 3:02 AM. Receipt of understanding via secured messaging was provided by theresponding clinician, JAXON DE LA ROSA, by Jemal Lei MD on 53:04 AM. Drafted by Jemal Lei MD on 06/06/2025 2:49 AM Final report signed by Jemal Lei MD on 06/06/2025 3:07 AM us Jaxon De La Rosa CHILD CARE DEVELOPMENT SPECIALIST, DNP IMG CT PROCEDURES Final Result * GA CRITICAL CARE, E/M 30-74 MINUTES (06/05/2025 11:06 [...] oximetry, mixed venous (06/05/2025 10:05 PM EDT) Only the most recent of4 resultswithin the time period is included. pH, Mixed Venous 7.37 7.32 - 7.43 LAB HEMATOLOGY METHOD 06/05/2025 10:29 PM EDT [facility] pCO2, Mixed Venous 36(L) 37 - 52 mmHg LAB HEMATOLOGY METHOD 06/05/2025 10:29 PM EDT [facility] pO2, Mixed Venous 67(H) 25 - 40 mmHg LAB HEMATOLOGY METHOD 06/05/2025 10:29 PM EDT [facility] SO2, Measured, Mixed Venous 91(H) 65 - 80 % LAB HEMATOLOGY METHOD 06/05/2025 10:29 PM EDT [facility] Bicarbonate, Calculated, Mixed Venous 21(L) 22 - 26 mmol/L LAB HEMATOLOGY METHOD 06/05/2025 10:29 PM EDT [facility] Base Excess, Mixed Venous -3.7(L) -2.0 - 3.0 mmol/L LAB HEMATOLOGY METHOD 06/05/2025 10:29 PM EDT [facility] Hematocrit, Whole Blood 34.9 34.0 - 45.0 % LAB HEMATOLOGY METHOD 06/05/2025 10:29 PM EDT [facility] Sodium, Whole Blood 138 136 - 145 mmol/L LAB HEMATOLOGY METHOD 06/05/2025 10:29 PM EDT [facility] Potassium, Whole Blood 3.8 3.6 - 4.9 mmol/L LAB HEMATOLOGY METHOD 06/05/2025 10:29 PM EDT [facility] Chloride, Whole Blood 107 97 - 107 mmol/L LAB HEMATOLOGY METHOD 06/05/2025 10:29 PM EDT [facility] Ionized Calcium, Whole Blood 4.7 4.6 - 5.1 mg/dL LAB HEMATOLOGY METHOD 06/05/2025 10:29 PM EDT [facility] Glucose, Whole Blood 130(H) 74 - 99 mg/dL LAB HEMATOLOGY METHOD 06/05/2025 10:29 PM EDT [facility] Oxyhemoglobin, Mixed Venous, Whole Blood 89.9(H) 40.0 - 70.0 % LAB HEMATOLOGY METHOD 06/05/2025 10:29 PM EDT [facility] Hemoglobin Reduced, Mixed Venous, Whole Blood 8.7 % LAB HEMATOLOGY METHOD 06/05/2025 10:29 PM EDT [facility] Total Hemoglobin, Mixed Venous, Whole Blood 11.4 11.2 - 15.7 g/dL LAB HEMATOLOGY METHOD 06/05/2025 10:29 PM EDT [facility] Blood Mixed venous blood specimen / Unknown Venipuncture / Unknown 06/05/2025 10:05 PM EDT 06/05/2025 10:26 PM EDT us Georgie Green APRN LAB BLOOD ORDERABLES Final Res ult [facility] [address] [place] [address] * ECG Adult (06/05/2025 9:14 PM EDT) Only the most recent of4 resultswithin the time period is included. EKG DIAGNOSIS CLASS Borderline Abnormal MUSE ECG Ventricular Rate 107 BPM MUSE ECG Atrial Rate 107 BPM MUSE ECG GA Interval 142 ms MUSE ECG QRSD Interval 74 ms MUSE ECG QT Interval 352 ms MUSE ECG QTC Interval 469 ms MUSE ECG P [place] 66 degrees MUSE ECG R [place] 20 degrees MUSE ECG T Wave [place] 50 degrees MUSE ECG Diagnosis Poor data quality, interpretation may be adversely affected MUSE ECG Diagnosis Sinus tachycardia with occasional premature ventricular complexes MUSE ECG Diagnosis Possible Left atrial enlargement MUSE ECG Diagnosis Borderline ECG MUSE ECG Diagnosis MUSE ECG Diagnosis Confirmed by Roberto Espinal ([id number]) on 06/06/2025 1:02:31 PM MUSE ECG 06/05/2025 9:14 PM EDT 06/06/2025 1:02 PM EDT Georgie Green CHILD CARE DEVELOPMENT SPECIALIST ECG ORDERABLES Final Result MUSE ECG * XR Chest 1 View (06/05/2025 2:47 AM EDT) Only the most recent of11 resultswithin the time period is included. Anatomical Region Laterality Modality Chest Digital Radiogra [...] POCT glucose meter (06/04/2025 5:53 AM EDT) Only the most recent of18 resultswithin the time period is included. POCT Glucose 108(H) 74 - 99 mg/dL [...] for testing. Comment 06/04/2025 5:55 AM EDT [facility] Honing Machine Set Up Operator Tool ID Hari Chapin 06/04/2025 5:55 AM EDT [facility] Device ID [id number] 06/04/2025 5:55 AM EDT [facility] Specimen Type POC Capillary 06/04/2025 5:55 AM EDT [facility] Blood Capillary blood specimen / Unknown 06/04/2025 5:53 AM EDT 06/04/2025 5:55 AM EDT us Jose C Nicholson MD LAB POINT OF CARE TE ST DOCKED DEVICE UNSOLICITED RESULTS Final Result [facility] [address] [place] [id number] * (ABNORMAL) Lipid panel (06/04/2025 1:39 AM EDT) Cholesterol, Plasma 131 <200 mg/dL 06/04/2025 2:18 PM EDT [facility] Comment: Cholesterol Reference Range (age >17 years): Desirable <200 mg/dL Borderline 200 to 239 mg/dL Undesirable >239 mg/dL HDL 36(L) >=50 mg/dL 06/04/2025 2:18 PM EDT [facility] Comment: HDL Cholesterol Reference Ranges (age >17 years): Female, acceptable > or = 50 mg/dL Male, acceptable > or = 40 mg/dL Triglycerides, Plasma 126 <150 mg/dL 06/04/2025 2:18 PM EDT [facility] Comment: Triglyceride Reference Range (age >17 years): Desirable: <150 mg/dL Borderline high: 150 to 199 mg/dL High: 200 to 499 mg/dL Very high: >499 mg/dL Increased risk of pancreatitis: >1000 mg/dL Cholesterol/HDL Ratio 4 06/04/2025 2:18 PM EDT [facility] LDL, Calculated 72 <100 mg/dL 2:18 PM EDT [facility] Comment: LDL Cholesterol Reference Range (age [...] 12 hours? Unknown 06/04/2025 2:18 PM EDT [facility] Blood Venous blood specimen / Unknown Venipuncture / Unknown 06/04/2025 1:39 AM EDT 06/04/2025 1:52 AM EDT us Jenna Brown CHILD CARE DEVELOPMENT SPECIALIST LAB BLOOD ORDERABLES Final R esult [facility] [address] [place] [address] * (ABNORMAL) Basic metabolic panel (06/03/2025 5:44 PM EDT) Only the most recent of4 resultswithin the time period is included. Pathologist [facility] Glucose, Plasma 119(H) 74 - 99 mg/dL 06/03/2025 6:44 PM EDT [facility] BUN, Plasma 33(H) 8 - 23 mg/dL 06/03/2025 6:44 PM EDT [facility] Creatinine, Plasma 0.60 0.60 - 1.10 mg/dL 06/03/2025 6:44 PM EDT [facility] BUN/Creatinine Ratio 55 06/03/2025 6:44 PM EDT [facility] Sodium, Plasma 143 136 - 145 mmol/L 06/03/2025 6:44 PM EDT [facility] Potassium, Plasma 4.0 3.6 - 4.9 mmol/L 06/03/2025 6:44 PM EDT [facility] Chloride, Plasma 106 97 - 107 mmol/L 06/03/2025 6:44 PM EDT [facility] CO2, Plasma 25 22 - 29 mmol/L 06/03/2025 6:44 PM EDT [facility] Anion Gap 12 6 - 16 mmol/L 06/03/2025 6:44 PM EDT [facility] Total Calcium, Plasma 9.4 8.9 - 10.2 mg/dL 06/03/2025 6:44 PM EDT [facility] eGFRcr 96.1 mL/min/1.7 3m*2 06/03/2025 6:44 PM EDT [facility] Comment:Reported eGFRcr in m L/min/1.73m2 is based the CKD-EPI 2020 equation that does not use a race coefficient. Blood Venous blood specimen / Unknown Venipuncture / Unknown 06/03/2025 5:44 PM EDT 06/03/2025 6:10 PM EDT us Jose C Nicholson MD LAB BLOOD ORDERABLES Final Resu lt [facility] [address] [place] [address] * FL Modified Barium Swallow (06/03/2025 11:25 [...] Jerry Bearden MD on 06/03/2025 4:31 PM us Yvrose Campbell APRN IMG FLUOROSCOPY PROCEDURES Final Result * Lavender Top (06/01/2025 5:22 PM EDT) Extra Hold for add-ons 06/01/2025 8:01 PM EDT [facility] Comment:Auto resulted. Blood Venous blood specimen / Unknown 06/01/2025 5:22 PM EDT 06/01/2025 5:22 PM EDT us Jose C Nicholson MD LAB BLOOD ORDERABLES Final Resu lt [facility] [address] [place] [address] * GA CRITICAL CARE, E/M 30-74 MINUTES (06/01/2025 4:35 [...] FSVS, RPVI on06/02/2025 5:48 PM Nidia Vance CHILD CARE DEVELOPMENT SPECIALIST CV VASCULAR PROCEDURES Barbara wynn Result * XR Abdomen 1 View (06/01/2025 8:45 AM EDT) Only the most recent of4 resultswithin the time period is included. Anatomical Region Laterality Modality Body Digital Radiogra [...] Reyez MD on 06/01/2025 8:59 AM Yvrose Campbell APRN IMG XR PROCEDURES Final Re sult * [place] CRITICAL CARE, E/M 30-74 MINUTES (05/31/2025 4:29 [...] CLINIC/BEDSIDE ORDERABL ES Final Result * (ABNORMAL) Blood gas panel, venous (05/30/2025 4:12 PM EDT) Only the most recent of2 resultswithin the time period is included. pH, Venous 7.42 7.32 - 7.43 LAB HEMATOLOGY METHOD 05/30/2025 4:24 PM EDT [facility] pCO2, Venous 46 37 - 52 mmHg LAB HEMATOLOGY METHOD 05/30/2025 4:24 PM EDT [facility] pO2, Venous 34 25 - 40 mmHg LAB HEMATOLOGY METHOD 05/30/2025 4:24 PM EDT [facility] SO2, Measured, Venous 67 65 - 80 % LAB HEMATOLOGY METHOD 05/30/2025 4:24 PM EDT [facility] Base Excess, Venous 4.8(H) -2.0 - 3.0 mmol/L LAB HEMATOLOGY METHOD 05/30/2025 4:24 PM EDT [facility] Bicarbonate, Calculated, Venous 30(H) 22 - 26 mmol/L LAB HEMATOLOGY METHOD 05/30/2025 4:24 PM EDT [facility] Hematocrit, Whole Blood 29.2(L) 34.0 - 45.0 % LAB HEMATOLOGY METHOD 05/30/2025 4:24 PM EDT [facility] Sodium, Whole Blood 147(H) 136 - 145 mmol/L LAB HEMATOLOGY METHOD 05/30/2025 4:24 PM EDT [facility] Potassium, Whole Blood 3.4(L) 3.6 - 4.9 mmol/L LAB HEMATOLOGY METHOD 05/30/2025 4:24 PM EDT [facility] Chloride, Whole Blood 108(H) 97 - 107 mmol/L LAB HEMATOLOGY METHOD 05/30/2025 4:24 PM EDT [facility] Glucose, Whole Blood 135(H) 74 - 99 mg/dL LAB HEMATOLOGY METHOD 05/30/2025 4:24 PM EDT [facility] Lactate, Venous, Whole Blood 1.4 0.5 - 2.2 mmol/L LAB HEMATOLOGY METHOD 05/30/2025 4:24 PM EDT [facility] Ionized Calcium, Whole Blood 5.0 4.6 - 5.1 mg/dL LAB HEMATOLOGY METHOD 05/30/2025 4:24 PM EDT [facility] Blood Venous blood specimen / Unknown Venipuncture / Unknown 05/30/2025 4:12 PM EDT 05/30/2025 4:22 PM EDT us Jose C Nicholson MD LAB BLOOD ORDERABLES Final Resu lt [facility] [address] [place] [address] * [place] CRITICAL CARE, ADDL 30 MIN (05/30/2025 12:09 [...] CLINIC/BEDSIDE ORDERABLE S Final Result * (ABNORMAL) Blood gas, arterial (05/30/2025 4:23 AM EDT) Only the most recent of11 resultswithin the time period is included. pH, Arterial 7.43(H) 7.31 - 7.42 LAB HEMATOLOGY METHOD 05/30/2025 4:36 AM EDT [facility] pCO2, Arterial 43 35 - 48 mmHg LAB HEMATOLOGY METHOD 05/30/2025 4:36 AM EDT [facility] pO2, Arterial 78 >70 mmHg LAB HEMATOLOGY METHOD 05/30/2025 4:36 AM EDT [facility] SO2, Measured, Arterial 96 94 - 98 % LAB HEMATOLOGY METHOD 05/30/2025 4:36 AM EDT [facility] Base Excess, Arterial 3.7(H) -2.0 - 3.0 mmol/L LAB HEMATOLOGY METHOD 05/30/2025 4:36 AM EDT [facility] Bicarbonate, Calculated, Arterial 28(H) 22 - 26 mmol/L LAB HEMATOLOGY METHOD 05/30/2025 4:36 AM EDT [facility] Hematocrit, Whole Blood 29.0(L) 34.0 - 45.0 % LAB HEMATOLOGY METHOD 05/30/2025 4:36 AM EDT [facility] Sodium, Whole Blood 147(H) 136 - 145 mmol/L LAB HEMATOLOGY METHOD 05/30/2025 4:36 AM EDT [facility] Potassium, Whole Blood 3.8 3.6 - 4.9 mmol/L LAB HEMATOLOGY METHOD 05/30/2025 4:36 AM EDT [facility] Chloride, Whole Blood 110(H) 97 - 107 mmol/L LAB HEMATOLOGY METHOD 05/30/2025 4:36 AM EDT [facility] Glucose, Whole Blood 127(H) 74 - 99 mg/dL LAB HEMATOLOGY METHOD 05/30/2025 4:36 AM EDT [facility] Ionized Calcium, Whole Blood 5.1 4.6 - 5.1 mg/dL LAB HEMATOLOGY METHOD 05/30/2025 4:36 AM EDT [facility] Lactate, Arterial, Whole Blood 0.9 0.5 - 1.6 mmol/L LAB HEMATOLOGY METHOD 05/30/2025 4:36 AM EDT [facility] Blood Arterial blood specimen / Unknown Arterial Puncture / Unknown 05/30/2025 4:23 AM EDT 05/30/2025 4:34 AM EDT us Jose C Nicholson MD LAB BLOOD ORDERABLES Final Resu lt [facility] [address] [place] [address] * (ABNORMAL) Blood gas panel, mixed venous (05/30/2025 4:22 AM EDT) pH, Mixed Venous 7.41 7.32 - 7.43 LAB HEMATOLOGY METHOD 05/30/2025 4:36 AM EDT [facility] pCO2, Mixed Venous 46 37 - 52 mmHg LAB HEMATOLOGY METHOD 05/30/2025 4:36 AM EDT [facility] pO2, Mixed Venous 37 25 - 40 mmHg LAB HEMATOLOGY METHOD 05/30/2025 4:36 AM EDT [facility] SO2, Measured, Mixed Venous 73 65 - 80 % LAB HEMATOLOGY METHOD 05/30/2025 4:36 AM EDT [facility] Base Excess, Mixed Venous 3.7(H) -2.0 - 3.0 mmol/L LAB HEMATOLOGY METHOD 05/30/2025 4:36 AM EDT [facility] Bicarbonate, Calculated, Mixed Venous 29(H) 22 - 26 mmol/L LAB HEMATOLOGY METHOD 05/30/2025 4:36 AM EDT [facility] Hematocrit, Whole Blood 28.6(L) 34.0 - 45.0 % LAB HEMATOLOGY METHOD 05/30/2025 4:36 AM EDT [facility] Sodium, Whole Blood 147(H) 136 - 145 mmol/L LAB HEMATOLOGY METHOD 05/30/2025 4:36 AM EDT [facility] Potassium, Whole Blood 3.7 3.6 - 4.9 mmol/L LAB HEMATOLOGY METHOD 05/30/2025 4:36 AM EDT [facility] Chloride, Whole Blood 111(H) 97 - 107 mmol/L LAB HEMATOLOGY METHOD 05/30/2025 4:36 AM EDT [facility] Ionized Calcium, Whole Blood 5.0 4.6 - 5.1 mg/dL LAB HEMATOLOGY METHOD 05/30/2025 4:36 AM EDT [facility] Glucose, Whole Blood 125(H) 74 - 99 mg/dL LAB HEMATOLOGY METHOD 05/30/2025 4:36 AM EDT [facility] Blood Mixed venous blood specimen / Unknown Venipuncture / Unknown 05/30/2025 4:22 AM EDT 05/30/2025 4:34 AM EDT us Nidia Vance APRN LAB BLOOD ORDERABLES Final Result [facility] [address] [place] [address] * [place] CRITICAL CARE, E/M 30-74 MINUTES (05/29/2025 11:24 [...] and nursing services were present on rounds. ANA MARIA Dee APRN, DNP IN CLINIC/BEDSIDE ORDERABLES Final Result * GA CRITICAL CARE, ADDL 30 MIN, GA CRITICAL CARE, ADDL 30 MIN (05/29/2025 2:33 PM EDT) Narrative Nidia Vance APRN - 05/29/2025 2:33 PM EDT Jose C Nicholson MD 05/31/2025 12:03 PM Critical Care Performed by: Nidia Vnace APRN Authorized by: Nidia Vance APRN Critical [...] IN CLINIC/BEDSIDE ORDERABLE S Final Result * Triglycerides (05/29/2025 1:23 AM EDT) Triglycerides, Plasma 109 <150 mg/dL 05/29/2025 2:22 AM EDT [facility] Comment: Triglyceride Reference Range (age >17 years): Desirable: <150 mg/dL Borderline high: 150 to 199 mg/dL High: 200 to 499 mg/dL Very high: >499 mg/dL Increased risk of pancreatitis: >1000 mg/dL Fasting greater than or equal to 12 hours? Yes 05/29/2025 2:22 AM EDT [facility] Blood Venous blood specimen / Unknown Venipuncture / Unknown 05/29/2025 1:23 AM EDT 05/29/2025 1:29 AM EDT us Yvrose Campbell APRN LAB BLOOD ORDERABLES Final Result [facility] [address] [place] [address] * [place] CRITICAL CARE, E/M 30-74 MINUTES (05/29/2025 12:40 [...] were present on rounds. Gabby Duenas APRN, SILVER HOLLOWARE ASSEMBLER, DNP IN CLINIC/BEDSIDE ORDERABLES Final Result * (ABNORMAL) Hemoglobin and Hematocrit, Blood (05/28/2025 5:07 PM EDT) HGB 10.0(L) 11.2 - 15.7 g/dL LAB HEMATOLOGY METHOD 05/28/2025 5:33 PM EDT [facility] HCT 29.1(L) 34.0 - 45.0 % LAB HEMATOLOGY METHOD 05/28/2025 5:33 PM EDT [facility] Blood Arterial blood specimen / Unknown Arterial Puncture / Unknown 05/28/2025 5:07 PM EDT 05/28/2025 5:23 PM EDT Yvrose Campbell APRN LAB BLOOD ORDERABLES Final Result [facility] [address] [place] [address] * Transfuse RBC (05/28/2025 4:32 PM EDT) Only the most recent of6 resultswithin the time period is included. Yvrose Campbell APRN BLOOD TRANSFUSION ORDERABL ES Final Result * Prepare Leukocyte Reduced RBC: 1 Units (05/28/2025 1:38 PM EDT) Only the most recent of3 resultswithin the time period is included. Product Code [id number] CH BLOO D BANK Dispense Status Transfused BLOOD BANK Blood Expiration Date [id number] BLOOD BANK Unit Number [id number] CH B LOOD BANK Product Blood Type 6200 BLOOD BANK Blood Type A+ BLOOD BANK [employer] [facility] Other Yvrose Campbell APRN BLOOD BANK PRODUCT ORDERAB LES Final Result BLOOD BANK [address] [place] [address], * [place] CRITICAL CARE, E/M 30-74 MINUTES, [place] CRITICAL CARE, ADDL 30 MIN (05/28/2025 12:40 [...] ORDERABL ES Final Result * (ABNORMAL) POCT arterial blood gas gem (05/28/2025 12:07 PM EDT) Only the most recent of14 resultswithin the time period is included. pH, Arterial 7.38 7.31 - 7.42 05/28/2025 12:09 PM EDT [facility] pCO2, Arterial 43 35 - 48 mm Hg 05/28/2025 12:09 PM EDT [facility] pO2, Arterial 89 >70 mm Hg 05/28/2025 12:09 PM EDT [facility] SO2, Arterial 98 94 - 98 % 05/28/2025 12:09 PM EDT [facility] FIO2 50.0 % 05/28/2025 12:09 PM EDT [facility] Base Excess, Arterial 0.2 -2 - 3 mmol/L 05/28/2025 12:09 PM EDT [facility] HCO3, Arterial 25.4 22 - 26 mmol/L 05/28/2025 12:09 PM EDT [facility] Total Hemoglobin, Arterial, Whole Blood 8.3(L) 11.2 - 15.7 g/dL 05/28/2025 12:09 PM [facility] Hematocrit, Arterial 25.0(L) 34.0 - 45.0 % 05/28/2025 12:09 PM [facility] Sodium, Arterial 145 136 - 145 mmol/L 05/28/2025 12:09 PM [facility] Potassium, Arterial 3.9 3.6 - 4.9 mmol/L 05/28/2025 12:09 PM [facility] Chloride, Whole Blood 107 97 - 107 mmol/L 05/28/2025 12:09 PM [facility] Glucose, Arterial 136(H) 74 - 99 mg/dL 05/28/2025 12:09 PM [facility] Ionized Calcium, Arterial 4.6 4.6 - 5.1 mg/dL 05/28/2025 12:09 PM [facility] Lactate, Arterial 3.3(H) 0.5 - 1.6 mmol/L 05/28/2025 12:09 PM T [facility] Body Temperature 37.0 Celsius 05/28/2025 12:09 PM [facility] pH, Temp Corrected, Arterial 7.38 7.31 - 7.42 05/28/2025 12:09 PM [facility] pCO2, Temp Corrected, Arterial 43 35 - 48 mm Hg 05/28/2025 12:09 PM EDT [facility] pO2, Temp Corrected, Arterial 89 >70 mm Hg 05/28/2025 12:09 PM EDT [facility] Honing Machine Set Up Operator Tool Kelly [place] 05/28/2025 12:09 PM EDT [facility] Blood, Arterial Whole blood specimen / Unknown 05/28/2025 12:07 PM EDT 05/28/2025 12:09 PM EDT us Jose C Nicholson MD LAB POINT OF CARE TE ST DOCKED DEVICE UNSOLICITED RESULTS Final Result Performing Organization Address City/[facility]/ZIP Co de Phone Number [facility] [address] [place] [address] * (ABNORMAL) Hemoglobin (05/28/2025 6:01 AM EDT) Only the most recent of2 resultswithin the time period is included. HGB 10.1(L) 11.2 - 15.7 g/dL LAB HEMATOLOGY METHOD 05/28/2025 6:20 AM EDT [facility] Blood Arterial blood specimen / Unknown Arterial Puncture / Unknown 05/28/2025 6:01 AM EDT 05/28/2025 6:11 AM EDT us Jose C Nicholson MD LAB BLOOD ORDERABLES Final Resu lt Performing Organization Address City/[facility]/RUST Co de Phone Number [facility] [address] [place] [address] * (ABNORMAL) Hematocrit (05/28/2025 6:01 AM EDT) Only the most recent of2 resultswithin the time period is included. HCT 29.0(L) 34.0 - 45.0 % LAB HEMATOLOGY METHOD 05/28/2025 6:20 AM EDT [facility] Blood Arterial blood specimen / Unknown Arterial Puncture / Unknown 05/28/2025 6:01 AM EDT 05/28/2025 6:11 AM EDT us Jose C Nicholson MD LAB BLOOD ORDERABLES Final Resu lt Performing Organization Address City/[facility]/ZIP Co de Phone Number [facility] [address] [place] [address] * Potassium, Plasma (05/28/2025 6:01 AM EDT) Only the most recent of2 resultswithin the time period is included. Potassium, Plasma 3.8 3.6 - 4.9 mmol/L 05/28/2025 6:34 AM EDT [facility] Comment:Hemolyzed, result ma y be falsely increased. Blood Arterial blood specimen / Unknown Arterial Puncture / Unknown 05/28/2025 6:01 AM EDT 05/28/2025 6:10 AM EDT us Jose C Nicholson MD LAB BLOOD ORDERABLES Final Resu lt Performing Organization Address [facility]/RUST Co de Phone Number [facility] [address] [place] [address] * Phosphorus (05/28/2025 5:13 AM EDT) Only the most recent of2 resultswithin the time period is included. Phosphorus, Plasma 4.1 2.5 - 4.5 mg/dL 05/28/2025 5:54 AM EDT [facility] Blood Arterial blood specimen / Unknown Arterial Puncture / Unknown 05/28/2025 5:13 AM EDT 05/28/2025 5:25 AM EDT Rosalba Andre APRN LAB BLOOD ORDERABLES Barbara l Result Performing Organization Address [facility]/[place] [address] * [place] CRITICAL CARE, E/M 30-74 MINUTES (05/27/2025 11:43 [...] IN CLINIC/BEDSIDE ORDERAB LES Final Result * Shaila auris Surveillance by PCR (05/27/2025 6:48 PM EDT) Shaila auris PCR Result Not Detected Not Detected 05/28/2025 3:04 PM EDT [facility] Swab (Axilla and Groin) Non-blood Collection / Unknown 05/27/2025 6:48 PM EDT 05/27/2025 7:07 PM EDT Narrative [facility] - 05/28/2025 3:04 PM EDT This PCR assay was developed and its performance characteristics determined by [facility] as appropriate for clinical purposes. This assay has not been cleared or approved by the FDA, but is performed in a CLIA regulated laboratory that is qualified to perform high-complexity testing. us Jose C Nicholson MD LAB MICROBIOLOGY - GENERAL ORDE [facility] Final Result [facility] [address] [place] [address] * Multi Drug Resistance Test (05/27/2025 6:48 PM EDT) Culture No growth at day 1 05/28/2025 9:07 PM EDT [facility] Swab (Nares and Frances Rectal) Non-blood Collection / Unknown 05/27/2025 6:48 PM EDT 05/27/2025 7:07 PM EDT Narrative [facility] - 05/28/2025 9:07 PM EDT This test was developed and its performance characteristics determined by the [facility]. Although the media is FDA-approved, it is not FDA-approved for all specimen types submitted. The FDA has determined that such clearance or approval is not necessary. This test is used for surveillance purposes. It should not be regarded as investigational or for research. The [facility] is certified under the Clinical Laboratory Improvement Amendments of 1988 (CLIA-88) as qualified to perform high complexity clinical laboratory testing. Jose C Nicholson MD LAB MICROBIOLOGY - GENERAL ORDE RABLES Final Result Performing Organization Address City/[facility]/[place] [address] * APTT (05/27/2025 6:48 PM EDT) Only the most recent of2 resultswithin the time period is included. aPTT 28 25 - 35 sec LAB COAGULATION METHOD 05/27/2025 7:42 PM EDT [facility] Blood Venous blood specimen / Unknown Venipuncture / Unknown 05/27/2025 6:48 PM EDT 05/27/2025 6:54 PM EDT Jose C Nicholson MD LAB BLOOD ORDERABLES Final Resu lt Performing Organization Address [facility] [place] [address] * (ABNORMAL) Protime-INR (05/27/2025 6:48 PM EDT) Only the most recent of2 resultswithin the time period is included. Prothrombin Time 10.6(L) 12.0 - 14.3 sec LAB COAGULATION METHOD 05/27/2025 7:47 PM EDT [facility] INR 0.7(L) 0.9 - 1.1 LAB COAGULATION METHOD 05/27/2025 7:47 PM EDT [facility] Blood Venous blood specimen / Unknown Venipuncture / Unknown 05/27/2025 6:48 PM EDT 05/27/2025 6:54 PM EDT Narrative [facility] - 05/27/2025 7:47 PM EDT OPTIMAL INR RANGES FOR PATIENT ON ORAL ANTICOAGULANT THERAPY Prevention of venous thromboembolism INR 2.0 to 3.0 In patients with heart disease: Atrial fibrillation INR 2.0 to 3.0 Valvular heart disease INR 2.0 to 3.0 Tissue heart valves INR 2.0 to 3.0 Mechanical prosthetic valves INR 2.5 to 3.5 Prevention of recurrent PA INR 2.5 to 3.5 Jose C Nicholson MD LAB BLOOD ORDERABLES Final Resu lt [facility] [address] [place] [address] * PB ANESTHESIA NON-TIMED PROCEDURE PLACEHOLDER (05/27/2025 [...] procedure Miguel Ángel Malave MD ANESTHESIA ORDERABLES Edite d Result - Final * Transfuse fresh frozen plasma (05/27/2025 5:18 PM EDT) Only the most recent of4 resultswithin the time period is included. Miguel Ángel Malave MD BLOOD TRANSFUSION ORDERABLE S Final Result * QPLUS (05/27/2025 4:27 PM EDT) Only the most recent of3 resultswithin the time period is included. [facility] Clot Time 150 104 - 166 Seconds 05/27/2025 4:41 PM EDT [facility] Clot Time Ratio 1.0 0.8 [...] - 33.2 hectoPascals 05/27/2025 4:41 PM EDT [facility] Platelet Contribution to Clot Stiffnes 18.0 11.9 - 29.8 hectoPascals 05/27/2025 4:41 PM EDT [facility] Fibrinogen Contribution to Clot Stiffness 2.5 1.0 - 3.7 hectoPascals 05/27/2025 4:41 PM EDT [facility] Heparinase Clot Time 147 103 - 153 Seconds 05/27/2025 4:41 PM EDT [facility] Honing Machine Set Up Operator Tool ID Dot [employer] 05/27/2025 4:41 PM EDT [facility] Device ID [id number] 05/27/2025 4:41 PM EDT [facility] Whole Blood 05/27/2025 4:27 PM EDT 05/27/2025 4:41 PM EDT Jose C Nicholson MD LAB POINT OF CARE TE ST DOCKED DEVICE UNSOLICITED RESULTS Final Result Performing Organization Address [facility] de Phone Number [facility] [address] [place] [address] * Transfuse platelets (05/27/2025 4:07 PM EDT) Only the most recent of3 resultswithin the time period is included. Miguel Ángel Malave MD BLOOD TRANSFUSION ORDERABLE S Final Result * Prepare Leukocyte Reduced Platelets: 1 Units (05/27/2025 3:58 PM EDT) Only the most recent of2 resultswithin the time period is included. [facility] Product Code [id number] BLOO D BANK Dispense Status Transfused BLOOD BANK Blood Expiration Date [id number] BLOOD BANK Unit Number [id number] CH B LOOD BANK Product Blood Type 6200 BLOOD BANK Blood Type A+ BLOOD BANK Blood Venous blood specimen / Unknown Jose C Nicholson MD BLOOD BANK PRODUCT ORDERABLES F inal Result Performing Organization Address [facility]/[place] Co de Phone Number BLOOD BANK [address] [place] [address] * POCT ACT (05/27/2025 3:40 PM EDT) Only the most recent of4 resultswithin the time period is included. ACT+ (HIGH RANGE) 140 68 - 600 Seconds 06/14/2025 3:51 AM EDT [facility] Honing Machine Set Up Operator Tool ID Krzysztof Gooden 06/14/2025 3:51 AM EDT [facility] ACT Device ID [id number] 06/14/2025 3:51 AM EDT [facility] Comment 06/14/2025 3:51 AM EDT [facility] Comment: ACT performed by staff [...] ST DOCKED DEVICE UNSOLICITED RESULTS Final Result [facility] [address] [place] [address] * Transfuse cryoprecipitate (05/27/2025 3:36 PM EDT) Only the most recent of2 resultswithin the time period is included. Miguel Ángel Malave MD BLOOD TRANSFUSION ORDERABLE S Final Result * (ABNORMAL) TEG Global Hemostasis with Heparinase (05/27/2025 2:52 PM EDT) R >17.0(H) 4.6 - 9.1 min 05/27/2025 4:38 PM EDT [facility] R, Heparinase 11.1(H) 4.3 - 8.3 min 05/27/2025 4:38 PM EDT [facility] K 05/27/2025 4:38 PM EDT [facility] Comment:Interfering substanc es present. Parameter cannot be measured. Angle <39.0(L) 63.0 - 78.0 degrees 05/27/2025 4:38 PM EDT [facility] MA <40.0(L) 52.0 - 69.0 mm 05/27/2025 4:38 PM EDT [facility] MA, Rapid 05/27/2025 4:38 PM EDT [facility] Comment:Interfering substanc es present. Parameter cannot be measured. MA, Fibrinogen 05/27/2025 4:38 PM EDT [facility] Comment:Interfering substanc es present. Parameter cannot be measured. FLEV 05/27/2025 4:38 PM EDT [facility] Comment:Interfering substanc es present. Parameter cannot be measured. 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] us Jose C Nicholson MD LAB BLOOD ORDERABLES Final Resu lt [facility] [address] [place] [address] * Prepare Cryoprecipitate: 2 Pools (05/27/2025 2:46 PM EDT) Product Code [id number] CH BLOO D BANK Dispense Status Transfused BLOOD BANK Blood Expiration Date [id number] BLOOD BANK Unit Number [id number] CH B LOOD BANK Product Blood Type 6200 BLOOD BANK Blood Type A+ CH BLOOD BANK Product Code [id number] CH BLOO D BANK Dispense Status Transfused BLOOD BANK Blood Expiration Date [id number] BLOOD BANK Unit Number [id number] CH B LOOD BANK Product Blood Type 6200 BLOOD BANK Blood Type A+ CH BLOOD BANK Blood Venous blood specimen / Unknown us Jose C Nicholson MD BLOOD BANK PRODUCT ORDERABLES E dited Result - Final BLOOD BANK [address] [place] [address], * Prepare Fresh Frozen Plasma: 2 Units (05/27/2025 2:15 PM EDT) Only the most recent of2 resultswithin the time period is included. Product Code X9274C91 CH BLOO D BANK Dispense Status Transfused CH BLOOD BANK Blood Expiration Date [id number] CH BLOOD BANK Unit Number [id number] CH B LOOD BANK Product Blood Type 6200 CH BLOOD BANK Blood Type A+ CH BLOOD BANK Product Code [id number] CH BLOO D BANK Dispense Status Transfused CH BLOOD BANK Blood Expiration Date [id number] BLOOD BANK Unit Number [id number] CH B LOOD BANK Product Blood Type 6200 BLOOD BANK Blood Type A+ CH BLOOD BANK Blood Venous blood specimen / Unknown Jose C Nicholson MD BLOOD BANK PRODUCT ORDERABLES F inal Result Performing Organization Address City/[facility]/[place]UST Co de Phone Number BLOOD BANK [address] [place] [address], * Surgical Pathology Exam (05/27/2025 1:16 PM EDT) Case Report Surgical Pathology Case: [id number] Authorizing Provider: Jose C Nicholson MD Collected: 05/27/2025 1316 Ordering Location: [facility] A OPERATING ROOM Received: 05/28/2025 0741 Pathologist: Christin Armijo MD Specimen: Other (specify site), ascending aortic aneurysm 05/29/2025 4:47 PM EDT [facility] Final Diagnosis A. ASCENDING AORTIC ANEURYSM, REPLACEMENT: - MEDIAL DEGENERATION AND DYSTROPHIC CALCIFICATIONS. 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 ASCENDING AORTIC ANEURYSM Received in formalin labeled ascending aortic aneurysm , is an aggregate of pink-sotomayor vascular tissue, grossly consistent with aorta, measuring 6.7 x 5.5 x 3.4 cm. Full Stack Python Developer sections are submitted in cassette A1. 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] us Jose C Nicholson MD LAB PATHOLOGY ORDERABLES Final Result [facility] [address] [place] [address] * GA AN CENTRAL LINE SINGLE LUMEN, PB ANESTHESIA [...] Malave MD ANESTHESIA ORDERABLES Final Result * GA AN CENTRAL LINE DOUBLE LUMEN, PB ANESTHESIA NON-TIMED PROCEDURE PLACEHOLDER, ANESTHESIA ULTRASOUND GUIDED, GA INSERT/PLACE FLOW DIRECT CATH (05/27/2025 7:40 AM [...] NON-TIMED PROCEDURE PLACEHOLDER (05/27/2025 7:29 AM EDT) Miguel Ángel Barnes MD - 05/27/2025 7:29 AM EDT Miguel [...] Malave MD ANESTHESIA ORDERABLES Final Result * GA AN ELECTIVE ENDOTRACHEAL AIRWAY, PB ANESTHESIA PLACEHOLDER [...] Malave MD ANESTHESIA ORDERABLES Final Result * TEG Global Hemostasis with Lysis (05/27/2025 7:16 AM EDT) R, Lysis 5.0 4.6 - 9.1 min 05/27/2025 8:20 AM EDT [facility] MA, Rapid, Lysis 64.6 52.0 - 70.0 mm 05/27/2025 8:20 AM EDT [facility] MA, Fibrinogen, Lysis 19.6 15.0 - 32.0 mm 05/27/2025 8:20 AM EDT [facility] LY30 0.3 0.0 - 2.6 % 05/27/2025 8:20 AM EDT [facility] Blood Arterial blood specimen / Unknown 05/27/2025 7:16 AM EDT 05/27/2025 7:23 AM EDT Comment: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] us Jose C Nicholson MD LAB BLOOD ORDERABLES Final Resu lt [facility] [address] [place] [address] * Fibrinogen, Quantitative (Clottable) (05/27/2025 7:16 AM EDT) Fibrinogen, Quantitative (Clottable) 352 208 - 459 mg/dL LAB COAGULATION METHOD 05/27/2025 7:51 AM EDT [facility] Blood Arterial blood specimen / Unknown 05/27/2025 7:16 AM EDT 05/27/2025 7:24 AM EDT Comment: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 ABO/Rh A Positive 05/27/2025 6:07 AM EDT BLOOD BANK Antibody Screen Negative 05/27/2025 6:07 AM EDT BLOOD BANK Specimen Expiration 05/30/2025 23:59 05/27/2025 6:07 AM EDT BLOOD BANK Blood Venous blood specimen / Unknown Venipuncture / Unknown 05/27/2025 6:28 AM EDT 05/27/2025 6:46 AM EDT Jose C Nicholson MD LAB BLOOD BANK TEST ORDERABLES Final Result Performing Organization Address [facility] de Phone Number BLOOD BANK [address] [place] [address], [place] * VAS US Carotid Duplex Bilateral (05/21/2025 [...] cm/s Subclavian A: 160 cm/s Procedure Note Analisa Reilly MD - 05/25/2025 CLINICAL INDICATION: Surveillance for [...] Analisa Reilly MD on 05/25/2025 3:11 PM Sarah Alas CHILD CARE DEVELOPMENT SPECIALIST CV VASCULAR PROCEDURES Final R esult * XR Chest 2 Views (05/14/2025 2:32 [...] MD IMG XR PROCEDURES Final Result * Hemoglobin A1c (05/14/2025 2:18 PM EDT) Hemoglobin A1c 5.4 <5.7 % 05/14/2025 4:46 PM EDT [facility] Blood Venous blood specimen / Unknown Venipuncture / Unknown 05/14/2025 2:18 PM EDT 05/14/2025 2:21 PM EDT Narrative [facility] - 05/14/2025 4:46 PM EDT HA1C Interpretive Data: Diagnosis of Diabetes: Diabetic > or = 6.5% Pre-diabetic 5.7 to 6.4% Non-diabetic < or = 5.6% Glycemic Targets for Type I and Type II Diabetics: Non- Adults <7.0% Adults <6.0% Children and Adolescents <7.5% Source: [place] [employer]. Standards of medical care in diabetes,2017. Diabetes Care.2017:40 (suppl 1):S1-S135. Jose C Nicholson MD LAB BLOOD ORDERABLES Final Resu lt [facility] [address] [place] [address] * (ABNORMAL) Comprehensive metabolic panel (05/14/2025 2:18 PM EDT) [facility] Glucose, Plasma 105(H) 74 - 99 mg/dL 05/14/2025 4:38 PM EDT [facility] BUN, Plasma 23 8 - 23 mg/dL 05/14/2025 4:38 PM EDT [facility] Creatinine, Plasma 0.98 0.60 - 1.10 mg/dL 05/14/2025 4:38 PM EDT [facility] BUN/Creatinine Ratio 23 05/14/2025 4:38 PM EDT [facility] Sodium, Plasma 140 136 - 145 mmol/L 05/14/2025 4:38 PM EDT [facility] Potassium, Plasma 3.7 3.6 - 4.9 mmol/L 05/14/2025 4:38 PM EDT [facility] Chloride, Plasma 101 97 - 107 mmol/L 05/14/2025 4:38 PM EDT [facility] CO2, Plasma 25 22 - 29 mmol/L 05/14/2025 4:38 PM EDT [facility] Anion Gap 14 6 - 16 mmol/L 05/14/2025 4:38 PM EDT [facility] Total Calcium, Plasma 10.2 8.9 - 10.2 mg/dL 05/14/2025 4:38 PM EDT [facility] Total Protein 7.6 6.3 - 7.9 g/dL 05/14/2025 4:38 PM EDT [facility] Albumin, Plasma 4.7 3.5 - 5.2 g/dL 05/14/2025 4:38 PM EDT [facility] AST, Plasma 32 10 - 35 U/L 05/14/2025 4:38 PM EDT [facility] ALT, Plasma 18 10 - 35 U/L 05/14/2025 4:38 PM EDT [facility] Alkaline Phosphatase, Plasma 132 46 - 142 U/L 05/14/2025 4:38 PM EDT [facility] Total Bilirubin, Plasma 0.5 0.2 - 1.1 mg/dL 05/14/2025 4:38 PM EDT [facility] eGFRcr 61.8 mL/min/1.7 3m*2 05/14/2025 4:38 PM EDT [facility] Comment:Reported eGFRcr in m L/min/1.73m2 is based the CKD-EPI 2020 equation that does not use a race coefficient. Blood Venous blood specimen / Unknown Venipuncture / Unknown 05/14/2025 2:18 PM EDT 05/14/2025 2:21 PM EDT us Jose C Nicholson MD LAB BLOOD ORDERABLES Final Resu lt [facility] [address] [place] [address] from Last 3 Months Insurance Advance Directives * Full Code (Latest Code Status on File) Date Activated Date Inactivated Comments 05/27/2025 6:48 PM 06/07/2025 2:17 PM Question Answer Comments I have reviewed the capacity from the link above and, if needed, have updated to appropriate status: Yes * Full Code Date Activated Date Inactivated Comments 03/13/2025 9:51 [...] Patient has decision-making capacity? Yes Care Teams Diagnostic Technologist Relationship Specialty Start Date End Date Edwardo Sheehan MD [address] [place] [address] PCP - General 12/19/22 Jose R Umana MD [address] [place] [address] [address] [place] [address] Referring Physician Cardiology 01/23/25 Kevin Mancera MD [address] [place] [address] [place] [address] Referring Physician 01/31/25
--- OUTSIDE RECORDS SUMMARY | 2025-06-16 09:04 | XMS_ITS | Encounter Summary ---
Author Organization Healthcare Address [address] [place] [address] Care Team Providers Care Grass Farm Laborer Name Role Phone Edwardo Sheehan MD Primary Care Provider [phone] Jose R Umana MD Unavailable [phone] Kevin Mancera MD Unavailable [phone] Encounter Details Date Type Department Care Team (Latest Contact Info) Description 06/03/2025 Travel Social History Tobacco Use Types Packs/Day [...] How often do you attend chur or buddhist services? Patient unable to answer 05/30/2025 Do you belong to any clubs o r organizations such as mosque groups, unions, fraternal or athletic groups, or [...] and heating? Patient unable to answer 05/30/2025 [facility] Occupat ional Health - Occupational [...] any time in the past 12 m [facility], were you homeless or living in a assisted (including now)? No 05/30/2025 [facility] Utilities Answer Date Recorded In the past [...] Date of Assessment Author No Risk Indicated 06/03/2025 8:00 AM EDT Russ Hernandez RN * Question Answer Date of Assessment Author 1. Wish to be (Past 1 Month) No 025 8:00 AM EDT Russ Hernandez RN 2. Non-Specific Active Suici arnaldo Thoughts (Past 1 Month) No 06/03/2025 8:00 AM EDT Lauren Hernandez RN 6. Suicidal Behavior (Lifetime) No 5 8:00 AM EDT Russ Hernandez RN documented as of this encounter Plan of Treatment Upcoming Encounters Date Type Department Care Team (Late st Contact Info) Description 06/25/2025 9:45 AM EDT Office Visit [facility] [address], [address] [place] [address] Jose C Nicholson MD [address] [place] [address] 08/07/2025 12:20 PM EST Appointment [facility] [address] [place] [address] 08/07/2025 1:40 PM EST Office Visit [facility] [address] 5th Floor [address] [place] [address] Cedrick Franz MD [address] [place] [address] documented as of this encounter Visit Diagnoses Not on filedocumented in this encounter Additional Health Concerns Assessment Noted Time A fall risk assessment has been complete d for the patient 05/21/2025 9:30 AM EDT A Body Mass Index follow-up plan has been documented for the patient 06/07/2025 11:45 AM EDT documented as of this encounter Care Teams Grass Farm Laborer Relationship Specialty Start Date End Date Edwardo Sheehan MD [address] [place] [address] PCP - General 12/19/22 Jose R Umana MD 1210 [facility] [address] [place] [address] Referring Physician Cardiology 01/23/25 Kevin Mancera MD [facility] [address] [place] [address] Referring Physician 01/31/25 documented as of this encounter
--- OUTSIDE RECORDS SUMMARY | 2025-06-16 09:04 | XMS_ITS | Encounter Summary ---
Author Organization Healthcare Address [address] [place] [address] Care Team Providers Care Gambling Box Person Name Role Phone Edwardo Sheehan MD Primary Care Provider [phone] Jose R Umana MD Unavailable [phone] Kevin Mancera MD Unavailable [phone] Encounter Details Date Type Department Care Team (Latest Contact Info) Description 06/01/2025 Travel Social History Tobacco Use Types Packs/Day [...] How often do you attend chur or restorationism services? Patient unable to answer 05/30/2025 Do you belong to any clubs o r organizations such as scientologist groups, unions, fraternal or athletic groups, or [...] and heating? Patient unable to answer 05/30/2025 [facility] Occupat ional Health - [...] any time in the past 12 m [facility], were you homeless or living in a fdc (including now)? No 05/30/2025 [facility] Utilities Answer Date Recorded In the [...] Date of Assessment Author No Risk Indicated 06/01/2025 8:00 PM EDT Simón Cash, ABHILASH * Question Answer Date of Assessment Author 1. Wish to be (Past 1 Month) No 025 8:00 PM EDT Simón Cash, RN 2. Non-Specific Active Suici arnaldo Thoughts (Past 1 Month) No 06/01/2025 8:00 PM EDT Simón Cash, RN 6. Suicidal Behavior (Lifetime) No 5 8:00 PM EDT Simón Cash, RN documented as of this encounter Plan of Treatment Upcoming Encounters Date Type Department Care Team (Late st Contact Info) Description 06/25/2025 9:45 AM EDT [facility] [address], [address] [place] [address] Jose C Nicholson MD [address] [place] [address] 08/07/2025 12:20 PM EST Appointment [facility] Radiology [address] [place] [address] 08/07/2025 1:40 PM EST [facility] [address] 5th Floor [address] [place] [address] Cedrick Franz MD [address] [facility] [address] [place] [address] documented as of this encounter Visit Diagnoses Not on filedocumented in this encounter Additional Health Concerns Assessment Noted Time A fall risk assessment has been complete d for the patient 05/21/2025 9:30 AM EDT A Body Mass Index follow-up plan has been documented for the patient 06/07/2025 11:45 AM EDT documented as of this encounter Care Teams Gambling Box Person Relationship Specialty Start Date End Date Edwardo Sheehan MD [address] [place] [address] PCP - General 12/19/22 Jose R Umana MD 1210 [facility] [address] [place] [address] Referring Physician Cardiology 01/23/25 Kevin Mancera MD [address] [place] [address] [address] [place] [address] Referring Physician 01/31/25 documented as of this encounter
--- OUTSIDE RECORDS SUMMARY | 2025-06-16 09:04 | XMS_ITS | Encounter Summary ---
Author Organization Healthcare Address [address] [place] [address] Care Team Providers Care Machine Hamper Maker Name Role Phone Edwardo Sheehan MD Primary Care Provider [phone] Jose R Umana MD Unavailable [phone] Kevin Mancera MD Unavailable [phone] Encounter Details Date Type Department Care Team (Latest Contact Info) Description 06/02/2025 Travel Social History Tobacco Use Types Packs/Day [...] How often do you attend chur or latter day services? Patient unable to answer 05/30/2025 Do you belong to any clubs o r organizations such as jainism groups, unions, fraternal or athletic groups, or [...] to answer 05/30/2025 [facility] Occupat ional Health - [...] any time in the past 12 m [facility], were you homeless or living in a intermediate (including now)? No 05/30/2025 [facility] Utilities Answer Date Recorded In the past [...] Date of Assessment Author No Risk Indicated 06/02/2025 8:00 PM EDT Ansley De La Torre RN * Question Answer Date of Assessment Author 1. Wish to be (Past 1 Month) No 06/02/2025 8:00 PM EDT Ansley Hernandez RN 2. Non-Specific Active Suici arnaldo Thoughts (Past 1 Month) No 06/02/2025 8:00 PM EDT Manuel Hernandez RN 6. Suicidal Behavior (Lifetime) No 8:00 PM EDT Ansley Hernandez RN documented as of this encounter Plan of Treatment Upcoming Encounters Date Type Department Care Team (Late st Contact Info) Description 06/25/2025 9:45 AM EDT Office Visit [facility] [address], [address] [place] [address] Jose C Nicholson MD [address] [place] [address] 08/07/2025 12:20 PM EST Appointment [facility] Radiology [address] [place] [address] 08/07/2025 1:40 PM EST Office Visit [facility] [address] 5th Floor [address] [place] [address] Cedrick Franz MD [address] [facility] [address] [place] [address] documented as of this encounter Visit Diagnoses Not on filedocumented in this encounter Additional Health Concerns Assessment Noted Time A fall risk assessment has been complete d for the patient 05/21/2025 9:30 AM EDT A Body Mass Index follow-up plan has been documented for the patient 06/07/2025 11:45 AM EDT documented as of this encounter Care Teams Machine Hamper Maker Relationship Specialty Start Date End Date Edwardo Sheehan MD [address] [place] [address] PCP - General 12/19/22 Jose R Umana MD 1210 [facility] [address] [place] [address] Referring Physician Cardiology 01/23/25 Kevin Mancera MD [address]20 [facility] [address] [place] [address] Referring Physician 01/31/25 documented as of this encounter
--- OUTSIDE RECORDS SUMMARY | 2025-06-16 09:04 | XMS_ITS | Encounter Summary ---
Author Organization [facility] yste Address [address] [place] [address] Care Team Providers Care Career Consultant Name Role Phone Edwardo Sheehan MD Primary Care Provider [phone] Encounter Details Date Type Department Care Team (Late st Contact Info) Description 12/27/2024 Patient rounding ([facility] only) [facility] CARDIOTHORACIC SURGERY [address] [place] [address] [address] [place] [address] Kaye Macedo RegSched Rep Social History Tobacco Use Types Packs/Day Years Used Date Smoking Tobacco: Former Cigarettes 1 [address] tarted: 1973 Smokeless Tobacco: Never Comments:Patient did smoke o n and off during the time she used [...] Start Date 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
--- OUTSIDE RECORDS SUMMARY | 2025-06-16 09:05 | XMS_ITS | Encounter Summary ---
Author Organization Healthcare Address [address] [place] [address] Care Team Providers Care Heel Shaper Name Role Phone Edwardo Sheehan MD Primary Care Provider [phone] Jose R Umana MD Unavailable [phone] Kevin Mancera MD Unavailable [phone] Encounter Details Date Type Department Care Team (Latest Contact Info) Description 05/31/2025 Travel Social History Tobacco Use Types Packs/Day [...] How often do you attend chur or hindu services? Patient unable to answer 05/30/2025 Do you belong to any clubs o r organizations such as jehovah's witness groups, unions, fraternal or athletic groups, or [...] heating? Patient unable to answer 05/30/2025 [facility] of Occupat ional Health - [...] any time in the past 12 m [facility], were you homeless or living in a alf (including now)? No 05/30/2025 [facility] Utilities Answer Date Recorded In the [...] Date of Assessment Author No Risk Indicated 05/31/2025 8:00 PM EDT Elena Patrick RN * Question Answer Date of Assessment Author 1. Wish to be (Past 1 Month) No 025 8:00 PM EDT Elena Patrick RN 2. Non-Specific Active Suici arnaldo Thoughts (Past 1 Month) No 05/31/2025 8:00 PM EDT Sandra Patrick RN 6. Suicidal Behavior (Lifetime) No 5 8:00 PM EDT Elena Patrick RN documented as of this encounter Plan of Treatment Upcoming Encounters Date Type Department Care Team (Late st Contact Info) Description 06/25/2025 9:45 AM EDT [facility] [address] [place] [address] Jose C Nicholson MD [address] [place] [address] 08/07/2025 12:20 PM EST Appointment [facility] Radiology [address] [place] [address] 08/07/2025 1:40 PM EST Office Visit [place] [facility] [address] 5th [address] [place] [address] Cedrick Franz MD [address] [facility] [address] [place] [address] documented as of this encounter Visit Diagnoses Not on filedocumented in this encounter Additional Health Concerns Assessment Noted Time A fall risk assessment has been complete d for the patient 05/21/2025 9:30 AM EDT A Body Mass Index follow-up plan has been documented for the patient 06/07/2025 11:45 AM EDT documented as of this encounter Care Teams Heel Shaper Relationship Specialty Start Date End Date Edwardo Sheehan MD [address] [place] [address] PCP - General 12/19/22 Jose R Umana MD 1210 [facility] [address] [place] [address] Referring Physician Cardiology 01/23/25 Kevin Mancera MD [address] [place] [address] [address] [place] [address] Referring Physician 01/31/25 documented as of this encounter
--- OUTSIDE RECORDS SUMMARY | 2025-06-16 09:07 | XMS_ITS | Encounter Summary ---
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) Kevin Mancera MD [address] [place] [address] Phone: tel: fax: [facility] [address] [facility] 5th Floor [address] [place] [address] Phone: tel: fax: Referral ID Status Reason Start Date Expiration Date V isits Requested Visits Authorized [id number] Closed Specialty Services Required 01/02/2025 07/04/2026 1 1 Encounter Details Date Type Department Care Team (Late st Contact Info) Description 01/02/2025 [facility] [address] [place] [address] Kevin Mancera MD [address] [place], [place] [id number] Aneurysm of descending thoracic aorta without rupture [...] Description 06/25/2025 9:45 AM EDT Office Visit [facility] Cardiothoracic [address], [address] [place] [address] Jose C Nicholson MD [address] [facility] [address] [place] [address] 08/07/2025 12:20 PM EST Appointment [facility] Radiology [address] [place] [address] 08/07/2025 1:40 PM EST Office Visit [facility] Comprehensive Vascular Clinic [address] [facility] 5th Floor [address] [place] [address] Cedrick Franz MD 0 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
--- OUTSIDE RECORDS SUMMARY | 2025-06-16 09:07 | XMS_ITS | Encounter Summary ---
Author Organization Healthcare Address [address] [place] [address] Care Team Providers Care Construction Field Engineer Name Role Phone Edwardo Sheehan MD Primary Care Provider [phone] Jose R Umana MD Unavailable [phone] Kevin Mancera MD Unavailable [phone] Encounter Details Date Type Department Care Team (Latest Contact Info) Description 05/21/2025 Travel Social History Tobacco Use Types Packs/Day [...] declined 03/14/2025 How often do you attend yazidism or synagogue serv ices? Patient declined 03/14/2025 Do you belong to any clubs o r organizations such as yazidism groups, unions, fraternal or athletic groups, or [...] drinks on one occasion? Patient declined 03/14/2025 [facility] Occupat ional Health - Occupational Stress [...] Description 06/25/2025 9:45 AM EDT Office Visit [facility] Cardiothoracic [address] [facility] [address] [place] [address] Jose C Nicholson MD [address] [facility] [address] [place] [address] 08/07/2025 12:20 PM EST Appointment [facility] Radiology [address] [place] [address] 08/07/2025 1:40 PM EST Office Visit [facility] [address] [facility] 5th Floor [address] [place] [address] Cedrick Franz MD [address] [facility] [address] [place] [address] documented as of this encounter Visit Diagnoses Not on filedocumented in this encounter Additional Health Concerns Assessment Noted Time A fall risk assessment has been complete d for the patient 05/21/2025 9:30 AM EDT A Body Mass Index follow-up plan has been documented for the patient 05/21/2025 10:10 AM EDT documented as of this encounter Care Teams Construction Field Engineer Relationship Specialty Start Date End Date Edwardo Sheehan MD [address] [place] [address] PCP - General 12/19/22 Jose R Umana MD 1210 [facility] [address] [place] [address] Referring Physician Cardiology 01/23/25 Kevin Mancera MD [facility] [address] [place] [address] Referring Physician 01/31/25 documented as of this encounter
--- OUTSIDE RECORDS SUMMARY | 2025-06-16 09:07 | XMS_ITS | Encounter Summary ---
Author Organization Healthcare Address [address] [place] [address] Care Team Providers Care Director Motion Picture Name Role Phone Edwardo Sheehan MD Primary Care Provider [phone] Jose R Umana MD Unavailable [phone] Kevin Mancera MD Unavailable [phone] Encounter Details Date Type Department Care Team (Late Contact Info) Description 12/26/2024 Orders Only External Location [address] [place] [address] Provider, External Social History Tobacco Use Types Packs/Day Years Used Date Smoking Tobacco: Unknown Comments No Sex and Gender Information Value Date Recorded Sex Assigned at Not on file Legal Sex Female 7:38 PM EDT Gender Identity Not on file Sexual Orientation Not on file documented as of this encounter Plan of Treatment Upcoming Encounters Date Type Department Care Team (Late Contact Info) Description 06/25/2025 9:45 AM EDT Office Visit [facility] Cardiothoracic [address], [facility] [address] [place] [address] Jose C Nicholson MD [address] [facility] [address] [place] [address] 08/07/2025 12:20 PM EST Appointment [facility] Radiology [address] [place] [address] 08/07/2025 1:40 PM EST Office Visit [facility] Comprehensive Vascular Clinic [address] 5th Floor [address] [place] [address] Cedrick Franz MD [address] [facility] [address] [place] [address] documented as of this encounter [...] on filedocumented in this encounter Care Teams Director Motion Picture Relationship Specialty Start Date End Date Edwardo Sheehan MD [address] [place] [address] PCP - General 12/19/22 Jose R Umana MD 1210 [facility] [address] [place], [place] [address] Referring Physician Cardiology 01/23/25 Kevin Mancera MD [address] [place] [address] Referring Physician 01/31/25 documented as of this encounter
--- OUTSIDE RECORDS SUMMARY | 2025-06-16 09:07 | XMS_ITS | Encounter Summary ---
Author Organization Healthcare Address [address] [place] [address] Care Team Providers Care Clerical Administrator Name Role Phone Edwardo Sheehan MD Primary Care Provider [phone] Jose R Umana MD Unavailable [phone] Kevin Mancera MD Unavailable [phone] Encounter Details Date Type Department Care Team (Latest Contact Info) Description 06/04/2025 Travel Social History Tobacco Use Types Packs/Day [...] How often do you attend chur or voodoo services? Patient unable to answer 05/30/2025 Do you belong to any clubs o r organizations such as christian groups, unions, fraternal or athletic groups, or [...] and heating? Patient unable to answer 05/30/2025 [facility] of Occupat ional Health - Occupational [...] any time in the past 12 m [facility], were you homeless or living in a custodial (including now)? No 05/30/2025 [facility] Utilities Answer Date Recorded In the [...] Date of Assessment Author No Risk Indicated 06/04/2025 8:00 AM EDT Russ Hernandez RN * Question Answer Date of Assessment Author 1. Wish to be (Past 1 Month) No 025 8:00 AM EDT Russ Hernandez RN 2. Non-Specific Active Suici arnaldo Thoughts (Past 1 Month) No 06/04/2025 8:00 AM EDT Lauren Hernandez RN 6. Suicidal Behavior (Lifetime) No 5 8:00 AM EDT Russ Hernandez RN documented as of this encounter Plan of Treatment Upcoming Encounters Date Type Department Care Team (Late st Contact Info) Description 06/25/2025 9:45 AM EDT [facility] [address] [place] [address] Jose C Nicholson MD [address] [place] [address] 08/07/2025 12:20 PM EST Appointment [facility] Radiology [address] [place] [address] 08/07/2025 1:40 PM EST [facility] Visit [facility] [address] 5th [address] [place] [address] Cedrick Franz MD [address] [facility] [address] [place] [address] documented as of this encounter Visit Diagnoses Not on filedocumented in this encounter Additional Health Concerns Assessment Noted Time A fall risk assessment has been complete d for the patient 05/21/2025 9:30 AM EDT A Body Mass Index follow-up plan has been documented for the patient 06/07/2025 11:45 AM EDT documented as of this encounter Care Teams Clerical Administrator Relationship Specialty Start Date End Date Edwardo Sheehan MD [address] [place] [address] PCP - General 12/19/22 Jose R Umana MD 1210 [facility] [address] [place] [address] Referring Physician Cardiology 01/23/25 Kevin Mancera MD [facility] [address] [place] [address] Referring Physician 01/31/25 documented as of this encounter
--- OUTSIDE RECORDS SUMMARY | 2025-06-16 09:07 | XMS_ITS | Encounter Summary ---
Author Organization Healthcare Address [address] [place] [address] Care Team Providers Care Electrical Sign Servicer Name Role Phone Edwardo Sheehan MD Primary Care Provider [phone] Jose R Umana MD Unavailable [phone] Kevin Mancera MD Unavailable [phone] Encounter Details Date Type Department Care Team (Latest Contact Info) Description 06/06/2025 Travel Social History Tobacco Use Types Packs/Day [...] any clubs o r organizations such as latter-day groups, unions, fraternal or athletic groups, or [...] and heating? Patient unable to answer 05/30/2025 [facility] Occupat ional Health - Occupational Stress [...] any time in the past 12 m [facility], were you homeless or living in a senior living (including now)? No 05/30/2025 [facility] Utilities Answer Date Recorded In [...] Date of Assessment Author No Risk Indicated 06/06/2025 8:00 AM EDT Ginny Damon, RN * Question Answer Date of Assessment Author 1. Wish to be (Past 1 Month) No 025 8:00 AM EDT Ginny Damon, RN 2. Non-Specific Active Suici arnaldo Thoughts (Past 1 Month) No 06/06/2025 8:00 AM EDT Ginny Damon , RN 6. Suicidal Behavior (Lifetime) No 5 8:00 AM EDT Ginny Damon, RN documented as of this encounter Plan of Treatment Upcoming Encounters Date Type Department Care Team (Late st Contact Info) Description 06/25/2025 9:45 AM EDT Office Visit [facility] [address], [address] [place] [address] Jose C Nicholson MD [address] [place] [address] 08/07/2025 12:20 PM EST Appointment [facility] Rad[facility] [address] [place] [address] 08/07/2025 1:40 PM EST Office Visit [place] [facility] [address] 5th Floor [address], [address] [place] [address] Cedrick Franz MD [address] [facility] [address] [place] [address] documented as of this encounter Visit Diagnoses Not on filedocumented in this encounter Additional Health Concerns Assessment Noted Time A fall risk assessment has been complete d for the patient 05/21/2025 9:30 AM EDT A Body Mass Index follow-up plan has been documented for the patient 06/07/2025 11:45 AM EDT documented as of this encounter Care Teams Electrical Sign Servicer Relationship Specialty Start Date End Date Edwardo Sheehan MD [address] [place] [address] PCP - General 12/19/22 Jose R Umana MD 1210 [facility] [address] [place] [address] Referring Physician Cardiology 01/23/25 Kevin Mancera MD [address] [place] [address] [address] [place] [address] Referring Physician 01/31/25 documented as of this encounter
--- OUTSIDE RECORDS SUMMARY | 2025-06-16 09:07 | XMS_ITS | Encounter Summary ---
Author Organization Healthcare Address [address] [place] [address] Care Team Providers Care Access Manager Name Role Phone Edwardo Sheehan MD Primary Care Provider [phone] Jose R Umana MD Unavailable [phone] Kevin Mancera MD Unavailable [phone] Encounter Details Date Type Department Care Team (Late Contact Info) Description 12/26/2024 Orders Only External Location [address] [place] [address] Provider, External Social History Tobacco [...] Description 06/25/2025 9:45 AM EDT [facility] [address], [facility] [address] [place] [address] Jose C Nicholson MD [address] [facility] [address] [place] [address] 08/07/2025 12:20 PM EST Appointment [facility] Radiology [address] [place] [address] 08/07/2025 1:40 PM EST [facility] [address] 5th Floor Wing [address], [address] [place] [address] Cedrick Franz MD [address] [facility] [address] [place] [address] documented as of this encounter [...] on filedocumented in this encounter Care Teams Access Manager Relationship Specialty Start Date End Date Edwardo Sheehan MD [address] [place] [address] PCP - General 12/19/22 Jose R Umana MD 1210 [facility] [address] [place], [place] [address] Referring Physician Cardiology 01/23/25 Kevin Mancera MD [address] [place] [address] Referring Physician 01/31/25 documented as of this encounter
--- OUTSIDE RECORDS SUMMARY | 2025-06-16 09:07 | XMS_ITS | Encounter Summary ---
Author Organization Healthcare Address [address] [place] [address] Care Team Providers Care Concrete Paver Name Role Phone Edwardo Sheehan MD Primary Care Provider [phone] Jose R Umana MD Unavailable [phone] Kevin Mancera MD Unavailable [phone] Encounter Details Date Type Department Care Team (Latest Contact Info) Description 05/27/2025 Travel Social History Tobacco Use Types Packs/Day [...] declined 03/14/2025 How often do you attend nondenominational or temple serv ices? Patient declined 03/14/2025 Do you belong to any clubs o r organizations such as nondenominational groups, unions, fraternal or athletic groups, or [...] drinks on one occasion? Patient declined 03/14/2025 [facility] Occupat ional Health - Occupational [...] Description 06/25/2025 9:45 AM EDT Office Visit [facility] Cardiothoracic [address] [facility] [address] [place] [address] Jose C Nicholson MD [address] [facility] [address] [place] [address] 08/07/2025 12:20 PM EST Appointment [facility] Radiology [address] [place] [address] 08/07/2025 1:40 PM EST Office Visit [facility] [address] [facility] 5th Floor Wing D, [address] [place] [address] Cedrick Franz MD [address] [facility] [address] [place] [address] documented as of this encounter Visit Diagnoses Not on filedocumented in this encounter Additional Health Concerns Assessment Noted Time A fall risk assessment has been complete d for the patient 05/21/2025 9:30 AM EDT A Body Mass Index follow-up plan has been documented for the patient 06/07/2025 11:45 AM EDT documented as of this encounter Care Teams Concrete Paver Relationship Specialty Start Date End Date Edwardo Sheehan MD [address] [place] [address] PCP - General 12/19/22 Jose R Umana MD 12[address] [facility] [address] [place] [address] Referring Physician Cardiology 01/23/25 Kevin Mancera MD [facility] [address] [place] [address] Referring Physician 01/31/25 documented as of this encounter
--- OUTSIDE RECORDS SUMMARY | 2025-06-16 09:07 | XMS_ITS | Encounter Summary ---
Author Organization Healthcare Address [address] [place] [address] Care Team Providers Care Curtain Drier Name Role Phone Edwardo Sheehan MD Primary Care Provider [phone] Jose R Umana MD Unavailable [phone] Kevin Mancera MD Unavailable [phone] Encounter Details Date Type Department Care Team (Latest Contact Info) Description 05/26/2025 Travel Social History Tobacco Use Types Packs/Day [...] declined 03/14/2025 How often do you attend presybeterian or confucianism serv ices? Patient declined 03/14/2025 Do you belong to any clubs o r organizations such as presybeterian groups, unions, fraternal or athletic groups, or [...] drinks on one occasion? Patient declined 03/14/2025 [facility] Occupat ional Health - Occupational Stress Questionnaire [...] Description 06/25/2025 9:45 AM EDT Office Visit [facility] Cardiothoracic [address] [facility] [address] [place] [address] Jose C Nicholson MD [address] [facility] [address] [place] [address] 08/07/2025 12:20 PM EST Appointment [facility] Radiology [address] [place] [address] 08/07/2025 1:40 PM EST Office Visit [facility] [address] [facility] 5th Floor Wing D, [address] [place] [address] Cedrick Franz MD [address] [facility] [address] [place] [address] documented as of this encounter Visit Diagnoses Not on filedocumented in this encounter Additional Health Concerns Assessment Noted Time A fall risk assessment has been complete d for the patient 05/21/2025 9:30 AM EDT A Body Mass Index follow-up plan has been documented for the patient 05/21/2025 10:10 AM EDT documented as of this encounter Care Teams Curtain Drier Relationship Specialty Start Date End Date Edwardo Sheehan MD [address] [place] [address] PCP - General 12/19/22 Jose R Umana MD 1210 [facility] [address] [place] [address] Referring Physician Cardiology 01/23/25 Kevin Mancera MD [facility], [facility] [address] [place] [address] Referring Physician 01/31/25 documented as of this encounter
--- OUTSIDE RECORDS SUMMARY | 2025-06-16 09:07 | XMS_ITS | Encounter Summary ---
Author Organization Healthcare Address [address] [place] [address] Care Team Providers Care Soot Blower Name Role Phone Edwardo Sheehan MD Primary Care Provider [phone] Jose R Umana MD Unavailable [phone] Kevin Mancera MD Unavailable [phone] Encounter Details Date Type Department Care Team (Latest Contact Info) Description 06/05/2025 Travel Social History Tobacco Use Types Packs/Day [...] How often do you attend chur or denominational services? Patient unable to answer 05/30/2025 Do you belong to any clubs o r organizations such as baptism groups, unions, fraternal or athletic groups, or [...] and heating? Patient unable to answer 05/30/2025 [facility] of Occupat ional Health - Occupational [...] any time in the past 12 m [facility], were you homeless or living in a nursing home (including now)? No 05/30/2025 [facility] Utilities Answer Date Recorded In the past [...] Date of Assessment Author No Risk Indicated 06/05/2025 8:00 AM EDT Selin Daily RN * Question Answer Date of Assessment Author 1. Wish to be (Past 1 Month) No 06/05/2025 8:00 AM EDT Selin Daily, RN 2. Non-Specific Active Suicidal Thoughts (Past 1 Month) No 06/05/2025 12:00 AM EDT Rosaline Gibbons, ABHILASH 6. Suicidal Behavior (Lifetime) No 06/05/2025 12:00 AM EDT Rosaline Gibbons, RN documented as of this encounter Plan of Treatment Upcoming Encounters Date Type Department Care Team (Late st Contact Info) Description 06/25/2025 9:45 AM EDT Office Visit [facility] [address], [address] [place] [address] Jose C Nicholson MD [address] [place] [address] 08/07/2025 12:20 PM EST Appointment [facility] Radiology [address] [place] [address] 08/07/2025 1:40 PM EST Office Visit [facility] [address] 5th Floor [address], [address] [place] [address] Cedrick Franz MD [address] [facility] [address] [place] [address] documented as of this encounter Visit Diagnoses Not on filedocumented in this encounter Additional Health Concerns Assessment Noted Time A fall risk assessment has been complete d for the patient 05/21/2025 9:30 AM EDT A Body Mass Index follow-up plan has been documented for the patient 06/07/2025 11:45 AM EDT documented as of this encounter Care Teams Soot Blower Relationship Specialty Start Date End Date Edwardo Sheehan MD [address] [place] [address] PCP - General 12/19/22 Jose R Umana MD 1210 [facility] [address] [place] [address] Referring Physician Cardiology 01/23/25 Kevin Mancera MD [address] [place] [address] [address] [place] [address] Referring Physician 01/31/25 documented as of this encounter
--- OUTSIDE RECORDS SUMMARY | 2025-06-16 09:07 | XMS_ITS | Encounter Summary ---
Author Organization Healthcare Address [address] [place] [address] Care Team Providers Care Bar Tender Name Role Phone Edwardo Sheehan MD Primary Care Provider [phone] Jose R Umana MD Unavailable [phone] Kevin Mancera MD Unavailable [phone] Encounter Details Date Type Department Care Team (Late st Contact Info) Description 11/29/2024 Orders Only External Location [address] [place] [address] Jose R Umana MD [address] [place] [address] Social History Tobacco Use Types [...] Description 06/25/2025 9:45 AM EDT Office Visit [facility] [address], [address] [place] [address] Jose C Nicholson MD [address] [place] [address] 08/07/2025 12:20 PM EST Appointment [facility] Radiology [address] [place] [address] 08/07/2025 1:40 PM EST Office Visit [facility] [address] 5th Floor [address], [address] [place] [address] Cedrick Franz MD [address] [facility] [address] [place] [address] documented as of this encounter Procedures Procedure [...] on filedocumented in this encounter Care Teams Bar Tender Relationship Specialty Start Date End Date Edwardo Sheehan MD [address] [place] [address] PCP - General 12/19/22 Jose R Umana MD 1210 [facility] [address] [place] [address] Referring Physician Cardiology 01/23/25 Kevin Mancera MD [address] [place] [address] Referring Physician 01/31/25 documented as of this encounter
--- OUTSIDE RECORDS SUMMARY | 2025-06-16 09:07 | XMS_ITS | Encounter Summary ---
Author Organization Healthcare Address [address] [place] [address] Care Team Providers Care Collar Trimmer Name Role Phone Edwardo Sheehan MD Primary Care Provider [phone] Jose R Umana MD Unavailable [phone] Kevin Mancera MD Unavailable [phone] Encounter Details Date Type Department Care Team (Late Contact Info) Description 11/29/2024 Orders Only External Location [address] [place] [address] Provider, External Social History Tobacco [...] Description 06/25/2025 9:45 AM EDT Office Visit [facility] Cardiothoracic [address], [facility] [address] [place] [address] Jose C Nicholson MD [address] [facility] [address] [place] [address] 08/07/2025 12:20 PM EST Appointment [facility] Radiology [address] [place] [address] 08/07/2025 1:40 PM EST Office Visit [facility] Clinic [address] 5th Floor [address] [place] [address] Cedrick Franz MD [address] [place] [address] documented as of this encounter [...] on filedocumented in this encounter Care Teams Collar Trimmer Relationship Specialty Start Date End Date Edwardo Sheehan MD [address] [place] [address] PCP - General 12/19/22 Jose R Umana MD 1210 [facility] [address] [place] [address] Referring Physician Cardiology 01/23/25 Kevin Mancera MD [address] [place] [address] Referring Physician 01/31/25 documented as of this encounter
--- OUTSIDE RECORDS SUMMARY | 2025-06-16 09:07 | XMS_ITS | Encounter Summary ---
Author Organization Healthcare Address [address] [place] [address] Care Team Providers Care Dashboard Developer Name Role Phone Edwardo Sheehan MD Primary Care Provider [phone] Jose R Umana MD Unavailable [phone] Kevin Mancera MD Unavailable [phone] Encounter Details Date Type Department Care Team (Late Contact Info) Description 12/26/2024 Orders Only External Location [address] [place] [address] Provider, External Social History Tobacco [...] Description 06/25/2025 9:45 AM EDT Office Visit [facility] Cardiothoracic [address], [facility] [address] [place] [address] Jose C Nicholson MD [address] [facility] [address] [place] [address] 08/07/2025 12:20 PM EST Appointment [facility] Radiology [address] [place] [address] 08/07/2025 1:40 PM EST Office Visit [facility] [address] 5th Floor [address], [address] [place] [address] Cedrick Franz MD [address] [facility] [address] [place] [address] documented as of this encounter [...] on filedocumented in this encounter Care Teams Dashboard Developer Relationship Specialty Start Date End Date Edwardo Sheehan MD [address] [place] [address] PCP - General 12/19/22 Jose R Umana MD 1210 [facility] [address] [place], [place] [address] Referring Physician Cardiology 01/23/25 Kevin Mancera MD [address] [place] [address] Referring Physician 01/31/25 documented as of this encounter
--- OUTSIDE RECORDS SUMMARY | 2025-06-16 09:07 | XMS_ITS | Patient Health Record ---
Author Organization [facility] Physician Kathy jackson Billing Info Address [address] [place] [address] Support Name Relationship Address Phone Joi Marcial Guarantor Unknown [phone] Reason For Referral No Information Medications Medication [...] Risk Notes Problem Counseling about tobacco use ([id number]) Tobacco abuse counseling (V65.42) Active confirmed Plan Of Treatment No Information Medical (General) History Medical History History ICD Code Hypertension Surgical History Surgery Date(Month/Year) GRACE Cholecystectomy Back sx (discectomy - lumbar) Hospitalization History Reason Date(Month/Year) Childbirth Back surgery
--- OUTSIDE RECORDS SUMMARY | 2025-06-16 09:09 | XMS_ITS | Encounter Summary ---
Author Organization Healthcare Address [address] [place] [address] Care Team Providers Care Ribbon Sweatband Operator Name Role Phone Edwardo Sheehan MD Primary Care Provider [phone] Jose R Umana MD Unavailable [phone] Kevin Mancera MD Unavailable [phone] Encounter Details Date Type Department Care Team (Latest Contact Info) Description 05/29/2025 Travel Social History Tobacco Use Types Packs/Day [...] How often do you attend chur or jew services? Patient unable to answer 05/30/2025 Do you belong to any clubs o r organizations such as religious groups, unions, fraternal or athletic groups, or [...] and heating? Patient unable to answer 05/30/2025 [facility] of Occupat ional Health - [...] any time in the past 12 m [facility], were you homeless or living in a assisted (including now)? No 05/30/2025 [facility] Utilities Answer Date Recorded In the [...] Description 06/25/2025 9:45 AM EDT Office Visit [facility] Cardiothoracic [address], [facility] [address] [place] [address] Jose C Nicholson MD [address] [facility] [address] [place] [address] 08/07/2025 12:20 PM EST Appointment [facility] Radiology [address] [place] [address] 08/07/2025 1:40 PM EST Office Visit [facility] Comprehensive Vascular Clinic [address] [facility] 5th Floor [address], [address] [place] [address] Cedrick Franz MD [address] [facility] [address] [place] [address] documented as of this encounter Visit Diagnoses Not on filedocumented in this encounter Additional Health Concerns Assessment Noted Time A fall risk assessment has been complete d for the patient 05/21/2025 9:30 AM EDT A Body Mass Index follow-up plan has been documented for the patient 06/07/2025 11:45 AM EDT documented as of this encounter Care Teams Ribbon Sweatband Operator Relationship Specialty Start Date End Date Edwardo Sheehan MD [address] [place] [address] PCP - General 12/19/22 Jose R Umana MD 1210 [facility] [address] [place] [address] Referring Physician Cardiology 01/23/25 Kevin Mancera MD [facility] [address] [place] [address] Referring Physician 01/31/25 documented as of this encounter
--- OUTSIDE RECORDS SUMMARY | 2025-06-16 09:09 | XMS_ITS | Encounter Summary ---
Author Organization Healthcare Address [address] [place] [address] Care Team Providers Care Automotive Designer Name Role Phone Edwardo Sheehan MD Primary Care Provider [phone] Jose R Umana MD Unavailable Kevin Mancera MD Unavailable Encounter Details Date Type Department Care Team (Latest Contact Info) Description 05/28/2025 Travel Social History Tobacco Use Types Packs/Day [...] declined 03/14/2025 How often do you attend buddhism or adventist serv ices? Patient declined 03/14/2025 Do you belong to any clubs o r organizations such as buddhism groups, unions, fraternal or athletic groups, or [...] drinks on one occasion? Patient declined 03/14/2025 [facility] Occupat ional Health - Occupational [...] Description 06/25/2025 9:45 AM EDT Office Visit [facility] Cardiothoracic [address] [facility] [address] [place] [address] Jose C Nicholson MD [address] [facility] [address] [place] [address] 08/07/2025 12:20 PM EST Appointment [facility] Radiology [address] [place] [address] 08/07/2025 1:40 PM EST Office Visit [facility] Comprehensive Vascular Clinic [address] [facility] 5th Floor [address] [place] [address] Cedrick Franz MD [address] [facility] [address] [place] [address] documented as of this encounter Visit Diagnoses Not on filedocumented in this encounter Additional Health Concerns Assessment Noted Time A fall risk assessment has been complete d for the patient 05/21/2025 9:30 AM EDT A Body Mass Index follow-up plan has been documented for the patient 06/07/2025 11:45 AM EDT documented as of this encounter Care Teams Automotive Designer Relationship Specialty Start Date End Date Edwardo Sheehan MD [address] [place] [address] PCP - General 12/19/22 Jose R Umana MD 1210 [facility] [address] [place] [address] Referring Physician Cardiology 01/23/25 Kevin Mancera MD [facility] [address] [place] [address] Referring Physician 01/31/25 documented as of this encounter
--- OUTSIDE RECORDS SUMMARY | 2025-06-16 09:09 | XMS_ITS | Encounter Summary ---
Author Organization Healthcare Address [address] [place] [address] Care Team Providers Care Veneer Patcher Name Role Phone Edwardo Sheehan MD Primary Care Provider [phone] Jose R Umana MD Unavailable [phone] Kevin Mancera MD Unavailable [phone] Encounter Details Date Type Department Care Team (Latest Contact Info) Description 05/30/2025 Travel Social History Tobacco Use Types Packs/Day [...] How often do you attend chur or yarsani services? Patient unable to answer 05/30/2025 Do you belong to any clubs o r organizations such as mandaen groups, unions, fraternal or athletic groups, or [...] and heating? Patient unable to answer 05/30/2025 [facility] - Occupational [...] any time in the past 12 m [facility], were you homeless or living in a penitentiary (including now)? No 05/30/2025 [facility] Utilities Answer Date Recorded In [...] answer 05/30/2025 2:43 PM EDT Merary Abbott documented as of this encounter Plan of Treatment Upcoming Encounters Date Type Department Care Team (Late st Contact Info) Description 06/25/2025 9:45 AM EDT Office Visit [facility] [address], [facility] [address] [place] [id number] Jose C Nicholson MD [address] [place] [address] 08/07/2025 12:20 PM EST Appointment [facility] [address] [place] [address] 08/07/2025 1:40 PM EST Office [facility] [address] [place] [id number] Cedrick Franz MD [address] [facility] [address] [place] [phone] documented as of this encounter Visit Diagnoses Not on filedocumented in this encounter Additional Health Concerns Assessment Noted Time A fall risk assessment has been complete d for the patient 05/21/2025 9:30 AM EDT A Body Mass Index follow-up plan has been documented for the patient 06/07/2025 11:45 AM EDT documented as of this encounter Care Teams Veneer Patcher Relationship Specialty Start Date End Date Edwardo Sheehan MD [address] [place] [address] PCP - General 12/19/22 Jose R Umana MD [address] [facility] [address] [place] [address] Referring Physician Cardiology 01/23/25 Kevin Mancera MD [address] [facility] [address] [place] [address] Referring Physician 01/31/25 documented as of this encounter
== END 2025-06-12 23:59 ==
LOC: LAB.DROPOF 06-16 08:57
PROVIDERS: PCP Nurse Practitioner; Visit Provider Nurse Practitioner
DX: S90.829A Blister (nonthermal), unspecified foot, initial encounter (principal)
CPT/HCPCS: 87070; 87205